=== PATIENT | male | born 1970 | race Caucasian/White ===

== ENCOUNTER 2022-03-11 07:17 | Inpatient (IN) | payer OTHER, SELFPAY ==
[2022-03-11] VITALS (16 sets, daily range): BP systolic 121–163; BP diastolic 51–84; PULSE 75–113; RESP 14–20; TEMP 36.2–37; O2SAT 92–100; BMI 36.1
--- NOTE | ~2022-03-11 | CT_ITS ---
EXAMINATION: CT ABDOMEN AND PELVIS WITHOUT CONTRAST CLINICAL INFORMATION: Renal failure COMPARISON: None TECHNIQUE: Multidetector volumetric imaging was performed from the superior aspect of the liver through the pubic symphysis. Sagittal and coronal reformatted images were obtained on the technologist's workstation. This CT examination was performed using dose optimization techniques as appropriate, variously including the following: *Automated exposure control *Adjustment of mA and/or kV according to patient size (this includes techniques or standardized protocols for targeted exams where dose is matched to indication/reason for exam; i.e. extremities or head) *Use of iterative reconstruction technique DLP: 976 mGy-cm FINDINGS: LUNG BASES: The lung bases are clear. The heart size is normal. LIVER, GALLBLADDER, AND BILIARY TREE: The liver is normal in size, shape, and attenuation. No focal hepatic lesion or biliary ductal dilatation is present. The gallbladder is contracted and not visualized. PANCREAS: Unremarkable. SPLEEN: Unremarkable. ADRENAL GLANDS: Unremarkable. KIDNEYS AND URETERS: The kidneys are normal in size, shape, and attenuation. No hydronephrosis, hydroureter, or calculi seen. No perinephric stranding. BLADDER: The bladder is significantly distended and extending to the level of umbilicus. No obstructive etiology seen. GASTROINTESTINAL TRACT: Scattered stool, gas and contrast seen in the colon without significant distention. The small bowel loops are normal caliber. The appendix is normal caliber. ABDOMINAL WALL: Subtle deformity seen along the left midabdomen from previous intervention. There is a small umbilical hernia containing fat. LYMPH NODES: There are numerous bilateral inguinal prominent lymph nodes with the largest right inguinal lymph node measuring 2.5 cm VASCULAR: Unremarkable. PELVIC VISCERA: There is mild fat stranding and thickening of the pelvic diaphragm. In addition, there is diffuse induration involving posterior rectal wall and right para midline perianal soft tissues. The prostate gland is normal size with scattered central gland calcifications. OSSEOUS STRUCTURES: No aggressive lytic or sclerotic process seen. CT/CT abdomen pelvis wo IV con IMPRESSION: 1. Distended urinary bladder of unknown etiology. Normal prostate gland with central gland calcification. 2. Perianal and perirectal soft tissue wall thickening extending in the para midline gluteal soft tissues. No gas, air fluid level or ulceration seen. Fleischner guidelines were followed.
[2022-03-11 08:10] LABS: Hematocrit 29.9 % (42.0-52.0); Hemoglobin 10.5 g/dl (14.0-18.0); Mean Corpuscular HGB Conc 35.1 g/dl (31.0-36.0); Mean Corpuscular Hemoglobin 30.5 pg (27.0-33.0); Mean Corpuscular Volume 86.9 fL (80.0-98.0); Mean Platelet Volume 11.5 fL (9.4-12.4); Platelet Count 241 X10*3/uL (160-400); Red Blood Count 3.44 X10*6/uL (4.60-5.80); Red Cell Distribution Width 11.5 % (11.0-16.0); White Blood Count 24.6 X10*3/uL (4.8-10.8)
--- NOTE | 2022-03-11 08:14 | ED.GENADULT ---
HPI - General Adult General Chief complaint: General Medical Stated complaint: Hemorrhoid Time Seen by Provider: 03/11/22 07:28 History of Present Illness HPI narrative: Patient is a 51-year-old male presented today with having swelling pain to the right gluteal area. Patient from home. No history of diabetes. No significant past medical history in the past. Related Data Home Medications Medication Instructions Recorded Confirmed multivitamin 1 tab PO DAILY 03/11/22 03/11/22 omega-3 fatty acids 1,000 mg PO TID 03/11/22 03/11/22 Allergies Allergy/AdvReac Type Severity Reaction Status Date / Time No Known Allergies Allergy Verified 03/11/22 07:48 Review of Systems Review of Systems: No fever no chills no chest pain or shortness breath no nausea no vomiting Yes all other systems are reviewed and are negative [facility] Past Medical History Attestation statement: The following information was validated with the patient. Social History Social History Alcohol intake: current Alcohol intake frequency: a few times a week Smoked in Last 30 Days: Yes Use of substances other than those prescribed or required for medical reasons: Yes Substance Use Type: Marijuana Advance Directives: No Advance Directives Information Provided: Yes Physical Exam ED Vital Signs: Vital Signs - 24 hr 03/11/22 07:28 03/11/22 07:32 03/11/22 07:46 Temperature 98.1 F 98.1 F 98.0 F Pulse Rate 113 H 113 H 98 Respiratory Rate 18 18 14 Blood Pressure 121/71 121/71 143/80 H Pulse Oximetry 100 100 99 Oxygen Delivery Method Room Air Room Air Room Air BMI result Body Mass Index 36.1 Appearance: Alert. Oriented X3. No acute distress. Eyes: Pupils equal, round and reactive to light. ENT: Pharynx normal. Neck: Normal inspection. Neck supple. No lymph nodes noted. No crepitus CVS: Normal heart rate and rhythm. Pulses normal. Normal S1 and S2 Respiratory: No respiratory distress. Breath sounds normal. No Wheezing. No rales Abdomen: Soft and nontender. No rigidity. No distention. good BS x4 Skin: Large area of swelling fluctuant mass noted over the right gluteal area. No anal involvement. Pus draining out from different areas. Overall size approximately 10 cm x 6 cm. With surrounding area of induration. Extremities: No lower extremity edema. Neurovascular intact to all extremities. No Lacerations. No Rash Neuro: Oriented X 3. No motor deficit. No sensory deficit. Moving all extermities. No slurred speech Medications Administered Discontinued Medications Generic Name Dose Route Start Last Admin Trade Name Freq PRN Reason Stop Dose Admin Piperacillin Sod/Tazobactam 100 mls @ 200 mls/hr 03/11/22 08:01 03/11/22 10:16 Sod 4.5 gm/ Sodium Chloride IV 03/11/22 08:30 Infused ONCE ONE Infusion Sodium Chloride 1,000 mls @ 999 mls/hr 03/11/22 08:30 03/11/22 10:17 Ns IV 03/11/22 09:30 Infused .Q1H1M NICHOLAS Infusion Insulin Human Regular 10 unit 03/11/22 09:18 03/11/22 09:45 Insulin Regular, Human 100 Unit/Ml 3 Ml Vial IVPUSH 03/11/22 09:19 10 unit ONCE ONE Administration Medical Decision Making MDM Narrative Medical decision making narrative: Patient's case discussed with surgery. Labs ordered. Dr. Valverde is down to see patient. Agree patient needs to go to OR for incision and drainage. Agree with getting CT scan of the pelvis. Currently in stable condition awaiting OR. Cultures were obtained. Will start patient on Zosyn. Patient taken to the OR for emergent surgery. Repeat electrolytes were drawn. In guarded condition. Surgeon aware patient's renal status aware patient is sugar is approximately 700 initially. Lab Data Result diagrams: 03/11/22 07:56 03/11/22 07:56 Labs: Lab Results 03/11/22 03/11/22 03/11/22 Range/Units 07:56 07:56 07:56 WBC 24.6 H (4.8-10.8) X10*3/uL RBC 3.44 L (4.60-5.80) X10*6/uL Hgb 10.5 L (14.0-18.0) g/dl Hct 29.9 L (42.0-52.0) % MCV 86.9 (80.0-98.0) fL MCH 30.5 (27.0-33.0) pg MCHC 35.1 (31.0-36.0) g/dl RDW 11.5 (11.0-16.0) % Plt Count 241 (160-400) X10*3/uL MPV 11.5 (9.4-12.4) fL Immature Gran % (Auto) Cancelled Neut % (Auto) Cancelled Lymph % (Auto) Cancelled [place] % (Auto) Cancelled Eos % (Auto) Cancelled Baso % (Auto) Cancelled Lymph # (Auto) Cancelled [place] # (Auto) Cancelled Eos # (Auto) Cancelled Baso # (Auto) Cancelled Abs Immat Gran (auto) Cancelled Absolute Neuts (auto) Cancelled Absolute Nucleated RBC 0.000 (0.0-0.012) X10*3/uL Nucleated RBC % (auto) 0.0 (0.0-0.2) /100WBC Neutrophils % (Manual) 86 H (45-73) % Band Neutrophils % 6 H (3-5) % Lymphocytes % (Manual) 3 L (20-40) % Monocytes % (Manual) 4 (2-11) % Metamyelocytes % 1 % Abs Neuts (Manual) 22.6 H (2.0-8.3) X10*3/uL Lymphocytes # (Manual) 0.7 L (1.2-4.9) X10*3/uL Monocytes # (Manual) 1.0 (0.1-1.2) X10*3/uL Metamyelocytes # 0.2 X10*3/uL Dohle Bodies PRESENT Platelet Estimate NORMAL (NORMAL) Plt Morphology Comment NORMAL RBC Morphology NOTED Polychromasia 1+ (0-2) /OIF [place] Cells 1+ (0-2) /OIF Sodium 124 L (135-145) mmol/L Potassium 4.6 (3.3-5.1) mmol/L Chloride 93 L (96-108) mmol/L Carbon Dioxide 17 L (22-29) mmol/L Anion Gap 19 (12-20) BUN 33 H (9-16) mg/dL Creatinine 1.98 H (0.5-1.4) mg/dL Estim Creat Clear Calc 53.7 Estimated GFR 36 Random Glucose 693 H* (60-115) mg/dL Estimat Average Glucose 280 mg/dL Hemoglobin A1c % 11.4 % Calcium 8.0 L (8.4-10.2) mg/dL COVID-19 (PERRY) (Negative) COVID-19 Clin Com 03/11/22 Range/Units 08:23 WBC (4.8-10.8) X10*3/uL RBC (4.60-5.80) X10*6/uL Hgb (14.0-18.0) g/dl Hct (42.0-52.0) % MCV (80.0-98.0) fL MCH (27.0-33.0) pg MCHC (31.0-36.0) g/dl RDW (11.0-16.0) % Plt Count (160-400) X10*3/uL MPV (9.4-12.4) fL Immature Gran % (Auto) Neut % (Auto) Lymph % (Auto) [place] % (Auto) Eos % (Auto) Baso % (Auto) Lymph # (Auto) [place] # (Auto) Eos # (Auto) Baso # (Auto) Abs Immat Gran (auto) Absolute Neuts (auto) Absolute Nucleated RBC (0.0-0.012) X10*3/uL Nucleated RBC % (auto) (0.0-0.2) /100WBC Neutrophils % (Manual) (45-73) % Band Neutrophils % (3-5) % Lymphocytes % (Manual) (20-40) % Monocytes % (Manual) (2-11) % Metamyelocytes % % Abs Neuts (Manual) (2.0-8.3) X10*3/uL Lymphocytes # (Manual) (1.2-4.9) X10*3/uL Monocytes # (Manual) (0.1-1.2) X10*3/uL Metamyelocytes # X10*3/uL Dohle Bodies Platelet Estimate (NORMAL) Plt Morphology Comment RBC Morphology Polychromasia /OIF [place] Cells /OIF Sodium (135-145) mmol/L Potassium (3.3-5.1) mmol/L Chloride (96-108) mmol/L Carbon Dioxide (22-29) mmol/L Anion Gap (12-20) BUN (9-16) mg/dL Creatinine (0.5-1.4) mg/dL Estim Creat Clear Calc Estimated GFR Random Glucose (60-115) mg/dL Estimat Average Glucose mg/dL Hemoglobin A1c % % Calcium (8.4-10.2) mg/dL COVID-19 (PERRY) Negative (Negative) COVID-19 Clin Com See Note Critical Care Time Critical Care Time Critical Care Time: Yes Total Critical Care Time: 40 Attestation: I have personally provided 40 minutes of critical care time exclusive of time spent on separately billable procedures. Time includes review of lab data, radiology results, discussion with consultants, and monitoring for potential decompensation. Interventions were performed as documented above Discharge Plan Discharge Clinical Impression: Abscess, Diabetes Patient Disposition: Admitted As Inpatient
[2022-03-11] MEDS: 0.9 % Sodium Chloride 1,000 ML 999 ML IV ×3 (08:29→10:46)
[2022-03-11 08:30] LABS: Band Neutrophils Percent 6 % (3-5); Lymphocytes Absolute Manual 0.7 X10*3/uL (1.2-4.9); Lymphocytes Percent Manual 3 % (20-40); Metamyelocytes Absolute 0.2 X10*3/uL; Metamyelocytes Percent 1 %; Monocytes Percent Manual 4 % (2-11); Neutrophils Absolute Manual 22.6 X10*3/uL (2.0-8.3); Neutrophils Percent Manual 86 % (45-73)
[2022-03-11 08:33] LABS: Burr Cells 1+ (0-2) /OIF; Dohle Bodies PRESENT; Platelet Estimate NORMAL (NORMAL); Platelet Morphology Comment NORMAL; Polychromasia 1+ (0-2) /OIF; RBC Morphology NOTED
--- NOTE | 2022-03-11 08:41 | P.HPGS_ITS ---
History of Present Illness History of Present Illness Date of Service: 03/11/22 <Winter Mondragon PA-C - Last Filed: 03/11/22 09:26> 03/11/22 <Yoni Valverde MD - Last Filed: 03/11/22 15:06> Chief complaint: abscess of gluteal cleft <Winter Mondragon PA-C - Last Filed: 03/11/22 09:26> Narrative: River Luque is a 51 year old healthy male who presented to the ED with complaints of buttocks pain. This started 4-5 days ago and he first noticed when it was painful to sit. He thought he had hemorrhoids and therefore had been putting desitin cream on the area. He noted a red, creamy discharge from the area. He had low grade fevers at home and had been taking ibuprofen. He came in due to the persistent pain and his work told him he needed to be evaluated. He denies previous similar episodes. He denies chills, nausea, vomiting, diarrhea or change in bowel habits. In the ED, he was found to be tachycardic with a leukocytosis of 24.6 and a large fluctuant area of the gluteal cleft. Surgery was consulted for I&D. He denies any known medical problems including diabetes. He last had adan sarah and water at 6am. Last solid intake was last night. <Winter Mondragon PA-C - Last Filed: 03/11/22 09:26> Review of Systems Constitutional: Constitutional: Denies chills, Reports fever(s) and Denies malaise <Winter Mondragon PA-C - Last Filed: 03/11/22 09:26> ENT: Denies dizziness <Winter Mondragon PA-C - Last Filed: 03/11/22 09:26> Cardiovascular: Cardiovascular: Denies chest pain, Denies palpitations and Denies dyspnea <JAVI Yo Last Filed: 03/11/22 09:26> Respiratory: Respiratory: Denies cough and Denies dyspnea <Winter Mondragon PA-C - Last Filed: 03/11/22 09:26> Gastrointestinal: Gastrointestinal: Denies change in bowel habits, Denies diarrhea, Denies nausea and Denies vomiting <Winter Mondragon PA-C Last Filed: 03/11/22 09:26> Genitourinary: Genitourinary: Denies hematuria and Denies dysuria <Winter Mondragon PA-C Last Filed: 03/11/22 09:26> Integumentary/Breasts: Skin/Breast: Denies rash <JAVI Yo Last Filed: 03/11/22 09:26> Neurologic: Denies dizziness <Winter Mondragon PA-C Last Filed: 03/11/22 09:26> Endocrine: Endocrine: Denies palpitations <Winter Mondragon PA-C Last Filed: 03/11/22 09:26> [facility] Surgical History Surgical History: Surgical History (Updated 03/11/22 @ 10:41 by Jeanie Campbell) [place] teeth removed <JAVI Yo Last Filed: 03/11/22 09:26> Social History Social History: Social History Alcohol intake: current Alcohol intake frequency: a few times a month Patient Tobacco Use Status: Former Tobacco user Quit Date: 2009 Tobacco use type: Cigarette Smoked in Last 30 Days: No Use of substances other than those prescribed or required for medical reasons: Yes Substance Use Type: Marijuana Substance Use Frequency: Weekly Are you DNR?: No Advance Directives: No Advance Directives Information Provided: Yes <JAVI Yo Last Filed: 03/11/22 09:26> Meds Allergies/Adverse reactions: Allergies Allergy/AdvReac Type Severity Reaction Status Date / Time No Known Allergies Allergy Verified 03/11/22 07:48 <JAVI Yo Last Filed: 03/11/22 09:26> Active Medications: Current Medications Sodium Chloride (Ns) 1,000 mls @ 999 mls/hr IV .Q1H1M NICHOLAS Stop: 03/11/22 09:30 Last Admin: 03/11/22 08:29 Dose: 999 mls/hr <JAVI Yo Last Filed: 03/11/22 09:26> Home medications: Home Medications Medication Instructions Recorded Confirmed Last Taken Type Tylenol 1 tab PO DAILY PRN Pain 03/11/22 03/11/22 03/11/22 06:00 History multivitamin 1 tab PO DAILY 03/11/22 03/11/22 Unknown History omega-3 fatty acids 1,000 mg PO TID 03/11/22 03/11/22 Unknown History <Winter Mondragon PA-C Last Filed: 03/11/22 09:26> Physical Exam Vital Signs: Vital Signs: Last Vital Signs Temp 98.0 F 03/11/22 07:46 Pulse 98 03/11/22 07:46 Resp 14 03/11/22 07:46 BP 143/80 H 03/11/22 07:46 Pulse Ox 99 03/11/22 07:46 O2 Del Method 03/11/22 07:46 BMI result Body Mass Index 36.1 <Winter Mondragon PA-C Last Filed: 03/11/22 09:26> Const: General: no acute distress, alert and other (appears in pain) <Winter Mondragon PA-C Last Filed: 03/11/22 09:26> Orientation/consciousness: patient oriented x3 <STUART Yo Last Filed: 03/11/22 09:26> HEENT: Head: Yes normocephalic and Yes atraumatic <STUART Yo Last Filed: 03/11/22 09:26> Eyes: Sclerae: sclerae normal <Winter Mondragon PA-C Last Filed: 03/11/22 09:26> Resp: Effort & Inspection: normal respiratory effort <Winter Mondragon PA-C Last Filed: 03/11/22 09:26> Cardio: Rate: tachycardic <Winter Mondragon PA-C Last Filed: 03/11/22 09:26> Rhythm: regular rhythm <Winter Mondragon PA-C Last Filed: 03/11/22 09:26> GI: Inspection: No distended <JAVI Yo Last Filed: 03/11/22 09:26> Palpation (GI): Soft to palpation and nontender <JAVI Yo Last Filed: 03/11/22 09:26> Back/Spine/Pelvis: Other: large fluctuance to the right mid gluteal cleft with overlying necrotic skin, surrounding induration and mild erythema, area significantly tender, purulent drainage noted from small opening at superior-medial aspect; no crepitus appreciated; does not appear to extend to rectum/perineum <JAVI Yo Last Filed: 03/11/22 09:26> Skin: Other: no rashes <JAVI Yo Last Filed: 03/11/22 09:26> Neuro: General: patient oriented x3 and moves all extremities <JAVI Yo Last Filed: 03/11/22 09:26> Extrem: General: Yes no clubbing, cyanosis or edema <JAVI Yo Last Filed: 03/11/22 09:26> Results Results Labs: Short CBC 03/11/22 Range/Units 07:56 WBC 24.6 H (4.8-10.8) X10*3/uL Hgb 10.5 L (14.0-18.0) g/dl Hct 29.9 L (42.0-52.0) % Plt Count 241 (160-400) X10*3/uL <JAVI Yo Last Filed: 03/11/22 09:26> Assessment and Plan (1) Abscess, gluteal cleft: Status: Acute <JAVI Yo Last Filed: 03/11/22 09:26> pt seen earlier this AM he describes left buttock swelling and pain for 5 days, progressively worse he denies being a diabetic does not see any PCP denies fever or chills exam shows large induration and tenderness right perirectal area and buttock with tenderness, c/w large abscess need to do emergent I and D in OR, possible debridement lactate normal but potentially septic Blood sugar 683, WBC 23 I reviewed with him the technique of EUA, I and D, possible debridement I explained risks including but not limited to bleeding, infections, large open wound, further surgeries, incontinence He has given consent <Yoni Valverde MD - Last Filed: 03/11/22 15:06> 51 year old male with no known PMH who presented with pain of buttocks found to have large fluctuant collection of gluteal cleft with purulent drainage consistent with abscess. He has a significant leukocytosis and was tachycardic upon arrival. Has received IVF bolus in ED with resolution of tachycardia. The patient was admitted to the surgical service and it was recommended to proceed with I&D of the abscess of the gluteal cleft in the operating room under anesthesia due to its size. Risks and benefits were discussed with the patient including bleeding, poor healing, inherent risks of anesthesia. He has been started on IVF, IV zosyn, analgesics PRN and kept NPO. CT scan of the pelvis has been ordered and will await results prior to the procedure. He has been added onto the OR schedule for today. He agrees to proceed with surgery and is comfortable with plan. Also discussed he will likely need 1-2 days of IV abx pending improvement of the area. <Winter Mondragon PA-C - Last Filed: 03/11/22 09:26> Quality Stroke Does the patient have a stroke diagnosis?: No <Winter Mondraogn PA-C - Last Filed: 03/11/22 09:26> VTE Prior VTE?: No <Winter Mondragon PA-C - Last Filed: 03/11/22 09:26> VTE Risk Level:: Surgical - low <Winter Mondragon PA-C - Last Filed: 03/11/22 09:26> VTE Device Contraindication: N/A - Device Ordered <Winter Mondragon PA-C - Last Filed: 03/11/22 09:26> VTE Drug Contraindication: Treatment Not Indicated <Winter Mondragon PA-C - Last Filed: 03/11/22 09:26> Procedures Date of Service Date of Service: 03/11/22 <Winter Mondragon PA-C - Last Filed: 03/11/22 09:26>
[2022-03-11 08:46] LABS: COVID-19 Test Negative (Negative); IDNOW Serial# 16C4AD1C
[2022-03-11 08:53] LABS: Anion Gap 19 (12-20); Blood Urea Nitrogen 33 mg/dL (9-16); Carbon Dioxide 17 mmol/L (22-29); Chloride 93 mmol/L (96-108); Creatinine Clr Calc Pharmacy 53.7; Estimated Glomerular Filt Rate 36; Glucose Random 693 mg/dL (60-115); Potassium 4.6 mmol/L (3.3-5.1); Sodium 124 mmol/L (135-145)
[2022-03-11 09:00] LABS: Lactic Acid 1.2 mmol/L (0.5-2.0)
[2022-03-11] MEDS: Piperacillin Sodium/Tazobactam 4.5 GM in 0.9 % Sodium Chloride 100 ML IV (09:14)
[2022-03-11] MEDS: Insulin Regular, Human 100 UNIT/ML 3 ML VIAL 10 UNIT IVPUSH (09:45)
[2022-03-11 10:15] LABS: Estimated Average Glucose 280 mg/dL; Hemoglobin A1c % 11.4 %
[2022-03-11 10:16] LABS: VBG Base Excess -5.1 mmol/L; VBG HCO3 19 mmol/L (22-26); VBG pCO2 31 mmHg; VBG pH 7.38 (7.32-7.43); VBG pO2 72 mmHg
[2022-03-11 10:16] LABS: Venous Blood Gas Refer to POC result
--- NOTE | 2022-03-11 10:32 | PHA.MEDREC ---
Pharmacy Consult ? Medication Reconciliation Pharmacy has completed the medication reconciliation.
[2022-03-11 10:37] LABS: Glucose, Whole Blood 389 mg/dL (60-115)
[2022-03-11 10:37] LABS: Acetone, serum QL Negative (Negative)
--- NOTE | 2022-03-11 10:50 | PM.EVENT ---
Event Note Date of Service: 03/11/22 Event Note: CT rreviewed with Dr. Bright - no obvious fluid collection, no necrotizing process but with severe induration on right perirectal area, with nonviable looking skin will need to proceed with exam under anesthesia, I and D and possible debridement pt with undiagnosed DM - will consult Hospitalist he will need IV abx lactate normal explained plan to pt
[2022-03-11 10:53] LABS: Anion Gap 15 (12-20); Blood Urea Nitrogen 32 mg/dL (9-16); Calcium 8.2 mg/dL (8.4-10.2); Carbon Dioxide 21 mmol/L (22-29); Chloride 95 mmol/L (96-108); Creatinine Clr Calc Pharmacy 61.8; Estimated Glomerular Filt Rate 42; Glucose Random 567 mg/dL (60-115); Sodium 127 mmol/L (135-145)
--- NOTE | 2022-03-11 10:53 | HO.ANESPROP2 ---
[facility] Active Problems Active Problems: All Active Problems (Updated 03/11/22 @ 10:34 by Em Hughes MD) Abscess (Acute) Abscess, gluteal cleft (Acute) Diabetes (Acute) Surgical History Surgical History (Updated 03/11/22 @ 10:41 by Jeanie Campbell) [place] teeth removed Social History Social History Alcohol intake: current Alcohol intake frequency: a few times a month Patient Tobacco Use Status: Former Tobacco user Quit Date: 2009 Tobacco use type: Cigarette Smoked in Last 30 Days: No Use of substances other than those prescribed or required for medical reasons: Yes Substance Use Type: Marijuana Substance Use Frequency: Weekly Are you DNR?: No Advance Directives: No Advance Directives Information Provided: Yes Meds Allergies Allergy/AdvReac Type Severity Reaction Status Date / Time No Known Allergies Allergy Verified 03/11/22 07:48 Active Medications: Current Medications Acetaminophen (Acetaminophen 325 Mg Tablet) 650 mg PO Q6H PRN PRN Reason: Pain, Mild (Pain Scale 1-3) Dextrose (Dextrose 50 % 25 Gm/50 Ml Syringe) 25 gm IVPUSH Q15M PRN; Protocol PRN Reason: per Hypoglycemia Standing Ord. Glucose (Glucose Gel 15 Gm Gel..Gram.) 15 gm PO Q15M PRN; Protocol PRN Reason: per Hypoglycemia Standing Ord. Hydromorphone HCl (Hydromorphone Hcl 1 Mg/Ml Syringe) 0.5 mg IVPUSH Q4H PRN; Protocol PRN Reason: Pain, Severe (Pain Scale 7-10) Piperacillin Sod/Tazobactam (Sod 3.375 gm/ Sodium Chloride) 50 mls @ 100 mls/hr IV Q6H [facility] Sodium Chloride (Ns) 1,000 mls @ 100 mls/hr IVCONT .Q10H [facility] Insulin Human Lispro (Insulin Lispro 100 Unit/Ml 3 Ml Vial) 0 unit SUBCUT QIDACHS [facility]; Protocol Ondansetron HCl (Ondansetron Hcl 4 Mg/2 Ml Vial) 4 mg IVPUSH Q6H PRN PRN Reason: Nausea Ondansetron HCl (Ondansetron Hcl 4 Mg/2 Ml Vial) 4 mg IVPUSH ONCE PRN PRN Reason: Nausea and Vomiting Oxycodone HCl (Oxycodone Hcl Immed Release 5 Mg Tablet) 5 mg PO Q4H PRN PRN Reason: Pain, Moderate (Pain Scale 4-6 Oxycodone HCl (Oxycodone Hcl Immed Release 5 Mg Tablet) 5 mg PO ONCE PRN PRN Reason: Pain, Severe (Pain Scale 7-10) Sodium Chloride (0.9 % Sodium Chloride Flush 3 Ml Syringe) 3 ml IVFLUSH QSHIFT [facility] Home Medications Medication Instructions Recorded Confirmed Last Taken Type multivitamin 1 tab PO DAILY 03/11/22 03/11/22 Unknown History omega-3 fatty acids 1,000 mg PO TID 03/11/22 03/11/22 Unknown History Exam Exam Date and Time: March 11, 2022 1053 Height,Weight and Vital Signs: Height 5 ft 8 in Weight 107.955 kg Last Vital Signs Temp 98.6 F 03/11/22 10:36 Pulse 95 03/11/22 10:36 Resp 16 03/11/22 10:36 BP 161/78 H 03/11/22 10:36 Pulse Ox 98 03/11/22 10:36 O2 Del Method 03/11/22 10:36 Pertinent Lab Results Pertinent Lab Results: Laboratory Tests 03/11/22 03/11/22 03/11/22 07:56 07:56 07:56 WBC 24.6 H RBC 3.44 L Hgb 10.5 L Hct 29.9 L MCV 86.9 MCH 30.5 MCHC 35.1 RDW 11.5 Plt Count 241 MPV 11.5 Immature Gran % (Auto) Cancelled Neut % (Auto) Cancelled Lymph % (Auto) Cancelled [place] % (Auto) Cancelled Eos % (Auto) Cancelled Baso % (Auto) Cancelled Lymph # (Auto) Cancelled [place] # (Auto) Cancelled Eos # (Auto) Cancelled Baso # (Auto) Cancelled Abs Immat Gran (auto) Cancelled Absolute Neuts (auto) Cancelled Absolute Nucleated RBC 0.000 Nucleated RBC % (auto) 0.0 Neutrophils % (Manual) 86 H Band Neutrophils % 6 H Lymphocytes % (Manual) 3 L Monocytes % (Manual) 4 Metamyelocytes % 1 Abs Neuts (Manual) 22.6 H Lymphocytes # (Manual) 0.7 L Monocytes # (Manual) 1.0 Metamyelocytes # 0.2 Dohle Bodies PRESENT Platelet Estimate NORMAL Plt Morphology Comment NORMAL RBC Morphology NOTED Polychromasia 1+ (0-2) [place] Cells 1+ (0-2) VBG pH VBG pCO2 VBG pO2 VBG HCO3 VBG O2 Saturation VBG Base Excess Sodium 124 L Potassium 4.6 Chloride 93 L Carbon Dioxide 17 L Anion Gap 19 BUN 33 H Creatinine 1.98 H Estim Creat Clear Calc 53.7 Estimated GFR 36 POC Glucose Random Glucose 693 H* Estimat Average Glucose 280 Hemoglobin A1c % 11.4 Lactic Acid Calcium 8.0 L Acetone, Qual COVID-19 (PERRY) COVID-19 Clin Com 03/11/22 03/11/22 03/11/22 08:23 08:42 10:03 WBC RBC Hgb Hct MCV MCH MCHC RDW Plt Count MPV Immature Gran % (Auto) Neut % (Auto) Lymph % (Auto) [place] % (Auto) Eos % (Auto) Baso % (Auto) Lymph # (Auto) [place] # (Auto) Eos # (Auto) Baso # (Auto) Abs Immat Gran (auto) Absolute Neuts (auto) Absolute Nucleated RBC Nucleated RBC % (auto) Neutrophils % (Manual) Band Neutrophils % Lymphocytes % (Manual) Monocytes % (Manual) Metamyelocytes % Abs Neuts (Manual) Lymphocytes # (Manual) Monocytes # (Manual) Metamyelocytes # Dohle Bodies Platelet Estimate Plt Morphology Comment RBC Morphology Polychromasia [place] Cells VBG pH VBG pCO2 VBG pO2 VBG HCO3 VBG O2 Saturation VBG Base Excess Sodium Potassium Chloride Carbon Dioxide Anion Gap BUN Creatinine Estim Creat Clear Calc Estimated GFR POC Glucose Random Glucose Estimat Average Glucose Cancelled Hemoglobin A1c % Cancelled Lactic Acid 1.2 Calcium Acetone, Qual COVID-19 (PERRY) Negative COVID-19 Clin Com See Note 03/11/22 03/11/22 03/11/22 10:03 10:12 10:34 WBC RBC Hgb Hct MCV MCH MCHC RDW Plt Count MPV Immature Gran % (Auto) Neut % (Auto) Lymph % (Auto) [place] % (Auto) Eos % (Auto) Baso % (Auto) Lymph # (Auto) [place] # (Auto) Eos # (Auto) Baso # (Auto) Abs Immat Gran (auto) Absolute Neuts (auto) Absolute Nucleated RBC Nucleated RBC % (auto) Neutrophils % (Manual) Band Neutrophils % Lymphocytes % (Manual) Monocytes % (Manual) Metamyelocytes % Abs Neuts (Manual) Lymphocytes # (Manual) Monocytes # (Manual) Metamyelocytes # Dohle Bodies Platelet Estimate Plt Morphology Comment RBC Morphology Polychromasia [place] Cells VBG pH 7.38 VBG pCO2 31 VBG pO2 72 VBG HCO3 19 L VBG O2 Saturation 91.0 VBG Base Excess -5.1 Sodium Potassium Chloride Carbon Dioxide Anion Gap BUN Creatinine Estim Creat Clear Calc Estimated GFR POC Glucose 389 H* Random Glucose Estimat Average Glucose Hemoglobin A1c % Lactic Acid Calcium Acetone, Qual Negative COVID-19 (PERRY) COVID-19 Clin Com
--- NOTE | 2022-03-11 10:54 | PC.NURSE ---
LAB CALLED, REPORTED GLUCOSE OF 567. OR CALLED AND MADE AWARE. SPOKE WITH ASHLEY AT THE MAIN SURGERY DESK NUMBER
--- NOTE | 2022-03-11 11:04 | PC.NURSE ---
Patient states he drank 8oz of adan sarah at 0600 this AM with his pills. Denies eating any food since midnight. Dr. Cannon made aware. Patients blood sugar taken at 1034 in preop, results 389. Dr. Cannon made aware. No new orders at this time.
--- NOTE | 2022-03-11 11:07 | P.CONAN_ITS ---
[facility] Active Problems Active Problems: All Active Problems (Updated 03/11/22 @ 10:34 by Em Hughes MD) Abscess (Acute) Abscess, gluteal cleft (Acute) Diabetes (Acute) Family History Family history of problems with anesthesia: No Surgical History Surgical History (Updated 03/11/22 @ 10:41 by Jeanie Campbell) [place] teeth removed History of Problems with Anesthesia: No Social History Social History Alcohol intake: current Alcohol intake frequency: a few times a month Patient Tobacco Use Status: Former Tobacco user Quit Date: 2009 Tobacco use type: Cigarette Smoked in Last 30 Days: No Use of substances other than those prescribed or required for medical reasons: Yes Substance Use Type: Marijuana Substance Use Frequency: Weekly Are you DNR?: No Advance Directives: No Advance Directives Information Provided: Yes Meds Allergies Allergy/AdvReac Type Severity Reaction Status Date / Time No Known Allergies Allergy Verified 03/11/22 07:48 Active Medications: Current Medications Acetaminophen (Acetaminophen 325 Mg Tablet) 650 mg PO Q6H PRN PRN Reason: Pain, Mild (Pain Scale 1-3) Dextrose (Dextrose 50 % 25 Gm/50 Ml Syringe) 25 gm IVPUSH Q15M PRN; Protocol PRN Reason: per Hypoglycemia Standing Ord. Glucose (Glucose Gel 15 Gm Gel..Gram.) 15 gm PO Q15M PRN; Protocol PRN Reason: per Hypoglycemia Standing Ord. Hydromorphone HCl (Hydromorphone Hcl 1 Mg/Ml Syringe) 0.5 mg IVPUSH Q4H PRN; Protocol PRN Reason: Pain, Severe (Pain Scale 7-10) Piperacillin Sod/Tazobactam (Sod 3.375 gm/ Sodium Chloride) 50 mls @ 100 mls/hr IV Q6H [facility] Sodium Chloride (Ns) 1,000 mls @ 100 mls/hr IVCONT .Q10H [facility] Insulin Human Lispro (Insulin Lispro 100 Unit/Ml 3 Ml Vial) 0 unit SUBCUT QIDACHS NICHOLAS; Protocol Ondansetron HCl (Ondansetron Hcl 4 Mg/2 Ml Vial) 4 mg IVPUSH Q6H PRN PRN Reason: Nausea Ondansetron HCl (Ondansetron Hcl 4 Mg/2 Ml Vial) 4 mg IVPUSH ONCE PRN PRN Reason: Nausea and Vomiting Oxycodone HCl (Oxycodone Hcl Immed Release 5 Mg Tablet) 5 mg PO Q4H PRN PRN Reason: Pain, Moderate (Pain Scale 4-6 Oxycodone HCl (Oxycodone Hcl Immed Release 5 Mg Tablet) 5 mg PO ONCE PRN PRN Reason: Pain, Severe (Pain Scale 7-10) Sodium Chloride (0.9 % Sodium Chloride Flush 3 Ml Syringe) [facility] Medication Instructions Recorded Confirmed Last Taken Type Tylenol 1 tab PO DAILY PRN Pain 03/11/22 03/11/22 03/11/22 06:00 History multivitamin 1 tab PO DAILY 03/11/22 03/11/22 Unknown History omega-3 fatty acids 1,000 mg PO TID 03/11/22 03/11/22 Unknown History Exam Exam Date and Time: March 11, 2022 1107 Height,Weight and Vital Signs: Height 5 ft 8 in Weight 107.955 kg Last Vital Signs Temp 98.6 F 03/11/22 10:36 Pulse 95 03/11/22 10:36 Resp 16 03/11/22 10:36 BP 161/78 H 03/11/22 10:36 Pulse Ox 98 03/11/22 10:36 O2 Del Method 03/11/22 10:36 Pertinent Lab Results Pertinent Lab Results: Laboratory Tests 03/11/22 03/11/22 03/11/22 07:56 07:56 07:56 WBC 24.6 H RBC 3.44 L Hgb 10.5 L Hct 29.9 L MCV 86.9 MCH 30.5 MCHC 35.1 RDW 11.5 Plt Count 241 MPV 11.5 Immature Gran % (Auto) Cancelled Neut % (Auto) Cancelled Lymph % (Auto) Cancelled [place] % (Auto) Cancelled Eos % (Auto) Cancelled Baso % (Auto) Cancelled Lymph # (Auto) Cancelled [place] # (Auto) Cancelled Eos # (Auto) Cancelled Baso # (Auto) Cancelled Abs Immat Gran (auto) Cancelled Absolute Neuts (auto) Cancelled Absolute Nucleated RBC 0.000 Nucleated RBC % (auto) 0.0 Neutrophils % (Manual) 86 H Band Neutrophils % 6 H Lymphocytes % (Manual) 3 L Monocytes % (Manual) 4 Metamyelocytes % 1 Abs Neuts (Manual) 22.6 H Lymphocytes # (Manual) 0.7 L Monocytes # (Manual) 1.0 Metamyelocytes # 0.2 Dohle Bodies PRESENT Platelet Estimate NORMAL Plt Morphology Comment NORMAL RBC Morphology NOTED Polychromasia 1+ (0-2) Bigler Cells 1+ (0-2) VBG pH VBG pCO2 VBG pO2 VBG HCO3 VBG O2 Saturation VBG Base Excess Sodium 124 L Potassium 4.6 Chloride 93 L Carbon Dioxide 17 L Anion Gap 19 BUN 33 H Creatinine 1.98 H Estim Creat Clear Calc 53.7 Estimated GFR 36 POC Glucose Random Glucose 693 H* Estimat Average Glucose 280 Hemoglobin A1c % 11.4 Lactic Acid Calcium 8.0 L Acetone, Qual COVID-19 (PERRY) COVID-19 [email or web address] 03/11/22 03/11/22 03/11/22 08:23 08:42 10:03 WBC RBC Hgb Hct MCV MCH MCHC RDW Plt Count MPV Immature Gran % (Auto) Neut % (Auto) Lymph % (Auto) [place] % (Auto) Eos % (Auto) Baso % (Auto) Lymph # (Auto) [place] # (Auto) Eos # (Auto) Baso # (Auto) Abs Immat Gran (auto) Absolute Neuts (auto) Absolute Nucleated RBC Nucleated RBC % (auto) Neutrophils % (Manual) Band Neutrophils % Lymphocytes % (Manual) Monocytes % (Manual) Metamyelocytes % Abs Neuts (Manual) Lymphocytes # (Manual) Monocytes # (Manual) Metamyelocytes # Dohle Bodies Platelet Estimate Plt Morphology Comment RBC Morphology Polychromasia Jones Cells VBG pH VBG pCO2 VBG pO2 VBG HCO3 VBG O2 Saturation VBG Base Excess Sodium Potassium Chloride Carbon Dioxide Anion Gap BUN Creatinine Estim Creat Clear Calc Estimated GFR POC Glucose Random Glucose Estimat Average Glucose Cancelled Hemoglobin A1c % Cancelled Lactic Acid 1.2 Calcium Acetone, Qual COVID-19 (PERRY) Negative COVID-19 [email or web address] See Note 03/11/22 03/11/22 03/11/22 10:03 10:12 10:34 WBC RBC Hgb Hct MCV MCH MCHC RDW Plt Count MPV Immature Gran % (Auto) Neut % (Auto) Lymph % (Auto) [place] % (Auto) Eos % (Auto) Baso % (Auto) Lymph # (Auto) [place] # (Auto) Eos # (Auto) Baso # (Auto) Abs Immat Gran (auto) Absolute Neuts (auto) Absolute Nucleated RBC Nucleated RBC % (auto) Neutrophils % (Manual) Band Neutrophils % Lymphocytes % (Manual) Monocytes % (Manual) Metamyelocytes % Abs Neuts (Manual) Lymphocytes # (Manual) Monocytes # (Manual) Metamyelocytes # Dohle Bodies Platelet Estimate Plt Morphology Comment RBC Morphology Polychromasia [place] Cells VBG pH 7.38 VBG pCO2 31 VBG pO2 72 VBG HCO3 19 L VBG O2 Saturation 91.0 VBG Base Excess -5.1 Sodium 127 L Potassium 4.0 Chloride 95 L Carbon Dioxide 21 L Anion Gap 15 BUN 32 H Creatinine 1.72 H Estim Creat Clear Calc 61.8 Estimated GFR 42 POC Glucose 389 H* Random Glucose 567 H* Estimat Average Glucose Hemoglobin A1c % Lactic Acid Calcium 8.2 L Acetone, Qual Negative COVID-19 (PERRY) COVID-19 Clin Com Airway Mallampati Class: III TM Dist: >3cm Neck ROM: Full Loose/Missing/Broken Teeth: No Heart: rrr Lungs: clear Assessment and Plan Final Anesthetic Review Family History of Problems with Anesthesia: No History of Problems with Anesthesia: No NPO: Yes ASA Class: III and Emergency Final Preanesthetic Review: No Changes in Pt Med Stat, Meds/Allgs Chart Reviewed, Consent Obtained/Reviewed and Anes Risks/Benef Reviewed Patient Risk: Intermediate Procedure Risk: Low Anesthetic Plan Anesthetic Plan: GA Disposition: Standard PACU
--- NOTE | 2022-03-11 12:12 | W.PM.OPN ---
Operative Note Operative Note Date of Service: 03/11/22 Narrative: Preop diagnosis: Perirectal abscess, right Postop diagnosis: Perirectal abscess, right side, with horseshoe extension to the left, with necrotizing infection of the fat Procedure: Exam under anesthesia, excisional debridement the right and perirectal areas, I and D of abscess Surgeon: Yoni Valverde MD printing bindery assistant: NAFISA Mondragon The patient is a 51-year-old male admitted for right perirectal pain, swelling drainage. Examination showed a large induration on the right the rectal area with skin that appeared to be necrotic. He had a white count of 24 and his blood sugar was 683. I explained to we needed to proceed with exam under anesthesia, I&D and likely debridement in the OR. He understood the technique of the procedure as well as the risks, benefits, and alternatives He was brought to the operating room placed in prone purnima-knife position under general anesthesia via endotracheal tube. The left buttock was retracted away from the midline with wide tape to achieve optimal exposure. There was note of a large induration on the right pericolic area buttock, with note of necrotic skin in 1 area. A surgical time-out had been done. This areas prepped and draped in the usual sterile fashion. The patient had received scheduled antibiotics you I proceeded to therefore use a blade 10 to excise this necrotic looking skin. This opened up into an abscess cavity. Large amounts of pus was drained. Nonviable tissue consistent with necrotizing process of the subcutaneous fat was immediately noticed as well. I proceeded to excise this nonviable skin and soft tissue to unroof this cavity. This included deep subcutaneous fat. This was done using Cueto scissors. The abscess cavity seemed to extend as a horseshoe posteriorly into the left sides. I therefore made a counter incision on the left dhruv anal area posteriorly to make sure that we had drained all collections. Cultures of the purulent fluid was taken. I inserted the Selena Eugene retractor to examine the anal canal. There was no obvious fistulous sinus within the anal canal. There is no inflammatory process nor induration. I then proceeded to continue to sharply excise nonviable tissue within the abscess cavity. This was done until viable and healthy looking tissue was seen. I then irrigated the entire cavity using the [employer] labor and employment paralegal. I examined the wound surface and this appeared to have good granulation tissue. The cavity measured about 8.5 cm long and 3.5 cm wide and involved the deep subcutaneous fat of the ischial fossa. We applied a Kerlix roll soaked in Betadine as a packing. Dressings were placed. I infiltrated the area surrounding this with Marcaine 0.5% for postop all TANNER. The procedure was completed . He tolerated procedure well. There were no immediate complications. Initial and final counts of sponges and instruments were correct. 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
--- NOTE | 2022-03-11 12:26 | P.BOP_ITS ---
Brief Operative Note Date of Service: 03/11/22 <Winter Mondragon PA-C - Last Filed: 03/11/22 12:28> Pre-op diagnosis: perirectal abscess <Winter Mondragon PA-C - Last Filed: 03/11/22 12:28> Post-op diagnosis: same (horseshoe, necrotizing soft tissue infection) <Winter Mondragon PA-C - Last Filed: 03/11/22 12:28> Procedure: EUA, incision and drainage of perirectal abscess, debridement of soft tissue <Winter Mondragon PA-C - Last Filed: 03/11/22 12:28> Surgeon: DASIA JAVIER MD <Winter Mondragon PA-C - Last Filed: 03/11/22 12:28> Anesthesia: GETA <Winter Mondragon PA-C - Last Filed: 03/11/22 12:28> Was an Internal Communications Manager used for this Procedure?: Yes <Winter Mondragon PA-C - Last Filed: 03/11/22 12:28> No <Dasia Javier MD - Last Filed: 03/11/22 12:45> Internal Communications Manager: Winter Mondragon <Winter Mondragon PA-C - Last Filed: 03/11/22 12:28> Estimated blood loss (mL): 10 <Winter Mondragon PA-C - Last Filed: 03/11/22 12:28> Pathology: other (abscess cultures; abscess soft tissue) <Winter Mondragon PA-C - Last Filed: 03/11/22 12:28> Condition: stable <Winter Mondragon PA-C - Last Filed: 03/11/22 12:28> Disposition: PACU <Winter Mondragon PA-C - Last Filed: 03/11/22 12:28>
[2022-03-11 12:30] LABS: Glucose, Whole Blood 357 mg/dL (60-115)
[2022-03-11 14:13] LABS: Glucose, Whole Blood 411 mg/dL (60-115)
--- NOTE | 2022-03-11 15:04 | PM.EVENT ---
Event Note Date of Service: 03/11/22 Event Note: underwent I and D and debridement earlier looks well has good pain cntrol not septic looking dressings dry IV abx wound care Hospitalist consult for DM, undiagnosed doing well postop
[2022-03-11] MEDS: Insulin Lispro 100 UNIT/ML 3 ML VIAL SUBCUT ×4 (15:17→20:52)
[2022-03-11] MEDS: Piperacillin Sodium/Tazobactam 3.375 GM in 0.9 % Sodium Chloride 50 ML IV ×2 (15:27→21:53)
[2022-03-11] MEDS: 0.9 % Sodium Chloride 1,000 ML 100 ML IVCONT (15:27)
[2022-03-11 16:10] LABS: Glucose, Whole Blood 416 mg/dL (60-115)
--- NOTE | 2022-03-11 16:14 | HO.PM.IMCN ---
History of Present Illness Data of Consult Service Date: 03/11/22 Requesting physician: Winter Mondragon Primary Care Provider: None Physician HPI Reason for consult: new onset diabetes Patient without any significant medical history admitted to surgery for gluteal abscess with consult placed for management of new onset type 2 diabetes. The patient does endorse polyuria and polydipsia that has been ongoing for some time as well as occasional blurred vision. Does have family history of type 2 diabetes. He also appears to have chronic kidney disease. A1c 11.2%. Glucose on admission 567. Current POC glucose 416. Review of Systems Review of Systems: General: No fevers, malaise, unintentional weight loss HEENT: + Blurred vision Cardiovascular: No chest pain, palpitations, or leg edema Respiratory: No shortness of breath, wheezing, cough GI: No abdominal pain, nausea, vomiting, diarrhea, constipation : No dysuria, hematuria Endo: + polyuria, + polydipsia Skin: +pitted nails PMFSH Medical History (Updated 03/11/22 @ 16:18 by NAFISA Woods) Hypertension Type 2 diabetes Family History (Updated 03/11/22 @ 16:18 by NAFISA Woods) Mother Diabetes Maternal Uncle Diabetes Surgical History Ruby teeth removed Social History Alcohol intake: current Alcohol intake frequency: a few times a month Patient Tobacco Use Status: Former Tobacco user Quit Date: 2009 Tobacco use type: Cigarette Smoked in Last 30 Days: No Use of substances other than those prescribed or required for medical reasons: Yes Substance Use Type: Marijuana Substance Use Frequency: Weekly Are you DNR?: No Advance Directives: No Advance Directives Information Provided: Yes Meds Allergies Allergy/AdvReac Type Severity Reaction Status Date / Time No Known Allergies Allergy Verified 03/11/22 07:48 Active Medications: Current Medications Acetaminophen (Acetaminophen 325 Mg Tablet) 650 mg PO Q6H PRN PRN Reason: Pain, Mild (Pain Scale 1-3) Dextrose (Dextrose 50 % 25 Gm/50 Ml Syringe) 25 gm IVPUSH Q15M PRN; Protocol PRN Reason: per Hypoglycemia Standing Ord. Glucose (Glucose Gel 15 Gm Gel..Gram.) 15 gm PO Q15M PRN; Protocol PRN Reason: per Hypoglycemia Standing Ord. Hydromorphone HCl (Hydromorphone Hcl 1 Mg/Ml Syringe) 0.5 mg IVPUSH Q4H PRN; Protocol PRN Reason: Pain, Severe (Pain Scale 7-10) Piperacillin Sod/Tazobactam (Sod 3.375 gm/ Sodium Chloride) 50 mls @ 100 mls/hr IV Q6H [facility] Last Admin: 03/11/22 15:27 Dose: 100 mls/hr Sodium Chloride (Ns) 1,000 mls @ 100 mls/hr IVCONT .Q10H [facility] Last Admin: 03/11/22 15:27 Dose: 100 mls/hr Insulin Human Lispro (Insulin Lispro 100 Unit/Ml 3 Ml Vial) 0 unit SUBCUT QIDACHS [facility]; Protocol Last Admin: 03/11/22 15:17 Dose: 10 unit Ondansetron HCl (Ondansetron Hcl 4 Mg/2 Ml Vial) 4 mg IVPUSH Q6H PRN PRN Reason: Nausea Oxycodone HCl (Oxycodone Hcl Immed Release 5 Mg Tablet) 5 mg PO Q4H PRN PRN Reason: Pain, Moderate (Pain Scale 4-6 Sodium Chloride (0.9 % Sodium Chloride Flush 3 Ml Syringe) 3 ml IVFLUSH QSHIFT [facility] Home Medications Medication Instructions Recorded Confirmed Last Taken Type Tylenol 1 tab PO DAILY PRN Pain 03/11/22 03/11/22 03/11/22 06:00 History multivitamin 1 tab PO DAILY 03/11/22 03/11/22 Unknown History omega-3 fatty acids 1,000 mg PO TID 03/11/22 03/11/22 Unknown History Physical Exam Vital Signs and Narrative: Vital Signs: Last Vital Signs Temp 97.2 F 03/11/22 15:21 Pulse 92 03/11/22 15:21 Resp 19 03/11/22 15:21 BP 163/76 H 03/11/22 15:21 Pulse Ox 92 03/11/22 15:21 O2 Del Method 03/11/22 15:21 O2 Flow Rate 2 03/11/22 13:25 BMI result Body Mass Index 36.1 Constitutional - Awake and Alert, No apparent distress Eyes - PERRLA, EOMI Cardiovascular - S1S2, RRR, No edema Respiratory - Normal lung expansion, Normal respiratory effort, No respiratory distress, CTA bilaterally Extremities - no calf tenderness bilaterally, no swelling Skin - Warm/Dry Neurological - Alert & oriented x3 Results Labs CBC and Chem 7: 03/11/22 07:56 03/11/22 10:03 Labs: Laboratory Results - last 24 hr 03/11/22 03/11/22 03/11/22 07:56 07:56 07:56 MCV 86.9 MCH 30.5 MCHC 35.1 RDW 11.5 Plt Count 241 MPV 11.5 Immature Gran % (Auto) Cancelled Neut % (Auto) Cancelled Lymph % (Auto) Cancelled [place] % (Auto) Cancelled Eos % (Auto) Cancelled Baso % (Auto) Cancelled Lymph # (Auto) Cancelled [place] # (Auto) Cancelled Eos # (Auto) Cancelled Baso # (Auto) Cancelled Abs Immat Gran (auto) Cancelled Absolute Neuts (auto) Cancelled Absolute Nucleated RBC 0.000 Nucleated RBC % (auto) 0.0 Neutrophils % (Manual) 86 H Band Neutrophils % 6 H Lymphocytes % (Manual) 3 L Monocytes % (Manual) 4 Metamyelocytes % 1 Abs Neuts (Manual) 22.6 H Lymphocytes # (Manual) 0.7 L Monocytes # (Manual) 1.0 Metamyelocytes # 0.2 Dohle Bodies PRESENT Platelet Estimate NORMAL Plt Morphology Comment NORMAL RBC Morphology NOTED Polychromasia 1+ (0-2) Jones Cells 1+ (0-2) VBG pH VBG pCO2 VBG pO2 VBG HCO3 VBG O2 Saturation VBG Base Excess Anion Gap 19 Estim Creat Clear Calc 53.7 Estimated GFR 36 POC Glucose Random Glucose 693 H* Estimat Average Glucose 280 Hemoglobin A1c % 11.4 Lactic Acid Calcium 8.0 L Acetone, Qual COVID-19 (PERRY) COVID-19 Clin Com 03/11/22 03/11/22 03/11/22 08:23 08:42 10:03 MCV MCH MCHC RDW Plt Count MPV Immature Gran % (Auto) Neut % (Auto) Lymph % (Auto) [place] % (Auto) Eos % (Auto) Baso % (Auto) Lymph # (Auto) [place] # (Auto) Eos # (Auto) Baso # (Auto) Abs Immat Gran (auto) Absolute Neuts (auto) Absolute Nucleated RBC Nucleated RBC % (auto) Neutrophils % (Manual) Band Neutrophils % Lymphocytes % (Manual) Monocytes % (Manual) Metamyelocytes % Abs Neuts (Manual) Lymphocytes # (Manual) Monocytes # (Manual) Metamyelocytes # Dohle Bodies Platelet Estimate Plt Morphology Comment RBC Morphology Polychromasia [place] Cells VBG pH VBG pCO2 VBG pO2 VBG HCO3 VBG O2 Saturation VBG Base Excess Anion Gap Estim Creat Clear Calc Estimated GFR POC Glucose Random Glucose Estimat Average Glucose Cancelled Hemoglobin A1c % Cancelled Lactic Acid 1.2 Calcium Acetone, Qual COVID-19 (PERRY) Negative COVID-19 [employer] See Note 03/11/22 03/11/22 03/11/22 10:03 10:12 10:34 MCV MCH MCHC RDW Plt Count MPV Immature Gran % (Auto) Neut % (Auto) Lymph % (Auto) [place] % (Auto) Eos % (Auto) Baso % (Auto) Lymph # (Auto) [place] # (Auto) Eos # (Auto) Baso # (Auto) Abs Immat Gran (auto) Absolute Neuts (auto) Absolute Nucleated RBC Nucleated RBC % (auto) Neutrophils % (Manual) Band Neutrophils % Lymphocytes % (Manual) Monocytes % (Manual) Metamyelocytes % Abs Neuts (Manual) Lymphocytes # (Manual) Monocytes # (Manual) Metamyelocytes # Dohle Bodies Platelet Estimate Plt Morphology Comment RBC Morphology Polychromasia Jones Cells VBG pH 7.38 VBG pCO2 31 VBG pO2 72 VBG HCO3 19 L VBG O2 Saturation 91.0 VBG Base Excess -5.1 Anion Gap 15 Estim Creat Clear Calc 61.8 Estimated GFR 42 POC Glucose 389 H* Random Glucose 567 H* Estimat Average Glucose Hemoglobin A1c % Lactic Acid Calcium 8.2 L Acetone, Qual Negative COVID-19 (PERRY) COVID-19 [employer] 03/11/22 03/11/22 03/11/22 12:27 14:10 16:04 MCV MCH MCHC RDW Plt Count MPV Immature Gran % (Auto) Neut % (Auto) Lymph % (Auto) [place] % (Auto) Eos % (Auto) Baso % (Auto) Lymph # (Auto) [place] # (Auto) Eos # (Auto) Baso # (Auto) Abs Immat Gran (auto) Absolute Neuts (auto) Absolute Nucleated RBC Nucleated RBC % (auto) Neutrophils % (Manual) Band Neutrophils % Lymphocytes % (Manual) Monocytes % (Manual) Metamyelocytes % Abs Neuts (Manual) Lymphocytes # (Manual) Monocytes # (Manual) Metamyelocytes # Dohle Bodies Platelet Estimate Plt Morphology Comment RBC Morphology Polychromasia Jones Cells VBG pH VBG pCO2 VBG pO2 VBG HCO3 VBG O2 Saturation VBG Base Excess Anion Gap Estim Creat Clear Calc Estimated GFR POC Glucose 357 H* 411 H* 416 H* Random Glucose Estimat Average Glucose Hemoglobin A1c % Lactic Acid Calcium Acetone, Qual COVID-19 (PERRY) COVID-19 Clin Com Imaging Radiologist's Impressions: Impressions Abdomen/Pelvis CT 03/11/22 09:46 IMPRESSION: 1. Distended urinary bladder of unknown etiology. Normal prostate gland with central gland calcification. 2. Perianal and perirectal soft tissue wall thickening extending in the para midline gluteal soft tissues. No gas, air fluid level or ulceration seen. Fleischner guidelines were followed. Assessment and Plan (1) Diabetes: Status: Acute Plan Patient without any significant medical history admitted to surgery for gluteal abscess with consult placed for management of new onset type 2 diabetes. # new onset type 2 diabetes-uncontrolled with hyperglycemia -hemoglobin A1c 11.2% -POC glucose 416 on exam -add Lantus 10 units nightly at bedtime -add Humalog 5 units scheduled q.i.d. continue sliding-scale Humalog with meals -patient educated on etiology, pathophysiology, hyperglycemia, hypoglycemia, blood glucose monitoring, diabetic diet as well as diabetes complications -would benefit from a nutrition consult for Diabetes Education which displaced -would benefit from community navigation for diabetes. Will place c case management consult as patient also needs PCP -continue POC glucose -diabetic diet # hypertension -BUN/creatinine elevated-unclear baseline. Follow BMP -if chronic, consider addition of Dayne/Arb given new onset type 2 diabetes for renal protection as well as blood pressure management. -Amlodpine 5mg now -MOnitor BP Thank you for the opportunity to participate in this consult. Will continue following. Please do not hesitate to contact me with questions
--- NOTE | 2022-03-11 16:19 | PC.NURSE ---
informed CALL CENTER RECEPTIONIST of pt's blood sugar and elevated BP
[2022-03-11] MEDS: amLODIPine Besylate 5 MG TABLET PO (16:28)
[2022-03-11 19:54] LABS: Glucose, Whole Blood 362 mg/dL (60-115)
[2022-03-11] MEDS: Insulin Glargine,Hum.rec.anlog 100 UNIT/ML 10 ML VIAL 10 UNIT SUBCUT (20:51)
[2022-03-12] MEDS: 0.9 % Sodium Chloride Flush 3 ML SYRINGE IVFLUSH ×2 (00:32→16:52)
[2022-03-12] MEDS: 0.9 % Sodium Chloride 1,000 ML 100 ML IVCONT ×2 (02:31→16:48)
[2022-03-12] MEDS: Piperacillin Sodium/Tazobactam 3.375 GM in 0.9 % Sodium Chloride 50 ML IV ×4 (03:20→21:22)
[2022-03-12 04:00] VITALS: BP 140/68; PULSE 93; RESP 18; TEMP 36.9; O2SAT 97
[2022-03-12 06:22] LABS: Basophils Absolute Auto 0.1 X10*3/uL (0.0-0.2); Basophils Percent Auto 0.4 % (0-2); Eosinophils Absolute Auto 0.1 X10*3/uL (0.0-0.4); Eosinophils Percent Auto 0.2 % (0-4); Hematocrit 26.5 % (42.0-52.0); Hemoglobin 8.9 g/dl (14.0-18.0); Imm Gran Abs Auto 1.11 X10*3/uL (0.00-0.03); Imm Gran Pct Auto 4.7 % (0.0-0.4); Lymphocytes Absolute Auto 2.2 X10*3/uL (1.2-4.9); Lymphocytes Percent Auto 9.2 % (20-40); MANUAL DIFF FLAG SCAN; Mean Corpuscular HGB Conc 33.6 g/dl (31.0-36.0); Mean Corpuscular Hemoglobin 29.7 pg (27.0-33.0); Mean Corpuscular Volume 88.3 fL (80.0-98.0); Mean Platelet Volume 11.4 fL (9.4-12.4); Monocytes Absolute Auto 1.8 X10*3/uL (0.1-1.2); Monocytes Percent Auto 7.6 % (2-11); Neutrophils Absolute Auto 18.3 x10*3/uL (2.0-8.3); Neutrophils Percent Auto 77.9 % (45-73); Platelet Count 220 X10*3/uL (160-400); Red Cell Distribution Width 11.8 % (11.0-16.0); SCAN SMEAR FLAG 1; White Blood Count 23.5 X10*3/uL (4.8-10.8)
--- NOTE | 2022-03-12 06:34 | PC.NURSE ---
around 2am, Patient's wound dressing noted to be soaked with serous drainage, after he called to report that he had an accident with bowel movement all over his dressing. Abdominal pads changed and dressing reinforced.
[2022-03-12 06:50] LABS: Anion Gap 14 (12-20); Blood Urea Nitrogen 26 mg/dL (9-16); Carbon Dioxide 20 mmol/L (22-29); Chloride 103 mmol/L (96-108); Creatinine Clr Calc Pharmacy 87.2; Estimated Glomerular Filt Rate > 60; Glucose Fasting 298 mg/dL (60-99); Potassium 4.6 mmol/L (3.3-5.1); Sodium 132 mmol/L (135-145)
[2022-03-12 07:15] VITALS: BP 146/73; PULSE 89; RESP 18; TEMP 36.7; O2SAT 92
[2022-03-12 07:24] LABS: Glucose, Whole Blood 272 mg/dL (60-115)
[2022-03-12 07:45] LABS: SLIDE REVIEW VERIFIED
--- NOTE | 2022-03-12 08:33 | MHC.CM.PN ---
CM Consult is ordered. CM met with Patient at bedside. Patient is a new DM and he has no PCP. CM has provided Patient with a pamphlet of PCPs in this area with contact information and stressed to Patient how important it is for him to call, inquire if any of the providers accept his insurance([employer])/are accepting new Patients and to schedule an initial visit, explaining that he is a new Diabetic. Patient appeared to listen intently, understand the importance/urgency and is agreeable to make the inquiries. Patient lives in a house with his Girlfriend and his adult Son and he is functionally independent and working. Home is the goal(without an established PCP,VNA is not an option and Patient will require Diabetic education here prior to dc) and CM has initiated and will follow for dc planning. Patient has received [employer] vax X3.
--- NOTE | 2022-03-12 08:55 | HO.PM.IMPN ---
Subjective Subjective Date of Service: 03/12/22 Interval History: Seen in follow-up for gluteal abscess with consult placed for new onset type 2 diabetes Interval history: Patient reports improvement of polyuria and polydipsia. Glucose levels have been improving they are still uncontrolled. There have been no hypoglycemic episodes. Review of Systems Review of Systems: Yes all other systems are reviewed and are negative Physical Exam Vital Signs: Vital Signs: Last Vital Signs Temp 98.1 F 03/12/22 07:15 Pulse 89 03/12/22 07:15 Resp 18 03/12/22 07:15 BP 146/73 H 03/12/22 07:15 Pulse Ox 92 03/12/22 07:15 O2 Del Method 03/12/22 07:15 O2 Flow Rate 2 03/11/22 13:25 BMI result Body Mass Index 36.1 Constitutional - Awake and Alert, No apparent distress Eyes - PERRLA, EOMI Cardiovascular - S1S2, RRR, No edema Respiratory - Normal lung expansion, Normal respiratory effort, No respiratory distress, CTA bilaterally Gastrointestinal - NT / ND; +BS; No rebound or guarding Extremities - no calf tenderness bilaterally, no swelling Skin - Warm/Dry Neurological - Alert & oriented x3 Psychological - Appropriate affect Objective Data Active Medications Acetaminophen (Acetaminophen 325 Mg Tablet) 650 mg PO Q6H PRN PRN Reason: Pain, Mild (Pain Scale 1-3) Amlodipine Besylate (Amlodipine Besylate 5 Mg Tablet) 5 mg PO DAILY [facility]; Protocol Last Admin: 03/11/22 16:28 Dose: 5 mg Documented By: LE Dextrose (Dextrose 50 % 25 Gm/50 Ml Syringe) 25 gm IVPUSH Q15M PRN; Protocol PRN Reason: per Hypoglycemia Standing Ord. Glucose (Glucose Gel 15 Gm Gel..Gram.) 15 gm PO Q15M PRN; Protocol PRN Reason: per Hypoglycemia Standing Ord. Hydromorphone HCl (Hydromorphone Hcl 1 Mg/Ml Syringe) 0.5 mg IVPUSH Q4H PRN; Protocol PRN Reason: Pain, Severe (Pain Scale 7-10) Piperacillin Sod/Tazobactam (Sod 3.375 gm/ Sodium Chloride) 50 mls @ 100 mls/hr IV Q6H [facility] Last Infusion: 03/12/22 04:05 Dose: 0 mls/hr Documented By: CHELSEA Sodium Chloride (Ns) 1,000 mls @ 100 mls/hr IVCONT .Q10H [facility] Last Admin: 03/12/22 07:30 Dose: Not Given Documented By: VIPUL Non-Admin Reason: See Note Insulin Glargine (Insulin Glargine,Hum.Rec.Anlog 100 Unit/Ml 10 Ml Vial) 10 unit SUBCUT BEDTIME [facility] Last Admin: 03/11/22 20:51 Dose: 10 unit Documented By: CHELSEA Insulin Human Lispro (Insulin Lispro 100 Unit/Ml 3 Ml Vial) 0 unit SUBCUT QIDACHS [facility]; Protocol Last Admin: 03/11/22 20:52 Dose: 10 unit Documented By: CHELSEA Insulin Human Lispro (Insulin Lispro 100 Unit/Ml 3 Ml Vial) 5 unit SUBCUT QIDACHS [facility] Last Admin: 03/12/22 08:46 Dose: Not Given Documented By: LE Non-Admin Reason: Duplicate Order Ondansetron HCl (Ondansetron Hcl 4 Mg/2 Ml Vial) 4 mg IVPUSH Q6H PRN PRN Reason: Nausea Oxycodone HCl (Oxycodone Hcl Immed Release 5 Mg Tablet) 5 mg PO Q4H PRN PRN Reason: Pain, Moderate (Pain Scale 4-6 Sodium Chloride (0.9 % Sodium Chloride Flush 3 Ml Syringe) 3 ml IVFLUSH QSHIFT [facility] Last Admin: 03/12/22 00:32 Dose: 3 ml Documented By: CHELSEA Labs CBC & Chem 7: 03/12/22 06:00 03/12/22 06:00 Labs: Laboratory Results - last 24 hr 03/11/22 03/11/22 03/11/22 07:56 08:42 10:03 MCV MCH MCHC RDW Plt Count MPV Immature Gran % (Auto) Neut % (Auto) Lymph % (Auto) [place] % (Auto) Eos % (Auto) Baso % (Auto) Lymph # (Auto) [place] # (Auto) Eos # (Auto) Baso # (Auto) Abs Immat Gran (auto) Absolute Neuts (auto) Absolute Nucleated RBC Nucleated RBC % (auto) Smear Tech's Comments VBG pH VBG pCO2 VBG pO2 VBG HCO3 VBG O2 Saturation VBG Base Excess Anion Gap Estim Creat Clear Calc Estimated GFR POC Glucose Random Glucose Fasting Glucose Estimat Average Glucose 280 Cancelled Hemoglobin A1c % 11.4 Cancelled Lactic Acid 1.2 Calcium Acetone, Qual 03/11/22 03/11/22 03/11/22 10:03 10:12 10:34 MCV MCH MCHC RDW Plt Count MPV Immature Gran % (Auto) Neut % (Auto) Lymph % (Auto) [place] % (Auto) Eos % (Auto) Baso % (Auto) Lymph # (Auto) [place] # (Auto) Eos # (Auto) Baso # (Auto) Abs Immat Gran (auto) Absolute Neuts (auto) Absolute Nucleated RBC Nucleated RBC % (auto) Smear Tech's Comments VBG pH 7.38 VBG pCO2 31 VBG pO2 72 VBG HCO3 19 L VBG O2 Saturation 91.0 VBG Base Excess -5.1 Anion Gap 15 Estim Creat Clear Calc 61.8 Estimated GFR 42 POC Glucose 389 H* Random Glucose 567 H* Fasting Glucose Estimat Average Glucose Hemoglobin A1c % Lactic Acid Calcium 8.2 L Acetone, Qual Negative 03/11/22 03/11/22 03/11/22 12:27 14:10 16:04 MCV MCH MCHC RDW Plt Count MPV Immature Gran % (Auto) Neut % (Auto) Lymph % (Auto) [place] % (Auto) Eos % (Auto) Baso % (Auto) Lymph # (Auto) [place] # (Auto) Eos # (Auto) Baso # (Auto) Abs Immat Gran (auto) Absolute Neuts (auto) Absolute Nucleated RBC Nucleated RBC % (auto) Smear Tech's Comments VBG pH VBG pCO2 VBG pO2 VBG HCO3 VBG O2 Saturation VBG Base Excess Anion Gap Estim Creat Clear Calc Estimated GFR POC Glucose 357 H* 411 H* 416 H* Random Glucose Fasting Glucose Estimat Average Glucose Hemoglobin A1c % Lactic Acid Calcium Acetone, Qual 03/11/22 03/12/22 03/12/22 19:50 06:00 06:00 MCV 88.3 MCH 29.7 MCHC 33.6 RDW 11.8 Plt Count 220 MPV 11.4 Immature Gran % (Auto) 4.7 H Neut % (Auto) 77.9 H Lymph % (Auto) 9.2 L [place] % (Auto) 7.6 Eos % (Auto) 0.2 Baso % (Auto) 0.4 Lymph # (Auto) 2.2 [place] # (Auto) 1.8 H Eos # (Auto) 0.1 Baso # (Auto) 0.1 Abs Immat Gran (auto) 1.11 H Absolute Neuts (auto) 18.3 H Absolute Nucleated RBC 0.000 Nucleated RBC % (auto) 0.0 Smear Tech's Comments VERIFIED VBG pH VBG pCO2 VBG pO2 VBG HCO3 VBG O2 Saturation VBG Base Excess Anion Gap 14 Estim Creat Clear Calc 87.2 Estimated GFR > 60 POC Glucose 362 H* Random Glucose Fasting Glucose 298 H Estimat Average Glucose Hemoglobin A1c % Lactic Acid Calcium 8.0 L Acetone, Qual 03/12/22 07:19 MCV MCH MCHC RDW Plt Count MPV Immature Gran % (Auto) Neut % (Auto) Lymph % (Auto) [place] % (Auto) Eos % (Auto) Baso % (Auto) Lymph # (Auto) [place] # (Auto) Eos # (Auto) Baso # (Auto) Abs Immat Gran (auto) Absolute Neuts (auto) Absolute Nucleated RBC Nucleated RBC % (auto) Smear Tech's Comments VBG pH VBG pCO2 VBG pO2 VBG HCO3 VBG O2 Saturation VBG Base Excess Anion Gap Estim Creat Clear Calc Estimated GFR POC Glucose 272 H Random Glucose Fasting Glucose Estimat Average Glucose Hemoglobin A1c % Lactic Acid Calcium Acetone, Qual Microbiology Microbiology Results: Microbiology 03/11/22 Unknown Gram Stain - Final Sary-rectal abscess Assessment and Plan (1) Diabetes: Status: Acute Plan Patient without any significant medical history admitted to surgery for gluteal abscess with consult placed for management of new onset type 2 diabetes. # new onset type 2 diabetes-uncontrolled with hyperglycemia -hemoglobin A1c 11.2% -Glucose levels steadily improving. Fasting glucose this am 298, POC glucose 272 -Continue Lantus 10 units nightly at bedtime -Continue Humalog 5 units scheduled q.i.d. continue sliding-scale Humalog with meals -patient educated on etiology, pathophysiology, hyperglycemia, hypoglycemia, blood glucose monitoring, diabetic diet as well as diabetes complications -would benefit from a nutrition consult for Diabetes Education which displaced -would benefit from community navigation for diabetes.? Case management consult placed, patient also needs PCP -continue POC glucose -diabetic diet # hypertension -BUN/creatinine elevated-unclear baseline.? Follow BMP -if chronic, consider addition of Adyne/Arb given new onset type 2 diabetes for renal protection as well as blood pressure management. -Amlodpine 5mg now -MOnitor BP Dispo: Per General surgery. Insulin, pen needles, and testing supplies have been ordered to be sent to patient pharmacy on discharge. Thank you for the opportunity to participate in this consult.? Will continue following.? Please do not hesitate to contact me with questions Quality Stroke Does the patient have a stroke diagnosis?: No VTE Prior VTE?: No VTE Risk Level:: Surgical - low VTE Device Contraindication: N/A - Device Ordered VTE Drug Contraindication: Treatment Not Indicated
[2022-03-12] MEDS: HYDROmorphone HCl 1 MG/ML SYRINGE 0.5 MG IVPUSH ×2 (09:05→22:27)
[2022-03-12] MEDS: amLODIPine Besylate 5 MG TABLET PO (09:10)
[2022-03-12] MEDS: Insulin Lispro 100 UNIT/ML 3 ML VIAL SUBCUT ×4 (09:10→21:21)
--- NOTE | 2022-03-12 09:30 | P.PNGS_ITS ---
Subjective Subjective Date of Service: 03/12/22 Interval history: The patient is feeling better and has been tolerating the packing well with minimal pain. He has been tolerating his diet well and has had a bowel movement. The patient did mention he feels like he has to strain harder to pass urine, but does feel he has emptied his bladder completely. He stated this is new. Physical Exam Vital Signs: Vital Signs: Last Vital Signs Temp 98.1 F 03/12/22 07:15 Pulse 89 03/12/22 07:15 Resp 18 03/12/22 07:15 BP 146/73 H 03/12/22 07:15 Pulse Ox 92 03/12/22 07:15 O2 Del Method 03/12/22 07:15 O2 Flow Rate 2 03/11/22 13:25 BMI result Body Mass Index 36.1 Skin: Other: The dressing was removed and exposed the open wound. Along the edge of the wound there was significant induration and erythema that extended to the sacrum. At the base of the wound there was some granulation tissue and exudate. No crepitus, necrosis, or purulent discharge was appreciated. The wound was packed with a wet to dry dressing, covered with fluffs and abdominal dressings. The dressing should be changed daily and as needed. Objective Data Active Medications Acetaminophen (Acetaminophen 325 Mg Tablet) 650 mg PO Q6H PRN PRN Reason: Pain, Mild (Pain Scale 1-3) Amlodipine Besylate (Amlodipine Besylate 5 Mg Tablet) 5 mg PO DAILY [facility]; Protocol Last Admin: 03/12/22 09:10 Dose: 5 mg Documented By: LE Dextrose (Dextrose 50 % 25 Gm/50 Ml Syringe) 25 gm IVPUSH Q15M PRN; Protocol PRN Reason: per Hypoglycemia Standing Ord. Glucose (Glucose Gel 15 Gm Gel..Gram.) 15 gm PO Q15M PRN; Protocol PRN Reason: per Hypoglycemia Standing Ord. Hydromorphone HCl (Hydromorphone Hcl 1 Mg/Ml Syringe) 0.5 mg IVPUSH Q4H PRN; Protocol PRN Reason: Pain, Severe (Pain Scale 7-10) Last Admin: 03/12/22 09:05 Dose: 0.5 mg Documented By: LE Piperacillin Sod/Tazobactam (Sod 3.375 gm/ Sodium Chloride) 50 mls @ 100 mls/hr IV Q6H [facility] Last Admin: 03/12/22 09:10 Dose: 100 mls/hr Documented By: LE Sodium Chloride (Ns) 1,000 mls @ 100 mls/hr IVCONT .Q10H [facility] Last Admin: 03/12/22 07:30 Dose: Not Given Documented By: VIPUL Non-Admin Reason: See Note Insulin Glargine (Insulin Glargine,Hum.Rec.Anlog 100 Unit/Ml 10 Ml Vial) 10 unit SUBCUT BEDTIME [facility] Last Admin: 03/11/22 20:51 Dose: 10 unit Documented By: CHELSEA Insulin Human Lispro (Insulin Lispro 100 Unit/Ml 3 Ml Vial) 0 unit SUBCUT QIDACHS [facility]; Protocol Last Admin: 03/12/22 09:10 Dose: 5 unit Documented By: LE Ondansetron HCl (Ondansetron Hcl 4 Mg/2 Ml Vial) 4 mg IVPUSH Q6H PRN PRN Reason: Nausea Oxycodone HCl (Oxycodone Hcl Immed Release 5 Mg Tablet) 5 mg PO Q4H PRN PRN Reason: Pain, Moderate (Pain Scale 4-6 Sodium Chloride (0.9 % Sodium Chloride Flush 3 Ml Syringe) 3 ml IVFLUSH QSHIFT [facility] Last Admin: 03/12/22 09:12 Dose: Not Given Documented By: LE Non-Admin Reason: IV Running Labs CBC & Chem 7: 03/12/22 06:00 03/12/22 06:00 Labs: Laboratory Results - last 24 hr 03/11/22 03/11/22 03/11/22 07:56 10:03 10:03 MCV MCH MCHC RDW Plt Count MPV Immature Gran % (Auto) Neut % (Auto) Lymph % (Auto) [place] % (Auto) Eos % (Auto) Baso % (Auto) Lymph # (Auto) [place] # (Auto) Eos # (Auto) Baso # (Auto) Abs Immat Gran (auto) Absolute Neuts (auto) Absolute Nucleated RBC Nucleated RBC % (auto) Smear Tech's Comments VBG pH VBG pCO2 VBG pO2 VBG HCO3 VBG O2 Saturation VBG Base Excess Anion Gap 15 Estim Creat Clear Calc 61.8 Estimated GFR 42 POC Glucose Random Glucose 567 H* Fasting Glucose Estimat Average Glucose 280 Cancelled Hemoglobin A1c % 11.4 Cancelled Calcium 8.2 L Acetone, Qual Negative 03/11/22 03/11/22 03/11/22 10:12 10:34 12:27 MCV MCH MCHC RDW Plt Count MPV Immature Gran % (Auto) Neut % (Auto) Lymph % (Auto) [place] % (Auto) Eos % (Auto) Baso % (Auto) Lymph # (Auto) [place] # (Auto) Eos # (Auto) Baso # (Auto) Abs Immat Gran (auto) Absolute Neuts (auto) Absolute Nucleated RBC Nucleated RBC % (auto) Smear Tech's Comments VBG pH 7.38 VBG pCO2 31 VBG pO2 72 VBG HCO3 19 L VBG O2 Saturation 91.0 VBG Base Excess -5.1 Anion Gap Estim Creat Clear Calc Estimated GFR POC Glucose 389 H* 357 H* Random Glucose Fasting Glucose Estimat Average Glucose Hemoglobin A1c % Calcium Acetone, Qual 03/11/22 03/11/22 03/11/22 14:10 16:04 19:50 MCV MCH MCHC RDW Plt Count MPV Immature Gran % (Auto) Neut % (Auto) Lymph % (Auto) [place] % (Auto) Eos % (Auto) Baso % (Auto) Lymph # (Auto) [place] # (Auto) Eos # (Auto) Baso # (Auto) Abs Immat Gran (auto) Absolute Neuts (auto) Absolute Nucleated RBC Nucleated RBC % (auto) Smear Tech's Comments VBG pH VBG pCO2 VBG pO2 VBG HCO3 VBG O2 Saturation VBG Base Excess Anion Gap Estim Creat Clear Calc Estimated GFR POC Glucose 411 H* 416 H* 362 H* Random Glucose Fasting Glucose Estimat Average Glucose Hemoglobin A1c % Calcium Acetone, Qual 03/12/22 03/12/22 03/12/22 06:00 06:00 07:19 MCV 88.3 MCH 29.7 MCHC 33.6 RDW 11.8 Plt Count 220 MPV 11.4 Immature Gran % (Auto) 4.7 H Neut % (Auto) 77.9 H Lymph % (Auto) 9.2 L [place] % (Auto) 7.6 Eos % (Auto) 0.2 Baso % (Auto) 0.4 Lymph # (Auto) 2.2 [place] # (Auto) 1.8 H Eos # (Auto) 0.1 Baso # (Auto) 0.1 Abs Immat Gran (auto) 1.11 H Absolute Neuts (auto) 18.3 H Absolute Nucleated RBC 0.000 Nucleated RBC % (auto) 0.0 Smear Tech's Comments VERIFIED VBG pH VBG pCO2 VBG pO2 VBG HCO3 VBG O2 Saturation VBG Base Excess Anion Gap 14 Estim Creat Clear Calc 87.2 Estimated GFR > 60 POC Glucose 272 H Random Glucose Fasting Glucose 298 H Estimat Average Glucose Hemoglobin A1c % Calcium 8.0 L Acetone, Qual Microbiology Microbiology Results: Microbiology 03/11/22 Unknown Gram Stain - Final Sary-rectal abscess Progress Note: A&P Time Spent With Patient Time: Total time spent is greater than 50% in coordination of care (as documented) at patient's floor/unit and/or counseling patient: Quality Stroke Does the patient have a stroke diagnosis?: No VTE Prior VTE?: No VTE Risk Level:: Surgical - low VTE Device Contraindication: N/A - Device Ordered VTE Drug Contraindication: Treatment Not Indicated
--- NOTE | 2022-03-12 09:51 | PM.PNGS ---
Subjective Subjective Date of Service: 03/12/22 <Winter Mondragon PA-C - Last Filed: 03/12/22 09:59> 03/12/22 <Yoni Valverde MD - Last Filed: 03/12/22 10:05> Interval history: The patient is feeling better and has no pain at rest. He has been tolerating his diet well and has had a bowel movement. The patient did mention he feels like he has to strain harder to pass urine, but does feel he has emptied his bladder completely. <Winter Mondragon PA-C - Last Filed: 03/12/22 09:59> Physical Exam Vital Signs: Vital Signs: Last Vital Signs Temp 98.1 F 03/12/22 07:15 Pulse 89 03/12/22 07:15 Resp 18 03/12/22 07:15 BP 146/73 H 03/12/22 07:15 Pulse Ox 92 03/12/22 07:15 O2 Del Method 03/12/22 07:15 O2 Flow Rate 2 03/11/22 13:25 BMI result Body Mass Index 36.1 <Winter Mondragon PA-C - Last Filed: 03/12/22 09:59> Const: General: comfortable, no acute distress and alert <JAVI Yo Last Filed: 03/12/22 09:59> Orientation/consciousness: patient oriented x3 <Winter Mondragon PA-C - Last Filed: 03/12/22 09:59> Resp: Effort & Inspection: normal respiratory effort <JAVI Yo Last Filed: 03/12/22 09:59> Back/Spine/Pelvis: Other: I&D site, gluteal cleft, right- packing removed, wound does have some fibrinous exudate with granulation tissue, no necrotic tissue noted, no crepitus, significant induration persists extending almost into perineum on the R, no purulent drainage noted <JAVI Yo Last Filed: 03/12/22 09:59> Skin: Other: no rash <JAVI Yo Last Filed: 03/12/22 09:59> Neuro: General: patient oriented x3 and moves all extremities <Winter Mondragon PA-C - Last Filed: 03/12/22 09:59> Objective Data Active Medications Acetaminophen (Acetaminophen 325 Mg Tablet) 650 mg PO Q6H PRN PRN Reason: Pain, Mild (Pain Scale 1-3) Amlodipine Besylate (Amlodipine Besylate 5 Mg Tablet) 5 mg PO DAILY [facility]; Protocol Last Admin: 03/12/22 09:10 Dose: 5 mg Documented By: LE Dextrose (Dextrose 50 % 25 Gm/50 Ml Syringe) 25 gm IVPUSH Q15M PRN; Protocol PRN Reason: per Hypoglycemia Standing Ord. Glucose (Glucose Gel 15 Gm Gel..Gram.) 15 gm PO Q15M PRN; Protocol PRN Reason: per Hypoglycemia Standing Ord. Hydromorphone HCl (Hydromorphone Hcl 1 Mg/Ml Syringe) 0.5 mg IVPUSH Q4H PRN; Protocol PRN Reason: Pain, Severe (Pain Scale 7-10) Last Admin: 03/12/22 09:05 Dose: 0.5 mg Documented By: LE Piperacillin Sod/Tazobactam (Sod 3.375 gm/ Sodium Chloride) 50 mls @ 100 mls/hr IV Q6H [facility] Last Admin: 03/12/22 09:10 Dose: 100 mls/hr Documented By: LE Sodium Chloride (Ns) 1,000 mls @ 100 mls/hr IVCONT .Q10H [facility] Last Admin: 03/12/22 07:30 Dose: Not Given Documented By: VIPUL Non-Admin Reason: See Note Insulin Glargine (Insulin Glargine,Hum.Rec.Anlog 100 Unit/Ml 10 Ml Vial) 10 unit SUBCUT BEDTIME [facility] Last Admin: 03/11/22 20:51 Dose: 10 unit Documented By: CHELSEA Insulin Human Lispro (Insulin Lispro 100 Unit/Ml 3 Ml Vial) 0 unit SUBCUT QIDACHS [facility]; Protocol Last Admin: 03/12/22 09:10 Dose: 5 unit Documented By: LE Ondansetron HCl (Ondansetron Hcl 4 Mg/2 Ml Vial) 4 mg IVPUSH Q6H PRN PRN Reason: Nausea Oxycodone HCl (Oxycodone Hcl Immed Release 5 Mg Tablet) 5 mg PO Q4H PRN PRN Reason: Pain, Moderate (Pain Scale 4-6 Sodium Chloride (0.9 % Sodium Chloride Flush 3 Ml Syringe) 3 ml IVFLUSH QSHIFT [facility] Last Admin: 03/12/22 09:12 Dose: Not Given Documented By: LE Non-Admin Reason: IV Running <Winter Mondragon PA-C - Last Filed: 03/12/22 09:59> Labs CBC & Chem 7: : 03/12/22 06:00 03/12/22 06:00 <Winter Mondragon PA-C - Last Filed: 03/12/22 09:59> Labs: Laboratory Results - last 24 hr 03/11/22 03/11/22 03/11/22 07:56 10:03 10:03 MCV MCH MCHC RDW Plt Count MPV Immature Gran % (Auto) Neut % (Auto) Lymph % (Auto) [place] % (Auto) Eos % (Auto) Baso % (Auto) Lymph # (Auto) [place] # (Auto) Eos # (Auto) Baso # (Auto) Abs Immat Gran (auto) Absolute Neuts (auto) Absolute Nucleated RBC Nucleated RBC % (auto) Smear Tech's Comments VBG pH VBG pCO2 VBG pO2 VBG HCO3 VBG O2 Saturation VBG Base Excess Anion Gap 15 Estim Creat Clear Calc 61.8 Estimated GFR 42 POC Glucose Random Glucose 567 H* Fasting Glucose Estimat Average Glucose 280 Cancelled Hemoglobin A1c % 11.4 Cancelled Calcium 8.2 L Acetone, Qual Negative 03/11/22 03/11/22 03/11/22 10:12 10:34 12:27 MCV MCH MCHC RDW Plt Count MPV Immature Gran % (Auto) Neut % (Auto) Lymph % (Auto) [place] % (Auto) Eos % (Auto) Baso % (Auto) Lymph # (Auto) [place] # (Auto) Eos # (Auto) Baso # (Auto) Abs Immat Gran (auto) Absolute Neuts (auto) Absolute Nucleated RBC Nucleated RBC % (auto) Smear Tech's Comments VBG pH 7.38 VBG pCO2 31 VBG pO2 72 VBG HCO3 19 L VBG O2 Saturation 91.0 VBG Base Excess -5.1 Anion Gap Estim Creat Clear Calc Estimated GFR POC Glucose 389 H* 357 H* Random Glucose Fasting Glucose Estimat Average Glucose Hemoglobin A1c % Calcium Acetone, Qual 03/11/22 03/11/22 03/11/22 14:10 16:04 19:50 MCV MCH MCHC RDW Plt Count MPV Immature Gran % (Auto) Neut % (Auto) Lymph % (Auto) [place] % (Auto) Eos % (Auto) Baso % (Auto) Lymph # (Auto) [place] # (Auto) Eos # (Auto) Baso # (Auto) Abs Immat Gran (auto) Absolute Neuts (auto) Absolute Nucleated RBC Nucleated RBC % (auto) Smear Tech's Comments VBG pH VBG pCO2 VBG pO2 VBG HCO3 VBG O2 Saturation VBG Base Excess Anion Gap Estim Creat Clear Calc Estimated GFR POC Glucose 411 H* 416 H* 362 H* Random Glucose Fasting Glucose Estimat Average Glucose Hemoglobin A1c % Calcium Acetone, Qual 03/12/22 03/12/22 03/12/22 06:00 06:00 07:19 MCV 88.3 MCH 29.7 MCHC 33.6 RDW 11.8 Plt Count 220 MPV 11.4 Immature Gran % (Auto) 4.7 H Neut % (Auto) 77.9 H Lymph % (Auto) 9.2 L [place] % (Auto) 7.6 Eos % (Auto) 0.2 Baso % (Auto) 0.4 Lymph # (Auto) 2.2 [place] # (Auto) 1.8 H Eos # (Auto) 0.1 Baso # (Auto) 0.1 Abs Immat Gran (auto) 1.11 H Absolute Neuts (auto) 18.3 H Absolute Nucleated RBC 0.000 Nucleated RBC % (auto) 0.0 Smear Tech's Comments VERIFIED VBG pH VBG pCO2 VBG pO2 VBG HCO3 VBG O2 Saturation VBG Base Excess Anion Gap 14 Estim Creat Clear Calc 87.2 Estimated GFR > 60 POC Glucose 272 H Random Glucose Fasting Glucose 298 H Estimat Average Glucose Hemoglobin A1c % Calcium 8.0 L Acetone, Qual <Winter Mondragon PA-C - Last Filed: 03/12/22 09:59> Microbiology Microbiology Results: Microbiology 03/11/22 Unknown Gram Stain - Final Sary-rectal abscess <Winter Mondragon PA-C - Last Filed: 03/12/22 09:59> Procedures Date of Service Date of Service: 03/12/22 <Winter Mondragon PA-C - Last Filed: 03/12/22 09:59> Progress Note: A&P Assessment and plan (1) Abscess, gluteal cleft: Status: Acute <Winter Mondragon PA-C - Last Filed: 03/12/22 09:59> (2) Diabetes: Status: Acute <Winter Mondragon PA-C - Last Filed: 03/12/22 09:59> (3) Necrotizing subcutaneous infection: Status: Acute <Winter Mondragon PA-C - Last Filed: 03/12/22 09:59> Assessment and Plan: Status post excisional debridement and I and D yesterday He feels much better White count has improved Blood sugars better Dressings changed Continue wound care Continue IV antibiotics for now Hospitalist following for new diagnosis of diabetes Seen and examined independently - agree with NAFISA Mondragon <Yoni Valverde MD - Last Filed: 03/12/22 10:05> Assessment and Plan: 51 year old male admitted with sepsis, perirectal abscess who is now POD #1 s/p I&D of perirectal abscess and debridement of necrotic tissue. He feels significantly improved this morning. The wound has some granulation tissue with some fibrinous exudate, no further surgical intervention currently needed. Significant induration persists and will need continued IV abx. WBC slightly improved. Wet to dry dressing applied- fluffs, abd dressing and tape. Continue local wound care daily and PRN. Discussed control of sugars to promote wound healing. Hospitalists following for medical management. Appreciate input. <Winter Mondragon PA-C - Last Filed: 03/12/22 09:59> Time Spent With Patient Time: Total time spent is greater than 50% in coordination of care (as documented) at patient's floor/unit and/or counseling patient: <Winter Mondragon PA-C - Last Filed: 03/12/22 09:59> Quality Stroke Does the patient have a stroke diagnosis?: No <Winter Mondragon PA-C - Last Filed: 03/12/22 09:59> VTE Prior VTE?: No <Winter Mondragon PA-C - Last Filed: 03/12/22 09:59> VTE Risk Level:: Surgical - low <Winter Mondragon PA-C - Last Filed: 03/12/22 09:59> VTE Device Contraindication: N/A - Device Ordered <Winter Mondragon PA-C - Last Filed: 03/12/22 09:59> VTE Drug Contraindication: Treatment Not Indicated <Winter Mondragon PA-C - Last Filed: 03/12/22 09:59>
[2022-03-12 11:29] VITALS: BP 140/69; PULSE 86; RESP 18; TEMP 36.7; O2SAT 92
[2022-03-12 11:34] LABS: Glucose, Whole Blood 329 mg/dL (60-115)
--- NOTE | 2022-03-12 11:55 | MHC.CLN ---
RE: CONSULT CONSULT COMPLETED REGARDING DM EDUCATION SEE TEACHING RECORD FOR DETAILS RECOMMEND REFERRAL FOR OUT PATIENT RD DM EDUCATION UPON DISCHARGE
[2022-03-12 15:44] VITALS: BP 155/80; PULSE 103; RESP 17; TEMP 37.7; O2SAT 97
--- NOTE | 2022-03-12 16:12 | HO.POSTANES ---
Post Anesthesia Evaluation Post Anesthesia Evaluation Vital Signs: Vital Signs Temp Pulse Resp BP Pulse Ox O2 Del Method 03/12/22 15:44 99.8 F 103 H 17 155/80 H 97 Room Air 03/12/22 11:29 98.1 F 86 18 140/69 H 92 Room Air 03/12/22 07:15 98.1 F 89 18 146/73 H 92 Room Air Anesthesia: General Mental Status: Awake Pain Control: Satisfactory Nausea/Vomiting: None Hydration: Adequate Anesthesia-Related Issues: No Anes. Related Issues
[2022-03-12 16:21] LABS: Glucose, Whole Blood 330 mg/dL (60-115)
[2022-03-12 20:00] VITALS: BP 182/84; PULSE 104; RESP 18; TEMP 36.8; O2SAT 92
[2022-03-12 20:08] LABS: Glucose, Whole Blood 318 mg/dL (60-115)
[2022-03-12] MEDS: Insulin Glargine,Hum.rec.anlog 100 UNIT/ML 10 ML VIAL 10 UNIT SUBCUT (21:22)
[2022-03-13] VITALS (7 sets, daily range): BP systolic 142–168; BP diastolic 70–85; PULSE 81–105; RESP 16–20; TEMP 36.5–37.6; O2SAT 90–98
[2022-03-13] MEDS: Piperacillin Sodium/Tazobactam 3.375 GM in 0.9 % Sodium Chloride 50 ML IV ×4 (03:27→20:34)
[2022-03-13] MEDS: 0.9 % Sodium Chloride 1,000 ML 100 ML IVCONT (03:27)
[2022-03-13] MEDS: HYDROmorphone HCl 1 MG/ML SYRINGE 0.5 MG IVPUSH (06:50)
[2022-03-13 07:54] LABS: Glucose, Whole Blood 206 mg/dL (60-115)
[2022-03-13] MEDS: Insulin Lispro 100 UNIT/ML 3 ML VIAL SUBCUT ×8 (08:05→20:27)
[2022-03-13] MEDS: amLODIPine Besylate 5 MG TABLET PO (08:06)
[2022-03-13] MEDS: 0.9 % Sodium Chloride Flush 3 ML SYRINGE IVFLUSH ×2 (08:06→13:26)
--- NOTE | 2022-03-13 09:03 | P.PNGS_ITS ---
Subjective Subjective Date of Service: 03/13/22 <Winter Mondragon PA-C - Last Filed: 03/13/22 09:09> 03/13/22 <Yoni Valverde MD - Last Filed: 03/13/22 09:24> Interval history: Had more pain yesterday, improved with analgesics. Tolerating solid diet. Saw stationary engineer yesterday. <Winter Mondragon PA-C - Last Filed: 03/13/22 09:09> Physical Exam Vital Signs: Vital Signs: Last Vital Signs Temp 98.2 F 03/13/22 07:36 Pulse 84 03/13/22 07:36 Resp 20 03/13/22 07:36 BP 155/75 H 03/13/22 07:36 Pulse Ox 92 03/13/22 07:36 O2 Del Method 03/13/22 07:36 O2 Flow Rate 2 03/11/22 13:25 BMI result Body Mass Index 36.1 <Winter Mondragon PA-C - Last Filed: 03/13/22 09:09> Const: General: comfortable, no acute distress and alert <Winter Mondragon PA-C - Last Filed: 03/13/22 09:09> Orientation/consciousness: patient oriented x3 <JAVI Yo Last Filed: 03/13/22 09:09> Resp: Effort & Inspection: normal respiratory effort <Winter Mondragon PA-C - Last Filed: 03/13/22 09:09> Back/Spine/Pelvis: Other: perirectal- I&D /debridement site continues with fibrinous exudate, some granulation, no necrosis or purulence noted, no palpable fluctuance however significant induration persists surrounding and extending to perineum <Winter Mondragon PA-C - Last Filed: 03/13/22 09:09> Skin: General skin exam: no rashes or lesions noted <JAVI Yo Last Filed: 03/13/22 09:09> Neuro: General: patient oriented x3 <JAVI Yo Last Filed: 03/13/22 09:09> Objective Data Active Medications Acetaminophen (Acetaminophen 325 Mg Tablet) 650 mg PO Q6H PRN PRN Reason: Pain, Mild (Pain Scale 1-3) Amlodipine Besylate (Amlodipine Besylate 5 Mg Tablet) 5 mg PO DAILY [facility]; Protocol Last Admin: 03/13/22 08:06 Dose: 5 mg Documented By: RADHA Dextrose (Dextrose 50 % 25 Gm/50 Ml Syringe) 25 gm IVPUSH Q15M PRN; Protocol PRN Reason: per Hypoglycemia Standing Ord. Glucose (Glucose Gel 15 Gm Gel..Gram.) 15 gm PO Q15M PRN; Protocol PRN Reason: per Hypoglycemia Standing Ord. Hydromorphone HCl (Hydromorphone Hcl 1 Mg/Ml Syringe) 0.5 mg IVPUSH Q4H PRN; Protocol PRN Reason: Pain, Severe (Pain Scale 7-10) Last Admin: 03/13/22 06:50 Dose: 0.5 mg Documented By: URBANO Piperacillin Sod/Tazobactam (Sod 3.375 gm/ Sodium Chloride) 50 mls @ 100 mls/hr IV Q6H [facility] Last Infusion: 03/13/22 08:55 Dose: 0 mls/hr Documented By: RADHA Sodium Chloride (Ns) 1,000 mls @ 100 mls/hr IVCONT .Q10H [facility] Last Admin: 03/13/22 03:27 Dose: 100 mls/hr Documented By: URBANO Insulin Glargine (Insulin Glargine,Hum.Rec.Anlog 100 Unit/Ml 10 Ml Vial) 10 unit SUBCUT BEDTIME [facility] Last Admin: 03/12/22 21:22 Dose: 10 unit Documented By: URBANO Insulin Human Lispro (Insulin Lispro 100 Unit/Ml 3 Ml Vial) 0 unit SUBCUT QIDACHS [facility]; Protocol Last Admin: 03/13/22 08:05 Dose: 4 unit Documented By: RADHA Insulin Human Lispro (Insulin Lispro 100 Unit/Ml 3 Ml Vial) 5 unit SUBCUT QIDACHS [facility] Last Admin: 03/13/22 08:05 Dose: 5 unit Documented By: RADHA Ondansetron HCl (Ondansetron Hcl 4 Mg/2 Ml Vial) 4 mg IVPUSH Q6H PRN PRN Reason: Nausea Oxycodone HCl (Oxycodone Hcl Immed Release 5 Mg Tablet) 5 mg PO Q4H PRN PRN Reason: Pain, Moderate (Pain Scale 4-6 Sodium Chloride (0.9 % Sodium Chloride Flush 3 Ml Syringe) 3 ml IVFLUSH [facility] Last Admin: 03/13/22 08:06 Dose: 3 ml Documented By: RADHA <Winter Mondragon PA-C - Last Filed: 03/13/22 09:09> Labs CBC & Chem 7: : 03/12/22 06:00 03/12/22 06:00 <Winter Mondragon PA-C - Last Filed: 03/13/22 09:09> Labs: Laboratory Results - last 24 hr 03/12/22 03/12/22 03/12/22 11:28 16:09 20:02 POC Glucose 329 H 330 H 318 H 03/13/22 07:37 POC Glucose 206 H <Winter Mondragon PA-C - Last Filed: 03/13/22 09:09> Microbiology Microbiology Results: Microbiology 03/11/22 Unknown Gram Stain - Final Sary-rectal abscess Routine Culture - Final Strep agalactiae (Grp B) 03/11/22 08:46 Blood Culture - Preliminary Blood - Venous No growth after 24 hours. 03/11/22 08:42 Blood Culture - Preliminary Blood - Venous No growth after 24 hours. <Winter Mondragon PA-C - Last Filed: 03/13/22 09:09> Procedures Date of Service Date of Service: 03/13/22 <Winter Mondragon PA-C - Last Filed: 03/13/22 09:09> Progress Note: A&P Assessment and plan (1) Necrotizing subcutaneous infection: Status: Acute <Winter Mondragon PA-C - Last Filed: 03/13/22 09:09> Assessment and Plan: Still with induration around this mass site Open wound otherwise clean with good granulation No fever Blood sugars better WBC better Warm compresses I explained to patient that we may need to repeat debridement tomorrow if feel that induration is persistent He understands plan Seen and examined independently <Yoni Valverde MD - Last Filed: 03/13/22 09:24> (2) Diabetes: Status: Acute <Winter Mondragon PA-C - Last Filed: 03/13/22 09:09> Assessment and Plan: 51 year old male admitted with sepsis, perirectal abscess who is now POD #2 s/p I&D of perirectal abscess and debridement of necrotizing soft tissue infection. He continues to improve slowly however there remains significant induration of the abscess site. Continue IV abx, daily wound care of wet to dry dressings. Initiate hot compress to area TID. Repeat CBC in am, NPO after midnight. If no improvement by tomorrow in the induration, may need to proceed with further debridement and exploration of the site. Hospitalists following for medical management, diabetes mellitus diagnosis. Appreciate input. <Winter Mondragon PA-C - Last Filed: 03/13/22 09:09> Time Spent With Patient Time: Total time spent is greater than 50% in coordination of care (as documented) at patient's floor/unit and/or counseling patient: <Winter Mondragon PA-C - Last Filed: 03/13/22 09:09> Quality Stroke Does the patient have a stroke diagnosis?: No <Winter Mondragon PA-C - Last Filed: 03/13/22 09:09> VTE Prior VTE?: No <Winter Mondragon PA-C - Last Filed: 03/13/22 09:09> VTE Risk Level:: Surgical - low <JAVI Yo Last Filed: 03/13/22 09:09> VTE Device Contraindication: N/A - Device Ordered <JAVI Yo Last Filed: 03/13/22 09:09> VTE Drug Contraindication: Treatment Not Indicated <Winter Mondargon PA-C - Last Filed: 03/13/22 09:09>
[2022-03-13 11:12] LABS: Glucose, Whole Blood 198 mg/dL (60-115)
--- NOTE | 2022-03-13 11:37 | HO.PM.IMPN ---
Subjective Subjective Date of Service: 03/13/22 Interval History: Seen in follow-up for new onset type 2 diabetes Interval history. Patient met with dietitian yesterday regarding diabetic diet. Glucose levels have improved. Denies any ongoing polyuria or polydipsia. Review of Systems Review of Systems: Yes all other systems are reviewed and are negative Physical Exam Vital Signs: Vital Signs: Last Vital Signs Temp 98.2 F 03/13/22 07:36 Pulse 84 03/13/22 07:36 Resp 20 03/13/22 07:36 BP 155/75 H 03/13/22 07:36 Pulse Ox 92 03/13/22 07:36 O2 Del Method 03/13/22 07:36 O2 Flow Rate 2 03/11/22 13:25 BMI result Body Mass Index 36.1 Constitutional - Awake and Alert, No apparent distress Eyes - PERRLA, EOMI Cardiovascular - S1S2, RRR, No edema Respiratory - Normal lung expansion, Normal respiratory effort, No respiratory distress, CTA bilaterally Extremities - no calf tenderness bilaterally, no swelling Skin - Warm/Dry Neurological - Alert & oriented x3 Psychological - Appropriate affect Objective Data Active Medications Acetaminophen (Acetaminophen 325 Mg Tablet) 650 mg PO Q6H PRN PRN Reason: Pain, Mild (Pain Scale 1-3) Amlodipine Besylate (Amlodipine Besylate 5 Mg Tablet) 5 mg PO DAILY [facility]; Protocol Last Admin: 03/13/22 08:06 Dose: 5 mg Documented By: RADHA Dextrose (Dextrose 50 % 25 Gm/50 Ml Syringe) 25 gm IVPUSH Q15M PRN; Protocol PRN Reason: per Hypoglycemia Standing Ord. Docusate Sodium (Docusate Sodium 100 Mg Capsule) 100 mg PO BID PRN PRN Reason: constipation Glucose (Glucose Gel 15 Gm Gel..Gram.) 15 gm PO Q15M PRN; Protocol PRN Reason: per Hypoglycemia Standing Ord. Hydromorphone HCl (Hydromorphone Hcl 1 Mg/Ml Syringe) 0.5 mg IVPUSH Q4H PRN; Protocol PRN Reason: Pain, Severe (Pain Scale 7-10) Last Admin: 03/13/22 06:50 Dose: 0.5 mg Documented By: URBANO Piperacillin Sod/Tazobactam (Sod 3.375 gm/ Sodium Chloride) 50 mls @ 100 mls/hr IV Q6H [facility] Last Infusion: 03/13/22 08:55 Dose: 0 mls/hr Documented By: RADHA Insulin Glargine (Insulin Glargine,Hum.Rec.Anlog 100 Unit/Ml 10 Ml Vial) 10 unit SUBCUT BEDTIME [facility] Last Admin: 03/12/22 21:22 Dose: 10 unit Documented By: URBANO Insulin Human Lispro (Insulin Lispro 100 Unit/Ml 3 Ml Vial) 0 unit SUBCUT QIDACHS [facility]; Protocol Last Admin: 03/13/22 08:05 Dose: 4 unit Documented By: RADHA Insulin Human Lispro (Insulin Lispro 100 Unit/Ml 3 Ml Vial) 5 unit SUBCUT QIDACHS [facility] Last Admin: 03/13/22 08:05 Dose: 5 unit Documented By: RADHA Ondansetron HCl (Ondansetron Hcl 4 Mg/2 Ml Vial) 4 mg IVPUSH Q6H PRN PRN Reason: Nausea Oxycodone HCl (Oxycodone Hcl Immed Release 5 Mg Tablet) 5 mg PO Q4H PRN PRN Reason: Pain, Moderate (Pain Scale 4-6 Sodium Chloride (0.9 % Sodium Chloride Flush 3 Ml Syringe) 3 ml IVFLUSH QSHIFT [facility] Last Admin: 03/13/22 08:06 Dose: 3 ml Documented By: RADHA Labs CBC & Chem 7: 03/12/22 06:00 03/12/22 06:00 Labs: Laboratory Results - last 24 hr 03/12/22 03/12/22 03/13/22 16:09 20:02 07:37 POC Glucose 330 H 318 H 206 H 03/13/22 11:09 POC Glucose 198 H Microbiology Microbiology Results: Microbiology 03/11/22 08:46 Blood Culture - Preliminary Blood - Venous No growth after 48 hours. 03/11/22 08:42 Blood Culture - Preliminary Blood - Venous No growth after 48 hours. 03/11/22 Unknown Gram Stain - Final Sary-rectal abscess Routine Culture - Final Strep agalactiae (Grp B) Assessment and Plan (1) Diabetes: Status: Acute Plan Patient without any significant medical history admitted to surgery for gluteal abscess with consult placed for management of new onset type 2 diabetes. # new onset type 2 diabetes-uncontrolled with hyperglycemia -hemoglobin A1c 11.2% -Glucose levels steadily improving -increase Lantus to 15 units nightly at bedtime -discontinue scheduled Humalog and continue with sliding scale with meals -patient had meeting with dietitian regarding diabetic diet and has been educated on insulin and glucometer use -would benefit from outpatient Diabetes Education when discharged -would benefit from community navigation for diabetes.? Case management consult placed, patient also needs PCP -continue POC glucose -diabetic diet # hypertension -BUN/creatinine elevated-unclear baseline.? Follow BMP -Continue amlodipine. Add lisinopril 10mg at bedtime for BP and renal protection given DM diagnosis -MOnitor BP Dispo: Per General surgery. Insulin, pen needles, and testing supplies have been ordered to be sent to patient pharmacy on discharge. Thank you for the opportunity to participate in this consult.? Will continue following.? Please do not hesitate to contact me with questions Quality Stroke Does the patient have a stroke diagnosis?: No VTE Prior VTE?: No VTE Risk Level:: Surgical - low VTE Device Contraindication: N/A - Device Ordered VTE Drug Contraindication: Treatment Not Indicated
[2022-03-13] MEDS: oxyCODONE HCl Immed Release 5 MG TABLET PO ×2 (15:52→20:25)
[2022-03-13 16:15] LABS: Glucose, Whole Blood 259 mg/dL (60-115)
--- NOTE | 2022-03-13 16:25 | PC.NURSE ---
PRN MEDICATION GIVEN WITH POSITIVE EFFECT PRIOR TO DRESSING CHANGE FOR 1630 INSULIN INJECTION PATIENT EDUCATED ON INJECTION TECHNIQUE AND ALLOWED TO SELF INJECT INSULIN, TOLERATED WELL.
[2022-03-13 19:51] LABS: Glucose, Whole Blood 263 mg/dL (60-115)
[2022-03-13] MEDS: lisinopriL 10 MG TABLET PO (20:26)
[2022-03-13] MEDS: Insulin Glargine,Hum.rec.anlog 100 UNIT/ML 10 ML VIAL 15 UNIT SUBCUT (20:27)
[2022-03-14] VITALS (7 sets, daily range): BP systolic 145–169; BP diastolic 76–86; PULSE 79–95; RESP 16–20; TEMP 36.6–37.2; O2SAT 90–97
[2022-03-14] MEDS: 0.9 % Sodium Chloride Flush 3 ML SYRINGE IVFLUSH ×3 (00:42→15:41)
[2022-03-14] MEDS: Acetaminophen 325 MG TABLET 650 MG PO ×2 (03:17→17:15)
[2022-03-14] MEDS: oxyCODONE HCl Immed Release 5 MG TABLET PO ×3 (03:18→16:18)
[2022-03-14] MEDS: Piperacillin Sodium/Tazobactam 3.375 GM in 0.9 % Sodium Chloride 50 ML IV ×4 (03:18→20:17)
--- NOTE | 2022-03-14 07:03 | PC.NURSE ---
While this RN was doing 0400 assessment, patient stated while ambulating to bathroom earlier in the morning (approx 0200) he had become dizzy, stumbled and fallen backwards onto buttocks. Patient states he did not tell staff because he had felt fine afterwards . Patient denies head strike or loss of consciousness. Neuro assessment and VS WNL. Dr. Mcbride notified with no new orders as well as nursing supervisor cutting department. Patient changed to high fall risk and appropriate interventions placed. Education provided regarding needing to call for assistance, bed alarm, etc. and patient verbalizes understanding. Oncoming RN aware.
[2022-03-14 07:21] LABS: Hematocrit 26.7 % (42.0-52.0); Hemoglobin 8.8 g/dl (14.0-18.0); Mean Corpuscular Hemoglobin 30.3 pg (27.0-33.0); Mean Corpuscular Volume 92.1 fL (80.0-98.0); Mean Platelet Volume 11.4 fL (9.4-12.4); Platelet Count 185 X10*3/uL (160-400); Red Cell Distribution Width 11.8 % (11.0-16.0); White Blood Count 17.7 X10*3/uL (4.8-10.8)
[2022-03-14 07:44] LABS: Glucose, Whole Blood 154 mg/dL (60-115)
[2022-03-14] MEDS: Insulin Lispro 100 UNIT/ML 3 ML VIAL SUBCUT ×4 (07:48→20:15)
[2022-03-14] MEDS: lisinopriL 10 MG TABLET PO (07:49)
[2022-03-14] MEDS: amLODIPine Besylate 5 MG TABLET PO (07:49)
[2022-03-14 07:57] LABS: Band Neutrophils Percent 3 % (3-5); Basophils Abs Manual 0.2 X10*3/uL (0.0-0.2); Basophils Percent Manual 1 % (0-2); Eosinophils Absolute Manual 0.2 X10*3/uL (0.0-0.4); Eosinophils Percent Manual 1 % (0-4); Lymphocytes Absolute Manual 3.4 X10*3/uL (1.2-4.9); Lymphocytes Percent Manual 19 % (20-40); Metamyelocytes Absolute 0.4 X10*3/uL; Metamyelocytes Percent 2 %; Monocytes Absolute Manual 0.7 X10*3/uL (0.1-1.2); Monocytes Percent Manual 4 % (2-11); Myelocytes Absolute 0.4 X10*/uL; Myelocytes Percent 2 %; Neutrophils Absolute Manual 12.6 X10*3/uL (2.0-8.3); Neutrophils Percent Manual 68 % (45-73)
[2022-03-14 07:58] LABS: Platelet Estimate NORMAL (NORMAL); Platelet Morphology Comment NORMAL; RBC Morphology NORMAL
--- NOTE | 2022-03-14 08:07 | PM.PNGS ---
Subjective Subjective Date of Service: 03/14/22 <Winter Mondragon PA-C - Last Filed: 03/14/22 08:13> 03/14/22 <Yoni Valverde MD - Last Filed: 03/14/22 09:46> Interval history: Feeling a little better this morning but tired. <Winter Mondragon PA-C - Last Filed: 03/14/22 08:13> Physical Exam Vital Signs: Vital Signs: Last Vital Signs Temp 97.9 F 03/14/22 07:16 Pulse 89 03/14/22 07:16 Resp 16 03/14/22 07:16 BP 145/86 H 03/14/22 07:16 Pulse Ox 95 03/14/22 07:16 O2 Del Method 03/14/22 07:16 O2 Flow Rate 2 03/11/22 13:25 BMI result Body Mass Index 36.1 <Winter Mondragon PA-C - Last Filed: 03/14/22 08:13> Const: General: comfortable, no acute distress and alert <Winter Mondragon PA-C - Last Filed: 03/14/22 08:13> Orientation/consciousness: patient oriented x3 <Winter Mondragon PA-C - Last Filed: 03/14/22 08:13> Resp: Effort & Inspection: normal respiratory effort <Winter Mondragon PA-C - Last Filed: 03/14/22 08:13> Skin: Other: perirectal abscess site- induration persists but improved, exudate of wound base, some granulation, no necrotic tissue or purulence noted <Winter Mondragon PA-C - Last Filed: 03/14/22 08:13> Neuro: General: patient oriented x3 and moves all extremities <JAVI Yo Last Filed: 03/14/22 08:13> Objective Data Active Medications Acetaminophen (Acetaminophen 325 Mg Tablet) 650 mg PO Q6H PRN PRN Reason: Pain, Mild (Pain Scale 1-3) Last Admin: 03/14/22 03:17 Dose: 650 mg Documented By: CLAIR Amlodipine Besylate (Amlodipine Besylate 5 Mg Tablet) 5 mg PO DAILY [facility]; Protocol Last Admin: 03/14/22 07:49 Dose: 5 mg Documented By: ISIDORO Dextrose (Dextrose 50 % 25 Gm/50 Ml Syringe) 25 gm IVPUSH Q15M PRN; Protocol PRN Reason: per Hypoglycemia Standing Ord. Docusate Sodium (Docusate Sodium 100 Mg Capsule) 100 mg PO BID PRN PRN Reason: constipation Glucose (Glucose Gel 15 Gm Gel..Gram.) 15 gm PO Q15M PRN; Protocol PRN Reason: per Hypoglycemia Standing Ord. Hydromorphone HCl (Hydromorphone Hcl 1 Mg/Ml Syringe) 0.5 mg IVPUSH Q4H PRN; Protocol PRN Reason: Pain, Severe (Pain Scale 7-10) Last Admin: 03/13/22 06:50 Dose: 0.5 mg Documented By: URBANO Piperacillin Sod/Tazobactam (Sod 3.375 gm/ Sodium Chloride) 50 mls @ 100 mls/hr IV Q6H [facility] Last Admin: 03/14/22 07:49 Dose: 100 mls/hr Documented By: ISIDORO Insulin Glargine (Insulin Glargine,Hum.Rec.Anlog 100 Unit/Ml 10 Ml Vial) 15 unit SUBCUT BEDTIME [facility] Last Admin: 03/13/22 20:27 Dose: 15 unit Documented By: CLAIR Insulin Human Lispro (Insulin Lispro 100 Unit/Ml 3 Ml Vial) 0 unit SUBCUT QIDACHS [facility]; Protocol Last Admin: 03/14/22 07:48 Dose: 4 unit Documented By: ISIDORO Lisinopril (Lisinopril 10 Mg Tablet) 10 mg PO DAILY [facility]; Protocol Last Admin: 03/14/22 07:49 Dose: 10 mg Documented By: ISIDORO Ondansetron HCl (Ondansetron Hcl 4 Mg/2 Ml Vial) 4 mg IVPUSH Q6H PRN PRN Reason: Nausea Oxycodone HCl (Oxycodone Hcl Immed Release 5 Mg Tablet) 5 mg PO Q4H PRN PRN Reason: Pain, Moderate (Pain Scale 4-6 Last Admin: 03/14/22 03:18 Dose: 5 mg Documented By: CLAIR Sodium Chloride (0.9 % Sodium Chloride Flush 3 Ml Syringe) 3 ml IVFLUSH QSHIFT [facility] Last Admin: 03/14/22 07:49 Dose: 3 ml Documented By: ISIDORO <Winter Mondragon PA-C - Last Filed: 03/14/22 08:13> Labs CBC & Chem 7: : 03/14/22 06:44 03/12/22 06:00 <Winter Mondragon PA-C - Last Filed: 03/14/22 08:13> Labs: Laboratory Results - last 24 hr 03/13/22 03/13/22 03/13/22 11:09 16:12 19:08 MCV MCH MCHC RDW Plt Count MPV Immature Gran % (Auto) Neut % (Auto) Lymph % (Auto) Kimball % (Auto) Eos % (Auto) Baso % (Auto) Lymph # (Auto) Kimball # (Auto) Eos # (Auto) Baso # (Auto) Abs Immat Gran (auto) Absolute Neuts (auto) Absolute Nucleated RBC Nucleated RBC % (auto) Neutrophils % (Manual) Band Neutrophils % Lymphocytes % (Manual) Monocytes % (Manual) Eosinophils % (Manual) Basophils % (Manual) Metamyelocytes % Myelocytes % Abs Neuts (Manual) Lymphocytes # (Manual) Monocytes # (Manual) Eosinophils # (Manual) Basophils # (Manual) Metamyelocytes # Myelocytes # Platelet Estimate Plt Morphology Comment RBC Morphology POC Glucose 198 H 259 H 263 H 03/14/22 03/14/22 06:44 07:18 MCV 92.1 MCH 30.3 MCHC 33.0 RDW 11.8 Plt Count 185 MPV 11.4 Immature Gran % (Auto) Cancelled Neut % (Auto) Cancelled Lymph % (Auto) Cancelled Kimball % (Auto) Cancelled Eos % (Auto) Cancelled Baso % (Auto) Cancelled Lymph # (Auto) Cancelled Kimball # (Auto) Cancelled Eos # (Auto) Cancelled Baso # (Auto) Cancelled Abs Immat Gran (auto) Cancelled Absolute Neuts (auto) Cancelled Absolute Nucleated RBC 0.000 Nucleated RBC % (auto) 0.0 Neutrophils % (Manual) 68 Band Neutrophils % 3 Lymphocytes % (Manual) 19 L Monocytes % (Manual) 4 Eosinophils % (Manual) 1 Basophils % (Manual) 1 Metamyelocytes % 2 Myelocytes % 2 Abs Neuts (Manual) 12.6 H Lymphocytes # (Manual) 3.4 Monocytes # (Manual) 0.7 Eosinophils # (Manual) 0.2 Basophils # (Manual) 0.2 Metamyelocytes # 0.4 Myelocytes # 0.4 Platelet Estimate NORMAL Plt Morphology Comment NORMAL RBC Morphology NORMAL POC Glucose 154 H <Winter Mondragon PA-C - Last Filed: 03/14/22 08:13> Microbiology Microbiology Results: Microbiology 03/11/22 08:46 Blood Culture - Preliminary Blood - Venous No growth after 48 hours. 03/11/22 08:42 Blood Culture - Preliminary Blood - Venous No growth after 48 hours. <Winter Mondragon PA-C - Last Filed: 03/14/22 08:13> Procedures Date of Service Date of Service: 03/14/22 <JAVI Yo Last Filed: 03/14/22 08:13> Progress Note: A&P Assessment and plan (1) Diabetes: Status: Acute <Winter Mondragon PA-C - Last Filed: 03/14/22 08:13> (2) Necrotizing subcutaneous infection: Status: Acute <JAVI Yo Last Filed: 03/14/22 08:13> Assessment and Plan: Dressings changed Good granulation Does not seem to require additional debridement Okay to restart diet Dressings changed to silver alginate Possible discharge home this weekend Seen and examined independently <Yoni Valverde MD - Last Filed: 03/14/22 09:46> Assessment and Plan: 51 year old male admitted with sepsis, perirectal abscess who is now POD #3 s/p I&D of perirectal abscess and debridement of necrotizing soft tissue infection. He continues to improve slowly and induration seems improved will therefore hold off on any further debridement. CBC downtrending. On IV zosyn, daily wound care- silver alginate dressings started today. Hot compresses to area TID to help with induration- explained to patient and RN. Will need a few more days of IV abx. Hospitalists following for medical management, diabetes mellitus new diagnosis. Appreciate input. POCs improving. <Winter Mondragon PA-C - Last Filed: 03/14/22 08:13> Time Spent With Patient Time: Total time spent is greater than 50% in coordination of care (as documented) at patient's floor/unit and/or counseling patient: <Winter Mondragon PA-C - Last Filed: 03/14/22 08:13> Quality Stroke Does the patient have a stroke diagnosis?: No <Winter Mondragon PA-C - Last Filed: 03/14/22 08:13> VTE Prior VTE?: No <Winter Mondragon PA-C - Last Filed: 03/14/22 08:13> VTE Risk Level:: Surgical - low <Winter Mondragon PA-C - Last Filed: 03/14/22 08:13> VTE Device Contraindication: N/A - Device Ordered <Winter Mondragon PA-C - Last Filed: 03/14/22 08:13> VTE Drug Contraindication: Treatment Not Indicated <Winter Mondragon PA-C - Last Filed: 03/14/22 08:13>
--- NOTE | 2022-03-14 09:13 | MHC.CDI.CONC ---
CDI Concurrent Query Documentation Clarification: PHYSICIAN'S DOCUMENTATION REQUEST Date of Query: 03/14/22912 Patient Name: River Luque Admit Date: 03/11/22 Dear Doctor, A review of the medical record indicates additional documentation may be needed. Please review below and update the documentation accordingly. Risk Factors/Clinical Indicators/Treatments BMI: 36.2 5' 8 in height 107.955kg If possible, please provide an associated diagnosis related to the abnormal BMI, such as: For a BMI >= 30: Overweight Obesity Other Unable to determine Use of terms such as suspected, likely, concern for, or probable (associated with a specific diagnosis that is being evaluated, monitored, or treated as if it exists) are acceptable and can be coded in the inpatient setting, when documented at the time of discharge. Thank you, Cheryl Jones [facility], CDIS Extension: [phone] Please use your independent medical judgment in providing your response. THIS QUERY IS PART OF THE PERMANENT MEDICAL RECORD
--- NOTE | 2022-03-14 11:29 | MHC.CM.PN ---
Per documentation from Medical, possible dc over the weekend. Patient has been educated on the need to establish himself with a new PCP asasp r/t new DM diagnosis; until this occurs, he will not qualify for VNA. CM will follow.
[2022-03-14 11:30] LABS: Glucose, Whole Blood 172 mg/dL (60-115)
--- NOTE | 2022-03-14 12:14 | P.PNIM_ITS ---
Subjective Subjective Date of Service: 03/14/22 Interval History: cc: gluteal swelling and pain interval history: tired Cardiovascular Cardiovascular: Reports no additional cardiovascular complaints Respiratory Respiratory: Reports no additional respiratory complaints Physical Exam Vital Signs: Vital Signs: Last Vital Signs Temp 98.2 F 03/14/22 11:04 Pulse 80 03/14/22 11:04 Resp 17 03/14/22 11:04 BP 148/77 H 03/14/22 11:04 Pulse Ox 97 03/14/22 11:04 O2 Del Method 03/14/22 11:04 O2 Flow Rate 2 03/11/22 13:25 BMI result Body Mass Index 36.1 Const: General: comfortable, no acute distress and alert Orientation/consciousness: patient oriented x3 Resp: Effort & Inspection: normal respiratory effort Skin: Other: perirectal abscess site- induration persists but improved, exudate of wound base, some granulation, no necrotic tissue or purulence noted Neuro: General: patient oriented x3 and moves all extremities Objective Data Active Medications Acetaminophen (Acetaminophen 325 Mg Tablet) 650 mg PO Q6H PRN PRN Reason: Pain, Mild (Pain Scale 1-3) Last Admin: 03/14/22 03:17 Dose: 650 mg Documented By: CLAIR Amlodipine Besylate (Amlodipine Besylate 5 Mg Tablet) 5 mg PO DAILY [facility]; [facility] Last Admin: 03/14/22 07:49 Dose: 5 mg Documented By: ISIDORO Dextrose (Dextrose 50 % 25 Gm/50 Ml Syringe) 25 gm IVPUSH Q15M PRN; Protocol PRN Reason: per Hypoglycemia Standing Ord. Docusate Sodium (Docusate Sodium 100 Mg Capsule) 100 mg PO BID PRN PRN Reason: constipation Glucose (Glucose Gel 15 Gm Gel..Gram.) 15 gm PO Q15M PRN; Protocol PRN Reason: per Hypoglycemia Standing Ord. Hydromorphone HCl (Hydromorphone Hcl 1 Mg/Ml Syringe) 0.5 mg IVPUSH Q4H PRN; Protocol PRN Reason: Pain, Severe (Pain Scale 7-10) Last Admin: 03/13/22 06:50 Dose: 0.5 mg Documented By: URBANO Piperacillin Sod/Tazobactam (Sod 3.375 gm/ Sodium Chloride) 50 mls @ 100 mls/hr IV Q6H [facility] Last Infusion: 03/14/22 08:59 Dose: 0 mls/hr Documented By: ISIDORO Insulin Glargine (Insulin Glargine,Hum.Rec.Anlog 100 Unit/Ml 10 Ml Vial) 20 unit SUBCUT BEDTIME [facility] Insulin Human Lispro (Insulin Lispro 100 Unit/Ml 3 Ml Vial) 0 unit SUBCUT QIDACHS [facility]; Protocol Last Admin: 03/14/22 11:34 Dose: 4 unit Documented By: ISIDORO Lisinopril (Lisinopril 10 Mg Tablet) 10 mg PO DAILY [facility]; Protocol Last Admin: 03/14/22 07:49 Dose: 10 mg Documented By: ISIDORO Metformin HCl (Metformin Hcl 500 Mg Tablet) 500 mg PO BIDWM [facility] Ondansetron HCl (Ondansetron Hcl 4 Mg/2 Ml Vial) 4 mg IVPUSH Q6H PRN PRN Reason: Nausea Oxycodone HCl (Oxycodone Hcl Immed Release 5 Mg Tablet) 5 mg PO Q4H PRN PRN Reason: Pain, Moderate (Pain Scale 4-6 Last Admin: 03/14/22 08:13 Dose: 5 mg Documented By: ISIDORO Sodium Chloride (0.9 % Sodium Chloride Flush 3 Ml Syringe) 3 ml IVFLUSH QSHIFT [facility] Last Admin: 03/14/22 07:49 Dose: 3 ml Documented By: ISIDORO Labs CBC & Chem 7: 03/14/22 06:44 03/12/22 06:00 Labs: Laboratory Results - last 24 hr 03/13/22 03/13/22 03/14/22 16:12 19:08 06:44 MCV 92.1 MCH 30.3 MCHC 33.0 RDW 11.8 Plt Count 185 MPV 11.4 Immature Gran % (Auto) Cancelled Neut % (Auto) Cancelled Lymph % (Auto) Cancelled [place] % (Auto) Cancelled Eos % (Auto) Cancelled Baso % (Auto) Cancelled Lymph # (Auto) Cancelled [place] # (Auto) Cancelled Eos # (Auto) Cancelled Baso # (Auto) Cancelled Abs Immat Gran (auto) Cancelled Absolute Neuts (auto) Cancelled Absolute Nucleated RBC 0.000 Nucleated RBC % (auto) 0.0 Neutrophils % (Manual) 68 Band Neutrophils % 3 Lymphocytes % (Manual) 19 L Monocytes % (Manual) 4 Eosinophils % (Manual) 1 Basophils % (Manual) 1 Metamyelocytes % 2 Myelocytes % 2 Abs Neuts (Manual) 12.6 H Lymphocytes # (Manual) 3.4 Monocytes # (Manual) 0.7 Eosinophils # (Manual) 0.2 Basophils # (Manual) 0.2 Metamyelocytes # 0.4 Myelocytes # 0.4 Platelet Estimate NORMAL Plt Morphology Comment NORMAL RBC Morphology NORMAL POC Glucose 259 H 263 H 03/14/22 03/14/22 07:18 11:06 MCV MCH MCHC RDW Plt Count MPV Immature Gran % (Auto) Neut % (Auto) Lymph % (Auto) [place] % (Auto) Eos % (Auto) Baso % (Auto) Lymph # (Auto) [place] # (Auto) Eos # (Auto) Baso # (Auto) Abs Immat Gran (auto) Absolute Neuts (auto) Absolute Nucleated RBC Nucleated RBC % (auto) Neutrophils % (Manual) Band Neutrophils % Lymphocytes % (Manual) Monocytes % (Manual) Eosinophils % (Manual) Basophils % (Manual) Metamyelocytes % Myelocytes % Abs Neuts (Manual) Lymphocytes # (Manual) Monocytes # (Manual) Eosinophils # (Manual) Basophils # (Manual) Metamyelocytes # Myelocytes # Platelet Estimate Plt Morphology Comment RBC Morphology POC Glucose 154 H 172 H Microbiology Microbiology Results: Microbiology 03/11/22 08:46 Blood Culture - Preliminary Blood - Venous No growth after 48 hours. 03/11/22 08:42 Blood Culture - Preliminary Blood - Venous No growth after 48 hours. Assessment and Plan (1) Diabetes: Status: Acute Plan Patient without any significant medical history admitted to surgery for gluteal abscess with consult placed for management of new onset type 2 diabetes. new onset type 2 diabetes-uncontrolled with hyperglycemia related to obesity hemoglobin A1c 11.2% continue basal bolus insulin starting metformin 500mg bid weight loss HTN amlodipine, lisinopril gluteal abscess group b strep conitnue zosyn Quality Stroke Does the patient have a stroke diagnosis?: No VTE Prior VTE?: No VTE Risk Level:: Surgical - low VTE Device Contraindication: N/A - Device Ordered VTE Drug Contraindication: Treatment Not Indicated
[2022-03-14 17:05] LABS: Glucose, Whole Blood 306 mg/dL (60-115)
[2022-03-14] MEDS: metFORMIN HCl 500 MG TABLET PO (17:15)
[2022-03-14 20:04] LABS: Glucose, Whole Blood 280 mg/dL (60-115)
[2022-03-14] MEDS: Insulin Glargine,Hum.rec.anlog 100 UNIT/ML 10 ML VIAL 15 UNIT SUBCUT (20:16)
[2022-03-15] MEDS: 0.9 % Sodium Chloride Flush 3 ML SYRINGE IVFLUSH ×4 (00:07→21:20)
[2022-03-15] MEDS: oxyCODONE HCl Immed Release 5 MG TABLET PO ×3 (00:10→21:21)
[2022-03-15] MEDS: Piperacillin Sodium/Tazobactam 3.375 GM in 0.9 % Sodium Chloride 50 ML IV ×4 (03:55→21:21)
[2022-03-15 04:00] VITALS: BP 160/80; PULSE 77; RESP 20; TEMP 36.8; O2SAT 94
[2022-03-15 07:24] LABS: Hematocrit 27.6 % (42.0-52.0); Hemoglobin 9.2 g/dl (14.0-18.0); Mean Corpuscular HGB Conc 33.3 g/dl (31.0-36.0); Mean Corpuscular Hemoglobin 30.5 pg (27.0-33.0); Mean Corpuscular Volume 91.4 fL (80.0-98.0); Mean Platelet Volume 11.3 fL (9.4-12.4); NRBC Pct Auto 0.1 /100WBC (0.0-0.2); Platelet Count 187 X10*3/uL (160-400); Red Blood Count 3.02 X10*6/uL (4.60-5.80); Red Cell Distribution Width 11.8 % (11.0-16.0); White Blood Count 17.5 X10*3/uL (4.8-10.8)
[2022-03-15 07:27] LABS: Glucose, Whole Blood 179 mg/dL (60-115)
[2022-03-15 07:48] LABS: Anion Gap 13 (12-20); Blood Urea Nitrogen 13 mg/dL (9-16); Calcium 8.2 mg/dL (8.4-10.2); Carbon Dioxide 23 mmol/L (22-29); Chloride 101 mmol/L (96-108); Estimated Glomerular Filt Rate > 60; Glucose Fasting 192 mg/dL (60-99); Potassium 4.7 mmol/L (3.3-5.1); Sodium 132 mmol/L (135-145)
[2022-03-15 08:00] VITALS: BP 178/82; PULSE 85; RESP 20; TEMP 36.8; O2SAT 93
[2022-03-15] MEDS: Insulin Lispro 100 UNIT/ML 3 ML VIAL SUBCUT ×4 (08:45→21:20)
[2022-03-15] MEDS: lisinopriL 10 MG TABLET PO (08:48)
[2022-03-15] MEDS: amLODIPine Besylate 5 MG TABLET PO (08:48)
[2022-03-15] MEDS: metFORMIN HCl 500 MG TABLET PO ×2 (08:48→16:18)
[2022-03-15] MEDS: Acetaminophen 325 MG TABLET 650 MG PO (08:59)
[2022-03-15] MEDS: Docusate Sodium 100 MG CAPSULE PO (09:25)
--- NOTE | 2022-03-15 09:28 | P.PNIM_ITS ---
Subjective Subjective Date of Service: 03/15/22 Interval History: cc: gluteal swelling and pain interval history: feels better Review of Systems no fever or chils Physical Exam Vital Signs: Vital Signs: Last Vital Signs Temp 98.3 F 03/15/22 08:00 Pulse 85 03/15/22 08:00 Resp 20 03/15/22 08:00 BP 178/82 H 03/15/22 08:00 Pulse Ox 93 03/15/22 08:00 O2 Del Method 03/15/22 08:00 O2 Flow Rate 2 03/11/22 13:25 BMI result Body Mass Index 36.1 Const: General: comfortable, no acute distress and alert Orientation/consciousness: patient oriented x3 Resp: Effort & Inspection: normal respiratory effort Skin: Other: perirectal abscess site- induration persists but improved, exudate of wound bas e, some granulation, no necrotic tissue or purulence noted Neuro: General: patient oriented x3 and moves all extremities Objective Data Active Medications Acetaminophen (Acetaminophen 325 Mg Tablet) 650 mg PO Q6H PRN PRN Reason: Pain, Mild (Pain Scale 1-3) Last Admin: 03/15/22 08:59 Dose: 650 mg Documented By: CHANDLER Amlodipine Besylate (Amlodipine Besylate 5 Mg Tablet) 5 mg PO DAILY [facility]; Protocol Last Admin: 03/15/22 08:48 Dose: 5 mg Documented By: CHANDLER Dextrose (Dextrose 50 % 25 Gm/50 Ml Syringe) 25 gm IVPUSH Q15M PRN; Protocol PRN Reason: per Hypoglycemia Standing Ord. Docusate Sodium (Docusate Sodium 100 Mg Capsule) 100 mg PO BID PRN PRN Reason: constipation Last Admin: 03/15/22 09:25 Dose: 100 mg Documented By: CHANDLER Glucose (Glucose Gel 15 Gm Gel..Gram.) 15 gm PO Q15M PRN; Protocol PRN Reason: per Hypoglycemia Standing Ord. Hydromorphone HCl (Hydromorphone Hcl 1 Mg/Ml Syringe) 0.5 mg IVPUSH Q4H PRN; Protocol PRN Reason: Pain, Severe (Pain Scale 7-10) Last Admin: 03/13/22 06:50 Dose: 0.5 mg Documented By: URBANO Piperacillin Sod/Tazobactam (Sod 3.375 gm/ Sodium Chloride) 50 mls @ 100 mls/hr IV Q6H [facility] Last Infusion: 03/15/22 09:26 Dose: 0 mls/hr Documented By: CHANDLER Insulin Glargine (Insulin Glargine,Hum.Rec.Anlog 100 Unit/Ml 10 Ml Vial) 15 unit SUBCUT BEDTIME [facility] Last Admin: 03/14/22 20:16 Dose: 15 unit Documented By: LILLIE Insulin Human Lispro (Insulin Lispro 100 Unit/Ml 3 Ml Vial) 0 unit SUBCUT QIDACHS [facility]; Protocol Last Admin: 03/15/22 08:45 Dose: 4 unit Documented By: CHANDLER Lisinopril (Lisinopril 10 Mg Tablet) 10 mg PO DAILY [facility]; Protocol Last Admin: 03/15/22 08:48 Dose: 10 mg Documented By: CHANDLER Metformin HCl (Metformin Hcl 500 Mg Tablet) 500 mg PO BIDWM [facility] Last Admin: 03/15/22 08:48 Dose: 500 mg Documented By: CHANDLER Ondansetron HCl (Ondansetron Hcl 4 Mg/2 Ml Vial) 4 mg IVPUSH Q6H PRN PRN Reason: Nausea Oxycodone HCl (Oxycodone Hcl Immed Release 5 Mg Tablet) 5 mg PO Q4H PRN PRN Reason: Pain, Moderate (Pain Scale 4-6 Last Admin: 03/15/22 00:10 Dose: 5 mg Documented By: OTF Sodium Chloride (0.9 % Sodium Chloride Flush 3 Ml Syringe) 3 ml IVFLUSH QSHIFT [facility] Last Admin: 03/15/22 08:48 Dose: 3 ml Documented By: CHANDLER Labs CBC & Chem 7: 03/15/22 07:05 03/15/22 07:05 Labs: Laboratory Results - last 24 hr 03/14/22 03/14/22 03/14/22 11:06 16:53 19:36 MCV MCH MCHC RDW Plt Count MPV Absolute Nucleated RBC Nucleated RBC % (auto) Anion Gap Estim Creat Clear Calc Estimated GFR POC Glucose 172 H 306 H 280 H Fasting Glucose Calcium 03/15/22 03/15/22 03/15/22 07:05 07:05 07:18 MCV 91.4 MCH 30.5 MCHC 33.3 RDW 11.8 Plt Count 187 MPV 11.3 Absolute Nucleated RBC 0.020 H Nucleated RBC % (auto) 0.1 Anion Gap 13 Estim Creat Clear Calc 133.0 Estimated GFR > 60 POC Glucose 179 H Fasting Glucose 192 H Calcium 8.2 L Assessment and Plan (1) Diabetes: Status: Acute Plan Patient without any significant medical history admitted to surgery for gluteal abscess with consult placed for management of new onset type 2 diabetes. new onset type 2 diabetes-uncontrolled with hyperglycemia related to obesity hemoglobin A1c 11.2% continue basal bolus insulin started on metformin 500mg bid, increase to 1000 bid weight loss HTN amlodipine, lisinopril gluteal abscess group b strep conitnue zosyn further mnagement per surgery Quality Stroke Does the patient have a stroke diagnosis?: No VTE Prior VTE?: No VTE Risk Level:: Surgical - low VTE Device Contraindication: N/A - Device Ordered VTE Drug Contraindication: Treatment Not Indicated
[2022-03-15 11:06] LABS: Glucose, Whole Blood 266 mg/dL (60-115)
--- NOTE | 2022-03-15 11:13 | P.PNGS_ITS ---
Subjective Subjective Date of Service: 03/15/22 Patient reports: no new complaints and feels better Interval history: The patient is seen in coverage for Dr. Valverde Chart in sign-out reviewed. Patient reports he is feeling better. In discussing wound care with the patient's nurse, they have just been applying ABDs on the outside of the ulcer. The nurse states that the dressing was just changed earlier. We reviewed the dressing instructions as ordered by Dr. Valverde with the nurse and she will apply silver alginate dressings later this morning. Patient otherwise denies interval change and has no chest pain, difficulty breathing or shortness of breath. Physical Exam Vital Signs: Vital Signs: Last Vital Signs Temp 98.3 F 03/15/22 08:00 Pulse 85 03/15/22 08:00 Resp 20 03/15/22 08:00 BP 178/82 H 03/15/22 08:00 Pulse Ox 93 03/15/22 08:00 O2 Del Method 03/15/22 08:00 O2 Flow Rate 2 03/11/22 13:25 BMI result Body Mass Index 36.1 As noted, dressing was just changed and is left intact Objective Data Active Medications Acetaminophen (Acetaminophen 325 Mg Tablet) 650 mg PO Q6H PRN PRN Reason: Pain, Mild (Pain Scale 1-3) Last Admin: 03/15/22 08:59 Dose: 650 mg Documented By: CHANDLER Amlodipine Besylate (Amlodipine Besylate 5 Mg Tablet) 5 mg PO DAILY [facility]; Protocol Last Admin: 03/15/22 08:48 Dose: 5 mg Documented By: CHANDLER Dextrose (Dextrose 50 % 25 Gm/50 Ml Syringe) 25 gm IVPUSH Q15M PRN; Protocol PRN Reason: per Hypoglycemia Standing Ord. Docusate Sodium (Docusate Sodium 100 Mg Capsule) 100 mg PO BID PRN PRN Reason: constipation Last Admin: 03/15/22 09:25 Dose: 100 mg Documented By: CHANDLER Glucose (Glucose Gel 15 Gm Gel..Gram.) 15 gm PO Q15M PRN; Protocol PRN Reason: per Hypoglycemia Standing Ord. Hydromorphone HCl (Hydromorphone Hcl 1 Mg/Ml Syringe) 0.5 mg IVPUSH Q4H PRN; Protocol PRN Reason: Pain, Severe (Pain Scale 7-10) Last Admin: 03/13/22 06:50 Dose: 0.5 mg Documented By: URBANO Piperacillin Sod/Tazobactam (Sod 3.375 gm/ Sodium Chloride) 50 mls @ 100 mls/hr IV Q6H [facility] Last Infusion: 03/15/22 09:26 Dose: 0 mls/hr Documented By: CHANDLER Insulin Glargine (Insulin Glargine,Hum.Rec.Anlog 100 Unit/Ml 10 Ml Vial) 15 unit SUBCUT BEDTIME [facility] Last Admin: 03/14/22 20:16 Dose: 15 unit Documented By: LILLIE Insulin Human Lispro (Insulin Lispro 100 Unit/Ml 3 Ml Vial) 0 unit SUBCUT QIDACHS [facility]; Protocol Last Admin: 03/15/22 08:45 Dose: 4 unit Documented By: CHANDLER Lisinopril (Lisinopril 10 Mg Tablet) 10 mg PO DAILY [facility]; Protocol Last Admin: 03/15/22 08:48 Dose: 10 mg Documented By: CHANDLER Metformin HCl (Metformin Hcl 500 Mg Tablet) 500 mg PO BIDWM [facility] Last Admin: 03/15/22 08:48 Dose: 500 mg Documented By: CHANDLER Ondansetron HCl (Ondansetron Hcl 4 Mg/2 Ml Vial) 4 mg IVPUSH Q6H PRN PRN Reason: Nausea Oxycodone HCl (Oxycodone Hcl Immed Release 5 Mg Tablet) 5 mg PO Q4H PRN PRN Reason: Pain, Moderate (Pain Scale 4-6 Last Admin: 03/15/22 00:10 Dose: 5 mg Documented By: OTF Sodium Chloride (0.9 % Sodium Chloride Flush 3 Ml Syringe) 3 ml IVFLUSH QSHIFT [facility] Last Admin: 03/15/22 08:48 Dose: 3 ml Documented By: CHANDLER Labs CBC & Chem 7: 03/15/22 07:05 03/15/22 07:05 Labs: Laboratory Results - last 24 hr 03/14/22 03/14/22 03/14/22 11:06 16:53 19:36 MCV MCH MCHC RDW Plt Count MPV Absolute Nucleated RBC Nucleated RBC % (auto) Anion Gap Estim Creat Clear Calc Estimated GFR POC Glucose 172 H 306 H 280 H Fasting Glucose Calcium 03/15/22 03/15/22 03/15/22 07:05 07:05 07:18 MCV 91.4 MCH 30.5 MCHC 33.3 RDW 11.8 Plt Count 187 MPV 11.3 Absolute Nucleated RBC 0.020 H Nucleated RBC % (auto) 0.1 Anion Gap 13 Estim Creat Clear Calc 133.0 Estimated GFR > 60 POC Glucose 179 H Fasting Glucose 192 H Calcium 8.2 L 03/15/22 10:52 MCV MCH MCHC RDW Plt Count MPV Absolute Nucleated RBC Nucleated RBC % (auto) Anion Gap Estim Creat Clear Calc Estimated GFR POC Glucose 266 H Fasting Glucose Calcium Procedures Date of Service Date of Service: 03/15/22 Progress Note: A&P Assessment and plan (1) Necrotizing subcutaneous infection: Status: Acute (2) Abscess: Status: Acute (3) Abscess, gluteal cleft: Status: Acute (4) Diabetes: Status: Acute (5) Poorly controlled type 2 diabetes mellitus: Status: Acute Plan Start silver alginate as ordered by Dr. Valverde Patient's poorly controlled type 2 diabetes is noted with hemoglobin A1c 11.4. This is likely contributing to infections and may be a factor in slow healing; follow-up for better diabetes management is in order. Time Spent With Patient Time: Total time spent is greater than 50% in coordination of care (as documented) at patient's floor/unit and/or counseling patient: Quality Stroke Does the patient have a stroke diagnosis?: No VTE Prior VTE?: No VTE Risk Level:: Surgical - low VTE Device Contraindication: N/A - Device Ordered VTE Drug Contraindication: Treatment Not Indicated
[2022-03-15 11:56] VITALS: BP 156/77; PULSE 84; RESP 20; TEMP 36.9; O2SAT 93
[2022-03-15 15:37] VITALS: BP 160/81; PULSE 90; RESP 18; TEMP 37; O2SAT 92
[2022-03-15 15:43] LABS: Glucose, Whole Blood 249 mg/dL (60-115)
[2022-03-15 20:00] VITALS: BP 158/80; PULSE 83; RESP 20; TEMP 36.6; O2SAT 97
[2022-03-15 20:57] LABS: Glucose, Whole Blood 247 mg/dL (60-115)
[2022-03-15] MEDS: Insulin Glargine,Hum.rec.anlog 100 UNIT/ML 10 ML VIAL 15 UNIT SUBCUT (21:19)
[2022-03-16] VITALS (7 sets, daily range): BP systolic 158–168; BP diastolic 78–89; PULSE 72–89; RESP 15–20; TEMP 36.3–37.1; O2SAT 92–98
[2022-03-16] MEDS: Piperacillin Sodium/Tazobactam 3.375 GM in 0.9 % Sodium Chloride 50 ML IV ×4 (02:32→20:33)
[2022-03-16] MEDS: lisinopriL 10 MG TABLET PO (07:45)
[2022-03-16] MEDS: metFORMIN HCl 500 MG TABLET PO ×2 (07:45→16:42)
[2022-03-16] MEDS: 0.9 % Sodium Chloride Flush 3 ML SYRINGE IVFLUSH ×3 (07:46→20:33)
[2022-03-16] MEDS: amLODIPine Besylate 5 MG TABLET PO (07:46)
[2022-03-16] MEDS: Insulin Lispro 100 UNIT/ML 3 ML VIAL SUBCUT ×4 (07:46→20:32)
[2022-03-16 08:40] LABS: Glucose, Whole Blood 178 mg/dL (60-115)
--- NOTE | 2022-03-16 09:18 | P.PNIM_ITS ---
Subjective Subjective Date of Service: 03/16/22 Interval History: cc: gluteal swelling and pain interval history: feels better, no new issues Review of Systems no fever or chils Physical Exam Vital Signs: Vital Signs: Last Vital Signs Temp 98.1 F 03/16/22 07:30 Pulse 80 03/16/22 07:30 Resp 20 03/16/22 07:30 BP 161/81 H 03/16/22 07:30 Pulse Ox 94 03/16/22 07:30 O2 Del Method 03/16/22 07:30 O2 Flow Rate 2 03/11/22 13:25 BMI result Body Mass Index 36.1 Const: General: comfortable, no acute distress and alert Orientatio n/consciousness: patient oriented x3 Resp: Effort & Inspection: normal respiratory effort Skin: Other: perirectal abscess site- induration persists but improved, exudate of wound base, some granulation, no necrotic tissue or purulence noted Neuro: General: patient oriented x3 and moves all extremities Objective Data Active Medications Acetaminophen (Acetaminophen 325 Mg Tablet) 650 mg PO Q6H PRN PRN Reason: Pain, Mild (Pain Scale 1-3) Last Admin: 03/15/22 08:59 Dose: 650 mg Documented By: CHANDLER Amlodipine Besylate (Amlodipine Besylate 5 Mg Tablet) 5 mg PO DAILY [facility]; Protocol Last Admin: 03/16/22 07:46 Dose: 5 mg Documented By: CHANDLER Dextrose (Dextrose 50 % 25 Gm/50 Ml Syringe) 25 gm IVPUSH Q15M PRN; Protocol PRN Reason: per Hypoglycemia Standing Ord. Docusate Sodium (Docusate Sodium 100 Mg Capsule) 100 mg PO BID PRN PRN Reason: constipation Last Admin: 03/15/22 09:25 Dose: 100 mg Documented By: CHANDLER Glucose (Glucose Gel 15 Gm Gel..Gram.) 15 gm PO Q15M PRN; Protocol PRN Reason: per Hypoglycemia Standing Ord. Piperacillin Sod/Tazobactam (Sod 3.375 gm/ Sodium Chloride) 50 mls @ 100 mls/hr IV Q6H [facility] Last Admin: 03/16/22 07:46 Dose: 100 mls/hr Documented By: CHANDLER Insulin Glargine (Insulin Glargine,Hum.Rec.Anlog 100 Unit/Ml 10 Ml Vial) 15 unit SUBCUT BEDTIME [facility] Last Admin: 03/15/22 21:19 Dose: 15 unit Documented By: CECILIA Insulin Human Lispro (Insulin Lispro 100 Unit/Ml 3 Ml Vial) 0 unit SUBCUT QIDACHS [facility]; Protocol Last Admin: 03/16/22 07:46 Dose: 4 unit Documented By: CHANDLER Lisinopril (Lisinopril 10 Mg Tablet) 10 mg PO DAILY [facility]; Protocol Last Admin: 03/16/22 07:45 Dose: 10 mg Documented By: CHANDLER Metformin HCl (Metformin Hcl 500 Mg Tablet) 500 mg PO BIDWM [facility] Last Admin: 03/16/22 07:45 Dose: 500 mg Documented By: CHANDLER Ondansetron HCl (Ondansetron Hcl 4 Mg/2 Ml Vial) 4 mg IVPUSH Q6H PRN PRN Reason: Nausea Sodium Chloride (0.9 % Sodium Chloride Flush 3 Ml Syringe) 3 ml IVFLUSH QSHIFT [facility] Last Admin: 03/16/22 07:46 Dose: 3 ml Documented By: CHANDLER Labs CBC & Chem 7: 03/15/22 07:05 03/15/22 07:05 Labs: Laboratory Results - last 24 hr 03/15/22 03/15/22 03/15/22 10:52 15:38 20:54 POC Glucose 266 H 249 H 247 H 03/16/22 07:32 POC Glucose 178 H Assessment and Plan (1) Diabetes: Status: Acute Plan Patient without any significant medical history admitted to surgery for gluteal abscess with consult placed for management of new onset type 2 diabetes. new onset type 2 diabetes-uncontrolled with hyperglycemia related to obesity hemoglobin A1c 11.2% continue basal bolus insulin started on metformin 500mg bid, increase to 1000 bid weight loss, excercisee insulin teaching HTN amlodipine, lisinopril gluteal abscess group b strep conitnue zosyn further mnagement per surgery Quality Stroke Does the patient have a stroke diagnosis?: No VTE Prior VTE?: No VTE Risk Level:: Surgical - low VTE Device Contraindication: N/A - Device Ordered VTE Drug Contraindication: Treatment Not Indicated
[2022-03-16] MEDS: Acetaminophen 325 MG TABLET 650 MG PO ×3 (09:40→22:24)
[2022-03-16 11:21] LABS: Glucose, Whole Blood 198 mg/dL (60-115)
--- NOTE | 2022-03-16 15:47 | PM.PNGS ---
Subjective Subjective Date of Service: 03/16/22 Patient reports: no new complaints and still having pain Interval history: The patient is seen in coverage in reports continued ongoing pain as well as the significant amount of drainage. Nursing staff notes they are performing silver alginate dressings daily as ordered. Patient otherwise denies new complaints such as chest pain, difficulty breathing or shortness of breath. Physical Exam Vital Signs: Vital Signs: Last Vital Signs Temp 98.7 F 03/16/22 11:54 Pulse 80 03/16/22 11:54 Resp 20 03/16/22 11:54 BP 158/82 H 03/16/22 11:54 Pulse Ox 92 03/16/22 11:54 O2 Del Method 03/16/22 11:54 O2 Flow Rate 2 03/11/22 13:25 BMI result Body Mass Index 36.1 Patient's dressing was just changed by nursing staff and was clean, dry and intact. Nursing staff still reports significant amounts of drainage Objective Data Active Medications Acetaminophen (Acetaminophen 325 Mg Tablet) 650 mg PO Q6H PRN PRN Reason: Pain, Mild (Pain Scale 1-3) Last Admin: 03/16/22 15:36 Dose: 650 mg Documented By: CHANDLER Amlodipine Besylate (Amlodipine Besylate 5 Mg Tablet) 5 mg PO DAILY [facility]; Protocol Last Admin: 03/16/22 07:46 Dose: 5 mg Documented By: CHANDLER Dextrose (Dextrose 50 % 25 Gm/50 Ml Syringe) 25 gm IVPUSH Q15M PRN; Protocol PRN Reason: per Hypoglycemia Standing Ord. Docusate Sodium (Docusate Sodium 100 Mg Capsule) 100 mg PO BID PRN PRN Reason: constipation Last Admin: 03/15/22 09:25 Dose: 100 mg Documented By: CHANDLER Glucose (Glucose Gel 15 Gm Gel..Gram.) 15 gm PO Q15M PRN; Protocol PRN Reason: per Hypoglycemia Standing Ord. Piperacillin Sod/Tazobactam (Sod 3.375 gm/ Sodium Chloride) 50 mls @ 100 mls/hr IV Q6H [facility] Last Infusion: 03/16/22 15:36 Dose: 0 mls/hr Documented By: CHANDLER Insulin Glargine (Insulin Glargine,Hum.Rec.Anlog 100 Unit/Ml 10 Ml Vial) 15 unit SUBCUT BEDTIME [facility] Last Admin: 03/15/22 21:19 Dose: 15 unit Documented By: JESSICATEKNicanor Insulin Human Lispro (Insulin Lispro 100 Unit/Ml 3 Ml Vial) 0 unit SUBCUT QIDACHS [facility]; Protocol Last Admin: 03/16/22 11:56 Dose: 4 unit Documented By: CHANDLER Lisinopril (Lisinopril 10 Mg Tablet) 10 mg PO DAILY [facility]; Protocol Last Admin: 03/16/22 07:45 Dose: 10 mg Documented By: CHANDLER Metformin HCl (Metformin Hcl 500 Mg Tablet) 500 mg PO BIDWM [facility] Last Admin: 03/16/22 07:45 Dose: 500 mg Documented By: CHANDLER Ondansetron HCl (Ondansetron Hcl 4 Mg/2 Ml Vial) 4 mg IVPUSH Q6H PRN PRN Reason: Nausea Sodium Chloride (0.9 % Sodium Chloride Flush 3 Ml Syringe) 3 ml IVFLUSH QSHIFT [facility] Last Admin: 03/16/22 07:46 Dose: 3 ml Documented By: CHANDLER Labs CBC & Chem 7: 03/15/22 07:05 03/15/22 07:05 Labs: Laboratory Results - last 24 hr 03/15/22 03/16/22 03/16/22 20:54 07:32 11:13 POC Glucose 247 H 178 H 198 H Microbiology Microbiology Results: Microbiology 03/11/22 08:46 Blood Culture - Final Blood - Venous No growth after 5 days. 03/11/22 08:42 Blood Culture - Final Blood - Venous No growth after 5 days. Procedures Date of Service Date of Service: 03/16/22 Progress Note: A&P Assessment and plan (1) Abscess, gluteal cleft: Status: Acute (2) Abscess: Status: Acute (3) Necrotizing subcutaneous infection: Status: Acute (4) Poorly controlled type 2 diabetes mellitus: Status: Acute Plan Continue present management. Repeat labs in a.m. Dr. Valverde to resume care tomorrow, 03/17/2022 Time Spent With Patient Time: Total time spent is greater than 50% in coordination of care (as documented) at patient's floor/unit and/or counseling patient: Quality Stroke Does the patient have a stroke diagnosis?: No VTE Prior VTE?: No VTE Risk Level:: Surgical - low VTE Device Contraindication: N/A - Device Ordered VTE Drug Contraindication: Treatment Not Indicated
[2022-03-16 16:04] LABS: Glucose, Whole Blood 235 mg/dL (60-115)
[2022-03-16 19:48] LABS: Glucose, Whole Blood 239 mg/dL (60-115)
[2022-03-16] MEDS: Insulin Glargine,Hum.rec.anlog 100 UNIT/ML 10 ML VIAL 15 UNIT SUBCUT (20:32)
[2022-03-17 03:12] VITALS: BP 156/80; PULSE 78; RESP 16; TEMP 36.2; O2SAT 97
[2022-03-17] MEDS: Piperacillin Sodium/Tazobactam 3.375 GM in 0.9 % Sodium Chloride 50 ML IV ×4 (03:12→20:34)
[2022-03-17 07:04] VITALS: BP 165/84; PULSE 80; RESP 17; TEMP 36.4; O2SAT 95
[2022-03-17 07:07] LABS: MANUAL DIFF FLAG NO
[2022-03-17 07:10] LABS: Basophils Absolute Auto 0.1 X10*3/uL (0.0-0.2); Basophils Percent Auto 0.8 % (0-2); Eosinophils Absolute Auto 0.3 X10*3/uL (0.0-0.4); Eosinophils Percent Auto 1.8 % (0-4); Hematocrit 31.2 % (42.0-52.0); Hemoglobin 10.4 g/dl (14.0-18.0); Imm Gran Abs Auto 0.73 X10*3/uL (0.00-0.03); Imm Gran Pct Auto 4.2 % (0.0-0.4); Lymphocytes Absolute Auto 2.9 X10*3/uL (1.2-4.9); Mean Corpuscular HGB Conc 33.3 g/dl (31.0-36.0); Mean Corpuscular Hemoglobin 30.3 pg (27.0-33.0); Mean Platelet Volume 11.2 fL (9.4-12.4); Monocytes Absolute Auto 0.9 X10*3/uL (0.1-1.2); Monocytes Percent Auto 5.2 % (2-11); Neutrophils Absolute Auto 12.2 x10*3/uL (2.0-8.3); Platelet Count 265 X10*3/uL (160-400); Red Blood Count 3.43 X10*6/uL (4.60-5.80); Red Cell Distribution Width 11.8 % (11.0-16.0); White Blood Count 17.2 X10*3/uL (4.8-10.8)
[2022-03-17 07:27] LABS: Glucose, Whole Blood 171 mg/dL (60-115)
[2022-03-17 07:34] LABS: Anion Gap 14 (12-20); Blood Urea Nitrogen 10 mg/dL (9-16); Calcium 8.8 mg/dL (8.4-10.2); Carbon Dioxide 27 mmol/L (22-29); Chloride 99 mmol/L (96-108); Creatinine Clr Calc Pharmacy 125.2; Estimated Glomerular Filt Rate > 60; Glucose Random 185 mg/dL (60-115); Potassium 4.9 mmol/L (3.3-5.1); Sodium 135 mmol/L (135-145)
[2022-03-17] MEDS: Acetaminophen 325 MG TABLET 650 MG PO ×3 (08:22→22:20)
[2022-03-17] MEDS: lisinopriL 10 MG TABLET PO (08:22)
[2022-03-17] MEDS: amLODIPine Besylate 5 MG TABLET PO (08:22)
[2022-03-17] MEDS: metFORMIN HCl 500 MG TABLET PO (08:22)
[2022-03-17] MEDS: 0.9 % Sodium Chloride Flush 3 ML SYRINGE IVFLUSH ×2 (08:23→16:09)
[2022-03-17] MEDS: Insulin Lispro 100 UNIT/ML 3 ML VIAL SUBCUT ×4 (08:23→20:33)
--- NOTE | 2022-03-17 08:54 | PM.PNGS ---
Subjective Subjective Date of Service: 03/17/22 <Winter Mondragon PA-C - Last Filed: 03/17/22 08:57> 03/17/22 <Yoni Valverde MD - Last Filed: 03/17/22 12:04> Interval history: Feels better and asking to go home. <Winter Mondragon PA-C - Last Filed: 03/17/22 08:57> Physical Exam Vital Signs: Vital Signs: Last Vital Signs Temp 97.5 F 03/17/22 07:04 Pulse 80 03/17/22 07:04 Resp 17 03/17/22 07:04 BP 165/84 H 03/17/22 07:04 Pulse Ox 95 03/17/22 07:04 O2 Del Method 03/17/22 07:04 O2 Flow Rate 2 03/11/22 13:25 BMI result Body Mass Index 36.1 <Winter Mondragon PA-C - Last Filed: 03/17/22 08:57> Const: General: comfortable, no acute distress and alert <Winter Monrdagon PA-C - Last Filed: 03/17/22 08:57> Orientation/consciousness: patient oriented x3 <Winter Mondragon PA-C - Last Filed: 03/17/22 08:57> Resp: Effort & Inspection: normal respiratory effort <Winter Mondragon PA-C - Last Filed: 03/17/22 08:57> Skin: Other: dressing changed this morning, intact, dry <Winter Mondragon PA-C - Last Filed: 03/17/22 08:57> Neuro: General: patient oriented x3 <Winter Mondragon PA-C - Last Filed: 03/17/22 08:57> Objective Data Active Medications Acetaminophen (Acetaminophen 325 Mg Tablet) 650 mg PO Q6H PRN PRN Reason: Pain, Mild (Pain Scale 1-3) Last Admin: 03/17/22 08:22 Dose: 650 mg Documented By: KEVON Amlodipine Besylate (Amlodipine Besylate 5 Mg Tablet) 5 mg PO DAILY [facility]; Protocol Last Admin: 03/17/22 08:22 Dose: 5 mg Documented By: KEVON Dextrose (Dextrose 50 % 25 Gm/50 Ml Syringe) 25 gm IVPUSH Q15M PRN; Protocol PRN Reason: per Hypoglycemia Standing Ord. Docusate Sodium (Docusate Sodium 100 Mg Capsule) 100 mg PO BID PRN PRN Reason: constipation Last Admin: 03/15/22 09:25 Dose: 100 mg Documented By: CHANDLER Glucose (Glucose Gel 15 Gm Gel..Gram.) 15 gm PO Q15M PRN; Protocol PRN Reason: per Hypoglycemia Standing Ord. Piperacillin Sod/Tazobactam (Sod 3.375 gm/ Sodium Chloride) 50 mls @ 100 mls/hr IV Q6H [facility] Last Admin: 03/17/22 08:22 Dose: 100 mls/hr Documented By: KEVON Insulin Glargine (Insulin Glargine,Hum.Rec.Anlog 100 Unit/Ml 10 Ml Vial) 15 unit SUBCUT BEDTIME [facility] Last Admin: 03/16/22 20:32 Dose: 15 unit Documented By: HUA Insulin Human Lispro (Insulin Lispro 100 Unit/Ml 3 Ml Vial) 0 unit SUBCUT QIDACHS [facility]; Protocol Last Admin: 03/17/22 08:23 Dose: 4 unit Documented By: KEVON Lisinopril (Lisinopril 10 Mg Tablet) 10 mg PO DAILY [facility]; Protocol Last Admin: 03/17/22 08:22 Dose: 10 mg Documented By: KEVON Metformin HCl (Metformin Hcl 500 Mg Tablet) 500 mg PO BIDWM [facility] Last Admin: 03/17/22 08:22 Dose: 500 mg Documented By: KEVON Ondansetron HCl (Ondansetron Hcl 4 Mg/2 Ml Vial) 4 mg IVPUSH Q6H PRN PRN Reason: Nausea Sodium Chloride (0.9 % Sodium Chloride Flush 3 Ml Syringe) 3 ml IVFLUSH QSHIFT [facility] Last Admin: 03/17/22 08:23 Dose: 3 ml Documented By: KEVON <Winter Mondragon PA-C - Last Filed: 03/17/22 08:57> Labs CBC & Chem 7: : 03/17/22 06:53 03/17/22 06:53 <Winter Mondragon PA-C - Last Filed: 03/17/22 08:57> Labs: Laboratory Results - last 24 hr 03/16/22 03/16/22 03/16/22 11:13 15:59 19:09 MCV MCH MCHC RDW Plt Count MPV Immature Gran % (Auto) Neut % (Auto) Lymph % (Auto) [place] % (Auto) Eos % (Auto) Baso % (Auto) Lymph # (Auto) [place] # (Auto) Eos # (Auto) Baso # (Auto) Abs Immat Gran (auto) Absolute Neuts (auto) Absolute Nucleated RBC Nucleated RBC % (auto) Anion Gap Estim Creat Clear Calc Estimated GFR POC Glucose 198 H 235 H 239 H Random Glucose Calcium 03/17/22 03/17/22 03/17/22 06:53 06:53 07:11 MCV 91.0 MCH 30.3 MCHC 33.3 RDW 11.8 Plt Count 265 D MPV 11.2 Immature Gran % (Auto) 4.2 H Neut % (Auto) 71.0 Lymph % (Auto) 17.0 L [place] % (Auto) 5.2 Eos % (Auto) 1.8 Baso % (Auto) 0.8 Lymph # (Auto) 2.9 [place] # (Auto) 0.9 Eos # (Auto) 0.3 Baso # (Auto) 0.1 Abs Immat Gran (auto) 0.73 H Absolute Neuts (auto) 12.2 H Absolute Nucleated RBC 0.000 Nucleated RBC % (auto) 0.0 Anion Gap 14 Estim Creat Clear Calc 125.2 Estimated GFR > 60 POC Glucose 171 H Random Glucose 185 H D Calcium 8.8 D <Winter Mondragon PA-C - Last Filed: 03/17/22 08:57> Microbiology Microbiology Results: Microbiology 03/11/22 08:46 Blood Culture - Final Blood - Venous No growth after 5 days. 03/11/22 08:42 Blood Culture - Final Blood - Venous No growth after 5 days. <Winter Mondragon PA-C - Last Filed: 03/17/22 08:57> Procedures Date of Service Date of Service: 03/17/22 <Winter Mondragon PA-C - Last Filed: 03/17/22 08:57> Progress Note: A&P Assessment and plan (1) Poorly controlled type 2 diabetes mellitus: Status: Acute <Winter Mondragon PA-C - Last Filed: 03/17/22 08:57> (2) Necrotizing subcutaneous infection: Status: Acute <Winter Mondragon PA-C - Last Filed: 03/17/22 08:57> Assessment and Plan: there is still some significant induration on the right buttock wound is otherwise clean with some fibrinous exudates drainage his pain is much better his white count is still at 17 I explained to him that I will re-evaluate him tomorrow and decide if we need to do further debridement he otherwise has been afebrile and looks more comfortable I have changed his dressings and reapplied silver alginate seen and examined independently <Yoni Valverde MD - Last Filed: 03/17/22 12:04> (3) Abscess, gluteal cleft: Status: Acute <Winter Mondragon PA-C - Last Filed: 03/17/22 08:57> Assessment and Plan: 51 year old male admitted with sepsis, perirectal abscess who is s/p I&D of perirectal abscess and debridement of necrotizing soft tissue infection. He reports overall improvement but wound continues with induration which is mildly improved and WBC count is hovering at 17. On IV zosyn, daily wound care with silver alginate. Dressing changed this morning by Dr. Valverde. Continue hot compresses to area TID to help with induration. Will make NPO tonight at midnight. If no further improvement in WBC count, induration, may require further debridement/I&D of wound for possible undrained collection. Hospitalists following for medical management, diabetes mellitus new diagnosis. Appreciate input. <Winter Mondragon PA-C - Last Filed: 03/17/22 08:57> Time Spent With Patient Time: Total time spent is greater than 50% in coordination of care (as documented) at patient's floor/unit and/or counseling patient: <Winter Mondragon PA-C - Last Filed: 03/17/22 08:57> Quality Stroke Does the patient have a stroke diagnosis?: No <Winter Mondragon PA-C - Last Filed: 03/17/22 08:57> VTE Prior VTE?: No <Winter Mondragon PA-C - Last Filed: 03/17/22 08:57> VTE Risk Level:: Surgical - low <Winter Mondragon PA-C - Last Filed: 03/17/22 08:57> VTE Device Contraindication: N/A - Device Ordered <Winter Mondragon PA-C - Last Filed: 03/17/22 08:57> VTE Drug Contraindication: Treatment Not Indicated <Winter Mondragon PA-C - Last Filed: 03/17/22 08:57>
[2022-03-17 11:13] LABS: Glucose, Whole Blood 236 mg/dL (60-115)
[2022-03-17 11:19] VITALS: BP 155/79; PULSE 87; RESP 17; TEMP 36.7; O2SAT 98
--- NOTE | 2022-03-17 13:01 | MHC.CM.PN ---
Per Surgeon, Patient may be ready for dc to home tomorrow; CM will follow.
[2022-03-17 16:00] VITALS: BP 172/80; PULSE 80; RESP 17; TEMP 36.9; O2SAT 96
[2022-03-17] MEDS: metFORMIN HCl 1,000 MG TABLET 1000 MG PO (16:08)
[2022-03-17 17:15] LABS: Glucose, Whole Blood 232 mg/dL (60-115)
[2022-03-17 19:15] VITALS: BP 170/80; PULSE 80; RESP 17; TEMP 36.6; O2SAT 96
[2022-03-17 20:07] LABS: Glucose, Whole Blood 203 mg/dL (60-115)
[2022-03-17] MEDS: Insulin Glargine,Hum.rec.anlog 100 UNIT/ML 10 ML VIAL 15 UNIT SUBCUT (20:34)
[2022-03-17 23:08] VITALS: BP 162/83; PULSE 76; RESP 18; TEMP 36.9; O2SAT 94
[2022-03-18] MEDS: 0.9 % Sodium Chloride Flush 3 ML SYRINGE IVFLUSH ×2 (00:37→08:29)
[2022-03-18 03:11] VITALS: BP 179/82; PULSE 88; RESP 20; TEMP 36.4; O2SAT 91
[2022-03-18] MEDS: Piperacillin Sodium/Tazobactam 3.375 GM in 0.9 % Sodium Chloride 50 ML IV ×2 (05:32→08:29)
[2022-03-18] MEDS: Acetaminophen 325 MG TABLET 650 MG PO (05:42)
[2022-03-18] MEDS: oxyCODONE HCl Immed Release 5 MG TABLET PO (06:22)
[2022-03-18 06:56] LABS: Hematocrit 28.5 % (42.0-52.0); Hemoglobin 9.6 g/dl (14.0-18.0); Mean Corpuscular HGB Conc 33.7 g/dl (31.0-36.0); Mean Corpuscular Hemoglobin 30.5 pg (27.0-33.0); Mean Corpuscular Volume 90.5 fL (80.0-98.0); Mean Platelet Volume 10.6 fL (9.4-12.4); Platelet Count 260 X10*3/uL (160-400); Red Blood Count 3.15 X10*6/uL (4.60-5.80); Red Cell Distribution Width 11.9 % (11.0-16.0); White Blood Count 14.6 X10*3/uL (4.8-10.8)
[2022-03-18 07:15] VITALS: BP 159/77; PULSE 72; RESP 18; TEMP 36.6; O2SAT 95
[2022-03-18 07:18] LABS: Anion Gap 12 (12-20); Blood Urea Nitrogen 11 mg/dL (9-16); Calcium 8.3 mg/dL (8.4-10.2); Carbon Dioxide 27 mmol/L (22-29); Chloride 99 mmol/L (96-108); Creatinine Clr Calc Pharmacy 131.4; Estimated Glomerular Filt Rate > 60; Glucose Random 218 mg/dL (60-115); Potassium 4.6 mmol/L (3.3-5.1); Sodium 133 mmol/L (135-145)
[2022-03-18 07:31] LABS: Glucose, Whole Blood 209 mg/dL (60-115)
--- NOTE | 2022-03-18 08:15 | P.PNGS_ITS ---
Subjective Subjective Date of Service: 03/18/22 <Winter Mondragon PA-C - Last Filed: 03/18/22 08:21> 03/18/22 <Yoni Valverde MD - Last Filed: 03/18/22 09:06> Interval history: Pain is much improved. Has minimal pain except for with dressing changes. Tolerating solid diet. No nausea/vomiting or diarrhea with metformin increase. <Winter Mondragon PA-C - Last Filed: 03/18/22 08:21> Physical Exam Vital Signs: Vital Signs: Last Vital Signs Temp 97.9 F 03/18/22 07:15 Pulse 72 03/18/22 07:15 Resp 18 03/18/22 07:15 BP 159/77 H 03/18/22 07:15 Pulse Ox 95 03/18/22 07:15 O2 Del Method 03/18/22 07:15 O2 Flow Rate 2 03/11/22 13:25 BMI result Body Mass Index 36.1 <Winter Mondragon PA-C - Last Filed: 03/18/22 08:21> Const: General: comfortable, no acute distress and alert <Winter Mondragon PA-C - Last Filed: 03/18/22 08:21> Orientation/consciousness: patient oriented x3 <Winter Mondragon PA-C - Last Filed: 03/18/22 08:21> Resp: Effort & Inspection: normal respiratory effort <Winter Mondragon PA-C - Last Filed: 03/18/22 08:21> Cardio: Rate: regular rate <Winter Mondragon PA-C - Last Filed: 03/18/22 08:21> GI: Inspection: No distended <Winter Mondragon PA-C - Last Filed: 03/18/22 08:21> Palpation (GI): Soft to palpation <Winter Mondragon PA-C - Last Filed: 03/18/22 08:21> Skin: Other: perirectal abscess site- dressing changed this morning- induration improved, no further necrosis or drainage noted <Winter Mondragon PA-C - Last Filed: 03/18/22 08:21> Neuro: General: patient oriented x3 <Winter Mondragon PA-C - Last Filed: 03/18/22 08:21> Extrem: General: Yes no clubbing, cyanosis or edema <Winter Mondragon PA-C - Last Filed: 03/18/22 08:21> Objective Data Active Medications Acetaminophen (Acetaminophen 325 Mg Tablet) 650 mg PO Q6H PRN PRN Reason: Pain, Mild (Pain Scale 1-3) Last Admin: 03/18/22 05:42 Dose: 650 mg Documented By: YANG Amlodipine Besylate (Amlodipine Besylate 5 Mg Tablet) 5 mg PO DAILY [facility]; Protocol Last Admin: 03/17/22 08:22 Dose: 5 mg Documented By: KEVON Dextrose (Dextrose 50 % 25 Gm/50 Ml Syringe) 25 gm IVPUSH Q15M PRN; Protocol PRN Reason: per Hypoglycemia Standing Ord. Docusate Sodium (Docusate Sodium 100 Mg Capsule) 100 mg PO BID PRN PRN Reason: constipation Last Admin: 03/15/22 09:25 Dose: 100 mg Documented By: CHANDLER Glucose (Glucose Gel 15 Gm Gel..Gram.) 15 gm PO Q15M PRN; Protocol PRN Reason: per Hypoglycemia Standing Ord. Piperacillin Sod/Tazobactam (Sod 3.375 gm/ Sodium Chloride) 50 mls @ 100 mls/hr IV Q6H [facility] Last Infusion: 03/18/22 06:37 Dose: 100 mls/hr Documented By: YANG Insulin Glargine (Insulin Glargine,Hum.Rec.Anlog 100 Unit/Ml 10 Ml Vial) 15 unit SUBCUT BEDTIME [facility] Last Admin: 03/17/22 20:34 Dose: 15 unit Documented By: LOGAN Insulin Human Lispro (Insulin Lispro 100 Unit/Ml 3 Ml Vial) 0 unit SUBCUT QIDACHS [facility]; Protocol Last Admin: 03/17/22 20:33 Dose: 6 unit Documented By: LOGAN Lisinopril (Lisinopril 10 Mg Tablet) 10 mg PO DAILY [facility]; Protocol Last Admin: 03/17/22 08:22 Dose: 10 mg Documented By: KEVON Metformin HCl (Metformin Hcl 1,000 Mg Tablet) 1,000 mg PO BIDWM [facility] Last Admin: 03/17/22 16:08 Dose: 1,000 mg Documented By: KEVON Ondansetron HCl (Ondansetron Hcl 4 Mg/2 Ml Vial) 4 mg IVPUSH Q6H PRN PRN Reason: Nausea Sodium Chloride (0.9 % Sodium Chloride Flush 3 Ml Syringe) [facility] Last Admin: 03/18/22 00:37 Dose: 3 ml Documented By: YANG <Winter Mondragon PA-C - Last Filed: 03/18/22 08:21> Labs CBC & Chem 7: : 03/18/22 06:40 03/18/22 06:40 <JAVI Yo Last Filed: 03/18/22 08:21> Labs: Laboratory Results - last 24 hr 03/17/22 03/17/22 03/17/22 10:43 17:07 20:03 MCV MCH MCHC RDW Plt Count MPV Absolute Nucleated RBC Nucleated RBC % (auto) Anion Gap Estim Creat Clear Calc Estimated GFR POC Glucose 236 H 232 H 203 H Random Glucose Calcium 03/18/22 03/18/22 03/18/22 06:40 06:40 07:18 MCV 90.5 MCH 30.5 MCHC 33.7 RDW 11.9 Plt Count 260 MPV 10.6 Absolute Nucleated RBC 0.000 Nucleated RBC % (auto) 0.0 Anion Gap 12 Estim Creat Clear Calc 131.4 Estimated GFR > 60 POC Glucose 209 H Random Glucose 218 H Calcium 8.3 L <Winter Mondragon PA-C - Last Filed: 03/18/22 08:21> Procedures Date of Service Date of Service: 03/18/22 <JAVI Yo Last Filed: 03/18/22 08:21> Progress Note: A&P Assessment and plan (1) Poorly controlled type 2 diabetes mellitus: Status: Acute <JAVI Yo Last Filed: 03/18/22 08:21> (2) Necrotizing subcutaneous infection: Status: Acute <JAVI Yo Last Filed: 03/18/22 08:21> Assessment and Plan: he feels better today much less pain has had no fever for several days wound examined - good granulation, pain, with induration inferiorly but this has improved, clean, no cellulitis no pus WBC down okay to DC home - silver alginate dressings daily, with good wound care patient unable to have a visiting nurse as per case planner needs good follow-up with primary care physician in view of diabetes as a new diagnosis seen and examined independently <Yoni Valverde MD - Last Filed: 03/18/22 09:06> Assessment and Plan: 51 year old male admitted with sepsis, perirectal abscess who is s/p I&D of perirectal abscess and debridement of necrotizing soft tissue infection. He reports overall improvement - wound induration is slowly improving. WBC now downtrending and 14 this am. Daily wound care with silver alginate and hot packs to area TID. He feels ready for discharge. Will d/c to home today. He is unable to have visiting nurses but feels comfortable with dressing change himself. Inst ructed to present to ED if worsening pain, increased drainage, fevers at home. He will follow up in the office in 1 week. He will be discharged on course of PO Augmentin. Hospitalists following for medical management, diabetes mellitus new diagnosis. Appreciate input. Will follow up for home meds. <Winter Mondragon PA-C - Last Filed: 03/18/22 08:21> Time Spent With Patient Time: Total time spent is greater than 50% in coordination of care (as documented) at patient's floor/unit and/or counseling patient: <Winter Mondragon PA-C - Last Filed: 03/18/22 08:21> Quality Stroke Does the patient have a stroke diagnosis?: No <Winter Mondragon PA-C - Last Filed: 03/18/22 08:21> VTE Prior VTE?: No <Winter Mondragon PA-C - Last Filed: 03/18/22 08:21> VTE Risk Level:: Surgical - low <Winter Mondragon PA-C - Last Filed: 03/18/22 08:21> VTE Device Contraindication: N/A - Device Ordered <Winter Mondragon PA-C - Last Filed: 03/18/22 08:21> VTE Drug Contraindication: Treatment Not Indicated <JAVI Yo Last Filed: 03/18/22 08:21>
--- NOTE | 2022-03-18 08:17 | P.PNIM_ITS ---
Subjective Subjective Date of Service: 03/18/22 Interval History: cc: gluteal swelling and pain interval history: feels better, no new issues Review of Systems no fever or chils Physical Exam Vital Signs: Vital Signs: Last Vital Signs Temp 97.9 F 03/18/22 07:15 Pulse 72 03/18/22 07:15 Resp 18 03/18/22 07:15 BP 159/77 H 03/18/22 07:15 Pulse Ox 95 03/18/22 07:15 O2 Del Method 03/18/22 07:15 O2 Flow Rate 2 03/11/22 13:25 BMI result Body Mass Index 36.1 Const: General: comfortable, no acute distress and alert Orientatio n/consciousness: patient oriented x3 Resp: Effort & Inspection: normal respiratory effort Skin: Other: perirectal abscess site- induration persists but improved, exudate of wound base, some granulation, no necrotic tissue or purulence noted Neuro: General: patient oriented x3 and moves all extremities Objective Data Active Medications Acetaminophen (Acetaminophen 325 Mg Tablet) 650 mg PO Q6H PRN PRN Reason: Pain, Mild (Pain Scale 1-3) Last Admin: 03/18/22 05:42 Dose: 650 mg Documented By: YANG Amlodipine Besylate (Amlodipine Besylate 5 Mg Tablet) 5 mg PO DAILY [facility]; Protocol Last Admin: 03/17/22 08:22 Dose: 5 mg Documented By: KEVON Dextrose (Dextrose 50 % 25 Gm/50 Ml Syringe) 25 gm IVPUSH Q15M PRN; Protocol PRN Reason: per Hypoglycemia Standing Ord. Docusate Sodium (Docusate Sodium 100 Mg Capsule) 100 mg PO BID PRN PRN Reason: constipation Last Admin: 03/15/22 09:25 Dose: 100 mg Documented By: CHANDLER Glucose (Glucose Gel 15 Gm Gel..Gram.) 15 gm PO Q15M PRN; Protocol PRN Reason: per Hypoglycemia Standing Ord. Piperacillin Sod/Tazobactam (Sod 3.375 gm/ Sodium Chloride) 50 mls @ 100 mls/hr IV Q6H [facility] Last Infusion: 03/18/22 06:37 Dose: 100 mls/hr Documented By: YANG Insulin Glargine (Insulin Glargine,Hum.Rec.Anlog 100 Unit/Ml 10 Ml Vial) 15 unit SUBCUT BEDTIME [facility] Last Admin: 03/17/22 20:34 Dose: 15 unit Documented By: LOGAN Insulin Human Lispro (Insulin Lispro 100 Unit/Ml 3 Ml Vial) 0 unit SUBCUT QIDACHS [facility]; Protocol Last Admin: 03/17/22 20:33 Dose: 6 unit Documented By: LOGAN Lisinopril (Lisinopril 10 Mg Tablet) 10 mg PO DAILY [facility]; Protocol Last Admin: 03/17/22 08:22 Dose: 10 mg Documented By: KEVON Metformin HCl (Metformin Hcl 1,000 Mg Tablet) 1,000 mg PO BIDWM [facility] Last Admin: 03/17/22 16:08 Dose: 1,000 mg Documented By: KEVON Ondansetron HCl (Ondansetron Hcl 4 Mg/2 Ml Vial) 4 mg IVPUSH Q6H PRN PRN Reason: Nausea Sodium Chloride (0.9 % Sodium Chloride Flush 3 Ml Syringe) 3 ml IVFLUSH QSHIFT [facility] Last Admin: 03/18/22 00:37 Dose: 3 ml Documented By: YANG Labs CBC & Chem 7: 03/18/22 06:40 03/18/22 06:40 Labs: Laboratory Results - last 24 hr 03/17/22 03/17/22 03/17/22 10:43 17:07 20:03 MCV MCH MCHC RDW Plt Count MPV Absolute Nucleated RBC Nucleated RBC % (auto) Anion Gap Estim Creat Clear Calc Estimated GFR POC Glucose 236 H 232 H 203 H Random Glucose Calcium 03/18/22 03/18/22 03/18/22 06:40 06:40 07:18 MCV 90.5 MCH 30.5 MCHC 33.7 RDW 11.9 Plt Count 260 MPV 10.6 Absolute Nucleated RBC 0.000 Nucleated RBC % (auto) 0.0 Anion Gap 12 Estim Creat Clear Calc 131.4 Estimated GFR > 60 POC Glucose 209 H Random Glucose 218 H Calcium 8.3 L Assessment and Plan (1) Diabetes: Status: Acute Plan Patient without any significant medical history admitted to surgery for gluteal abscess with consult placed for management of new onset type 2 diabetes. new onset type 2 diabetes-uncontrolled with hyperglycemia related to obesity hemoglobin A1c 11.2% at discharge continue Lantus 15, metformin 1000 bid and Sliding scale with humalog started on metformin 500mg bid, increase to 1000 bid weight loss, exercise and prudent diet encouraged insulin teaching HTN--discharge with Norvasc 5 mg daily, Lisinopril 10 daily has a PCP appointent coming 04/03 Gluteal abscess--management by surgery Quality Stroke Does the patient have a stroke diagnosis?: No VTE Prior VTE?: No VTE Risk Level:: Surgical - low VTE Device Contraindication: N/A - Device Ordered VTE Drug Contraindication: Treatment Not Indicated
[2022-03-18] MEDS: Insulin Lispro 100 UNIT/ML 3 ML VIAL SUBCUT (08:28)
[2022-03-18] MEDS: metFORMIN HCl 1,000 MG TABLET 1000 MG PO (08:29)
[2022-03-18] MEDS: amLODIPine Besylate 5 MG TABLET PO (08:29)
[2022-03-18] MEDS: lisinopriL 10 MG TABLET PO (08:29)
--- NOTE | 2022-03-18 10:03 | MHC.CM.PN ---
Patient has been medically cleared for dc to home today, self care.
--- NOTE | 2022-03-19 13:01 | P.DS_ITS ---
DS: Providers Provider Date of Service: 03/18/22 Date of admission: 03/11/22 08:32 Date of discharge: 03/18/22 Primary care physician: None Physician Attending physician on admission: Yoni Valverde Consults: 03/11/22 09:17 Consult to Hospitalist Routine Consulting Provider: Hospitalist Reason For Exam: glucose >700s, undiagnosed diabetic Attending physician on discharge: Yoni Valverde DS: Diagnosis Discharge Diagnosis (1) Poorly controlled type 2 diabetes mellitus: Status: Acute (2) Necrotizing subcutaneous infection: Status: Acute DS: Summary Hospital Course Hospital Course: BRIEF HPI: River Luque is a 51 year old healthy male who presented to the ED with complaints of buttocks pain. This started 4-5 days ago and he first noticed when it was painful to sit. He thought he had hemorrhoids and therefore had been putting desitin cream on the area. He noted a red, creamy discharge from the area. He had low grade fevers at home and had been taking ibuprofen. He came in due to the persistent pain and his work told him he needed to be evaluated. He denies previous similar episodes. He denies chills, nausea, vomiting, diarrhea or change in bowel habits. In the ED, he was found to be tachycardic with a leukocytosis of 24.6 and a large fluctuant area of the glu teal cleft. Surgery was consulted for I&D. He denies any known medical problems including diabetes but he has not seen a medical provider in years. HOSPITAL COURSE: He was admitted to the surgical service for further treatment of the perirectal abscess and sepsis. He received IVF boluses in the ED for fluid resuscitation. CT scan of the abd/pelvis showed perianal and perirectal soft tissue wall thickening extending in the para midline gluteal soft tissues without gas, air fluid level or ulceration seen. He had significant fluctuance and induration of the gluteal cleft on the right and it was recommended to proceed with I&D of the abscess in the operating room. He was been started on IV zosyn, analgesics PRN and kept NPO. He did have an glucose of 693 and was found to have an Hg A1c of 11.2. Hospitalist consult was obtained for management of his new diabetes mellitus. On 03/11/22, exam under anesthesia, excisional debridement the right and perirectal areas, I and D of abscess was performed by Dr. Valverde without complication. Intraoperative findings showed a perirectal abscess on the right with?horseshoe extension to the left, with necrotizing infection of the fat. He was started on wet to dry dressings. He had slow improvement of the surrounding induration however the area remained without further necrosis, purulence and no further debridement or drainage was needed. Warm compresses were introduced. His dressing was changed to silver alginate to the wound base followed by fluffs and abd dressing. His WBC count slowly improved. He remained inpatient for IV abx and wound care and completed a 7 day course of IV zosyn. He was discharged on 03/18/22 in stable condition. He was discharged to home on PO Augmentin. He will be doing the dressing changes daily at home. He is to follow up with Dr. Valverde in office in 1 week. He found a PCP during his stay and will follow up with them regarding his diabetes mellitus and hypertension upon discharge. DIABETES MELLITUS: He was started on Lantus 10 units nightly at bedtime and sliding-scale Humalog with meals. Diabetes mellitus education was performed by the hospitalist service and nutrition consult also placed. His Lantus was eventually increased to 15U at bedtime. Metformin was added and gradually increased to 1000mg BID which he was tolerating. He was discharged to home on Lantus 15U subq nightly, humalog subq sliding scale with meals, Metformin 1000mg PO BID. HYPERTENSION: He was found to be persistently hypertensive following fluid resuscitation. Norvasc 5mg PO daily was added. His BP remains uncontrolled and he was started on Zestril 10mg PO daily with better control. Status at Discharge Functional status at discharge: independent ambulation Overall status at discharge: patient is progressing back to baseline Time Spent with Patient Time attestation: Total time spent providing and/or coordinating discharge services: Discharge coordination time: Greater than 30 minutes Quality: Safe Use of Opioids Does Pt have an Active Cancer Diagnosis on the Problem List?: No Quality: Stroke Does the patient have a stroke diagnosis?: No Physical Exam Vital Signs: Vital Signs: Last Vital Signs Temp 97.9 F 03/18/22 07:15 Pulse 72 03/18/22 07:15 Resp 18 03/18/22 07:15 BP 159/77 H 03/18/22 07:15 Pulse Ox 95 03/18/22 07:15 O2 Del Method 03/18/22 07:15 O2 Flow Rate 2 03/11/22 13:25 BMI result Body Mass Index 36.1 Const: General: comfortable, no acute distress and alert Orientation/consciousness: patient oriented x3 Resp: Effort & Inspection: normal respiratory effort Cardio: Rate: regular rate Skin: Other: perirectal I&D site- some fibrinous exudate, some induration persists, no purulence or necrosis noted General skin exam: no rashes or lesions noted Neuro: General: patient oriented x3 and moves all extremities Extrem: General: Yes no clubbing, cyanosis or edema DS: Data Data Completed and Pending Completed studies during hospitalization [Text1]: 03/11/22 12:32 Surgical [PTH] Routine Soft tissue, perirectal , excision: Soft tissue gangrenous necrosis and abscess formation. Discharge Plan Discharge Anticipated Discharge Date/Time: 03/18/22 12:10 Patient Disposition: Home, Self-Care Discharge Diagnosis: abscess with necrotizing infections of the buttock, diabetes mellitus Referrals: Yoni Valverde MD [Physician] - 1 Week Physician,None [Primary Care Provider] - 1 Week Discharge Medications: New (DME) FreeStyle Lite Strips Strip Qty: 100 0RF Rx Instructions: Test four times a day or as directed. (DME) blood-glucose meter [FreeStyle Lite Meter] Kit Qty: 1 0RF Rx Instructions: As Directed alcohol swabs Pads, Medicated 1 pad TOPICAL QIDACHS Qty: 100 0RF Rx Instructions: Use four times a day or as directed. (DME) pen needle, diabetic 32 gauge x 1/4 needle Qty: 100 0RF Rx Instructions: Use four times a day or as directed. (DME) lancets [FreeStyle Lancets] 28 gauge misc Qty: 100 0RF Rx Instructions: Test four times a day or as directed. insulin glargine [Basaglar KwikPen U-100 Insulin] 100 unit/mL (3 mL) insulin pen 15 unit subcut QPM Qty: 15 0RF oxycodone-acetaminophen [Percocet] 5-325 mg tablet 1 tab PO Q4-6H PRN (Reason: pain) Qty: 25 0RF Rx Instructions: Partial Fill upon patient request. amlodipine [Norvasc] 5 mg tablet 5 mg PO DAILY Qty: 30 1RF lisinopril [Zestril] 10 mg tablet 10 mg PO DAILY Qty: 30 1RF amoxicillin-pot clavulanate 875-125 mg tablet 1 tab PO BID Qty: 10 0RF metformin 1,000 mg tablet 1,000 mg PO BID Qty: 60 1RF insulin lispro [Humalog KwikPen Insulin] 100 unit/mL insulin pen 1 sliding scale dose subcut QIDACHS Qty: 15 1RF Rx Instructions: Blood Sugar: <150 - 0 units 151-200 - 4 units 201-250 - 6 units 251-300 - 8 units 301-350 - 10 units >350 - 12 units Continued multivitamin Tablet 1 tab PO DAILY omega-3 fatty acids Capsule 1,000 mg PO TID Held Tylenol 325 mg 1 tab PO DAILY PRN (Reason: Pain) Hold Instructions: Resume on 04/30/22. hold while taking percocet Discharge Orders: Discharge Order (Routine); Ordered 03/18/22 Ordered By: Winter Mondragon Diet: Diabetic diet Activity on Discharge: As tolerated Stand Alone Forms: Patient Portal Discharge page Activity Restrictions/Additional Instructions: Change dressings daily Warm compresses or heating pads to the right buttock area 3 to 4 times a day Use silver alginate dressing on the open wound once a day Change dressings if contaminated with stool Keep area clean and dry - okay to get wet with clean water Call office for follow-up for wound check [phone] May need to go to the emergency room if with high fever, worsening pain and discharge from the debridement site Care Plan Goals: Control diabetes Wound care for debridement site Health Concerns: Blood sugar control Plan of Treatment: New onset type 2 diabetes: -A1c in hospital 11.2%- goal <7.0% -Work on improving diet to lower sugar/carbohydrate intake -Check your sugar fasting every morning (goal 90-130) and before meals -Use insulin as prescribed. 10 units lantus (longacting) nightly and Humalog (fast acting) only with meals -Monitor for low blood sugars <70. Drink small amount of juice or eat a small amount of something sweet to eelvate sugar -Follow up with PCP soon, get A1c checked every 3 months. Ask for referral to diabetes education. -Get eyes exam annually -Follow up with your PCP as scheduled on 04/03/22 Assessment: Doing well Discharge Date/Time: 03/18/22 12:08
== END 2022-03-18 12:08 | disposition home or self-care (01) | DRG 854 ==
LOC: HO.ED 09:00 → HO.EDOVER 09:51 → HO.IMC 13:19
PROVIDERS: Internal Medicine; Surgery; Admitting Provider Physician Assistant Surgical; Emergency Provider Emergency Medicine Emergency Medical Services; Visit Provider Physician Assistant Surgical
PROC: (CPT 46040; principal; 2022-03-11 11:30)
DX: A41.9 Sepsis, unspecified organism (principal); E11.52 Type 2 diabetes mellitus with diabetic peripheral angiopathy with gangrene; L02.31 Cutaneous abscess of buttock; E87.1 Hypo-osmolality and hyponatremia; E11.65 Type 2 diabetes mellitus with hyperglycemia; E66.9 Obesity, unspecified; Z68.36 Body mass index [BMI] 36.0-36.9, adult; B95.1 Streptococcus, group B, as the cause of diseases classified elsewhere; I10 Essential (primary) hypertension; Z20.822 Contact with and (suspected) exposure to COVID-19; Z79.4 Long term (current) use of insulin; Z79.84 Long term (current) use of oral hypoglycemic drugs; Z79.899 Other long term (current) drug therapy
CPT/HCPCS: 36415; 74176; 80048; 82009; 82803; 82947; 83036; 83605; 85007; 85025; 85027; 87040; 87070; 87147; 87205; 87635; 88304; 99284; J0690; J1100; J1170; J2250; J2370; J2405; J2543; J2795; J3010

== ENCOUNTER 2022-04-03 10:46 | Outpatient (REF) | payer OTHER, SELFPAY ==
[2022-04-03 14:38] LABS: Hematocrit 32.7 % (42.0-52.0); Mean Corpuscular HGB Conc 33.6 g/dl (31.0-36.0); Mean Corpuscular Volume 89.1 fL (80.0-98.0); Platelet Count 274 X10*3/uL (160-400); Red Blood Count 3.67 X10*6/uL (4.60-5.80); Red Cell Distribution Width 12.4 % (11.0-16.0)
[2022-04-03 14:43] LABS: Estimated Average Glucose 237 mg/dL; Hemoglobin A1C 242.1211 umol/L; Hemoglobin A1c % 9.9 %
[2022-04-03 15:21] LABS: Alanine Aminotransferase 11 U/L (0-40); Albumin Level 3.9 g/dL (3.5-5.0); Alkaline Phosphatase 114 U/L (39-117); Anion Gap 12 (12-20); Aspartate Amino Transferase 12 U/L (5-37); Bilirubin Total 0.8 mg/dL (0.0-1.0); Blood Urea Nitrogen 22 mg/dL (9-16); Calcium 9.5 mg/dL (8.4-10.2); Carbon Dioxide 24 mmol/L (22-29); Chloride 102 mmol/L (96-108); Cholesterol 219 mg/dL; Estimated Glomerular Filt Rate > 60; Glucose Fasting 192 mg/dL (60-99); HDL Cholesterol 37 mg/dL; LDL Cholesterol Calculated 123 mg/dl; Potassium 5.5 mmol/L (3.3-5.1); Sodium 132 mmol/L (135-145); Total Protein 7.7 g/dL (6.5-8.0); Triglycerides 298 mg/dL
[2022-04-03 17:31] LABS: TSH reflex Free T4 2.14 uIU/mL (0.32-4.0)
[2022-04-09 12:22] LABS: Vitamin D 25-OH, D2 <4 ng/mL; Vitamin D 25-OH, D3 25 ng/mL; Vitamin D 25-OH, Total 25 ng/mL (30-100)
== END 2022-04-03 10:47 | disposition home or self-care (01) ==
LOC: HO.WFDLDS 10:46
PROVIDERS: Visit Provider Hospitalist
DX: Z00.00 Encounter for general adult medical examination without abnormal findings (principal); E11.65 Type 2 diabetes mellitus with hyperglycemia; K61.1 Rectal abscess
CPT/HCPCS: 36415; 80053; 80061; 82306; 83036; 84443; 85027

== ENCOUNTER 2022-04-10 09:31 | Outpatient (REF) | payer OTHER, SELFPAY ==
[2022-04-10 11:24] LABS: Anion Gap 12 (12-20); Blood Urea Nitrogen 26 mg/dL (9-16); Calcium 9.5 mg/dL (8.4-10.2); Carbon Dioxide 22 mmol/L (22-29); Chloride 106 mmol/L (96-108); Estimated Glomerular Filt Rate > 60; Glucose Fasting 129 mg/dL (60-99); Potassium 5.5 mmol/L (3.3-5.1); Sodium 134 mmol/L (135-145)
== END 2022-04-10 09:32 | disposition home or self-care (01) ==
LOC: HO.10HDL 09:31
PROVIDERS: Visit Provider Hospitalist
DX: E87.5 Hyperkalemia (principal)
CPT/HCPCS: 36415; 80048

== ENCOUNTER 2022-04-22 14:10 | Outpatient (RCR) | payer OTHER, SELFPAY | END 2022-06-03 16:00 | disposition home or self-care (01) | LOC: HO.WCC 14:10 | PROVIDERS: PCP Hospitalist; Visit Provider Physician Assistant | DX: E11.622 Type 2 diabetes mellitus with other skin ulcer (principal); L98.412 Non-pressure chronic ulcer of buttock with fat layer exposed; E11.42 Type 2 diabetes mellitus with diabetic polyneuropathy; I10 Essential (primary) hypertension; F10.90 Alcohol use, unspecified, uncomplicated; F12.90 Cannabis use, unspecified, uncomplicated; Z79.84 Long term (current) use of oral hypoglycemic drugs; Z79.4 Long term (current) use of insulin; Z87.891 Personal history of nicotine dependence | CPT/HCPCS: 11042; 17250; 99212 ==

== ENCOUNTER → 2022-05-08 08:15 | Outpatient (BNVA) | payer OTHER, SELFPAY | PROVIDERS: PCP Hospitalist; Visit Provider Surgery | DX: Z13.89 Encounter for screening for other disorder (principal) ==

== ENCOUNTER → 2022-06-09 09:07 | Outpatient (BNVA) | payer OTHER, SELFPAY | PROVIDERS: PCP Hospitalist; Visit Provider Surgery | DX: Z13.89 Encounter for screening for other disorder (principal) ==

== ENCOUNTER 2022-07-01 08:17 | Outpatient (REF) | payer OTHER, SELFPAY ==
[2022-07-01 11:05] LABS: Estimated Average Glucose 160 mg/dL; Hemoglobin A1c % 7.2 %
[2022-07-01 11:13] LABS: Iron 49 mcg/dL (45-160); Percent Iron Saturation 18 % (15-50); Total Iron Binding Capacity 280 mcg/dL (228-428); Unsaturated Iron Binding 231 ug/dL
[2022-07-01 11:44] LABS: Folate 16.5 ng/mL (> or = 4.0); Vitamin B12 352 pg/mL (200-900)
== END 2022-07-01 08:18 | disposition home or self-care (01) ==
LOC: HO.10HDL 08:17
PROVIDERS: Visit Provider Nurse Practitioner Family
DX: D64.9 Anemia, unspecified (principal); E11.9 Type 2 diabetes mellitus without complications
CPT/HCPCS: 36415; 82607; 82746; 83036; 83540

== ENCOUNTER 2022-07-29 09:40 | Outpatient (REF) | payer OTHER, SELFPAY ==
[2022-07-29 12:00] LABS: Hematocrit 34.9 % (42.0-52.0); Hemoglobin 11.8 g/dl (14.0-18.0); Mean Corpuscular HGB Conc 33.8 g/dl (31.0-36.0); Mean Corpuscular Hemoglobin 29.9 pg (27.0-33.0); Mean Corpuscular Volume 88.6 fL (80.0-98.0); Mean Platelet Volume 11.8 fL (9.4-12.4); Platelet Count 214 X10*3/uL (160-400); Red Blood Count 3.94 X10*6/uL (4.60-5.80); Red Cell Distribution Width 12.5 % (11.0-16.0); White Blood Count 11.5 X10*3/uL (4.8-10.8)
[2022-07-29 12:07] LABS: Alanine Aminotransferase 14 U/L (0-40); Albumin Level 3.8 g/dL (3.5-5.0); Alkaline Phosphatase 106 U/L (39-117); Anion Gap 13 (12-20); Aspartate Amino Transferase 16 U/L (5-37); Bilirubin Total 0.5 mg/dL (0.0-1.0); Blood Urea Nitrogen 28 mg/dL (9-16); Calcium 9.1 mg/dL (8.4-10.2); Carbon Dioxide 25 mmol/L (22-29); Chloride 101 mmol/L (96-108); Estimated Glomerular Filt Rate > 60; Glucose Fasting 172 mg/dL (60-99); Potassium 5.4 mmol/L (3.3-5.1); Sodium 134 mmol/L (135-145); Total Protein 7.2 g/dL (6.5-8.0)
== END 2022-07-29 09:41 | disposition home or self-care (01) ==
LOC: HO.WFDLDS 09:40
PROVIDERS: Visit Provider Hospitalist
DX: D64.9 Anemia, unspecified (principal); K61.1 Rectal abscess; E87.5 Hyperkalemia; I10 Essential (primary) hypertension
CPT/HCPCS: 36415; 80053; 85027

== ENCOUNTER 2022-07-30 08:37 | Outpatient (REF) | payer OTHER, SELFPAY ==
[2022-07-30 11:28] LABS: Iron 54 mcg/dL (45-160); Percent Iron Saturation 20 % (15-50); Total Iron Binding Capacity 264 mcg/dL (228-428); Unsaturated Iron Binding 210 ug/dL
[2022-07-30 11:59] LABS: Folate 16.3 ng/mL (> or = 4.0); Vitamin B12 467 pg/mL (200-900)
== END 2022-07-30 08:38 | disposition home or self-care (01) ==
LOC: HO.10HDL 08:37
PROVIDERS: Visit Provider Hospitalist
DX: D64.9 Anemia, unspecified (principal)
CPT/HCPCS: 36415; 82607; 82746; 83540

== ENCOUNTER 2022-11-24 10:12 | Outpatient (AMB) | payer OTHER, SELFPAY ==
[2022-11-24 10:22] VITALS: BP 144/90; PULSE 88; RESP 12; TEMP 36.6; O2SAT 99; BMI 38.8
--- NOTE | 2022-11-24 10:22 | MHC.PC.OV ---
Vital Signs 11/24/22 10:22 Height 5 ft 8 in Weight 255 lb 4 oz BMI 38.8 BP 144/90 H Blood Pressure Location Rt brachial Position Sitting Respiration 12 Pulse 88 Pulse Source Pulse Oximeter Temp 97.8 F Temp Source Temporal Artery Scan Pulse Oximetry (%) 99 Oxygen Delivery Method Room Air Intake Visit Reasons: Follow up blood sugar,weight Intake Note: Patient states he stopped taking lisinopril due to it causing a dry cough. Patient states that his left ankle has been swelling for 2 weeks but has gone down. Patient states that there is bruising around ankles as well. Patient states thyat he has been CoQ10 in 50 MG over the counter due to him not receiving the 30 MG due to stock. Patient would like something to replace lisinopril. Manager Analysis Required: No Accompanied by: Self / Same As Patient Allergies No Known Allergies Allergy (Verified 11/24/22 10:44) Medication List - Last Reconciled 11/24/22 by Quique Tatum CNP alcohol swabs 1 pad topical QIDACHS amlodipine (Norvasc) 5 mg PO DAILY atorvastatin 20 mg PO BEDTIME blood sugar diagnostic (FreeStyle Lite Strips) Test four times a day or as directed. blood-glucose meter (FreeStyle Lite Meter kit) As Directed insulin glargine (Basaglar KwikPen U-100 Insulin) 15 units (0.15 mL) subcut QPM insulin lispro (Humalog KwikPen (U-100) Insulin) 1 sliding scale dose subcut QIDACHS lancets (FreeStyle Lancets) TEST FOUR TIMES A DAY OR DIRECTED. metformin 1,000 mg PO BID multivitamin 1 tab PO DAILY omega-3 fatty acids 1,000 mg PO TID pen needle, diabetic (BD Toshia 2nd Gen Pen Needle) USE FOUR TIMES A DAY OR DIRECTED. zinc acetate 50 mg (2 x 25 mg (zinc)) PO BID 3 months Tobacco use date assessed: 05/29/22 Dental Screening Dental Screen Date: 11/24/22 Did you have a dental visit in the last 12 months?: No Did you have a dental problem in the last 6 months where you did not have access to dental care?: No Was dental information given to patient?: Patient has dentist HPI HPI Comments History of Present Illness Details 52-year-old male presents for diabetes and obesity follow-up. He notes he stopped taking lisinopril over 2 weeks due to dry cough. His cough has resolved. He states he has been taking coenzyme yjli-vyl-gdadxnq Q10 50 mg daily because 30 mg was out of stock at the pharmacy. He reports significant left ankle swelling for 2 weeks, swelling has improved. Both ankles were swollen initially. He notes he walks wile working for exercise. He admits to eating a healthy diet including low sodium. His H&H were slightly low in July, potassium was slightly elevated, normal iron profile, vitamin B12, and folate levels. His PCP ordered CBC and CMP. [facility] Medical History (Updated 11/24/22 @ 11:33 by Quique Tatum CNP) Hypertension Necrotizing subcutaneous infection Postoperative visit Type 2 diabetes Surgical History Status post incision and drainage [place] teeth removed Family History Mother Diabetes Maternal Uncle Diabetes Social History Household Members: Significant Other and Children Housing: House Do you presently have visiting nurse or other home services: No Alcohol intake: current Alcohol intake frequency: a few times a month Patient Tobacco Use Status: Never used Tobacco e-Cigarette/Vaping Use: Never Used Substance Use Type: Marijuana service: No Current occupational status: employed Current occupation: [employer] Cognitive needs: No Hearing needs: No Vision needs: Yes Questionnaire Thrive Questionnaire Date Thrive assessed: 05/29/22 UTE-7 AMB Questionnaire UTE-7 Date UTE - 7 assessed: 07/03/22 Source: Developed by Drs. Higinio Rodriguez, Olivia Rayo, Edilberto Freeman and colleagues, with an educational smitha from [employer]. Review of Systems Const Details: Const Denies chills, Denies fatigue, Denies fever(s), Denies headache(s) and Denies weakness ENT Denies dizziness and Denies headache(s) Card Denies chest pain, Denies lightheadedness, Denies dyspnea and Denies other (Palpitations) Resp Denies cough, Denies dyspnea, Denies wheezing and Denies other ( shortness of breath) GI Denies abdominal pain, Denies melena, Denies hematochezia, Denies change in bowel habits, Denies dyspepsia and Denies nausea Denies hematuria and Denies dysuria Musc Reports left ankle swelling, Denies abnormal gait, Denies myalgias, Denies arthralgias, Denies numbness and Denies tingling Skin/Breast Denies rash, Denies unusual bruising and Denies wounds Neuro Denies abnormal gait, Denies dizziness, Denies headache(s), Denies memory loss, Denies numbness, Denies Sensory deficit (Neuro), Denies tingling and Denies weakness Psych Denies anxiety and Denies depression Endo Denies fatigue Aller/Immun Denies wheezing Physical exam (Primary Care) Vital Signs: Last Vital Signs Temp 97.8 F 11/24/22 10:22 Pulse 88 11/24/22 10:22 Resp 12 11/24/22 10:22 BP 144/90 H 11/24/22 10:22 Pulse Ox 99 11/24/22 10:22 Oxygen Delivery Method Room Air 11/24/22 10:22 BMI result Body Mass Index 38.8 Tobacco/Smoking Status: Tobacco use Status Tobacco use date assessed 05/29/22 11/24/22 10:36 Patient Tobacco Use Status Never used Tobacco 11/24/22 10:36 Tobacco use type 05/29/22 09:45 e-Cigarette/Vaping Use Never Used 11/24/22 10:36 Thrive Assessment: Date of Thrive Assessment Date Thrive assessed 05/29/22 11/24/22 10:36 Const Other: General: no acute distress and well developed Nutritional Appearance: well nourished Orientation/consciousness: patient oriented x3 HENMT Head: Yes normocephalic and Yes atraumatic Eyes General: appearance normal, both eyes and all related structures Pupils: Equal, round and reactive pupils present EOM: EOMs intact bilaterally Resp Effort & Inspection: normal respiratory effort Auscultation: clear to auscultation bilaterally Cardio Rate: regular rate Rhythm: regular rhythm Heart sounds: S1 normal heart sound present, S2 normal heart sound present, no gallops, no murmurs and no rubs GI Palpation (GI): No Abdominal aortic bruit present, Soft to palpation, nontender, No hepatosplenomegaly present and No Rebound tenderness present Auscultation: normal bowel sounds General: Yes no CVA tenderness Back/Spine/Pelvis Back: no CVA tenderness Cervical Spine: cervical ROM normal and No Cervical spine tenderness Thoracic/Lumbar Spine: thoraco-lumbar ROM normal, No pain with thoraco-lumbar ROM, No thoracic spinal tenderness and No lumbar spinal tenderness Extrem General: Yes normal to inspection, No calf tenderness Significant non pitting edema of bilateral ankle and feet, left greater than right, DP/PT pulses not palpable, no overt injury or trauma Skin General: warm and dry. Normal skin color. Normal skin turgor Lesions: no lesions Rashes: no rashes Trauma: no lacerations or abrasions Wounds: no wounds Nails: normal Neuro General: patient oriented x3, gait normal and no focal neuro deficit Cranial nerves: Yes Equal, round and reactive pupils present Cognition (Neuro): normal cognition Gait exam (Neuro): Normal gait present Sensory Exam: No Sensory deficit (Neuro) Psych Affect: normal affect Results AMB Hemoglobin A1c AMB Hemoglobin A1c 7.0 % Last Edit by Saranya Miller MA on 11/24/22 10:51 Assessment and Plan Assessment & Plan (1) Type 2 diabetes: Code(s): E11.9 - Type 2 diabetes mellitus without complications Plan: His A1c is 7.0% today, slightly above goal of less than 7.0%; previous A1c 7.2% Continue to take metformin as prescribed ADA diet and routine exercise encouraged Will check microalbumin/creatinine ratio Follow-up in 1 month for hypertension Return sooner with symptoms or concerns Verbalized understanding and agreed with treatment plan. (2) Hypertension: Code(s): I10 - Essential (primary) hypertension Plan: Blood pressure is 144/90, above goal of less than 130/80 Amlodipine discontinued due to adverse reaction of lower extremity edema Lisinopril discontinued due to history of dry cough Losartan ordered, take as prescribed Low-sodium diet encouraged Follow-up with the nurse for blood pressure check in 1 week Return in 1 month or sooner with symptoms or concerns Verbalized understanding and agreed with treatment plan. (3) Mild anemia: Code(s): D64.9 - Anemia, unspecified Plan: H&H were slightly low 3 months ago Iron profile, Vitamin B12, and folate were normal CBC ordered to monitor trend (4) High potassium: Code(s): E87.5 - Hyperkalemia Plan: His potassium was slightly elevated 3 months ago Will check current potassium level CMP ordered (5) BMI 38.0-38.9,adult: Code(s): Z68.38 - Body mass index [BMI] 38.0-38.9, adult Plan: He gained 4 lb since his last visit BMI today is 38.8 Healthy diet and routine exercise encouraged May continue to take anzy-ibc-yflkumc coenzyme Q10 50 mg daily Will referred to with management if requested Follow-up as needed Verbalized understanding and agreed with plan. (6) Elevated cholesterol with high triglycerides: Code(s): E78.2 - Mixed hyperlipidemia Plan: High triglycerides and cholesterol level He was recent started on atorvastatin. Take as prescribed Will check lipid level. LP ordered (7) Bilateral swelling of feet and ankles: Code(s): M25.471 - Effusion, right ankle; M25.472 - Effusion, left ankle; M25.474 - Effusion, right foot; M25.475 - Effusion, left foot Plan: Significant non pitting edema of bilateral ankle and feet, left greater than right, DP/PT pulses not palpable, no overt injury or trauma Likely due to adverse reaction of amlodipine Amlodipine discontinued Losartan ordered. Take as prescribed Elevate bilateral lower extremities to reduce edema Return with concerns or worsening swelling Verbalized understanding and agreed with treatment plan. Orders: Orders Comprehensive Met. Panel Today D64.9 - Anemia, unspecified, E11.9 - Type 2 diabetes mellitus without complications, I10 - Essential (primary) hypertension Lipid Panel Today D64.9 - Anemia, unspecified, E11.9 - Type 2 diabetes mellitus without complications, I10 - Essential (primary) hypertension Microalbumin, Random (w Creat) Today E11.9 - Type 2 diabetes mellitus without complications Complete Blood Count no Diff Today D64.9 - Anemia, unspecified, E11.9 - Type 2 diabetes mellitus without complications, I10 - Essential (primary) hypertension AMB Hemoglobin A1c Today Z13.9 - Encounter for screening, unspecified Medications: New losartan 50 mg PO DAILY 30 tabs 3RF 30 days Discontinued amlodipine (Norvasc) Discontinued Reason: Doctor's Order 5 mg PO DAILY 90 tabs 3RF Coding Level of Care Code Est Pt Level 4 (63224) Diagnoses Type 2 diabetes E11.9 Hypertension I10 Mild anemia D64.9 High potassium E87.5 BMI 38.0-38.9,adult Z68.38 Elevated cholesterol with high triglycerides E78.2 Bilateral swelling of feet and ankles M25.471; M25.472; M25.474; M25.475 Time Spent (min) 35
== END 2022-11-24 11:15 | disposition home or self-care (01) ==
PROVIDERS: PCP Hospitalist; Visit Provider Nurse Practitioner Family
DX: E11.69 Type 2 diabetes mellitus with other specified complication (principal); I10 Essential (primary) hypertension; Z68.38 Body mass index [BMI] 38.0-38.9, adult; D64.9 Anemia, unspecified; E87.5 Hyperkalemia; E78.2 Mixed hyperlipidemia; M25.471 Effusion, right ankle; M25.472 Effusion, left ankle; M25.474 Effusion, right foot; M25.475 Effusion, left foot
CPT/HCPCS: 99214

== ENCOUNTER 2022-11-24 11:14 | Outpatient (REF) | payer OTHER, SELFPAY ==
[2022-11-24 14:30] LABS: Hematocrit 35.2 % (42.0-52.0); Hemoglobin 11.8 g/dl (14.0-18.0); Mean Corpuscular HGB Conc 33.5 g/dl (31.0-36.0); Mean Corpuscular Volume 89.6 fL (80.0-98.0); Mean Platelet Volume 11.9 fL (9.4-12.4); Platelet Count 228 X10*3/uL (160-400); Red Blood Count 3.93 X10*6/uL (4.60-5.80); Red Cell Distribution Width 12.2 % (11.0-16.0); White Blood Count 10.9 X10*3/uL (4.8-10.8)
[2022-11-24 15:25] LABS: Alanine Aminotransferase 20 U/L (0-40); Albumin Level 3.7 g/dL (3.5-5.0); Alkaline Phosphatase 121 U/L (39-117); Anion Gap 16 (12-20); Aspartate Amino Transferase 15 U/L (5-37); Bilirubin Total 0.4 mg/dL (0.0-1.0); Blood Urea Nitrogen 22 mg/dL (9-16); Calcium 9.2 mg/dL (8.4-10.2); Carbon Dioxide 19 mmol/L (22-29); Chloride 108 mmol/L (96-108); Cholesterol 115 mg/dL; Estimated Glomerular Filt Rate > 60; Glucose Random 164 mg/dL (60-115); HDL Cholesterol 35 mg/dL; LDL Cholesterol Calculated 26 mg/dl; Potassium 4.6 mmol/L (3.3-5.1); Sodium 138 mmol/L (135-145); Total Protein 7.5 g/dL (6.5-8.0); Triglycerides 274 mg/dL
[2022-11-24 16:49] LABS: Creatinine Urine 125.91 mg/dL
[2022-11-24 17:00] LABS: Microalbum/Creatinine Ratio Ur 1588.4 ug/mg cr; Microalbumin Urine > 2000.0 mg/L
== END 2022-11-24 11:15 | disposition home or self-care (01) ==
LOC: HO.WFDLDS 11:14
PROVIDERS: Visit Provider Nurse Practitioner Family
DX: D64.9 Anemia, unspecified (principal); E11.9 Type 2 diabetes mellitus without complications; I10 Essential (primary) hypertension
CPT/HCPCS: 36415; 80053; 80061; 82043; 85027

== ENCOUNTER 2023-02-05 09:24 | Outpatient (AMB) | payer OTHER, SELFPAY ==
[2023-02-05 09:42] VITALS: BP 154/70; PULSE 87; RESP 13; TEMP 36.6; O2SAT 99; BMI 39.4
--- NOTE | 2023-02-05 09:42 | A.OFFPC_ITS ---
Vital Signs 02/05/23 09:42 02/05/23 11:07 Height 5 ft 8 in Weight 259 lb BMI 39.4 BP 154/70 H 140/80 H Blood Pressure Location Lt brachial Rt brachial Position Sitting Sitting Respiration 13 Pulse 87 Pulse Source Pulse Oximeter Temp 97.8 F Temp Source Temporal Artery Scan Pulse Oximetry (%) 99 Oxygen Delivery Method Room Air Intake Visit Reasons: f/u DM/HTN Taco Maker Required: No Accompanied by: Self / Same As Patient Allergies No Known Allergies Allergy (Verified 02/05/23 10:33) Medication List - Last Reconciled 02/05/23 by Quique Tatum CNP alcohol swabs 1 pad topical QIDACHS atorvastatin 20 mg PO BEDTIME blood sugar diagnostic (FreeStyle Lite Strips) Test four times a day or as directed. blood-glucose meter (FreeStyle Lite Meter kit) As Directed insulin glargine (Basaglar KwikPen U-100 Insulin) 15 units (0.15 mL) subcut QPM insulin lispro (Humalog KwikPen (U-100) Insulin) 1 sliding scale dose subcut QIDACHS lancets (FreeStyle Lancets) TEST FOUR TIMES A DAY OR DIRECTED. losartan 50 mg PO DAILY 30 days metformin 1,000 mg PO BID multivitamin 1 tab PO DAILY omega-3 fatty acids 1,000 mg PO TID pen needle, diabetic (BD Toshia 2nd Gen Pen Needle) USE FOUR TIMES A DAY OR DIRECTED. zinc acetate 50 mg (2 x 25 mg (zinc)) PO BID 3 months Tobacco use date assessed: 02/05/23 Dental Screening Dental Screen Date: 02/05/23 Did you have a dental visit in the last 12 months?: No Did you have a dental problem in the last 6 months where you did not have access to dental care?: No Was dental information given to patient?: Yes HPI HPI Comments History of Present Illness Details 52-year-old male presents for diabetes a nd hypertension follow-up. His last office visit was in October. His blood pressure was elevated, 144/90. Amlodipine and lisinopril were discontinued due to adverse reactions. He was started on losartan and advised to follow-up in a month. His A1c was 7.0% He admits to making healthy dietary choices and walking daily for exercise. He offers no complaints and denies acute symptoms. He states that his eye exam is up-to-date. He has a follow up appointment in March,. [facility] Medical History Postoperative visit Necrotizing subcutaneous infection Hypertension Type 2 diabetes Surgical History Status post incision and drainage [place] teeth removed Family History Mother Diabetes Maternal Uncle Diabetes Social History Household Members: Significant Other and Children Housing: House Do you presently have visiting nurse or other home services: No Alcohol intake: current Alcohol intake frequency: a few times a month Patient Tobacco Use Status: Former Tobacco user Quit Date: 2009 e-Cigarette/Vaping Use: Never Used Substance Use Type: Marijuana service: No Current occupational status: employed Current occupation: [employer] Cognitive needs: No Hearing needs: No Vision needs: No Questionnaire Thrive Questionnaire Date Thrive assessed: 05/29/22 UTE-7 AMB Questionnaire UTE-7 Date UTE - 7 assessed: 07/03/22 Source: Developed by Drs. Higinio Rodriguez, Olivia Rayo, Edilberto Freeman and colleagues, with an educational smitha from [employer]. Review of Systems Const Details: Const Denies chills, Denies fatigue, Denies fever(s), Denies headache(s) and Denies weakness ENT Denies dizziness and Denies headache(s) Card Denies chest pain, Denies lightheadedness, Denies dyspnea and Denies other (Palpitations) Resp Denies cough, Denies dyspnea, Denies wheezing and Denies other ( shortness of breath) GI Denies abdominal pain, Denies melena, Denies hematochezia, Denies change in bowel habits, Denies dyspepsia and Denies nausea Denies hematuria and Denies dysuria Musc Denies abnormal gait, Denies myalgias, Denies arthralgias, Denies numbness and Denies tingling Skin/Breast Denies rash, Denies unusual bruising and Denies wounds Neuro Denies abnormal gait, Denies dizziness, Denies headache(s), Denies memory loss, Denies numbness, Denies Sensory deficit (Neuro), Denies tingling and Denies weakness Psych Denies anxiety, Denies depression, Denies memory loss Endo Denies cold intolerance, Denies fatigue, Denies heat intolerance, Denies polydipsia and Denies polyuria Aller/Immun Denies wheezing Physical exam (Primary Care) Vital Signs: Last Vital Signs Temp 97.8 F 02/05/23 09:42 Pulse 87 02/05/23 09:42 Resp 13 02/05/23 09:42 BP 154/70 H 02/05/23 09:42 Pulse Ox 99 02/05/23 09:42 Oxygen Delivery Method Room Air 02/05/23 09:42 BMI result Body Mass Index 39.4 Tobacco/Smoking Status: Tobacco use Status Tobacco use date assessed 02/05/23 02/05/23 09:49 Patient Tobacco Use Status Former Tobacco user 02/05/23 09:49 Tobacco use type 05/29/22 09:45 e-Cigarette/Vaping Use Never Used 02/05/23 09:46 Thrive Assessment: Date of Thrive Assessment Date Thrive assessed 05/29/22 02/05/23 09:46 Const Other: General: no acute distress and well developed Nutritional Appearance: well nourished Orientation/consciousness: patient oriented x3 HENMT Head: Yes normocephalic and Yes atraumatic Eyes General: appearance normal, both eyes and all related structures Pupils: Equal, round and reactive pupils present EOM: EOMs intact bilaterally Resp Effort & Inspection: normal respiratory effort Auscultation: clear to auscultation bilaterally Cardio Rate: regular rate Rhythm: regular rhythm Heart sounds: S1 normal heart sound present, S2 normal heart sound present, no gallops, no murmurs and no rubs GI Palpation (GI): No Abdominal aortic bruit present, Soft to palpation, nontender, No hepatosplenomegaly present and No Rebound tenderness present Auscultation: normal bowel sounds General: Yes no CVA tenderness Back/Spine/Pelvis Back: no CVA tenderness Cervical Spine: cervical ROM normal and No Cervical spine tenderness Thoracic/Lumbar Spine: thoraco-lumbar ROM normal, No pain with thoraco-lumbar ROM, No thoracic spinal tenderness and No lumbar spinal tenderness Extrem General: Yes normal to inspection, No edema and No calf tenderness Skin General: warm and dry. Normal skin color. Normal skin turgor Lesions: no lesions Rashes: no rashes Trauma: no lacerations or abrasions Wounds: no wounds Nails: normal Neuro General: patient oriented x3, gait normal and no focal neuro deficit Cranial nerves: Yes Equal, round and reactive pupils present Cognition (Neuro): normal cognition Gait exam (Neuro): Normal gait present Sensory Exam: No Sensory deficit (Neuro) Psych Appearance: grossly normal Affect: normal affect Attitude: cooperative Thought process: Normal thought process present Results AMB Hemoglobin A1c AMB Hemoglobin A1c 6.4 % Last Edit by Saranya Miller MA on 02/05/23 10:05 Results Reviewed Results Reviewed: Laboratory Last Values Hgb A1c (Clinic) 6.4 % (4.0-6.0) H 02/05/23 10:04 Assessment and Plan Assessment & Plan (1) Type 2 diabetes: Code(s): E11.9 - Type 2 diabetes mellitus without complications Qualifiers: Diabetes mellitus technician terminal and repeater insulin use: with technician terminal and repeater use Diabetes mellitus complication status: without complication Qualified Code(s): E11.9 - Type 2 diabetes mellitus without complications; Z79.4 - long term care phlebotomist (current) use of insulin Plan: A1c is 6.4% today, below goal of less than 7.0% Continue with current treatment regimen ADA diet and routine exercise encouraged Will recheck A1c in 3 months Encouraged to follow-up for an eye exam as planned Follow-up with symptoms or concerns Verbalized understanding and agreed with treatment plan. (2) Hypertension: Code(s): I10 - Essential (primary) hypertension Qualifiers: Hypertension type: primary hypertension Qualified Code(s): I10 - Essential (primary) hypertension Plan: Resting blood pressure is 140/80, above goal of less than 130/80 Will increase losartan to 50 mg twice Daily. Take as prescribed Low-sodium diet encouraged Follow-up in 2 months. Return sooner with symptoms or concerns Verbalized understanding and agreed with treatment plan. (3) Elevated cholesterol with high triglycerides: Code(s): E78.2 - Mixed hyperlipidemia Plan: Recent LDL level was normal, 26, triglycerides level is elevated, 274, and HDL is low, 35 Fenofibrate ordered. Take as prescribed Advised to limit foods high in saturated fat and avoid foods high trans fat Routine exercise encouraged Will check lipid level. Advised to fast for 10-12 hours and get blood work done before his next visit Follow-up in 2 months for complete physical exam and hypertension follow-up Verbalized understanding and agreed with treatment plan. (4) Obesity (BMI 30-39.9): Code(s): E66.9 - Obesity, unspecified Plan: He continues to struggle to lose weight despite making healthy lifestyle choices and walking daily for exercise He declines referral to dietitian/dwarf tree grower or weight management Healthy diet and routine exercise encouraged He may contact his provider if he changes mind on referral to dietitian/dwarf tree grower or with management Verbalized understanding and agreed with treatment plan. Orders: Orders AMB Hemoglobin A1c Today Z13.9 - Encounter for screening, unspecified Lipid Panel 2 Months E78.2 - Mixed hyperlipidemia Medications: New fenofibrate 54 mg PO DAILY 30 days 30 tabs 3RF Changed From losartan 50 mg PO DAILY 30 days 30 tabs 3RF To losartan 50 mg PO BID 30 days 60 tabs 3RF Coding Level of Care Code Est Pt Level 4 (59411) Diagnoses Type 2 diabetes mellitus without complication, with long-term current use of insulin E11.9; Z79.4 Diabetes mellitus fci insulin use: with technician terminal and repeater use Diabetes mellitus complication status: without complication Primary hypertension I10 Hypertension type: primary hypertension Elevated cholesterol with high triglycerides E78.2 Obesity (BMI 30-39.9) E66.9
[2023-02-05 11:07] VITALS: BP 140/80
== END 2023-02-05 10:58 | disposition home or self-care (01) ==
PROVIDERS: PCP Hospitalist; Visit Provider Nurse Practitioner Family
DX: E11.9 Type 2 diabetes mellitus without complications (principal); Z79.4 Long term (current) use of insulin; I10 Essential (primary) hypertension; E78.2 Mixed hyperlipidemia; E66.9 Obesity, unspecified
CPT/HCPCS: 83036; 99214

== ENCOUNTER 2023-04-08 08:40 | Outpatient (REF) | payer OTHER, SELFPAY ==
[2023-04-08 10:39] LABS: Cholesterol 151 mg/dL (<200); HDL Cholesterol 40 mg/dL (>40); LDL Cholesterol Calculated 80 mg/dL (<100); Triglycerides 157 mg/dL (<150)
== END 2023-04-08 08:41 | disposition home or self-care (01) ==
LOC: HO.10HDL 08:40
PROVIDERS: Visit Provider Nurse Practitioner Family
DX: E78.2 Mixed hyperlipidemia (principal)
CPT/HCPCS: 36415; 80061

== ENCOUNTER 2023-04-09 08:31 | Outpatient (AMB) | payer OTHER, SELFPAY ==
[2023-04-09 08:47] VITALS: BP 160/80; PULSE 97; RESP 13; TEMP 36.6; O2SAT 99; BMI 40.1
--- NOTE | 2023-04-09 08:47 | A.OFFPC_ITS ---
Vital Signs 04/09/23 08:47 Height 5 ft 8 in Weight 264 lb BMI 40.1 BP 160/80 H Blood Pressure Location Rt brachial Position Sitting Respiration 13 Pulse 97 Pulse Source Pulse Oximeter Temp 97.8 F Temp Source Temporal Artery Scan Pulse Oximetry (%) 99 Oxygen Delivery Method Room Air Intake Visit Reasons: f/u HTN Intake Note: Patient states that hes been experiencing shortness of breath when trying to go to sleep as well as slight congestion. Patient states hes been also experiencing swelling in ankles and feet more so on left foot.. Medical And Scientific Illustrator Required: No Accompanied by: Self / Same As Patient Allergies No Known Allergies Allergy (Verified 04/09/23 09:14) Medication List - Last Reconciled 04/09/23 by Quique Tatum CNP alcohol swabs 1 pad topical QIDACHS atorvastatin 20 mg PO BEDTIME blood sugar diagnostic (FreeStyle Lite Strips) Test four times a day or as directed. blood-glucose meter (FreeStyle Lite Meter kit) As Directed fenofibrate 54 mg PO DAILY 30 days insulin glargine (Basaglar KwikPen U-100 Insulin) 15 units (0.15 mL) subcut QPM insulin lispro (Humalog KwikPen (U-100) Insulin) 1 sliding scale dose subcut QIDACHS lancets (FreeStyle Lancets) TEST FOUR TIMES A DAY OR DIRECTED. losartan 50 mg PO BID 30 days metformin 1,000 mg PO BID multivitamin 1 tab PO DAILY omega-3 fatty acids 1,000 mg PO TID pen needle, diabetic (BD Toshia 2nd Gen Pen Needle) USE FOUR TIMES A DAY OR DIRECTED. zinc acetate 50 mg (2 x 25 mg (zinc)) PO BID 3 months Tobacco use date assessed: 02/05/23 Dental Screening Dental Screen Date: 04/09/23 Did you have a dental visit in the last 12 months?: No Did you have a dental problem in the last 6 months where you did not have access to dental care?: No Was dental information given to patient?: Patient has dentist HPI HPI Comments History of Present Illness Details 52-year-old male presents for hypertensi on and hyperlipidemia follow-up He admits to taking his medications as prescribed without adverse reactions He reports shortness with moderate exertion and associated wheezing while asleep for the past 1 week. He reports associated productive cough with yellow to clear phlegm and nasal congestion. He also reports swelling to his ankles and feet, worse on right ankle and foot for the past 2-3 months. He admits that his states he snores when he sleeps. He denies headache, sore throat, fever, chills, body aches, fatigue, or weakness [facility] Medical History Postoperative visit Necrotizing subcutaneous infection Hypertension Type 2 diabetes Surgical History Status post incision and drainage [place] teeth removed Family History Mother Diabetes Maternal Uncle Diabetes Social History Household Members: Significant Other and Children Housing: House Do you presently have visiting nurse or other home services: No Alcohol intake: current Alcohol intake frequency: a few times a month Patient Tobacco Use Status: Former Tobacco user Quit Date: 2009 e-Cigarette/Vaping Use: Never Used Substance Use Type: Marijuana service: No Current occupational status: employed Current occupation: [employer] Cognitive needs: No Hearing needs: No Vision needs: No Questionnaire Thrive Questionnaire Date Thrive assessed: 05/29/22 UTE-7 AMB Questionnaire UTE-7 Date UTE - 7 assessed: 07/03/22 Source: Developed by Drs. Higinio Rodriguez, Olivia Rayo, Edilberto Freeman and colleagues, with an educational smitha from [employer]. Review of Systems Const Details: Const Denies chills, Denies fatigue, Denies fever(s), Denies headache(s) and Denies weakness ENT Denies dizziness and Denies headache(s) Card Denies chest pain, Denies lightheadedness, Denies dyspnea and Denies other (Palpitations) Resp Denies cough, Denies dyspnea, Denies wheezing and Reports shortness of breath GI Denies abdominal pain, Denies melena, Denies hematochezia, Denies change in bowel habits, Denies dyspepsia and Denies nausea Denies hematuria and Denies dysuria Musc Denies abnormal gait, Denies myalgias, Denies arthralgias, Denies numbness and Denies tingling Skin/Breast Denies rash, Denies unusual bruising and Denies wounds Neuro Denies abnormal gait, Denies dizziness, Denies headache(s), Denies memory loss, Denies numbness, Denies Sensory deficit (Neuro), Denies tingling and Denies weakness Psych Denies anxiety, Denies depression, Denies memory loss Endo Denies cold intolerance, Denies fatigue, Denies heat intolerance, Denies polydipsia and Denies polyuria Aller/Immun Denies wheezing Physical exam (Primary Care) Vital Signs: Last Vital Signs Temp 97.8 F 04/09/23 08:47 Pulse 97 04/09/23 08:47 Resp 13 04/09/23 08:47 BP 160/80 H 04/09/23 08:47 Pulse Ox 99 04/09/23 08:47 Oxygen Delivery Method Room Air 04/09/23 08:47 BMI result Body Mass Index 40.1 Tobacco/Smoking Status: Tobacco use Status Tobacco use date assessed 02/05/23 04/09/23 08:49 Patient Tobacco Use Status Former Tobacco user 04/09/23 08:49 Tobacco use type 05/29/22 09:45 e-Cigarette/Vaping Use Never Used 04/09/23 08:49 Thrive Assessment: Date of Thrive Assessment Date Thrive assessed 05/29/22 04/09/23 08:49 Const Other: General: no acute distress and well developed Nutritional Appearance: well nourished Orientation/consciousness: patient oriented x3 HENMT Head: Yes normocephalic and Yes atraumatic Eyes General: appearance normal, both eyes and all related structures Pupils: Equal, round and reactive pupils present EOM: EOMs intact bilaterally Resp Effort & Inspection: normal respiratory effort Auscultation: clear to auscultation bilaterally Cardio Rate: regular rate Rhythm: regular rhythm Heart sounds: S1 normal heart sound present, S2 normal heart sound present, no gallops, no murmurs and no rubs GI Palpation (GI): No Abdominal aortic bruit present, Soft to palpation, nontender, No hepatosplenomegaly present and No Rebound tenderness present Auscultation: normal bowel sounds General: Yes no CVA tenderness Back/Spine/Pelvis Back: no CVA tenderness Cervical Spine: cervical ROM normal and No Cervical spine tenderness Thoracic/Lumbar Spine: thoraco-lumbar ROM normal, No pain with thoraco-lumbar ROM, No thoracic spinal tenderness and No lumbar spinal tenderness Extrem General: Yes normal to inspection, No calf tenderness, Moderate nonpitting edema to left ankle and foot, mild nonpitting edema to right ankle and foot, positive pulses bilaterally Skin General: warm and dry. Normal skin color. Normal skin turgor Lesions: no lesions Rashes: no rashes Trauma: no lacerations or abrasions Wounds: no wounds Nails: normal Neuro General: patient oriented x3, gait normal and no focal neuro deficit Cranial nerves: Yes Equal, round and reactive pupils present Cognition (Neuro): normal cognition Gait exam (Neuro): Normal gait present Sensory Exam: No Sensory deficit (Neuro) Psych Appearance: grossly normal Affect: normal affect Attitude: cooperative Thought process: Normal thought process present Assessment and Plan Assessment & Plan (1) Hypertension: Code(s): I10 - Essential (primary) hypertension Qualifiers: Hypertension type: primary hypertension Qualified Code(s): I10 - Essential (primary) hypertension Plan: Resting blood pressure is 160/80, above goal of less than 140/80 Metoprolol ordered. Take as prescribed Continue to take losartan as prescribed He notes that he has not been adding extra salt to his diet. Low-sodium diet encouraged, no more than 1 g daily Follow-up in 4 days or return sooner with symptoms or concerns Verbalized understanding and agreed with treatment plan (2) Elevated cholesterol with high triglycerides: Code(s): E78.2 - Mixed hyperlipidemia Plan: He had lipid panel blood work done yesterday. Triglycerides and HDL levels are improving, 157 and 40 respectively. LDL is 80, above goal of less than 70. Total cholesterol level is normal Will increase atorvastatin to 40 mg daily. Take as prescribed Continue to take fenofibrate as prescribed Advised to limit foods high in saturated fat and avoid foods high trans fat Routine exercise encouraged Will recheck lipid panel levels in 6 weeks Verbalized understanding and agreed with treatment plan (3) SOB (shortness of breath): Code(s): R06.02 - Shortness of breath Plan: Reports 1 week of shortness of breath with moderate exertion and associated wheezing while asleep. He also reports associated productive cough with yellow to clear phlegm and nasal congestion. He notes swelling to his ankle and feet, worse on right ankle and foot for the past 2-3 months. His notes that he snores when he sleeps No JVD Moderate nonpitting edema to left ankle and foot, mild nonpitting edema to right ankle and foot, positive pulses bilaterally Likely CHF, sleep apnea, or allergies Furosemide and Flonase as prescribed CBC, CMP, and BNP ordered. Will review results and make changes as needed Low-sodium diet encouraged Referred to sleep medicine for sleep apnea evaluation Follow-up in 4 days. Return sooner or go to the ED with worsening or new symptoms Verbalized understanding and agreed with treatment plan (4) Edema of both feet: Code(s): R60.0 - Localized edema Plan: As above (5) Snoring: Code(s): R06.83 - Snoring Plan: As above Orders: Orders Complete Blood Count no Diff Today I10 - Essential (primary) hypertension, R06.02 - Shortness of breath, R60.0 - Localized edema B Type Natriuretic Peptide Today I10 - Essential (primary) hypertension, R06.02 - Shortness of breath, R60.0 - Localized edema Comprehensive [place]. Panel Fast Today I10 - Essential (primary) hypertension, R06.02 - Shortness of breath, R60.0 - Localized edema Referrals Sleep Medicine Referral R06.83 - Snoring Medications: New metoprolol tartrate 50 mg PO DAILY 30 days 30 tabs 3RF furosemide 20 mg PO DAILY 5 days 5 tabs 0RF atorvastatin 40 mg PO BEDTIME 30 days 30 tabs 3RF fluticasone propionate 50 mcg/actuation (Flonase Allergy Relief) administer into each nostril 1 spray intranasal Q12H 16 grams 0RF Discontinued atorvastatin Discontinued Reason: Doctor's Order 20 mg PO BEDTIME 90 tabs 3RF E78.2 - Mixed hyperlipidemia Coding Level of Care Code Est Pt Level 4 (74118) Diagnoses Primary hypertension I10 Hypertension type: primary hypertension Elevated cholesterol with high triglycerides E78.2 SOB (shortness of breath) R06.02 Edema of both feet R60.0 Snoring R06.83
== END 2023-04-09 09:45 | disposition home or self-care (01) ==
PROVIDERS: PCP Nurse Practitioner Family; Visit Provider Nurse Practitioner Family
DX: I10 Essential (primary) hypertension (principal); E78.2 Mixed hyperlipidemia; R06.02 Shortness of breath; R60.0 Localized edema; R06.83 Snoring
CPT/HCPCS: 99214

== ENCOUNTER 2023-04-10 07:49 | Outpatient (REF) | payer OTHER, SELFPAY ==
--- NOTE | ~2023-04-10 | XR_ITS ---
EXAMINATION: XR CHEST CLINICAL INFORMATION: Shortness of breath COMPARISON: None available. TECHNIQUE: 2 views of the chest were obtained. FINDINGS: The lungs are well-expanded. Ill-defined opacity seen in the lingular segment.. It is not well visualized on the lateral view Rest of lungs are clear. Heart size and pulmonary vascularity is normal. No gross bony abnormality seen. XR/XR chest 2V IMPRESSION: Ill-defined patchy opacity in the lingula, likely thick walled cavity. Question resolving infiltrate versus underlying lesion. Recommend CT chest without contrast.
[2023-04-10 08:32] LABS: B Type Natriuretic Peptide 266 pg/mL (<100)
[2023-04-10 08:51] LABS: Hematocrit 33.5 % (42.0-52.0); Hemoglobin 10.8 g/dl (14.0-18.0); Mean Corpuscular HGB Conc 32.2 g/dl (31.0-36.0); Mean Corpuscular Hemoglobin 29.7 pg (27.0-33.0); Mean Platelet Volume 11.9 fL (9.4-12.4); Platelet Count 235 X10*3/uL (160-400); Red Blood Count 3.64 X10*6/uL (4.60-5.80); Red Cell Distribution Width 12.6 % (11.0-16.0); White Blood Count 11.9 X10*3/uL (4.8-10.8)
[2023-04-10 08:59] LABS: Alanine Aminotransferase 20 U/L (0-40); Albumin Level 3.4 g/dL (3.5-5.0); Alkaline Phosphatase 128 U/L (39-117); Aspartate Amino Transferase 20 U/L (5-37); Bilirubin Total 0.5 mg/dL (0.0-1.0); Blood Urea Nitrogen 27 mg/dL (9-16); Calcium 9.5 mg/dL (8.4-10.2); Estimated Glomerular Filt Rate 54; Glucose Fasting 116 mg/dL (60-99); Total Protein 7.3 g/dL (6.5-8.0)
[2023-04-10 09:07] LABS: Anion Gap 13 (12-20)
[2023-04-10 09:22] LABS: Carbon Dioxide 21 mmol/L (22-29); Chloride 109 mmol/L (96-108); Potassium 6.1 mmol/L (3.3-5.1); Sodium 137 mmol/L (135-145)
[2023-04-10 16:17] LABS: Potassium 6.2 mmol/L (3.3-5.1)
== END 2023-04-10 07:50 | disposition home or self-care (01) ==
LOC: HO.10HDL 07:49
PROVIDERS: PCP Nurse Practitioner Family; Visit Provider Nurse Practitioner Family
DX: R60.0 Localized edema (principal); R06.02 Shortness of breath; E87.5 Hyperkalemia; I10 Essential (primary) hypertension
CPT/HCPCS: 36415; 71046; 80053; 83880; 84132; 85027

== ENCOUNTER 2023-04-13 08:11 | Outpatient (REF) | payer OTHER, SELFPAY ==
[2023-04-13 08:52] LABS: Potassium 6.1 mmol/L (3.3-5.1)
[2023-04-13 15:07] LABS: Iron 43 mcg/dL (45-160); Percent Iron Saturation 17 % (15-50); Potassium 5.3 mmol/L (3.3-5.1); Total Iron Binding Capacity 249 mcg/dL (228-428); Unsaturated Iron Binding 206 ug/dL
[2023-04-13 15:11] LABS: B Type Natriuretic Peptide 211 pg/mL (<100)
[2023-04-13 15:18] LABS: Ferritin 107 ng/mL (20-250)
[2023-04-13 15:32] LABS: Folate 11.9 ng/mL (> or = 4.0); Vitamin B12 578 pg/mL (200-900)
== END 2023-04-13 08:12 | disposition home or self-care (01) ==
LOC: HO.LAB 08:11
PROVIDERS: PCP Nurse Practitioner Family; Visit Provider Nurse Practitioner Family
DX: E87.5 Hyperkalemia (principal); I10 Essential (primary) hypertension; D64.9 Anemia, unspecified; M25.471 Effusion, right ankle; M25.472 Effusion, left ankle; M25.474 Effusion, right foot; M25.475 Effusion, left foot
CPT/HCPCS: 36415; 82607; 82728; 82746; 83540; 83880; 84132

== ENCOUNTER 2023-04-13 10:25 | Outpatient (AMB) | payer OTHER, SELFPAY ==
[2023-04-13 10:30] VITALS: BP 154/80; PULSE 74; RESP 14; TEMP 36.3; O2SAT 98; BMI 38.9
--- NOTE | 2023-04-13 10:30 | MHC.PC.OV ---
Vital Signs 04/13/23 10:30 04/13/23 10:55 Height 5 ft 8 in Weight 256 lb 2 oz BMI 38.9 BP 154/80 H 148/70 H Blood Pressure Location Rt brachial Lt brachial Position Sitting Sitting Respiration 14 Pulse 74 72 Pulse Source Pulse Oximeter Auscultation Temp 97.4 F Temp Source Temporal Artery Scan Pulse Oximetry (%) 98 Oxygen Delivery Method Room Air Intake Visit Reasons: HTN, SOB, swelling of both feet Blower Feeder Dyed Raw Stock Required: No Accompanied by: Self / Same As Patient Allergies No Known Allergies Allergy (Verified 04/13/23 10:51) Medication List - Last Reconciled 04/13/23 by Quique Tatum CNP alcohol swabs 1 pad topical QIDACHS atorvastatin 40 mg PO BEDTIME 30 days blood sugar diagnostic (FreeStyle Lite Strips) Test four times a day or as directed. blood-glucose meter (FreeStyle Lite Meter kit) As Directed fenofibrate 54 mg PO DAILY 30 days fluticasone propionate 50 mcg/actuation (Flonase Allergy Relief) 1 spray intranasal Q12H furosemide 20 mg PO DAILY 5 days insulin glargine (Basaglar KwikPen U-100 Insulin) 15 units (0.15 mL) subcut QPM insulin lispro (Humalog KwikPen (U-100) Insulin) 1 sliding scale dose subcut QIDACHS lancets (FreeStyle Lancets) TEST FOUR TIMES A DAY OR DIRECTED. losartan 50 mg PO BID 30 days metformin 1,000 mg PO BID metoprolol tartrate 50 mg PO DAILY 30 days multivitamin 1 tab PO DAILY omega-3 fatty acids 1,000 mg PO TID pen needle, diabetic (BD Toshia 2nd Gen Pen Needle) USE FOUR TIMES A DAY OR DIRECTED. zinc acetate 50 mg (2 x 25 mg (zinc)) PO BID 3 months Tobacco use date assessed: 02/05/23 Dental Screening Dental Screen Date: 04/13/23 Did you have a dental visit in the last 12 months?: No Did you have a dental problem in the last 6 months where you did not have access to dental care?: No Was dental information given to patient?: Patient has dentist HPI HPI Comments History of Present Illness Details 52-year-old male presents for hypertension, shortness of breath, swelling of both feet, and hyperkalemia follow-up Four days ago, presented with shortness of breath, productive cough, swelling of both feet, and hypertension Recent BMP is elevated, 266. Potassium has been elevated. Chest x-ray revealed Ill-defined patchy opacity in the lingula, likely thick walled cavity. Question resolving infiltrate versus underlying lesion. Recommend CT chest without contrast. He admitted to eating potassium rich foods. He was advised to avoid a limits intake of potassium rich foods Potassium level today is 6.1 He admits to taking his medications as prescribed without adverse reactions He also admits to avoiding potassium rich foods He denies heart palpitations, shortness of breath, chest pain, nausea, or vomiting He denies acute symptoms at this time He notes that the swelling to his ankles and feet is improving [facility] Medical History Postoperative visit Necrotizing subcutaneous infection Hypertension Type 2 diabetes Surgical History Status post incision and drainage [place] teeth removed Family History (Updated 04/13/23 @ 10:38 by Saranya Miller MA) Mother Diabetes Maternal Uncle Diabetes Sister Multiple sclerosis Social History Household Members: Significant Other and Children Housing: House Do you presently have visiting nurse or other home services: No Alcohol intake: current Alcohol intake frequency: a few times a month Patient Tobacco Use Status: Former Tobacco user Quit Date: 2009 e-Cigarette/Vaping Use: Never Used Substance Use Type: Marijuana service: No Current occupational status: employed Current occupation: [employer] Cognitive needs: No Hearing needs: No Vision needs: No Questionnaire Thrive Questionnaire Date Thrive assessed: 05/29/22 UTE-7 AMB Questionnaire UTE-7 Date UTE - 7 assessed: 07/03/22 Source: Developed by Drs. Higinio Rodriguez, Olivia Rayo, Edilberto Freeman and colleagues, with an educational smitha from [employer]. Review of Systems Const Details: Const Denies chills, Denies fatigue, Denies fever(s), Denies headache(s) and Denies weakness ENT Denies dizziness and Denies headache(s) Card Denies chest pain, Denies lightheadedness, Denies dyspnea and Denies other (Palpitations) Resp Denies cough, Denies dyspnea, Denies wheezing and Denies other ( shortness of breath) GI Denies abdominal pain, Denies melena, Denies hematochezia, Denies change in bowel habits, Denies dyspepsia and Denies nausea Denies hematuria and Denies dysuria Musc Reports as per HPI Skin/Breast Denies rash, Denies unusual bruising and Denies wounds Neuro Denies abnormal gait, Denies dizziness, Denies headache(s), Denies memory loss, Denies numbness, Denies Sensory deficit (Neuro), Denies tingling and Denies weakness Psych Denies anxiety, Denies depression, Denies memory loss Endo Denies cold intolerance, Denies fatigue, Denies heat intolerance, Denies polydipsia and Denies polyuria Aller/Immun Denies wheezing Physical exam (Primary Care) Vital Signs: Last Vital Signs Temp 97.4 F 04/13/23 10:30 Pulse 72 04/13/23 10:55 Resp 14 04/13/23 10:30 BP 148/70 H 04/13/23 10:55 Pulse Ox 98 04/13/23 10:30 Oxygen Delivery Method Room Air 04/13/23 10:30 BMI result Body Mass Index 38.9 Tobacco/Smoking Status: Tobacco use Status Tobacco use date assessed 02/05/23 04/13/23 10:36 Patient Tobacco Use Status Former Tobacco user 04/13/23 10:36 Tobacco use type 05/29/22 09:45 e-Cigarette/Vaping Use Never Used 04/13/23 10:36 Thrive Assessment: Date of Thrive Assessment Date Thrive assessed 05/29/22 04/13/23 10:36 Const Other: General: no acute distress and well developed Nutritional Appearance: well nourished Orientation/consciousness: patient oriented x3 HENMT Head: Yes normocephalic and Yes atraumatic Eyes General: appearance normal, both eyes and all related structures Pupils: Equal, round and reactive pupils present EOM: EOMs intact bilaterally Resp Effort & Inspection: normal respiratory effort Auscultation: clear to auscultation bilaterally Cardio Rate: regular rate Rhythm: regular rhythm Heart sounds: S1 normal heart sound present, S2 normal heart sound present, no gallops, no murmurs and no rubs GI Palpation (GI): No Abdominal aortic bruit present, Soft to palpation, nontender, No hepatosplenomegaly present and No Rebound tenderness present Auscultation: normal bowel sounds General: Yes no CVA tenderness Back/Spine/Pelvis Back: no CVA tenderness Cervical Spine: cervical ROM normal and No Cervical spine tenderness Thoracic/Lumbar Spine: thoraco-lumbar ROM normal, No pain with thoraco-lumbar ROM, No thoracic spinal tenderness and No lumbar spinal tenderness Extrem General: Yes normal to inspection, No calf tenderness 1+ pitting edema to both ankles and feet, left ankle/foot greater than right Skin General: warm and dry. Normal skin color. Normal skin turgor Neuro General: patient oriented x3, gait normal and no focal neuro deficit Cranial nerves: Yes Equal, round and reactive pupils present Cognition (Neuro): normal cognition Gait exam (Neuro): Normal gait present Sensory Exam: No Sensory deficit (Neuro) Psych Appearance: grossly normal Affect: normal affect Attitude: cooperative Thought process: Normal thought process present Office Procedures EKG Details: duplicate [id number], Complete EKG [id number], Complete Assessment and Plan Assessment & Plan (1) High potassium: Code(s): E87.5 - Hyperkalemia Plan: Potassium level today is elevated, 6.1 EKG revealed peaked T-waves on V1-V6, normal sinus rhythm, normal axis, normal interval, no hypertrophic Likely due to fluid retention. Poor renal clearance or Losartan may also be a contributing factor Will increase furosemide to 40 mg daily. Take as prescribed Adequate hydration encouraged Avoid potassium rich foods Follow-up in 2 days or return sooner or go to the ED with heart palpitations, shortness of breath, chest pain, nausea, or vomiting Verbalized understanding and agreed with treatment plan (2) Hypertension: Code(s): I10 - Essential (primary) hypertension Qualifiers: Hypertension type: primary hypertension Qualified Code(s): I10 - Essential (primary) hypertension Plan: Resting blood pressure is 148/70, above goal of less than 140/90 Likely due to fluid retention Will recheck BNP Losartan, metoprolol, and Lasix as prescribed Low-sodium diet encouraged Follow-up in 2 days Verbalized understanding and agreed with the treatment plan (3) Bilateral swelling of feet and ankles: Code(s): M25.471 - Effusion, right ankle; M25.472 - Effusion, left ankle; M25.474 - Effusion, right foot; M25.475 - Effusion, left foot Plan: 1+ pitting edema to both ankles and feet, left ankle/foot greater than right No shortness of breath Lasix as prescribed Advised to elevate his bilateral lower extremity to reduce swelling Repeat BNP ordered Follow-up in 2 days or return sooner with symptoms or concerns Verbalized understanding and agreed with treatment plan (4) Anemia: Code(s): D64.9 - Anemia, unspecified Plan: Recent RBC, and H&H levels are low, 3.4 and 10.8/33.5 respectively. MCV is normal Will check iron profile, ferritin level, and vitamin B12/folate Will make changes as needed (5) Abnormal chest x-ray: Code(s): R93.89 - Abnormal findings on diagnostic imaging of other specified body structures Plan: Recent chest x-ray revealed Ill-defined patchy opacity in the lingula, likely thick walled cavity. Question resolving infiltrate versus underlying lesion. Recommend CT chest without contrast. Shortness of breath has resolved Will repeat chest x-ray later this week Orders: Orders IRON PROFILE Today D64.9 - Anemia, unspecified Vitamin B12 and Folate Today D64.9 - Anemia, unspecified Potassium Today E87.5 - Hyperkalemia B Type Natriuretic Peptide Today I10 - Essential (primary) hypertension, M25.471 - Effusion, right ankle, M25.472 - Effusion, left ankle, M25.474 - Effusion, right foot, M25.475 - Effusion, left foot XR chest 2V Today R93.89 - Abnormal findings on diagnostic imaging of other specified body structures Ferritin Today D64.9 - Anemia, unspecified AMB EKG-In Office Today R00.2 - Palpitations Medications: New furosemide 40 mg PO DAILY 5 days 5 tabs 0RF Discontinued furosemide Discontinued Reason: Doctor's Order 20 mg PO DAILY 5 days 5 tabs 0RF Coding Level of Care Code Est Pt Level 3 (47040) Diagnoses High potassium E87.5 Primary hypertension I10 Hypertension type: primary hypertension Bilateral swelling of feet and ankles M25.471; M25.472; M25.474; M25.475 Anemia D64.9 Abnormal chest x-ray R93.89 CPT Codes EKG - CPT: 65204-[id number], Complete ([id number]) EKG - CPT: 37573-[id number], Complete ([id number])
[2023-04-13 10:55] VITALS: BP 148/70; PULSE 72
== END 2023-04-13 11:19 | disposition home or self-care (01) ==
PROVIDERS: PCP Nurse Practitioner Family; Visit Provider Nurse Practitioner Family
DX: E87.5 Hyperkalemia (principal); I10 Essential (primary) hypertension; M25.471 Effusion, right ankle; M25.472 Effusion, left ankle; M25.474 Effusion, right foot; M25.475 Effusion, left foot; D64.9 Anemia, unspecified; R93.89 Abnormal findings on diagnostic imaging of other specified body structures
CPT/HCPCS: 93000; 99213

== ENCOUNTER 2023-04-15 08:14 | Outpatient (REF) | payer OTHER, SELFPAY ==
[2023-04-15 09:40] LABS: Potassium 5.3 mmol/L (3.3-5.1)
== END 2023-04-15 08:15 | disposition home or self-care (01) ==
LOC: HO.LAB 08:14
PROVIDERS: PCP Nurse Practitioner Family; Visit Provider Nurse Practitioner Family
DX: E87.5 Hyperkalemia (principal)
CPT/HCPCS: 36415; 84132

== ENCOUNTER 2023-04-15 12:48 | Outpatient (AMB) | payer OTHER, SELFPAY ==
[2023-04-15 13:01] VITALS: BP 156/74; PULSE 81; RESP 13; TEMP 36.4; O2SAT 97; BMI 39.1
--- NOTE | 2023-04-15 13:01 | A.OFFVISP_ITS ---
Intake Pediatric Intake Visit Reasons: 2 day follow up hyperkalemia Allergies No Known Allergies Allergy (Verified 04/13/23 10:51) PFS Medical History Postoperative visit Necrotizing subcutaneous infection Hypertension Type 2 diabetes Surgical History Status post incision and drainage [place] teeth removed Family History (Updated 04/13/23 @ 10:38 by Saranya Miller MA) Mother Diabetes Maternal Uncle Diabetes Sister Multiple sclerosis Social History Household Members: Significant Other and Children Housing: House Do you presently have visiting nurse or other home services: No Alcohol intake: current Alcohol intake frequency: a few times a month Patient Tobacco Use Status: Former Tobacco user Quit Date: 2009 e-Cigarette/Vaping Use: Never Used Substance Use Type: Marijuana service: No Current occupational status: employed Current occupation: [employer] Cognitive needs: No Hearing needs: No Vision needs: No Coding
--- NOTE | 2023-04-15 13:01 | MHC.PC.OV ---
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 blood-glucose meter (FreeStyle Lite Meter kit) As Directed fenofibrate 54 mg PO DAILY 30 days ferrous sulfate 325 mg PO DAILY 30 days fluticasone propionate 50 mcg/actuation (Flonase Allergy Relief) 1 spray intranasal Q12H furosemide 40 mg PO DAILY 5 days insulin glargine (Basaglar KwikPen U-100 Insulin) 15 units (0.15 mL) subcut QPM insulin lispro (Humalog KwikPen (U-100) Insulin) 1 sliding scale dose subcut QIDACHS lancets (FreeStyle Lancets) TEST FOUR TIMES A DAY OR DIRECTED. losartan 50 mg PO BID 30 days metformin 1,000 mg PO BID metoprolol tartrate 50 mg PO DAILY 30 days multivitamin 1 tab PO DAILY omega-3 fatty acids 1,000 mg PO TID pen needle, diabetic (BD Toshia 2nd Gen Pen Needle) USE FOUR TIMES A DAY OR DIRECTED. zinc acetate 50 mg (2 x 25 mg (zinc)) PO BID 3 months Tobacco use date assessed: 02/05/23 Dental Screening Dental Screen Date: 04/15/23 Did you have a dental visit in the last 12 months?: No Did you have a dental problem in the last 6 months where you did not have access to dental care?: No Was dental information given to patient?: Patient has dentist HPI HPI Comments History of Present Illness Details 52-year-old male presents for hyperkalemia and bilateral ankle and feet swelling follow-up. He initially had shortness of breath which has completely resolved He has been taking furosemide as prescribed He notes he has been taking ferrous sulfate as prescribed for recently diagnosed iron deficiency anemia He notes that the swelling to his ankles and feet is improving. He notes that his work requires prolonged standing, at least 5 hours daily He denies shortness of breath or acute symptoms at this time [facility] Medical History Postoperative visit Necrotizing subcutaneous infection Hypertension Type 2 diabetes Surgical History Status post incision and drainage [place] teeth removed Family History Mother Diabetes Maternal Uncle Diabetes Sister Multiple sclerosis Social History Household Members: Significant Other and Children Housing: House Do you presently have visiting nurse or other home services: No Alcohol intake: current Alcohol intake frequency: a few times a month Patient Tobacco Use Status: Former Tobacco user Quit Date: 2009 e-Cigarette/Vaping Use: Never Used Substance Use Type: Marijuana service: No Current occupational status: employed Current occupation: [employer] Cognitive needs: No Hearing needs: No Vision needs: No Questionnaire Thrive Questionnaire Date Thrive assessed: 05/29/22 UTE-7 AMB Questionnaire UTE-7 Date UTE - 7 assessed: 07/03/22 Source: Developed by Drs. Higinio Rodriguez, Olivia Rayo, Edilberto Freeman and colleagues, with an educational smitha from [employer]. Review of Systems Const Details: Const Denies chills, Denies fatigue, Denies fever(s), Denies headache(s) and Denies weakness ENT Denies dizziness and Denies headache(s) Card Denies chest pain, Denies lightheadedness, Denies dyspnea and Denies other (Palpitations) Resp Denies cough, Denies dyspnea, Denies wheezing and Denies other ( shortness of breath) GI Denies abdominal pain, Denies melena, Denies hematochezia, Denies change in bowel habits, Denies dyspepsia and Denies nausea Denies hematuria and Denies dysuria Musc Reports as per HPI Skin/Breast Denies rash, Denies unusual bruising and Denies wounds Neuro Denies abnormal gait, Denies dizziness, Denies headache(s), Denies memory loss, Denies numbness, Denies Sensory deficit (Neuro), Denies tingling and Denies weakness Psych Denies anxiety, Denies depression, Denies memory loss Endo Denies cold intolerance, Denies fatigue, Denies heat intolerance, Denies polydipsia and Denies polyuria Aller/Immun Denies wheezing Physical exam (Primary Care) Vital Signs: Last Vital Signs Temp 97.6 F 04/15/23 13:01 Pulse 81 04/15/23 13:01 Resp 13 04/15/23 13:01 BP 156/74 H 04/15/23 13:01 Pulse Ox 97 04/15/23 13:01 Oxygen Delivery Method Room Air 04/15/23 13:01 BMI result Body Mass Index 39.1 Tobacco/Smoking Status: Tobacco use Status Tobacco use date assessed 02/05/23 04/15/23 13:08 Patient Tobacco Use Status Former Tobacco user 04/15/23 13:08 Tobacco use type 04/13/23 11:08 e-Cigarette/Vaping Use Never Used 04/15/23 13:08 Thrive Assessment: Date of Thrive Assessment Date Thrive assessed 05/29/22 04/15/23 13:08 Const Other: General: no acute distress and well developed Nutritional Appearance: well nourished Orientation/consciousness: patient oriented x3 HENMT Head: Yes normocephalic and Yes atraumatic Eyes General: appearance normal, both eyes and all related structures Pupils: Equal, round and reactive pupils present EOM: EOMs intact bilaterally Resp Effort & Inspection: normal respiratory effort Auscultation: clear to auscultation bilaterally Cardio Rate: regular rate Rhythm: regular rhythm Heart sounds: S1 normal heart sound present, S2 normal heart sound present, no gallops, no murmurs and no rubs GI Palpation (GI): No Abdominal aortic bruit present, Soft to palpation, nontender, No hepatosplenomegaly present and No Rebound tenderness present Auscultation: normal bowel sounds General: Yes no CVA tenderness Back/Spine/Pelvis Back: no CVA tenderness Cervical Spine: cervical ROM normal and No Cervical spine tenderness Thoracic/Lumbar Spine: thoraco-lumbar ROM normal, No pain with thoraco-lumbar ROM, No thoracic spinal tenderness and No lumbar spinal tenderness Extrem General: Yes normal to inspection, No calf tenderness 1+ pitting edema to both ankles and feet, left ankle/foot greater than right Skin General: warm and dry. Normal skin color. Normal skin turgor Neuro General: patient oriented x3, gait normal and no focal neuro deficit Cranial nerves: Yes Equal, round and reactive pupils present Cognition (Neuro): normal cognition Gait exam (Neuro): Normal gait present Sensory Exam: No Sensory deficit (Neuro) Psych Appearance: grossly normal Affect: normal affect Attitude: cooperative Thought process: Normal thought process present Assessment and Plan Assessment & Plan (1) High potassium: Code(s): E87.5 - Hyperkalemia Plan: Potassium level today is slightly elevated, 5.3 Advised to finish course of furosemide Continue to avoid potassium rich foods Will recheck potassium level in 1 week. Advised to get blood work done before his next visit Follow-up in 1 week Return sooner with symptoms or concerns Verbalized understanding and agreed with treatment plan. (2) Abnormal chest x-ray: Code(s): R93.89 - Abnormal findings on diagnostic imaging of other specified body structures Plan: Recent chest x-ray revealed Ill-defined patchy opacity in the lingula, likely thick walled cavity. Question resolving infiltrate versus underlying lesion Will recheck chest x-ray in a week. Advised to get x-ray done before his next visit Follow-up in 1 week Verbalized understanding and agreed with the plan (3) Bilateral swelling of feet and ankles: Code(s): M25.471 - Effusion, right ankle; M25.472 - Effusion, left ankle; M25.474 - Effusion, right foot; M25.475 - Effusion, left foot Plan: Notes that swelling to his ankles and feet is improving. He notes that his work requires prolonged standing, at least 5 hours daily 1+ pitting edema to both ankles and feet, left ankle/foot greater than right Advised to avoid prolonged standing, use compression stockings daily, elevate BLE to reduce edema Follow-up in 1 week Verbalized understanding and agreed with treatment plan (4) Hypertension: Code(s): I10 - Essential (primary) hypertension Qualifiers: Hypertension type: primary hypertension Qualified Code(s): I10 - Essential (primary) hypertension Plan: Resting blood pressure is 140/70, above goal of less than 140/90 Metoprolol increased to 75 mg twice daily. Take as prescribed Continue to take losartan as prescribed Low-sodium diet encouraged Follow-up in 1 week or return sooner with symptoms or concerns Verbalized understanding and agreed with treatment plan Orders: Orders Potassium 1 Week E87.5 - Hyperkalemia Medications: New comp.stocking,knee,long,medium As directed 12 ea 0RF metoprolol tartrate 75 mg PO BID 30 days 60 tabs 3RF Discontinued metoprolol tartrate Discontinued Reason: Doctor's Order 50 mg PO DAILY 30 days 30 tabs 3RF Coding Level of Care Code Est Pt Level 3 (30564) Diagnoses High potassium E87.5 Abnormal chest x-ray R93.89 Bilateral swelling of feet and ankles M25.471; M25.472; M25.474; M25.475 Primary hypertension I10 Hypertension type: primary hypertension
[2023-04-15 13:32] VITALS: BP 140/70
== END 2023-04-15 13:59 | disposition home or self-care (01) ==
PROVIDERS: PCP Nurse Practitioner Family; Visit Provider Nurse Practitioner Family
DX: E87.5 Hyperkalemia (principal); R93.89 Abnormal findings on diagnostic imaging of other specified body structures; M25.471 Effusion, right ankle; M25.472 Effusion, left ankle; M25.474 Effusion, right foot; M25.475 Effusion, left foot; I10 Essential (primary) hypertension
CPT/HCPCS: 99213

== ENCOUNTER 2023-04-29 08:16 | Outpatient (REF) | payer OTHER, SELFPAY ==
[2023-04-29 09:11] LABS: Hematocrit 27.3 % (42.0-52.0); Hemoglobin 8.8 g/dl (14.0-18.0); Mean Corpuscular HGB Conc 32.2 g/dl (31.0-36.0); Mean Corpuscular Hemoglobin 29.8 pg (27.0-33.0); Mean Corpuscular Volume 92.5 fL (80.0-98.0); Mean Platelet Volume 12.4 fL (9.4-12.4); Platelet Count 219 X10*3/uL (160-400); Red Blood Count 2.95 X10*6/uL (4.60-5.80); Red Cell Distribution Width 12.6 % (11.0-16.0); White Blood Count 11.8 X10*3/uL (4.8-10.8)
[2023-04-29 09:43] LABS: Iron 31 mcg/dL (45-160); Percent Iron Saturation 13 % (15-50); Potassium 5.3 mmol/L (3.3-5.1); Total Iron Binding Capacity 234 mcg/dL (228-428); Unsaturated Iron Binding 203 ug/dL
[2023-04-29 11:17] LABS: Immature Retic Fraction 26.1 % (2.3-13.4); Reticulocyte Percent 2.6 % (0.5-1.8); Reticulocytes Absolute 0.076 X10*6/uL (0.026-0.095)
== END 2023-04-29 08:17 | disposition home or self-care (01) ==
LOC: HO.XRAY 08:16
PROVIDERS: Visit Provider Nurse Practitioner Family
DX: E87.5 Hyperkalemia (principal); R93.89 Abnormal findings on diagnostic imaging of other specified body structures; D50.9 Iron deficiency anemia, unspecified
CPT/HCPCS: 36415; 71046; 83540; 84132; 85027; 85045

== ENCOUNTER 2023-04-30 09:27 | Outpatient (AMB) | payer OTHER, SELFPAY ==
--- NOTE | 2023-04-30 09:29 | MHC.PC.OV ---
Vital Signs 04/30/23 09:30 Height 5 ft 8 in Weight 268 lb 6 oz BMI 40.8 BP 136/74 Blood Pressure Location Rt brachial Position Sitting Respiration 13 Pulse 68 Pulse Source Pulse Oximeter Temp 97.4 F Temp Source Temporal Artery Scan Pulse Oximetry (%) 98 Oxygen Delivery Method Room Air Intake Visit Reasons: f/u hyperkalemia, HTN, swelling to ankles/feet Intake Note: Patient is requesting refill on zinc and would like generic sent in due to it being cheaper. Dress Shoe Inspector Required: No Accompanied by: Self / Same As Patient Allergies No Known Allergies Allergy (Verified 04/30/23 10:04) Medication List - Last Reconciled 04/30/23 by Quique Tatum CNP alcohol swabs 1 pad topical QIDACHS atorvastatin 40 mg PO BEDTIME 30 days blood sugar diagnostic (FreeStyle Lite Strips) Test four times a day or as directed. blood-glucose meter (FreeStyle Lite Meter kit) As Directed comp.stocking,knee,long,medium As directed fenofibrate 54 mg PO DAILY 30 days ferrous sulfate 325 mg PO TID 30 days fluticasone propionate 50 mcg/actuation (Flonase Allergy Relief) 1 spray intranasal Q12H furosemide 40 mg PO DAILY 5 days insulin glargine (Basaglar KwikPen U-100 Insulin) 15 units (0.15 mL) subcut QPM lancets (FreeStyle Lancets) TEST FOUR TIMES A DAY OR DIRECTED. losartan 50 mg PO BID 30 days metformin 1,000 mg PO BID metoprolol tartrate 75 mg PO BID 30 days multivitamin 1 tab PO DAILY omega-3 fatty acids 1,000 mg PO TID pen needle, diabetic (BD Toshia 2nd Gen Pen Needle) USE FOUR TIMES A DAY OR DIRECTED. zinc acetate 50 mg (2 x 25 mg (zinc)) PO BID 3 months Tobacco use date assessed: 02/05/23 Dental Screening Dental Screen Date: 04/30/23 Did you have a dental visit in the last 12 months?: No Did you have a dental problem in the last 6 months where you did not have access to dental care?: No Was dental information given to patient?: Patient has dentist HPI HPI Comments History of Present Illness Details 52-year-old male presents for hyperkalemia, hypertension, and swelling to ankles and feet He admits to taking his medications as prescribed without adverse reaction He reports fatigue for about a week, not worsening He also admits to healthy dietary changes including, avoiding potassium rich foods He reports continued swelling to both ankles and feet and states the swelling has been present for the past 9 months. He states that his advised him to mention the swelling to his PCP He states that he notes a blister to his left 4th toe 3 days ago. He notes that the wound resulted from wearing tight fitted shoes that were given to have as gift during the holidays COUNT INCLUDES THE [facility] Medical History Postoperative visit Necrotizing subcutaneous infection Hypertension Type 2 diabetes Surgical History Status post incision and drainage [place] teeth removed Family History Mother Diabetes Maternal Uncle Diabetes Sister Multiple sclerosis Social History Household Members: Significant Other and Children Housing: House Do you presently have visiting nurse or other home services: No Alcohol intake: current Alcohol intake frequency: a few times a month Patient Tobacco Use Status: Former Tobacco user Quit Date: 2009 e-Cigarette/Vaping Use: Never Used Substance Use Type: Marijuana service: No Current occupational status: employed Current occupation: [employer] Cognitive needs: No Hearing needs: No Vision needs: No Questionnaire Thrive Questionnaire Date Thrive assessed: 05/29/22 UTE-7 AMB Questionnaire UTE-7 Date UTE - 7 assessed: 07/03/22 Source: Developed by Drs. Higinio Rodriguez, Olivia Rayo, Edilberto Freeman and colleagues, with an educational smitha from [employer]. Review of Systems Const Details: Const Denies chills, Reports fatigue, Denies fever(s), Denies headache(s) and Denies weakness ENT Denies dizziness and Denies headache(s) Card Denies chest pain, Denies lightheadedness, Denies dyspnea and Denies other (Palpitations) Resp Denies cough, Denies dyspnea, Denies wheezing and Denies other ( shortness of breath) GI Denies abdominal pain, Denies melena, Denies hematochezia, Denies change in bowel habits, Denies dyspepsia and Denies nausea Denies hematuria and Denies dysuria Musc Denies abnormal gait, Denies myalgias, Denies arthralgias, Denies numbness and Denies tingling Skin/Breast Reports as per HPI Neuro Denies abnormal gait, Denies dizziness, Denies headache(s), Denies memory loss, Denies numbness, Denies Sensory deficit (Neuro), Denies tingling and Denies weakness Psych Denies anxiety, Denies depression, Denies memory loss Endo Denies cold intolerance, Reports fatigue, Denies heat intolerance, Denies polydipsia and Denies polyuria Aller/Immun Denies wheezing Physical exam (Primary Care) Vital Signs: Last Vital Signs Temp 97.4 F 04/30/23 09:30 Pulse 68 04/30/23 09:30 Resp 13 04/30/23 09:30 BP 136/74 04/30/23 09:30 Pulse Ox 98 04/30/23 09:30 Oxygen Delivery Method Room Air 04/30/23 09:30 BMI result Body Mass Index 40.8 Tobacco/Smoking Status: Tobacco use Status Tobacco use date assessed 02/05/23 04/30/23 09:37 Patient Tobacco Use Status Former Tobacco user 04/30/23 09:37 Tobacco use type 04/13/23 11:08 e-Cigarette/Vaping Use Never Used 04/30/23 09:37 Thrive Assessment: Date of Thrive Assessment Date Thrive assessed 05/29/22 04/30/23 09:37 Const Other: General: no acute distress and well developed Nutritional Appearance: well nourished Orientation/consciousness: patient oriented x3 HENMT Head: Yes normocephalic and Yes atraumatic Eyes General: appearance normal, both eyes and all related structures Pupils: Equal, round and reactive pupils present EOM: EOMs intact bilaterally Resp Effort & Inspection: normal respiratory effort Auscultation: clear to auscultation bilaterally Cardio Rate: regular rate Rhythm: regular rhythm Heart sounds: S1 normal heart sound present, S2 normal heart sound present, no gallops, no murmurs and no rubs GI Palpation (GI): No Abdominal aortic bruit present, Soft to palpation, nontender, No hepatosplenomegaly present and No Rebound tenderness present Auscultation: normal bowel sounds General: Yes no CVA tenderness Back/Spine/Pelvis Back: no CVA tenderness Cervical Spine: cervical ROM normal and No Cervical spine tenderness Thoracic/Lumbar Spine: thoraco-lumbar ROM normal, No pain with thoraco-lumbar ROM, No thoracic spinal tenderness and No lumbar spinal tenderness Extrem General: Yes normal to inspection, No calf tenderness 1+ pitting edema to both ankles and feet, left ankle/foot greater than right, DP/PT pulses nonpalpable Skin General: warm and dry. Normal skin color. Normal skin turgor Lesions: no lesions Rashes: no rashes Trauma: no lacerations or abrasions Wounds: Small, round, stage II wound with pink would bed noted to the left 4th digit. No overt signs of infection Nails: normal Neuro General: patient oriented x3, gait normal and no focal neuro deficit Cranial nerves: Yes Equal, round and reactive pupils present Cognition (Neuro): normal cognition Gait exam (Neuro): Normal gait present Sensory Exam: No Sensory deficit (Neuro) Psych Appearance: grossly normal Affect: normal affect Attitude: cooperative Thought process: Normal thought process present Assessment and Plan Assessment & Plan (1) Iron deficiency anemia: Code(s): D50.9 - Iron deficiency anemia, unspecified Plan: Reports fatigue x1 week Recent RBC and H&H is low, 2.95 and 8.8/27.3 respectively. Retic count is elevated. Iron level is low and trending down from previous, 31 Ferrous sulfate increased to 325 mg 3 times daily. Take as prescribed Adequate hydration encouraged Referred to Hematology Will repeat CBC in 1 week. Advised to get blood work done a few days before his next visit Follow-up in 1 week or return sooner with symptoms such as lightheadedness/dizziness, shortness of breath, chest pain, or increased fatigue Verbalized understanding and agreed with treatment plan (2) Bilateral swelling of feet and ankles: Code(s): M25.471 - Effusion, right ankle; M25.472 - Effusion, left ankle; M25.474 - Effusion, right foot; M25.475 - Effusion, left foot Plan: Reports continue swelling to both ankles and feet. The swelling has been present for the past 9 months 1+ pitting edema to both ankles and feet, left ankle/foot greater than right, DP/PT pulses nonpalpable Likely vascular issues Referred to vascular surgery Continue to elevate bilateral lower extremity Low-sodium diet encouraged Follow-up with worsening or new symptoms Verbalized understanding and agreed with treatment plan (3) High potassium: Code(s): E87.5 - Hyperkalemia Plan: Recent potassium level is slightly elevated, 5.3 Continue to avoid potassium rich foods Will repeat potassium level in 1 week. Advised to get blood work done a few days before his next visit Follow-up with symptoms or concerns Verbalized understanding and agreed with the treatment plan (4) Hypertension: Code(s): I10 - Essential (primary) hypertension Qualifiers: Hypertension type: primary hypertension Qualified Code(s): I10 - Essential (primary) hypertension Plan: Resting blood pressure is 136/74, slightly above goal of less than 130/70 Continue current treatment regimen Low-sodium diet encouraged Will continue to monitor He has a follow-up appointment next week Verbalized understanding and agreed with treatment plan (5) Wound, open, toe: Code(s): S91.109A - Unspecified open wound of unspecified toe(s) without damage to nail, initial encounter Plan: Reports blister to his left 4th digit Small, round, stage II wound with pink would bed noted to the left 4th digit. No overt signs of infection Advised to avoid tight fitted shoes Referred to [facility] wound clinic Follow-up with worsening signs and symptoms Verbalized understanding and agreed with treatment plan (6) Morbid obesity with BMI of 40.0-44.9, adult: Code(s): E66.01 - Morbid (severe) obesity due to excess calories; Z68.41 - Body mass index [BMI] 40.0-44.9, adult Plan: He gained 11 lb in the past 2 weeks. He notes that he ate too much pork during the holidays He notes he ate significant amount of pork during the holidays Healthy diet and routine exercise encouraged Referred to weight management Follow-up with symptoms or concerns Verbalized understanding and agreed with treatment plan Orders: Orders Basic Metabolic Panel 1 Week E87.5 - Hyperkalemia, M25.471 - Effusion, right ankle, M25.472 - Effusion, left ankle, M25.474 - Effusion, right foot, M25.475 - Effusion, left foot Referrals Wound Care Referral S91.109A - Unspecified open wound of unspecified toe(s) without damage to nail, initial encounter Medical Weight Management Referral E66.01 - Morbid (severe) obesity due to excess calories, Z68.41 - Body mass index [BMI] 40.0-44.9, adult Vascular Surgery Referral M25.471 - Effusion, right ankle, M25.472 - Effusion, left ankle, M25.474 - Effusion, right foot, M25.475 - Effusion, left foot Coding Level of Care Code Est Pt Level 4 (37407) Diagnoses Iron deficiency anemia D50.9 Bilateral swelling of feet and ankles M25.471; M25.472; M25.474; M25.475 High potassium E87.5 Primary hypertension I10 Hypertension type: primary hypertension Wound, open, toe S91.109A Morbid obesity with BMI of 40.0-44.9, adult E66.01; Z68.41
[2023-04-30 09:30] VITALS: BP 136/74; PULSE 68; RESP 13; TEMP 36.3; O2SAT 98; BMI 40.8
== END 2023-04-30 10:28 | disposition home or self-care (01) ==
PROVIDERS: PCP Nurse Practitioner Family; Visit Provider Nurse Practitioner Family
DX: M25.471 Effusion, right ankle (principal); M25.472 Effusion, left ankle; Z68.41 Body mass index [BMI] 40.0-44.9, adult; E66.01 Morbid (severe) obesity due to excess calories; D50.9 Iron deficiency anemia, unspecified; M25.474 Effusion, right foot; M25.475 Effusion, left foot; E87.5 Hyperkalemia; I10 Essential (primary) hypertension; S91.105 Unspecified open wound of left lesser toe(s) without damage to nail
CPT/HCPCS: 99214

== ENCOUNTER 2023-05-04 21:07 | Inpatient (IN) | payer OTHER, SELFPAY ==
--- NOTE | ~2023-05-04 | XR_ITS ---
EXAMINATION: XR CHEST CLINICAL INFORMATION: Shortness of breath chest radiograph from 04/29/2023 COMPARISON: None available. TECHNIQUE: Frontal view of the chest was obtained. FINDINGS: Continued increased of interstitial opacities. Slight elevation the right hemidiaphragm. Bibasilar atelectasis. Prominence of the pulmonary vasculature. No pneumothorax. Cardiomediastinal silhouette is not enlarged. No large pleural effusion. Osseous structures are intact. Soft tissues are unremarkable. XR/XR chest 1V IMPRESSION: 1. Continued increased of interstitial opacities. 2. Slight elevation the right hemidiaphragm. 3. Bibasilar atelectasis. 4. Prominence of the pulmonary vasculature.
[2023-05-04 21:35] VITALS: BP 194/96; PULSE 96; RESP 18; TEMP 36.4; O2SAT 94; BMI 40.5
--- NOTE | 2023-05-04 21:47 | ECG_ITS ---
Test Reason : SOB Blood Pressure : / mmHG Vent. Rate : 094 BPM Atrial Rate : 094 BPM P-R Int : 158 ms QRS Dur : 080 ms QT Int : 344 ms P-R-T Axes : 044 025 043 degrees QTc Int : 430 ms Normal sinus rhythm Normal ECG No previous ECGs available Referred By: Generic ED Physician Electronically Signed By:JAVID WEISS MD
--- NOTE | 2023-05-04 22:04 | MHC.EDTECH ---
Patient brought into triage area,EKG taken and signed by provider,Labs and Sars/Flu/Rsv obtained and sent to lab, patient brought to Xray
[2023-05-04 22:06] LABS: MANUAL DIFF FLAG NO
[2023-05-04 22:08] LABS: Basophils Absolute Auto 0.1 X10*3/uL (0.0-0.2); Basophils Percent Auto 0.6 % (0-2); Eosinophils Absolute Auto 0.4 X10*3/uL (0.0-0.4); Eosinophils Percent Auto 4.2 % (0-4); Hematocrit 28.1 % (42.0-52.0); Hemoglobin 9.1 g/dl (14.0-18.0); Imm Gran Abs Auto 0.05 X10*3/uL (0.00-0.03); Imm Gran Pct Auto 0.5 % (0.0-0.4); Lymphocytes Absolute Auto 1.9 X10*3/uL (1.2-4.9); Lymphocytes Percent Auto 19.5 % (20-40); Mean Corpuscular HGB Conc 32.4 g/dl (31.0-36.0); Mean Corpuscular Hemoglobin 29.6 pg (27.0-33.0); Mean Corpuscular Volume 91.5 fL (80.0-98.0); Mean Platelet Volume 11.8 fL (9.4-12.4); Monocytes Absolute Auto 0.7 X10*3/uL (0.1-1.2); Monocytes Percent Auto 7.1 % (2-11); Neutrophils Absolute Auto 6.6 x10*3/uL (2.0-8.3); Neutrophils Percent Auto 68.1 % (45-73); Platelet Count 230 X10*3/uL (160-400); Red Blood Count 3.07 X10*6/uL (4.60-5.80); Red Cell Distribution Width 12.8 % (11.0-16.0); White Blood Count 9.6 X10*3/uL (4.8-10.8)
[2023-05-04 22:25] LABS: Alanine Aminotransferase 24 U/L (0-40); Albumin Level 3.2 g/dL (3.5-5.0); Alkaline Phosphatase 117 U/L (39-117); Anion Gap 10 (12-20); Aspartate Amino Transferase 24 U/L (5-37); Bilirubin Total 0.3 mg/dL (0.0-1.0); Blood Urea Nitrogen 26 mg/dL (9-16); Carbon Dioxide 22 mmol/L (22-29); Chloride 108 mmol/L (96-108); Creatinine Clr Calc Pharmacy 82.7; Estimated Glomerular Filt Rate 56; Glucose Random 192 mg/dL (60-115); Potassium 4.8 mmol/L (3.3-5.1); Sodium 135 mmol/L (135-145); Total Protein 6.8 g/dL (6.5-8.0)
[2023-05-04 22:32] LABS: Troponin-I High Sensitivity 7.2 ng/L (<3.5-35.0)
[2023-05-04 22:43] LABS: Influenza A PCR NEGATIVE (Negative); Influenza B PCR NEGATIVE (Negative); Resp Syncy Virus RNA Qual PCR NEGATIVE (Negative); SARS COV2 PCR INHOUSE NEGATIVE (Negative)
[2023-05-05] VITALS (7 sets, daily range): BP systolic 161–188; BP diastolic 76–93; PULSE 70–83; RESP 16–20; TEMP 36.3–36.6; O2SAT 95–98; BMI 39.0
--- NOTE | 2023-05-05 04:17 | PC.NURSE ---
Patient is afebrile, patient reports dyspnea with exertion slightly improved. O2 Sat 94-06% RA, BP remains elevated 188/93. Patient denies dizziness/headache/chest pain. ED [id number] made aware of elevated BP.
--- NOTE | 2023-05-05 07:00 | CA_ITS ---
Transthoracic Echocardiogram Patient (Last, First, Middle): River Luque L Gender: Male Date of : 1970 Age: 52 Procedure Date: 05/05/2023 Procedure Type: Transthoracic Echocardiogram Location: ER Height: 172.72 cm Weight: 120.66 kg BSA: 2.31 m2 Heart Rate: 66 bpm BP: 163 / 83 mmHg Environmental Specialist: SHEILA Referring MD: Jose Elias Lane MD Social Service Coordinator: Jonnathan Pineda MD Symptoms: Heart failure Study Quality: Adequate w contrast ECG Rhythm: Sinus Conclusions: - 1. Low normal LV ejection fraction of 50-55% with restrictive filling pattern 2. Mildly dilated left atrium 3. Normal cardiac valvular Doppler 4. Mildly elevated right atrial pressures 5. No gross pericardial effusion Findings Procedure Information Contrast agent, definity, is being given per protocol without apparent complications. Left Ventricle Normal left ventricular cavity size. There is mildly increased left ventricular wall thickness. The left ventricular systolic function is normal. The visually estimated ejection fraction is between 50-55%. Spectral Doppler is indicative of a restrictive filling pattern. E/E prime ratio is between 8 and 15 consistent with indeterminate filling pressures. Right Ventricle Normal right ventricular cavity size and systolic function. Atria The left atrium is mildly dilated. Interatrial shunt cannot be excluded. The right atrium is normal in size. Aortic Valve Normal aortic valve structure and function. There is no aortic valve stenosis. There is no aortic valve regurgitation. Mitral Valve Normal mitral valve structure and function. There is trace mitral valve regurgitation. There is no mitral valve stenosis. Tricuspid Valve Likely normal tricuspid valve structure and function. Tricuspid regurgitation envelope is inadequate for calculation of right ventricular systolic pressure. Mildly elevated right atrial pressure. Great Vessels All visible segments of the aorta are normal in size. The pulmonary artery was not well visualized. Venous The inferior vena cava is normal in size and collapses greater than 50% with inspiration. Pericardium/Pleural There is no evidence of pericardial effusion. Prior Study Comparison No prior study available for comparison. Measurements 2D Linear Measurements IVSd: 1.18 0.6-0.9/0.6-1.0 cm LVIDd: 5.65 3.9-5.3/4.2-5.9 cm LVIDd Index: 2.45 2.4-3.2/2.2-3.1 cm/m2 LVIDs: 3.71 2.0-3.6 cm LVPWd: 1.25 0.7-1.1 cm LA Diam: 4.60 2.7-3.8/3.0-4.0 cm LAIDs Index: 1.99 1.5-2.3 cm/m2 LV Mass: 361.04 67-162/88-224 g LV Mass Index: 156.29 43-95/49-115 g/m2 LVOT Diam: 2.30 3.0+(-)1.3 cm 2D Systolic Function EF 4C: 47.90 >55% EF 2C: 59.40 >55% EF BiP: 53.10 >55% Mitral Valve MV Pk E: 1.05 MV PK A: 0.42 MV Decel Time: 122.00 E/A: 2.50 E'Lateral: 11.00 E'Medial: 5.98 E/E' Med: 17.60 E/E' Lat: 9.50 PHT: 36.00 MVA PHT: 6.11 Decel [place]: 8.55 Aortic Valve AoV Pk Harsh: 1.24 AoV Pk Grad: 6.00 AISHWARYA: 3.45 LVOT LVOT Pk Hasrh: 1.03 LVOT Mn Harsh: 0.70 LVOT VTI: 0.24 LVOT Pk Grad: 4.00 LVOT Mn Grad: 2.00 LVOT Diam: 2.30 LVOT Area: 4.15 Diastolic Function MV Pk E: 1.05 MV Pk A: 0.42 E/A: 2.50 E'Medial: 5.98 E/E' Med: 17.60 E' Laterial: 11.00 E/E' Lat: 9.50 Right Ventricle TAPSE (mm): 23.40 TVS' Harsh: 13.50 Tricuspid Valve RA Press: 8.00 Great Vessels Aorta Sinus of Valsalva: 3.00 2.0-3.5 cm Ao Asc: 3.30 2.1-3.4 cm Pulmonary Veins Pulm Vein S/D 0.60 Pulmonary Valve PV Pk Harsh: 0.80 Peak PV Grad: 3.00 Updated in Other Vendor System with Status of Final Jonnathan Pineda MD electronically signed on 05/05/2023 3:55:59 PM with status of Final
--- NOTE | 2023-05-05 07:41 | ED.SOB ---
HPI - SOB/Dyspnea General Chief Complaint: Dyspnea Stated Complaint: sob Time Seen by Provider: 05/05/23 07:40 Source: patient Limitations: no limitations History of Present Illness HPI Narrative: 52-year-old male with history diabetes mellitus, hypertension, hyperlipidemia, bilateral peripheral edema who presents emergency department for evaluation of dyspnea on exertion wheezing and shortness of breath x2 weeks. Patient states that he is had peripheral edema for approximately 6-9 months which is gotten progressively worse. Patient states that he was on a 5 day course of Lasix and this did not help. He has not been on any fluid restriction. Patient states that over the past 2 weeks he has had significant dyspnea on exertion and can only walk approximately 20 ft before he gets winded. Patient has had orthopnea and PND. He denied chest pain with exertion. The patient did see his PCP on 04/30/2023 and was diagnosed with iron deficient anemia and started on ferrous sulfate 325 mg 4 times a day. He was also referred to hematology. In reviewing the patient's laboratory evaluation from previously, he does have albuminuria 11/24/2022. Review of systems negative for fever and chills. Patient denied nausea vomiting. He states he occasionally gets diarrhea. He denied dark tarry stools or bloody stools. He denied cough. Related Data Home Medications Medication Instructions Recorded Confirmed multivitamin 1 tab PO DAILY 03/11/22 05/08/23 omega-3 fatty acids 1,000 mg PO TID 03/11/22 05/08/23 fluticasone propionate 50 1 spray intranasal BID PRN 05/05/23 05/08/23 mcg/actuation nasal Allergic Symptoms spray,suspension (Flonase Allergy Relief) insulin glargine 100 unit/mL (3 15 unit subcut BEDTIME 05/05/23 05/08/23 mL) subcutaneous pen (Basaglar KwikPen U-100 Insulin) Previous Rx's Medication Instructions Recorded blood-glucose meter (FreeStyle #1 ea 03/11/22 Lite Meter kit) metformin 1,000 mg tablet 1,000 mg PO BID #180 tabs 05/15/22 pen needle, diabetic 32 gauge x #120 ea 07/09/22 (BD Toshia 2nd Gen Pen Needle) blood sugar diagnostic (FreeStyle #100 ea 07/25/22 Lite Strips) lancets 28 gauge (FreeStyle #100 ea 02/11/23 Lancets) atorvastatin 40 mg tablet 40 mg PO BEDTIME 30 days #30 tabs 04/09/23 zinc acetate 25 mg (zinc) capsule 50 mg (2 x 25 mg (zinc)) PO BID 3 04/14/23 months #360 caps comp.stocking,knee,long,medium #12 ea 04/15/23 ferrous sulfate 325 mg (65 mg 325 mg PO TID 30 days #90 tabs 04/29/23 iron) tablet fenofibrate 54 mg tablet 54 mg PO DAILY 90 days #90 tabs 05/04/23 carvedilol 12.5 mg tablet 12.5 mg PO BID #60 tabs 05/06/23 empagliflozin 10 mg tablet 10 mg PO DAILY #30 tabs 05/06/23 furosemide 40 mg tablet 40 mg PO QAM #30 tabs 05/06/23 spironolactone 25 mg tablet 25 mg PO DAILY #30 tabs 05/06/23 valsartan 160 mg tablet 160 mg PO BID #60 tabs 05/06/23 Allergies Allergy/AdvReac Type Severity Reaction Status Date / Time No Known Allergies Allergy Verified 05/08/23 10:18 Review of Systems Review of Systems: Yes all other systems are reviewed and are negative [facility] Past Medical History [facility] Narrative: Past medical history: Diabetes mellitus, hypertension, hyperlipidemia, normocytic anemia. Social history: He denies tobacco use. He does smoke marijuana 1-2 joints per day. He states that he drinks on the weekends and drinks less than a 12 pack of beer when he drinks. Onset Date is defined in the Problem List Problems that require an onset date and time if occurred within 24 hrs of arrival to the ED Aortic Dissection and Rupture; Neurologic impairment; Cardiopulmonary Arrest; Endotracheal Intubation; Insertion or Replacement of Mechanical Circulatory Assist Device Medical History Postoperative visit Necrotizing subcutaneous infection Hypertension Type 2 diabetes Surgical History Status post incision and drainage [place] teeth removed Family History Family History Mother Diabetes Maternal Uncle Diabetes Sister Multiple sclerosis Social History Social History Household Members: Spouse Housing: House Do you presently have visiting nurse or other home services: No Alcohol intake: current Alcohol intake frequency: a few times a week Alcohol type: beer Patient Tobacco Use Status: Former Tobacco user Quit Date: 2009 e-Cigarette/Vaping Use: Never Used Substance Use Type: Marijuana service: No Current occupational status: employed Current occupation: [employer] Cognitive needs: No Hearing needs: No Vision needs: No Physical Exam Vital Signs: Vital Signs: Last Vital Signs Temp 98.1 F 05/06/23 08:00 Pulse 72 05/06/23 08:00 Resp 20 05/06/23 08:00 BP 156/78 H 05/06/23 08:00 Pulse Ox 96 05/06/23 08:00 O2 Del Method Room Air 05/06/23 08:00 BMI result Body Mass Index 40.5 Vital signs revealed an elevated blood pressure of 188/93. Exam General: Awake, alert in no distress Head: Normocephalic, atraumatic EENT: PERRL, Lids normal, sclera normal, conjunctiva normal, nose normal , ears normal, throat without erythema or exudates Neck: Supple, no adenopathy, no trachea midline or C-spine tenderness Lung: breath sounds symmetric, rales at the bases, wheezing at the end of expiration Chest: symmetric movement, nontender Heart: regular rate and rhythm, normal S1, S2 no murmurs or rubs Abdomen: soft, non-tender, nondistended, normal bowel sounds Rectal: Brown [id number] Back: no vertebral tenderness, no CVAT Extremities: no deformities, moves all extremities symmetrically, 1+ pitting edema bilaterally symmetric Skin: no rashes, no lesion, normal color and warmth Neuro: Awake, alert, oriented, normal speech, cranial nerves intact, moves all extremities symmetrically Psych: Pleasant, cooperative Medications Administered Discontinued Medications Generic Name Dose Route Start Last Admin Trade Name Freq PRN Reason Stop Dose Admin Atorvastatin Calcium 40 mg 05/05/23 21:00 05/05/23 20:31 Atorvastatin Calcium 40 Mg Tablet PO 40 mg BEDTIME NICHOLAS Administration Carvedilol 6.25 mg 05/05/23 21:00 05/06/23 09:37 Carvedilol 6.25 Mg Tablet PO 6.25 mg BID NICHOLAS Administration Protocol Fenofibrate 54 mg 05/05/23 10:00 05/06/23 09:37 Fenofibrate 54 Mg Tablet PO 54 mg DAILY NICHOLAS Administration Ferrous Sulfate 324 mg 05/05/23 10:15 05/06/23 09:37 Ferrous Sulfate 324 Mg Tablet.Dr PO 324 mg TID NICHOLAS Administration Furosemide 60 mg 05/05/23 08:27 05/05/23 08:55 Furosemide 100 Mg/10 Ml Vial IVPUSH 05/05/23 08:28 60 mg ONCE ONE Administration Protocol Furosemide 40 mg 05/05/23 18:00 05/06/23 09:38 Furosemide 40 Mg/4 Ml Vial IVPUSH 40 mg BID@0900,1800 [facility] Administration Protocol Hydralazine HCl 10 mg 05/05/23 17:36 05/05/23 17:44 Hydralazine Hcl 20 Mg/Ml Vial IVPUSH 05/05/23 17:37 10 mg ONCE ONE Administration Protocol Insulin Glargine 15 unit 05/05/23 21:00 05/05/23 20:31 Insulin Glargine,Hum.Rec.Anlog 100 Unit/Ml 10 Ml Vial SUBCUT 15 unit BEDTIME [facility] Administration Insulin Human Lispro 0 unit 05/05/23 11:30 05/06/23 09:36 Insulin Lispro 100 Unit/Ml 3 Ml Vial SUBCUT Not Given QIDACHS [facility] Protocol Losartan Potassium 50 mg 05/05/23 10:00 05/05/23 11:23 Losartan Potassium 50 Mg Tablet PO 50 mg BID [facility] Administration Protocol Metoprolol Tartrate 75 mg 05/05/23 10:00 05/05/23 11:23 Metoprolol Tartrate 25 Mg Tablet PO 75 mg BID [facility] Administration Protocol Multivitamins/Vitamin C 1 tab 05/05/23 10:00 05/06/23 09:37 Multivitamin Tablet PO 1 tab DAILY [facility] Administration Sacubitril/Valsartan 1 tab 05/05/23 13:20 05/06/23 09:37 Sacubitril/Valsartan 49/51 1 Tab Tablet PO 1 tab BID [facility] Administration Protocol Sodium Chloride 3 ml 05/05/23 16:00 05/06/23 09:38 0.9 % Sodium Chloride Flush 3 Ml Syringe IVFLUSH 3 ml QSHIFT [facility] Administration Zinc Sulfate 50 mg 05/05/23 10:15 05/05/23 13:04 Zinc Sulfate 220 Mg Capsule PO Not Given BID [facility] Zinc Sulfate 220 mg 05/05/23 12:15 05/06/23 09:37 Zinc Sulfate 220 Mg Capsule PO 220 mg BID NICHOLAS Administration Medical Decision Making Medical Decision Making [facility] Narrative: 52-year-old male with history diabetes mellitus, hypertension, hyperlipidemia, bilateral peripheral edema who presents emergency department for evaluation of dyspnea on exertion wheezing and shortness of breath x2 weeks. Patient states that he is had peripheral edema for approximately 6-9 months which is gotten progressively worse. He also has a previous study demonstrating albuminuria. He was recently diagnosed with iron deficient anemia on 04/30/2023 and started on ferrous sulfate 3 times a day. Patient presents with significant dyspnea on exertion at around 20 ft without chest pain, orthopnea, PND and significant peripheral edema. Patient does have rales and wheezing on his lung exam. Rectal exam revealed brown stool which is Hemoccult negative. Following evaluation was ordered: CBC, CMP, troponin x2, urinalysis, PTT, TSH with reflex T4, COVID-19, influenza, RSV, BNP, EKG, chest x-ray one view Patient was treated with furosemide 60 mg IV. 08:27 My interpretation patient's laboratory evaluation is as follows: Normocytic anemia with an H&H of 9.1 and 28 with an MCV of 91-this is chronic. BUN is elevated at 26 with a normal creatinine of 1.35. Glucose was elevated 192. Total protein was normal at 6.8, albumin was low at 3.2. LFTs were normal. Initial troponin was 7.2-repeat is pending. BNP is pending. Patient's 12 EKG was unremarkable. Chest x-ray is concerning for pulmonary edema Given the patient's progressive dyspnea on exertion, shortness of breath, orthopnea and PND, believe the patient will need to be admitted to be diuresed and to further workup. Differential Diagnosis Differential Diagnoses: The differential diagnosis associated with the presentation includes Differential diagnosis includes was not limited to myocardial infarction, myocardial ischemia, pneumonia, COVID-19, influenza, RSV, cardiomyopathy, nephropathy Admission/Observation Consideration of admission/observation: Escalation of care including admission/observation considered Consult Healthcare Provider Management of the patient was discussed with: Hospitalist Lab Data [facility] Lab Attestation statement: I reviewed the patient's lab results. 05/06/23 06:38 05/06/23 06:38 Labs: Lab Results 05/04/23 05/04/23 05/05/23 Range/Units 22:00 Unknown 08:21 WBC 9.6 (4.8-10.8) X10*3/uL RBC 3.07 L (4.60-5.80) X10*6/uL Hgb 9.1 L (14.0-18.0) g/dl Hct 28.1 L (42.0-52.0) % MCV 91.5 (80.0-98.0) fL MCH 29.6 (27.0-33.0) pg MCHC 32.4 (31.0-36.0) g/dl RDW 12.8 (11.0-16.0) % Plt Count 230 (160-400) X10*3/uL MPV 11.8 (9.4-12.4) fL Immature Gran % (Auto) 0.5 H (0.0-0.4) % Neut % (Auto) 68.1 (45-73) % Lymph % (Auto) 19.5 L (20-40) % [place] % (Auto) 7.1 (2-11) % Eos % (Auto) 4.2 H (0-4) % Baso % (Auto) 0.6 (0-2) % Lymph # (Auto) 1.9 (1.2-4.9) X10*3/uL [place] # (Auto) 0.7 (0.1-1.2) X10*3/uL Eos # (Auto) 0.4 (0.0-0.4) X10*3/uL Baso # (Auto) 0.1 (0.0-0.2) X10*3/uL Abs Immat Gran (auto) 0.05 H (0.00-0.03) X10*3/uL Absolute Neuts (auto) 6.6 (2.0-8.3) x10*3/uL Absolute Nucleated RBC 0.000 (0.0-0.012) X10*3/uL Nucleated RBC % (auto) 0.0 (0.0-0.2) /100WBC APTT 33.6 (26.0-36.4) SEC Sodium 135 (135-145) mmol/L Potassium 4.8 (3.3-5.1) mmol/L Chloride 108 (96-108) mmol/L Carbon Dioxide 22 (22-29) mmol/L Anion Gap 10 L (12-20) BUN 26 H (9-16) mg/dL Creatinine 1.35 (0.5-1.4) mg/dL Estim Creat Clear Calc 82.7 Estimated GFR 56 POC Glucose (60-115) mg/dL Random Glucose 192 H (60-115) mg/dL Estimat Average Glucose 128 mg/dL Hemoglobin A1c % 6.1 H (<6.0) % Calcium 9.0 (8.4-10.2) mg/dL Total Bilirubin 0.3 (0.0-1.0) mg/dL AST 24 (5-37) U/L ALT 24 (0-40) U/L Alkaline Phosphatase 117 (39-117) U/L Troponin I High Sens 7.2 12.4 D (<3.5-35.0) ng/L B-Natriuretic Peptide 491 H (<100) pg/mL Total Protein 6.8 (6.5-8.0) g/dL Albumin 3.2 L (3.5-5.0) g/dL TSH 2.93 (0.32-4.0) uIU/mL Urine Color Urine Appearance Urine pH (5.0-9.0) Ur Specific [place] (1.005-1.025) Urine Protein (Neg-Trace) mg/dL Urine Glucose (UA) (Negative) mg/dL Urine Ketones (Negative) mg/dL Urine Blood (Negative) Urine Nitrite (Negative) Ur Leukocyte Esterase (Negative) Urine RBC (0-2) /HPF Urine WBC (0-5) /HPF Ur Squamous Epith Cells (0-2) /HPF Urine Bacteria (None Seen) Hyaline Casts (0-2) /LPF Stool Occult Blood (NEGATIVE) Influenza Type A (PCR) NEGATIVE (Negative) Influenza Type B (PCR) NEGATIVE (Negative) RSV RNA Qual (PCR) NEGATIVE (Negative) SARS-CoV-2 RNA (RT-PCR) NEGATIVE (Negative) 05/05/23 05/05/23 05/05/23 Range/Units 08:33 08:42 12:01 WBC (4.8-10.8) X10*3/uL RBC (4.60-5.80) X10*6/uL Hgb (14.0-18.0) g/dl Hct (42.0-52.0) % MCV (80.0-98.0) fL MCH (27.0-33.0) pg MCHC (31.0-36.0) g/dl RDW (11.0-16.0) % Plt Count (160-400) X10*3/uL MPV (9.4-12.4) fL Immature Gran % (Auto) (0.0-0.4) % Neut % (Auto) (45-73) % Lymph % (Auto) (20-40) % [place] % (Auto) (2-11) % Eos % (Auto) (0-4) % Baso % (Auto) (0-2) % Lymph # (Auto) (1.2-4.9) X10*3/uL [place] # (Auto) (0.1-1.2) X10*3/uL Eos # (Auto) (0.0-0.4) X10*3/uL Baso # (Auto) (0.0-0.2) X10*3/uL Abs Immat Gran (auto) (0.00-0.03) X10*3/uL Absolute Neuts (auto) (2.0-8.3) x10*3/uL Absolute Nucleated RBC (0.0-0.012) X10*3/uL Nucleated RBC % (auto) (0.0-0.2) /100WBC APTT (26.0-36.4) SEC Sodium (135-145) mmol/L Potassium (3.3-5.1) mmol/L Chloride (96-108) mmol/L Carbon Dioxide (22-29) mmol/L Anion Gap (12-20) BUN (9-16) mg/dL Creatinine (0.5-1.4) mg/dL Estim Creat Clear Calc Estimated GFR POC Glucose 176 H (60-115) mg/dL Random Glucose (60-115) mg/dL Estimat Average Glucose mg/dL Hemoglobin A1c % (<6.0) % Calcium (8.4-10.2) mg/dL Total Bilirubin (0.0-1.0) mg/dL AST (5-37) U/L ALT (0-40) U/L Alkaline Phosphatase (39-117) U/L Troponin I High Sens (<3.5-35.0) ng/L B-Natriuretic Peptide (<100) pg/mL Total Protein (6.5-8.0) g/dL Albumin (3.5-5.0) g/dL TSH (0.32-4.0) uIU/mL Urine Color Yellow Urine Appearance Clear Urine pH 5.5 (5.0-9.0) Ur Specific [place] 1.020 (1.005-1.025) Urine Protein >=1000 (4+) H (Neg-Trace) mg/dL Urine Glucose (UA) Negative (Negative) mg/dL Urine Ketones Negative (Negative) mg/dL Urine Blood Small (1+) H (Negative) Urine Nitrite Negative (Negative) Ur Leukocyte Esterase Negative (Negative) Urine RBC 3-5 H (0-2) /HPF Urine WBC 0-5 (0-5) /HPF Ur Squamous Epith Cells 0-2 (0-2) /HPF Urine Bacteria None Seen (None Seen) Hyaline Casts 3-5 (0-2) /LPF Stool Occult Blood NEGATIVE (NEGATIVE) Influenza Type A (PCR) (Negative) Influenza Type B (PCR) (Negative) RSV RNA Qual (PCR) (Negative) SARS-CoV-2 RNA (RT-PCR) (Negative) Independent Interpretation I performed an independent interpretation of an: Plain X-Ray Interpretation: My interpretation patient's one-view chest x-ray: Increased interstitial markings bilaterally consistent with pulmonary edema My independent interpretation patient's 12 EKG done on 05/04/2023 at 21:53 hours is as follows: Normal sinus rhythm with a rate of 94, normal ID interval, QRS duration, QTC interval, no ST segment elevation, no ST segment depression, no significant T-wave abnormalities, no PACs, no PVCs-this is a normal EKG. Radiology Impression Discussion of test interpretation with radiology: I have reviewed the radiologist's reading. Radiologist Impression: XR chest 1V IMPRESSION: 1. Continued increased of interstitial opacities. 2. Slight elevation the right hemidiaphragm. 3. Bibasilar atelectasis. 4. Prominence of the pulmonary vasculature. Dictated By: Arnie Sanchez MD Chronic Conditions Patient?s care impacted by: Hypertension Critical Care Time Critical Care Time Critical Care Time: Yes Total Critical Care Time: 30 Attestation: Critical Care: The patient was critically ill with a high probability of imminent or life threatening deterioration. I spent greater than 30 minutes of discontinuous time evaluating the patient,delivering critical care at the bedside, discussing and evaluating pertinent data with consultants. Critical care time does not include time spent performing separately billable procedures or teaching. Total time spent performing critical care was 30 minutes. Discharge Plan Discharge Clinical Impression: Pulmonary edema, Edema, peripheral, Dyspnea on minimal exertion Patient Disposition: Admitted As Inpatient Interventions: Admission Worksheet (ED) Last Done: 05/05/23 16:38 Discharge Date/Time: 05/05/23 17:31
--- NOTE | 2023-05-05 08:25 | PC.NURSE ---
Pt is a&ox4 coming in for sob x2 weeks that has gotten worse yesterday. Reports sob with exertion and lying flat. pitting edema on bilateral lower extremities. Pt speaking in clear full sentences. Respirations even and unlabored.
[2023-05-05 08:34] LABS: Partial Thromboplastin Time 33.6 SEC (26.0-36.4)
[2023-05-05 08:39] LABS: Appearance Urine Clear; Color Urine Yellow; Glucose Urine UA Negative (Negative); Leukocyte Esterase Urine Negative (Negative); Nitrite Urine Negative (Negative); PH 5.5 (5.0-9.0); UMIC TRIGGER UACC YES; Urine Blood Small (1+) (Negative); Urine Ketones Negative (Negative); Urine Protein >=1000 (4+) mg/dL (Neg-Trace)
[2023-05-05 08:50] LABS: OBS Int Ctl Valid YES; OBS1 NEGATIVE (NEGATIVE)
[2023-05-05 08:52] LABS: B Type Natriuretic Peptide 491 pg/mL (<100)
[2023-05-05 08:53] LABS: Bacteria Urine None Seen (None Seen); Squamous Epithelial Cell Urine 0-2 /HPF (0-2); WBC Urine 0-5 /HPF (0-5)
[2023-05-05 08:54] LABS: Troponin-I High Sensitivity 12.4 ng/L (<3.5-35.0)
[2023-05-05] MEDS: Furosemide 100 MG/10 ML VIAL 60 MG IVPUSH (08:55)
[2023-05-05 09:09] LABS: TSH reflex Free T4 2.93 uIU/mL (0.32-4.0)
--- NOTE | 2023-05-05 09:16 | PHA.MEDREC ---
Pharmacy Consult ? Medication Reconciliation Pharmacy has completed the medication reconciliation. Patient confirmed all meds.
[2023-05-05 10:43] LABS: Estimated Average Glucose 128 mg/dL; Hemoglobin A1c % 6.1 % (<6.0)
--- NOTE | 2023-05-05 11:18 | P.HPHOSP_ITS ---
History of Present Illness Date of Service: 05/05/23 <Annette Napoles - Last Filed: 05/05/23 12:07> Chief Complaint: Shortness of breath x 2 weeks <Annette Napoles - Last Filed: 05/05/23 12:07> River is a 52 yo M with past medical history of anemia, diabetes mellitus, hypertension, hyperlipidemia who presents today complaining of worsening shortness of breath for 2 weeks. States has had some SOB for several months but has acutely worsened over past several weeks. Has fatigue and SOB with walking short distances. Describes it as unable to get enough air. Reports condition is constant; made worse by lying down. Wakes in the night gasping for air. No hx of tobacco use, though he does smoke marijuana. Reports he was seen by PCP on 04/09/23 for edema of lower extremities and SOB and was rx'd 5 day course of furosemide. States that SOB and edema did not improve but did not worsen while on this regimen. Follow up eval by PCP on 04/30/23 found normocytic anemia; referral to hematology. Never had colonoscopy; no family hx of colon cancer. PCP also noted on 04/30/23 visit that patient had gained 11 lbs from 04/09/23. ER Course: CBC shows normocytic anemia with H&H of 9.1 and 28. CMP with elevated BUN of 26, glucose 192, and low albumin of 3.2 BNP 491 elevated from 211 on 04/13/23 CXR concerning for pulmonary edema UA with 4+ protein and RBC+ Troponin 7.2 on 05/04/23 and 12.4 on 05/05/23; normal sinus rhythm on ECG Stool occult blood, PTT, TSH, Flu/COVID/RSV negative. Patient received furosemide 60mg IV push <Annette Napoles - Last Filed: 05/05/23 12:07> River is a 52 yo M with past medical history of anemia, diabetes mellitus, hypertension, hyperlipidemia who presents today complaining of worsening shortness of breath for 2 weeks. States has had some SOB for several months but has acutely worsened over past several weeks. Has fatigue and SOB with walking short distances. Describes it as unable to get enough air. Reports condition is constant; made worse by lying down. Wakes in the night gasping for air. No hx of tobacco use, though he does smoke marijuana. Reports he was seen by PCP on 04/09/23 for edema of lower extremities and SOB and was rx'd 5 day course of furosemide. States that SOB and edema did not improve but did not worsen while on this regimen. Follow up eval by PCP on 04/30/23 found normocytic anemia; referral to hematology. Never had colonoscopy; no family hx of colon cancer. PCP also noted on 04/30/23 visit that patient had gained 11 lbs from 04/09/23. ER Course: CBC shows normocytic anemia with H&H of 9.1 and 28. CMP with elevated BUN of 26, glucose 192, and low albumin of 3.2 BNP 491 elevated from 211 on 04/13/23 CXR concerning for pulmonary edema UA with 4+ protein and RBC+ Troponin 7.2 on 05/04/23 and 12.4 on 05/05/23; normal sinus rhythm on ECG Stool occult blood, PTT, TSH, Flu/COVID/RSV negative. Patient received furosemide 60mg IV push with good effect <Jose Elias Lane MD - Last Filed: 05/30/23 17:58> Review of Systems 2 Review of Systems: General: No fevers, malaise, unintentional weight loss Cardiovascular: No chest pain, palpitations, +leg edema Respiratory: +wheezing GI: No abdominal pain, nausea, vomiting, diarrhea, constipation : No dysuria <Annette Napoles - Last Filed: 05/05/23 12:07> [facility] Medical History: Medical History Postoperative visit Necrotizing subcutaneous infection Hypertension Type 2 diabetes <Annette Napoles - Last Filed: 05/05/23 12:07> Family History: Family History (Updated 05/25/23 @ 11:51 by Saranya Miller MA) Mother Diabetes Maternal Uncle Diabetes Sister Multiple sclerosis <Annette Napoles - Last Filed: 05/05/23 12:07> Surgical History: Surgical History Status post incision and drainage [place] teeth removed <Annette Napoles - Last Filed: 05/05/23 12:07> Social History: Social History Household Members: Spouse Housing: House Do you presently have visiting nurse or other home services: No Alcohol intake: current Alcohol intake frequency: a few times a week Alcohol type: beer Patient Tobacco Use Status: Former Tobacco user Quit Date: 2009 e-Cigarette/Vaping Use: Never Used Substance Use Type: Marijuana service: No Current occupational status: employed Current occupation: [employer] Cognitive needs: No Hearing needs: No Vision needs: No <Annette Napoles - Last Filed: 05/05/23 12:07> Meds Allergies/Adverse reactions: Allergies Allergy/AdvReac Type Severity Reaction Status Date / Time No Known Allergies Allergy Verified 05/25/23 12:10 <Annette Napoles - Last Filed: 05/05/23 12:07> Active Medications: Current Medications Atorvastatin Calcium (Atorvastatin Calcium 40 Mg Tablet) 40 mg PO BEDTIME NICHOLAS Dextrose (Dextrose 50 % 25 Gm/50 Ml Syringe) 25 gm IVPUSH Q15M PRN; Protocol PRN Reason: per Hypoglycemia Standing Ord. Fenofibrate (Fenofibrate 54 Mg Tablet) 54 mg PO DAILY NICHOLAS Ferrous Sulfate (Ferrous Sulfate 324 Mg Tablet.Dr) 324 mg PO TID NICHOLAS Fluticasone Propionate (Fluticasone Propionate Nasal 16 Gm [place]) 1 spray NOSTRIL-B BID PRN PRN Reason: Allergic Symptoms Glucose (Glucose Gel 15 Gm Gel..Gram.) 15 gm PO Q15M PRN; Protocol PRN Reason: per Hypoglycemia Standing Ord. Insulin Glargine (Insulin Glargine,Hum.Rec.Anlog 100 Unit/Ml 10 Ml Vial) 15 unit SUBCUT BEDTIME NICHOLAS Insulin Human Lispro (Insulin Lispro 100 Unit/Ml 3 Ml Vial) 0 unit SUBCUT QIDACHS NICHOLAS; Protocol Losartan Potassium (Losartan Potassium 50 Mg Tablet) 50 mg PO BID NICHOLAS; Protocol Metoprolol Tartrate (Metoprolol Tartrate 25 Mg Tablet) 75 mg PO BID NICHOLAS; Protocol Multivitamins/Vitamin C (Multivitamin Tablet) 1 tab PO DAILY NICHOLSA Zinc Sulfate (Zinc Sulfate 220 Mg Capsule) 50 mg PO BID NICHOLAS <Annette Napoles - Last Filed: 05/05/23 12:07> Home medications: Home Medications Medication Instructions Recorded Confirmed Last Taken Type multivitamin 1 tab PO DAILY 03/11/22 05/25/23 05/04/23 History omega-3 fatty acids 1,000 mg PO TID 03/11/22 05/25/23 05/04/23 History fluticasone propionate 50 1 spray intranasal BID PRN 05/05/23 05/25/23 05/04/23 History mcg/actuation nasal Allergic Symptoms spray,suspension (Flonase Allergy Relief) insulin glargine 100 unit/mL (3 15 unit subcut BEDTIME 05/05/23 05/25/23 05/04/23 History mL) subcutaneous pen (Basaglar KwikPen U-100 Insulin) spironolactone 25 mg tablet 12.5 mg PO DAILY 05/25/23 05/25/23 Unknown History valsartan 160 mg tablet 80 mg PO BID 05/25/23 05/25/23 Unknown History <Annette Napoles - Last Filed: 05/05/23 12:07> Physical Exam 2 Vital Signs and Narrative: Vital Signs: Last Vital Signs Temp 97.8 F 05/05/23 08:00 Pulse 83 05/05/23 08:00 Resp 18 05/05/23 08:00 BP 188/86 H 05/05/23 08:00 Pulse Ox 98 05/05/23 08:00 O2 Del Method Room Air 05/05/23 08:00 BMI result Body Mass Index 40.5 <Annette Napoles - Last Filed: 05/05/23 12:07> Constitutional - A&O x 3, No apparent distress Cardiovascular - S1S2, RRR, 2+ pitting edema LE bilaterally, pulses 2+, no JVD, no hepatojugular reflex Respiratory - Normal respiratory effort; Rales noted in lower lung schuler bilaterally; no rhonchi or wheezing. Abdomen - soft, non-tender, non-distended Skin - Warm/Dry <Annette Napoles - Last Filed: 05/05/23 12:07> Results Labs CBC and Chem 7: 05/06/23 06:38 05/06/23 06:38 <Annette Napoles - Last Filed: 05/05/23 12:07> Labs: Laboratory Results - last 24 hr 05/04/23 05/04/2324 22:00 Unknown 08:21 MCV 91.5 MCH 29.6 MCHC 32.4 RDW 12.8 Plt Count 230 MPV 11.8 Immature Gran % (Auto) 0.5 H Neut % (Auto) 68.1 Lymph % (Auto) 19.5 L [place] % (Auto) 7.1 Eos % (Auto) 4.2 H Baso % (Auto) 0.6 Lymph # (Auto) 1.9 [place] # (Auto) 0.7 Eos # (Auto) 0.4 Baso # (Auto) 0.1 Abs Immat Gran (auto) 0.05 H Absolute Neuts (auto) 6.6 Absolute Nucleated RBC 0.000 Nucleated RBC % (auto) 0.0 APTT 33.6 Anion Gap 10 L Estim Creat Clear Calc 82.7 Estimated GFR 56 Random Glucose 192 H Estimat Average Glucose 128 Hemoglobin A1c % 6.1 H Calcium 9.0 Total Bilirubin 0.3 AST 24 ALT 24 Alkaline Phosphatase 117 B-Natriuretic Peptide 491 H Total Protein 6.8 Albumin 3.2 L TSH 2.93 Urine Color Urine Appearance Urine pH Ur Specific [place] Urine Protein Urine Glucose (UA) Urine Ketones Urine Blood Urine Nitrite Ur Leukocyte Esterase Urine RBC Urine WBC Ur Squamous Epith Cells Urine Bacteria Hyaline Casts Stool Occult Blood Influenza Type A (PCR) NEGATIVE Influenza Type B (PCR) NEGATIVE RSV RNA Qual (PCR) NEGATIVE SARS-CoV-2 RNA (RT-PCR) NEGATIVE 05/05/23 05/05/23 08:33 08:42 MCV MCH MCHC RDW Plt Count MPV Immature Gran % (Auto) Neut % (Auto) Lymph % (Auto) [place] % (Auto) Eos % (Auto) Baso % (Auto) Lymph # (Auto) [place] # (Auto) Eos # (Auto) Baso # (Auto) Abs Immat Gran (auto) Absolute Neuts (auto) Absolute Nucleated RBC Nucleated RBC % (auto) APTT Anion Gap Estim Creat Clear Calc Estimated GFR Random Glucose Estimat Average Glucose Hemoglobin A1c % Calcium Total Bilirubin AST ALT Alkaline Phosphatase B-Natriuretic Peptide Total Protein Albumin TSH Urine Color Yellow Urine Appearance Clear Urine pH 5.5 Ur Specific [place] 1.020 Urine Protein >=1000 (4+) H Urine Glucose (UA) Negative Urine Ketones Negative Urine Blood Small (1+) H Urine Nitrite Negative Ur Leukocyte Esterase Negative Urine RBC 3-5 H Urine WBC 0-5 Ur Squamous Epith Cells 0-2 Urine Bacteria None Seen Hyaline Casts 3-5 Stool Occult Blood NEGATIVE Influenza Type A (PCR) Influenza Type B (PCR) RSV RNA Qual (PCR) SARS-CoV-2 RNA (RT-PCR) <Annette Napoles - Last Filed: 05/05/23 12:07> Imaging Radiologist's Impressions: Impressions Chest X-Ray 05/04/23 22:05 IMPRESSION: 1. Continued increased of interstitial opacities. 2. Slight elevation the right hemidiaphragm. 3. Bibasilar atelectasis. 4. Prominence of the pulmonary vasculature. <Annette Napoles - Last Filed: 05/05/23 12:07> Assessment and Plan (1) Dyspnea on minimal exertion: Status: Resolved <Annette Napoles - Last Filed: 05/05/23 12:07> (2) Edema, peripheral: Status: Resolved <Annette Napoles - Last Filed: 05/05/23 12:07> (3) CHF (congestive heart failure): Status: Acute <Annette Napoles - Last Filed: 05/05/23 12:07> 52 yo M with past medical history of normocytic anemia, diabetes mellitus, hypertension, hyperlipidemia presented to ED today for worsening SOB. CXR concerning for pulmonary edema, elevated BNP of 491, and normocytic anemia with H&H of 9.1 and 28. ECG and troponins reassuring for acute coronary pathology. Lower lung field rales and pitting edema noted on PE. Furosemide 60 IV push received in ED @ 0855. Dyspnea on minimal exertion -- Echo for new CHF. Continue furosemide 60mg IV xx. Nitroprusside or nitroglycerine?? I/Os. Consult cardiology for new CHF diagnosis? Edema -- Compression stockings, elevate LE and ambulate as tolerated. Normocytic anemia -- continue home ferrous sulfate. Recommend colonoscopy outpatient. Proteinuria? Diabetes mellitus -- continue home insulin glargine, metformin HTN -- continue home losartan and metoprolol? Hyperlipidemia -- continue home atorvastatin and fenofibrate DVT prophylaxis Lovenox <Annette Napoles - Last Filed: 05/05/23 12:07> 52 yo M with past medical history of normocytic anemia, diabetes mellitus, hypertension, hyperlipidemia presented to ED today for worsening SOB. CXR concerning for pulmonary edema, elevated BNP of 491, and normocytic anemia with H&H of 9.1 and 28. ECG and troponins reassuring for acute coronary pathology. Lower lung field rales and pitting edema noted on PE. Furosemide 60 IV push received in ED @ 0855. Acute unspecfied Heart failure, but HFrEF with Dyspnea on minimal exertion - Lasix 40 IV bid, monitor I/O, salt intake, weight, Monitor BMP Echo Cardiology eval Chronic Normocytic anemia with acute drop but negative FOBT, monitor, continue Iron sulfate. 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, continue Losartan, outpatient Nephro f/u HTN -- continue home losartan, Hyperlipidemia -- continue home atorvastatin and fenofibrate DVT prophylaxis Lovenox Admit for at least 2 midnight for treatment and work up of acute heart failure with IV diuretics and monitoring electrolytes and expert evaluation <Jose Elias Lane MD - Last Filed: 05/30/23 17:58> Quality Stroke Does the patient have a stroke diagnosis?: No <Jose Elias Lane MD - Last Filed: 05/30/23 17:58> VTE Prior VTE?: No <Jose Elias Lane MD - Last Filed: 05/30/23 17:58> VTE Risk Level:: Medical - moderate - high <Jose Elias Lane MD - Last Filed: 05/30/23 17:58> VTE Device Contraindication: Treatment Not Indicated <Jose Elias Lane MD - Last Filed: 05/30/23 17:58> VTE Drug Contraindication: N/A - Med Ordered <Jose Elias Lane MD - Last Filed: 05/30/23 17:58>
[2023-05-05] MEDS: Ferrous Sulfate 324 MG TABLET.DR PO ×3 (11:23→20:31)
[2023-05-05] MEDS: Metoprolol Tartrate 25 MG TABLET 75 MG PO (11:23)
[2023-05-05] MEDS: Multivitamin TABLET 1 TAB PO (11:23)
[2023-05-05] MEDS: Losartan Potassium 50 MG TABLET PO (11:23)
[2023-05-05 12:04] LABS: Glucose, Whole Blood 176 mg/dL (60-115)
[2023-05-05] MEDS: Zinc Sulfate 220 MG CAPSULE PO ×2 (12:09→20:31)
[2023-05-05] MEDS: Fenofibrate 54 MG TABLET PO (12:09)
[2023-05-05] MEDS: Insulin Lispro 100 UNIT/ML 3 ML VIAL SUBCUT ×3 (12:09→20:31)
--- NOTE | 2023-05-05 13:19 | P.CONCA_ITS ---
History of Present Illness History of Present Illness Date of Service: 05/05/23 Requesting physician: Jose [facility] Consult reason: congestive heart failure Chief complaint: Acute heart failure Narrative: I was consulted to see River in cardiology consultation today for progressive symptoms suggestive congestive heart failure. He is a pleasant 52-year-old male with diagnosed diabetes about 2 years ago when he presented with perineal abscess, also diagnosed with hypertension at that point in time and hyperlipidemia. Since then patient has been managed outside but says takes his medication goal blood pressure is not been adequately control in so has his diabetes been. No prior cardiac history. Denies any prior myocardial infarction or vascular events. Came to the hospital as over the last 2 months he has noticed his legs have been gradually getting swollen and then he has been noticing at his work that he has been getting generally more fatigued over the last 2 weeks he has been getting progressively more more short of breath with exertional wheezing. Last night he got severely short of breath including at rest and was not able to lay down or sit up and was very short of breath and wheezing and therefore decided to come to the emergency room. In the emergency room when he came in was noted to be in congestive heart failure with elevated BNP, fluid overload as well as chest x-ray findings. Patient was then given Lasix and since then has urinated a lot and in his breathing is improved and is not having any wheezing at rest. He denies any exertional chest discomfort. Denies any prolonged palpitation irregular heartbeat. Denies any recent viral syndrome. Denies any drug use [id number] medications. He denies any fever or chills. His says that he snores a lot although has no official diagnosis of obstructive sleep apnea Review of Systems 2 Constitutional: Constitutional: Reports lethargy, Reports snoring and Reports weakness Eyes: Eyes: Reports no additional eye complaints Cardiovascular: Cardiovascular: Denies chest pain, Denies rapid heart rate, Reports leg edema, Denies lightheadedness, Denies Loss of Consciousness, Reports dyspnea on exertion and Reports orthopnea Respiratory: Respiratory: Reports dyspnea on exertion, Reports snoring and Reports wheezing Gastrointestinal: Gastrointestinal: Reports no additional gastrointestinal complaints Genitourinary: Genitourinary: Reports no additional male genitourinary complaints Musculoskeletal: Musculoskeletal: Reports no additional musculoskeletal complaints Neurologic: Reports system reviewed and no additional complaints, except as documented and Reports weakness Psychiatric: Psychiatric: Reports no additional psychiatric complaints Endocrine: Endocrine: Reports no additional endocrine complaints Hematologic/Lymphatic: Hematologic/Lymphatic: Reports no additional hematologic/lymphatic complaints Allergic/Immunologic: Allergic/Immunologic: Reports no additional allergic/immunologic complaints and Reports wheezing PMFSH Past Medical History Medical History Postoperative visit Necrotizing subcutaneous infection Hypertension Type 2 diabetes Family History Family History Mother Diabetes Maternal Uncle Diabetes Sister Multiple sclerosis Surgical History Surgical History Status post incision and drainage [place] teeth removed Social History Social History Household Members: Significant Other and Children Housing: House Do you presently have visiting nurse or other home services: No Alcohol intake: current Alcohol intake frequency: a few times a week Alcohol type: beer Patient Tobacco Use Status: Former Tobacco user Quit Date: 2009 Smoked in Last 30 Days: Yes e-Cigarette/Vaping Use: Never Used Use of substances other than those prescribed or required for medical reasons: Yes Substance Use Type: Marijuana Advance Directives: No Advance Directives Information Provided: No service: No Current occupational status: employed Current occupation: [employer] Cognitive needs: No Hearing needs: No Vision needs: No Meds Allergies Allergy/AdvReac Type Severity Reaction Status Date / Time No Known Allergies Allergy Verified 05/04/23 21:35 Active Medications: Current Medications Acetaminophen (Acetaminophen 325 Mg Tablet) 650 mg PO Q6H PRN PRN Reason: Pain, Mild (Pain Scale 1-3) Atorvastatin Calcium (Atorvastatin Calcium 40 Mg Tablet) 40 mg PO BEDTIME [facility] Dextrose (Dextrose 50 % 25 Gm/50 Ml Syringe) 25 gm IVPUSH Q15M PRN; Protocol PRN Reason: per Hypoglycemia Standing Ord. Fenofibrate (Fenofibrate 54 Mg Tablet) 54 mg PO DAILY [facility] Last Admin: 05/05/23 12:09 Dose: 54 mg Ferrous Sulfate (Ferrous Sulfate 324 Mg Tablet.) 324 mg PO TID [facility] Last Admin: 05/05/23 11:23 Dose: 324 mg Fluticasone Propionate (Fluticasone Propionate Nasal 16 Gm [place]) 1 spray NOSTRIL-B BID PRN PRN Reason: Allergic Symptoms Glucose (Glucose Gel 15 Gm Gel..Gram.) 15 gm PO Q15M PRN; Protocol PRN Reason: per Hypoglycemia Standing Ord. Insulin Glargine (Insulin Glargine,Hum.Rec.Anlog 100 Unit/Ml 10 Ml Vial) 15 unit SUBCUT BEDTIME [facility] Insulin Human Lispro (Insulin Lispro 100 Unit/Ml 3 Ml Vial) 0 unit SUBCUT QIDACHS [facility]; Protocol Last Admin: 05/05/23 12:09 Dose: 2 unit Losartan Potassium (Losartan Potassium 50 Mg Tablet) 50 mg PO BID [facility]; Protocol Last Admin: 05/05/23 11:23 Dose: 50 mg Melatonin (Melatonin 3 Mg Tablet) 6 mg PO BEDTIME PRN PRN Reason: Insomnia Metoprolol Tartrate (Metoprolol Tartrate 25 Mg Tablet) 75 mg PO BID [facility]; Protocol Last Admin: 05/05/23 11:23 Dose: 75 mg Multivitamins/Vitamin C (Multivitamin Tablet) 1 tab PO DAILY [facility] Last Admin: 05/05/23 11:23 Dose: 1 tab Ondansetron HCl (Ondansetron Hcl 4 Mg/2 Ml Vial) 4 mg IVPUSH Q8H PRN PRN Reason: Nausea and Vomiting Sodium Chloride (0.9 % Sodium Chloride Flush 3 Ml Syringe) 3 ml IVFLUSH QSHIFT [facility] Zinc Sulfate (Zinc Sulfate 220 Mg Capsule) 220 mg PO BID [facility] Last Admin: 05/05/23 12:09 Dose: 220 mg Home Medications Medication Instructions Recorded Confirmed Last Taken Type multivitamin 1 tab PO DAILY 03/11/22 05/05/23 05/04/23 History omega-3 fatty acids 1,000 mg PO TID 03/11/22 05/05/23 05/04/23 History fluticasone propionate 50 1 spray intranasal BID PRN 05/05/23 05/05/23 05/04/23 History mcg/actuation nasal Allergic Symptoms spray,suspension (Flonase Allergy Relief) insulin glargine 100 unit/mL (3 15 unit subcut BEDTIME 05/05/23 05/05/23 05/04/23 History mL) subcutaneous pen (Basaglar KwikPen U-100 Insulin) Physical Exam 2 Vital Signs: Vital Signs: Last Vital Signs Temp 97.8 F 05/05/23 08:00 Pulse 79 05/05/23 11:25 Resp 18 05/05/23 11:25 BP 163/83 H 05/05/23 11:25 Pulse Ox 96 05/05/23 11:25 O2 Del Method Room Air 05/05/23 11:25 BMI result Body Mass Index 40.5 Const: General: cooperative, comfortable, alert, awake and anxious N utritional Appearance: obese Orientation/consciousness: patient oriented x3 Limitations: no limitations HEENT: Head: Yes normocephalic and Yes atraumatic Neck: Neck: Yes trachea midline, Yes supple and Yes JVD Resp: Effort & Inspection: normal respiratory effort Auscultation: rales bilateral at the base Cardio: Jugular venous distension: JVD Palpation: abnormal PMI displaced PMI Rate: regular rate Rhythm: regular rhythm Heart sounds: S1 normal heart sound present, S2 normal heart sound present, no click, Gallop heart sound present S3 gallop, no murmurs and no rubs GI: Inspection: Yes distended Auscultation: normal bowel sounds Skin: General skin exam: no rashes or lesions noted Neuro: General: patient oriented x3 and no focal motor deficits Extrem: General: No clubbing, No cyanosis and Yes edema Psych: Appearance: grossly normal Objective Labs and Meds 05/04/23 22:00 05/04/23 22:00 Lab results: Laboratory Results - last 24 hr 05/04/23 05/04/23 05/05/23 22:00 Unknown 08:21 WBC 9.6 RBC 3.07 L Hgb 9.1 L Hct 28.1 L MCV 91.5 MCH 29.6 MCHC 32.4 RDW 12.8 Plt Count 230 MPV 11.8 Immature Gran % (Auto) 0.5 H Neut % (Auto) 68.1 Lymph % (Auto) 19.5 L [place] % (Auto) 7.1 Eos % (Auto) 4.2 H Baso % (Auto) 0.6 Lymph # (Auto) 1.9 [place] # (Auto) 0.7 Eos # (Auto) 0.4 Baso # (Auto) 0.1 Abs Immat Gran (auto) 0.05 H Absolute Neuts (auto) 6.6 Absolute Nucleated RBC 0.000 Nucleated RBC % (auto) 0.0 APTT 33.6 Sodium 135 Potassium 4.8 Chloride 108 Carbon Dioxide 22 Anion Gap 10 L BUN 26 H Creatinine 1.35 Estim Creat Clear Calc 82.7 Estimated GFR 56 POC Glucose Random Glucose 192 H Estimat Average Glucose 128 Hemoglobin A1c % 6.1 H Calcium 9.0 Total Bilirubin 0.3 AST 24 ALT 24 Alkaline Phosphatase 117 Troponin I High Sens 7.2 12.4 D B-Natriuretic Peptide 491 H Total Protein 6.8 Albumin 3.2 L TSH 2.93 Urine Color Urine Appearance Urine pH Ur Specific [place] Urine Protein Urine Glucose (UA) Urine Ketones Urine Blood Urine Nitrite Ur Leukocyte Esterase Urine RBC Urine WBC Ur Squamous Epith Cells Urine Bacteria Hyaline Casts Stool Occult Blood Influenza Type A (PCR) NEGATIVE Influenza Type B (PCR) NEGATIVE RSV RNA Qual (PCR) NEGATIVE SARS-CoV-2 RNA (RT-PCR) NEGATIVE 05/05/23 05/05/23 05/05/23 08:33 08:42 12:01 WBC RBC Hgb Hct MCV MCH MCHC RDW Plt Count MPV Immature Gran % (Auto) Neut % (Auto) Lymph % (Auto) [place] % (Auto) Eos % (Auto) Baso % (Auto) Lymph # (Auto) [place] # (Auto) Eos # (Auto) Baso # (Auto) Abs Immat Gran (auto) Absolute Neuts (auto) Absolute Nucleated RBC Nucleated RBC % (auto) APTT Sodium Potassium Chloride Carbon Dioxide Anion Gap BUN Creatinine Estim Creat Clear Calc Estimated GFR POC Glucose 176 H Random Glucose Estimat Average Glucose Hemoglobin A1c % Calcium Total Bilirubin AST ALT Alkaline Phosphatase Troponin I High Sens B-Natriuretic Peptide Total Protein Albumin TSH Urine Color Yellow Urine Appearance Clear Urine pH 5.5 Ur Specific [place] 1.020 Urine Protein >=1000 (4+) H Urine Glucose (UA) Negative Urine Ketones Negative Urine Blood Small (1+) H Urine Nitrite Negative Ur Leukocyte Esterase Negative Urine RBC 3-5 H Urine WBC 0-5 Ur Squamous Epith Cells 0-2 Urine Bacteria None Seen Hyaline Casts 3-5 Stool Occult Blood NEGATIVE Influenza Type A (PCR) Influenza Type B (PCR) RSV RNA Qual (PCR) SARS-CoV-2 RNA (RT-PCR) EKG shows no acute abnormalities Imaging Radiologist's impression: Impressions Chest X-Ray 05/04/23 22:05 IMPRESSION: 1. Continued increased of interstitial opacities. 2. Slight elevation the right hemidiaphragm. 3. Bibasilar atelectasis. 4. Prominence of the pulmonary vasculature. Assessment and Plan (1) Decompensated heart failure: Status: Acute Decompensated congestive in this middle-aged man, new onset most likely systolic heart failure. Will need echocardiogram for further workup to assess for LV systolic and diastolic function to evaluate for valvular abnormality. Further treatment based on the findings. Meanwhile will switch is losartan to Entresto 49-51 mg b.i.d. for better blood pressure control and heart failure management. Also switch his metoprolol to carvedilol for better blood pressure control and heart failure prognosis. Continue IV diuresis with Lasix 40 mg b.i.d.. Strict intake and output chart needs to be pursued. Continue monitor renal function closely along with electrolytes and replace as needed. Follow-up BMP tomorrow. If he does have significant LV systolic dysfunction will require further ischemic workup given his multiple risk factors. Also highly likely that he has underlying obstructive sleep apnea will require sleep study on discharge. Could also be related hypertensive cardiomyopathy. Will continue to follow with you. Greater than 40 minutes was spent in explaining and managing his condition. Procedures Date of Service Date of Service: 05/05/23
--- NOTE | 2023-05-05 13:52 | PC.NURSE ---
called [id number] for inquary of tray for pt.
[2023-05-05] MEDS: Sacubitril/Valsartan 49/51 1 TAB TABLET PO ×2 (14:33→20:31)
[2023-05-05 15:27] LABS: Glucose, Whole Blood 165 mg/dL (60-115)
[2023-05-05] MEDS: 0.9 % Sodium Chloride Flush 3 ML SYRINGE IVFLUSH ×2 (15:34→20:32)
[2023-05-05 17:40] LABS: Glucose, Whole Blood 139 mg/dL (60-115)
[2023-05-05] MEDS: hydrALAZINE HCl 20 MG/ML VIAL 10 MG IVPUSH (17:44)
[2023-05-05] MEDS: Furosemide 40 MG/4 ML VIAL IVPUSH (17:50)
[2023-05-05 20:01] LABS: Glucose, Whole Blood 152 mg/dL (60-115)
[2023-05-05] MEDS: Insulin Glargine,Hum.rec.anlog 100 UNIT/ML 10 ML VIAL 15 UNIT SUBCUT (20:31)
[2023-05-05] MEDS: Atorvastatin Calcium 40 MG TABLET PO (20:31)
[2023-05-05] MEDS: carvediloL 6.25 MG TABLET PO (20:31)
--- NOTE | 2023-05-05 23:00 | HO.SKINPHOTO ---
Location: Left 4th Toe Category: Diabetic Ulcer Stage: Unstageable Length: Width: Depth: cm
[2023-05-06] VITALS: BP 153/72; PULSE 74; RESP 20; TEMP 36.8; O2SAT 92
[2023-05-06 03:28] VITALS: BP 160/75; PULSE 72; RESP 20; TEMP 37.2; O2SAT 96
[2023-05-06 06:51] LABS: MANUAL DIFF FLAG NO
[2023-05-06 06:52] LABS: Basophils Absolute Auto 0.1 X10*3/uL (0.0-0.2); Basophils Percent Auto 0.6 % (0-2); Eosinophils Absolute Auto 0.4 X10*3/uL (0.0-0.4); Eosinophils Percent Auto 3.8 % (0-4); Hematocrit 28.3 % (42.0-52.0); Hemoglobin 9.3 g/dl (14.0-18.0); Imm Gran Abs Auto 0.02 X10*3/uL (0.00-0.03); Imm Gran Pct Auto 0.2 % (0.0-0.4); Lymphocytes Absolute Auto 2.3 X10*3/uL (1.2-4.9); Lymphocytes Percent Auto 22.4 % (20-40); Mean Corpuscular HGB Conc 32.9 g/dl (31.0-36.0); Mean Corpuscular Hemoglobin 29.5 pg (27.0-33.0); Mean Corpuscular Volume 89.8 fL (80.0-98.0); Mean Platelet Volume 11.5 fL (9.4-12.4); Monocytes Absolute Auto 0.7 X10*3/uL (0.1-1.2); Neutrophils Absolute Auto 6.8 x10*3/uL (2.0-8.3); Platelet Count 251 X10*3/uL (160-400); Red Blood Count 3.15 X10*6/uL (4.60-5.80); White Blood Count 10.3 X10*3/uL (4.8-10.8)
[2023-05-06 07:10] LABS: Anion Gap 12 (12-20); Blood Urea Nitrogen 24 mg/dL (9-16); Calcium 8.9 mg/dL (8.4-10.2); Carbon Dioxide 21 mmol/L (22-29); Chloride 110 mmol/L (96-108); Creatinine Clr Calc Pharmacy 73.5; Estimated Glomerular Filt Rate 50; Glucose Random 112 mg/dL (60-115); Potassium 4.6 mmol/L (3.3-5.1); Sodium 138 mmol/L (135-145)
[2023-05-06 07:43] LABS: Glucose, Whole Blood 122 mg/dL (60-115)
[2023-05-06 08:00] VITALS: BP 156/78; PULSE 72; RESP 20; TEMP 36.7; O2SAT 96
--- NOTE | 2023-05-06 08:57 | MHC.CM.PN ---
Pt lives with his , he is independent, does not use home health services or med equipment. He has not used [facility] or been to [facility] in the past. His car is in the parking lot. HCP discussed, form given and will be added to chart. PCP is Dr. Quique Tatum in [place]. CM to follow and assist with DC planning.
--- NOTE | 2023-05-06 09:04 | PM.PNCARD ---
Subjective Subjective Date of Service: 05/06/23 Principal diagnosis: Decompensated congestive heart failure. Interval history: Patient feeling a lot better. Since yesterday has diuresed another 2.2 L. Feeling better. Blood pressure is better but not still controlled. Echocardiogram shows normal LV ejection fraction with diastolic dysfunction. Most likely hypertensive in nature. No arrhythmias overnight. Review of Systems Constitutional: Reports no additional constitutional complaints Eyes: Reports no additional eye complaints Cardiovascular: Reports no additional cardiovascular complaints Gastrointestinal: Reports no additional gastrointestinal complaints Reports system reviewed and no additional complaints, except as documented Endocrine: Reports no additional endocrine complaints Hematologic/Lymphatic: Reports no additional hematologic/lymphatic complaints Physical Exam Vital Signs: Last Vital Signs Temp 98.1 F 05/06/23 08:00 Pulse 72 05/06/23 08:00 Resp 20 05/06/23 08:00 BP 156/78 H 05/06/23 08:00 Pulse Ox 96 05/06/23 08:00 O2 Del Method Room Air 05/06/23 08:00 BMI result Body Mass Index 39.0 Const General: cooperative, comfortable, alert, awake and Physically active Nutritional Appearance: obese Orientation/consciousness: patient oriented x3 Neck Neck: Yes trachea midline, Yes supple and Yes no JVD Resp Effort & Inspection: normal respiratory effort Auscultation: clear to auscultation bilaterally Cardio Jugular venous distension: no JVD Rate: regular rate Rhythm: regular rhythm Heart sounds: S1 normal heart sound present, S2 normal heart sound present, no click, no gallops, no murmurs and no rubs GI Auscultation: normal bowel sounds Skin General skin exam: no rashes or lesions noted Neuro General: patient oriented x3 Extrem General: Yes no clubbing, cyanosis or edema, Yes clubbing and Yes pedal edema Objective Labs and Meds 05/06/23 06:38 05/06/23 06:38 Lab results: Laboratory Results - last 24 hr 05/04/23 05/05/23 05/05/23 Unknown 08:21 12:01 WBC RBC Hgb Hct MCV MCH MCHC RDW Plt Count MPV Immature Gran % (Auto) Neut % (Auto) Lymph % (Auto) [place] % (Auto) Eos % (Auto) Baso % (Auto) Lymph # (Auto) [place] # (Auto) Eos # (Auto) Baso # (Auto) Abs Immat Gran (auto) Absolute Neuts (auto) Absolute Nucleated RBC Nucleated RBC % (auto) Sodium Potassium Chloride Carbon Dioxide Anion Gap BUN Creatinine Estim Creat Clear Calc Estimated GFR POC Glucose 176 H Random Glucose Estimat Average Glucose 128 Hemoglobin A1c % 6.1 H Calcium TSH 2.93 05/05/23 05/05/23 05/05/23 15:24 17:15 19:53 WBC RBC Hgb Hct MCV MCH MCHC RDW Plt Count MPV Immature Gran % (Auto) Neut % (Auto) Lymph % (Auto) [place] % (Auto) Eos % (Auto) Baso % (Auto) Lymph # (Auto) [place] # (Auto) Eos # (Auto) Baso # (Auto) Abs Immat Gran (auto) Absolute Neuts (auto) Absolute Nucleated RBC Nucleated RBC % (auto) Sodium Potassium Chloride Carbon Dioxide Anion Gap BUN Creatinine Estim Creat Clear Calc Estimated GFR POC Glucose 165 H 139 H 152 H Random Glucose Estimat Average Glucose Hemoglobin A1c % Calcium TSH 05/06/23 05/06/23 06:38 07:39 WBC 10.3 RBC 3.15 L Hgb 9.3 L Hct 28.3 L MCV 89.8 MCH 29.5 MCHC 32.9 RDW 13.0 Plt Count 251 MPV 11.5 Immature Gran % (Auto) 0.2 Neut % (Auto) 66.0 Lymph % (Auto) 22.4 [place] % (Auto) 7.0 Eos % (Auto) 3.8 Baso % (Auto) 0.6 Lymph # (Auto) 2.3 [place] # (Auto) 0.7 Eos # (Auto) 0.4 Baso # (Auto) 0.1 Abs Immat Gran (auto) 0.02 Absolute Neuts (auto) 6.8 Absolute Nucleated RBC 0.000 Nucleated RBC % (auto) 0.0 Sodium 138 Potassium 4.6 Chloride 110 H Carbon Dioxide 21 L Anion Gap 12 BUN 24 H Creatinine 1.49 H Estim Creat Clear Calc 73.5 Estimated GFR 50 POC Glucose 122 H Random Glucose 112 Estimat Average Glucose Hemoglobin A1c % Calcium 8.9 TSH Progress Note: A&P Assessment and plan (1) Decompensated heart failure: Status: Acute Assessment and Plan: Decompensated congestive heart failure secondary to diastolic dysfunction, consistent with heart failure preserved ejection fraction. Advanced diastolic dysfunction most likely due to hypertensive heart disease. Better control blood pressure is necessary. High likelihood of underlying obstructive sleep apnea will need home sleep study. Will also need ischemic evaluation. All this can be done as outpatient. Will switch Entresto to Diovan 160 mg b.i.d. as it is not indicated, increase Coreg to 12.5 mg b.i.d., add Aldactone 25 mg daily and Jardiance 10 mg daily. Patient can be discharged home today. Start Lasix 40 mg daily. Had a detailed discussion with patient about diet modification with improvement in salt intake in the diet and monitoring his blood pressure at home. Daily weight monitoring avoidance of salt loading. Will follow up in the clinic in 10 days. Thank you for allowing me to partake in his care Time Spent With Patient Time: Total time managing care of this patient today ____ minutes. Procedures Date of Service Date of Service: 05/06/23
[2023-05-06] MEDS: Zinc Sulfate 220 MG CAPSULE PO (09:37)
[2023-05-06] MEDS: Fenofibrate 54 MG TABLET PO (09:37)
[2023-05-06] MEDS: Multivitamin TABLET 1 TAB PO (09:37)
[2023-05-06] MEDS: carvediloL 6.25 MG TABLET PO (09:37)
[2023-05-06] MEDS: Ferrous Sulfate 324 MG TABLET.DR PO (09:37)
[2023-05-06] MEDS: Sacubitril/Valsartan 49/51 1 TAB TABLET PO (09:37)
[2023-05-06] MEDS: Furosemide 40 MG/4 ML VIAL IVPUSH (09:38)
[2023-05-06] MEDS: 0.9 % Sodium Chloride Flush 3 ML SYRINGE IVFLUSH (09:38)
--- NOTE | 2023-05-06 10:47 | P.F2F_ITS ---
Service Date Service Date: 05/06/23 Encounter Date of encounter: 05/06/23 Reasons for Services Signs and symptoms assessed: CHF Reason for senior care: medication management, medication treatment and teach disease management MD Overseeing Care: Quique Tatum Homebound: Leaving the home is medically contraindicated at this time without the asist of a device and/or another person due th the listed conditions above and below. Reason homebound: weakness related to hospital stay Homebound supporting statement: admitted for CHF exac 05/05-05/06/23 Certification: Based on the above findings, I certify that this patient is confined to the home and needs intermittent senior care care, physical therapy and/or speech therapy, or continues to need occupational therapy. The patient is under my care, and I have initiated the establishment of the plan of care. The patient will be followed by a physician who will periodically review the plan of care. Time Spent With Patient Time: Total time managing care of this patient today ____ minutes.
--- NOTE | 2023-05-06 10:55 | P.DS_ITS ---
DS: Providers Provider Date of Service: 05/06/23 Date of admission: 05/05/23 12:59 Date of discharge: 05/06/23 Primary care physician: Unknown Physician Consults: 05/05/23 09:49 Consult to Cardiology Routine Consulting Provider: [facility] Reason for consultation: New heart failure Has provider been notified: Yes 05/05/23 20:42 Consult to Wound Care Routine Reason for consultation: unstableale ulcer to left 4th toe Has provider been notified: Yes DS: Diagnosis Discharge Diagnosis (1) Decompensated heart failure: Status: Acute (2) Uncontrolled hypertension: Status: Acute (3) Acute heart failure with preserved ejection fraction (HFpEF): Status: Acute DS: Summary Hospital Course Hospital Course: from H+P by hospitalist Esperanza Lane MD, 05/05/23: River is a 52 yo M with past medical history of anemia, diabetes mellitus, hypertension, hyperlipidemia who presents today complaining of worsening shortness of breath for 2 weeks. States has had some SOB for several months but has acutely worsened over past several weeks. Has fatigue and SOB with walking short distances. Describes it as unable to get enough air. Reports condition is constant; made worse by lying down. Wakes in the night gasping for air. No hx of tobacco use, though he does smoke marijuana. Reports he was seen by PCP on 04/09/23 for edema of lower extremities and SOB and was rx'd 5 day course of furosemide. States that SOB and edema did not improve but did not worsen while on this regimen. Follow up eval by PCP on 04/30/23 found normocytic anemia; referral to hematology. Never had colonoscopy; no family hx of colon cancer. PCP also noted on 04/30/23 visit that patient had gained 11 lbs from 04/09/23. He was admitted to the telemetry unit and diuresed with IV furosemide, negative approximately 2.2L net with improvement in symptoms. Echocardiogram showed normal LVEF with diastolic dysfunction, likely due to uncontrolled hypertension. Cardiology was consulted. He was discharged on valsartan, spironolactone, carvedilol, empagliflozin, and furosemide. He will need outpatient Cardiology follow-up for ischemic evaluation and sleep study. He was discharged with VNA services. n Time Attestation Total time managing care of this patient today: 35 mintues. Discharge coordination time: Greater than 30 minutes Quality: Safe Use of Opioids Does Pt have an Active Cancer Diagnosis on the Problem List?: No Quality: Stroke Does the patient have a stroke diagnosis?: No Physical Exam Vital Signs: Vital Signs: Last Vital Signs Temp 98.1 F 05/06/23 08:00 Pulse 72 05/06/23 08:00 Resp 20 05/06/23 08:00 BP 156/78 H 05/06/23 08:00 Pulse Ox 96 05/06/23 08:00 O2 Del Method Room Air 05/06/23 08:00 BMI result Body Mass Index 39.0 Gen: in no acute distress HEENT: sclera anicteric, moist mucus membranes Neck: supple Lungs: clear to auscultation bilaterally Heart: regular rate and rhythm, no murmurs Abd: soft, non-tender, non-distended, obese Ext: trace bilateral leg edema Skin: warm/well-perfused Neuro: alert and oriented x3, no focal findings Psych: appropriate affect DS: Data Data Completed and Pending Completed studies during hospitalization [Text1]: Laboratory Results WBC 10.3 X10*3/uL (4.8-10.8) 05/06/23 06:38 RBC 3.15 X10*6/uL (4.60-5.80) L 05/06/23 06:38 Hgb 9.3 g/dl (14.0-18.0) L 05/06/23 06:38 Hct 28.3 % (42.0-52.0) L 05/06/23 06:38 MCV 89.8 fL (80.0-98.0) 05/06/23 06:38 MCH 29.5 pg (27.0-33.0) 05/06/23 06:38 MCHC 32.9 g/dl (31.0-36.0) 05/06/23 06:38 RDW 13.0 % (11.0-16.0) 05/06/23 06:38 Plt Count 251 X10*3/uL (160-400) 05/06/23 06:38 MPV 11.5 fL (9.4-12.4) 05/06/23 06:38 Immature Gran % (Auto) 0.2 % (0.0-0.4) 05/06/23 06:38 Neut % (Auto) 66.0 % (45-73) 05/06/23 06:38 Lymph % (Auto) 22.4 % (20-40) 05/06/23 06:38 [place] % (Auto) 7.0 % (2-11) 05/06/23 06:38 Eos % (Auto) 3.8 % (0-4) 05/06/23 06:38 Baso % (Auto) 0.6 % (0-2) 05/06/23 06:38 Lymph # (Auto) 2.3 X10*3/uL (1.2-4.9) 05/06/23 06:38 [place] # (Auto) 0.7 X10*3/uL (0.1-1.2) 05/06/23 06:38 Eos # (Auto) 0.4 X10*3/uL (0.0-0.4) 05/06/23 06:38 Baso # (Auto) 0.1 X10*3/uL (0.0-0.2) 05/06/23 06:38 Abs Immat Gran (auto) 0.02 X10*3/uL (0.00-0.03) 05/06/23 06:38 Absolute Neuts (auto) 6.8 x10*3/uL (2.0-8.3) 05/06/23 06:38 Absolute Nucleated RBC 0.000 X10*3/uL (0.0-0.012) 05/06/23 06:38 Nucleated RBC % (auto) 0.0 /100WBC (0.0-0.2) 05/06/23 06:38 APTT 33.6 SEC (26.0-36.4) 05/05/23 08:21 Sodium 138 mmol/L (135-145) 05/06/23 06:38 Potassium 4.6 mmol/L (3.3-5.1) 05/06/23 06:38 Chloride 110 mmol/L (96-108) H 05/06/23 06:38 Carbon Dioxide 21 mmol/L (22-29) L 05/06/23 06:38 Anion Gap 12 (12-20) 05/06/23 06:38 BUN 24 mg/dL (9-16) H 05/06/23 06:38 Creatinine 1.49 mg/dL (0.5-1.4) H 05/06/23 06:38 Estim Creat Clear Calc 73.5 05/06/23 06:38 Estimated GFR 50 05/06/23 06:38 POC Glucose 122 mg/dL (60-115) H 05/06/23 07:39 Random Glucose 112 mg/dL (60-115) 05/06/23 06:38 Estimat Average Glucose 128 mg/dL 05/04/23 Unknown Hemoglobin A1c % 6.1 % (<6.0) H 05/04/23 Unknown Calcium 8.9 mg/dL (8.4-10.2) 05/06/23 06:38 Total Bilirubin 0.3 mg/dL (0.0-1.0) 05/04/23 22:00 AST 24 U/L (5-37) 05/04/23 22:00 ALT 24 U/L (0-40) 05/04/23 22:00 Alkaline Phosphatase 117 U/L (39-117) 05/04/23 22:00 Troponin I High Sens 12.4 ng/L (<3.5-35.0) D 05/05/23 08:21 B-Natriuretic Peptide 491 pg/mL (<100) H 05/05/23 08:21 Total Protein 6.8 g/dL (6.5-8.0) 05/04/23 22:00 Albumin 3.2 g/dL (3.5-5.0) L 05/04/23 22:00 TSH 2.93 uIU/mL (0.32-4.0) 05/05/23 08:21 Urine Color Yellow 05/05/23 08:33 Urine Appearance Clear 05/05/23 08:33 Urine pH 5.5 (5.0-9.0) 05/05/23 08:33 Ur Specific [place] 1.020 (1.005-1.025) 05/05/23 08:33 Urine Protein >=1000 (4+) mg/dL (Neg-Trace) H 05/05/23 08:33 Urine Glucose (UA) Negative mg/dL (Negative) 05/05/23 08:33 Urine Ketones Negative mg/dL (Negative) 05/05/23 08:33 Urine Blood Small (1+) (Negative) H 05/05/23 08:33 Urine Nitrite Negative (Negative) 05/05/23 08:33 Ur Leukocyte Esterase Negative (Negative) 05/05/23 08:33 Urine RBC 3-5 /HPF (0-2) H 05/05/23 08:33 Urine WBC 0-5 /HPF (0-5) 05/05/23 08:33 Ur Squamous Epith Cells 0-2 /HPF (0-2) 05/05/23 08:33 Urine Bacteria None Seen (None Seen) 05/05/23 08:33 Hyaline Casts 3-5 /LPF (0-2) 05/05/23 08:33 Stool Occult Blood NEGATIVE (NEGATIVE) 05/05/23 08:42 Influenza Type A (PCR) NEGATIVE (Negative) 05/04/23 22:00 Influenza Type B (PCR) NEGATIVE (Negative) 05/04/23 22:00 RSV RNA Qual (PCR) NEGATIVE (Negative) 05/04/23 22:00 SARS-CoV-2 RNA (RT-PCR) NEGATIVE (Negative) 05/04/23 22:00 Impressions Chest X-Ray 05/04/23 22:05 IMPRESSION: 1. Continued increased of interstitial opacities. 2. Slight elevation the right hemidiaphragm. 3. Bibasilar atelectasis. 4. Prominence of the pulmonary vasculature. TTE 05/05/23 1. Low normal LV ejection fraction of 50-55% with restrictive filling pattern 2. Mildly dilated left atrium 3. Normal cardiac valvular Doppler 4. Mildly elevated right atrial pressures 5. No gross pericardial effusion Discharge Plan Discharge Anticipated Discharge Date/Time: 05/06/23 10:48 Patient Disposition: Home Health Service Discharge Diagnosis: CHF exacerbation Referrals: Quique Tatum [Physician] - 1 Week Jonnathan Pineda MD [Physician] - 2 Weeks Physician,Alana J [Primary Care Provider] - 1 Week Discharge Medications: New carvedilol 12.5 mg tablet 12.5 mg PO BID Qty: 60 0RF Rx Instructions: must administer with a meal/food REPLACES METOPROLOL valsartan 160 mg tablet 160 mg PO BID Qty: 60 0RF Rx Instructions: REPLACES LOSARTAN spironolactone 25 mg tablet 25 mg PO DAILY Qty: 30 0RF furosemide 40 mg tablet 40 mg PO QAM Qty: 30 0RF empagliflozin 10 mg tablet 10 mg PO DAILY Qty: 30 0RF Continued (DME) pen needle, diabetic [BD Toshia 2nd Gen Pen Needle] 32 gauge x 5/32 needle See Rx Instructions .ROUTE .COMPLEX Qty: 120 8RF Dose Instruction: USE FOUR TIMES A DAY OR DIRECTED. Rx Instructions: USE FOUR TIMES A DAY OR DIRECTED. (DME) FreeStyle Lite Strips Strip Qty: 100 4RF Rx Instructions: Test four times a day or as directed. (DME) lancets [FreeStyle Lancets] 28 gauge misc See Rx Instructions .ROUTE .COMPLEX Qty: 100 2RF Dose Instruction: TEST FOUR TIMES A DAY OR DIRECTED. Rx Instructions: TEST FOUR TIMES A DAY OR DIRECTED. zinc acetate 25 mg (zinc) capsule 50 mg PO BID 90 Days Qty: 360 1RF Rx Instructions: substitute of 30 mg capsules ok ferrous sulfate 325 mg (65 mg iron) tablet 325 mg PO TID 30 Days Qty: 90 3RF fenofibrate 54 mg tablet 54 mg PO DAILY 90 Days Qty: 90 1RF multivitamin Tablet 1 tab PO DAILY omega-3 fatty acids Capsule 1,000 mg PO TID (DME) blood-glucose meter [FreeStyle Lite Meter] Kit Qty: 1 0RF Rx Instructions: As Directed insulin glargine [Basaglar KwikPen U-100 Insulin] 100 unit/mL (3 mL) insulin pen 15 unit subcut BEDTIME fluticasone propionate [Flonase Allergy Relief] 50 mcg/actuation spray,suspension 1 spray intranasal BID PRN (Reason: Allergic Symptoms) Rx Instructions: administer into each nostril metformin 1,000 mg tablet 1,000 mg PO BID Qty: 180 3RF atorvastatin 40 mg tablet 40 mg PO BEDTIME 30 Days Qty: 30 3RF (DME) comp.stocking,knee,long,medium Misc See Rx Instructions .Route Qty: 12 0RF Rx Instructions: As directed Discontinued metoprolol tartrate 75 mg tablet 75 mg PO BID 30 Days Qty: 60 3RF losartan 50 mg tablet 50 mg PO BID 30 Days Qty: 60 3RF Discharge Orders: Discharge Order (Routine); Ordered 05/06/23 Ordered By: Pavel Gordon Diet: low sodium Activity on Discharge: As tolerated Stand Alone Forms: Patient Portal Discharge page Other Ambulatory Orders: Basic Metabolic Panel (Routine) Timeframe: 1 Week Facility: [facility] - Location: Laboratory Ordered By: Pavel Gordon Care Plan Goals: blood pressure control Health Concerns: CHF exacerbation Plan of Treatment: stop metoprolol stop losartan take: carvedilol 12.5 mg twice daily valsartan 160 mg twice daily spironolactone 25 mg once daily furosemide 40 mg once daily empagliflozin 10 mg once daily Low-sodium diet: less than 2000 mg of sodium daily. Weigh yourself daily and call your doctor if your weight goes up by more than 3 lb/day or 5 lb/week. check BMP [non-fasting lab] in 1 week see [facility] in 2 weeks Please follow up with your primary care doctor within 1 week. Return to the hospital if you experience recurrent or worsening symptoms. home with A services Assessment: See Discharge Summary.
--- NOTE | 2023-05-06 11:07 | MHC.CM.PN ---
Pt has been medically cleared for DC. He will go home via private transport, no services required. HCP was completed and added to chart.
== END 2023-05-06 11:45 | disposition home health service (06) | DRG 291 ==
LOC: HO.ED 05-05 07:53 → HO.EDOVER 05-05 13:07 → HO.IMC 05-05 16:18
PROVIDERS: Admitting Provider Internal Medicine; Emergency Provider Emergency Medicine Emergency Medical Services; PCP Nurse Practitioner Family; Visit Provider Family Medicine
DX: I11.0 Hypertensive heart disease with heart failure (principal); I50.21 Acute systolic (congestive) heart failure; E78.5 Hyperlipidemia, unspecified; G47.33 Obstructive sleep apnea (adult) (pediatric); D64.9 Anemia, unspecified; Z20.822 Contact with and (suspected) exposure to COVID-19; Z87.891 Personal history of nicotine dependence; Z79.4 Long term (current) use of insulin; Z79.84 Long term (current) use of oral hypoglycemic drugs; Z79.899 Other long term (current) drug therapy
CPT/HCPCS: 0241U; 36415; 71045; 80048; 80053; 81001; 82272; 82947; 83036; 83880; 84443; 84484; 85025; 85730; 93005; 93306; 99221; 99285; J0360; J1940; Q9957

== ENCOUNTER → 2023-05-04 21:47 | Outpatient (BNV) | payer OTHER, SELFPAY | PROVIDERS: Admitting Provider Internal Medicine; Emergency Provider Emergency Medicine Emergency Medical Services; Visit Provider Internal Medicine Cardiovascular Disease | DX: I50.9 Heart failure, unspecified (principal) | CPT/HCPCS: 93010 ==

== ENCOUNTER → 2023-05-05 12:59 | Outpatient (BNV) | payer OTHER, SELFPAY | PROVIDERS: Admitting Provider Internal Medicine; Emergency Provider Emergency Medicine Emergency Medical Services; Visit Provider Family Medicine | DX: I50.9 Heart failure, unspecified (principal); R06.09 Other forms of dyspnea; R60.0 Localized edema | CPT/HCPCS: 99223; 99239; G0180 ==

== ENCOUNTER → 2023-05-05 12:59 | Outpatient (BNV) | payer OTHER, SELFPAY | PROVIDERS: Admitting Provider Internal Medicine; Emergency Provider Emergency Medicine Emergency Medical Services; Visit Provider Internal Medicine Cardiovascular Disease | DX: I50.9 Heart failure, unspecified (principal) | CPT/HCPCS: 93306; 99222; 99233 ==

== ENCOUNTER 2023-05-07 06:55 | Outpatient (REF) | payer OTHER, SELFPAY ==
[2023-05-07 07:35] LABS: Hematocrit 29.6 % (42.0-52.0); Hemoglobin 9.6 g/dl (14.0-18.0); Immature Retic Fraction 21.7 % (2.3-13.4); Mean Corpuscular HGB Conc 32.4 g/dl (31.0-36.0); Mean Corpuscular Hemoglobin 29.6 pg (27.0-33.0); Mean Corpuscular Volume 91.4 fL (80.0-98.0); Mean Platelet Volume 11.7 fL (9.4-12.4); Platelet Count 258 X10*3/uL (160-400); Red Blood Count 3.24 X10*6/uL (4.60-5.80); Retic HGB Equivalent 33.3 pg (30.0-35.0); Reticulocyte Percent 3.4 % (0.5-1.8); Reticulocytes Absolute 0.111 X10*6/uL (0.026-0.095)
[2023-05-07 07:58] LABS: Anion Gap 11 (12-20); Blood Urea Nitrogen 32 mg/dL (9-16); Calcium 8.8 mg/dL (8.4-10.2); Carbon Dioxide 25 mmol/L (22-29); Chloride 108 mmol/L (96-108); Estimated Glomerular Filt Rate 42; Glucose Random 160 mg/dL (60-115); Sodium 139 mmol/L (135-145)
== END 2023-05-07 06:56 | disposition home or self-care (01) ==
LOC: HO.LAB 06:55
PROVIDERS: Visit Provider Nurse Practitioner Family
DX: M25.471 Effusion, right ankle (principal); D50.9 Iron deficiency anemia, unspecified; M25.472 Effusion, left ankle; M25.474 Effusion, right foot; M25.475 Effusion, left foot; E87.5 Hyperkalemia; I50.9 Heart failure, unspecified; R06.09 Other forms of dyspnea
CPT/HCPCS: 36415; 80048; 85027; 85045

== ENCOUNTER 2023-05-08 09:29 | Outpatient (AMB) | payer OTHER, SELFPAY ==
[2023-05-08 09:34] VITALS: BP 148/78; PULSE 66; O2SAT 99; BMI 38.5
--- NOTE | 2023-05-08 09:34 | MHC.PC.OV ---
Vital Signs 05/08/23 09:34 05/08/23 10:34 Height 5 ft 8 in Weight 253 lb BMI 38.5 BP 148/78 H 126/70 Blood Pressure Location Lt brachial Rt brachial Position Sitting Sitting Pulse 66 Pulse Source Pulse Oximeter Temp Source Skin Pulse Oximetry (%) 99 Oxygen Delivery Method Room Air Intake Visit Reasons: 1 wk anemia, hyperkalemia [employer] Required: No Allergies No Known Allergies Allergy (Verified 05/08/23 10:18) Medication List - Last Reconciled 05/08/23 by Quique Tatum CNP atorvastatin 40 mg PO BEDTIME 30 days blood sugar diagnostic (FreeStyle Lite Strips) Test four times a day or as directed. blood-glucose meter (FreeStyle Lite Meter kit) As Directed carvedilol 12.5 mg PO BID comp.stocking,knee,long,medium As directed empagliflozin 10 mg PO DAILY fenofibrate 54 mg PO DAILY 90 days ferrous sulfate 325 mg PO TID 30 days fluticasone propionate 50 mcg/actuation (Flonase Allergy Relief) 1 spray intranasal BID PRN furosemide 40 mg PO QAM insulin glargine (Basaglar KwikPen U-100 Insulin) 15 units subcut BEDTIME lancets (FreeStyle Lancets) TEST FOUR TIMES A DAY OR DIRECTED. metformin 1,000 mg PO BID multivitamin 1 tab PO DAILY omega-3 fatty acids 1,000 mg PO TID pen needle, diabetic (BD Toshia 2nd Gen Pen Needle) USE FOUR TIMES A DAY OR DIRECTED. spironolactone 25 mg PO DAILY valsartan 160 mg PO BID zinc acetate 50 mg (2 x 25 mg (zinc)) PO BID 3 months Tobacco use date assessed: 05/08/23 Dental Screening Dental Screen Date: 05/08/23 Did you have a dental visit in the last 12 months?: No Did you have a dental problem in the last 6 months where you did not have access to dental care?: No Was dental information given to patient?: Patient has dentist HPI HPI Comments History of Present Illness Details 52-year-old male presents for anemia and hyperkalemia follow-up He notes that he recently went to [facility] ED on 05/06/2023, was admitted and discharged the following day. He was treated for dyspnea on exertion. Review ED/hospital notes revealed normal EKG, cxr concedrning for pulmonary edema. Losartan and Metoprolon were dc'd. He was prescribed Furosemide, Carvedilol, Valsartan, and Empagliflozin. He was discharged with instructions to f/u with hematology, cardiology, and PCP He denies any symptoms at this time His potassium was recently elevated RBC and H&H has been low. Ferrous sulfate was recently increased to 325 mg 3 times daily He admits to taking his medications as prescribed without adverse reactions He has an appointment with [facility] hematology on 05/19/2023 He notes that he was contacted by [facility] wound clinic but he has not made an appointment for wound care He notes that edema to his lower legs/ankles is gradually decreasing [facility] Medical History Postoperative visit Necrotizing subcutaneous infection Hypertension Type 2 diabetes Surgical History Status post incision and drainage [place] teeth removed Family History Mother Diabetes Maternal Uncle Diabetes Sister Multiple sclerosis Social History Household Members: Spouse Housing: House Do you presently have visiting nurse or other home services: No Alcohol intake: current Alcohol intake frequency: a few times a week Alcohol type: beer Patient Tobacco Use Status: Former Tobacco user Quit Date: 2009 e-Cigarette/Vaping Use: Never Used Substance Use Type: Marijuana service: No Current occupational status: employed Current occupation: [employer] Cognitive needs: No Hearing needs: No Vision needs: No Questionnaire PHQ-9 Over the last 2 weeks, how often have you been bothered by any of the following problems? 1. Little interest or pleasure in doing things: not at all 2. Feeling down, depressed, or hopeless: not at all 3. Trouble falling or staying asleep, or sleeping too much: not at all 4. Feeling tired or having little energy: not at all 5. Poor appetite or overeating: not at all 6. Feeling bad about yourself - or that you are a failure or have let yourself or your family down: not at all 7. Trouble concentrating on things, such as reading the newspaper or watching television: not at all 8. Moving or speaking so slowly that other people could have noticed. Or the opposite - being so fidgety or restless that you have been moving around a lot more than usual: not at all 9. Thoughts that you would be better off or of hurting yourself in some way: not at all Total score: 0 Depression Screening Interpretation: Negative Depression Screening Done: Yes 11268 - PHQ-9 Billing: Yes Source: Developed by Drs. Higinio Rodriguez, Olivia Rayo, Edilberto Freeman and colleagues, with an educational smitha from [employer]. Thrive Questionnaire Date Thrive assessed: 05/06/23 AUDIT C Alcohol Use Questionnaire (AUDIT-C) 1. How often do you have a drink containing alcohol?: Never 3. How often do you have six or more drinks on one occasion?: Never Total Score: 0 Score Reviewed/Action Taken: No UTE-7 AMB Questionnaire UTE-7 Date UTE - 7 assessed: 05/08/23 Feeling nervous, anxious, or on edge: 0 = Not at all Not being able to stop or control worryin = Not at all Worrying too much about different things: 0 = Not at all Trouble relaxin = Not at all Being so restless that it is hard to sit still: 0 = Not at all Becoming easily annoyed or irritable: 0 = Not at all Feeling afraid as if something awful might happen: 0 = Not at all Total UTE-7 score (0-4 normal; 5-9 mild; 10-14 moderate; 15-21 severe): 0 Source: Developed by Drs. Higinio Rodriguez, Olivia Rayo, Edilberto Freeman and colleagues, with an educational smitha from [employer]. Review of Systems Const Details: Const Denies chills, Denies fatigue, Denies fever(s), Denies headache(s) and Denies weakness ENT Denies dizziness and Denies headache(s) Card Denies chest pain, Denies lightheadedness, Denies dyspnea and Denies other (Palpitations) Resp Denies cough, Denies dyspnea, Denies wheezing and Denies other ( shortness of breath) GI Denies abdominal pain, Denies melena, Denies hematochezia, Denies change in bowel habits, Denies dyspepsia and Denies nausea Denies hematuria and Denies dysuria Musc Denies abnormal gait, Denies myalgias, Denies arthralgias, Denies numbness and Denies tingling Skin/Breast Denies rash, Denies unusual bruising and Denies wounds Neuro Denies abnormal gait, Denies dizziness, Denies headache(s), Denies memory loss, Denies numbness, Denies Sensory deficit (Neuro), Denies tingling and Denies weakness Psych Denies anxiety, Denies depression, Denies memory loss Endo Denies cold intolerance, Denies fatigue, Denies heat intolerance, Denies polydipsia and Denies polyuria Aller/Immun Denies wheezing Physical exam (Primary Care) Vital Signs: Last Vital Signs Pulse 66 05/08/23 09:34 BP 148/78 H 05/08/23 09:34 Pulse Ox 99 05/08/23 09:34 Oxygen Delivery Method Room Air 05/08/23 09:34 BMI result Body Mass Index 38.5 Tobacco/Smoking Status: Tobacco use Status Tobacco use date assessed 05/08/23 05/08/23 09:37 Patient Tobacco Use Status Former Tobacco user 05/08/23 09:37 Tobacco use type 04/13/23 11:08 e-Cigarette/Vaping Use Never Used 05/08/23 09:37 PHQ-9: PHQ-9 Score PHQ-9: Total score 0 05/08/23 09:50 Depression Screening Interpretation: Negative Thrive Assessment: Date of Thrive Assessment Date Thrive assessed 05/06/23 05/08/23 09:37 Const Other: General: no acute distress and well developed Nutritional Appearance: well nourished Orientation/consciousness: patient oriented x3 HENMT Head: Yes normocephalic and Yes atraumatic Eyes General: appearance normal, both eyes and all related structures Pupils: Equal, round and reactive pupils present EOM: EOMs intact bilaterally Resp Effort & Inspection: normal respiratory effort Auscultation: clear to auscultation bilaterally Cardio Rate: regular rate Rhythm: regular rhythm Heart sounds: S1 normal heart sound present, S2 normal heart sound present, no gallops, no murmurs and no rubs GI Palpation (GI): No Abdominal aortic bruit present, Soft to palpation, nontender, No hepatosplenomegaly present and No Rebound tenderness present Auscultation: normal bowel sounds General: Yes no CVA tenderness Back/Spine/Pelvis Back: no CVA tenderness Cervical Spine: cervical ROM normal and No Cervical spine tenderness Thoracic/Lumbar Spine: thoraco-lumbar ROM normal, No pain with thoraco-lumbar ROM, No thoracic spinal tenderness and No lumbar spinal tenderness Extrem General: Yes normal to inspection, No calf tenderness Moderate edema to bilateral lower leg and ankle Skin General: warm and dry. Normal skin color. Normal skin turgor Lesions: no lesions Rashes: no rashes Trauma: no lacerations or abrasions Wounds: Small, round, stage II wound with pink would bed noted to the left 4th digit. No overt signs of infection Nails: normal Neuro General: patient oriented x3, gait normal and no focal neuro deficit Cranial nerves: Yes Equal, round and reactive pupils present Cognition (Neuro): normal cognition Gait exam (Neuro): Normal gait present Sensory Exam: No Sensory deficit (Neuro) Psych Appearance: grossly normal Affect: normal affect Attitude: cooperative Thought process: Normal thought process present Assessment and Plan Assessment & Plan (1) Iron deficiency anemia: Code(s): D50.9 - Iron deficiency anemia, unspecified Plan: Recent RBC and H&H is low, 3.24c and 9.6/29.6 respectively; slightly improved than previous levels Continue to take ferrous sulfate as prescribed Repeat CBC a few days before his next appointment in 2 weeks Follow-up in 2 weeks or return sooner with symptoms or concerns Verbalized understanding and agreed with treatment plan (2) Hypertension: Code(s): I10 - Essential (primary) hypertension Qualifiers: Hypertension type: primary hypertension Qualified Code(s): I10 - Essential (primary) hypertension Plan: Resting blood pressure is 126/70, within goal of less than 130/80 Continue current treatment regimen Low-sodium diet encouraged Monitor weight daily, report weight gain of 3 lb in 1 day or 5 lb in 1 week Follow-up with cardiology as planned Return in 2 weeks Verbalized understanding and agreed with treatment plan (3) Kidney disease: Code(s): N28.9 - Disorder of kidney and ureter, unspecified Plan: BUN/creatinine levels were elevated, 32/1.73; previous BUN/creatinine levels were elevated but below current levels Recent microalbumin/creatinine ratio is 1588.4 Will referred to Nephrology for further workup Will recheck BNP levels in 2 weeks. Advised to get blood work done before his next appointment Follow-up in 2 weeks Verbalized understanding and agreed with treatment plan (4) Hyperalbuminemia: Code(s): E88.09 - Other disorders of plasma-protein metabolism, not elsewhere classified Plan: As above (5) Wound, open, toe: Code(s): S91.109A - Unspecified open wound of unspecified toe(s) without damage to nail, initial encounter Plan: He was contacted by [facility] wound clinic but has not made an appointment for wound care Small, round, stage II wound with pink would bed noted to the left 4th digit. No overt signs of infection Instructed on importance of wound care especially being a diabetic Advised to call the wound care clinic today and make an appointment Verbalized understanding and agreed with the plan (6) High potassium: Code(s): E87.5 - Hyperkalemia Plan: Recent potassium level is normal, 5 Advised to continue to avoid potassium rich foods Continue current treatment regimen Will continue to monitor Verbalized understanding and agreed with treatment plan Orders: Orders Complete Blood Count no Diff 2 Weeks D50.9 - Iron deficiency anemia, unspecified Basic Metabolic Panel 2 Weeks N28.9 - Disorder of kidney and ureter, unspecified Referrals Nephrology Referral E11.9 - Type 2 diabetes mellitus without complications, E88.09 - Other disorders of plasma-protein metabolism, not elsewhere classified, N28.9 - Disorder of kidney and ureter, unspecified Coding Level of Care Code Est Pt Level 4 (95674) Diagnoses Iron deficiency anemia D50.9 Primary hypertension I10 Hypertension type: primary hypertension Kidney disease N28.9 Hyperalbuminemia E88.09 Wound, open, toe S91.109A High potassium E87.5
[2023-05-08 10:34] VITALS: BP 126/70
== END 2023-05-08 10:37 | disposition home or self-care (01) ==
PROVIDERS: PCP Nurse Practitioner Family; Visit Provider Nurse Practitioner Family
DX: D50.9 Iron deficiency anemia, unspecified (principal); I10 Essential (primary) hypertension; N28.9 Disorder of kidney and ureter, unspecified; E88.09 Other disorders of plasma-protein metabolism, not elsewhere classified; S91.109A Unspecified open wound of unspecified toe(s) without damage to nail, initial encounter; E87.5 Hyperkalemia
CPT/HCPCS: 99214

== ENCOUNTER 2023-05-11 09:14 | Outpatient (RCR) | payer OTHER, SELFPAY ==
--- NOTE | ~2023-05-11 | XR_ITS ---
EXAMINATION: XR FOOT, LEFT CLINICAL INFORMATION: Nonhealing DFU, attention fourth toe COMPARISON: None available. TECHNIQUE: AP, lateral, and oblique views of the left foot. FINDINGS: Skin defect is seen in the region of the fourth toe. There is no evidence of bone destruction periosteal reaction. No fracture. Alignment is anatomic. There is mild narrowing of the first metatarsophalangeal joint. Plantar calcaneal spur is seen. Small Achilles enthesophyte. Arterial calcification is noted. A few small ossific or calcific densities are seen adjacent to the talus. XR/XR foot LT min 3V IMPRESSION: 1. No evidence of osteomyelitis. 2. Mild degenerative change of the first metatarsophalangeal joint. 3. Plantar calcaneal spur.
[2023-05-18 10:28] LABS: MANUAL DIFF FLAG NO
[2023-05-18 11:07] LABS: Basophils Absolute Auto 0.1 X10*3/uL (0.0-0.2); Basophils Percent Auto 0.8 % (0-2); Eosinophils Absolute Auto 0.5 X10*3/uL (0.0-0.4); Eosinophils Percent Auto 4.1 % (0-4); Hemoglobin 10.4 g/dl (14.0-18.0); Imm Gran Abs Auto 0.05 X10*3/uL (0.00-0.03); Imm Gran Pct Auto 0.4 % (0.0-0.4); Lymphocytes Absolute Auto 2.9 X10*3/uL (1.2-4.9); Lymphocytes Percent Auto 24.2 % (20-40); Mean Corpuscular HGB Conc 32.5 g/dl (31.0-36.0); Mean Corpuscular Hemoglobin 30.1 pg (27.0-33.0); Mean Corpuscular Volume 92.8 fL (80.0-98.0); Mean Platelet Volume 12.6 fL (9.4-12.4); Monocytes Absolute Auto 0.7 X10*3/uL (0.1-1.2); Monocytes Percent Auto 5.9 % (2-11); Neutrophils Absolute Auto 7.7 x10*3/uL (2.0-8.3); Neutrophils Percent Auto 64.6 % (45-73); Platelet Count 241 X10*3/uL (160-400); Red Blood Count 3.45 X10*6/uL (4.60-5.80); Red Cell Distribution Width 12.6 % (11.0-16.0); White Blood Count 11.8 X10*3/uL (4.8-10.8)
[2023-05-18 11:54] LABS: Anion Gap 14 (12-20); Blood Urea Nitrogen 45 mg/dL (9-16); C Reactive Protein < 0.10 mg/dL (< or = 0.50); Calcium 9.3 mg/dL (8.4-10.2); Carbon Dioxide 24 mmol/L (22-29); Chloride 108 mmol/L (96-108); Estimated Glomerular Filt Rate 34; Glucose Random 171 mg/dL (60-115); Potassium 5.5 mmol/L (3.3-5.1); Sodium 140 mmol/L (135-145)
[2023-05-18 12:20] LABS: Erythrocyte Sedimentation Rate 62 MM/HR (0-15)
== END 2023-09-24 12:15 | disposition home or self-care (01) ==
LOC: HO.WCC 09:14
PROVIDERS: PCP Nurse Practitioner Family; Visit Provider Physician Assistant
DX: E11.621 Type 2 diabetes mellitus with foot ulcer (principal); L97.521 Non-pressure chronic ulcer of other part of left foot limited to breakdown of skin; E11.69 Type 2 diabetes mellitus with other specified complication; M86.9 Osteomyelitis, unspecified; E11.40 Type 2 diabetes mellitus with diabetic neuropathy, unspecified; I11.0 Hypertensive heart disease with heart failure; I50.30 Unspecified diastolic (congestive) heart failure; Z87.891 Personal history of nicotine dependence
CPT/HCPCS: 11042; 11044; 36415; 73630; 80048; 84134; 85025; 85652; 86140; 87070; 87077; 87186; 87205; 88304; 88305; 88311; 97597; 99212

== ENCOUNTER → 2023-05-19 13:53 | Outpatient (BNV) | payer OTHER, SELFPAY | PROVIDERS: PCP Nurse Practitioner Family; Visit Provider Internal Medicine Medical Oncology | DX: D64.9 Anemia, unspecified (principal) | CPT/HCPCS: 99204; 99213 ==

== ENCOUNTER 2023-05-20 11:17 | Outpatient (AMB) | payer OTHER, SELFPAY ==
[2023-05-20 11:30] VITALS: BP 130/70; PULSE 54; O2SAT 98; BMI 37.9
--- NOTE | 2023-05-20 11:30 | HO.NEPHOV_ITS ---
HPI HPI Comments History of Present Illness Details I had the privilege of seeing River in consultation for EZRA on a backdrop of chronic kidney disease. He has a diabetic and hypertensive with proteinuria. He recently had diastolic heart failure. His serum potassium has been recently high normal. He had been on angiotensin receptor leslie. He had been feeling lightheadedness. His blood pressure has been quite labile. His BMI has been high. He has been having an open wound on the toe which has been healing. He had been referred to Hematology for anemia. He has dyslipidemia. He denies any active chest pain, shortness of breath, paroxysmal nocturnal dyspnea, orthopnea, joint swellings, epistaxis, sinusitis, skin rashes, history of renal artery stenosis, history of carotid stenosis, large, vomiting, diarrhea, hematuria. He has been taking Jardiance. He had been on Lipitor and fenofibrate. His recent serum creatinine has been 1.9. [facility], [facility] Medical History Postoperative visit Necrotizing subcutaneous infection Hypertension Type 2 diabetes Surgical History Status post incision and drainage [place] teeth removed Family History Mother Diabetes Maternal Uncle Diabetes Sister Multiple sclerosis Social History Household Members: Spouse Housing: House Do you presently have visiting nurse or other home services: No Alcohol intake: current Alcohol intake frequency: a few times a week Alcohol type: beer Patient Tobacco Use Status: Former Tobacco user Quit Date: 2009 e-Cigarette/Vaping Use: Never Used Substance Use Type: Marijuana service: No Current occupational status: employed Current occupation: [employer] Cognitive needs: No Hearing needs: No Vision needs: No Vital Signs 05/20/23 11:30 Height 5 ft 8 in Weight 249 lb 8 oz BMI 37.9 BP 130/70 Blood Pressure Location Rt brachial Position Sitting Pulse 54 Pulse Source Pulse Oximeter Pulse Oximetry (%) 98 Oxygen Delivery Method Room Air Physical Exam Vital Signs: Last Vital Signs Pulse 54 05/20/23 11:30 BP 130/70 05/20/23 11:30 Pulse Ox 98 05/20/23 11:30 Oxygen Delivery Method Room Air 01/24/24 11:30 BMI result Body Mass Index 37.9 Const General: comfortable and no acute distress Orientation/consciousness: patient oriented x3 HEENT Head: Yes normocephalic Mouth: Normal oral and palatal mucosa present Eyes EOM: EOMs intact bilaterally Neck Neck: Yes supple Resp Auscultation: clear to auscultation bilaterally Cardio Jugular venous distension: no JVD Rate: regular rate GI Palpation (GI): Soft to palpation Auscultation: normal bowel sounds General: Yes no CVA tenderness Back/Spine/Pelvis Back: no CVA tenderness Skin General skin exam: no rashes or lesions noted Neuro General: patient oriented x3 and moves all extremities Extrem General: Yes no pedal edema Assessment & Plan Assessment & Plan (1) EZRA (acute kidney injury): Code(s): N17.9 - Acute kidney failure, unspecified (2) Hypertension: Code(s): I10 - Essential (primary) hypertension Qualifiers: Hypertension type: primary hypertension Qualified Code(s): I10 - Essential (primary) hypertension (3) CKD stage 3 due to type 2 diabetes mellitus: Code(s): E11.22 - Type 2 diabetes mellitus with diabetic chronic kidney disease; N18.30 - Chronic kidney disease, stage 3 unspecified (4) Diabetic nephropathy: Code(s): E11.21 - Type 2 diabetes mellitus with diabetic nephropathy Qualifiers: Diabetes mellitus type: type 2 Qualified Code(s): E11.21 - Type 2 di abetes mellitus with diabetic nephropathy Plan River has 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 He has obesity. He has history of poorly controlled diabetes mellitus. He has proteinuria. He recently had hospitalization for decompensated diastolic heart failure. He might have had tubular injury the time. He has history of open wo und in the leg which has been healing. There are no clinical signs of any active infection to suggest any dhruv infectious glomerulonephritis. His urine output is good. There is no recent suspect any obstructive uropathy. He has been on spironolactone and valsartan. I reduced the dose of both by 50%. He is on fenofibrate which I asked him to hold for now. He should be getting blood work and imaging studies. He may need a renal biopsy. He was counseled to maintain good blood pressure and good blood sugar control. All these have been discussed in detail. Further management is pending evolving data. All questions answered. Follow-up appointment given. Orders: Orders Complement C4 05/20/23 N17.9 - Acute kidney failure, unspecified Hepatitis B Surface Antibody 05/20/23 N17.9 - Acute kidney failure, unspecified Calcium 05/20/23 N17.9 - Acute kidney failure, unspecified Parathyroid Hormone Intact 05/20/23 N17.9 - Acute kidney failure, unspecified Anti DNA DS Antibody 05/20/23 N17.9 - Acute kidney failure, unspecified PT, INR - Anti Coag 05/20/23 N17.9 - Acute kidney failure, unspecified US renal BI 05/20/23 N17.9 - Acute kidney failure, unspecified Immunofixation Pnl, Serum 05/20/23 N17.9 - Acute kidney failure, unspecified Complement C3 05/20/23 N17.9 - Acute kidney failure, unspecified Hepatitis B Core Antibody 05/20/23 N17.9 - Acute kidney failure, unspecified Hepatitis C Antibody Reflex 05/20/23 N17.9 - Acute kidney failure, unspecified Hepatitis B Surface Antigen 05/20/23 N17.9 - Acute kidney failure, unspecified HIV Ab/Ag 05/20/23 N17.9 - Acute kidney failure, unspecified Protein Creatinine Ratio, Ur 05/20/23 N17.9 - Acute kidney failure, unspecified Hemoglobin A1c 05/20/23 N17.9 - Acute kidney failure, unspecified Phosphorus 05/20/23 N17.9 - Acute kidney failure, unspecified Vitamin D 25-OH Total 05/20/23 N17.9 - Acute kidney failure, unspecified Anti Glomerular Basement Memb 05/20/23 N17.9 - Acute kidney failure, unspecified Proteinase 3 PR3 Antibodies 05/20/23 N17.9 - Acute kidney failure, unspecified Myeloperoxidase Antibody 05/20/23 N17.9 - Acute kidney failure, unspecified Streptolysin O Antibody 05/20/23 N17.9 - Acute kidney failure, unspecified Phospholipase A2 Receptor Pnl 05/20/23 N17.9 - Acute kidney failure, unspecified Complete Blood Count Auto Diff 05/20/23 N17.9 - Acute kidney failure, unspecified Coding Level of Care Code New Pt Level 4 (92969) Diagnoses EZRA (acute kidney injury) N17.9 Primary hypertension I10 Hypertension type: primary hypertension CKD stage 3 due to type 2 diabetes mellitus E11.22; N18.30 Diabetic nephropathy associated with type 2 diabetes mellitus E11.21 Diabetes mellitus type: type 2
== END 2023-05-20 12:14 | disposition home or self-care (01) ==
PROVIDERS: PCP Nurse Practitioner Family; Visit Provider Internal Medicine Nephrology
DX: N17.9 Acute kidney failure, unspecified (principal); I10 Essential (primary) hypertension; E11.22 Type 2 diabetes mellitus with diabetic chronic kidney disease; N18.30 Chronic kidney disease, stage 3 unspecified; E11.21 Type 2 diabetes mellitus with diabetic nephropathy
CPT/HCPCS: 99204

== ENCOUNTER → 2023-05-20 11:17 | Outpatient (BNVA) | payer OTHER, SELFPAY | PROVIDERS: PCP Nurse Practitioner Family; Visit Provider Internal Medicine Nephrology ==

== ENCOUNTER 2023-05-25 07:38 | Outpatient (REF) | payer OTHER, SELFPAY ==
[2023-05-25 08:17] LABS: Hemoglobin 9.4 g/dl (14.0-18.0); Mean Corpuscular HGB Conc 32.4 g/dl (31.0-36.0); Mean Corpuscular Hemoglobin 29.1 pg (27.0-33.0); Mean Corpuscular Volume 89.8 fL (80.0-98.0); Mean Platelet Volume 12.1 fL (9.4-12.4); Platelet Count 246 X10*3/uL (160-400); Red Blood Count 3.23 X10*6/uL (4.60-5.80); Red Cell Distribution Width 12.3 % (11.0-16.0); White Blood Count 10.7 X10*3/uL (4.8-10.8)
[2023-05-25 08:58] LABS: Anion Gap 12 (12-20); Blood Urea Nitrogen 46 mg/dL (9-16); Calcium 9.2 mg/dL (8.4-10.2); Carbon Dioxide 20 mmol/L (22-29); Chloride 110 mmol/L (96-108); Estimated Glomerular Filt Rate 36; Glucose Random 134 mg/dL (60-115); Potassium 5.2 mmol/L (3.3-5.1); Sodium 137 mmol/L (135-145)
== END 2023-05-25 07:39 | disposition home or self-care (01) ==
LOC: HO.LAB 07:38
PROVIDERS: PCP Nurse Practitioner Family; Visit Provider Nurse Practitioner Family
DX: D50.9 Iron deficiency anemia, unspecified (principal); N28.9 Disorder of kidney and ureter, unspecified
CPT/HCPCS: 36415; 80048; 85027

== ENCOUNTER 2023-05-25 11:29 | Outpatient (AMB) | payer OTHER, SELFPAY ==
[2023-05-25 11:43] VITALS: BP 144/68; PULSE 64; RESP 13; TEMP 36.3; O2SAT 99; BMI 37.1
--- NOTE | 2023-05-25 11:43 | A.OFFPC_ITS ---
Vital Signs 05/25/23 11:43 05/25/23 12:28 Height 5 ft 8 in Weight 244 lb 2 oz BMI 37.1 BP 144/68 H 114/60 Blood Pressure Location Rt brachial Lt brachial Position Sitting Sitting Respiration 13 Pulse 64 Pulse Source Pulse Oximeter Temp 97.4 F Temp Source Temporal Artery Scan Pulse Oximetry (%) 99 Oxygen Delivery Method Room Air Intake Visit Reasons: 2 wks anemia, kidney disease Chapter Relations Administrator Required: No Accompanied by: Self / Same As Patient Allergies No Known Allergies Allergy (Verified 05/25/23 12:10) Medication List - Last Reconciled 05/25/23 by Quique Tatum CNP atorvastatin 40 mg PO BEDTIME 30 days blood sugar diagnostic (FreeStyle Lite Strips) Test four times a day or as directed. blood-glucose meter (FreeStyle Lite Meter kit) As Directed carvedilol 12.5 mg PO BID comp.stocking,knee,long,medium As directed empagliflozin 10 mg PO DAILY fenofibrate 54 mg PO DAILY 90 days ferrous sulfate 325 mg PO TID 30 days fluticasone propionate 50 mcg/actuation (Flonase Allergy Relief) 1 spray intranasal BID PRN furosemide 40 mg PO QAM insulin glargine (Basaglar KwikPen U-100 Insulin) 15 units subcut BEDTIME lancets (FreeStyle Lancets) TEST FOUR TIMES A DAY OR DIRECTED. metformin 1,000 mg PO BID multivitamin 1 tab PO DAILY omega-3 fatty acids 1,000 mg PO TID pen needle, diabetic (BD Toshia 2nd Gen Pen Needle) USE FOUR TIMES A DAY OR DIRECTED. spironolactone 12.5 mg PO DAILY valsartan 80 mg PO BID zinc acetate 50 mg (2 x 25 mg (zinc)) PO BID 3 months Tobacco use date assessed: 05/08/23 Dental Screening Dental Screen Date: 05/25/23 Did you have a dental visit in the last 12 months?: No Did you have a dental problem in the last 6 months where you did not have access to dental care?: No Was dental information given to patient?: Patient has dentist HPI HPI Comments History of Present Illness Details 52-year-old male presents for anemia and kidney disease follow up He was seen by Nephrology on 05/20/2023 and Hematology on 05/20/2023 He notes that Neprology decreased spironolactone to 12.5mg daily and decreased valsartan to 80mg daily; he was advised to hold fenofibrate He has an appointment with GI on 10/01/2023. He was referred by Hematology He goes to the wound clinic weekly for wound to left 4th toe He offers no complaints and denies acute symptoms [facility] Medical History Postoperative visit Necrotizing subcutaneous infection Hypertension Type 2 diabetes Surgical History Status post incision and drainage [place] teeth removed Family History (Updated 05/25/23 @ 11:51 by Saranya Miller MA) Mother Diabetes Maternal Uncle Diabetes Sister Multiple sclerosis Social History Household Members: Spouse Housing: House Do you presently have visiting nurse or other home services: No Alcohol intake: current Alcohol intake frequency: a few times a week Alcohol type: beer Patient Tobacco Use Status: Former Tobacco user Quit Date: 2009 e-Cigarette/Vaping Use: Never Used Substance Use Type: Marijuana service: No Current occupational status: employed Current occupation: [employer] Cognitive needs: No Hearing needs: No Vision needs: No Questionnaire Thrive Questionnaire Date Thrive assessed: 05/06/23 UTE-7 AMB Questionnaire UTE-7 Date UTE - 7 assessed: 05/08/23 Source: Developed by Drs. Higinio Rdoriguez, Olivia Rayo, Edilberto Freeman and colleagues, with an educational smitha from [employer]. Review of Systems Const Details: Const Denies chills, Denies fatigue, Denies fever(s), Denies headache(s) and Denies weakness ENT Denies dizziness and Denies headache(s) Card Denies chest pain, Denies lightheadedness, Denies dyspnea and Denies other (Palpitations) Resp Denies cough, Denies dyspnea, Denies wheezing and Denies other ( shortness of breath) GI Denies abdominal pain, Denies melena, Denies hematochezia, Denies change in bowel habits, Denies dyspepsia and Denies nausea Denies hematuria and Denies dysuria Musc Denies abnormal gait, Denies myalgias, Denies arthralgias, Denies numbness and Denies tingling Skin/Breast Denies rash, Denies unusual bruising and Denies wounds Neuro Denies abnormal gait, Denies dizziness, Denies headache(s), Denies memory loss, Denies numbness, Denies Sensory deficit (Neuro), Denies tingling and Denies weakness Psych Denies anxiety, Denies depression, Denies memory loss Endo Denies cold intolerance, Denies fatigue, Denies heat intolerance, Denies polydipsia and Denies polyuria Aller/Immun Denies wheezing Physical exam (Primary Care) Vital Signs: Last Vital Signs Temp 97.4 F 05/25/23 11:43 Pulse 64 05/25/23 11:43 Resp 13 05/25/23 11:43 BP 144/68 H 05/25/23 11:43 Pulse Ox 99 05/25/23 11:43 Oxygen Delivery Method Room Air 05/25/23 11:43 BMI result Body Mass Index 37.1 Tobacco/Smoking Status: Tobacco use Status Tobacco use date assessed 05/08/23 05/25/23 11:51 Patient Tobacco Use Status Former Tobacco user 05/25/23 11:51 Tobacco use type 04/13/23 11:08 e-Cigarette/Vaping Use Never Used 05/25/23 11:51 Thrive Assessment: Date of Thrive Assessment Date Thrive assessed 05/06/23 05/25/23 11:51 Const Other: General: no acute distress and well developed Nutritional Appearance: well nourished Orientation/consciousness: patient oriented x3 HENMT Head: Yes normocephalic and Yes atraumatic Eyes General: appearance normal, both eyes and all related structures Pupils: Equal, round and reactive pupils present EOM: EOMs intact bilaterally Resp Effort & Inspection: normal respiratory effort Auscultation: clear to auscultation bilaterally Cardio Rate: regular rate Rhythm: regular rhythm Heart sounds: S1 normal heart sound present, S2 normal heart sound present, no gallops, no murmurs and no rubs GI Palpation (GI): No Abdominal aortic bruit present, Soft to palpation, nontender, No hepatosplenomegaly present and No Rebound tenderness present Auscultation: normal bowel sounds General: Yes no CVA tenderness Back/Spine/Pelvis Back: no CVA tenderness Cervical Spine: cervical ROM normal and No Cervical spine tenderness Thoracic/Lumbar Spine: thoraco-lumbar ROM normal, No pain with thoraco-lumbar ROM, No thoracic spinal tenderness and No lumbar spinal tenderness Extrem General: Yes normal to inspection, No edema and No calf tenderness Skin General: warm and dry. Normal skin color. Normal skin turgor Neuro General: patient oriented x3, gait normal and no focal neuro deficit Cranial nerves: Yes Equal, round and reactive pupils present Cognition (Neuro): normal cognition Gait exam (Neuro): Normal gait present Sensory Exam: No Sensory deficit (Neuro) Psych Appearance: grossly normal Affect: normal affect Attitude: cooperative Thought process: Normal thought process present Assessment and Plan Assessment & Plan (1) Iron deficiency anemia: Code(s): D50.9 - Iron deficiency anemia, unspecified Plan: Recent RBC and H&H are slightly lower than previous, 3.23 and 9.4/29.0 Continue current treatment regimen Continue follow-up with Hematology as planned Follow-up with symptoms or concerns Verbalized understanding and agreed with treatment plan (2) EZRA (acute kidney injury): Code(s): N17.9 - Acute kidney failure, unspecified Plan: Recent BUN and creatinine level are elevated, 46/1.9 respectively Continue current treatment regimen Continue follow-up with Nephrology as planned Return with symptoms or concerns Verbalized understanding and agreed with treatment plan (3) High potassium: Code(s): E87.5 - Hyperkalemia Plan: Recent potassium level was slightly elevated, 5.2, likely due to kidney injury Continue current treatment regimen Advised to continue to avoid foods reaching potassium Follow-up with Nephrology as planned Will recheck CBC. Advised to get blood work done before next visit Verbalized understanding and agreed with plan (4) Hypertension: Code(s): I10 - Essential (primary) hypertension Qualifiers: Hypertension type: primary hypertension Qualified Code(s): I10 - Essential (primary) hypertension Plan: Resting blood pressure is 114/60, within goal of less than 130/70 Continue current treatment regimen Low-sodium diet encouraged Follow-up in 1 month Verbalized understanding and agreed with treatment plan Orders: Orders Complete Blood Count Auto Diff 1 Month D50.9 - Iron deficiency anemia, unspecified, E87.5 - Hyperkalemia Medications: Changed From spironolactone 25 mg PO DAILY 30 tabs 0RF To spironolactone 12.5 mg PO DAILY From valsartan REPLACES LOSARTAN 160 mg PO BID 60 tabs 0RF To valsartan REPLACES LOSARTAN 80 mg PO BID Coding Level of Care Code Est Pt Level 4 (22446) Diagnoses Iron deficiency anemia D50.9 EZRA (acute kidney injury) N17.9 High potassium E87.5 Primary hypertension I10 Hypertension type: primary hypertension
[2023-05-25 12:28] VITALS: BP 114/60
== END 2023-05-25 12:37 | disposition home or self-care (01) ==
PROVIDERS: PCP Nurse Practitioner Family; Visit Provider Nurse Practitioner Family
DX: D50.9 Iron deficiency anemia, unspecified (principal); N17.9 Acute kidney failure, unspecified; E87.5 Hyperkalemia; I10 Essential (primary) hypertension
CPT/HCPCS: 99214

== ENCOUNTER 2023-06-03 08:03 | Outpatient (REF) | payer OTHER, SELFPAY ==
[2023-06-03 08:28] LABS: MANUAL DIFF FLAG NO
[2023-06-03 08:42] LABS: Basophils Absolute Auto 0.1 X10*3/uL (0.0-0.2); Basophils Percent Auto 0.6 % (0-2); Eosinophils Absolute Auto 0.4 X10*3/uL (0.0-0.4); Eosinophils Percent Auto 3.4 % (0-4); Hematocrit 30.7 % (42.0-52.0); Imm Gran Abs Auto 0.05 X10*3/uL (0.00-0.03); Imm Gran Pct Auto 0.4 % (0.0-0.4); Lymphocytes Absolute Auto 3.1 X10*3/uL (1.2-4.9); Lymphocytes Percent Auto 25.6 % (20-40); Mean Corpuscular HGB Conc 32.6 g/dl (31.0-36.0); Mean Corpuscular Hemoglobin 29.2 pg (27.0-33.0); Mean Corpuscular Volume 89.5 fL (80.0-98.0); Mean Platelet Volume 11.3 fL (9.4-12.4); Monocytes Absolute Auto 0.7 X10*3/uL (0.1-1.2); Monocytes Percent Auto 5.8 % (2-11); Neutrophils Absolute Auto 7.8 x10*3/uL (2.0-8.3); Neutrophils Percent Auto 64.2 % (45-73); Platelet Count 267 X10*3/uL (160-400); Red Blood Count 3.43 X10*6/uL (4.60-5.80); Red Cell Distribution Width 12.4 % (11.0-16.0); White Blood Count 12.1 X10*3/uL (4.8-10.8)
[2023-06-03 08:53] LABS: Estimated Average Glucose 126 mg/dL
[2023-06-03 09:10] LABS: Creatinine Urine 196.28 mg/dL; Protein/Creatinine Ratio, Ur 0.92 (<0.2); Total Protein Urine Random 181 mg/dL (<12)
[2023-06-03 09:13] LABS: Parathyroid Hormone Intact 111.1 pg/mL (8.7-77.1)
[2023-06-03 09:14] LABS: Calcium 9.7 mg/dL (8.4-10.2); Phosphorus 5.8 mg/dL (2.7-4.5)
[2023-06-03 09:31] LABS: Vitamin D 25-OH Total 21.9 ng/mL (>30)
[2023-06-03 09:39] LABS: HBc Num1 0.15 S/CO (0.00-0.79); Hepatitis B Core Antibody Nonreactive (Nonreactive)
[2023-06-03 10:11] LABS: HBS Num1 30.05 mIU/mL (0-7.99); Hepatitis B Surface Antigen Negative (Negative); ~HepC Num1 0.09 S/CO (0.00-0.79); ~Hepatitis B Surface Antibody REACTIVE (Nonreactive); ~Hepatitis C Antibody Nonreactive (Nonreactive)
[2023-06-04 08:02] LABS: HIV AB/AG Nonreactive (Nonreactive); HIV Num 1 0.06 S/CO (0.00-0.99)
[2023-06-04 11:47] LABS: Complement C3 192 mg/dL (82-185)
[2023-06-04 16:15] LABS: Streptolysin O Antibody 66 IU/mL (<200)
[2023-06-04 18:24] LABS: Anti DNA DS Antibody <1 IU/mL; Anti Glomerular Basement Memb <1.0 AI; Myeloperoxidase Antibody <1.0 AI; Proteinase 3 PR3 Antibodies <1.0 AI
[2023-06-05 15:08] LABS: IgA 267 mg/dL (47-310); IgG 2222 mg/dL (600-1640); IgM 116 mg/dL (50-300)
[2023-06-17 13:14] LABS: Phospholipase A2 IgG ELISA <4 RU/mL; Phospholipase A2 IgG IFA NEGATIVE (NEGATIVE)
== END 2023-06-03 08:04 | disposition home or self-care (01) ==
LOC: HO.LAB 08:03
PROVIDERS: PCP Nurse Practitioner Family; Visit Provider Internal Medicine Nephrology
DX: Z11.4 Encounter for screening for human immunodeficiency virus [HIV] (principal); N17.9 Acute kidney failure, unspecified
CPT/HCPCS: 36415; 82306; 82310; 82570; 82784; 83036; 83520; 83970; 84100; 84156; 85025; 86021; 86060; 86160; 86225; 86255; 86334; 86704; 86706; 86803; 87340; 87389

== ENCOUNTER 2023-06-04 13:47 | Outpatient (REF) | payer OTHER, SELFPAY ==
--- NOTE | ~2023-06-04 | US_ITS ---
EXAMINATION: US RETROPERITONEAL LIMITED (RENAL ONLY) CLINICAL INFORMATION: ARF. COMPARISON: None available. TECHNIQUE: Acute kidney failure. FINDINGS: RIGHT KIDNEY: 10.8 x 6.0 x 6.4 cm (SAG x AP x TRV). The kidney is normal in size, contour, and echogenicity. Renal cortical thickness is normal. No calculi or focal parenchymal lesions. No hydronephrosis. LEFT KIDNEY: 12.0 x 6.4 x 5.6 cm (SAG x AP x TRV). The kidney is normal in size, contour, and echogenicity. Renal cortical thickness is normal. No calculi or focal parenchymal lesions. No hydronephrosis. US/US renal BI IMPRESSION: Unremarkable renal ultrasound.
== END 2023-06-04 13:48 | disposition home or self-care (01) ==
LOC: HO.US 13:47
PROVIDERS: PCP Nurse Practitioner Family; Visit Provider Internal Medicine Nephrology
DX: N17.9 Acute kidney failure, unspecified (principal)
CPT/HCPCS: 76775

== ENCOUNTER → 2023-06-09 08:10 | Outpatient (REF) | payer OTHER, SELFPAY ==
--- NOTE | ~2023-06-09 | NM_ITS ---
Lexiscan Myocardial perfusion study Indication: Congestive heart failure, assess for ischemia Technique: The patient was brought in for a Lexiscan perfusion study on 06/09/2023 and was injected 0.4 mg of Lexiscan intravenously. Within a minute of this injection 40 mCi of sestamibi was given intravenously. Images were obtained using the SPECT gamma camera interlaced with the gating device. Images were obtained in supine position. Resting perfusion study was performed on 02/08/2024. Patient was administered 40 mCi of sestamibi intravenously at rest. Images were then obtained in supine position. Images were processed with the software and compared side to side in short axis, horizontal long axis and vertical long axis views. Total DLP 170mGy-cm. Findings: Raw acquisition reviewed. The stress perfusion study showed diminished tracer uptake in the basal part of inferior wall. There is improvement with CT attenuation correction suggestive of diaphragmatic attenuation artifact. The gated study shows mildly diminished LV systolic function with calculated LVEF of 49%. LV cavity is normal in size. The gated study shows basal inferior akinesis. Resting study shows diminished tracer uptake in the basal part of inferior wall. There is improvement with CT attenuation correction suggestive of diaphragmatic attenuation artifact. Gating at rest reveals basal inferior akinesis with ejection fraction at 54%. The findings are consistent with fixed basal inferior defect with improvement during CT attenuation correction. Possible diaphragmatic attenuation artifact. NM/NM cardiolite stress test Impression: 1. Myocardial perfusion imaging study shows fixed basal inferior defect with improvement during CT attenuation correction, but also showing regional akinesis on gating. Possibly diaphragmatic attenuation artifact but can't exclude old basal inferior infarct. 2. Gated LVEF is 49% during stress and 54% during rest. 3. Transient ischemic dilatation not present. EKG component of the test reported separately.
--- NOTE | 2023-06-09 08:13 | CA_ITS ---
Acquisition Time: 2023-06-09 08:23:31 Total Exercise Time: 00:02:29 Test Indications: HEART FAILURE Medications: SEE DISCHARGE SUMMARY Protocol: KRISTI Max HR: 100 BPM 58% of Pred: 170 BPM Max BP: 158/062 mmHG Max Work Load: 4.6 METS Exercise stress test exercise 2 min 29 sec of Kristi protocol 58% MPHR, with request to stop due to fatigue, shortness of breath, and foot wound pain with mild to moderate SOB, no chest discomfort, with isolated PVC, with normotensive response to exercise, with nondiagnoisitic EKGs. Patient assisted to chair Once breathing returned to normal test changed ot Lexiscan. Pharmacological stress test with Lexiscan injection while sitting and kicking his legs, without anginal symptoms, without arhythmias, with normotensive resposne to injection, with nondiagnostic EKGs. Nuclear images pending. Test reviewed with Dr. Dixon. Referred By: Jonnathan Pineda Overread By: Daxa Olivas
== END ==
LOC: HO.CARD 08:10
PROVIDERS: PCP Nurse Practitioner Family; Visit Provider Internal Medicine Cardiovascular Disease
DX: I50.9 Heart failure, unspecified (principal); R06.09 Other forms of dyspnea
CPT/HCPCS: 78452; 93017; A9500; J0280; J2785

== ENCOUNTER → 2023-06-09 08:13 | Outpatient (BNV) | payer OTHER, SELFPAY | PROVIDERS: PCP Nurse Practitioner Family; Visit Provider Nurse Practitioner | DX: I50.9 Heart failure, unspecified (principal); R06.02 Shortness of breath | CPT/HCPCS: 78452; 93016; 93018 ==

== ENCOUNTER 2023-06-12 14:09 | Outpatient (AMB) | payer OTHER, SELFPAY ==
--- NOTE | 2023-06-12 14:11 | MHC.OFFVIS ---
Intake Vital Signs 06/12/23 14:12 Height 5 ft 8 in Weight 242 lb 15.19 oz BMI 36.9 BP 142/62 H Blood Pressure Location Lt brachial Position Sitting Pulse 54 Pulse Source Pulse Oximeter Intake Visit Reasons: fu Intake Note: pt its here for a f/up pt states that he its doing fine. Accompanied by: Self / Same As Patient Allergies No Known Allergies Allergy (Verified 05/25/23 12:10) Medication List - Last Reconciled 06/12/23 by HOANG Loaiza atorvastatin 40 mg PO BEDTIME 30 days blood sugar diagnostic (FreeStyle Lite Strips) Test four times a day or as directed. blood-glucose meter (FreeStyle Lite Meter kit) As Directed carvedilol 12.5 mg PO BID comp.stocking,knee,long,medium As directed empagliflozin 10 mg PO DAILY fenofibrate 54 mg PO DAILY 90 days ferrous sulfate 325 mg PO TID 30 days fluticasone propionate 50 mcg/actuation (Flonase Allergy Relief) 1 spray intranasal BID PRN furosemide 40 mg PO QAM insulin glargine (Basaglar KwikPen U-100 Insulin) 15 units subcut BEDTIME lancets (FreeStyle Lancets) TEST FOUR TIMES A DAY OR DIRECTED. metformin 1,000 mg PO BID multivitamin 1 tab PO DAILY omega-3 fatty acids 1,000 mg PO TID pen needle, diabetic (BD Toshia 2nd Gen Pen Needle) USE FOUR TIMES A DAY OR DIRECTED. spironolactone 12.5 mg (1/2 x 25 mg) PO DAILY 30 days valsartan 80 mg PO BID zinc acetate 50 mg (2 x 25 mg (zinc)) PO BID 3 months HPI fu HPI Details River is a 52-year-old male with past medical history of hypertension, hyperlipidemia, diabetes, obesity, chronic kidney disease who was recently admitted to [facility] with increasing shortness of breath, fatigue and leg swelling. Was treated for acute diastolic heart failure. He was diuresed and sent home with Lasix 40 mg daily as well as meds for neurohormonal modulation. An outpatient nuclear stress test was done and he now presents for follow-up. Today he reports has been doing generally well since his hospital discharge. He says his breathing is back to normal. He denies cough, PND, orthopnea or edema. No chest discomfort at rest or with activity. No heart palpitations, presyncope, syncope, falls. He had been experiencing lightheadedness and his flatbed company driver cut back his Aldactone and valsartan doses by half. This improved his symptom of lightheadedness. He works nights at the [employer] and has broken sleep during the day. Does not have known sleep apnea. He has been compliant with all his medications. [facility] Medical History Postoperative visit Necrotizing subcutaneous infection Hypertension Type 2 diabetes Surgical History Status post incision and drainage [place] teeth removed Family History Mother Diabetes Maternal Uncle Diabetes Sister Multiple sclerosis Social History Household Members: Spouse Housing: House Do you presently have visiting nurse or other home services: No Alcohol intake: current Alcohol intake frequency: a few times a week Alcohol type: beer Patient Tobacco Use Status: Former Tobacco user Quit Date: 2009 e-Cigarette/Vaping Use: Never Used Substance Use Type: Marijuana service: No Current occupational status: employed Current occupation: [employer] Cognitive needs: No Hearing needs: No Vision needs: No Review of Systems Const All systems reviewed & are unremarkable except as noted in HPI and below Denies chills, Denies fatigue, Denies fever(s), Denies frequent falls, Denies weakness, Denies weight gain and Denies weight loss ENT Reports dizziness Card Denies chest pain, Denies leg edema, Denies lightheadedness, Denies palpitations, Denies dyspnea and Denies dyspnea on exertion Resp Denies cough, Denies dyspnea and Denies dyspnea on exertion GI Denies hematochezia Musc Denies abnormal gait, Denies muscle weakness, Denies numbness, Denies radiating pain into limb and Denies tingling Neuro Denies abnormal gait, Reports dizziness, Denies frequent falls, Denies numbness, Denies tingling and Denies weakness Endo Denies fatigue and Denies palpitations Physical Exam Vital Signs: Last Vital Signs Pulse 54 06/12/23 14:12 BP 142/62 H 06/12/23 14:12 BMI result Body Mass Index 36.9 Const General: cooperative, healthy appearing, comfortable and no acute distress Orientation/consciousness: patient oriented x3 Neck Neck: Yes normal visual inspection Resp Effort & Inspection: normal respiratory effort Auscultation: clear to auscultation bilaterally, no crackles, no rales, no rhonchi and no wheezes Cardio Jugular venous distension: no JVD Rate: regular rate Rhythm: regular rhythm Heart sounds: S1 normal heart sound present, S2 normal heart sound present, no murmurs and no rubs Neuro General: patient oriented x3 Extrem General: Yes normal to inspection and No no pedal edema Psych Appearance: grossly normal Mental Status: mental status grossly normal Speech and movement: Normal speech and movement present Assessment & Plan Assessment & Plan (1) Acute heart failure with preserved ejection fraction (HFpEF): Code(s): I50.31 - Acute diastolic (congestive) heart failure Plan: Recent [facility] [place] for acute diastolic heart failure. BNP was elevated at 491. Chest x-ray showed evidence of fluid overload. Echocardiogram showed EF 50-55% with restrictive filling pattern, mildly dilated left atrium, normal valves, mildly elevated right atrial pressures, mild increase in the LV wall thickness. Echo changes likely related to uncontrolled hypertension. He was diuresed with IV Lasix and sent home with Lasix 40 mg daily, Aldactone, carvedilol, valsartan and Jardiance. He says he had been experiencing some lightheadedness and his flatbed company driver reduce the doses of Aldactone and valsartan by half. His lightheadedness symptom has improved. An outpatient nuclear stress test was done on 06/10/2023 showing a fixed basilar inferior defect which could be diaphragm attenuation however old basal infarct can not be excluded, no ischemia. Today he states he is feeling good and breathing is back to normal. Blood pressure today initially 142/62, recheck done by me 136/62. Last labs in our system 05/25/2023 shows potassium 5.2, creatinine 1.98. Will continue on valsartan at present. Will not change to Entresto yet. Instructed to obtain lab work including CMP, BNP and lipids. Continue on carvedilol, Jardiance, Aldactone as well as the valsartan. Signs and symptoms of heart failure reviewed with him. Instructed to call if he has any signs of fluid overload and emergency care if needed. Spent time going over his diagnosis in detail. Cardiology follow-up in 3 months, sooner if needed. (2) Uncontrolled hypertension: Code(s): I10 - Essential (primary) hypertension Plan: Blood pressure better controlled at present. Recheck done by me this visit is 136/62. He is on good medication management. Will need to check kidney function and electrolyte before making any further adjustments (3) EZRA (acute kidney injury): Code(s): N17.9 - Acute kidney failure, unspecified Plan: Following with Nephrology (4) Hypersomnia: Code(s): G47.10 - Hypersomnia, unspecified Plan: Patient admits to not sleeping well in the daytime. He works nights full-time. With his uncontrolled hypertension will evaluate for obstructive sleep apnea with home sleep study. Does have an appointment already set up with the sleep specialist in June. (5) Hospital discharge follow-up: Code(s): Z09 - Encounter for follow-up examination after completed treatment for conditions other than malignant neoplasm Plan: Time spent on chart review, documentation, interview and assessment Orders: Orders RT home sleep study Today G47.10 - Hypersomnia, unspecified B Type Natriuretic Peptide Today I50.9 - Heart failure, unspecified Lipid Panel Today E11.9 - Type 2 diabetes mellitus without complications, E78.2 - Mixed hyperlipidemia Comprehensive Met. Panel Today I50.31 - Acute diastolic (congestive) heart failure Medications: New valsartan take 1 tablet twice daily 80 mg PO BID 60 tabs 4RF Changed From spironolactone 12.5 mg PO DAILY To spironolactone 12.5 mg (1/2 x 25 mg) PO DAILY 30 days 15 tabs 5RF Coding Level of Care Code Est Pt Level 4 (80087) Diagnoses Acute heart failure with preserved ejection fraction (HFpEF) I50.31 Uncontrolled hypertension I10 EZRA (acute kidney injury) N17.9 Hypersomnia G47.10 Hospital discharge follow-up Z09 Time Spent (min) 30
[2023-06-12 14:12] VITALS: BP 142/62; PULSE 54; BMI 36.9
== END 2023-06-12 14:51 | disposition home or self-care (01) ==
PROVIDERS: PCP Nurse Practitioner Family; Visit Provider Nurse Practitioner Family
DX: I50.31 Acute diastolic (congestive) heart failure (principal); I10 Essential (primary) hypertension; N17.9 Acute kidney failure, unspecified; G47.10 Hypersomnia, unspecified; Z09 Encounter for follow-up examination after completed treatment for conditions other than malignant neoplasm
CPT/HCPCS: 99214

== ENCOUNTER → 2023-06-12 14:09 | Outpatient (BNVA) | payer OTHER, SELFPAY | PROVIDERS: PCP Nurse Practitioner Family; Visit Provider Nurse Practitioner Family ==

== ENCOUNTER 2023-06-17 10:02 | Outpatient (AMB) | payer OTHER, SELFPAY ==
--- NOTE | 2023-06-17 10:15 | HO.NEPHOV_ITS ---
HPI HPI Comments History of Present Illness Details I had the privilege of seeing River in follow up for EZRA on a backdrop of chronic kidney disease. He has a diabetic and hypertensive with proteinuria. He recently had diastolic heart failure. His serum potassium has been recently high normal. He had been on angiotensin receptor leslie. He had been feeling lightheadedness and his spironolactone and ARB had been reduced by 50 % with improvement in symptoms. His BMI has been high. He has been having an open wound on the toe which has been healing. He thinks he may have osteomyelitis and is going to see wound care. He denies any active chest pain, shortness of breath, paroxysmal nocturnal dyspnea, orthopnea, joint swellings, epistaxis, sinusitis, skin rashes, history of renal artery stenosis, history of carotid stenosis, large, vomiting, diarrhea, hematuria. He has been taking Jardiance. He had been on Lipitor and his fenofibrate has been put on hold since last visit. His recent serum creatinine has been 1.9 PFSH Medical History Postoperative visit Necrotizing subcutaneous infection Hypertension Type 2 diabetes Surgical History Status post incision and drainage [place] teeth removed Family History Mother Diabetes Maternal Uncle Diabetes Sister Multiple sclerosis Social History Household Members: Spouse Housing: House Do you presently have visiting nurse or other home services: No Alcohol intake: current Alcohol intake frequency: a few times a week Alcohol type: beer Patient Tobacco Use Status: Former Tobacco user Quit Date: 2009 e-Cigarette/Vaping Use: Never Used Substance Use Type: Marijuana service: No Current occupational status: employed Current occupation: [employer] Cognitive needs: No Hearing needs: No Vision needs: No Vital Signs 06/17/23 10:17 Height 5 ft 8 in Weight 245 lb 6 oz BMI 37.3 BP 96/40 L Blood Pressure Location Rt brachial Position Sitting Pulse 55 Pulse Source Pulse Oximeter Pulse Oximetry (%) 98 Oxygen Delivery Method Room Air Physical Exam Vital Signs: Last Vital Signs Pulse 55 06/17/23 10:17 BP 96/40 L 06/17/23 10:17 Pulse Ox 98 06/17/23 10:17 Oxygen Delivery Method Room Air 06/17/23 10:17 BMI result Body Mass Index 37.3 Const General: comfortable and no acute distress Orientation/consciousness: patient oriented x3 HEENT Head: Yes normocephalic Mouth: Normal oral and palatal mucosa present Eyes EOM: EOMs intact bilaterally Neck Neck: Yes supple Resp Auscultation: clear to auscultation bilaterally Cardio Jugular venous distension: no JVD Rate: regular rate GI Palpation (GI): Soft to palpation Auscultation: normal bowel sounds General: Yes no CVA tenderness Back/Spine/Pelvis Back: no CVA tenderness Skin General skin exam: no rashes or lesions noted Neuro General: patient oriented x3 and moves all extremities Extrem General: Yes no pedal edema Assessment & Plan Assessment & Plan (1) CKD stage 3 due to type 2 diabetes mellitus: Code(s): E11.22 - Type 2 diabetes mellitus with diabetic chronic kidney disease; N18.30 - Chronic kidney disease, stage 3 unspecified (2) Diabetic nephropathy: Code(s): E11.21 - Type 2 diabetes mellitus with diabetic nephropathy Qualifiers: Diabetes mellitus type: type 2 Qualified Code(s): E11.21 - Type 2 diabetes mellitus with diabetic nephropathy (3) EZRA (acute kidney injury): Code(s): N17.9 - Acute kidney failure, unspecified (4) Hypertension: Code(s): I10 - Essential (primary) hypertension Qualifiers: Hypertension type: primary hypertension Qualified Code(s): I10 - Essential (primary) hypertension Plan River has 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 He has obesity. He has history of poorly controlled diabetes mellitus. He has proteinuria. He likely has underlying diabetic nephropathy. He recently had hospitalization for decompensated diastolic heart failure. He might have had tubular injury the time. He has history of open wound in the leg which has been healing. His urine output is good. There is no recent suspect any obstructive uropathy. He has been on spironolactone and valsartan. I reduced the dose of both by 50% at the last visit. He is on fenofibrate which I asked him to hold for now. He should be getting blood work . His renal USS was unremarkable. He may need a renal biopsy. He was counseled to maintain good blood pressure and good blood sugar control. All these have been discussed in detail. Further management is pending evolving data. All questions answered. Follow-up appointment given Orders: Orders Immunofixation Pnl, Serum Today E11.21 - Type 2 diabetes mellitus with diabetic nephropathy, E11.22 - Type 2 diabetes mellitus with diabetic chronic kidney disease, N17.9 - Acute kidney failure, unspecified, N18.30 - Chronic kidney disease, stage 3 unspecified Immunofixation, Random Urine Today E11.21 - Type 2 diabetes mellitus with di abetic nephropathy, E11.22 - Type 2 diabetes mellitus with diabetic chronic kidney disease, N17.9 - Acute kidney failure, unspecified, N18.30 - Chronic kidney disease, stage 3 unspecified Creatinine Today E11.21 - Type 2 diabetes mellitus with diabetic nephropathy, E11.22 - Type 2 diabetes mellitus with diabetic chronic kidney disease, N17.9 - Acute kidney failure, unspecified, N18.30 - Chronic kidney disease, stage 3 unspecified Electrolytes Today E11.21 - Type 2 diabetes mellitus with diabetic nephropathy, E11.22 - Type 2 diabetes mellitus with diabetic chronic kidney disease, N17.9 - Acute kidney failure, unspecified, N18.30 - Chronic kidney disease, stage 3 unspecified Creatinine 3 Months E11.21 - Type 2 diabetes mellitus with diabetic nephropathy, E11.22 - Type 2 diabetes mellitus with diabetic chronic kidney disease, N17.9 - Acute kidney failure, unspecified, N18.30 - Chronic kidney disease, stage 3 unspecified Blood Urea Nitrogen Today E11.21 - Type 2 diabetes mellitus with diabetic nephropathy, E11.22 - Type 2 diabetes mellitus with diabetic chronic kidney disease, N17.9 - Acute kidney failure, unspecified, N18.30 - Chronic kidney disease, stage 3 unspecified Blood Urea Nitrogen 3 Months E11.21 - Type 2 diabetes mellitus with diabetic ne phropathy, E11.22 - Type 2 diabetes mellitus with diabetic chronic kidney disease, N17.9 - Acute kidney failure, unspecified, N18.30 - Chronic kidney disease, stage 3 unspecified Electrolytes 3 Months E11.21 - Type 2 diabetes mellitus with diabetic nephropathy, E11.22 - Type 2 diabetes mellitus with diabetic chronic kidney disease, N17.9 - Acute kidney failure, unspecified, N18.30 - Chronic kidney disease, stage 3 unspecified Coding Level of Care Code Est Pt Level 4 (31062) Diagnoses CKD stage 3 due to type 2 diabetes mellitus E11.22; N18.30 Diabetic nephropathy associated with type 2 diabetes mellitus E11.21 Diabetes mellitus type: type 2 EZRA (acute kidney injury) N17.9 Primary hypertension I10 Hypertension type: primary hypertension Results Reviewed Nephrology Results: Hgb 10.0 g/dl (14.0-18.0) L 06/03/23 WBC 12.1 X10*3/uL (4.8-10.8) H 06/03/23 Plt Count 267 X10*3/uL (160-400) 06/03/23 Sodium 137 mmol/L (135-145) 05/25/23 Potassium 5.2 mmol/L (3.3-5.1) H 05/25/23 Chloride 110 mmol/L (96-108) H 05/25/23 Carbon Dioxide 20 mmol/L (22-29) L 05/25/23 BUN 46 mg/dL (9-16) H 05/25/23 Creatinine 1.98 mg/dL (0.5-1.4) H 05/25/23 Calcium 9.7 mg/dL (8.4-10.2) 06/03/23 Phosphorus 5.8 mg/dL (2.7-4.5) H 06/03/23 PTH Intact 111.1 pg/mL (8.7-77.1) H 06/03/23 Urine Creatinine 196.28 mg/dL 06/03/23 Protein/Creatinin Ratio 0.92 (<0.2) H 06/03/23 Renal US 06/04/23
[2023-06-17 10:17] VITALS: BP 96/40; PULSE 55; O2SAT 98; BMI 37.3
== END 2023-06-17 10:38 | disposition home or self-care (01) ==
PROVIDERS: PCP Nurse Practitioner Family; Visit Provider Internal Medicine Nephrology
DX: E11.22 Type 2 diabetes mellitus with diabetic chronic kidney disease (principal); N18.30 Chronic kidney disease, stage 3 unspecified; E11.21 Type 2 diabetes mellitus with diabetic nephropathy; N17.9 Acute kidney failure, unspecified; I10 Essential (primary) hypertension
CPT/HCPCS: 99214

== ENCOUNTER → 2023-06-17 10:02 | Outpatient (BNVA) | payer OTHER, SELFPAY | PROVIDERS: PCP Nurse Practitioner Family; Visit Provider Internal Medicine Nephrology ==

== ENCOUNTER 2023-06-17 10:43 | Outpatient (REF) | payer OTHER, SELFPAY ==
[2023-06-17 13:34] LABS: Anion Gap 14 (12-20); Blood Urea Nitrogen 58 mg/dL (9-16); Carbon Dioxide 18 mmol/L (22-29); Chloride 111 mmol/L (96-108); Estimated Glomerular Filt Rate 38; Potassium 6.1 mmol/L (3.3-5.1); Sodium 137 mmol/L (135-145)
[2023-06-19 12:52] LABS: IgA 213 mg/dL (47-310); IgG 1943 mg/dL (600-1640); IgM 98 mg/dL (50-300)
== END 2023-06-17 10:44 | disposition home or self-care (01) ==
LOC: HO.10HDL 10:43
PROVIDERS: Visit Provider Internal Medicine Nephrology
DX: E11.21 Type 2 diabetes mellitus with diabetic nephropathy (principal); E11.22 Type 2 diabetes mellitus with diabetic chronic kidney disease; N18.30 Chronic kidney disease, stage 3 unspecified; N17.9 Acute kidney failure, unspecified
CPT/HCPCS: 80051; 82565; 82784; 84520; 86334; 86335

== ENCOUNTER 2023-06-19 08:14 | Outpatient (REF) | payer OTHER, SELFPAY ==
[2023-06-19 09:16] LABS: B Type Natriuretic Peptide 97 pg/mL (<100)
[2023-06-19 09:28] LABS: Alanine Aminotransferase 31 U/L (0-40); Albumin Level 3.7 g/dL (3.5-5.0); Alkaline Phosphatase 134 U/L (39-117); Anion Gap 16 (12-20); Aspartate Amino Transferase 25 U/L (5-37); Bilirubin Total 0.4 mg/dL (0.0-1.0); Blood Urea Nitrogen 53 mg/dL (9-16); Calcium 9.3 mg/dL (8.4-10.2); Carbon Dioxide 18 mmol/L (22-29); Chloride 109 mmol/L (96-108); Cholesterol 113 mg/dL (<200); Estimated Glomerular Filt Rate 46; Glucose Random 127 mg/dL (60-115); HDL Cholesterol 34 mg/dL (>40); LDL Cholesterol Calculated 44 mg/dL (<100); Potassium 5.2 mmol/L (3.3-5.1); Sodium 138 mmol/L (135-145); Total Protein 7.8 g/dL (6.5-8.0); Triglycerides 175 mg/dL (<150)
== END 2023-06-19 08:15 | disposition home or self-care (01) ==
LOC: HO.LAB 08:14
PROVIDERS: PCP Nurse Practitioner Family; Visit Provider Nurse Practitioner Family
DX: E11.9 Type 2 diabetes mellitus without complications (principal); E78.2 Mixed hyperlipidemia; I50.31 Acute diastolic (congestive) heart failure
CPT/HCPCS: 36415; 80053; 80061; 83880

== ENCOUNTER 2023-06-22 07:43 | Outpatient (REF) | payer OTHER, SELFPAY ==
[2023-06-22 07:58] LABS: MANUAL DIFF FLAG NO
[2023-06-22 08:00] LABS: Basophils Absolute Auto 0.1 X10*3/uL (0.0-0.2); Basophils Percent Auto 0.6 % (0-2); Eosinophils Absolute Auto 0.5 X10*3/uL (0.0-0.4); Eosinophils Percent Auto 4.8 % (0-4); Hematocrit 30.1 % (42.0-52.0); Imm Gran Abs Auto 0.03 X10*3/uL (0.00-0.03); Imm Gran Pct Auto 0.3 % (0.0-0.4); Lymphocytes Absolute Auto 2.8 X10*3/uL (1.2-4.9); Mean Corpuscular HGB Conc 33.2 g/dl (31.0-36.0); Mean Corpuscular Hemoglobin 29.5 pg (27.0-33.0); Mean Corpuscular Volume 88.8 fL (80.0-98.0); Mean Platelet Volume 11.4 fL (9.4-12.4); Monocytes Absolute Auto 0.6 X10*3/uL (0.1-1.2); Monocytes Percent Auto 6.3 % (2-11); Neutrophils Absolute Auto 5.7 x10*3/uL (2.0-8.3); Platelet Count 196 X10*3/uL (160-400); Red Blood Count 3.39 X10*6/uL (4.60-5.80); Red Cell Distribution Width 13.1 % (11.0-16.0); White Blood Count 9.7 X10*3/uL (4.8-10.8)
[2023-06-22 08:19] LABS: Anion Gap 12 (12-20); Blood Urea Nitrogen 39 mg/dL (9-16); Carbon Dioxide 22 mmol/L (22-29); Chloride 110 mmol/L (96-108); Estimated Glomerular Filt Rate 53; Potassium 4.4 mmol/L (3.3-5.1); Sodium 140 mmol/L (135-145)
== END 2023-06-22 07:44 | disposition home or self-care (01) ==
LOC: HO.LAB 07:43
PROVIDERS: Internal Medicine Nephrology; PCP Nurse Practitioner Family; Visit Provider Nurse Practitioner Family
DX: S91.105A Unspecified open wound of left lesser toe(s) without damage to nail, initial encounter (principal); D50.9 Iron deficiency anemia, unspecified; E87.5 Hyperkalemia; E11.21 Type 2 diabetes mellitus with diabetic nephropathy; E11.22 Type 2 diabetes mellitus with diabetic chronic kidney disease; N18.30 Chronic kidney disease, stage 3 unspecified; N17.9 Acute kidney failure, unspecified; E87.20 Acidosis, unspecified
CPT/HCPCS: 36415; 80051; 82565; 84520; 85025

== ENCOUNTER 2023-06-22 14:46 | Outpatient (AMB) | payer OTHER, SELFPAY ==
--- NOTE | 2023-06-22 14:52 | A.OFFVIS_ITS ---
Intake Vital Signs 3 06/22/23 15:04 Height 5 ft 8 in Weight 245 lb BMI 37.2 Pulse 70 Pulse Source Pulse Oximeter Temp 98.7 F Temp Source Oral Pulse Oximetry (%) 99 Intake Visit Reasons: reff wound care osteomylitis toe Allergies No Known Allergies Allergy (Verified 06/23/23 11:43) HPI reff wound care osteomylitis toe 2 HPI0 Details He is here sent by [facility]. He has nonhealing ulcer left fourth toe. He has no cellulitis or ulcers elsewhere. [facility] Medical History Postoperative visit Necrotizing subcutaneous infection Hypertension Type 2 diabetes Surgical History Status post incision and drainage [place] teeth removed Family History Mother Diabetes Maternal Uncle Diabetes Sister Multiple sclerosis Social History Household Members: Spouse Housing: House Do you presently have visiting nurse or other home services: No Alcohol intake: current Alcohol intake frequency: a few times a week Alcohol type: beer Patient Tobacco Use Status: Former Tobacco user Quit Date: 2009 e-Cigarette/Vaping Use: Never Used Substance Use Type: Marijuana service: No Current occupational status: employed Current occupation: [employer] Cognitive needs: No Hearing needs: No Vision needs: No Review of Systems Const All systems reviewed & are unremarkable except as noted in HPI and below Physical Exam Vital Signs: Last Vital Signs Temp 98.7 F 06/22/23 15:04 Pulse 70 06/22/23 15:04 Pulse Ox 99 06/22/23 15:04 BMI result Body Mass Index 37.2 Const Other: General: cooperative HEENT Head: Yes normal to inspection Face and sinus: Yes normal facial exam Mouth: Normal oral and palatal mucosa present Teeth and gingiva: dentition normal Eyes General: appearance normal, both eyes and all related structures Pupils: Equal, round and reactive pupils present Resp Effort & Inspection: normal respiratory effort Cardio Rate: regular rate Rhythm: regular rhythm GI Palpation (GI): Soft to palpation and nontender General: Yes no CVA tenderness Back/Spine/Pelvis Back: no CVA tenderness Skin General skin exam: no rashes or lesions noted Neuro General: moves all extremities Cranial nerves: Yes Equal, round and reactive pupils present Extrem Other: left fourth toe wound Psych Appearance: grossly normal Assessment & Plan Assessment & Plan (1) Wound, open, toe: Comment: He has left fourth toe OM with MSSA and enterococcus faecalis Code(s): S91.109A - Unspecified open wound of unspecified toe(s) without damage to nail, initial encounter Plan: Options include termite control representative IV suppressive antibiotics for six weeks to attempt healing although not curative Also option removal toe curative. Patient calls back and is going to see Dr Ivory for curative amputation left fourth toe. See again prn need. Coding Level of Care Code New Pt Level 3 (75341) Diagnoses Wound, open, toe S91.109A
[2023-06-22 15:04] VITALS: PULSE 70; TEMP 37.1; O2SAT 99; BMI 37.2
== END 2023-06-22 15:51 | disposition home or self-care (01) ==
PROVIDERS: PCP Nurse Practitioner Family; Visit Provider Internal Medicine
DX: S91.109A Unspecified open wound of unspecified toe(s) without damage to nail, initial encounter (principal)
CPT/HCPCS: 99203

== ENCOUNTER 2023-06-23 11:05 | Outpatient (AMB) | payer OTHER, SELFPAY ==
[2023-06-23 11:07] VITALS: BP 156/74; PULSE 71; RESP 13; TEMP 36.3; O2SAT 98; BMI 37.0
--- NOTE | 2023-06-23 11:07 | A.OFFPC_ITS ---
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 blood-glucose meter (FreeStyle Lite Meter kit) As Directed carvedilol 12.5 mg PO BID cholecalciferol (vitamin D3) 50 mcg PO DAILY comp.stocking,knee,long,medium As directed empagliflozin 10 mg PO DAILY fenofibrate 54 mg PO DAILY 90 days ferrous sulfate 325 mg PO TID 30 days fluticasone propionate 50 mcg/actuation (Flonase Allergy Relief) 1 spray intranasal BID PRN furosemide 40 mg PO QAM insulin glargine (Basaglar KwikPen U-100 Insulin) 15 units subcut BEDTIME lancets (FreeStyle Lancets) TEST FOUR TIMES A DAY OR DIRECTED. metformin 1,000 mg PO BID multivitamin 1 tab PO DAILY omega-3 fatty acids 1,000 mg PO TID pen needle, diabetic (BD Toshia 2nd Gen Pen Needle) USE FOUR TIMES A DAY OR DIRECTED. sodium bicarbonate 650 mg PO DAILY PRN sodium bicarbonate 650 mg PO DAILY 14 days sodium polystyrene sulfonate 30 grams CO Q6H valsartan 80 mg PO DAILY zinc acetate 50 mg (2 x 25 mg (zinc)) PO BID 3 months Tobacco use date assessed: 05/08/23 Dental Screening Dental Screen Date: 06/23/23 Did you have a dental visit in the last 12 months?: No Did you have a dental problem in the last 6 months where you did not have access to dental care?: No Was dental information given to patient?: Patient has dentist HPI HPI Comments History of Present Illness Details 53-year-old male presents for hypertensi on follow-up He admits to taking his medications as prescribed without adverse reactions He offers no complaints and denies acute symptoms at this time He is followed by [facility] wound clinic for wound care and treatment of wound the dorsal fourth toe of the left foot. He currently has osteomylitis of toe. He receives weekly wound care treatment from the wound clinic. His performs daily dressing changes. He states that the wound clinic recommended to have the toe amputated or he can take antibiotics treatment; however, it is not certain antibiotics treatment will be effective. He notes that he has not decide on treatment modality; however, he may elect antibiotic treatment. He saw [facility] infectious disease yesterday for consultation of the toe. He is also followed by [facility] [place] Cardiology, Nephrology, and Hematology [facility] Medical History Postoperative visit Necrotizing subcutaneous infection Hypertension Type 2 diabetes Surgical History Status post incision and drainage [place] teeth removed Family History Mother Diabetes Maternal Uncle Diabetes Sister Multiple sclerosis Social History Household Members: Spouse Housing: House Do you presently have visiting nurse or other home services: No Alcohol intake: current Alcohol intake frequency: a few times a week Alcohol type: beer Patient Tobacco Use Status: Former Tobacco user Quit Date: 2009 e-Cigarette/Vaping Use: Never Used Substance Use Type: Marijuana service: No Current occupational status: employed Current occupation: [employer] Cognitive needs: No Hearing needs: No Vision needs: No Questionnaire Thrive Questionnaire Date Thrive assessed: 05/06/23 UTE-7 AMB Questionnaire UTE-7 Date UTE - 7 assessed: 05/08/23 Source: Developed by Drs. Higinio Rodriguez, Olivia Rayo, Edilberto Freeman and colleagues, with an educational smitha from [employer]. Review of Systems Const Details: Const Denies chills, Denies fatigue, Denies fever(s), Denies headache(s) and Denies weakness ENT Denies dizziness and Denies headache(s) Card Denies chest pain, Denies lightheadedness, Denies dyspnea and Denies other (Palpitations) Resp Denies cough, Denies dyspnea, Denies wheezing and Denies other ( shortness of breath) GI Denies abdominal pain, Denies melena, Denies hematochezia, Denies change in bowel habits, Denies dyspepsia and Denies nausea Denies hematuria and Denies dysuria Musc Denies abnormal gait, Denies myalgias, Denies arthralgias, Denies numbness and Denies tingling Skin/Breast Denies rash, Denies unusual bruising and Reports left fouth toe wound Neuro Denies abnormal gait, Denies dizziness, Denies headache(s), Denies memory loss, Denies numbness, Denies Sensory deficit (Neuro), Denies tingling and Denies weakness Psych Denies anxiety, Denies depression, Denies memory loss Endo Denies cold intolerance, Denies fatigue, Denies heat intolerance, Denies polydipsia and Denies polyuria Aller/Immun Denies wheezing Physical exam (Primary Care) Vital Signs: Last Vital Signs Temp 97.3 F 06/23/23 11:07 Pulse 71 06/23/23 11:07 Resp 13 06/23/23 11:07 BP 156/74 H 06/23/23 11:07 Pulse Ox 98 06/23/23 11:07 Oxygen Delivery Method Room Air 06/23/23 11:07 BMI result Body Mass Index 37.0 Tobacco/Smoking Status: Tobacco use Status Tobacco use date assessed 05/08/23 06/23/23 11:18 Patient Tobacco Use Status Former Tobacco user 06/23/23 11:18 Tobacco use type 05/25/23 12:33 e-Cigarette/Vaping Use Never Used 06/23/23 11:18 Thrive Assessment: Date of Thrive Assessment Date Thrive assessed 05/06/23 06/23/23 11:18 Const Other: General: no acute distress and well developed Nutritional Appearance: well nourished Orientation/consciousness: patient oriented x3 HENMT Head: Yes normocephalic and Yes atraumatic Eyes General: appearance normal, both eyes and all related structures Pupils: Equal, round and reactive pupils present EOM: EOMs intact bilaterally Resp Effort & Inspection: normal respiratory effort Auscultation: clear to auscultation bilaterally Cardio Rate: regular rate Rhythm: regular rhythm Heart sounds: S1 normal heart sound present, S2 normal heart sound present, no gallops, no murmurs and no rubs GI Palpation (GI): No Abdominal aortic bruit present, Soft to palpation, nontender, No hepatosplenomegaly present and No Rebound tenderness present Auscultation: normal bowel sounds General: Yes no CVA tenderness Back/Spine/Pelvis Back: no CVA tenderness Cervical Spine: cervical ROM normal and No Cervical spine tenderness Thoracic/Lumbar Spine: thoraco-lumbar ROM normal, No pain with thoraco-lumbar ROM, No thoracic spinal tenderness and No lumbar spinal tenderness Extrem General: Yes normal to inspection, No edema and No calf tenderness Skin General: warm and dry. Normal skin color. Normal skin turgor Lesions: no lesions Rashes: no rashes Trauma: no lacerations or abrasions Wounds: wound with clean, dry and intact dsg to left fourth toe Nails: normal Neuro General: patient oriented x3, gait normal and no focal neuro deficit Cranial nerves: Yes Equal, round and reactive pupils present Cognition (Neuro): normal cognition Gait exam (Neuro): Normal gait present Sensory Exam: No Sensory deficit (Neuro) Psych Appearance: grossly normal Affect: normal affect Attitude: cooperative Thought process: Normal thought process present Assessment and Plan Assessment & Plan (1) Hypertension: Code(s): I10 - Essential (primary) hypertension Qualifiers: Hypertension type: primary hypertension Qualified Code(s): I10 - Essential (primary) hypertension Plan: Resting blood pressure is 120/70, within goal of less than 130/80 Continue current treatment regimen Low sodium diet encouraged Will continue to monitor Follow up in 1 month for an extended physical exam Return sooner with symptoms or concerns Verbalized understanding and agreed with the plan (2) Wound, open, toe: Code(s): S91.109A - Unspecified open wound of unspecified toe(s) without damage to nail, initial encounter Plan: Dorsal left fourth toe Dsg, clean, dry, and intact Continue current tx Follow up with the wound clinic as planned Verbalized understanding and agreed with the treatment plan Coding Level of Care Code Est Pt Level 3 (60458) Diagnoses Primary hypertension I10 Hypertension type: primary hypertension Wound, open, toe S91.109A
[2023-06-23 11:49] VITALS: BP 120/70
== END 2023-06-23 12:01 | disposition home or self-care (01) ==
PROVIDERS: PCP Nurse Practitioner Family; Visit Provider Nurse Practitioner Family
DX: I10 Essential (primary) hypertension (principal); S91.109A Unspecified open wound of unspecified toe(s) without damage to nail, initial encounter
CPT/HCPCS: 99213

== ENCOUNTER 2023-07-09 09:15 | Outpatient (AMB) | payer OTHER, SELFPAY ==
--- NOTE | 2023-07-09 09:21 | A.OFFVIS_ITS ---
Intake Vital Signs 07/09/23 09:27 Height 5 ft 8 in Weight 243 lb BMI 36.9 BP 125/62 Blood Pressure Location Rt brachial Position Sitting Pulse 58 Intake Visit Reasons: ? amputation of 4th [id number] Intake Note: This referred by [facility]ound [facility]/ Leonarda Johnson PA-C. Patient presents for assessment of 4th Lt dorsal toe possible amputation. Patient c/o; non healing ulcer. Reports ulcer present for a couple of months. 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 blood-glucose meter (FreeStyle Lite Meter kit) As Directed carvedilol 12.5 mg PO BID cholecalciferol (vitamin D3) 50 mcg PO DAILY comp.stocking,knee,long,medium As directed empagliflozin 10 mg PO DAILY fenofibrate 54 mg PO DAILY 90 days ferrous sulfate 325 mg PO TID 30 days fluticasone propionate 50 mcg/actuation (Flonase Allergy Relief) 1 spray intranasal BID PRN furosemide 40 mg PO QAM insulin glargine (Basaglar KwikPen U-100 Insulin) 15 units subcut BEDTIME lancets (FreeStyle Lancets) TEST FOUR TIMES A DAY OR DIRECTED. metformin 1,000 mg PO BID multivitamin 1 tab PO DAILY omega-3 fatty acids 1,000 mg PO TID pen needle, diabetic (BD Toshia 2nd Gen Pen Needle) USE FOUR TIMES A DAY OR DIRECTED. sodium bicarbonate 650 mg PO DAILY PRN sodium bicarbonate 650 mg PO DAILY 14 days sodium polystyrene sulfonate 30 grams LA Q6H valsartan 80 mg PO DAILY zinc acetate 50 mg (2 x 25 mg (zinc)) PO BID 3 months HPI ? amputation of 4th [id number] HPI Details 53-year-old male referred for amputation of the left 4th toe because of a nonhealing wound. He has had this nonhealing wound for about 3 months now. He says that this continues to have drainage and has remained open. He has been seen by the Wound Clinic as well as by Dr. Gerber of Infectious diseases. The option of going for long-term IV antibiotics versus amputation was explained to him because of this non healing wound with clinical suspicion for osteomyelitis He says that he wants to proceed with toe amputation. He does not want to be on IV antibiotics for the retirement. He continues to have significant drainage from the wound. He denies previous trauma to the area. He says he is blood sugars are fairly well controlled. [facility] Medical History Postoperative visit Necrotizing subcutaneous infection Hypertension Type 2 diabetes Surgical History Status post incision and drainage [place] teeth removed Family History Mother Diabetes Maternal Uncle Diabetes Sister Multiple sclerosis Social History Household Members: Spouse Housing: House Do you presently have visiting nurse or other home services: No Alcohol intake: current Alcohol intake frequency: a few times a week Alcohol type: beer Patient Tobacco Use Status: Former Tobacco user Quit Date: 2009 e-Cigarette/Vaping Use: Never Used Substance Use Type: Marijuana service: No Current occupational status: employed Current occupation: [employer] Cognitive needs: No Hearing needs: No Vision needs: No Review of Systems Const Denies chills and Denies fever(s) Card Denies chest pain, Denies dyspnea and Denies dyspnea on exertion Resp Denies cough, Denies dyspnea and Denies dyspnea on exertion GI Denies hematochezia and Denies change in bowel habits Denies hematuria and Denies difficulty urinating Musc Denies back pain and Denies limited range of motion Neuro Denies focal weakness and Denies convulsions Psych Denies depression and Denies mood swings Physical Exam Vital Signs: Last Vital Signs Pulse 58 07/09/23 09:27 BP 125/62 07/09/23 09:27 BMI result Body Mass Index 36.9 Const General: comfortable and no acute distress Orientation/consciousness: patient oriented x3 Neck Neck: Yes no lymphadenopathy Resp Auscultation: clear to auscultation bilaterally Cardio Rhythm: regular rhythm GI Palpation (GI): Soft to palpation, nontender and no guarding Neuro General: patient oriented x3 Extrem Other: Left 4th toe - large open wound dorsum of the left 4th toe, about 1.5 cm, draining, with significant edema and swelling of the 4th toe Assessment & Plan Assessment & Plan (1) Wound, open, toe: Comment: He has left fourth toe OM with MSSA and enterococcus faecalis Code(s): S91.109A - Unspecified open wound of unspecified toe(s) without damage to nail, initial encounter Plan: He has an open wound on the 4th toe which has not been healing for the past 3 months. He had been following the Wound Clinic as well as Dr. Gerber. Clinically, it appears that he has osteomyelitis. He says that he was given the option of long-term IV antibiotics versus amputation. He says that in view of the persistence of the open wound, he wants to proceed with toe amputation. I explained to him the technique of this planned procedure. I reviewed the risks including but not limited to bleeding, infections, poor wound healing, as well as the benefits and alternatives. He understands and has given consent. He understands what to expect postoperatively as well. Coding Level of Care Code Est Pt Level 3 (32459) Diagnoses Wound, open, toe S91.109A
[2023-07-09 09:27] VITALS: BP 125/62; PULSE 58; BMI 36.9
== END 2023-07-09 09:49 | disposition home or self-care (01) ==
PROVIDERS: PCP Nurse Practitioner Family; Referring Provider Physician Assistant; Visit Provider Surgery
DX: S91.109A Unspecified open wound of unspecified toe(s) without damage to nail, initial encounter (principal)
CPT/HCPCS: 99213

== ENCOUNTER → 2023-07-09 09:15 | Outpatient (BNVA) | payer OTHER, SELFPAY | PROVIDERS: PCP Nurse Practitioner Family; Referring Provider Physician Assistant; Visit Provider Surgery ==

== ENCOUNTER 2023-07-17 09:47 | Outpatient (AMB) | payer OTHER, SELFPAY ==
--- NOTE | 2023-07-17 09:57 | MHC.OFFVIS ---
Intake Vital Signs 07/17/23 09:59 Height 5 ft 8 in Weight 245 lb BMI 37.2 BP 126/76 Blood Pressure Location Rt brachial Position Left Lateral Respiration 16 Pulse 61 Pulse Source Pulse Oximeter Pulse Oximetry (%) 99 Oxygen Delivery Method Room Air Intake Visit Reasons: INP-Snoring - LVM w/address Intake Note: Pt presents for new pt evaluation for snoring. Wrapper Sheeter Required: No Allergies No Known Allergies Allergy (Verified 07/14/23 09:51) HPI HPI Comments History of Present Illness Details 53 y/o male patient with HTN, T2 DM presents for new in-person visit for sleep consultation. Pt reports snoring, having difficulty sleeping. 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 He tried Tylenol PM, it made him drowsy when he works. Home sleep study scheduled on 07/22. Sleep questionnaire: Have you ever been diagnosed with a sleep disorder? No. Have you ever had a sleep study in the past? No. Have you ever been treated for a sleep disorder? No. Do you take medications for a sleep disorder? Tylenol PM weekends. Do you snore? Yes. Do you wake up gasping at night? Yes. Do you have episodes of apneas? Yes. If yes, are they witnessed? Yes. Do you have episodes of nocturnal chest pain or dyspnea? No. Do you have difficulty initiating sleep? Yes. Do you have difficulty maintaining sleep? Yes. Do you wake up tired? Yes. Do you have headaches upon awakening? No. Do you wake up with dry mouth or throat? Yes. Do you have GERD? No. Do you have nocturia? Not much. Do you have nocturnal leg cramps? No. Do you have symptoms of restless legs? Yes, sometimes. Do you act out your dreams? No. Sleep hygiene questionnaire: What is your usual sleep routine? Usual bedtime is at 10 am; Usual wake up time is at 2-3 pm. Do you take naps? Yes. Is your sleep environment cool, dark, and quiet? Yes. Do you exercise? No. Do you take caffeine or other stimulants? Yes. A cup of coffee. Do you use electronics in bed? Yes, watch TV. What is your work schedule? 12 am to 8 am. Hypersomnolence questionnaire: Do you have daytime tiredness or fatigue? Yes. Do you easily fall asleep when inactive? No. Have you ever had episodes of sudden weakness? No. Have you ever had episodes of sudden weakness associated with strong emotions? No. [facility] Medical History Postoperative visit Necrotizing subcutaneous infection Hypertension Type 2 diabetes Surgical History Status post incision and drainage [place] teeth removed Family History Mother Diabetes Maternal Uncle Diabetes Sister Multiple sclerosis Social History Household Members: Spouse Housing: House Do you presently have visiting nurse or other home services: No Alcohol intake: current Alcohol intake frequency: a few times a week Alcohol type: beer Patient Tobacco Use Status: Former Tobacco user Quit Date: 2009 e-Cigarette/Vaping Use: Never Used Substance Use Type: Marijuana service: No Current occupational status: employed Current occupation: [employer] Cognitive needs: No Hearing needs: No Vision needs: No Review of Systems Const All systems reviewed & are unremarkable except as noted in HPI and below Physical Exam Vital Signs: Last Vital Signs Pulse 61 07/17/23 09:59 Resp 16 07/17/23 09:59 BP 126/76 07/17/23 09:59 Pulse Ox 99 07/17/23 09:59 Oxygen Delivery Method Room Air 07/17/23 09:59 BMI result Body Mass Index 37.2 Const General: cooperative Nutritional Appearance: obese Orientation/consciousness: patient oriented x3 Neck Neck: Yes full ROM and Yes supple Resp Effort & Inspection: normal respiratory effort and able to speak in complete sentences Neuro General: patient oriented x3 and gait normal Cranial nerves: Yes CN's II-XII intact bilaterally Cognition (Neuro): normal cognition Gait exam (Neuro): Normal gait present Motor exam (neuro): 5/5 motor strength present throughout Psych Appearance: grossly normal Mental Status: mental status grossly normal Speech and movement: Normal speech and movement present Affect: normal affect Attitude: cooperative Assessment & Plan Assessment & Plan (1) Hypersomnia: Code(s): G47.10 - Hypersomnia, unspecified (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 Home sleep study scheduled on June,. Will f/u with pt after study to discuss results and appropriate treatment options. May try melatonin for sleep during weekend. Pt to call with any worsening concerns or questions. Coding Level of Care Code New Pt Level 3 (95028) Diagnoses Hypersomnia G47.10 Shift work sleep disorder G47.26
[2023-07-17 09:59] VITALS: BP 126/76; PULSE 61; RESP 16; O2SAT 99; BMI 37.2
== END 2023-07-17 10:15 | disposition home or self-care (01) ==
PROVIDERS: PCP Nurse Practitioner Family; Visit Provider Nurse Practitioner Family
DX: G47.10 Hypersomnia, unspecified (principal); G47.26 Circadian rhythm sleep disorder, shift work type
CPT/HCPCS: 99203

== ENCOUNTER → 2023-07-17 09:47 | Outpatient (BNVA) | payer OTHER, SELFPAY | PROVIDERS: PCP Nurse Practitioner Family; Visit Provider Nurse Practitioner Family ==

== ENCOUNTER → 2023-07-23 08:02 | Outpatient (REF) | payer OTHER, SELFPAY | LOC: HO.SL 08:02 | PROVIDERS: PCP Nurse Practitioner Family; Visit Provider Nurse Practitioner Family | DX: G47.33 Obstructive sleep apnea (adult) (pediatric) (principal); G47.10 Hypersomnia, unspecified | CPT/HCPCS: 95806 ==

== ENCOUNTER → 2023-07-23 08:12 | Outpatient (BNV) | payer OTHER, SELFPAY | PROVIDERS: PCP Nurse Practitioner Family; Visit Provider Internal Medicine | DX: G47.33 Obstructive sleep apnea (adult) (pediatric) (principal) | CPT/HCPCS: 95806 ==

== ENCOUNTER 2023-08-03 11:11 | Outpatient (AMB) | payer OTHER, SELFPAY ==
--- NOTE | 2023-08-03 11:16 | MHC.PC.OV ---
Vital Signs 08/03/23 11:17 Height 5 ft 8 in Weight 240 lb 8 oz BMI 36.6 BP 112/70 Blood Pressure Location Rt brachial Position Sitting Pulse 51 Pulse Source Pulse Oximeter Pulse Oximetry (%) 100 Oxygen Delivery Method Room Air Intake Visit Reasons: Pre op [facility] [place] Intake Note: Patient is here for a Pre-op for Left foot 4th toe amputation scheduled with Dr Kurt Valverde ([facility] [place]) on 08/14/23. Supervisor Central Supply Required: No Gate Shear Operator: Not Required per policy Accompanied by: Self / Same As Patient Allergies No Known Allergies Allergy (Verified 08/03/23 11:42) Medication List - Last Reconciled 08/03/23 by Quique Tatum CNP atorvastatin 40 mg PO BEDTIME 30 days blood sugar diagnostic (FreeStyle Lite Strips) Test four times a day or as directed. blood-glucose meter (FreeStyle Lite Meter kit) As Directed carvedilol 12.5 mg PO BID cholecalciferol (vitamin D3) 50 mcg PO DAILY comp.stocking,knee,long,medium As directed empagliflozin 10 mg PO DAILY ferrous sulfate 325 mg PO TID 30 days fluticasone propionate 50 mcg/actuation (Flonase Allergy Relief) 1 spray intranasal BID PRN furosemide 40 mg PO QAM insulin glargine (Basaglar KwikPen U-100 Insulin) 15 units subcut BEDTIME lancets (FreeStyle Lancets) TEST FOUR TIMES A DAY OR DIRECTED. metformin 1,000 mg PO BID multivitamin 1 tab PO DAILY omega-3 fatty acids 1,000 mg PO TID pen needle, diabetic (BD Toshia 2nd Gen Pen Needle) USE FOUR TIMES A DAY OR DIRECTED. valsartan 80 mg PO DAILY zinc acetate 50 mg (2 x 25 mg (zinc)) PO BID 3 months Tobacco use date assessed: 08/03/23 Dental Screening Dental Screen Date: 06/23/23 HPI HPI Comments History of Present Illness Details 53-year-old male presents for a preop exam for Left foot 4th toe amputation scheduled with Dr Kurt Valverde ([facility] [place]) on 08/14/23 He notes that the wound has gotten smaller with no pain. He has been performing daily wound care/dressing change and had dressing change this morning He admits to taking his medications as prescribed. He notes that he was informed to stop taking Jardiance 4 days before the procedure He offers no complaints and denies acute symptoms at this time Recent lab results at baseline [facility] Medical History Postoperative visit Necrotizing subcutaneous infection Hypertension Type 2 diabetes Surgical History Status post incision and drainage [place] teeth removed Family History Mother Diabetes Maternal Uncle Diabetes Sister Multiple sclerosis Social History Household Members: Spouse Housing: House Do you presently have visiting nurse or other home services: No Alcohol intake: current Alcohol intake frequency: a few times a week Alcohol type: beer Patient Tobacco Use Status: Former Tobacco user Quit Date: 2009 e-Cigarette/Vaping Use: Never Used Second Hand Smoke Exposure: Yes Substance Use Type: Marijuana service: No Current occupational status: employed Current occupation: [employer] Cognitive needs: No Hearing needs: No Vision needs: No Questionnaire Thrive Questionnaire Date Thrive assessed: 05/06/23 UTE-7 AMB Questionnaire UTE-7 Date UTE - 7 assessed: 05/08/23 Source: Developed by Drs. Higinio Rodriguez, Olivia Rayo, Edilberto Freeman and colleagues, with an educational smitha from [employer]. Review of Systems Const Details: Const Denies chills, Denies fatigue, Denies fever(s), Denies headache(s) and Denies weakness ENT Denies dizziness and Denies headache(s) Card Denies chest pain, Denies lightheadedness, Denies dyspnea and Denies other (Palpitations) Resp Denies cough, Denies dyspnea, Denies wheezing and Denies other ( shortness of breath) GI Denies abdominal pain, Denies melena, Denies hematochezia, Denies change in bowel habits, Denies dyspepsia and Denies nausea Denies hematuria and Denies dysuria Musc Denies abnormal gait, Denies myalgias, Denies arthralgias, Denies numbness and Denies tingling Skin/Breast Denies rash, Denies unusual bruising and Denies wounds Neuro Denies abnormal gait, Denies dizziness, Denies headache(s), Denies memory loss, Denies numbness, Denies Sensory deficit (Neuro), Denies tingling and Denies weakness Psych Denies anxiety, Denies depression, Denies memory loss Endo Denies cold intolerance, Denies fatigue, Denies heat intolerance, Denies polydipsia and Denies polyuria Aller/Immun Denies wheezing Physical exam (Primary Care) Vital Signs: Last Vital Signs Pulse 51 08/03/23 11:17 BP 112/70 08/03/23 11:17 Pulse Ox 100 08/03/23 11:17 Oxygen Delivery Method Room Air 08/03/23 11:17 BMI result Body Mass Index 36.6 Tobacco/Smoking Status: Tobacco use Status Tobacco use date assessed 08/03/23 08/03/23 11:20 Patient Tobacco Use Status Former Tobacco user 08/03/23 11:20 Tobacco use type 05/25/23 12:33 e-Cigarette/Vaping Use Never Used 08/03/23 11:20 Thrive Assessment: Date of Thrive Assessment Date Thrive assessed 05/06/23 08/03/23 11:20 Const Other: General: no acute distress and well developed Nutritional Appearance: well nourished Orientation/consciousness: patient oriented x3 HENMT Head: Yes normocephalic and Yes atraumatic Eyes General: appearance normal, both eyes and all related structures Pupils: Equal, round and reactive pupils present EOM: EOMs intact bilaterally Resp Effort & Inspection: normal respiratory effort Auscultation: clear to auscultation bilaterally Cardio Rate: regular rate Rhythm: regular rhythm Heart sounds: S1 normal heart sound present, S2 normal heart sound present, no gallops, no murmurs and no rubs GI Palpation (GI): No Abdominal aortic bruit present, Soft to palpation, nontender, No hepatosplenomegaly present and No Rebound tenderness present Auscultation: normal bowel sounds General: Yes no CVA tenderness Back/Spine/Pelvis Back: no CVA tenderness Cervical Spine: cervical ROM normal and No Cervical spine tenderness Thoracic/Lumbar Spine: thoraco-lumbar ROM normal, No pain with thoraco-lumbar ROM, No thoracic spinal tenderness and No lumbar spinal tenderness Extrem General: Yes normal to inspection, No edema and No calf tenderness. Wound to left great toe with dressing Skin General: warm and dry. Normal skin color. Normal skin turgor Neuro General: patient oriented x3, gait normal and no focal neuro deficit Cranial nerves: Yes Equal, round and reactive pupils present Cognition (Neuro): normal cognition Gait exam (Neuro): Normal gait present Sensory Exam: No Sensory deficit (Neuro) Psych Appearance: grossly normal Affect: normal affect Attitude: cooperative Thought process: Normal thought process present Assessment and Plan Assessment & Plan (1) Preop examination: Code(s): Z01.818 - Encounter for other preprocedural examination Plan: Patient presents for preop exam for Left foot 4th toe amputation scheduled on 08/14/2023 No acute symptoms Vital signs stable. Lung sounds clear bilaterally. Heart regular rate and rhythm. Normal neuro exam Recent lab results at baseline No current medical contraindications for left 4th toe surgery Advised to hold Jardiance as instructed prior to surgery Follow-up with PCP as scheduled next month for an extended physical exam or return sooner with symptoms or concerns Verbalized understanding and agreed with treatment plan Coding Level of Care Code Est Pt Level 3 (19798) Diagnoses Preop examination Z01.818
[2023-08-03 11:17] VITALS: BP 112/70; PULSE 51; O2SAT 100; BMI 36.6
== END 2023-08-03 11:57 | disposition home or self-care (01) ==
PROVIDERS: PCP Nurse Practitioner Family; Visit Provider Nurse Practitioner Family
DX: Z01.818 Encounter for other preprocedural examination (principal)
CPT/HCPCS: 99213

== ENCOUNTER 2023-08-12 11:17 | Outpatient (AMB) | payer OTHER, SELFPAY ==
--- NOTE | 2023-08-12 11:36 | MHC.OFFVIS ---
Intake Vital Signs 08/12/23 11:40 Height 5 ft 8 in Weight 240 lb 8.001 oz BMI 36.6 Intake Visit Reasons: Wound care f/u surgery Intake Note: This patient was referred by Wound care center for a follow-up prior to surgery. Pt c/o; reports wound closed. Heeler Required: No Accompanied by: Self / Same As Patient Allergies No Known Allergies Allergy (Verified 08/12/23 11:48) Medication List - Last Reconciled 08/12/23 by Yoni Valverde MD atorvastatin 40 mg PO BEDTIME 30 days blood sugar diagnostic (FreeStyle Lite Strips) Test four times a day or as directed. blood-glucose meter (FreeStyle Lite Meter kit) As Directed carvedilol 12.5 mg PO BID cholecalciferol (vitamin D3) 50 mcg PO DAILY comp.stocking,knee,long,medium As directed empagliflozin 10 mg PO DAILY ferrous sulfate 325 mg PO TID 30 days fluticasone propionate 50 mcg/actuation (Flonase Allergy Relief) 1 spray intranasal BID PRN furosemide 40 mg PO QAM insulin glargine (Basaglar KwikPen U-100 Insulin) 15 units subcut QPM lancets (FreeStyle Lancets) TEST FOUR TIMES A DAY OR DIRECTED. metformin 1,000 mg PO BID multivitamin 1 tab PO DAILY omega-3 fatty acids 1,000 mg PO TID pen needle, diabetic (BD Toshia 2nd Gen Pen Needle) USE FOUR TIMES A DAY OR DIRECTED. valsartan 80 mg PO DAILY zinc acetate 50 mg (2 x 25 mg (zinc)) PO BID 3 months HPI Wound care f/u surgery HPI Details He is scheduled to undergo amputation of the 4th toe on 08/14/2023. He has had this chronic swelling of the 4th toe along with an ulcer/sinus on the dorsal aspect. He says that the sinus seemed to be dry so he wanted to be re-evaluated preop to the surgery. He continues to have chronic swelling of the toe however. He says he does have discomfort on this area. He says that his blood sugars are well controlled. [facility] Medical History Elevated cholesterol Iron deficiency anemia CHF (congestive heart failure) Chronic renal insufficiency Diabetic nephropathy Necrotizing subcutaneous infection Hypertension Type 2 diabetes Surgical History History of pyloromyotomy Status post incision and drainage [place] teeth removed Family History Mother Diabetes Maternal Uncle Diabetes Sister Multiple sclerosis Social History Household Members: Spouse Housing: House Are you a primary career portals teacher to a significant other at home: No Do you presently have visiting nurse or other home services: No Alcohol intake: current Alcohol intake frequency: a few times a week Alcohol type: beer Patient Tobacco Use Status: Former Tobacco user Quit Date: ~age 22 Tobacco use type: Cigarette Years Smoked: 4 e-Cigarette/Vaping Use: Never Used Second Hand Smoke Exposure: Yes Substance Use Type: Marijuana Advance Directives Date on File: 05/07/23 service: No Current occupational status: employed Current occupation: [employer] Cognitive needs: No Hearing needs: No Vision needs: No Review of Systems Const Denies chills and Denies fever(s) Card Denies chest pain, Denies dyspnea and Denies dyspnea on exertion Resp Denies cough, Denies dyspnea and Denies dyspnea on exertion GI Denies hematochezia and Denies change in bowel habits Denies hematuria and Denies difficulty urinating Musc Denies back pain and Denies limited range of motion Neuro Denies focal weakness and Denies convulsions Psych Denies depression and Denies mood swings Physical Exam Vital Signs: BMI result Body Mass Index 36.6 Const General: comfortable and no acute distress Orientation/consciousness: patient oriented x3 Neck Neck: Yes no lymphadenopathy Resp Auscultation: clear to auscultation bilaterally Cardio Rhythm: regular rhythm GI Palpation (GI): Soft to palpation, nontender and no guarding Neuro General: patient oriented x3 Extrem Other: Fourth toe on the left with significant edema, redness, with a sinus has ulcer on dorsal aspect which appears to be dry Assessment & Plan Assessment & Plan (1) Wound, open, toe: Comment: He has left fourth toe OM with MSSA and enterococcus faecalis Code(s): S91.109A - Unspecified open wound of unspecified toe(s) without damage to nail, initial encounter Plan: He has a chronic wound on the 4th toe on the left. This seems to be dry at this time. However he continues to have significant swelling and redness. I did tell him that clinically he does have a deeper infection of the toe and had been recommended to undergo amputation by his ID physician. He says he will go ahead with this amputation this Thursday. He says he understands the technique of the procedure as well as the risks, benefits, and alternatives. Coding Level of Care Code Est Pt Level 2 (93672) Diagnoses Wound, open, toe S91.109A
[2023-08-12 11:40] VITALS: BMI 36.6
== END 2023-08-12 12:18 | disposition home or self-care (01) ==
PROVIDERS: PCP Nurse Practitioner Family; Visit Provider Surgery
DX: S91.109A Unspecified open wound of unspecified toe(s) without damage to nail, initial encounter (principal)
CPT/HCPCS: 99212

== ENCOUNTER → 2023-08-12 11:17 | Outpatient (BNVA) | payer OTHER, SELFPAY | PROVIDERS: PCP Nurse Practitioner Family; Visit Provider Surgery ==

== ENCOUNTER → 2023-08-14 09:08 | Day surgery (SDC) | payer OTHER, SELFPAY ==
[2023-08-05 15:17] VITALS: BMI 36.6
[2023-08-14 09:55] VITALS: BP 142/59; PULSE 49; RESP 16; TEMP 36.5; O2SAT 97
[2023-08-14 10:45] LABS: Anion Gap 11 (12-20); Blood Urea Nitrogen 43 mg/dL (9-16); Carbon Dioxide 21 mmol/L (22-29); Chloride 113 mmol/L (96-108); Creatinine Clr Calc Pharmacy 70.7; Estimated Glomerular Filt Rate 50; Glucose Random 140 mg/dL (60-115); Potassium 5.9 mmol/L (3.3-5.1); Sodium 139 mmol/L (135-145)
--- NOTE | 2023-08-14 10:53 | P.CONAN_ITS ---
HPI - Anesthesia Eval Consult details Narrative: 53 yo male patient for Left 4th toe amputation. Patient has a h/o acute on chronic renal failure with K+ of 6.1 on 06/17/23. Patient was seen by his clerk of scales and therapy instituted. K+ came down to normal but started to increase again. K+ this morning 5.9. Patient is being sent to ER for evaluation and treatment. Dr Valverde and patient's clerk of scales were informed PMFSH Active Problems Active Problems: All Active Problems (Updated 08/05/23 @ 15:17 by Catalina Singh RN) Preop examination (Acute) Shift work sleep disorder (Acute) Metabolic acidosis (Acute) Diabetic nephropathy (Acute) CKD stage 3 due to type 2 diabetes mellitus (Acute) Hospital discharge follow-up (Acute) Hypersomnia (Acute) EZRA (acute kidney injury) (Acute) Hyperalbuminemia (Acute) Kidney disease (Acute) Acute heart failure with preserved ejection fraction (HFpEF) (Acute) Uncontrolled hypertension (Acute) Decompensated heart failure (Acute) CHF (congestive heart failure) (Acute) Morbid obesity with BMI of 40.0-44.9, adult (Acute) Wound, open, toe (Acute) Iron deficiency anemia (Acute) Abnormal chest x-ray (Acute) Snoring (Acute) Edema of both feet (Acute) SOB (shortness of breath) (Acute) Obesity (BMI 30-39.9) (Acute) Bilateral swelling of feet and ankles (Acute) Anemia (Acute) Elevated cholesterol with high triglycerides (Acute) Colon cancer screening (Acute) BMI 38.0-38.9,adult (Acute) Strain of right hip and thigh (Acute) Mild anemia (Acute) Postoperative visit (Acute) High potassium (Acute) Normal physical exam (Acute) Sary-rectal abscess (Acute) Poorly controlled type 2 diabetes mellitus (Acute) Diabetes (Acute) Type 2 diabetes (Acute) Hypertension (Acute) Past Medical History Medical History Elevated cholesterol Iron deficiency anemia CHF (congestive heart failure) Chronic renal insufficiency Diabetic nephropathy Necrotizing subcutaneous infection Hypertension Type 2 diabetes Family History Family History Mother Diabetes Maternal Uncle Diabetes Sister Multiple sclerosis Family history of problems with anesthesia: No Surgical History Surgical History History of pyloromyotomy Status post incision and drainage [place] teeth removed History of Problems with Anesthesia: No Social History Social History Household Members: Spouse Housing: House Are you a primary home health care social worker to a significant other at home: No Do you presently have visiting nurse or other home services: No Alcohol intake: current Alcohol intake frequency: a few times a week Alcohol type: beer Patient Tobacco Use Status: Former Tobacco user Quit Date: ~age 22 Tobacco use type: Cigarette Years Smoked: 4 e-Cigarette/Vaping Use: Never Used Second Hand Smoke Exposure: Yes Substance Use Type: Marijuana Advance Directives Date on File: 05/07/23 service: No Current occupational status: employed Current occupation: [employer] Cognitive needs: No Hearing needs: No Vision needs: No Meds Allergies Allergy/AdvReac Type Severity Reaction Status Date / Time No Known Allergies Allergy Verified 08/14/23 09:46 Home Medications ?Medication ?Instructions ?Recorded ?Confirmed ?Last Taken ?Type multivitamin 1 tab PO DAILY 03/11/22 08/14/23 05/04/23 History omega-3 fatty acids 1,000 mg PO TID 03/11/22 08/14/23 05/04/23 History fluticasone propionate 50 1 spray intranasal BID PRN 05/05/23 08/14/23 05/04/23 History mcg/actuation nasal Allergic Symptoms spray,suspension (Flonase Allergy Relief) insulin glargine 100 unit/mL (3 15 unit subcut QPM 05/05/23 08/14/23 08/13/23 17:00 History mL) subcutaneous pen (Basaglar KwikPen U-100 Insulin) Exam Height,Weight and Vital Signs: Height 5 ft 8 in Weight 109.089 kg Last Vital Signs Temp 97.7 F 08/14/23 09:55 Pulse 49 L 08/14/23 09:55 Resp 16 08/14/23 09:55 BP 142/59 H 08/14/23 09:55 Pulse Ox 97 08/14/23 09:55 O2 Del Method Room Air 08/14/23 09:55 Pertinent Lab Results Pertinent Lab Results: Laboratory Tests 08/14/23 10:18 Sodium 139 Potassium 5.9 H Chloride 113 H Carbon Dioxide 21 L Anion Gap 11 L BUN 43 H Creatinine 1.48 H Estim Creat Clear Calc 70.7 Estimated GFR 50 Random Glucose 140 H Calcium 9.0 Assessment and Plan Final Anesthetic Review Family History of Problems with Anesthesia: No History of Problems with Anesthesia: No
--- NOTE | 2023-08-14 11:14 | PC.NURSE ---
Dr. Tang at bedside, pt K+ 5.9, unable to do surgery. Pt will be sent to ER for management.
== END ==
PROVIDERS: Anesthesiology; PCP Nurse Practitioner Family; Visit Provider Surgery
DX: S91.105A Unspecified open wound of left lesser toe(s) without damage to nail, initial encounter (principal); Z53.09 Procedure and treatment not carried out because of other contraindication; E87.5 Hyperkalemia; X58.XXXA Exposure to other specified factors, initial encounter; Y99.9 Unspecified external cause status; Y93.9 Activity, unspecified; Y92.9 Unspecified place or not applicable
CPT/HCPCS: 36415; 80048

== ENCOUNTER 2023-08-14 11:31 | Emergency (ER) | payer OTHER, SELFPAY ==
--- NOTE | 2023-08-14 11:34 | ECG_ITS ---
Test Reason : hyperkalemia Blood Pressure : / mmHG Vent. Rate : 049 BPM Atrial Rate : 049 BPM P-R Int : 162 ms QRS Dur : 076 ms QT Int : 416 ms P-R-T Axes : 008 007 034 degrees QTc Int : 375 ms Sinus bradycardia with sinus arrhythmia Otherwise normal ECG When compared with ECG of 04-MAY-2023 21:53, Vent. rate has decreased BY 45 BPM Referred By: Viola Boyd Electronically Signed By:REGINO LOPEZ
[2023-08-14 11:41] VITALS: BP 185/77; PULSE 49; RESP 12; TEMP 36.9; O2SAT 99; BMI 36.4
--- NOTE | 2023-08-14 11:50 | ED.RECABL ---
HPI - Recheck/Abnormal Lab/Rx General Chief Complaint: Recheck/Abnormal Lab/Rx Stated Complaint: abnormal labs Time Seen by Provider: 08/14/23 11:34 Source: patient, old records reviewed and other (anesthesia provider) Limitations: no limitations History of Present Illness HPI narrative: 53 yo male with PMH of DM, NANCY, CKD, HTN, CHF, obesity, prior elevated K here with c/o being in preop and he was supposed to get toe amputated that checked his K and it was 5.9. He denies any complaints sent to ED for treatment. patient is no longer on spironolactone for the past few months MD complaint: abnormal lab Initial visit (ago): hour(s) (just today) Initial visit for: other (was supposed to have toe amputation with Dr. Valverde) Returns today for: called because of abnormal lab/test Description of abnormal result: K 5.9 Symptoms since prior visit: no new symptoms Context: called for abnormal lab result Associated symptoms: none Related Data Home Medications ?Medication ?Instructions ?Recorded ?Confirmed multivitamin 1 tab PO DAILY 03/11/22 08/14/23 omega-3 fatty acids 1,000 mg PO TID 03/11/22 08/14/23 fluticasone propionate 50 1 spray intranasal BID PRN 05/05/23 08/14/23 mcg/actuation nasal Allergic Symptoms spray,suspension (Flonase Allergy Relief) insulin glargine 100 unit/mL (3 15 unit subcut QPM 05/05/23 08/14/23 mL) subcutaneous pen (Basaglar KwikPen U-100 Insulin) Previous Rx's ?Medication ?Instructions ?Recorded blood-glucose meter (FreeStyle #1 ea 03/11/22 Lite Meter kit) pen needle, diabetic 32 gauge x #120 ea 07/09/22 (BD Toshia 2nd Gen Pen Needle) blood sugar diagnostic (FreeStyle #100 ea 07/25/22 Lite Strips) lancets 28 gauge (FreeStyle #100 ea 02/11/23 Lancets) zinc acetate 25 mg (zinc) capsule 50 mg (2 x 25 mg (zinc)) PO BID 3 04/14/23 months #360 caps comp.stocking,knee,long,medium #12 ea 04/15/23 carvedilol 12.5 mg tablet 12.5 mg PO BID #60 tabs 06/08/23 empagliflozin 10 mg tablet 10 mg PO DAILY #30 tabs 06/08/23 furosemide 40 mg tablet 40 mg PO QAM #30 tabs 06/08/23 cholecalciferol (vitamin D3) 50 50 mcg PO DAILY #30 caps 06/17/23 mcg (2,000 unit) capsule valsartan 80 mg tablet 80 mg PO DAILY #60 tabs 06/17/23 metformin 1,000 mg tablet 1,000 mg PO BID #180 tabs 07/08/23 atorvastatin 40 mg tablet 40 mg PO BEDTIME 30 days #30 tabs 07/09/23 ferrous sulfate 325 mg (65 mg 325 mg PO TID 30 days #90 tabs 07/15/23 iron) tablet sodium zirconium cyclosilicate 5 5 g PO DAILY 3 days #11 ea 08/14/23 gram oral powder packet (Lokelms) Allergies Allergy/AdvReac Type Severity Reaction Status Date / Time No Known Allergies Allergy Verified 08/14/23 11:42 Review of Systems Review of Systems: Constitutional : No Fever, No Chills, No Fatigue ENT/Mouth : No sore throat, No Rhinorrhea Eyes: No Eye Pain, No Swelling, No Redness Cardiovascular : No Chest Pain, No SOB, No Dyspnea on Exertion Respiratory : No Cough, No Sputum Gastrointestinal : No Nausea, No Vomiting, No Diarrhea, No abdominal Pain Genitourinary : No Dysuria, No Urinary Frequency, No Hematuria, Musculoskeletal : No joint pain, No Myalgias, No Joint Swelling Skin : No Skin Lesions, No rash Neuro : No Weakness, No Numbness, No Dizziness, no Headache Psych : No Anxiety/Panic, No Depression All other systems reviewed and are negative [facility] Past Medical History Attestation statement: The following information was validated with the patient. Source: old records reviewed Medical History Elevated cholesterol Iron deficiency anemia CHF (congestive heart failure) Chronic renal insufficiency Diabetic nephropathy Necrotizing subcutaneous infection Hypertension Type 2 diabetes Surgical History History of pyloromyotomy Status post incision and drainage [place] teeth removed Family History Family History Mother Diabetes Maternal Uncle Diabetes Sister Multiple sclerosis Social History Social History Household Members: Spouse Housing: House Are you a primary residential care officer to a significant other at home: No Do you presently have visiting nurse or other home services: No Alcohol intake: current Alcohol intake frequency: a few times a week Alcohol type: beer Patient Tobacco Use Status: Former Tobacco user Quit Date: ~age 22 Tobacco use type: Cigarette Years Smoked: 4 e-Cigarette/Vaping Use: Never Used Second Hand Smoke Exposure: Yes Substance Use Type: Marijuana Advance Directives: No Advance Directives Information Provided: Yes Advance Directives Date on File: 05/07/23 service: No Current occupational status: employed Current occupation: [employer] Cognitive needs: No Hearing needs: No Vision needs: No Physical Exam Vital Signs: Vital Signs: Last Vital Signs Temp 98.4 F 08/14/23 13:02 Pulse 63 08/14/23 13:02 Resp 12 08/14/23 13:02 BP 156/66 H 08/14/23 13:02 Pulse Ox 98 08/14/23 13:02 O2 Del Method Room Air 08/14/23 13:02 BMI result Body Mass Index 36.4 Appearance: Alert. Oriented X3. No acute distress. Eyes: Pupils equal, round and reactive to light. ENT: Pharynx normal. Neck: Normal inspection. Neck supple. CVS: Normal heart rate and rhythm. Pulses normal. Respiratory: No respiratory distress. Breath sounds normal. Abdomen: Soft and nontender. Skin: Skin warm and dry. Normal skin color. Normal skin turgor. Extremities: No lower extremity edema. No calf ttp Neuro: Oriented X 3. No motor deficit. No sensory deficit. Medications Administered Generic Name Dose Route Start Last Admin Trade Name Freq PRN Reason Stop Dose Admin Dextrose 250 mls @ 750 mls/hr 08/14/23 12:13 08/14/23 12:59 D10 IV 750 mls/hr Q15M PRN Administration per Hypoglycemia Standing Ord. Discontinued Medications Generic Name Dose Route Start Last Admin Trade Name Freq PRN Reason Stop Dose Admin Albuterol Sulfate 5 mg 08/14/23 11:52 08/14/23 12:06 Albuterol Sulfate (0.083%) 2.5 Mg/3 Ml Vial.Neb INHALE 08/14/23 11:53 5 mg ONCE ONE Administration Calcium Gluconate 2 gm in 100 mls @ 50 mls/hr 08/14/23 11:34 08/14/23 11:52 Calcium Gluconate IV 08/14/23 13:33 50 mls/hr ONCE ONE Administration Insulin Human Regular 5 unit 08/14/23 12:13 08/14/23 13:23 Insulin Regular, Human 100 Unit/Ml 3 Ml Vial IVPUSH 08/14/23 12:14 5 unit ONCE ONE Administration Sodium Bicarbonate 50 meq 08/14/23 11:52 08/14/23 12:54 Sodium Bicarbonate 8.4% 50 Meq/50 Ml Syringe IVPUSH 08/14/23 11:53 50 meq ONCE ONE Administration Sodium Zirconium Cyclosilicate 5 gm 08/14/23 11:34 08/14/23 11:52 Sodium Zirconium Cyclosilicate 5 Gm Powd.Pack PO 08/14/23 11:35 5 gm ONCE ONE Administration Medical Decision Making Medical Decision Making MDM Narrative: 53 yo male with PMH of DM, NANCY, CKD, HTN, CHF, obesity, prior elevated K.. Patient has no complaints at this time will repeat labs, start on HCO3 insulin / dextrose and calcium dose x 1 IV and albuterol given peaked t waves and oral lokelma - Cr is at his baseline. Will repeat and if normal will DC home vs back to surgery Differential Diagnosis Differential Diagnoses: The differential diagnosis associated with the presentation includes known elevated K Admission/Observation Consideration of admission/observation: Escalation of care including admission/observation considered K 5.2 on recheck stable for DC Lab Data [facility] Lab Attestation statement: I reviewed the patient's lab results. 08/14/23 14:32 Labs: Lab Results 08/14/23 08/14/23 08/14/23 Range/Units 11:46 14:32 14:35 Sodium 138 (135-145) mmol/L Potassium 6.4 H* 5.2 H (3.3-5.1) mmol/L Chloride 113 H (96-108) mmol/L Carbon Dioxide 21 L (22-29) mmol/L Anion Gap 10 L (12-20) BUN 45 H (9-16) mg/dL Creatinine 1.45 H (0.5-1.4) mg/dL Estim Creat Clear Calc 71.9 Estimated GFR 51 POC Glucose 120 H (60-115) mg/dL Random Glucose 130 H (60-115) mg/dL Calcium 9.0 (8.4-10.2) mg/dL Independent Interpretation I performed an independent interpretation of an: EKG Interpretation: Rate: 49 Rhythm: sinus bradycardia [place]: normal Normal P waves. Normal LUCAS. Normal QRS complex. ST T wave : no MARGARITO but peaked t waves in V3, V4, V5 qTC: 375 prior studies: hx of peaked t waves in past The study has been interpreted contemporaneously by me. . Radiology Impression Discussion of test interpretation with radiology: I have reviewed the radiologist's reading. Independent Historian Clinical information obtained from an independent historian. History obtained from or confirmed by: Other External Record Review External record reviewed: Inpatient record Prescription Management I considered prescription management with: Other (lokelma) Discharge Plan Discharge Clinical Impression: Acute hyperkalemia Patient Disposition: Home, Self-Care Instructions: Hyperkalemia (ED) Additional Instructions: repeat potassium level with your doctor on Thursday - please call to get lab appointment. return for weakness, numbness, worsening symptoms. start lokelma tomorrow take it for 3 days. you need to follow up as well with kidney doctor. Prescriptions: New Lokelma 5 gram powder in packet 5 g PO DAILY 3 Days Qty: 11 0RF No Action (DME) pen needle, diabetic [BD Toshai 2nd Gen Pen Needle] 32 gauge x 5/32 needle See Rx Instructions .ROUTE .COMPLEX Qty: 120 8RF Dose Instruction: USE FOUR TIMES A DAY OR DIRECTED. Rx Instructions: USE FOUR TIMES A DAY OR DIRECTED. (DME) FreeStyle Lite Strips Strip Qty: 100 4RF Rx Instructions: Test four times a day or as directed. (DME) lancets [FreeStyle Lancets] 28 gauge misc See Rx Instructions .ROUTE .COMPLEX Qty: 100 2RF Dose Instruction: TEST FOUR TIMES A DAY OR DIRECTED. Rx Instructions: TEST FOUR TIMES A DAY OR DIRECTED. zinc acetate 25 mg (zinc) capsule 50 mg PO BID 90 Days Qty: 360 1RF Rx Instructions: substitute of 30 mg capsules ok carvedilol 12.5 mg tablet 12.5 mg PO BID Qty: 60 3RF Rx Instructions: must administer with a meal/food REPLACES METOPROLOL empagliflozin 10 mg tablet 10 mg PO DAILY Qty: 30 3RF furosemide 40 mg tablet 40 mg PO QAM Qty: 30 3RF valsartan 80 mg tablet 80 mg PO DAILY Qty: 60 4RF metformin 1,000 mg tablet 1,000 mg PO BID Qty: 180 1RF atorvastatin 40 mg tablet 40 mg PO BEDTIME 30 Days Qty: 30 3RF ferrous sulfate 325 mg (65 mg iron) tablet 325 mg PO TID 30 Days Qty: 90 3RF multivitamin Tablet 1 tab PO DAILY omega-3 fatty acids Capsule 1,000 mg PO TID (DME) blood-glucose meter [FreeStyle Lite Meter] Kit Qty: 1 0RF Rx Instructions: As Directed insulin glargine [Basaglar KwikPen U-100 Insulin] 100 unit/mL (3 mL) insulin pen 15 unit subcut QPM Rx Instructions: takes at 1430 daily fluticasone propionate [Flonase Allergy Relief] 50 mcg/actuation spray,suspension 1 spray intranasal BID PRN (Reason: Allergic Symptoms) Rx Instructions: administer into each nostril (DME) comp.stocking,knee,long,medium Misc See Rx Instructions .Route Qty: 12 0RF Rx Instructions: As directed cholecalciferol (vitamin D3) 50 mcg (2,000 unit) capsule 50 mcg PO DAILY Qty: 30 11RF Print Language: Tuval[place]
[2023-08-14] MEDS: Sodium Zirconium Cyclosilicate 5 GM POWD.PACK PO (11:52)
[2023-08-14] MEDS: Calcium Gluconate/NaCl,Iso-Osm 2 GM/100 ML PLAST..BAG IV (11:52)
[2023-08-14] MEDS: Albuterol Sulfate (0.083%) 2.5 MG/3 ML VIAL.NEB 5 MG INHALE (12:06)
[2023-08-14 12:07] VITALS: PULSE 61; RESP 16; O2SAT 99
[2023-08-14 12:14] LABS: Anion Gap 10 (12-20); Blood Urea Nitrogen 45 mg/dL (9-16); Carbon Dioxide 21 mmol/L (22-29); Chloride 113 mmol/L (96-108); Creatinine Clr Calc Pharmacy 71.9; Estimated Glomerular Filt Rate 51; Glucose Random 130 mg/dL (60-115); Potassium 6.4 mmol/L (3.3-5.1); Sodium 138 mmol/L (135-145)
[2023-08-14] MEDS: Sodium Bicarbonate 8.4% 50 MEQ/50 ML SYRINGE IVPUSH (12:54)
[2023-08-14] MEDS: Dextrose 10 % 250 ML 750 ML IV (12:59)
[2023-08-14 13:02] VITALS: BP 156/66; PULSE 63; RESP 12; TEMP 36.9; O2SAT 98
[2023-08-14] MEDS: Insulin Regular, Human 100 UNIT/ML 3 ML VIAL IVPUSH (13:23)
[2023-08-14 14:39] LABS: Glucose, Whole Blood 120 mg/dL (60-115)
[2023-08-14 14:55] LABS: Potassium 5.2 mmol/L (3.3-5.1)
[2023-08-14 16:14] VITALS: BP 167/72; PULSE 66; RESP 16; TEMP 36.6; O2SAT 97
== END 2023-08-14 16:15 | disposition home or self-care (01) ==
PROVIDERS: Emergency Provider Emergency Medicine
DX: E87.5 Hyperkalemia (principal); E11.22 Type 2 diabetes mellitus with diabetic chronic kidney disease; I13.0 Hypertensive heart and chronic kidney disease with heart failure and stage 1 through stage 4 chronic kidney disease, or unspecified chronic kidney disease; N18.9 Chronic kidney disease, unspecified; I50.9 Heart failure, unspecified
CPT/HCPCS: 36415; 80048; 82947; 84132; 93005; 94640; 96365; 96375; 99284; J0613

== ENCOUNTER → 2023-08-14 11:34 | Outpatient (BNV) | payer OTHER, SELFPAY | PROVIDERS: Emergency Provider Emergency Medicine; Visit Provider Internal Medicine | DX: R00.1 Bradycardia, unspecified (principal) | CPT/HCPCS: 93010 ==

== ENCOUNTER 2023-08-17 08:15 | Outpatient (REF) | payer OTHER, SELFPAY ==
[2023-08-17 09:46] LABS: B Type Natriuretic Peptide 160 pg/mL (<100)
[2023-08-17 09:50] LABS: Anion Gap 10 (12-20); Blood Urea Nitrogen 48 mg/dL (9-16); Calcium 9.2 mg/dL (8.4-10.2); Carbon Dioxide 22 mmol/L (22-29); Chloride 111 mmol/L (96-108); Estimated Glomerular Filt Rate 53; Glucose Random 147 mg/dL (60-115); Potassium 5.8 mmol/L (3.3-5.1); Sodium 137 mmol/L (135-145)
== END 2023-08-17 08:16 | disposition home or self-care (01) ==
LOC: HO.LAB 08:15
PROVIDERS: Internal Medicine Cardiovascular Disease; PCP Nurse Practitioner Family; Referring Provider Nurse Practitioner Family; Visit Provider Family Medicine
DX: R06.09 Other forms of dyspnea (principal); I50.9 Heart failure, unspecified
CPT/HCPCS: 36415; 80048; 83880

== ENCOUNTER 2023-09-01 10:41 | Outpatient (AMB) | payer OTHER, SELFPAY ==
--- NOTE | 2023-09-01 10:43 | A.OFFPC_ITS ---
Vital Signs 09/01/23 10:44 Height 5 ft 8 in Weight 242 lb 2 oz BMI 36.8 BP 136/74 Blood Pressure Location Rt brachial Position Sitting Respiration 14 Pulse 65 Pulse Source Pulse Oximeter Temp 97.7 F Temp Source Temporal Artery Scan Pulse Oximetry (%) 99 Oxygen Delivery Method Room Air Intake Visit Reasons: CPE Addiction Specialist Required: No Accompanied by: Self / Same As Patient Allergies No Known Allergies Allergy (Verified 09/01/23 10:58) Medication List - Last Reconciled 09/01/23 by Quique Tatum CNP atorvastatin 40 mg PO BEDTIME 30 days blood sugar diagnostic (FreeStyle Lite Strips) Test four times a day or as directed. blood-glucose meter (FreeStyle Lite Meter kit) As Directed carvedilol 12.5 mg PO BID cholecalciferol (vitamin D3) 50 mcg PO DAILY comp.stocking,knee,long,medium As directed empagliflozin 10 mg PO DAILY ferrous sulfate 325 mg PO TID 30 days fluticasone propionate 50 mcg/actuation (Flonase Allergy Relief) 1 spray intranasal BID PRN furosemide 40 mg PO QAM insulin glargine (Basaglar KwikPen U-100 Insulin) 15 units subcut QPM lancets (FreeStyle Lancets) TEST FOUR TIMES A DAY OR DIRECTED. metformin 1,000 mg PO BID multivitamin 1 tab PO DAILY omega-3 fatty acids 1,000 mg PO TID pen needle, diabetic (BD Toshia 2nd Gen Pen Needle) USE FOUR TIMES A DAY OR DIRECTED. sodium zirconium cyclosilicate (Lokelma) 5 grams PO DAILY 3 days valsartan 80 mg PO DAILY zinc acetate 50 mg (2 x 25 mg (zinc)) PO BID 3 months Tobacco use date assessed: 08/03/23 Dental Screening Dental Screen Date: 09/01/23 Did you have a dental visit in the last 12 months?: No Did you have a dental problem in the last 6 months where you did not have access to dental care?: No Was dental information given to patient?: Patient has dentist HPI HPI Comments History of Present Illness Details 53-year-old male presents for an extende d physical exam He has past medical history significant for HTN, DM, CKD, CHF, and NANCY He admits to taking his medications as prescribed without adverse reactions He offers no complaints and denies acute symptoms at this time He notes that he has been making healthy dietary choices and walking everyday He had surgery schedule for left 4th toe amputation on 08/14/2023. However, his potassium was elevated, 5.9, at preop. He was sent to the ED for evaluation and treatment. He was treated and discharged home on lokelma 5 g daily for 3 days. He was advised to repeat potassium level with his PCP and follow-up with Nephrology. His recent potassium level on 08/17/2023 is 5.8. He has a follow-up appointment with Nephrology on 09/16/2023 He has never had a colonoscopy done He has not been vaccinated for shingles He is up-to-date on the flu vaccine He notes that he has not seen his dentist in over a year Non cigarette smoker, drinks 6 pack beer on Saturdays, smokes marijuana 1-2 joints on weekends He notes that his last eye exam was over a year ago in [place]. His last eye appointment was cancelled He has not been evaluated by a cutter plastics rolls He is followed by [facility] Cardiology, Nephrology, Neurology, Hematology, and vascular surgery FORMERLY [facility], [facility] Medical History Elevated cholesterol Iron deficiency anemia CHF (congestive heart failure) Chronic renal insufficiency Diabetic nephropathy Necrotizing subcutaneous infection Hypertension Type 2 diabetes Surgical History History of pyloromyotomy Status post incision and drainage [place] teeth removed Family History Mother Diabetes Maternal Uncle Diabetes Sister Multiple sclerosis Social History Household Members: Spouse Both parents involved: No Caregiver staying overnight: No Housing: House Are you a primary healthcare social worker to a significant other at home: No Do you presently have visiting nurse or other home services: No 75 years or older and lives alone: No Alcohol intake: current Alcohol intake frequency: a few times a week Alcohol type: beer Patient Tobacco Use Status: Former Tobacco user Quit Date: ~age 22 Tobacco use type: Cigarette Years Smoked: 4 e-Cigarette/Vaping Use: Never Used Second Hand Smoke Exposure: Yes Substance Use Type: Marijuana Advance Directives Date on File: 05/07/23 service: No Current occupational status: employed Current occupation: [employer] Cognitive needs: No Hearing needs: No Vision needs: No Questionnaire PHQ-9 Over the last 2 weeks, how often have you been bothered by any of the following problems? 1. Little interest or pleasure in doing things: not at all 2. Feeling down, depressed, or hopeless: not at all 3. Trouble falling or staying asleep, or sleeping too much: not at all 4. Feeling tired or having little energy: not at all 5. Poor appetite or overeating: not at all 6. Feeling bad about yourself - or that you are a failure or have let yourself or your family down: not at all 7. Trouble concentrating on things, such as reading the newspaper or watching television: not at all 8. Moving or speaking so slowly that other people could have noticed. Or the opposite - being so fidgety or restless that you have been moving around a lot more than usual: not at all 9. Thoughts that you would be better off or of hurting yourself in some way: not at all Total score: 0 Depression Screening Interpretation: Negative Depression Screening Done: Yes [id number] - PHQ-9 Billing: Yes Source: Developed by Drs. Higinio Rodriguez, Olivia Rayo, Edilberto Freeman and colleagues, with an educational smitha from [employer]. Thrive Questionnaire Date Thrive assessed: 09/01/23 I am a: Patient What is your living situation today?: I have a steady place to live Within the past 12 months, did the food you bought not last and you didn't have the money to get more?: Never true Within the past 12 months, did you worry whether your food would run out before you got money to buy more?: Never true Do you have trouble paying for medicines?: Yes Do you have trouble getting transportation to medical appointments?: No Do you have trouble paying your heating and electricity bill?: No Do you have trouble taking care of your child, family member or friend?: No Do you have trouble with day-to-day activities such as bathing, preparing meals, shopping, managing finances, etc.?: No Are you currently unemployed and looking for a job?: No Are you interested in more education?: No Please select the resources that you would like help with: None Currently or been in a relationship where the following occur: no concerns reported THRIVE Score: 0 AUDIT C Alcohol Use Questionnaire (AUDIT-C) 1. How often do you have a drink containing alcohol?: 2-4 times a month 2. How many drinks containing alcohol do you have on a typical day when you are drinking?: 1 or 2 3. How often do you have six or more drinks on one occasion?: Never Total Score: 2 UTE-7 AMB Questionnaire UTE-7 Date UTE - 7 assessed: 09/01/23 Feeling nervous, anxious, or on edge: 1 = Several days Not being able to stop or control worryin = Several days Worrying too much about different things: 1 = Several days Trouble relaxin = Several days Being so restless that it is hard to sit still: 0 = Not at all Becoming easily annoyed or irritable: 0 = Not at all Feeling afraid as if something awful might happen: 1 = Several days Total UTE-7 score (0-4 normal; 5-9 mild; 10-14 moderate; 15-21 severe): 5 Source: Developed by Drs. Higinio Rodriguez, Olivia Rayo, Edilberto Freeman and colleagues, with an educational smitha from [employer]. UTE-7 Assessment Billing UTE-7 Assessment Tool: UTE-7 Assessment 38435 Review of Systems Const Details: Denies chills, Denies fatigue, Denies fever(s), Denies headache(s) and Denies weakness HEENT Denies change in vision, Denies dizziness, Denies headache(s), Denies hearing loss, Denies nasal congestion, Denies sinus pain, Denies sinus pressure and Denies sore throat Card Denies chest pain, Denies lightheadedness, Denies dyspnea and Denies other (palpitations) Resp Denies cough, Denies dyspnea and Denies wheezing GI Denies abdominal pain, Denies melena, Denies hematochezia, Denies change in bowel habits, Denies dyspepsia and Denies nausea Denies hematuria and Denies dysuria Musc Denies abnormal gait, Denies myalgias, Denies arthralgias, Denies numbness and Denies tingling Skin/Breast Denies rash, Denies unusual bruising and Denies wounds Neuro Denies abnormal gait, Denies dizziness, Denies headache(s), Denies memory loss, Denies numbness, Denies Sensory deficit (Neuro), Denies tingling and Denies weakness Psych Denies anxiety, Denies depression and Denies memory loss Endo Denies cold intolerance, Denies fatigue, Denies heat intolerance, Denies polydipsia and Denies polyuria [place]/Lymph Denies easy bleeding and Denies easy bruising Aller/Immun Denies wheezing Physical exam (Primary Care) Vital Signs: Last Vital Signs Temp 97.7 F 09/01/23 10:44 Pulse 65 09/01/23 10:44 Resp 14 09/01/23 10:44 BP 136/74 09/01/23 10:44 Pulse Ox 99 09/01/23 10:44 Oxygen Delivery Method Room Air 09/01/23 10:44 BMI result Body Mass Index 36.8 Tobacco/Smoking Status: Tobacco use Status Tobacco use date assessed 08/03/23 09/01/23 10:48 Patient Tobacco Use Status Former Tobacco user 09/01/23 10:52 Tobacco use type Cigarette 09/01/23 10:52 e-Cigarette/Vaping Use Never Used 09/01/23 10:52 PHQ-9: PHQ-9 Score PHQ-9: Total score 0 09/01/23 10:59 Depression Screening Interpretation: Negative Thrive Assessment: Date of Thrive Assessment Date Thrive assessed 09/01/23 09/01/23 10:54 Currently or been in a relationship where the following occur: no concerns reported Const Other: General: no acute distress, well developed, alert and awake Nutritional Appearance: well nourished Orientation/consciousness: patient oriented x3 HENMT Head: Yes normocephalic and Yes atraumatic Ears: hearing grossly normal bilaterally and TM's normal bilaterally General nose exam: Normal external nose present and Normal nares present Mouth: Normal oral and palatal mucosa present and moist mucous membranes Teeth and gingiva: dentition normal Throat: Yes oropharynx normal Eyes Pupils: Equal, round and reactive pupils present and Pupil accommodation reflex normal EOM: EOMs intact bilaterally Neck Neck: Yes normal visual inspection, Yes no lymphadenopathy and Yes trachea midline Thyroid: Thyroid normal Carotids: no bruits Lymphatic: no lymphadenopathy noted Chest Chest palpation & inspection: normal inspection of the chest Resp Effort & Inspection: normal respiratory effort Auscultation: clear to auscultation bilaterally Cardio Rate: regular rate Rhythm: regular rhythm Heart sounds: S1 normal heart sound present, S2 normal heart sound present, no gallops, no murmurs and no rubs Bruits: no abdominal aortic bruits and no carotid bruits GI Palpation (GI): No Abdominal aortic bruit present, Soft to palpation, nontender, No hepatosplenomegaly present and No Rebound tenderness present Auscultation: normal bowel sounds General: Yes no CVA tenderness Back/Spine/Pelvis Back: no CVA tenderness Cervical Spine: cervical ROM normal and No Cervical spine tenderness Thoracic/Lumbar Spine: thoraco-lumbar ROM normal, No pain with thoraco-lumbar ROM, No thoracic spinal tenderness and No lumbar spinal tenderness Skin General: warm and dry. Normal skin color. Normal skin turgor Lesions: no lesions Rashes: no rashes Trauma: no lacerations or abrasions Wounds: no wounds. Wound to left 4th toe completely healed w/o scab Nails: normal Neuro General: patient oriented x3, gait normal and CN's II-XI intact bilaterally Cranial nerves: Yes Equal, round and reactive pupils present Cognition (Neuro): normal cognition Gait exam (Neuro): Normal gait present Motor exam (neuro): 5/5 motor strength present throughout Sensory Exam: No Sensory deficit (Neuro) Deep tendon reflexes (DTR's): Right patellar reflex intensity grade: 2+ and Left patellar reflex intensity grade: 2+ Extrem General: Yes normal to inspection, No edema and No calf tenderness Psych Appearance: grossly normal Affect: normal affect Attitude: cooperative Thought process: Normal thought process present Results AMB Hemoglobin A1c AMB Hemoglobin A1c 6.2 % Last Edit by SAI Mcdowell on 09/01/23 11:0 7 Results Reviewed Results Reviewed: Laboratory Last Values Hgb A1c (Clinic) 6.2 % (4.0-6.0) H 09/01/23 10:55 Assessment and Plan Assessment & Plan (1) Normal physical examination, routine: Code(s): Z00.00 - Encounter for general adult medical examination without abnormal findings Plan: No significant physical restrictions or limitations noted Continue current treatment regimen Healthy diet and routine exercise encouraged Encouraged to avoid alcohol consumption or consuming more than 2 drinks in 1 sitting Continue to follow-up with specialists as planned Encouraged to call and make an appointment with his dentist for routine dental care and monogram operator for annual eye exam Encouraged to get fasting labs done before his next visit Follow-up in 3 months for hypertension and diabetes or return sooner with symptoms or concerns Verbalized understanding and agreed with treatment plan (2) Type 2 diabetes: Code(s): E11.9 - Type 2 diabetes mellitus without complications Qualifiers: Diabetes mellitus complication status: without complication Diabetes mellitus salvage determiner insulin use: with salvage determiner use Qualified Code(s): E11.9 - Type 2 diabetes mellitus without complications; Z79.4 - buttermaker (current) use of insulin Plan: A1c today is 6.2%, within goal of less than 7.0% Recent LDL is 44, goal is less than 100 Continue current treatment regimen ADA diet and routine exercise encouraged Referred to Podiatry Encouraged to call and make an appointment with Ophthalmology for an eye exam Follow-up in 3 months or return sooner with symptoms or concerns Verbalized understanding and agreed with treatment plan (3) Hypertension: Code(s): I10 - Essential (primary) hypertension Qualifiers: Hypertension type: primary hypertension Qualified Code(s): I10 - Essential (primary) hypertension Plan: Blood pressure is 136/74, slightly above goal of less than 130/80 Continue current treatment regimen Low-sodium diet encouraged Follow-up in 3 months Verbalized understanding and agreed with treatment plan (4) Vaccine counseling: Code(s): Z71.85 - Encounter for immunization safety counseling Plan: He has not been vaccinated for shingles Instructed on importance of vaccinations and encouraged to get vaccinated for shingles. He may request the vaccines from the local pharmacy Verbalized understanding and agreed with treatment plan (5) Colon cancer screening: Code(s): Z12.11 - Encounter for screening for malignant neoplasm of colon Plan: He has never had a colonoscopy Referred to [facility] gastroenterology for colonoscopy Orders: Orders AMB Hemoglobin A1c Today E11.65 - Type 2 diabetes mellitus with hyperglycemia, E11.9 - Type 2 diabetes mellitus without complications, Z79.4 - buttermaker ( current) use of insulin PSA, Ultra Sensitive Today Z00.00 - Encounter for general adult medical examination without abnormal findings Lipid Panel Today E11.9 - Type 2 diabetes mellitus without complications, Z79.4 - buttermaker (current) use of insulin Potassium Today E87.5 - Hyperkalemia Microalbumin, Random (w Creat) Today E11.9 - Type 2 diabetes mellitus without complications, Z79.4 - buttermaker (current) use of insulin Referrals Gastroenterology Referral Z12.11 - Encounter for screening for malignant neoplasm of colon Coding Level of Care Code Est Pt Level 4 (87813) Est Pt Prev Care 40-64y(36406) Diagnoses Normal physical examination, routine Z00.00 Type 2 diabetes mellitus without complication, with long-term current use of insulin E11.9; Z79.4 Diabetes mellitus complication status: without complication Diabetes mellitus assisted insulin use: with salvage determiner use Primary hypertension I10 Hypertension type: primary hypertension Vaccine counseling Z71.85 Colon cancer screening Z12.11 Additional Codes UTE-7 Assessment Billing - UTE-7 Assessment Tool: UTE-7 Assessment 17243 ([id number])
[2023-09-01 10:44] VITALS: BP 136/74; PULSE 65; RESP 14; TEMP 36.5; O2SAT 99; BMI 36.8
== END 2023-09-01 11:33 | disposition home or self-care (01) ==
PROVIDERS: PCP Nurse Practitioner Family; Visit Provider Nurse Practitioner Family
DX: Z00.00 Encounter for general adult medical examination without abnormal findings (principal); E11.9 Type 2 diabetes mellitus without complications; Z79.4 Long term (current) use of insulin; I10 Essential (primary) hypertension; Z71.85 Encounter for immunization safety counseling; Z12.11 Encounter for screening for malignant neoplasm of colon; E11.65 Type 2 diabetes mellitus with hyperglycemia
CPT/HCPCS: 83036; 99214; 99396

== ENCOUNTER 2023-09-02 08:25 | Outpatient (REF) | payer OTHER, SELFPAY ==
[2023-09-02 11:49] LABS: Anion Gap 14 (12-20); Blood Urea Nitrogen 41 mg/dL (9-16); Calcium 9.5 mg/dL (8.4-10.2); Carbon Dioxide 21 mmol/L (22-29); Chloride 106 mmol/L (96-108); Cholesterol 103 mg/dL (<200); Estimated Glomerular Filt Rate 51; Glucose Random 115 mg/dL (60-115); HDL Cholesterol 34 mg/dL (>40); LDL Cholesterol Calculated 39 mg/dL (<100); Potassium 4.9 mmol/L (3.3-5.1); Sodium 136 mmol/L (135-145); Triglycerides 154 mg/dL (<150)
[2023-09-02 12:01] LABS: Creatinine Urine 100.49 mg/dL; Microalbum/Creatinine Ratio Ur 1329.4 ug/mg cr (<30)
[2023-09-07 11:28] LABS: PSA, Ultra Sensitive 0.38 ng/mL
== END 2023-09-02 08:26 | disposition home or self-care (01) ==
LOC: HO.10HDL 08:25
PROVIDERS: Visit Provider Nurse Practitioner Family
DX: Z00.00 Encounter for general adult medical examination without abnormal findings (principal); Z12.5 Encounter for screening for malignant neoplasm of prostate; E11.9 Type 2 diabetes mellitus without complications; I50.9 Heart failure, unspecified; R06.09 Other forms of dyspnea; E87.5 Hyperkalemia; Z79.4 Long term (current) use of insulin
CPT/HCPCS: 36415; 80048; 80061; 82043; 82570; 84153

== ENCOUNTER 2023-09-15 08:08 | Outpatient (REF) | payer OTHER, SELFPAY ==
[2023-09-15 09:41] LABS: Anion Gap 13 (12-20); Blood Urea Nitrogen 39 mg/dL (9-16); Carbon Dioxide 20 mmol/L (22-29); Chloride 108 mmol/L (96-108); Estimated Glomerular Filt Rate 50; Sodium 136 mmol/L (135-145)
== END 2023-09-15 08:09 | disposition home or self-care (01) ==
LOC: HO.LAB 08:08
PROVIDERS: PCP Nurse Practitioner Family; Visit Provider Internal Medicine Nephrology
DX: E11.21 Type 2 diabetes mellitus with diabetic nephropathy (principal); E11.22 Type 2 diabetes mellitus with diabetic chronic kidney disease; N18.30 Chronic kidney disease, stage 3 unspecified; N17.9 Acute kidney failure, unspecified
CPT/HCPCS: 36415; 80051; 82565; 84520

== ENCOUNTER 2023-09-16 10:05 | Outpatient (AMB) | payer OTHER, SELFPAY ==
--- NOTE | 2023-09-16 10:13 | HO.NEPHOV ---
Vital Signs 09/16/23 10:22 Height 5 ft 8 in Weight 241 lb 8 oz BMI 36.7 BP 118/70 Blood Pressure Location Rt brachial Position Sitting Pulse 58 Pulse Source Pulse Oximeter Pulse Oximetry (%) 97 Oxygen Delivery Method Room Air Intake Visit Reasons: EZRA/ 3 MO FU/ LVM Manager Convention Required: No Accompanied by: Self / Same As Patient Allergies No Known Allergies Allergy (Verified 09/16/23 10:24) HPI Comments Details: I had the privilege of seeing River in follow up of his chronic kidney disease. He is diabetic and hypertensive with proteinuria. He recently had diastolic heart failure. His serum potassium has been recently high normal. He had been on angiotensin receptor leslie. He had been feeling lightheadedness with hyperkalemia and metabolic acidosis. His spironolactone was discontinued and his valsartan was reduced to once a day. He was also started on sodium bicarbonate 650 mg daily for 2 weeks along with Kionex 30 g daily for 3 days at that time. His BMI has been high. He has been having an open wound on the toe which had been healing. He thinks he may have osteomyelitis and is going to see wound care. He denies any active chest pain, shortness of breath, paroxysmal nocturnal dyspnea, orthopnea, joint swellings, epistaxis, sinusitis, skin rashes, history of renal artery stenosis, history of carotid stenosis, large, vomiting, diarrhea, hematuria. He has been taking Jardiance. He had been on Lipitor and his fenofibrate has been put on hold . His recent serum creatinine has been 1.49 [facility] Medical History Elevated cholesterol Iron deficiency anemia CHF (congestive heart failure) Chronic renal insufficiency Diabetic nephropathy Necrotizing subcutaneous infection Hypertension Type 2 diabetes Surgical History History of pyloromyotomy Status post incision and drainage [place] teeth removed Family History Mother Diabetes Maternal Uncle Diabetes Sister Multiple sclerosis Social History Household Members: Spouse Both parents involved: No Caregiver staying overnight: No Housing: House Are you a primary rn patient care to a significant other at home: No Do you presently have visiting nurse or other home services: No 75 years or older and lives alone: No Alcohol intake: current Alcohol intake frequency: a few times a week Alcohol type: beer Patient Tobacco Use Status: Former Tobacco user Quit Date: ~age 22 Tobacco use type: Cigarette Years Smoked: 4 e-Cigarette/Vaping Use: Never Used Second Hand Smoke Exposure: Yes Substance Use Type: Marijuana Advance Directives Date on File: 05/07/23 service: No Current occupational status: employed Current occupation: [employer] Cognitive needs: No Hearing needs: No Vision needs: No Physical Exam Const General: comfortable and no acute distress Orientation/consciousness: patient oriented x3 HEENT Head: Yes normocephalic Mouth: Normal oral and palatal mucosa present Eyes EOM: EOMs intact bilaterally Neck Neck: Yes supple Resp Auscultation: clear to auscultation bilaterally Cardio Jugular venous distension: no JVD Rate: regular rate GI Palpation (GI): Soft to palpation Auscultation: normal bowel sounds General: Yes no CVA tenderness Back/Spine/Pelvis Back: no CVA tenderness Skin General skin exam: no rashes or lesions noted Neuro General: patient oriented x3 and moves all extremities Extrem General: Yes no pedal edema Results Reviewed Nephrology Results: Sodium 136 mmol/L (135-145) 09/15/23 Potassium 5.0 mmol/L (3.3-5.1) 09/15/23 Chloride 108 mmol/L (96-108) 09/15/23 Carbon Dioxide 20 mmol/L (22-29) L 09/15/23 BUN 39 mg/dL (9-16) H 09/15/23 Creatinine 1.49 mg/dL (0.5-1.4) H 09/15/23 Calcium 9.5 mg/dL (8.4-10.2) 09/02/23 Urine Creatinine 100.49 mg/dL 09/02/23 Assessment & Plan Assessment & Plan (1) Diabetic nephropathy: Code(s): E11.21 - Type 2 diabetes mellitus with diabetic nephropathy Category: Medical Qualifiers: Diabetes mellitus type: type 2 Qualified Code(s): E11.21 - Type 2 diabetes mellitus with diabetic nephropathy (2) CKD stage 3 due to type 2 diabetes mellitus: Code(s): E11.22 - Type 2 diabetes mellitus with diabetic chronic kidney disease; N18.30 - Chronic kidney disease, stage 3 unspecified Category: Medical (3) Hypertension: Code(s): I10 - Essential (primary) hypertension Category: Medical Qualifiers: Hypertension type: primary hypertension Qualified Code(s): I10 - Essential (primary) hypertension Ina Holman has 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 He has obesity. He has history of poorly controlled diabetes mellitus. He has proteinuria. He has underlying diabetic nephropathy. He has H/O decompensated diastolic heart failure. He might have had tubular injury the time. He has history of open wound in the leg which has been healing. His urine output is good. There is no recent suspect any obstructive uropathy. He had been on spironolactone which has been discontinued and valsartan, dose of which has been adjusted. He is on fenofibrate which he can restart now. His renal USS was unremarkable. He does not need a renal biopsy now. He was counseled to maintain good blood pressure and good blood sugar control. All these have been discussed in detail. Further management is pending evolving data. All questions answered. Follow-up appointment given Orders: Orders Blood Urea Nitrogen Today E11.21 - Type 2 diabetes mellitus with diabetic nephropathy, E11.22 - Type 2 diabetes mellitus with diabetic chronic kidney disease, I10 - Essential (primary) hypertension, N18.30 - Chronic kidney disease, stage 3 unspecified Electrolytes Today E11.21 - Type 2 diabetes mellitus with diabetic nephropathy, E11.22 - Type 2 diabetes mellitus with diabetic chronic kidney disease, I10 - Essential (primary) hypertension, N18.30 - Chronic kidney disease, stage 3 unspecified Creatinine Today E11.21 - Type 2 diabetes mellitus with diabetic nephropathy, E11.22 - Type 2 diabetes mellitus with diabetic chronic kidney disease, I10 - Essential (primary) hypertension, N18.30 - Chronic kidney disease, stage 3 unspecified Coding Level of Care Code Est Pt Level 4 (02720) Diagnoses Diabetic nephropathy associated with type 2 diabetes mellitus E11.21 Diabetes mellitus type: type 2 CKD stage 3 due to type 2 diabetes mellitus E11.22; N18.30 Primary hypertension I10 Hypertension type: primary hypertension
[2023-09-16 10:22] VITALS: BP 118/70; PULSE 58; O2SAT 97; BMI 36.7
== END 2023-09-16 10:31 | disposition home or self-care (01) ==
PROVIDERS: PCP Nurse Practitioner Family; Visit Provider Internal Medicine Nephrology
DX: E11.21 Type 2 diabetes mellitus with diabetic nephropathy (principal); E11.22 Type 2 diabetes mellitus with diabetic chronic kidney disease; N18.30 Chronic kidney disease, stage 3 unspecified; I10 Essential (primary) hypertension
CPT/HCPCS: 99214

== ENCOUNTER → 2023-09-16 10:05 | Outpatient (BNVA) | payer OTHER, SELFPAY | PROVIDERS: PCP Nurse Practitioner Family; Visit Provider Internal Medicine Nephrology ==

== ENCOUNTER 2023-09-17 10:15 | Outpatient (AMB) | payer OTHER, SELFPAY ==
--- NOTE | 2023-09-17 10:24 | A.OFFVIS_ITS ---
Intake Visit Reasons: LE swelling Intake Note: New patient presents for bilateral leg swelling . Patient states he was supposed to have a toe amputation with wound care but that he had a bone infection and high potassium so he could not have the surgery. The wound he had on his toe is healed so he is unsure if he needs the amputation or not. His left leg is slightly swollen but that it went down the last week or so. Patient is type 2 diabetic but is a non smoker. Allergies No Known Allergies Allergy (Verified 09/17/23 10:27) HPI HPI LE swelling: Details: Complex 53-year-old gentleman presents for evaluation regarding left lower extremity. He had a nonhealing ulcer on the left 4th toe. Was actually seen in the hospital and subsequently [facility]. The wound actually went on to heal. He has persistent swelling of that left lower extremity. He now presents to us for vascular evaluation. Of note he has a nonsmoker but he is a diabetic. He is being maintained on a statin. [facility] Medical History Elevated cholesterol Iron deficiency anemia CHF (congestive heart failure) Chronic renal insufficiency Diabetic nephropathy Necrotizing subcutaneous infection Hypertension Type 2 diabetes Surgical History History of pyloromyotomy Status post incision and drainage [place] teeth removed Family History Mother Diabetes Maternal Uncle Diabetes Sister Multiple sclerosis Social History Household Members: Spouse Both parents involved: No Caregiver staying overnight: No Housing: House Are you a primary youth care professional to a significant other at home: No Do you presently have visiting nurse or other home services: No 75 years or older and lives alone: No Alcohol intake: current Alcohol intake frequency: a few times a week Alcohol type: beer Patient Tobacco Use Status: Former Tobacco user Quit Date: ~age 22 Tobacco use type: Cigarette Years Smoked: 4 e-Cigarette/Vaping Use: Never Used Second Hand Smoke Exposure: Yes Substance Use Type: Marijuana Advance Directives Date on File: 05/07/23 service: No Current occupational status: employed Current occupation: [employer] Cognitive needs: No Hearing needs: No Vision needs: No Review of Systems Const All systems reviewed & are unremarkable except as noted in HPI and below Reports no additional complaints ENT Reports Normal hearing present Card Denies chest pain, Denies chest pain at rest, Denies chest pain with activity and Denies pedal edema Resp Denies cough GI Denies abdominal pain Musc Denies abnormal gait, Denies muscle cramps and Denies radiating pain into limb Skin/Breast Denies skin ulcer and Denies wounds Neuro Reports Normal hearing present and Denies abnormal gait Psych Reports no additional complaints Physical Exam Const General: cooperative, healthy appearing and comfortable Orientation/consciousness: oriented to person, oriented to place and oriented to time HEENT Head: Yes normal to inspection Neck Neck: Yes normal visual inspection Carotids: no bruits Chest Chest palpation & inspection: normal inspection of the chest Resp Effort & Inspection: normal respiratory effort and able to speak in complete sentences Auscultation: clear to auscultation bilaterally, no crackles, no rales, no rhonchi and no wheezes Cardio Other: Palpable DP pulses bilateral Rate: regular rate Rhythm: regular rhythm Heart sounds: S1 normal heart sound present and S2 normal heart sound present Bruits: no carotid bruits Peripheral pulses: Peripheral pulses 2+ throughout GI Inspection: Yes normal to inspection Skin Wounds: no wounds Hair: normal Neuro General: oriented to person, oriented to place and oriented to time Cranial nerves: Yes CN's II-XII intact bilaterally and Yes Normal hearing present Cognition (Neuro): normal cognition Motor exam (neuro): 5/5 motor strength present throughout Extrem Other: venous exam: +1 edema Left foot demonstrates Charcot deformity with toe ulcer healed General: No clubbing, No cyanosis and Yes edema Psych Appearance: grossly normal Mental Status: mental status grossly normal Speech and movement: Normal speech and movement present Assessment & Plan Assessment & Plan (1) Varicose veins of left lower extremity with inflammation: Code(s): I83.12 - Varicose veins of left lower extremity with inflammation Category: Medical Plan: In short patient has swelling of bilateral lower extremities. It appears to be left more so than right. I have taken the liberty of ordering venous insufficiency testing to rule that out. He will follow up with us after testing. We did discuss conservative measures including compression, elevation, and exercise. (2) Charcot foot due to diabetes mellitus: Code(s): E11.610 - Type 2 diabetes mellitus with diabetic neuropathic arthropathy Category: Medical Plan: Patient did have a nonhealing left 4th toe ulcer. It has gone on to heal. Does have the stigmata of a left Charcot foot. We did discuss appropriate foot protection. We will work him up for venous disease. Orders: Orders US venous duplex LE BI 1 Week I83.12 - Varicose veins of left lower extremity with inflammation Coding Level of Care Code New Pt Level 4 (74606) Diagnoses Varicose veins of left lower extremity with inflammation I83.12 Charcot foot due to diabetes mellitus E11.610
== END 2023-09-17 10:49 | disposition home or self-care (01) ==
PROVIDERS: PCP Nurse Practitioner Family; Visit Provider Surgery Vascular Surgery
DX: I83.12 Varicose veins of left lower extremity with inflammation (principal); E11.610 Type 2 diabetes mellitus with diabetic neuropathic arthropathy
CPT/HCPCS: 99203

== ENCOUNTER → 2023-09-17 10:15 | Outpatient (BNVA) | payer OTHER, SELFPAY | PROVIDERS: PCP Nurse Practitioner Family; Visit Provider Surgery Vascular Surgery ==

== ENCOUNTER 2023-09-30 08:21 | Outpatient (REF) | payer OTHER, SELFPAY ==
--- NOTE | ~2023-09-30 | US_ITS ---
EXAMINATION: US LOWER EXTREMITY VENOUS (REFLUX EXAM), BILATERAL CLINICAL INDICATION: Varicose veins of left lower extremity COMPARISON: None. TECHNIQUE: Color flow triplex imaging and compression Doppler was performed to evaluate both the deep and the superficial systems bilaterally. To evaluate the superficial system, the examination was performed in the upright position. Color-flow Doppler ultrasound and compression ultrasound were utilized. In addition, maneuvers were utilized to demonstrate reflux. FINDINGS: 1. DEEP VENOUS ULTRASOUND OF THE RIGHT LOWER EXTREMITY: Common Femoral Vein: Compressible, normal respiratory variation and augmented flow. Femoral Vein: Compressible, normal color flow and augmentation. Popliteal Vein: Compressible, normal augmentation. Deep Reflux: There is no evidence of reflux in the deep system in either the common femoral vein or the popliteal vein. There is no evidence of a Tse's cyst. 2. SUPERFICIAL ULTRASOUND WITH DOPPLER OF RIGHT LOWER EXTREMITY: GREAT SAPHENOUS VEIN: Saphenofemoral Junction: 0.4 cm; Reflux: 472 ms Proximal Thigh: 0.2 cm; Reflux: 0 ms Mid Thigh: 0.2 cm; Reflux: 0 ms Above Knee: 0.4 cm; Reflux: 0 ms At Knee: 0.4 cm; Reflux: 0 ms Below Knee: 0.3 cm; Reflux: 0 ms Mid Calf: 0.2 cm; Reflux: 716 ms Ankle: 0.2 cm; Reflux: 572 ms DUPLICATED MEDIAL GREAT SAPHENOUS VEIN: Diameter: None Imaged Reflux: NA DUPLICATED LATERAL GREAT SAPHENOUS VEIN: Diameter: 0.3 cm Reflux: >2804 ms SMALL SAPHENOUS VEIN: Proximal: 0.4 cm; Reflux: 0 ms Distal: 0.3 cm; Reflux: 0 ms VEIN OF GIACOMINI: None Imaged. PERFORATORS: Location: Right small saphenous vein proximally Size: 0.2 cm Reflux: 0 ms Location: Right great saphenous vein, mid thigh Size: 0.1 cm Reflux: 0 ms Location: Left great saphenous vein, distal calf Size: 0.2 cm Reflux: 0 ms VARICOSITIES: Location: None Imaged Size: NA Reflux: NA 3. DEEP VENOUS ULTRASOUND OF THE LEFT LOWER EXTREMITY: Common Femoral Vein: Compressible, normal respiratory variation and augmented flow. Femoral Vein: Compressible, normal color flow and augmentation. Popliteal Vein: Compressible, normal augmentation. Deep Reflux: There is no evidence of reflux in the deep system in either the common femoral vein or the popliteal vein. There is no evidence of a Tse's cyst. 4. SUPERFICIAL ULTRASOUND WITH DOPPLER OF LEFT LOWER EXTREMITY: GREAT SAPHENOUS VEIN: Saphenofemoral Junction: 0.8 cm; Reflux: 0 ms Proximal Thigh: 0.2 cm; Reflux: 0 ms Mid Thigh: 0.3 cm; Reflux: 0 ms Above Knee: 0.3 cm; Reflux: 0 ms At Knee: 0.3 cm; Reflux: 0 ms Below Knee: 0.4 cm; Reflux: 0 ms Mid Calf: 0.3 cm; Reflux: 0 ms Ankle: 0.3 cm; Reflux: 0 ms DUPLICATED MEDIAL GREAT SAPHENOUS VEIN: Diameter: 0.3 cm Reflux: 0 ms DUPLICATED LATERAL GREAT SAPHENOUS VEIN: Diameter: None Imaged Reflux: NA SMALL SAPHENOUS VEIN: Proximal: 0.3 cm; Reflux: 0 ms Distal: 0.3 cm; Reflux: 0 ms VEIN OF GIACOMINI: None Imaged. PERFORATORS: Location: None Imaged Size: NA Reflux: NA VARICOSITIES: Location: None Imaged Size: NA Reflux: NA US/US venous duplex LE BI IMPRESSION: Right: 1. Reflux in the right great saphenous vein of up to 716 ms in the mid calf. 2. Accessory lateral right great saphenous vein measuring 0.3 cm with reflux greater than 2804 ms. 3. Nonrefluxing, small right-sided perforators are noted. Left: The left great saphenous vein measures up to 0.8 cm at the saphenofemoral junction. No reflux. The deep venous system is patent bilaterally with no evidence of deep system reflux.
== END 2023-09-30 08:22 | disposition home or self-care (01) ==
LOC: HO.US 08:21
PROVIDERS: PCP Nurse Practitioner Family; Visit Provider Surgery Vascular Surgery
DX: I83.12 Varicose veins of left lower extremity with inflammation (principal)
CPT/HCPCS: 93970

== ENCOUNTER 2023-10-05 09:04 | Outpatient (AMB) | payer OTHER, SELFPAY ==
[2023-10-05 09:25] VITALS: BP 126/78; PULSE 56; BMI 37.9
--- NOTE | 2023-10-05 09:25 | MHC.OFFVIS ---
Vital Signs 10/05/23 09:25 Height 5 ft 8 in Weight 249 lb 1.957 oz BMI 37.9 BP 126/78 Blood Pressure Location Lt brachial Position Sitting Pulse 56 Intake Visit Reasons: 3 mth fu Intake Note: 3 month follow-up feeling good [employer] Consultant Required: No Allergies No Known Allergies Allergy (Verified 09/17/23 10:27) Medication List - Last Reconciled 10/05/23 by Jonnathan Pineda MD atorvastatin 40 mg PO BEDTIME 30 days blood sugar diagnostic (FreeStyle Lite Strips) Test four times a day or as directed. blood-glucose meter (FreeStyle Lite Meter kit) As Directed carvedilol 12.5 mg PO BID cholecalciferol (vitamin D3) 50 mcg PO DAILY comp.stocking,knee,long,medium As directed empagliflozin 10 mg PO DAILY fenofibrate 54 mg PO DAILY ferrous sulfate 325 mg PO TID 30 days fluticasone propionate 50 mcg/actuation (Flonase Allergy Relief) 1 spray intranasal BID PRN furosemide 40 mg PO QAM insulin glargine (Basaglar KwikPen U-100 Insulin) 15 units subcut QPM lancets (FreeStyle Lancets) TEST FOUR TIMES A DAY OR DIRECTED. metformin 1,000 mg PO BID multivitamin 1 tab PO DAILY omega-3 fatty acids 1,000 mg PO TID pen needle, diabetic (BD Toshia 2nd Gen Pen Needle) USE FOUR TIMES A DAY OR DIRECTED. valsartan 80 mg PO DAILY zinc acetate 50 mg (2 x 25 mg (zinc)) PO BID 3 months HPI Comments Details: River comes for follow-up. He has been doing well from cardiac perspective. His Aldactone was stopped due to hyperkalemia. He is currently on furosemide as well as Jardiance. From cardiac perspective he has been doing well. No symptoms of orthopnea, PND, leg edema. Weight has remained stable. He was started on CPAP therapy recently for obstructive sleep apnea. Renal functions are stable. He denies any exertional chest pain. He also did not have to undergo amputation of his toes. Denies any prolonged palpitations irregular heartbeat [facility] Medical History (Updated 10/05/23 @ 09:48 by Jonnathan Pineda MD) Chronic heart failure with preserved ejection fraction (HFpEF) Acute heart failure with preserved ejection fraction (HFpEF) Elevated cholesterol Iron deficiency anemia Chronic renal insufficiency Diabetic nephropathy Necrotizing subcutaneous infection Hypertension Type 2 diabetes Surgical History History of pyloromyotomy Status post incision and drainage [place] teeth removed Family History Mother Diabetes Maternal Uncle Diabetes Sister Multiple sclerosis Social History Household Members: Spouse Both parents involved: No Caregiver staying overnight: No Housing: House Are you a primary women's health care nurse practitioner to a significant other at home: No Do you presently have visiting nurse or other home services: No 75 years or older and lives alone: No Alcohol intake: current Alcohol intake frequency: a few times a week Alcohol type: beer Patient Tobacco Use Status: Former Tobacco user Tobacco use type: Cigarette Years Smoked: 4 e-Cigarette/Vaping Use: Never Used Second Hand Smoke Exposure: Yes Substance Use Type: Marijuana Advance Directives Date on File: 05/07/23 service: No Current occupational status: employed Current occupation: [employer] Cognitive needs: No Hearing needs: No Vision needs: No Review of Systems Const Denies chills, Denies fatigue, Denies fever(s), Denies frequent falls, Denies weakness, Denies weight gain and Denies weight loss ENT Denies dizziness Card Denies chest pain, Denies leg edema, Denies lightheadedness, Denies palpitations, Denies dyspnea, Denies dyspnea on exertion, Denies orthopnea and Denies other (loss of consciousness) Resp Denies cough, Denies dyspnea and Denies dyspnea on exertion GI Denies hematochezia and Denies change in stool character Musc Denies abnormal gait, Denies muscle weakness, Denies numbness, Denies radiating pain into limb and Denies tingling Neuro Denies abnormal gait, Denies dizziness, Denies frequent falls, Denies numbness, Denies tingling and Denies weakness Endo Denies fatigue and Denies palpitations Physical Exam Vital Signs: Last Vital Signs Pulse 56 10/05/23 09:25 BP 126/78 10/05/23 09:25 BMI result Body Mass Index 37.9 Const General: cooperative, healthy appearing, comfortable and no acute distress Orientation/consciousness: patient oriented x3 Neck Neck: Yes normal visual inspection Resp Effort & Inspection: normal respiratory effort Auscultation: clear to auscultation bilaterally, no crackles, no rales, no rhonchi and no wheezes Cardio Jugular venous distension: no JVD Rate: regular rate Rhythm: regular rhythm Heart sounds: S1 normal heart sound present, S2 normal heart sound present, no murmurs and no rubs Neuro General: patient oriented x3 Extrem General: Yes normal to inspection and No no pedal edema Psych Appearance: grossly normal Mental Status: mental status grossly normal Speech and movement: Normal speech and movement present Assessment & Plan Assessment & Plan (1) Chronic heart failure with preserved ejection fraction (HFpEF): Code(s): I50.32 - Chronic diastolic (congestive) heart failure Category: Medical Plan: Patient doing well from heart failure perspective. Currently appears to be clinically euvolemic and well compensated current diuretic dose. Heart failure management discussed again with him. Daily weight monitoring avoidance of salt loading was discussed. Additional diuretics as need be. Continue CPAP therapy I think this should help him significantly with heart failure syndrome. Continue aggressive control blood pressure which is currently well optimized. He is multiple comorbidities including poorly controlled diabetes as well as chronic kidney disease. Continue aggressive management of those as well. Due to hyperkalemia currently not on Aldactone therapy. Encouraged to continue to participate in regular physical activity and weight loss program. Will follow up in the clinic in 6 months time after an echocardiogram. Thank you for allowing me to partake in his care Coding Level of Care Code Est Pt Level 4 (13757) Diagnoses Chronic heart failure with preserved ejection fraction (HFpEF) I50.32
== END 2023-10-05 09:46 | disposition home or self-care (01) ==
PROVIDERS: PCP Nurse Practitioner Family; Visit Provider Internal Medicine Cardiovascular Disease
DX: I50.32 Chronic diastolic (congestive) heart failure (principal)
CPT/HCPCS: 99214

== ENCOUNTER → 2023-10-05 09:04 | Outpatient (BNVA) | payer OTHER, SELFPAY | PROVIDERS: PCP Nurse Practitioner Family; Visit Provider Internal Medicine Cardiovascular Disease ==

== ENCOUNTER 2023-11-12 09:00 | Outpatient (AMB) | payer OTHER, SELFPAY ==
--- NOTE | 2023-11-12 09:10 | MHC.OFFVIS ---
Intake Visit Reasons: f/u s/p 09/30/23 Intake Note: Patient presents for follow up [facility]. Patient has no complaints. Allergies No Known Allergies Allergy (Verified 11/12/23 09:12) HPI HPI f/u s/p 09/30/23: Details: Very pleasant 53-year-old gentleman presents for follow-up regarding venous insufficiency testing. Of note since his last visit his swelling has appeared to decrease. He is doing relatively well with compression stockings. He does have a history of diabetes and a diabetic foot ulcer. The ulcer has gone on to heal. He now presents for routine follow-up. [facility] Medical History Chronic heart failure with preserved ejection fraction (HFpEF) Acute heart failure with preserved ejection fraction (HFpEF) Elevated cholesterol Iron deficiency anemia Chronic renal insufficiency Diabetic nephropathy Necrotizing subcutaneous infection Hypertension Type 2 diabetes Surgical History History of pyloromyotomy Status post incision and drainage [place] teeth removed Family History Mother Diabetes Maternal Uncle Diabetes Sister Multiple sclerosis Social History Household Members: Spouse Both parents involved: No Caregiver staying overnight: No Housing: House Are you a primary wound care technician to a significant other at home: No Do you presently have visiting nurse or other home services: No 75 years or older and lives alone: No Alcohol intake: current Alcohol intake frequency: a few times a week Alcohol type: beer Patient Tobacco Use Status: Former Tobacco user Tobacco use type: Cigarette Years Smoked: 4 e-Cigarette/Vaping Use: Never Used Second Hand Smoke Exposure: Yes Substance Use Type: Marijuana Advance Directives Date on File: 05/07/23 service: No Current occupational status: employed Current occupation: [employer] Cognitive needs: No Hearing needs: No Vision needs: No Review of Systems Const All systems reviewed & are unremarkable except as noted in HPI and below Reports no additional complaints ENT Reports Normal hearing present Card Denies chest pain, Denies chest pain at rest, Denies chest pain with activity and Denies pedal edema Resp Denies cough GI Denies abdominal pain Musc Denies abnormal gait, Denies muscle cramps and Denies radiating pain into limb Skin/Breast Denies skin ulcer and Denies wounds Neuro Reports Normal hearing present and Denies abnormal gait Psych Reports no additional complaints Physical Exam Const General: cooperative, healthy appearing and comfortable Orientation/consciousness: oriented to person, oriented to place and oriented to time HEENT Head: Yes normal to inspection Neck Neck: Yes normal visual inspection Carotids: no bruits Chest Chest palpation & inspection: normal inspection of the chest Resp Effort & Inspection: normal respiratory effort and able to speak in complete sentences Auscultation: clear to auscultation bilaterally, no crackles, no rales, no rhonchi and no wheezes Cardio Rate: regular rate Rhythm: regular rhythm Heart sounds: S1 normal heart sound present and S2 normal heart sound present Bruits: no carotid bruits Peripheral pulses: Peripheral pulses 2+ throughout GI Inspection: Yes normal to inspection Skin Wounds: no wounds Hair: normal Neuro General: oriented to person, oriented to place and oriented to time Cranial nerves: Yes CN's II-XII intact bilaterally and Yes Normal hearing present Cognition (Neuro): normal cognition Motor exam (neuro): 5/5 motor strength present throughout Extrem Other: venous exam: +1 edema General: No clubbing, No cyanosis and Yes edema Psych Appearance: grossly normal Mental Status: mental status grossly normal Speech and movement: Normal speech and movement present Results Reviewed Results Reviewed: Brief summary of venous insufficiency testing is as follows: right great saphenous vein: Focally positive a right calf but vein is small in caliber right small saphenous vein: negative right accessory vein: none present left great saphenous vein: negative left small saphenous vein: negative left accessory vein: none present Please note there is no evidence of any venous aneurysms or significant tortuosity Assessment & Plan Assessment & Plan (1) Varicose veins of left lower extremity with inflammation: Code(s): I83.12 - Varicose veins of left lower extremity with inflammation Category: Medical Plan: In short patient is essentially negative for any significant venous insufficiency. At the current time we did discuss routine conservative measures including compression elevation and exercise. Will follow up with us on an as-needed basis. (2) Charcot foot due to diabetes mellitus: Code(s): E11.610 - Type 2 diabetes mellitus with diabetic neuropathic arthropathy Category: Medical Plan: He does have Charcot foot and a ulcer that has gone on to heal. We did have an extensive discussion about risk factor modification in particular diabetes control. In addition we did talk about weekly surveillance checks of his lower extremities. He will follow up with us on an as-needed basis. Thank you for allowing us to assist in his care Coding Level of Care Code Est Pt Level 4 (22682) Diagnoses Varicose veins of left lower extremity with inflammation I83.12 Charcot foot due to diabetes mellitus E11.610
== END 2023-11-12 09:23 | disposition home or self-care (01) ==
PROVIDERS: PCP Nurse Practitioner Family; Visit Provider Surgery Vascular Surgery
DX: I83.12 Varicose veins of left lower extremity with inflammation (principal); E11.610 Type 2 diabetes mellitus with diabetic neuropathic arthropathy
CPT/HCPCS: 99214

== ENCOUNTER → 2023-11-12 09:00 | Outpatient (BNVA) | payer OTHER, SELFPAY | PROVIDERS: PCP Nurse Practitioner Family; Visit Provider Surgery Vascular Surgery ==

== ENCOUNTER 2023-12-03 08:11 | Outpatient (REF) | payer OTHER, SELFPAY ==
[2023-12-03 09:32] LABS: Anion Gap 13 (12-20); Blood Urea Nitrogen 43 mg/dL (9-16); Carbon Dioxide 22 mmol/L (22-29); Chloride 108 mmol/L (96-108); Estimated Glomerular Filt Rate 34; Potassium 5.9 mmol/L (3.3-5.1); Sodium 137 mmol/L (135-145)
== END 2023-12-03 08:12 | disposition home or self-care (01) ==
LOC: HO.LAB 08:11
PROVIDERS: PCP Nurse Practitioner Family; Visit Provider Nurse Practitioner Family
DX: E87.5 Hyperkalemia (principal); E11.22 Type 2 diabetes mellitus with diabetic chronic kidney disease; E11.21 Type 2 diabetes mellitus with diabetic nephropathy; N18.30 Chronic kidney disease, stage 3 unspecified; I12.9 Hypertensive chronic kidney disease with stage 1 through stage 4 chronic kidney disease, or unspecified chronic kidney disease
CPT/HCPCS: 36415; 80051; 82565; 84520

== ENCOUNTER 2023-12-03 08:42 | Outpatient (AMB) | payer OTHER, SELFPAY ==
[2023-12-03 09:13] VITALS: BP 148/78; PULSE 58; O2SAT 99; BMI 37.1
--- NOTE | 2023-12-03 09:13 | MHC.OFFVIS ---
Vital Signs 12/03/23 09:13 Height 5 ft 8 in Weight 244 lb BMI 37.1 BP 148/78 H Blood Pressure Location Rt brachial Position Sitting Pulse 58 Pulse Source Pulse Oximeter Pulse Oximetry (%) 99 Oxygen Delivery Method Room Air Intake Visit Reasons: Follow up Snoring Intake Note: Patient presents for follow up snoring. patient has no concerns today Allergies No Known Allergies Allergy (Verified 12/03/23 09:15) HPI Comments Details: 53-yr-old male presents for follow-up visit of sleep apnea. Pt denies any significant interval medical history changes. Pt's HST showed severe sleep apnea w/ AHI 43.5/hr and O2 humberto 57%. Pt has since started APAP. State she feels better with use but feels that his full face mask might not be big enough as the mask is prone to leaking while he is sleeping. He does work nights, so his sleep and APAP use is a bit fragmented. Compliance Report Usage 11/03/2023 - 12/02/2023 Usage days 27/30 days (90%) Usage days >= 4 hours 17 days (57%) Usage days < 4 hours 10 days (33%) Average usage (days used) 5 hours 5 minutes AirSense 10 AutoSet Serial number [id number] Mode AutoSet Min Pressure 6 cmH2O Max Pressure 20 cmH2O EPR Fulltime EPR level 2 Response Standard Therapy Pressure Leaks - L/min Median: 4.6 APAP presusre maximum: 18.7 Residual events per hour: AHI: 1.2/hr [facility] Medical History Chronic heart failure with preserved ejection fraction (HFpEF) Acute heart failure with preserved ejection fraction (HFpEF) Elevated cholesterol Iron deficiency anemia Chronic renal insufficiency Diabetic nephropathy Necrotizing subcutaneous infection Hypertension Type 2 diabetes Surgical History History of pyloromyotomy Status post incision and drainage [place] teeth removed Family History Mother Diabetes Maternal Uncle Diabetes Sister Multiple sclerosis Social History Household Members: Spouse Both parents involved: No Caregiver staying overnight: No Housing: House Are you a primary careers counsellor to a significant other at home: No Do you presently have visiting nurse or other home services: No 75 years or older and lives alone: No Alcohol intake: current Alcohol intake frequency: a few times a week Alcohol type: beer Patient Tobacco Use Status: Former Tobacco user Tobacco use type: Cigarette Years Smoked: 4 e-Cigarette/Vaping Use: Never Used Second Hand Smoke Exposure: Yes Substance Use Type: Marijuana Advance Directives Date on File: 05/07/23 service: No Current occupational status: employed Current occupation: [employer] Cognitive needs: No Hearing needs: No Vision needs: No Review of Systems Const All systems reviewed & are unremarkable except as noted in HPI and below Physical Exam Vital Signs: Last Vital Signs Pulse 58 12/03/23 09:13 BP 148/78 H 12/03/23 09:13 Pulse Ox 99 12/03/23 09:13 Oxygen Delivery Method Room Air 12/03/23 09:13 BMI result Body Mass Index 37.1 Const General: no acute distress Orientation/consciousness: patient oriented x3 HEENT Other: Mallampati stage Resp Effort & Inspection: normal respiratory effort and able to speak in complete sentences Auscultation: clear to auscultation bilaterally Cardio Rate: regular rate Rhythm: regular rhythm Neuro General: patient oriented x3 Psych Mental Status: mental status grossly normal Speech and movement: Clear speech present Attitude: cooperative Results Reviewed Results Reviewed: PAP compliance report- see HPI Assessment & Plan Assessment & Plan (1) Severe obstructive sleep apnea: Code(s): G47.33 - Obstructive sleep apnea (adult) (pediatric) Category: Medical (2) Nocturnal hypoxemia: Code(s): G47.34 - Idiopathic sleep related nonobstructive alveolar hypoventilation Category: Medical Plan Continue APAP w/ goal of using nightly > 4 hrs, as pt is already experiencing good clinical benefit from use. However, will make minor adjustments to optimize tx tolerance. Continue APAP 6-20 cmH2O and change EPR from 2 to 3 (changed today via [employer]). Request mask fitting and supplies- order written. Nocturnal pulse oximetry reading x's 1 night on room air while on APAP [id number] to ensure that APAP tx is effectively optimizing nocturnal oxygen levels. Clean CPAP machine and supplies routinely. Change CPAP supplies routinely. Pt to contact us or respiratory company with any questions or concerns. Orders: Orders Overnight Pulse Oximetry Today G47.33 - Obstructive sleep apnea (adult) (pediatric), G47.34 - Idiopathic sleep related nonobstructive alveolar hypoventilation Coding Level of Care Code Est Pt Level 4 (54462) Diagnoses Severe obstructive sleep apnea G47.33 Nocturnal hypoxemia G47.34
== END 2023-12-03 10:18 | disposition home or self-care (01) ==
PROVIDERS: PCP Nurse Practitioner Family; Visit Provider Nurse Practitioner Family
DX: G47.33 Obstructive sleep apnea (adult) (pediatric) (principal); G47.34 Idiopathic sleep related nonobstructive alveolar hypoventilation
CPT/HCPCS: 99214

== ENCOUNTER 2023-12-07 07:44 | Outpatient (REF) | payer OTHER, SELFPAY ==
[2023-12-07 09:02] LABS: Potassium 4.8 mmol/L (3.3-5.1)
== END 2023-12-07 07:45 | disposition home or self-care (01) ==
LOC: HO.LAB 07:44
PROVIDERS: PCP Nurse Practitioner Family; Visit Provider Nurse Practitioner Family
DX: E87.5 Hyperkalemia (principal)
CPT/HCPCS: 36415; 84132

== ENCOUNTER 2023-12-07 08:42 | Outpatient (AMB) | payer OTHER, SELFPAY ==
--- NOTE | 2023-12-07 08:30 | MHC.PC.OV ---
Vital Signs 12/07/23 09:01 12/07/23 09:05 Height 5 ft 8 in Weight 241 lb 2 oz BMI 36.7 BP 148/68 H 150/72 H Blood Pressure Location Lt brachial Rt brachial Position Sitting Sitting Respiration 16 Pulse 64 Pulse Source Pulse Oximeter Temp 97.7 F Temp Source Oral Pulse Oximetry (%) 99 Oxygen Delivery Method Room Air Intake Visit Reasons: 3 mos HTN, DM Intake Note: patient here to follow up on HTN, DM. Stock Hanger Required: No Allergies No Known Allergies Allergy (Verified 12/07/23 08:56) Tobacco use date assessed: 12/07/23 Dental Screening Dental Screen Date: 12/07/23 Did you have a dental visit in the last 12 months?: No Did you have a dental problem in the last 6 months where you did not have access to dental care?: No Was dental information given to patient?: Patient has dentist HPI HPI Comments History of Present Illness Details 53-year-old male presents for hypertension and diabetes follow-up He admits to taking his medications as prescribed without adverse reactions. He notes that his took his medications before coming to this appointment He offers no complaints and denies acute symptoms at this time He is followed by [facility] [place] Cardiology, Nephrology, Neurology, Hematology, and vascular surgery [facility] Medical History Chronic heart failure with preserved ejection fraction (HFpEF) Acute heart failure with preserved ejection fraction (HFpEF) Elevated cholesterol Iron deficiency anemia Chronic renal insufficiency Diabetic nephropathy Necrotizing subcutaneous infection Hypertension Type 2 diabetes Surgical History History of pyloromyotomy Status post incision and drainage [place] teeth removed Family History Mother Diabetes Maternal Uncle Diabetes Sister Multiple sclerosis Social History Household Members: Spouse Housing: House Are you a primary hospice care sales consultant to a significant other at home: No Do you presently have visiting nurse or other home services: No Alcohol intake: current Alcohol intake frequency: a few times a week Alcohol type: beer Patient Tobacco Use Status: Former Tobacco user Tobacco use type: Cigarette Years Smoked: 4 e-Cigarette/Vaping Use: Never Used Second Hand Smoke Exposure: Yes Substance Use Type: Marijuana Advance Directives Date on File: 05/07/23 service: No Current occupational status: employed Current occupation: [employer] Cognitive needs: No Hearing needs: No Vision needs: No Questionnaire PHQ-9 Over the last 2 weeks, how often have you been bothered by any of the following problems? 1. Little interest or pleasure in doing things: not at all 2. Feeling down, depressed, or hopeless: not at all 3. Trouble falling or staying asleep, or sleeping too much: not at all 4. Feeling tired or having little energy: several days 5. Poor appetite or overeating: not at all 6. Feeling bad about yourself - or that you are a failure or have let yourself or your family down: not at all 7. Trouble concentrating on things, such as reading the newspaper or watching television: not at all 8. Moving or speaking so slowly that other people could have noticed. Or the opposite - being so fidgety or restless that you have been moving around a lot more than usual: not at all 9. Thoughts that you would be better off or of hurting yourself in some way: not at all Total score: 1 Depression Screening Done: Yes 51893 - PHQ-9 Billing: Yes Source: Developed by Drs. Higinio Rodriguez, Olivia Rayo, Edilberto Freeman and colleagues, with an educational smitha from [employer]. Thrive Questionnaire Date Thrive assessed: 09/01/23 AUDIT C Alcohol Use Questionnaire (AUDIT-C) 1. How often do you have a drink containing alcohol?: 2-4 times a month 2. How many drinks containing alcohol do you have on a typical day when you are drinking?: 5 or 6 3. How often do you have six or more drinks on one occasion?: Monthly (on weekends) Total Score: 6 Score Reviewed/Action Taken: Yes UTE-7 AMB Questionnaire UTE-7 Date UTE - 7 assessed: 09/01/23 Source: Developed by Drs. Higinio Rodriguez, Edilberto Ivey and colleagues, with an educational smitha from [employer]. Review of Systems Const Details: Const Denies chills, Denies fatigue, Denies fever(s), Denies headache(s) and Denies weakness ENT Denies dizziness and Denies headache(s) Card Denies chest pain, Denies lightheadedness, Denies dyspnea and Denies other (Palpitations) Resp Denies cough, Denies dyspnea, Denies wheezing and Denies other ( shortness of breath) GI Denies abdominal pain, Denies melena, Denies hematochezia, Denies change in bowel habits, Denies dyspepsia and Denies nausea Denies hematuria and Denies dysuria Musc Denies abnormal gait, Denies myalgias, Denies arthralgias, Denies numbness and Denies tingling Skin/Breast Denies rash, Denies unusual bruising and Denies wounds Neuro Denies abnormal gait, Denies dizziness, Denies headache(s), Denies memory loss, Denies numbness, Denies Sensory deficit (Neuro), Denies tingling and Denies weakness Psych Denies anxiety, Denies depression, Denies memory loss Endo Denies cold intolerance, Denies fatigue, Denies heat intolerance, Denies polydipsia and Denies polyuria Aller/Immun Denies wheezing Physical exam (Primary Care) Tobacco/Smoking Status: Tobacco use Status Tobacco use date assessed 08/03/23 12/07/23 08:34 Patient Tobacco Use Status Former Tobacco user 12/07/23 08:34 Tobacco use type Cigarette 12/07/23 08:34 e-Cigarette/Vaping Use Never Used 12/07/23 08:34 Thrive Assessment: Date of Thrive Assessment Date Thrive assessed 09/01/23 12/07/23 08:34 Const Other: General: no acute distress and well developed Nutritional Appearance: well nourished Orientation/consciousness: patient oriented x3 HENMT Head: Yes normocephalic and Yes atraumatic Eyes General: appearance normal, both eyes and all related structures Pupils: Equal, round and reactive pupils present EOM: EOMs intact bilaterally Resp Effort & Inspection: normal respiratory effort Auscultation: clear to auscultation bilaterally Cardio Rate: regular rate Rhythm: regular rhythm Heart sounds: S1 normal heart sound present, S2 normal heart sound present, no gallops, no murmurs and no rubs GI Palpation (GI): No Abdominal aortic bruit present, Soft to palpation, nontender, No hepatosplenomegaly present and No Rebound tenderness present Auscultation: normal bowel sounds General: Yes no CVA tenderness Back/Spine/Pelvis Back: no CVA tenderness Cervical Spine: cervical ROM normal and No Cervical spine tenderness Thoracic/Lumbar Spine: thoraco-lumbar ROM normal, No pain with thoraco-lumbar ROM, No thoracic spinal tenderness and No lumbar spinal tenderness Extrem General: Yes normal to inspection, No edema and No calf tenderness Skin General: warm and dry. Normal skin color. Normal skin turgor Neuro General: patient oriented x3, gait normal and no focal neuro deficit Cranial nerves: Yes Equal, round and reactive pupils present Cognition (Neuro): normal cognition Gait exam (Neuro): Normal gait present Sensory Exam: No Sensory deficit (Neuro) Psych Appearance: grossly normal Affect: normal affect Attitude: cooperative Thought process: Normal thought process present Results AMB Hemoglobin A1c AMB Hemoglobin A1c 6.1 % Last Edit by Latasha Blanco on 12/07/23 09:23 Assessment and Plan Assessment & Plan (1) Hypertension: Code(s): I10 - Essential (primary) hypertension Qualifiers: Hypertension type: primary hypertension Qualified Code(s): I10 - Essential (primary) hypertension Plan: Resting blood pressure is 150/72, above goal of less than 140/90; heart rate is 64 Will start clonidine 0.1 mg twice daily. Advised to take as prescribed. Instructed on the risks, benefits, and potential adverse reactions of the medication Continue to take carvedilol, furosemide, and valsartan as prescribed Low-sodium diet encouraged Advised to check his blood pressure daily in the morning and evening, record readings, and bring to his next appointment Immediately report adverse reactions such as dizziness or lightheadedness Follow-up for nurse visit in 1 week for blood pressure check and in 2 weeks with his PCP Return sooner with symptoms or concerns Verbalized understanding and agreed with the treatment plan (2) Type 2 diabetes: Code(s): E11.9 - Type 2 diabetes mellitus without complications Qualifiers: Diabetes mellitus care home insulin use: with terminal supervisor use Diabetes mellitus complication status: without complication Qualified Code(s): E11.9 - Type 2 diabetes mellitus without complications; Z79.4 - parts counterman (current) use of insulin Plan: A1c today is 6.1%, within goal of less than 7.0%. Previous A1c was 6.2% Continue current treatment regimen ADA diet and routine exercise encouraged Will recheck A1c in 3 months Verbalized understanding and agreed with the treatment plan (3) CKD stage 3 due to type 2 diabetes mellitus: Code(s): E11.22 - Type 2 diabetes mellitus with diabetic chronic kidney disease; N18.30 - Chronic kidney disease, stage 3 unspecified Plan: Followed by [facility] [place] Recent BUN/creatinine levels are elevated, 43 and 2.09 respectively; potassium is normal, 4.8 Continue current treatment regimen Follow-up with Nephrology as planned Return with symptoms or concerns Verbalized understanding and agreed with the treatment plan Orders: Orders AMB Hemoglobin A1c Today Z13.9 - Encounter for screening, unspecified Medications: New clonidine HCl 0.1 mg PO BID 30 days 60 tabs 0RF Coding Level of Care Code Est Pt Level 4 (69579) Complex EM visit Add On G2211 Diagnoses Primary hypertension I10 Hypertension type: primary hypertension Type 2 diabetes mellitus without complication, with long-term current use of insulin E11.9; Z79.4 Diabetes mellitus terminal supervisor insulin use: with terminal supervisor use Diabetes mellitus complication status: without complication CKD stage 3 due to type 2 diabetes mellitus E11.22; N18.30
[2023-12-07 09:01] VITALS: BP 148/68; PULSE 64; RESP 16; TEMP 36.5; O2SAT 99; BMI 36.7
[2023-12-07 09:05] VITALS: BP 150/72
== END 2023-12-07 09:36 | disposition home or self-care (01) ==
PROVIDERS: PCP Nurse Practitioner Family; Visit Provider Nurse Practitioner Family
DX: I12.9 Hypertensive chronic kidney disease with stage 1 through stage 4 chronic kidney disease, or unspecified chronic kidney disease (principal); Z79.4 Long term (current) use of insulin; E11.22 Type 2 diabetes mellitus with diabetic chronic kidney disease; N18.30 Chronic kidney disease, stage 3 unspecified
CPT/HCPCS: 83036; 99214

== ENCOUNTER 2023-12-11 11:57 | Outpatient (AMB) | payer OTHER, SELFPAY ==
[2023-12-11 12:37] VITALS: BP 140/70; PULSE 50; O2SAT 97; BMI 36.4
--- NOTE | 2023-12-11 12:37 | HO.NEPHOV_ITS ---
Vital Signs 12/11/23 12:37 Height 5 ft 8 in Weight 239 lb 4 oz BMI 36.4 BP 140/70 H Blood Pressure Location Lt brachial Position Sitting Pulse 50 Pulse Source Pulse Oximeter Pulse Oximetry (%) 97 Oxygen Delivery Method Room Air Intake Visit Reasons: EZRA / Conf Migratory Farm Hand Required: No Accompanied by: Self / Same As Patient Allergies No Known Allergies Allergy (Verified 12/11/23 12:39) HPI Comments Details: I had the privilege of seeing River in follow up of his chronic kidney disease. He is diabetic and hypertensive with proteinuria. He recently had diastolic heart failure. His serum potassium has been recently high normal. He had been on angiotensin receptor leslie. He had been feeling lightheadedness with hyperkalemia and metabolic acidosis. His spironolactone was discontinued and his valsartan was reduced to once a day. He was also started on sodium bicarbonate 650 mg daily for 2 weeks along with Kionex 30 g daily for 3 days at that time. His BMI has been high. He has been having an open wound on the toe which had been healing. He thinks he may have osteomyelitis and is going to see wound care. He denies any active chest pain, shortness of breath, paroxysmal nocturnal dyspnea, orthopnea, joint swellings, epistaxis, sinusitis, skin rashes , history of renal artery stenosis, history of carotid stenosis, large, vomiting, diarrhea, hematuria. He has been taking Jardiance. [facility] Medical History Chronic heart failure with preserved ejection fraction (HFpEF) Acute heart failure with preserved ejection fraction (HFpEF) Elevated cholesterol Iron deficiency anemia Chronic renal insufficiency Diabetic nephropathy Necrotizing subcutaneous infection Hypertension Type 2 diabetes Surgical History History of pyloromyotomy Status post incision and drainage [place] teeth removed Family History Mother Diabetes Maternal Uncle Diabetes Sister Multiple sclerosis Social History Household Members: Spouse Both parents involved: No Caregiver staying overnight: No Housing: House Are you a primary youth care professional to a significant other at home: No Do you presently have visiting nurse or other home services: No 75 years or older and lives alone: No Alcohol intake: current Alcohol intake frequency: a few times a week Alcohol type: beer Patient Tobacco Use Status: Former Tobacco user Tobacco use type: Cigarette Years Smoked: 4 e-Cigarette/Vaping Use: Never Used Second Hand Smoke Exposure: Yes Substance Use Type: Marijuana Advance Directives Date on File: 05/07/23 service: No Current occupational status: employed Current occupation: [employer] Cognitive needs: No Hearing needs: No Vision needs: No Review of Systems Const All systems reviewed & are unremarkable except as noted in HPI and below Physical Exam Vital Signs: Last Vital Signs Pulse 50 12/11/23 12:37 BP 140/70 H 12/11/23 12:37 Pulse Ox 97 12/11/23 12:37 Oxygen Delivery Method Room Air 12/11/23 12:37 BMI result Body Mass Index 36.4 Const General: comfortable and no acute distress Orientation/consciousness: patient oriented x3 HEENT Head: Yes normocephalic Mouth: Normal oral and palatal mucosa present Eyes EOM: EOMs intact bilaterally Neck Neck: Yes supple Resp Auscultation: clear to auscultation bilaterally Cardio Jugular venous distension: no JVD Rate: regular rate GI Palpation (GI): Soft to palpation Auscultation: normal bowel sounds General: Yes no CVA tenderness Back/Spine/Pelvis Back: no CVA tenderness Skin General skin exam: no rashes or lesions noted Neuro General: patient oriented x3 and moves all extremities Extrem General: Yes no pedal edema Results Reviewed Nephrology Results: Hgb 10.8 g/dl (14.0-18.0) L 10/22/23 WBC 9.7 X10*3/uL (4.8-10.8) 10/22/23 Plt Count 184 X10*3/uL (160-400) 10/22/23 Sodium 137 mmol/L (135-145) 12/03/23 Potassium 4.8 mmol/L (3.3-5.1) 12/07/23 Chloride 108 mmol/L (96-108) 12/03/23 Carbon Dioxide 22 mmol/L (22-29) 12/03/23 BUN 43 mg/dL (9-16) H 12/03/23 Creatinine 2.09 mg/dL (0.5-1.4) H 12/03/23 Calcium 9.3 mg/dL (8.4-10.2) 10/22/23 Assessment & Plan Assessment & Plan (1) Diabetic nephropathy: Code(s): E11.21 - Type 2 diabetes mellitus with diabetic nephropathy Category: Medical Qualifiers: Diabetes mellitus type: type 2 Qualified Code(s): E11.21 - Type 2 diabetes mellitus with diabetic nephropathy (2) CKD stage 3 due to type 2 diabetes mellitus: Code(s): E11.22 - Type 2 diabetes mellitus with diabetic chronic kidney disease; N18.30 - Chronic kidney disease, stage 3 unspecified Category: Medical (3) Hypertension: Code(s): I10 - Essential (primary) hypertension Category: Medical Qualifiers: Hypertension type: primary hypertension Qualified Code(s): I10 - Essential (primary) hypertension Plan River has 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 He has obesity. He has history of poorly controlled diabetes mellitus. He has proteinuria. He has underlying diabetic nephropathy. He has H/O decompensated diastolic heart failure. His urine output is good. I increased valsartan to 80 mg bid. I increased K lowering medication to twice a week. We may have to back off on ARB if his serum creatinine rises. He is on fenofibrate. His renal USS was unremarkable. He does not need a renal biopsy now. He was counseled to maintain good blood pressure and good blood sugar control. All these have been discussed in detail. Further management is pending evolving data. All questions answered. Follow-up appointment given Orders: Orders Creatinine Today E11.21 - Type 2 diabetes mellitus with diabetic nephropathy, E11.22 - Type 2 diabetes mellitus with diabetic chronic kidney disease, I10 - Essential (primary) hypertension, N18.30 - Chronic kidney disease, stage 3 unspecified Blood Urea Nitrogen Today E11.21 - Type 2 diabetes mellitus with diabetic nephropathy, E11.22 - Type 2 diabetes mellitus with diabetic chronic kidney disease, I10 - Essential (primary) hypertension, N18.30 - Chronic kidney disease, stage 3 unspecified Electrolytes Today E11.21 - Type 2 diabetes mellitus with diabetic nephropathy, E11.22 - Type 2 diabetes mellitus with diabetic chronic kidney disease, I10 - Essential (primary) hypertension, N18.30 - Chronic kidney disease, stage 3 unsp ecified Coding Level of Care Code Est Pt Level 4 (75828) Diagnoses Diabetic nephropathy associated with type 2 diabetes mellitus E11.21 Diabetes mellitus type: type 2 CKD stage 3 due to type 2 diabetes mellitus E11.22; N18.30 Primary hypertension I10 Hypertension type: primary hypertension
== END 2023-12-11 12:53 | disposition home or self-care (01) ==
PROVIDERS: PCP Nurse Practitioner Family; Visit Provider Internal Medicine Nephrology
DX: E11.21 Type 2 diabetes mellitus with diabetic nephropathy (principal); E11.22 Type 2 diabetes mellitus with diabetic chronic kidney disease; N18.30 Chronic kidney disease, stage 3 unspecified; I10 Essential (primary) hypertension
CPT/HCPCS: 99214

== ENCOUNTER → 2023-12-11 11:57 | Outpatient (BNVA) | payer OTHER, SELFPAY | PROVIDERS: PCP Nurse Practitioner Family; Visit Provider Internal Medicine Nephrology ==

== ENCOUNTER 2023-12-30 10:41 | Outpatient (AMB) | payer OTHER, SELFPAY ==
--- NOTE | 2023-12-30 10:54 | A.OFFPC_ITS ---
Vital Signs 12/30/23 11:00 12/30/23 11:19 Height 5 ft 8 in Weight 242 lb BMI 36.8 BP 146/60 H 128/60 Blood Pressure Location Lt brachial Rt brachial Position Sitting Sitting Respiration 16 Pulse 63 Pulse Source Pulse Oximeter Temp 97.5 F Temp Source Oral Pulse Oximetry (%) 99 Oxygen Delivery Method Room Air Intake Visit Reasons: 2 wk htn Intake Note: patient here to follow up on HTN. Junior Estimator Required: No Allergies No Known Allergies Allergy (Verified 12/30/23 11:15) Medication List - Last Reconciled 12/30/23 by Quique Tatum CNP atorvastatin 40 mg PO BEDTIME 30 days blood sugar diagnostic (FreeStyle Lite Strips) Test four times a day or as directed. blood-glucose meter (FreeStyle Lite Meter kit) As Directed carvedilol 12.5 mg PO BID cholecalciferol (vitamin D3) 50 mcg PO DAILY clonidine HCl 0.1 mg PO BID 30 days comp.stocking,knee,long,medium As directed empagliflozin 10 mg PO DAILY fenofibrate 54 mg PO DAILY ferrous sulfate 325 mg PO TID 30 days fluticasone propionate 50 mcg/actuation (Flonase Allergy Relief) 1 spray intranasal BID PRN furosemide 40 mg PO QAM insulin glargine (Basaglar KwikPen U-100 Insulin) 15 units (0.15 mL) subcut QPM lancets (FreeStyle Lancets) TEST FOUR TIMES A DAY OR DIRECTED. metformin 1,000 mg PO BID miscellaneous medical supply 1 large blood pressure cuff multivitamin 1 tab PO DAILY omega-3 fatty acids 1,000 mg PO TID pen needle, diabetic (BD Toshia 2nd Gen Pen Needle) USE FOUR TIMES A DAY OR DIRECTED. sodium polystyrene sulfonate 30 grams orally once a week; valsartan 80 mg PO DAILY zinc acetate 50 mg (2 x 25 mg (zinc)) PO BID 3 months Tobacco use date assessed: 12/30/23 Dental Screening Dental Screen Date: 12/07/23 HPI HPI Comments History of Present Illness Details 53-year-old male presents for hypertensi on follow-up He admits to taking his medications as prescribed without adverse reactions He notes that he has been maintaining a healthy diet, including limiting salt He offers no complaints and denies acute symptoms at this time [facility] Medical History Chronic heart failure with preserved ejection fraction (HFpEF) Acute heart failure with preserved ejection fraction (HFpEF) Elevated cholesterol Iron deficiency anemia Chronic renal insufficiency Diabetic nephropathy Necrotizing subcutaneous infection Hypertension Type 2 diabetes Surgical History History of pyloromyotomy Status post incision and drainage [place] teeth removed Family History Mother Diabetes Maternal Uncle Diabetes Sister Multiple sclerosis Social History Household Members: Spouse Housing: House Are you a primary pharmacy customer care specialist to a significant other at home: No Do you presently have visiting nurse or other home services: No Alcohol intake: current Alcohol intake frequency: a few times a week Alcohol type: beer Patient Tobacco Use Status: Former Tobacco user Tobacco use type: Cigarette Years Smoked: 4 e-Cigarette/Vaping Use: Never Used Second Hand Smoke Exposure: Yes Substance Use Type: Marijuana Advance Directives Date on File: 05/07/23 service: No Current occupational status: employed Current occupation: [employer] Cognitive needs: No Hearing needs: No Vision needs: No Questionnaire Thrive Questionnaire Date Thrive assessed: 09/01/23 UTE-7 AMB Questionnaire UTE-7 Date UTE - 7 assessed: 09/01/23 Source: Developed by Drs. Higinio Rodriguez, Olivia Rayo, Edilberto Freeman and colleagues, with an educational smitha from [employer]. Review of Systems Const Details: Const Denies chills, Denies fatigue, Denies fever(s), Denies headache(s) and Denies weakness ENT Denies dizziness and Denies headache(s) Card Denies chest pain, Denies lightheadedness, Denies dyspnea and Denies other (Palpitations) Resp Denies cough, Denies dyspnea, Denies wheezing and Denies other ( shortness of breath) GI Denies abdominal pain, Denies melena, Denies hematochezia, Denies change in bowel habits, Denies dyspepsia and Denies nausea Denies hematuria and Denies dysuria Musc Denies abnormal gait, Denies myalgias, Denies arthralgias, Denies numbness and Denies tingling Skin/Breast Denies rash, Denies unusual bruising and Denies wounds Neuro Denies abnormal gait, Denies dizziness, Denies headache(s), Denies memory loss, Denies numbness, Denies Sensory deficit (Neuro), Denies tingling and Denies weakness Psych Denies anxiety, Denies depression, Denies memory loss Endo Denies cold intolerance, Denies fatigue, Denies heat intolerance, Denies polydipsia and Denies polyuria Aller/Immun Denies wheezing Physical exam (Primary Care) Vital Signs: Last Vital Signs Temp 97.5 F 12/30/23 11:00 Pulse 63 12/30/23 11:00 Resp 16 12/30/23 11:00 BP 146/60 H 12/30/23 11:00 Pulse Ox 99 12/30/23 11:00 Oxygen Delivery Method Room Air 12/30/23 11:00 BMI result Body Mass Index 36.8 Tobacco/Smoking Status: Tobacco use Status Tobacco use date assessed 12/30/23 12/30/23 11:06 Patient Tobacco Use Status Former Tobacco user 12/30/23 10:56 Tobacco use type Cigarette 12/30/23 10:56 e-Cigarette/Vaping Use Never Used 12/30/23 10:56 Thrive Assessment: Date of Thrive Assessment Date Thrive assessed 09/01/23 12/30/23 10:56 Const Other: General: no acute distress and well developed Nutritional Appearance: well nourished Orientation/consciousness: patient oriented x3 HENMT Head: Yes normocephalic and Yes atraumatic Eyes General: appearance normal, both eyes and all related structures Pupils: Equal, round and reactive pupils present EOM: EOMs intact bilaterally Resp Effort & Inspection: normal respiratory effort Auscultation: clear to auscultation bilaterally Cardio Rate: regular rate Rhythm: regular rhythm Heart sounds: S1 normal heart sound present, S2 normal heart sound present, no gallops, no murmurs and no rubs GI Palpation (GI): No Abdominal aortic bruit present, Soft to palpation, nontender, No hepatosplenomegaly present and No Rebound tenderness present Auscultation: normal bowel sounds General: Yes no CVA tenderness Back/Spine/Pelvis Back: no CVA tenderness Cervical Spine: cervical ROM normal and No Cervical spine tenderness Thoracic/Lumbar Spine: thoraco-lumbar ROM normal, No pain with thoraco-lumbar ROM, No thoracic spinal tenderness and No lumbar spinal tenderness Extrem General: Yes normal to inspection, No edema and No calf tenderness Skin General: warm and dry. Normal skin color. Normal skin turgor Neuro General: patient oriented x3, gait normal and no focal neuro deficit Cranial nerves: Yes Equal, round and reactive pupils present Cognition (Neuro): normal cognition Gait exam (Neuro): Normal gait present Sensory Exam: No Sensory deficit (Neuro) Psych Appearance: grossly normal Affect: normal affect Attitude: cooperative Thought process: Normal thought process present Assessment and Plan Assessment & Plan (1) Hypertension: Code(s): I10 - Essential (primary) hypertension Qualifiers: Hypertension type: primary hypertension Qualified Code(s): I10 - Essential (primary) hypertension Plan: Resting blood pressure is 128/60, within goal of less than 130/80 Continue current treatment regimen Low-sodium diet encouraged Follow-up in 10 weeks for hypertension and diabetes or sooner with symptoms or concerns Verbalized understanding and agreed with the treatment plan Coding Level of Care Code Est Pt Level 3 (55590) Diagnoses Primary hypertension I10 Hypertension type: primary hypertension
[2023-12-30 11:00] VITALS: BP 146/60; PULSE 63; RESP 16; TEMP 36.4; O2SAT 99; BMI 36.8
[2023-12-30 11:19] VITALS: BP 128/60
== END 2023-12-30 11:24 | disposition home or self-care (01) ==
PROVIDERS: PCP Nurse Practitioner Family; Visit Provider Nurse Practitioner Family
DX: I10 Essential (primary) hypertension (principal)
CPT/HCPCS: 99213

== ENCOUNTER 2024-01-25 06:47 | Day surgery (SDC) | payer OTHER, SELFPAY ==
[2024-01-21 16:37] VITALS: BMI 36.5
--- NOTE | 2024-01-22 09:35 | HO.ANESPROP2 ---
Documented by User: Leah Lopez NP 01/22/24 09:42 HPI - Anesthesia Eval Consult details Narrative: 53yo M for Colonoscopy Follows [facility] Cardiology. Stable at 09/2023 cardiac office visit [facility] Active Problems Active Problems: All Active Problems Nocturnal hypoxemia (Acute) Severe obstructive sleep apnea (Acute) Charcot foot due to diabetes mellitus (Acute) Varicose veins of left lower extremity with inflammation (Acute) Vaccine counseling (Acute) Normal physical examination, routine (Acute) Preop examination (Acute) Shift work sleep disorder (Acute) Metabolic acidosis (Acute) Diabetic nephropathy (Acute) CKD stage 3 due to type 2 diabetes mellitus (Acute) Hospital discharge follow-up (Acute) Hypersomnia (Acute) EZRA (acute kidney injury) (Acute) Hyperalbuminemia (Acute) Kidney disease (Acute) Uncontrolled hypertension (Acute) CHF (congestive heart failure) (Acute) Morbid obesity with BMI of 40.0-44.9, adult (Acute) Wound, open, toe (Acute) Iron deficiency anemia (Acute) Abnormal chest x-ray (Acute) Snoring (Acute) Edema of both feet (Acute) SOB (shortness of breath) (Acute) Obesity (BMI 30-39.9) (Acute) Bilateral swelling of feet and ankles (Acute) Anemia (Acute) Elevated cholesterol with high triglycerides (Acute) Colon cancer screening (Acute) BMI 38.0-38.9,adult (Acute) Strain of right hip and thigh (Acute) Mild anemia (Acute) Postoperative visit (Acute) High potassium (Acute) Normal physical exam (Acute) Sary-rectal abscess (Acute) Poorly controlled type 2 diabetes mellitus (Acute) Diabetes (Acute) Chronic heart failure with preserved ejection fraction (HFpEF) (Acute) Type 2 diabetes (Acute) Hypertension (Acute) Past Medical History Medical History CKD (chronic kidney disease) stage 3, GFR 30-59 ml/min Sleep apnea Chronic heart failure with preserved ejection fraction (HFpEF) Elevated cholesterol Iron deficiency anemia Chronic renal insufficiency Diabetic nephropathy Acute heart failure with preserved ejection fraction (HFpEF) Necrotizing subcutaneous infection Hypertension Type 2 diabetes Family History Family History Mother Diabetes Maternal Uncle Diabetes Sister Multiple sclerosis Family history of problems with anesthesia: No Surgical History Surgical History History of pyloromyotomy Status post incision and drainage [place] teeth removed History of Problems with Anesthesia: No Social History Social History Household Members: Spouse Housing: House Are you a primary infant caregiver to a significant other at home: No Do you presently have visiting nurse or other home services: No Alcohol intake: current Alcohol intake frequency: a few times a week Alcohol type: beer Patient Tobacco Use Status: Former Tobacco user Tobacco use type: Cigarette Years Smoked: 4 e-Cigarette/Vaping Use: Never Used Second Hand Smoke Exposure: Yes Use of substances other than those prescribed or required for medical reasons: Yes Substance Use Type: Marijuana Have you been hit, kicked, punched, or otherwise hurt by someone within the past year? If so, by whom?: No Are you DNR?: No Advance Directives: No Advance Directives Information Provided: Yes Advance Directives Date on File: 05/07/23 Recently lost weight without trying: No Nutrition Risks: No Nutritional Risk service: No Current occupational status: employed Current occupation: [employer] Cognitive needs: No Hearing needs: No Vision needs: No Meds Allergies Allergy/AdvReac Type Severity Reaction Status Date / Time No Known Allergies Allergy Verified 12/30/23 11:15 Home Medications ?Medication ?Instructions ?Recorded ?Confirmed ?Last Taken ?Type multivitamin 1 tab PO DAILY 03/11/22 01/21/24 05/04/23 History omega-3 fatty acids 1,000 mg PO TID 03/11/22 12/30/23 05/04/23 History fluticasone propionate 50 2 spray intranasal BID PRN 05/05/23 01/21/24 05/04/23 History mcg/actuation nasal Allergic Symptoms spray,suspension (Flonase Allergy Relief) fenofibrate 54 mg tablet 54 mg PO DAILY 10/05/23 12/30/23 Unknown History omega-3 fatty acids-fish oil 684 1 cap PO DAILY 01/21/24 01/21/24 Unknown History mg-1,200 mg capsule,delayed release Exam Height,Weight and Vital Signs: Height 5 ft 8 in Weight 108.862 kg Pertinent Lab Results Pertinent Lab Results: Laboratory Tests 10/22/23 12/03/23 12/07/23 08:16 08:17 07:51 WBC 9.7 Hgb 10.8 L Hct 32.2 L Plt Count 184 Sodium 137 Potassium 4.8 Chloride 108 Carbon Dioxide 22 BUN 43 H Creatinine 2.09 H Narrative Narrative: EKG 07/2023 Vent. Rate : 049 BPM Atrial Rate : 049 BPM P-R Int : 162 ms QRS Dur : 076 ms QT Int : 416 ms P-R-T Axes : 008 007 034 degrees QTc Int : 375 ms Sinus bradycardia with sinus arrhythmia Otherwise normal ECG When compared with ECG of 04-MAY-2023 21:53, Vent. rate has decreased BY 45 BPM NM cardiolite stress test 05/2023 Impression: 1. Myocardial perfusion imaging study shows fixed basal inferior defect with improvement during CT attenuation correction, but also showing regional akinesis on gating. Possibly diaphragmatic attenuation artifact but can't exclude old basal inferior infarct. 2. Gated LVEF is 49% during stress and 54% during rest. 3. Transient ischemic dilatation not present. EKG component of the test reported separately. ECHO 04/2023 Conclusions: - 1. Low normal LV ejection fraction of 50-55% with restrictive filling pattern 2. Mildly dilated left atrium 3. Normal cardiac valvular Doppler 4. Mildly elevated right atrial pressures 5. No gross pericardial effusion Assessment and Plan Assessment Anesthesia Assessment: Chart Reviewed Final Anesthetic Review Family History of Problems with Anesthesia: No History of Problems with Anesthesia: No Documented by User: Kelly Lozano MD 01/25/24 09:29 [facility] Past Medical History Medical History CKD (chronic kidney disease) stage 3, GFR 30-59 ml/min Sleep apnea Chronic heart failure with preserved ejection fraction (HFpEF) Elevated cholesterol Iron deficiency anemia Chronic renal insufficiency Diabetic nephropathy Acute heart failure with preserved ejection fraction (HFpEF) Necrotizing subcutaneous infection Hypertension Type 2 diabetes Family History Family History Mother Diabetes Maternal Uncle Diabetes Sister Multiple sclerosis Surgical History Surgical History History of pyloromyotomy Status post incision and drainage [place] teeth removed Social History Social History Household Members: Spouse Housing: House Are you a primary infant caregiver to a significant other at home: No Do you presently have visiting nurse or other home services: No Alcohol intake: current Alcohol intake frequency: a few times a week Alcohol type: beer Patient Tobacco Use Status: Former Tobacco user Tobacco use type: Cigarette Years Smoked: 4 e-Cigarette/Vaping Use: Never Used Second Hand Smoke Exposure: Yes Use of substances other than those prescribed or required for medical reasons: Yes Substance Use Type: Marijuana Have you been hit, kicked, punched, or otherwise hurt by someone within the past year? If so, by whom?: No Are you DNR?: No Advance Directives: No Advance Directives Information Provided: Yes Advance Directives Date on File: 05/07/23 Recently lost weight without trying: No Nutrition Risks: No Nutritional Risk service: No Current occupational status: employed Current occupation: [employer] Cognitive needs: No Hearing needs: No Vision needs: No Meds Allergies Allergy/AdvReac Type Severity Reaction Status Date / Time No Known Allergies Allergy Verified 12/30/23 11:15 Home Medications ?Medication ?Instructions ?Recorded ?Confirmed ?Last Taken ?Type multivitamin 1 tab PO DAILY 03/11/22 01/21/24 05/04/23 History omega-3 fatty acids 1,000 mg PO TID 03/11/22 12/30/23 05/04/23 History fluticasone propionate 50 2 spray intranasal BID PRN 05/05/23 01/21/24 05/04/23 History mcg/actuation nasal Allergic Symptoms spray,suspension (Flonase Allergy Relief) fenofibrate 54 mg tablet 54 mg PO DAILY 10/05/23 12/30/23 Unknown History omega-3 fatty acids-fish oil 684 1 cap PO DAILY 01/21/24 01/21/24 Unknown History mg-1,200 mg capsule,delayed release Exam Airway Mallampati Class: II TM Dist: <=3cm Neck ROM: Limited Heart: rrr Lungs: cta Assessment and Plan Assessment Anesthesia Assessment: Anesthesia Plan Discussed Final Anesthetic Review NPO: Yes ASA Class: III Final Preanesthetic Review: No Changes in Pt Med Stat, Meds/Allgs Chart Reviewed, Consent Obtained/Reviewed and Anes Risks/Benef Reviewed Patient Risk: Intermediate Procedure Risk: Low Anesthetic Plan Anesthetic Plan: MAC: Disposition: Standard PACU
[2024-01-25 08:45] VITALS: BP 185/87; PULSE 63; RESP 16; TEMP 36.3; O2SAT 99; BMI 37.9
[2024-01-25 09:01] LABS: Glucose, Whole Blood 162 mg/dL (60-115)
[2024-01-25] MEDS: Lactated Ringers 1,000 ML 100 ML IVCONT (09:02)
[2024-01-25 10:30] VITALS: BP 105/55; PULSE 67; RESP 18; TEMP 36.2; O2SAT 100
--- NOTE | 2024-01-25 10:36 | P.BOP_ITS ---
Brief Operative Note Date of Service: 01/25/24 Pre-op diagnosis: Screening Post-op diagnosis: other (Polyps) Procedure: Colonoscopy to the cecum with hot snare polypectomy x 2 Surgeon: Higinio Zhang MD Anesthesia: MAC Was an Electrical Instrumentation Technician used for this Procedure?: No Estimated blood loss (mL): 0 Pathology: other (A. Polyp at 60cm B. Polyp at 40cm) Condition: stable Disposition: PACU
[2024-01-25 10:45] VITALS: BP 136/72; PULSE 57; RESP 16; O2SAT 98
--- NOTE | 2024-01-25 10:52 | OP_ITS ---
DATE OF SERVICE: 01/25/2024 SURGEON: Higinio Zhang MD INDICATIONS: The patient presents for evaluation of colorectal cancer screening. Full consent has been obtained from him for this, including risks of bleeding and perforation. PREOPERATIVE DIAGNOSIS: Colorectal cancer screening. POSTOPERATIVE DIAGNOSIS: PROCEDURE PERFORMED: Colonoscopy to the cecum with hot snare polypectomy x2. ESTIMATED BLOOD LOSS: COMPLICATIONS: ANESTHESIA: Monitored anesthesia care. ASSISTANTS: SPECIMENS: POSTOPERATIVE DIAGNOSES: Colorectal cancer screening, colon polyps, mild diverticulosis, and small internal hemorrhoids. DESCRIPTION OF PROCEDURE: The patient was placed in the left lateral decubitus position. The digital rectal exam revealed no abnormalities. The Olympus video pediatric colonoscope was entered into the rectum and advanced easily to the cecum. Once in the cecum, I did identify normal-appearing cecal pouch with appendiceal orifice and a normal-appearing ileocecal valve. The entire cecum and ileocecal valve appeared normal. The scope was slowly withdrawn assessing all mucosal surfaces carefully. For the most part, preparation was excellent, although there were some small areas of liquid stool, which had to be irrigated and suctioned away. In the area of 60 cm was an approximately 12 mm polyp that was relatively flat. This was removed in piecemeal fashion by hot snare polypectomy with at least 1 piece recovered by suction. The polypectomy site appeared clean, without any sign of residual polyp nor bleeding. At 40 cm, was an approximately 8-10 mm polyp, which was removed by hot snare polypectomy and recovered by suction. The polypectomy site appeared clean, without any sign of residual polyp nor bleeding. I did not visualize any other polyps, colitis, nor angiodysplasia. There was a mild amount of sigmoid diverticulosis. In the rectum, scope was retroflexed visualizing internal hemorrhoids, but no other pathology. The rectal mucosa appeared normal. The scope was straightened and withdrawn from the patient. He tolerated the procedure well and was returned to the recovery area in stable condition. IMPRESSION: 1. Colon polyps. 2. Diverticulosis. 3. Internal hemorrhoids. PLAN: The results of the pathology will be checked. I would recommend a repeat colonoscopy in 3 years for further screening given today's findings with the flat polyp. He was advised not to use any aspirin, NSAIDs, nor fish oil for 1 week. MD TK Chi/DEQUAN / [id number]
== END 2024-01-25 11:21 | disposition home or self-care (01) ==
PROVIDERS: PCP Nurse Practitioner Family; Visit Provider Internal Medicine
PROC: 0DJD8ZZ Inspection of Lower Intestinal Tract, Via Natural or Artificial Opening Endoscopic (ICD-10-PCS; CPT 45378; principal; 2024-01-25 09:10)
DX: Z12.11 Encounter for screening for malignant neoplasm of colon (principal); D12.4 Benign neoplasm of descending colon; K57.30 Diverticulosis of large intestine without perforation or abscess without bleeding; K64.8 Other hemorrhoids; E11.22 Type 2 diabetes mellitus with diabetic chronic kidney disease; I13.0 Hypertensive heart and chronic kidney disease with heart failure and stage 1 through stage 4 chronic kidney disease, or unspecified chronic kidney disease; N18.30 Chronic kidney disease, stage 3 unspecified; I50.9 Heart failure, unspecified; E78.5 Hyperlipidemia, unspecified; D50.9 Iron deficiency anemia, unspecified; G47.33 Obstructive sleep apnea (adult) (pediatric); R06.02 Shortness of breath; F12.90 Cannabis use, unspecified, uncomplicated; Z79.899 Other long term (current) drug therapy; Z79.4 Long term (current) use of insulin; Z79.84 Long term (current) use of oral hypoglycemic drugs; Z79.02 Long term (current) use of antithrombotics/antiplatelets; Z87.891 Personal history of nicotine dependence
CPT/HCPCS: 45385; 82947; 88305; J2704

== ENCOUNTER 2024-02-11 08:17 | Outpatient (REF) | payer OTHER, SELFPAY ==
[2024-02-11 09:40] LABS: Sodium 137 mmol/L (135-145)
[2024-02-11 09:41] LABS: Anion Gap 10 (12-20); Blood Urea Nitrogen 41 mg/dL (9-16); Carbon Dioxide 25 mmol/L (22-29); Chloride 107 mmol/L (96-108); Estimated Glomerular Filt Rate 33
== END 2024-02-11 08:18 | disposition home or self-care (01) ==
LOC: HO.LAB 08:17
PROVIDERS: PCP Nurse Practitioner Family; Visit Provider Internal Medicine Nephrology
DX: E11.21 Type 2 diabetes mellitus with diabetic nephropathy (principal); E11.22 Type 2 diabetes mellitus with diabetic chronic kidney disease; N18.30 Chronic kidney disease, stage 3 unspecified; I10 Essential (primary) hypertension
CPT/HCPCS: 36415; 80051; 82565; 84520

== ENCOUNTER 2024-02-12 11:23 | Outpatient (AMB) | payer OTHER, SELFPAY ==
--- NOTE | 2024-02-12 11:27 | HO.NEPHOV ---
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 blood-glucose meter (FreeStyle Lite Meter kit) As Directed carvedilol 12.5 mg PO BID cholecalciferol (vitamin D3) 50 mcg PO DAILY clonidine HCl 0.1 mg PO BID 30 days comp.stocking,knee,long,medium As directed empagliflozin 10 mg PO DAILY fenofibrate 54 mg PO DAILY ferrous sulfate 325 mg PO TID 30 days fluticasone propionate 50 mcg/actuation (Flonase Allergy Relief) 2 sprays intranasal BID PRN furosemide 40 mg PO QAM insulin glargine (Basaglar KwikPen U-100 Insulin) 15 units (0.15 mL) subcut QPM lancets (FreeStyle Lancets) TEST FOUR TIMES A DAY OR DIRECTED. metformin 1,000 mg PO BID miscellaneous medical supply 1 large blood pressure cuff multivitamin 1 tab PO DAILY omega-3 fatty acids 1,000 mg PO TID omega-3 fatty acids-fish oil 684-1,200 mg 1 cap PO DAILY pen needle, diabetic (BD Toshia 2nd Gen Pen Needle) USE FOUR TIMES A DAY OR DIRECTED. sodium polystyrene sulfonate 30 grams orally once a week; valsartan 80 mg PO BID zinc acetate 50 mg (2 x 25 mg (zinc)) PO BID 3 months HPI Comments Details: I had the privilege of seeing River in follow up of his chronic kidney disease. He is diabetic and hypertensive with proteinuria. He recently had diastolic heart failure. His serum potassium has been recently high normal. He had been on angiotensin receptor leslie. He had been feeling lightheadedness with hyperkalemia and metabolic acidosis. His spironolactone was discontinued and his valsartan was reduced to once a day. He was also started on sodium bicarbonate 650 mg daily for 2 weeks along with Kionex 30 g daily for 3 days at that time. His BMI has been high. He has been having an open wound on the toe which had been healing. He thinks he may have osteomyelitis and is going to see wound care. He denies any active chest pain, shortness of breath, paroxysmal nocturnal dyspnea, orthopnea, joint swellings, epistaxis, sinusitis, skin rashes, history of renal artery stenosis, history of carotid stenosis, large, vomiting, diarrhea, hematuria. He has been taking Jardiance [facility] Medical History CKD (chronic kidney disease) stage 3, GFR 30-59 ml/min Sleep apnea Chronic heart failure with preserved ejection fraction (HFpEF) Elevated cholesterol Iron deficiency anemia Chronic renal insufficiency Diabetic nephropathy Acute heart failure with preserved ejection fraction (HFpEF) Necrotizing subcutaneous infection Hypertension Type 2 diabetes Surgical History History of pyloromyotomy Status post incision and drainage [place] teeth removed Family History Mother Diabetes Maternal Uncle Diabetes Sister Multiple sclerosis Social History Household Members: Spouse Both parents involved: No Caregiver staying overnight: No Housing: House Are you a primary chiropractic care to a significant other at home: No Do you presently have visiting nurse or other home services: No 75 years or older and lives alone: No Alcohol intake: current Alcohol intake frequency: a few times a week Alcohol type: beer Patient Tobacco Use Status: Former Tobacco user Tobacco use type: Cigarette Years Smoked: 4 e-Cigarette/Vaping Use: Never Used Second Hand Smoke Exposure: Yes Substance Use Type: Marijuana Advance Directives Date on File: 05/07/23 service: No Current occupational status: employed Current occupation: [employer] Cognitive needs: No Hearing needs: No Vision needs: No Review of Systems Const All systems reviewed & are unremarkable except as noted in HPI and below Physical Exam Vital Signs: Last Vital Signs Pulse 59 02/12/24 11:28 BP 140/90 H 02/12/24 11:28 Pulse Ox 97 02/12/24 11:28 Oxygen Delivery Method Room Air 02/12/24 11:28 BMI result Body Mass Index 36.3 Const General: comfortable and no acute distress Orientation/consciousness: patient oriented x3 HEENT Head: Yes normocephalic Mouth: Normal oral and palatal mucosa present Eyes EOM: EOMs intact bilaterally Neck Neck: Yes supple Resp Auscultation: clear to auscultation bilaterally Cardio Jugular venous distension: no JVD Rate: regular rate GI Palpation (GI): Soft to palpation Auscultation: normal bowel sounds General: Yes no CVA tenderness Back/Spine/Pelvis Back: no CVA tenderness Skin General skin exam: no rashes or lesions noted Neuro General: patient oriented x3 and moves all extremities Results Reviewed Nephrology Results: Hgb 10.8 g/dl (14.0-18.0) L 10/22/23 WBC 9.7 X10*3/uL (4.8-10.8) 10/22/23 Plt Count 184 X10*3/uL (160-400) 10/22/23 Sodium 137 mmol/L (135-145) 02/11/24 Potassium 5.0 mmol/L (3.3-5.1) 02/11/24 Chloride 107 mmol/L (96-108) 02/11/24 Carbon Dioxide 25 mmol/L (22-29) 02/11/24 BUN 41 mg/dL (9-16) H 02/11/24 Creatinine 2.15 mg/dL (0.5-1.4) H 02/11/24 Calcium 9.3 mg/dL (8.4-10.2) 10/22/23 Assessment & Plan Assessment & Plan (1) Diabetic nephropathy: Code(s): E11.21 - Type 2 diabetes mellitus with diabetic nephropathy Category: Medical Qualifiers: Diabetes mellitus type: type 2 Qualified Code(s): E11.21 - Type 2 diabetes mellitus with diabetic nephropathy (2) CKD stage 3 due to type 2 diabetes mellitus: Code(s): E11.22 - Type 2 diabetes mellitus with diabetic chronic kidney disease; N18.30 - Chronic kidney disease, stage 3 unspecified Category: Medical (3) Hypertension: Code(s): I10 - Essential (primary) hypertension Category: Medical Qualifiers: Hypertension type: primary hypertension Qualified Code(s): I10 - Essential (primary) hypertension Plan River has 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 He has obesity. He has history of poorly controlled diabetes mellitus. He has proteinuria. He has underlying diabetic nephropathy. He has H/O decompensated diastolic heart failure. His urine output is good. C/W valsartan 80 mg bid. I increased K lowering medication to twice a week. I increased his Jardiance to 25 mg daily. He is on fenofibrate. His renal USS was unremarkable. He does not need a renal biopsy now. He was counseled to maintain good blood pressure and good blood sugar control. All these have been discussed in detail. Further management is pending evolving data. All questions answered. Follow-up appointment given Orders: Orders Creatinine 3 Months E11.21 - Type 2 diabetes mellitus with diabetic nephropathy, E11.22 - Type 2 diabetes mellitus with diabetic chronic kidney disease, N18.30 - Chronic kidney disease, stage 3 unspecified Electrolytes 3 Months E11.21 - Type 2 diabetes mellitus with diabetic nephropathy, E11.22 - Type 2 diabetes mellitus with diabetic chronic kidney disease, N18.30 - Chronic kidney disease, stage 3 unspecified Blood Urea Nitrogen 3 Months E11.21 - Type 2 diabetes mellitus with diabetic nephropathy, E11.22 - Type 2 diabetes mellitus with diabetic chronic kidney disease, N18.30 - Chronic kidney disease, stage 3 unspecified Medications: Changed From empagliflozin 10 mg PO DAILY 30 tabs 3RF To empagliflozin 25 mg PO DAILY 3 months 90 tabs 3RF From valsartan 80 mg PO BID To valsartan 80 mg PO BID 90 days 180 tabs 2RF Coding Level of Care Code Est Pt Level 4 (31642) Diagnoses Diabetic nephropathy associated with type 2 diabetes mellitus E11.21 Diabetes mellitus type: type 2 CKD stage 3 due to type 2 diabetes mellitus E11.22; N18.30 Primary hypertension I10 Hypertension type: primary hypertension
[2024-02-12 11:28] VITALS: BP 140/90; PULSE 59; O2SAT 97; BMI 36.3
== END 2024-02-12 11:47 | disposition home or self-care (01) ==
PROVIDERS: PCP Nurse Practitioner Family; Visit Provider Internal Medicine Nephrology
DX: I12.9 Hypertensive chronic kidney disease with stage 1 through stage 4 chronic kidney disease, or unspecified chronic kidney disease (principal); E11.22 Type 2 diabetes mellitus with diabetic chronic kidney disease; N18.30 Chronic kidney disease, stage 3 unspecified; E11.21 Type 2 diabetes mellitus with diabetic nephropathy
CPT/HCPCS: 99214

== ENCOUNTER → 2024-02-12 11:23 | Outpatient (BNVA) | payer OTHER, SELFPAY | PROVIDERS: PCP Nurse Practitioner Family; Visit Provider Internal Medicine Nephrology ==

== ENCOUNTER 2024-03-07 10:36 | Outpatient (AMB) | payer OTHER, SELFPAY ==
--- NOTE | 2024-03-07 10:40 | MHC.PC.OV ---
Vital Signs 03/07/24 10:46 Height 5 ft 8 in Weight 243 lb 4 oz BMI 37.0 BP 150/80 H Blood Pressure Location Rt brachial Position Sitting Respiration 16 Pulse 64 Pulse Source Pulse Oximeter Temp 98.0 F Temp Source Oral Pulse Oximetry (%) 99 Oxygen Delivery Method Room Air Intake Visit Reasons: 10 wks HTN, DM Intake Note: patient here to follow up on HTN and DM Php Website Developer Required: No Allergies No Known Allergies Allergy (Verified 03/07/24 10:42) Tobacco use date assessed: 03/07/24 Dental Screening Dental Screen Date: 03/07/24 Did you have a dental visit in the last 12 months?: No Did you have a dental problem in the last 6 months where you did not have access to dental care?: No Was dental information given to patient?: Patient has dentist HPI HPI Comments History of Present Illness Details 53-year-old male presents for hypertension and diabetes follow-up He admits to taking his medications as prescribed without adverse reactions He notes that he has been maintaining a low-sodium diet He offers no complaints and denies acute symptoms at this time He notes that he drinks 6 pack beers beers on Saturdays. Two weeks ago, he cut down from drinking 12 packs on Saturdays [facility] Medical History CKD (chronic kidney disease) stage 3, GFR 30-59 ml/min Sleep apnea Chronic heart failure with preserved ejection fraction (HFpEF) Elevated cholesterol Iron deficiency anemia Chronic renal insufficiency Diabetic nephropathy Acute heart failure with preserved ejection fraction (HFpEF) Necrotizing subcutaneous infection Hypertension Type 2 diabetes Surgical History History of pyloromyotomy Status post incision and drainage [place] teeth removed Family History Mother Diabetes Maternal Uncle Diabetes Sister Multiple sclerosis Social History Household Members: Spouse Both parents involved: No Caregiver staying overnight: No Housing: House Are you a primary rental boats caretaker to a significant other at home: No Do you presently have visiting nurse or other home services: No 75 years or older and lives alone: No Alcohol intake: current Alcohol intake frequency: a few times a week Alcohol type: beer Patient Tobacco Use Status: Former Tobacco user Tobacco use type: Cigarette Years Smoked: 4 e-Cigarette/Vaping Use: Never Used Second Hand Smoke Exposure: Yes Substance Use Type: Marijuana Advance Directives Date on File: 05/07/23 service: No Current occupational status: employed Current occupation: [employer] Cognitive needs: No Hearing needs: No Vision needs: No Questionnaire PHQ-9 Over the last 2 weeks, how often have you been bothered by any of the following problems? 1. Little interest or pleasure in doing things: not at all 2. Feeling down, depressed, or hopeless: not at all 3. Trouble falling or staying asleep, or sleeping too much: not at all 4. Feeling tired or having little energy: several days 5. Poor appetite or overeating: not at all 6. Feeling bad about yourself - or that you are a failure or have let yourself or your family down: not at all 7. Trouble concentrating on things, such as reading the newspaper or watching television: not at all 8. Moving or speaking so slowly that other people could have noticed. Or the opposite - being so fidgety or restless that you have been moving around a lot more than usual: not at all 9. Thoughts that you would be better off or of hurting yourself in some way: not at all Total score: 1 Depression Screening Interpretation: Negative Depression Screening Done: Yes Source: Developed by Drs. Higinio Rodriguez, Olivia Rayo, Edilberto Freeman and colleagues, with an educational smitha from [employer]. Thrive Questionnaire Date Thrive assessed: 02/29/24 I am a: Patient What is your living situation today?: I have a steady place to live Within the past 12 months, did the food you bought not last and you didn't have the money to get more?: Often true Within the past 12 months, did you worry whether your food would run out before you got money to buy more?: Often true Do you have trouble paying for medicines?: Yes Do you have trouble getting transportation to medical appointments?: No Do you have trouble paying your heating and electricity bill?: Yes Do you have trouble taking care of your child, family member or friend?: No Do you have trouble with day-to-day activities such as bathing, preparing meals, shopping, managing finances, etc.?: No Are you currently unemployed and looking for a job?: No Are you interested in more education?: No Please select the resources that you would like help with: Food, Paying for medicine and Utilities Currently or been in a relationship where the following occur: No concerns reported THRIVE Score: 3 AUDIT C Alcohol Use Questionnaire (AUDIT-C) 1. How often do you have a drink containing alcohol?: 2-3 times a week 2. How many drinks containing alcohol do you have on a typical day when you are drinking?: 3 or 4 3. How often do you have six or more drinks on one occasion?: Weekly Total Score: 7 Score Reviewed/Action Taken: Yes UTE-7 AMB Questionnaire UTE-7 Date UTE - 7 assessed: 09/01/23 Feeling nervous, anxious, or on edge: 1 = Several days Not being able to stop or control worryin = Several days Worrying too much about different things: 1 = Several days Trouble relaxin = Several days Being so restless that it is hard to sit still: 1 = Several days Becoming easily annoyed or irritable: 0 = Not at all Feeling afraid as if something awful might happen: 1 = Several days Total UTE-7 score (0-4 normal; 5-9 mild; 10-14 moderate; 15-21 severe): 6 Source: Developed by Drs. Higinio Rodriguez, Olivia Rayo, Edilberto Freeman and colleagues, with an educational smitha from [employer]. Review of Systems Const Details: Const Denies chills, Denies fatigue, Denies fever(s), Denies headache(s) and Denies weakness ENT Denies dizziness and Denies headache(s) Card Denies chest pain, Denies lightheadedness, Denies dyspnea and Denies other (Palpitations) Resp Denies cough, Denies dyspnea, Denies wheezing and Denies other ( shortness of breath) GI Denies abdominal pain, Denies melena, Denies hematochezia, Denies change in bowel habits, Denies dyspepsia and Denies nausea Denies hematuria and Denies dysuria Musc Denies abnormal gait, Denies myalgias, Denies arthralgias, Denies numbness and Denies tingling Skin/Breast Denies rash, Denies unusual bruising and Denies wounds Neuro Denies abnormal gait, Denies dizziness, Denies headache(s), Denies memory loss, Denies numbness, Denies Sensory deficit (Neuro), Denies tingling and Denies weakness Psych Denies anxiety, Denies depression, Denies memory loss Endo Denies cold intolerance, Denies fatigue, Denies heat intolerance, Denies polydipsia and Denies polyuria Aller/Immun Denies wheezing Physical exam (Primary Care) Vital Signs: Last Vital Signs Temp 98.0 F 03/07/24 10:46 Pulse 64 03/07/24 10:46 Resp 16 03/07/24 10:46 BP 150/80 H 03/07/24 10:46 Pulse Ox 99 03/07/24 10:46 Oxygen Delivery Method Room Air 03/07/24 10:46 BMI result Body Mass Index 37.0 Tobacco/Smoking Status: Tobacco use Status Tobacco use date assessed 03/07/24 03/07/24 10:48 Patient Tobacco Use Status Former Tobacco user 03/07/24 10:42 Tobacco use type Cigarette 03/07/24 10:42 e-Cigarette/Vaping Use Never Used 03/07/24 10:42 PHQ-9: PHQ-9 Score PHQ-9: Total score 1 03/07/24 10:57 Depression Screening Interpretation: Negative Thrive Assessment: Date of Thrive Assessment Date Thrive assessed 02/29/24 03/07/24 10:42 Currently or been in a relationship where the following occur: No concerns reported Const Other: General: no acute distress and well developed Nutritional Appearance: well nourished Orientation/consciousness: patient oriented x3 HENMT Head: Yes normocephalic and Yes atraumatic Eyes General: appearance normal, both eyes and all related structures Pupils: Equal, round and reactive pupils present EOM: EOMs intact bilaterally Resp Effort & Inspection: normal respiratory effort Auscultation: clear to auscultation bilaterally Cardio Rate: regular rate Rhythm: regular rhythm Heart sounds: S1 normal heart sound present, S2 normal heart sound present, no gallops, no murmurs and no rubs GI Palpation (GI): No Abdominal aortic bruit present, Soft to palpation, nontender, No hepatosplenomegaly present and No Rebound tenderness present Auscultation: normal bowel sounds General: Yes no CVA tenderness Back/Spine/Pelvis Back: no CVA tenderness Extrem General: Yes normal to inspection, No edema and No calf tenderness Skin General: warm and dry. Normal skin color. Normal skin turgor Neuro General: patient oriented x3, gait normal and no focal neuro deficit Cranial nerves: Yes Equal, round and reactive pupils present Cognition (Neuro): normal cognition Gait exam (Neuro): Normal gait present Sensory Exam: No Sensory deficit (Neuro) Psych Appearance: grossly normal Affect: normal affect Attitude: cooperative Thought process: Normal thought process present Results AMB Hemoglobin A1c AMB Hemoglobin A1c 6.4 % Last Edit by Latasha Blanco MA on 03/07/24 11:24 Results Reviewed Results Reviewed: Laboratory Last Values Hgb A1c (Clinic) 6.4 % (4.0-6.0) H 03/07/24 10:58 Coding Level of Care Code Est Pt Level 4 (83844) Diagnoses Primary hypertension I10 Hypertension type: primary hypertension Diabetes E11.9 Assessment & Plan Assessment & Plan (1) Hypertension: Code(s): I10 - Essential (primary) hypertension Category: Medical Qualifiers: Hypertension type: primary hypertension Qualified Code(s): I10 - Essential (primary) hypertension Plan: Resting blood pressure was 150/80, above goal of less than 130/80 Will increase valsartan to 160 mg in the morning and 80 mg at night; advised to take as prescribed Continue to take carvedilol, clonidine, and furosemide as prescribed Low-sodium diet encouraged Encouraged to limit or avoid alcohol intake Follow-up in 1 week or sooner with symptoms such as dizziness/lightheadedness Verbalized understanding and agreed with the treatment plan (2) Diabetes: Code(s): E11.9 - Type 2 diabetes mellitus without complications Category: Medical Plan: A1c today is 6.4%, within goal of less than 7.0%. Previous A1c was 6.1% Continue current treatment regimen ADA diet and routine exercise encouraged Will recheck A1c in 3 months Verbalized understanding and agreed with the treatment plan Orders: Orders AMB Hemoglobin A1c Today Z13.9 - Encounter for screening, unspecified Medications: New valsartan 160 mg PO QAM 90 tabs 1RF 90 days Changed From valsartan 80 mg PO BID 90 days 180 tabs 2RF To valsartan 80 mg PO QPM 90 tabs 1RF 90 days
[2024-03-07 10:46] VITALS: BP 150/80; PULSE 64; RESP 16; TEMP 36.7; O2SAT 99; BMI 37.0
== END 2024-03-07 11:19 | disposition home or self-care (01) ==
PROVIDERS: PCP Nurse Practitioner Family; Visit Provider Nurse Practitioner Family
DX: I10 Essential (primary) hypertension (principal); E11.9 Type 2 diabetes mellitus without complications; Z13.9 Encounter for screening, unspecified

== ENCOUNTER → 2024-03-07 10:36 | Outpatient (BNVA) | payer OTHER, SELFPAY | PROVIDERS: PCP Nurse Practitioner Family; Visit Provider Nurse Practitioner Family | DX: I10 Essential (primary) hypertension (principal); E11.9 Type 2 diabetes mellitus without complications; Z79.899 Other long term (current) drug therapy | CPT/HCPCS: 83036; 96127 ==

== ENCOUNTER 2024-03-15 09:34 | Outpatient (AMB) | payer OTHER, SELFPAY ==
--- NOTE | 2024-03-15 09:40 | A.OFFPC_ITS ---
Vital Signs 03/15/24 09:46 Height 5 ft 8 in Weight 242 lb 4 oz BMI 36.8 BP 150/70 H Blood Pressure Location Rt brachial Position Sitting Respiration 16 Pulse 62 Pulse Source Pulse Oximeter Temp 97.5 F Temp Source Oral Pulse Oximetry (%) 99 Oxygen Delivery Method Room Air Intake Visit Reasons: 1 wk HTN Intake Note: patient here for 1 week follow up for HTN Monologist Required: No Allergies No Known Allergies Allergy (Verified 03/15/24 09:56) Medication List - Last Reconciled 03/15/24 by Quique Tatum CNP atorvastatin 40 mg PO BEDTIME 30 days blood sugar diagnostic (FreeStyle Lite Strips) Test four times a day or as directed. blood-glucose meter (FreeStyle Lite Meter kit) As Directed carvedilol 12.5 mg PO BID cholecalciferol (vitamin D3) 50 mcg PO DAILY clonidine HCl 0.1 mg PO BID 30 days comp.stocking,knee,long,medium As directed empagliflozin 25 mg PO DAILY 3 months fenofibrate 54 mg PO DAILY ferrous sulfate 325 mg PO TID 30 days fluticasone propionate 50 mcg/actuation (Flonase Allergy Relief) 2 sprays intranasal BID PRN furosemide 40 mg PO QAM insulin glargine (Basaglar KwikPen U-100 Insulin) 15 units (0.15 mL) subcut QPM lancets (FreeStyle Lancets) TEST FOUR TIMES A DAY OR DIRECTED. metformin 1,000 mg PO BID miscellaneous medical supply 1 large blood pressure cuff multivitamin 1 tab PO DAILY omega-3 fatty acids-fish oil 684-1,200 mg 1 cap PO DAILY pen needle, diabetic (BD Toshia 2nd Gen Pen Needle) USE FOUR TIMES A DAY OR DIRECTED. sodium polystyrene sulfonate 30 grams orally once a week; valsartan 160 mg PO QAM 90 days valsartan 80 mg PO QPM 90 days zinc acetate 50 mg (2 x 25 mg (zinc)) PO BID 3 months Tobacco use date assessed: 03/15/24 Dental Screening Dental Screen Date: 03/15/24 Did you have a dental visit in the last 12 months?: No Did you have a dental problem in the last 6 months where you did not have access to dental care?: No Was dental information given to patient?: Patient has dentist HPI HPI Comments History of Present Illness Details The patient presents for a follow-up to manage elevated blood pressure. The patient is a 53-year-old male presenting with poorly controlled essential hypertension. His blood pressure was elevated to 150/80 mmHg at the last visit. Consequently, the dosage of Valsartan was increased to 160 mg in the morning and 80 mg at night. The patient reports adherence to the prescribed dosage regimen. His blood pressure remains elevated at 150/70 mmHg during this visit. Current medications for hypertension include Valsartan, Clonidine, Carvedilol, and Furosemide. Dietary modifications such as salt restriction were also implemented. The patient denies any symptoms such as headaches, blurry vision, dizziness, or leg swelling. [facility] Medical History CKD (chronic kidney disease) stage 3, GFR 30-59 ml/min Sleep apnea Chronic heart failure with preserved ejection fraction (HFpEF) Elevated cholesterol Iron deficiency anemia Chronic renal insufficiency Diabetic nephropathy Acute heart failure with preserved ejection fraction (HFpEF) Necrotizing subcutaneous infection Hypertension Type 2 diabetes Surgical History History of pyloromyotomy Status post incision and drainage [place] teeth removed Family History Mother Diabetes Maternal Uncle Diabetes Sister Multiple sclerosis Social History Household Members: Spouse Both parents involved: No Caregiver staying overnight: No Housing: House Are you a primary acute care certified nursing assistant to a significant other at home: No Do you presently have visiting nurse or other home services: No 75 years or older and lives alone: No Alcohol intake: current Alcohol intake frequency: a few times a week Alcohol type: beer Patient Tobacco Use Status: Former Tobacco user Tobacco use type: Cigarette Years Smoked: 4 e-Cigarette/Vaping Use: Never Used Second Hand Smoke Exposure: Yes Substance Use Type: Marijuana Advance Directives Date on File: 05/07/23 service: No Current occupational status: employed Current occupation: [employer] Cognitive needs: No Hearing needs: No Vision needs: No Questionnaire Thrive Questionnaire Date Thrive assessed: 02/29/24 I am a: Patient What is your living situation today?: I have a steady place to live Within the past 12 months, did the food you bought not last and you didn't have the money to get more?: Often true Within the past 12 months, did you worry whether your food would run out before you got money to buy more?: Often true Do you have trouble paying for medicines?: Yes Do you have trouble getting transportation to medical appointments?: No Do you have trouble paying your heating and electricity bill?: Yes Do you have trouble taking care of your child, family member or friend?: No Do you have trouble with day-to-day activities such as bathing, preparing meals, shopping, managing finances, etc.?: No Are you currently unemployed and looking for a job?: No Are you interested in more education?: No Currently or been in a relationship where the following occur: No concerns reported THRIVE Score: 3 UTE-7 AMB Questionnaire UTE-7 Date UTE - 7 assessed: 09/01/23 Source: Developed by Drs. Higinio Rodriguez, Olivia Rayo, Edilberto Freeman and colleagues, with an educational smitha from [employer]. Review of Systems Const Details: Const Denies chills, Denies fatigue, Denies fever(s), Denies headache(s) and Denies weakness ENT Denies dizziness and Denies headache(s) Card Denies chest pain, Denies lightheadedness, Denies dyspnea and Denies other (Palpitations) Resp Denies cough, Denies dyspnea, Denies wheezing and Denies other ( shortness of breath) GI Denies abdominal pain, Denies melena, Denies hematochezia, Denies change in bowel habits, Denies dyspepsia and Denies nausea Denies hematuria and Denies dysuria Musc Denies abnormal gait, Denies myalgias, Denies arthralgias, Denies numbness and Denies tingling Skin/Breast Denies rash, Denies unusual bruising and Denies wounds Neuro Denies abnormal gait, Denies dizziness, Denies headache(s), Denies memory loss, Denies numbness, Denies Sensory deficit (Neuro), Denies tingling and Denies weakness Psych Denies anxiety, Denies depression, Denies memory loss Endo Denies cold intolerance, Denies fatigue, Denies heat intolerance, Denies polydipsia and Denies polyuria Aller/Immun Denies wheezing Physical exam (Primary Care) Vital Signs: Last Vital Signs Temp 97.5 F 03/15/24 09:46 Pulse 62 03/15/24 09:46 Resp 16 03/15/24 09:46 BP 138/64 03/15/24 09:46 Pulse Ox 99 03/15/24 09:46 Oxygen Delivery Method Room Air 03/15/24 09:46 BMI result Body Mass Index 36.8 Tobacco/Smoking Status: Tobacco use Status Tobacco use date assessed 03/15/24 03/15/24 09:50 Patient Tobacco Use Status Former Tobacco user 03/15/24 09:41 Tobacco use type Cigarette 03/15/24 09:41 e-Cigarette/Vaping Use Never Used 03/15/24 09:41 Thrive Assessment: Date of Thrive Assessment Date Thrive assessed 02/29/24 03/15/24 09:41 Currently or been in a relationship where the following occur: No concerns reported Const Other: General: no acute distress and well developed Nutritional Appearance: well nourished Orientation/consciousness: patient oriented x3 HENMT Head: Yes normocephalic and Yes atraumatic Eyes General: appearance normal, both eyes and all related structures Pupils: Equal, round and reactive pupils present EOM: EOMs intact bilaterally Resp Effort & Inspection: normal respiratory effort Auscultation: clear to auscultation bilaterally Cardio Rate: regular rate Rhythm: regular rhythm Heart sounds: S1 normal heart sound present, S2 normal heart sound present, no gallops, no murmurs and no rubs GI Palpation (GI): No Abdominal aortic bruit present, Soft to palpation, nontender, No hepatosplenomegaly present and No Rebound tenderness present Auscultation: normal bowel sounds General: Yes no CVA tenderness Back/Spine/Pelvis Back: no CVA tenderness Extrem General: Yes normal to inspection, No edema and No calf tenderness Skin General: warm and dry. Normal skin color. Normal skin turgor Neuro General: patient oriented x3, gait normal and no focal neuro deficit Cranial nerves: Yes Equal, round and reactive pupils present Cognition (Neuro): normal cognition Gait exam (Neuro): Normal gait present Sensory Exam: No Sensory deficit (Neuro) Psych Appearance: grossly normal Affect: normal affect Attitude: cooperative Thought process: Normal thought process present Coding Level of Care Code Est Pt Level 3 (06312) Diagnoses Primary hypertension I10 Hypertension type: primary hypertension Assessment & Plan Assessment & Plan (1) Hypertension: Code(s): I10 - Essential (primary) hypertension Category: Medical Qualifiers: Hypertension type: primary hypertension Qualified Code(s): I10 - Essential (primary) hypertension Plan: - Essential Hypertension: Increase Valsartan to 160 mg taken twice daily. Continue current regimen of Clonidine, Carvedilol, and Furosemide. Reinforce lifestyle modifications including a low-sodium diet and regular exercise. Schedule a follow-up visit in one month to reassess blood pressure control. Perform a fasting lipid panel and cholesterol screening prior to the next appointment to monitor cardiovascular risk factors. During the visit, I discussed the current management of the patient's hypertension, emphasizing the importance of strict adherence to the medication regimen and lifestyle changes such as a low-sodium diet and regular exercise. I increased the Valsartan dosage to 160 mg twice daily and explained this is the maximum dosage. I underscored the importance of routine follow-ups and the need to monitor blood pressure control closely. I encouraged the patient to report any symptoms such as headaches, blurry vision, dizziness, or chest pain. Ad ditionally, I advised the patient to undergo fasting blood tests, including a lipid panel, prior to his next visit. - Increase Valsartan to 160 mg twice daily - Continue current medications including Clonidine, Carvedilol, Furosemide, and Amlodipine as prescribed - Maintain a low-sodium diet and regular exercise regimen - Schedule and attend a follow-up visit in one month - Report any symptoms such as headaches, blurry vision, dizziness, or chest pain immediately - Complete fasting lipid panel and cholesterol screening 10-12 hours before the next visit Patient was informed and verbally consented to the use of an ambient scribe for clinic note documentation during this visit. Orders: Orders Lipid Panel Today E11.9 - Type 2 diabetes mellitus without complications, Z79.4 - long term care pharmacist (current) use of insulin Medications: Changed From valsartan 160 mg PO QAM 90 days 90 tabs 1RF To valsartan 160 mg PO BID 90 days 180 tabs 1RF Discontinued valsartan Discontinued Reason: Doctor's Order 80 mg PO QPM 90 days 90 tabs 1RF
[2024-03-15 09:46] VITALS: BP 150/70; PULSE 62; RESP 16; TEMP 36.4; O2SAT 99; BMI 36.8
== END 2024-03-15 10:11 | disposition home or self-care (01) ==
PROVIDERS: PCP Nurse Practitioner Family; Visit Provider Nurse Practitioner Family
DX: I10 Essential (primary) hypertension (principal)

== ENCOUNTER → 2024-03-15 09:34 | Outpatient (BNVA) | payer OTHER, SELFPAY | PROVIDERS: PCP Nurse Practitioner Family; Visit Provider Nurse Practitioner Family ==

== ENCOUNTER 2024-03-22 08:09 | Outpatient (REF) | payer OTHER, SELFPAY ==
[2024-03-22 09:42] LABS: Anion Gap 10 (12-20); Blood Urea Nitrogen 52 mg/dL (9-16); Calcium 8.6 mg/dL (8.4-10.2); Carbon Dioxide 21 mmol/L (22-29); Chloride 107 mmol/L (96-108); Cholesterol 114 mg/dL (<200); Estimated Glomerular Filt Rate 28; Glucose Random 144 mg/dL (60-115); HDL Cholesterol 35 mg/dL (>40); LDL Cholesterol Calculated 56 mg/dL (<100); Potassium 5.3 mmol/L (3.3-5.1); Sodium 133 mmol/L (135-145); Triglycerides 118 mg/dL (<150)
== END 2024-03-22 08:10 | disposition home or self-care (01) ==
LOC: HO.LAB 08:09
PROVIDERS: PCP Nurse Practitioner Family; Visit Provider Internal Medicine Cardiovascular Disease
DX: I50.32 Chronic diastolic (congestive) heart failure (principal); E11.9 Type 2 diabetes mellitus without complications; Z79.4 Long term (current) use of insulin
CPT/HCPCS: 36415; 80048; 80061

== ENCOUNTER → 2024-03-23 08:32 | Outpatient (REF) | payer OTHER, SELFPAY ==
--- NOTE | 2024-03-23 08:34 | CA_ITS ---
Transthoracic Echocardiogram Patient (Last, First, Middle): River Luque L Gender: Male Date of : 1970 Age: 53 Procedure Date: 03/23/2024 Procedure Type: Transthoracic Echocardiogram Location: OP Height: 172.72 cm Weight: 109.77 kg BSA: 2.22 m2 Heart Rate: bpm BP: 150 / 70 mmHg Anode Builder: PAOLO Referring MD: Jonnathan Pineda MD Symptoms: I50.32 - Chronic diastolic (congestive) heart failure Study Quality: Fair/Contrast ECG Rhythm: Sinus Conclusions: - The left ventricular systolic function is normal. The calculated ejection fraction is 60% by biplane method. - No obvious valvular pathology seen on this study. Findings Procedure Information Contrast agent, definity, is being given per protocol without apparent complications. Left Ventricle Normal left ventricular cavity size. There is normal left ventricular wall thickness. The left ventricular systolic function is normal. The calculated ejection fraction is 60% by biplane method. There is no evidence of regional wall motion abnormalities. Diastolic function is normal for age. Right Ventricle Normal right ventricular cavity size and systolic function. Atria Both atria are normal in size. Aortic Valve There is a normal trileaflet aortic valve. There is no aortic valve stenosis. There is no aortic valve regurgitation. Mitral Valve The mitral valve appears normal. There is no mitral valve regurgitation. There is no mitral valve stenosis. Pulmonic Valve The pulmonic valve is likely normal. Tricuspid Valve There is trace tricuspid valve regurgitation. There is no evidence of pulmonary hypertension. Great Vessels The asc aorta is normal in size. Venous The inferior vena cava is normal in size and collapses greater than 50% with inspiration. Pericardium/Pleural There is no evidence of pericardial effusion. Prior Study Comparison Changes noted compared to prior study dated: 05/05/2023. Diastolic function improved. Recommendations, Care & Conclusions No obvious valvular pathology seen on this study. Measurements 2D Linear Measurements IVSd: 1.00 0.6-0.9/0.6-1.0 cm LVIDd: 5.10 3.9-5.3/4.2-5.9 cm LVIDd Index: 2.30 2.4-3.2/2.2-3.1 cm/m2 LVIDs: 3.38 2.0-3.6 cm LVPWd: 0.88 0.7-1.1 cm Ao Root: 3.20 2.1-3.5 cm LA Diam: 4.70 2.7-3.8/3.0-4.0 cm LAIDs Index: 2.12 1.5-2.3 cm/m2 LV Mass: 215.26 67-162/88-224 g LV Mass Index: 96.96 43-95/49-115 g/m2 LVOT Diam: 2.20 3.0+(-)1.3 cm 2D Systolic Function EF 4C: 58.80 >55% EF 2C: 60.00 >55% EF BiP: 59.50 >55% Mitral Valve MV Pk E: 0.82 MV PK A: 0.57 MV Decel Time: 246.00 E/A: 1.50 E'Lateral: 12.50 E'Medial: 6.74 E/E' Med: 12.20 E/E' Lat: 6.60 PHT: 72.00 MVA PHT: 3.06 Decel [place]: 3.34 Aortic Valve AoV Pk Harsh: 1.49 AoV Mn Harsh: 0.97 AoV VTI: 0.36 AoV Pk Grad: 9.00 Aov Mn Grad: 4.00 AISHWARYA Cont.VTI: 2.60 LVOT LVOT Pk Harsh: 1.02 LVOT Mn Harsh: 0.63 LVOT VTI: 0.25 LVOT Pk Grad: 4.00 LVOT Mn Grad: 2.00 LVOT Diam: 2.20 LVOT Area: 3.80 Diastolic Function MV Pk E: 0.82 MV Pk A: 0.57 E/A: 1.50 E'Medial: 6.74 E/E' Med: 12.20 E' Laterial: 12.50 E/E' Lat: 6.60 Tricuspid Valve TR Pk Harsh: 2.14 TR Pk Grad: 18.00 RA Press: 3.00 RVSP: 21.00 Great Vessels Aorta Ao Root-2D: 3.20 2.0-3.7 cm Ao Asc: 3.40 2.1-3.4 cm Updated in Other Vendor System with Status of Final Moises Patton MD electronically signed on 03/25/2024 1:11:06 PM with status of Final
== END ==
LOC: HO.CARD 08:32
PROVIDERS: PCP Nurse Practitioner Family; Visit Provider Internal Medicine Cardiovascular Disease
DX: I50.32 Chronic diastolic (congestive) heart failure (principal)
CPT/HCPCS: 93306; Q9957

== ENCOUNTER → 2024-03-23 08:34 | Outpatient (BNV) | payer OTHER, SELFPAY | PROVIDERS: PCP Nurse Practitioner Family; Visit Provider Internal Medicine | DX: I50.32 Chronic diastolic (congestive) heart failure (principal) | CPT/HCPCS: 93306 ==

== ENCOUNTER 2024-03-28 08:20 | Outpatient (AMB) | payer OTHER, SELFPAY ==
[2024-03-28 08:31] VITALS: BP 124/76; PULSE 63; BMI 37.2
--- NOTE | 2024-03-28 08:31 | A.OFFVIS_ITS ---
Vital Signs 03/28/24 08:31 Height 5 ft 8 in Weight 244 lb 11.41 oz BMI 37.2 BP 124/76 Blood Pressure Location Lt brachial Position Sitting Pulse 63 Intake Visit Reasons: 6m follow up/echo/labs Intake Note: 6 month follow-up after echo feeling good Building Construction Engineer Required: No Allergies No Known Allergies Allergy (Verified 03/15/24 09:56) Medication List - Last Reconciled 03/28/24 by Jonnathan Pineda MD atorvastatin 40 mg PO BEDTIME 30 days blood sugar diagnostic (FreeStyle Lite Strips) Test four times a day or as directed. blood-glucose meter (FreeStyle Lite Meter kit) As Directed carvedilol 12.5 mg PO BID cholecalciferol (vitamin D3) 50 mcg PO DAILY clonidine HCl 0.1 mg PO BID 30 days comp.stocking,knee,long,medium As directed empagliflozin 25 mg PO DAILY 3 months fenofibrate 54 mg PO DAILY ferrous sulfate 325 mg PO TID 30 days fluticasone propionate 50 mcg/actuation (Flonase Allergy Relief) 2 sprays intranasal BID PRN furosemide 40 mg PO QAM insulin glargine (Basaglar KwikPen U-100 Insulin) 15 units (0.15 mL) subcut QPM lancets (FreeStyle Lancets) TEST FOUR TIMES A DAY OR DIRECTED. metformin 1,000 mg PO BID miscellaneous medical supply 1 large blood pressure cuff multivitamin 1 tab PO DAILY omega-3 fatty acids-fish oil 684-1,200 mg 1 cap PO DAILY pen needle, diabetic (BD Toshia 2nd Gen Pen Needle) USE FOUR TIMES A DAY OR DIRECTED. sodium polystyrene sulfonate 30 grams orally once a week; valsartan 160 mg PO BID 90 days zinc acetate 50 mg (2 x 25 mg (zinc)) PO BID 3 months HPI Comments Details: River comes for follow-up. He has been doing well from cardiac perspective. He said he has been breathing well. No orthopnea, PND, leg edema. No abdominal distension. Denies any exertional chest pain or shortness of breath. Creatinine slightly worsened at 2.4. Watches salt in his diet. Uses CPAP regularly. Takes all his medications regularly. Denies prolonged palpitation irregular heartbeat. Recent echocardiogram shows normal LV ejection fraction of 60%. There was no major valvular abnormalities. [facility] Medical History (Updated 03/28/24 @ 08:53 by Jonnathan Pineda MD) CKD (chronic kidney disease) stage 3, GFR 30-59 ml/min Sleep apnea Chronic heart failure with preserved ejection fraction (HFpEF) Elevated cholesterol Iron deficiency anemia Chronic renal insufficiency Diabetic nephropathy Acute heart failure with preserved ejection fraction (HFpEF) Necrotizing subcutaneous infection Hypertension Type 2 diabetes Surgical History History of pyloromyotomy Status post incision and drainage [place] teeth removed Family History Mother Diabetes Maternal Uncle Diabetes Sister Multiple sclerosis Social History Household Members: Spouse Both parents involved: No Caregiver staying overnight: No Housing: House Are you a primary healthcare administration internship to a significant other at home: No Do you presently have visiting nurse or other home services: No 75 years or older and lives alone: No Alcohol intake: current Alcohol intake frequency: a few times a week Alcohol type: beer Patient Tobacco Use Status: Former Tobacco user Tobacco use type: Cigarette Years Smoked: 4 e-Cigarette/Vaping Use: Never Used Second Hand Smoke Exposure: Yes Substance Use Type: Marijuana Advance Directives Date on File: 05/07/23 service: No Current occupational status: employed Current occupation: [employer] Cognitive needs: No Hearing needs: No Vision needs: No Review of Systems Const Denies chills, Denies fatigue, Denies fever(s), Denies frequent falls, Denies weakness, Denies weight gain and Denies weight loss ENT Denies dizziness Card Denies chest pain, Denies leg edema, Denies lightheadedness, Denies palpitations, Denies dyspnea, Denies dyspnea on exertion, Denies orthopnea and Denies other (loss of consciousness) Resp Denies cough, Denies dyspnea and Denies dyspnea on exertion GI Denies hematochezia and Denies change in stool character Musc Denies abnormal gait, Denies muscle weakness, Denies numbness, Denies radiating pain into limb and Denies tingling Neuro Denies abnormal gait, Denies dizziness, Denies frequent falls, Denies numbness, Denies tingling and Denies weakness Endo Denies fatigue and Denies palpitations Physical Exam Vital Signs: Last Vital Signs Pulse 63 03/28/24 08:31 BP 124/76 03/28/24 08:31 BMI result Body Mass Index 37.2 Const General: cooperative, healthy appearing, comfortable and no acute distress Orientation/consciousness: patient oriented x3 Neck Neck: Yes normal visual inspection Resp Effort & Inspection: normal respiratory effort Auscultation: clear to auscultation bilaterally, no crackles, no rales, no rhonchi and no wheezes Cardio Jugular venous distension: no JVD Rate: regular rate Rhythm: regular rhythm Heart sounds: S1 normal heart sound present, S2 normal heart sound present, no murmurs and no rubs Neuro General: patient oriented x3 Extrem General: Yes normal to inspection and No no pedal edema Psych Appearance: grossly normal Mental Status: mental status grossly normal Speech and movement: Normal speech and movement present Assessment & Plan Assessment & Plan (1) Chronic heart failure with preserved ejection fraction (HFpEF): Code(s): I50.32 - Chronic diastolic (congestive) heart failure Category: Medical Plan: Chronic heart failure with preserved ejection fraction, clinically euvolemic and well compensated. He has multiple comorbidities including anemia, chronic kidney disease as well as diabetes and obesity. Importance of controlling his risk factors were discussed. Continue aggressive diuretic therapy, currently on Lasix. Heart failure management was discussed in details. Daily weight monitoring avoidance salt loading was discussed. Additional diuretics as need be. Continue Jardiance therapy. Continue follow-up with renal team closely. Continue aggressive blood pressure control. Encouraged to measure blood pressure intermittently at home and target goal blood pressure less than 130/84. Continue CPAP treatment. Encouraged to continue to participate in physical activity as tolerated and participate in weight loss program. Understands agrees. Continue aggressive diabetes management as well. Advised to call me with any new symptoms. Will follow up in the clinic in 1 year's time, sooner p.r.n.. Thank you for allowing me to partake in his care Coding Level of Care Code Est Pt Level 4 (57692) Complex EM visit Add On G2211 Diagnoses Chronic heart failure with preserved ejection fraction (HFpEF) I50.32
== END 2024-03-28 08:54 | disposition home or self-care (01) ==
PROVIDERS: PCP Nurse Practitioner Family; Visit Provider Internal Medicine Cardiovascular Disease
DX: I50.32 Chronic diastolic (congestive) heart failure (principal)
CPT/HCPCS: 99214

== ENCOUNTER 2024-04-18 09:52 | Outpatient (AMB) | payer OTHER, SELFPAY ==
--- NOTE | 2024-04-18 09:54 | A.OFFPC_ITS ---
Vital Signs 04/18/24 09:58 04/18/24 10:15 Height 5 ft 8 in Weight 248 lb BMI 37.7 BP 158/68 H 150/70 H Blood Pressure Location Rt brachial Lt brachial Position Sitting Sitting Respiration 16 Pulse 68 60 Pulse Source Pulse Oximeter Auscultation Temp 97.8 F Temp Source Oral Pulse Oximetry (%) 98 Oxygen Delivery Method Room Air Intake Visit Reasons: HTN check Intake Note: patient here for HTN follow up. Clipper Automatic Required: No Allergies No Known Allergies Allergy (Verified 04/18/24 10:05) Medication List - Last Reconciled 04/18/24 by Quique Tatum CNP atorvastatin 40 mg PO BEDTIME 30 days blood sugar diagnostic (FreeStyle Lite Strips) Test four times a day or as directed. blood-glucose meter (FreeStyle Lite Meter kit) As Directed carvedilol 12.5 mg PO BID cholecalciferol (vitamin D3) 50 mcg PO DAILY clonidine HCl 0.1 mg PO BID 90 days comp.stocking,knee,long,medium As directed empagliflozin 25 mg PO DAILY 3 months fenofibrate 54 mg PO DAILY ferrous sulfate 325 mg PO TID 30 days fluticasone propionate 50 mcg/actuation (Flonase Allergy Relief) 2 sprays intranasal BID PRN furosemide 40 mg PO QAM insulin glargine (Basaglar KwikPen U-100 Insulin) 15 units (0.15 mL) subcut QPM lancets (FreeStyle Lancets) TEST FOUR TIMES A DAY OR DIRECTED. metformin 1,000 mg PO BID miscellaneous medical supply 1 large blood pressure cuff multivitamin 1 tab PO DAILY omega-3 fatty acids-fish oil 684-1,200 mg 1 cap PO DAILY pen needle, diabetic (BD Toshia 2nd Gen Pen Needle) USE FOUR TIMES A DAY OR DIRECTED. sodium polystyrene sulfonate 30 grams orally once a week; valsartan 160 mg PO BID 90 days zinc acetate 50 mg (2 x 25 mg (zinc)) PO BID 3 months Tobacco use date assessed: 04/18/24 Dental Screening Dental Screen Date: 04/18/24 Did you have a dental visit in the last 12 months?: No Did you have a dental problem in the last 6 months where you did not have access to dental care?: No Was dental information given to patient?: Patient has dentist HPI HPI Comments History of Present Illness Details 53-year-old male presents for hypertensi on follow-up. He admits to taking his medications as prescribed without adverse reactions. He has been making healthy lifestyle changes, including low-sodium diet. He has been avoiding potassium rich foods, including bananas, oranges, avocados, and potatoes. However, he eat spinach, broccoli, mushrooms, pistachio, salmon, tuna because he did not know their rich in potassium. He offers no complaints and denies acute symptoms at this time. He notes that he has a f/u appointment with [facility] hemat[facility] on 04/28/2023 and nephrology on 05/02/2023. [facility] Medical History (Updated 04/18/24 @ 10:36 by Quique Tatum CNP) CKD (chronic kidney disease) stage 3, GFR 30-59 ml/min Sleep apnea Chronic heart failure with preserved ejection fraction (HFpEF) Elevated cholesterol Iron deficiency anemia Chronic renal insufficiency Diabetic nephropathy Acute heart failure with preserved ejection fraction (HFpEF) Necrotizing subcutaneous infection Hypertension Type 2 diabetes Surgical History History of pyloromyotomy Status post incision and drainage [place] teeth removed Family History Mother Diabetes Maternal Uncle Diabetes Sister Multiple sclerosis Social History Household Members: Spouse Housing: House Are you a primary home child care provider to a significant other at home: No Do you presently have visiting nurse or other home services: No Alcohol intake: current Alcohol intake frequency: a few times a week Alcohol type: beer Patient Tobacco Use Status: Former Tobacco user Tobacco use type: Cigarette Years Smoked: 4 e-Cigarette/Vaping Use: Never Used Second Hand Smoke Exposure: Yes Substance Use Type: Marijuana Advance Directives Date on File: 05/07/23 service: No Current occupational status: employed Current occupation: [employer] Cognitive needs: No Hearing needs: No Vision needs: No Questionnaire Thrive Questionnaire Date Thrive assessed: 02/29/24 I am a: Patient What is your living situation today?: I have a steady place to live Within the past 12 months, did the food you bought not last and you didn't have the money to get more?: Often true Within the past 12 months, did you worry whether your food would run out before you got money to buy more?: Often true Do you have trouble paying for medicines?: Yes Do you have trouble getting transportation to medical appointments?: No Do you have trouble paying your heating and electricity bill?: Yes Do you have trouble taking care of your child, family member or friend?: No Do you have trouble with day-to-day activities such as bathing, preparing meals, shopping, managing finances, etc.?: No Are you currently unemployed and looking for a job?: No Are you interested in more education?: No Currently or been in a relationship where the following occur: No concerns reported THRIVE Score: 3 UTE-7 AMB Questionnaire UTE-7 Date UTE - 7 assessed: 09/01/23 Source: Developed by Drs. Higinio Rodriguez, Olivia Rayo, Edilberto Freeman and colleagues, with an educational smitha from [employer]. Review of Systems Const Details: Const Denies chills, Denies fatigue, Denies fever(s), Denies headache(s) and Denies weakness ENT Denies dizziness and Denies headache(s) Card Denies chest pain, Denies lightheadedness, Denies dyspnea and Denies other (Palpitations) Resp Denies cough, Denies dyspnea, Denies wheezing and Denies other ( shortness of breath) GI Denies abdominal pain, Denies melena, Denies hematochezia, Denies change in bowel habits, Denies dyspepsia and Denies nausea Denies hematuria and Denies dysuria Musc Denies abnormal gait, Denies myalgias, Denies arthralgias, Denies numbness and Denies tingling Skin/Breast Denies rash, Denies unusual bruising and Denies wounds Neuro Denies abnormal gait, Denies dizziness, Denies headache(s), Denies memory loss, Denies numbness, Denies Sensory deficit (Neuro), Denies tingling and Denies weakness Psych Denies anxiety, Denies depression, Denies memory loss Endo Denies cold intolerance, Denies fatigue, Denies heat intolerance, Denies polydipsia and Denies polyuria Aller/Immun Denies wheezing Physical exam (Primary Care) Tobacco/Smoking Status: Tobacco use Status Tobacco use date assessed 03/15/24 03/15/24 09:50 Patient Tobacco Use Status Former Tobacco user 03/15/24 09:41 Tobacco use type Cigarette 03/15/24 09:41 e-Cigarette/Vaping Use Never Used 03/15/24 09:41 Thrive Assessment: Date of Thrive Assessment Date Thrive assessed 02/29/24 03/28/24 08:20 Currently or been in a relationship where the following occur: No concerns reported Const Other: General: no acute distress and well developed Nutritional Appearance: well nourished Orientation/consciousness: patient oriented x3 HENMT Head: Yes normocephalic and Yes atraumatic Eyes General: appearance normal, both eyes and all related structures Pupils: Equal, round and reactive pupils present EOM: EOMs intact bilaterally Resp Effort & Inspection: normal respiratory effort Auscultation: clear to auscultation bilaterally Cardio Rate: regular rate Rhythm: regular rhythm Heart sounds: S1 normal heart sound present, S2 normal heart sound present, no gallops, no murmurs and no rubs GI Palpation (GI): No Abdominal aortic bruit present, Soft to palpation, nontender, No hepatosplenomegaly present and No Rebound tenderness present Auscultation: normal bowel sounds General: Yes no CVA tenderness Back/Spine/Pelvis Back: no CVA tenderness Cervical Spine: cervical ROM normal and No Cervical spine tenderness Thoracic/Lumbar Spine: thoraco-lumbar ROM normal, No pain with thoraco-lumbar ROM, No thoracic spinal tenderness and No lumbar spinal tenderness Extrem General: Yes normal to inspection, No edema and No calf tenderness Skin General: warm and dry. Normal skin color. Normal skin turgor Neuro General: patient oriented x3, gait normal and no focal neuro deficit Cranial nerves: Yes Equal, round and reactive pupils present Cognition (Neuro): normal cognition Gait exam (Neuro): Normal gait present Sensory Exam: No Sensory deficit (Neuro) Psych Appearance: grossly normal Affect: normal affect Attitude: cooperative Thought process: Normal thought process present Coding Level of Care Code Est Pt Level 4 (88382) Diagnoses Primary hypertension I10 Hypertension type: primary hypertension High potassium E87.5 Hyponatremia E87.1 CKD stage 3 due to type 2 diabetes mellitus E11.22; N18.30 Iron deficiency anemia D50.9 Assessment & Plan Assessment & Plan (1) Hypertension: Code(s): I10 - Essential (primary) hypertension Category: Medical Qualifiers: Hypertension type: primary hypertension Qualified Code(s): I10 - Essential (primary) hypertension Plan: Resting blood pressure is 150/70, above goal of less than 130/80. Will increase furosemide to 40 mg twice daily. Continue to take valsartan, carvedilol, and clonidine as prescribed. Low-sodium diet encouraged. Follow-up with Nephrology as planned. Return in 2 months for hypertension and diabetes or sooner with symptoms or concerns. Verbalized understanding and agreed with treatment plan. (2) High potassium: Code(s): E87.5 - Hyperkalemia Category: Medical Plan: Potassium level about a month ago was slightly elevated, 5.3. Likely due to CKD. Potassium rich foods reviewed and advised to limit consumption. Will check potassium level and make changes as needed. Verbalized understanding and agreed with the plan. (3) Hyponatremia: Code(s): E87.1 - Hypo-osmolality and hyponatremia Category: Medical Plan: Recent sodium level about a month ago was slightly low, 133. Furosemide may be a contributing factor. Will recheck sodium levels and make changes as needed. (4) CKD stage 3 due to type 2 diabetes mellitus: Code(s): E11.22 - Type 2 diabetes mellitus with diabetic chronic kidney disease; N18.30 - Chronic kidney disease, stage 3 unspecified Category: Medical Plan: Recent BUN and creatinine levels are elevated, 52 and 2.42; GFR is low, 28. Continue current treatment regimen. Follow-up with Nephrology as planned early next month. Verbalized understanding and agreed with treatment plan. (5) Iron deficiency anemia: Code(s): D50.9 - Iron deficiency anemia, unspecified Category: Medical Plan: Recent RBC, and H&H level about a month ago were low, 3.46, and 10.8/32.2. No acute symptoms. He is followed by [facility] hematology/oncology. Return with symptoms or concerns. Verbalized understanding and agreed with the plan. Orders: Orders Basic Metabolic Panel Today E11.22 - Type 2 diabetes mellitus with diabetic chronic kidney disease, E87.1 - Hypo-osmolality and hyponatremia, E87.5 - Hyperkalemia, N18.30 - Chronic kidney disease, stage 3 unspecified Medications: Changed From furosemide 40 mg PO QAM 30 tabs 1RF To furosemide 40 mg PO BID 30 tabs 1RF Patient Instructions: Recent lipid panel level is unremarkable except for low HDL, 35. Continue current treatment regimen. Advised to limit foods high in saturated fat and avoid foods high in trans fat. Routine exercise encouraged. Verbalized understanding and agreed with the plan.
--- OUTSIDE RECORDS SUMMARY | 2024-04-18 09:54 | XMS_ITS ---
Author Organization [facility] Address [address] [place] [id number] Care Team Providers Care Extractions Technologist Name Role Phone Rc Sy.Quique Bhatt Primary Care Provider Higinio Mcmahon Unavailable [phone] Velia Siddiqui Unavailable Unavailable REASON FOR VISIT screening PROBLEMS Problem Type ICD Code Onset Dates Problem Status W/U Status Risk SNOMED Code Notes Problem Diverticulosis of large intestine without perforation or abscess without bleeding (K57.30) Active confirmed Diverticul ar disease of colon ([id number]) Encounters Encounter Location Date Provider Diagnosis [facility] Outpatient [address] [place] [id number] 01/25/2024 Higinio Zhang Colon cancer scree shanthi Z12.11 ; Colon polyp K63.5 ; Diverticulosis of large intestine without perforation or abscess without bleeding K57.30 and Other hemorrhoids K64.8 ASSESSMENTS Encounter Date Diagnosis Assessment Notes Treatment Notes Treatment Clinical Notes 01/25/2024 Colon cancer screening (ICD-10 - Z12.11) 01/25/2024 Colon polyp (ICD-10 - K63.5) 01/25/2024 Diverticulosis of large intestine without perforation or abscess without bleeding (ICD-10 - K57.30) 01/25/2024 Other hemorrhoids (ICD-10 - K64.8) PLAN OF TREATMENT No Information
--- OUTSIDE RECORDS SUMMARY | 2024-04-18 09:54 | XMS_ITS ---
Author Organization [facility] Address [address] [place] [address] Care Team Providers Care Accreditation Manager Name Role Phone Quique Tatum N.P. Primary Care Provider Higinio Mcmahon Unavailable [phone] Velia Siddiqui Unavailable Unavailable ALLERGIES No Known Allergies REASON FOR VISIT Patient presents today for a discuss colonoscopy MEDICATIONS Medication SIG (Take, Route, Frequency, Duration) Notes Start Date End Date Status metFORMIN HCl 1000 MG Oral for 90 Active Atorvastatin Calcium 40 MG Oral for 90 Active Basaglar KwikPen 100 UNIT/ML Subcutaneous for 90 Active Jardiance 10 MG Oral for 90 Ac tive Ferrous Sulfate 325 (65 Fe) MG TAKE 1 TABLET BY MOUTH 3 TIMES A DAY FOR 30 DAYS Oral for 90 Active Carvedilol 12.5 MG Oral for 90 Active Furosemide 40 MG TAKE 1 TABLET BY MESERET TH EVERY MORNING Oral for 90 Active Valsartan 80 MG Oral for 90 Ac tive Fluticasone Propionate 93 MCG/ACT 2 sprays (1 spray in each nostril) Nasally Twice a day for 30 day(s) Active Vitamin D3 50 MCG (2000 UT) Oral for 90 Active [place] 3 Active Zinc Active Multivitamin Active SOCIAL HISTORY Tobacco Use: Social History Observation Description Date Details (start date - stop date) Never Smoker NA - NA Sex Assigned At : Social History Observation Description Sex Assigned At Unknown Tobacco Use/Smoking Question Answer Notes Patient is a nonsmoker Alcohol Screen Question Answer Notes Did you have a drink contain ing alcohol in the past year? Yes How often did you have a dri nk containing alcohol in the past year? 2 to 4 times a month (2 points) How many drinks did you have on a typical day when you were drinking in the past year? 5 or 6 drinks (2 points) Points 4 Interpretation Positive PROBLEMS Problem Type ICD Code Onset Dates Problem Status W/U Status Risk SNOMED Code Notes Problem Colon cancer screening (Z12.11) Active confirmed Colon cancer screening (243362972) Problem Encounter for other preprocedural examination (Z01.818) Active confirmed Pre-procedure evaluation check (113051287) VITAL SIGNS BMI 36.49 kg/m2 10/01/2023 Blood pressure systolic 00 mm Hg 10/01/19 24 Blood pressure diastolic 00 mm Hg 024 Height 5 ft 8 in in 10/01/2023 Weight 240 lbs 10/01/2023 Encounters Encounter Location Date Provider Diagnosis [facility] [address] [place] [address] 10/01/2023 Higinio Zhang Colon cancer screeni ng Z12.11 and Encounter for other preprocedural examination Z01.818 ASSESSMENTS Encounter Date Diagnosis Assessment Notes Treatment Notes Treatment Clinical Notes 10/01/2023 Colon cancer screening (ICD-10 - Z12.11) DO NOT TAKE THE EMPAGLIFLOZIN(JARD IANCE) FOR THREE DAYS BEFORE THE COLONOSCOPY DO NOT TAKE THE METFORMIN THE NIGHT BEFORE NOR ON THE DAY OF THE COLONOSCOPY TAKE ONLY 1/2 YOUR INSULIN THE AFTERNOON BEFORE THE COLONOSCOPY DO NOT TAKE THE FUROSEMIDE ON THE DAY OF THE COLONOSCOPY STOP FERROUS SULFATE AND FISH OIL FOR 1 WEEK BEFORE THE COLONOSCOPY 10/01/2023 Encounter for other preprocedural examination (ICD-10 - Z01.818) PLAN OF TREATMENT Treatment Notes Assessment Notes Colon cancer screening DO NOT TAKE THE EMPAGLIFLOZIN(JARDIANCE) FOR THREE DAYS BEFORE THE COLONOSCOPY DO NOT TAKE THE METFORMIN THE NIGHT BEFORE NOR ON THE DAY OF THE COLONOSCOPY TAKE ONLY 1/2 YOUR INSULIN THE AFTERNOON BEFORE THE COLONOSCOPY DO NOT TAKE THE FUROSEMIDE ON THE DAY OF THE COLONOSCOPY STOP FERROUS SULFATE AND FISH OIL FOR 1 WEEK BEFORE THE COLONOSCOPY Future Test Test Name Order Date COLONOSCOPY 10/01/2023 Next Appt Details Follow Up: prn, Reason: Progress Notes * Examination Category Sub-Category Detail Notes General Examination GENERAL APPEARANCE: pleasant , well nourished, well developed, in no acute distress HEAD: EYES: sclera non-icteric EARS: NOSE: THROAT: NECK/THYROID: no cervical lymphade nopathy, neck supple HEART: S1, S2 normal CHEST: LUNGS: clear to auscultatio n bilaterally ABDOMEN: normal bowel sounds, no guarding or rigidity, no guarding or rigidity, no masses palpable, soft, nontender, nondistended NEUROLOGIC: alert and oriented SKIN: nonjaundiced, no spi claire angiomata EXTREMITIES: no edema PERIPHERAL PULSES: BACK: BREASTS: MUSCULOSKELETAL: MALE GENITOURINARY: LYMPH NODES: RECTAL EXAM: FEMALE GENITOURINARY: ORAL CAVITY: mucosa moist
--- OUTSIDE RECORDS SUMMARY | 2024-04-18 09:55 | XMS_ITS | Patient Health Record ---
Author Organization [facility] Address [address] [place] [address] Care Team Providers Care Barber Shop Operator Name Role Phone Quique Tatum N.P. Primary Care Provider Higinio Mcmahon Unavailable [phone] Velia Siddiqui Unavailable Unavailable ALLERGIES No Known Allergies RESULTS Component Value Reference Range Notes Pathology (Not yet reviewed by provider) Interpretation: Performing Lab:[facility], [address] [place] [phone] Notes/Report: Glucose, Whole Blood Reviewed date:01/25/2024 06:13:15 PM Interpretation: Performing Lab:[facility], [address] [place] [phone] Notes/Report: Glucose, Whole Blood 162 60-115 mg/dL METER # : [id number] REASON FOR REFERRAL No Information MEDICATIONS Medication SIG (Take, Route, Frequency, Duration) Notes Start Date End Date Status Fluticasone Propionate 93 MCG/ACT 2 sprays (1 spray in each nostril) Nasally Twice a day for 30 day(s) Active Multivitamin Active Vitamin D3 50 MCG (2000 UT) Oral for 90 Active metFORMIN HCl 1000 MG Oral for 90 Active Atorvastatin Calcium 40 MG Oral for 90 Active [place] 3 Active Basaglar KwikPen 100 UNIT/ML Subcutaneous for 90 Active Zinc Active Jardiance 10 MG Oral for 90 Ac tive Carvedilol 12.5 MG Oral for 90 Active Furosemide 40 MG TAKE 1 TABLET BY MESERET TH EVERY MORNING Oral for 90 Active Ferrous Sulfate 325 (65 Fe) MG TAKE 1 TABLET BY MOUTH 3 TIMES A DAY FOR 30 DAYS Oral for 90 Active Valsartan 80 MG Oral for 90 Ac tive SOCIAL HISTORY Tobacco Use: Social History Observation [...] Colon cancer screening (Z12.11) Active confirmed Colon can cer screening (791895625) Problem Encounter for other preprocedural examination (Z01.818) Active confirmed Pre-procedure evaluation check (514269737) Problem Diverticulosis of large intestine without perforation or abscess without bleeding (K57.30) Active confirmed Diverticul ar disease of colon (697673206) VITAL SIGNS Blood pressure diastolic 00 mm Hg 10/01/2023 Height 5 ft 8 in in 10/01/2023 Blood pressure systolic 00 mm Hg 10/01/2023 Weight 240 lbs 10/01/2023 BMI 36.49 kg/m2 10/01/2023 Encounters Encounter Location Date Provider Diagnosis [facility] Outpatient [address] [place], [place] [id number] 01/25/2024 Higinio Zhang Colon cancer screeni ng Z12.11 ; Colon polyp K63.5 ; Diverticulosis of large intestine without perforation or abscess without bleeding K57.30 and Other hemorrhoids K64.8 [facility] [address] [place] [address] 10/01/2023 Higinio Zhang Colon cancer screeni ng Z12.11 and Encounter for other preprocedural examination Z01.818 ASSESSMENTS Encounter Date Diagnosis Assessment Notes Treatment Notes Treatment Clinical Notes 01/25/2024 Colon cancer screening (ICD-10 - Z12.11) 01/25/2024 Colon polyp (ICD-10 - K63.5) 10/01/2023 Colon cancer screening (ICD-10 - Z12.11) DO NOT TAKE THE EMPAGLIFLOZIN(JAR DIANCE) FOR THREE DAYS BEFORE THE COLONOSCOPY DO NOT TAKE THE METFORMIN THE NIGHT BEFORE NOR ON THE DAY OF THE COLONOSCOPY TAKE ONLY 1/2 YOUR INSULIN THE AFTERNOON BEFORE THE COLONOSCOPY DO NOT TAKE THE FUROSEMIDE ON THE DAY OF THE COLONOSCOPY STOP FERROUS SULFATE AND FISH OIL FOR 1 WEEK BEFORE THE COLONOSCOPY 10/01/2023 Encounter for other preprocedural examination (ICD-10 - Z01.818) 01/25/2024 Diverticulosis of large intestine without perforation or abscess without bleeding (ICD-10 - K57.30) 01/25/2024 Other hemorrhoids (ICD-10 - K64.8) PLAN OF TREATMENT Pending Test Test Name Order Date Pathology 01/25/2024 Future Test Test Name Order Date COLONOSCOPY 10/01/2023 Insurance Providers Payer Name Payer Address Payer Phone Subscriber Number Group Number Insured Name Patient Relationship to Insured Coverage Start Date Coverage End Date [address] [place] [address] [id number] JORGE FONSECA Self - patient is the insured MEDICAL (GENERAL) HISTORY Medical History History ICD Code Sleep apnea - CPAP machine 09/2023 DM Hypertension CKD stage 3 Anemia Hypercholesterolemia Denies [place],CVA,Lung disease Surgical History Surgery Date(Month/Year) [place] teeth Perirectal abscess -Dr. Valverde--in [facility] for about a week 02/2022
[2024-04-18 09:58] VITALS: BP 158/68; PULSE 68; RESP 16; TEMP 36.6; O2SAT 98; BMI 37.7
[2024-04-18 10:15] VITALS: BP 150/70; PULSE 60
== END 2024-04-18 10:33 | disposition home or self-care (01) ==
PROVIDERS: PCP Nurse Practitioner Family; Visit Provider Nurse Practitioner Family
DX: I12.9 Hypertensive chronic kidney disease with stage 1 through stage 4 chronic kidney disease, or unspecified chronic kidney disease (principal); E11.22 Type 2 diabetes mellitus with diabetic chronic kidney disease; N18.30 Chronic kidney disease, stage 3 unspecified; E87.5 Hyperkalemia; E87.1 Hypo-osmolality and hyponatremia; D50.9 Iron deficiency anemia, unspecified

== ENCOUNTER 2024-04-18 10:38 | Outpatient (REF) | payer OTHER, SELFPAY ==
[2024-04-18 15:25] LABS: Anion Gap 12 (12-20); Blood Urea Nitrogen 47 mg/dL (9-16); Carbon Dioxide 23 mmol/L (22-29); Chloride 110 mmol/L (96-108); Estimated Glomerular Filt Rate 29; Glucose Random 172 mg/dL (60-115); Potassium 5.5 mmol/L (3.3-5.1); Sodium 139 mmol/L (135-145)
== END 2024-04-18 10:39 | disposition home or self-care (01) ==
LOC: HO.WFDLDS 10:38
PROVIDERS: Visit Provider Nurse Practitioner Family
DX: E87.1 Hypo-osmolality and hyponatremia (principal); E87.5 Hyperkalemia; E11.22 Type 2 diabetes mellitus with diabetic chronic kidney disease; N18.30 Chronic kidney disease, stage 3 unspecified
CPT/HCPCS: 36415; 80048

== ENCOUNTER 2024-04-23 08:53 | Outpatient (REF) | payer OTHER, SELFPAY ==
[2024-04-23 09:11] LABS: MANUAL DIFF FLAG NO
[2024-04-23 10:04] LABS: Basophils Absolute Auto 0.1 X10*3/uL (0.0-0.2); Basophils Percent Auto 0.6 % (0-2); Eosinophils Absolute Auto 0.4 X10*3/uL (0.0-0.4); Eosinophils Percent Auto 3.3 % (0-4); Hematocrit 33.8 % (42.0-52.0); Hemoglobin 11.5 g/dl (14.0-18.0); Imm Gran Abs Auto 0.04 X10*3/uL (0.00-0.03); Imm Gran Pct Auto 0.4 % (0.0-0.4); Lymphocytes Absolute Auto 2.5 X10*3/uL (1.2-4.9); Lymphocytes Percent Auto 22.2 % (20-40); Mean Corpuscular Hemoglobin 30.6 pg (27.0-33.0); Mean Corpuscular Volume 89.9 fL (80.0-98.0); Mean Platelet Volume 12.3 fL (9.4-12.4); Monocytes Absolute Auto 0.8 X10*3/uL (0.1-1.2); Monocytes Percent Auto 6.6 % (2-11); Neutrophils Absolute Auto 7.6 x10*3/uL (2.0-8.3); Neutrophils Percent Auto 66.9 % (45-73); Platelet Count 224 X10*3/uL (160-400); Red Blood Count 3.76 X10*6/uL (4.60-5.80); Red Cell Distribution Width 12.3 % (11.0-16.0); White Blood Count 11.3 X10*3/uL (4.8-10.8)
[2024-04-23 11:14] LABS: Potassium 4.4 mmol/L (3.3-5.1)
[2024-04-23 11:37] LABS: Alanine Aminotransferase 18 U/L (0-40); Alkaline Phosphatase 107 U/L (39-117); Anion Gap 15 (12-20); Aspartate Amino Transferase 22 U/L (5-37); Bilirubin Total 0.5 mg/dL (0.0-1.0); Blood Urea Nitrogen 54 mg/dL (9-16); Calcium 9.1 mg/dL (8.4-10.2); Carbon Dioxide 23 mmol/L (22-29); Chloride 104 mmol/L (96-108); Estimated Glomerular Filt Rate 27; Glucose Random 148 mg/dL (60-115); Potassium 4.4 mmol/L (3.3-5.1); Sodium 138 mmol/L (135-145); Total Protein 7.9 g/dL (6.5-8.0)
[2024-04-23 11:42] LABS: Ferritin 131 ng/mL (20-250)
== END 2024-04-23 08:54 | disposition home or self-care (01) ==
LOC: HO.LAB 08:53
PROVIDERS: Internal Medicine Medical Oncology; PCP Nurse Practitioner Family; Visit Provider Nurse Practitioner Family
DX: D64.9 Anemia, unspecified (principal); E87.5 Hyperkalemia
CPT/HCPCS: 36415; 80053; 82728; 84132; 85025

== ENCOUNTER 2024-04-30 08:31 | Outpatient (REF) | payer OTHER, SELFPAY ==
[2024-04-30 09:42] LABS: Anion Gap 12 (12-20); Blood Urea Nitrogen 48 mg/dL (9-16); Carbon Dioxide 25 mmol/L (22-29); Chloride 108 mmol/L (96-108); Estimated Glomerular Filt Rate 29; Potassium 4.6 mmol/L (3.3-5.1); Sodium 140 mmol/L (135-145)
== END 2024-04-30 08:32 | disposition home or self-care (01) ==
LOC: HO.LAB 08:31
PROVIDERS: PCP Nurse Practitioner Family; Visit Provider Internal Medicine Nephrology
DX: E11.22 Type 2 diabetes mellitus with diabetic chronic kidney disease (principal); E11.21 Type 2 diabetes mellitus with diabetic nephropathy; N18.30 Chronic kidney disease, stage 3 unspecified
CPT/HCPCS: 36415; 80051; 82565; 84520

== ENCOUNTER 2024-05-02 10:57 | Outpatient (AMB) | payer OTHER, SELFPAY ==
--- NOTE | 2024-05-02 11:03 | HO.NEPHOV ---
Vital Signs 05/02/24 11:05 Height 5 ft 8 in Weight 242 lb 2 oz BMI 36.8 BP 120/70 Blood Pressure Location Rt brachial Position Sitting Pulse 61 Pulse Source Pulse Oximeter Pulse Oximetry (%) 100 Oxygen Delivery Method Room Air Intake Visit Reasons: 3mon follow up/ Conf Public Speaking Teacher Required: No Accompanied by: Self / Same As Patient Allergies No Known Allergies Allergy (Verified 05/02/24 11:05) HPI Comments Details: River was seen in follow up of his chronic kidney disease. He is diabetic and hypertensive with proteinuria. He recently had diastolic heart failure. His serum potassium has been recently high normal. He had been on angiotensin receptor leslie. His BMI has been high. He has been having an open wound on the toe which had been healing. He thinks he may have osteomyelitis and is going to see wound care. He denies any active chest pain, shortness of breath, paroxysmal nocturnal dyspnea, orthopnea, joint swellings, epistaxis, sinusitis, skin rashes, history of renal artery stenosis, history of carotid stenosis, large, vomiting, diarrhea, hematuria. He has been taking Jardiance [facility] Medical History (Updated 05/02/24 @ 11:39 by Jovani Hernandez MD) CKD (chronic kidney disease) stage 3, GFR 30-59 ml/min Sleep apnea Chronic heart failure with preserved ejection fraction (HFpEF) Elevated cholesterol Iron deficiency anemia Chronic renal insufficiency Diabetic nephropathy Acute heart failure with preserved ejection fraction (HFpEF) Necrotizing subcutaneous infection Hypertension Type 2 diabetes Surgical History History of pyloromyotomy Status post incision and drainage [place] teeth removed Family History Mother Diabetes Maternal Uncle Diabetes Sister Multiple sclerosis Social History Household Members: Spouse Both parents involved: No Caregiver staying overnight: No Housing: House Are you a primary career services manager to a significant other at home: No Do you presently have visiting nurse or other home services: No 75 years or older and lives alone: No Alcohol intake: current Alcohol intake frequency: a few times a week Alcohol type: beer Patient Tobacco Use Status: Former Tobacco user Tobacco use type: Cigarette Years Smoked: 4 e-Cigarette/Vaping Use: Never Used Second Hand Smoke Exposure: Yes Substance Use Type: Marijuana Advance Directives Date on File: 05/07/23 service: No Current occupational status: employed Current occupation: [employer] Cognitive needs: No Hearing needs: No Vision needs: No Review of Systems Const All systems reviewed & are unremarkable except as noted in HPI and below Physical Exam Vital Signs: Last Vital Signs Pulse 61 05/02/24 11:05 BP 150/70 H 05/02/24 11:05 Pulse Ox 100 05/02/24 11:05 Oxygen Delivery Method Room Air 05/02/24 11:05 BMI result Body Mass Index 36.8 Const General: comfortable and no acute distress Orientation/consciousness: patient oriented x3 HEENT Head: Yes normocephalic Mouth: Normal oral and palatal mucosa present Eyes EOM: EOMs intact bilaterally Neck Neck: Yes supple Resp Auscultation: clear to auscultation bilaterally Cardio Jugular venous distension: no JVD Rate: regular rate GI Palpation (GI): Soft to palpation Auscultation: normal bowel sounds General: Yes no CVA tenderness Back/Spine/Pelvis Back: no CVA tenderness Skin General skin exam: no rashes or lesions noted Neuro General: patient oriented x3 and moves all extremities Extrem General: Yes no pedal edema Results Reviewed Nephrology Results: Hgb 11.0 g/dl (14.0-18.0) L 04/28/24 WBC 12.1 X10*3/uL (4.8-10.8) H 04/28/24 Plt Count 188 X10*3/uL (160-400) 04/28/24 Sodium 140 mmol/L (135-145) 04/30/24 Potassium 4.6 mmol/L (3.3-5.1) 04/30/24 Chloride 108 mmol/L (96-108) 04/30/24 Carbon Dioxide 25 mmol/L (22-29) 04/30/24 BUN 48 mg/dL (9-16) H 04/30/24 Creatinine 2.41 mg/dL (0.5-1.4) H 04/30/24 Calcium 9.2 mg/dL (8.4-10.2) 04/28/24 Assessment & Plan Assessment & Plan (1) CKD stage 3 due to type 2 diabetes mellitus: Code(s): E11.22 - Type 2 diabetes mellitus with diabetic chronic kidney disease; N18.30 - Chronic kidney disease, stage 3 unspecified Category: Medical (2) Diabetic nephropathy: Code(s): E11.21 - Type 2 diabetes mellitus with diabetic nephropathy Category: Medical Qualifiers: Diabetes mellitus type: type 2 Qualified Code(s): E11.21 - Type 2 diabetes mellitus with diabetic nephropathy (3) Hypertension: Code(s): I10 - Essential (primary) hypertension Category: Medical Qualifiers: Hypertension type: primary hypertension Qualified Code(s): I10 - Essential (primary) hypertension (4) Anemia in chronic kidney disease (CKD): Code(s): N18.9 - Chronic kidney disease, unspecified; D63.1 - Anemia in chronic kidney disease Category: Medical Qualifiers: Chronic kidney disease stage: stage 3 (moderate) Chronic kidney disease stage 3 subtype: stage 3a (GFR 45-59) Qualified Code(s): N18.31 - Chronic kidney disease, stage 3a; D63.1 - Anemia in chronic kidney disease Ina Holman has 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 He has obesity. His diabetes mellitus is better. He has proteinuria. He has underlying diabetic nephropathy. He has H/O decompensated diastolic heart failure. His urine output is good. C/W valsartan 160 mg bid. He should continue K lowering medication twice a week. He should continue Jardiance 25 mg daily. He is on fenofibrate. His renal USS was unremarkable. He did not have a renal biopsy yet. He was counseled to maintain good blood pressure and good blood sugar control. All these have been discussed in detail. Further management is pending evolving data. All questions answered. Follow-up appointment given Coding Level of Care Code Est Pt Level 4 (96761) Diagnoses CKD stage 3 due to type 2 diabetes mellitus E11.22; N18.30 Diabetic nephropathy associated with type 2 diabetes mellitus E11.21 Diabetes mellitus type: type 2 Primary hypertension I10 Hypertension type: primary hypertension Anemia in stage 3a chronic kidney disease N18.31; D63.1 Chronic kidney disease stage: stage 3 (moderate) Chronic kidney disease stage 3 subtype: stage 3a (GFR 45-59)
[2024-05-02 11:05] VITALS: BP 120/70; PULSE 61; O2SAT 100; BMI 36.8
--- OUTSIDE RECORDS SUMMARY | 2024-05-02 12:30 | XMS_ITS ---
Author Organization [facility] Address [address] [place] [address] Care Team Providers Care Chicken Sexer Name Role Phone Rc Sy.Quique Bhatt Primary Care Provider Higinio Mcmahon Unavailable [phone] Velia Siddiqui Unavailable Unavailable REASON FOR VISIT screening PROBLEMS Problem Type ICD Code Onset Dates Problem Status W/U Status Risk SNOMED Code Notes Problem Diverticulosis of large intestine without perforation or abscess without bleeding (K57.30) Active confirmed Diverticul ar disease of colon (010966574) Encounters Encounter Location Date Provider Diagnosis [facility] [place] [address] [place] [id number] 01/25/2024 Higinio Zhang Colon cancer scree shanthi [...]
--- OUTSIDE RECORDS SUMMARY | 2024-05-02 12:30 | XMS_ITS ---
Author Organization [facility] Address [address] [place] [address] Care Team Providers Care Broadcast Transmitter Operator Name Role Phone Quique Tatum N.P. Primary Care Provider Higinio Mcmahon Unavailable [phone] Velia Siddiqui Unavailable Unavailable ALLERGIES No Known [...] 30 day(s) Active Vitamin D3 50 MCG (1999 UT) Oral for 90 Active [place] 3 Active Zinc Active Multivitamin Active SOCIAL [...] screening (Z12.11) Active confirmed Colon cancer screening (654260231) Problem Encounter for other preprocedural examination (Z01.818) Active confirmed Pre-procedure evaluation check (840372907) VITAL SIGNS BMI 36.49 kg/m2 10/01/2023 Blood pressure systolic 00 mm Hg 10/01/19 24 Blood pressure diastolic 00 mm Hg 024 Height 5 ft 8 in in 10/01/2023 Weight 240 lbs 10/01/2023 Encounters Encounter Location Date Provider Diagnosis [facility] [address] [place] [address] 10/01/2023 Higinio Zhang Colon cancer screeni ng [...]
--- OUTSIDE RECORDS SUMMARY | 2024-05-02 12:30 | XMS_ITS | Patient Health Record ---
Author Organization [facility] Address [address] [place] [address] Care Team Providers Care Accountant Manager Name Role Phone Quique Tatum N.P. Primary Care Provider Higinio Mcmahon Unavailable [phone] Velia Siddiqui Unavailable Unavailable ALLERGIES No Known Allergies RESULTS Component Value Reference Range Notes Pathology (Not yet reviewed by provider) Interpretation: Performing Lab:[facility], [address] [place] [phone] Notes/Report: Glucose, Whole Blood Reviewed date:01/25/2024 06:13:15 PM Interpretation: Performing Lab:[facility], [address] [place] [phone] Notes/Report: Glucose, Whole Blood 162 60-115 mg/dL METER # : [id number] REASON FOR REFERRAL No Information MEDICATIONS Medication [...] Calcium 40 MG Oral for 90 Active [place] 3 Active Basaglar KwikPen 100 UNIT/ML Subcutaneous [...] (Z12.11) Active confirmed Colon can cer screening (365577564) Problem Encounter for other preprocedural examination (Z01.818) Active confirmed Pre-procedure evaluation check (633238273) Problem Diverticulosis of large intestine without perforation or abscess without bleeding (K57.30) Active confirmed Diverticul ar disease of colon (854765676) VITAL SIGNS Blood pressure diastolic 00 mm Hg 10/01/2023 Height 5 ft 8 in in 10/01/2023 Blood pressure systolic 00 mm Hg 10/01/2023 Weight 240 lbs 10/01/2023 BMI 36.49 kg/m2 10/01/2023 Encounters Encounter Location Date Provider Diagnosis [facility] Outpatient [address] [place], [place] [id number] 01/25/2024 Higinio Zhang Colon cancer screeni ng Z12.11 ; Colon polyp K63.5 ; Diverticulosis of large intestine without perforation or abscess without bleeding K57.30 and Other hemorrhoids K64.8 [facility] [address] [place] [address] 10/01/2023 Higinio Zhang Colon cancer screeni ng [...] Start Date Coverage End Date [address] [place] [address] [phone] [id number] JORGE FONSECA Self - patient is the insured MEDICAL (GENERAL) HISTORY Medical History History ICD Code Sleep apnea - CPAP machine 09/2023 DM Hypertension CKD stage 3 Anemia Hypercholesterolemia Denies MD,CVA,Lung disease Surgical History Surgery Date(Month/Year) [place] teeth Perirectal abscess -Dr. Valverde--in [facility] for about a week 02/2022
== END 2024-05-02 11:42 | disposition home or self-care (01) ==
PROVIDERS: PCP Nurse Practitioner Family; Visit Provider Internal Medicine Nephrology
DX: I12.9 Hypertensive chronic kidney disease with stage 1 through stage 4 chronic kidney disease, or unspecified chronic kidney disease (principal); E11.22 Type 2 diabetes mellitus with diabetic chronic kidney disease; N18.31 Chronic kidney disease, stage 3a; D63.1 Anemia in chronic kidney disease
CPT/HCPCS: 99214

== ENCOUNTER 2024-06-20 09:52 | Outpatient (AMB) | payer OTHER, SELFPAY ==
--- NOTE | 2024-06-20 09:59 | A.OFFPC_ITS ---
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 blood-glucose meter (FreeStyle Lite Meter kit) As Directed carvedilol 12.5 mg PO BID 90 days cholecalciferol (vitamin D3) 50 mcg PO DAILY clonidine HCl 0.1 mg PO BID 90 days comp.stocking,knee,long,medium As directed empagliflozin 25 mg PO DAILY 3 months fenofibrate 54 mg PO DAILY ferrous sulfate 325 mg PO TID fluticasone propionate 50 mcg/actuation (Flonase Allergy Relief) 2 sprays intranasal BID PRN furosemide 40 mg PO BID 90 days insulin glargine (Basaglar KwikPen U-100 Insulin) 15 units (0.15 mL) subcut QPM lancets (FreeStyle Lancets) TEST FOUR TIMES A DAY OR DIRECTED. metformin 1,000 mg PO BID miscellaneous medical supply 1 large blood pressure cuff multivitamin 1 tab PO DAILY omega-3 fatty acids-fish oil 684-1,200 mg 1 cap PO DAILY pen needle, diabetic (BD Toshia 2nd Gen Pen Needle) USE FOUR TIMES A DAY OR DIRECTED. sodium polystyrene sulfonate 30 grams orally once a week; valsartan 160 mg PO BID 90 days zinc acetate 50 mg (2 x 25 mg (zinc)) PO BID 3 months Tobacco use date assessed: 06/20/24 Dental Screening Dental Screen Date: 06/20/24 Did you have a dental visit in the last 12 months?: No Did you have a dental problem in the last 6 months where you did not have access to dental care?: No Was dental information given to patient?: Patient has dentist HPI HPI Comments History of Present Illness Details 54-year-old male presents for diabetes a nd hypertension follow-up. He admits to taking his medications as prescribed without adverse reactions. He took his a.m. medications about 2 hours ago. He has been making healthy dietary choices, including low-sodium and low carbs. He walks routinely. He offers no complaints and denies acute symptoms at this time. [facility] Medical History (Updated 05/02/24 @ 11:39 by Jovani Hernandez MD) CKD (chronic kidney disease) stage 3, GFR 30-59 ml/min Sleep apnea Chronic heart failure with preserved ejection fraction (HFpEF) Elevated cholesterol Iron deficiency anemia Chronic renal insufficiency Diabetic nephropathy Acute heart failure with preserved ejection fraction (HFpEF) Necrotizing subcutaneous infection Hypertension Type 2 diabetes Surgical History History of pyloromyotomy Status post incision and drainage [place] teeth removed Family History Mother Diabetes Maternal Uncle Diabetes Sister Multiple sclerosis Social History Household Members: Spouse Both parents involved: No Caregiver staying overnight: No Housing: House Are you a primary adult care provider to a significant other at home: No Do you presently have visiting nurse or other home services: No 75 years or older and lives alone: No Alcohol intake: current Alcohol intake frequency: a few times a week Alcohol type: beer Patient Tobacco Use Status: Former Tobacco user Tobacco use type: Cigarette Years Smoked: 4 e-Cigarette/Vaping Use: Never Used Second Hand Smoke Exposure: Yes Substance Use Type: Marijuana Advance Directives Date on File: 05/07/23 service: No Current occupational status: employed Current occupation: [employer] Cognitive needs: No Hearing needs: No Vision needs: No Questionnaire PHQ-9 Over the last 2 weeks, how often have you been bothered by any of the following problems? 1. Little interest or pleasure in doing things: more than half the days 3. Trouble falling or staying asleep, or sleeping too much: more than half the days 4. Feeling tired or having little energy: more than half the days 5. Poor appetite or overeating: not at all 6. Feeling bad about yourself - or that you are a failure or have let yourself or your family down: more than half the days 7. Trouble concentrating on things, such as reading the newspaper or watching television: more than half the days 8. Moving or speaking so slowly that other people could have noticed. Or the opposite - being so fidgety or restless that you have been moving around a lot more than usual: more than half the days Source: Developed by Drs. Higinio Rodriguez, Olivia Rayo, Edilberto Freeman and colleagues, with an educational smitha from [employer]. Thrive Questionnaire Date Thrive assessed: 02/29/24 I am a: Patient What is your living situation today?: I have a steady place to live Within the past 12 months, did the food you bought not last and you didn't have the money to get more?: Sometimes True Within the past 12 months, did you worry whether your food would run out before you got money to buy more?: Sometimes True Do you have trouble paying for medicines?: Yes Do you have trouble getting transportation to medical appointments?: No Do you have trouble paying your heating and electricity bill?: Yes Do you have trouble taking care of your child, family member or friend?: No Do you have trouble with day-to-day activities such as bathing, preparing meals, shopping, managing finances, etc.?: No Are you currently unemployed and looking for a job?: No Are you interested in more education?: I choose not to answer this question Please select the resources that you would like help with: Housing/Senior Care, Food, Paying for medicine and Utilities Currently or been in a relationship where the following occur: No concerns reported THRIVE Score: 3 AUDIT C Alcohol Use Questionnaire (AUDIT-C) 1. How often do you have a drink containing alcohol?: Monthly or less 2. How many drinks containing alcohol do you have on a typical day when you are drinking?: 3 or 4 3. How often do you have six or more drinks on one occasion?: Less than monthly Total Score: 3 UTE-7 AMB Questionnaire UTE-7 Date UTE - 7 assessed: 09/01/23 Feeling nervous, anxious, or on edge: 1 = Several days Not being able to stop or control worryin = Several days Worrying too much about different things: 1 = Several days Trouble relaxin = Several days Being so restless that it is hard to sit still: 1 = Several days Becoming easily annoyed or irritable: 1 = Several days Feeling afraid as if something awful might happen: 1 = Several days Total UTE-7 score (0-4 normal; 5-9 mild; 10-14 moderate; 15-21 severe): 7 Source: Developed by Drs. Higinio Rodriguez, Olivia Rayo, Edilberto Freeman and colleagues, with an educational smitha from [employer]. Review of Systems Const Details: Const Denies chills, Denies fatigue, Denies fever(s), Denies headache(s) and Denies weakness ENT Denies dizziness and Denies headache(s) Card Denies chest pain, Denies lightheadedness, Denies dyspnea and Denies other (Palpitations) Resp Denies cough, Denies dyspnea, Denies wheezing and Denies other ( shortness of breath) GI Denies abdominal pain, Denies melena, Denies hematochezia, Denies change in bowel habits, Denies dyspepsia and Denies nausea Denies hematuria and Denies dysuria Musc Denies abnormal gait, Denies myalgias, Denies arthralgias, Denies numbness and Denies tingling Skin/Breast Denies rash, Denies unusual bruising and Denies wounds Neuro Denies abnormal gait, Denies dizziness, Denies headache(s), Denies memory loss, Denies numbness, Denies Sensory deficit (Neuro), Denies tingling and Denies weakness Psych Denies anxiety, Denies depression, Denies memory loss Endo Denies cold intolerance, Denies fatigue, Denies heat intolerance, Denies polydipsia and Denies polyuria Aller/Immun Denies wheezing Physical exam (Primary Care) Vital Signs: Last Vital Signs Temp 97.9 F 06/20/24 10:01 Pulse 70 06/20/24 10:01 Resp 16 06/20/24 10:01 Pulse Ox 97 06/20/24 10:01 Oxygen Delivery Method Room Air 06/20/24 10:01 BMI result Body Mass Index 37.2 Tobacco/Smoking Status: Tobacco use Status Tobacco use date assessed 04/18/24 04/18/24 10:00 Patient Tobacco Use Status Former Tobacco user 04/18/24 09:56 Tobacco use type Cigarette 04/18/24 09:56 e-Cigarette/Vaping Use Never Used 04/18/24 09:56 Thrive Assessment: Date of Thrive Assessment Date Thrive assessed 06/13/24 06/13/24 11:44 Currently or been in a relationship where the following occur: No concerns reported Const Other: General: no acute distress and well developed Nutritional Appearance: well nourished Orientation/consciousness: patient oriented x3 HENMT Head: Yes normocephalic and Yes atraumatic Eyes General: appearance normal, both eyes and all related structures Pupils: Equal, round and reactive pupils present EOM: EOMs intact bilaterally Resp Effort & Inspection: normal respiratory effort Auscultation: clear to auscultation bilaterally Cardio Rate: regular rate Rhythm: regular rhythm Heart sounds: S1 normal heart sound present, S2 normal heart sound present, no gallops, no murmurs and no rubs GI Palpation (GI): No Abdominal aortic bruit present, Soft to palpation, nontender, No hepatosplenomegaly present and No Rebound tenderness present Auscultation: normal bowel sounds General: Yes no CVA tenderness Back/Spine/Pelvis Back: no CVA tenderness Cervical Spine: cervical ROM normal and No Cervical spine tenderness Thoracic/Lumbar Spine: thoraco-lumbar ROM normal, No pain with thoraco-lumbar ROM, No thoracic spinal tenderness and No lumbar spinal tenderness Extrem General: Yes normal to inspection, No edema and No calf tenderness Skin General: warm and dry. Normal skin color. Normal skin turgor Neuro General: patient oriented x3, gait normal and no focal neuro deficit Cranial nerves: Yes Equal, round and reactive pupils present Cognition (Neuro): normal cognition Gait exam (Neuro): Normal gait present Sensory Exam: No Sensory deficit (Neuro) Psych Appearance: grossly normal Affect: normal affect Attitude: cooperative Thought process: Normal thought process present Results AMB Hemoglobin A1c AMB Hemoglobin A1c 6.5 % Last Edit by Latasha Blanco on 06/20/24 10:17 Coding Level of Care Code Est Pt Level 4 (74590) Diagnoses Primary hypertension I10 Hypertension type: primary hypertension Type 2 diabetes mellitus without complication, with long-term current use of insulin E11.9; Z79.4 Diabetes mellitus terminal superintendent insulin use: with terminal superintendent use Diabetes mellitus complication status: without complication Hyponatremia E87.1 High potassium E87.5 Assessment & Plan Assessment & Plan (1) Hypertension: Code(s): I10 - Essential (primary) hypertension Category: Medical Qualifiers: Hypertension type: primary hypertension Qualified Code(s): I10 - Essential (primary) hypertension Plan: Resting blood pressure is 156/70, above goal of less than 130/80. Continue current treatment regimen. Will increase clonidine to 0.2 mg twice daily; advised to take as prescribed. Continue to take losartan, furosemide, and carvedilol as prescribed. Follow-up in 1 month. Return sooner or go to the ED with hypertensive symptoms such as severe headaches or visual disturbances, or symptoms of hypotension such as dizziness/lightheadedness. Verbalized understanding and agreed with the plan. (2) Type 2 diabetes: Code(s): E11.9 - Type 2 diabetes mellitus without complications Category: Medical Qualifiers: Diabetes mellitus terminal superintendent insulin use: with terminal superintendent use Diabetes mellitus complication status: without complication Qualified Code(s): E11.9 - Type 2 diabetes mellitus without complications; Z79.4 - MCFP (current) use of insulin Plan: A1c today is 6.5%, within goal of less than 7.0%. Previous A1c was 6.4%. Continue current treatment regimen. Will recheck A1c in 3 months. Verbalized understanding and agreed with the plan. (3) Hyponatremia: Code(s): E87.1 - Hypo-osmolality and hyponatremia Category: Medical Plan: Recent sodium levels have been normal. (4) High potassium: Code(s): E87.5 - Hyperkalemia Category: Medical Plan: Recent potassium levels have been normal. Orders: Orders AMB Hemoglobin A1c Today Z13.9 - Encounter for screening, unspecified Medications: New clonidine HCl 0.2 mg PO BID 90 days 180 tabs 1RF Discontinued clonidine HCl Discontinued Reason: Doctor's Order 0.1 mg PO BID 90 days 180 tabs 0RF
[2024-06-20 10:01] VITALS: BP 176/81; PULSE 70; RESP 16; TEMP 36.6; O2SAT 97; BMI 37.2
[2024-06-20 10:16] VITALS: BP 156/70; PULSE 64
--- OUTSIDE RECORDS SUMMARY | 2024-06-20 10:53 | XMS_ITS ---
Author Organization [facility] Address [address] [place] [id number] Care Team Providers Care Reprographics Associate Name Role Phone Quique Tatum N.P. Primary Care Provider Higinio Mcmahon Unavailable [phone] Velia Siddiqui Unavailable Unavailable ALLERGIES No Known [...] MCG (1999 UT) Oral for 90 Active Welcome 3 Active Zinc Active Multivitamin Active SOCIAL [...] screening (Z12.11) Active confirmed Colon cancer screening (445383650) Problem Encounter for other preprocedural examination (Z01.818) Active confirmed Pre-procedure evaluation check (568201326) VITAL SIGNS Blood pressure systolic 00 mm Hg 10/01/19 24 Blood pressure diastolic 00 mm Hg 024 Height 5 ft 8 in in 10/01/2023 Weight 240 lbs 10/01/2023 BMI 36.49 kg/m2 10/01/2023 Encounters Encounter Location Date Provider Diagnosis [facility] [address] [place] [address] 10/01/2023 Higinio Zhang Colon cancer screeni ng [...]
== END 2024-06-20 10:30 | disposition home or self-care (01) ==
PROVIDERS: PCP Nurse Practitioner Family; Visit Provider Nurse Practitioner Family
DX: I10 Essential (primary) hypertension (principal); E11.9 Type 2 diabetes mellitus without complications; Z79.4 Long term (current) use of insulin; E87.1 Hypo-osmolality and hyponatremia; E87.5 Hyperkalemia; Z13.9 Encounter for screening, unspecified

== ENCOUNTER → 2024-06-20 09:52 | Outpatient (BNVA) | payer OTHER, SELFPAY | PROVIDERS: PCP Nurse Practitioner Family; Visit Provider Nurse Practitioner Family | DX: I10 Essential (primary) hypertension (principal); E11.9 Type 2 diabetes mellitus without complications; E87.1 Hypo-osmolality and hyponatremia; E87.5 Hyperkalemia; Z79.4 Long term (current) use of insulin; Z79.899 Other long term (current) drug therapy | CPT/HCPCS: 83036 ==

== ENCOUNTER 2024-06-25 09:53 | Outpatient (REF) | payer OTHER, SELFPAY ==
--- OUTSIDE RECORDS SUMMARY | 2024-06-25 09:56 | XMS_ITS ---
Author Organization [facility] Address [address] [place] [id number] Care Team Providers Care Cylindrical Mixer Name Role Phone Rc Sy.Quique Bhatt Primary Care Provider Higinio Mcmahon Unavailable [phone] Velia Siddiqui Unavailable Unavailable REASON FOR VISIT screening PROBLEMS Problem Type ICD Code Onset Dates Problem Status W/U Status Risk SNOMED Code Notes Problem Diverticulosis of large intestine without perforation or abscess without bleeding (K57.30) Active confirmed Diverticul ar disease of colon (647823043) Encounters Encounter Location Date Provider Diagnosis [facility] Out[facility] [address] [place] [id number] 01/25/2024 Higinio Zhang Colon cancer scree shanthi [...]
--- OUTSIDE RECORDS SUMMARY | 2024-06-25 09:56 | XMS_ITS | Patient Health Record ---
Author Organization [facility] Address [address] [place] [address] Care Team Providers Care Hop Trainer Name Role Phone Quique Tatum N.P. Primary Care Provider Higinio Mcmahon Unavailable [phone] Velia Siddiqui Unavailable Unavailable ALLERGIES No Known Allergies RESULTS Component Value Reference Range Notes Pathology (Not yet reviewed by provider) Interpretation: Performing Lab:[facility], [address] [place] [phone] Notes/Report: Glucose, Whole Blood Reviewed date:01/25/2024 06:13:15 PM Interpretation: Performing Lab:[facility], [address] [place] [id number] Notes/Report: Glucose, Whole Blood 162 60-115 mg/dL METER # : [id number] REASON FOR REFERRAL No Information MEDICATIONS Medication [...] Calcium 40 MG Oral for 90 Active Gardner 3 Active Basaglar KwikPen 100 UNIT/ML Subcutaneous [...] (Z12.11) Active confirmed Colon can cer screening (170332448) Problem Encounter for other preprocedural examination (Z01.818) Active confirmed Pre-procedure evaluation check (752789735) Problem Diverticulosis of large intestine without perforation or abscess without bleeding (K57.30) Active confirmed Diverticul ar disease of colon (004773096) VITAL SIGNS Blood pressure diastolic 00 mm Hg 10/01/2023 Height 5 ft 8 in in 10/01/2023 Blood pressure systolic 00 mm Hg 10/01/2023 Weight 240 lbs 10/01/2023 BMI 36.49 kg/m2 10/01/2023 Encounters Encounter Location Date Provider Diagnosis [facility] [address], [place] [phone] 01/25/2024 Higinio Zhang Colon cancer screeni ng Z12.11 ; Colon polyp K63.5 ; Diverticulosis of large intestine without perforation or abscess without bleeding K57.30 and Other hemorrhoids K64.8 [facility] [address] [place] [address] 10/01/2023 Higinio Zhang Colon cancer screeni ng [...] Start Date Coverage End Date [address] [place] [address] [phone] [id number] JORGE FONSECA Self - patient is the insured MEDICAL (GENERAL) HISTORY Medical History History ICD Code Sleep apnea - CPAP machine 09/2023 DM Hypertension CKD stage 3 Anemia Hypercholesterolemia Denies NC,CVA,Lung disease Surgical History Surgery Date(Month/Year) [place] teeth Perirectal abscess -Dr. Valverde--in [facility] for about a week 02/2022
[2024-06-25 12:03] LABS: Anion Gap 13 (12-20); Blood Urea Nitrogen 49 mg/dL (9-16); Carbon Dioxide 24 mmol/L (22-29); Chloride 103 mmol/L (96-108); Estimated Glomerular Filt Rate 28; Potassium 5.1 mmol/L (3.3-5.1); Sodium 135 mmol/L (135-145)
== END 2024-06-25 09:54 | disposition home or self-care (01) ==
LOC: HO.LAB 09:53
PROVIDERS: PCP Nurse Practitioner Family; Visit Provider Internal Medicine Nephrology
DX: E11.22 Type 2 diabetes mellitus with diabetic chronic kidney disease (principal); N18.30 Chronic kidney disease, stage 3 unspecified
CPT/HCPCS: 36415; 80051; 82565; 84520

== ENCOUNTER 2024-06-29 14:40 | Outpatient (AMB) | payer OTHER, SELFPAY ==
--- NOTE | 2024-06-29 14:52 | HO.NEPHOV ---
Vital Signs 06/29/24 14:54 Height 5 ft 8 in Weight 239 lb 4 oz BMI 36.4 BP 110/60 Blood Pressure Location Rt brachial Position Sitting Pulse 54 Pulse Source Pulse Oximeter Pulse Oximetry (%) 99 Oxygen Delivery Method Room Air Intake Visit Reasons: 2mon follow up w/labs-LVM Cleaning Staff Supervisor Required: No Accompanied by: Self / Same As Patient Allergies No Known Allergies Allergy (Verified 06/29/24 14:54) HPI Comments Details: River was seen in follow up of his chronic kidney disease. He is diabetic and hypertensive with proteinuria. He recently had diastolic heart failure. His serum potassium has been recently high normal. He had been on angiotensin receptor leslie. His BMI has been high. He has been having an open wound on the toe which had been healing. He thinks he may have osteomyelitis and is going to see wound care. He denies any active chest pain, shortness of breath, paroxysmal nocturnal dyspnea, orthopnea, joint swellings, epistaxis, sinusitis, skin rashes, history of renal artery stenosis, history of carotid stenosis, large, vomiting, diarrhea, hematuria. He has been taking Jardiance ON LICENSE OF [facility] Medical History (Updated 05/02/24 @ 11:39 by Jovani Hernandez MD) CKD (chronic kidney disease) stage 3, GFR 30-59 ml/min Sleep apnea Chronic heart failure with preserved ejection fraction (HFpEF) Elevated cholesterol Iron deficiency anemia Chronic renal insufficiency Diabetic nephropathy Acute heart failure with preserved ejection fraction (HFpEF) Necrotizing subcutaneous infection Hypertension Type 2 diabetes Surgical History History of pyloromyotomy Status post incision and drainage [place] teeth removed Family History Mother Diabetes Maternal Uncle Diabetes Sister Multiple sclerosis Social History Household Members: Spouse Both parents involved: No Caregiver staying overnight: No Housing: House Are you a primary animal caregiver to a significant other at home: No Do you presently have visiting nurse or other home services: No 75 years or older and lives alone: No Alcohol intake: current Alcohol intake frequency: a few times a week Alcohol type: beer Patient Tobacco Use Status: Former Tobacco user Tobacco use type: Cigarette Years Smoked: 4 e-Cigarette/Vaping Use: Never Used Second Hand Smoke Exposure: Yes Substance Use Type: Marijuana Advance Directives Date on File: 05/07/23 service: No Current occupational status: employed Current occupation: [employer] Cognitive needs: No Hearing needs: No Vision needs: No Review of Systems Const All systems reviewed & are unremarkable except as noted in HPI and below Physical Exam Vital Signs: Last Vital Signs Pulse 54 06/29/24 14:54 BP 154/60 H 06/29/24 14:54 Pulse Ox 99 06/29/24 14:54 Oxygen Delivery Method Room Air 06/29/24 14:54 BMI result Body Mass Index 36.4 Const General: comfortable and no acute distress Orientation/consciousness: patient oriented x3 HEENT Head: Yes normocephalic Mouth: Normal oral and palatal mucosa present Eyes EOM: EOMs intact bilaterally Neck Neck: Yes supple Resp Auscultation: clear to auscultation bilaterally Cardio Jugular venous distension: no JVD Rate: regular rate GI Palpation (GI): Soft to palpation Auscultation: normal bowel sounds General: Yes no CVA tenderness Back/Spine/Pelvis Back: no CVA tenderness Skin General skin exam: no rashes or lesions noted Neuro General: patient oriented x3 and moves all extremities Extrem General: Yes no pedal edema Results Reviewed Nephrology Results: Hgb 11.0 g/dl (14.0-18.0) L 04/28/24 WBC 12.1 X10*3/uL (4.8-10.8) H 04/28/24 Plt Count 188 X10*3/uL (160-400) 04/28/24 Sodium 135 mmol/L (135-145) 06/25/24 Potassium 5.1 mmol/L (3.3-5.1) 06/25/24 Chloride 103 mmol/L (96-108) 06/25/24 Carbon Dioxide 24 mmol/L (22-29) 06/25/24 BUN 49 mg/dL (9-16) H 06/25/24 Creatinine 2.48 mg/dL (0.5-1.4) H 06/25/24 Calcium 9.2 mg/dL (8.4-10.2) 04/28/24 Assessment & Plan Assessment & Plan (1) Anemia in chronic kidney disease (CKD): Code(s): N18.9 - Chronic kidney disease, unspecified; D63.1 - Anemia in chronic kidney disease Category: Medical Qualifiers: Chronic kidney disease stage: stage 3 (moderate) Chronic kidney disease stage 3 subtype: stage 3a (GFR 45-59) Qualified Code(s): N18.31 - Chronic kidney disease, stage 3a; D63.1 - Anemia in chronic kidney disease (2) Diabetic nephropathy: Code(s): E11.21 - Type 2 diabetes mellitus with diabetic nephropathy Category: Medical Qualifiers: Diabetes mellitus type: type 2 Qualified Code(s): E11.21 - Type 2 diabetes mellitus with diabetic nephropathy (3) CKD stage 3 due to type 2 diabetes mellitus: Code(s): E11.22 - Type 2 diabetes mellitus with diabetic chronic kidney disease; N18.30 - Chronic kidney disease, stage 3 unspecified Category: Medical (4) Hypertension: Code(s): I10 - Essential (primary) hypertension Category: Medical Qualifiers: Hypertension type: primary hypertension Qualified Code(s): I10 - Essential (primary) hypertension Plan River has 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 He has obesity. His diabetes mellitus is better. He has proteinuria. He has underlying diabetic nephropathy. He has H/O decompensated diastolic heart failure. His urine output is good. C/W valsartan 160 mg bid. He should continue K lowering medication twice a week. He should continue Jardiance 25 mg daily. He is on fenofibrate. His renal USS was unremarkable. He did not have a renal biopsy yet. He was counseled to maintain good blood pressure and good blood sugar control. All these have been discussed in detail. Further management is pending evolving data. All questions answered. Follow-up appointment given Orders: Orders Creatinine 3 Months E11.21 - Type 2 diabetes mellitus with diabetic nephropathy, E11.22 - Type 2 diabetes mellitus with diabetic chronic kidney disease, N18.30 - Chronic kidney disease, stage 3 unspecified Blood Urea Nitrogen 3 Months E11.21 - Type 2 diabetes mellitus with diabetic nephropathy, E11.22 - Type 2 diabetes mellitus with diabetic chronic kidney disease, N18.30 - Chronic kidney disease, stage 3 unspecified Electrolytes 3 Months E11.21 - Type 2 diabetes mellitus with diabetic nephropathy, E11.22 - Type 2 diabetes mellitus with diabetic chronic kidney disease, N18.30 - Chronic kidney disease, stage 3 unspecified Protein Creatinine Ratio, Ur 3 Months E11.21 - Type 2 diabetes mellitus with diabetic nephropathy, E11.22 - Type 2 diabetes mellitus with diabetic chronic kidney disease, N18.30 - Chronic kidney disease, stage 3 unspecified Coding Level of Care Code Est Pt Level 4 (66746) Diagnoses Anemia in stage 3a chronic kidney disease N18.31; D63.1 Chronic kidney disease stage: stage 3 (moderate) Chronic kidney disease stage 3 subtype: stage 3a (GFR 45-59) Diabetic nephropathy associated with type 2 diabetes mellitus E11.21 Diabetes mellitus type: type 2 CKD stage 3 due to type 2 diabetes mellitus E11.22; N18.30 Primary hypertension I10 Hypertension type: primary hypertension
[2024-06-29 14:54] VITALS: BP 110/60; PULSE 54; O2SAT 99; BMI 36.4
--- OUTSIDE RECORDS SUMMARY | 2024-06-29 17:42 | XMS_ITS ---
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 Primary Care Provider Higinio Mcmahon Unavailable [phone] Velia Siddiqui Unavailable Unavailable Allergies No Known Allergies REASON FOR VISIT Patient presents today for a discuss colonoscopy Medications Medication SIG (Take, Route, Frequency, Duration) Notes [...] MCG (1999 UT) Oral for 90 Active [place] 3 Active Zinc Active Multivitamin Active Social History Tobacco Use: Social History Observation Description Date Details (start date - stop date) Never Smoker NA - NA Tobacco Use/Smoking Question Answer Notes Patient is [...] drinks (2 points) Points 4 Interpretation Positive Section Notes: Smokes marijuana; occ alcoho l on the weekends Problems Problem Type SNOMED Code ICD Code Onset Dates Problem Status W/U Status Risk Notes Problem Colon cancer screening (124370491) Colon cancer screening (Z12.11) Active confirmed Problem Pre-procedure evaluation check (072083124) Encounter for other preprocedural examination (Z01.818) Active confirmed Vital Signs Blood pressure systolic 00 mm Hg 10/01/19 24 Blood pressure diastolic 00 mm Hg 024 Height 5 ft 8 in in 10/01/2023 Weight 240 lbs 10/01/2023 BMI 36.49 kg/m2 10/01/2023 Encounters Encounter Location Date Provider Diagnosis [facility] [address] [place] [address] 10/01/2023 Higinio Zhang Colon cancer screeni ng Z12.11 and Encounter for other preprocedural examination Z01.818 Assessments Encounter Date Diagnosis (ICD Code) Assessment Notes Treatment Notes Treatment Clinical Notes Section Notes 10/01/2023 Colon cancer screening (ICD-10 - Z12.11) DO NOT TAKE THE EMPAGLIFLOZIN( JARDIANCE) FOR THREE DAYS BEFORE THE COLONOSCOPY DO NOT TAKE THE METFORMIN THE NIGHT BEFORE NOR ON THE DAY OF THE COLONOSCOPY TAKE ONLY 1/2 YOUR INSULIN THE AFTERNOON BEFORE THE COLONOSCOPY DO NOT TAKE THE FUROSEMIDE ON THE DAY OF THE COLONOSCOPY STOP FERROUS SULFATE AND FISH OIL FOR 1 WEEK BEFORE THE COLONOSCOPY Overall, River appears well. Given his age and good clinical appearance, I did recommend a colonoscopy for screening purposes. We did review the rationale for that in regard to colon cancer prevention. Full consent is obtained for this, including risks of bleeding and perforation. The procedure will be done with monitored anesthesia care. He was given the below instructions regarding adjustment of some of his medications prior to the procedure. River was comfortable with this plan. Thank you again for allowing me to participate in River's care. I shall continue to keep you advised of his progress. 10/01/2023 Encounter for other preprocedural examination (ICD-10 - Z01.818) Overall, River appears well. Given his age and good clinical appearance, I did recommend a colonoscopy for screening purposes. We did review the rationale for that in regard to colon cancer prevention. Full consent is obtained for this, including risks of bleeding and perforation. The procedure will be done with monitored anesthesia care. He was given the below instructions regarding adjustment of some of his medications prior to the procedure. River was comfortable with this plan. Thank you again for allowing me to participate in River's care. I shall continue to keep you advised of his progress. Plan Of Treatment Treatment Notes Assessment Notes Colon cancer screening [...] Follow Up: prn, Reason: Progress Notes * RIVER FONSECADOB:[birth year] (53 yo M)Acc No.[id number]:10/01/2023 Progress Notes Patient:?RIVER FONSECA Provider:?Higinio Zhang MD :1970???Age:53 Y???Sex:Male Selvin e:10/01/2023 Address:[address] [place], [place] [id number] Pcp:Quique Tatum N.P. Subjective: * Chief Complaints: * ???Patient presents today fo r a discuss colonoscopy * HPI: ???incontinence:? I saw River in the office today for evaluation of colorectal cancer screening. ?As you know, River is a 53-year-old male who presently feels well. He enjoys a good appetite, without any significant heartburn or dysphagia. His bowel movements have been regular and without any signs of bleeding. He denies abdominal pain, jaundice, nor any unintentional weight loss. He denies any known family history of colon cancer. He has never had a colonoscopy. * ROS:?General/Constitutional:?Change in appetite?denies.?Chills?denies.?Fatigue?denies.?Ophthalmologic:?Comments?all negative.?ENT:?Comments?all negative.?Respiratory:?hemoptysis?denies.?Cough?denies.?Cardiovascular:?Chest pain?denies.?Orthopnea?denies.?Gastrointestinal:?Comments?See HPI for details.?Genitourinary:?Hematuria?denies.?Dysuria?denies.?Musculoskeletal:?Painful joints?denies.?Weakness?denies.?Skin:?Itching?denies.?Rash?denies.?Neurologic:?Headache?denies.?Seizures?denies.?Psychiatric:?Comments?all negative.? * Medical History:? * Surgical History:?Augusto susan th Perirectal abscess -Dr. Valverde--in hospital for about a week 02/2022 * Hospitalization/Major Diagno stic Procedure:?No Hospitalization History. * Family History:?Father: unkn own.?Mother: alive, diagnosed with Diabetes.? No known hx of colon cancer. * Social History:?Tobacco Use:?Tobacco Use/Smoking?Patient is a?nonsmoker.?Drugs/Alcohol:?Alcohol Screen?Did you have a drink containing alcohol in the past year??Yes,?How often did you have a drink containing alcohol in the past year??2 to 4 times a month (2 points),?How many drinks did you have on a typical day when you were drinking in the past year??5 or 6 drinks (2 points),?Points?4,?Interpretation?Positive.?Miscellaneous:?Marital status: Single/ long time girlfriend. 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 ???Smokes marijuana; occ alcohol on the weekends. * Medications:?TakingZinc Omeg a 3 Multivitamin Fluticasone Propionate 93 MCG/ACT Exhaler Suspension 2 sprays (1 spray in each nostril) Nasally Twice a dayVitamin D3 50 MCG (1999 UT) Capsule Oral Furosemide 40 MG Tablet TAKE 1 TABLET BY MOUTH EVERY MORNING Oral Carvedilol 12.5 MG Tablet Oral Valsartan 80 MG Tablet Oral Ferrous Sulfate 325 (65 Fe) MG Tablet TAKE 1 TABLET BY MOUTH 3 TIMES A DAY FOR 30 DAYS Oral Atorvastatin Calcium 40 MG Tablet Oral metFORMIN HCl 1000 MG Tablet Oral Jardiance 10 MG Tablet Oral Basaglar KwikPen 100 UNIT/ML Solution Pen-injector Subcutaneous Medication List reviewed and reconciled with the patientTaking Zinc Taking [place] 3 Taking Multivitamin Taking Fluticasone Propionate 93 MCG/ACT Exhaler Suspension 2 sprays (1 spray in each nostril) Nasally Twice a dayTaking Vitamin D3 50 MCG (1999 UT) Capsule Oral Taking Furosemide 40 MG Tablet TAKE 1 TABLET BY MOUTH EVERY MORNING Oral Taking Carvedilol 12.5 MG Tablet Oral Taking Valsartan 80 MG Tablet Oral Taking Ferrous Sulfate 325 (65 Fe) MG Tablet TAKE 1 TABLET BY MOUTH 3 TIMES A DAY FOR 30 DAYS Oral Taking Atorvastatin Calcium 40 MG Tablet Oral Taking metFORMIN HCl 1000 MG Tablet Oral Taking Jardiance 10 MG Tablet Oral Taking Basaglar KwikPen 100 UNIT/ML Solution Pen-injector Subcutaneous Medication List reviewed and reconciled with the patient * Allergies:?N.K.D.A.yes[Aller gies Verified] Objective: * Vitals:?Wt: 240 lbs, Ht: 5 f t 8 in, BMI:36.49 Index, BP: 00/00 mm Hg. * Examination: ???General Examination: ?GENERAL APPEARANCE:?pleasant, well nourished, well developed, in no acute distress.?EYES:?sclera non-icteric.?ORAL CAVITY:?mucosa moist.?NECK/THYROID:?no cervical lymphadenopathy, neck supple.?SKIN:?nonjaundiced, no spider angiomata.?HEART:?S1, S2 normal.?LUNGS:?clear to auscultation bilaterally.?ABDOMEN:?normal bowel sounds, no guarding or rigidity, no guarding or rigidity, no masses palpable, soft, nontender, nondistended.?EXTREMITIES:?no edema.?NEUROLOGIC:?alert and oriented.? Assessment: * Assessment: 1.?Encounter for other prepr ocedural examination - Z01.818 (Primary)?2.?Colon cancer screening - Z12.11? Overall, River appears well. Given his age and good clinical appearance, I did recommend a colonoscopy for screening purposes. We did review the rationale for that in regard to colon cancer prevention. Full consent is obtained for this, including risks of bleeding and perforation. The procedure will be done with monitored anesthesia care. He was given the below instructions regarding adjustment of some of his medications prior to the procedure. River was comfortable with this plan. Thank you again for allowing me to participate in River's care. I shall continue to keep you advised of his progress. Plan: * Treatment: Notes: DO NOT TAKE THE EMPAGLIFLOZIN(JARDIANCE) FOR THREE DAYS BEFORE THE COLONOSCOPY DO NOT TAKE THE METFORMIN THE NIGHT BEFORE NOR ON THE DAY OF THE COLONOSCOPY TAKE ONLY 1/2 YOUR INSULIN THE AFTERNOON BEFORE THE COLONOSCOPY DO NOT TAKE THE FUROSEMIDE ON THE DAY OF THE COLONOSCOPY STOP FERROUS SULFATE AND FISH OIL FOR 1 WEEK BEFORE THE COLONOSCOPY?? * Procedure Codes:?3017F COLOR ECTAL CA SCREEN DOC [id number] TOBACCO [id number] BP SCR NOT PRFRM REC REASON NOS * Preventive Medicine:? ??Counseling:?Care goal follow-up plan:?Above Normal BMI Follow-up?Giving encouragement to exercise,?BMI management provided?Yes.? * Follow Up:?prn * * Sign off status: Completed true * Provider:?Higinio Zhang MD Date:? 024 Generated for Nikkie kelley/Steven/Felixitting on:?06/29/2024 05:41 PM EST History and Physical Notes * HPI (History of Present Illness) Category Sub-Category Detail Notes Category Not es incontinence I saw River in the office today for evaluation of colorectal cancer screening. As you know, River is a 53-year-old male who presently feels well. He enjoys a good appetite, without any significant heartburn or dysphagia. His bowel movements have been regular and without any signs of bleeding. He denies abdominal pain, jaundice, nor any unintentional weight loss. He denies any known family history of colon cancer. He has never had a colonoscopy. Examination Category Sub-Category Detail Notes Category Not es General Examination GENERAL APPEARANCE: pleasant , well [...]
--- OUTSIDE RECORDS SUMMARY | 2024-06-29 17:42 | XMS_ITS ---
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 Primary Care Provider Higinio Mcmahon Unavailable [phone] Velia Siddiqui Unavailable Unavailable REASON FOR VISIT screening Problems Problem Type SNOMED Code ICD Code Onset Dates Problem Status W/U Status Risk Notes Problem Diverticular disease of colon (909883001) Diverticulosis of large intestine without perforation or abscess without bleeding (K57.30) Active confirmed Encounters Encounter Location Date Provider Diagnosis [facility] [address] [place] [phone] 01/25/2024 Higinio Zhang Colon cancer scree shanthi [...] * SOO FONSECA:[birth year] (54 yo M)Acc No.[id number]:01/25/2024 COLON WITH MAC Patient:?JORGE FONSECA Provider:?Higinio Zhang MD :1970???Age:53 Y???Sex:Male Selvin e:01/25/2024 Address:[address] [place] [address] , [facility] Pcp:Quique Tatum NRod Subjective: * Chief Complaints: * ???1. Screening. * Medical History:? Objective: * Vitals:? Assessment: * Assessment: 1.?Colon cancer screening - Z12.11 (Primary)???2.?Colon polyp - K63.5???3.?Diverticulosis of large intestine without perforation or abscess without bleeding - K57.30???4.?Other hemorrhoids - K64.8??? Plan: * Treatment: * Procedure Codes:?14915 LESIO N REMOVAL COLONOSCOPY, Modifiers: 33 * * The named appointment provid er may or may not be the originator of this progress note, and it is not deemed complete until electronically signed by the appointment provider. Sign off status: Pending * Provider:?Higinio Zhang MD Date:? 024 Generated for Nikkie kelley/Steven/Franciscosmitting on:?06/29/2024 05:41 PM EST
--- OUTSIDE RECORDS SUMMARY | 2024-06-29 17:42 | XMS_ITS | Patient Health Record ---
Author Organization [facility] Address [address] [place] [address] Care Team Providers Care Marketing Administrator Name Role Phone Quique Tatum N.P. Primary Care Provider Higinio Mcmahon Unavailable [phone] Velia Siddiqui Unavailable Unavailable Allergies No Known Allergies Results Component Value Reference Range Notes Pathology (Not yet reviewed by provider) Interpretation: Performing Lab:[facility], [address] [place] [address] Notes/Report: ----- Name: Filomena Fonseca Age/Sex: 53/M : 1970 Unit#: [id number] Attend Dr: Higinio Zhang MD Re01/25/24 Status : [facility] Location: [facility] Disch: ----- SPEC : [id number] RECD : 01/25/24 STATUS: CASSANDRA RODRIGUEZ NUM: [id number] VALENTE: 01/25/24-[address] [facility] DR: Higinio Zhang MD ENTERED: 01/25/24 13 SP TYPE: Surgical OTHR DR: Quique Tatum CNP ORDERED: HE Stain/6, Gross Micro L4/2 Diagnosis A. Colon, 60 cm, polypectomy: Tubular adenoma; negative for high-grade dysplasia or carcinoma. B. Colon, 40 cm, polypectomy: Hyperplastic mucosal polyp. Clinical History Pre-Op Dx: Screening Post-Op Dx: Colon po lyps, diverticulosis, hemorrhoids Microscopic Description A, B. Microscopic sections reviewed. Material Received A. Polyp at 60 cm B. Polyp at 40 cm Gross Description Received in 2 parts. A. Received in forma isma labeled ?polyp at 60 cm? consists of a polypoid portion of pink-theodore soft tissue measurin g 1.0 x 0.5 x 0.4 cm in greatest dimension which is bisected and submitted for micros copic examination, 2 pieces in cassette A. B. Received in forma isma labeled ?polyp at 40 cm? is a fragment of pink-theodore soft tissue measuring 0.5 cm in greatest dimension which is entirely submitted for microscopic examination, 1 piece in cassette B. [facility] Copies To: [place] [address] [email or web address] CONTINUED ON NEXT PAGE ----- Name: Filomena Fonseca guero Sadler Age/Sex: 53/M : 1970 Unit#: [id number] Attend Dr: Higinio Zhang MD Re01/25/24 Status : [facility] Location: [facility] Disch: ----- SPEC : [id number] RECD : 01/25/24-110 STATUS: CASSANDRA RODRIGUEZ NUM: [id number] AVLENTE: 01/25/24-[address] [facility] DR: Higinio Zahng MD ENTERED: 01/25/24- 13 SP TYPE: Surgical OTHR DR: Quique Tatum [facility] ORDERED: MIGUEL A Stain/6, Gross Micro L4/2 Copies To: (Continued) Higinio Zhang MD [address] [place] [address] ----- Signed (signature on file) Celestine Hunter MD 01/26/24 1230 ----- END OF REPORT Glucose, Whole Blood Reviewed date:01/25/2024 06:13:15 PM Interpretation: Performing Lab:[facility], [address] [place] [address] Notes/Report: Glucose, Whole Blood 162 60-115 mg/dL METER # : [id number] Reason For Referral No Information Medications Medication SIG (Take, Route, Frequency, Duration) Notes Start Date End Date Status Fluticasone Propionate 93 MCG/ACT 2 sprays (1 spray in each nostril) Nasally Twice a day for 30 day(s) Active Multivitamin Active Vitamin D3 50 MCG (2000 UT) Oral for 90 Active metFORMIN HCl 1000 MG Oral for 90 Active Atorvastatin Calcium 40 MG Oral for 90 Active [place] 3 Active Basaglar KwikPen 100 UNIT/ML Subcutaneous [...] 80 MG Oral for 90 Ac tive Social History Tobacco Use: Social History Observation [...] Status Risk Notes Problem Colon cancer screening (376614811) Colon cancer screening (Z12.11) Active confirmed Problem Pre-procedure evaluation check (371348816) Encounter for other preprocedural examination (Z01.818) Active confirmed Problem Diverticular disease of colon (977920108) Diverticulosis of large intestine without perforation or abscess without bleeding (K57.30) Active confirmed Vital Signs Blood pressure diastolic 00 mm Hg 10/01/2023 Height 5 ft 8 in in 10/01/2023 Blood pressure systolic 00 mm Hg 10/01/2023 Weight 240 lbs 10/01/2023 BMI 36.49 kg/m2 10/01/2023 Encounters Encounter Location Date Provider Diagnosis [facility] [place] [address] [place], [place] [phone] 01/25/2024 Higinio Zhang Colon cancer screeni ng Z12.11 ; Colon polyp K63.5 ; Diverticulosis of large intestine without perforation or abscess without bleeding K57.30 and Other hemorrhoids K64.8 [facility] [address] [place] [address] 10/01/2023 Higinio Zhang Colon cancer screeni ng [...] to keep you advised of his progress. 01/25/2024 Diverticulosis of large intestine without perforation or abscess without bleeding (ICD-10 - K57.30) 01/25/2024 Other hemorrhoids (ICD-10 - K64.8) Plan Of Treatment Pending Test Test Name Order Date Pathology 01/25/2024 Future Test Test Name Order Date COLONOSCOPY 10/01/2023 Insurance Providers Payer Name Payer Address Payer Phone Subscriber Number Group Number Insured Name Patient Relationship to Insured Coverage Start Date Coverage End Date [employer] [address] [place] [address] [id number] RIVER FONSECA Self - patient is the insured Medical (General) History Medical History History ICD Code Sleep apnea - CPAP machine 09/2023 DM Hypertension CKD stage 3 Anemia Hypercholesterolemia Denies AL,CVA,Lung disease Surgical History Surgery Date(Month/Year) [place] teeth Perirectal abscess -Dr. Valverde--in hos pital for about a week 02/2022
== END 2024-06-29 15:07 | disposition home or self-care (01) ==
PROVIDERS: PCP Nurse Practitioner Family; Visit Provider Internal Medicine Nephrology
DX: E11.21 Type 2 diabetes mellitus with diabetic nephropathy (principal); E11.22 Type 2 diabetes mellitus with diabetic chronic kidney disease; N18.31 Chronic kidney disease, stage 3a; D63.1 Anemia in chronic kidney disease; N18.30 Chronic kidney disease, stage 3 unspecified; I10 Essential (primary) hypertension
CPT/HCPCS: 99214

== ENCOUNTER → 2024-06-29 14:40 | Outpatient (BNVA) | payer OTHER, SELFPAY | PROVIDERS: PCP Nurse Practitioner Family; Visit Provider Internal Medicine Nephrology ==

== ENCOUNTER 2024-07-18 09:48 | Outpatient (AMB) | payer OTHER, SELFPAY ==
--- NOTE | 2024-07-18 09:52 | A.OFFPC_ITS ---
Vital Signs 07/18/24 10:03 07/18/24 10:20 Height 5 ft 8 in Weight 243 lb BMI 36.9 BP 162/73 H 136/70 Blood Pressure Location Rt brachial Rt brachial Position Sitting Sitting Respiration 16 Pulse 56 Pulse Source Pulse Oximeter Temp 97.8 F Temp Source Oral Pulse Oximetry (%) 100 Oxygen Delivery Method Room Air Intake Visit Reasons: 1 mos HTN Intake Note: patient here for follow up on HTN Multimedia Services Coordinator Required: No Allergies No Known Allergies Allergy (Verified 07/18/24 10:12) Medication List - Last Reconciled 07/18/24 by Quique Tatum CNP atorvastatin 40 mg PO BEDTIME 30 days blood sugar diagnostic (FreeStyle Lite Strips) Test four times a day or as directed. blood-glucose meter (FreeStyle Lite Meter kit) As Directed carvedilol 12.5 mg PO BID 90 days cholecalciferol (vitamin D3) 50 mcg PO DAILY clonidine HCl 0.2 mg PO BID 90 days comp.stocking,knee,long,medium As directed empagliflozin 25 mg PO DAILY 3 months fenofibrate 54 mg PO DAILY ferrous sulfate 325 mg PO TID fluticasone propionate 50 mcg/actuation (Flonase Allergy Relief) 2 sprays intranasal BID PRN furosemide 40 mg PO BID 90 days insulin glargine (Basaglar KwikPen U-100 Insulin) 15 units (0.15 mL) subcut QPM lancets (FreeStyle Lancets) TEST FOUR TIMES A DAY OR DIRECTED. metformin 1,000 mg PO BID miscellaneous medical supply 1 large blood pressure cuff multivitamin 1 tab PO DAILY omega-3 fatty acids-fish oil 684-1,200 mg 1 cap PO DAILY pen needle, diabetic (BD Toshia 2nd Gen Pen Needle) USE FOUR TIMES A DAY OR DIRECTED. sodium polystyrene sulfonate 30 grams orally once a week; valsartan 160 mg PO BID 90 days zinc acetate 50 mg (2 x 25 mg (zinc)) PO BID 3 months Tobacco use date assessed: 07/18/24 Dental Screening Dental Screen Date: 07/18/24 Did you have a dental visit in the last 12 months?: No Did you have a dental problem in the last 6 months where you did not have access to dental care?: No Was dental information given to patient?: Patient has dentist HPI HPI Comments History of Present Illness Details 54-year-old male presents for hypertensi on follow-up. He admits to taking his medications as prescribed without adverse reactions. Will making healthy dietary choices, including low-sodium. He reports episodes of dizziness about 4-5 times daily, lasting 2-3 minutes. His symptoms have been ongoing for the past 2 weeks. His symptoms are not dependent on position changes. He notes dizziness with sitting down or walking. [facility] Medical History (Updated 07/18/24 @ 10:27 by Quique Tatum CNP) CKD (chronic kidney disease) stage 3, GFR 30-59 ml/min Sleep apnea Chronic heart failure with preserved ejection fraction (HFpEF) Elevated cholesterol Iron deficiency anemia Chronic renal insufficiency Diabetic nephropathy Acute heart failure with preserved ejection fraction (HFpEF) Necrotizing subcutaneous infection Hypertension Type 2 diabetes Surgical History History of pyloromyotomy Status post incision and drainage [place] teeth removed Family History Mother Diabetes Maternal Uncle Diabetes Sister Multiple sclerosis Social History Household Members: Spouse Both parents involved: No Caregiver staying overnight: No Housing: House Are you a primary care asst to a significant other at home: No Do you presently have visiting nurse or other home services: No 75 years or older and lives alone: No Alcohol intake: current Alcohol intake frequency: a few times a week Alcohol type: beer Patient Tobacco Use Status: Former Tobacco user Tobacco use type: Cigarette Years Smoked: 4 e-Cigarette/Vaping Use: Never Used Second Hand Smoke Exposure: Yes Substance Use Type: Marijuana Advance Directives Date on File: 05/07/23 service: No Current occupational status: employed Current occupation: [employer] Cognitive needs: No Hearing needs: No Vision needs: No Questionnaire PHQ-9 Over the last 2 weeks, how often have you been bothered by any of the following problems? 2. Feeling down, depressed, or hopeless: several days 9. Thoughts that you would be better off or of hurting yourself in some way: not at all Source: Developed by Drs. Higinio Rodriguez, Olivia Rayo, Edilberto Freeman and colleagues, with an educational smitha from [employer]. Thrive Questionnaire Date Thrive assessed: 06/13/24 I am a: Patient What is your living situation today?: I have a steady place to live Within the past 12 months, did the food you bought not last and you didn't have the money to get more?: Sometimes True Within the past 12 months, did you worry whether your food would run out before you got money to buy more?: Sometimes True Do you have trouble paying for medicines?: Yes Do you have trouble getting transportation to medical appointments?: No Do you have trouble paying your heating and electricity bill?: Yes Do you have trouble taking care of your child, family member or friend?: No Do you have trouble with day-to-day activities such as bathing, preparing meals, shopping, managing finances, etc.?: No Are you currently unemployed and looking for a job?: No Are you interested in more education?: I choose not to answer this question Currently or been in a relationship where the following occur: No concerns reported THRIVE Score: 3 UTE-7 AMB Questionnaire UTE-7 Date UTE - 7 assessed: 09/01/23 Source: Developed by Drs. Higinio Rodriguez, Olivia Rayo, Edilberto Freeman and colleagues, with an educational smtiha from [employer]. Review of Systems Const Details: Const Denies chills, Denies fatigue, Denies fever(s), Denies headache(s) and Denies weakness ENT Denies dizziness and Denies headache(s) Card Denies chest pain, Denies lightheadedness, Denies dyspnea and Denies other (Palpitations) Resp Denies cough, Denies dyspnea, Denies wheezing and Denies other ( shortness of breath) GI Denies abdominal pain, Denies melena, Denies hematochezia, Denies change in bowel habits, Denies dyspepsia and Denies nausea Denies hematuria and Denies dysuria Musc Denies abnormal gait, Denies myalgias, Denies arthralgias, Denies numbness and Denies tingling Skin/Breast Denies rash, Denies unusual bruising and Denies wounds Neuro Denies abnormal gait, Denies dizziness, Denies headache(s), Denies memory loss, Denies numbness, Denies Sensory deficit (Neuro), Denies tingling and Denies weakness Psych Denies anxiety, Denies depression, Denies memory loss Endo Denies cold intolerance, Denies fatigue, Denies heat intolerance, Denies polydipsia and Denies polyuria Aller/Immun Denies wheezing Physical exam (Primary Care) Vital Signs: Last Vital Signs Temp 97.8 F 07/18/24 10:03 Pulse 56 07/18/24 10:03 Resp 16 07/18/24 10:03 BP 162/73 H 07/18/24 10:03 Pulse Ox 100 07/18/24 10:03 Oxygen Delivery Method Room Air 07/18/24 10:03 BMI result Body Mass Index 36.9 Tobacco/Smoking Status: Tobacco use Status Tobacco use date assessed 07/18/24 07/18/24 10:06 Patient Tobacco Use Status Former Tobacco user 07/18/24 09:54 Tobacco use type Cigarette 07/18/24 09:54 e-Cigarette/Vaping Use Never Used 07/18/24 09:54 Thrive Assessment: Date of Thrive Assessment Date Thrive assessed 06/13/24 07/18/24 09:54 Currently or been in a relationship where the following occur: No concerns reported Const Other: General: no acute distress and well developed Nutritional Appearance: well nourished Orientation/consciousness: patient oriented x3 HENMT Head: Yes normocephalic and Yes atraumatic Eyes General: appearance normal, both eyes and all related structures Pupils: Equal, round and reactive pupils present EOM: EOMs intact bilaterally Resp Effort & Inspection: normal respiratory effort Auscultation: clear to auscultation bilaterally Cardio Rate: regular rate Rhythm: regular rhythm Heart sounds: S1 normal heart sound present, S2 normal heart sound present, no gallops, no murmurs and no rubs GI Palpation (GI): No Abdominal aortic bruit present, Soft to palpation, nontender, No hepatosplenomegaly present and No Rebound tenderness present Auscultation: normal bowel sounds General: Yes no CVA tenderness Back/Spine/Pelvis Back: no CVA tenderness Cervical Spine: cervical ROM normal and No Cervical spine tenderness Thoracic/Lumbar Spine: thoraco-lumbar ROM normal, No pain with thoraco-lumbar ROM, No thoracic spinal tenderness and No lumbar spinal tenderness Extrem General: Yes normal to inspection, No edema and No calf tenderness Skin General: warm and dry. Normal skin color. Normal skin turgor Neuro General: patient oriented x3, gait normal and no focal neuro deficit Cranial nerves: Yes Equal, round and reactive pupils present Cognition (Neuro): normal cognition Gait exam (Neuro): Normal gait present Sensory Exam: No Sensory deficit (Neuro) Psych Appearance: grossly normal Affect: normal affect Attitude: cooperative Thought process: Normal thought process present Coding Level of Care Code Est Pt Level 3 (92463) Diagnoses Primary hypertension I10 Hypertension type: primary hypertension Dizziness R42 Assessment & Plan Assessment & Plan (1) Hypertension: Code(s): I10 - Essential (primary) hypertension Category: Medical Qualifiers: Hypertension type: primary hypertension Qualified Code(s): I10 - Essential (primary) hypertension Plan: Resting blood pressure is 136/70, slightly above goal of less than 130/80. He has been experiencing episodes of dizziness, not related to position changes, about 3-4 times daily in the past 2 weeks. Continue current treatment regimen. Advised to monitor his blood pressure twice daily, record readings, and bring to next appointment. Also monitor blood pressure when experiencing dizziness and document reading. Follow-up in 1 month or sooner with worsening or new symptoms. Verbalized understanding and agreed with treatment plan. (2) Dizziness: Code(s): R42 - Dizziness and giddiness Category: Medical Plan: Plan as above.
[2024-07-18 10:03] VITALS: BP 162/73; PULSE 56; RESP 16; TEMP 36.6; O2SAT 100; BMI 36.9
[2024-07-18 10:20] VITALS: BP 136/70
== END 2024-07-18 10:27 | disposition home or self-care (01) ==
LOC: HO.HMCFM 09:49
PROVIDERS: PCP Nurse Practitioner Family; Visit Provider Nurse Practitioner Family
DX: I10 Essential (primary) hypertension (principal); R42 Dizziness and giddiness

== ENCOUNTER → 2024-07-18 09:48 | Outpatient (BNVA) | payer OTHER, SELFPAY | PROVIDERS: PCP Nurse Practitioner Family; Visit Provider Nurse Practitioner Family ==

== ENCOUNTER 2024-08-12 10:22 | Outpatient (AMB) | payer OTHER, SELFPAY ==
--- NOTE | 2024-08-12 10:34 | MHC.OFFVIS ---
Vital Signs 08/12/24 10:37 Height 5 ft 8 in Weight 244 lb BMI 37.1 BP 122/62 Blood Pressure Location Rt brachial Position Sitting Pulse 65 Pulse Source Pulse Oximeter Pulse Oximetry (%) 98 Oxygen Delivery Method Room Air Intake Visit Reasons: Follow up Intake Note: Patient presents follow up NANCY. Compliance in chart. Map Mounter Required: No Accompanied by: Self / Same As Patient Allergies No Known Allergies Allergy (Verified 08/12/24 10:40) HPI Comments Details: 54-yr-old male presents for follow-up visit of sleep apnea. Pt denies any significant interval medical history changes. He had been having some episodes of dizziness, which he states has been improving. BP today is normotensive. 07/25/2023: HST showed severe sleep apnea w/ AHI 43.5/hr and O2 humberto 57%. Interval 01/22/2024, overnight pulse oximetry study while on APAP 6-20 cm H2O with EPR 3 and room air, revealed mean SpO2 96%, highest SpO2 98%, lowest SpO2 89%, SpO2 was under 90% for 12 seconds of study time, and SpO2 did not fall under 88% at all. Patient reports he is compliant with his CPAP machine. States he sleeps well with the use, and has good energy while awake. 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 And has no difficulty sleeping during the day. He states he has enough CPAP supplies. He uses distilled water regularly in his CPAP water reservoir. Cleans his CPAP supplies routinely Compliance Report Usage 07/13/2024 through 08/11/2024 Usage days 100% Usage days >= 4 hours 87% Average usage (days used) almost 6 hours AirSense 10 AutoSet Serial number [id number] Mode AutoSet Min Pressure 6 cmH2O Max Pressure 20 cmH2O EPR multimedia designer EPR level 3. Maximum pressure 19.6 cm H2O Leaks - L/min Median: 0.8 Residual events per hour: AHI: 1.1/hr [facility] Medical History (Updated 07/18/24 @ 10:27 by Quique Tatum CNP) CKD (chronic kidney disease) stage 3, GFR 30-59 ml/min Sleep apnea Chronic heart failure with preserved ejection fraction (HFpEF) Elevated cholesterol Iron deficiency anemia Chronic renal insufficiency Diabetic nephropathy Acute heart failure with preserved ejection fraction (HFpEF) Necrotizing subcutaneous infection Hypertension Type 2 diabetes Surgical History History of pyloromyotomy Status post incision and drainage [place] teeth removed Family History Mother Diabetes Maternal Uncle Diabetes Sister Multiple sclerosis Social History Household Members: Spouse Both parents involved: No Caregiver staying overnight: No Housing: House Are you a primary gericare aide to a significant other at home: No Do you presently have visiting nurse or other home services: No 75 years or older and lives alone: No Alcohol intake: current Alcohol intake frequency: a few times a week Alcohol type: beer Patient Tobacco Use Status: Former Tobacco user Tobacco use type: Cigarette Years Smoked: 4 e-Cigarette/Vaping Use: Never Used Second Hand Smoke Exposure: Yes Substance Use Type: Marijuana Advance Directives Date on File: 05/07/23 service: No Current occupational status: employed Current occupation: [employer] Cognitive needs: No Hearing needs: No Vision needs: No Physical Exam Vital Signs: Last Vital Signs Pulse 65 08/12/24 10:37 BP 122/62 08/12/24 10:37 Pulse Ox 98 08/12/24 10:37 Oxygen Delivery Method Room Air 08/12/24 10:37 BMI result Body Mass Index 37.1 Const General: no acute distress Orientation/consciousness: patient oriented x3 Resp Effort & Inspection: normal respiratory effort and able to speak in complete sentences Auscultation: clear to auscultation bilaterally Neuro General: patient oriented x3 Psych Mental Status: mental status grossly normal Speech and movement: Clear speech present Attitude: cooperative Results Reviewed Results Reviewed: Assessment & Plan Assessment & Plan (1) Severe obstructive sleep apnea: Code(s): G47.33 - Obstructive sleep apnea (adult) (pediatric) Category: Medical (2) Nocturnal hypoxemia: Code(s): G47.34 - Idiopathic sleep related nonobstructive alveolar hypoventilation Category: Medical Plan Continue APAP 6-20 cm H2O with EPR set to 3 w/ goal of using nightly > 4 hrs, as pt is experiencing good clinical benefit from use and overnight pulse oximetry study while on these settings, showed resolution of nocturnal hypoxemia with average SpO2 at 96%. Clean CPAP machine and supplies routinely. Continue to use distilled water in CPAP water tank reservoir. Change CPAP supplies routinely. Pt to contact us or respiratory company with any questions or concerns. Patient advised if dizziness worsens her reoccurs, he can feel free to reach out to us. Pt to follow-up in 12 months or sooner prn. Coding Level of Care Code Est Pt Level 3 (04793) Diagnoses Severe obstructive sleep apnea G47.33 Nocturnal hypoxemia G47.34
[2024-08-12 10:37] VITALS: BP 122/62; PULSE 65; O2SAT 98; BMI 37.1
--- OUTSIDE RECORDS SUMMARY | 2024-08-12 11:15 | XMS_ITS ---
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 Primary Care Provider Higinio Mcmahon Unavailable [phone] Velia Siddiqui Unavailable Unavailable Allergies No Known [...] MCG (2000 UT) Oral for 90 Active Brunson 3 Active Zinc Active Multivitamin Active Social [...] Status Risk Notes Problem Colon cancer screening (248367359) Colon cancer screening (Z12.11) Active confirmed Problem Pre-procedure evaluation check (924194194) Encounter for other preprocedural examination (Z01.818) Active confirmed Vital Signs Blood pressure systolic 00 mm Hg 10/01/19 24 Blood pressure diastolic 00 mm Hg 024 Height 5 ft 8 in in 10/01/2023 Weight 240 lbs 10/01/2023 BMI 36.49 kg/m2 10/01/2023 Encounters Encounter Location Date Provider Diagnosis [facility] [address] [place] [address] 10/01/2023 Higinio Zhang Colon cancer screeni ng [...] again for allowing me to participate in iRver's care. I shall continue to keep you [...] * RIVER FONSECADOB:[birth year] (53 yo M)Acc No.[id number]:10/01/2023 Progress Notes Patient:?RIVER FONSECA Provider:?Higinio Zhang MD :1970???Age:53 Y???Sex:Male Selvin e:10/01/2023 Address:[address] [place], [place] [id number] Pcp:Quique Tatum N.P. Subjective: * Chief Complaints: [...] Single/ long time girlfriend. 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 ???Smokes marijuana; occ alcohol on the weekends. [...] and reconciled with the patientTaking Zinc Taking Brunson 3 Taking Multivitamin Taking Fluticasone Propionate 93 [...] Procedure Codes:?3017F COLOR ECTAL CA SCREEN DOC [id number] TOBACCO NON-HOVEX7709 BP SCR NOT PRFRM REC REASON NOS * Preventive Medicine:? ??Counseling:?Care goal follow-up plan:?Above Normal BMI Follow-up?Giving encouragement to exercise,?BMI management provided?Yes.? * Follow Up:?prn * * Sign off status: Completed true * Provider:?Higinio Zhang MD Date:? 024 Generated for Nikkie kelley/Steven/Omkar on:?08/12/2024 11:15 AM EDT History and Physical Notes * HPI (History [...]
--- OUTSIDE RECORDS SUMMARY | 2024-08-12 11:16 | XMS_ITS | Patient Health Record ---
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 Primary Care Provider Higinio Mcmahon Unavailable [phone] Velia Siddiqui Unavailable Unavailable Allergies No Known Allergies Results Component Value Reference Range Notes Glucose, Whole Blood Reviewed date:01/25/2024 06:13:15 PM Interpretation: Performing Lab:[facility], [address] [place] [phone] Notes/Report: Glucose, Whole Blood 162 60-115 mg/dL METER # : [id number] Pathology (Not yet reviewed by provider) Interpretation: Performing Lab:[facility], [address] [place] [phone] Notes/Report: ----- Name: FonsecaFilomena Age/Sex: 53/M : 1970 Unit#: [id number] Attend Dr: Higinio Zhang MD Re01/25/24 Status : [facility]P [facility] Location: HO.SSS Disch: ----- SPEC : [id number] RECD : 01/25/24-110 STATUS: CASSANDRA RODRIGUEZ NUM: [id number] VALENTE: 01/25/24-[address] [facility] [address]: Higinio Zhang MD ENTERED: 01/25/24- 13 SP TYPE: Surgical [...] microscopic examination, 1 piece in cassette [facility] Copies To: Quique Tatum CNP [facility] Family Medicine [address] [place] [id number] [email or web address] CONTINUED ON NEXT PAGE ----- Name: Filomena Fonseca Age/Sex: 53/M : 1970 Unit#: [id number] Attend Dr: Higinio Zhang MD Re01/25/24 Status : [facility] Location: [facility] Disch: ----- SPEC : [id number] REC -1100 STATUS: CASSANDRA RE NUM: [id number] VALENTE: 01/25/24-[address] [facility] [address]: Higinio Zhang MD ENTERED: 01/25/24-11 13 SP TYPE: Surgical OTHR DR: Quique Tatum GLOVE PAIRER ORDERED: MIGUEL A Stain/6, Lola Franks L4/2 Copies To: (Continued) Higinio Zhang MD [facility] [address] [place] [address] ----- Signed (signature on file) Celestine Hunter MD 01/26/24 1230 ----- END OF REPORT Reason For Referral No Information Medications Medication [...] Calcium 40 MG Oral for 90 Active Twilight 3 Active Basaglar KwikPen 100 UNIT/ML Subcutaneous [...] Status Risk Notes Problem Colon cancer screening (410240520) Colon cancer screening (Z12.11) Active confirmed Problem Pre-procedure evaluation check (539784409) Encounter for other preprocedural examination (Z01.818) Active confirmed Problem Diverticular disease of colon (927302194) Diverticulosis of large intestine without perforation or abscess without bleeding (K57.30) Active confirmed Vital Signs Blood pressure diastolic 00 mm Hg 10/01/2023 Height 5 ft 8 in in 10/01/2023 Blood pressure systolic 00 mm Hg 10/01/2023 Weight 240 lbs 10/01/2023 BMI 36.49 kg/m2 10/01/2023 Encounters Encounter Location Date Provider Diagnosis [facility] Out[facility] [address] [place], [place] [phone] 01/25/2024 Higinio Zhang Colon cancer screeni ng Z12.11 ; Colon polyp K63.5 ; Diverticulosis of large intestine without perforation or abscess without bleeding K57.30 and Other hemorrhoids K64.8 [facility] [address] [place] [address] 10/01/2023 Higinio Zhang Colon cancer screeni ng [...] Date Coverage End Date [employer] [address] [place] [address] [id number] RIVER FONSECA Self - patient is the insured Medical (General) History Medical History History ICD Code Sleep apnea - CPAP machine 09/2023 DM Hypertension CKD stage 3 Anemia Hypercholesterolemia Denies OR,CVA,Lung disease Surgical History Surgery Date(Month/Year) [place] teeth Perirectal abscess -Dr. Valverde--[facility]os [facility] about a [facility] 02/2022
--- OUTSIDE RECORDS SUMMARY | 2024-08-12 11:16 | XMS_ITS ---
Author Organization [facility] Address [address] [place] [address] Care Team Providers Care Paunch Trimmer Name Role Phone Quique Tatum N.P. Primary Care Provider Higinio Mcmahon Unavailable [phone] Velia Siddiqui Unavailable Unavailable REASON FOR VISIT screening Problems Problem Type SNOMED Code ICD Code Onset Dates Problem Status W/U Status Risk Notes Problem Diverticular disease of colon (797695448) Diverticulosis of large intestine without perforation or abscess without bleeding (K57.30) Active confirmed Encounters Encounter Location Date Provider Diagnosis [facility] Outpatient [address] [place], [place] [phone] 01/25/2024 Higinio Zhang Colon cancer scree shanthi [...] * SOO FONSECA:[birth year] (54 yo M)Acc No.[id number]:01/25/2024 COLON WITH MAC Patient:JORGE RAMIRES Provider:?Higinio Zhang MD :1970???Age:53 Y???Sex:Male Selvin e:01/25/2024 Address:[address] [place] [address] , [facility] Pcp:Quique Tatum NRod Subjective: * Chief Complaints: * ???1. Screening. * Medical History:? Objective: * Vitals:? Assessment: * Assessment: 1.?Colon cancer screening - Z12.11 (Primary)???2.?Colon polyp - K63.5???3.?Diverticulosis of large intestine without perforation or abscess without bleeding - K57.30???4.?Other hemorrhoids - K64.8??? Plan: * Treatment: * Procedure Codes:?73603 LESIO N REMOVAL COLONOSCOPY, Modifiers: 33 * * The named appointment provid er may or may not be the originator of this progress note, and it is not deemed complete until electronically signed by the appointment provider. Sign off status: Pending * Provider:?Higinio Zhang MD Date:? 024 Generated for Nikkie kelley/Steven/Franciscosmitting on:?08/12/2024 11:15 AM EDT
== END 2024-08-12 11:01 | disposition home or self-care (01) ==
LOC: HO.HSMS 10:23
PROVIDERS: PCP Nurse Practitioner Family; Visit Provider Nurse Practitioner Family
DX: G47.33 Obstructive sleep apnea (adult) (pediatric) (principal); G47.34 Idiopathic sleep related nonobstructive alveolar hypoventilation
CPT/HCPCS: 99213

== ENCOUNTER → 2024-08-12 10:22 | Outpatient (BNVA) | payer OTHER, SELFPAY | PROVIDERS: PCP Nurse Practitioner Family; Visit Provider Nurse Practitioner Family ==

== ENCOUNTER 2024-08-23 09:44 | Outpatient (AMB) | payer OTHER, SELFPAY ==
--- NOTE | 2024-08-23 09:47 | MHC.PC.OV ---
Vital Signs 08/23/24 09:52 08/23/24 10:29 Height 5 ft 8 in Weight 247 lb 6 oz BMI 37.6 BP 164/71 H 124/70 Blood Pressure Location Lt brachial Rt brachial Position Sitting Sitting Respiration 16 Pulse 57 Pulse Source Pulse Oximeter Temp 97.5 F Temp Source Oral Pulse Oximetry (%) 100 Oxygen Delivery Method Room Air Intake Visit Reasons: 1 mos HTN Intake Note: patient here for 1 month follow up on HTN Entertainment Lawyer Required: No Allergies No Known Allergies Allergy (Verified 08/23/24 10:22) Medication List - Last Reconciled 08/23/24 by Quique Tatum CNP atorvastatin 40 mg PO BEDTIME 30 days blood sugar diagnostic (FreeStyle Lite Strips) Test four times a day or as directed. blood-glucose meter (FreeStyle Lite Meter kit) As Directed carvedilol 12.5 mg PO BID 90 days cholecalciferol (vitamin D3) 50 mcg PO DAILY clonidine HCl 0.2 mg PO BID 90 days comp.stocking,knee,long,medium As directed empagliflozin 25 mg PO DAILY 3 months fenofibrate 54 mg PO DAILY ferrous sulfate 325 mg PO TID fluticasone propionate 50 mcg/actuation (Flonase Allergy Relief) 2 sprays intranasal BID PRN furosemide 40 mg PO BID 90 days insulin glargine (Basaglar KwikPen U-100 Insulin) 15 units (0.15 mL) subcut QPM lancets (FreeStyle Lancets) TEST FOUR TIMES A DAY OR DIRECTED. metformin 1,000 mg PO BID miscellaneous medical supply 1 large blood pressure cuff multivitamin 1 tab PO DAILY omega-3 fatty acids-fish oil 684-1,200 mg 1 cap PO DAILY pen needle, diabetic (BD Toshia 2nd Gen Pen Needle) USE FOUR TIMES A DAY OR DIRECTED. sodium polystyrene sulfonate 30 grams orally once a week; valsartan 160 mg PO BID 90 days zinc acetate 50 mg (2 x 25 mg (zinc)) PO BID 3 months Tobacco use date assessed: 08/23/24 Dental Screening Dental Screen Date: 07/18/24 Did you have a dental visit in the last 12 months?: No Did you have a dental problem in the last 6 months where you did not have access to dental care?: No Was dental information given to patient?: Patient has dentist HPI HPI Comments History of Present Illness Details 54-year-old male presents for hypertension follow-up. He admits to taking his medications as prescribed without adverse reactions. He notes that he has been making healthy dietary choices. He is active but does not exercise. He offers no complaints and denies acute symptoms at this time. [facility] Medical History (Updated 07/18/24 @ 10:27 by Quique Tatum CNP) CKD (chronic kidney disease) stage 3, GFR 30-59 ml/min Sleep apnea Chronic heart failure with preserved ejection fraction (HFpEF) Elevated cholesterol Iron deficiency anemia Chronic renal insufficiency Diabetic nephropathy Acute heart failure with preserved ejection fraction (HFpEF) Necrotizing subcutaneous infection Hypertension Type 2 diabetes Surgical History History of pyloromyotomy Status post incision and drainage [place] teeth removed Family History Mother Diabetes Maternal Uncle Diabetes Sister Multiple sclerosis Social History Household Members: Spouse Both parents involved: No Caregiver staying overnight: No Housing: House Are you a primary long term care pharmacist to a significant other at home: No Do you presently have visiting nurse or other home services: No 75 years or older and lives alone: No Alcohol intake: current Alcohol intake frequency: a few times a week Alcohol type: beer Patient Tobacco Use Status: Former Tobacco user Tobacco use type: Cigarette Years Smoked: 4 e-Cigarette/Vaping Use: Never Used Second Hand Smoke Exposure: Yes Substance Use Type: Marijuana Advance Directives Date on File: 05/07/23 service: No Current occupational status: employed Current occupation: [employer] Cognitive needs: No Hearing needs: No Vision needs: No Questionnaire Thrive Questionnaire Date Thrive assessed: 06/13/24 I am a: Patient What is your living situation today?: I have a steady place to live Within the past 12 months, did the food you bought not last and you didn't have the money to get more?: Sometimes True Within the past 12 months, did you worry whether your food would run out before you got money to buy more?: Sometimes True Do you have trouble paying for medicines?: Yes Do you have trouble getting transportation to medical appointments?: No Do you have trouble paying your heating and electricity bill?: Yes Do you have trouble taking care of your child, family member or friend?: No Do you have trouble with day-to-day activities such as bathing, preparing meals, shopping, managing finances, etc.?: No Are you currently unemployed and looking for a job?: No Are you interested in more education?: I choose not to answer this question Currently or been in a relationship where the following occur: No concerns reported THRIVE Score: 3 UTE-7 AMB Questionnaire UTE-7 Date UTE - 7 assessed: 09/01/23 Source: Developed by Drs. Higinio Rodriguez, Olivia Rayo, Edilberto Freeman and colleagues, with an educational smitha from [employer]. Review of Systems Const Details: Const Denies chills, Denies fatigue, Denies fever(s), Denies headache(s) and Denies weakness ENT Denies dizziness and Denies headache(s) Card Denies chest pain, Denies lightheadedness, Denies dyspnea and Denies other (Palpitations) Resp Denies cough, Denies dyspnea, Denies wheezing and Denies other ( shortness of breath) GI Denies abdominal pain, Denies melena, Denies hematochezia, Denies change in bowel habits, Denies dyspepsia and Denies nausea Denies hematuria and Denies dysuria Musc Denies abnormal gait, Denies myalgias, Denies arthralgias, Denies numbness and Denies tingling Skin/Breast Denies rash, Denies unusual bruising and Denies wounds Neuro Denies abnormal gait, Denies dizziness, Denies headache(s), Denies memory loss, Denies numbness, Denies Sensory deficit (Neuro), Denies tingling and Denies weakness Psych Denies anxiety, Denies depression, Denies memory loss Endo Denies cold intolerance, Denies fatigue, Denies heat intolerance, Denies polydipsia and Denies polyuria Aller/Immun Denies wheezing Physical exam (Primary Care) Vital Signs: Last Vital Signs Temp 97.5 F 08/23/24 09:52 Pulse 57 08/23/24 09:52 Resp 16 08/23/24 09:52 BP 164/71 H 08/23/24 09:52 Pulse Ox 100 08/23/24 09:52 Oxygen Delivery Method Room Air 08/23/24 09:52 BMI result Body Mass Index 37.6 Tobacco/Smoking Status: Tobacco use Status Tobacco use date assessed 08/23/24 08/23/24 09:56 Patient Tobacco Use Status Former Tobacco user 08/23/24 09:50 Tobacco use type Cigarette 08/23/24 09:50 e-Cigarette/Vaping Use Never Used 08/23/24 09:50 Thrive Assessment: Date of Thrive Assessment Date Thrive assessed 06/13/24 08/23/24 09:50 Currently or been in a relationship where the following occur: No concerns reported Const Other: General: no acute distress and well developed Nutritional Appearance: well nourished Orientation/consciousness: patient oriented x3 HENMT Head: Yes normocephalic and Yes atraumatic Eyes General: appearance normal, both eyes and all related structures Pupils: Equal, round and reactive pupils present EOM: EOMs intact bilaterally Resp Effort & Inspection: normal respiratory effort Auscultation: clear to auscultation bilaterally Cardio Rate: regular rate Rhythm: regular rhythm Heart sounds: S1 normal heart sound present, S2 normal heart sound present, no gallops, no murmurs and no rubs GI Palpation (GI): No Abdominal aortic bruit present, Soft to palpation, nontender, No hepatosplenomegaly present and No Rebound tenderness present Auscultation: normal bowel sounds General: Yes no CVA tenderness Back/Spine/Pelvis Back: no CVA tenderness Cervical Spine: cervical ROM normal and No Cervical spine tenderness Thoracic/Lumbar Spine: thoraco-lumbar ROM normal, No pain with thoraco-lumbar ROM, No thoracic spinal tenderness and No lumbar spinal tenderness Extrem General: Yes normal to inspection, No edema and No calf tenderness Skin General: warm and dry. Normal skin color. Normal skin turgor Neuro General: patient oriented x3, gait normal and no focal neuro deficit Cranial nerves: Yes Equal, round and reactive pupils present Cognition (Neuro): normal cognition Gait exam (Neuro): Normal gait present Sensory Exam: No Sensory deficit (Neuro) Psych Appearance: grossly normal Affect: normal affect Attitude: cooperative Thought process: Normal thought process present Coding Level of Care Code Est Pt Level 3 (71450) Diagnoses Primary hypertension I10 Hypertension type: primary hypertension Assessment & Plan Assessment & Plan (1) Hypertension: Code(s): I10 - Essential (primary) hypertension Category: Medical Qualifiers: Hypertension type: primary hypertension Qualified Code(s): I10 - Essential (primary) hypertension Plan: Resting blood pressure is 124/70, within goal of less than 130/80. Continue current treatment regimen. Routine exercise and low-sodium diet encouraged. Follow-up in 1 month for an extended physical exam and diabetes. Return sooner with symptoms or concerns. Verbalized understanding and agreed with the plan. Orders: Orders Microalbumin, Random (w Creat) Today E11.9 - Type 2 diabetes mellitus without complications, Z79.4 - residential (current) use of insulin
[2024-08-23 09:52] VITALS: BP 164/71; PULSE 57; RESP 16; TEMP 36.4; O2SAT 100; BMI 37.6
[2024-08-23 10:29] VITALS: BP 124/70
== END 2024-08-23 10:30 | disposition home or self-care (01) ==
LOC: HO.HMCFM 09:45
PROVIDERS: PCP Nurse Practitioner Family; Visit Provider Nurse Practitioner Family
DX: I10 Essential (primary) hypertension (principal)

== ENCOUNTER → 2024-08-23 09:44 | Outpatient (BNVA) | payer OTHER, SELFPAY | PROVIDERS: PCP Nurse Practitioner Family; Visit Provider Nurse Practitioner Family | DX: Z13.89 Encounter for screening for other disorder (principal) ==

== ENCOUNTER 2024-08-23 11:42 | Outpatient (REF) | payer OTHER, SELFPAY ==
[2024-08-23 15:02] LABS: Creatinine Urine 44.18 mg/dL
[2024-08-23 15:14] LABS: Microalbum/Creatinine Ratio Ur 1321.8 ug/mg cr (<30)
== END 2024-08-23 11:43 | disposition home or self-care (01) ==
LOC: HO.WFDLDS 11:42
PROVIDERS: Visit Provider Nurse Practitioner Family
DX: E11.9 Type 2 diabetes mellitus without complications (principal); Z79.4 Long term (current) use of insulin
CPT/HCPCS: 82043; 82570

== ENCOUNTER 2024-09-13 09:16 | Outpatient (AMB) | payer OTHER, SELFPAY ==
--- NOTE | 2024-09-13 09:30 | A.OFFPC_ITS ---
Vital Signs 09/13/24 09:36 09/13/24 10:18 Height 5 ft 8 in Weight 247 lb 8 oz BMI 37.6 BP 141/63 H 126/64 Blood Pressure Location Rt brachial Rt brachial Position Sitting Sitting Respiration 16 Pulse 68 Pulse Source Pulse Oximeter Temp 97.9 F Temp Source Oral Pulse Oximetry (%) 98 Oxygen Delivery Method Room Air Intake Visit Reasons: 1 mos CPE, DM Intake Note: patient here for CPE Front End Driver Required: No Allergies No Known Allergies Allergy (Verified 09/13/24 10:03) Medication List - Last Reconciled 09/13/24 by Quique Tatum CNP atorvastatin 40 mg PO BEDTIME 30 days blood sugar diagnostic (FreeStyle Lite Strips) Test four times a day or as directed. blood-glucose meter (FreeStyle Lite Meter kit) As Directed carvedilol 12.5 mg PO BID 90 days cholecalciferol (vitamin D3) 50 mcg PO DAILY clonidine HCl 0.2 mg PO BID 90 days comp.stocking,knee,long,medium As directed empagliflozin 25 mg PO DAILY 3 months fenofibrate 54 mg PO DAILY ferrous sulfate 325 mg PO TID fluticasone propionate 50 mcg/actuation (Flonase Allergy Relief) 2 sprays intranasal BID PRN furosemide 40 mg PO BID 90 days insulin glargine (Basaglar KwikPen U-100 Insulin) 15 units (0.15 mL) subcut QPM lancets (FreeStyle Lancets) TEST FOUR TIMES A DAY OR DIRECTED. metformin 1,000 mg PO BID miscellaneous medical supply 1 large blood pressure cuff multivitamin 1 tab PO DAILY omega-3 fatty acids-fish oil 684-1,200 mg 1 cap PO DAILY pen needle, diabetic (BD Toshia 2nd Gen Pen Needle) USE FOUR TIMES A DAY OR DIRECTED. sodium polystyrene sulfonate 30 grams PO QWEEK valsartan 160 mg PO BID 90 days zinc acetate 50 mg (2 x 25 mg (zinc)) PO BID 3 months Tobacco use date assessed: 08/23/24 Dental Screening Dental Screen Date: 07/18/24 Did you have a dental visit in the last 12 months?: No Did you have a dental problem in the last 6 months where you did not have access to dental care?: No Was dental information given to patient?: Patient has dentist HPI HPI Comments History of Present Illness Details 54-year-old male presents for an extende d physical exam. He admits to taking his medications as prescribed without adverse reactions. Acute issue(s) - None Past Medical History - HTN, DM, CKD, CHF, obesity, and NANCY o n CPAP Social History - Former smoker. Does not vape. Drinks 4 -6 packs of beers every Thursday. Smokes a jont of cannabis on Saturdays - Has been making healthy dietary choice s. Walk regularly. Generally sleep well Health maintenance - Last eye exam was the end of 2023, unk nown provider/practice. He will sign a consent for his PCP to obtain his ophthalmology record - Last dental visit was 4-5 years ago; encouraged to schedule an appointment with his dentist for routine dental care - He does not think he has had a tetanus vaccine; received Tdap vaccine today - He notes that he was vaccinated for sh ingles and pneumonia - He states that he was vaccinated for t he flu last season - Last colonoscopy was in 01/25/2024: [facility] [place] Cardiology, Nephrology, sleep medicine, and Hematology [facility] Medical History CKD (chronic kidney disease) stage 3, GFR 30-59 ml/min Sleep apnea Chronic heart failure with preserved ejection fraction (HFpEF) Elevated cholesterol Iron deficiency anemia Chronic renal insufficiency Diabetic nephropathy Acute heart failure with preserved ejection fraction (HFpEF) Necrotizing subcutaneous infection Hypertension Type 2 diabetes Surgical History History of pyloromyotomy Status post incision and drainage [place] teeth removed Family History (Updated 09/13/24 @ 09:36 by Latasha Blanco MA) Mother Diabetes Maternal Uncle Diabetes Sister Multiple sclerosis Father Liver failure Kidney failure Social History Household Members: Spouse Both parents involved: No Caregiver staying overnight: No Housing: House Are you a primary healthcare interpreter to a significant other at home: No Do you presently have visiting nurse or other home services: No 75 years or older and lives alone: No Alcohol intake: current Alcohol intake frequency: a few times a week Alcohol type: beer Patient Tobacco Use Status: Former Tobacco user Tobacco use type: Cigarette Years Smoked: 4 e-Cigarette/Vaping Use: Never Used Second Hand Smoke Exposure: Yes Substance Use Type: Marijuana Advance Directives Date on File: 05/07/23 service: No Current occupational status: employed Current occupation: [employer] Cognitive needs: No Hearing needs: No Vision needs: No Questionnaire PHQ-9 Over the last 2 weeks, how often have you been bothered by any of the following problems? 1. Little interest or pleasure in doing things: several days 2. Feeling down, depressed, or hopeless: several days 3. Trouble falling or staying asleep, or sleeping too much: not at all 4. Feeling tired or having little energy: several days 5. Poor appetite or overeating: not at all 6. Feeling bad about yourself - or that you are a failure or have let yourself or your family down: several days 7. Trouble concentrating on things, such as reading the newspaper or watching television: not at all 8. Moving or speaking so slowly that other people could have noticed. Or the opposite - being so fidgety or restless that you have been moving around a lot more than usual: not at all 9. Thoughts that you would be better off or of hurting yourself in some way: not at all Total score: 4 Depression Screening Interpretation: Negative Depression Screening Done: Yes 17972 - PHQ-9 Billing: Yes Source: Developed by Drs. Higinio Rodriguez, Olivia Rayo, Edilberto Freeman and colleagues, with an educational smitha from [employer] Thrive Questionnaire Date Thrive assessed: 09/13/24 I am a: Patient What is your living situation today?: I have a steady place to live Within the past 12 months, did the food you bought not last and you didn't have the money to get more?: Sometimes True Within the past 12 months, did you worry whether your food would run out before you got money to buy more?: Sometimes True Do you have trouble paying for medicines?: Yes Do you have trouble getting transportation to medical appointments?: No Do you have trouble paying your heating and electricity bill?: Yes Do you have trouble taking care of your child, family member or friend?: No Do you have trouble with day-to-day activities such as bathing, preparing meals, shopping, managing finances, etc.?: No Are you currently unemployed and looking for a job?: No Are you interested in more education?: I choose not to answer this question Currently or been in a relationship where the following occur: No concerns reported THRIVE Score: 3 AUDIT C Alcohol Use Questionnaire (AUDIT-C) 1. How often do you have a drink containing alcohol?: 2-4 times a month 2. How many drinks containing alcohol do you have on a typical day when you are drinking?: 5 or 6 3. How often do you have six or more drinks on one occasion?: Weekly Total Score: 7 Score Reviewed/Action Taken: Yes UTE-7 AMB Questionnaire UTE-7 Date UTE - 7 assessed: 09/13/24 Feeling nervous, anxious, or on edge: 2 = More than half the days Not being able to stop or control worryin = More than half the days Worrying too much about different things: 1 = Several days Trouble relaxin = Several days Being so restless that it is hard to sit still: 1 = Several days Becoming easily annoyed or irritable: 1 = Several days Feeling afraid as if something awful might happen: 1 = Several days Total UTE-7 score (0-4 normal; 5-9 mild; 10-14 moderate; 15-21 severe): 9 Source: Developed by Drs. Higinio Rodriguez, Olivia Rayo, Edilberto Freeman and colleagues, with an educational smitha from [employer] UTE-7 Assessment Billing UTE-7 Assessment Tool: UTE-7 Assessment 76129 Review of Systems Const Details: Denies chills, Denies fatigue, Denies fever(s), Denies headache(s) and Denies weakness HEENT Denies change in vision, Denies dizziness, Denies headache(s), Denies hearing loss, Denies nasal congestion, Denies sinus pain, Denies sinus pressure and Denies sore throat Card Denies chest pain, Denies lightheadedness, Denies dyspnea and Denies other (palpitations) Resp Denies cough, Denies dyspnea and Denies wheezing GI Denies abdominal pain, Denies melena, Denies hematochezia, Denies change in bowel habits, Denies dyspepsia and Denies nausea Denies hematuria and Denies dysuria Musc Denies abnormal gait, Denies myalgias, Denies arthralgias, Denies numbness and Denies tingling Skin/Breast Denies rash, Denies unusual bruising and Denies wounds Neuro Denies abnormal gait, Denies dizziness, Denies headache(s), Denies memory loss, Denies numbness, Denies Sensory deficit (Neuro), Denies tingling and Denies weakness Psych Denies anxiety, Denies depression and Denies memory loss Endo Denies cold intolerance, Denies fatigue, Denies heat intolerance, Denies polydipsia and Denies polyuria [place]/Lymph Denies easy bleeding and Denies easy bruising Aller/Immun Denies wheezing Physical exam (Primary Care) Vital Signs: Last Vital Signs Temp 97.9 F 09/13/24 09:36 Pulse 68 09/13/24 09:36 Resp 16 09/13/24 09:36 BP 126/64 09/13/24 10:18 Pulse Ox 98 09/13/24 09:36 Oxygen Delivery Method Room Air 09/13/24 09:36 BMI result Body Mass Index 37.6 Tobacco/Smoking Status: Tobacco use Status Tobacco use date assessed 08/23/24 09/13/24 09:32 Patient Tobacco Use Status Former Tobacco user 09/13/24 09:32 Tobacco use type Cigarette 09/13/24 09:32 e-Cigarette/Vaping Use Never Used 09/13/24 09:32 PHQ-9: PHQ-9 Score PHQ-9: Total score 4 09/13/24 10:32 Depression Screening Interpretation: Negative Thrive Assessment: Date of Thrive Assessment Date Thrive assessed 09/13/24 09/13/24 09:34 Currently or been in a relationship where the following occur: No concerns reported Const Other: General: no acute distress, well developed, alert and awake Nutritional Appearance: well nourished Orientation/consciousness: patient oriented x3 HENMT Head: Yes normocephalic and Yes atraumatic Ears: hearing grossly normal bilaterally and TM's normal bilaterally General nose exam: Normal external nose present and Normal nares present Mouth: Normal oral and palatal mucosa present and moist mucous membranes Teeth and gingiva: dentition normal Throat: Yes oropharynx normal Eyes Pupils: Equal, round and reactive pupils present and Pupil accommodation reflex normal EOM: EOMs intact bilaterally Neck Neck: Yes normal visual inspection, Yes no lymphadenopathy and Yes trachea midline Thyroid: Thyroid normal Carotids: no bruits Lymphatic: no lymphadenopathy noted Chest Chest palpation & inspection: normal inspection of the chest Resp Effort & Inspection: normal respiratory effort Auscultation: clear to auscultation bilaterally Cardio Rate: regular rate Rhythm: regular rhythm Heart sounds: S1 normal heart sound present, S2 normal heart sound present, no gallops, no murmurs and no rubs Bruits: no abdominal aortic bruits and no carotid bruits GI Palpation (GI): No Abdominal aortic bruit present, Soft to palpation, nontender, No hepatosplenomegaly present and No Rebound tenderness present Auscultation: normal bowel sounds General: Yes no CVA tenderness Back/Spine/Pelvis Back: no CVA tenderness Cervical Spine: cervical ROM normal and No Cervical spine tenderness Thoracic/Lumbar Spine: thoraco-lumbar ROM normal, No pain with thoraco-lumbar ROM, No thoracic spinal tenderness and No lumbar spinal tenderness Skin General: warm and dry. Normal skin color. Normal skin turgor Lesions: no lesions Rashes: no rashes Trauma: no lacerations or abrasions Wounds: no wounds Nails: normal Neuro General: patient oriented x3, gait normal and CN's II-XI intact bilaterally Cranial nerves: Yes Equal, round and reactive pupils present Cognition (Neuro): normal cognition Gait exam (Neuro): Normal gait present Motor exam (neuro): 5/5 motor strength present throughout Sensory Exam: No Sensory deficit (Neuro) Deep tendon reflexes (DTR's): Right patellar reflex intensity grade: 2+ and Left patellar reflex intensity grade: 2+ Extrem General: Yes normal to inspection, No edema and No calf tenderness Psych Appearance: grossly normal Affect: normal affect Attitude: cooperative Thought process: Normal thought process present Immunizations Boostrix Tdap 2.5 Lf unit-8 mcg-5 Lf/0.5 mL intramuscular syringe Performing Provider: Quique Tatum CNP Performing Location: [facility] [place] Family Medicine Administered by: Licha Otero RN on 09/13/24 10:32 Dose Route Admin Location Dispensed Lot Number Expiration Date [facility] Still Operator Helper 0.5 mL IM Right Deltoid 0.5 mL [id number] 12/20/26 [id number] [email or web address] VIS Given Date VIS Provided VIS Publication Date 09/13/24 Single Vaccine 20 Eligibility Eligibility Date Funding Source Not [facility] Eligible 09/13/24 Private Coding Level of Care Code Est Pt Prev Care 40-64y(77636) Diagnoses Normal physical examination, routine Z00.00 Primary hypertension I10 Hypertension type: primary hypertension Obesity (BMI 30-39.9) E66.9 Additional Codes UTE-7 Assessment Billing - UTE-7 Assessment Tool: UTE-7 Assessment 64995 ([id number]) PHQ-9 - 28043 - PHQ-9 Billing: Yes ([id number]) Assessment & Plan Assessment & Plan (1) Normal physical examination, routine: Code(s): Z00.00 - Encounter for general adult medical examination without abnormal findings Category: Medical Plan: No significant functional limitation noted. Continue current treatment regimen. Encouraged to cut down on his alcohol intake. No more than two drinks daily or 5 drinks weekly. Follow-up in 2-3 weeks for diabetes. Return sooner with symptoms or concerns. Verbalized understanding and agreed with the plan. (2) Hypertension: Code(s): I10 - Essential (primary) hypertension Category: Medical Qualifiers: Hypertension type: primary hypertension Qualified Code(s): I10 - Essential (primary) hypertension Plan: Resting blood pressure is 126/64, within goal of less than 130/80. Continue current treatment regimen. Will continue to monitor. Verbalized understanding and agreed with the plan. (3) Obesity (BMI 30-39.9): Code(s): E66.9 - Obesity, unspecified Category: Medical Plan: He currently weighs 247 lb, BMI is 37.6. Declines referral to waiter/waitress tavern/dietitian or weight management clinic at this time and notes that he will continue to make lifestyle changes. Healthy diet and routine exercise encouraged. Follow-up as needed. Verbalized understanding and agreed with the plan. Orders: Orders TDaP Immunization Today Z23 - Encounter for immunization
[2024-09-13 09:36] VITALS: BP 141/63; PULSE 68; RESP 16; TEMP 36.6; O2SAT 98; BMI 37.6
--- OUTSIDE RECORDS SUMMARY | 2024-09-13 10:00 | XMS_ITS ---
Author Organization [facility] Address [address] [place] [address] Care Team Providers Care Gas Fitter Helper Name Role Phone Rc Sy.Quique Bhatt Primary Care Provider Higinio Mcmahon Unavailable [phone] Velia Siddiqui Unavailable Unavailable REASON FOR VISIT screening Problems Problem Type SNOMED Code ICD Code Onset Dates Problem Status W/U Status Risk Notes Problem Diverticulosis o f large intestine without perforation or abscess without bleeding (K57.30) Active confirmed Encounters Encounter Location Date Provider Diagnosis [facility] [place] [address] [phone] 01/25/2024 Higinio Zhang Colon cancer scree shanthi [...] * SOO FONSECA:[birth year] (54 yo M)Acc No.[id number]:01/25/2024 COLON WITH MAC Patient:?JORGE FONSECA Provider:?Higinio Zhang MD :1970???Age:53 Y???Sex:Male Selvin e:01/25/2024 Address:[address] [place], [place] [id number] Pcp:Quique Tatum N.P. Subjective: * Chief Complaints: * ???1. Screening. * Medical History:? Objective: * Vitals:? Assessment: * Assessment: 1.?Colon cancer screening - Z12.11 (Primary)???2.?Colon polyp - K63.5???3.?Diverticulosis of large intestine without perforation or abscess without bleeding - K57.30???4.?Other hemorrhoids - K64.8??? Plan: * Treatment: * Procedure Codes:?28225 LESIO N REMOVAL COLONOSCOPY, Modifiers: 33 * * The named appointment provid er may or may not be the originator of this progress note, and it is not deemed complete until electronically signed by the appointment provider. Sign off status: Pending * Provider:?Higinio Zhang MD Date:? 024 Generated for Nikkie kelley/Steven/eTransmitting on:?09/13/2024 10:00 AM EDT
--- OUTSIDE RECORDS SUMMARY | 2024-09-13 10:00 | XMS_ITS ---
Author Organization [facility] Address [address] [place] [address] Care Team Providers Care Public Administration Teacher Name Role Phone Quique Tatum N.P. Primary Care Provider Higinio Mcmahon Unavailable [phone] Velia Siddiqui Unavailable Unavailable Allergies No Known [...] MCG (1999 UT) Oral for 90 Active [place] 3 Active Zinc Active Multivitamin Active Social [...] Status Risk Notes Problem Colon cancer screening (Z12.11) Active confirmed Problem Pre-procedure evaluation check (105578594) Encounter for other preprocedural examination (Z01.818) Active confirmed Vital Signs Blood pressure systolic 00 mm Hg 10/01/19 24 Blood pressure diastolic 00 mm Hg 024 Height 5 ft 8 in in 10/01/2023 Weight 240 lbs 10/01/2023 BMI 36.49 kg/m2 10/01/2023 Encounters Encounter Location Date Provider Diagnosis [facility] [address] [place] [address] 10/01/2023 Higinio Zhang Colon cancer screeni ng [...] * RIVER FONSECADOB:[birth year] (53 yo M)Acc No.[id number]:10/01/2023 Progress Notes Patient:?RIVER FONSECA Provider:?Higinio Zhang MD :1970???Age:53 Y???Sex:Male Selvin e:10/01/2023 Address:[address] [place], [place] [id number] Pcp:Quique Tatum N.P. Subjective: * Chief Complaints: [...] joints?denies.?Weakness?denies.?Skin:?Itching?denies.?Rash?denies.?Neurologic:?Headache?denies.?Seizures?denies.?Psychiatric:?Comments?all negative.? * Medical History:? * Surgical History:?[place] th Perirectal abscess -Dr. Valverde--in hospital [...] Single/ long time girlfriend. 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 ???Smokes marijuana; occ alcohol on the weekends. [...] and reconciled with the patientTaking Zinc Taking [place] 3 Taking Multivitamin Taking Fluticasone Propionate 93 MCG/ACT Exhaler Suspension 2 sprays (1 spray in each nostril) Nasally Twice a dayTaking Vitamin D3 50 MCG (2000 UT) Capsule Oral Taking Furosemide 40 MG [...] Procedure Codes:?3017F COLOR ECTAL CA SCREEN DOC [id number] TOBACCO NON-LWVYD0871 BP SCR NOT PRFRM REC REASON NOS * Preventive Medicine:? ??Counseling:?Care goal follow-up plan:?Above Normal BMI Follow-up?Giving encouragement to exercise,?BMI management provided?Yes.? * Follow Up:?prn * * Sign off status: Completed true * Provider:?Higinio Zhang MD Date:? 024 Generated for Nikkie kelley/Steven/Felixitting on:?09/13/2024 10:00 AM EDT History and Physical Notes * [...]
--- OUTSIDE RECORDS SUMMARY | 2024-09-13 10:01 | XMS_ITS | Patient Health Record ---
Author Organization [facility] Address [address] [place] [address] Care Team Providers Care Electric Shovel Operator Name Role Phone Quique Tatum N.P. Primary Care Provider Higinio Mcmahon Unavailable [phone] Velia Siddiqui Unavailable Unavailable Allergies No Known Allergies Results Component Value Reference Range Notes Glucose, Whole Blood Reviewed date:01/25/2024 06:13:15 PM Interpretation: Performing Lab:[facility], [address] [place] [phone] Notes/Report: Glucose, Whole Blood 162 60-115 mg/dL METER # : [id number] Pathology (Not yet reviewed by provider) Interpretation: Performing Lab:[facility], [address] [place] [phone] Notes/Report: ----- Name: FonsecaFilomena Age/Sex: 53/M : 1970 Unit#: [id number] Attend Dr: Higinio Zhang MD Re01/25/24 [place] : [facility] [place] [facility] Disch: ----- SPEC : [id number] RECD : 01/25/24-110 STATUS: CASSANDRA RODRIGUEZ NUM: [id number] VALENTE: 01/25/24-[address] [facility] [address]: Higinio Zhang MD ENTERED: 01/25/24- 13 [...] microscopic examination, 1 piece in cassette [facility] Copies To: Quique Tatum CNP [facility] [address] [place] [address] [email or web address] CONTINUED ON NEXT PAGE ----- Name: Filomena Fonseca Age/Sex: 53/M : 1970 Unit#: [id number] Attend Dr: Higinio Zhang MD Re01/25/24 Status : [facility] Location: [facility] Disch: ----- SPEC : [id number] REC -1100 STATUS: CASSANDRA RE NUM: [id number] VALENTE: 01/25/24-[address] [facility] [address]: Higinio Zhang MD ENTERED: 01/25/24-11 13 SP TYPE: Surgical OTHR DR: Quique Tatum AIRLINE SECURITY REPRESENTATIVE ORDERED: MIGUEL A Stain/6, Lola Franks L4/2 Copies To: (Continued) Higinio Zhang MD [facility] [address] [place] [address] ----- Signed (signature on file) [...] Calcium 40 MG Oral for 90 Active [place] 3 Active Basaglar KwikPen 100 UNIT/ML Subcutaneous [...] Status Risk Notes Problem Colon cancer screening (081721634) Colon cancer screening (Z12.11) Active confirmed Problem Pre-procedure evaluation check (382020286) Encounter for other preprocedural examination (Z01.818) Active confirmed Problem Diverticular disease of colon (359071339) Diverticulosis of large intestine without perforation or abscess without bleeding (K57.30) Active confirmed Vital Signs Blood pressure diastolic 00 mm Hg 10/01/2023 Height 5 ft 8 in in 10/01/2023 Blood pressure systolic 00 mm Hg 10/01/2023 Weight 240 lbs 10/01/2023 BMI 36.49 kg/m2 10/01/2023 Encounters Encounter Location Date Provider Diagnosis [facility] [place] [address] [place], [place] [phone] 01/25/2024 Higinio Zhang Colon cancer screeni ng Z12.11 ; Colon polyp K63.5 ; Diverticulosis of large intestine without perforation or abscess without bleeding K57.30 and Other hemorrhoids K64.8 [facility] [address] [place] [address] 10/01/2023 Higinio Zhang Colon cancer screeni ng [...] Date Coverage End Date [employer] [id number] [place] [address] [id number] RIVER FONSECA Self - patient is the insured Medical (General) History Medical History History ICD Code Sleep apnea - CPAP machine 09/2023 DM Hypertension CKD stage 3 Anemia Hypercholesterolemia Denies IN,CVA,Lung disease Surgical History Surgery Date(Month/Year) [place] teeth Perirectal abscess -Dr. Valverde--in hos pital for about a week 02/2022
[2024-09-13 10:18] VITALS: BP 126/64
== END 2024-09-13 10:32 | disposition home or self-care (01) ==
PROVIDERS: PCP Nurse Practitioner Family; Visit Provider Nurse Practitioner Family
DX: Z00.00 Encounter for general adult medical examination without abnormal findings (principal); I10 Essential (primary) hypertension; E66.9 Obesity, unspecified; Z68.37 Body mass index [BMI] 37.0-37.9, adult; Z23 Encounter for immunization

== ENCOUNTER → 2024-09-13 09:16 | Outpatient (BNVA) | payer OTHER, SELFPAY | PROVIDERS: PCP Nurse Practitioner Family; Visit Provider Nurse Practitioner Family | DX: Z00.00 Encounter for general adult medical examination without abnormal findings (principal); E11.9 Type 2 diabetes mellitus without complications; I10 Essential (primary) hypertension; E66.9 Obesity, unspecified; Z23 Encounter for immunization; Z68.37 Body mass index [BMI] 37.0-37.9, adult; Z87.891 Personal history of nicotine dependence; Z79.899 Other long term (current) drug therapy | CPT/HCPCS: 90471; 90715; 96127 ==

== ENCOUNTER 2024-10-04 08:57 | Outpatient (AMB) | payer OTHER, SELFPAY ==
--- NOTE | 2024-10-04 09:00 | A.OFFPC_ITS ---
Vital Signs 10/04/24 09:04 Height 5 ft 8 in Weight 246 lb 6 oz BMI 37.5 BP 108/58 L Blood Pressure Location Rt brachial Position Sitting Respiration 16 Pulse 54 Pulse Source Pulse Oximeter Temp 97.7 F Temp Source Oral Pulse Oximetry (%) 100 Oxygen Delivery Method Room Air Intake Visit Reasons: 2-3 wks DM Intake Note: patient here for 2-3 wks follow up on DM Policy Writer Required: No Allergies No Known Allergies Allergy (Verified 10/04/24 09:27) Medication List - Last Reconciled 10/04/24 by Quique Tatum CNP atorvastatin 40 mg PO BEDTIME 30 days blood sugar diagnostic (FreeStyle Lite Strips) Test four times a day or as directed. blood-glucose meter (FreeStyle Lite Meter kit) As Directed carvedilol 12.5 mg PO BID 90 days cholecalciferol (vitamin D3) 50 mcg PO DAILY clonidine HCl 0.2 mg PO BID 90 days comp.stocking,knee,long,medium As directed empagliflozin 25 mg PO DAILY 3 months fenofibrate 54 mg PO DAILY ferrous sulfate 325 mg PO TID fluticasone propionate 50 mcg/actuation (Flonase Allergy Relief) 2 sprays intranasal BID PRN furosemide 40 mg PO BID 90 days insulin glargine (Basaglar KwikPen U-100 Insulin) 15 units (0.15 mL) subcut QPM lancets (FreeStyle Lancets) TEST FOUR TIMES A DAY OR DIRECTED. metformin 1,000 mg PO BID miscellaneous medical supply 1 large blood pressure cuff multivitamin 1 tab PO DAILY omega-3 fatty acids-fish oil 684-1,200 mg 1 cap PO DAILY pen needle, diabetic USE FOUR TIMES A DAY OR DIRECTED. sodium polystyrene sulfonate 30 grams PO QWEEK valsartan 160 mg PO BID 90 days zinc acetate 50 mg (2 x 25 mg (zinc)) PO BID 3 months Tobacco use date assessed: 10/04/24 Dental Screening Dental Screen Date: 10/04/24 Did you have a dental visit in the last 12 months?: No Did you have a dental problem in the last 6 months where you did not have access to dental care?: No Was dental information given to patient?: Patient has dentist HPI HPI Comments History of Present Illness Details 54-year-old male presents for diabetes f ollow-up. He admits to taking his medications as prescribed without adverse reactions. He notes that he has been making healthy lifestyle changes. He offers no complaints and denies acute symptoms at this time. His last eye appointment was with [facility] in 04/06/2024. Record not currently available. [facility] Medical History CKD (chronic kidney disease) stage 3, GFR 30-59 ml/min Sleep apnea Chronic heart failure with preserved ejection fraction (HFpEF) Elevated cholesterol Iron deficiency anemia Chronic renal insufficiency Diabetic nephropathy Acute heart failure with preserved ejection fraction (HFpEF) Necrotizing subcutaneous infection Hypertension Type 2 diabetes Surgical History History of pyloromyotomy Status post incision and drainage [place] teeth removed Family History (Updated 09/13/24 @ 09:36 by Latasha Blanco MA) Mother Diabetes Maternal Uncle Diabetes Sister Multiple sclerosis Father Liver failure Kidney failure Social History Household Members: Spouse Both parents involved: No Caregiver staying overnight: No Housing: House Are you a primary senior care manager to a significant other at home: No Do you presently have visiting nurse or other home services: No 75 years or older and lives alone: No Alcohol intake: current Alcohol intake frequency: a few times a week Alcohol type: beer Patient Tobacco Use Status: Former Tobacco user Tobacco use type: Cigarette Years Smoked: 4 e-Cigarette/Vaping Use: Never Used Second Hand Smoke Exposure: Yes Substance Use Type: Marijuana Advance Directives Date on File: 05/07/23 service: No Current occupational status: employed Current occupation: [employer] Cognitive needs: No Hearing needs: No Vision needs: No Questionnaire Thrive Questionnaire Date Thrive assessed: 06/13/24 I am a: Patient What is your living situation today?: I have a steady place to live Within the past 12 months, did the food you bought not last and you didn't have the money to get more?: Sometimes True Within the past 12 months, did you worry whether your food would run out before you got money to buy more?: Sometimes True Do you have trouble paying for medicines?: Yes Do you have trouble getting transportation to medical appointments?: No Do you have trouble paying your heating and electricity bill?: Yes Do you have trouble taking care of your child, family member or friend?: No Do you have trouble with day-to-day activities such as bathing, preparing meals, shopping, managing finances, etc.?: No Are you currently unemployed and looking for a job?: No Are you interested in more education?: I choose not to answer this question Currently or been in a relationship where the following occur: No concerns reported THRIVE Score: 3 UTE-7 AMB Questionnaire UTE-7 Date UTE - 7 assessed: 09/13/24 Source: Developed by Drs. Higinio Rodriguez, Olivia Rayo, Edilberto Freeman and colleagues, with an educational smitha from [employer]. Review of Systems Const Details: Const Denies chills, Denies fatigue, Denies fever(s), Denies headache(s) and Denies weakness ENT Denies dizziness and Denies headache(s) Card Denies chest pain, Denies lightheadedness, Denies dyspnea and Denies other (Palpitations) Resp Denies cough, Denies dyspnea, Denies wheezing and Denies other ( shortness of breath) GI Denies abdominal pain, Denies melena, Denies hematochezia, Denies change in bowel habits, Denies dyspepsia and Denies nausea Denies hematuria and Denies dysuria Musc Denies abnormal gait, Denies myalgias, Denies arthralgias, Denies numbness and Denies tingling Skin/Breast Denies rash, Denies unusual bruising and Denies wounds Neuro Denies abnormal gait, Denies dizziness, Denies headache(s), Denies memory loss, Denies numbness, Denies Sensory deficit (Neuro), Denies tingling and Denies weakness Psych Denies anxiety, Denies depression, Denies memory loss Endo Denies cold intolerance, Denies fatigue, Denies heat intolerance, Denies polydipsia and Denies polyuria Aller/Immun Denies wheezing Physical exam (Primary Care) Vital Signs: Last Vital Signs Temp 97.7 F 10/04/24 09:04 Pulse 54 10/04/24 09:04 Resp 16 10/04/24 09:04 BP 151/70 H 10/04/24 09:04 Pulse Ox 100 10/04/24 09:04 Oxygen Delivery Method Room Air 10/04/24 09:04 BMI result Body Mass Index 37.5 Tobacco/Smoking Status: Tobacco use Status Tobacco use date assessed 10/04/24 10/04/24 09:07 Patient Tobacco Use Status Former Tobacco user 10/04/24 09:07 Tobacco use type Cigarette 10/04/24 09:07 e-Cigarette/Vaping Use Never Used 10/04/24 09:07 Thrive Assessment: Date of Thrive Assessment Date Thrive assessed 06/13/24 10/04/24 09:07 Currently or been in a relationship where the following occur: No concerns reported Const Other: General: no acute distress and well developed Nutritional Appearance: well nourished Orientation/consciousness: patient oriented x3 HENMT Head: Yes normocephalic and Yes atraumatic Eyes General: appearance normal, both eyes and all related structures Pupils: Equal, round and reactive pupils present EOM: EOMs intact bilaterally Resp Effort & Inspection: normal respiratory effort Auscultation: clear to auscultation bilaterally Cardio Rate: regular rate Rhythm: regular rhythm Heart sounds: S1 normal heart sound present, S2 normal heart sound present, no gallops, no murmurs and no rubs GI Palpation (GI): No Abdominal aortic bruit present, Soft to palpation, nontender, No hepatosplenomegaly present and No Rebound tenderness present Auscultation: normal bowel sounds General: Yes no CVA tenderness Back/Spine/Pelvis Back: no CVA tenderness Cervical Spine: cervical ROM normal and No Cervical spine tenderness Thoracic/Lumbar Spine: thoraco-lumbar ROM normal, No pain with thoraco-lumbar ROM, No thoracic spinal tenderness and No lumbar spinal tenderness Extrem General: Yes normal to inspection, No edema and No calf tenderness Skin General: warm and dry. Normal skin color. Normal skin turgor Neuro General: patient oriented x3, gait normal and no focal neuro deficit Cranial nerves: Yes Equal, round and reactive pupils present Cognition (Neuro): normal cognition Gait exam (Neuro): Normal gait present Sensory Exam: No Sensory deficit (Neuro) Psych Appearance: grossly normal Affect: normal affect Attitude: cooperative Thought process: Normal thought process present Results AMB Hemoglobin A1c AMB Hemoglobin A1c 6.5 % Last Edit by Latasha Blanco MA on 10/04/24 09:32 Coding Level of Care Code Est Pt Level 3 (29616) Diagnoses Type 2 diabetes mellitus without complication, with long-term current use of insulin E11.9; Z79.4 Diabetes mellitus longterm insulin use: with athletic equipment manager use Diabetes mellitus complication status: without complication Primary hypertension I10 Hypertension type: primary hypertension Assessment & Plan Assessment & Plan (1) Type 2 diabetes: Code(s): E11.9 - Type 2 diabetes mellitus without complications Category: Medical Qualifiers: Diabetes mellitus longterm insulin use: with athletic equipment manager use Diabetes mellitus complication status: without complication Qualified Code(s): E11.9 - Type 2 diabetes mellitus without complications; Z79.4 - senior care manager (current) use of insulin Plan: A1c today is 6.5%, within goal of less than 7.0%. Previous A1c was 6.5%. Continue current treatment regimen. ADA diet and routine exercise encouraged. His last eye exam was in March 2024; record not currently available. He will sign a release for his PCP to obtain is ophthalmology record. Advised to call and schedule his next eye exam. Will recheck A1c in 3 months. Verbalized understanding and agreed with the plan. (2) Hypertension: Code(s): I10 - Essential (primary) hypertension Category: Medical Qualifiers: Hypertension type: primary hypertension Qualified Code(s): I10 - Essential (primary) hypertension Plan: Resting blood pressure is 108/58, within goal of less than 130/80. Will decrease furosemide to 40 mg daily; advised to take as prescribed. Continue to take losartan, carvedilol, and clonidine as prescribed. Reports symptoms of lightheadedness/dizziness, headache, or visual disturbances. Follow-up in 1 month or sooner with worsening or sooner with symptoms or concerns. Verbalized understanding and agreed with the plan. Orders: Orders AMB Hemoglobin A1c Today Z13.9 - Encounter for screening, unspecified Medications: Changed From furosemide 40 mg PO BID 90 days 180 tabs 1RF To furosemide 40 mg PO DAILY 90 days 90 tabs 1RF
[2024-10-04 09:04] VITALS: BP 108/58; PULSE 54; RESP 16; TEMP 36.5; O2SAT 100; BMI 37.5
--- OUTSIDE RECORDS SUMMARY | 2024-10-04 09:33 | XMS_ITS ---
Author Organization [facility] Address [address] [place] [address] Care Team Providers Care Sodium Methylate Operator Name Role Phone Quique Tatum N.P. Primary Care Provider Higinio Mcmahon Unavailable [phone] Velia Siddiqui Unavailable Unavailable Allergies No Known [...] MCG (2000 UT) Oral for 90 Active [place] 3 Active Zinc Active Multivitamin Active Social [...] Status Risk Notes Problem Colon cancer screening (722232426) Colon cancer screening (Z12.11) Active confirmed Problem Pre-procedure evaluation check (292012591) Encounter for other preprocedural examination (Z01.818) Active confirmed Vital Signs Blood pressure systolic 00 mm Hg 10/01/19 24 Blood pressure diastolic 00 mm Hg 024 Height 5 ft 8 in in 10/01/2023 Weight 240 lbs 10/01/2023 BMI 36.49 kg/m2 10/01/2023 Encounters Encounter Location Date Provider Diagnosis [facility] [address] [place] [address] 10/01/2023 Higinio Zhang Colon cancer screeni ng [...] * RIVER FONSECADOB:[birth year] (53 yo M)Acc No.[id number]:10/01/2023 Progress Notes Patient:?RIVER FONSECA Provider:?Higinio Zhang MD :1970???Age:53 Y???Sex:Male Selvin e:10/01/2023 Address:[address] [place], [place] [phone] Pcp:Quique Tatum N.P. Subjective: * Chief Complaints: [...] Single/ long time girlfriend. 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 ???Smokes marijuana; occ alcohol on the weekends. [...] and reconciled with the patientTaking Zinc Taking [place] 3 Taking Multivitamin Taking Fluticasone Propionate 93 [...] Procedure Codes:?3017F COLOR ECTAL CA SCREEN DOC [id number] TOBACCO NON-PMFMN1705 BP SCR NOT PRFRM REC REASON NOS * Preventive Medicine:? ??Counseling:?Care goal follow-up plan:?Above Normal BMI Follow-up?Giving encouragement to exercise,?BMI management provided?Yes.? * Follow Up:?prn * * Sign off status: Completed true * Provider:?Higinio Zhang MD Date:? 024 Generated for Nikkie kelley/Steven/Omkar on:?10/04/2024 09:32 AM EDT History and Physical Notes * [...]
== END 2024-10-04 09:39 | disposition home or self-care (01) ==
LOC: HO.HMCFM 08:58
PROVIDERS: PCP Nurse Practitioner Family; Visit Provider Nurse Practitioner Family
DX: E11.9 Type 2 diabetes mellitus without complications (principal); Z79.4 Long term (current) use of insulin; I10 Essential (primary) hypertension; Z13.9 Encounter for screening, unspecified

== ENCOUNTER → 2024-10-04 08:57 | Outpatient (BNVA) | payer OTHER, SELFPAY | PROVIDERS: PCP Nurse Practitioner Family; Visit Provider Nurse Practitioner Family | DX: E11.9 Type 2 diabetes mellitus without complications (principal); I10 Essential (primary) hypertension; Z79.4 Long term (current) use of insulin; Z79.899 Other long term (current) drug therapy | CPT/HCPCS: 83036 ==

== ENCOUNTER 2024-10-18 08:12 | Outpatient (REF) | payer OTHER, SELFPAY ==
--- OUTSIDE RECORDS SUMMARY | 2024-01-25 05:30 | XMS_ITS ---
Author Organization [facility] Address [address] [place] [address] Care Team Providers Care Ordnance Engineer Name Role Phone Quique Tatum N.P. Primary Care Provider Higinio Mcmahon Unavailable [phone] Velia Siddiqui Unavailable Unavailable REASON FOR VISIT screening Problems Problem Type SNOMED Code ICD Code Onset Dates Problem Status W/U Status Risk Notes Problem Diverticular disease of colon (588230880) Diverticulosis of large intestine without perforation or abscess without bleeding (K57.30) Active confirmed Encounters Encounter Location Date Provider Diagnosis [facility] [place] [address] [place] [phone] 01/25/2024 Higinio Zhang Colon cancer scree shanthi [...] * SOO FONSECA:[birth year] (54 yo M)Acc No.[id number]:01/25/2024 COLON WITH MAC Patient: JORGE DURANT Provider: Nicanor Zhang MD :1970 A ge:53 Y S ex:Male Date:01/25/2024 Address:[address] [place] [address] , [facility] Pcp:Quique Tatum N.P. Subjective: * Chief Complaints: [...] 0 01/25/2024 Generated for Nikkie kelley/Steven/Franciscosmitting on: 0 10/18/2024 08:18 AM EDT
[2024-10-18 09:07] LABS: Anion Gap 13 (12-20); Blood Urea Nitrogen 38 mg/dL (9-16); Carbon Dioxide 21 mmol/L (22-29); Chloride 108 mmol/L (96-108); Estimated Glomerular Filt Rate 32; Potassium 5.4 mmol/L (3.3-5.1); Sodium 137 mmol/L (135-145)
[2024-10-18 09:41] LABS: Creatinine Urine 76.82 mg/dL
[2024-10-18 09:51] LABS: Protein/Creatinine Ratio, Ur 7.32 (<0.2); Total Protein Urine Random 562 mg/dL (<12)
== END 2024-10-18 08:13 | disposition home or self-care (01) ==
LOC: HO.LAB 08:12
PROVIDERS: PCP Nurse Practitioner Family; Visit Provider Internal Medicine Nephrology
DX: E11.22 Type 2 diabetes mellitus with diabetic chronic kidney disease (principal); N18.30 Chronic kidney disease, stage 3 unspecified; E11.21 Type 2 diabetes mellitus with diabetic nephropathy
CPT/HCPCS: 36415; 80051; 82565; 82570; 84156; 84520

== ENCOUNTER 2024-10-21 14:43 | Outpatient (AMB) | payer OTHER, SELFPAY ==
--- OUTSIDE RECORDS SUMMARY | 2024-01-25 05:30 | XMS_ITS ---
Author Organization [facility] Address [address] [place] [address] Care Team Providers Care District Agent Name Role Phone Quique Tatum N.P. Primary Care Provider Higinio Mcmahon Unavailable [phone] Velia Siddiqui Unavailable Unavailable REASON FOR VISIT screening Problems Problem Type SNOMED Code ICD Code Onset Dates Problem Status W/U Status Risk Notes Problem Diverticular disease of colon (635964372) Diverticulosis of large intestine without perforation or abscess without bleeding (K57.30) Active confirmed Encounters Encounter Location Date Provider Diagnosis [facility] [place] Outpatient [address] [place] [phone] 01/25/2024 Higinio Zhang Colon cancer scree shanthi [...] * SOO FONSECA:[birth year] (54 yo M)Acc No.[id number]:01/25/2024 COLON WITH MAC Patient: OJRGE DURANT Provider: Nicanor Zhang MD :1970 A ge:53 Y S ex:Male Date:01/25/2024 Address:[address] [place] [address] , [facility] Pcp:Quique Tatum N.P. Subjective: * Chief Complaints: [...] 0 01/25/2024 Generated for Nikkie kelley/Steven/Nickransmitting on: 10/21/2024 03:00 PM EDT
[2024-10-21 15:12] VITALS: BP 172/70; PULSE 64; O2SAT 97; BMI 37.7
--- NOTE | 2024-10-21 15:12 | HO.NEPHOV ---
Vital Signs 10/21/24 15:12 Height 5 ft 8 in Weight 248 lb BMI 37.7 BP 172/70 H Blood Pressure Location Rt brachial Position Sitting Pulse 64 Pulse Source Pulse Oximeter Pulse Oximetry (%) 97 Oxygen Delivery Method Room Air Intake Visit Reasons: 3 MO FU-LVM Intake Note: Patient here for a follow-up. 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 He is diabetic and hypertensive with proteinuria. He recently had diastolic heart failure. His serum potassium has been recently high normal. He had been on angiotensin receptor leslie. His BMI has been high. He has been having an open wound on the toe which had been healing. He thinks he may have osteomyelitis and is going to see wound care. He denies any active chest pain, shortness of breath, paroxysmal nocturnal dyspnea, orthopnea, joint swellings, epistaxis, sinusitis, skin rashes, history of renal artery stenosis, history of carotid stenosis, large, vomiting, diarrhea, hematuria. He has been taking Jardiance [facility] Medical History CKD (chronic kidney disease) stage 3, GFR 30-59 ml/min Sleep apnea Chronic heart failure with preserved ejection fraction (HFpEF) Elevated cholesterol Iron deficiency anemia Chronic renal insufficiency Diabetic nephropathy Acute heart failure with preserved ejection fraction (HFpEF) Necrotizing subcutaneous infection Hypertension Type 2 diabetes Surgical History History of pyloromyotomy Status post incision and drainage [place] teeth removed Family History Mother Diabetes Maternal Uncle Diabetes Sister Multiple sclerosis Father Liver failure Kidney failure Social History Household Members: Spouse Both parents involved: No Caregiver staying overnight: No Housing: House Are you a primary wound care coordinator to a significant other at home: No Do you presently have visiting nurse or other home services: No 75 years or older and lives alone: No Alcohol intake: current Alcohol intake frequency: a few times a week Alcohol type: beer Patient Tobacco Use Status: Former Tobacco user Tobacco use type: Cigarette Years Smoked: 4 e-Cigarette/Vaping Use: Never Used Second Hand Smoke Exposure: Yes Substance Use Type: Marijuana Advance Directives Date on File: 05/07/23 service: No Current occupational status: employed Current occupation: [employer] Cognitive needs: No Hearing needs: No Vision needs: No Review of Systems Const All systems reviewed & are unremarkable except as noted in HPI and below Physical Exam Vital Signs: Last Vital Signs Pulse 64 10/21/24 15:12 BP 172/70 H 10/21/24 15:12 Pulse Ox 97 10/21/24 15:12 Oxygen Delivery Method Room Air 10/21/24 15:12 BMI result Body Mass Index 37.7 Const General: comfortable and no acute distress Orientation/consciousness: patient oriented x3 HEENT Head: Yes normocephalic Mouth: Normal oral and palatal mucosa present Eyes EOM: EOMs intact bilaterally Neck Neck: Yes supple Resp Auscultation: clear to auscultation bilaterally Cardio Jugular venous distension: no JVD Rate: regular rate GI Palpation (GI): Soft to palpation Auscultation: normal bowel sounds General: Yes no CVA tenderness Back/Spine/Pelvis Back: no CVA tenderness Skin General skin exam: no rashes or lesions noted Neuro General: patient oriented x3 and moves all extremities Extrem General: Yes no pedal edema Results Reviewed Nephrology Results: Sodium, (135-145) 137 mmol/L 10/18/24 Potassium, (3.3-5.1) 5.4 mmol/L H 10/18/24 Chloride, (96-108) 108 mmol/L 10/18/24 Carbon Dioxide, (22-29) 21 mmol/L L 10/18/24 BUN, (9-16) 38 mg/dL H 10/18/24 Creatinine, (0.5-1.4) 2.19 mg/dL H 10/18/24 Urine Creatinine 76.82 mg/dL 10/18/24 Protein/Creatinin Ratio, (<0.2) 7.32 H 10/18/24 Renal US 06/04/23 Assessment & Plan Assessment & Plan (1) Hypertension: Code(s): I10 - Essential (primary) hypertension Category: Medical Qualifiers: Hypertension type: primary hypertension Qualified Code(s): I10 - Essential (primary) hypertension (2) CKD stage 3 due to type 2 diabetes mellitus: Code(s): E11.22 - Type 2 diabetes mellitus with diabetic chronic kidney disease; N18.30 - Chronic kidney disease, stage 3 unspecified Category: Medical (3) Diabetic nephropathy: Code(s): E11.21 - Type 2 diabetes mellitus with diabetic nephropathy Category: Medical Qualifiers: Diabetes mellitus type: type 2 Qualified Code(s): E11.21 - Type 2 diabetes mellitus with diabetic nephropathy (4) High potassium: Code(s): E87.5 - Hyperkalemia Category: Medical Plan River has 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 He has obesity. He has underlying diabetic nephropathy. He has H/O decompensated diastolic heart failure. His urine output is good. C/W valsartan 160 mg bid. He should continue K lowering medication thrice a week. He should continue Jardiance 25 mg daily. He is on fenofibrate. His renal USS was unremarkable. He did not have a renal biopsy yet. He was counseled to maintain good blood pressure and good blood sugar control. He may need more BP medications to keep it at goal. All these have been discussed in detail. Further management is pending evolving data. All questions answered. Follow-up appointment given Orders: Orders Creatinine Today E11.21 - Type 2 diabetes mellitus with diabetic nephropathy, E11.22 - Type 2 diabetes mellitus with diabetic chronic kidney disease, E87.5 - Hyperkalemia, I10 - Essential (primary) hypertension, N18.30 - Chronic kidney disease, stage 3 unspecified Electrolytes Today E11.21 - Type 2 diabetes mellitus with diabetic nephropathy, E11.22 - Type 2 diabetes mellitus with diabetic chronic kidney disease, E87.5 - Hyperkalemia, I10 - Essential (primary) hypertension, N18.30 - Chronic kidney disease, stage 3 unspecified Protein, 24 Hr Urine Group Today E11.21 - Type 2 diabetes mellitus with diabetic nephropathy, E11.22 - Type 2 diabetes mellitus with diabetic chronic kidney disease, E87.5 - Hyperkalemia, I10 - Essential (primary) hypertension, N18.30 - Chronic kidney disease, stage 3 unspecified Blood Urea Nitrogen Today E11.21 - Type 2 diabetes mellitus with diabetic nephropathy, E11.22 - Type 2 diabetes mellitus with diabetic chronic kidney disease, E87.5 - Hyperkalemia, I10 - Essential (primary) hypertension, N18.30 - Chronic kidney disease, stage 3 unspecified Coding Level of Care Code Est Pt Level 4 (26330) Diagnoses Primary hypertension I10 Hypertension type: primary hypertension CKD stage 3 due to type 2 diabetes mellitus E11.22; N18.30 Diabetic nephropathy associated with type 2 diabetes mellitus E11.21 Diabetes mellitus type: type 2 High potassium E87.5
== END 2024-10-21 15:40 | disposition home or self-care (01) ==
LOC: HO.HKA 14:44
PROVIDERS: PCP Nurse Practitioner Family; Visit Provider Internal Medicine Nephrology
DX: I10 Essential (primary) hypertension (principal); E11.22 Type 2 diabetes mellitus with diabetic chronic kidney disease; N18.30 Chronic kidney disease, stage 3 unspecified; E11.21 Type 2 diabetes mellitus with diabetic nephropathy; E87.5 Hyperkalemia
CPT/HCPCS: 99214

== ENCOUNTER 2024-10-24 10:18 | Outpatient (REF) | payer OTHER, SELFPAY ==
--- OUTSIDE RECORDS SUMMARY | 2024-01-25 05:30 | XMS_ITS ---
Author Organization [facility] Address [address] [place] [address] Care Team Providers Care Fuel Cell Assembler Name Role Phone Quique Tatum N.P. Primary Care Provider Higinio Mcmahon Unavailable [phone] Velia Siddiqui Unavailable Unavailable REASON FOR VISIT screening Problems Problem Type SNOMED Code ICD Code Onset Dates Problem Status W/U Status Risk Notes Problem Diverticular disease of colon (447857437) Diverticulosis of large intestine without perforation or abscess without bleeding (K57.30) Active confirmed Encounters Encounter Location Date Provider Diagnosis [facility] [address] [place] [phone] 01/25/2024 Higinio Zhang Colon cancer scree shanthi [...] * SOO FONSECA:[birth year] (54 yo M)Acc No.[id number]:01/25/2024 COLON WITH MAC Patient: JORGE DURANT Provider: Nicanor Zhang MD :1970 A ge:53 Y S ex:Male Date:01/25/2024 Address:[address] [place] [address] , [facility] Pcp:Quique Tatum N.P. Subjective: * Chief Complaints: [...] 0 01/25/2024 Generated for Nikkie kelley/Steven/Nickransmitting on: 0 10/24/2024 10:57 AM EDT
[2024-10-24 11:04] LABS: Creatinine, mg/dL 64.53
[2024-10-24 11:14] LABS: Creatinine, 24Hr Urine 1.8 G/Day (1.0-2.0); Total Volume 24 Hour Urine 2850 mL
[2024-10-24 11:28] LABS: Protein 24 Hr Urine 6926 mg/Day (<150); Protein mg/dL 243 mg/dL
== END 2024-10-24 10:19 | disposition home or self-care (01) ==
LOC: HO.LNP 10:18
PROVIDERS: Visit Provider Internal Medicine Nephrology
DX: E87.5 Hyperkalemia (principal); E11.21 Type 2 diabetes mellitus with diabetic nephropathy; N18.30 Chronic kidney disease, stage 3 unspecified; E11.22 Type 2 diabetes mellitus with diabetic chronic kidney disease; I10 Essential (primary) hypertension
CPT/HCPCS: 84156

== ENCOUNTER 2024-11-03 08:18 | Emergency (ER) | payer OTHER, SELFPAY ==
--- OUTSIDE RECORDS SUMMARY | 2024-01-25 05:30 | XMS_ITS ---
Author Organization [facility] Address [address] [place] [address] Care Team Providers Care Professor Of Medicine Name Role Phone Rc Sy.Quique Bhatt Primary Care Provider Higinio Mcmahon Unavailable [phone] Velia Siddiqui Unavailable Unavailable REASON FOR VISIT screening Problems Problem Type SNOMED Code ICD Code Onset Dates Problem Status W/U Status Risk Notes Problem Diverticulosis o f large intestine without perforation or abscess without bleeding (K57.30) Active confirmed Encounters Encounter Location Date Provider Diagnosis [facility] [place] Out[place] [address] [place], [place] [phone] 01/25/2024 Higinio Zhang Colon cancer scree shanthi [...] * SOO FONSECA:[birth year] (54 yo M)Acc No.[id number]:01/25/2024 COLON WITH MAC Patient: JORGE DURANT Provider: Nicanor Zhang MD :1970 A ge:53 Y S ex:Male Date:01/25/2024 Address:[address] [place] [address] , [facility] Pcp:Quique Tatum N.P. Subjective: * Chief Complaints: [...] 01/25/2024 Generated for Nikkie kelley/Steven/Felixitting on: 0 11/03/2024 09:15 AM EDT
--- NOTE | ~2024-11-03 | CT_ITS ---
EXAMINATION: CT ABDOMEN AND PELVIS WITHOUT CONTRAST CLINICAL INFORMATION: [Flank pain. COMPARISON: 03/11/2022 CT abdomen pelvis. TECHNIQUE: Multidetector volumetric imaging was performed from the superior aspect of the liver through the pubic symphysis. Sagittal and coronal reformatted images were obtained on the technologist's workstation. This CT examination was performed using dose optimization techniques as appropriate, variously including the following: *Automated exposure control *Adjustment of mA and/or kV according to patient size (this includes techniques or standardized protocols for targeted exams where dose is matched to indication/reason for exam; i.e. extremities or head) *Use of iterative reconstruction technique FINDINGS: LUNG BASES: The visualized lung bases are unremarkable. LIVER, GALLBLADDER, AND BILIARY TREE: The liver is normal in size, shape, and attenuation. No focal hepatic lesion or biliary ductal dilatation is present. The gallbladder is unremarkable with no evidence of radiopaque gallstones, gallbladder wall thickening, or obvious pericholecystic inflammatory changes. PANCREAS: Unremarkable. SPLEEN: Unremarkable. ADRENAL GLANDS: Unremarkable. KIDNEYS AND URETERS: The kidneys are normal in size, shape, and attenuation. No hydronephrosis, hydroureter, or calculi seen. No perinephric stranding. BLADDER: Decompressed, but grossly normal. GASTROINTESTINAL TRACT: The small and large bowel are unremarkable. The appendix is unremarkable. ABDOMINAL WALL: There are old postop changes. There is no significant hernia. LYMPH NODES: Mildly prominent left inguinal lymph nodes are present, of uncertain etiology but presumably reactive. These measure up to 1.4 cm short axis. VASCULAR: Unremarkable. PELVIC VISCERA: Unremarkable. OSSEOUS STRUCTURES: No suspicious lytic or blastic bone lesions. Mild degenerative changes throughout the spine and hip joints.. CT/CT abdomen pelvis wo IV con IMPRESSION: 1. No acute findings in the abdomen or pelvis. Urological calculus or obstruction. 2. Mildly prominent left inguinal lymph nodes present, presumably reactive but of uncertain etiology. These were present in 2021 and appear similar. Electronically signed by: Brad Olivas MD 11/03/2024 12:03 PM EDT
[2024-11-03 08:23] VITALS: BP 161/67; PULSE 65; RESP 16; TEMP 36.4; O2SAT 100; BMI 37.6
[2024-11-03 09:27] LABS: MANUAL DIFF FLAG NO
[2024-11-03 09:32] LABS: Hematocrit 27.7 % (42.0-52.0); Hemoglobin 9.6 g/dl (14.0-18.0); Imm Gran Abs Auto 0.07 X10*3/uL (0.00-0.03); Imm Gran Pct Auto 0.5 % (0.0-0.4); Lymphocytes Absolute Auto 1.4 X10*3/uL (1.2-4.9); Mean Corpuscular HGB Conc 34.7 g/dl (31.0-36.0); Mean Corpuscular Hemoglobin 30.9 pg (27.0-33.0); Mean Corpuscular Volume 89.1 fL (80.0-98.0); NRBC Abs Auto 0.000 X10*3/uL (0.0-0.012); NRBC Pct Auto 0.0 /100WBC (0.0-0.2); Platelet Count 214 X10*3/uL (160-400); Red Blood Count 3.11 X10*6/uL (4.60-5.80); White Blood Count 13.3 X10*3/uL (4.8-10.8)
[2024-11-03 09:45] LABS: Alanine Aminotransferase 14 U/L (0-40); Albumin Level 3.7 g/dL (3.5-5.0); Alkaline Phosphatase 119 U/L (39-117); Anion Gap 10 (12-20); Aspartate Amino Transferase 26 U/L (5-37); Blood Urea Nitrogen 37 mg/dL (9-16); Calcium 8.9 mg/dL (8.4-10.2); Carbon Dioxide 23 mmol/L (22-29); Chloride 105 mmol/L (96-108); Creatinine Clr Calc Pharmacy 37.2; Estimated Glomerular Filt Rate 24; Magnesium 2.3 mg/dL (1.6-2.6); Potassium 5.2 mmol/L (3.3-5.1); Sodium 133 mmol/L (135-145); Total Protein 7.8 g/dL (6.5-8.0)
--- NOTE | 2024-11-03 11:10 | PC.NURSE ---
Pt A&O X4 VSS states flank pain since Thursday with intermittent diarrhea. No N/V. Also reports intermittent fever. NAD No other complaints.
[2024-11-03 11:11] VITALS: BP 184/81; PULSE 66; RESP 18; TEMP 36.4; O2SAT 98
[2024-11-03 11:32] LABS: Appearance Urine Clear; Glucose Urine UA >=1000 mg/dL (Negative); PH 6.0 (5.0-9.0); Specific Gravity - Urine 1.015 (1.005-1.025); UMIC TRIGGER UACC YES
--- NOTE | 2024-11-03 11:35 | ED.GENADULT ---
HPI - General Adult General Chief complaint: Back Pain/Injury Stated complaint: chronic kidney pain Time Seen by Provider: 11/03/24 11:02 Source: patient, RN notes reviewed and old records reviewed Mode of arrival: ambulatory Limitations: no limitations History of Present Illness ED Provider: James HPI narrative: 54-year-old male past medical history significant for diabetes, hypertension, chronic kidney disease, obesity, obstructive sleep apnea, congestive heart failure presents for evaluation of left flank pain. Patient reports increasing left flank pain for the last few days. His pain is worse with the movement. He has had associated subjective fevers as well as diarrhea. The fevers also started a few days ago with the diarrhea was yesterday only. Denies any abdominal pain, nausea or vomiting. Denies any black or bloody stool. Denies any burning with urination or blood in the urine Denies any injury to the back No other complaints or concerns at this time Related Data Home Medications ?Medication ?Instructions ?Recorded ?Confirmed multivitamin 1 tab PO DAILY 03/11/22 10/25/24 omega-3 fatty acids-fish oil 684 1 cap PO DAILY 01/21/24 10/25/24 mg-1,200 mg capsule,delayed release Previous Rx's ?Medication ?Instructions ?Recorded blood-glucose meter (FreeStyle #1 ea 03/11/22 Lite Meter kit) blood sugar diagnostic (FreeStyle #100 ea 07/25/22 Lite Strips) zinc acetate 25 mg (zinc) capsule 50 mg (2 x 25 mg (zinc)) PO BID 3 04/14/23 months #360 caps comp.stocking,knee,long,medium #12 ea 04/15/23 lancets 28 gauge (FreeStyle #100 ea 08/27/23 Lancets) miscellaneous medical supply See Rx Instructions miscellaneous 12/22/23 .COMPLEX #1 ea empagliflozin 25 mg tablet 25 mg PO DAILY 3 months #90 tabs 02/12/24 ferrous sulfate 325 mg (65 mg 325 mg PO TID #270 tabs 05/16/24 iron) tablet clonidine HCl 0.2 mg tablet 0.2 mg PO BID 90 days #180 tabs 06/20/24 sodium polystyrene sulfonate 30 g PO QWEEK #454 grams 08/31/24 atorvastatin 40 mg tablet 40 mg PO BEDTIME 30 days #30 tabs 09/05/24 cholecalciferol (vitamin D3) 50 50 mcg PO DAILY #90 caps 09/05/24 mcg (2,000 unit) capsule fenofibrate 54 mg tablet 54 mg PO DAILY #90 tabs 09/20/24 pen needle, diabetic 32 gauge x #120 ea 09/26/24 valsartan 160 mg tablet 160 mg PO BID 90 days #180 tabs 09/29/24 insulin glargine 100 unit/mL (3 15 unit (0.15 mL) subcut QPM #15 mL 10/03/24 mL) subcutaneous pen (Basaglar KwikPen U-100 Insulin) furosemide 40 mg tablet 40 mg PO DAILY 90 days #90 tabs 10/04/24 metformin 1,000 mg tablet 1,000 mg PO BID #180 tabs 10/10/24 carvedilol 12.5 mg tablet 12.5 mg PO BID 90 days #180 tabs 10/19/24 fluticasone propionate 50 2 spray intranasal BID for 10/19/24 mcg/actuation nasal allergies 90 days #48 mL spray,suspension cyclobenzaprine 10 mg tablet 10 mg PO TID PRN muscle spasm #15 11/03/24 tabs Allergies Allergy/AdvReac Type Severity Reaction Status Date / Time No Known Allergies Allergy Verified 11/03/24 08:27 Review of Systems Constitutional: Constitutional: Denies body ache(s), Reports chills, Reports fever(s) and Reports malaise ENT: Denies dizziness Cardiovascular: Cardiovascular: Denies chest pain and Denies dyspnea on exertion Respiratory: Respiratory: Denies cough and Denies dyspnea on exertion Gastrointestinal: Gastrointestinal: Denies abdominal pain and Reports diarrhea Genitourinary: Genitourinary: Denies dysuria and Reports flank pain Musculoskeletal: Musculoskeletal: Reports back pain Integumentary/Breasts: Skin/Breast: Denies rash Neurologic: Denies dizziness Psychiatric: Psychiatric: Denies anxiety PMFSH Past Medical History Medical History CKD (chronic kidney disease) stage 3, GFR 30-59 ml/min Sleep apnea Chronic heart failure with preserved ejection fraction (HFpEF) Elevated cholesterol Iron deficiency anemia Chronic renal insufficiency Diabetic nephropathy Acute heart failure with preserved ejection fraction (HFpEF) Necrotizing subcutaneous infection Hypertension Type 2 diabetes Surgical History History of pyloromyotomy Status post incision and drainage [place] teeth removed Family History Family History Mother Diabetes Maternal Uncle Diabetes Sister Multiple sclerosis Father Liver failure Kidney failure Social History Social History Household Members: Spouse Housing: House Are you a primary customer care professional to a significant other at home: No Do you presently have visiting nurse or other home services: No Alcohol intake: current Alcohol intake frequency: a few times a week Alcohol type: beer Patient Tobacco Use Status: Former Tobacco user Tobacco use type: Cigarette Years Smoked: 4 e-Cigarette/Vaping Use: Never Used Second Hand Smoke Exposure: Yes Use of substances other than those prescribed or required for medical reasons: Yes Substance Use Type: Marijuana Substance Use Type Other:: daily Substance Use Frequency: Daily Advance Directives: Yes Advance Directives on File: Yes Advance Directives Date on File: 05/07/23 service: No Current occupational status: employed Current occupation: [employer] Cognitive needs: No Hearing needs: No Vision needs: No Physical Exam ED Vital Signs: Vital Signs - 24 hr 11/03/24 08:23 11/03/24 11:11 Temperature 97.5 F 97.5 F Pulse Rate 65 66 Respiratory Rate 16 18 Blood Pressure 161/67 H 184/81 H Pulse Oximetry 100 98 Oxygen Delivery Method Room Air Room Air BMI result Body Mass Index 37.6 Const General: healthy appearing, comfortable, no acute distress, alert and awake Nutritional Appearance: well nourished Orientation/consciousness: patient oriented x3 HENMT Head: Yes normocephalic and Yes atraumatic Eyes Eyelids: Yes eyelids normal Conjunctivae: conjunctivae normal Sclerae: sclerae normal Corneas: corneas normal Pupils: Equal, round and reactive pupils present EOM: EOMs intact bilaterally Neck Neck: Yes full ROM Resp Effort & Inspection: normal respiratory effort, able to speak in complete sentences and not labored Cardio Rate: regular rate Rhythm: regular rhythm GI Inspection: No distended Palpation (GI): Soft to palpation, not firm, nontender, no guarding and not rigid Back/Spine/Pelvis Other: There is tenderness to the left thoracic paraspinous region. No vertebral tenderness. No step-offs or deformities. Straight leg raise negative Skin General skin exam: no rashes or lesions noted and elasticity normal Neuro General: patient oriented x3 Cranial nerves: Yes Equal, round and reactive pupils present and Yes Bilaterally intact EOM present Cognition (Neuro): normal cognition Extrem Other: Moving all extremities well without any obvious deformities Course Reevaluation(s) Reevaluation #1: Patient's workup discussed with him, he has no infectious finding, no evidence of kidney stone. His pain is most likely musculoskeletal in origin, we will treat with Tylenol, lidocaine patches and muscle relaxers for bedtime. Time: 13:42 Medications Administered Discontinued Medications Generic Name Dose Route Start Last Admin Trade Name Freq PRN Reason Stop Dose Admin Sodium Chloride 500 mls @ 999 mls/hr 11/03/24 11:17 11/03/24 12:40 Ns IV 11/03/24 11:47 Infused .Q31M STA Infusion Acetaminophen 1,000 mg in 100 mls @ 400 mls/hr 11/03/24 11:17 11/03/24 13:17 Ofirmev IV 11/03/24 11:31 Infused ONCE ONE Infusion Medical Decision Making Medical Decision Making [facility] Narrative: 54-year-old male presents for evaluation of increasing left flank pain. This is reproducible on exam but he has no straight leg raise. No vertebral pain or tenderness. This is less likely cauda equina more likely musculoskeletal origin of the left flank versus renal disease with obstructive uropathy versus pyelonephritis. He does reports subjective fevers. He appears well in his afebrile. Plan for urinalysis, CT scan of the abdomen pelvis to evaluate for obstruction. The patient has a mild leukocytosis with a left shift, in his sodium is low at 133 with a potassium on the upper limits of normal at 5.2. His renal function is slightly elevated with a BUN baseline of 37 but an elevated creatinine of 2.82 with a baseline of around 2.2. He does have a history of congestive heart failure, we will administer a 500 cc bolus of IV fluids which should treat his mild hyponatremia, mild hyperkalemia and elevated creatinine. Differential Diagnosis Differential Diagnoses: The differential diagnosis associated with the presentation includes Muscle strain Chronic back pain Obstructive uropathy Pyelonephritis Constipation Admission/Observation Consideration of admission/observation: Escalation of care including admission/observation considered Lab Data [facility] Lab Attestation statement: I reviewed the patient's lab results. As above 11/03/24 09:16 11/03/24 09:16 Labs: Lab Results 11/03/24 11/03/24 Range/Units 09:16 11:19 WBC 13.3 H (4.8-10.8) X10*3/uL RBC 3.11 L (4.60-5.80) X10*6/uL Hgb 9.6 L (14.0-18.0) g/dl Hct 27.7 L (42.0-52.0) % MCV 89.1 (80.0-98.0) fL MCH 30.9 (27.0-33.0) pg MCHC 34.7 (31.0-36.0) g/dl RDW 12.0 (11.0-16.0) % Plt Count 214 (160-400) X10*3/uL MPV 11.2 (9.4-12.4) fL Immature Gran % (Auto) 0.5 H (0.0-0.4) % Neut % (Auto) 79.3 H (45-73) % Lymph % (Auto) 10.6 L (20-40) % [place] % (Auto) 7.3 (2-11) % Eos % (Auto) 1.8 (0-4) % Baso % (Auto) 0.5 (0-2) % Lymph # (Auto) 1.4 (1.2-4.9) X10*3/uL [place] # (Auto) 1.0 (0.1-1.2) X10*3/uL Eos # (Auto) 0.2 (0.0-0.4) X10*3/uL Baso # (Auto) 0.1 (0.0-0.2) X10*3/uL Abs Immat Gran (auto) 0.07 H (0.00-0.03) X10*3/uL Absolute Neuts (auto) 10.6 H (2.0-8.3) x10*3/uL Absolute Nucleated RBC 0.000 (0.0-0.012) X10*3/uL Nucleated RBC % (auto) 0.0 (0.0-0.2) /100WBC Sodium 133 L (135-145) mmol/L Potassium 5.2 H (3.3-5.1) mmol/L Chloride 105 (96-108) mmol/L Carbon Dioxide 23 (22-29) mmol/L Anion Gap 10 L (12-20) BUN 37 H (9-16) mg/dL Creatinine 2.82 H (0.5-1.4) mg/dL Estim Creat Clear Calc 37.2 Estimated GFR 24 Random Glucose 142 H (60-115) mg/dL Calcium 8.9 (8.4-10.2) mg/dL Magnesium 2.3 (1.6-2.6) mg/dL Total Bilirubin 0.5 (0.0-1.0) mg/dL AST 26 (5-37) U/L ALT 14 (0-40) U/L Alkaline Phosphatase 119 H (39-117) U/L Total Protein 7.8 (6.5-8.0) g/dL Albumin 3.7 (3.5-5.0) g/dL Urine Color Yellow Urine Appearance Clear Urine pH 6.0 (5.0-9.0) Ur Specific [place] 1.015 (1.005-1.025) Urine Protein 300 (3+) H (Neg-Trace) mg/dL Urine Glucose (UA) >=1000 H (Negative) mg/dL Urine Ketones Negative (Negative) mg/dL Urine Blood Negative (Negative) Urine Nitrite Negative (Negative) Ur Leukocyte Esterase Negative (Negative) Urine RBC 0-2 (0-2) /HPF Urine WBC 0-5 (0-5) /HPF Ur Squamous Epith Cells 0-2 (0-2) /HPF Urine Bacteria None Seen (None Seen) Hyaline Casts 0-2 (0-2) /LPF Radiology Impression Discussion of test interpretation with radiology: I have reviewed the radiologist's reading. Radiologist Impression: FINDINGS: LUNG BASES: The visualized lung bases are unremarkable. LIVER, GALLBLADDER, AND BILIARY TREE: The liver is normal in size, shape, and attenuation. No focal hepatic lesion or biliary ductal dilatation is present. The gallbladder is unremarkable with no evidence of radiopaque gallstones, gallbladder wall thickening, or obvious pericholecystic inflammatory changes. PANCREAS: Unremarkable. SPLEEN: Unremarkable. ADRENAL GLANDS: Unremarkable. KIDNEYS AND URETERS: The kidneys are normal in size, shape, and attenuation. No hydronephrosis, hydroureter, or calculi seen. No perinephric stranding. BLADDER: Decompressed, but grossly normal. GASTROINTESTINAL TRACT: The small and large bowel are unremarkable. The appendix is unremarkable. ABDOMINAL WALL: There are old postop changes. There is no significant hernia. LYMPH NODES: Mildly prominent left inguinal lymph nodes are present, of uncertain etiology but presumably reactive. These measure up to 1.4 cm short axis. VASCULAR: Unremarkable. PELVIC VISCERA: Unremarkable. OSSEOUS STRUCTURES: No suspicious lytic or blastic bone lesions. Mild degenerative changes throughout the spine and hip joints.. CT/CT abdomen pelvis wo IV con IMPRESSION: 1. No acute findings in the abdomen or pelvis. Urological calculus or obstruction. 2. Mildly prominent left inguinal lymph nodes present, presumably reactive but of uncertain etiology. These were present in 2021 and appear similar. Electronically signed by: Brad Olivas MD 11/03/2024 12:03 PM EDT RP Discharge Plan Discharge Clinical Impression: Acute left flank pain Patient Disposition: Home, Self-Care Instructions: Muscle Strain (ED) Additional Instructions: Your workup in the ER today was reassuring. This includes your labs, urinalysis and CT scan. Your renal function was slightly above your baseline with a creatinine of 2.82. This was treated with IV fluids. Follow up with your primary doctor, return for new or worsening symptoms. Your urine sample did not show any signs of infection. Your CT scan did not show any kidney stones or other findings to explain your pain. Your pain is most likely muscular in origin. Continue to use Tylenol as needed for pain. You may also use lidocaine patches. You may use cyclobenzaprine as needed for muscle spasms. This may make you drowsy, do not drink alcohol or drive after taking it Prescriptions: New cyclobenzaprine 10 mg tablet 10 mg PO TID PRN (Reason: muscle spasm) Qty: 15 0RF No Action (DME) FreeStyle Lite Strips Strip Qty: 100 4RF Rx Instructions: Test four times a day or as directed. zinc acetate 25 mg (zinc) capsule 50 mg PO BID 90 Days Qty: 360 1RF Rx Instructions: substitute of 30 mg capsules ok (DME) lancets [FreeStyle Lancets] 28 gauge misc See Rx Instructions .ROUTE .COMPLEX Qty: 100 2RF Dose Instruction: TEST FOUR TIMES A DAY OR DIRECTED. Rx Instructions: TEST FOUR TIMES A DAY OR DIRECTED. miscellaneous medical supply Misc See Rx Instructions miscellaneous .COMPLEX Qty: 1 0RF Rx Instructions: 1 large blood pressure cuff ferrous sulfate 325 mg (65 mg iron) tablet 325 mg PO TID Qty: 270 1RF sodium polystyrene sulfonate Powder 30 g PO QWEEK Qty: 454 3RF cholecalciferol (vitamin D3) 50 mcg (2,000 unit) capsule 50 mcg PO DAILY Qty: 90 3RF atorvastatin 40 mg tablet 40 mg PO BEDTIME 30 Days Qty: 30 3RF fenofibrate 54 mg tablet 54 mg PO DAILY Qty: 90 1RF (DME) pen needle, diabetic 32 gauge x 5/32 needle See Rx Instructions .ROUTE .COMPLEX Qty: 120 8RF Dose Instruction: USE FOUR TIMES A DAY OR DIRECTED. Rx Instructions: USE FOUR TIMES A DAY OR DIRECTED. valsartan 160 mg tablet 160 mg PO BID 90 Days Qty: 180 1RF insulin glargine [Basaglar KwikPen U-100 Insulin] 100 unit/mL (3 mL) insulin pen 15 unit subcut QPM Qty: 15 4RF Rx Instructions: takes at 1430 daily metformin 1,000 mg tablet 1,000 mg PO BID Qty: 180 1RF carvedilol 12.5 mg tablet 12.5 mg PO BID 90 Days Qty: 180 1RF Rx Instructions: must administer with a meal/food REPLACES METOPROLOL fluticasone propionate 50 mcg/actuation spray,suspension 2 spray intranasal BID 90 Days Qty: 48 1RF multivitamin Tablet 1 tab PO DAILY (DME) blood-glucose meter [FreeStyle Lite Meter] Kit Qty: 1 0RF Rx Instructions: As Directed [place] 3 Fish Oil 684-1,200 mg Capsule,Delayed Release(Dr/Ec) 1 cap PO DAILY (DME) comp.stocking,knee,long,medium Misc See Rx Instructions .Route Qty: 12 0RF Rx Instructions: As directed furosemide 40 mg tablet 40 mg PO DAILY 90 Days Qty: 90 1RF empagliflozin 25 mg tablet 25 mg PO DAILY 90 Days Qty: 90 3RF clonidine HCl 0.2 mg tablet 0.2 mg PO BID 90 Days Qty: 180 1RF Stand Alone Forms: Work/School Release Print Language: Sammarinese
[2024-11-03 13:59] VITALS: BP 177/67; PULSE 67; RESP 18; TEMP 36.2; O2SAT 97
== END 2024-11-03 14:01 | disposition home or self-care (01) ==
PROVIDERS: Emergency Provider Emergency Medicine; PCP Nurse Practitioner Family
DX: R10.9 Unspecified abdominal pain (principal); I12.9 Hypertensive chronic kidney disease with stage 1 through stage 4 chronic kidney disease, or unspecified chronic kidney disease; E11.22 Type 2 diabetes mellitus with diabetic chronic kidney disease; N18.30 Chronic kidney disease, stage 3 unspecified; G47.33 Obstructive sleep apnea (adult) (pediatric); I50.9 Heart failure, unspecified
CPT/HCPCS: 36415; 74176; 80053; 81001; 83735; 85025; 96361; 96365; 99284; J0131

== ENCOUNTER → 2024-11-03 11:17 | Outpatient (BNV) | payer OTHER, SELFPAY | PROVIDERS: Emergency Provider Emergency Medicine; PCP Nurse Practitioner Family; Visit Provider Radiology Diagnostic Radiology | DX: R10.9 Unspecified abdominal pain (principal) | CPT/HCPCS: 74176 ==

== ENCOUNTER 2024-11-07 08:12 | Outpatient (AMB) | payer OTHER, SELFPAY ==
--- OUTSIDE RECORDS SUMMARY | 2024-01-25 05:30 | XMS_ITS ---
Author Organization [facility] Address [address] [place] [address] Care Team Providers Care Direct Support Worker Name Role Phone Quique Tatum N.P. Primary Care Provider Higinio Mcmahon Unavailable [phone] Velia Siddiqui Unavailable Unavailable REASON FOR VISIT screening Problems Problem Type SNOMED Code ICD Code Onset Dates Problem Status W/U Status Risk Notes Problem Diverticular disease of colon (250515030) Diverticulosis of large intestine without perforation or abscess without bleeding (K57.30) Active confirmed Encounters Encounter Location Date Provider Diagnosis [facility] [place] Outpatient [address] [place] [phone] 01/25/2024 Higinio Zhang Colon cancer scree shanthi [...] * SOO FONSECA:[birth year] (54 yo M)Acc No.[id number]:01/25/2024 COLON WITH MAC Patient: JORGE DURANT Provider: Nicanor Zhang MD :1970 A ge:53 Y S ex:Male Date:01/25/2024 Address:[address] [place] [address] , [facility] Pcp:Quique Tatum N.P. Subjective: * Chief Complaints: [...] 0 01/25/2024 Generated for Nikkie kelley/Steven/Franciscosmitting on: 11/07/2024 08:14 AM EDT
--- NOTE | 2024-11-07 08:19 | A.OFFPC_ITS ---
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 blood-glucose meter (FreeStyle Lite Meter kit) As Directed carvedilol 12.5 mg PO BID 90 days cholecalciferol (vitamin D3) 50 mcg PO DAILY clonidine HCl 0.2 mg PO BID 90 days comp.stocking,knee,long,medium As directed cyclobenzaprine 10 mg PO TID PRN empagliflozin 25 mg PO DAILY 3 months fenofibrate 54 mg PO DAILY ferrous sulfate 325 mg PO TID fluticasone propionate 50 mcg/actuation 2 sprays intranasal BID 90 days furosemide 40 mg PO DAILY 90 days insulin glargine (Basaglar KwikPen U-100 Insulin) 15 units (0.15 mL) subcut QPM lancets (FreeStyle Lancets) TEST FOUR TIMES A DAY OR DIRECTED. metformin 1,000 mg PO BID miscellaneous medical supply 1 large blood pressure cuff multivitamin 1 tab PO DAILY omega-3 fatty acids-fish oil 684-1,200 mg 1 cap PO DAILY pen needle, diabetic USE FOUR TIMES A DAY OR DIRECTED. sodium polystyrene sulfonate 30 grams PO 3XW valsartan 160 mg PO BID 90 days zinc acetate 50 mg (2 x 25 mg (zinc)) PO BID 3 months Tobacco use date assessed: 11/07/24 Dental Screening Dental Screen Date: 11/07/24 Did you have a dental visit in the last 12 months?: No Did you have a dental problem in the last 6 months where you did not have access to dental care?: No Was dental information given to patient?: Patient has dentist HPI HPI Comments History of Present Illness Details 54-year-old male presents for hypertensi on follow-up. admits to taking his medications as prescribed without adverse reactions. He notes that he has been making healthy lifestyle changes. He notes that he pulled a muscle to his left lower back over a week ago. He was [place] [facility] and was prescribed cyclobenzaprine as needed. He also takes Tylenol and uses an icy hot patch. Reports moderate, achy pain to his left lower back. [facility] Medical History CKD (chronic kidney disease) stage 3, GFR 30-59 ml/min Sleep apnea Chronic heart failure with preserved ejection fraction (HFpEF) Elevated cholesterol Iron deficiency anemia Chronic renal insufficiency Diabetic nephropathy Acute heart failure with preserved ejection fraction (HFpEF) Necrotizing subcutaneous infection Hypertension Type 2 diabetes Surgical History History of pyloromyotomy Status post incision and drainage [place] teeth removed Family History Mother Diabetes Maternal Uncle Diabetes Sister Multiple sclerosis Father Liver failure Kidney failure Social History Household Members: Spouse Both parents involved: No Caregiver staying overnight: No Housing: House Are you a primary lawn care technician to a significant other at home: No Do you presently have visiting nurse or other home services: No 75 years or older and lives alone: No Alcohol intake: current Alcohol intake frequency: a few times a week Alcohol type: beer Patient Tobacco Use Status: Former Tobacco user Tobacco use type: Cigarette Years Smoked: 4 e-Cigarette/Vaping Use: Never Used Second Hand Smoke Exposure: Yes Substance Use Type: Marijuana Advance Directives Date on File: 05/07/23 service: No Current occupational status: employed Current occupation: [employer] Current occupational exposures/hazards: No Cognitive needs: No Hearing needs: No Vision needs: No Questionnaire Thrive Questionnaire Date Thrive assessed: 06/13/24 I am a: Patient What is your living situation today?: I have a steady place to live Within the past 12 months, did the food you bought not last and you didn't have the money to get more?: Sometimes True Within the past 12 months, did you worry whether your food would run out before you got money to buy more?: Sometimes True Do you have trouble paying for medicines?: Yes Do you have trouble getting transportation to medical appointments?: No Do you have trouble paying your heating and electricity bill?: Yes Do you have trouble taking care of your child, family member or friend?: No Do you have trouble with day-to-day activities such as bathing, preparing meals, shopping, managing finances, etc.?: No Are you currently unemployed and looking for a job?: No Are you interested in more education?: I choose not to answer this question Currently or been in a relationship where the following occur: No concerns reported THRIVE Score: 3 UTE-7 AMB Questionnaire UTE-7 Date UTE - 7 assessed: 09/13/24 Source: Developed by Drs. Higinio Rodriguez, Olivia Rayo, Edilberto Freeman and colleagues, with an educational smitha from [employer]. Review of Systems Const Details: Const Denies chills, Denies fatigue, Denies fever(s), Denies headache(s) and Denies weakness ENT Denies dizziness and Denies headache(s) Card Denies chest pain, Denies lightheadedness, Denies dyspnea and Denies other (Palpitations) Resp Denies cough, Denies dyspnea, Denies wheezing and Denies other ( shortness of breath) GI Denies abdominal pain, Denies melena, Denies hematochezia, Denies change in bowel habits, Denies dyspepsia and Denies nausea Denies hematuria and Denies dysuria Musc Reports as per HPI Skin/Breast Denies rash, Denies unusual bruising and Denies wounds Neuro Denies abnormal gait, Denies dizziness, Denies headache(s), Denies memory loss, Denies numbness, Denies Sensory deficit (Neuro), Denies tingling and Denies weakness Psych Denies anxiety, Denies depression, Denies memory loss Endo Denies cold intolerance, Denies fatigue, Denies heat intolerance, Denies polydipsia and Denies polyuria Aller/Immun Denies wheezing Physical exam (Primary Care) Vital Signs: Last Vital Signs Temp 97.9 F 11/07/24 08:25 Pulse 59 11/07/24 08:25 Resp 16 11/07/24 08:25 BP 176/82 H 11/07/24 08:25 Pulse Ox 100 07/14/25 08:25 Oxygen Delivery Method Room Air 11/07/24 08:25 BMI result Body Mass Index 37.3 Tobacco/Smoking Status: Tobacco use Status Tobacco use date assessed 11/07/24 11/07/24 08:30 Patient Tobacco Use Status Former Tobacco user 11/07/24 08:21 Tobacco use type Cigarette 11/07/24 08:21 e-Cigarette/Vaping Use Never Used 11/07/24 08:21 Thrive Assessment: Date of Thrive Assessment Date Thrive assessed 06/13/24 11/07/24 08:21 Currently or been in a relationship where the following occur: No concerns reported Const Other: General: no acute distress and well developed Nutritional Appearance: well nourished Orientation/consciousness: patient oriented x3 HENMT Head: Yes normocephalic and Yes atraumatic Eyes General: appearance normal, both eyes and all related structures Pupils: Equal, round and reactive pupils present EOM: EOMs intact bilaterally Resp Effort & Inspection: normal respiratory effort Auscultation: clear to auscultation bilaterally Cardio Rate: regular rate Rhythm: regular rhythm Heart sounds: S1 normal heart sound present, S2 normal heart sound present, no gallops, no murmurs and no rubs GI Palpation (GI): No Abdominal aortic bruit present, Soft to palpation, nontender, No hepatosplenomegaly present and No Rebound tenderness present Auscultation: normal bowel sounds General: Yes no CVA tenderness Back/Spine/Pelvis Back: no CVA tenderness Cervical Spine: cervical ROM normal and No Cervical spine tenderness Thoracic/Lumbar Spine: thoraco-lumbar ROM normal, No pain with thoraco-lumbar ROM, No thoracic spinal tenderness and No lumbar spinal tenderness Back: Left lower back tenderness to palpation Extrem General: Yes normal to inspection, No edema and No calf tenderness Skin General: warm and dry. Normal skin color. Normal skin turgor Neuro General: patient oriented x3, gait normal and no focal neuro deficit Cranial nerves: Yes Equal, round and reactive pupils present Cognition (Neuro): normal cognition Gait exam (Neuro): Normal gait present Sensory Exam: No Sensory deficit (Neuro) Psych Appearance: grossly normal Affect: normal affect Attitude: cooperative Thought process: Normal thought process present Coding Level of Care Code Est Pt Level 4 (86955) Complex EM visit Add On G2211 Diagnoses Primary hypertension I10 Hypertension type: primary hypertension Acute left-sided low back pain M54.50 Assessment & Plan Assessment & Plan (1) Hypertension: Code(s): I10 - Essential (primary) hypertension Category: Medical Qualifiers: Hypertension type: primary hypertension Qualified Code(s): I10 - Essential (primary) hypertension Plan: Resting blood pressure is 144/80, above goal of less than 130/80. His blood pressure has been elevated since his furosemide was decreased to 40 mg daily from 40 mg twice daily. Will increase furosemide to 40 mg twice daily; advised to take as prescribed. Continue to take carvedilol valsartan, and clonidine as prescribed. Low-sodium diet encouraged. Follow-up in 1 month or sooner with symptoms or concerns. Verbalized understanding and agreed with the plan. (2) Acute left-sided low back pain: Code(s): M54.50 - Low back pain, unspecified Category: Medical Plan: He notes that he pulled a muscle to his left lower back over a week ago. He was [place] [facility] [place] [facility] and was prescribed cyclobenzaprine as needed. He also takes Tylenol and uses an icy hot patch. Reports moderate, achy pain to his left lower back. Left lower back tenderness to palpation. Likely muscle strain. Continue current treatment regimen. Warm/cool compresses encouraged. Follow-up with worsening or new symptoms. Verbalized understanding and agreed with the plan. Medications: Changed From sodium polystyrene sulfonate 30 grams PO QWEEK 454 grams 3RF To sodium polystyrene sulfonate 30 grams PO 3XW Jovani Hernandez MD From furosemide 40 mg PO DAILY 90 days 90 tabs 1RF To furosemide 40 mg PO BID 180 tabs 1RF 90 days Quique Tatum, SUPERINTENDENT METERS
[2024-11-07 08:25] VITALS: BP 176/82; PULSE 59; RESP 16; TEMP 36.6; O2SAT 100; BMI 37.3
[2024-11-07 08:40] VITALS: BP 144/80
== END 2024-11-07 08:47 | disposition home or self-care (01) ==
LOC: HO.HMCFM 08:12
PROVIDERS: PCP Nurse Practitioner Family; Visit Provider Nurse Practitioner Family
DX: I10 Essential (primary) hypertension (principal); M54.50 Low back pain, unspecified

== ENCOUNTER 2024-11-11 14:33 | Inpatient (IN) | payer OTHER, SELFPAY ==
--- OUTSIDE RECORDS SUMMARY | 2024-01-25 05:30 | XMS_ITS ---
Author Organization [facility] Address [address] [place] [address] Care Team Providers Care Teachers' Aide Name Role Phone Rc Sy.Quique Bhatt Primary Care Provider Higinio Mcmahon Unavailable [phone] Velia Siddiqui Unavailable Unavailable REASON FOR VISIT screening Problems Problem Type SNOMED Code ICD Code Onset Dates Problem Status W/U Status Risk Notes Problem Diverticulosis o f large intestine without perforation or abscess without bleeding (K57.30) Active confirmed Encounters Encounter Location Date Provider Diagnosis [facility] [place] [address] [place], [place] [phone] 01/25/2024 Higinio Zhang Colon cancer scree shanthi [...] * SOO FONSECA:[birth year] (54 yo M)Acc No.[id number]:01/25/2024 COLON WITH MAC Patient: JORGE DURANT Provider: Nicanor Zhang MD :1970 A ge:53 Y S ex:Male Date:01/25/2024 Address:[address] [place] [address] , [facility] Pcp:Quique Tatum N.P. Subjective: * Chief Complaints: [...] 01/25/2024 Generated for Nikkie kelley/Steven/Felixitting on: 0 11/11/2024 03:06 PM EDT
--- NOTE | ~2024-11-11 | IR_ITS ---
CLINICAL HISTORY: IV antibiotics. PROCEDURES: 1. Real-time ultrasound guided access into the right internal jugular vein after documentation of selective vessel patency, and permanent imaging storing in the patient records. 2. Placement of a 6 Fr, 25.5 cm tunneled, dual-lumen power injectable [place] CLINICIAN: Justin Stallworth NP MEDICATIONS: -Lidocaine 1% 10 ml, SQ. -Additional details, please see nursing flowsheet. Complications: None. Estimated blood loss: <5 ml Specimens: None. Contrast: None. Fluoroscopy time: 0.4 min PROCEDURE NOTE: The procedure, risks, benefits, and alternatives were carefully explained to the patient and written informed consent was obtained. The patient was placed supine on the fluoroscopy table. A timeout was performed. The right neck and chest was prepped and draped in usual sterile fashion. Local anesthesia was administered to the right neck access site with lidocaine. Under ultrasound guidance, the right internal jugular vein was accessed with a 5 fr micropuncture set. A permanent ultrasound picture was saved. A peel-away sheath was advanced over the wire. The catheter was measured and cut to length. Next, subcutaneous lidocaine was administered to the chest. Using blunt dissection, a subcutaneous tunnel was created that connects from the upper chest to the venotomy site. The catheter was pulled through the tunnel. The catheter was advanced through the sheath, which was subsequent peeled away. The catheter was tested, flushed, and sutured to the skin with its tip in the cavoatrial junction. The venotomy site was closed with surgical glue. A dry sterile dressing was applied to the chest and the venotomy site. A permanent chest fluoroscopic image was saved demonstrating the catheter tip in the cavoatrial junction. The patient was stable after the procedure was transferred back to the floor. IR/IR cvc insert central tunnel IMPRESSION: Placement of a tunneled dual-lumen [place] catheter PLAN: -The catheter may be used immediately. This procedure was performed by Justin Stallworth NP, and supervised by Neeraj Peralta M.D. Electronically signed by: Neeraj Peralta MD 11/21/2024 09:09 AM EDT Workstation: [id number]
--- NOTE | ~2024-11-11 | XR_ITS ---
EXAMINATION: XR LUMBOSACRAL SPINE CLINICAL INFORMATION: Back Pain COMPARISON: CT abdomen and pelvis November 03, 2024 TECHNIQUE: Three views of the lumbosacral spine. FINDINGS: There are 5 nonrib-bearing lumbar segments with sacralization of the L5 right transverse process that may pseudoarticulating with the upper sacrum. There are vestigial ribs at T12. 2 circular high hypodensities are visualized left of the L1 vertebral body that were not seen on the recent CT scan and may represent swallowed tablets or pills. No similar density was present on the recent CT. There is mild narrowing of the T12-L1 disc space, endplate sclerosis, and partial ossification of the anterior disc annulus. XR/XR lumbar spine 2-3V IMPRESSION: No acute abnormality. Moderate degenerative disc disease at T12-L1. Sacralized right L5 transverse process and possible pseudoarticulation with upper S1. Electronically signed by: Zac Freeman MD 11/14/2024 11:59 AM EDT
--- NOTE | ~2024-11-11 | XR_ITS ---
EXAMINATION: XR FOOT, LEFT CLINICAL INFORMATION: swelling. 4th toe redness. Evaluate for osteomyelitis COMPARISON: May 18, 2023 TECHNIQUE: AP, lateral, and oblique views of the left foot. FINDINGS: There is also bone through the head of the fourth proximal phalanx since the prior examination. However, the bone appears corticated. There is also deformity of the third proximal phalanx head and neck and lucency in the middle phalanx involving the proximal medial bone and possible bony fragment lateral to the head. There is pes planus. There is an ossified fragment anterior to the talar head has enlarged since the prior examination. Osteophytes and degenerative cystic changes are present at the junction of the midfoot and hindfoot. XR/XR foot LT min 3V IMPRESSION: Lucency involving the middle phalanx and lucency and irregularity of the proximal phalanx head of the third digit is concerning for osteomyelitis and possible fracture of the head of the proximal phalanx and DIP joint septic arthritis. Suspected interval amputation of the fourth proximal phalanx head. Electronically signed by: Zac Freeman MD 11/11/2024 04:06 PM EDT
--- NOTE | ~2024-11-11 | US_ITS ---
EXAMINATION: US LOWER EXTREMITY VEINS LIMITED FOLLOW UP LEFT HISTORY: left leg/foot swelling COMPARISON: Comparison is made with the prior examination dated 09/30/2023. TECHNIQUE: Duplex and color Doppler sonographic examination of the deep venous system of the left lower extremity was performed. FINDINGS: The common femoral, superficial femoral, and popliteal veins are patent demonstrating normal compressibility, spontaneous flow, and augmentation. There is a normal color and spectral Doppler waveform appearance of the visualized deep venous system above the knee. The posterior tibial and peroneal veins are patent. US/US venous duplex LE LT IMPRESSION: No evidence of acute DVT in the left lower extremity. Electronically signed by: Higinio Cortes MD 11/11/2024 03:21 PM EDT
--- NOTE | ~2024-11-11 | US_ITS ---
EXAMINATION: Noninvasive assessment of the bilateral lower extremities with ARTERIAL DUPLEX, ANKLE BRACHIAL INDICES (ABIs), and PULSE VOLUME RECORDINGS (PVRs). CLINICAL INFORMATION: Nonhealing ulcer TECHNIQUE: Duplex Doppler techniques with waveform analysis and measurement of velocities in the bilateral common femoral, profunda femoris, superficial femoral, popliteal and tibial arteries were performed. Additionally, ankle pulse volume recordings, ankle pressure measurements and ankle brachial indices were obtained of the lower extremity arterial system bilaterally. The study was performed only at rest. COMPARISON: None FINDINGS: DIRECT DUPLEX DOPPLER FINDINGS: RIGHT LEG: Common femoral artery: 183 cm/s, phasicity: Triphasic. Profunda femoris artery: 109 cm/s, phasicity: Triphasic. Superficial femoral artery (proximal): 150 cm/s, phasicity: Triphasic. Superficial femoral artery (mid): 151 cm/s, phasicity: Monophasic. Superficial femoral artery (distal): 111 cm/s, phasicity: Triphasic. Popliteal artery: 176 cm/s, phasicity: Triphasic. Posterior tibial artery: 278 cm/s, phasicity: Monophasic. Peroneal artery: 64 cm/s, phasicity: Monophasic. Anterior tibial artery: 36 cm/s, phasicity: Biphasic. Dorsalis pedis artery: 35 cm/s, phasicity:Biphasic. LEFT LEG: Common femoral artery: 191 cm/s, phasicity: Triphasic. Profunda femoris artery: 88 cm/s, phasicity: Triphasic. Superficial femoral artery (proximal): 145 cm/s, phasicity: Triphasic. Superficial femoral artery (mid): 116 cm/s, phasicity: Triphasic. Superficial femoral artery (distal): 90 cm/s, phasicity: Triphasic. Popliteal artery: 127 cm/s, phasicity: Triphasic. Posterior tibial artery: 137 cm/s, phasicity: Triphasic. Peroneal artery: No color Doppler flow. Anterior tibial artery: 103 cm/s, phasicity: Biphasic. Dorsalis pedis artery: 143 cm/s, phasicity: Monophasic. BRACHIAL PRESSURES: Right: 186 Left: 182 ANKLE PRESSURES: Right: PT 202, DP 202 Left: PT 204, DP 203 ANKLE-BRACHIAL INDEX: Right: 1.09 Left: 1.1 ANKLE PVR WAVEFORMS: Right: Abnormal Left: Abnormal US/US arterial duplex BI w/ PANCHO IMPRESSION: Right leg: Moderate to severe inflow disease posterior tibialis to dorsalis pedis arteries. Left leg: Moderate to severe inflow disease dorsalis base artery. Minimal flow versus occluded peroneal artery. PANCHO Reference: - >1.4 = calcified vessels - 0.9 - 1.4 = normal - no significant arterial disease - 0.7 - 0.89 = mild peripheral arterial disease - 0.51 - 0.69 = moderate peripheral arterial disease - 0.50 = severe peripheral arterial disease - < .30 = critical arterial disease Electronically signed by: Markie Bar MD 11/18/2024 07:18 AM EDT
[2024-11-11 14:45] VITALS: BP 172/76; PULSE 68; RESP 16; TEMP 36.7; O2SAT 98; BMI 36.7
--- NOTE | 2024-11-11 14:50 | ED.GENADULT ---
HPI - General Adult General Chief complaint: General Medical Stated complaint: swollen L foot, pain on left ribs Time Seen by Provider: 11/11/24 15:20 Source: patient Mode of arrival: ambulatory Limitations: no limitations History of Present Illness ED Provider: ramesh marlow np HPI narrative: Patient is a 54-year-old male who presents emergency department for evaluation. He reports that he was seen here 1 week ago for low back pain, you had a CT scan which was negative. He states that since that visit he has realized that the pain worse but lying, he does have some improvement with the muscle relaxant when he is able to take it during the day, can not take overnight as he works overnight. He additionally states that since his last evaluation he is experienced swelling to the left lower extremity, denies any calf to the pain. He has redness and an ulceration to the left 3rd and 4th toe. He states about 1 year ago he was due to have the 4th digit amputated due to a diabetic ulcer, but had hyperkalemia on the day surgery was scheduled an ultimately the ulcer healed on his own so it was never amputated. He denies having any fevers or chills, no history of VTE/malignancy, no calf pain or tenderness, no precipitating injury to the back. Denies burning with micturition, urinary frequency/urgency/hesitancy, bladder or bowel dysfunction, numbness or tingling of the perineum or bilateral legs. Denies any recent surgical procedures, any known immune compromising conditions, personal history of cancer, or IV drug usage. Related Data Home Medications ?Medication ?Instructions ?Recorded ?Confirmed multivitamin 1 tab PO DAILY 03/11/22 11/11/24 omega-3 fatty acids-fish oil 684 1 cap PO DAILY 01/21/24 11/11/24 mg-1,200 mg capsule,delayed release acetaminophen 500 mg tablet 1,000 mg PO BID PRN Pain 11/11/24 11/11/24 cholecalciferol (vitamin D3) 50 50 mcg PO BEDTIME 11/11/24 11/11/24 mcg (2,000 unit) capsule fluticasone propionate 50 2 spray intranasal BID PRN for 11/11/24 11/11/24 mcg/actuation nasal allergies spray,suspension insulin glargine 100 unit/mL (3 15 unit subcut DAILY@1700 11/11/24 11/11/24 mL) subcutaneous pen (Basaglar KwikPen U-100 Insulin) sodium polystyrene sulfonate 30 g PO MOWEFR 11/11/24 11/11/24 zinc acetate 25 mg (zinc) capsule 25 mg PO DAILY 11/11/24 11/11/24 Previous Rx's ?Medication ?Instructions ?Recorded blood-glucose meter (FreeStyle #1 ea 03/11/22 Lite Meter kit) blood sugar diagnostic (FreeStyle #100 ea 07/25/22 Lite Strips) comp.stocking,knee,long,medium #12 ea 04/15/23 lancets 28 gauge (FreeStyle #100 ea 08/27/23 Lancets) empagliflozin 25 mg tablet 25 mg PO DAILY 3 months #90 tabs 02/12/24 ferrous sulfate 325 mg (65 mg 325 mg PO TID #270 tabs 05/16/24 iron) tablet clonidine HCl 0.2 mg tablet 0.2 mg PO BID 90 days #180 tabs 06/20/24 atorvastatin 40 mg tablet 40 mg PO BEDTIME 30 days #30 tabs 09/05/24 fenofibrate 54 mg tablet 54 mg PO DAILY #90 tabs 09/20/24 pen needle, diabetic 32 gauge x #120 ea 09/26/24 valsartan 160 mg tablet 160 mg PO BID 90 days #180 tabs 09/29/24 metformin 1,000 mg tablet 1,000 mg PO BID #180 tabs 10/10/24 carvedilol 12.5 mg tablet 12.5 mg PO BID 90 days #180 tabs 10/19/24 cyclobenzaprine 10 mg tablet 10 mg PO TID PRN muscle spasm #15 11/03/24 tabs furosemide 40 mg tablet 40 mg PO BID 90 days #180 tabs 11/07/24 Allergies Allergy/AdvReac Type Severity Reaction Status Date / Time No Known Allergies Allergy Verified 11/11/24 14:45 Review of Systems Review of Systems: Yes all other systems are reviewed and are negative PMFSH Past Medical History Attestation statement: The following information was validated with the patient. Source: old records reviewed Medical History CKD (chronic kidney disease) stage 3, GFR 30-59 ml/min Sleep apnea Chronic heart failure with preserved ejection fraction (HFpEF) Elevated cholesterol Iron deficiency anemia Chronic renal insufficiency Diabetic nephropathy Acute heart failure with preserved ejection fraction (HFpEF) Necrotizing subcutaneous infection Hypertension Type 2 diabetes Surgical History History of pyloromyotomy Status post incision and drainage [place] teeth removed Family History Family History Mother Diabetes Maternal Uncle Diabetes Sister Multiple sclerosis Father Liver failure Kidney failure Social History Social History Household Members: Significant Other and Children Both parents involved: No Caregiver staying overnight: No Housing: House Are you a primary career center advisor to a significant other at home: No Do you presently have visiting nurse or other home services: No 75 years or older and lives alone: No Alcohol intake: current Alcohol intake frequency: holidays/special occasions only Alcohol type: beer Patient Tobacco Use Status: Former Tobacco user Tobacco use type: Cigarette Years Smoked: 4 e-Cigarette/Vaping Use: Never Used Second Hand Smoke Exposure: Yes Substance Use Type: Marijuana Advance Directives Date on File: 05/07/23 service: No Current occupational status: employed Current occupation: [employer] Current occupational exposures/hazards: No Cognitive needs: No Hearing needs: No Vision needs: No Physical Exam ED Exam Exam: Appearance: Alert.?Oriented to person, place and time. No acute distress.?Normal affect. Eyes: Pupils equal, round and reactive to light.? ENT: Pharynx normal.?? Neck: Normal inspection.? Neck supple.?? CVS: Heart sounds normal. Normal heart rate and rhythm.? Pulses normal; bilateral radial pulses 2+, bilateral posterior tibial/dorsalis pedis pulses 2+.? Respiratory: No respiratory distress.? Lung sounds clear to auscultation bilaterally?? Abdomen: Soft and non-tender. Normoactive bowel sounds. No CVAT? Skin: Skin warm and dry.? Normal skin color.? ? Extremities: Nonpitting edema to the left foot, erythematous left 4th toe, localized swelling and ulceration over the left 3rd toe. No calf ttp? Back: No paraspinal muscular tenderness from lumbar region to coccyx. Pain localized to the lateral aspect of the left torso diffuse tenderness upon palpation. No CVA tenderness. No midline spinal tenderness, step-off's, or deformity. Full ROM intact in bilateral lower extremities. Straight leg test negative on right; Straight leg negative on left. No rashes, lesions, areas of induration or fluctuance, or signs of infection noted., Neuro: Moves all extremities spontaneously. 5/5 strength in hip extension/flexion, abduction, adduction. Sensation to light touch intact bilaterally. Patellar and Achilles reflex 2+ bilaterally. No ataxia, gait normal and steady.. No focal neuro deficits. Vital Signs: Vital Signs - 24 hr 11/11/24 14:45 Temperature 98.0 F Pulse Rate 68 Respiratory Rate 16 Blood Pressure 172/76 H Pulse Oximetry 98 Oxygen Delivery Method Room Air BMI result Body Mass Index 36.7 Course Course Course Narrative: RME: 54-year-old male presents to ED for left lower back pain radiating down left leg and also left leg swelling for the past week with 3+ edema. Patient denies urinary/bowel incontinence. Patient had normal CT scan of the back last week. Patient has redness swelling of 2nd toe. On exam positive for left lower extremity swelling with redness of 2nd toe with pitting edema. Labs x-ray ordered ultrasound Medications Administered Generic Name Dose Route Start Last Admin Trade Name Freq PRN Reason Stop Dose Admin Acetaminophen 650 mg 11/11/24 17:10 11/14/24 08:30 Acetaminophen 325 Mg Tablet PO 650 mg Q6H PRN Administration Pain, Mild 1-3,fever,headache Atorvastatin Calcium 40 mg 11/11/24 21:00 11/13/24 21:26 Atorvastatin Calcium 40 Mg Tablet PO 40 mg BEDTIME NICHOLAS Administration Carvedilol 12.5 mg 11/11/24 21:00 11/14/24 08:32 Carvedilol 12.5 Mg Tablet PO 12.5 mg BID NICHOLAS Administration Protocol Clonidine HCl 0.2 mg 11/11/24 21:00 11/14/24 08:32 Clonidine Hcl 0.2 Mg Tablet PO 0.2 mg BID NICHOLAS Administration Protocol Cyclobenzaprine HCl 10 mg 11/11/24 19:16 11/13/24 05:41 Cyclobenzaprine Hcl 10 Mg Tablet PO 10 mg TID PRN Administration Muscle Spasm Enoxaparin Sodium 40 mg 11/11/24 17:15 11/13/24 17:53 Enoxaparin Sodium 40 Mg/0.4 Ml Syringe SUBCUT 40 mg Q24H NICHOLAS Administration Fenofibrate 54 mg 11/12/24 09:00 11/14/24 08:31 Fenofibrate 54 Mg Tablet PO 54 mg DAILY NICHOLAS Administration Ferrous Sulfate 324 mg 11/11/24 21:00 11/14/24 08:33 Ferrous Sulfate 324 Mg Tablet.Dr PO 324 mg TID NICHOLAS Administration Furosemide 40 mg 11/11/24 21:00 11/14/24 08:31 Furosemide 40 Mg Tablet PO 40 mg BID NICHOLAS Administration Protocol Piperacillin Sod/Tazobactam 100 mls @ 200 mls/hr 11/12/24 03:00 11/14/24 09:41 Sod 4.5 gm/ Sodium Chloride IV 200 mls/hr Q6H NICHOLAS Infusion Vancomycin HCl 1,000 mg/ 270 mls @ 270 mls/hr 11/13/24 18:00 11/13/24 19:05 Sodium Chloride IV Infused Q24H NICHOLAS Infusion Insulin Glargine 12 unit 11/11/24 19:20 11/13/24 16:44 Insulin Glargine,Hum.Rec.Anlog 100 Unit/Ml 10 Ml Vial SUBCUT 12 unit DAILY@1700 [facility] Administration Insulin Human Lispro 0 unit 11/11/24 21:00 11/14/24 08:26 Insulin Lispro 100 Unit/Ml 3 Ml Vial SUBCUT Not Given QIDACHS [facility] Protocol Multivitamins/Vitamin C 1 tab 11/12/24 09:00 11/14/24 08:32 Multivitamin Tablet PO 1 tab DAILY NICHOLAS Administration Sodium Chloride 3 ml 11/12/24 00:00 11/14/24 08:34 0.9 % Sodium Chloride Flush 3 Ml Syringe IVFLUSH 3 ml QSHIFT [facility] Administration Sodium Polystyrene Sulfonate 30 gm 11/11/24 21:00 11/11/24 22:11 Sodium Polystyrene Sulfon/Sorb 15 Gm/60 Ml Oral.Susp PO 30 gm MOWEFR [facility] Administration Valsartan 160 mg 11/11/24 21:00 11/14/24 08:31 Valsartan 160 Mg Tablet PO 160 mg BID [facility] Administration Protocol Vitamin D 50 mcg 11/11/24 21:00 11/13/24 21:25 Cholecalciferol (Vitamin D3) 25 Mcg Tablet PO 50 mcg BEDTIME NICHOLAS Administration Discontinued Medications Generic Name Dose Route Start Last Admin Trade Name Ayesha PRN Reason Stop Dose Admin Hydralazine HCl 10 mg 11/12/24 10:49 11/12/24 12:03 Hydralazine Hcl 20 Mg/Ml Vial IVPUSH 11/12/24 10:50 10 mg ONCE ONE Administration Protocol Cefepime HCl 2 gm in 50 mls @ 100 mls/hr 11/11/24 16:13 11/11/24 17:48 Maxipime IV 11/11/24 16:42 Infused ONCE ONE Infusion Vancomycin HCl 2,000 mg in 500 mls @ 250 mls/hr 11/11/24 16:13 11/11/24 20:01 Vancomycin/Ns IV 11/11/24 18:12 Infused ONCE ONE Infusion Piperacillin Sod/Tazobactam 100 mls @ 200 mls/hr 11/11/24 17:00 11/11/24 23:49 Sod 4.5 gm/ Sodium Chloride IV Infused Q6H NICHOLAS Infusion Vancomycin HCl 1,250 mg/ 250 mls @ 166.667 mls/hr 11/12/24 18:00 11/12/24 19:57 Sodium Chloride IV Infused Q24H NICHOLAS Infusion Medical Decision Making Medical Decision Making [facility] Narrative: Patient is a 54-year-old male with past medical history of diabetes, hypertension, CKD, obesity, NACNY who preserved EF, hypercholesterolemia, RUDOLPH, diabetic neuropathy, history of necrotizing subcutaneous infection who presents for evaluation of persistent pain to the left lateral torso/flank which he states exacerbates with the eating. He has a benign abdominal examination. No CVAT. Denying associated diarrhea or constipation, no genitourinary symptoms there was seen in the emergency department 11/03/2024 at that time pain was exacerbated with movement, thought to be musculoskeletal in nature related to his back, he does admit that he does experience some improvement when he takes a cyclobenzaprine. On review CT scan reveals unremarkable large and small bowel, no nephrolithiasis or ureteral calculi, no hydronephrosis. Venous duplex ultrasound of the left lower extremity was obtained prior to my assumption of care and is without evidence of DVT. Serum labs obtained revealing elevated ESR of 108, CRP 0.8, no leukocytosis. XR of the left foot concerning for osteomyelitis of the 3rd digit. Planning for admission to medicine service for osteomyelitis spoke with hospitalist Dr. Mcbride, blood cultures will be obtained and will receive cefepime and vancomycin Differential Diagnosis Differential Diagnoses: The differential diagnosis associated with the presentation includes ( see narrative above) Admission/Observation Consideration of admission/observation: Escalation of care including admission/observation considered ( see narrative above) Lab Data MDM Lab Attestation statement: I reviewed the patient's lab results. CBC reveals a chronic stable normocytic anemia with H and H9.9 and 28.1 no significant change from 11/03/2024. CBC without leukocytosis or thrombocytopenia. No electrolyte derangement. Renal function consistent with CKD, not consistent with EZRA, LFTs unremarkable. CRP minimally elevated 0.8, ESR 108. 11/12/24 06:00 11/14/24 05:32 Labs: Lab Results 11/11/24 Range/Units 14:57 WBC 10.1 (4.8-10.8) X10*3/uL RBC 3.16 L (4.60-5.80) X10*6/uL Hgb 9.9 L (14.0-18.0) g/dl Hct 28.1 L (42.0-52.0) % MCV 88.9 (80.0-98.0) fL MCH 31.3 (27.0-33.0) pg MCHC 35.2 (31.0-36.0) g/dl RDW 12.0 (11.0-16.0) % Plt Count 255 (160-400) X10*3/uL MPV 10.8 (9.4-12.4) fL Immature Gran % (Auto) 0.4 (0.0-0.4) % Neut % (Auto) 65.7 (45-73) % Lymph % (Auto) 23.6 (20-40) % [place] % (Auto) 6.6 (2-11) % Eos % (Auto) 3.1 (0-4) % Baso % (Auto) 0.6 (0-2) % Lymph # (Auto) 2.4 (1.2-4.9) X10*3/uL [place] # (Auto) 0.7 (0.1-1.2) X10*3/uL Eos # (Auto) 0.3 (0.0-0.4) X10*3/uL Baso # (Auto) 0.1 (0.0-0.2) X10*3/uL Abs Immat Gran (auto) 0.04 H (0.00-0.03) X10*3/uL Absolute Neuts (auto) 6.6 (2.0-8.3) x10*3/uL Absolute Nucleated RBC 0.000 (0.0-0.012) X10*3/uL Nucleated RBC % (auto) 0.0 (0.0-0.2) /100WBC ESR 108 H (0-15) MM/HR PT 11.6 (10.9-12.4) SEC INR 1.0 (0.9-1.1) APTT 33.6 (26.0-36.8) SEC Sodium 137 (135-145) mmol/L Potassium 4.7 (3.3-5.1) mmol/L Chloride 107 (96-108) mmol/L Carbon Dioxide 24 (22-29) mmol/L Anion Gap 11 L (12-20) BUN 38 H (9-16) mg/dL Creatinine 2.42 H (0.5-1.4) mg/dL Estim Creat Clear Calc 42.8 Estimated GFR 28 Random Glucose 120 H (60-115) mg/dL Calcium 8.7 (8.4-10.2) mg/dL Total Bilirubin 0.3 (0.0-1.0) mg/dL AST 20 (5-37) U/L ALT 14 (0-40) U/L Alkaline Phosphatase 108 (39-117) U/L C-Reactive Protein 0.81 H (< or = 0.50) mg/dL Total Protein 7.7 (6.5-8.0) g/dL Albumin 3.7 (3.5-5.0) g/dL Independent Interpretation I performed an independent interpretation of an: Plain X-Ray (See narrative above) Radiology Impression Discussion of test interpretation with radiology: I have reviewed the radiologist's reading. Radiologist Impression: US/US venous duplex LE LT IMPRESSION: No evidence of acute DVT in the left lower extremity. XR/XR foot LT min 3V IMPRESSION: Lucency involving the middle phalanx and lucency and irregularity of the proximal phalanx head of the third digit is concerning for osteomyelitis and possible fracture of the head of the proximal phalanx and DIP joint septic arthritis. Suspected interval amputation of the fourth proximal phalanx head. Prescription Management I considered prescription management with: Pain Medication Critical Care Time Critical Care Time Critical Care Time: Yes Total Critical Care Time: 35 Attestation: Time is exclusive of separately billable procedures. Time includes: direct patient care, patient reassessment, coordination of patient care, interpretation of data (laboratory data, pulse oximetry), osteomyelitis and IV antibiotics, review of patient's medical records, medical consultation and documentation of patient care. Procedures excluded from critical care time: central intravenous line placement and electrocardiography. Discharge Plan Discharge Clinical Impression: Osteomyelitis of third toe of left foot Patient Disposition: Admitted As Inpatient Interventions: Admission Worksheet (ED) Last Done: 11/11/24 18:00 Discharge Date/Time: 11/11/24 20:35
[2024-11-11 15:09] LABS: MANUAL DIFF FLAG NO
[2024-11-11 15:11] LABS: Hematocrit 28.1 % (42.0-52.0); Hemoglobin 9.9 g/dl (14.0-18.0); Imm Gran Abs Auto 0.04 X10*3/uL (0.00-0.03); Imm Gran Pct Auto 0.4 % (0.0-0.4); Lymphocytes Absolute Auto 2.4 X10*3/uL (1.2-4.9); Mean Corpuscular HGB Conc 35.2 g/dl (31.0-36.0); Mean Corpuscular Hemoglobin 31.3 pg (27.0-33.0); Mean Corpuscular Volume 88.9 fL (80.0-98.0); NRBC Abs Auto 0.000 X10*3/uL (0.0-0.012); NRBC Pct Auto 0.0 /100WBC (0.0-0.2); Platelet Count 255 X10*3/uL (160-400); Red Blood Count 3.16 X10*6/uL (4.60-5.80); White Blood Count 10.1 X10*3/uL (4.8-10.8)
[2024-11-11 15:16] LABS: INTERNATIONAL NORM RATIO 1.0 (0.9-1.1); Prothrombin Time 11.6 SEC (10.9-12.4)
[2024-11-11 15:18] LABS: Partial Thromboplastin Time 33.6 SEC (26.0-36.8)
[2024-11-11 15:26] LABS: Alanine Aminotransferase 14 U/L (0-40); Albumin Level 3.7 g/dL (3.5-5.0); Alkaline Phosphatase 108 U/L (39-117); Anion Gap 11 (12-20); Aspartate Amino Transferase 20 U/L (5-37); Blood Urea Nitrogen 38 mg/dL (9-16); Calcium 8.7 mg/dL (8.4-10.2); Carbon Dioxide 24 mmol/L (22-29); Chloride 107 mmol/L (96-108); Creatinine Clr Calc Pharmacy 42.8; Estimated Glomerular Filt Rate 28; Potassium 4.7 mmol/L (3.3-5.1); Sodium 137 mmol/L (135-145); Total Protein 7.7 g/dL (6.5-8.0)
[2024-11-11] MEDS: cefEPime HCl/D5W 2 GM/50 ML PIGGYBACK IV (16:55)
--- NOTE | 2024-11-11 17:12 | P.HPHOSP_ITS ---
History of Present Illness Date of Service: 11/11/24 Chief Complaint: Toe infection This is a 54-year-old male with pertinent history of insulin-dependent diabetes mellitus, mixed hyperlipidemia, hypertension, diastolic congestive heart failure, CKD stage 3, obstructive sleep apnea who presents to the emergency department for left lower extremity swelling and discoloration of left toe. Patient was seen recently in the ER for back pain and discharged with muscle relaxants. Patient states his back pain is worse with movement and relieved with muscle relaxants. The muscle relaxants make him drowsy and he is unable to take it during work hours. Since he was last seen in the ER, he noticed left foot swelling mainly left 3rd toe with redness. No associated fever or chills. He denies chest pain, palpitations, shortness breath, abdominal pain, changes in urinary or bowel habits. In the emergency department, imaging with proximal head of 3rd digit concerning for osteomyelitis and DIP joint septic arthritis. Review of Systems 2 Constitutional: Constitutional: Reports no additional constitutional complaints Cardiovascular: Cardiovascular: Reports no additional cardiovascular complaints Respiratory: Respiratory: Reports no additional respiratory complaints Gastrointestinal: Gastrointestinal: Reports no additional gastrointestinal complaints Genitourinary: Genitourinary: Reports no additional male genitourinary complaints [facility] Medical History CKD (chronic kidney disease) stage 3, GFR 30-59 ml/min Sleep apnea Chronic heart failure with preserved ejection fraction (HFpEF) Elevated cholesterol Iron deficiency anemia Chronic renal insufficiency Diabetic nephropathy Acute heart failure with preserved ejection fraction (HFpEF) Necrotizing subcutaneous infection Hypertension Type 2 diabetes Family History Mother Diabetes Maternal Uncle Diabetes Sister Multiple sclerosis Father Liver failure Kidney failure Surgical History History of pyloromyotomy Status post incision and drainage [place] teeth removed Social History Household Members: Spouse Housing: House Are you a primary patient care manager to a significant other at home: No Do you presently have visiting nurse or other home services: No Alcohol intake: current Alcohol intake frequency: a few times a week Alcohol type: beer Patient Tobacco Use Status: Former Tobacco user Tobacco use type: Cigarette Years Smoked: 4 e-Cigarette/Vaping Use: Never Used Second Hand Smoke Exposure: Yes Substance Use Type: Marijuana Advance Directives: Yes Advance Directives Information Provided: Yes Advance Directives on File: No Advance Directives Date on File: 05/07/23 Do you have a plan to hurt others: No Plan service: No Current occupational status: employed Current occupation: [employer] Current occupational exposures/hazards: No Cognitive needs: No Hearing needs: No Vision needs: No Meds Allergies Allergy/AdvReac Type Severity Reaction Status Date / Time No Known Allergies Allergy Verified 11/11/24 14:45 Active Medications: Current Medications Vancomycin HCl (Vancomycin/Ns) 2,000 mg in 500 mls @ 250 mls/hr IV ONCE ONE Stop: 11/11/24 18:12 Home Medications ?Medication ?Instructions ?Recorded ?Confirmed ?Last Taken ?Type multivitamin 1 tab PO DAILY 03/11/2210/2505/04/23 History omega-3 fatty acids-fish oil 684 1 cap PO DAILY 11/07/24 Unknown History mg-1,200 mg capsule,delayed release sodium polystyrene sulfonate 30 g PO 3XW 11/07/2410/25 Unknown History Physical Exam 2 Vital Signs and Narrative: Vital Signs: Last Vital Signs Temp 98.0 F 11/11/24 14:45 Pulse 68 11/11/24 14:45 Resp 16 11/11/24 14:45 BP 172/76 H 11/11/24 14:45 Pulse Ox 98 11/11/24 14:45 O2 Del Method Room Air 11/11/24 14:45 BMI result Body Mass Index 36.7 Middle-aged male lying in bed in no distress Neck supple, no JVD Regular rate and rhythm, S1-S2 heard Regular breath sounds bilaterally, no wheezing or crackles appreciated Abdomen soft nontender, no guarding, no rigidity Patient is awake, alert and oriented to self, place, time and person ; no focal motor deficit Psych: Normal mood Left 3rd toe with erythema, , discoloration, swelling and warmth with ulceration as pictured below Results Labs 11/11/24 14:57 11/11/24 14:57 Labs: Laboratory Results - last 24 hr 11/11/24 14:57 MCV 88.9 MCH 31.3 MCHC 35.2 RDW 12.0 Plt Count 255 MPV 10.8 Immature Gran % (Auto) 0.4 Neut % (Auto) 65.7 Lymph % (Auto) 23.6 [place] % (Auto) 6.6 Eos % (Auto) 3.1 Baso % (Auto) 0.6 Lymph # (Auto) 2.4 [place] # (Auto) 0.7 Eos # (Auto) 0.3 Baso # (Auto) 0.1 Abs Immat Gran (auto) 0.04 H Absolute Neuts (auto) 6.6 Absolute Nucleated RBC 0.000 Nucleated RBC % (auto) 0.0 ESR 108 H PT 11.6 INR 1.0 APTT 33.6 Anion Gap 11 L Estim Creat Clear Calc 42.8 Estimated GFR 28 Random Glucose 120 H Calcium 8.7 Total Bilirubin 0.3 AST 20 ALT 14 Alkaline Phosphatase 108 C-Reactive Protein 0.81 H Total Protein 7.7 Albumin 3.7 Imaging Radiologist's Impressions: Impressions Venous Duplex 11/11/24 15:00 IMPRESSION: No evidence of acute DVT in the left lower extremity. Electronically signed by: Higinio Cortes MD 11/11/2024 03:21 PM EDT RP Foot X-Ray 11/11/24 15:45 IMPRESSION: Lucency involving the middle phalanx and lucency and irregularity of the proximal phalanx head of the third digit is concerning for osteomyelitis and possible fracture of the head of the proximal phalanx and DIP joint septic arthritis. Suspected interval amputation of the fourth proximal phalanx head. Electronically signed by: Zac Freeman MD 11/11/2024 04:06 PM EDT RP Assessment and Plan (1) Toe osteomyelitis, left: Status: Acute (2) Diabetic infection of left foot: Status: Acute (3) Septic arthritis: Status: Acute Plan This is a 54-year-old male with pertinent history of insulin-dependent diabetes mellitus, mixed hyperlipidemia, hypertension, diastolic congestive heart failure, CKD stage 3, obstructive sleep apnea who presents to the emergency department for left lower extremity swelling and discoloration of left toe. #. Left 3rd toe osteomyelitis with diabetic foot infection and septic arthritis: Will admit patient with IV vancomycin and Zosyn. Consulted Infectious Disease and vascular surgery, appreciate assistance. No sepsis #. Back pain, musculoskeletal: Cyclobenzaprine p.r.n. CT abdomen/pelvis on 11/03 without any acute abnormalities #. CKD stage 3: Creatinine at baseline #. NANCY: CPAP at bedtime #. Diastolic congestive heart failure/hypertension: Continue valsartan spironolactone, carvedilol, empagliflozin and furosemide #. Mixed hyperlipidemia: On statin #. Insulin-dependent diabetes initiating Accu-Cheks with sliding scale insulin. Reduce home basal insulin once med rec is complete Med rec pending DVT prophylaxis: Lovenox Full Code Admit as inpatient and will require two night minimum hospital stay for IV antibiotics (as above), which is not possible in a lesser acute setting. Specialist consult pending Quality Stroke Does the patient have a stroke diagnosis?: No VTE Prior VTE?: No VTE Risk Level:: Medical - moderate - high VTE Device Contraindication: Treatment Not Indicated VTE Drug Contraindication: N/A - Med Ordered
[2024-11-11] MEDS: vancomycin/NS 2,000 MG/500 ML PLAST..BAG 250 MG IV (17:48)
[2024-11-11 18:10] VITALS: BP 175/68; PULSE 70; RESP 20; TEMP 36.6; O2SAT 97
[2024-11-11 18:12] LABS: Glucose, Whole Blood 108 mg/dL (60-115)
--- NOTE | 2024-11-11 18:40 | PHA.MEDREC ---
Addendum entered by Desiree Castro [facility] 11/11/24 19:10: Reviewed by [facility] Original Note: Pharmacy Consult ? Medication Reconciliation Pharmacy has completed the medication reconciliation. Spoke to patient to confirm med list. Patient was able to name all his medications. Patient confirmed Basaglar KwikPen 15 units daily at 5:00pm, Sodium Polystyrene sulf 30 Gm Thursday, Thursday and Thursday, last dose was 11/09/24. Patient had all his morning medications today.
[2024-11-11 19:23] VITALS: BP 183/71; PULSE 73; RESP 14; TEMP 36.6; O2SAT 98
[2024-11-11 20:14] LABS: Appearance Urine Clear; Glucose Urine UA >=1000 mg/dL (Negative); PH 7.0 (5.0-9.0); Specific Gravity - Urine 1.015 (1.005-1.025); UMIC TRIGGER UACC YES
[2024-11-11 20:48] VITALS: BMI 36.7
[2024-11-11 21:01] VITALS: BP 195/71; PULSE 73; RESP 18; TEMP 36.7; O2SAT 98
[2024-11-11 21:07] LABS: Glucose, Whole Blood 152 mg/dL (60-115)
[2024-11-11] MEDS: Ferrous Sulfate 324 MG TABLET.DR PO (21:12)
[2024-11-11] MEDS: Insulin Glargine,Hum.rec.anlog 100 UNIT/ML 10 ML VIAL 12 UNIT SUBCUT (21:25)
[2024-11-11] MEDS: 0.9 % Sodium Chloride Flush 3 ML SYRINGE IVFLUSH (22:05)
[2024-11-11 23:59] VITALS: BP 175/83; PULSE 70; RESP 18; TEMP 36.7; O2SAT 98
[2024-11-12 03:46] VITALS: BP 163/72; PULSE 63; RESP 17; TEMP 36.8; O2SAT 99
[2024-11-12 06:12] LABS: MANUAL DIFF FLAG NO
[2024-11-12 06:26] LABS: Hematocrit 26.8 % (42.0-52.0); Hemoglobin 9.2 g/dl (14.0-18.0); Imm Gran Abs Auto 0.03 X10*3/uL (0.00-0.03); Imm Gran Pct Auto 0.3 % (0.0-0.4); Lymphocytes Absolute Auto 2.2 X10*3/uL (1.2-4.9); Mean Corpuscular HGB Conc 34.3 g/dl (31.0-36.0); Mean Corpuscular Hemoglobin 31.1 pg (27.0-33.0); Mean Corpuscular Volume 90.5 fL (80.0-98.0); NRBC Abs Auto 0.000 X10*3/uL (0.0-0.012); NRBC Pct Auto 0.0 /100WBC (0.0-0.2); Platelet Count 234 X10*3/uL (160-400); Red Blood Count 2.96 X10*6/uL (4.60-5.80); White Blood Count 9.3 X10*3/uL (4.8-10.8)
[2024-11-12 06:30] LABS: Anion Gap 11 (12-20); Blood Urea Nitrogen 35 mg/dL (9-16); Calcium 8.2 mg/dL (8.4-10.2); Carbon Dioxide 21 mmol/L (22-29); Chloride 112 mmol/L (96-108); Creatinine Clr Calc Pharmacy 43.9; Estimated Glomerular Filt Rate 29; Potassium 4.6 mmol/L (3.3-5.1); Sodium 139 mmol/L (135-145)
[2024-11-12 07:46] LABS: Glucose, Whole Blood 126 mg/dL (60-115)
[2024-11-12 07:58] VITALS: BP 180/81; PULSE 58; RESP 12; TEMP 36.8; O2SAT 98
[2024-11-12] MEDS: Ferrous Sulfate 324 MG TABLET.DR PO ×3 (09:03→20:28)
[2024-11-12] MEDS: 0.9 % Sodium Chloride Flush 3 ML SYRINGE IVFLUSH ×3 (09:09→20:28)
--- NOTE | 2024-11-12 10:21 | P.PNIM_ITS ---
Subjective Subjective Date of Service: 11/12/24 Interval History: Follow up for toe osteomyelitis. Denies any new complaints. No significant nursing events overnight. Back pain improved Constitutional Constitutional: Reports no additional constitutional complaints Cardiovascular Cardiovascular: Reports no additional cardiovascular complaints Respiratory Respiratory: Reports no additional respiratory complaints Gastrointestinal Gastrointestinal: Reports no additional gastrointestinal complaints Genitourinary Genitourinary: Reports no additional male genitourinary complaints Physical Exam 2 Exam: Exam: Middle-aged male lying in bed in no distress Neck supple, no JVD Regular rate and rhythm, S1-S2 heard Regular breath sounds bilaterally, no wheezing or crackles appreciated Abdomen soft nontender, no guarding, no rigidity Patient is awake, alert and oriented to self, place, time and person ; no focal motor deficit Psych: Normal mood Left 3rd toe with erythema, , discoloration, swelling and warmth with ulceration (picture in HPI) Vital Signs: Vital Signs: Last Vital Signs Temp 98.3 F 11/12/24 07:58 Pulse 58 11/12/24 07:58 Resp 12 11/12/24 07:58 BP 180/81 H 11/12/24 07:58 Pulse Ox 98 11/12/24 07:58 O2 Del Method Room Air 11/12/24 07:58 BMI result Body Mass Index 36.7 Objective Data Active Medications Acetaminophen (Acetaminophen 325 Mg Tablet) 650 mg PO Q6H PRN PRN Reason: Pain, Mild 1-3,fever,headache Atorvastatin Calcium (Atorvastatin Calcium 40 Mg Tablet) 40 mg PO BEDTIME [facility] Last Admin: 11/11/24 21:12 Dose: 40 mg Documented By: СВЕТЛАНА Calcium Carbonate (Calcium Carbonate 750 Mg Tab.Chew) 750 mg PO Q4H PRN PRN Reason: Heartburn Carvedilol (Carvedilol 12.5 Mg Tablet) 12.5 mg PO BID [facility]; Protocol Last Admin: 11/12/24 09:04 Dose: 12.5 mg Documented By: ANAM Clonidine HCl (Clonidine Hcl 0.2 Mg Tablet) 0.2 mg PO BID [facility]; Protocol Last Admin: 11/12/24 09:03 Dose: 0.2 mg Documented By: ANAM Cyclobenzaprine HCl (Cyclobenzaprine Hcl 5 Mg Tablet) 5 mg PO TID PRN PRN Reason: Muscle Spasm Cyclobenzaprine HCl (Cyclobenzaprine Hcl 10 Mg Tablet) 10 mg PO TID PRN PRN Reason: Muscle Spasm Dextrose (Dextrose 50 % 25 Gm/50 Ml Syringe) 25 gm IVPUSH Q15M PRN; Protocol PRN Reason: per Hypoglycemia Standing Ord. Dextrose (Dextrose 50 % 25 Gm/50 Ml Syringe) 25 gm IVPUSH Q15M PRN; Protocol PRN Reason: per Hypoglycemia Standing Ord. Enoxaparin Sodium (Enoxaparin Sodium 40 Mg/0.4 Ml Syringe) 40 mg SUBCUT Q24H [facility] Last Admin: 11/11/24 21:11 Dose: 40 mg Documented By: СВЕТЛАНА Comments: pt is a new admit just got to the floor Fenofibrate (Fenofibrate 54 Mg Tablet) 54 mg PO DAILY [facility] Last Admin: 11/12/24 09:04 Dose: 54 mg Documented By: ANAM Ferrous Sulfate (Ferrous Sulfate 324 Mg Tablet.Dr) 324 mg PO TID [facility] Last Admin: 11/12/24 09:03 Dose: 324 mg Documented By: ANAM Fluticasone Propionate (Fluticasone Propionate Nasal 16 Gm [place]) 2 spray NOSTRIL-B BID PRN PRN Reason: for allergies Furosemide (Furosemide 40 Mg Tablet) 40 mg PO BID [facility]; Protocol Last Admin: 11/12/24 09:03 Dose: 40 mg Documented By: ANAM Glucose (Glucose Gel 15 Gm Gel..Gram.) 15 gm PO Q15M PRN; Protocol PRN Reason: per Hypoglycemia Standing Ord. Glucose (Glucose Gel 15 Gm Gel..Gram.) 15 gm PO Q15M PRN; Protocol PRN Reason: per Hypoglycemia Standing Ord. Vancomycin HCl 1,250 mg/ (Sodium Chloride) 250 mls @ 166.667 mls/hr IV Q24H [facility] Piperacillin Sod/Tazobactam (Sod 4.5 gm/ Sodium Chloride) 100 mls @ 200 mls/hr IV Q6H [facility] Last Infusion: 11/12/24 10:08 Dose: Infused Documented By: ANAM Insulin Glargine (Insulin Glargine,Hum.Rec.Anlog 100 Unit/Ml 10 Ml Vial) 12 unit SUBCUT DAILY@1700 [facility] Last Admin: 11/11/24 21:25 Dose: 12 unit Documented By: СВЕТЛАНА Insulin Human Lispro (Insulin Lispro 100 Unit/Ml 3 Ml Vial) 0 unit SUBCUT QIDACHS [facility]; Protocol Last Admin: 11/12/24 07:49 Dose: Not Given Documented By: ANAM Non-Admin Reason: No Insulin Coverage Magnesium Hydroxide (Milk Of Magnesia 30 Ml Oral.Susp) 30 ml PO DAILY PRN PRN Reason: Constipation Melatonin (Melatonin 3 Mg Tablet) 6 mg PO BEDTIME PRN PRN Reason: Insomnia Multivitamins/Vitamin C (Multivitamin Tablet) 1 tab PO DAILY [facility] Last Admin: 11/12/24 09:04 Dose: 1 tab Documented By: ANAM Ondansetron HCl (Ondansetron Hcl 4 Mg/2 Ml Vial) 4 mg IVPUSH Q8H PRN PRN Reason: Nausea and Vomiting Pharmacy Consult (Consult Rx Vancomycin Dosing) 1 each MISCELLANE DAILY PRN PRN Reason: Consult order Sodium Chloride (0.9 % Sodium Chloride Flush 3 Ml Syringe) 3 ml IVFLUSH QSHIFT [facility] Last Admin: 11/12/24 09:09 Dose: 3 ml Documented By: ANAM Sodium Polystyrene Sulfonate (Sodium Polystyrene Sulfon/Sorb 15 Gm/60 Ml Oral.Susp) 30 gm PO MOWEFR [facility] Last Admin: 11/11/24 22:11 Dose: 30 gm Documented By: СВЕТЛАНА Comments: pt is a new admit just admitted to the unit Valsartan (Valsartan 160 Mg Tablet) 160 mg PO BID [facility]; Protocol Last Admin: 11/12/24 09:04 Dose: 160 mg Documented By: ANAM Vitamin D (Cholecalciferol (Vitamin D3) 25 Mcg Tablet) 50 mcg PO BEDTIME [facility] Last Admin: 11/11/24 21:13 Dose: 50 mcg Documented By: СВЕТЛАНА Labs 11/12/24 06:00 11/12/24 06:00 Labs: Laboratory Results - last 24 hr 11/11/24 11/11/24 11/11/24 14:57 18:09 20:00 MCV 88.9 MCH 31.3 MCHC 35.2 RDW 12.0 Plt Count 255 MPV 10.8 Immature Gran % (Auto) 0.4 Neut % (Auto) 65.7 Lymph % (Auto) 23.6 Brooks % (Auto) 6.6 Eos % (Auto) 3.1 Baso % (Auto) 0.6 Lymph # (Auto) 2.4 Brooks # (Auto) 0.7 Eos # (Auto) 0.3 Baso # (Auto) 0.1 Abs Immat Gran (auto) 0.04 H Absolute Neuts (auto) 6.6 Absolute Nucleated RBC 0.000 Nucleated RBC % (auto) 0.0 ESR 108 H PT 11.6 INR 1.0 APTT 33.6 Anion Gap 11 L Estim Creat Clear Calc 42.8 Estimated GFR 28 POC Glucose 108 Random Glucose 120 H Calcium 8.7 Total Bilirubin 0.3 AST 20 ALT 14 Alkaline Phosphatase 108 C-Reactive Protein 0.81 H Total Protein 7.7 Albumin 3.7 Urine Color Yellow Urine Appearance Clear Urine pH 7.0 Ur Specific [place] 1.015 Urine Protein 300 (3+) H Urine Glucose (UA) >=1000 H Urine Ketones Negative Urine Blood Trace H Urine Nitrite Negative Ur Leukocyte Esterase Negative Urine RBC 3-5 H Urine WBC 0-5 Ur Squamous Epith Cells 0-2 Urine Bacteria None Seen Hyaline Casts 0-2 11/11/24 11/12/24 11/12/24 20:59 06:00 07:25 MCV 90.5 MCH 31.1 MCHC 34.3 RDW 11.9 Plt Count 234 MPV 11.1 Immature Gran % (Auto) 0.3 Neut % (Auto) 66.3 Lymph % (Auto) 23.0 Brooks % (Auto) 6.9 Eos % (Auto) 2.8 Baso % (Auto) 0.7 Lymph # (Auto) 2.2 Brooks # (Auto) 0.6 Eos # (Auto) 0.3 Baso # (Auto) 0.1 Abs Immat Gran (auto) 0.03 Absolute Neuts (auto) 6.2 Absolute Nucleated RBC 0.000 Nucleated RBC % (auto) 0.0 ESR PT INR APTT Anion Gap 11 L Estim Creat Clear Calc 43.9 Estimated GFR 29 POC Glucose 152 H 126 H Random Glucose 167 H Calcium 8.2 L Total Bilirubin AST ALT Alkaline Phosphatase C-Reactive Protein Total Protein Albumin Urine Color Urine Appearance Urine pH Ur Specific [place] Urine Protein Urine Glucose (UA) Urine Ketones Urine Blood Urine Nitrite Ur Leukocyte Esterase Urine RBC Urine WBC Ur Squamous Epith Cells Urine Bacteria Hyaline Casts Assessment and Plan (1) Toe osteomyelitis, left: Status: Acute (2) Septic arthritis: Status: Acute Plan This is a 54-year-old male with pertinent history of insulin-dependent diabetes mellitus, mixed hyperlipidemia, hypertension, diastolic congestive heart failure, CKD stage 3, obstructive sleep apnea who presents to the emergency department for left lower extremity swelling and discoloration of left toe. #. Left 3rd toe osteomyelitis with diabetic foot infection and septic arthritis: Continue IV vancomycin and Zosyn. Awaiting ID and vascular surgery eval. No sepsis. Blood cultures negative to date #. Back pain, musculoskeletal: Cyclobenzaprine p.r.n. CT abdomen/pelvis on 11/03 without any acute abnormalities #. CKD stage 3: Creatinine at baseline #. NANCY: CPAP at bedtime #. Diastolic congestive heart failure/hypertension: Continue valsartan spironolactone, carvedilol, empagliflozin and furosemide #. Mixed hyperlipidemia: On statin #. Insulin-dependent diabetes initiating Accu-Cheks with sliding scale insulin. Reduced home basal insulin DVT prophylaxis: Lovenox Full Code Reason for continued hospitalization: IV antibiotics. Awaiting cultures and specialist eval Quality Stroke Does the patient have a stroke diagnosis?: No VTE Prior VTE?: No VTE Risk Level:: Medical - moderate - high VTE Device Contraindication: Treatment Not Indicated VTE Drug Contraindication: N/A - Med Ordered
[2024-11-12 11:44] LABS: Glucose, Whole Blood 180 mg/dL (60-115)
[2024-11-12 15:30] VITALS: BP 157/75; PULSE 60; RESP 14; TEMP 36.6; O2SAT 99
[2024-11-12 15:58] LABS: Glucose, Whole Blood 123 mg/dL (60-115)
[2024-11-12] MEDS: Insulin Glargine,Hum.rec.anlog 100 UNIT/ML 10 ML VIAL 12 UNIT SUBCUT (16:01)
--- NOTE | 2024-11-12 16:09 | MHC.CM.PN ---
PT REPORTS HE LIVES WITH HIS S/O AND IS INDEPENDENT WITH CARE HE USES A CPAP FOR DME AND HAS NO SERVICES HE DECLINES A HCP PCP: ZAKIYA LEWIS DCP: HOME VIA SELF TRANSPORT
[2024-11-12 20:08] LABS: Glucose, Whole Blood 138 mg/dL (60-115)
[2024-11-12 21:43] VITALS: BP 188/75; PULSE 63; RESP 17; TEMP 36.8; O2SAT 98
[2024-11-12 23:54] VITALS: BP 168/72; PULSE 61; RESP 18; TEMP 36.4; O2SAT 98
--- NOTE | 2024-11-13 00:02 | PC.NURSE ---
Patient has had elevated BP readings since admission on 11/11/24. Most recent BP was 168/72 at 00:17am. Patient remains asymptomatic. Medications administered as ordered. MD notified of elevated readings and patient status. No no orders at this time. Patient resting comfortably in bed, vitals otherwise stable. Will continue to monitor.
[2024-11-13 06:32] LABS: Creatinine Clr Calc Pharmacy 40.1; Estimated Glomerular Filt Rate 26
[2024-11-13 07:34] LABS: Glucose, Whole Blood 110 mg/dL (60-115)
[2024-11-13 07:57] VITALS: BP 189/86; PULSE 59; RESP 16; TEMP 36.4; O2SAT 98
--- NOTE | 2024-11-13 08:23 | P.PNIM_ITS ---
Subjective Subjective Date of Service: 11/13/24 Interval History: Follow up for toe osteomyelitis. Denies any new complaints. No significant nursing events overnight. Back pain improved Physical Exam 2 Exam: Exam: Middle-aged male lying in bed in no distress Neck supple, no JVD Regular rate and rhythm, S1-S2 heard Regular breath sounds bilaterally, no wheezing or crackles appreciated Abdomen soft nontender, no guarding, no rigidity Patient is awake, alert and oriented to self, place, time and person ; no focal motor deficit Psych: Normal mood Left 3rd toe with erythema, , discoloration, swelling and warmth with ulceration (picture in HPI) Vital Signs: Vital Signs: Last Vital Signs Temp 97.5 F 11/13/24 07:57 Pulse 59 11/13/24 07:57 Resp 16 11/13/24 07:57 BP 189/86 H 11/13/24 07:57 Pulse Ox 98 11/13/24 07:57 O2 Del Method Room Air 11/13/24 07:57 BMI result Body Mass Index 36.7 Objective Data Active Medications Acetaminophen (Acetaminophen 325 Mg Tablet) 650 mg PO Q6H PRN PRN Reason: Pain, Mild 1-3,fever,headache Last Admin: 11/12/24 14:13 Dose: 650 mg Documented By: DREW Atorvastatin Calcium (Atorvastatin Calcium 40 Mg Tablet) 40 mg PO BEDTIME NICHOLAS Last Admin: 11/12/24 20:27 Dose: 40 mg Documented By: СВЕТЛАНА Calcium Carbonate (Calcium Carbonate 750 Mg Tab.Chew) 750 mg PO Q4H PRN PRN Reason: Heartburn Carvedilol (Carvedilol 12.5 Mg Tablet) 12.5 mg PO BID [facility]; Protocol Last Admin: 11/12/24 20:27 Dose: 12.5 mg Documented By: СВЕТЛАНА Clonidine HCl (Clonidine Hcl 0.2 Mg Tablet) 0.2 mg PO BID [facility]; Protocol Last Admin: 11/12/24 20:27 Dose: 0.2 mg Documented By: СВЕТЛАНА Cyclobenzaprine HCl (Cyclobenzaprine Hcl 5 Mg Tablet) 5 mg PO TID PRN PRN Reason: Muscle Spasm Cyclobenzaprine HCl (Cyclobenzaprine Hcl 10 Mg Tablet) 10 mg PO TID PRN PRN Reason: Muscle Spasm Last Admin: 11/13/24 05:41 Dose: 10 mg Documented By: СВЕТЛАНА Dextrose (Dextrose 50 % 25 Gm/50 Ml Syringe) 25 gm IVPUSH Q15M PRN; Protocol PRN Reason: per Hypoglycemia Standing Ord. Dextrose (Dextrose 50 % 25 Gm/50 Ml Syringe) 25 gm IVPUSH Q15M PRN; Protocol PRN Reason: per Hypoglycemia Standing Ord. Enoxaparin Sodium (Enoxaparin Sodium 40 Mg/0.4 Ml Syringe) 40 mg SUBCUT Q24H [facility] Last Admin: 11/12/24 16:50 Dose: 40 mg Documented By: DREW Fenofibrate (Fenofibrate 54 Mg Tablet) 54 mg PO DAILY [facility] Last Admin: 11/12/24 09:04 Dose: 54 mg Documented By: ANAM Ferrous Sulfate (Ferrous Sulfate 324 Mg Tablet.Dr) 324 mg PO TID [facility] Last Admin: 11/12/24 20:28 Dose: 324 mg Documented By: СВЕТЛАНА Fluticasone Propionate (Fluticasone Propionate Nasal 16 Gm [place]) 2 spray NOSTRIL-B BID PRN PRN Reason: for allergies Furosemide (Furosemide 40 Mg Tablet) 40 mg PO BID [facility]; Protocol Last Admin: 11/12/24 20:27 Dose: 40 mg Documented By: СВЕТЛАНА Glucose (Glucose Gel 15 Gm Gel..Gram.) 15 gm PO Q15M PRN; Protocol PRN Reason: per Hypoglycemia Standing Ord. Glucose (Glucose Gel 15 Gm Gel..Gram.) 15 gm PO Q15M PRN; Protocol PRN Reason: per Hypoglycemia Standing Ord. Vancomycin HCl 1,250 mg/ (Sodium Chloride) 250 mls @ 166.667 mls/hr IV Q24H [facility] Last Infusion: 11/12/24 19:57 Dose: Infused Documented By: СВЕТЛАНА Piperacillin Sod/Tazobactam (Sod 4.5 gm/ Sodium Chloride) 100 mls @ 200 mls/hr IV Q6H [facility] Last Infusion: 11/13/24 03:40 Dose: Infused Documented By: СВЕТЛАНА Insulin Glargine (Insulin Glargine,Hum.Rec.Anlog 100 Unit/Ml 10 Ml Vial) 12 unit SUBCUT DAILY@1700 [facility] Last Admin: 11/12/24 16:01 Dose: 12 unit Documented By: DREW Insulin Human Lispro (Insulin Lispro 100 Unit/Ml 3 Ml Vial) 0 unit SUBCUT QIDACHS [facility]; Protocol Last Admin: 11/13/24 07:40 Dose: Not Given Documented By: ANA LILIA Non-Admin Reason: No Insulin Coverage Magnesium Hydroxide (Milk Of Magnesia 30 Ml Oral.Susp) 30 ml PO DAILY PRN PRN Reason: Constipation Melatonin (Melatonin 3 Mg Tablet) 6 mg PO BEDTIME PRN PRN Reason: Insomnia Multivitamins/Vitamin C (Multivitamin Tablet) 1 tab PO DAILY [facility] Last Admin: 11/12/24 09:04 Dose: 1 tab Documented By: ANAM Ondansetron HCl (Ondansetron Hcl 4 Mg/2 Ml Vial) 4 mg IVPUSH Q8H PRN PRN Reason: Nausea and Vomiting Pharmacy Consult (Consult Rx Vancomycin Dosing) 1 each MISCELLANE DAILY PRN PRN Reason: Consult order Sodium Chloride (0.9 % Sodium Chloride Flush 3 Ml Syringe) 3 ml IVFLUSH QSHIFT [facility] Last Admin: 11/12/24 20:28 Dose: 3 ml Documented By: СВЕТЛАНА Sodium Polystyrene Sulfonate (Sodium Polystyrene Sulfon/Sorb 15 Gm/60 Ml Oral.Susp) 30 gm PO MOWEFR [facility] Last Admin: 11/11/24 22:11 Dose: 30 gm Documented By: СВЕТЛАНА Comments: pt is a new admit just admitted to the unit Valsartan (Valsartan 160 Mg Tablet) 160 mg PO BID [facility]; Protocol Last Admin: 11/12/24 20:27 Dose: 160 mg Documented By: СВЕТЛАНА Vitamin D (Cholecalciferol (Vitamin D3) 25 Mcg Tablet) 50 mcg PO BEDTIME [facility] Last Admin: 11/12/24 20:27 Dose: 50 mcg Documented By: СВЕТЛАНА Labs 11/12/24 06:00 11/14/24 05:32 Labs: Laboratory Results - last 24 hr 11/12/24 11/12/24 11/12/24 11:25 15:54 20:01 Hold Purple Top Estim Creat Clear Calc Estimated GFR POC Glucose 180 H 123 H 138 H 11/13/24 11/13/24 05:52 07:24 Hold Purple Top SEE NOTE Estim Creat Clear Calc 40.1 Estimated GFR 26 POC Glucose 110 Microbiology Microbiology Results: Microbiology 11/11/24 16:31 Blood Culture - Preliminary Blood - Venous No growth after 24 hours. 11/11/24 16:31 Blood Culture - Preliminary Blood - Venous No growth after 24 hours. Assessment and Plan (1) Toe osteomyelitis, left: Status: Acute (2) Septic arthritis: Status: Acute Plan This is a 54-year-old male with pertinent history of insulin-dependent diabetes mellitus, mixed hyperlipidemia, hypertension, diastolic congestive heart failure, CKD stage 3, obstructive sleep apnea who presents to the emergency department for left lower extremity swelling and discoloration of left toe. Left 3rd toe osteomyelitis with diabetic foot infection and septic arthritis Continue IV vancomycin and Zosyn. Awaiting ID and vascular surgery eval. follow cultures will likely need custodial Abx and PICC line Back pain, musculoskeletal: Cyclobenzaprine p.r.n. CT abdomen/pelvis on 11/03 without any acute abnormalities CKD stage 3: Creatinine at baseline HTN, BP elevated this morning continue Valsartan, Coreg and if needed add Norvasc NANCY: CPAP at bedtime Diastolic congestive heart failure/hypertension: Continue valsartan spironolactone, carvedilol, empagliflozin and furosemide Mixed hyperlipidemia: On statin Insulin-dependent diabetes initiating Accu-Cheks with sliding scale insulin. Reduced home basal insulin DVT prophylaxis: Lovenox Full Code Reason for continued hospitalization: IV antibiotics. Awaiting cultures and specialist eval Quality Stroke Does the patient have a stroke diagnosis?: No VTE Prior VTE?: No VTE Risk Level:: Medical - moderate - high VTE Device Contraindication: Treatment Not Indicated VTE Drug Contraindication: N/A - Med Ordered
[2024-11-13] MEDS: Ferrous Sulfate 324 MG TABLET.DR PO ×3 (08:26→21:25)
[2024-11-13 09:25] VITALS: BP 160/64
[2024-11-13 11:17] LABS: Glucose, Whole Blood 170 mg/dL (60-115)
[2024-11-13 15:32] VITALS: BP 156/76; PULSE 50; RESP 15; TEMP 36.5; O2SAT 98
[2024-11-13 16:09] LABS: Glucose, Whole Blood 148 mg/dL (60-115)
[2024-11-13] MEDS: Insulin Glargine,Hum.rec.anlog 100 UNIT/ML 10 ML VIAL 12 UNIT SUBCUT (16:44)
--- NOTE | 2024-11-13 17:21 | HE.PHANOTE ---
VANCOMYCIN ADDENDUM: LEVEL CAME BACK AT 15.5 AFTER 2 DOSES, PREDICTED AUC OVER 600, REDUCED DOSE TO 1 GRAM AND WILL TAKE ANOTHER LEVEL LIZETH
[2024-11-13 20:43] LABS: Glucose, Whole Blood 150 mg/dL (60-115)
[2024-11-13 20:58] VITALS: BP 192/78; PULSE 62; RESP 18; TEMP 37.3; O2SAT 97
[2024-11-13] MEDS: 0.9 % Sodium Chloride Flush 3 ML SYRINGE IVFLUSH (21:29)
[2024-11-13 23:37] VITALS: BP 172/80; PULSE 61; RESP 18; TEMP 36.7; O2SAT 97
[2024-11-14] VITALS (9 sets, daily range): BP systolic 166–204; BP diastolic 70–90; PULSE 54–64; RESP 12–18; TEMP 36.2–36.8; O2SAT 96–98
[2024-11-14 06:22] LABS: Creatinine Clr Calc Pharmacy 34.5; Estimated Glomerular Filt Rate 22
[2024-11-14 07:34] LABS: Glucose, Whole Blood 108 mg/dL (60-115)
[2024-11-14] MEDS: Ferrous Sulfate 324 MG TABLET.DR PO ×3 (08:33→20:51)
[2024-11-14] MEDS: 0.9 % Sodium Chloride Flush 3 ML SYRINGE IVFLUSH ×3 (08:34→21:00)
--- NOTE | 2024-11-14 10:47 | P.PNIM_ITS ---
Subjective Subjective Date of Service: 11/14/24 Interval History: Follow up for toe osteomyelitis. Denies any new complaints. No significant nursing events overnight. Back pain improved Physical Exam 2 Exam: Exam: Middle-aged male lying in bed in no distress Neck supple, no JVD Regular rate and rhythm, S1-S2 heard Regular breath sounds bilaterally, no wheezing or crackles appreciated Abdomen soft nontender, no guarding, no rigidity Patient is awake, alert and oriented to self, place, time and person ; no focal motor deficit Psych: Normal mood Left 3rd toe with erythema, , discoloration, swelling and warmth with ulceration (picture in HPI) Vital Signs: Vital Signs: Last Vital Signs Temp 97.1 F 11/14/24 07:44 Pulse 54 11/14/24 10:18 Resp 12 11/14/24 10:18 BP 166/70 H 11/14/24 10:20 Pulse Ox 96 11/14/24 10:18 O2 Del Method Room Air 11/14/24 10:18 BMI result Body Mass Index 36.7 Objective Data Active Medications Acetaminophen (Acetaminophen 325 Mg Tablet) 650 mg PO Q6H PRN PRN Reason: Pain, Mild 1-3,fever,headache Last Admin: 11/14/24 08:30 Dose: 650 mg Documented By: SHOBHA Atorvastatin Calcium (Atorvastatin Calcium 40 Mg Tablet) 40 mg PO BEDTIME NICHOLAS Last Admin: 11/13/24 21:26 Dose: 40 mg Documented By: MINAL Calcium Carbonate (Calcium Carbonate 750 Mg Tab.Chew) 750 mg PO Q4H PRN PRN Reason: Heartburn Carvedilol (Carvedilol 12.5 Mg Tablet) 12.5 mg PO BID [facility]; Protocol Last Admin: 11/14/24 08:32 Dose: 12.5 mg Documented By: SHOBHA Clonidine HCl (Clonidine Hcl 0.2 Mg Tablet) 0.2 mg PO BID [facility]; Protocol Last Admin: 11/14/24 08:32 Dose: 0.2 mg Documented By: SHOBHA Cyclobenzaprine HCl (Cyclobenzaprine Hcl 5 Mg Tablet) 5 mg PO TID PRN PRN Reason: Muscle Spasm Cyclobenzaprine HCl (Cyclobenzaprine Hcl 10 Mg Tablet) 10 mg PO TID PRN PRN Reason: Muscle Spasm Last Admin: 11/13/24 05:41 Dose: 10 mg Documented By: СВЕТЛАНА Dextrose (Dextrose 50 % 25 Gm/50 Ml Syringe) 25 gm IVPUSH Q15M PRN; Protocol PRN Reason: per Hypoglycemia Standing Ord. Dextrose (Dextrose 50 % 25 Gm/50 Ml Syringe) 25 gm IVPUSH Q15M PRN; Protocol PRN Reason: per Hypoglycemia Standing Ord. Enoxaparin Sodium (Enoxaparin Sodium 40 Mg/0.4 Ml Syringe) 40 mg SUBCUT Q24H [facility] Last Admin: 11/13/24 17:53 Dose: 40 mg Documented By: VANDANA Fenofibrate (Fenofibrate 54 Mg Tablet) 54 mg PO DAILY [facility] Last Admin: 11/14/24 08:31 Dose: 54 mg Documented By: SHOBHA Ferrous Sulfate (Ferrous Sulfate 324 Mg Tablet.Dr) 324 mg PO TID [facility] Last Admin: 11/14/24 08:33 Dose: 324 mg Documented By: SHOBHA Fluticasone Propionate (Fluticasone Propionate Nasal 16 Gm [place]) 2 spray NOSTRIL-B BID PRN PRN Reason: for allergies Furosemide (Furosemide 40 Mg Tablet) 40 mg PO BID [facility]; Protocol Last Admin: 11/14/24 08:31 Dose: 40 mg Documented By: SHOBHA Glucose (Glucose Gel 15 Gm Gel..Gram.) 15 gm PO Q15M PRN; Protocol PRN Reason: per Hypoglycemia Standing Ord. Glucose (Glucose Gel 15 Gm Gel..Gram.) 15 gm PO Q15M PRN; Protocol PRN Reason: per Hypoglycemia Standing Ord. Piperacillin Sod/Tazobactam (Sod 4.5 gm/ Sodium Chloride) 100 mls @ 200 mls/hr IV Q6H [facility] Last Infusion: 11/14/24 10:03 Dose: Infused Documented By: SHOBHA Vancomycin HCl 1,000 mg/ (Sodium Chloride) 270 mls @ 270 mls/hr IV Q24H [facility] Last Infusion: 11/13/24 19:05 Dose: Infused Documented By: MINAL Insulin Glargine (Insulin Glargine,Hum.Rec.Anlog 100 Unit/Ml 10 Ml Vial) 12 unit SUBCUT DAILY@1700 [facility] Last Admin: 11/13/24 16:44 Dose: 12 unit Documented By: ANA LILIA Insulin Human Lispro (Insulin Lispro 100 Unit/Ml 3 Ml Vial) 0 unit SUBCUT QIDACHS [facility]; Protocol Last Admin: 11/14/24 08:26 Dose: Not Given Documented By: SHOBHA Non-Admin Reason: No Insulin Coverage Magnesium Hydroxide (Milk Of Magnesia 30 Ml Oral.Susp) 30 ml PO DAILY PRN PRN Reason: Constipation Melatonin (Melatonin 3 Mg Tablet) 6 mg PO BEDTIME PRN PRN Reason: Insomnia Multivitamins/Vitamin C (Multivitamin Tablet) 1 tab PO DAILY [facility] Last Admin: 11/14/24 08:32 Dose: 1 tab Documented By: SHOBHA Ondansetron HCl (Ondansetron Hcl 4 Mg/2 Ml Vial) 4 mg IVPUSH Q8H PRN PRN Reason: Nausea and Vomiting Pharmacy Consult (Consult Rx Vancomycin Dosing) 1 each MISCELLANE DAILY PRN PRN Reason: Consult order Sodium Chloride (0.9 % Sodium Chloride Flush 3 Ml Syringe) 3 ml IVFLUSH QSHIFT [facility] Last Admin: 11/14/24 08:34 Dose: 3 ml Documented By: SHOBHA Sodium Polystyrene Sulfonate (Sodium Polystyrene Sulfon/Sorb 15 Gm/60 Ml Oral.Susp) 30 gm PO MOWEFR [facility] Last Admin: 11/11/24 22:11 Dose: 30 gm Documented By: СВЕТЛАНА Comments: pt is a new admit just admitted to the unit Valsartan (Valsartan 160 Mg Tablet) 160 mg PO BID [facility]; Protocol Last Admin: 11/14/24 08:31 Dose: 160 mg Documented By: SHOBHA Vitamin D (Cholecalciferol (Vitamin D3) 25 Mcg Tablet) 50 mcg PO BEDTIME [facility] Last Admin: 11/13/24 21:25 Dose: 50 mcg Documented By: MINAL Labs 11/12/24 06:00 11/14/24 05:32 Labs: Laboratory Results - last 24 hr 11/13/24 11/13/24 11/13/24 11:13 16:03 16:34 Estim Creat Clear Calc Estimated GFR POC Glucose 170 H 148 H Random Vancomycin 15.5 11/13/24 11/14/24 11/14/24 20:39 05:32 07:19 Estim Creat Clear Calc 34.5 Estimated GFR 22 POC Glucose 150 H 108 Random Vancomycin Microbiology Microbiology Results: Microbiology 11/11/24 16:31 Blood Culture - Preliminary Blood - Venous No growth after 48 hours. 11/11/24 16:31 Blood Culture - Preliminary Blood - Venous No growth after 48 hours. Assessment and Plan (1) Toe osteomyelitis, left: Status: Acute (2) Septic arthritis: Status: Acute Plan This is a 54-year-old male with pertinent history of insulin-dependent diabetes mellitus, mixed hyperlipidemia, hypertension, diastolic congestive heart failure, CKD stage 3, obstructive sleep apnea who presents to the emergency department for left lower extremity swelling and discoloration of left toe. Left 3rd toe osteomyelitis with diabetic foot infection and septic arthritis Continue IV vancomycin and Zosyn. Awaiting ID and vascular surgery eval. follow cultures will likely need extermination supervisor Abx and PICC line Back pain, musculoskeletal: Cyclobenzaprine p.r.n. CT abdomen/pelvis on 11/03 without any acute abnormalities get thoracic xray today CKD stage 3: Creatinine at baseline HTN, BP elevated this morning continue Valsartan, Coreg and if needed add Norvasc NANCY: CPAP at bedtime Diastolic congestive heart failure/hypertension: Continue valsartan spironolactone, carvedilol, empagliflozin and furosemide Mixed hyperlipidemia: On statin Insulin-dependent diabetes initiating Accu-Cheks with sliding scale insulin. Reduced home basal insulin DVT prophylaxis: Lovenox Full Code Reason for continued hospitalization: IV antibiotics. Awaiting cultures and specialist eval Quality Stroke Does the patient have a stroke diagnosis?: No VTE Prior VTE?: No VTE Risk Level:: Medical - moderate - high VTE Device Contraindication: Treatment Not Indicated VTE Drug Contraindication: N/A - Med Ordered
--- NOTE | 2024-11-14 11:12 | MHC.CM.PN ---
Addendum entered by Maria Esther Stroud 11/14/24 14:40: [facility] IS NOT CONTRACTED WITH PTS INSURANCE MESSAGE SENT TO [facility] TO DETERMINE IF THEY CAN PROVIDE NURSING CM ALSO STILL WAITING FOR [facility] TO RUN PTS BENEFITS Original Note: PT AWARE HE WILL LIKELY NEED IV ABX AT DC HE REPORTS HE WOULD LIKE TO DO THIS AT HOME, LONG THE COST IS REASONABLE HE UNDERSTANDS THE [employer] WILL RUN HIS COVERAGE AND THAT HE IS AWAITING ID INPUT REFERRALS MADE TO [facility] AND [facility]
[2024-11-14 11:49] LABS: Glucose, Whole Blood 146 mg/dL (60-115)
[2024-11-14 16:13] LABS: Glucose, Whole Blood 136 mg/dL (60-115)
--- NOTE | 2024-11-14 16:57 | HE.PHANOTE ---
RE: VANCO DOSING Trough came back as 15.9 mg/L, renal function is worsening. Continue with dose of 1000 mg q24h on the precautious side, next troug is scheduled for 11/15/24 @1600.
[2024-11-14] MEDS: Insulin Glargine,Hum.rec.anlog 100 UNIT/ML 10 ML VIAL 12 UNIT SUBCUT (17:27)
--- NOTE | 2024-11-14 18:42 | HO.SKINPHOTO ---
Location:Left 3rd toe Open to air, wound nurse consult placed. No redness or drainage noted. Positive pedal pulse.
[2024-11-14 20:21] LABS: Glucose, Whole Blood 133 mg/dL (60-115)
--- NOTE | 2024-11-14 21:21 | PC.NURSE ---
Pt has Kayepricilla scheduled M/W/F at 21:00. Last potassium was checked on 11/12 at 4.6. MD Mcbride notified at 21:04, per MD Reed olivarez to give med.
--- NOTE | 2024-11-14 23:41 | PC.NURSE ---
23:23 Pt had a manual BP of 204/86 after night time BP meds. MD Mcbride notified via [place] Text at 23:28. Per Reed, admin hydralazine once.
[2024-11-15 00:17] VITALS: BP 134/60; PULSE 76
[2024-11-15 06:38] LABS: Creatinine Clr Calc Pharmacy 28.8; Estimated Glomerular Filt Rate 18
[2024-11-15 07:44] LABS: Glucose, Whole Blood 107 mg/dL (60-115)
[2024-11-15 08:00] VITALS: BP 162/70; PULSE 79; RESP 18; TEMP 37.4; O2SAT 96
[2024-11-15] MEDS: Ferrous Sulfate 324 MG TABLET.DR PO ×3 (08:27→18:51)
[2024-11-15] MEDS: 0.9 % Sodium Chloride Flush 3 ML SYRINGE IVFLUSH ×3 (08:28→21:04)
[2024-11-15 08:48] LABS: Anion Gap 14 (12-20); Blood Urea Nitrogen 36 mg/dL (9-16); Calcium 8.5 mg/dL (8.4-10.2); Carbon Dioxide 20 mmol/L (22-29); Chloride 110 mmol/L (96-108); Potassium 4.7 mmol/L (3.3-5.1); Sodium 139 mmol/L (135-145)
--- NOTE | 2024-11-15 09:26 | P.CONNP_ITS ---
History of Present Illness Reason for Consult Consult date: 11/15/24 Chief Complaint Chief complaint: toe infection History of Present Illness Narrative: 54 y/o male with CKD3- diabetic and hypretensive kidney disease with proteinuria, DMII, HTN, HLD, CHF, NANCY, obesity. Presented 11/11 with LLE swelling, left toe discoloration. Being treated for third digit of left lower extremity osteomyelitis and DIP septic arthritis. Nephrology consulted for EZRA. creatinine baseline mid 2's. Trend: 11/11 2.36 11/12 2.58 11/14 3.00 7. 3.60 patient had over 7 grams of protein in his urine last month. He reports he continues to have back pain for which he originally went to the ED for earlier this month- CT abd/pelvis did not show any stones, pyelonephritis, hydro/obstruction or other renal source for pain. He denies chest pain, shortness of breath, dizziness, abdominal pain, +left back/flank pain (CT ruled out stones/infection/obstruction), urinary symptoms. Reports he is voiding urine regularly/normally. Reports some lower extremity swelling since toe infections have started. Review of Systems Review of Systems See HPI. Yes all other systems are reviewed and are negative PMFSH Past Medical History Medical History CKD (chronic kidney disease) stage 3, GFR 30-59 ml/min Sleep apnea Chronic heart failure with preserved ejection fraction (HFpEF) Elevated cholesterol Iron deficiency anemia Chronic renal insufficiency Diabetic nephropathy Acute heart failure with preserved ejection fraction (HFpEF) Necrotizing subcutaneous infection Hypertension Type 2 diabetes Family History Family History Mother Diabetes Maternal Uncle Diabetes Sister Multiple sclerosis Father Liver failure Kidney failure Surgical History Surgical History History of pyloromyotomy Status post incision and drainage Burgin teeth removed Social History Social History Household Members: Significant Other and Children Both parents involved: No Caregiver staying overnight: No Housing: House Are you a primary housekeeper child care to a significant other at home: No Do you presently have visiting nurse or other home services: No 75 years or older and lives alone: No Alcohol intake: current Alcohol intake frequency: holidays/special occasions only Alcohol type: beer Patient Tobacco Use Status: Former Tobacco user Tobacco use type: Cigarette Years Smoked: 4 e-Cigarette/Vaping Use: Never Used Second Hand Smoke Exposure: Yes Substance Use Type: Marijuana Advance Directives Date on File: 05/07/23 service: No Current occupational status: employed Current occupation: [employer] Current occupational exposures/hazards: No Cognitive needs: No Hearing needs: No Vision needs: No Meds Allergies Allergy/AdvReac Type Severity Reaction Status Date / Time No Known Allergies Allergy Verified 11/11/24 14:45 Active Medications: Current Medications Acetaminophen (Acetaminophen 325 Mg Tablet) 650 mg PO Q6H PRN PRN Reason: Pain, Mild 1-3,fever,headache Last Admin: 11/15/24 08:27 Dose: 650 mg Atorvastatin Calcium (Atorvastatin Calcium 40 Mg Tablet) 40 mg PO BEDTIME NICHOLAS Last Admin: 11/14/24 20:50 Dose: 40 mg Calcium Carbonate (Calcium Carbonate 750 Mg Tab.Chew) 750 mg PO Q4H PRN PRN Reason: Heartburn Carvedilol (Carvedilol 12.5 Mg Tablet) 12.5 mg PO BID [facility]; Protocol Last Admin: 11/15/24 08:26 Dose: 12.5 mg Clonidine HCl (Clonidine Hcl 0.2 Mg Tablet) 0.2 mg PO BID NICHOLAS; Protocol Last Admin: 11/15/24 08:26 Dose: 0.2 mg Cyclobenzaprine HCl (Cyclobenzaprine Hcl 5 Mg Tablet) 5 mg PO TID PRN PRN Reason: Muscle Spasm Cyclobenzaprine HCl (Cyclobenzaprine Hcl 10 Mg Tablet) 10 mg PO TID PRN PRN Reason: Muscle Spasm Last Admin: 11/13/24 05:41 Dose: 10 mg Dextrose (Dextrose 50 % 25 Gm/50 Ml Syringe) 25 gm IVPUSH Q15M PRN; Protocol PRN Reason: per Hypoglycemia Standing Ord. Dextrose (Dextrose 50 % 25 Gm/50 Ml Syringe) 25 gm IVPUSH Q15M PRN; Protocol PRN Reason: per Hypoglycemia Standing Ord. Enoxaparin Sodium (Enoxaparin Sodium 40 Mg/0.4 Ml Syringe) 40 mg SUBCUT Q24H NICHOLAS Last Admin: 11/14/24 17:27 Dose: 40 mg Fenofibrate (Fenofibrate 54 Mg Tablet) 54 mg PO DAILY [facility] Last Admin: 11/15/24 08:26 Dose: 54 mg Ferrous Sulfate (Ferrous Sulfate 324 Mg Tablet.Dr) 324 mg PO TID [facility] Last Admin: 11/15/24 08:27 Dose: 324 mg Fluticasone Propionate (Fluticasone Propionate Nasal 16 Gm Antlers) 2 spray NOSTRIL-B BID PRN PRN Reason: for allergies Furosemide (Furosemide 40 Mg Tablet) 40 mg PO BID [facility]; Protocol On Hold: 11/15/24 08:10 Last Admin: 11/14/24 20:50 Dose: 40 mg Glucose (Glucose Gel 15 Gm Gel..Gram.) 15 gm PO Q15M PRN; Protocol PRN Reason: per Hypoglycemia Standing Ord. Glucose (Glucose Gel 15 Gm Gel..Gram.) 15 gm PO Q15M PRN; Protocol PRN Reason: per Hypoglycemia Standing Ord. Hydralazine HCl (Hydralazine Hcl 25 Mg Tablet) 25 mg PO TID [facility]; Protocol Piperacillin Sod/Tazobactam (Sod 4.5 gm/ Sodium Chloride) 100 mls @ 200 mls/hr IV Q6H [facility] Last Admin: 11/15/24 08:27 Dose: 200 mls/hr Vancomycin HCl 1,000 mg/ (Sodium Chloride) 270 mls @ 270 mls/hr IV Q24H [facility] Last Infusion: 11/14/24 19:12 Dose: Infused Insulin Glargine (Insulin Glargine,Hum.Rec.Anlog 100 Unit/Ml 10 Ml Vial) 12 unit SUBCUT DAILY@1700 [facility] Last Admin: 11/14/24 17:27 Dose: 12 unit Insulin Human Lispro (Insulin Lispro 100 Unit/Ml 3 Ml Vial) 0 unit SUBCUT QIDACHS [facility]; Protocol Last Admin: 11/15/24 07:47 Dose: Not Given Isosorbide Mononitrate (Isosorbide Mononitrate 30 Mg Tab.Er.24h) 30 mg PO DAILY [facility]; Protocol Magnesium Hydroxide (Milk Of Magnesia 30 Ml Oral.Susp) 30 ml PO DAILY PRN PRN Reason: Constipation Melatonin (Melatonin 3 Mg Tablet) 6 mg PO BEDTIME PRN PRN Reason: Insomnia Multivitamins/Vitamin C (Multivitamin Tablet) 1 tab PO DAILY [facility] Last Admin: 11/15/24 08:26 Dose: 1 tab Ondansetron HCl (Ondansetron Hcl 4 Mg/2 Ml Vial) 4 mg IVPUSH Q8H PRN PRN Reason: Nausea and Vomiting Pharmacy Consult (Consult Rx Vancomycin Dosing) 1 each MISCELLANE DAILY PRN PRN Reason: Consult order Sodium Chloride (0.9 % Sodium Chloride Flush 3 Ml Syringe) 3 ml IVFLUSH QSHIFT [facility] Last Admin: 11/15/24 08:28 Dose: 3 ml Sodium Polystyrene Sulfonate (Sodium Polystyrene Sulfon/Sorb 15 Gm/60 Ml Oral.Susp) 30 gm PO MOWEFR [facility] Last Admin: 11/14/24 21:13 Dose: 30 gm Valsartan (Valsartan 160 Mg Tablet) 160 mg PO BID [facility]; Protocol On Hold: 11/15/24 08:10 Last Admin: 11/14/24 20:50 Dose: 160 mg Vitamin D (Cholecalciferol (Vitamin D3) 25 Mcg Tablet) 50 mcg PO BEDTIME [facility] Last Admin: 11/14/24 20:51 Dose: 50 mcg Home Medications ?Medication ?Instructions ?Recorded ?Confirmed ?Last Taken ?Type multivitamin 1 tab PO DAILY 03/11/2210/2511/11/24 History omega-3 fatty acids-fish oil 684 1 cap PO DAILY 11/11/24 11/11/24 History mg-1,200 mg capsule,delayed release acetaminophen 500 mg tablet 1,000 mg PO BID PRN Pain 0 11/11/24 11/11/24 Unknown History cholecalciferol (vitamin D3) 50 50 mcg PO BEDTIME 10/2511/11/24 11/10/24 History mcg (2,000 unit) capsule fluticasone propionate 50 2 spray intranasal BID PRN f or 11/11/24 11/11/24 Unknown History mcg/actuation nasal allergies spray,suspension insulin glargine 100 unit/mL (3 15 unit subcut DAILY@1 700 11/11/24 11/11/24 11/10/24 History mL) subcutaneous pen (Basaglar KwikPen U-100 Insulin) sodium polystyrene sulfonate 30 g PO MOWEFR 11/11/24 0 11/11/24 11/09/24 History zinc acetate 25 mg (zinc) capsule 25 mg PO DAILY 11/1111/11/24 11/11/24 History Physical Exam Vital Signs: Last Vital Signs Temp 99.4 F 11/15/24 08:00 Pulse 79 11/15/24 08:00 Resp 18 11/15/24 08:00 BP 162/70 H 11/15/24 08:00 Pulse Ox 96 11/15/24 08:00 O2 Del Method Room Air 11/15/24 08:00 BMI result Body Mass Index 36.7 Const General: no acute distress, alert and awake Resp Effort & Inspection: normal respiratory effort and able to speak in complete sentences Auscultation: clear to auscultation bilaterally Cardio Rate: regular rate Rhythm: regular rhythm Heart sounds: S1 normal heart sound present and S2 normal heart sound present GI Palpation (GI): Soft to palpation and nontender General: Yes no CVA tenderness Back/Spine/Pelvis Back: no CVA tenderness Skin Rashes: no rashes Wounds: wounds noted (bilateral toe infections) Extrem General: Yes edema (trace lower extremity edema, left>right. ) Results Lab Results 11/12/24 06:00 11/15/24 05:33 Lab results: Chemistry 11/13/24 11/14/24 11/15/24 05:52 05:32 05:33 Sodium 139 Potassium 4.7 Carbon Dioxide 20 L BUN 36 H Creatinine 2.58 H 3.00 H 3.60 H Calcium 8.5 Assessment and Plan (1) Diabetes: Qualifiers: Chronic kidney disease stage: stage 3 (moderate) Chronic kidney disease stage 3 subtype: unspecified whether 3a or 3b Diabetes mellitus complication detail: with chronic kidney disease Diabetes mellitus complication status: with kidney complications Diabetes mellitus fci insulin use: unspecified fci insulin use status Diabetes mellitus type: type 2 Qualified Code(s): E 11.22 - Type 2 diabetes mellitus with diabetic chronic kidney disease; N18.30 - Chronic kidney disease, stage 3 unspecified Status: Acute (2) Acute kidney injury superimposed on CKD: Status: Acute (3) Toe osteomyelitis, left: Status: Acute Plan Patient with hypertensive and diabetic chronic kidney disease stage 3 with EZRA initial EZRA from 11/13-11/14 likely secondary to cytokine release from infection and altered regulation in the kidney due to diuretics and ARB use while hypoalbuminemic caused tubular which caused tubular injury. Had second EZRA 11/14-11/15, likely hemodynamic EZRA from precipitous drop in bleed pressure last evening after IV hydralazine use for elevated BP. Recommend continuing to hold diuretic, ARB Recommend avoiding significant drops in blood pressure, should avoid IV hydralazine when possible Will check complement levels to rule out dhruv-infectious GN (unlikely but should be ruled out). Will start hydralazine PO 25mg TID and imdur 30mg PO daily for blood pressure control Recommend daily electrolyte and renal function studies Recommend regular blood pressure checks, close I&O monitoring Recommend avoiding nephrotoxins Continue supportive care Discussed with Dr Hernandez Procedures Date of Service Date of Service: 11/15/24
[2024-11-15 11:40] LABS: Glucose, Whole Blood 157 mg/dL (60-115)
[2024-11-15 15:33] VITALS: BP 170/72; PULSE 63; RESP 18; TEMP 36.3; O2SAT 97
--- NOTE | 2024-11-15 15:35 | HO.WOUND ---
Wound Consult: Initial 54yr old?male admitted to [facility] on 11/11/24 - See progress notes and H&P for detailed history.? Wound consult placed for Left 3rd toe wound.? Patient agreeable to assessment and photo documentation.? Patient reports his history to the previous 4th toe wound and subsequent healing. He reports he did follow without wound clinic and healed the wound. He reports he is agreeable to returning to outpt wound clinic for continued wound care. Of note the Left foot is suspected of Charcot foot changes - recommend outpt follow up. Patient reports he wears steel toe shoes for daily work and is approximately 8hr a day on his feet. He reports he bought wide shoes and 1/2 size larger than normal in an effort to heal his wounds. We discussed moist loose shoes causing increased wounds in some cases. We discussed outpt follow up for orthopedic shoes or inserts. Recommend limit walking and standing directly on foot when able, removed shoes when home and allow to cool as the steel toe boots trap moisture and heat effecting wound healing. Left 3rd Toe Etiology: ??Diabetic Wound Wound Bed: red clean wound bed probes to bone Drainage / Odor: mild malodor noted Edges: ? unattached Sary wound: ? intact - thickened dry callused tissue - No Induration, Fluctuance or Warmth noted Pain: denies reports neuropathy Goals of Treatment: ?Durafiber packing and ID and Vascular consults pending Right 4th toe with dry stable callus no open wound noted. Recommend limiting friction to site. Painted with betadine. Left Foot ankle and mid foot deformity. Recommend orthopedic follow up for charcot foot evaluation and treatments. Recommendations: 1. Provide adequate and supplemental nutrition.? 2. When applicable maintain blood glucose levels per Providers order. Left 3rd Toe - Limit standing and walking directly on foot. Cleanse and irrigate with NS, Pat dry.? Apply skin prep to periwound, lightly pack with Durafiber AG, be sure to leave a wick to easy removal.? Cover with dry gauze dressing.? Change every other day. Right 4th Toe - Pain with Betadine may leave ERROL. Discussed benefits of Cream swith Urea such as Eucerin to heels and callused areas of feet. Advised to dry feet well inspect feet and between toes for wounds. Do not apply cream between toes. Recommend follow up out patient Wound Clinic at [address] [place] [id number] and to call for an appointment at time of discharge. [phone].? Benefits of going to Outpt wound clinic would be referral to Podiatry, referral for specialized orthopedic shoes / insert. Patient does appear to have suspected Charcot foot changes - may benefit from Orthopedic consultation outpatient. Re-consult wound care Nurse for wound deterioration or wound changes.
[2024-11-15 16:29] LABS: Glucose, Whole Blood 114 mg/dL (60-115)
--- NOTE | 2024-11-15 16:56 | P.PNIM_ITS ---
Subjective Subjective Date of Service: 11/15/24 Interval History: toe osteomyelitis,kehinde on ckd Review of Systems as above. Review of Systems: Yes all other systems are reviewed and are negative Physical Exam 2 Exam: Exam: Appearance: Alert.? Oriented X3. cvs: rrr, [id number] . res: air entry fair , no rales or wheezing abd: no rebound or guarding ,nt, bs present. ext Left 3rd toe with erythema, , discoloration, swelling and warmth with ulceration (please see ed physician note for pic) neuro: axo3 , nonfocal. Vital Signs: Vital Signs: Last Vital Signs Temp 97.3 F 11/15/24 15:33 Pulse 63 11/15/24 15:33 Resp 18 11/15/24 15:33 BP 170/72 H 11/15/24 15:33 Pulse Ox 97 11/15/24 15:33 O2 Del Method Room Air 11/15/24 15:33 BMI result Body Mass Index 36.7 Objective Data Active Medications Acetaminophen (Acetaminophen 325 Mg Tablet) 650 mg PO Q6H PRN PRN Reason: Pain, Mild 1-3,fever,headache Last Admin: 11/15/24 08:27 Dose: 650 mg Documented By: ALEXANDRE Atorvastatin Calcium (Atorvastatin Calcium 40 Mg Tablet) 40 mg PO BEDTIME NICHOLAS Last Admin: 11/14/24 20:50 Dose: 40 mg Documented By: MINAL Calcium Carbonate (Calcium Carbonate 750 Mg Tab.Chew) 750 mg PO Q4H PRN PRN Reason: Heartburn Carvedilol (Carvedilol 12.5 Mg Tablet) 12.5 mg PO BID [facility]; Protocol Last Admin: 11/15/24 08:26 Dose: 12.5 mg Documented By: ALEXANDRE Clonidine HCl (Clonidine Hcl 0.2 Mg Tablet) 0.2 mg PO BID [facility]; Protocol Last Admin: 11/15/24 08:26 Dose: 0.2 mg Documented By: ALEXANDRE Cyclobenzaprine HCl (Cyclobenzaprine Hcl 5 Mg Tablet) 5 mg PO TID PRN PRN Reason: Muscle Spasm Cyclobenzaprine HCl (Cyclobenzaprine Hcl 10 Mg Tablet) 10 mg PO TID PRN PRN Reason: Muscle Spasm Last Admin: 11/13/24 05:41 Dose: 10 mg Documented By: СВЕТЛАНА Dextrose (Dextrose 50 % 25 Gm/50 Ml Syringe) 25 gm IVPUSH Q15M PRN; Protocol PRN Reason: per Hypoglycemia Standing Ord. Dextrose (Dextrose 50 % 25 Gm/50 Ml Syringe) 25 gm IVPUSH Q15M PRN; Protocol PRN Reason: per Hypoglycemia Standing Ord. Enoxaparin Sodium (Enoxaparin Sodium 30 Mg/0.3 Ml Syringe) 30 mg SUBCUT Q24H [facility] Last Admin: 11/15/24 12:49 Dose: 30 mg Documented By: ALEXANDRE Fenofibrate (Fenofibrate 54 Mg Tablet) 54 mg PO DAILY [facility] Last Admin: 11/15/24 08:26 Dose: 54 mg Documented By: ALEXANDRE Ferrous Sulfate (Ferrous Sulfate 324 Mg Tablet.Dr) 324 mg PO TID [facility] Last Admin: 11/15/24 15:38 Dose: 324 mg Documented By: ALEXANDRE Fluticasone Propionate (Fluticasone Propionate Nasal 16 Gm [place]) 2 spray NOSTRIL-B BID PRN PRN Reason: for allergies Furosemide (Furosemide 40 Mg Tablet) 40 mg PO BID [facility]; Protocol On Hold: 11/15/24 08:10 Last Admin: 11/14/24 20:50 Dose: 40 mg Documented By: MINAL Glucose (Glucose Gel 15 Gm Gel..Gram.) 15 gm PO Q15M PRN; Protocol PRN Reason: per Hypoglycemia Standing Ord. Glucose (Glucose Gel 15 Gm Gel..Gram.) 15 gm PO Q15M PRN; Protocol PRN Reason: per Hypoglycemia Standing Ord. Hydralazine HCl (Hydralazine Hcl 25 Mg Tablet) 25 mg PO TID [facility]; Protocol Last Admin: 11/15/24 15:38 Dose: 25 mg Documented By: ALEXANDRE Vancomycin HCl 1,000 mg/ (Sodium Chloride) 270 mls @ 270 mls/hr IV Q24H [facility] Last Infusion: 11/14/24 19:12 Dose: Infused Documented By: MINAL Piperacillin Sod/Tazobactam (Sod 2.25 gm/ Sodium Chloride) 50 mls @ 100 mls/hr IV Q6H [facility] Last Infusion: 11/15/24 16:07 Dose: Infused Documented By: ALEXANDRE Insulin Glargine (Insulin Glargine,Hum.Rec.Anlog 100 Unit/Ml 10 Ml Vial) 12 unit SUBCUT DAILY@1700 [facility] Last Admin: 11/14/24 17:27 Dose: 12 unit Documented By: SHOBHA Insulin Human Lispro (Insulin Lispro 100 Unit/Ml 3 Ml Vial) 0 unit SUBCUT QIDACHS [facility]; Protocol Last Admin: 11/15/24 16:44 Dose: Not Given Documented By: ALEXANDRE Non-Admin Reason: No Insulin Coverage Isosorbide Mononitrate (Isosorbide Mononitrate 30 Mg Tab.Er.24h) 30 mg PO DAILY [facility]; Protocol Last Admin: 11/15/24 10:46 Dose: 30 mg Documented By: ALEXANDRE Magnesium Hydroxide (Milk Of Magnesia 30 Ml Oral.Susp) 30 ml PO DAILY PRN PRN Reason: Constipation Melatonin (Melatonin 3 Mg Tablet) 6 mg PO BEDTIME PRN PRN Reason: Insomnia Multivitamins/Vitamin C (Multivitamin Tablet) 1 tab PO DAILY [facility] Last Admin: 11/15/24 08:26 Dose: 1 tab Documented By: ALEXANDRE Ondansetron HCl (Ondansetron Hcl 4 Mg/2 Ml Vial) 4 mg IVPUSH Q8H PRN PRN Reason: Nausea and Vomiting Pharmacy Consult (Consult Rx Vancomycin Dosing) 1 each MISCELLANE DAILY PRN PRN Reason: Consult order Sodium Chloride (0.9 % Sodium Chloride Flush 3 Ml Syringe) 3 ml IVFLUSH QSHIFT [facility] Last Admin: 11/15/24 15:38 Dose: 3 ml Documented By: ALEXANDRE Sodium Polystyrene Sulfonate (Sodium Polystyrene Sulfon/Sorb 15 Gm/60 Ml Oral.Susp) 30 gm PO MOWEFR [facility] Last Admin: 11/14/24 21:13 Dose: 30 gm Documented By: MINAL Valsartan (Valsartan 160 Mg Tablet) 160 mg PO BID [facility]; Protocol On Hold: 11/15/24 08:10 Last Admin: 11/14/24 20:50 Dose: 160 mg Documented By: MINAL Vitamin D (Cholecalciferol (Vitamin D3) 25 Mcg Tablet) 50 mcg PO BEDTIME [facility] Last Admin: 11/14/24 20:51 Dose: 50 mcg Documented By: MINAL Labs 11/12/24 06:00 11/15/24 05:33 Labs: Laboratory Results - last 24 hr 11/14/24 11/15/24 11/15/24 20:16 05:33 07:19 Anion Gap 14 Estim Creat Clear Calc 28.8 Estimated GFR 18 POC Glucose 133 H 107 Random Glucose 106 Calcium 8.5 11/15/24 11/15/24 11:35 16:25 Anion Gap Estim Creat Clear Calc Estimated GFR POC Glucose 157 H 114 Random Glucose Calcium Assessment and Plan (1) Toe osteomyelitis, left: Status: Acute (2) Septic arthritis: Status: Acute Plan This is a 54-year-old male with pertinent history of insulin-dependent diabetes mellitus, mixed hyperlipidemia, hypertension, diastolic congestive heart failure, CKD stage 3, obstructive sleep apnea who presents to the emergency department for left lower extremity swelling and discoloration of left toe. Left 3rd toe osteomyelitis with diabetic foot infection and septic arthritis Continue IV vancomycin and Zosyn. Awaiting ID and vascular surgery eval. follow cultures will likely need intermediate accountant Abx and PICC line Back pain, musculoskeletal: Cyclobenzaprine p.r.n. CT abdomen/pelvis on 11/03 without any acute abnormalities get thoracic xray today kehinde on CKD stage 3: moniter bmp closely Hold valsartan and Lasix. HTN, BP flactuating continue Coreg ,imdur ,clonidine, hydralzine adjusted . hold lasix and valsartan due tto kehinde on ckd. NANCY: CPAP at bedtime Diastolic congestive heart failure/hypertension: Continue valsartan spironolactone, carvedilol, empagliflozin and furosemide Mixed hyperlipidemia: On statin Insulin-dependent diabetes initiating Accu-Cheks with sliding scale insulin. Reduced home basal insulin DVT prophylaxis: Lovenox Full Code Reason for continued hospitalization: IV antibiotics. Awaiting cultures and specialist eval Quality Stroke Does the patient have a stroke diagnosis?: No VTE Prior VTE?: No VTE Risk Level:: Medical - moderate - high VTE Device Contraindication: Treatment Not Indicated VTE Drug Contraindication: N/A - Med Ordered
--- NOTE | 2024-11-15 17:19 | HE.PHANOTE ---
RE: VANCO DOSING Trouhg came back as 18.7 mg/L. Renal function has worsen (sCr=3 yesterday and 3.6 today). Hold dose for 11/15/24, next trough is scheduled for 11/16/24 @0600. Dose of 500 mg q24h @0800 11/16/24 is pended post trough level.
[2024-11-15] MEDS: Insulin Glargine,Hum.rec.anlog 100 UNIT/ML 10 ML VIAL 12 UNIT SUBCUT (17:46)
[2024-11-15 18:10] VITALS: BP 172/75
[2024-11-15 18:49] VITALS: BP 184/58; PULSE 73; RESP 18; TEMP 36.1; O2SAT 98
[2024-11-15 20:58] LABS: Glucose, Whole Blood 134 mg/dL (60-115)
[2024-11-15 23:05] VITALS: BP 146/62
[2024-11-16 03:27] VITALS: BP 141/63; PULSE 62; RESP 16; TEMP 36.2; O2SAT 97
[2024-11-16 07:00] LABS: Creatinine Clr Calc Pharmacy 25.9; Estimated Glomerular Filt Rate 16
[2024-11-16 07:43] LABS: Glucose, Whole Blood 89 mg/dL (60-115)
[2024-11-16 07:43] LABS: Hematocrit 25.5 % (42.0-52.0); Hemoglobin 8.7 g/dl (14.0-18.0); Mean Corpuscular HGB Conc 34.1 g/dl (31.0-36.0); Mean Corpuscular Hemoglobin 30.6 pg (27.0-33.0); Mean Corpuscular Volume 89.8 fL (80.0-98.0); NRBC Abs Auto 0.000 X10*3/uL (0.0-0.012); NRBC Pct Auto 0.0 /100WBC (0.0-0.2); Platelet Count 196 X10*3/uL (160-400); Red Blood Count 2.84 X10*6/uL (4.60-5.80); White Blood Count 9.9 X10*3/uL (4.8-10.8)
[2024-11-16 07:50] LABS: Anion Gap 13 (12-20); Blood Urea Nitrogen 42 mg/dL (9-16); Calcium 8.4 mg/dL (8.4-10.2); Carbon Dioxide 21 mmol/L (22-29); Chloride 108 mmol/L (96-108); Potassium 4.6 mmol/L (3.3-5.1); Sodium 137 mmol/L (135-145)
[2024-11-16] MEDS: Ferrous Sulfate 324 MG TABLET.DR PO ×3 (07:50→21:01)
[2024-11-16] MEDS: 0.9 % Sodium Chloride Flush 3 ML SYRINGE IVFLUSH ×2 (07:52→15:46)
[2024-11-16 07:58] VITALS: BP 150/70; PULSE 74; RESP 16; TEMP 37.1; O2SAT 95
--- NOTE | 2024-11-16 09:00 | P.PNNP_ITS ---
Subjective Subjective Date of Service: 11/16/24 Interval history: Here for osteomyelitis of toe. Following for EZRA on CKD. Patient states he is feeling well. States he is voiding regularly just not being measured- he will start measuring for RN to record. Physical Exam 2 Vital Signs: Vital Signs: Last Vital Signs Temp 98.7 F 11/16/24 07:58 Pulse 74 11/16/24 07:58 Resp 16 11/16/24 07:58 BP 150/70 H 11/16/24 07:58 Pulse Ox 95 11/16/24 07:58 O2 Del Method Room Air 11/16/24 07:58 BMI result Body Mass Index 36.7 Const: General: no acute distress, alert and awake Resp: Effort & Inspection: normal respiratory effort and able to speak in complete sentences Auscultation: clear to auscultation bilaterally Cardio: Rate: regular rate Rhythm: regular rhythm Heart sounds: S1 normal heart sound present and S2 normal heart sound present GI: Palpation (GI): Soft to palpation and nontender : General: Yes no CVA tenderness Back/Spine/Pelvis: Back: no CVA tenderness Skin: Rashes: no rashes Wounds: wounds noted (bilateral toe infections) Extrem: General: Yes edema (trace left lower extremity edema. ) Objective Data Labs 11/16/24 06:05 11/16/24 06:05 Labs: Laboratory Results - last 24 hr 11/15/24 11/15/24 11/15/24 16:22 16:25 20:47 WBC RBC Hgb Hct MCV MCH MCHC RDW Plt Count MPV Absolute Nucleated RBC Nucleated RBC % (auto) Hold Purple Top Sodium Potassium Chloride Carbon Dioxide Anion Gap BUN Creatinine Estim Creat Clear Calc Estimated GFR POC Glucose 114 134 H Random Glucose Calcium Total Creatine Kinase Random Vancomycin 18.7 11/16/24 11/16/24 11/16/24 06:05 07:39 11:01 WBC 9.9 RBC 2.84 L Hgb 8.7 L Hct 25.5 L MCV 89.8 MCH 30.6 MCHC 34.1 RDW 12.1 Plt Count 196 MPV 11.7 Absolute Nucleated RBC 0.000 Nucleated RBC % (auto) 0.0 Hold Purple Top SEE NOTE Sodium 137 Potassium 4.6 Chloride 108 Carbon Dioxide 21 L Anion Gap 13 BUN 42 H Creatinine 4.00 H* Estim Creat Clear Calc 25.9 Estimated GFR 16 POC Glucose 89 150 H Random Glucose 94 Calcium 8.4 Total Creatine Kinase 70 Random Vancomycin 15.9 Microbiology Microbiology Results: Microbiology 11/11/24 16:31 Blood - Venous Blood Culture - Preliminary No growth after 48 hours. 11/11/24 16:31 Blood - Venous Blood Culture - Preliminary No growth after 48 hours. Procedures Date of Service Date of Service: 11/16/24 Assessment & Plan Assessment and plan (1) Acute kidney injury superimposed on CKD: Status: Acute Plan Patient with hypertensive and diabetic chronic kidney disease stage 3 with EZRA initial EZRA from 11/13-11/14 likely secondary to cytokine release from infection and altered regulation in the kidney due to diuretics and ARB use while hypoalbuminemic caused tubular which caused tubular injury. Had second EZRA 11/14-11/15, likely hemodynamic EZRA from precipitous drop in bleed pressure last evening after IV hydralazine use for elevated BP. Renal function is starting to plateau- anticipate further slowing of creatinine rise recommend continuing to hold valsartan and lasix. recommend 500cc bolus of fluid today as patient may be slightly dry Recommend continuing to hold diuretic, ARB Recommend avoiding significant drops in blood pressure, should avoid IV hydralazine when possible complement levels pending to rule out dhruv-infectious GN (unlikely but should be ruled out). continue hydralazine PO 25mg TID, carvedilol 12.5mg BID, clonidine 0.2mg BID, and imdur 30mg PO daily for blood pressure control. Recommend daily electrolyte and renal function studies Recommend regular blood pressure checks, close I&O monitoring Recommend avoiding nephrotoxins Continue supportive care Discussed with Dr Hernandez Time Spent With Patient Time: Total time managing care of this patient today ____ minutes. Progress Note: Quality Stroke Does the patient have a stroke diagnosis?: No
--- NOTE | 2024-11-16 09:51 | MHC.CM.PN ---
No discharge today. Patients Creatinine continues to increase. DP Home with IV ABX. Patient will self transport home. A clinical update has been sent to [facility].
[2024-11-16 11:13] LABS: Glucose, Whole Blood 150 mg/dL (60-115)
--- NOTE | 2024-11-16 11:24 | PM.CNGS ---
History of Present Illness Consult details Consult date: 11/16/24 Narrative: 54-year-old gentleman well known to me who had previously been worked up for lower extremity swelling back August of 2023 presents to the hospital with nonhealing toe ulcer. He had noticed this left lower extremity toe ulcer that had been present for several days. More so the left 3rd toe with some redness. Upon workup there was concern for underlying osteomyelitis. He has been admitted and subsequently treated with IV antibiotics. He is now for vascular evaluation. Review of Systems Review of Systems: Yes all other systems are reviewed and are negative Constitutional: Constitutional: Reports no additional constitutional complaints ENT: Reports Normal hearing present Cardiovascular: Cardiovascular: Denies chest pain, Denies chest pain at rest, Denies chest pain with activity and Denies pedal edema Respiratory: Respiratory: Denies cough Gastrointestinal: Gastrointestinal: Denies abdominal pain Musculoskeletal: Musculoskeletal: Denies abnormal gait, Denies muscle cramps and Denies radiating pain into limb Integumentary/Breasts: Skin/Breast: Denies skin ulcer and Denies wounds Neurologic: Reports Normal hearing present and Denies abnormal gait Psychiatric: Psychiatric: Reports no additional psychiatric complaints PMFSH Past Medical History Medical History CKD (chronic kidney disease) stage 3, GFR 30-59 ml/min Sleep apnea Chronic heart failure with preserved ejection fraction (HFpEF) Elevated cholesterol Iron deficiency anemia Chronic renal insufficiency Diabetic nephropathy Acute heart failure with preserved ejection fraction (HFpEF) Necrotizing subcutaneous infection Hypertension Type 2 diabetes Family History Family History Mother Diabetes Maternal Uncle Diabetes Sister Multiple sclerosis Father Liver failure Kidney failure Surgical History Surgical History History of pyloromyotomy Status post incision and drainage [place] teeth removed Social History Social History Household Members: Significant Other and Children Both parents involved: No Caregiver staying overnight: No Housing: House Are you a primary career development consultant to a significant other at home: No Do you presently have visiting nurse or other home services: No 75 years or older and lives alone: No Alcohol intake: current Alcohol intake frequency: holidays/special occasions only Alcohol type: beer Patient Tobacco Use Status: Former Tobacco user Tobacco use type: Cigarette Years Smoked: 4 e-Cigarette/Vaping Use: Never Used Second Hand Smoke Exposure: Yes Substance Use Type: Marijuana Advance Directives Date on File: 05/07/23 service: No Current occupational status: employed Current occupation: [employer] Current occupational exposures/hazards: No Cognitive needs: No Hearing needs: No Vision needs: No Meds Allergies Allergy/AdvReac Type Severity Reaction Status Date / Time No Known Allergies Allergy Verified 11/11/24 14:45 Active Medications: Current Medications Acetaminophen (Acetaminophen 325 Mg Tablet) 650 mg PO Q6H PRN PRN Reason: Pain, Mild 1-3,fever,headache Last Admin: 11/15/24 18:52 Dose: 650 mg Atorvastatin Calcium (Atorvastatin Calcium 40 Mg Tablet) 40 mg PO BEDTIME NICHOLAS Last Admin: 11/15/24 18:52 Dose: 40 mg Calcium Carbonate (Calcium Carbonate 750 Mg Tab.Chew) 750 mg PO Q4H PRN PRN Reason: Heartburn Carvedilol (Carvedilol 12.5 Mg Tablet) 12.5 mg PO BID [facility]; Protocol Last Admin: 11/16/24 07:50 Dose: 12.5 mg Clonidine HCl (Clonidine Hcl 0.2 Mg Tablet) 0.2 mg PO BID NICHOLAS; Protocol Last Admin: 11/16/24 07:50 Dose: 0.2 mg Cyclobenzaprine HCl (Cyclobenzaprine Hcl 5 Mg Tablet) 5 mg PO TID PRN PRN Reason: Muscle Spasm Cyclobenzaprine HCl (Cyclobenzaprine Hcl 10 Mg Tablet) 10 mg PO TID PRN PRN Reason: Muscle Spasm Last Admin: 11/13/24 05:41 Dose: 10 mg Dextrose (Dextrose 50 % 25 Gm/50 Ml Syringe) 25 gm IVPUSH Q15M PRN; Protocol PRN Reason: per Hypoglycemia Standing Ord. Dextrose (Dextrose 50 % 25 Gm/50 Ml Syringe) 25 gm IVPUSH Q15M PRN; Protocol PRN Reason: per Hypoglycemia Standing Ord. Enoxaparin Sodium (Enoxaparin Sodium 30 Mg/0.3 Ml Syringe) 30 mg SUBCUT Q24H NICHOLAS Last Admin: 11/15/24 12:49 Dose: 30 mg Fenofibrate (Fenofibrate 54 Mg Tablet) 54 mg PO DAILY [facility] Last Admin: 11/16/24 07:51 Dose: 54 mg Ferrous Sulfate (Ferrous Sulfate 324 Mg Tablet.Dr) 324 mg PO TID [facility] Last Admin: 11/16/24 07:50 Dose: 324 mg Fluticasone Propionate (Fluticasone Propionate Nasal 16 Gm [place]) 2 spray NOSTRIL-B BID PRN PRN Reason: for allergies Furosemide (Furosemide 40 Mg Tablet) 40 mg PO BID [facility]; Protocol On Hold: 11/15/24 08:10 Last Admin: 11/14/24 20:50 Dose: 40 mg Glucose (Glucose Gel 15 Gm Gel..Gram.) 15 gm PO Q15M PRN; Protocol PRN Reason: per Hypoglycemia Standing Ord. Glucose (Glucose Gel 15 Gm Gel..Gram.) 15 gm PO Q15M PRN; Protocol PRN Reason: per Hypoglycemia Standing Ord. Hydralazine HCl (Hydralazine Hcl 25 Mg Tablet) 25 mg PO TID [facility]; Protocol Last Admin: 11/16/24 07:50 Dose: 25 mg Piperacillin Sod/Tazobactam (Sod 2.25 gm/ Sodium Chloride) 50 mls @ 100 mls/hr IV Q6H [facility] Last Infusion: 11/16/24 10:05 Dose: Infused Vancomycin HCl 500 mg/ Sodium (Chloride) 110 mls @ 110 mls/hr IV Q24H [facility] Insulin Glargine (Insulin Glargine,Hum.Rec.Anlog 100 Unit/Ml 10 Ml Vial) 12 unit SUBCUT DAILY@1700 [facility] Last Admin: 11/15/24 17:46 Dose: 12 unit Insulin Human Lispro (Insulin Lispro 100 Unit/Ml 3 Ml Vial) 0 unit SUBCUT QIDACHS [facility]; Protocol Last Admin: 11/16/24 07:52 Dose: Not Given Isosorbide Mononitrate (Isosorbide Mononitrate 30 Mg Tab.Er.24h) 30 mg PO DAILY [facility]; Protocol Last Admin: 11/16/24 07:50 Dose: 30 mg Magnesium Hydroxide (Milk Of Magnesia 30 Ml Oral.Susp) 30 ml PO DAILY PRN PRN Reason: Constipation Melatonin (Melatonin 3 Mg Tablet) 6 mg PO BEDTIME PRN PRN Reason: Insomnia Multivitamins/Vitamin C (Multivitamin Tablet) 1 tab PO DAILY [facility] Last Admin: 11/16/24 07:50 Dose: 1 tab Ondansetron HCl (Ondansetron Hcl 4 Mg/2 Ml Vial) 4 mg IVPUSH Q8H PRN PRN Reason: Nausea and Vomiting Pharmacy Consult (Consult Rx Vancomycin Dosing) 1 each MISCELLANE DAILY PRN PRN Reason: Consult order Sodium Chloride (0.9 % Sodium Chloride Flush 3 Ml Syringe) 3 ml IVFLUSH QSHIFT [facility] Last Admin: 11/16/24 07:52 Dose: 3 ml Sodium Polystyrene Sulfonate (Sodium Polystyrene Sulfon/Sorb 15 Gm/60 Ml Oral.Susp) 30 gm PO MOWEFR [facility] Last Admin: 11/14/24 21:13 Dose: 30 gm Valsartan (Valsartan 160 Mg Tablet) 160 mg PO BID [facility]; Protocol On Hold: 11/15/24 08:10 Last Admin: 11/14/24 20:50 Dose: 160 mg Vitamin D (Cholecalciferol (Vitamin D3) 25 Mcg Tablet) 50 mcg PO BEDTIME [facility] Last Admin: 11/15/24 18:51 Dose: 50 mcg Home Medications ?Medication ?Instructions ?Recorded ?Confirmed ?Last Taken ?Type multivitamin 1 tab PO DAILY 03/11/22 11/11/24 11/11/24 History omega-3 fatty acids-fish oil 684 1 cap PO DAILY 01/21/24 11/11/24 11/11/24 History mg-1,200 mg capsule,delayed release acetaminophen 500 mg tablet 1,000 mg PO BID PRN Pain 11/11/24 11/11/24 Unknown History cholecalciferol (vitamin D3) 50 50 mcg PO BEDTIME 11/11/24 11/11/24 11/10/24 History mcg (2,000 unit) capsule fluticasone propionate 50 2 spray intranasal BID PRN for 11/11/24 11/11/24 Unknown History mcg/actuation nasal allergies spray,suspension insulin glargine 100 unit/mL (3 15 unit subcut DAILY@1700 11/11/24 11/11/24 11/10/24 History mL) subcutaneous pen (Basaglar KwikPen U-100 Insulin) sodium polystyrene sulfonate 30 g PO MOWEFR 11/11/24 11/11/24 11/09/24 History zinc acetate 25 mg (zinc) capsule 25 mg PO DAILY 11/11/24 11/11/24 11/11/24 History Physical Exam Vital Signs: Vital Signs: Last Vital Signs Temp 98.7 F 11/16/24 07:58 Pulse 74 11/16/24 07:58 Resp 16 11/16/24 07:58 BP 150/70 H 11/16/24 07:58 Pulse Ox 95 11/16/24 07:58 O2 Del Method Room Air 11/16/24 07:58 BMI result Body Mass Index 36.7 Const: General: cooperative, healthy appearing and comfortable Orientation/consciousness: oriented to person, oriented to place and oriented to time HEENT: Head: Yes normal to inspection Neck: Neck: Yes normal visual inspection Carotids: no bruits Chest: Chest palpation & inspection: normal inspection of the chest Resp: Effort & Inspection: normal respiratory effort and able to speak in complete sentences Auscultation: clear to auscultation bilaterally, no crackles, no rales, no rhonchi and no wheezes Cardio: Rate: regular rate Rhythm: regular rhythm Heart sounds: S1 normal heart sound present and S2 normal heart sound present Bruits: no carotid bruits Peripheral pulses: Peripheral pulses 2+ throughout GI: Inspection: Yes normal to inspection Skin: Wounds: no wounds Hair: normal Neuro: General: oriented to person, oriented to place and oriented to time Cranial nerves: Yes CN's II-XII intact bilaterally and Yes Normal hearing present Cognition (Neuro): normal cognition Motor exam (neuro): 5/5 motor strength present throughout Extrem: Other: Left lower extremity +2 edema. Third toe with ulcer General: No clubbing, No cyanosis and No edema Psych: Appearance: grossly normal Mental Status: mental status grossly normal Speech and movement: Normal speech and movement present Results Labs 11/16/24 06:05 11/16/24 06:05 Labs: Abnormal lab results 11/15/24 11/15/24 11/16/24 Range/Units 11:35 20:47 06:05 RBC 2.84 L (4.60-5.80) X10*6/uL Hgb 8.7 L (14.0-18.0) g/dl Hct 25.5 L (42.0-52.0) % Carbon Dioxide 21 L (22-29) mmol/L BUN 42 H (9-16) mg/dL Creatinine 4.00 H* (0.5-1.4) mg/dL POC Glucose 157 H 134 H (60-115) mg/dL 11/16/24 Range/Units 11:01 RBC (4.60-5.80) X10*6/uL Hgb (14.0-18.0) g/dl Hct (42.0-52.0) % Carbon Dioxide (22-29) mmol/L BUN (9-16) mg/dL Creatinine (0.5-1.4) mg/dL POC Glucose 150 H (60-115) mg/dL Short CBC 11/16/24 Range/Units 06:05 WBC 9.9 (4.8-10.8) X10*3/uL Hgb 8.7 L (14.0-18.0) g/dl Hct 25.5 L (42.0-52.0) % Plt Count 196 (160-400) X10*3/uL BMP 11/16/24 06:05 Sodium 137 Potassium 4.6 Chloride 108 Carbon Dioxide 21 L BUN 42 H Creatinine 4.00 H* Calcium 8.4 Urine 11/11/24 Range/Units 20:00 Urine Color Yellow Urine Appearance Clear Urine pH 7.0 (5.0-9.0) Ur Specific [place] 1.015 (1.005-1.025) Urine Protein 300 (3+) H (Neg-Trace) mg/dL Urine Glucose (UA) >=1000 H (Negative) mg/dL All other labs normal. Assessment and Plan (1) Toe osteomyelitis, left: Status: Acute Plan In short patient has underlying osteomyelitis. I do think this may be a good salvage type situation. May require long-term IV antibiotics. I do think we need to re-evaluate his lower extremity swelling as an outpatient. Although in the past his venous insufficiency testing was negative this is nearly a year ago. May require Luis E workup. We will continue to follow this very pleasant patient with you as an inpatient. Thank you for allowing us to assist in his care. If there are any questions or concerns please do not hesitate to contact us. Procedures Date of Service Date of Service: 11/16/24
[2024-11-16 16:00] VITALS: BP 155/72; PULSE 71; RESP 16; TEMP 36.8; O2SAT 98
[2024-11-16 16:35] LABS: Glucose, Whole Blood 126 mg/dL (60-115)
[2024-11-16] MEDS: Insulin Glargine,Hum.rec.anlog 100 UNIT/ML 10 ML VIAL 12 UNIT SUBCUT (16:59)
--- NOTE | 2024-11-16 17:06 | HO.PM.IMPN ---
Subjective Subjective Date of Service: 11/16/24 Interval History: kehinde on ckd, osteo Review of Systems No new complaints Review of Systems: Yes all other systems are reviewed and are negative Physical Exam Exam: Exam: Appearance: Alert.? Oriented X3. cvs: rrr, [id number] . res: air entry fair , no rales or wheezing abd: no rebound or guarding ,nt, bs present. ext Left 3rd toe with erythema, , discoloration, swelling and warmth with ulceration (please see ed physician note for pic) neuro: axo3 , nonfocal. Vital Signs: Vital Signs: Last Vital Signs Temp 98.2 F 11/16/24 16:00 Pulse 71 11/16/24 16:00 Resp 16 11/16/24 16:00 BP 155/72 H 11/16/24 16:00 Pulse Ox 98 11/16/24 16:00 O2 Del Method Room Air 11/16/24 16:00 BMI result Body Mass Index 36.7 Objective Data Active Medications Acetaminophen (Acetaminophen 325 Mg Tablet) 650 mg PO Q6H PRN PRN Reason: Pain, Mild 1-3,fever,headache Last Admin: 11/15/24 18:52 Dose: 650 mg Documented By: JORDON Atorvastatin Calcium (Atorvastatin Calcium 40 Mg Tablet) 40 mg PO BEDTIME NICHOLAS On Hold: 11/16/24 11:58 Last Admin: 11/15/24 18:52 Dose: 40 mg Documented By: JORDON Calcium Carbonate (Calcium Carbonate 750 Mg Tab.Chew) 750 mg PO Q4H PRN PRN Reason: Heartburn Carvedilol (Carvedilol 12.5 Mg Tablet) 12.5 mg PO BID NICHOLAS; Protocol Last Admin: 11/16/24 07:50 Dose: 12.5 mg Documented By: ALEXANDRE Clonidine HCl (Clonidine Hcl 0.2 Mg Tablet) 0.2 mg PO BID NICHOLAS; Protocol Last Admin: 11/16/24 07:50 Dose: 0.2 mg Documented By: ALEXANDRE Cyclobenzaprine HCl (Cyclobenzaprine Hcl 5 Mg Tablet) 5 mg PO TID PRN PRN Reason: Muscle Spasm Cyclobenzaprine HCl (Cyclobenzaprine Hcl 10 Mg Tablet) 10 mg PO TID PRN PRN Reason: Muscle Spasm Last Admin: 11/13/24 05:41 Dose: 10 mg Documented By: СВЕТЛАНА Dextrose (Dextrose 50 % 25 Gm/50 Ml Syringe) 25 gm IVPUSH Q15M PRN; Protocol PRN Reason: per Hypoglycemia Standing Ord. Dextrose (Dextrose 50 % 25 Gm/50 Ml Syringe) 25 gm IVPUSH Q15M PRN; Protocol PRN Reason: per Hypoglycemia Standing Ord. Enoxaparin Sodium (Enoxaparin Sodium 30 Mg/0.3 Ml Syringe) 30 mg SUBCUT Q24H [facility] Last Admin: 11/16/24 12:43 Dose: 30 mg Documented By: ALEXANDRE Fenofibrate (Fenofibrate 54 Mg Tablet) 54 mg PO DAILY [facility] Last Admin: 11/16/24 07:51 Dose: 54 mg Documented By: ALEXANDRE Ferrous Sulfate (Ferrous Sulfate 324 Mg Tablet.Dr) 324 mg PO TID [facility] Last Admin: 11/16/24 15:46 Dose: 324 mg Documented By: ALEXANDRE Fluticasone Propionate (Fluticasone Propionate Nasal 16 Gm [place]) 2 spray NOSTRIL-B BID PRN PRN Reason: for allergies Furosemide (Furosemide 40 Mg Tablet) 40 mg PO BID NICHOLAS; Protocol On Hold: 11/15/24 08:10 Last Admin: 11/14/24 20:50 Dose: 40 mg Documented By: MINAL Glucose (Glucose Gel 15 Gm Gel..Gram.) 15 gm PO Q15M PRN; Protocol PRN Reason: per Hypoglycemia Standing Ord. Glucose (Glucose Gel 15 Gm Gel..Gram.) 15 gm PO Q15M PRN; Protocol PRN Reason: per Hypoglycemia Standing Ord. Hydralazine HCl (Hydralazine Hcl 25 Mg Tablet) 25 mg PO TID [facility]; Protocol Last Admin: 11/16/24 15:46 Dose: 25 mg Documented By: ALEXANDRE Piperacillin Sod/Tazobactam (Sod 2.25 gm/ Sodium Chloride) 50 mls @ 100 mls/hr IV Q6H [facility] Last Infusion: 11/16/24 16:16 Dose: Infused Documented By: ALEXANDRE Daptomycin 650 mg/ Sodium (Chloride) 63 mls @ 99.78 mls/hr IV Q48H [facility] Last Infusion: 11/16/24 14:09 Dose: Infused Documented By: ALEXANDRE Insulin Glargine (Insulin Glargine,Hum.Rec.Anlog 100 Unit/Ml 10 Ml Vial) 12 unit SUBCUT DAILY@1700 [facility] Last Admin: 11/16/24 16:59 Dose: 12 unit Documented By: ALEXANDRE Insulin Human Lispro (Insulin Lispro 100 Unit/Ml 3 Ml Vial) 0 unit SUBCUT QIDACHS [facility]; Protocol Last Admin: 11/16/24 16:39 Dose: Not Given Documented By: ALEXANDRE Non-Admin Reason: No Insulin Coverage Isosorbide Mononitrate (Isosorbide Mononitrate 30 Mg Tab.Er.24h) 30 mg PO DAILY [facility]; Protocol Last Admin: 11/16/24 07:50 Dose: 30 mg Documented By: ALEXANDRE Magnesium Hydroxide (Milk Of Magnesia 30 Ml Oral.Susp) 30 ml PO DAILY PRN PRN Reason: Constipation Melatonin (Melatonin 3 Mg Tablet) 6 mg PO BEDTIME PRN PRN Reason: Insomnia Multivitamins/Vitamin C (Multivitamin Tablet) 1 tab PO DAILY [facility] Last Admin: 11/16/24 07:50 Dose: 1 tab Documented By: ALEXANDRE Ondansetron HCl (Ondansetron Hcl 4 Mg/2 Ml Vial) 4 mg IVPUSH Q8H PRN PRN Reason: Nausea and Vomiting Sodium Chloride (0.9 % Sodium Chloride Flush 3 Ml Syringe) 3 ml IVFLUSH QSHIFT [facility] Last Admin: 11/16/24 15:46 Dose: 3 ml Documented By: ALEXANDRE Sodium Polystyrene Sulfonate (Sodium Polystyrene Sulfon/Sorb 15 Gm/60 Ml Oral.Susp) 30 gm PO MOWEFR [facility] Last Admin: 11/14/24 21:13 Dose: 30 gm Documented By: MINAL Valsartan (Valsartan 160 Mg Tablet) 160 mg PO BID [facility]; Protocol On Hold: 11/15/24 08:10 Last Admin: 11/14/24 20:50 Dose: 160 mg Documented By: MINAL Vitamin D (Cholecalciferol (Vitamin D3) 25 Mcg Tablet) 50 mcg PO BEDTIME [facility] Last Admin: 11/15/24 18:51 Dose: 50 mcg Documented By: JORDON Labs 11/16/24 06:05 11/16/24 06:05 Labs: Laboratory Results - last 24 hr 11/15/24 11/16/24 11/16/24 20:47 06:05 07:39 MCV 89.8 MCH 30.6 MCHC 34.1 RDW 12.1 Plt Count 196 MPV 11.7 Absolute Nucleated RBC 0.000 Nucleated RBC % (auto) 0.0 Hold Purple Top SEE NOTE Anion Gap 13 Estim Creat Clear Calc 25.9 Estimated GFR 16 POC Glucose 134 H 89 Random Glucose 94 Calcium 8.4 Total Creatine Kinase 70 Random Vancomycin 15.9 11/16/24 11/16/24 11:01 16:22 MCV MCH MCHC RDW Plt Count MPV Absolute Nucleated RBC Nucleated RBC % (auto) Hold Purple Top Anion Gap Estim Creat Clear Calc Estimated GFR POC Glucose 150 H 126 H Random Glucose Calcium Total Creatine Kinase Random Vancomycin Assessment and Plan (1) Toe osteomyelitis, left: Status: Acute Assessment and Plan: 54-year-old male with pertinent history of insulin-dependent diabetes mellitus, mixed hyperlipidemia, hypertension, diastolic congestive heart failure, CKD stage 3, obstructive sleep apnea who presents to the emergency department for left lower extremity swelling and discoloration of left toe. Left 3rd toe osteomyelitis with diabetic foot infection and septic arthritis Continue IV vancomycin and Zosyn. Awaiting ID and vascular surgery eval. follow cultures will likely need terminal gauger Abx and PICC line Back pain, musculoskeletal: get thoracic xray :No acute abnormality.Moderate degenerative disc disease at T12-L1. Sacralized right L5 transverse process and possible pseudoarticulation with upper S1. kehinde on CKD stage 3: added ns 500 mlx1 moniter bmp closely Hold valsartan and Lasix. nephro input appreciated: recommend 500cc bolus of fluid today as patient may be slightly dry Recommend continuing to hold diuretic, ARB Recommend avoiding significant drops in blood pressure, should avoid IV hydralazine when possible complement levels pending to rule out dhruv-infectious GN (unlikely but should be ruled out). continue hydralazine PO 25mg TID, carvedilol 12.5mg BID, clonidine 0.2mg BID, and imdur 30mg PO daily for blood pressure control. Recommend daily electrolyte and renal function studies Recommend regular blood pressure checks, close I&O monitoring Recommend avoiding nephrotoxins Continue supportive care . HTN: please see above continue Coreg ,imdur ,clonidine, hydralzine adjusted . hold lasix and valsartan due tto kehinde on ckd. NANCY: CPAP at bedtime Diastolic congestive heart failure/hypertension: Continue valsartan spironolactone, carvedilol, empagliflozin and furosemide Mixed hyperlipidemia: On statin Insulin-dependent diabetes initiating Accu-Cheks with sliding scale insulin. Reduced home basal insulin DVT prophylaxis: Lovenox Full Code Reason for continued hospitalization: IV antibiotics. Awaiting cultures and specialist eval Quality Stroke Does the patient have a stroke diagnosis?: No VTE Prior VTE?: No VTE Risk Level:: Medical - moderate - high VTE Device Contraindication: Treatment Not Indicated VTE Drug Contraindication: N/A - Med Ordered
[2024-11-16 19:22] VITALS: BP 162/84; PULSE 69; RESP 16; TEMP 36.4; O2SAT 97
[2024-11-16 20:09] LABS: Glucose, Whole Blood 161 mg/dL (60-115)
[2024-11-16 21:00] VITALS: BP 162/84; PULSE 69
[2024-11-16 21:01] VITALS: BP 162/84
[2024-11-17] MEDS: 0.9 % Sodium Chloride Flush 3 ML SYRINGE IVFLUSH ×4 (02:43→21:06)
[2024-11-17 03:33] VITALS: BP 144/82; PULSE 64; RESP 17; TEMP 36.4; O2SAT 98
[2024-11-17 06:59] LABS: Creatinine Clr Calc Pharmacy 24.8; Estimated Glomerular Filt Rate 15
[2024-11-17 07:35] LABS: Glucose, Whole Blood 88 mg/dL (60-115)
[2024-11-17] MEDS: Ferrous Sulfate 324 MG TABLET.DR PO ×3 (07:46→21:05)
[2024-11-17 07:51] LABS: Anion Gap 13 (12-20); Blood Urea Nitrogen 42 mg/dL (9-16); Calcium 8.3 mg/dL (8.4-10.2); Carbon Dioxide 19 mmol/L (22-29); Chloride 106 mmol/L (96-108); Potassium 4.5 mmol/L (3.3-5.1); Sodium 133 mmol/L (135-145)
[2024-11-17 08:00] VITALS: BP 158/60; PULSE 80; RESP 18; TEMP 36.4
--- NOTE | 2024-11-17 09:30 | P.PNNP_ITS ---
Subjective Subjective Date of Service: 11/17/24 Interval history: Here for osteomyelitis of toe. Following for EZRA on CKD. Patient states he is feeling well. States he is voiding regularly just not being measured- he did not measure as discussed yesterday so no UOP recorded. Physical Exam 2 Vital Signs: Vital Signs: Last Vital Signs Temp 97.6 F 11/17/24 08:00 Pulse 80 11/17/24 08:00 Resp 18 11/17/24 08:00 BP 158/60 H 11/17/24 08:00 Pulse Ox 98 11/17/24 03:33 O2 Del Method Room Air 11/17/24 08:00 BMI result Body Mass Index 36.7 Const: General: no acute distress, alert and awake Resp: Effort & Inspection: normal respiratory effort and able to speak in complete sentences Auscultation: clear to auscultation bilaterally Cardio: Rate: regular rate Rhythm: regular rhythm Heart sounds: S1 normal heart sound present and S2 normal heart sound present GI: Palpation (GI): Soft to palpation and nontender : General: Yes no CVA tenderness Back/Spine/Pelvis: Back: no CVA tenderness Skin: Rashes: no rashes Wounds: wounds noted (bilateral toe infections) Extrem: General: Yes edema (trace left lower extremity edema. ) Objective Data Labs 11/16/24 06:05 11/17/24 05:46 Labs: Laboratory Results - last 24 hr 11/16/24 11/16/24 11/16/24 06:05 16:22 19:59 Hold Purple Top Sodium Potassium Chloride Carbon Dioxide Anion Gap BUN Creatinine Estim Creat Clear Calc Estimated GFR POC Glucose 126 H 161 H Random Glucose Calcium Total Creatine Kinase 70 11/17/24 11/17/24 11/17/24 05:46 07:20 11:09 Hold Purple Top SEE NOTE Sodium 133 L Potassium 4.5 Chloride 106 Carbon Dioxide 19 L Anion Gap 13 BUN 42 H Creatinine 4.17 H* Estim Creat Clear Calc 24.8 Estimated GFR 15 POC Glucose 88 157 H Random Glucose 96 Calcium 8.3 L Total Creatine Kinase Microbiology Microbiology Results: Microbiology 11/11/24 16:31 Blood - Venous Blood Culture - Final No growth after 5 days. 11/11/24 16:31 Blood - Venous Blood Culture - Final No growth after 5 days. Procedures Date of Service Date of Service: 07/24/25 Assessment & Plan Assessment and plan (1) Acute kidney injury superimposed on CKD: Status: Acute Plan Patient with hypertensive and diabetic chronic kidney disease stage 3 with EZRA initial EZRA likely secondary to cytokine release from infection and altered regulation in the kidney due to diuretics and ARB use while hypoalbuminemic caused tubular which caused tubular injury. Had second EZRA likely hemodynamic EZRA from precipitous drop in bleed pressure last evening after IV hydralazine use for elevated BP. Renal function is starting to plateau- anticipate further slowing of creatinine rise. If stable tomorrow may consider discharge with close follow up with Dr Hernandez as outpatient. recommend continuing to hold valsartan and lasix. Recommend continuing to hold diuretic, ARB Recommend avoiding significant drops in blood pressure, should avoid IV hydralazine when possible complement levels pending to rule out dhruv-infectious GN (unlikely but should be ruled out). continue hydralazine PO 50mg TID, carvedilol 12.5mg BID, clonidine 0.2mg BID, and imdur 30mg PO daily for blood pressure control. Recommend daily electrolyte and renal function studies Recommend regular blood pressure checks, close I&O monitoring Recommend avoiding nephrotoxins Continue supportive care Discussed with Dr Hernandez Time Spent With Patient Time: Total time managing care of this patient today ____ minutes. Progress Note: Quality Stroke Does the patient have a stroke diagnosis?: No
[2024-11-17 11:14] LABS: Glucose, Whole Blood 157 mg/dL (60-115)
--- NOTE | 2024-11-17 13:08 | HO.VASCPN ---
Subjective Subjective Date of Service: 11/17/24 Patient reports: no new complaints and feels better Interval history: Very pleasant 54-year-old gentleman for vascular follow-up. Has nonhealing ulcer of the left 3rd toe. It is quite painful for him. He reports it has been there for several days and there is now concern of underlying osteomyelitis. He has significant swelling of bilateral lower extremities. Physical Exam Vital Signs: Vital Signs: Last Vital Signs Temp 97.6 F 11/17/24 08:00 Pulse 80 11/17/24 08:00 Resp 18 11/17/24 08:00 BP 158/60 H 11/17/24 08:00 Pulse Ox 98 11/17/24 03:33 O2 Del Method Room Air 11/17/24 08:00 BMI result Body Mass Index 36.7 Const: General: cooperative, healthy appearing and comfortable Orientation/consciousness: oriented to person, oriented to place and oriented to time HEENT: Head: Yes normal to inspection Neck: Neck: Yes normal visual inspection Carotids: no bruits Chest: Chest palpation & inspection: normal inspection of the chest Resp: Effort & Inspection: normal respiratory effort and able to speak in complete sentences Auscultation: clear to auscultation bilaterally, no crackles, no rales, no rhonchi and no wheezes Cardio: Other: Bilateral DP signals only Rate: regular rate Rhythm: regular rhythm Heart sounds: S1 normal heart sound present and S2 normal heart sound present Bruits: no carotid bruits Peripheral pulses: Peripheral pulses 2+ throughout GI: Inspection: Yes normal to inspection Skin: Wounds: no wounds Hair: normal Neuro: General: oriented to person, oriented to place and oriented to time Cranial nerves: Yes CN's II-XII intact bilaterally and Yes Normal hearing present Cognition (Neuro): normal cognition Motor exam (neuro): 5/5 motor strength present throughout Extrem: Other: venous exam: No significant superficial varicosities or spider telangiectasias, minimal edema General: No clubbing, No cyanosis and No edema Psych: Appearance: grossly normal Mental Status: mental status grossly normal Speech and movement: Normal speech and movement present Progress Note: A&P Assessment and plan (1) PAD (peripheral artery disease): Status: Acute Assessment and Plan: In short patient has nonhealing left 3rd toe ulcer. There is underlying osteomyelitis. He will require long-term IV antibiotics. In addition clinically he has evidence of a Charcot foot. This [facility] be [facility] for [facility] in the [facility]. Will need possible referral as an outpatient to podiatry for appropriately fitting shoes. In addition I have taken the liberty of ordering noninvasive arterial testing to better elucidate the blood flow. I was unable to palpate pulses and some of this may be secondary to the edema. We will get noninvasive arterial testing and follow-up with him. Thank you for allowing us to assist in his care. If there are any questions or concerns please do not hesitate to contact us. Time Spent With Patient Time: Total time managing care of this patient today ____ minutes. Procedures Date of Service Date of Service: 11/17/24 Quality Stroke Does the patient have a stroke diagnosis?: No VTE Prior VTE?: No VTE Risk Level:: Medical - moderate - high VTE Device Contraindication: Treatment Not Indicated VTE Drug Contraindication: N/A - Med Ordered
--- NOTE | 2024-11-17 13:56 | P.CDIM_ITS ---
PROVIDER RESPONSE TEXT: To clarify, the appropriate diagnosis supported by the clinical indicators: Acute QUERY TEXT: PHYSICIAN'S DOCUMENTATION REQUEST Date of Query: 11/14/2024 11:37 AM EDT Patient Name: River Luque Admit Date: 11/11/[address] MD, A review of the medical record indicates additional documentation may be needed. Please review below and update the documentation accordingly. Clinical Indicators: Left third toe osteomyelitis, diabetic foot infection erythema, , discoloration, swelling and warmth with ulceration IV vancomycin and IV Zosyn Clarify which of the following accurately represents the acuity of the Osteomyelitis. Possible options might include: Acute Acute on chronic Compensated Chronic stable condition Remission Other (explain) Clinically unable to determine (explain) Thank you, Viki Schmidt RN Use of terms such as suspected, likely, concern for, or probable (associated with a specific diagnosis that is being evaluated, monitored, or treated as if it exists) are acceptable and can be coded in the inpatient setting, when documented at the time of discharge. Please use your independent medical judgment in providing your response. THIS QUERY IS PART OF THE PERMANENT MEDICAL RECORD
--- NOTE | 2024-11-17 14:39 | P.PNIM_ITS ---
Subjective Subjective Date of Service: 11/17/24 Interval History: kehinde on ckd, osteo Review of Systems no new c/o, cr similar Review of Systems: Yes all other systems are reviewed and are negative Physical Exam 2 Exam: Exam: Appearance: Alert.? Oriented X3. cvs: rrr, [id number] . res: air entry fair , no rales or wheezing abd: no rebound or guarding ,nt, bs present. ext Left 3rd toe with erythema, , discoloration, swelling and warmth with ulceration (please see ed physician note for pic) neuro: axo3 , nonfocal. Vital Signs: Vital Signs: Last Vital Signs Temp 97.6 F 11/17/24 08:00 Pulse 80 11/17/24 08:00 Resp 18 11/17/24 08:00 BP 158/60 H 11/17/24 08:00 Pulse Ox 98 11/17/24 03:33 O2 Del Method Room Air 11/17/24 08:00 BMI result Body Mass Index 36.7 Objective Data Active Medications Acetaminophen (Acetaminophen 325 Mg Tablet) 650 mg PO Q6H PRN PRN Reason: Pain, Mild 1-3,fever,headache Last Admin: 11/15/24 18:52 Dose: 650 mg Documented By: JORDON Atorvastatin Calcium (Atorvastatin Calcium 40 Mg Tablet) 40 mg PO BEDTIME NICHOLAS On Hold: 11/16/24 11:58 Last Admin: 11/15/24 18:52 Dose: 40 mg Documented By: JORDON Calcium Carbonate (Calcium Carbonate 750 Mg Tab.Chew) 750 mg PO Q4H PRN PRN Reason: Heartburn Carvedilol (Carvedilol 12.5 Mg Tablet) 12.5 mg PO BID NICHOLAS; Protocol Last Admin: 11/17/24 07:47 Dose: 12.5 mg Documented By: ALEXANDRE Clonidine HCl (Clonidine Hcl 0.2 Mg Tablet) 0.2 mg PO BID NICHOLAS; Protocol Last Admin: 11/17/24 07:46 Dose: 0.2 mg Documented By: ALEXANDRE Cyclobenzaprine HCl (Cyclobenzaprine Hcl 5 Mg Tablet) 5 mg PO TID PRN PRN Reason: Muscle Spasm Cyclobenzaprine HCl (Cyclobenzaprine Hcl 10 Mg Tablet) 10 mg PO TID PRN PRN Reason: Muscle Spasm Last Admin: 11/17/24 03:53 Dose: 10 mg Documented By: MEDINA Dextrose (Dextrose 50 % 25 Gm/50 Ml Syringe) 25 gm IVPUSH Q15M PRN; Protocol PRN Reason: per Hypoglycemia Standing Ord. Dextrose (Dextrose 50 % 25 Gm/50 Ml Syringe) 25 gm IVPUSH Q15M PRN; Protocol PRN Reason: per Hypoglycemia Standing Ord. Enoxaparin Sodium (Enoxaparin Sodium 30 Mg/0.3 Ml Syringe) 30 mg SUBCUT Q24H [facility] Last Admin: 11/17/24 11:59 Dose: 30 mg Documented By: ALEXANDRE Fenofibrate (Fenofibrate 54 Mg Tablet) 54 mg PO DAILY [facility] Last Admin: 11/17/24 07:46 Dose: 54 mg Documented By: ALEXANDRE Ferrous Sulfate (Ferrous Sulfate 324 Mg Tablet.Dr) 324 mg PO TID [facility] Last Admin: 11/17/24 07:46 Dose: 324 mg Documented By: ALEXANDRE Fluticasone Propionate (Fluticasone Propionate Nasal 16 Gm [place]) 2 spray NOSTRIL-B BID PRN PRN Reason: for allergies Furosemide (Furosemide 40 Mg Tablet) 40 mg PO BID [facility]; Protocol On Hold: 11/15/24 08:10 Last Admin: 11/14/24 20:50 Dose: 40 mg Documented By: MINAL Glucose (Glucose Gel 15 Gm Gel..Gram.) 15 gm PO Q15M PRN; Protocol PRN Reason: per Hypoglycemia Standing Ord. Glucose (Glucose Gel 15 Gm Gel..Gram.) 15 gm PO Q15M PRN; Protocol PRN Reason: per Hypoglycemia Standing Ord. Hydralazine HCl (Hydralazine Hcl 50 Mg Tablet) 50 mg PO TID [facility]; Protocol Last Admin: 11/17/24 07:46 Dose: 50 mg Documented By: ALEXANDRE Piperacillin Sod/Tazobactam (Sod 2.25 gm/ Sodium Chloride) 50 mls @ 100 mls/hr IV Q6H [facility] Last Infusion: 11/17/24 08:26 Dose: Infused Documented By: ALEXANDRE Daptomycin 650 mg/ Sodium (Chloride) 63 mls @ 99.78 mls/hr IV Q48H [facility] Last Infusion: 11/16/24 14:09 Dose: Infused Documented By: ALEXANDRE Insulin Glargine (Insulin Glargine,Hum.Rec.Anlog 100 Unit/Ml 10 Ml Vial) 12 unit SUBCUT DAILY@1700 [facility] Last Admin: 11/16/24 16:59 Dose: 12 unit Documented By: ALEXANDRE Insulin Human Lispro (Insulin Lispro 100 Unit/Ml 3 Ml Vial) 0 unit SUBCUT QIDACHS [facility]; Protocol Last Admin: 11/17/24 11:58 Dose: 2 unit Documented By: ALEXANDRE Isosorbide Mononitrate (Isosorbide Mononitrate 30 Mg Tab.Er.24h) 30 mg PO DAILY [facility]; Protocol Last Admin: 11/17/24 07:47 Dose: 30 mg Documented By: ALEXANDRE Magnesium Hydroxide (Milk Of Magnesia 30 Ml Oral.Susp) 30 ml PO DAILY PRN PRN Reason: Constipation Melatonin (Melatonin 3 Mg Tablet) 6 mg PO BEDTIME PRN PRN Reason: Insomnia Multivitamins/Vitamin C (Multivitamin Tablet) 1 tab PO DAILY [facility] Last Admin: 11/17/24 07:46 Dose: 1 tab Documented By: ALEXANDRE Ondansetron HCl (Ondansetron Hcl 4 Mg/2 Ml Vial) 4 mg IVPUSH Q8H PRN PRN Reason: Nausea and Vomiting Sodium Chloride (0.9 % Sodium Chloride Flush 3 Ml Syringe) 3 ml IVFLUSH QSHIFT [facility] Last Admin: 11/17/24 07:47 Dose: 3 ml Documented By: ALEXANDRE Sodium Polystyrene Sulfonate (Sodium Polystyrene Sulfon/Sorb 15 Gm/60 Ml Oral.Susp) 30 gm PO MOWEFR [facility] Last Admin: 11/16/24 21:35 Dose: 30 gm Documented By: MEIDNA Valsartan (Valsartan 160 Mg Tablet) 160 mg PO BID [facility]; Protocol On Hold: 11/15/24 08:10 Last Admin: 11/14/24 20:50 Dose: 160 mg Documented By: MINAL Vitamin D (Cholecalciferol (Vitamin D3) 25 Mcg Tablet) 50 mcg PO BEDTIME [facility] Last Admin: 11/16/24 21:01 Dose: 50 mcg Documented By: MEDINA Labs 11/16/24 06:05 11/17/24 05:46 Labs: Laboratory Results - last 24 hr 07/23/25 07/23/25 07/24/25 16:22 19:59 05:46 Hold Purple Top SEE NOTE Anion Gap 13 Estim Creat Clear Calc 24.8 Estimated GFR 15 POC Glucose 126 H 161 H Random Glucose 96 Calcium 8.3 L 11/17/24 11/17/24 07:20 11:09 Hold Purple Top Anion Gap Estim Creat Clear Calc Estimated GFR POC Glucose 88 157 H Random Glucose Calcium Microbiology Microbiology Results: Microbiology 11/11/24 16:31 Blood Culture - Final Blood - Venous No growth after 5 days. 11/11/24 16:31 Blood Culture - Final Blood - Venous No growth after 5 days. Assessment and Plan (1) Toe osteomyelitis, left: Status: Acute Assessment and Plan: 54-year-old male with pertinent history of insulin-dependent diabetes mellitus, mixed hyperlipidemia, hypertension, diastolic congestive heart failure, CKD stage 3, obstructive sleep apnea who presents to the emergency department for left lower extremity swelling and discoloration of left toe. Left 3rd toe osteomyelitis with diabetic foot infection and septic arthritis Continue IV vancomycin and Zosyn. follow cultures will likely need prison Abx and PICC line vascular surgery :nonhealing left 3rd toe ulcer. There is underlying osteomyelitis. He will require long-term IV antibiotics. In addition clinically he has evidence of a Charcot foot. This will be difficult for him in the prison. Will need possible referral as an outpatient to podiatry for appropriately fitting shoes. In addition I have taken the liberty of ordering noninvasive arterial testing to better elucidate the blood flow. added arterial dupplex. Back pain, musculoskeletal: get thoracic xray :No acute abnormality.Moderate degenerative disc disease at T12-L1. Sacralized right L5 transverse process and possible pseudoarticulation with upper S1. kehinde on CKD stage 3: s/p ivf cr similar moniter bmp closely Hold valsartan and Lasix. nephro input appreciated: recommend 500cc bolus of fluid today as patient may be slightly dry Recommend continuing to hold diuretic, ARB Recommend avoiding significant drops in blood pressure, should avoid IV hydralazine when possible complement levels pending to rule out dhruv-infectious GN (unlikely but should be ruled out). continue hydralazine PO 25mg TID, carvedilol 12.5mg BID, clonidine 0.2mg BID, and imdur 30mg PO daily for blood pressure control. Recommend daily electrolyte and renal function studies Recommend regular blood pressure checks, close I&O monitoring Recommend avoiding nephrotoxins Continue supportive care . HTN: please see above continue Coreg ,imdur ,clonidine, hydralzine adjusted . hold lasix and valsartan due tto kehinde on ckd. NANCY: CPAP at bedtime Diastolic congestive heart failure/hypertension: Continue valsartan spironolactone, carvedilol, empagliflozin and furosemide Mixed hyperlipidemia: On statin Insulin-dependent diabetes initiating Accu-Cheks with sliding scale insulin. Reduced home basal insulin DVT prophylaxis: Lovenox Full Code Reason for continued hospitalization: IV antibiotics. Awaiting cultures and specialist eval Quality Stroke Does the patient have a stroke diagnosis?: No VTE Prior VTE?: No VTE Risk Level:: Medical - moderate - high VTE Device Contraindication: Treatment Not Indicated VTE Drug Contraindication: N/A - Med Ordered
[2024-11-17 15:13] VITALS: BP 158/62; PULSE 74; RESP 18; TEMP 36.6; O2SAT 96
[2024-11-17 16:13] LABS: Glucose, Whole Blood 115 mg/dL (60-115)
[2024-11-17] MEDS: Insulin Glargine,Hum.rec.anlog 100 UNIT/ML 10 ML VIAL 12 UNIT SUBCUT (17:39)
[2024-11-17 19:43] VITALS: BP 160/62; PULSE 89; RESP 16; TEMP 36.6; O2SAT 97
[2024-11-17 20:54] LABS: Glucose, Whole Blood 154 mg/dL (60-115)
[2024-11-17 21:04] VITALS: BP 160/70
[2024-11-17 21:05] VITALS: BP 160/70; PULSE 86
[2024-11-18] VITALS (15 sets, daily range): BP systolic 134–205; BP diastolic 63–91; PULSE 65–87; RESP 12–20; TEMP 36.5–36.8; O2SAT 92–99
[2024-11-18 06:55] LABS: Anion Gap 11 (12-20); Blood Urea Nitrogen 47 mg/dL (9-16); Calcium 8.1 mg/dL (8.4-10.2); Carbon Dioxide 19 mmol/L (22-29); Chloride 105 mmol/L (96-108); Creatinine Clr Calc Pharmacy 22.3; Estimated Glomerular Filt Rate 13; Potassium 4.9 mmol/L (3.3-5.1); Sodium 130 mmol/L (135-145)
[2024-11-18 07:50] LABS: Glucose, Whole Blood 89 mg/dL (60-115)
[2024-11-18] MEDS: Ferrous Sulfate 324 MG TABLET.DR PO ×3 (08:24→21:07)
--- NOTE | 2024-11-18 08:55 | P.PNNP_ITS ---
Subjective Subjective Date of Service: 11/18/24 Interval history: Here for osteomyelitis of toe. Following for EZRA on CKD. Patient states he is feeling well. States he is voiding regularly just not being measured, just voided in toilet- he again did not measure as discussed, no UOP recorded. creatinine 4.64 today up from 4.17 yesterday. Physical Exam 2 Vital Signs: Vital Signs: Last Vital Signs Temp 98.1 F 11/18/24 08:00 Pulse 80 11/18/24 08:00 Resp 18 11/18/24 08:00 BP 140/70 H 11/18/24 08:00 Pulse Ox 97 11/18/24 08:00 O2 Del Method Room Air 11/18/24 08:00 BMI result Body Mass Index 36.7 Const: General: no acute distress, alert and awake Resp: Effort & Inspection: normal respiratory effort and able to speak in complete sentences Auscultation: clear to auscultation bilaterally Cardio: Rate: regular rate Rhythm: regular rhythm Heart sounds: S1 normal heart sound present and S2 normal heart sound present GI: Palpation (GI): Soft to palpation and nontender : General: Yes no CVA tenderness Back/Spine/Pelvis: Back: no CVA tenderness Skin: Rashes: no rashes Wounds: wounds noted (bilateral toe infections) Extrem: General: Yes edema (trace left lower extremity edema. ) Objective Data Labs 11/16/24 06:05 11/18/24 06:13 Labs: Laboratory Results - last 24 hr 11/16/24 11/17/24 11/17/24 06:04 11:09 16:08 Sodium Potassium Chloride Carbon Dioxide Anion Gap BUN Creatinine Estim Creat Clear Calc Estimated GFR POC Glucose 157 H 115 Random Glucose Calcium Complement C3 153 Complement C4 32 11/17/24 11/18/24 11/18/24 20:32 06:13 07:37 Sodium 130 L Potassium 4.9 Chloride 105 Carbon Dioxide 19 L Anion Gap 11 L BUN 47 H Creatinine 4.64 H* Estim Creat Clear Calc 22.3 Estimated GFR 13 POC Glucose 154 H 89 Random Glucose 95 Calcium 8.1 L Complement C3 Complement C4 Microbiology Microbiology Results: Microbiology 11/11/24 16:31 Blood - Venous Blood Culture - Final No growth after 5 days. 11/11/24 16:31 Blood - Venous Blood Culture - Final No growth after 5 days. Procedures Date of Service Date of Service: 11/18/24 Assessment & Plan Assessment and plan (1) Acute kidney injury superimposed on CKD: Status: Acute Plan Patient with hypertensive and diabetic chronic kidney disease stage 3 with worsening EZRA from osteomyelitis. initial EZRA likely secondary to cytokine release from infection and altered regulation in the kidney due to diuretics and ARB use while hypoalbuminemic caused tubular which caused tubular injury. Had second EZRA likely hemodynamic EZRA from precipitous drop in bleed pressure last evening after IV hydralazine use for elevated BP. recommend continuing to hold valsartan- restart lasix, patient appears hypervolemic today. Patient should NOT have PICC line placed. Will need alternative access and avoid central line placement in upper extremities as patient will likely need dialysis in a few years. Trista is ok from a renal standpoint if patient needs central IV access for IV antibiotics as outpatient. Recommend continuing to hold ARB Recommend avoiding significant drops in blood pressure, should avoid IV hydralazine when possible complement levels pending to rule out dhruv-infectious GN (unlikely but should be ruled out). continue hydralazine PO 50mg TID, carvedilol 12.5mg BID, clonidine 0.2mg BID, and imdur 30mg PO daily for blood pressure control. Recommend daily electrolyte and renal function studies Recommend regular blood pressure checks, close I&O monitoring Recommend avoiding nephrotoxins Continue supportive care Discussed with Dr Hernandez Time Spent With Patient Time: Total time managing care of this patient today ____ minutes. Progress Note: Quality Stroke Does the patient have a stroke diagnosis?: No
[2024-11-18 11:39] LABS: Glucose, Whole Blood 164 mg/dL (60-115)
--- NOTE | 2024-11-18 12:30 | MHC.CM.PN ---
Per MD rounds, patient not medically cleared for dc, worsening kidney function. Plan remains home w/ IV abx - [facility] to supply abx and [facility] to provide VNA. Updates sent. [facility] will provide teach on Thursday. Discussed w/ patient, who feels confident he can manage abx independently at home. Patient w/ questions about short term disability. He will reach out to his employer and follow up with this CM if needed. CM will continue to follow.
--- NOTE | 2024-11-18 15:36 | P.PNIM_ITS ---
Subjective Subjective Date of Service: 11/18/24 Interval History: kehinde,htn Review of Systems no new c/o,cr similar Physical Exam 2 Exam: Exam: Appearance: Alert.? Oriented X3. cvs: rrr, [id number] . res: air entry fair , no rales or wheezing abd: no rebound or guarding ,nt, bs present. ext Left 3rd toe with erythema, , discoloration, swelling and warmth with ulceration (please see ed physician note for pic) neuro: axo3 , nonfocal. Vital Signs: Vital Signs: Last Vital Signs Temp 98.1 F 11/18/24 08:00 Pulse 72 11/18/24 15:35 Resp 14 11/18/24 15:35 BP 200/86 H 11/18/24 15:35 Pulse Ox 93 11/18/24 15:35 O2 Del Method Room Air 11/18/24 15:35 BMI result Body Mass Index 36.7 Objective Data Active Medications Acetaminophen (Acetaminophen 325 Mg Tablet) 650 mg PO Q6H PRN PRN Reason: Pain, Mild 1-3,fever,headache Last Admin: 11/17/24 21:04 Dose: 650 mg Documented By: CONOR Atorvastatin Calcium (Atorvastatin Calcium 40 Mg Tablet) 40 mg PO BEDTIME [facility]ICH[facility] On Hold: 11/16/24 11:58 Last Admin: 11/15/24 18:52 Dose: 40 mg Documented By: JORDON Calcium Carbonate (Calcium Carbonate 750 Mg Tab.Chew) 750 mg PO Q4H PRN PRN Reason: Heartburn Carvedilol (Carvedilol 12.5 Mg Tablet) 12.5 mg PO BID [facility]; Protocol Last Admin: 11/18/24 08:23 Dose: 12.5 mg Documented By: PEDRO Clonidine HCl (Clonidine Hcl 0.2 Mg Tablet) 0.2 mg PO BID [facility]; Protocol Last Admin: 11/18/24 08:23 Dose: 0.2 mg Documented By: PEDRO Cyclobenzaprine HCl (Cyclobenzaprine Hcl 5 Mg Tablet) 5 mg PO TID PRN PRN Reason: Muscle Spasm Cyclobenzaprine HCl (Cyclobenzaprine Hcl 10 Mg Tablet) 10 mg PO TID PRN PRN Reason: Muscle Spasm Last Admin: 11/17/24 03:53 Dose: 10 mg Documented By: HO.PETERR Dextrose (Dextrose 50 % 25 Gm/50 Ml Syringe) 25 gm IVPUSH Q15M PRN; Protocol PRN Reason: per Hypoglycemia Standing Ord. Dextrose (Dextrose 50 % 25 Gm/50 Ml Syringe) 25 gm IVPUSH Q15M PRN; Protocol PRN Reason: per Hypoglycemia Standing Ord. Enoxaparin Sodium (Enoxaparin Sodium 30 Mg/0.3 Ml Syringe) 30 mg SUBCUT Q24H [facility] Last Admin: 11/18/24 11:53 Dose: 30 mg Documented By: PEDRO Fenofibrate (Fenofibrate 54 Mg Tablet) 54 mg PO DAILY [facility] Last Admin: 11/18/24 08:24 Dose: 54 mg Documented By: PEDRO Ferrous Sulfate (Ferrous Sulfate 324 Mg Tablet.Dr) 324 mg PO TID [facility] Last Admin: 11/18/24 08:24 Dose: 324 mg Documented By: PEDRO Fluticasone Propionate (Fluticasone Propionate Nasal 16 Gm [place]) 2 spray NOSTRIL-B BID PRN PRN Reason: for allergies Furosemide (Furosemide 40 Mg Tablet) 40 mg PO BID [facility]; Protocol Last Admin: 11/14/24 20:50 Dose: 40 mg Documented By: MINAL Glucose (Glucose Gel 15 Gm Gel..Gram.) 15 gm PO Q15M PRN; Protocol PRN Reason: per Hypoglycemia Standing Ord. Glucose (Glucose Gel 15 Gm Gel..Gram.) 15 gm PO Q15M PRN; Protocol PRN Reason: per Hypoglycemia Standing Ord. Hydralazine HCl (Hydralazine Hcl 50 Mg Tablet) 50 mg PO TID [facility]; Protocol Last Admin: 11/18/24 08:24 Dose: 50 mg Documented By: PEDRO Piperacillin Sod/Tazobactam (Sod 2.25 gm/ Sodium Chloride) 50 mls @ 100 mls/hr IV Q6H [facility] Last Infusion: 11/18/24 08:57 Dose: Infused Documented By: PEDRO Daptomycin 650 mg/ Sodium (Chloride) 63 mls @ 99.78 mls/hr IV Q48H [facility] Last Infusion: 11/18/24 12:43 Dose: Infused Documented By: PEDRO Insulin Glargine (Insulin Glargine,Hum.Rec.Anlog 100 Unit/Ml 10 Ml Vial) 12 unit SUBCUT DAILY@1700 [facility] Last Admin: 11/17/24 17:39 Dose: 12 unit Documented By: ALEXANDRE Insulin Human Lispro (Insulin Lispro 100 Unit/Ml 3 Ml Vial) 0 unit SUBCUT QIDACHS [facility]; Protocol Last Admin: 11/18/24 11:53 Dose: 2 unit Documented By: PEDOR Isosorbide Mononitrate (Isosorbide Mononitrate 30 Mg Tab.Er.24h) 30 mg PO DAILY [facility]; Protocol Last Admin: 11/18/24 08:23 Dose: 30 mg Documented By: PEDRO Magnesium Hydroxide (Milk Of Magnesia 30 Ml Oral.Susp) 30 ml PO DAILY PRN PRN Reason: Constipation Melatonin (Melatonin 3 Mg Tablet) 6 mg PO BEDTIME PRN PRN Reason: Insomnia Multivitamins/Vitamin C (Multivitamin Tablet) 1 tab PO DAILY [facility] Last Admin: 11/18/24 08:24 Dose: 1 tab Documented By: PEDRO Ondansetron HCl (Ondansetron Hcl 4 Mg/2 Ml Vial) 4 mg IVPUSH Q8H PRN PRN Reason: Nausea and Vomiting Sodium Chloride (0.9 % Sodium Chloride Flush 3 Ml Syringe) 3 ml IVFLUSH QSHIFT [facility] Last Admin: 11/18/24 08:27 Dose: Not Given Documented By: PEDRO Non-Admin Reason: IV Running Sodium Polystyrene Sulfonate (Sodium Polystyrene Sulfon/Sorb 15 Gm/60 Ml Oral.Susp) 30 gm PO MOWEFR [facility] Last Admin: 11/16/24 21:35 Dose: 30 gm Documented By: MEDINA Valsartan (Valsartan 160 Mg Tablet) 160 mg PO BID [facility]; Protocol On Hold: 11/15/24 08:10 Last Admin: 11/14/24 20:50 Dose: 160 mg Documented By: MINAL Vitamin D (Cholecalciferol (Vitamin D3) 25 Mcg Tablet) 50 mcg PO BEDTIME [facility] Last Admin: 11/17/24 21:05 Dose: 50 mcg Documented By: CONOR Labs 11/16/24 06:05 11/18/24 06:13 Labs: Laboratory Results - last 24 hr 11/16/24 11/17/24 11/17/24 06:04 16:08 20:32 Anion Gap Estim Creat Clear Calc Estimated GFR POC Glucose 115 154 H Random Glucose Calcium Complement C3 153 Complement C4 32 11/18/24 11/18/24 11/18/24 06:13 07:37 11:19 Anion Gap 11 L Estim Creat Clear Calc 22.3 Estimated GFR 13 POC Glucose 89 164 H Random Glucose 95 Calcium 8.1 L Complement C3 Complement C4 Assessment and Plan (1) Toe osteomyelitis, left: Status: Acute Assessment and Plan: 54-year-old male with pertinent history of insulin-dependent diabetes mellitus, mixed hyperlipidemia, hypertension, diastolic congestive heart failure, CKD stage 3, obstructive sleep apnea who presents to the emergency department for left lower extremity swelling and discoloration of left toe. Left 3rd toe osteomyelitis with diabetic foot infection and septic arthritis Continue IV daptomycin and Zosyn,follow cultures will likely need exterminator termite Abx and PICC line vascular surgery :nonhealing left 3rd toe ulcer. There is underlying osteomyelitis. He will require long-term IV antibiotics. In addition clinically he has evidence of a Charcot foot. This will be difficult for him in the halfway. Will need possible referral as an outpatient to podiatry for appropriately fitting shoes. In addition I have taken the liberty of ordering noninvasive arterial testing to better elucidate the blood flow. arterial dupplex:Right leg/left : Moderate to severe inflow disease posterior tibialis to dorsalis pedis arteries(d/w vascular -outpatient management Once kehinde improves) hiccman catheter -right Ij placed (as per IR -ready to use). Back pain, musculoskeletal: get thoracic xray :No acute abnormality.Moderate degenerative disc disease at T12-L1. Sacralized right L5 transverse process and possible pseudoarticulation with upper S1. denies any back pain kehinde on CKD stage 3: s/p ivf cr similar moniter bmp closely Hold valsartan , Lasix added bed due to hypovolemia., Recommend continuing to hold diuretic, ARB Recommend avoiding significant drops in blood pressure, should avoid IV hydralazine when possible complement levels pending to rule out dhruv-infectious GN (unlikely but should be ruled out). continue hydralazine PO 25mg TID, carvedilol 12.5mg BID, clonidine 0.2mg BID, and imdur 30mg PO daily for blood pressure control. Recommend daily electrolyte and renal function studies Recommend regular blood pressure checks, close I&O monitoring Recommend avoiding nephrotoxins Continue supportive care . HTN: please see above continue Coreg ,imdur ,clonidine, hydralzine adjusted . hold lasix and valsartan due tto kehinde on ckd. NANCY: CPAP at bedtime Diastolic congestive heart failure/hypertension: Continue valsartan spironolactone, carvedilol, empagliflozin and furosemide Mixed hyperlipidemia: hold statin Insulin-dependent diabetes initiating Accu-Cheks with sliding scale insulin. Reduced home basal insulin DVT prophylaxis: Lovenox Full Code Reason for continued hospitalization: IV antibiotics. Awaiting cultures and specialist eval Quality Stroke Does the patient have a stroke diagnosis?: No VTE Prior VTE?: No VTE Risk Level:: Medical - moderate - high VTE Device Contraindication: Treatment Not Indicated VTE Drug Contraindication: N/A - Med Ordered
[2024-11-18 16:26] LABS: Glucose, Whole Blood 114 mg/dL (60-115)
[2024-11-18] MEDS: 0.9 % Sodium Chloride Flush 3 ML SYRINGE IVFLUSH ×2 (16:27→21:14)
[2024-11-18] MEDS: Insulin Glargine,Hum.rec.anlog 100 UNIT/ML 10 ML VIAL 12 UNIT SUBCUT (17:41)
[2024-11-18 21:00] LABS: Glucose, Whole Blood 163 mg/dL (60-115)
[2024-11-19] VITALS (7 sets, daily range): BP systolic 133–195; BP diastolic 62–87; PULSE 65–95; RESP 16–20; TEMP 36.7–37.3; O2SAT 95–98
[2024-11-19 06:47] LABS: Creatinine Clr Calc Pharmacy 20.6; Estimated Glomerular Filt Rate 12
[2024-11-19 07:49] LABS: Glucose, Whole Blood 111 mg/dL (60-115)
[2024-11-19 07:57] LABS: Anion Gap 13 (12-20); Blood Urea Nitrogen 48 mg/dL (9-16); Calcium 8.0 mg/dL (8.4-10.2); Carbon Dioxide 18 mmol/L (22-29); Chloride 101 mmol/L (96-108); Creatinine Clr Calc Pharmacy 20.7; Estimated Glomerular Filt Rate 12; Potassium 4.5 mmol/L (3.3-5.1); Sodium 127 mmol/L (135-145)
[2024-11-19] MEDS: Ferrous Sulfate 324 MG TABLET.DR PO ×3 (08:12→20:03)
[2024-11-19] MEDS: 0.9 % Sodium Chloride Flush 3 ML SYRINGE IVFLUSH ×3 (08:16→20:05)
[2024-11-19 11:11] LABS: Glucose, Whole Blood 141 mg/dL (60-115)
--- NOTE | 2024-11-19 13:59 | P.PNIM_ITS ---
Subjective Subjective Date of Service: 11/19/24 Interval History: kehinde,htn Review of Systems cr slowly trending up still producing urine no fevers or new c/o Review of Systems: Yes all other systems are reviewed and are negative Physical Exam 2 Exam: Exam: Appearance: Alert.? Oriented X3. cvs: rrr, [id number] . res: air entry fair , no rales or wheezing abd: no rebound or guarding ,nt, bs present. ext Left 3rd toe with erythema seems mproving,has lower ext swelling b/l. neuro: axo3 , nonfocal. Vital Signs: Vital Signs: Last Vital Signs Temp 99.1 F 11/19/24 07:58 Pulse 65 11/19/24 10:51 Resp 16 11/19/24 07:58 BP 133/62 11/19/24 10:51 Pulse Ox 95 11/19/24 07:58 O2 Del Method Room Air 11/19/24 07:58 BMI result Body Mass Index 36.7 Objective Data Active Medications Acetaminophen (Acetaminophen 325 Mg Tablet) 650 mg PO Q6H PRN PRN Reason: Pain, Mild 1-3,fever,headache Last Admin: 11/17/24 21:04 Dose: 650 mg Documented By: CONOR Atorvastatin Calcium (Atorvastatin Calcium 40 Mg Tablet) 40 mg PO BEDTIME [facility]OL[facility] On Hold: 11/16/24 11:58 Last Admin: 11/15/24 18:52 Dose: 40 mg Documented By: JORDON Calcium Carbonate (Calcium Carbonate 750 Mg Tab.Chew) 750 mg PO Q4H PRN PRN Reason: Heartburn Carvedilol (Carvedilol 25 Mg Tablet) 25 mg PO BID [facility]; Protocol Last Admin: 11/19/24 08:12 Dose: 25 mg Documented By: ELIZABETH Clonidine HCl (Clonidine Hcl 0.2 Mg Tablet) 0.2 mg PO BID [facility]; Protocol Last Admin: 11/19/24 08:12 Dose: 0.2 mg Documented By: ELIZABETH Cyclobenzaprine HCl (Cyclobenzaprine Hcl 10 Mg Tablet) 10 mg PO TID PRN PRN Reason: Muscle Spasm Last Admin: 11/17/24 03:53 Dose: 10 mg Documented By: MEDINA Dextrose (Dextrose 50 % 25 Gm/50 Ml Syringe) 25 gm IVPUSH Q15M PRN; Protocol PRN Reason: per Hypoglycemia Standing Ord. Enoxaparin Sodium (Enoxaparin Sodium 30 Mg/0.3 Ml Syringe) 30 mg SUBCUT Q24H [facility] Last Admin: 11/19/24 12:20 Dose: 30 mg Documented By: ELIZABETH Fenofibrate (Fenofibrate 54 Mg Tablet) 54 mg PO DAILY [facility] Last Admin: 11/19/24 08:12 Dose: 54 mg Documented By: ELIZABETH Ferrous Sulfate (Ferrous Sulfate 324 Mg Tablet.Dr) 324 mg PO TID [facility] Last Admin: 11/19/24 08:12 Dose: 324 mg Documented By: ELIZABETH Fluticasone Propionate (Fluticasone Propionate Nasal 16 Gm [place]) 2 spray NOSTRIL-B BID PRN PRN Reason: for allergies Furosemide (Furosemide 40 Mg Tablet) 40 mg PO BID [facility]; Protocol Last Admin: 11/19/24 08:13 Dose: 40 mg Documented By: ELIZABETH Glucose (Glucose Gel 15 Gm Gel..Gram.) 15 gm PO Q15M PRN; Protocol PRN Reason: per Hypoglycemia Standing Ord. Hydralazine HCl (Hydralazine Hcl 50 Mg Tablet) 50 mg PO TID [facility]; Protocol Last Admin: 11/19/24 08:12 Dose: 50 mg Documented By: ELIZABETH Daptomycin 650 mg/ Sodium (Chloride) 63 mls @ 99.78 mls/hr IV Q48H [facility] Last Infusion: 11/18/24 12:43 Dose: Infused Documented By: PEDRO Insulin Glargine (Insulin Glargine,Hum.Rec.Anlog 100 Unit/Ml 10 Ml Vial) 12 unit SUBCUT DAILY@1700 [facility] Last Admin: 11/18/24 17:41 Dose: 12 unit Documented By: ROSALIND Insulin Human Lispro (Insulin Lispro 100 Unit/Ml 3 Ml Vial) 0 unit SUBCUT QIDACHS [facility]; Protocol Last Admin: 11/19/24 11:13 Dose: Not Given Documented By: ELIZABETH Non-Admin Reason: No Insulin Coverage Isosorbide Mononitrate (Isosorbide Mononitrate 30 Mg Tab.Er.24h) 30 mg PO DAILY [facility]; Protocol Last Admin: 11/19/24 08:12 Dose: 30 mg Documented By: ELIZABETH Magnesium Hydroxide (Milk Of Magnesia 30 Ml Oral.Susp) 30 ml PO DAILY PRN PRN Reason: Constipation Melatonin (Melatonin 3 Mg Tablet) 6 mg PO BEDTIME PRN PRN Reason: Insomnia Multivitamins/Vitamin C (Multivitamin Tablet) 1 tab PO DAILY [facility] Last Admin: 11/19/24 08:13 Dose: 1 tab Documented By: ELIZABETH Ondansetron HCl (Ondansetron Hcl 4 Mg/2 Ml Vial) 4 mg IVPUSH Q8H PRN PRN Reason: Nausea and Vomiting Sodium Chloride (0.9 % Sodium Chloride Flush 3 Ml Syringe) 3 ml IVFLUSH QSHIFT [facility] Last Admin: 11/19/24 08:16 Dose: 3 ml Documented By: ELIZABETH Sodium Polystyrene Sulfonate (Sodium Polystyrene Sulfon/Sorb 15 Gm/60 Ml Oral.Susp) 30 gm PO MOWEFR [facility] Last Admin: 11/18/24 21:12 Dose: 30 gm Documented By: JOY Valsartan (Valsartan 160 Mg Tablet) 160 mg PO BID [facility]; Protocol On Hold: 11/15/24 08:10 Last Admin: 11/14/24 20:50 Dose: 160 mg Documented By: MINAL Vitamin D (Cholecalciferol (Vitamin D3) 25 Mcg Tablet) 50 mcg PO BEDTIME [facility] Last Admin: 11/18/24 21:07 Dose: 50 mcg Documented By: JOY Labs 11/16/24 06:05 11/19/24 06:12 Labs: Laboratory Results - last 24 hr 11/18/24 11/18/24 11/19/24 16:23 20:46 06:12 Hold Purple Top SEE NOTE Anion Gap 13 Estim Creat Clear Calc 20.6 Estimated GFR POC Glucose 114 163 H Random Glucose Calcium 11/19/24 11/19/24 11/19/24 06:12 06:12 07:34 Hold Purple Top Anion Gap Estim Creat Clear Calc 20.7 Estimated GFR 12 12 POC Glucose 111 Random Glucose 110 Calcium 8.0 L 11/19/24 11:02 Hold Purple Top Anion Gap Estim Creat Clear Calc Estimated GFR POC Glucose 141 H Random Glucose Calcium Assessment and Plan (1) Toe osteomyelitis, left: Status: Acute Assessment and Plan: 54-year-old male with pertinent history of insulin-dependent diabetes mellitus, mixed hyperlipidemia, hypertension, diastolic congestive heart failure, CKD stage 3, obstructive sleep apnea who presents to the emergency department for left lower extremity swelling and discoloration of left toe. 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 There is underlying osteomyelitis. He will require long-term IV antibiotics. In addition clinically he has evidence of a Charcot foot. 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 Will need possible referral as an outpatient to podiatry for appropriately fitting shoes. In addition I have taken the liberty of ordering noninvasive arterial testing to better elucidate the blood flow. arterial dupplex:Right leg/left : Moderate to severe inflow disease posterior tibialis to dorsalis pedis arteries(d/w vascular -outpatient management Once kehinde improves) hiccman catheter -right Ij placed (as per IR -ready to use). Back pain, musculoskeletal: get thoracic xray :No acute abnormality.Moderate degenerative disc disease at T12-L1. Sacralized right L5 transverse process and possible pseudoarticulation with upper S1. denies any back pain kehinde on CKD stage 3: s/p ivf has significant proteinuria low sodium/leg edema -due to hypervolemia cr similar moniter bmp closely Hold valsartan , Lasix continue due to hypovolemia. Recommend continuing to hold diuretic, ARB Recommend avoiding significant drops in blood pressure, should avoid IV hydralazine when possible complement levels pending to rule out dhruv-infectious GN (unlikely but should be ruled out). continue hydralazine PO 50 mg TID, adjusted carvedilol 25mg BID, clonidine 0.2mg BID, and imdur 30mg PO daily for blood pressure control. Recommend daily electrolyte and renal function studies Recommend regular blood pressure checks, close I&O monitoring Recommend avoiding nephrotoxins Continue supportive care . HTN: please see above continue Coreg ,imdur ,clonidine, hydralzine adjusted . hold lasix and valsartan due tto kehinde on ckd. NANCY: CPAP at bedtime Diastolic congestive heart failure/hypertension: Continue valsartan spironolactone, carvedilol, empagliflozin and furosemide Mixed hyperlipidemia: hold statin Insulin-dependent diabetes initiating Accu-Cheks with sliding scale insulin. Reduced home basal insulin DVT prophylaxis: Lovenox Full Code Reason for continued hospitalization: IV antibiotics. Awaiting cultures and specialist eval Quality Stroke Does the patient have a stroke diagnosis?: No VTE Prior VTE?: No VTE Risk Level:: Medical - moderate - high VTE Device Contraindication: Treatment Not Indicated VTE Drug Contraindication: N/A - Med Ordered
[2024-11-19 16:12] LABS: Glucose, Whole Blood 134 mg/dL (60-115)
[2024-11-19] MEDS: Insulin Glargine,Hum.rec.anlog 100 UNIT/ML 10 ML VIAL 12 UNIT SUBCUT (16:56)
[2024-11-19 20:45] LABS: Glucose, Whole Blood 149 mg/dL (60-115)
[2024-11-20 03:40] VITALS: BP 120/58; PULSE 69; RESP 18; TEMP 36.8; O2SAT 98
[2024-11-20 06:32] LABS: Anion Gap 13 (12-20); Blood Urea Nitrogen 53 mg/dL (9-16); Calcium 8.1 mg/dL (8.4-10.2); Carbon Dioxide 18 mmol/L (22-29); Chloride 101 mmol/L (96-108); Creatinine Clr Calc Pharmacy 19.7; Estimated Glomerular Filt Rate 12; Potassium 4.7 mmol/L (3.3-5.1); Sodium 127 mmol/L (135-145)
[2024-11-20 07:53] LABS: Glucose, Whole Blood 96 mg/dL (60-115)
[2024-11-20 08:00] VITALS: BP 164/75; PULSE 83; RESP 16; TEMP 37.4; O2SAT 94
[2024-11-20] MEDS: Ferrous Sulfate 324 MG TABLET.DR PO ×3 (08:48→21:15)
[2024-11-20] MEDS: 0.9 % Sodium Chloride Flush 3 ML SYRINGE IVFLUSH ×3 (08:49→21:24)
[2024-11-20 11:25] LABS: Glucose, Whole Blood 165 mg/dL (60-115)
[2024-11-20 15:30] VITALS: BP 148/67; PULSE 78; RESP 16; TEMP 36.7; O2SAT 94
[2024-11-20 16:12] LABS: Glucose, Whole Blood 140 mg/dL (60-115)
[2024-11-20] MEDS: Insulin Glargine,Hum.rec.anlog 100 UNIT/ML 10 ML VIAL 12 UNIT SUBCUT (16:20)
--- NOTE | 2024-11-20 18:08 | P.PNIM_ITS ---
Subjective Subjective Date of Service: 11/20/24 Interval History: kehinde,htn Review of Systems cr slowly trending up still producing urine no fevers or new c/o Physical Exam 2 Exam: Exam: Appearance: Alert.? Oriented X3. cvs: rrr, [id number] . res: air entry fair , no rales or wheezing abd: no rebound or guarding ,nt, bs present. ext Left 3rd toe with erythema seems mproving,has lower ext swelling b/l. neuro: axo3 , nonfocal. Vital Signs: Vital Signs: Last Vital Signs Temp 98.0 F 11/20/24 15:30 Pulse 78 11/20/24 15:30 Resp 16 11/20/24 15:30 BP 148/67 H 11/20/24 15:30 Pulse Ox 94 11/20/24 15:30 O2 Del Method Room Air 11/20/24 15:30 BMI result Body Mass Index 36.7 Objective Data Active Medications Acetaminophen (Acetaminophen 325 Mg Tablet) 650 mg PO Q6H PRN PRN Reason: Pain, Mild 1-3,fever,headache Last Admin: 11/19/24 20:04 Dose: 650 mg Documented By: JOY Atorvastatin Calcium (Atorvastatin Calcium 40 Mg Tablet) 40 mg PO BEDTIME NICHOLAS On Hold: 11/16/24 11:58 Last Admin: 11/15/24 18:52 Dose: 40 mg Documented By: JORDON Calcium Carbonate (Calcium Carbonate 750 Mg Tab.Chew) 750 mg PO Q4H PRN PRN Reason: Heartburn Carvedilol (Carvedilol 25 Mg Tablet) 25 mg PO BID NICHOLAS; Protocol Last Admin: 11/20/24 08:49 Dose: 25 mg Documented By: ELIZABETH Clonidine HCl (Clonidine Hcl 0.2 Mg Tablet) 0.2 mg PO BID NICHOLAS; Protocol Last Admin: 11/20/24 08:49 Dose: 0.2 mg Documented By: ELIZABETH Cyclobenzaprine HCl (Cyclobenzaprine Hcl 10 Mg Tablet) 10 mg PO TID PRN PRN Reason: Muscle Spasm Last Admin: 11/17/24 03:53 Dose: 10 mg Documented By: MEDINA Dextrose (Dextrose 50 % 25 Gm/50 Ml Syringe) 25 gm IVPUSH Q15M PRN; Protocol PRN Reason: per Hypoglycemia Standing Ord. Enoxaparin Sodium (Enoxaparin Sodium 30 Mg/0.3 Ml Syringe) 30 mg SUBCUT Q24H [facility] Last Admin: 11/20/24 11:47 Dose: 30 mg Documented By: ELIZABETH Fenofibrate (Fenofibrate 54 Mg Tablet) 54 mg PO DAILY [facility] Last Admin: 11/20/24 08:48 Dose: 54 mg Documented By: ELIZABETH Ferrous Sulfate (Ferrous Sulfate 324 Mg Tablet.Dr) 324 mg PO TID [facility] Last Admin: 11/20/24 15:41 Dose: 324 mg Documented By: ELIZABETH Fluticasone Propionate (Fluticasone Propionate Nasal 16 Gm [place]) 2 spray NOSTRIL-B BID PRN PRN Reason: for allergies Furosemide (Furosemide 40 Mg Tablet) 40 mg PO BID [facility]; Protocol Last Admin: 11/20/24 08:48 Dose: 40 mg Documented By: ELIZABETH Glucose (Glucose Gel 15 Gm Gel..Gram.) 15 gm PO Q15M PRN; Protocol PRN Reason: per Hypoglycemia Standing Ord. Hydralazine HCl (Hydralazine Hcl 50 Mg Tablet) 50 mg PO TID [facility]; Protocol Last Admin: 11/20/24 15:41 Dose: 50 mg Documented By: ELIZABETH Daptomycin 650 mg/ Sodium (Chloride) 63 mls @ 99.78 mls/hr IV Q48H [facility] Last Infusion: 11/20/24 14:37 Dose: Infused Documented By: ELIZABETH Insulin Glargine (Insulin Glargine,Hum.Rec.Anlog 100 Unit/Ml 10 Ml Vial) 12 unit SUBCUT DAILY@1700 [facility] Last Admin: 11/20/24 16:20 Dose: 12 unit Documented By: ELIZABETH Insulin Human Lispro (Insulin Lispro 100 Unit/Ml 3 Ml Vial) 0 unit SUBCUT QIDACHS [facility]; Protocol Last Admin: 11/20/24 16:14 Dose: Not Given Documented By: ELIZABETH Non-Admin Reason: No Insulin Coverage Isosorbide Mononitrate (Isosorbide Mononitrate 30 Mg Tab.Er.24h) 30 mg PO DAILY [facility]; Protocol Last Admin: 11/20/24 08:49 Dose: 30 mg Documented By: ELIZABETH Magnesium Hydroxide (Milk Of Magnesia 30 Ml Oral.Susp) 30 ml PO DAILY PRN PRN Reason: Constipation Melatonin (Melatonin 3 Mg Tablet) 6 mg PO BEDTIME PRN PRN Reason: Insomnia Multivitamins/Vitamin C (Multivitamin Tablet) 1 tab PO DAILY [facility] Last Admin: 11/20/24 08:48 Dose: 1 tab Documented By: ELIZABETH Ondansetron HCl (Ondansetron Hcl 4 Mg/2 Ml Vial) 4 mg IVPUSH Q8H PRN PRN Reason: Nausea and Vomiting Sodium Chloride (0.9 % Sodium Chloride Flush 3 Ml Syringe) 3 ml IVFLUSH QSHIFT [facility] Last Admin: 11/20/24 15:42 Dose: 3 ml Documented By: ELIZABETH Sodium Polystyrene Sulfonate (Sodium Polystyrene Sulfon/Sorb 15 Gm/60 Ml Oral.Susp) 30 gm PO MOWEFR [facility] Last Admin: 11/18/24 21:12 Dose: 30 gm Documented By: JOY Valsartan (Valsartan 160 Mg Tablet) 160 mg PO BID [facility]; Protocol On Hold: 11/15/24 08:10 Last Admin: 11/14/24 20:50 Dose: 160 mg Documented By: MINAL Vitamin D (Cholecalciferol (Vitamin D3) 25 Mcg Tablet) 50 mcg PO BEDTIME [facility] Last Admin: 11/19/24 20:04 Dose: 50 mcg Documented By: JOY Labs 11/16/24 06:05 11/20/24 05:22 Labs: Laboratory Results - last 24 hr 11/19/24 11/20/24 11/20/24 20:25 05:22 05:22 Anion Gap 13 Estim Creat Clear Calc Cancelled 19.7 Estimated GFR Cancelled POC Glucose 149 H Random Glucose Calcium 11/20/24 11/20/24 11/20/24 05:22 07:33 11:20 Anion Gap Estim Creat Clear Calc Estimated GFR 12 POC Glucose 96 165 H Random Glucose 105 Calcium 8.1 L 11/20/24 16:04 Anion Gap Estim Creat Clear Calc Estimated GFR POC Glucose 140 H Random Glucose Calcium Assessment and Plan (1) Toe osteomyelitis, left: Status: Acute Assessment and Plan: 54-year-old male with pertinent history of insulin-dependent diabetes mellitus, mixed hyperlipidemia, hypertension, diastolic congestive heart failure, CKD stage 3, obstructive sleep apnea who presents to the emergency department for left lower extremity swelling and discoloration of left toe. Left 3rd toe osteomyelitis with diabetic foot infection and septic arthritis Continue IV daptomycin and Zosyn,follow cultures will likely need alf Abx and PICC line vascular surgery :nonhealing left 3rd toe ulcer. There is underlying osteomyelitis. He will require long-term IV antibiotics. In addition clinically he has evidence of a Charcot foot. This will be difficult for him in the [employer]. Will need possible referral as an outpatient to podiatry for appropriately fitting shoes. In addition I have taken the liberty of ordering noninvasive arterial testing to better elucidate the blood flow. arterial dupplex:Right leg/left : Moderate to severe inflow disease posterior tibialis to dorsalis pedis arteries(d/w vascular -outpatient management Once kehinde improves) hiccman catheter -right Ij placed (as per IR -ready to use). Back pain, musculoskeletal: get thoracic xray :No acute abnormality.Moderate degenerative disc disease at T12-L1. Sacralized right L5 transverse process and possible pseudoarticulation with upper S1. denies any back pain kehinde on CKD stage 3: s/p ivf has significant proteinuria low sodium/leg edema -due to hypervolemia cr similar moniter bmp closely Hold valsartan , Lasix continue due to hypovolemia. Recommend continuing to hold diuretic, ARB Recommend avoiding significant drops in blood pressure, should avoid IV hydralazine when possible complement levels pending to rule out dhruv-infectious GN (unlikely but should be ruled out). continue hydralazine PO 50 mg TID, adjusted carvedilol 25mg BID, clonidine 0.2mg BID, and imdur 30mg PO daily for blood pressure control. Recommend daily electrolyte and renal function studies Recommend regular blood pressure checks, close I&O monitoring Recommend avoiding nephrotoxins Continue supportive care . HTN: please see above continue Coreg ,imdur ,clonidine, hydralzine adjusted . hold lasix and valsartan due tto kehinde on ckd. NANCY: CPAP at bedtime Diastolic congestive heart failure/hypertension: Continue valsartan spironolactone, carvedilol, empagliflozin and furosemide Mixed hyperlipidemia: hold statin Insulin-dependent diabetes initiating Accu-Cheks with sliding scale insulin. Reduced home basal insulin DVT prophylaxis: Lovenox Full Code Reason for continued hospitalization: IV antibiotics. Awaiting cultures and specialist eval Quality Stroke Does the patient have a stroke diagnosis?: No VTE Prior VTE?: No VTE Risk Level:: Medical - moderate - high VTE Device Contraindication: Treatment Not Indicated VTE Drug Contraindication: N/A - Med Ordered
[2024-11-20 19:34] VITALS: BP 154/68; PULSE 93; RESP 18; TEMP 37.6; O2SAT 95
[2024-11-20 20:19] LABS: Glucose, Whole Blood 168 mg/dL (60-115)
[2024-11-20 21:17] VITALS: BP 186/80
[2024-11-21 04:00] VITALS: BP 167/83; PULSE 85; RESP 17; TEMP 36.7; O2SAT 95
[2024-11-21 07:18] LABS: Anion Gap 15 (12-20); Blood Urea Nitrogen 58 mg/dL (9-16); Calcium 8.3 mg/dL (8.4-10.2); Carbon Dioxide 18 mmol/L (22-29); Chloride 100 mmol/L (96-108); Creatinine Clr Calc Pharmacy 20.3; Estimated Glomerular Filt Rate 12; Potassium 4.9 mmol/L (3.3-5.1); Sodium 128 mmol/L (135-145)
[2024-11-21 07:43] LABS: Glucose, Whole Blood 112 mg/dL (60-115)
[2024-11-21 07:49] VITALS: BP 154/68; PULSE 86; RESP 18; TEMP 37.6; O2SAT 96
[2024-11-21] MEDS: Ferrous Sulfate 324 MG TABLET.DR PO ×3 (09:33→22:24)
[2024-11-21] MEDS: 0.9 % Sodium Chloride Flush 3 ML SYRINGE IVFLUSH ×3 (09:35→22:35)
[2024-11-21 10:30] VITALS: BP 138/65
--- NOTE | 2024-11-21 11:07 | MHC.CM.PN ---
Per MD rounds patient not medically cleared for dc. Trista in place. Awaiting ID eval & nephro clearance. CM will continue to follow.
[2024-11-21 11:48] LABS: Glucose, Whole Blood 171 mg/dL (60-115)
--- NOTE | 2024-11-21 11:57 | PM.PNNEP ---
Subjective Subjective Date of Service: 11/21/24 Interval history: Here for osteomyelitis of toe. Following for EZRA on CKD. Patient states he is feeling well. States he is voiding regularly- almost 1L in last 24 hours. creatinine is stabilizing- 4.99 on 11/19, 5.25 on 11/20, and 5.10 on 11/21 Physical Exam Vital Signs: Vital Signs: Last Vital Signs Temp 99.6 F 11/21/24 07:49 Pulse 86 11/21/24 07:49 Resp 18 11/21/24 07:49 BP 138/65 11/21/24 10:30 Pulse Ox 96 11/21/24 07:49 O2 Del Method Room Air 11/21/24 07:49 BMI result Body Mass Index 36.7 Const: General: no acute distress, alert and awake Resp: Effort & Inspection: normal respiratory effort and able to speak in complete sentences Auscultation: clear to auscultation bilaterally Cardio: Rate: regular rate Rhythm: regular rhythm Heart sounds: S1 normal heart sound present and S2 normal heart sound present GI: Palpation (GI): Soft to palpation and nontender : General: Yes no CVA tenderness Back/Spine/Pelvis: Back: no CVA tenderness Skin: Rashes: no rashes Wounds: wounds noted (bilateral toe infections) Extrem: General: Yes edema (+1 bilateral LE edema) Objective Data Labs 11/16/24 06:05 11/21/24 05:47 Labs: Laboratory Results - last 24 hr 11/20/24 11/20/24 11/21/24 16:04 20:12 05:47 Hold Purple Top SEE NOTE Sodium 128 L Potassium 4.9 Chloride 100 Carbon Dioxide 18 L Anion Gap 15 BUN 58 H Creatinine 5.10 H* Estim Creat Clear Calc 20.3 Estimated GFR 12 POC Glucose 140 H 168 H Random Glucose 112 Calcium 8.3 L 11/21/24 11/21/24 07:39 11:37 Hold Purple Top Sodium Potassium Chloride Carbon Dioxide Anion Gap BUN Creatinine Estim Creat Clear Calc Estimated GFR POC Glucose 112 171 H Random Glucose Calcium Microbiology Microbiology Results: Microbiology 11/11/24 16:31 Blood - Venous Blood Culture - Final No growth after 5 days. 11/11/24 16:31 Blood - Venous Blood Culture - Final No growth after 5 days. Procedures Date of Service Date of Service: 11/21/24 Assessment & Plan Assessment and plan (1) Acute kidney injury superimposed on CKD: Status: Acute Plan Patient with hypertensive and diabetic chronic kidney disease stage 3 with worsening EZRA from osteomyelitis. initial EZRA likely secondary to cytokine release from infection and altered regulation in the kidney due to diuretics and ARB use while hypoalbuminemic caused tubular which caused tubular injury. Had second EZRA likely hemodynamic EZRA from precipitous drop in bleed pressure last evening after IV hydralazine use for elevated BP. creatinine is now stabilizing- will watch for another day, if creatinine remains stable can consider discharge home with close follow up as outpatient. recommend continuing to hold valsartan. continue lasix 40mg PO BID, should give additional lasix 40mg IVP x2 today as patient appears hypervolemia- bedside echo per Dr Goins shows IVC 2.1cm and RV looks slightly enlarged Patient should NOT have PICC line placed. Will need alternative access and avoid central line placement in upper extremities as patient will likely need dialysis in a few years. 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 Recommend continuing to hold ARB Recommend avoiding significant drops in blood pressure, should avoid IV hydralazine when possible Recommend daily electrolyte and renal function studies Recommend regular blood pressure checks, close I&O monitoring Recommend avoiding nephrotoxins Continue supportive care Discussed with Dr Goins. Time Spent With Patient Time: Total time managing care of this patient today ____ minutes. Progress Note: Quality Stroke Does the patient have a stroke diagnosis?: No
[2024-11-21] MEDS: Furosemide 40 MG/4 ML VIAL IVPUSH (12:03)
--- NOTE | 2024-11-21 15:30 | P.PNIM_ITS ---
Subjective Subjective Date of Service: 11/21/24 Interval History: kehinde on ckd osteo Review of Systems cr slowly trending up still producing urine no fevers or new c/o Review of Systems: Yes all other systems are reviewed and are negative Physical Exam 2 Exam: Exam: Appearance: Alert.? Oriented X3. cvs: rrr, [id number] . res: air entry fair , no rales or wheezing abd: no rebound or guarding ,nt, bs present. ext Left 3rd toe with erythema seems mproving,has lower ext swelling b/l. neuro: axo3 , nonfocal. Vital Signs: Vital Signs: Last Vital Signs Temp 99.6 F 11/21/24 07:49 Pulse 86 11/21/24 07:49 Resp 18 11/21/24 07:49 BP 138/65 11/21/24 10:30 Pulse Ox 96 11/21/24 07:49 O2 Del Method Room Air 11/21/24 07:49 BMI result Body Mass Index 36.7 Objective Data Active Medications Acetaminophen (Acetaminophen 325 Mg Tablet) 650 mg PO Q6H PRN PRN Reason: Pain, Mild 1-3,fever,headache Last Admin: 11/19/24 20:04 Dose: 650 mg Documented By: JOY Atorvastatin Calcium (Atorvastatin Calcium 40 Mg Tablet) 40 mg PO BEDTIME NICHOLAS On Hold: 11/16/24 11:58 Last Admin: 11/15/24 18:52 Dose: 40 mg Documented By: JORDON Calcium Carbonate (Calcium Carbonate 750 Mg Tab.Chew) 750 mg PO Q4H PRN PRN Reason: Heartburn Carvedilol (Carvedilol 25 Mg Tablet) 25 mg PO BID NICHOLAS; Protocol Last Admin: 11/21/24 09:34 Dose: 25 mg Documented By: CHARITO Clonidine HCl (Clonidine Hcl 0.2 Mg Tablet) 0.2 mg PO BID NICHOLAS; Protocol Last Admin: 11/21/24 09:33 Dose: 0.2 mg Documented By: CHARITO Cyclobenzaprine HCl (Cyclobenzaprine Hcl 10 Mg Tablet) 10 mg PO TID PRN PRN Reason: Muscle Spasm Last Admin: 11/17/24 03:53 Dose: 10 mg Documented By: MEDINA Dextrose (Dextrose 50 % 25 Gm/50 Ml Syringe) 25 gm IVPUSH Q15M PRN; Protocol PRN Reason: per Hypoglycemia Standing Ord. Enoxaparin Sodium (Enoxaparin Sodium 30 Mg/0.3 Ml Syringe) 30 mg SUBCUT Q24H [facility] Last Admin: 11/21/24 12:03 Dose: 30 mg Documented By: CHARITO Fenofibrate (Fenofibrate 54 Mg Tablet) 54 mg PO DAILY [facility] Last Admin: 11/21/24 09:34 Dose: 54 mg Documented By: CHARITO Ferrous Sulfate (Ferrous Sulfate 324 Mg Tablet.Dr) 324 mg PO TID [facility] Last Admin: 11/21/24 09:33 Dose: 324 mg Documented By: CHARITO Fluticasone Propionate (Fluticasone Propionate Nasal 16 Gm [place]) 2 spray NOSTRIL-B BID PRN PRN Reason: for allergies Furosemide (Furosemide 40 Mg Tablet) 40 mg PO BID [facility]; Protocol Last Admin: 11/21/24 09:33 Dose: 40 mg Documented By: CHARITO Glucose (Glucose Gel 15 Gm Gel..Gram.) 15 gm PO Q15M PRN; Protocol PRN Reason: per Hypoglycemia Standing Ord. Hydralazine HCl (Hydralazine Hcl 50 Mg Tablet) 50 mg PO TID [facility]; Protocol Last Admin: 11/21/24 09:34 Dose: 50 mg Documented By: CHARITO Daptomycin 650 mg/ Sodium (Chloride) 63 mls @ 99.78 mls/hr IV Q48H [facility] Last Infusion: 11/20/24 14:37 Dose: Infused Documented By: ELIZABETH Insulin Glargine (Insulin Glargine,Hum.Rec.Anlog 100 Unit/Ml 10 Ml Vial) 12 unit SUBCUT DAILY@1700 [facility] Last Admin: 11/20/24 16:20 Dose: 12 unit Documented By: ELIZABETH Insulin Human Lispro (Insulin Lispro 100 Unit/Ml 3 Ml Vial) 0 unit SUBCUT QIDACHS [facility]; Protocol Last Admin: 11/21/24 12:04 Dose: 2 unit Documented By: CHARITO Isosorbide Mononitrate (Isosorbide Mononitrate 30 Mg Tab.Er.24h) 30 mg PO DAILY [facility]; Protocol Last Admin: 11/21/24 09:34 Dose: 30 mg Documented By: CHARITO Magnesium Hydroxide (Milk Of Magnesia 30 Ml Oral.Susp) 30 ml PO DAILY PRN PRN Reason: Constipation Melatonin (Melatonin 3 Mg Tablet) 6 mg PO BEDTIME PRN PRN Reason: Insomnia Multivitamins/Vitamin C (Multivitamin Tablet) 1 tab PO DAILY [facility] Last Admin: 11/21/24 09:33 Dose: 1 tab Documented By: CHARITO Ondansetron HCl (Ondansetron Hcl 4 Mg/2 Ml Vial) 4 mg IVPUSH Q8H PRN PRN Reason: Nausea and Vomiting Sodium Chloride (0.9 % Sodium Chloride Flush 3 Ml Syringe) 3 ml IVFLUSH QSHIFT [facility] Last Admin: 11/21/24 09:35 Dose: 3 ml Documented By: CHARITO Sodium Polystyrene Sulfonate (Sodium Polystyrene Sulfon/Sorb 15 Gm/60 Ml Oral.Susp) 30 gm PO MOWEFR [facility] Last Admin: 11/18/24 21:12 Dose: 30 gm Documented By: JOY Valsartan (Valsartan 160 Mg Tablet) 160 mg PO BID [facility]; Protocol On Hold: 11/15/24 08:10 Last Admin: 11/14/24 20:50 Dose: 160 mg Documented By: MINAL Vitamin D (Cholecalciferol (Vitamin D3) 25 Mcg Tablet) 50 mcg PO BEDTIME [facility] Last Admin: 11/20/24 21:15 Dose: 50 mcg Documented By: СВЕТЛАНА Labs 11/16/24 06:05 11/21/24 05:47 Labs: Laboratory Results - last 24 hr 11/20/24 11/20/24 11/21/24 16:04 20:12 05:47 Hold Purple Top SEE NOTE Anion Gap 15 Estim Creat Clear Calc 20.3 Estimated GFR 12 POC Glucose 140 H 168 H Random Glucose 112 Calcium 8.3 L Urine Osmolality Ur Random Sodium 11/21/24 11/21/24 11/21/24 07:39 11:37 11:48 Hold Purple Top Anion Gap Estim Creat Clear Calc Estimated GFR POC Glucose 112 171 H Random Glucose Calcium Urine Osmolality 260 L Ur Random Sodium < 20.0 Assessment and Plan (1) Toe osteomyelitis, left: Status: Acute Assessment and Plan: 54-year-old male with pertinent history of insulin-dependent diabetes mellitus, mixed hyperlipidemia, hypertension, diastolic congestive heart failure, CKD stage 3, obstructive sleep apnea who presents to the emergency department for left lower extremity swelling and discoloration of left toe. Left 3rd toe osteomyelitis with diabetic foot infection and septic arthritis Continue IV daptomycin and Zosyn,follow cultures will likely need termination clerk Abx and PICC line vascular surgery :nonhealing left 3rd toe ulcer. There is underlying osteomyelitis. He will require long-term IV antibiotics. In addition clinically he has evidence of a Charcot foot. This will be difficult for him in the assisted. Will need possible referral as an outpatient to podiatry for appropriately fitting shoes. In addition I have taken the liberty of ordering noninvasive arterial testing to better elucidate the blood flow. arterial dupplex:Right leg/left : Moderate to severe inflow disease posterior tibialis to dorsalis pedis arteries(d/w vascular -outpatient management Once kehinde improves) hiccman catheter -right Ij placed (as per IR -ready to use). Back pain, musculoskeletal: get thoracic xray :No acute abnormality.Moderate degenerative disc disease at T12-L1. Sacralized right L5 transverse process and possible pseudoarticulation with upper S1. denies any back pain kehinde on CKD stage 3: s/p ivf has significant proteinuria low sodium/leg edema -due to hypervolemia cr similar moniter bmp closely Hold valsartan , Lasix continue due to hypovolemia. Recommend continuing to hold diuretic, ARB Recommend avoiding significant drops in blood pressure, should avoid IV hydralazine when possible complement levels pending to rule out dhruv-infectious GN (unlikely but should be ruled out). continue hydralazine PO 50 mg TID, adjusted carvedilol 25mg BID, clonidine 0.2mg BID, and imdur 30mg PO daily for blood pressure control. Recommend daily electrolyte and renal function studies Recommend regular blood pressure checks, close I&O monitoring Recommend avoiding nephrotoxins Continue supportive care . HTN: please see above continue Coreg ,imdur ,clonidine, hydralzine adjusted . hold lasix and valsartan due tto kehinde on ckd. NANCY: CPAP at bedtime Diastolic congestive heart failure/hypertension: Continue valsartan spironolactone, carvedilol, empagliflozin and furosemide Mixed hyperlipidemia: hold statin Insulin-dependent diabetes initiating Accu-Cheks with sliding scale insulin. Reduced home basal insulin DVT prophylaxis: Lovenox Full Code Reason for continued hospitalization: IV antibiotics. Awaiting cultures and specialist eval Quality Stroke Does the patient have a stroke diagnosis?: No VTE Prior VTE?: No VTE Risk Level:: Medical - moderate - high VTE Device Contraindication: Treatment Not Indicated VTE Drug Contraindication: N/A - Med Ordered
[2024-11-21 15:38] VITALS: BP 155/71; PULSE 82; RESP 16; TEMP 37; O2SAT 95
[2024-11-21 16:23] LABS: Glucose, Whole Blood 139 mg/dL (60-115)
[2024-11-21] MEDS: Insulin Glargine,Hum.rec.anlog 100 UNIT/ML 10 ML VIAL 12 UNIT SUBCUT (16:29)
--- NOTE | 2024-11-21 16:39 | P.CNID_ITS ---
History of Present Illness Data of Consult Service Date: 11/21/24 Requesting physician: Skye Ring Primary Care Provider: Quique Tatum CNP HPI Reason for consult: left foot infection,OM He presents with left foot dscomfort ulcer left and fourth toe for weeks. He has no fever or chills. He has OM left 3/4 phalanx. [facility] Past Medical History Medical History CKD (chronic kidney disease) stage 3, GFR 30-59 ml/min Sleep apnea Chronic heart failure with preserved ejection fraction (HFpEF) Elevated cholesterol Iron deficiency anemia Chronic renal insufficiency Diabetic nephropathy Acute heart failure with preserved ejection fraction (HFpEF) Necrotizing subcutaneous infection Hypertension Type 2 diabetes Family History Family History Mother Diabetes Maternal Uncle Diabetes Sister Multiple sclerosis Father Liver failure Kidney failure Surgical History Surgical History History of pyloromyotomy Status post incision and drainage [place] teeth removed Social History Social History Household Members: Significant Other and Children Both parents involved: No Caregiver staying overnight: No Housing: House Are you a primary residential child care counselor to a significant other at home: No Do you presently have visiting nurse or other home services: No 75 years or older and lives alone: No Alcohol intake: current Alcohol intake frequency: holidays/special occasions only Alcohol type: beer Patient Tobacco Use Status: Former Tobacco user Tobacco use type: Cigarette Years Smoked: 4 e-Cigarette/Vaping Use: Never Used Second Hand Smoke Exposure: Yes Substance Use Type: Marijuana Advance Directives Date on File: 05/07/23 service: No Current occupational status: employed Current occupation: [employer] Current occupational exposures/hazards: No Cognitive needs: No Hearing needs: No Vision needs: No Meds Allergies Allergy/AdvReac Type Severity Reaction Status Date / Time No Known Allergies Allergy Verified 11/11/24 14:45 Active Medications: Current Medications Acetaminophen (Acetaminophen 325 Mg Tablet) 650 mg PO Q6H PRN PRN Reason: Pain, Mild 1-3,fever,headache Last Admin: 11/21/24 16:30 Dose: 650 mg Atorvastatin Calcium (Atorvastatin Calcium 40 Mg Tablet) 40 mg PO BEDTIME NICHOLAS On Hold: 11/16/24 11:58 Last Admin: 11/15/24 18:52 Dose: 40 mg Calcium Carbonate (Calcium Carbonate 750 Mg Tab.Chew) 750 mg PO Q4H PRN PRN Reason: Heartburn Carvedilol (Carvedilol 25 Mg Tablet) 25 mg PO BID NICHOLAS; Protocol Last Admin: 11/21/24 09:34 Dose: 25 mg Clonidine HCl (Clonidine Hcl 0.2 Mg Tablet) 0.2 mg PO BID NICHOLAS; Protocol Last Admin: 11/21/24 09:33 Dose: 0.2 mg Cyclobenzaprine HCl (Cyclobenzaprine Hcl 10 Mg Tablet) 10 mg PO TID PRN PRN Reason: Muscle Spasm Last Admin: 11/17/24 03:53 Dose: 10 mg Dextrose (Dextrose 50 % 25 Gm/50 Ml Syringe) 25 gm IVPUSH Q15M PRN; Protocol PRN Reason: per Hypoglycemia Standing Ord. Enoxaparin Sodium (Enoxaparin Sodium 30 Mg/0.3 Ml Syringe) 30 mg SUBCUT Q24H [facility] Last Admin: 11/21/24 12:03 Dose: 30 mg Fenofibrate (Fenofibrate 54 Mg Tablet) 54 mg PO DAILY NICHOLAS Last Admin: 11/21/24 09:34 Dose: 54 mg Ferrous Sulfate (Ferrous Sulfate 324 Mg Tablet.Dr) 324 mg PO TID NICHOLAS Last Admin: 11/21/24 15:43 Dose: 324 mg Fluticasone Propionate (Fluticasone Propionate Nasal 16 Gm [place]) 2 spray NOSTRIL-B BID PRN PRN Reason: for allergies Furosemide (Furosemide 40 Mg Tablet) 40 mg PO BID NICHOLAS; Protocol Last Admin: 11/21/24 09:33 Dose: 40 mg Glucose (Glucose Gel 15 Gm Gel..Gram.) 15 gm PO Q15M PRN; Protocol PRN Reason: per Hypoglycemia Standing Ord. Hydralazine HCl (Hydralazine Hcl 50 Mg Tablet) 50 mg PO TID NICHOLAS; Protocol Last Admin: 11/21/24 15:43 Dose: 50 mg Daptomycin 650 mg/ Sodium (Chloride) 63 mls @ 99.78 mls/hr IV Q48H NICHOLAS Last Infusion: 11/20/24 14:37 Dose: Infused Insulin Glargine (Insulin Glargine,Hum.Rec.Anlog 100 Unit/Ml 10 Ml Vial) 12 unit SUBCUT DAILY@1700 [facility] Last Admin: 11/21/24 16:29 Dose: 12 unit Insulin Human Lispro (Insulin Lispro 100 Unit/Ml 3 Ml Vial) 0 unit SUBCUT QIDACHS [facility] [place]; Protocol Last Admin: 11/21/24 16:21 Dose: Not Given Isosorbide Mononitrate (Isosorbide Mononitrate 30 Mg Tab.Er.24h) 30 mg PO DAILY [facility]; Protocol Last Admin: 11/21/24 09:34 Dose: 30 mg Magnesium Hydroxide (Milk Of Magnesia 30 Ml Oral.Susp) 30 ml PO DAILY PRN PRN Reason: Constipation Melatonin (Melatonin 3 Mg Tablet) 6 mg PO BEDTIME PRN PRN Reason: Insomnia Multivitamins/Vitamin C (Multivitamin Tablet) 1 tab PO DAILY [facility] [place] Last Admin: 11/21/24 09:33 Dose: 1 tab Ondansetron HCl (Ondansetron Hcl 4 Mg/2 Ml Vial) 4 mg IVPUSH Q8H PRN PRN Reason: Nausea and Vomiting Sodium Chloride (0.9 % Sodium Chloride Flush 3 Ml Syringe) 3 ml IVFLUSH QSHIFT [facility] [place] Last Admin: 11/21/24 15:43 Dose: 3 ml Sodium Polystyrene Sulfonate (Sodium Polystyrene Sulfon/Sorb 15 Gm/60 Ml Oral.Susp) 30 gm PO MOWEFR [facility] [place] Last Admin: 11/18/24 21:12 Dose: 30 gm Valsartan (Valsartan 160 Mg Tablet) 160 mg PO BID [facility]; Protocol On Hold: 11/15/24 08:10 Last Admin: 11/14/24 20:50 Dose: 160 mg Vitamin D (Cholecalciferol (Vitamin D3) 25 Mcg Tablet) 50 mcg PO BEDTIME [facility] [place] Last Admin: 11/20/24 21:15 Dose: 50 mcg Home Medications ?Medication ?Instructions ?Recorded ?Confirmed ?Last Taken ?Type multivitamin 1 tab PO DAILY 03/11/2210/2511/11/24 History omega-3 fatty acids-fish oil 684 1 cap PO DAILY 11/11/24 11/11/24 History mg-1,200 mg capsule,delayed release acetaminophen 500 mg tablet 1,000 mg PO BID PRN Pain 0 11/11/24 11/11/24 Unknown History cholecalciferol (vitamin D3) 50 50 mcg PO BEDTIME 10/2511/11/24 11/10/24 History mcg (2,000 unit) capsule fluticasone propionate 50 2 spray intranasal BID PRN f or 11/11/24 11/11/24 Unknown History mcg/actuation nasal allergies spray,suspension insulin glargine 100 unit/mL (3 15 unit subcut DAILY@1 700 11/11/24 11/11/24 11/10/24 History mL) subcutaneous pen (Basaglar KwikPen U-100 Insulin) sodium polystyrene sulfonate 30 g PO MOWEFR 11/11/24 0 11/11/24 11/09/24 History zinc acetate 25 mg (zinc) capsule 25 mg PO DAILY 11/1111/11/24 11/11/24 History Physical Exam 2 Vital Signs: Vital Signs: Last Vital Signs Temp 98.6 F 11/21/24 15:38 Pulse 82 11/21/24 15:38 Resp 16 11/21/24 15:38 BP 155/71 H 11/21/24 15:38 Pulse Ox 95 11/21/24 15:38 O2 Del Method Room Air 11/21/24 15:38 BMI result Body Mass Index 36.7 Const: General: cooperative HEENT: Head: Yes normal to inspection Face and sinus: Yes normal facial exam Mouth: Normal oral and palatal mucosa present Teeth and gingiva: d entition normal Eyes: General: appearance normal, both eyes and all related structures P upils: Equal, round and reactive pupils present Resp: Effort & Inspection: normal respiratory effort Cardio: Rate: regular rate Rhythm: regular rhythm GI: Palpation (GI): Soft to palpation and nontender : General: Yes no CVA tenderness Back/Spine/Pelvis: Back: no CVA tenderness Skin: General skin exam: no rashes or lesions noted Neuro: General: moves all extremities Cranial nerves: Yes Equal, round and reactive pupils present Extrem: Other: swelling left 3/4 toe,eschar under third toe,neuropathy,plus plus 2 Psych: Appearance: grossly normal Results Labs 11/16/24 06:05 11/21/24 05:47 Labs: BMP 11/21/24 05:47 Sodium 128 L Potassium 4.9 Chloride 100 Carbon Dioxide 18 L BUN 58 H Creatinine 5.10 H* Calcium 8.3 L Microbiology Microbiology Results: Microbiology 11/11/24 16:31 Blood - Venous Blood Culture - Final No growth after 5 days. 11/11/24 16:31 Blood - Venous Blood Culture - Final No growth after 5 days. Assessment and Plan (1) Toe osteomyelitis, left: Status: Acute Plan Daptomycin six weeks,hold statin Stop Zosyn Weekly CBC,creatinine and CK.
[2024-11-21 19:36] VITALS: BP 153/68; PULSE 81; RESP 16; TEMP 37.5; O2SAT 92
[2024-11-21 21:08] LABS: Glucose, Whole Blood 150 mg/dL (60-115)
[2024-11-21 22:11] VITALS: BP 168/78; PULSE 92; RESP 18; TEMP 37.3; O2SAT 92
[2024-11-22 04:00] VITALS: BP 146/68; PULSE 70; RESP 18; TEMP 36.7; O2SAT 97
[2024-11-22 06:33] LABS: Creatinine Clr Calc Pharmacy 20.5; Estimated Glomerular Filt Rate 12
[2024-11-22 07:49] LABS: Anion Gap 13 (12-20); Blood Urea Nitrogen 63 mg/dL (9-16); Calcium 8.3 mg/dL (8.4-10.2); Carbon Dioxide 17 mmol/L (22-29); Chloride 101 mmol/L (96-108); Potassium 4.9 mmol/L (3.3-5.1); Sodium 126 mmol/L (135-145)
[2024-11-22 08:00] VITALS: BP 164/72; PULSE 81; RESP 18; TEMP 37.7; O2SAT 92
[2024-11-22 08:01] LABS: Glucose, Whole Blood 91 mg/dL (60-115)
[2024-11-22] MEDS: 0.9 % Sodium Chloride Flush 3 ML SYRINGE IVFLUSH (08:04)
[2024-11-22] MEDS: Ferrous Sulfate 324 MG TABLET.DR PO (08:04)
[2024-11-22] MEDS: Furosemide 40 MG/4 ML VIAL IVPUSH (09:52)
--- NOTE | 2024-11-22 11:01 | P.PNIM_ITS ---
Subjective Subjective Date of Service: 11/22/24 Interval History: hyponatremia / kehinde Review of Systems seems similar Review of Systems: Yes all other systems are reviewed and are negative Physical Exam 2 Exam: Exam: Appearance: Alert.? Oriented X3. cvs: rrr, [id number] . res: air entry fair , no rales or wheezing abd: no rebound or guarding ,nt, bs present. ext Left 3rd toe with erythema seems mproving,has lower ext swelling b/l some neuro: axo3 , nonfocal. Vital Signs: Vital Signs: Last Vital Signs Temp 99.8 F 11/22/24 08:00 Pulse 81 11/22/24 08:00 Resp 18 11/22/24 08:00 BP 164/72 H 11/22/24 08:00 Pulse Ox 92 11/22/24 08:00 O2 Del Method Room Air 11/22/24 04:00 BMI result Body Mass Index 36.7 Objective Data Active Medications Acetaminophen (Acetaminophen 325 Mg Tablet) 650 mg PO Q6H PRN PRN Reason: Pain, Mild 1-3,fever,headache Last Admin: 11/21/24 22:26 Dose: 650 mg Documented By: VISHAL Comments: per pt request Atorvastatin Calcium (Atorvastatin Calcium 40 Mg Tablet) 40 mg PO BEDTIME NICHOLAS On Hold: 11/16/24 11:58 Last Admin: 11/15/24 18:52 Dose: 40 mg Documented By: JORDON Calcium Carbonate (Calcium Carbonate 750 Mg Tab.Chew) 750 mg PO Q4H PRN PRN Reason: Heartburn Carvedilol (Carvedilol 25 Mg Tablet) 25 mg PO BID NICHOLAS; Protocol Last Admin: 11/22/24 08:03 Dose: 25 mg Documented By: MOHIT Clonidine HCl (Clonidine Hcl 0.2 Mg Tablet) 0.2 mg PO BID NICHOLAS; Protocol Last Admin: 11/22/24 08:03 Dose: 0.2 mg Documented By: MOHIT Cyclobenzaprine HCl (Cyclobenzaprine Hcl 10 Mg Tablet) 10 mg PO TID PRN PRN Reason: Muscle Spasm Last Admin: 11/17/24 03:53 Dose: 10 mg Documented By: MEDINA Dextrose (Dextrose 50 % 25 Gm/50 Ml Syringe) 25 gm IVPUSH Q15M PRN; Protocol PRN Reason: per Hypoglycemia Standing Ord. Enoxaparin Sodium (Enoxaparin Sodium 30 Mg/0.3 Ml Syringe) 30 mg SUBCUT Q24H [facility] Last Admin: 11/21/24 12:03 Dose: 30 mg Documented By: CHARITO Fenofibrate (Fenofibrate 54 Mg Tablet) 54 mg PO DAILY [facility] Last Admin: 11/22/24 08:04 Dose: 54 mg Documented By: MOHIT Ferrous Sulfate (Ferrous Sulfate 324 Mg Tablet.Dr) 324 mg PO TID [facility] Last Admin: 11/22/24 08:04 Dose: 324 mg Documented By: MOHIT Fluticasone Propionate (Fluticasone Propionate Nasal 16 Gm [place]) 2 spray NOSTRIL-B BID PRN PRN Reason: for allergies Furosemide (Furosemide 40 Mg Tablet) 40 mg PO BID [facility]; Protocol Last Admin: 11/22/24 08:04 Dose: 40 mg Documented By: MOIHT Furosemide (Furosemide 40 Mg/4 Ml Vial) 40 mg IVPUSH ONCE ONE; Protocol Stop: 11/22/24 18:01 Glucose (Glucose Gel 15 Gm Gel..Gram.) 15 gm PO Q15M PRN; Protocol PRN Reason: per Hypoglycemia Standing Ord. Hydralazine HCl (Hydralazine Hcl 50 Mg Tablet) 50 mg PO TID [facility]; Protocol Last Admin: 11/22/24 08:04 Dose: 50 mg Documented By: MOHIT Daptomycin 650 mg/ Sodium (Chloride) 63 mls @ 99.78 mls/hr IV Q48H [facility] Last Infusion: 11/20/24 14:37 Dose: Infused Documented By: ELIZABETH Insulin Glargine (Insulin Glargine,Hum.Rec.Anlog 100 Unit/Ml 10 Ml Vial) 12 unit SUBCUT DAILY@1700 [facility] Last Admin: 11/21/24 16:29 Dose: 12 unit Documented By: CHARITO Insulin Human Lispro (Insulin Lispro 100 Unit/Ml 3 Ml Vial) 0 unit SUBCUT QIDACHS [facility]; Protocol Last Admin: 11/22/24 07:59 Dose: Not Given Documented By: MOHIT Non-Admin Reason: No Insulin Coverage Isosorbide Mononitrate (Isosorbide Mononitrate 30 Mg Tab.Er.24h) 30 mg PO DAILY [facility]; Protocol Last Admin: 11/22/24 08:03 Dose: 30 mg Documented By: MOHIT Magnesium Hydroxide (Milk Of Magnesia 30 Ml Oral.Susp) 30 ml PO DAILY PRN PRN Reason: Constipation Melatonin (Melatonin 3 Mg Tablet) 6 mg PO BEDTIME PRN PRN Reason: Insomnia Multivitamins/Vitamin C (Multivitamin Tablet) 1 tab PO DAILY [facility] Last Admin: 11/22/24 08:04 Dose: 1 tab Documented By: MOHIT Ondansetron HCl (Ondansetron Hcl 4 Mg/2 Ml Vial) 4 mg IVPUSH Q8H PRN PRN Reason: Nausea and Vomiting Sodium Chloride (0.9 % Sodium Chloride Flush 3 Ml Syringe) 3 ml IVFLUSH QSHIFT [facility] Last Admin: 11/22/24 08:04 Dose: 3 ml Documented By: MOHIT Sodium Polystyrene Sulfonate (Sodium Polystyrene Sulfon/Sorb 15 Gm/60 Ml Oral.Susp) 30 gm PO MOWEFR [facility] Last Admin: 11/21/24 22:32 Dose: 30 gm Documented By: VISHAL Valsartan (Valsartan 160 Mg Tablet) 160 mg PO BID [facility]; Protocol On Hold: 11/15/24 08:10 Last Admin: 11/14/24 20:50 Dose: 160 mg Documented By: MINAL Vitamin D (Cholecalciferol (Vitamin D3) 25 Mcg Tablet) 50 mcg PO BEDTIME [facility] Last Admin: 11/21/24 22:25 Dose: 50 mcg Documented By: VISHAL Labs 11/16/24 06:05 11/22/24 05:31 Labs: Laboratory Results - last 24 hr 11/21/24 11/21/24 11/21/24 11:37 11:48 16:18 Anion Gap Estim Creat Clear Calc Estimated GFR POC Glucose 171 H 139 H Random Glucose Calcium Urine Osmolality 260 L Ur Random Sodium < 20.0 11/21/24 11/22/24 11/22/24 21:04 05:31 07:55 Anion Gap 13 Estim Creat Clear Calc 20.5 Estimated GFR 12 POC Glucose 150 H 91 Random Glucose 103 Calcium 8.3 L Urine Osmolality Ur Random Sodium Assessment and Plan (1) Toe osteomyelitis, left: Status: Acute Assessment and Plan: 54-year-old male with pertinent history of insulin-dependent diabetes mellitus, mixed hyperlipidemia, hypertension, diastolic congestive heart failure, CKD stage 3, obstructive sleep apnea who presents to the emergency department for left lower extremity swelling and discoloration of left toe. Left 3rd toe osteomyelitis with diabetic foot infection and septic arthritis Continue IV daptomycin and Zosyn,follow cultures will likely need terminal block assembler Abx and PICC line vascular surgery :nonhealing left 3rd toe ulcer. There is underlying osteomyelitis. He will require long-term IV antibiotics. In addition clinically he has evidence of a Charcot foot. This will be difficult for him in the group home. Will need possible referral as an outpatient to podiatry for appropriately fitting shoes. In addition I have taken the liberty of ordering noninvasive arterial testing to better elucidate the blood flow. arterial dupplex:Right leg/left : Moderate to severe inflow disease posterior tibialis to dorsalis pedis arteries(d/w vascular -outpatient management Once kehinde improves) hiccman catheter -right Ij placed (as per IR -ready to use). Back pain, musculoskeletal: get thoracic xray :No acute abnormality.Moderate degenerative disc disease at T12-L1. Sacralized right L5 transverse process and possible pseudoarticulation with upper S1. denies any back pain kehinde on CKD stage 3: s/p ivf has significant proteinuria low sodium/leg edema -due to hypervolemia cr similar moniter bmp closely Hold valsartan , Lasix continue due to hypovolemia. Recommend continuing to hold diuretic, ARB Recommend avoiding significant drops in blood pressure, should avoid IV hydralazine when possible complement levels pending to rule out dhruv-infectious GN (unlikely but should be ruled out). continue hydralazine PO 50 mg TID, adjusted carvedilol 25mg BID, clonidine 0.2mg BID, and imdur 30mg PO daily for blood pressure control. Recommend daily electrolyte and renal function studies Recommend regular blood pressure checks, close I&O monitoring Recommend avoiding nephrotoxins Continue supportive care . HTN: please see above continue Coreg ,imdur ,clonidine, hydralzine adjusted . hold lasix and valsartan due tto kehinde on ckd. NANCY: CPAP at bedtime Diastolic congestive heart failure/hypertension: Continue valsartan spironolactone, carvedilol, empagliflozin and furosemide Mixed hyperlipidemia: hold statin Insulin-dependent diabetes initiating Accu-Cheks with sliding scale insulin. Reduced home basal insulin DVT prophylaxis: Lovenox Full Code Reason for continued hospitalization: IV antibiotics. Awaiting cultures and specialist eval Quality Stroke Does the patient have a stroke diagnosis?: No VTE Prior VTE?: No VTE Risk Level:: Medical - moderate - high VTE Device Contraindication: Treatment Not Indicated VTE Drug Contraindication: N/A - Med Ordered
[2024-11-22 11:37] LABS: Glucose, Whole Blood 161 mg/dL (60-115)
--- NOTE | 2024-11-22 11:56 | P.PNNP_ITS ---
Subjective Subjective Date of Service: 11/22/24 Interval history: Here for osteomyelitis of toe. Following for EZRA on CKD. Patient states he is feeling well. States he is voiding regularly- almost 1L in last 24 hours. creatinine is stabilizing- 4.99 on 11/19, 5.25 on 11/20, and 5.10 on 11/21, 5.05 7. Physical Exam 2 Vital Signs: Vital Signs: Last Vital Signs Temp 99.8 F 11/22/24 08:00 Pulse 81 11/22/24 08:00 Resp 18 11/22/24 08:00 BP 164/72 H 11/22/24 08:00 Pulse Ox 92 11/22/24 08:00 O2 Del Method Room Air 11/22/24 04:00 BMI result Body Mass Index 36.7 Const: General: no acute distress, alert and awake Resp: Effort & Inspection: normal respiratory effort and able to speak in complete sentences Auscultation: clear to auscultation bilaterally Cardio: Rate: regular rate Rhythm: regular rhythm Heart sounds: S1 normal heart sound present and S2 normal heart sound present GI: Palpation (GI): Soft to palpation and nontender : General: Yes no CVA tenderness Back/Spine/Pelvis: Back: no CVA tenderness Skin: Rashes: no rashes Wounds: wounds noted (bilateral toe infections) Extrem: General: Yes edema (+1 bilateral LE edema) Objective Data Labs 11/16/24 06:05 11/22/24 05:31 Labs: Laboratory Results - last 24 hr 11/21/24 11/21/24 11/21/24 11:48 16:18 21:04 Sodium Potassium Chloride Carbon Dioxide Anion Gap BUN Creatinine Estim Creat Clear Calc Estimated GFR POC Glucose 139 H 150 H Random Glucose Calcium Urine Osmolality 260 L Ur Random Sodium < 20.0 11/22/24 11/22/24 11/22/24 05:31 07:55 11:33 Sodium 126 L Potassium 4.9 Chloride 101 Carbon Dioxide 17 L Anion Gap 13 BUN 63 H Creatinine 5.05 H* Estim Creat Clear Calc 20.5 Estimated GFR 12 POC Glucose 91 161 H Random Glucose 103 Calcium 8.3 L Urine Osmolality Ur Random Sodium Microbiology Microbiology Results: Microbiology 11/11/24 16:31 Blood - Venous Blood Culture - Final No growth after 5 days. 11/11/24 16:31 Blood - Venous Blood Culture - Final No growth after 5 days. Procedures Date of Service Date of Service: 11/22/24 Assessment & Plan Assessment and plan (1) Acute kidney injury superimposed on CKD: Status: Acute Plan Patient with hypertensive and diabetic chronic kidney disease stage 3 with EZRA from osteomyelitis. initial EZRA likely secondary to cytokine release from infection and altered regulation in the kidney due to diuretics and ARB use while hypoalbuminemic caused tubular which caused tubular injury. Had second EZRA likely hemodynamic EZRA from precipitous drop in bleed pressure last evening after IV hydralazine use for elevated BP. creatinine is now stable, ok for discharge from renal standpoint. He has an outpatient appointment with his technical operations vice president on Thursday. recommend continuing to hold valsartan until he follows up with his technical operations vice president as outpatient. continue lasix 40mg PO BID, should give additional lasix 40mg IVP x2 today as patient appears hypervolemic- bedside echo per Dr Goins yesterday showed IVC 2.1cm and RV looks slightly enlarged, today patient continues to have lower extremity edema and sodium is 126, urine sodium <20. Patient should NOT have PICC line placed. Will need alternative access and avoid central line placement in upper extremities as patient will likely need dialysis in a few years. [place] is ok from a renal standpoint if patient needs central IV access for IV antibiotics as outpatient- per pt's technical operations vice president Dr Hernandez. Recommend avoiding significant drops in blood pressure, should avoid IV hydralazine when possible Recommend daily electrolyte and renal function studies Recommend regular blood pressure checks, close I&O monitoring Recommend avoiding nephrotoxins Continue supportive care Discussed with Dr Goins. Time Spent With Patient Time: Total time managing care of this patient today ____ minutes. Progress Note: Quality Stroke Does the patient have a stroke diagnosis?: No
--- NOTE | 2024-11-22 12:46 | PM.DS ---
DS: Providers Provider Date of Service: 11/22/24 Date of admission: 11/11/24 17:27 Date of discharge: 11/22/24 Primary care physician: Quique Tatum CNP Consults: 11/11/24 17:10 Consult to Infectious Diseases Routine Consulting Provider: [facility] [place] [facility] Reason for consultation: osteomyelitis Consult to Vascular Surgery Routine Consulting Provider: [facility] [place] [facility] Reason for consultation: toe osteomyelitis 11/14/24 10:19 Consult to Wound Care Routine Reason for consultation: diabetic ulcer left 3rd toe 11/15/24 08:09 Consult to Nephrology Routine Consulting Provider: [facility] [place] [facility] Reason for consultation: ezra on ckd Has provider been notified: No Attending physician on discharge: Skye Ring Discharging clinician: Skye Ring DS: Diagnosis Discharge Diagnosis (1) Acute kidney injury superimposed on CKD: Status: Acute DS: Summary Hospital Course Hospital Course: HPI:54-year-old male with pertinent history of insulin-dependent diabetes mellitus, mixed hyperlipidemia, hypertension, diastolic congestive heart failure, CKD stage 3, obstructive sleep apnea who presents to the emergency department for left lower extremity swelling and discoloration of left toe. Patient was seen recently in the ER for back pain and discharged with muscle relaxants. Patient states his back pain is worse with movement and relieved with muscle relaxants. The muscle relaxants make him drowsy and he is unable to take it during work hours. Since he was last seen in the ER, he noticed left foot swelling mainly left 3rd toe with redness. No associated fever or chills. He denies chest pain, palpitations, shortness breath, abdominal pain, changes in urinary or bowel habits. In the emergency department, imaging with proximal head of 3rd digit concerning for osteomyelitis and DIP joint septic arthriti Hospital course: 54-year-old male with pertinent history of insulin-dependent diabetes mellitus, mixed hyperlipidemia, hypertension, diastolic congestive heart failure, CKD stage 3, obstructive sleep apnea who presents to the emergency department for left lower extremity swelling and discoloration of left toe. Left 3rd toe osteomyelitis with diabetic foot infection and septic arthritis: xray foot:Lucency involving the middle phalanx and lucency and irregularity of the proximal phalanx head of the third digit is concerning for osteomyelitis and possible fracture of the head of the proximal phalanx and DIP joint septic arthritis. Initially patient is started on IV antibiotics, cultures sent. Arterial duplex was done (please see detailed imaging in the imaging report section)-:Right leg/left : Moderate to severe inflow disease posterior tibialis to dorsalis pedis arteries. vascular surgery :nonhealing left 3rd toe ulcer. There is underlying osteomyelitis. He will require long-term IV antibiotics. In addition clinically he has evidence of a Charcot foot. 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 Vascular reviewed arterial duplex recommended outpatient follow-up for further management. Consider possible referral as an outpatient to podiatry for appropriately fitting shoes. Back pain, musculoskeletal: get thoracic xray :No acute abnormality.Moderate degenerative disc disease at T12-L1.Sacralized right L5 transverse process and possible pseudoarticulation with upper S1. Currently denies any back pain. Follow up outpatient ezra on CKD stage 3: s/p ivf seen and followed by nephrology:has significant proteinuria,low sodium/leg edema -due to hypervolemia Patient with hypertensive and diabetic chronic kidney disease stage 3 with EZRA from osteomyelitis. initial EZRA likely secondary to cytokine release from infection and altered regulation in the kidney due to diuretics and ARB use while hypoalbuminemic caused tubular which caused tubular injury. Had second EZRA likely hemodynamic EZRA from precipitous drop in bleed pressure last evening after IV hydralazine use for elevated BP. complement levels pending to rule out dhruv-infectious GN (unlikely but should be ruled out). nephrology recomended Weston -which was placed by IR for alf antibiotics. Recommend continuing to ARB .lasix started back due to hypovolemia. continue hydralazine PO 50 mg TID,carvedilol 25mg BID, clonidine 0.2mg BID, and imdur 30mg PO daily for blood pressure control. Recommend electrolyte and renal function studies Recommend regular blood pressure checks. Recommend avoiding nephrotoxins Continue supportive care . NANCY: CPAP at bedtime Diastolic congestive heart failure/hypertension: hold valsartan and empagliflozin due to severe ezra. Continue Coreg, Lasix as above. plan: Please complete daptomycin as prescribed for osteomyelitis-end date is 12/28/2024. Hold atorvastatin until on daptomycin. Wound care instructions see in the discharge instructions section. Please consider outpatient CBC, CMP, CPK Q weekly while on antibiotics. EZRA/hyponatremia in the setting of mild hypovolemia: Continue Lasix, monitor BMP as above, Nephro Nephro will arrange their own appointment. Losartan, Jardiance , metformin stopped due to severe EZRA. Avoid nephrotoxic medications and substances. Added sliding scale coverage in addition to Lantus for diabetes control. Diabetic education given. Hypotension: Coreg adjusted to 25 b.i.d., Imdur added, also hydralazine added as above. Patient needs to follow-up with Dr. Ivory's office because of PVD outpatient. If any new symptoms shortness of breath nausea vomiting or any worsening foot infection or any new complaints go to the nearest emergency room for further evaluation. Assessment and plan coordination time spent 50 minute. Patient understand and in agreement with the above plan, all questions answered. Staff was present during conversation. Time Attestation Total time managing care of this patient today: 50 mintues. Discharge Coordination Time (in mins): 50 min Quality: Safe Use of Opioids Does Pt have an Active Cancer Diagnosis on the Problem List?: No Quality: Stroke Does the patient have a stroke diagnosis?: No Physical Exam Exam: Exam: Appearance: Alert.? Oriented X3. cvs: rrr, [id number] . res: air entry fair , no rales or wheezing abd: no rebound or guarding ,nt, bs present. ext Left 3rd toe with erythema seems improved /no drainage,mild lower ext swelling b/l. neuro: axo3 , nonfocal. Vital Signs: Vital Signs: Last Vital Signs Temp 99.8 F 11/22/24 08:00 Pulse 81 11/22/24 08:00 Resp 18 11/22/24 08:00 BP 164/72 H 11/22/24 08:00 Pulse Ox 92 11/22/24 08:00 O2 Del Method Room Air 11/22/24 04:00 BMI result Body Mass Index 36.7 DS: Data Data Completed and Pending Completed studies during hospitalization [Text1]: Procedures Excision of Buttock Subcutaneous Tissue and Fascia, Open Approach (03/11/22) Labs on day of discharge: Laboratory Results - last 24 hr 11/21/24 11/21/24 11/22/24 16:18 21:04 05:31 Sodium 126 L Potassium 4.9 Chloride 101 Carbon Dioxide 17 L Anion Gap 13 BUN 63 H Creatinine 5.05 H* Estim Creat Clear Calc 20.5 Estimated GFR 12 POC Glucose 139 H 150 H Random Glucose 103 Calcium 8.3 L 11/22/24 11/22/24 07:55 11:33 Sodium Potassium Chloride Carbon Dioxide Anion Gap BUN Creatinine Estim Creat Clear Calc Estimated GFR POC Glucose 91 161 H Random Glucose Calcium Imaging Chest x-ray: Radiologist's impression: ITS Impressions Venous Duplex 11/11/24 15:00 IMPRESSION: No evidence of acute DVT in the left lower extremity. Foot X-Ray 11/11/24 15:45 IMPRESSION: Lucency involving the middle phalanx and lucency and irregularity of the proximal phalanx head of the third digit is concerning for osteomyelitis and possible fracture of the head of the proximal phalanx and DIP joint septic arthritis. Suspected interval amputation of the fourth proximal phalanx head. Lumbar Spine X-Ray 11/14/24 10:31 IMPRESSION: No acute abnormality. Moderate degenerative disc disease at T12-L1. Sacralized right L5 transverse process and possible pseudoarticulation with upper S1. Arterial/Peripheral Duplex 11/17/24 16:58 IMPRESSION: Right leg: Moderate to severe inflow disease posterior tibialis to dorsalis pedis arteries. Left leg: Moderate to severe inflow disease dorsalis base artery. Minimal flow versus occluded peroneal artery. PANCHO Reference: - >1.4 = calcified vessels - 0.9 - 1.4 = normal - no significant arterial disease - 0.7 - 0.89 = mild peripheral arterial disease - 0.51 - 0.69 = moderate peripheral arterial disease - 0.50 = severe peripheral arterial disease - < .30 = critical arterial disease Electronically signed by: Markie Bar MD 11/18/2024 07:18 AM EDT Insertion Tunneled Catheter 11/18/24 13:44 IMPRESSION: Placement of a tunneled dual-lumen Weston catheter PLAN: -The catheter may be used immediately. This procedure was performed by Justin Stallworth NP, and supervised by Neeraj Peralta M.D. Electronically signed by: Neeraj Peralta MD 11/21/2024 09:09 AM EDT Workstation: [id number] Discharge Plan Discharge Anticipated Discharge Date/Time: 11/22/24 12:19 Patient Disposition: Home Health Service Discharge Diagnosis: Left 3rd toe osteomyelitis, uncontrolled hypotension, hyponatremia, peripheral vascular disease Referrals: [facility] [Other] - 1 Day Referral Note: [facility] will deliver your IV antibiotics [facility] [Outside] - 3-5 Days Referral Note: Ronald will call you to schedule home nursing appointments Jovani Hernandez MD [Physician, Nephrology] - 1 Week Maik Ivory MD [Physician, Vascular Surgery] - 1 Week Quique Tatum CNP [Primary Care Provider, Internal Medicine] - 1 Week Discharge Medications: New daptomycin 350 mg Recon Soln 650 mg IV Q48H Qty: 35 0RF Rx Instructions: end date is 12/28/24 carvedilol 25 mg Tablet 25 mg PO BID Qty: 180 0RF Protocol: Hold for SBP/HR < HOLD for SBP < : 90 HOLD for HR < : 60 isosorbide mononitrate 30 mg Tablet Extended Release 24 Hr 30 mg PO DAILY Qty: 90 0RF Protocol: Hold for SBP< HOLD for SBP < : 90 hydralazine 50 mg Tablet 50 mg PO TID Qty: 360 0RF Protocol: Hold for SBP< HOLD for SBP < : 90 insulin lispro [Humalog KwikPen Insulin] 100 unit/mL insulin pen 0 sliding scale dose SUBCUT QIDACHS Qty: 15 0RF Rx Instructions: Blood Sugar: <150 - 0 units 151-200 - 2 units 201-250 - 4 units 251-300 - 6 units 301-350 - 8 units >350 - 10 units Continued (DME) FreeStyle Lite Strips Strip Qty: 100 4RF Rx Instructions: Test four times a day or as directed. (DME) lancets [FreeStyle Lancets] 28 gauge misc See Rx Instructions .ROUTE .COMPLEX Qty: 100 2RF Dose Instruction: TEST FOUR TIMES A DAY OR DIRECTED. Rx Instructions: TEST FOUR TIMES A DAY OR DIRECTED. ferrous sulfate 325 mg (65 mg iron) tablet 325 mg PO TID Qty: 270 1RF fenofibrate 54 mg tablet 54 mg PO DAILY Qty: 90 1RF (DME) pen needle, diabetic 32 gauge x 5/32 needle See Rx Instructions .ROUTE .COMPLEX Qty: 120 8RF Dose Instruction: USE FOUR TIMES A DAY OR DIRECTED. Rx Instructions: USE FOUR TIMES A DAY OR DIRECTED. multivitamin Tablet 1 tab PO DAILY (DME) blood-glucose meter [FreeStyle Lite Meter] Kit Qty: 1 0RF Rx Instructions: As Directed omega-3 fatty acids-fish oil 684-1,200 mg Capsule,Delayed Release(Dr/Ec) 1 cap PO DAILY cyclobenzaprine 10 mg tablet 10 mg PO TID PRN (Reason: muscle spasm) Qty: 15 0RF sodium polystyrene sulfonate Powder 30 g PO MOWEFR zinc acetate 25 mg (zinc) capsule 25 mg PO DAILY Rx Instructions: substitute of 30 mg capsules ok fluticasone propionate 50 mcg/actuation spray,suspension 2 spray intranasal BID PRN (Reason: for allergies) cholecalciferol (vitamin D3) 50 mcg (2,000 unit) capsule 50 mcg PO BEDTIME acetaminophen 500 mg Tablet 1,000 mg PO BID PRN (Reason: Pain) (DME) comp.stocking,knee,long,medium Misc See Rx Instructions .Route Qty: 12 0RF Rx Instructions: As directed furosemide 40 mg tablet 40 mg PO BID 90 Days Qty: 180 1RF clonidine HCl 0.2 mg tablet 0.2 mg PO BID 90 Days Qty: 180 1RF Changed insulin glargine [Basaglar KwikPen U-100 Insulin] 100 unit/mL (3 mL) insulin pen 12 unit subcut DAILY@1700 Qty: 15 0RF Held atorvastatin 40 mg tablet 40 mg PO BEDTIME 30 Days Qty: 30 3RF Hold Instructions: Resume on 12/29/24. Discontinued valsartan 160 mg tablet 160 mg PO BID 90 Days Qty: 180 1RF metformin 1,000 mg tablet 1,000 mg PO BID Qty: 180 1RF carvedilol 12.5 mg tablet 12.5 mg PO BID 90 Days Qty: 180 1RF Rx Instructions: must administer with a meal/food REPLACES METOPROLOL empagliflozin 25 mg tablet 25 mg PO DAILY 90 Days Qty: 90 3RF Discharge Orders: Discharge Order (Routine); Ordered 11/22/24 Ordered By: Skye Ring Diet: Advance to usual diet Activity on Discharge: As tolerated Stand Alone Forms: Patient Portal Discharge page, Work/School Release Print Language: Tunisian Activity Restrictions/Additional Instructions: Topical Wound Care Recommendations: 1. Provide adequate and supplemental nutrition.? 2. When applicable maintain blood glucose levels per Providers order. Left 3rd Toe - Limit standing and walking directly on foot. Cleanse and irrigate with NS, Pat dry.? Apply skin prep to periwound, lightly pack with Durafiber AG, be sure to leave a wick to easy removal.? Cover with dry gauze dressing.? Change every other day. Right 4th Toe - Pain with Betadine may leave ERROL. Discussed benefits of Cream swith Urea such as Eucerin to heels and callused areas of feet. Advised to dry feet well inspect feet and between toes for wounds. Do not apply cream between toes. Recommend follow up out patient Wound Clinic at [address] [place] [address] and to call for an appointment at time of discharge. [phone].? Benefits of going to Outpt wound clinic would be referral to Podiatry, referral for specialized orthopedic shoes / insert. Patient does appear to have suspected Charcot foot changes - may benefit from Orthopedic consultation outpatient. Care Plan Goals: Please complete daptomycin as prescribed for osteomyelitis-end date is 12/28/2024. Hold atorvastatin until on daptomycin. Please consider outpatient CBC, CMP, CPK Q weekly while on antibiotics. EZRA/hyponatremia in the setting of mild hypovolemia: Continue Lasix, monitor BMP as above, Nephro Nephro will arrange their own appointment. Losartan, Jardiance , metformin stopped due to severe EZRA. Avoid nephrotoxic medications and substances. Added sliding scale coverage in addition to Lantus for diabetes control. Diabetic education given. Hypotension: Coreg adjusted to 25 b.i.d., Imdur added, also hydralazine added as above. Patient needs to follow-up with Dr. Ivory's office because of PVD outpatient. If any new symptoms shortness of breath nausea vomiting or any worsening foot infection or any new complaints go to the nearest emergency room for further evaluation. Health Concerns: As above. Plan of Treatment: As above. Assessment: As above. Patient Instructions: Osteomyelitis (DC), Hyponatremia (DC), Peripheral Vascular Disease (DC), Chronic Hypertension (DC), Diabetes and Exercise (DC)
--- NOTE | 2024-11-22 13:03 | MHC.CM.PN ---
Per MD, patient medically cleared for dc home to complete IV abx. [facility] will supply abx, [facility] will provide senior living. Patient had teach w/ [facility] yesterday and feels confident he can manage independently. Car is in [facility] [place] for self transport, RN aware.
--- NOTE | 2024-11-22 14:42 | P.F2F_ITS ---
Service Date Service Date: 11/22/24 Encounter Date of encounter: 11/22/24 Encounter: kehinde, pad, osteo toe Reasons for Services Signs and symptoms assessed: Any new changes in the toe infection, fever, shortness of breath nausea vomiting or any new symptoms. Reason for senior living: CV/CP assess and/or care, wound care, diabetic teaching, monitoring of unstable blood sugar, medication management, medication treatment and teach disease management MD Overseeing Care: Qiuque Tatum Homebound: Leaving the home is medically contraindicated at this time without the asist of a device and/or another person due th the listed conditions above and below. Reason homebound: weakness related to hospital stay Homebound supporting statement: Patient is generalised weak post hospitlisation and need help with going to appointments and labs draws as well as PT. Certification: Based on the above findings, I certify that this patient is confined to the home and needs intermittent senior living care, physical therapy and/or speech therapy, or continues to need occupational therapy. The patient is under my care, and I have initiated the establishment of the plan of care. The patient will be followed by a physician who will periodically review the plan of care. Time Spent With Patient Time: Total time managing care of this patient today ____ minutes.
== END 2024-11-22 14:57 | disposition home health service (06) | DRG 638 ==
LOC: HO.ED 16:22 → HO.EDOVER 17:28 → HO.S3 19:14
PROVIDERS: Internal Medicine; Nurse Practitioner Family; Physician Assistant; Admitting Provider Student in an Organized Health Care Education/Training Program; Emergency Provider Emergency Medicine; PCP Nurse Practitioner Family; Visit Provider Internal Medicine
DX: E11.69 Type 2 diabetes mellitus with other specified complication (principal); I13.0 Hypertensive heart and chronic kidney disease with heart failure and stage 1 through stage 4 chronic kidney disease, or unspecified chronic kidney disease; I50.32 Chronic diastolic (congestive) heart failure; M86.172 Other acute osteomyelitis, left ankle and foot; M00.9 Pyogenic arthritis, unspecified; N17.9 Acute kidney failure, unspecified; G47.33 Obstructive sleep apnea (adult) (pediatric); E11.621 Type 2 diabetes mellitus with foot ulcer; L97.529 Non-pressure chronic ulcer of other part of left foot with unspecified severity; E78.2 Mixed hyperlipidemia; E11.610 Type 2 diabetes mellitus with diabetic neuropathic arthropathy; N18.30 Chronic kidney disease, stage 3 unspecified; E11.22 Type 2 diabetes mellitus with diabetic chronic kidney disease; Z87.891 Personal history of nicotine dependence; Z79.4 Long term (current) use of insulin; Z79.899 Other long term (current) drug therapy
CPT/HCPCS: 36415; 36558; 72100; 73630; 80048; 80053; 80202; 81001; 82550; 82565; 82947; 83935; 84300; 85025; 85027; 85610; 85652; 85730; 86140; 86160; 87040; 93922; 93925; 93971; 99285; J0360; J0690; J0692; J0878; J1642; J1650; J1938; J2003; J2543; J3010; J3373; J3374

== ENCOUNTER → 2024-11-11 14:49 | Outpatient (BNV) | payer OTHER, SELFPAY | PROVIDERS: PCP Nurse Practitioner Family; Visit Provider Radiology Diagnostic Radiology | DX: R22.42 Localized swelling, mass and lump, left lower limb (principal) | CPT/HCPCS: 73630; 93971 ==

== ENCOUNTER 2024-11-11 17:27 | Outpatient (BNV) | payer OTHER, SELFPAY | END 2024-11-17 13:07 | PROVIDERS: Admitting Provider Student in an Organized Health Care Education/Training Program; Emergency Provider Emergency Medicine; PCP Nurse Practitioner Family; Visit Provider Radiology Diagnostic Radiology | DX: I73.9 Peripheral vascular disease, unspecified (principal) | CPT/HCPCS: 93922; 93925 ==

== ENCOUNTER 2024-11-11 17:27 | Outpatient (BNV) | payer OTHER, SELFPAY | END 2024-11-14 10:31 | PROVIDERS: Admitting Provider Student in an Organized Health Care Education/Training Program; Emergency Provider Emergency Medicine; PCP Nurse Practitioner Family; Visit Provider Radiology Diagnostic Radiology | DX: M51.35 Other intervertebral disc degeneration, thoracolumbar region (principal) | CPT/HCPCS: 72100 ==

== ENCOUNTER 2024-11-11 17:27 | Outpatient (BNV) | payer OTHER, SELFPAY | END 2024-11-18 13:44 | PROVIDERS: Admitting Provider Student in an Organized Health Care Education/Training Program; Emergency Provider Emergency Medicine; PCP Nurse Practitioner Family | DX: Z45.2 Encounter for adjustment and management of vascular access device (principal) | CPT/HCPCS: 76937; 77001 ==

== ENCOUNTER → 2024-11-11 17:27 | Outpatient (BNV) | payer OTHER, SELFPAY | PROVIDERS: Admitting Provider Student in an Organized Health Care Education/Training Program; Emergency Provider Emergency Medicine; PCP Nurse Practitioner Family; Visit Provider Student in an Organized Health Care Education/Training Program | DX: N17.9 Acute kidney failure, unspecified (principal); N18.9 Chronic kidney disease, unspecified | CPT/HCPCS: 99223; 99232; 99239; G0180 ==

== ENCOUNTER → 2024-11-11 17:27 | Outpatient (BNV) | payer OTHER, SELFPAY | PROVIDERS: Admitting Provider Student in an Organized Health Care Education/Training Program; Emergency Provider Emergency Medicine; PCP Nurse Practitioner Family; Visit Provider Nurse Practitioner Family | DX: N17.9 Acute kidney failure, unspecified (principal); N18.9 Chronic kidney disease, unspecified | CPT/HCPCS: 99222; 99232 ==

== ENCOUNTER → 2024-11-11 17:27 | Outpatient (BNV) | payer OTHER, SELFPAY | PROVIDERS: Admitting Provider Student in an Organized Health Care Education/Training Program; Emergency Provider Emergency Medicine; PCP Nurse Practitioner Family; Visit Provider Surgery Vascular Surgery | DX: I73.9 Peripheral vascular disease, unspecified (principal) | CPT/HCPCS: 99222; 99232 ==

== ENCOUNTER → 2024-11-11 17:27 | Outpatient (BNV) | payer OTHER, SELFPAY | PROVIDERS: Admitting Provider Student in an Organized Health Care Education/Training Program; Emergency Provider Emergency Medicine; PCP Nurse Practitioner Family; Visit Provider Internal Medicine | DX: M86.172 Other acute osteomyelitis, left ankle and foot (principal) | CPT/HCPCS: 99232 ==

== ENCOUNTER 2024-11-24 12:58 | Outpatient (REF) | payer OTHER, SELFPAY ==
--- OUTSIDE RECORDS SUMMARY | 2024-01-25 05:30 | XMS_ITS ---
Author Organization [facility] Address [address] [place] [address] Care Team Providers Care Ware Finisher Name Role Phone Quique Tatum N.P. Primary Care Provider Higinio Mcmahon Unavailable [phone] Velia Siddiqui Unavailable Unavailable REASON FOR VISIT screening Problems Problem Type SNOMED Code ICD Code Onset Dates Problem Status W/U Status Risk Notes Problem Diverticular disease of colon (736359414) Diverticulosis of large intestine without perforation or abscess without bleeding (K57.30) Active confirmed Encounters Encounter Location Date Provider Diagnosis [facility] [place] Outpatient [address] [place] [phone] 01/25/2024 Higinio Zhang Colon cancer scree shanthi [...] * SOO FONSECA:[birth year] (54 yo M)Acc No.[id number]:01/25/2024 COLON WITH MAC Patient: JORGE DURANT Provider: Nicanor Zhang MD :1970 A ge:53 Y S ex:Male Date:01/25/2024 Address:[address] [place] [address] , [facility] Pcp:Quiqeu Tatum N.P. Subjective: * Chief Complaints: * [...] 0 01/25/2024 Generated for Nikkie kelley/Steven/Nickransmitting on: 11/24/2024 01:07 PM EDT
[2024-11-24 14:54] LABS: Anion Gap 18 (12-20); Blood Urea Nitrogen 79 mg/dL (9-16); Carbon Dioxide 20 mmol/L (22-29); Chloride 101 mmol/L (96-108); Estimated Glomerular Filt Rate 13; Potassium 4.9 mmol/L (3.3-5.1); Sodium 134 mmol/L (135-145)
== END 2024-11-24 12:59 | disposition home or self-care (01) ==
LOC: HO.LAB 12:58
PROVIDERS: PCP Nurse Practitioner Family; Visit Provider Internal Medicine Nephrology
DX: E11.22 Type 2 diabetes mellitus with diabetic chronic kidney disease (principal); I12.9 Hypertensive chronic kidney disease with stage 1 through stage 4 chronic kidney disease, or unspecified chronic kidney disease; N18.30 Chronic kidney disease, stage 3 unspecified; D63.1 Anemia in chronic kidney disease; E11.21 Type 2 diabetes mellitus with diabetic nephropathy; E87.5 Hyperkalemia
CPT/HCPCS: 36415; 80051; 82565; 84520

== ENCOUNTER 2024-11-25 14:35 | Outpatient (AMB) | payer OTHER, SELFPAY ==
--- OUTSIDE RECORDS SUMMARY | 2024-01-25 05:30 | XMS_ITS ---
Author Organization [facility] Address [address] [place] [address] Care Team Providers Care Medical Lab Director Name Role Phone Rc Sy.Quique Bhatt Primary Care Provider Higinio Mcmahon Unavailable [phone] Velia Siddiqui Unavailable Unavailable REASON FOR VISIT screening Problems Problem Type SNOMED Code ICD Code Onset Dates Problem Status W/U Status Risk Notes Problem Diverticulosis o f large intestine without perforation or abscess without bleeding (K57.30) Active confirmed Encounters Encounter Location Date Provider Diagnosis [facility] [place] [address] [place], [place] [phone] 01/25/2024 Higinio Zhang Colon cancer scree shanthi [...] * SOO FONSECA:[birth year] (54 yo M)Acc No.[id number]:01/25/2024 COLON WITH MAC Patient: JORGE DURANT Provider: Nicanor Zhang MD :1970 A ge:53 Y S ex:Male Date:01/25/2024 Address:[address] [place] [address] , [facility] Pcp:Quique Tatum N.P. Subjective: * Chief Complaints: [...] 01/25/2024 Generated for Nikkie kelley/Steven/Felixitting on: 0 11/25/2024 02:37 PM EDT
--- NOTE | 2024-11-25 14:45 | HO.NEPHOV_ITS ---
Vital Signs 11/25/24 14:50 Height 5 ft 8 in Weight 258 lb 2 oz BMI 39.2 BP 140/60 H Blood Pressure Location Rt brachial Position Sitting Pulse 81 Pulse Source Pulse Oximeter Pulse Oximetry (%) 95 Oxygen Delivery Method Room Air Intake Visit Reasons: FU/ Conf Theatrical Scenic Designer Required: No Accompanied by: Other Relationship Allergies No Known Allergies Allergy (Verified 11/25/24 14:50) HPI Comments Details: River was seen in follow up of his EZRA on CKD . He is diabetic and hypertensive with proteinuria. He recently presented to the emergency department for left lower extremity swelling and discoloration of left toe. He noticed left foot swelling mainly left 3rd toe with redness with no associated fever or chills. He did not have any chest pain, palpitations, shortness breath, abdominal pain, changes in urinary or bowel habits at that time. In the emergency department, imaging with proximal head of 3rd digit concerning for osteomyelitis and DIP joint septic arthritis. He developed EZRA likely secondary to cytokine release from infection and altered regulation in the kidney due to diuretics and ARB use while hypoalbuminemic which caused tubular injury. He also had hemodynamic EZRA from precipitous drop in bleed pressure after IV hydralazine use for elevated BP. His ARB and Jardiance has been put on hold. He denies any active chest pain, shortness of breath, paroxysmal nocturnal dyspnea, orthopnea, joint swellings, epistaxis, sinusitis, skin rashes, history of renal artery stenosis, history of carotid stenosis, large, vomiting, diarrhea, hematuria. His serum creatinine has plateaued . He has been having edema and constipation with abdominal discomfort. [facility] Medical History CKD (chronic kidney disease) stage 3, GFR 30-59 ml/min Sleep apnea Chronic heart failure with preserved ejection fraction (HFpEF) Elevated cholesterol Iron deficiency anemia Chronic renal insufficiency Diabetic nephropathy Acute heart failure with preserved ejection fraction (HFpEF) Necrotizing subcutaneous infection Hypertension Type 2 diabetes Surgical History History of pyloromyotomy Status post incision and drainage [place] teeth removed Family History Mother Diabetes Maternal Uncle Diabetes Sister Multiple sclerosis Father Liver failure Kidney failure Social History Household Members: Significant Other and Children Both parents involved: No Caregiver staying overnight: No Housing: House Are you a primary home health care respiratory therapist to a significant other at home: No Do you presently have visiting nurse or other home services: No 75 years or older and lives alone: No Alcohol intake: current Alcohol intake frequency: holidays/special occasions only Alcohol type: beer Patient Tobacco Use Status: Former Tobacco user Tobacco use type: Cigarette Years Smoked: 4 e-Cigarette/Vaping Use: Never Used Second Hand Smoke Exposure: Yes Substance Use Type: Marijuana Advance Directives Date on File: 05/07/23 service: No Current occupational status: employed Current occupation: [employer] Current occupational exposures/hazards: No Cognitive needs: No Hearing needs: No Vision needs: No Review of Systems Const All systems reviewed & are unremarkable except as noted in HPI and below Physical Exam Vital Signs: Last Vital Signs Pulse 81 11/25/24 14:50 BP 140/60 H 11/25/24 14:50 Pulse Ox 95 11/25/24 14:50 Oxygen Delivery Method Room Air 11/25/24 14:50 BMI result Body Mass Index 39.2 Const General: comfortable and no acute distress Orientation/consciousness: patient oriented x3 HEENT Head: Yes normocephalic Mouth: Normal oral and palatal mucosa present Eyes EOM: EOMs intact bilaterally Neck Neck: Yes supple Resp Auscultation: clear to auscultation bilaterally Cardio Jugular venous distension: no JVD Rate: regular rate GI Palpation (GI): Soft to palpation Auscultation: normal bowel sounds General: Yes no CVA tenderness Back/Spine/Pelvis Back: no CVA tenderness Skin General skin exam: no rashes or lesions noted Neuro General: patient oriented x3 and moves all extremities Extrem General: Yes no pedal edema Results Reviewed Nephrology Results: Hgb, (14.0-18.0) 8.7 g/dl L 11/16/24 WBC, (4.8-10.8) 9.9 X10*3/uL 11/16/24 Plt Count, (160-400) 196 X10*3/uL 11/16/24 Sodium, (135-145) 134 mmol/L L 11/24/24 Potassium, (3.3-5.1) 4.9 mmol/L 11/24/24 Chloride, (96-108) 101 mmol/L 11/24/24 Carbon Dioxide, (22-29) 20 mmol/L L 11/24/24 BUN, (9-16) 79 mg/dL H 11/24/24 Creatinine, (0.5-1.4) 4.86 mg/dL H* 11/24/24 Calcium, (8.4-10.2) 8.3 mg/dL L 11/22/24 Urine Protein, (Neg-Trace) 300 (3+) mg/dL H 11/11/24 Renal US 06/04/23 Assessment & Plan Assessment & Plan (1) Hypertension: Code(s): I10 - Essential (primary) hypertension Category: Medical Qualifiers: Hypertension type: primary hypertension Qualified Code(s): I10 - Essential (primary) hypertension (2) CKD stage 3 due to type 2 diabetes mellitus: Code(s): E11.22 - Type 2 diabetes mellitus with diabetic chronic kidney disease; N18.30 - Chronic kidney disease, stage 3 unspecified Category: Medical (3) Diabetic nephropathy: Code(s): E11.21 - Type 2 diabetes mellitus with diabetic nephropathy Category: Medical Qualifiers: Diabetes mellitus type: type 2 Qualified Code(s): E11.21 - Type 2 diabetes mellitus with diabetic nephropathy (4) Acute kidney injury superimposed on CKD: Code(s): N17.9 - Acute kidney failure, unspecified; N18.9 - Chronic kidney disease, unspecified Category: Medical (5) Anemia in chronic kidney disease (CKD): Code(s): N18.9 - Chronic kidney disease, unspecified; D63.1 - Anemia in chronic kidney disease Category: Medical Qualifiers: Chronic kidney disease stage: stage 3 (moderate) Chronic kidney disease stage 3 subtype: stage 3a (GFR 45-59) Qualified Code(s): N18.31 - Chronic kidney disease, stage 3a; D63.1 - Anemia in chronic kidney disease Plan River has 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 He has obesity. He has underlying diabetic nephropathy. He has H/O decompensated diastolic heart failure. He developed EZRA likely secondary to cytokine release from infection and altered regulation in the kidney due to diuretics and ARB use while hypoalbuminemic which caused tubular injury. He also had hemodynamic EZRA from precipitous drop in bleed pressure after IV hydralazine use for elevated BP. His ARB and Jardiance has been put on hold. His urine output is good. He is hypervolemic. I doubled the dose of his diuretics for 5 days after which he can come down to his current regular dose. He did not have a renal biopsy yet. He does not need renal replacement now. He was counseled to maintain good blood pressure and good blood sugar control. All these have been discussed in detail. Further management is pending evolving data. All questions answered. Follow-up appointment given Orders: Orders Electrolytes 2 Weeks I10 - Essential (primary) hypertension, N17.9 - Acute kidney failure, unspecified Blood Urea Nitrogen 2 Weeks I10 - Essential (primary) hypertension, N17.9 - Acute kidney failure, unspecified Creatinine 2 Weeks I10 - Essential (primary) hypertension, N17.9 - Acute kidney failure, unspecified Coding Level of Care Code Est Pt Level 4 (58146) Diagnoses Primary hypertension I10 Hypertension type: primary hypertension CKD stage 3 due to type 2 diabetes mellitus E11.22; N18.30 Diabetic nephropathy associated with type 2 diabetes mellitus E11.21 Diabetes mellitus type: type 2 Acute kidney injury superimposed on CKD N17.9; N18.9 Anemia in stage 3a chronic kidney disease N18.31; D63.1 Chronic kidney disease stage: stage 3 (moderate) Chronic kidney disease stage 3 subtype: stage 3a (GFR 45-59)
[2024-11-25 14:50] VITALS: BP 140/60; PULSE 81; O2SAT 95; BMI 39.2
== END 2024-11-25 15:20 | disposition home or self-care (01) ==
LOC: HO.HKA 14:36
PROVIDERS: PCP Nurse Practitioner Family; Visit Provider Internal Medicine Nephrology
DX: I12.9 Hypertensive chronic kidney disease with stage 1 through stage 4 chronic kidney disease, or unspecified chronic kidney disease (principal); E11.22 Type 2 diabetes mellitus with diabetic chronic kidney disease; N18.30 Chronic kidney disease, stage 3 unspecified; E11.21 Type 2 diabetes mellitus with diabetic nephropathy; N17.9 Acute kidney failure, unspecified; N18.9 Chronic kidney disease, unspecified; N18.31 Chronic kidney disease, stage 3a; D63.1 Anemia in chronic kidney disease
CPT/HCPCS: 99214

== ENCOUNTER 2024-12-05 09:25 | Outpatient (AMB) | payer OTHER, SELFPAY ==
--- OUTSIDE RECORDS SUMMARY | 2024-01-25 05:30 | XMS_ITS ---
Author Organization [facility] Address [address] [place] [address] Care Team Providers Care Jump Roll Operator Name Role Phone Rc Sy.Quique Bhatt Primary Care Provider Higinio Mcmahon Unavailable [phone] Velia Siddiqui Unavailable Unavailable REASON FOR VISIT screening Problems Problem Type SNOMED Code ICD Code Onset Dates Problem Status W/U Status Risk Notes Problem Diverticulosis o f large intestine without perforation or abscess without bleeding (K57.30) Active confirmed Encounters Encounter Location Date Provider Diagnosis [facility] [place] [address] [place], [place] [phone] 01/25/2024 Higinio Zhang Colon cancer scree shanthi [...] * SOO FONSECA:[birth year] (54 yo M)Acc No.[id number]:01/25/2024 COLON WITH MAC Patient: JORGE DURANT Provider: Nicanor Zhang MD :1970 A ge:53 Y S ex:Male Date:01/25/2024 Address:[address] [place] [address] , [facility] Pcp:Quique Tatum N.P. Subjective: * Chief Complaints: [...] 01/25/2024 Generated for Nikkie kelley/Steven/Felixitting on: 0 12/05/2024 09:53 AM EDT
--- NOTE | 2024-12-05 09:27 | MHC.PC.OV ---
Vital Signs 12/05/24 10:11 BP 124/60 Blood Pressure Location Lt brachial Position Sitting Respiration 16 Pulse 72 Pulse Source Auscultation Temp 99.3 F Temp Source Skin Pulse Oximetry (%) 89 L Oxygen Delivery Method Room Air Intake Visit Reasons: toe infection follow up Intake Note: River presents in the office today for a follow up to a toe infection. Allergies No Known Allergies Allergy (Verified 12/05/24 10:35) Medication List - Last Reconciled 12/05/24 by Quique Tatum CNP acetaminophen 1,000 mg PO BID PRN atorvastatin 40 mg PO BEDTIME 30 days Held on 11/22/24. Instructions: Resume on 12/29/24. blood sugar diagnostic (FreeStyle Lite Strips) Test four times a day or as directed. blood-glucose meter (FreeStyle Lite Meter kit) As Directed carvedilol 25 mg See Protocol PO BID cholecalciferol (vitamin D3) 50 mcg PO BEDTIME clonidine HCl 0.2 mg PO BID 90 days comp.stocking,knee,long,medium As directed cyclobenzaprine 10 mg PO TID PRN daptomycin 650 mg IV Q48H fenofibrate 54 mg PO DAILY ferrous sulfate 325 mg PO TID fluticasone propionate 50 mcg/actuation 2 sprays intranasal BID PRN furosemide 40 mg PO BID 90 days hydralazine 50 mg See Protocol PO TID insulin glargine (Basaglar KwikPen U-100 Insulin) 12 units (0.12 mL) subcut DAILY@1700 insulin lispro (Humalog KwikPen (U-100) Insulin) Blood Sugar: <150 - 0 units 151-200 - 2 units 201-250 - 4 units 251-300 - 6 units 301-350 - 8 units >350 - 10 units isosorbide mononitrate ER 30 mg See Protocol PO DAILY lancets (FreeStyle Lancets) TEST FOUR TIMES A DAY OR DIRECTED. multivitamin 1 tab PO DAILY omega-3 fatty acids-fish oil 684-1,200 mg 1 cap PO DAILY pen needle, diabetic USE FOUR TIMES A DAY OR DIRECTED. sodium polystyrene sulfonate 30 grams PO MOWEFR zinc acetate 25 mg PO DAILY Tobacco use date assessed: 11/07/24 Dental Screening Dental Screen Date: 11/07/24 HPI HPI Comments History of Present Illness Details 54-year-old male, accompanied by his fiancee, presents for a follow-up visit for infection to left 3rd toe. He was admitted at [facility] between 11/11/2024 and 11/22/2024 for Left 3rd toe osteomyelitis with diabetic foot infection and septic arthritis. He was discharged home on daptomycin 650 mg IV every 48 hours until 01/07/2025. He has a visiting nurse who provides wound care to the 2 and administer his IV daptomycin. He notes that the last 2 days, he has been experiencing severe fatigue and weakness. He also notes associated stomach cramps and diarrhea immediately after eating. He has been feeling very sleepy in the past 2 days. His stool has been dark in color and therefore did not take ferrous sulfate since yesterday. His gait is slightly unsteady and, therefore, assessed in the room next to the front end driver instead of walking all the way to the back of assigned rooms. Recent RBC and H&H while hospitalized on 11/16/2024 were significantly low, 2.84 and 8.7/25.5 respectively. [facility] Medical History CKD (chronic kidney disease) stage 3, GFR 30-59 ml/min Sleep apnea Chronic heart failure with preserved ejection fraction (HFpEF) Elevated cholesterol Iron deficiency anemia Chronic renal insufficiency Diabetic nephropathy Acute heart failure with preserved ejection fraction (HFpEF) Necrotizing subcutaneous infection Hypertension Type 2 diabetes Surgical History History of pyloromyotomy Status post incision and drainage [place] teeth removed Family History Mother Diabetes Maternal Uncle Diabetes Sister Multiple sclerosis Father Liver failure Kidney failure Social History Household Members: Significant Other and Children Housing: House Are you a primary hiv/aids care nurse to a significant other at home: No Do you presently have visiting nurse or other home services: No Alcohol intake: current Alcohol intake frequency: holidays/special occasions only Alcohol type: beer Patient Tobacco Use Status: Former Tobacco user Tobacco use type: Cigarette Years Smoked: 4 e-Cigarette/Vaping Use: Never Used Second Hand Smoke Exposure: Yes Substance Use Type: Marijuana Advance Directives: Yes Advance Directives on File: Yes Advance Directives Date on File: 05/07/23 service: No Current occupational status: employed Current occupation: [employer] Current occupational exposures/hazards: No Cognitive needs: No Hearing needs: No Vision needs: No Questionnaire Thrive Questionnaire Date Thrive assessed: 06/13/24 I am a: Patient What is your living situation today?: I have a steady place to live Within the past 12 months, did the food you bought not last and you didn't have the money to get more?: Sometimes True Within the past 12 months, did you worry whether your food would run out before you got money to buy more?: Sometimes True Do you have trouble paying for medicines?: Yes Do you have trouble getting transportation to medical appointments?: No Do you have trouble paying your heating and electricity bill?: Yes Do you have trouble taking care of your child, family member or friend?: No Do you have trouble with day-to-day activities such as bathing, preparing meals, shopping, managing finances, etc.?: No Are you currently unemployed and looking for a job?: No Are you interested in more education?: I choose not to answer this question Currently or been in a relationship where the following occur: No concerns reported THRIVE Score: 3 UTE-7 AMB Questionnaire UTE-7 Date UTE - 7 assessed: 09/13/24 Source: Developed by Drs. Higinio Rodriguez, Olivia Rayo, Edilberto Freeman and colleagues, with an educational smitha from [employer]. Review of Systems Const Details: Const Denies chills, Reports fatigue, Denies fever(s), Denies headache(s) and Reports weakness ENT Denies dizziness and Denies headache(s) Card Denies chest pain, Denies lightheadedness, Denies dyspnea and Denies other (Palpitations) Resp Denies cough, Denies dyspnea, Denies wheezing and Denies other ( shortness of breath) GI Denies abdominal pain, Denies melena, Denies hematochezia, Reports diarrhea and dark stools, Denies dyspepsia and Denies nausea Denies hematuria and Denies dysuria Musc Denies abnormal gait, Denies myalgias, Denies arthralgias, Denies numbness and Denies tingling Skin/Breast Denies rash, Denies unusual bruising and Denies wounds Neuro Denies abnormal gait, Denies dizziness, Denies headache(s), Denies memory loss, Denies numbness, Denies Sensory deficit (Neuro), Denies tingling and Denies weakness Psych Denies anxiety, Denies depression, Denies memory loss Endo Denies cold intolerance, Reports fatigue, Denies heat intolerance, Denies polydipsia and Denies polyuria Aller/Immun Denies wheezing Physical exam (Primary Care) Vital Signs: Last Vital Signs Temp 99.3 F 12/05/24 10:11 Pulse 72 12/05/24 10:11 Resp 16 12/05/24 10:11 BP 124/60 12/05/24 10:11 Pulse Ox 89 L 12/05/24 10:11 Oxygen Delivery Method Room Air 12/05/24 10:11 Tobacco/Smoking Status: Tobacco use Status Tobacco use date assessed 11/07/24 12/05/24 09:29 Patient Tobacco Use Status Former Tobacco user 12/05/24 09:29 Tobacco use type Cigarette 12/05/24 09:29 e-Cigarette/Vaping Use Never Used 12/05/24 09:29 Thrive Assessment: Date of Thrive Assessment Date Thrive assessed 06/13/24 12/05/24 09:29 Currently or been in a relationship where the following occur: No concerns reported Const Other: General: no acute distress and well developed Nutritional Appearance: well nourished Orientation/consciousness: patient oriented x3 HENMT Head: Yes normocephalic and Yes atraumatic Eyes General: appearance normal, both eyes and all related structures Pupils: Equal, round and reactive pupils present EOM: EOMs intact bilaterally Resp Effort & Inspection: normal respiratory effort Auscultation: clear to auscultation bilaterally Cardio Rate: regular rate Rhythm: regular rhythm Heart sounds: S1 normal heart sound present, S2 normal heart sound present, no gallops, no murmurs and no rubs GI Palpation (GI): No Abdominal aortic bruit present, Soft to palpation, nontender, No hepatosplenomegaly present and No Rebound tenderness present Auscultation: normal bowel sounds General: Yes no CVA tenderness Back/Spine/Pelvis Back: no CVA tenderness Cervical Spine: cervical ROM normal and No Cervical spine tenderness Thoracic/Lumbar Spine: thoraco-lumbar ROM normal, No pain with thoraco-lumbar ROM, No thoracic spinal tenderness and No lumbar spinal tenderness Extrem General: Yes normal to inspection, No edema and No calf tenderness Skin General: warm and dry. Skin is very pale. Normal skin turgor Lesions: no lesions Rashes: no rashes Trauma: no lacerations or abrasions Wounds: left 3rd toe (not assessed) Nails: normal Neuro General: patient oriented x3, gait slightly unsteady and no focal neuro deficit Cranial nerves: Yes Equal, round and reactive pupils present Cognition (Neuro): normal cognition Gait exam (Neuro): Gait slightly unsteady Sensory Exam: No Sensory deficit (Neuro) Psych Appearance: grossly normal Affect: normal affect Attitude: cooperative Thought process: Normal thought process present Coding Level of Care Code Est Pt Level 4 (15174) Diagnoses Weakness R53.1 Fatigue R53.83 Diarrhea R19.7 Assessment & Plan Assessment & Plan (1) Weakness: Code(s): R53.1 - Weakness Category: Medical Plan: He notes that the last 2 days, he has been experiencing severe fatigue and weakness. He also notes associated stomach cramps and diarrhea immediately after eating. He has been feeling very sleepy in the past 2 days. His stool has been dark in color and therefore did not take ferrous sulfate since yesterday. His gait is slightly unsteady and, therefore, assessed in the room next to the front end driver instead of walking all the way to the back of assigned rooms. Recent RBC and H&H while hospitalized on 11/16/2024 were significantly low, 2.84 and 8.7/25.5 respectively. Patient appears pale and clammy. Lung sounds clear bilaterally. Heart regular rate and rhythm. Blood pressure normal. O2 sat 89% Low-grade fever of 99.3. BS is 280. Sent to [facility] ED via ambulance for further workup/possible sepsis. (2) Fatigue: Code(s): R53.83 - Other fatigue Category: Medical Plan: Plan as above. (3) Diarrhea: Code(s): R19.7 - Diarrhea, unspecified Category: Medical Plan: Plan as above.
[2024-12-05 10:11] VITALS: BP 124/60; PULSE 72; RESP 16; TEMP 37.4; O2SAT 89
== END 2024-12-05 10:30 | disposition left against medical advice (07) ==
LOC: HO.HMCFM 09:26
PROVIDERS: PCP Nurse Practitioner Family; Visit Provider Nurse Practitioner Family
DX: R53.1 Weakness (principal); R53.83 Other fatigue; R19.7 Diarrhea, unspecified

== ENCOUNTER 2024-12-05 10:18 | Inpatient (IN) | payer OTHER, SELFPAY ==
[2024-12-05] VITALS (22 sets, daily range): BP systolic 108–167; BP diastolic 41–86; PULSE 62–75; RESP 11–22; TEMP 36.4–37.6; O2SAT 92–99; BMI 38.3; BMI 38.5
--- NOTE | 2024-12-05 | ECG_ITS ---
Test Reason : SOB Blood Pressure : */* mmHG Vent. Rate : 72 BPM Atrial Rate : 72 BPM P-R Int : 156 ms QRS Dur : 86 ms QT Int : 412 ms P-R-T Axes : 44 23 29 degrees QTcB Int : 451 ms Normal sinus rhythm Normal ECG When compared with ECG of 14-Aug-2023 11:47, QT has lengthened Referred By: Generic ED Physician Electronically Signed By: Maxime Dixon
--- NOTE | ~2024-12-05 | CT_ITS ---
EXAMINATION: CT CHEST WITHOUT IV CONTRAST INDICATION: Pulm edema vs pneumonia COMPARISON: Correlation is made with AP portable view of the chest dated 1125. TECHNIQUE: Helical CT scan of the chest was performed without intravenous contrast. Coronal and sagittal reformatted images were generated and reviewed. This CT exam was performed with one or more of the following dose reduction techniques: automated exposure control, adjustment of the mA and/or kV according to patient size, use of iterative reconstruction technique. DLP: 520 mGy-cm CHEST: THYROID: The thyroid is unremarkable. LUNGS: There are multifocal irregular airspace opacities in all lobes of both lungs. There is an upper lung zone predominance. There are no definite thickened interlobular septae. MEDIASTINUM: There are enlarged superior mediastinal lymph nodes measuring up to 1.9 cm. Right paratracheal nodes measuring up to 2.0 cm. AP window nodes measure up to 2.9 cm. There is a 1.9 cm subcarinal lymph node. KATHRYN: Evaluation of the hilar regions is limited by lack of intravenous contrast material. CARDIOVASCULATURE: The heart is normal in size. There is no pericardial effusion. The thoracic aorta is normal in caliber. Right-sided port is seen in place. DEGREE OF CORONARY CALCIFICATION: moderate PLEURA: There are small bilateral pleural effusions, right greater than left. No pneumothorax. MAIN AIRWAYS: The mainstem bronchi and proximal branches are patent. AXILLA: There is no axillary lymphadenopathy. BONES AND SOFT TISSUES: Unremarkable UPPER ABDOMEN: The visualized portions of the liver and spleen appear enlarged. The adrenal glands have an unremarkable unenhanced appearance. CT/CT chest wo IV con IMPRESSION: 1. Multifocal irregular airspace opacities in all lobes of both lungs. The presence of mediastinal lymphadenopathy, and the lack of thickened interlobular septae or cardiomegaly would favor an infectious or inflammatory process rather than pulmonary edema. 2. Small bilateral pleural effusions, right greater than left. 3. Hepatosplenomegaly. Electronically signed by: Higinio Cortes MD 12/06/2024 07:40 AM EDT
--- NOTE | ~2024-12-05 | XR_ITS ---
EXAMINATION: XR CHEST 1 VIEW HISTORY: sob, hypoxic COMPARISON: Comparison is made with the prior examination dated 05/04/2023. FINDINGS: Two AP portable views of the chest performed at 11:43 AM are submitted. A right-sided central venous catheter is noted with its tip in the superior vena cava. There are diffuse patchy airspace opacities throughout both lungs which may represent pulmonary edema or diffuse pneumonia. There is no pneumothorax or pleural effusion. The heart is normal in size. The bones are intact. XR/XR chest 1V IMPRESSION: Diffuse patchy airspace opacities throughout both lungs, compatible with pulmonary edema or diffuse pneumonia. Electronically signed by: Higinio Cortes MD 12/05/2024 11:58 AM EDT
--- NOTE | 2024-12-05 10:39 | ED_ITS ---
HPI - SOB/Dyspnea General Chief Complaint: Dyspnea Stated Complaint: SOB,HOT TO TOUCH,SEEN RECENTLY PER EMS Time Seen by Provider: 12/05/24 10:39 Source: patient, EMS, RN notes reviewed and old records reviewed Mode of arrival: EMS Limitations: no limitations History of Present Illness ED Provider: Jerrod Oreilly PA-C HPI Narrative: 54 yo male with history of HFpEF, DM, HTN, HLD, CKD III, NANCY on CPAP with recent admission to [facility] 11/11-11/22 for left 3rd toe osteomyelitis and septic artritis, EZRA on CKD, discharged on IV daptomycin (to be completed 12/28) who presents to the ER via EMS from his PCP office for evaluation of SOB, hypoxia, generalized weakness and fatigue that have been going on for the last few days. Patient states he was seen by his cylinder machine operator on November 25. He was told to increase his Lasix 40 b.i.d. to 80 mg b.i.d. for 5 days which he completed. He states he has been losing weight at home but becoming more swollen. He has had a poor appetite and nausea. He states he has been very fatigued and weak, falling asleep on the toilet. He reports the last couple of days he has had dark bowel movements. He has been constipated. He has not on anticoagulation. He denies history of GI bleed in the past. Patient was found to be 86% on room air. He was placed on 6 L nasal cannula by EMS. Blood glucose was 383 with EMS. MD elicited complaint: shortness of breath Pertinent past history: congestive heart failure Onset (ago): day(s) Context: recent illness Timing: progressively worsening Severity: severe Exacerbating factors: exertion Relieving factors: rest Known history of: congestive heart failure and diabetes Associated symptoms: lower extremity pain, nausea/vomiting and lightheadedness Treatment prior to arrival: oxygen Related Data Home Medications ?Medication ?Instructions ?Recorded ?Confirmed multivitamin 1 tab PO DAILY 03/11/2211/25 omega-3 fatty acids-fish oil 684 1 cap PO DAILY 12/05/24 mg-1,200 mg capsule,delayed release acetaminophen 500 mg tablet 1,000 mg PO BID PRN Pain 0 11/11/24 12/05/24 cholecalciferol (vitamin D3) 50 50 mcg PO BEDTIME 10/2512/05/24 mcg (2,000 unit) capsule fluticasone propionate 50 2 spray intranasal BID PRN f or 11/11/24 12/05/24 mcg/actuation nasal allergies spray,suspension sodium polystyrene sulfonate 30 g PO MOWEFR 11/11/24 0 12/05/24 zinc acetate 25 mg (zinc) capsule 25 mg PO DAILY 11/1112/05/24 Previous Rx's ?Medication ?Instructions ?Recorded blood-glucose meter (FreeStyle #1 ea 03/11/22 Lite Meter kit) blood sugar diagnostic (FreeStyle #100 ea 07/25/22 Lite Strips) comp.stocking,knee,long,medium #12 ea 04/15/23 lancets 28 gauge (FreeStyle #100 ea 08/27/23 Lancets) ferrous sulfate 325 mg (65 mg 325 mg PO TID #270 tabs 05/16/24 iron) tablet atorvastatin 40 mg tablet 40 mg PO BEDTIME 30 days #30 tabs 09/05/24 Held on 11/22/24. Instructions: Resume on 12/29/24. fenofibrate 54 mg tablet 54 mg PO DAILY #90 tabs 08/26 11/18 pen needle, diabetic 32 gauge x #120 ea 09/26/24 cyclobenzaprine 10 mg tablet 10 mg PO TID PRN muscle s pasm #15 11/03/24 tabs furosemide 40 mg tablet 40 mg PO BID 90 days #180 ta bs 11/07/24 carvedilol 25 mg tablet 25 mg PO BID #180 tabs 11/22 daptomycin 350 mg intravenous 650 mg IV Q48H #35 ea solution hydralazine 50 mg tablet 50 mg PO TID #360 tabs 11/22 insulin glargine 100 unit/mL (3 12 unit (0.12 mL) subc ut 11/22/24 mL) subcutaneous pen (Basaglar DAILY@1700 #15 mL KwikPen U-100 Insulin) insulin lispro 100 unit/mL 0 sliding scale dose subcut 11/22/24 subcutaneous pen (Humalog KwikPen QIDACHS #15 mL (U-100) Insulin) isosorbide mononitrate 30 mg 30 mg PO DAILY #90 tabs 0 11/22/24 tablet,extended release 24 hr clonidine HCl 0.2 mg tablet 0.2 mg PO BID 90 days #180 tabs 12/05/24 Allergies Allergy/AdvReac Type Severity Reaction Status Date / Time No Known Allergies Allergy Verified 12/05/24 10:35 Review of Systems 2 Review of Systems: Yes all other systems are reviewed and are negative [facility] Past Medical History Medical History CKD (chronic kidney disease) stage 3, GFR 30-59 ml/min Sleep apnea Chronic heart failure with preserved ejection fraction (HFpEF) Elevated cholesterol Iron deficiency anemia Chronic renal insufficiency Diabetic nephropathy Acute heart failure with preserved ejection fraction (HFpEF) Necrotizing subcutaneous infection Hypertension Type 2 diabetes Surgical History History of pyloromyotomy Status post incision and drainage [place] teeth removed Family History Family History Mother Diabetes Maternal Uncle Diabetes Sister Multiple sclerosis Father Liver failure Kidney failure Social History Social History Household Members: Significant Other and Children Housing: House Are you a primary career placement services counselor to a significant other at home: No Do you presently have visiting nurse or other home services: No Alcohol intake: current Alcohol intake frequency: holidays/special occasions only Alcohol type: beer Patient Tobacco Use Status: Former Tobacco user Tobacco use type: Cigarette Years Smoked: 4 e-Cigarette/Vaping Use: Never Used Second Hand Smoke Exposure: Yes Substance Use Type: Marijuana Advance Directives: Yes Advance Directives on File: Yes Advance Directives Date on File: 05/07/23 service: No Current occupational status: employed Current occupation: [employer] Current occupational exposures/hazards: No Cognitive needs: No Hearing needs: No Vision needs: No Physical Exam 2 Exam: Exam: Appearance: Alert. Oriented X3. Appears older than stated age, pale, tachypneic with mild respiratory distress, chronically ill-appearing Head: normocephalic, atraumatic. Eyes: Pupils equal, round and reactive to light. ENT: Pharynx normal. No tonsillar swelling or exudate. Neck: Normal inspection. Neck supple. CVS: Normal heart rate and rhythm. Pulses normal. Respiratory: Mild respiratory distress with increased RR. Breath sounds crackles at the left base Abdomen: Obese, Soft and nontender. +BS x4 Skin: Skin warm and dry. Normal skin color. Normal skin turgor. No rashes. Extremities: 3+ lower extremity edema bilaterally of the lower legs. No joint swelling. Neuro/psych: Oriented X 3. No motor deficit. No sensory deficit. generalized weakness noted. CN II-XII intact. Normal speech and cognition. Vital Signs: Vital Signs: Last Vital Signs Temp 99 F 12/05/24 12:44 Pulse 69 12/05/24 12:44 Resp 20 12/05/24 12:44 BP 140/65 H 12/05/24 12:44 Pulse Ox 99 12/05/24 12:00 O2 Del Method Nasal Cannula 12/05/24 12:00 O2 Flow Rate 4 12/05/24 12:00 Oxygen Flow Rate 6 12/05/24 10:24 BMI result Body Mass Index 38.3 Medications Administered Discontinued Medications Generic Name Dose Route Start Last Admin Trade Name Freq PRN Reason Stop Dose Admin Furosemide 80 mg 12/05/24 11:49 12/05/24 12:02 Furosemide 100 Mg/10 Ml Vial IVPUSH 12/05/24 11:50 80 mg ONCE ONE Administration Protocol Cefepime HCl 1 gm/ Sodium 50 mls @ 100 mls/hr 12/05/24 12:01 12/05/24 12:40 Chloride IV 12/05/24 12:30 100 mls/hr ONCE ONE Administration Insulin Human Lispro 10 unit 12/05/24 11:54 12/05/24 12:01 Insulin Lispro 100 Unit/Ml 3 Ml Vial SUBCUT 12/05/24 11:55 10 unit ONCE ONE Administration Medical Decision Making Medical Decision Making MDM Narrative: 54 yo male with history of HFpEF, DM, HTN, HLD, CKD III, NANCY on CPAP with recent admission to [facility] [place]-11/22 for left 3rd toe osteomyelitis and septic artritis, EZRA on CKD, discharged on IV daptomycin (to be completed 12/28) who presents to the ER via EMS from his PCP office for evaluation of SOB, hypoxia, generalized weakness and fatigue that have been going on for the last few days. Patient has a new oxygen requirement, is very short of breath, pale and fatigued. Concern for acute blood loss. H and H is showing acute on chronic normocytic anemia with hemoglobin of 5.3, hematocrit of 16.1. On November 16 his H&H was 8.7/25.5. Has been reporting very dark bowel movements for the last couple of days after taking MiraLax. He is not on anticoagulation. His BUN is elevated to 104 which may be related to worsening CKD verses upper GI bleed. Baseline BUN is 50-70s. guiac negative brown stool on exam. His anemia may also be related to anemia of chronic disease given his severe CKD. SCr is stable. He was consented for blood in 2 units of PRBCs were ordered. Will give IV Lasix between units of blood given his heart failure history and shortness of breath. His BNP is significantly elevated compared to his prior at 2300. Chest x-ray with diffuse fluffy infiltrates consistent with pulmonary edema versus ARDS verses multifocal pneumonia. He is already on IV daptomycin for his osteomyelitis. Will cover for possible Hcap with a dose of cefepime. Case d/w Dr. Pike with concern he may require NIV for worsening resp status once transfused. he recommended slow transfusion and dieresis, does not require ICU level of care at this time. Will plan for admission for acute anemia requiring transfusion and acute congestive heart failure exacerbation. Hospitalist accepts Differential Diagnosis Differential Diagnoses: The differential diagnosis associated with the presentation includes Acute CHF exacerbation, pleural effusions, volume overload, anemia of chronic disease, acute blood loss anemia, GI bleed Admission/Observation Consideration of admission/observation: Escalation of care including admission/observation considered Consult Healthcare Provider Management of the patient was discussed with: Hospitalist and Crime Prevention Worker Dr. Pike ICU evaluated - no ICU Lab Data MDM Lab Attestation statement: I reviewed the patient's lab results. Acute on chronic normocytic anemia, leukocytosis Creatinine at his baseline, BUN elevated higher than baseline, concern for GI bleed, hyponatremia likely due to volume overload and heart failure. Hyperglycemia without anion gap Lactic acid is normal. Mild elevation of AST and alk-phos which may be due to daptomycin. CK is normal 12/05/24 11:00 12/05/24 11:00 Labs: Lab Results 12/05/24 12/05/24 12/05/24 Range/Units 11:00 11:08 11:31 WBC 16.2 H (4.8-10.8) X10*3/uL RBC 1.80 L D (4.60-5.80) X10*6/uL Hgb 5.3 L* D (14.0-18.0) g/dl Hct 16.1 L* D (42.0-52.0) % MCV 89.4 (80.0-98.0) fL MCH 29.4 (27.0-33.0) pg MCHC 32.9 (31.0-36.0) g/dl RDW 13.2 (11.0-16.0) % Plt Count 243 (160-400) X10*3/uL MPV 11.6 (9.4-12.4) fL Immature Gran % (Auto) 1.5 H (0.0-0.4) % Neut % (Auto) 88.9 H (45-73) % Lymph % (Auto) 3.5 L (20-40) % Mcdonough % (Auto) 3.9 (2-11) % Eos % (Auto) 2.0 (0-4) % Baso % (Auto) 0.2 (0-2) % Lymph # (Auto) 0.6 L (1.2-4.9) X10*3/uL Mcdonough # (Auto) 0.6 (0.1-1.2) X10*3/uL Eos # (Auto) 0.3 (0.0-0.4) X10*3/uL Baso # (Auto) 0.0 (0.0-0.2) X10*3/uL Abs Immat Gran (auto) 0.25 H (0.00-0.03) X10*3/uL Absolute Neuts (auto) 14.4 H (2.0-8.3) x10*3/uL Absolute Nucleated RBC 0.000 (0.0-0.012) X10*3/uL Nucleated RBC % (auto) 0.0 (0.0-0.2) /100WBC ESR > 140 H (0-15) MM/HR VBG pH 7.50 H (7.32-7.43) VBG pCO2 30 mmHg VBG pO2 101 mmHg VBG HCO3 23 (22-26) mmol/L VBG O2 Saturation TNP VBG Base Excess 0.9 mmol/L Sodium 131 L (135-145) mmol/L Potassium 4.0 (3.3-5.1) mmol/L Chloride 97 (96-108) mmol/L Carbon Dioxide 24 (22-29) mmol/L Anion Gap 14 (12-20) BUN 104 H (9-16) mg/dL Creatinine 4.18 H* (0.5-1.4) mg/dL Estim Creat Clear Calc 26.1 Estimated GFR 15 POC Glucose (60-115) mg/dL Random Glucose 313 H (60-115) mg/dL Lactic Acid 0.9 (0.5-2.0) mmol/L Calcium 8.3 L (8.4-10.2) mg/dL Magnesium 2.5 (1.6-2.6) mg/dL Total Bilirubin 0.6 (0.0-1.0) mg/dL AST 40 H (5-37) U/L ALT 27 (0-40) U/L Alkaline Phosphatase 236 H (39-117) U/L Total Creatine Kinase 171 (38-174) U/L Troponin I High Sens 30.8 D (<3.5-35.0) ng/L C-Reactive Protein 21.97 H (< or = 0.50) mg/dL B-Natriuretic Peptide 2318 H (<100) pg/mL Total Protein 7.0 (6.5-8.0) g/dL Albumin 3.0 L (3.5-5.0) g/dL Urine Color Urine Appearance Urine pH (5.0-9.0) Ur Specific Dennis (1.005-1.025) Urine Protein (Neg-Trace) mg/dL Urine Glucose (UA) (Negative) mg/dL Urine Ketones (Negative) mg/dL Urine Blood (Negative) Urine Nitrite (Negative) Ur Leukocyte Esterase (Negative) Urine RBC (0-2) /HPF Urine WBC (0-5) /HPF Ur Squamous Epith Cells (0-2) /HPF Urine Bacteria (None Seen) Hyaline Casts (0-2) /LPF Stool Occult Blood (NEGATIVE) Influenza Type A (PCR) NEGATIVE (Negative) Influenza Type B (PCR) NEGATIVE (Negative) RSV RNA Qual (PCR) NEGATIVE (Negative) SARS-CoV-2 RNA (RT-PCR) NEGATIVE (Negative) Blood Type A Positive Antibody Screen NEGATIVE Crossmatch See Detail 12/05/24 12/05/24 12/05/24 Range/Units 11:45 12:00 12:25 WBC (4.8-10.8) X10*3/uL RBC (4.60-5.80) X10*6/uL Hgb (14.0-18.0) g/dl Hct (42.0-52.0) % MCV (80.0-98.0) fL MCH (27.0-33.0) pg MCHC (31.0-36.0) g/dl RDW (11.0-16.0) % Plt Count (160-400) X10*3/uL MPV (9.4-12.4) fL Immature Gran % (Auto) (0.0-0.4) % Neut % (Auto) (45-73) % Lymph % (Auto) (20-40) % Mcdonough % (Auto) (2-11) % Eos % (Auto) (0-4) % Baso % (Auto) (0-2) % Lymph # (Auto) (1.2-4.9) X10*3/uL Mcdonough # (Auto) (0.1-1.2) X10*3/uL Eos # (Auto) (0.0-0.4) X10*3/uL Baso # (Auto) (0.0-0.2) X10*3/uL Abs Immat Gran (auto) (0.00-0.03) X10*3/uL Absolute Neuts (auto) (2.0-8.3) x10*3/uL Absolute Nucleated RBC (0.0-0.012) X10*3/uL Nucleated RBC % (auto) (0.0-0.2) /100WBC ESR (0-15) MM/HR VBG pH (7.32-7.43) VBG pCO2 mmHg VBG pO2 mmHg VBG HCO3 (22-26) mmol/L VBG O2 Saturation VBG Base Excess mmol/L Sodium (135-145) mmol/L Potassium (3.3-5.1) mmol/L Chloride (96-108) mmol/L Carbon Dioxide (22-29) mmol/L Anion Gap (12-20) BUN (9-16) mg/dL Creatinine (0.5-1.4) mg/dL Estim Creat Clear Calc Estimated GFR POC Glucose 285 H (60-115) mg/dL Random Glucose (60-115) mg/dL Lactic Acid (0.5-2.0) mmol/L Calcium (8.4-10.2) mg/dL Magnesium (1.6-2.6) mg/dL Total Bilirubin (0.0-1.0) mg/dL AST (5-37) U/L ALT (0-40) U/L Alkaline Phosphatase (39-117) U/L Total Creatine Kinase (38-174) U/L Troponin I High Sens (<3.5-35.0) ng/L C-Reactive Protein (< or = 0.50) mg/dL B-Natriuretic Peptide (<100) pg/mL Total Protein (6.5-8.0) g/dL Albumin (3.5-5.0) g/dL Urine Color Yellow Urine Appearance Clear Urine pH 5.0 (5.0-9.0) Ur Specific Dennis 1.015 (1.005-1.025) Urine Protein 100 (2+) H (Neg-Trace) mg/dL Urine Glucose (UA) Negative (Negative) mg/dL Urine Ketones Negative (Negative) mg/dL Urine Blood Negative (Negative) Urine Nitrite Negative (Negative) Ur Leukocyte Esterase Negative (Negative) Urine RBC 0-2 (0-2) /HPF Urine WBC 0-5 (0-5) /HPF Ur Squamous Epith Cells 0-2 (0-2) /HPF Urine Bacteria None Seen (None Seen) Hyaline Casts 3-5 (0-2) /LPF Stool Occult Blood NEGATIVE (NEGATIVE) Influenza Type A (PCR) (Negative) Influenza Type B (PCR) (Negative) RSV RNA Qual (PCR) (Negative) SARS-CoV-2 RNA (RT-PCR) (Negative) Blood Type Antibody Screen Crossmatch ABG Data ABG Results: Attestation ABG: I personally reviewed and interpreted this ABG as follows: Interpretation: respiratory alkalosis Independent Interpretation I performed an independent interpretation of an: EKG and Plain X-Ray Interpretation: EKG with normal sinus rhythm, ventricular rate 72 beats per minute, no ST segment elevations or depressions CXR with diffuse patchy bilateral infiltrates c/w diffuse pulmonary edema versus multifocal pneumonia versus ARDS Radiology Impression Discussion of test interpretation with radiology: I have reviewed the radiologist's reading. Independent Historian Clinical information obtained from an independent historian. History obtained from or confirmed by: EMS External Record Review External record reviewed: Inpatient record, Prior outpatient labs and Prior outpatient radiology Tests considered The following testing was considered but not selected: LE dopplers considered, can be done inpatient if warranted, LE edema more likely due to CHF/volume overload Prescription Management I considered prescription management with: Antibiotic and Other (diuretic ) Chronic Conditions Patient?s care impacted by: Diabetes, Hypertension and Other (CKF, CHF) Critical Care Time Critical Care Time Critical Care Time: Yes Total Critical Care Time: 55 Attestation: I have personally provided critical care time exclusive of time spent on separately billable procedures. Time includes review of lab data, radiology results, discussion with consultants, and monitoring for potential decompensation. Intervention performed as documented. Discharge Plan Discharge Clinical Impression: Acute on chronic anemia, Acute respiratory failure with hypoxia Acute exacerbation of congestive heart failure Qualifiers: Heart failure type: unspecified Qualified Code(s): I50.9 - Heart failure, unspecified Patient Disposition: Admitted As Inpatient
[2024-12-05 11:10] LABS: MANUAL DIFF FLAG NO
[2024-12-05 11:13] LABS: Imm Gran Abs Auto 0.25 X10*3/uL (0.00-0.03); Imm Gran Pct Auto 1.5 % (0.0-0.4); Lymphocytes Absolute Auto 0.6 X10*3/uL (1.2-4.9); Mean Corpuscular HGB Conc 32.9 g/dl (31.0-36.0); Mean Corpuscular Hemoglobin 29.4 pg (27.0-33.0); Mean Corpuscular Volume 89.4 fL (80.0-98.0); NRBC Abs Auto 0.000 X10*3/uL (0.0-0.012); NRBC Pct Auto 0.0 /100WBC (0.0-0.2); Platelet Count 243 X10*3/uL (160-400); Red Blood Count 1.80 X10*6/uL (4.60-5.80); White Blood Count 16.2 X10*3/uL (4.8-10.8)
[2024-12-05 11:15] LABS: VBG HCO3 23 mmol/L (22-26)
[2024-12-05 11:15] LABS: Venous Blood Gas Refer to POC result
[2024-12-05 11:22] LABS: Hematocrit 16.1 % (42.0-52.0); Hemoglobin 5.3 g/dl (14.0-18.0)
[2024-12-05 11:38] LABS: B Type Natriuretic Peptide 2318 pg/mL (<100)
[2024-12-05 11:39] LABS: Troponin-I High Sensitivity 30.8 ng/L (<3.5-35.0)
[2024-12-05 11:47] LABS: Alanine Aminotransferase 27 U/L (0-40); Albumin Level 3.0 g/dL (3.5-5.0); Alkaline Phosphatase 236 U/L (39-117); Anion Gap 14 (12-20); Aspartate Amino Transferase 40 U/L (5-37); Blood Urea Nitrogen 104 mg/dL (9-16); Calcium 8.3 mg/dL (8.4-10.2); Carbon Dioxide 24 mmol/L (22-29); Chloride 97 mmol/L (96-108); Magnesium 2.5 mg/dL (1.6-2.6); Potassium 4.0 mmol/L (3.3-5.1); Sodium 131 mmol/L (135-145); Total Protein 7.0 g/dL (6.5-8.0)
[2024-12-05 11:50] LABS: Creatinine Clr Calc Pharmacy 26.1; Estimated Glomerular Filt Rate 15
[2024-12-05 11:53] LABS: Resp Syncy Virus RNA Qual PCR NEGATIVE (Negative); SARS COV2 PCR INHOUSE NEGATIVE (Negative)
[2024-12-05 11:57] LABS: OBS Int Ctl Valid YES; OBS1 NEGATIVE (NEGATIVE)
[2024-12-05] MEDS: Furosemide 100 MG/10 ML VIAL 80 MG IVPUSH (12:02)
[2024-12-05 12:04] LABS: Glucose, Whole Blood 285 mg/dL (60-115)
[2024-12-05 12:32] LABS: Appearance Urine Clear; Glucose Urine UA Negative (Negative); PH 5.0 (5.0-9.0); Specific Gravity - Urine 1.015 (1.005-1.025); UMIC TRIGGER UACC YES
--- NOTE | 2024-12-05 12:51 | PM.IMHP ---
History of Present Illness Date of Service: 12/05/24 Attending physician on admission: Bennie Roach Chief Complaint: SOB Pt is a 54-year-old male with a PMH significant for?HFpEF, insulin-dependent type 2 diabetes, HLD, HTN, CKD 3, NANCY, and hx of osteo on daptomycin who presents to the ED from PCP clinic with severe SOB and difficulty breathing x2 days. Pt was recently discharged from the hospital on 11/22 after being admitted for osteomyelitis of left 3rd toe, currently on daptomycin IV every other day with end day of 12/28/2024. Pt reports he has had significant SOB, difficulty breathing, and lower leg swelling for the past few days. Pt has difficulty walking even short distances or completing daily tasks. Pt feels lightheaded and dizzy, tired, weak, and drowsy; reports falling asleep even when using the bathroom. No reported fever, but constantly has felt cold. Earlier in the week doubled his Lasix per his PCP's recommendation, though symptoms persisted. Initially what disease PCP earlier today who then sent him to the ED for further evaluation. Pt also states he has had abdominal pain for the past several days, though currently resolved. Has had dark black stool the past week or so; stopped taking iron supplementation a few days ago and reports abd felt better since then. Denies cough. In the ED pt was tachypneic to 22 and hypoxic as low as 86% on RA. Labs were significant for leukocytosis 16.2, H&H 5.3/16.1, ESR >140, sodium 131 creatinine 4.18, AST 40, alk-phos 236, CRP 21.97, BNP 2318. Stool negative for occult blood. UA negative. Tested negative for flu, RSV, and COVID. CXR showed diffuse patchy airspace opacities throughout both lungs, compatible with pulmonary edema or diffuse pneumonia. EKG demonstrated normal sinus rhythm without evidence of significant ST elevations or depressions. Pt was treated in the ED with insulin lispro 10 units, cefepime, furosemide 80 mg IV, and transfused 2 units PRBCs. Pt is admitted to the hospital for treatment and further evaluation of acute hypoxic respiratory failure in the setting of CHF exacerbation and acute on chronic anemia requiring transfusion. Review of Systems Review of Systems: Negative except for that which is stated in the HPI. [facility] Medical History CKD (chronic kidney disease) stage 3, GFR 30-59 ml/min Sleep apnea Chronic heart failure with preserved ejection fraction (HFpEF) Elevated cholesterol Iron deficiency anemia Chronic renal insufficiency Diabetic nephropathy Acute heart failure with preserved ejection fraction (HFpEF) Necrotizing subcutaneous infection Hypertension Type 2 diabetes Family History Mother Diabetes Maternal Uncle Diabetes Sister Multiple sclerosis Father Liver failure Kidney failure Surgical History History of pyloromyotomy Status post incision and drainage [place] teeth removed Social History Household Members: Significant Other and Children Housing: House Are you a primary care coordinator to a significant other at home: No Do you presently have visiting nurse or other home services: No Alcohol intake: current Alcohol intake frequency: holidays/special occasions only Alcohol type: beer Patient Tobacco Use Status: Former Tobacco user Tobacco use type: Cigarette Years Smoked: 4 e-Cigarette/Vaping Use: Never Used Second Hand Smoke Exposure: Yes Substance Use Type: Marijuana Advance Directives: Yes Advance Directives on File: Yes Advance Directives Date on File: 05/07/23 service: No Current occupational status: employed Current occupation: [employer] Current occupational exposures/hazards: No Cognitive needs: No Hearing needs: No Vision needs: No Meds Allergies Allergy/AdvReac Type Severity Reaction Status Date / Time No Known Allergies Allergy Verified 12/05/24 10:35 Home Medications ?Medication ?Instructions ?Recorded ?Confirmed ?Last Taken ?Type multivitamin 1 tab PO DAILY 03/11/22 12/05/24 11/11/24 History omega-3 fatty acids-fish oil 684 1 cap PO DAILY 01/21/24 12/05/24 11/11/24 History mg-1,200 mg capsule,delayed release acetaminophen 500 mg tablet 1,000 mg PO BID PRN Pain 11/11/24 12/05/24 Unknown History cholecalciferol (vitamin D3) 50 50 mcg PO BEDTIME 11/11/24 12/05/24 11/10/24 History mcg (2,000 unit) capsule fluticasone propionate 50 2 spray intranasal BID PRN for 11/11/24 12/05/24 Unknown History mcg/actuation nasal allergies spray,suspension sodium polystyrene sulfonate 30 g PO QWEEK 11/11/24 12/05/24 11/09/24 History zinc acetate 25 mg (zinc) capsule 25 mg PO DAILY 11/11/24 12/05/24 11/11/24 History insulin lispro 100 unit/mL See Protocol subcut QIDACHS 12/05/24 Unknown History subcutaneous pen (Humalog KwikPen (U-100) Insulin) Physical Exam Vital Signs and Narrative: Vital Signs: Last Vital Signs Temp 99 F 12/05/24 12:44 Pulse 69 12/05/24 12:44 Resp 20 12/05/24 12:44 BP 140/65 H 12/05/24 12:44 Pulse Ox 99 12/05/24 12:00 O2 Del Method Nasal Cannula 12/05/24 12:00 O2 Flow Rate 4 12/05/24 12:00 Oxygen Flow Rate 6 12/05/24 10:24 BMI result Body Mass Index 38.3 General: AOx3, looks uncomfortable, diaphoretic Resp: Bilateral crackles. Some increased work of breathing though speaking in complete sentences. CVS: S1, S2, RRR GI: +BS, NT, no distention, soft Skin: Warm, dry Neuro: Cranial nerves II-XII grossly intact bilaterally. Motor grossly intact bilaterally Extremities: 3+ bilateral pitting edema in lower extremities and ankle. Left foot wrapped in clean bandages. Psych: Appropriate affect Results Labs 12/05/24 11:00 12/05/24 11:00 Labs: Laboratory Results - last 24 hr 12/05/24 12/05/24 12/05/24 11:00 11:08 11:31 MCV 89.4 MCH 29.4 MCHC 32.9 RDW 13.2 Plt Count 243 MPV 11.6 Immature Gran % (Auto) 1.5 H Neut % (Auto) 88.9 H Lymph % (Auto) 3.5 L [place] % (Auto) 3.9 Eos % (Auto) 2.0 Baso % (Auto) 0.2 Lymph # (Auto) 0.6 L [place] # (Auto) 0.6 Eos # (Auto) 0.3 Baso # (Auto) 0.0 Abs Immat Gran (auto) 0.25 H Absolute Neuts (auto) 14.4 H Absolute Nucleated RBC 0.000 Nucleated RBC % (auto) 0.0 ESR > 140 H VBG pH 7.50 H VBG pCO2 30 VBG pO2 101 VBG HCO3 23 VBG O2 Saturation TNP VBG Base Excess 0.9 Anion Gap 14 Estim Creat Clear Calc 26.1 Estimated GFR 15 POC Glucose Random Glucose 313 H Lactic Acid 0.9 Calcium 8.3 L Magnesium 2.5 Total Bilirubin 0.6 AST 40 H ALT 27 Alkaline Phosphatase 236 H Total Creatine Kinase 171 C-Reactive Protein 21.97 H B-Natriuretic Peptide 2318 H Total Protein 7.0 Albumin 3.0 L Urine Color Urine Appearance Urine pH Ur Specific [place] Urine Protein Urine Glucose (UA) Urine Ketones Urine Blood Urine Nitrite Ur Leukocyte Esterase Urine RBC Urine WBC Ur Squamous Epith Cells Urine Bacteria Hyaline Casts Stool Occult Blood Influenza Type A (PCR) NEGATIVE Influenza Type B (PCR) NEGATIVE RSV RNA Qual (PCR) NEGATIVE SARS-CoV-2 RNA (RT-PCR) NEGATIVE Blood Type A Positive Antibody Screen NEGATIVE Crossmatch See Detail 12/05/24 12/05/24 12/05/24 11:45 12:00 12:25 MCV MCH MCHC RDW Plt Count MPV Immature Gran % (Auto) Neut % (Auto) Lymph % (Auto) [place] % (Auto) Eos % (Auto) Baso % (Auto) Lymph # (Auto) [place] # (Auto) Eos # (Auto) Baso # (Auto) Abs Immat Gran (auto) Absolute Neuts (auto) Absolute Nucleated RBC Nucleated RBC % (auto) ESR VBG pH VBG pCO2 VBG pO2 VBG HCO3 VBG O2 Saturation VBG Base Excess Anion Gap Estim Creat Clear Calc Estimated GFR POC Glucose 285 H Random Glucose Lactic Acid Calcium Magnesium Total Bilirubin AST ALT Alkaline Phosphatase Total Creatine Kinase C-Reactive Protein B-Natriuretic Peptide Total Protein Albumin Urine Color Yellow Urine Appearance Clear Urine pH 5.0 Ur Specific [place] 1.015 Urine Protein 100 (2+) H Urine Glucose (UA) Negative Urine Ketones Negative Urine Blood Negative Urine Nitrite Negative Ur Leukocyte Esterase Negative Urine RBC 0-2 Urine WBC 0-5 Ur Squamous Epith Cells 0-2 Urine Bacteria None Seen Hyaline Casts 3-5 Stool Occult Blood NEGATIVE Influenza Type A (PCR) Influenza Type B (PCR) RSV RNA Qual (PCR) SARS-CoV-2 RNA (RT-PCR) Blood Type Antibody Screen Crossmatch Imaging Radiologist's Impressions: Impressions Chest X-Ray 12/05/24 10:42 IMPRESSION: Diffuse patchy airspace opacities throughout both lungs, compatible with pulmonary edema or diffuse pneumonia. Electronically signed by: Higinio Cortes MD 12/05/2024 11:58 AM EDT RP Assessment and Plan (1) Acute exacerbation of congestive heart failure: Qualifiers: Heart failure type: unspecified Qualified Code(s): I50.9 - Heart failure, unspecified Status: Acute (2) Acute on chronic anemia: Status: Acute Plan Pt is a 54-year-old male with a PMH significant for?HFpEF, insulin-dependent type 2 diabetes, HLD, HTN, CKD 3, NANCY, and hx of osteo on daptomycin who presents to the ED from PCP clinic with severe SOB and difficulty breathing x2 days. Pt is admitted to the hospital for treatment and further evaluation of acute hypoxic respiratory failure in the setting of CHF exacerbation and acute on chronic anemia requiring transfusion. Acute on chronic anemia of chronic disease H&H 5.3/16.1; previous 8.7/25.5 Pt reports dark black stools, but on iron supplementation; stool negative for occult blood Possibly secondary to worsening CKD3/anemia of chronic disease over the past month Pt transfused 2 units PRBCs in the ED; Lasix 40mg in between Nephrology consult Monitor H&H Acute hypoxic respiratory failure in the setting of HFpEF exacerbation Pt with severe SOB, SORTO, edema, hypoxia of 86% on RA, CXR with pulmonary edema, BNP elevated Will treat with Lasix 80 mg b.i.d. Monitor BMP, BNP, I/O Repeat echocardiogram Low-salt diet Monitor on telemetry Titrate supplemental O2 >92, wean as tolerated Question of pneumonia CXR showing pulmonary edema vs diffuse pneumonia Denies cough, no fever Meets SIRS with tachypnea and leukocytosis; lactic acid WNL Continue empiric cefepime for now, day [address] of chest to evaluate for pneumonia, MRSA nasal swab, procalcitonin Hx of osteomyelitis left foot 5th digit Currently be treated with daptomycin every other day, end date 12/28/2024 Continue dapto HLD Hold statin while on dapto HTN Continue home antihypertensives as BP allows Insulin-dependent type 2 diabetes Sliding-scale insulin, Lantus, diabetic diet NANCY CPAP at night Full Code Attending:?Dr. Roach DVT Prophylaxis: Pneumatic compression due to acute anemia Pt will require a hospitalization of at least two nights for treatment of?acute hypoxic respiratory failure in the setting of CHF exacerbation and acute on chronic anemia requiring transfusion. Pt will require hospital level care for administration of supplemental oxygen, IV diuretics, IV antibiotics, and close monitoring of labs and cardiac and status.. Quality Stroke Does the patient have a stroke diagnosis?: No VTE Prior VTE?: No VTE Risk Level:: Medical - moderate - high VTE Device Contraindication: N/A - Device Ordered VTE Drug Contraindication: Treatment Not Indicated
--- NOTE | 2024-12-05 12:54 | PC.NURSE ---
Pt arrives via EMS for SOB and BLE pitting edema. Recent hospitalization for CHF exacerbation. Obvious SOB with increased work of breathing. EMS reports %86spO2 on RA. 4LNC. Diminished breath sounds throughout with keya lower lobe crackles. NSR on the monitor. Denies CP. Denies abdominal pain/n/v. Denies urinary s/sx. Pt is pale/diaphoretic. CBG 383 per EMS. Rt july IJ single lumen catheter was placed a week ago for LTA for osteo of left foot. Receiving dapto OPAT. Pt placed on monitor. Plan of care ongoing.
--- NOTE | 2024-12-05 14:16 | PC.NURSE ---
Uriel Larkin (Sister) [phone] & Licha Levine (Mother) [phone]. Requesting any update's on patient per patient approval.
--- NOTE | 2024-12-05 14:58 | PHA.MEDREC ---
Pharmacy Consult ? Medication Reconciliation Pharmacy has completed the medication reconciliation. Spoke with pt and he confirmed he was just here 11/11-11/22 and stated his Carvediolol was increased from 12.5mg to 25mg, he started a Daptomycin IV Q48H; pt LT 12/04 and is suppose to stop ~12/27-12/28, he started taking Hydralazing, Humalog Kwikpen and Isosorbide, his Jardiance, Metformin and Valsartan were stopped and his Atorvastatin was put on hold until ~12/29 (until he finishes the Daptomycin IV).
--- NOTE | 2024-12-05 15:00 | CA_ITS ---
Transthoracic Echocardiogram Patient (Last, First, Middle): River Luque L Gender: Male Date of : 1970 Age: 54 Procedure Date: 12/05/2024 Procedure Type: Transthoracic Echocardiogram Location: ER Height: 175.26 cm Weight: 117.48 kg BSA: 2.31 m2 Heart Rate: bpm BP: 108 / 41 mmHg Package Dye Stand Loader: Referring MD: Suresh SKELTON Symptoms: CHF exacerbation Study Quality: Adequate ECG Rhythm: Sinus Conclusions: - Normal left ventricular size and systolic function. There is mildly increased left ventricular wall thickness. The visually estimated ejection fraction is between 55-60%. - E/E prime ratio is between 8 and 15 consistent with indeterminate filling pressures. - Mildly increased right ventricular cavity size. There is normal right ventricular systolic function. - The left atrium is moderately dilated. The right atrium is moderately dilated. - Significantly elevated right atrial pressure. There is no evidence of pulmonary hypertension. Findings Left Ventricle Normal left ventricular size and systolic function. There is mildly increased left ventricular wall thickness. The visually estimated ejection fraction is between 55-60%. There is no evidence of regional wall motion abnormalities. Abnormal diastolic function is noted. Spectral Doppler is indicative of a pseudonormal filling pattern. E/E prime ratio is between 8 and 15 consistent with indeterminate filling pressures. Right Ventricle Mildly increased right ventricular cavity size. There is normal right ventricular systolic function. Atria The left atrium is moderately dilated. The right atrium is moderately dilated. Aortic Valve Normal aortic valve structure and function. There is no aortic valve stenosis. There is no aortic valve regurgitation. Mitral Valve The mitral valve appears normal. There is no mitral valve regurgitation. There is no mitral valve stenosis. Pulmonic Valve The pulmonic valve is normal. There is no pulmonic valve regurgitation. Tricuspid Valve Normal tricuspid valve structure. There is trace tricuspid valve regurgitation. The right ventricular systolic pressure is 22 mmHg. Significantly elevated right atrial pressure. There is no evidence of pulmonary hypertension. Great Vessels All visible segments of the aorta are normal in size. The visualized portions of the pulmonary artery and branches are normal. Venous The inferior vena cava is dilated and collapses less than 50% with inspiration. Pericardium/Pleural There is no evidence of pericardial effusion. Prior Study Comparison Changes noted compared to prior study dated: 03/23/2024. Mildly increased RV size, significant elevation of RA pressure. Measurements 2D Linear Measurements IVSd: 1.20 0.6-0.9/0.6-1.0 cm LVIDd: 5.13 3.9-5.3/4.2-5.9 cm LVIDd Index: 2.22 2.4-3.2/2.2-3.1 cm/m2 LVIDs: 3.64 2.0-3.6 cm LVPWd: 1.28 0.7-1.1 cm Ao Root: 2.80 2.1-3.5 cm LA Diam: 4.70 2.7-3.8/3.0-4.0 cm LAIDs Index: 2.03 1.5-2.3 cm/m2 LV Mass: 317.93 67-162/88-224 g LV Mass Index: 137.63 43-95/49-115 g/m2 LVOT Diam: 2.30 3.0+(-)1.3 cm 2D Systolic Function EF 4C: 69.10 >55% EF 2C: 66.90 >55% EF BiP: 65.30 >55% Mitral Valve MV Pk E: 0.98 MV PK A: 0.56 MV Decel Time: 142.00 E/A: 1.70 E'Lateral: 11.70 E'Medial: 6.64 E/E' Med: 14.70 E/E' Lat: 8.40 PHT: 42.00 MVA PHT: 5.24 Decel [place]: 6.88 Aortic Valve AoV Pk Harsh: 1.74 AoV Mn Harsh: 1.11 AoV VTI: 0.37 AoV Pk Grad: 12.00 Aov Mn Grad: 6.00 AISHWARYA Cont.VTI: 2.72 LVOT LVOT Pk Harsh: 1.08 LVOT Mn Harsh: 0.68 LVOT VTI: 0.24 LVOT Pk Grad: 5.00 LVOT Mn Grad: 2.00 LVOT Diam: 2.30 LVOT Area: 4.15 Diastolic Function MV Pk E: 0.98 MV Pk A: 0.56 E/A: 1.70 E'Medial: 6.64 E/E' Med: 14.70 E' Laterial: 11.70 E/E' Lat: 8.40 Right Ventricle TAPSE (mm): 25.00 TVS' Harsh: 14.00 Tricuspid Valve TR Pk Harsh: 2.17 TR Pk Grad: 19.00 RA Press: 3.00 RVSP: 22.00 Great Vessels Aorta Ao Root-2D: 2.80 2.0-3.7 cm Ao Asc: 3.30 2.1-3.4 cm Pulmonary Valve PV Pk Harsh: 0.75 Peak PV Grad: 2.00 Updated in Other Vendor System with Status of Final Maxime Dixon MD electronically signed on 12/06/2024 2:17:48 PM with status of Final
--- NOTE | 2024-12-05 15:07 | PHA.MEDREC ---
Addendum entered by Leeroy Youssef RPh 12/05/24 15:17: MED REC REVIEWED BY [facility]. Suresh Dawson was notified that per patient, his atorvastatin is on hold until he finishes the daptomycin course. Original Note: Pharmacy Consult ? Medication Reconciliation Pharmacy has completed the medication reconciliation. Spoke with pt and he confirmed he was just here 11/11-11/22 and stated his Carvediolol was increased from 12.5mg to 25mg, he started a Daptomycin IV Q48H; pt LT 12/04 and is suppose to stop ~12/27-12/28, he started taking Hydralazing, Humalog Kwikpen and Isosorbide, his Jardiance, Metformin and Valsartan were stopped and his Atorvastatin was put on hold until ~12/29 (until he finishes the Daptomycin IV). Pt confirmed the Sodium Polystyrene is taken 30g MOWEFR instead of once weekly as written in claims.
[2024-12-05 15:11] LABS: Procalcitonin 0.88 ng/mL
--- NOTE | 2024-12-05 15:30 | PM.CNNEP ---
History of Present Illness Reason for Consult Consult date: 12/05/24 Chief Complaint Chief complaint: CHF History of Present Illness Narrative: 54 y/o male with CKD3- diabetic and hypertensive kidney disease with proteinuria, DMII, HTN, HLD, HFpEF, NANCY, obesity. Hx osteomyelitis, on daptomycin through 12/28/24. Presented 12/05 with severe shortness of breath x2 days. Nephrology consulted for CKD, here with anemia and CHD. Pt is followed by Dr Hernandez as outpatient. patient reports a few days of dyspnea, worsening, PCP sent him to ED. He had been taking his regular medications. H&H is 5.3 & 16.1, down from 8.7 & 25.5 on 11/16/24. Platelets are normal. Stool occult blood negative. UA +protein, no blood or other cells. patient has significant BLE swelling and is diaphoretic. vitals are stable. he is receiving 2 units of pRBCs, 80mg IVP lasix prior, 40mg IVP lasix in between each unit of blood. creatinine is fairly stable, 4.18 (was 4.86 on 11/24). he is making urine - 200mL just recently voided. He denies chest pain, abdominal pain. Reports some back pain from stretcher he is in. Denies other concerns/symptoms. States continued shortness of breath, fatigue. Review of Systems Constitutional: Reports fatigue, Reports malaise and Reports weakness Cardiovascular: Denies chest pain, Reports leg edema, Denies lightheadedness, Reports dyspnea and Reports orthopnea Respiratory: Denies cough and Reports dyspnea Gastrointestinal: Denies abdominal pain, Denies diarrhea, Denies nausea and Denies vomiting Genitourinary: Reports no additional male genitourinary complaints Musculoskeletal: Reports back pain Skin/Breast: Denies rash Reports weakness Endocrine: Reports fatigue PMF Past Medical History Medical History CKD (chronic kidney disease) stage 3, GFR 30-59 ml/min Sleep apnea Chronic heart failure with preserved ejection fraction (HFpEF) Elevated cholesterol Iron deficiency anemia Chronic renal insufficiency Diabetic nephropathy Acute heart failure with preserved ejection fraction (HFpEF) Necrotizing subcutaneous infection Hypertension Type 2 diabetes Family History Family History Mother Diabetes Maternal Uncle Diabetes Sister Multiple sclerosis Father Liver failure Kidney failure Surgical History Surgical History History of pyloromyotomy Status post incision and drainage [place] teeth removed Social History Social History Household Members: Significant Other and Children Housing: House Are you a primary patient care technician instructor to a significant other at home: No Do you presently have visiting nurse or other home services: No Alcohol intake: current Alcohol intake frequency: holidays/special occasions only Alcohol type: beer Patient Tobacco Use Status: Former Tobacco user Tobacco use type: Cigarette Years Smoked: 4 e-Cigarette/Vaping Use: Never Used Second Hand Smoke Exposure: Yes Substance Use Type: Marijuana Advance Directives: Yes Advance Directives on File: Yes Advance Directives Date on File: 05/07/23 service: No Current occupational status: employed Current occupation: [employer] Current occupational exposures/hazards: No Cognitive needs: No Hearing needs: No Vision needs: No Meds Allergies Allergy/AdvReac Type Severity Reaction Status Date / Time No Known Allergies Allergy Verified 12/05/24 10:35 Active Medications: Current Medications Acetaminophen (Acetaminophen 325 Mg Tablet) 650 mg PO Q6H PRN PRN Reason: Pain, Mild 1-3,fever,headache Calcium Carbonate (Calcium Carbonate 750 Mg Tab.Chew) 750 mg PO Q4H PRN PRN Reason: Heartburn Cyclobenzaprine HCl (Cyclobenzaprine Hcl 10 Mg Tablet) 10 mg PO TID PRN PRN Reason: Muscle Spasm Daptomycin (Daptomycin 350 Mg/7 Ml Vial) 650 mg IV Q48H [facility]ICHOLAS Dextrose (Dextrose 50 % 25 Gm/50 Ml Syringe) 25 gm IVPUSH Q15M PRN; Protocol PRN Reason: per Hypoglycemia Standing Ord. Fenofibrate (Fenofibrate 54 Mg Tablet) 54 mg PO DAILY [facility]OL[facility] Fluticasone Propionate (Fluticasone Propionate Nasal 16 Gm [place]) 2 spray NOSTRIL-B BID PRN PRN Reason: for allergies Furosemide (Furosemide 40 Mg/4 Ml Vial) 80 mg IVPUSH BID@0900,1800 NICHOLAS; Protocol Glucose (Glucose Gel 15 Gm Gel..Gram.) 15 gm PO Q15M PRN; Protocol PRN Reason: per Hypoglycemia Standing Ord. Cefepime HCl 1 gm/ Sodium (Chloride) 50 mls @ 100 mls/hr IV Q12H [facility] Insulin Glargine (Insulin Glargine,Hum.Rec.Anlog 100 Unit/Ml 10 Ml Vial) 12 unit SUBCUT DAILY@1700 [facility] Insulin Human Lispro (Insulin Lispro 100 Unit/Ml 3 Ml Vial) 0 unit SUBCUT QIDACHS [facility]; Protocol Isosorbide Mononitrate (Isosorbide Mononitrate 30 Mg Tab.Er.24h) 30 mg PO DAILY [facility]; Protocol Magnesium Hydroxide (Milk Of Magnesia 30 Ml Oral.Susp) 30 ml PO DAILY PRN PRN Reason: Constipation Melatonin (Melatonin 3 Mg Tablet) 6 mg PO BEDTIME PRN PRN Reason: Insomnia Multivitamins/Vitamin C (Multivitamin Tablet) 1 tab PO DAILY [facility] Ondansetron HCl (Ondansetron Hcl 4 Mg/2 Ml Vial) 4 mg IVPUSH Q8H PRN PRN Reason: Nausea and Vomiting Sodium Chloride (0.9 % Sodium Chloride Flush 3 Ml Syringe) 3 ml IVFLUSH QSHIFT [facility] Vitamin D (Cholecalciferol (Vitamin D3) 25 Mcg Tablet) 50 mcg PO BEDTIME [facility] Home Medications ?Medication ?Instructions ?Recorded ?Confirmed ?Last Taken ?Type multivitamin 1 tab PO DAILY 03/11/22 12/05/24 12/05/24 History omega-3 fatty acids-fish oil 684 1 cap PO DAILY 01/21/24 12/05/24 12/05/24 History mg-1,200 mg capsule,delayed release acetaminophen 500 mg tablet 1,000 mg PO BID PRN Pain 11/11/24 12/05/24 Unknown History cholecalciferol (vitamin D3) 50 50 mcg PO BEDTIME 11/11/24 12/05/24 12/04/24 History mcg (2,000 unit) capsule fluticasone propionate 50 2 spray intranasal BID PRN for 11/11/24 12/05/24 Unknown History mcg/actuation nasal allergies spray,suspension sodium polystyrene sulfonate 30 g PO MOWEFR 11/11/24 12/05/24 12/03/24 History zinc acetate 25 mg (zinc) capsule 25 mg PO DAILY 11/11/24 12/05/24 12/05/24 History insulin lispro 100 unit/mL See Protocol subcut QIDACHS 12/05/24 12/05/24 12/04/24 History subcutaneous pen (Humalog KwikPen (U-100) Insulin) Physical Exam Vital Signs: Last Vital Signs Temp 99.0 F 12/05/24 14:03 Pulse 69 12/05/24 14:03 Resp 15 12/05/24 14:03 BP 127/55 L 12/05/24 14:03 Pulse Ox 99 12/05/24 14:03 O2 Del Method Nasal Cannula 12/05/24 14:03 O2 Flow Rate 4 12/05/24 14:03 Oxygen Flow Rate 6 12/05/24 10:24 BMI result Body Mass Index 38.3 Const General: awake and in distress (labored breathing) mild; No alert Resp Effort & Inspection: labored Auscultation: crackles Cardio Rate: regular rate Rhythm: regular rhythm Heart sounds: S1 normal heart sound present and S2 normal heart sound present GI Palpation (GI): Soft to palpation and nontender General: Yes no CVA tenderness Back/Spine/Pelvis Back: no CVA tenderness Skin Rashes: no rashes Extrem General: Yes edema (+3 BLE edema, pitting.) and Yes pedal edema Results Lab Results 12/05/24 11:00 12/05/24 11:00 Lab results: Chemistry 12/05/24 11:00 Sodium 131 L Potassium 4.0 Carbon Dioxide 24 BUN 104 H Creatinine 4.18 H* Calcium 8.3 L Hematology 12/05/24 11:00 WBC 16.2 H Hgb 5.3 L* D Plt Count 243 Urinalysis 12/05/24 12:25 Urine Color Yellow Urine Appearance Clear Urine pH 5.0 Ur Specific [place] 1.015 Urine Protein 100 (2+) H Urine Glucose (UA) Negative Urine Ketones Negative Urine Blood Negative Urine Nitrite Negative Ur Leukocyte Esterase Negative Urine RBC 0-2 Urine WBC 0-5 Ur Squamous Epith Cells 0-2 Hyaline Casts 3-5 Assessment and Plan (1) CKD stage 3 due to type 2 diabetes mellitus: Status: Acute (2) Acute anemia: Status: Acute (3) Acute exacerbation of congestive heart failure: Qualifiers: Heart failure type: unspecified Qualified Code(s): I50.9 - Heart failure, unspecified Status: Acute Plan CHF exacerbation and acute anemia in setting of advanced CKD. renal function is stable. recommend 80mg IVP lasix BID for management of fluid overload as needs higher dose of diuretics to allow for response given renal impairment recommend blood transfusions as ordered recommend workup for acute bleed, CKD is unlikely to explain drop in H&H given hemoglobin dropped by more than three points in less than three weeks hyponatremia- likely hypervolemic related to reduced circulating volume in CHF exacerbation- diuresis as above avoid nephrotoxins daily electrolyte and renal function studies regular blood pressure checks, close I&O monitoring continue supportive care Discussed with Dr Read Procedures Date of Service Date of Service: 12/05/24
[2024-12-05] MEDS: Furosemide 40 MG/4 ML VIAL IVPUSH (16:04)
[2024-12-05 16:33] LABS: Glucose, Whole Blood 145 mg/dL (60-115)
[2024-12-05 18:25] LABS: Glucose, Whole Blood 155 mg/dL (60-115)
[2024-12-05] MEDS: Insulin Glargine,Hum.rec.anlog 100 UNIT/ML 10 ML VIAL 12 UNIT SUBCUT (18:30)
[2024-12-05 21:23] LABS: Glucose, Whole Blood 177 mg/dL (60-115)
[2024-12-06 03:25] VITALS: BP 143/72; PULSE 65; RESP 18; TEMP 36.1; O2SAT 97
[2024-12-06 06:50] LABS: Hematocrit 21.6 % (42.0-52.0); Hemoglobin 7.3 g/dl (14.0-18.0); Mean Corpuscular HGB Conc 33.8 g/dl (31.0-36.0); Mean Corpuscular Hemoglobin 29.7 pg (27.0-33.0); Mean Corpuscular Volume 87.8 fL (80.0-98.0); NRBC Abs Auto 0.000 X10*3/uL (0.0-0.012); NRBC Pct Auto 0.0 /100WBC (0.0-0.2); Platelet Count 287 X10*3/uL (160-400); Red Blood Count 2.46 X10*6/uL (4.60-5.80); White Blood Count 16.1 X10*3/uL (4.8-10.8)
[2024-12-06 07:17] LABS: Glucose, Whole Blood 159 mg/dL (60-115)
[2024-12-06 07:18] LABS: Anion Gap 17 (12-20); Blood Urea Nitrogen 103 mg/dL (9-16); Calcium 8.6 mg/dL (8.4-10.2); Carbon Dioxide 21 mmol/L (22-29); Chloride 99 mmol/L (96-108); Creatinine Clr Calc Pharmacy 26.7; Estimated Glomerular Filt Rate 15; Potassium 4.3 mmol/L (3.3-5.1); Sodium 133 mmol/L (135-145)
[2024-12-06 07:20] LABS: B Type Natriuretic Peptide 2523 pg/mL (<100)
[2024-12-06 07:26] VITALS: BP 164/72; PULSE 76; RESP 20; TEMP 36.3; O2SAT 96
[2024-12-06] MEDS: Furosemide 40 MG/4 ML VIAL 80 MG IVPUSH ×2 (08:17→17:45)
[2024-12-06] MEDS: 0.9 % Sodium Chloride Flush 3 ML SYRINGE IVFLUSH ×2 (08:18→16:30)
--- NOTE | 2024-12-06 09:17 | P.PNNP_ITS ---
Subjective Subjective Date of Service: 12/06/24 Interval history: Here for fluid overload/CHF exacerbation, acute anemia requiring blood transfusion. renal function remains fairly stable within baseline. patient remains short of breath with significant LE swelling. hemoglobin improved 2 points with transfusions. patient states he is ok. He is short of breath, and has some back pain. Otherwise no complaints. Denies pain. Denies urinary symptoms- made over 2L of uirne yesterday. Physical Exam 2 Vital Signs: Vital Signs: Last Vital Signs Temp 97.4 F 12/06/24 07:26 Pulse 76 12/06/24 07:26 Resp 20 12/06/24 07:26 BP 164/72 H 12/06/24 07:26 Pulse Ox 96 12/06/24 07:26 O2 Del Method Nasal Cannula 12/06/24 07:26 O2 Flow Rate 2.5 12/06/24 07:26 Oxygen Flow Rate 6 12/05/24 10:24 BMI result Body Mass Index 38.5 Const: General: no acute distress and awake; No alert Resp: Effort & Inspection: labored Auscultation: crackles Cardio: Rate: regular rate Rhythm: regular rhythm Heart sounds: S1 normal heart sound present and S2 normal heart sound present GI: Palpation (GI): Soft to palpation and nontender : General: Yes no CVA tenderness Back/Spine/Pelvis: Back: no CVA tenderness Skin: Rashes: no rashes Extrem: General: Yes edema (+3 BLE edema, pitting.) and Yes pedal edema Objective Data Labs 12/06/24 06:37 12/06/24 06:37 Labs: Laboratory Results - last 24 hr 12/05/24 12/05/24 12/05/24 11:00 11:08 11:31 WBC 16.2 H RBC 1.80 L D Hgb 5.3 L* D Hct 16.1 L* D MCV 89.4 MCH 29.4 MCHC 32.9 RDW 13.2 Plt Count 243 MPV 11.6 Immature Gran % (Auto) 1.5 H Neut % (Auto) 88.9 H Lymph % (Auto) 3.5 L [place] % (Auto) 3.9 Eos % (Auto) 2.0 Baso % (Auto) 0.2 Lymph # (Auto) 0.6 L [place] # (Auto) 0.6 Eos # (Auto) 0.3 Baso # (Auto) 0.0 Abs Immat Gran (auto) 0.25 H Absolute Neuts (auto) 14.4 H Absolute Nucleated RBC 0.000 Nucleated RBC % (auto) 0.0 ESR > 140 H VBG pH 7.50 H VBG pCO2 30 VBG pO2 101 VBG HCO3 23 VBG O2 Saturation TNP VBG Base Excess 0.9 Sodium 131 L Potassium 4.0 Chloride 97 Carbon Dioxide 24 Anion Gap 14 BUN 104 H Creatinine 4.18 H* Estim Creat Clear Calc 26.1 Estimated GFR 15 POC Glucose Random Glucose 313 H Lactic Acid 0.9 Calcium 8.3 L Magnesium 2.5 Total Bilirubin 0.6 AST 40 H ALT 27 Alkaline Phosphatase 236 H Total Creatine Kinase 171 Troponin I High Sens 30.8 D C-Reactive Protein 21.97 H B-Natriuretic Peptide 2318 H Total Protein 7.0 Albumin 3.0 L Procalcitonin 0.88 Urine Color Urine Appearance Urine pH Ur Specific [place] Urine Protein Urine Glucose (UA) Urine Ketones Urine Blood Urine Nitrite Ur Leukocyte Esterase Urine RBC Urine WBC Ur Squamous Epith Cells Urine Bacteria Hyaline Casts Stool Occult Blood Influenza Type A (PCR) NEGATIVE Influenza Type B (PCR) NEGATIVE RSV RNA Qual (PCR) NEGATIVE SARS-CoV-2 RNA (RT-PCR) NEGATIVE Blood Type A Positive Antibody Screen NEGATIVE Crossmatch See Detail 12/05/24 12/05/24 12/05/24 11:45 12:00 12:25 WBC RBC Hgb Hct MCV MCH MCHC RDW Plt Count MPV Immature Gran % (Auto) Neut % (Auto) Lymph % (Auto) [place] % (Auto) Eos % (Auto) Baso % (Auto) Lymph # (Auto) [place] # (Auto) Eos # (Auto) Baso # (Auto) Abs Immat Gran (auto) Absolute Neuts (auto) Absolute Nucleated RBC Nucleated RBC % (auto) ESR VBG pH VBG pCO2 VBG pO2 VBG HCO3 VBG O2 Saturation VBG Base Excess Sodium Potassium Chloride Carbon Dioxide Anion Gap BUN Creatinine Estim Creat Clear Calc Estimated GFR POC Glucose 285 H Random Glucose Lactic Acid Calcium Magnesium Total Bilirubin AST ALT Alkaline Phosphatase Total Creatine Kinase Troponin I High Sens C-Reactive Protein B-Natriuretic Peptide Total Protein Albumin Procalcitonin Urine Color Yellow Urine Appearance Clear Urine pH 5.0 Ur Specific [place] 1.015 Urine Protein 100 (2+) H Urine Glucose (UA) Negative Urine Ketones Negative Urine Blood Negative Urine Nitrite Negative Ur Leukocyte Esterase Negative Urine RBC 0-2 Urine WBC 0-5 Ur Squamous Epith Cells 0-2 Urine Bacteria None Seen Hyaline Casts 3-5 Stool Occult Blood NEGATIVE Influenza Type A (PCR) Influenza Type B (PCR) RSV RNA Qual (PCR) SARS-CoV-2 RNA (RT-PCR) Blood Type Antibody Screen Crossmatch 12/05/24 12/05/24 12/05/24 16:25 18:21 21:05 WBC RBC Hgb Hct MCV MCH MCHC RDW Plt Count MPV Immature Gran % (Auto) Neut % (Auto) Lymph % (Auto) [place] % (Auto) Eos % (Auto) Baso % (Auto) Lymph # (Auto) [place] # (Auto) Eos # (Auto) Baso # (Auto) Abs Immat Gran (auto) Absolute Neuts (auto) Absolute Nucleated RBC Nucleated RBC % (auto) ESR VBG pH VBG pCO2 VBG pO2 VBG HCO3 VBG O2 Saturation VBG Base Excess Sodium Potassium Chloride Carbon Dioxide Anion Gap BUN Creatinine Estim Creat Clear Calc Estimated GFR POC Glucose 145 H 155 H 177 H Random Glucose Lactic Acid Calcium Magnesium Total Bilirubin AST ALT Alkaline Phosphatase Total Creatine Kinase Troponin I High Sens C-Reactive Protein B-Natriuretic Peptide Total Protein Albumin Procalcitonin Urine Color Urine Appearance Urine pH Ur Specific [place] Urine Protein Urine Glucose (UA) Urine Ketones Urine Blood Urine Nitrite Ur Leukocyte Esterase Urine RBC Urine WBC Ur Squamous Epith Cells Urine Bacteria Hyaline Casts Stool Occult Blood Influenza Type A (PCR) Influenza Type B (PCR) RSV RNA Qual (PCR) SARS-CoV-2 RNA (RT-PCR) Blood Type Antibody Screen Crossmatch 12/06/24 12/06/24 06:37 07:07 WBC 16.1 H RBC 2.46 L D Hgb 7.3 L D Hct 21.6 L D MCV 87.8 MCH 29.7 MCHC 33.8 RDW 13.9 Plt Count 287 MPV 11.8 Immature Gran % (Auto) Neut % (Auto) Lymph % (Auto) [place] % (Auto) Eos % (Auto) Baso % (Auto) Lymph # (Auto) [place] # (Auto) Eos # (Auto) Baso # (Auto) Abs Immat Gran (auto) Absolute Neuts (auto) Absolute Nucleated RBC 0.000 Nucleated RBC % (auto) 0.0 ESR VBG pH VBG pCO2 VBG pO2 VBG HCO3 VBG O2 Saturation VBG Base Excess Sodium 133 L Potassium 4.3 Chloride 99 Carbon Dioxide 21 L Anion Gap 17 BUN 103 H Creatinine 4.10 H* Estim Creat Clear Calc 26.7 Estimated GFR 15 POC Glucose 159 H Random Glucose 166 H Lactic Acid Calcium 8.6 Magnesium Total Bilirubin AST ALT Alkaline Phosphatase Total Creatine Kinase Troponin I High Sens C-Reactive Protein B-Natriuretic Peptide 2523 H Total Protein Albumin Procalcitonin Urine Color Urine Appearance Urine pH Ur Specific [place] Urine Protein Urine Glucose (UA) Urine Ketones Urine Blood Urine Nitrite Ur Leukocyte Esterase Urine RBC Urine WBC Ur Squamous Epith Cells Urine Bacteria Hyaline Casts Stool Occult Blood Influenza Type A (PCR) Influenza Type B (PCR) RSV RNA Qual (PCR) SARS-CoV-2 RNA (RT-PCR) Blood Type Antibody Screen Crossmatch Procedures Date of Service Date of Service: 12/06/24 Assessment & Plan Assessment and plan (1) Acute kidney injury superimposed on CKD: Status: Acute Plan CHF exacerbation and acute anemia in setting of advanced CKD. renal function is stable. recommend continuing 80mg IVP lasix BID for management of fluid overload as needs higher dose of diuretics to allow for response given renal impairment. Goal to maintain negative fluid balance. recommend blood transfusions as ordered recommend workup for acute bleed, CKD is unlikely to explain drop in H&H given hemoglobin dropped by more than three points in less than three weeks hyponatremia- likely hypervolemic related to reduced circulating volume in CHF exacerbation- diuresis as above avoid nephrotoxins daily electrolyte and renal function studies regular blood pressure checks, close I&O monitoring continue supportive care Discussed with Dr Read Time Spent With Patient Time: Total time managing care of this patient today ____ minutes. Progress Note: Quality Stroke Does the patient have a stroke diagnosis?: No
[2024-12-06 09:56] LABS: MRSA Nasal PCR NEGATIVE (Negative); SA Nasal PCR NEGATIVE (Negative)
[2024-12-06 11:23] LABS: Glucose, Whole Blood 274 mg/dL (60-115)
[2024-12-06 11:24] VITALS: BP 144/72; PULSE 73; RESP 20; TEMP 36.3; O2SAT 96
--- NOTE | 2024-12-06 12:05 | P.PNIM_ITS ---
Subjective Subjective Date of Service: 12/06/24 Interval History: Feeling better though continued SOB No significant pain No acute events overnight Review of Systems Review of Systems: Yes all other systems are reviewed and are negative Physical Exam 2 Exam: Exam: General: AOx3, looks uncomfortable Resp: CTA bilaterally. increased work of brathing, speaking in 2-3 word sentences CVS: S1, S2, RRR GI: +BS, NT, no distention Skin: Warm, dry Neuro: Cranial nerves II-XII grossly intact bilaterally. Motor grossly intact bilaterally Extremities: 2+ bilateral pitting edema Psych: Appropriate affect Vital Signs: Vital Signs: Last Vital Signs Temp 97.3 F 12/06/24 11:24 Pulse 73 12/06/24 11:24 Resp 20 12/06/24 11:24 BP 144/72 H 12/06/24 11:24 Pulse Ox 96 12/06/24 11:24 O2 Del Method Nasal Cannula 12/06/24 11:24 O2 Flow Rate 3 12/06/24 11:24 Oxygen Flow Rate 6 12/05/24 10:24 BMI result Body Mass Index 38.5 Objective Data Active Medications Acetaminophen (Acetaminophen 325 Mg Tablet) 650 mg PO Q6H PRN PRN Reason: Pain, Mild 1-3,fever,headache Last Admin: 12/06/24 06:33 Dose: 650 mg Documented By: ABNER Calcium Carbonate (Calcium Carbonate 750 Mg Tab.Chew) 750 mg PO Q4H PRN PRN Reason: Heartburn Cyclobenzaprine HCl (Cyclobenzaprine Hcl 10 Mg Tablet) 10 mg PO TID PRN PRN Reason: Muscle Spasm Dextrose (Dextrose 50 % 25 Gm/50 Ml Syringe) 25 gm IVPUSH Q15M PRN; Protocol PRN Reason: per Hypoglycemia Standing Ord. Fenofibrate (Fenofibrate 54 Mg Tablet) 54 mg PO DAILY [facility] Last Admin: 12/06/24 08:17 Dose: 54 mg Documented By: DEANDRA Fluticasone Propionate (Fluticasone Propionate Nasal 16 Gm [place]) 2 spray NOSTRIL-B BID PRN PRN Reason: for allergies Furosemide (Furosemide 40 Mg/4 Ml Vial) 80 mg IVPUSH BID@0900,1800 [facility]; Protocol Last Admin: 12/06/24 08:17 Dose: 80 mg Documented By: DEANDRA Glucose (Glucose Gel 15 Gm Gel..Gram.) 15 gm PO Q15M PRN; Protocol PRN Reason: per Hypoglycemia Standing Ord. Cefepime HCl 1 gm/ Sodium (Chloride) 50 mls @ 100 mls/hr IV Q12H [facility] Last Infusion: 12/06/24 02:00 Dose: Infused Documented By: ABNER Daptomycin 650 mg/ Sodium (Chloride) 63 mls @ 126 mls/hr IV Q48H [facility] Last Infusion: 12/06/24 10:29 Dose: Infused Documented By: DEANDRA Insulin Glargine (Insulin Glargine,Hum.Rec.Anlog 100 Unit/Ml 10 Ml Vial) 12 unit SUBCUT DAILY@1700 [facility] Last Admin: 12/05/24 18:30 Dose: 12 unit Documented By: DARIELA Insulin Human Lispro (Insulin Lispro 100 Unit/Ml 3 Ml Vial) 0 unit SUBCUT QIDACHS [facility]; Protocol Last Admin: 12/06/24 11:36 Dose: 6 unit Documented By: DEANDRA Isosorbide Mononitrate (Isosorbide Mononitrate 30 Mg Tab.Er.24h) 30 mg PO DAILY [facility]; Protocol Last Admin: 12/06/24 08:18 Dose: 30 mg Documented By: DEANDRA Magnesium Hydroxide (Milk Of Magnesia 30 Ml Oral.Susp) 30 ml PO DAILY PRN PRN Reason: Constipation Melatonin (Melatonin 3 Mg Tablet) 6 mg PO BEDTIME PRN PRN Reason: Insomnia Multivitamins/Vitamin C (Multivitamin Tablet) 1 tab PO DAILY [facility] Last Admin: 12/06/24 08:18 Dose: 1 tab Documented By: DEANDRA Ondansetron HCl (Ondansetron Hcl 4 Mg/2 Ml Vial) 4 mg IVPUSH Q8H PRN PRN Reason: Nausea and Vomiting Sodium Chloride (0.9 % Sodium Chloride Flush 3 Ml Syringe) 3 ml IVFLUSH QSHIFT [facility] Last Admin: 12/06/24 08:18 Dose: 3 ml Documented By: DEANDRA Vitamin D (Cholecalciferol (Vitamin D3) 25 Mcg Tablet) 50 mcg PO BEDTIME [facility] Last Admin: 12/05/24 22:10 Dose: 50 mcg Documented By: KEVON Labs 12/06/24 06:37 12/06/24 06:37 Labs: Laboratory Results - last 24 hr 12/05/24 12/05/24 12/05/24 11:00 11:31 12:25 MCV MCH MCHC RDW Plt Count MPV Absolute Nucleated RBC Nucleated RBC % (auto) Smear Path Review SEE NOTE Anion Gap Estim Creat Clear Calc Estimated GFR POC Glucose Random Glucose Calcium B-Natriuretic Peptide Procalcitonin 0.88 Urine Color Yellow Urine Appearance Clear Urine pH 5.0 Ur Specific [place] 1.015 Urine Protein 100 (2+) H Urine Glucose (UA) Negative Urine Ketones Negative Urine Blood Negative Urine Nitrite Negative Ur Leukocyte Esterase Negative Urine RBC 0-2 Urine WBC 0-5 Ur Squamous Epith Cells 0-2 Urine Bacteria None Seen Hyaline Casts 3-5 Nasal Screen MRSA (PCR) Nasal S. aureus Screen Nasal MRSA/S.aureus Interp Blood Type A Positive Antibody Screen NEGATIVE Crossmatch See Detail 12/05/24 12/05/24 12/05/24 15:28 16:25 18:21 MCV MCH MCHC RDW Plt Count MPV Absolute Nucleated RBC Nucleated RBC % (auto) Smear Path Review Anion Gap Estim Creat Clear Calc Estimated GFR POC Glucose 145 H 155 H Random Glucose Calcium B-Natriuretic Peptide Procalcitonin Urine Color Urine Appearance Urine pH Ur Specific [place] Urine Protein Urine Glucose (UA) Urine Ketones Urine Blood Urine Nitrite Ur Leukocyte Esterase Urine RBC Urine WBC Ur Squamous Epith Cells Urine Bacteria Hyaline Casts Nasal Screen MRSA (PCR) NEGATIVE Nasal S. aureus Screen NEGATIVE Nasal MRSA/S.aureus Interp SEE NOTE Blood Type Antibody Screen Crossmatch 12/05/24 12/06/24 12/06/24 21:05 06:37 07:07 MCV 87.8 MCH 29.7 MCHC 33.8 RDW 13.9 Plt Count 287 MPV 11.8 Absolute Nucleated RBC 0.000 Nucleated RBC % (auto) 0.0 Smear Path Review Anion Gap 17 Estim Creat Clear Calc 26.7 Estimated GFR 15 POC Glucose 177 H 159 H Random Glucose 166 H Calcium 8.6 B-Natriuretic Peptide 2523 H Procalcitonin Urine Color Urine Appearance Urine pH Ur Specific [place] Urine Protein Urine Glucose (UA) Urine Ketones Urine Blood Urine Nitrite Ur Leukocyte Esterase Urine RBC Urine WBC Ur Squamous Epith Cells Urine Bacteria Hyaline Casts Nasal Screen MRSA (PCR) Nasal S. aureus Screen Nasal MRSA/S.aureus Interp Blood Type Antibody Screen Crossmatch 12/06/24 11:19 MCV MCH MCHC RDW Plt Count MPV Absolute Nucleated RBC Nucleated RBC % (auto) Smear Path Review Anion Gap Estim Creat Clear Calc Estimated GFR POC Glucose 274 H Random Glucose Calcium B-Natriuretic Peptide Procalcitonin Urine Color Urine Appearance Urine pH Ur Specific [place] Urine Protein Urine Glucose (UA) Urine Ketones Urine Blood Urine Nitrite Ur Leukocyte Esterase Urine RBC Urine WBC Ur Squamous Epith Cells Urine Bacteria Hyaline Casts Nasal Screen MRSA (PCR) Nasal S. aureus Screen Nasal MRSA/S.aureus Interp Blood Type Antibody Screen Crossmatch Assessment and Plan (1) Acute exacerbation of congestive heart failure: Status: Acute Plan Pt is a 54-year-old male with a PMH significant for?HFpEF, insulin-dependent type 2 diabetes, HLD, HTN, CKD 3, NANCY, and hx of osteo on daptomycin who presents to the ED from PCP clinic with severe SOB and difficulty breathing x2 days. Pt is admitted to the hospital for treatment and further evaluation of acute hypoxic respiratory failure in the setting of CHF exacerbation and acute on chronic anemia requiring transfusion. Acute on chronic anemia of chronic disease H&H 5.3/16.1; previous 8.7/25.5 Pt reports dark black stools, but on iron supplementation; stool negative for occult blood x2 Possibly secondary to worsening CKD3/anemia of chronic disease over the past month Pt transfused 2 units PRBCs in the ED with good response Monitor H&H Acute hypoxic respiratory failure in the setting of HFpEF exacerbation Pt with severe SOB, SORTO, edema, hypoxia of 86% on RA, CXR with pulmonary edema, BNP elevated Continue Lasix 80 mg b.i.d. per nephrology Monitor BMP, BNP, I/O Low-salt diet Monitor on telemetry Titrate supplemental O2 >92, wean as tolerated Repeat echo showed: Conclusions: - Normal left ventricular size and systolic function. There is mildly increased left ventricular wall thickness. The visually estimated ejection fraction is between 55-60%. - E/E prime ratio is between 8 and 15 consistent with indeterminate filling pressures. - Mildly increased right ventricular cavity size. There is normal right ventricular systolic function. - The left atrium is moderately dilated. The right atrium is moderately dilated. - Significantly elevated right atrial pressure. There is no evidence of pulmonary hypertension. Question of pneumonia CXR showing pulmonary edema vs diffuse pneumonia Denies cough, no fever Meets SIRS with tachypnea and leukocytosis; lactic acid WNL Continue empiric cefepime for now, day 2 CT of chest showed multifocal irregular airspace opacities in all lobes of both lungs Pulmonary consult recommends continued diuresing as pattern appears more edema than infectious MRSA nasal swab negative, procalcitonin 0.88 Hx of osteomyelitis left foot 5th digit Currently be treated with daptomycin every other day, end date 12/28/2024 Continue dapto HLD Hold statin while on dapto HTN Continue home antihypertensives as BP allows Insulin-dependent type 2 diabetes Sliding-scale insulin, Lantus, diabetic diet NANCY CPAP at night Full Code DVT Prophylaxis: Pneumatic compression due to acute anemia Pt will requires continued hospitalization for IV diuresing for hypoxia in the setting of CHF exacerbation. Quality Stroke Does the patient have a stroke diagnosis?: No VTE Prior VTE?: No VTE Risk Level:: Medical - moderate - high VTE Device Contraindication: N/A - Device Ordered VTE Drug Contraindication: Treatment Not Indicated
--- NOTE | 2024-12-06 12:37 | P.CONPL_ITS ---
History of Present Illness History of Present Illness Consult date: 12/06/24 Chief complaint: Hypoxia, abnormal CT chest Narrative: 54-year-old gentleman with underlying diastolic dysfunction, obesity, NANCY on CPAP, diabetes mellitus, CKD, hypertension, and osteomyelitis admitted on 12/05/2024 with slowly worsening dyspnea over several days and started on empiric diuresis with some improvement. His CT chest demonstrated multifocal infiltrates with peribronchovascular predominance and pulmonary evaluation was requested. Patient denies productive cough or fevers, but does complain of orthopnea and lower extremity edema. Review of Systems 2 Constitutional: Constitutional: Denies daytime sleepiness, Denies excessive sweating, Denies fatigue, Denies fever(s), Denies lethargy, Denies malaise, Denies night sweats, Denies snoring and Denies weight loss Eyes: Eyes: Denies blurry vision and Denies itchy eyes ENT: Denies nasal congestion, Denies post nasal drip, Denies sinus pain, Denies sinus pressure and Denies other ( Thrush) Cardiovascular: Cardiovascular: Denies chest pain, Reports pedal edema, Reports dyspnea, Reports dyspnea on exertion, Reports orthopnea and Denies paroxysmal nocturnal dyspnea Respiratory: Respiratory: Denies cough, Denies hemoptysis, Denies excessive phlegm production, Reports dyspnea, Reports dyspnea on exertion, Denies snoring and Denies wheezing Gastrointestinal: Gastrointestinal: Denies abdominal pain and Denies heartburn Musculoskeletal: Musculoskeletal: Denies myalgias, Denies arthralgias and Denies joint swelling Integumentary/Breasts: Skin/Breast: Denies rash Neurologic: Denies memory loss and Denies seizure-like activity Psychiatric: Psychiatric: Denies abnormal sleep pattern, Denies anxiety and Denies memory loss Endocrine: Endocrine: Denies excessive sweating, Denies fatigue and Denies heat intolerance Hematologic/Lymphatic: Hematologic/Lymphatic: Denies easy bruising Allergic/Immunologic: Allergic/Immunologic: Denies itchy eyes, Denies seasonal rhinorrhea and Denies wheezing PMFSH Past Medical History Medical History CKD (chronic kidney disease) stage 3, GFR 30-59 ml/min Sleep apnea Chronic heart failure with preserved ejection fraction (HFpEF) Elevated cholesterol Iron deficiency anemia Chronic renal insufficiency Diabetic nephropathy Acute heart failure with preserved ejection fraction (HFpEF) Necrotizing subcutaneous infection Hypertension Type 2 diabetes Family History Family History Mother Diabetes Maternal Uncle Diabetes Sister Multiple sclerosis Father Liver failure Kidney failure Surgical History Surgical History History of pyloromyotomy Status post incision and drainage [place] teeth removed Social History Social History Household Members: Significant Other and Children Both parents involved: No Caregiver staying overnight: No Housing: House Are you a primary careers adviser to a significant other at home: No Do you presently have visiting nurse or other home services: Yes 75 years or older and lives alone: No Alcohol intake: current Alcohol intake frequency: holidays/special occasions only Alcohol type: beer Patient Tobacco Use Status: Former Tobacco user Tobacco use type: Cigarette Years Smoked: 4 e-Cigarette/Vaping Use: Never Used Second Hand Smoke Exposure: No Substance Use Type: Marijuana Advance Directives Date on File: 05/07/23 service: No Current occupational status: employed Current occupation: [employer] Current occupational exposures/hazards: No Cognitive needs: No Hearing needs: No Vision needs: No Meds Allergies Allergy/AdvReac Type Severity Reaction Status Date / Time No Known Allergies Allergy Verified 12/05/24 10:35 Active Medications: Current Medications Acetaminophen (Acetaminophen 325 Mg Tablet) 650 mg PO Q6H PRN PRN Reason: Pain, Mild 1-3,fever,headache Last Admin: 12/06/24 06:33 Dose: 650 mg Calcium Carbonate (Calcium Carbonate 750 Mg Tab.Chew) 750 mg PO Q4H PRN PRN Reason: Heartburn Cyclobenzaprine HCl (Cyclobenzaprine Hcl 10 Mg Tablet) 10 mg PO TID PRN PRN Reason: Muscle Spasm Dextrose (Dextrose 50 % 25 Gm/50 Ml Syringe) 25 gm IVPUSH Q15M PRN; Protocol PRN Reason: per Hypoglycemia Standing Ord. Fenofibrate (Fenofibrate 54 Mg Tablet) 54 mg PO DAILY [facility] Last Admin: 12/06/24 08:17 Dose: 54 mg Fluticasone Propionate (Fluticasone Propionate Nasal 16 Gm [place]) 2 spray NOSTRIL-B BID PRN PRN Reason: for allergies Furosemide (Furosemide 40 Mg/4 Ml Vial) 80 mg IVPUSH BID@0900,1800 [facility]; Protocol Last Admin: 12/06/24 08:17 Dose: 80 mg Glucose (Glucose Gel 15 Gm Gel..Gram.) 15 gm PO Q15M PRN; Protocol PRN Reason: per Hypoglycemia Standing Ord. Cefepime HCl 1 gm/ Sodium (Chloride) 50 mls @ 100 mls/hr IV Q12H [facility] Last Admin: 12/06/24 12:13 Dose: 100 mls/hr Daptomycin 650 mg/ Sodium (Chloride) 63 mls @ 126 mls/hr IV Q48H [facility] Last Infusion: 12/06/24 10:29 Dose: Infused Insulin Glargine (Insulin Glargine,Hum.Rec.Anlog 100 Unit/Ml 10 Ml Vial) 12 unit SUBCUT DAILY@1700 [facility] Last Admin: 12/05/24 18:30 Dose: 12 unit Insulin Human Lispro (Insulin Lispro 100 Unit/Ml 3 Ml Vial) 0 unit SUBCUT QIDACHS [facility]; Protocol Last Admin: 12/06/24 11:36 Dose: 6 unit Isosorbide Mononitrate (Isosorbide Mononitrate 30 Mg Tab.Er.24h) 30 mg PO DAILY [facility]; Protocol Last Admin: 12/06/24 08:18 Dose: 30 mg Magnesium Hydroxide (Milk Of Magnesia 30 Ml Oral.Susp) 30 ml PO DAILY PRN PRN Reason: Constipation Melatonin (Melatonin 3 Mg Tablet) 6 mg PO BEDTIME PRN PRN Reason: Insomnia Multivitamins/Vitamin C (Multivitamin Tablet) 1 tab PO DAILY [facility] Last Admin: 12/06/24 08:18 Dose: 1 tab Ondansetron HCl (Ondansetron Hcl 4 Mg/2 Ml Vial) 4 mg IVPUSH Q8H PRN PRN Reason: Nausea and Vomiting Sodium Chloride (0.9 % Sodium Chloride Flush 3 Ml Syringe) 3 ml IVFLUSH QSHIFT [facility] Last Admin: 12/06/24 08:18 Dose: 3 ml Vitamin D (Cholecalciferol (Vitamin D3) 25 Mcg Tablet) 50 mcg PO BEDTIME [facility] Last Admin: 12/05/24 22:10 Dose: 50 mcg Home Medications ?Medication ?Instructions ?Recorded ?Confirmed ?Last Taken ?Type multivitamin 1 tab PO DAILY 03/11/2211/2512/05/24 History omega-3 fatty acids-fish oil 684 1 cap PO DAILY 12/05/24 12/05/24 History mg-1,200 mg capsule,delayed release acetaminophen 500 mg tablet 1,000 mg PO BID PRN Pain 0 11/11/24 12/05/24 Unknown History cholecalciferol (vitamin D3) 50 50 mcg PO BEDTIME 10/2512/05/24 12/04/24 History mcg (2,000 unit) capsule fluticasone propionate 50 2 spray intranasal BID PRN f or 11/11/24 12/05/24 Unknown History mcg/actuation nasal allergies spray,suspension sodium polystyrene sulfonate 30 g PO MOWEFR 11/11/24 0 12/05/24 12/03/24 History zinc acetate 25 mg (zinc) capsule 25 mg PO DAILY 11/1112/05/24 12/05/24 History insulin lispro 100 unit/mL See Protocol subcut QIDACHS 12/05/24 12/05/24 12/04/24 History subcutaneous pen (Humalog KwikPen (U-100) Insulin) Physical Exam 2 Vital Signs: Vital Signs: Last Vital Signs Temp 97.3 F 12/06/24 11:24 Pulse 73 12/06/24 11:24 Resp 20 12/06/24 11:24 BP 144/72 H 12/06/24 11:24 Pulse Ox 96 12/06/24 11:24 O2 Del Method Nasal Cannula 12/06/24 11:24 O2 Flow Rate 3 12/06/24 11:24 Oxygen Flow Rate 6 12/05/24 10:24 BMI result Body Mass Index 38.5 Const: General: no acute distress and alert Nutritional Appearance: obese Orientation/consciousness: Other orientation findings ( oriented) HEENT: Head: Yes atraumatic Eyes: General: appearance normal, both eyes and all related structures S clerae: sclerae normal EOM: EOMs intact bilaterally Neck: Neck: Yes supple Lymphatic: no lymphadenopathy noted Resp: Effort & Inspection: normal respiratory effort and no use of accessory muscles Auscultation: crackles (Mild bilateral) Cardio: Rate: regular rate Rhythm: regular rhythm Heart sounds: no gallops, no murmurs and no rubs Skin: General skin exam: other ( warm) Extrem: General: No clubbing, No cyanosis and Yes edema (2+ bilateral) Results Laboratory Findings 12/06/24 06:37 12/06/24 06:37 Abnormal lab findings: Abnormal Labs 12/05/24 12/05/24 12/05/24 11:00 11:08 11:31 WBC 16.2 H RBC 1.80 L D Hgb 5.3 L* D Hct 16.1 L* D Immature Gran % (Auto) 1.5 H Neut % (Auto) 88.9 H Lymph % (Auto) 3.5 L Lymph # (Auto) 0.6 L Abs Immat Gran (auto) 0.25 H Absolute Neuts (auto) 14.4 H ESR > 140 H VBG pH 7.50 H Sodium 131 L Carbon Dioxide BUN 104 H Creatinine 4.18 H* POC Glucose Random Glucose 313 H Calcium 8.3 L AST 40 H Alkaline Phosphatase 236 H C-Reactive Protein 21.97 H B-Natriuretic Peptide 2318 H Albumin 3.0 L Urine Protein Crossmatch See Detail 12/05/24 12/05/24 12/05/24 12:00 12:25 16:25 WBC RBC Hgb Hct Immature Gran % (Auto) Neut % (Auto) Lymph % (Auto) Lymph # (Auto) Abs Immat Gran (auto) Absolute Neuts (auto) ESR VBG pH Sodium Carbon Dioxide BUN Creatinine POC Glucose 285 H 145 H Random Glucose Calcium AST Alkaline Phosphatase C-Reactive Protein B-Natriuretic Peptide Albumin Urine Protein 100 (2+) H Crossmatch 12/05/24 12/05/24 12/06/24 18:21 21:05 06:37 WBC 16.1 H RBC 2.46 L D Hgb 7.3 L D Hct 21.6 L D Immature Gran % (Auto) Neut % (Auto) Lymph % (Auto) Lymph # (Auto) Abs Immat Gran (auto) Absolute Neuts (auto) ESR VBG pH Sodium 133 L Carbon Dioxide 21 L BUN 103 H Creatinine 4.10 H* POC Glucose 155 H 177 H Random Glucose 166 H Calcium AST Alkaline Phosphatase C-Reactive Protein B-Natriuretic Peptide 2523 H Albumin Urine Protein Crossmatch 12/06/24 12/06/24 07:07 11:19 WBC RBC Hgb Hct Immature Gran % (Auto) Neut % (Auto) Lymph % (Auto) Lymph # (Auto) Abs Immat Gran (auto) Absolute Neuts (auto) ESR VBG pH Sodium Carbon Dioxide BUN Creatinine POC Glucose 159 H 274 H Random Glucose Calcium AST Alkaline Phosphatase C-Reactive Protein B-Natriuretic Peptide Albumin Urine Protein Crossmatch Assessment and Plan (1) Acute respiratory failure with hypoxia: Status: Acute (2) Abnormal CT scan, chest: Status: Acute (3) Severe obstructive sleep apnea: Status: Acute (4) Pulmonary edema: Status: Resolved Plan Impression: 54-year-old gentleman admitted with acute hypoxic respiratory failure on a background of CHF exacerbation with CT chest showing multifocal patchy infiltrate with peribronchovascular predominant that this clinical picture would be most consistent with pulmonary edema. Recommendation: Agree with additional diuresis. Consider repeating CT chest in 4-6 weeks. Procedures Date of Service Date of Service: 12/06/24
[2024-12-06 14:06] LABS: OBS Int Ctl Valid YES; OBS1 NEGATIVE (NEGATIVE)
[2024-12-06 15:28] VITALS: BP 158/77; PULSE 79; RESP 18; TEMP 36.8; O2SAT 97
[2024-12-06 16:11] LABS: Glucose, Whole Blood 285 mg/dL (60-115)
[2024-12-06] MEDS: Insulin Glargine,Hum.rec.anlog 100 UNIT/ML 10 ML VIAL 12 UNIT SUBCUT (16:27)
[2024-12-06 17:45] VITALS: BP 153/76
[2024-12-06 20:00] VITALS: BP 168/82; PULSE 78; RESP 17; TEMP 37.2; O2SAT 93
[2024-12-06 21:08] LABS: Glucose, Whole Blood 233 mg/dL (60-115)
[2024-12-07] VITALS (11 sets, daily range): BP systolic 151–165; BP diastolic 68–96; PULSE 68–92; RESP 16–26; TEMP 36.6–37.4; O2SAT 92–98
--- NOTE | 2024-12-07 | ECG_ITS ---
Test Reason : chest pain Blood Pressure : */* mmHG Vent. Rate : 85 BPM Atrial Rate : 85 BPM P-R Int : 154 ms QRS Dur : 80 ms QT Int : 368 ms P-R-T Axes : 34 14 21 degrees QTcB Int : 437 ms Normal sinus rhythm Normal ECG When compared to the previous EKG of No significant changes seen Referred By: Suresh Dawson Electronically Signed By: Maxime Dixon
[2024-12-07] MEDS: 0.9 % Sodium Chloride Flush 3 ML SYRINGE IVFLUSH ×4 (02:00→20:17)
[2024-12-07 07:11] LABS: Mean Corpuscular HGB Conc 33.7 g/dl (31.0-36.0); Mean Corpuscular Hemoglobin 29.7 pg (27.0-33.0); Mean Corpuscular Volume 88.3 fL (80.0-98.0); NRBC Abs Auto 0.000 X10*3/uL (0.0-0.012); NRBC Pct Auto 0.0 /100WBC (0.0-0.2); Platelet Count 289 X10*3/uL (160-400); Red Blood Count 2.22 X10*6/uL (4.60-5.80); White Blood Count 15.6 X10*3/uL (4.8-10.8)
[2024-12-07 07:17] LABS: Glucose, Whole Blood 162 mg/dL (60-115)
[2024-12-07 07:23] LABS: Anion Gap 16 (12-20); Blood Urea Nitrogen 100 mg/dL (9-16); Calcium 8.1 mg/dL (8.4-10.2); Carbon Dioxide 23 mmol/L (22-29); Chloride 99 mmol/L (96-108); Creatinine Clr Calc Pharmacy 30.1; Estimated Glomerular Filt Rate 18; Potassium 4.1 mmol/L (3.3-5.1); Sodium 134 mmol/L (135-145)
[2024-12-07 07:29] LABS: B Type Natriuretic Peptide 2893 pg/mL (<100)
[2024-12-07 07:30] LABS: Hemoglobin 6.6 g/dl (14.0-18.0)
[2024-12-07 07:31] LABS: Hematocrit 19.6 % (42.0-52.0)
[2024-12-07] MEDS: Furosemide 40 MG/4 ML VIAL 80 MG IVPUSH ×2 (08:05→16:22)
--- NOTE | 2024-12-07 08:15 | HO.PM.IMPN ---
Subjective Subjective Date of Service: 12/07/24 Interval History: H&H again dropped: hgb now 6.6 Still feels weak and SOB Has not been out of bed yet Not been able to eat or drink much Diuresing well: -1.8L past 24 hours Review of Systems Review of Systems: Yes all other systems are reviewed and are negative Physical Exam Exam: Exam: General: AOx3, looks uncomfortable, weak Resp: CTA bilaterally. Increased work of breathing, speaking in 2-3 word sentences CVS: S1, S2, RRR GI: +BS, NT, no distention Skin: Warm, dry Neuro: Cranial nerves II-XII grossly intact bilaterally. Motor grossly intact bilaterally Extremities: 2+ bilateral pitting edema, mildly improved from yesterday Psych: Appropriate affect Vital Signs: Vital Signs: Last Vital Signs Temp 99.4 F 12/07/24 08:00 Pulse 70 12/07/24 08:00 Resp 18 12/07/24 08:00 BP 156/74 H 12/07/24 08:00 Pulse Ox 94 12/07/24 07:09 O2 Del Method CPAP 12/07/24 07:09 O2 Flow Rate 2 12/07/24 03:46 Oxygen Flow Rate 6 12/05/24 10:24 BMI result Body Mass Index 38.5 Objective Data Active Medications Acetaminophen (Acetaminophen 325 Mg Tablet) 650 mg PO Q6H PRN PRN Reason: Pain, Mild 1-3,fever,headache Last Admin: 12/06/24 17:50 Dose: 650 mg Documented By: DEANDRA Calcium Carbonate (Calcium Carbonate 750 Mg Tab.Chew) 750 mg PO Q4H PRN PRN Reason: Heartburn Cyclobenzaprine HCl (Cyclobenzaprine Hcl 10 Mg Tablet) 10 mg PO TID PRN PRN Reason: Muscle Spasm Last Admin: 12/06/24 23:40 Dose: 10 mg Documented By: ALY Dextrose (Dextrose 50 % 25 Gm/50 Ml Syringe) 25 gm IVPUSH Q15M PRN; Protocol PRN Reason: per Hypoglycemia Standing Ord. Fenofibrate (Fenofibrate 54 Mg Tablet) 54 mg PO DAILY NICHOLAS Last Admin: 12/07/24 08:05 Dose: 54 mg Documented By: DEANDRA Fluticasone Propionate (Fluticasone Propionate Nasal 16 Gm [place]) 2 spray NOSTRIL-B BID PRN PRN Reason: for allergies Last Admin: 12/06/24 21:01 Dose: 2 spray Documented By: ALY Furosemide (Furosemide 40 Mg/4 Ml Vial) 80 mg IVPUSH BID@0900,1800 [facility]; Protocol Last Admin: 12/07/24 08:05 Dose: 80 mg Documented By: DEANDRA Glucose (Glucose Gel 15 Gm Gel..Gram.) 15 gm PO Q15M PRN; Protocol PRN Reason: per Hypoglycemia Standing Ord. Cefepime HCl 1 gm/ Sodium (Chloride) 50 mls @ 100 mls/hr IV Q12H [facility] Last Infusion: 12/07/24 02:30 Dose: Infused Documented By: ALY Daptomycin 650 mg/ Sodium (Chloride) 63 mls @ 126 mls/hr IV Q48H [facility] Last Infusion: 12/06/24 10:29 Dose: Infused Documented By: DEANDRA Insulin Glargine (Insulin Glargine,Hum.Rec.Anlog 100 Unit/Ml 10 Ml Vial) 12 unit SUBCUT DAILY@1700 [facility] Last Admin: 12/06/24 16:27 Dose: 12 unit Documented By: DEANDRA Insulin Human Lispro (Insulin Lispro 100 Unit/Ml 3 Ml Vial) 0 unit SUBCUT QIDACHS [facility]; Protocol Last Admin: 12/07/24 08:05 Dose: 2 unit Documented By: DEANDRA Isosorbide Mononitrate (Isosorbide Mononitrate 30 Mg Tab.Er.24h) 30 mg PO DAILY [facility]; Protocol Last Admin: 12/07/24 08:05 Dose: 30 mg Documented By: DEANDRA Magnesium Hydroxide (Milk Of Magnesia 30 Ml Oral.Susp) 30 ml PO DAILY PRN PRN Reason: Constipation Melatonin (Melatonin 3 Mg Tablet) 6 mg PO BEDTIME PRN PRN Reason: Insomnia Multivitamins/Vitamin C (Multivitamin Tablet) 1 tab PO DAILY [facility] Last Admin: 12/07/24 08:05 Dose: 1 tab Documented By: DEANDRA Ondansetron HCl (Ondansetron Hcl 4 Mg/2 Ml Vial) 4 mg IVPUSH Q8H PRN PRN Reason: Nausea and Vomiting Sodium Chloride (0.9 % Sodium Chloride Flush 3 Ml Syringe) 3 ml IVFLUSH QSHIFT [facility] Last Admin: 12/07/24 08:06 Dose: 3 ml Documented By: DEANDRA Vitamin D (Cholecalciferol (Vitamin D3) 25 Mcg Tablet) 50 mcg PO BEDTIME [facility] Last Admin: 12/06/24 21:01 Dose: 50 mcg Documented By: ALY Labs 12/07/24 06:42 12/07/24 06:42 Labs: Laboratory Results - last 24 hr 12/05/24 12/05/24 12/05/24 11:00 11:31 15:28 MCV MCH MCHC RDW Plt Count MPV Absolute Nucleated RBC Nucleated RBC % (auto) Smear Path Review SEE NOTE Anion Gap Estim Creat Clear Calc Estimated GFR POC Glucose Random Glucose Calcium B-Natriuretic Peptide Nasal Screen MRSA (PCR) NEGATIVE Nasal S. aureus Screen NEGATIVE Nasal MRSA/S.aureus Interp SEE NOTE Stool Occult Blood Blood Type A Positive Antibody Screen NEGATIVE Crossmatch See Detail 12/06/24 12/06/24 12/06/24 11:19 13:51 16:08 MCV MCH MCHC RDW Plt Count MPV Absolute Nucleated RBC Nucleated RBC % (auto) Smear Path Review Anion Gap Estim Creat Clear Calc Estimated GFR POC Glucose 274 H 285 H Random Glucose Calcium B-Natriuretic Peptide Nasal Screen MRSA (PCR) Nasal S. aureus Screen Nasal MRSA/S.aureus Interp Stool Occult Blood NEGATIVE Blood Type Antibody Screen Crossmatch 12/06/24 12/07/24 12/07/24 21:04 06:42 07:12 MCV 88.3 MCH 29.7 MCHC 33.7 RDW 14.2 Plt Count 289 MPV 11.9 Absolute Nucleated RBC 0.000 Nucleated RBC % (auto) 0.0 Smear Path Review Anion Gap 16 Estim Creat Clear Calc 30.1 Estimated GFR 18 POC Glucose 233 H 162 H Random Glucose 188 H Calcium 8.1 L B-Natriuretic Peptide 2893 H Nasal Screen MRSA (PCR) Nasal S. aureus Screen Nasal MRSA/S.aureus Interp Stool Occult Blood Blood Type Antibody Screen Crossmatch Microbiology Microbiology Results: Microbiology 12/05/24 11:31 Blood Culture - Preliminary Blood - Venous No growth after 24 hours. 12/05/24 11:00 Blood Culture - Preliminary Blood - Venous No growth after 24 hours. Assessment and Plan (1) Acute exacerbation of congestive heart failure: Status: Acute (2) Acute on chronic anemia: Status: Acute Plan Pt is a 54-year-old male with a PMH significant for?HFpEF, insulin-dependent type 2 diabetes, HLD, HTN, CKD 3, NANCY, and hx of osteo on daptomycin who presents to the ED from PCP clinic with severe SOB and difficulty breathing x2 days. Pt is admitted to the hospital for treatment and further evaluation of acute hypoxic respiratory failure in the setting of CHF exacerbation and acute on chronic anemia requiring transfusion. Acute on chronic anemia of chronic disease Initial H&H 5.3/16.1; previous 8.7/25.5 Pt reports dark black stools, but on iron supplementation; stool negative for occult blood x2 Pt transfused 2 units PRBCs in the ED with good response, though hbg again dropped to 6.6 today; will transfuse another unit of PRBCs Unclear etiology Will start hemolysis workup: Direct [place], LFTs including direct bilirubin, LDH, and retic count Hematology consult Monitor H&H, transfuse as necessary Acute hypoxic respiratory failure in the setting of HFpEF exacerbation Pt with severe SOB, SORTO, edema, hypoxia of 86% on RA, CXR with pulmonary edema, BNP elevated Continue Lasix 80 mg b.i.d. per nephrology; has diuresed 1.8L in past 24h Monitor BMP, BNP, I/O Low-salt diet Monitor on telemetry Titrate supplemental O2 >92, wean as tolerated Repeat echo showed: Conclusions: - Normal left ventricular size and systolic function. There is mildly increased left ventricular wall thickness. The visually estimated ejection fraction is between 55-60%. - E/E prime ratio is between 8 and 15 consistent with indeterminate filling pressures. - Mildly increased right ventricular cavity size. There is normal right ventricular systolic function. - The left atrium is moderately dilated. The right atrium is moderately dilated. - Significantly elevated right atrial pressure. There is no evidence of pulmonary hypertension. Question of pneumonia CXR showing pulmonary edema vs diffuse pneumonia Denies cough, no fever Meets SIRS with tachypnea and leukocytosis; lactic acid WNL Continue empiric cefepime for now, day 2 CT of chest showed multifocal irregular airspace opacities in all lobes of both lungs Pulmonary consult recommends continued diuresing as pattern appears more edema than infectious MRSA nasal swab negative, procalcitonin 0.88 Hx of osteomyelitis left foot 5th digit Currently be treated with daptomycin every other day, end date 12/28/2024 Continue dapto HLD Hold statin while on dapto HTN Continue home antihypertensives as BP allows Insulin-dependent type 2 diabetes Sliding-scale insulin, Lantus, diabetic diet NANCY CPAP at night Full Code DVT Prophylaxis: Pneumatic compression due to acute anemia Pt will requires continued hospitalization for IV diuresing for hypoxia in the setting of CHF exacerbation and acute on chronic anemia of unclear etiology. Quality Stroke Does the patient have a stroke diagnosis?: No VTE Prior VTE?: No VTE Risk Level:: Medical - moderate - high VTE Device Contraindication: N/A - Device Ordered VTE Drug Contraindication: Treatment Not Indicated
--- NOTE | 2024-12-07 09:05 | MHC.CM.PN ---
DX PNA Wound infection HF BIBA from PCP appointment Recent DC [place] [facility] [place] Home infusion [facility]. Lives with S.O. Patient is independent at baseline. He states that he is not able to walk now. A PT eval needed. Patient open to STR if he qualifies. DP Home resumption of IV home infusion, private transport vs STR Via [facility] transport.
--- NOTE | 2024-12-07 10:13 | P.PNNP_ITS ---
Subjective Subjective Date of Service: 12/07/24 Interval history: Here for fluid overload/CHF exacerbation, acute anemia requiring blood transfusion. renal function remains fairly stable within baseline, has had some slight improvement. patient remains short of breath with significant LE swelling. Hemoglobin dropped again this a.m. again below 7.0. patient states he is ok. He is short of breath, and has some back pain. Otherwise no complaints. Denies pain. Denies urinary symptoms- about 5L total over last two days, 3L last 24 hours. Physical Exam 2 Vital Signs: Vital Signs: Last Vital Signs Temp 97.8 F 12/07/24 08:18 Pulse 80 12/07/24 08:18 Resp 20 12/07/24 08:18 BP 161/75 H 12/07/24 08:18 Pulse Ox 94 12/07/24 07:09 O2 Del Method CPAP 12/07/24 07:09 O2 Flow Rate 2 12/07/24 03:46 Oxygen Flow Rate 6 12/05/24 10:24 BMI result Body Mass Index 38.5 Const: General: no acute distress and awake; No alert Resp: Effort & Inspection: labored Auscultation: crackles Cardio: Rate: regular rate Rhythm: regular rhythm Heart sounds: S1 normal heart sound present and S2 normal heart sound present GI: Palpation (GI): Soft to palpation and nontender : General: Yes no CVA tenderness Back/Spine/Pelvis: Back: no CVA tenderness Skin: Rashes: no rashes Extrem: General: Yes edema (+3 BLE edema, pitting.) and Yes pedal edema Objective Data Labs 12/07/24 06:42 12/07/24 06:42 Labs: Laboratory Results - last 24 hr 12/05/24 12/05/24 12/06/24 11:00 11:31 11:19 WBC RBC Hgb Hct MCV MCH MCHC RDW Plt Count MPV Absolute Nucleated RBC Nucleated RBC % (auto) Smear Path Review SEE NOTE Sodium Potassium Chloride Carbon Dioxide Anion Gap BUN Creatinine Estim Creat Clear Calc Estimated GFR POC Glucose 274 H Random Glucose Calcium B-Natriuretic Peptide Stool Occult Blood Blood Type A Positive Antibody Screen NEGATIVE Crossmatch See Detail 12/06/24 12/06/24 12/06/24 13:51 16:08 21:04 WBC RBC Hgb Hct MCV MCH MCHC RDW Plt Count MPV Absolute Nucleated RBC Nucleated RBC % (auto) Smear Path Review Sodium Potassium Chloride Carbon Dioxide Anion Gap BUN Creatinine Estim Creat Clear Calc Estimated GFR POC Glucose 285 H 233 H Random Glucose Calcium B-Natriuretic Peptide Stool Occult Blood NEGATIVE Blood Type Antibody Screen Crossmatch 12/07/24 12/07/24 06:42 07:12 WBC 15.6 H RBC 2.22 L Hgb 6.6 L* Hct 19.6 L* MCV 88.3 MCH 29.7 MCHC 33.7 RDW 14.2 Plt Count 289 MPV 11.9 Absolute Nucleated RBC 0.000 Nucleated RBC % (auto) 0.0 Smear Path Review Sodium 134 L Potassium 4.1 Chloride 99 Carbon Dioxide 23 Anion Gap 16 BUN 100 H Creatinine 3.64 H Estim Creat Clear Calc 30.1 Estimated GFR 18 POC Glucose 162 H Random Glucose 188 H Calcium 8.1 L B-Natriuretic Peptide 2893 H Stool Occult Blood Blood Type Antibody Screen Crossmatch Microbiology Microbiology Results: Microbiology 12/05/24 11:31 Blood - Venous Blood Culture - Preliminary No growth after 24 hours. 12/05/24 11:00 Blood - Venous Blood Culture - Preliminary No growth after 24 hours. Procedures Date of Service Date of Service: 12/07/24 Assessment & Plan Assessment and plan (1) Acute kidney injury superimposed on CKD: Status: Acute Plan CHF exacerbation and acute anemia in setting of advanced CKD. renal function is stable. recommend continuing 80mg IVP lasix BID for management of fluid overload as needs high dose of diuretics to allow for response given renal impairment. Currently has adequate response with ~3L urine output over previous 24 hours. Goal to maintain negative fluid balance. recommend workup for source of bleeding, CKD is unlikely to explain precipitous drops in H&H. hyponatremia- likely hypervolemic related to reduced circulating volume in CHF exacerbation- diuresis as above avoid nephrotoxins daily electrolyte and renal function studies regular blood pressure checks, close I&O monitoring continue supportive care Discussed with Dr Read Time Spent With Patient Time: Total time managing care of this patient today ____ minutes. Progress Note: Quality Stroke Does the patient have a stroke diagnosis?: No
[2024-12-07 10:59] LABS: Glucose, Whole Blood 234 mg/dL (60-115)
--- NOTE | 2024-12-07 12:26 | HO.WOUND ---
Wound Consult: Initial 54yr old?Male admitted to [facility] [place] on 12/05/24 - See progress notes and H&P for detailed history.? Wound consult placed for Left 3rd Toe.? Patient agreeable to assessment and photo documentation.? Patient has history of left 3rd toe [place] on ABX still - providers aware. Left 3rd toe Etiology: ??Diabetic Wound + Osteo per chart review Present on Admission Measurements: 0.5cm x 0.5cm x 0.2cm Wound Bed: red moist tissue with bone fragment noted Drainage / Odor: scant seorsang Edges: ? unattached Sary wound: Dry callused tissue -? No Induration, Fluctuance or Warmth noted Pain: denies reports neuropathy Goals of Treatment: ? Durafiber for moisture management Right 4th toes dry stable callus - no open wound no drainage no topical treatment needed at this time. Recommendations: 1. Turn and Reposition every 2 hours and as needed for patient comfort.? Use pillows or wedges to support off loading positions. 2. Off Load all bony prominences with use of pillows and heel boots if needed.? Apply Preventative foams where needed. ? 3. Monitor for incontinence and moisture control, use barrier creams when needed for prevention and treatment. 4. Provide adequate and supplemental nutrition.? 5. When applicable maintain blood glucose levels per Providers order. Left Third Toe - Cleanse with NS moist gauze, Pat dry.? Apply barrier to periwound, apply Durafiber AG to wound bed, cover with dry gauze, ABd pad and wrap.? Change every other day. Re-consult wound care Nurse for wound deterioration or wound changes.
[2024-12-07 12:27] LABS: Glucose, Whole Blood 240 mg/dL (60-115)
[2024-12-07 13:57] LABS: Reticulocytes Absolute 0.077 X10*6/uL (0.026-0.095)
[2024-12-07 14:21] LABS: Alanine Aminotransferase 30 U/L (0-40); Albumin Level 2.9 g/dL (3.5-5.0); Alkaline Phosphatase 277 U/L (39-117); Aspartate Amino Transferase 38 U/L (5-37); Total Protein 7.0 g/dL (6.5-8.0)
[2024-12-07 14:30] LABS: Ferritin 534 ng/mL (20-250)
[2024-12-07 14:45] LABS: Folate 10.8 ng/mL (> or = 4.0); Vitamin B12 909 pg/mL (200-900)
[2024-12-07 16:10] LABS: Glucose, Whole Blood 253 mg/dL (60-115)
[2024-12-07] MEDS: Insulin Glargine,Hum.rec.anlog 100 UNIT/ML 10 ML VIAL 12 UNIT SUBCUT (16:26)
[2024-12-07] MEDS: Heparin Sodium,Porcine Flush 50 UNITS, 0.9 % Sodium Chloride Flush 5 ML IVFLUSH (16:27)
--- NOTE | 2024-12-07 16:38 | PM.HEMONCCN ---
Subjective - Subjective Chief complaint: Shortness of breath/weakness Patient: known to practice within the last 3 years Consult date: 12/07/24 Primary Care Provider: Quique Tatum CNP Waste Reduction Coordinator Utilized?: No - Cymraes Speaking HPI - Consult Narrative Reason for consult: Worsening anemia Narrative: River Luque is a 54 year old male with multiple medical problems including insulin-dependent diabetes mellitus, mixed hyperlipidemia, hypertension, diastolic congestive heart failure, CKD stage 3, obstructive sleep apnea, recent left foot osteomyelitis treated in October 2024 who is presenting [place] [facility] breath and weakness. During his admission in October his kidney functions worsened further. He was treated with IV antibiotics for osteomyelitis, daptomycin 650 mg IV every 48 hours which he is supposed to continue until 12/28/2024. Patient presented with significant shortness of breath and lower leg swelling. He has been feeling lightheaded, dizzy, weak and drowsy. He went to see his PCP in follow-up on Thursday who called the ambulance and sent him to the ED. In the ED pt was tachypneic to 22 and hypoxic as low as 86% on RA. Labs were significant for leukocytosis 16.2, H&H 5.3/16.1, ESR >140. Echocardiogram revealed ejection fraction of 55-60%. Patient has been taking iron and reports chronic dark-colored stools. He he was followed by Dr. Siddiqui for chronic anemia and was last seen on 10/25/2024. Review of Systems - Constitutional Reports as per HPI - Neurologic Denies memory loss, Denies seizure-like activity, Reports weakness PMFSH Medical History: Medical History (Last Reviewed 11/21/24 @ 16:40 by Ewa Gerber MD) Acute heart failure with preserved ejection fraction (HFpEF) Chronic heart failure with preserved ejection fraction (HFpEF) Chronic renal insufficiency CKD (chronic kidney disease) stage 3, GFR 30-59 ml/min Diabetic nephropathy Elevated cholesterol Hypertension Iron deficiency anemia Necrotizing subcutaneous infection Osteomyelitis of third toe of left foot Sleep apnea Type 2 diabetes Family History: Family History (Last Reviewed 11/25/24 @ 14:46 by Kimberly Blanco MA) Mother Diabetes Maternal Uncle Diabetes Sister Multiple sclerosis Father Liver failure Kidney failure Surgical History: Surgical History (Last Reviewed 11/25/24 @ 14:46 by Kimberly Blanco MA) History of pyloromyotomy Status post incision and drainage Carpio teeth removed Social History: Social History (Last Reviewed 11/25/24 @ 14:46 by Kimberly Blanco MA) Living Situation History: Household Members: Significant Other Household Members: Children Caregiver staying overnight: No Housing: House Are you a primary pediatric acute care unit nurse to a significant other at home: No Do you presently have visiting nurse or other home services: Yes 75 years or older and lives alone: No Tobacco History: Patient Tobacco Use Status: Former Tobacco user Tobacco use type: Cigarette Years Smoked: 4 e-Cigarette/Vaping Use: Never Used Second Hand Smoke Exposure: No Substance Use History: Substance Use Type: Marijuana Advance Directives: Advance Directives Date on File: 05/07/23 Occupation Assessmet: service: No Current occupational status: employed Current occupation: [employer] Current occupational exposures/hazards: No Home Medications and Allergies Current Medications: Current Medications Acetaminophen (Acetaminophen 325 Mg Tablet) 650 mg PO Q6H PRN PRN Reason: Pain, Mild 1-3,fever,headache Last Admin: 12/07/24 16:28 Dose: 650 mg Calcium Carbonate (Calcium Carbonate 750 Mg Tab.Chew) 750 mg PO Q4H PRN PRN Reason: Heartburn Heparin Sodium (Porcine) 50 (units/ Sodium Chloride 5 ml) 0 units IVFLUSH DAILY [facility] Last Admin: 12/07/24 16:27 Dose: 50 unit Cyclobenzaprine HCl (Cyclobenzaprine Hcl 10 Mg Tablet) 10 mg PO TID PRN PRN Reason: Muscle Spasm Last Admin: 12/06/24 23:40 Dose: 10 mg Dextrose (Dextrose 50 % 25 Gm/50 Ml Syringe) 25 gm IVPUSH Q15M PRN; Protocol PRN Reason: per Hypoglycemia Standing Ord. Fenofibrate (Fenofibrate 54 Mg Tablet) 54 mg PO DAILY [facility] Last Admin: 12/07/24 08:05 Dose: 54 mg Fluticasone Propionate (Fluticasone Propionate Nasal 16 Gm [place]) 2 spray NOSTRIL-B BID PRN PRN Reason: for allergies Last Admin: 12/06/24 21:01 Dose: 2 spray Furosemide (Furosemide 40 Mg/4 Ml Vial) 80 mg IVPUSH BID@0900,1800 [facility]; Protocol Last Admin: 12/07/24 16:22 Dose: 80 mg Glucose (Glucose Gel 15 Gm Gel..Gram.) 15 gm PO Q15M PRN; Protocol PRN Reason: per Hypoglycemia Standing Ord. Cefepime HCl 1 gm/ Sodium (Chloride) 50 mls @ 100 mls/hr IV Q12H [facility] Last Infusion: 12/07/24 13:29 Dose: Infused Daptomycin 650 mg/ Sodium (Chloride) 63 mls @ 126 mls/hr IV Q48H [facility] Last Infusion: 12/06/24 10:29 Dose: Infused Insulin Glargine (Insulin Glargine,Hum.Rec.Anlog 100 Unit/Ml 10 Ml Vial) 12 unit SUBCUT DAILY@1700 [facility] Last Admin: 12/07/24 16:26 Dose: 12 unit Insulin Human Lispro (Insulin Lispro 100 Unit/Ml 3 Ml Vial) 0 unit SUBCUT QIDACHS [facility]; Protocol Last Admin: 12/07/24 16:26 Dose: 6 unit Isosorbide Mononitrate (Isosorbide Mononitrate 30 Mg Tab.Er.24h) 30 mg PO DAILY [facility]; Protocol Last Admin: 12/07/24 08:05 Dose: 30 mg Magnesium Hydroxide (Milk Of Magnesia 30 Ml Oral.Susp) 30 ml PO DAILY PRN PRN Reason: Constipation Melatonin (Melatonin 3 Mg Tablet) 6 mg PO BEDTIME PRN PRN Reason: Insomnia Multivitamins/Vitamin C (Multivitamin Tablet) 1 tab PO DAILY [facility] Last Admin: 12/07/24 08:05 Dose: 1 tab Ondansetron HCl (Ondansetron Hcl 4 Mg/2 Ml Vial) 4 mg IVPUSH Q8H PRN PRN Reason: Nausea and Vomiting Sodium Chloride (0.9 % Sodium Chloride Flush 3 Ml Syringe) 3 ml IVFLUSH QSHIFT [facility] Last Admin: 12/07/24 16:27 Dose: 3 ml Vitamin D (Cholecalciferol (Vitamin D3) 25 Mcg Tablet) 50 mcg PO BEDTIME [facility] Last Admin: 12/06/24 21:01 Dose: 50 mcg Home Medications ?Medication ?Instructions ?Recorded ?Confirmed ?Type multivitamin 1 tab PO DAILY 03/11/22 12/05/24 History omega-3 fatty acids-fish oil 684 1 cap PO DAILY 01/21/24 12/05/24 History mg-1,200 mg capsule,delayed release acetaminophen 500 mg tablet 1,000 mg PO BID PRN Pain 11/11/24 12/05/24 History cholecalciferol (vitamin D3) 50 50 mcg PO BEDTIME 11/11/24 12/05/24 History mcg (2,000 unit) capsule fluticasone propionate 50 2 spray intranasal BID PRN for 11/11/24 12/05/24 History mcg/actuation nasal allergies spray,suspension sodium polystyrene sulfonate 15 30 g PO MOWEFR 11/11/24 12/05/24 History gram oral powder zinc acetate 25 mg (zinc) capsule 25 mg PO DAILY 11/11/24 12/05/24 History insulin lispro 100 unit/mL See Protocol subcut QIDACHS 12/05/24 12/05/24 History subcutaneous pen (Humalog KwikPen (U-100) Insulin) Allergies Allergy/AdvReac Type Severity Reaction Status Date / Time No Known Allergies Allergy Verified 12/05/24 10:35 Physical Exam Vital signs: Vital Signs Temp 98.2 F 12/07/24 15:02 Pulse 85 12/07/24 15:02 Resp 18 12/07/24 15:02 BP 158/68 H 12/07/24 16:22 Pulse Ox 96 12/07/24 15:02 O2 Del Method Nasal Cannula 12/07/24 15:02 O2 Flow Rate 2 12/07/24 15:02 Intake & Output 12/06/24 12/07/24 12/07/24 18:59 06:59 18:59 Intake Total 788 / 838 50 / 838 650 / 650 Output Total 1651 / 2951 1300 / 2951 500 / 500 Balance -863 / -2113 -1250 / -2113 150 / 150 Urine Output (Average ml/kg/hr) 1.16 0.91 0.35 Intake: Intake, Oral Amount 675 / 675 250 / 250 Intake (Blood Product) Amount 350 / 350 Red Blood Cells (E0336) Unit 350 / 350 [id number] Intake, IV Amount 113 / 163 50 / 163 50 / 50 DAPTOmycin 650 mg In 0.9 % 63 / 63 Sodium Chloride 50 ml @ 126 mls /hr IV Q48H [facility] Rx#:[id number] cefEPime HCl 1 gm In 0.9 % 50 / 100 50 / 100 50 / 50 Sodium Chloride 50 ml @ 100 mls /hr IV Q12H [facility] Rx#:[id number] Output: Output, Urine Amount 900 / 2200 1300 / 2200 500 / 500 Output, Stool Amount 1 / 1 Output, Urine Amount (Catheter) 750 / 750 Urethral 750 / 750 Other: Breakfast % Eaten 75% Urine m purewick purewick m purewick Urine Color Yellow Yellow Last Bowel Movement 12/06/24 12/06/24 Stool Bedpan Stool Amount Moderate Stool Color Dark Brown Stool Consistency Liquid Weight 118.4 kg - Constitutional Present: mild distress, obese - Routine HEENT Exam Head: Present: normal inspection Eye: Present: conjunctivae pale - Routine Neck Exam Present: trachea midline - Routine Respiratory Exam Absent: stridor, wheezes - Routine Cardiovascular Exam Cardiovascular: Present: S1, S2, tachycardia - Routine Extremities Exam Present: pedal edema Hem/Onc Consult Result - Labs CBC & Chem 7: 12/07/24 06:42 12/07/24 06:42 Labs: Short CBC 12/07/24 Range/Units 06:42 WBC 15.6 H (4.8-10.8) X10*3/uL Hgb 6.6 L* (14.0-18.0) g/dl Hct 19.6 L* (42.0-52.0) % Plt Count 289 (160-400) X10*3/uL BMP 12/07/24 06:42 Sodium 134 L Potassium 4.1 Chloride 99 Carbon Dioxide 23 BUN 100 H Creatinine 3.64 H Calcium 8.1 L Liver Function 12/07/24 Range/Units 13:39 Total Bilirubin 1.0 (0.0-1.0) mg/dL Direct Bilirubin 0.6 H (0.0-0.5) mg/dL AST 38 H (5-37) U/L ALT 30 (0-40) U/L Alkaline Phosphatase 277 H (39-117) U/L Albumin 2.9 L (3.5-5.0) g/dL Assessment and Plan Patient Active problem list reviewed?: Yes (1) Anemia Status: Acute Assessment and plan: This is a 54-year-old male with multiple medical problems including diabetes mellitus, chronic kidney disease, anemia, obstructive sleep apnea and heart failure who is presenting with acute on chronic anemia. He was recently treated for osteomyelitis of his left foot with daptomycin which he has been currently receiving. On 11/16/2024, his hemoglobin was 8.7 gram/dL. He presented to ED on 12/05/2024 with hemoglobin of 5.3 gram/dL. Patient was discharged from the hospital on 11/22/2024. There was no blood work from 11/16 to 11/22/2024. He was being treated for osteomyelitis with daptomycin. His serum creatinine on 11/16/2024 was 4 mg/dL, it peaked to 5.25 on 11/20/2024. On current admission on 12/05/2024 his serum creatinine was 4.18 mg/dL. His anemia is multifactorial. Most likely contributing factors are recent infection/osteomyelitis, dilutional from heart failure and acute kidney injury from prior admission. His CBC was not checked after 11/16/2024, he could have deteriorated in terms of anemia in the last admission itself. Hematological workup shows elevated ferritin, normal LDH, elevated vitamin B12, normal folate levels. Previously his serum immunofixation was normal. At this time there are no hematinic deficiencies, no evidence of hemolysis. Daptomycin rarely causes hemolytic anemia, at this time there is no evidence of hemolysis. Desmond test is negative. No evidence of gastrointestinal blood losses. Since he is in heart failure, I would not recommend further blood transfusions. Recommend aggressive diuresis and Procrit/MUSA therapy for his anemia. Thank you for the consultation. - Time Spent With Patient Time Spent with Patient (in minutes): 25 Additional Coding: - Additional E/M codes Complex E/M visit Add On: CPT G2211
[2024-12-07 20:45] LABS: Glucose, Whole Blood 238 mg/dL (60-115)
[2024-12-08] VITALS (7 sets, daily range): BP systolic 159–177; BP diastolic 68–83; PULSE 76–95; RESP 18–24; TEMP 36.4–37.2; O2SAT 90–99
[2024-12-08 07:21] LABS: Glucose, Whole Blood 151 mg/dL (60-115)
[2024-12-08 07:24] LABS: Hematocrit 23.0 % (42.0-52.0); Hemoglobin 7.5 g/dl (14.0-18.0); Mean Corpuscular HGB Conc 32.6 g/dl (31.0-36.0); Mean Corpuscular Hemoglobin 29.2 pg (27.0-33.0); Mean Corpuscular Volume 89.5 fL (80.0-98.0); NRBC Abs Auto 0.000 X10*3/uL (0.0-0.012); NRBC Pct Auto 0.0 /100WBC (0.0-0.2); Platelet Count 294 X10*3/uL (160-400); Red Blood Count 2.57 X10*6/uL (4.60-5.80); White Blood Count 14.5 X10*3/uL (4.8-10.8)
[2024-12-08 07:52] LABS: Anion Gap 13 (12-20); Blood Urea Nitrogen 96 mg/dL (9-16); Calcium 8.2 mg/dL (8.4-10.2); Carbon Dioxide 23 mmol/L (22-29); Chloride 102 mmol/L (96-108); Creatinine Clr Calc Pharmacy 31.4; Estimated Glomerular Filt Rate 19; Potassium 3.9 mmol/L (3.3-5.1); Sodium 134 mmol/L (135-145)
[2024-12-08] MEDS: Heparin Sodium,Porcine Flush 50 UNITS, 0.9 % Sodium Chloride Flush 5 ML IVFLUSH (09:23)
[2024-12-08] MEDS: 0.9 % Sodium Chloride Flush 3 ML SYRINGE IVFLUSH ×3 (09:25→21:47)
[2024-12-08] MEDS: Furosemide 40 MG/4 ML VIAL 80 MG IVPUSH ×2 (09:25→16:56)
--- NOTE | 2024-12-08 10:21 | P.PNNP_ITS ---
Subjective Subjective Date of Service: 12/08/24 Interval history: Here for fluid overload/CHF exacerbation, acute anemia requiring blood transfusion. renal function remains fairly stable within baseline, has had some slight improvement. patient remains short of breath with significant LE swelling. Hemoglobin dropped again this a.m. again below 7.0. patient states he is ok. He is short of breath, and has some back pain. Otherwise no complaints. Denies pain. Denies urinary symptoms- about 5L total over last two days, 3L last 24 hours. Physical Exam 2 Vital Signs: Vital Signs: Last Vital Signs Temp 98.9 F 12/08/24 07:12 Pulse 82 12/08/24 07:12 Resp 20 12/08/24 07:12 BP 161/77 H 12/08/24 07:12 Pulse Ox 99 12/08/24 07:12 O2 Del Method Nasal Cannula 12/08/24 07:12 O2 Flow Rate 2 12/08/24 07:12 Oxygen Flow Rate 6 12/05/24 10:24 BMI result Body Mass Index 38.5 Const: General: no acute distress and awake; No alert Resp: Effort & Inspection: labored Auscultation: crackles Cardio: Rate: regular rate Rhythm: regular rhythm Heart sounds: S1 normal heart sound present and S2 normal heart sound present GI: Palpation (GI): Soft to palpation and nontender : General: Yes no CVA tenderness Back/Spine/Pelvis: Back: no CVA tenderness Skin: Rashes: no rashes Extrem: General: Yes edema (continues with significant BLE pitting edema, though improving) Objective Data Labs 12/08/24 06:39 12/08/24 06:39 Labs: Laboratory Results - last 24 hr 12/05/24 12/07/24 12/07/24 11:31 10:51 12:23 WBC RBC Hgb Hct MCV MCH MCHC RDW Plt Count MPV Absolute Nucleated RBC Nucleated RBC % (auto) Absolute Retic Percent Retic Immature Retic Fraction Retic Hgb Equivalent Sodium Potassium Chloride Carbon Dioxide Anion Gap BUN Creatinine Estim Creat Clear Calc Estimated GFR POC Glucose 234 H 240 H Random Glucose Haptoglobin Calcium Ferritin Total Bilirubin Direct Bilirubin AST ALT Alkaline Phosphatase Lactate Dehydrogenase Total Protein Albumin Vitamin B12 Folate CECY, Polyspecific Positive CECY Work-up Crossmatch See Detail 12/07/24 12/07/24 12/07/24 13:30 13:39 16:02 WBC RBC Hgb Hct MCV MCH MCHC RDW Plt Count MPV Absolute Nucleated RBC Nucleated RBC % (auto) Absolute Retic 0.077 Percent Retic 2.8 H Immature Retic Fraction 26.3 H Retic Hgb Equivalent 26.7 L Sodium Potassium Chloride Carbon Dioxide Anion Gap BUN Creatinine Estim Creat Clear Calc Estimated GFR POC Glucose 253 H Random Glucose Haptoglobin 381 H Cancelled Calcium Ferritin 534 H Total Bilirubin 1.0 Direct Bilirubin 0.6 H AST 38 H ALT 30 Alkaline Phosphatase 277 H Lactate Dehydrogenase 237 233 Total Protein 7.0 Albumin 2.9 L Vitamin B12 909 H Folate 10.8 CECY, Polyspecific NEGATIVE Positive CECY Work-up TNP Crossmatch 12/07/24 12/08/24 12/08/24 20:37 06:39 07:15 WBC 14.5 H RBC 2.57 L Hgb 7.5 L Hct 23.0 L MCV 89.5 MCH 29.2 MCHC 32.6 RDW 14.5 Plt Count 294 MPV 11.8 Absolute Nucleated RBC 0.000 Nucleated RBC % (auto) 0.0 Absolute Retic Percent Retic Immature Retic Fraction Retic Hgb Equivalent Sodium 134 L Potassium 3.9 Chloride 102 Carbon Dioxide 23 Anion Gap 13 BUN 96 H Creatinine 3.49 H Estim Creat Clear Calc 31.4 Estimated GFR 19 POC Glucose 238 H 151 H Random Glucose 150 H Haptoglobin Calcium 8.2 L Ferritin Total Bilirubin Direct Bilirubin AST ALT Alkaline Phosphatase Lactate Dehydrogenase Total Protein Albumin Vitamin B12 Folate CECY, Polyspecific Positive CECY Work-up Crossmatch Microbiology Microbiology Results: Microbiology 12/05/24 11:31 Blood - Venous Blood Culture - Preliminary No growth after 48 hours. 12/05/24 11:00 Blood - Venous Blood Culture - Preliminary No growth after 48 hours. Procedures Date of Service Date of Service: 12/08/24 Assessment & Plan Assessment and plan (1) Acute kidney injury superimposed on CKD: Status: Acute Plan CHF exacerbation and acute anemia in setting of advanced CKD. renal function is fairly stable, some improvement. recommend continuing 80mg IVP lasix BID for management of fluid overload as needs high dose of diuretics to allow for response given renal impairment. Continues to have adequate diuretic response to current dose of lasix. Goal to maintain negative fluid balance. recommend workup for source of bleeding, CKD is unlikely to explain precipitous drops in H&H. hyponatremia- likely hypervolemic related to reduced circulating volume in CHF exacerbation- diuresis as above avoid nephrotoxins daily electrolyte and renal function studies regular blood pressure checks, close I&O monitoring continue supportive care Discussed with Dr Read Time Spent With Patient Time: Total time managing care of this patient today ____ minutes. Progress Note: Quality Stroke Does the patient have a stroke diagnosis?: No
[2024-12-08 11:05] LABS: Glucose, Whole Blood 267 mg/dL (60-115)
[2024-12-08 15:14] LABS: Glucose, Whole Blood 213 mg/dL (60-115)
[2024-12-08] MEDS: Insulin Glargine,Hum.rec.anlog 100 UNIT/ML 10 ML VIAL 12 UNIT SUBCUT (16:56)
--- NOTE | 2024-12-08 17:30 | HO.PM.IMPN ---
Subjective Subjective Date of Service: 12/08/24 Interval History: Feeling much better, breathing improved Continues to diurese well:-2L past 24 hours Seen by Hematology yesterday; given Procrit Review of Systems Review of Systems: Yes all other systems are reviewed and are negative Physical Exam Exam: Exam: General: AOx3, looks better, more energetic Resp: CTA bilaterally. Speaking in full sentences CVS: S1, S2, RRR GI: +BS, NT, no distention Skin: Warm, dry Neuro: Cranial nerves II-XII grossly intact bilaterally. Motor grossly intact bilaterally Extremities: 2+ bilateral pitting edema, improved from yesterday Psych: Appropriate affect Vital Signs: Vital Signs: Last Vital Signs Temp 97.9 F 12/08/24 15:07 Pulse 80 12/08/24 15:07 Resp 18 12/08/24 15:07 BP 177/83 H 12/08/24 15:07 Pulse Ox 93 12/08/24 15:07 O2 Del Method Room Air 12/08/24 15:07 O2 Flow Rate 2 12/08/24 07:12 Oxygen Flow Rate 6 12/05/24 10:24 BMI result Body Mass Index 38.5 Objective Data Active Medications Acetaminophen (Acetaminophen 325 Mg Tablet) 650 mg PO Q6H PRN PRN Reason: Pain, Mild 1-3,fever,headache Last Admin: 12/07/24 16:28 Dose: 650 mg Documented By: DEANDRA Calcium Carbonate (Calcium Carbonate 750 Mg Tab.Chew) 750 mg PO Q4H PRN PRN Reason: Heartburn Heparin Sodium (Porcine) 50 (units/ Sodium Chloride 5 ml) 0 units IVFLUSH DAILY [facility] Last Admin: 12/08/24 09:23 Dose: 50 unit Documented By: RALF Cyclobenzaprine HCl (Cyclobenzaprine Hcl 10 Mg Tablet) 10 mg PO TID PRN PRN Reason: Muscle Spasm Last Admin: 12/07/24 23:32 Dose: 10 mg Documented By: ALY Dextrose (Dextrose 50 % 25 Gm/50 Ml Syringe) 25 gm IVPUSH Q15M PRN; Protocol PRN Reason: per Hypoglycemia Standing Ord. Fenofibrate (Fenofibrate 54 Mg Tablet) 54 mg PO DAILY [facility] Last Admin: 12/08/24 09:23 Dose: 54 mg Documented By: RALF Fluticasone Propionate (Fluticasone Propionate Nasal 16 Gm [place]) 2 spray NOSTRIL-B BID PRN PRN Reason: for allergies Last Admin: 12/07/24 23:32 Dose: 2 spray Documented By: ALY Furosemide (Furosemide 40 Mg/4 Ml Vial) 80 mg IVPUSH BID@0900,1800 [facility]; Protocol Last Admin: 12/08/24 16:56 Dose: 80 mg Documented By: RALF Glucose (Glucose Gel 15 Gm Gel..Gram.) 15 gm PO Q15M PRN; Protocol PRN Reason: per Hypoglycemia Standing Ord. Cefepime HCl 1 gm/ Sodium (Chloride) 50 mls @ 100 mls/hr IV Q12H [facility] Last Infusion: 12/08/24 14:20 Dose: Infused Documented By: RALF Daptomycin 650 mg/ Sodium (Chloride) 63 mls @ 126 mls/hr IV Q48H [facility] Last Infusion: 12/08/24 10:05 Dose: Infused Documented By: RALF Insulin Glargine (Insulin Glargine,Hum.Rec.Anlog 100 Unit/Ml 10 Ml Vial) 12 unit SUBCUT DAILY@1700 [facility] Last Admin: 12/08/24 16:56 Dose: 12 unit Documented By: RALF Insulin Human Lispro (Insulin Lispro 100 Unit/Ml 3 Ml Vial) 0 unit SUBCUT QIDACHS [facility]; Protocol Last Admin: 12/08/24 16:56 Dose: 4 unit Documented By: RALF Isosorbide Mononitrate (Isosorbide Mononitrate 30 Mg Tab.Er.24h) 30 mg PO DAILY [facility]; Protocol Last Admin: 12/08/24 09:22 Dose: 30 mg Documented By: RALF Magnesium Hydroxide (Milk Of Magnesia 30 Ml Oral.Susp) 30 ml PO DAILY PRN PRN Reason: Constipation Melatonin (Melatonin 3 Mg Tablet) 6 mg PO BEDTIME PRN PRN Reason: Insomnia Multivitamins/Vitamin C (Multivitamin Tablet) 1 tab PO DAILY [facility] Last Admin: 12/08/24 09:22 Dose: 1 tab Documented By: RALF Ondansetron HCl (Ondansetron Hcl 4 Mg/2 Ml Vial) 4 mg IVPUSH Q8H PRN PRN Reason: Nausea and Vomiting Sodium Chloride (0.9 % Sodium Chloride Flush 3 Ml Syringe) 3 ml IVFLUSH QSHIFT [facility] Last Admin: 12/08/24 16:57 Dose: 3 ml Documented By: RALF Vitamin D (Cholecalciferol (Vitamin D3) 25 Mcg Tablet) 50 mcg PO BEDTIME [facility] Last Admin: 12/07/24 20:16 Dose: 50 mcg Documented By: ALY Labs 12/08/24 06:39 12/08/24 06:39 Labs: Laboratory Results - last 24 hr 12/07/24 12/08/24 12/08/24 20:37 06:39 07:15 MCV 89.5 MCH 29.2 MCHC 32.6 RDW 14.5 Plt Count 294 MPV 11.8 Absolute Nucleated RBC 0.000 Nucleated RBC % (auto) 0.0 Anion Gap 13 Estim Creat Clear Calc 31.4 Estimated GFR 19 POC Glucose 238 H 151 H Random Glucose 150 H Calcium 8.2 L 12/08/24 12/08/24 11:00 15:11 MCV MCH MCHC RDW Plt Count MPV Absolute Nucleated RBC Nucleated RBC % (auto) Anion Gap Estim Creat Clear Calc Estimated GFR POC Glucose 267 H 213 H Random Glucose Calcium Microbiology Microbiology Results: Microbiology 12/05/24 11:31 Blood Culture - Preliminary Blood - Venous No growth after 48 hours. Assessment and Plan (1) Acute exacerbation of congestive heart failure: Status: Acute Plan Pt is a 54-year-old male with a PMH significant for?HFpEF, insulin-dependent type 2 diabetes, HLD, HTN, CKD 3, NANCY, and hx of osteo on daptomycin who presents to the ED from PCP clinic with severe SOB and difficulty breathing x2 days. Pt is admitted to the hospital for treatment and further evaluation of acute hypoxic respiratory failure in the setting of CHF exacerbation and acute on chronic anemia requiring transfusion. Acute on chronic anemia of chronic disease Initial H&H 5.3/16.1; previous 8.7/25.5 Pt does not appear to be actively bleeding or have hemolysis: Pt reports dark black stools, but on iron supplementation; stool negative for occult blood x2 Pt transfused 2 units PRBCs in the ED on 12/05 and another on 12/07 Hematology consulted, feel Likely multifactorial: Contributing factors are recent infection/osteomyelitis, delusional from heart failure, and EZRA from prior admission Pt received Procrit 20,000 units on 12/07 Monitor H&H Acute hypoxic respiratory failure in the setting of HFpEF exacerbation Pt with severe SOB, SORTO, edema, hypoxia of 86% on RA, CXR with pulmonary edema, BNP elevated Improving Continue Lasix 80 mg b.i.d. per nephrology; has diuresed 1.8L in past 24h Monitor BMP, BNP, I/O Low-salt diet Monitor on telemetry Titrate supplemental O2 >92, wean as tolerated Repeat echo showed: Conclusions: - Normal left ventricular size and systolic function. There is mildly increased left ventricular wall thickness. The visually estimated ejection fraction is between 55-60%. - E/E prime ratio is between 8 and 15 consistent with indeterminate filling pressures. - Mildly increased right ventricular cavity size. There is normal right ventricular systolic function. - The left atrium is moderately dilated. The right atrium is moderately dilated. - Significantly elevated right atrial pressure. There is no evidence of pulmonary hypertension. Question of pneumonia CXR showing pulmonary edema vs diffuse pneumonia Denies cough, no fever Meets SIRS with tachypnea and leukocytosis; lactic acid WNL Continue empiric cefepime for now, day 2 CT of chest showed multifocal irregular airspace opacities in all lobes of both lungs Pulmonary consult recommends continued diuresing as pattern appears more edema than infectious MRSA nasal swab negative, procalcitonin 0.88 Hx of osteomyelitis left foot 5th digit Currently be treated with daptomycin every other day, end date 12/28/2024 Continue dapto HLD Hold statin while on dapto HTN Continue home antihypertensives as BP allows Insulin-dependent type 2 diabetes Sliding-scale insulin, Lantus, diabetic diet NANCY CPAP at night Full Code DVT Prophylaxis: Pneumatic compression due to acute anemia Pt will requires continued hospitalization for IV diuresing for hypoxia in the setting of CHF exacerbation and acute on chronic anemia of unclear etiology. Quality Stroke Does the patient have a stroke diagnosis?: No VTE Prior VTE?: No VTE Risk Level:: Medical - moderate - high VTE Device Contraindication: N/A - Device Ordered VTE Drug Contraindication: Treatment Not Indicated
[2024-12-08 21:02] LABS: Glucose, Whole Blood 225 mg/dL (60-115)
[2024-12-09] VITALS (9 sets, daily range): BP systolic 142–191; BP diastolic 66–86; PULSE 76–85; RESP 16–20; TEMP 36.1–37.2; O2SAT 91–95
[2024-12-09 07:14] LABS: Hematocrit 23.9 % (42.0-52.0); Hemoglobin 8.0 g/dl (14.0-18.0); Mean Corpuscular HGB Conc 33.5 g/dl (31.0-36.0); Mean Corpuscular Hemoglobin 29.4 pg (27.0-33.0); Mean Corpuscular Volume 87.9 fL (80.0-98.0); NRBC Abs Auto 0.000 X10*3/uL (0.0-0.012); NRBC Pct Auto 0.0 /100WBC (0.0-0.2); Platelet Count 326 X10*3/uL (160-400); Red Blood Count 2.72 X10*6/uL (4.60-5.80); White Blood Count 17.2 X10*3/uL (4.8-10.8)
[2024-12-09 07:24] LABS: Glucose, Whole Blood 164 mg/dL (60-115)
[2024-12-09 07:27] LABS: Anion Gap 13 (12-20); Blood Urea Nitrogen 90 mg/dL (9-16); Calcium 8.5 mg/dL (8.4-10.2); Carbon Dioxide 23 mmol/L (22-29); Chloride 103 mmol/L (96-108); Creatinine Clr Calc Pharmacy 35.2; Estimated Glomerular Filt Rate 21; Potassium 3.9 mmol/L (3.3-5.1); Sodium 135 mmol/L (135-145)
[2024-12-09 07:34] LABS: B Type Natriuretic Peptide 2471 pg/mL (<100)
[2024-12-09] MEDS: Furosemide 40 MG/4 ML VIAL 80 MG IVPUSH ×2 (08:03→17:56)
[2024-12-09] MEDS: 0.9 % Sodium Chloride Flush 3 ML SYRINGE IVFLUSH ×3 (08:04→20:58)
[2024-12-09] MEDS: Heparin Sodium,Porcine Flush 50 UNITS, 0.9 % Sodium Chloride Flush 5 ML IVFLUSH (08:04)
[2024-12-09 11:34] LABS: Glucose, Whole Blood 226 mg/dL (60-115)
--- NOTE | 2024-12-09 12:51 | P.PNNP_ITS ---
Subjective Subjective Date of Service: 12/09/24 Interval history: Here for fluid overload/CHF exacerbation, acute anemia requiring blood transfusion. creatinine trending down. patient reports breathing remains uncomfortable but much better than when he came in. Swelling still significant but improving. continues to diurese well, ~3L/24 hours. Hemoglobin 8.0/23.9, received procrit per hematology. Physical Exam 2 Vital Signs: Vital Signs: Last Vital Signs Temp 97.7 F 12/09/24 11:23 Pulse 80 12/09/24 11:23 Resp 20 12/09/24 11:23 BP 170/81 H 12/09/24 11:23 Pulse Ox 91 L 12/09/24 11:23 O2 Del Method Room Air 12/09/24 11:23 O2 Flow Rate 2 12/09/24 03:33 Oxygen Flow Rate 6 12/05/24 10:24 BMI result Body Mass Index 38.5 Const: General: no acute distress and awake; No alert Resp: Effort & Inspection: labored Auscultation: crackles Cardio: Rate: regular rate Rhythm: regular rhythm Heart sounds: S1 normal heart sound present and S2 normal heart sound present GI: Palpation (GI): Soft to palpation and nontender : General: Yes no CVA tenderness Back/Spine/Pelvis: Back: no CVA tenderness Skin: Rashes: no rashes Extrem: General: Yes edema (+2 BLE edema, pitting.) and Yes pedal edema Objective Data Labs 12/09/24 06:45 12/09/24 06:45 Labs: Laboratory Results - last 24 hr 12/08/24 12/08/24 12/09/24 15:11 20:58 06:45 WBC 17.2 H RBC 2.72 L Hgb 8.0 L Hct 23.9 L MCV 87.9 MCH 29.4 MCHC 33.5 RDW 14.4 Plt Count 326 MPV 11.4 Absolute Nucleated RBC 0.000 Nucleated RBC % (auto) 0.0 Sodium 135 Potassium 3.9 Chloride 103 Carbon Dioxide 23 Anion Gap 13 BUN 90 H Creatinine 3.11 H Estim Creat Clear Calc 35.2 Estimated GFR 21 POC Glucose 213 H 225 H Random Glucose 163 H Calcium 8.5 B-Natriuretic Peptide 2471 H 12/09/24 12/09/24 07:20 11:26 WBC RBC Hgb Hct MCV MCH MCHC RDW Plt Count MPV Absolute Nucleated RBC Nucleated RBC % (auto) Sodium Potassium Chloride Carbon Dioxide Anion Gap BUN Creatinine Estim Creat Clear Calc Estimated GFR POC Glucose 164 H 226 H Random Glucose Calcium B-Natriuretic Peptide Microbiology Microbiology Results: Microbiology 12/05/24 11:31 Blood - Venous Blood Culture - Preliminary No growth after 48 hours. 12/05/24 11:00 Blood - Venous Blood Culture - Preliminary No growth after 48 hours. Procedures Date of Service Date of Service: 12/09/24 Assessment & Plan Assessment and plan (1) Acute kidney injury superimposed on CKD: Status: Acute Plan CHF exacerbation and acute anemia in setting of advanced CKD. renal function has had some improvement. recommend continuing 80mg IVP lasix BID for management of fluid overload as needs high dose of diuretics to allow for response given renal impairment. Continues to have adequate diuretic response to current dose of lasix. Goal to maintain negative fluid balance. With continued improvement patient may transition to oral diuretics, but likely needs another day or two of IV diuresis. hyponatremia- likely hypervolemic related to reduced circulating volume in CHF exacerbation- resolving with diuresis. avoid nephrotoxins daily electrolyte and renal function studies regular blood pressure checks, close I&O monitoring continue supportive care Discussed with Dr Read Time Spent With Patient Time: Total time managing care of this patient today ____ minutes. Progress Note: Quality Stroke Does the patient have a stroke diagnosis?: No
[2024-12-09 15:41] LABS: Glucose, Whole Blood 232 mg/dL (60-115)
[2024-12-09] MEDS: Insulin Glargine,Hum.rec.anlog 100 UNIT/ML 10 ML VIAL 12 UNIT SUBCUT (16:01)
--- NOTE | 2024-12-09 20:50 | HO.PM.IMPN ---
Subjective Subjective Date of Service: 12/09/24 Interval History: Much improved since yesterday Breathing much better, no longer on supplemental O2 Has been up and out of bed, ambulating on own More energy, eating well LLE improved Review of Systems Review of Systems: Yes all other systems are reviewed and are negative Physical Exam Exam: Exam: General: AOx3, no acute distress Resp: CTA bilaterally. Speaking in full sentences on RA CVS: S1, S2, RRR GI: +BS, NT, no distention Skin: Warm, dry Neuro: Cranial nerves II-XII grossly intact bilaterally. Motor grossly intact bilaterally Extremities: 1+ bilateral pitting edema Psych: Appropriate affect Vital Signs: Vital Signs: Last Vital Signs Temp 97.4 F 12/09/24 20:00 Pulse 84 12/09/24 20:00 Resp 16 12/09/24 20:00 BP 178/86 H 12/09/24 20:49 Pulse Ox 94 12/09/24 20:00 O2 Del Method Room Air 12/09/24 20:00 O2 Flow Rate 2 12/09/24 03:33 Oxygen Flow Rate 6 12/05/24 10:24 BMI result Body Mass Index 38.5 Objective Data Active Medications Acetaminophen (Acetaminophen 325 Mg Tablet) 650 mg PO Q6H PRN PRN Reason: Pain, Mild 1-3,fever,headache Last Admin: 12/07/24 16:28 Dose: 650 mg Documented By: DEANDRA Calcium Carbonate (Calcium Carbonate 750 Mg Tab.Chew) 750 mg PO Q4H PRN PRN Reason: Heartburn Heparin Sodium (Porcine) 50 (units/ Sodium Chloride 5 ml) 0 units IVFLUSH DAILY [facility] Last Admin: 12/09/24 08:04 Dose: 50 unit Documented By: CHE Cyclobenzaprine HCl (Cyclobenzaprine Hcl 10 Mg Tablet) 10 mg PO TID PRN PRN Reason: Muscle Spasm Last Admin: 12/08/24 21:50 Dose: 10 mg Documented By: ALY Dextrose (Dextrose 50 % 25 Gm/50 Ml Syringe) 25 gm IVPUSH Q15M PRN; Protocol PRN Reason: per Hypoglycemia Standing Ord. Fenofibrate (Fenofibrate 54 Mg Tablet) 54 mg PO DAILY [facility] Last Admin: 12/09/24 08:02 Dose: 54 mg Documented By: CHE Fluticasone Propionate (Fluticasone Propionate Nasal 16 Gm [place]) 2 spray NOSTRIL-B BID PRN PRN Reason: for allergies Last Admin: 12/08/24 21:50 Dose: 2 spray Documented By: ALY Furosemide (Furosemide 40 Mg/4 Ml Vial) 80 mg IVPUSH BID@0900,1800 [facility]; Protocol Last Admin: 12/09/24 17:56 Dose: 80 mg Documented By: CHE Glucose (Glucose Gel 15 Gm Gel..Gram.) 15 gm PO Q15M PRN; Protocol PRN Reason: per Hypoglycemia Standing Ord. Hydralazine HCl (Hydralazine Hcl 25 Mg Tablet) 25 mg PO TID [facility]; Protocol Last Admin: 12/09/24 20:49 Dose: 25 mg Documented By: MEDINA Cefepime HCl 1 gm/ Sodium (Chloride) 50 mls @ 100 mls/hr IV Q12H [facility] Last Infusion: 12/09/24 12:23 Dose: Infused Documented By: CHE Daptomycin 650 mg/ Sodium (Chloride) 63 mls @ 126 mls/hr IV Q48H [facility] Last Infusion: 12/08/24 10:05 Dose: Infused Documented By: RALF Insulin Glargine (Insulin Glargine,Hum.Rec.Anlog 100 Unit/Ml 10 Ml Vial) 12 unit SUBCUT DAILY@1700 [facility] Last Admin: 12/09/24 16:01 Dose: 12 unit Documented By: CHE Insulin Human Lispro (Insulin Lispro 100 Unit/Ml 3 Ml Vial) 0 unit SUBCUT QIDACHS [facility]; Protocol Last Admin: 12/09/24 16:00 Dose: 4 unit Documented By: CHE Isosorbide Mononitrate (Isosorbide Mononitrate 30 Mg Tab.Er.24h) 30 mg PO DAILY [facility]; Protocol Last Admin: 12/09/24 08:02 Dose: 30 mg Documented By: CHE Magnesium Hydroxide (Milk Of Magnesia 30 Ml Oral.Susp) 30 ml PO DAILY PRN PRN Reason: Constipation Melatonin (Melatonin 3 Mg Tablet) 6 mg PO BEDTIME PRN PRN Reason: Insomnia Multivitamins/Vitamin C (Multivitamin Tablet) 1 tab PO DAILY [facility] Last Admin: 12/09/24 08:03 Dose: 1 tab Documented By: CHE Ondansetron HCl (Ondansetron Hcl 4 Mg/2 Ml Vial) 4 mg IVPUSH Q8H PRN PRN Reason: Nausea and Vomiting Sodium Chloride (0.9 % Sodium Chloride Flush 3 Ml Syringe) 3 ml IVFLUSH QSHIFT [facility] Last Admin: 12/09/24 16:02 Dose: 3 ml Documented By: CHE Vitamin D (Cholecalciferol (Vitamin D3) 25 Mcg Tablet) 50 mcg PO BEDTIME [facility] Last Admin: 12/09/24 20:49 Dose: 50 mcg Documented By: MEDINA Labs 12/09/24 06:45 12/09/24 06:45 Labs: Laboratory Results - last 24 hr 12/08/24 12/09/24 12/09/24 20:58 06:45 07:20 MCV 87.9 MCH 29.4 MCHC 33.5 RDW 14.4 Plt Count 326 MPV 11.4 Absolute Nucleated RBC 0.000 Nucleated RBC % (auto) 0.0 Anion Gap 13 Estim Creat Clear Calc 35.2 Estimated GFR 21 POC Glucose 225 H 164 H Random Glucose 163 H Calcium 8.5 B-Natriuretic Peptide 2471 H 12/09/24 12/09/24 11:26 15:25 MCV MCH MCHC RDW Plt Count MPV Absolute Nucleated RBC Nucleated RBC % (auto) Anion Gap Estim Creat Clear Calc Estimated GFR POC Glucose 226 H 232 H Random Glucose Calcium B-Natriuretic Peptide Assessment and Plan (1) Acute exacerbation of congestive heart failure: Status: Acute (2) EZRA (acute kidney injury): Status: Acute (3) Acute respiratory failure with hypoxia: Status: Acute Plan Pt is a 54-year-old male with a PMH significant for?HFpEF, insulin-dependent type 2 diabetes, HLD, HTN, CKD 3, NANCY, and hx of osteo on daptomycin who presents to the ED from PCP clinic with severe SOB and difficulty breathing x2 days. Pt is admitted to the hospital for treatment and further evaluation of acute hypoxic respiratory failure in the setting of CHF exacerbation and acute on chronic anemia requiring transfusion. Acute hypoxic respiratory failure in the setting of HFpEF exacerbation Pt with severe SOB, SORTO, edema, hypoxia of 86% on RA, CXR with pulmonary edema, BNP elevated; significant increased work of breathing Improving with aggressive diuresing Continue Lasix 80 mg b.i.d. per nephrology; has diuresed over 7L during stay Monitor BMP, BNP, I/O Low-salt diet Monitor on telemetry Titrate supplemental O2 >92, wean as tolerated Repeat echo showed LVEF 55-60%, moderately dilated left and right atrium Acute on chronic anemia of chronic disease Initial H&H 5.3/16.1 at time of presentation Pt does not appear to be actively bleeding or have hemolysis: stool negative for occult blood x2 Pt transfused 2 units PRBCs in the ED on 12/05 and another unit on 12/07 Hematology consulted, feel Likely multifactorial: contributing factors are recent infection/osteomyelitis, delusional from heart failure, and EZRA from prior admission Pt received Procrit 20,000 units on 12/07; hgb improved to 8.0 Monitor H&H Question of pneumonia CXR showing pulmonary edema vs diffuse pneumonia Denies cough, no fever Meets SIRS with tachypnea and leukocytosis; lactic acid WNL Received empiric cefepime x5 days, will change to ceftriaxone x2 days CT of chest showed multifocal irregular airspace opacities in all lobes of both lungs Pulmonary consult recommends continued diuresing as pattern appears more edema than infectious MRSA nasal swab negative, procalcitonin 0.88 Hx of osteomyelitis left foot 5th digit Currently being treated with daptomycin every other day, end date 12/28/2024 Continue dapto HLD Hold statin while on dapto HTN Continue hydralazine, carvedilol, and clonidine Insulin-dependent type 2 diabetes Sliding-scale insulin, Lantus, diabetic diet NANCY CPAP at night Full Code DVT Prophylaxis: Pneumatic compression due to acute anemia Pt will requires continued hospitalization for IV diuresing for hypoxia in the setting of CHF exacerbation and acute on chronic anemia.. Quality Stroke Does the patient have a stroke diagnosis?: No VTE Prior VTE?: No VTE Risk Level:: Medical - moderate - high VTE Device Contraindication: N/A - Device Ordered VTE Drug Contraindication: Treatment Not Indicated
[2024-12-09 21:08] LABS: Glucose, Whole Blood 206 mg/dL (60-115)
[2024-12-10] VITALS (8 sets, daily range): BP systolic 136–156; BP diastolic 65–78; PULSE 66–80; RESP 14–16; TEMP 36.4–37.1; O2SAT 92–98
[2024-12-10 07:27] LABS: Glucose, Whole Blood 157 mg/dL (60-115)
[2024-12-10 08:13] LABS: Hematocrit 22.1 % (42.0-52.0); Hemoglobin 7.1 g/dl (14.0-18.0); Mean Corpuscular HGB Conc 32.1 g/dl (31.0-36.0); Mean Corpuscular Hemoglobin 28.9 pg (27.0-33.0); Mean Corpuscular Volume 89.8 fL (80.0-98.0); NRBC Abs Auto 0.000 X10*3/uL (0.0-0.012); NRBC Pct Auto 0.0 /100WBC (0.0-0.2); Platelet Count 273 X10*3/uL (160-400); Red Blood Count 2.46 X10*6/uL (4.60-5.80); White Blood Count 15.7 X10*3/uL (4.8-10.8)
[2024-12-10 08:28] LABS: Anion Gap 17 (12-20); Blood Urea Nitrogen 88 mg/dL (9-16); Calcium 8.4 mg/dL (8.4-10.2); Carbon Dioxide 23 mmol/L (22-29); Chloride 100 mmol/L (96-108); Creatinine Clr Calc Pharmacy 30.5; Estimated Glomerular Filt Rate 18; Potassium 4.3 mmol/L (3.3-5.1); Sodium 136 mmol/L (135-145)
[2024-12-10] MEDS: Furosemide 40 MG/4 ML VIAL 80 MG IVPUSH (08:38)
[2024-12-10] MEDS: 0.9 % Sodium Chloride Flush 3 ML SYRINGE IVFLUSH ×2 (08:39→16:08)
[2024-12-10] MEDS: Heparin Sodium,Porcine Flush 50 UNITS, 0.9 % Sodium Chloride Flush 5 ML IVFLUSH (08:40)
[2024-12-10 11:51] LABS: Glucose, Whole Blood 241 mg/dL (60-115)
--- NOTE | 2024-12-10 13:50 | P.CDIM_ITS ---
PROVIDER RESPONSE TEXT: To clarify, the appropriate diagnosis supported by the clinical indicators: Clinically unable to determine (explain): Pt's anemia still being worked up. Does not appear to be from active bleeding or hemolysis. QUERY TEXT: PHYSICIAN'S DOCUMENTATION REQUEST Date of Query: 12/07/2024 08:28 AM EDT Patient Name: River Luque Admit Date: 12/05/2024 Dear Suresh SKELTON, A review of the medical record indicates additional documentation may be needed. Please review below and update the documentation accordingly. Clinical Indicators: ED: Black stools, acute on chronic anemia, shortness of breath, malaise and weakness. H/H 5.3/16.1 Transfused 2 units PRBC BP 125/58 L Patient stopped taking his Iron and now feels better. GI consult 12/06/24 - Recommend blood transfusions as ordered. Dyspnea for a few days, worsening. Recommend workup for acute bleed. Based on the above, could you clarify which of the following is the most likely type of anemia you are evaluating, treating, and/or monitoring? Acute blood loss anemia Acute blood loss anemia with baseline chronic anemia (specify type) Iron deficiency anemia due to chronic blood loss possible, suspected, cannot rule out etc. Iron deficiency anemia due to acute on chronic blood loss probable, suspected, possible, etc. Other (explain) Clinically unable to determine (explain) Thank you, Cheryl Jones, CCS, CDIS Use of terms such as suspected, likely, concern for, or probable (associated with a specific diagnosis that is being evaluated, monitored, or treated as if it exists) are acceptable and can be coded in the inpatient setting, when documented at the time of discharge. Please use your independent medical judgment in providing your response. THIS QUERY IS PART OF THE PERMANENT MEDICAL RECORD
--- NOTE | 2024-12-10 14:54 | P.PNIM_ITS ---
Subjective Subjective Date of Service: 12/10/24 Interval History: Feels much better Breathing improved Continues to be on RA Ambulating around room with minimal difficulty H&H dropped again: 8.0-->7.1 Creatinine bumped up: 3.11-->3.59 Review of Systems Review of Systems: Yes all other systems are reviewed and are negative Physical Exam 2 Exam: Exam: General: AOx3, no acute distress. Seen out of bed in recliner Resp: CTA bilaterally. Speaking in full sentences on RA CVS: S1, S2, RRR GI: +BS, NT, no distention Skin: Warm, dry Neuro: Cranial nerves II-XII grossly intact bilaterally. Motor grossly intact bilaterally Extremities: 1+ bilateral pitting edema Psych: Appropriate affect Vital Signs: Vital Signs: Last Vital Signs Temp 97.5 F 12/10/24 11:49 Pulse 66 12/10/24 11:49 Resp 16 12/10/24 11:49 BP 136/67 12/10/24 11:49 Pulse Ox 94 12/10/24 11:49 O2 Del Method Room Air 12/10/24 11:49 O2 Flow Rate 2 12/09/24 03:33 Oxygen Flow Rate 6 12/05/24 10:24 BMI result Body Mass Index 38.5 Objective Data Active Medications Acetaminophen (Acetaminophen 325 Mg Tablet) 650 mg PO Q6H PRN PRN Reason: Pain, Mild 1-3,fever,headache Last Admin: 12/07/24 16:28 Dose: 650 mg Documented By: DEANDRA Calcium Carbonate (Calcium Carbonate 750 Mg Tab.Chew) 750 mg PO Q4H PRN PRN Reason: Heartburn Carvedilol (Carvedilol 25 Mg Tablet) 25 mg PO BID [facility]; Protocol Last Admin: 12/10/24 08:38 Dose: 25 mg Documented By: CHE Ceftriaxone Sodium (Ceftriaxone Sodium 1 Gm Vial) 1 gm IVPUSH Q24H [facility] Stop: 12/11/24 09:01 Last Admin: 12/10/24 08:39 Dose: 1 gm Documented By: CHE Clonidine HCl (Clonidine Hcl 0.2 Mg Tablet) 0.2 mg PO BID [facility]; Protocol Last Admin: 12/10/24 08:38 Dose: 0.2 mg Documented By: CHE Heparin Sodium (Porcine) 50 (units/ Sodium Chloride 5 ml) 0 units IVFLUSH DAILY [facility] Last Admin: 12/10/24 08:40 Dose: 50 unit Documented By: CHE Cyclobenzaprine HCl (Cyclobenzaprine Hcl 10 Mg Tablet) 10 mg PO TID PRN PRN Reason: Muscle Spasm Last Admin: 12/08/24 21:50 Dose: 10 mg Documented By: ALY Dextrose (Dextrose 50 % 25 Gm/50 Ml Syringe) 25 gm IVPUSH Q15M PRN; Protocol PRN Reason: per Hypoglycemia Standing Ord. Epoetin Freddie-epbx (Epoetin Freddie-Epbx 10,000 Unit/Ml Vial) 10,000 unit IVPUSH ONCE ONE Stop: 12/10/24 14:35 Fenofibrate (Fenofibrate 54 Mg Tablet) 54 mg PO DAILY [facility] Last Admin: 12/10/24 08:38 Dose: 54 mg Documented By: CHE Fluticasone Propionate (Fluticasone Propionate Nasal 16 Gm [place]) 2 spray NOSTRIL-B BID PRN PRN Reason: for allergies Last Admin: 12/08/24 21:50 Dose: 2 spray Documented By: ALY Glucose (Glucose Gel 15 Gm Gel..Gram.) 15 gm PO Q15M PRN; Protocol PRN Reason: per Hypoglycemia Standing Ord. Hydralazine HCl (Hydralazine Hcl 50 Mg Tablet) 50 mg PO TID [facility]; Protocol Last Admin: 12/10/24 08:38 Dose: 50 mg Documented By: CHE Cefepime HCl 1 gm/ Sodium (Chloride) 50 mls @ 100 mls/hr IV Q12H [facility] On Hold: 12/10/24 08:00 Last Infusion: 12/10/24 01:48 Dose: Infused Documented By: MEDINA Daptomycin 650 mg/ Sodium (Chloride) 63 mls @ 126 mls/hr IV Q48H [facility] Last Infusion: 12/10/24 09:14 Dose: Infused Documented By: CHE Insulin Glargine (Insulin Glargine,Hum.Rec.Anlog 100 Unit/Ml 10 Ml Vial) 12 unit SUBCUT DAILY@1700 [facility] Last Admin: 12/09/24 16:01 Dose: 12 unit Documented By: CHE Insulin Human Lispro (Insulin Lispro 100 Unit/Ml 3 Ml Vial) 0 unit SUBCUT QIDACHS [facility]; Protocol Last Admin: 12/10/24 12:07 Dose: 4 unit Documented By: CHE Isosorbide Mononitrate (Isosorbide Mononitrate 30 Mg Tab.Er.24h) 30 mg PO DAILY [facility]; Protocol Last Admin: 12/10/24 08:38 Dose: 30 mg Documented By: CHE Magnesium Hydroxide (Milk Of Magnesia 30 Ml Oral.Susp) 30 ml PO DAILY PRN PRN Reason: Constipation Melatonin (Melatonin 3 Mg Tablet) 6 mg PO BEDTIME PRN PRN Reason: Insomnia Last Admin: 12/09/24 21:48 Dose: 6 mg Documented By: MEDINA Multivitamins/Vitamin C (Multivitamin Tablet) 1 tab PO DAILY [facility] Last Admin: 12/10/24 08:38 Dose: 1 tab Documented By: CHE Ondansetron HCl (Ondansetron Hcl 4 Mg/2 Ml Vial) 4 mg IVPUSH Q8H PRN PRN Reason: Nausea and Vomiting Polyethylene Glycol (Polyethylene Glycol 3350 17 Gm Powd.Pack) 17 gm PO DAILY PRN PRN Reason: Constipation Sodium Chloride (0.9 % Sodium Chloride Flush 3 Ml Syringe) 3 ml IVFLUSH QSHIFT [facility] Last Admin: 12/10/24 08:39 Dose: 3 ml Documented By: CHE Vitamin D (Cholecalciferol (Vitamin D3) 25 Mcg Tablet) 50 mcg PO BEDTIME [facility] Last Admin: 12/09/24 20:49 Dose: 50 mcg Documented By: MEDINA Labs 12/10/24 07:27 12/10/24 07:27 Labs: Laboratory Results - last 24 hr 12/09/24 12/09/24 12/10/24 15:25 21:00 07:21 MCV MCH MCHC RDW Plt Count MPV Absolute Nucleated RBC Nucleated RBC % (auto) Anion Gap Estim Creat Clear Calc Estimated GFR POC Glucose 232 H 206 H 157 H Random Glucose Calcium 12/10/24 12/10/24 07:27 11:46 MCV 89.8 MCH 28.9 MCHC 32.1 RDW 14.4 Plt Count 273 MPV 11.4 Absolute Nucleated RBC 0.000 Nucleated RBC % (auto) 0.0 Anion Gap 17 Estim Creat Clear Calc 30.5 Estimated GFR 18 POC Glucose 241 H Random Glucose 163 H Calcium 8.4 Microbiology Microbiology Results: Microbiology 12/05/24 11:31 Blood Culture - Final Blood - Venous No growth after 5 days. 12/05/24 11:00 Blood Culture - Final Blood - Venous No growth after 5 days. Assessment and Plan (1) Acute respiratory failure with hypoxia: Status: Acute (2) Acute exacerbation of congestive heart failure: Status: Acute Plan Pt is a 54-year-old male with a PMH significant for?HFpEF, insulin-dependent type 2 diabetes, HLD, HTN, CKD 3, NANCY, and hx of osteo on daptomycin who presents to the ED from PCP clinic with severe SOB and difficulty breathing x2 days. Pt is admitted to the hospital for treatment and further evaluation of acute hypoxic respiratory failure in the setting of CHF exacerbation and acute on chronic anemia requiring transfusion. Acute hypoxic respiratory failure in the setting of HFpEF exacerbation Pt with severe SOB, SORTO, edema, hypoxia of 86% on RA, CXR with pulmonary edema, BNP elevated; significant increased work of breathing Improving greatly with aggressive diuresing of Lasix 80 mg IV bid; no longer on O2 Has diuresed over 8L during stay Will switch to Lasix 40 mg p.o. bid Monitor BMP, BNP, I/O Low-salt diet Monitor on telemetry Repeat echo showed LVEF 55-60%, moderately dilated left and right atrium Acute on chronic anemia of chronic disease Initial H&H 5.3/16.1 at time of presentation Pt does not appear to be actively bleeding: stool negative for occult blood x2; hemolysis workup negative Pt transfused 2 units PRBCs in the ED on 12/05 and another unit on 12/07 Hematology consulted, feel likely multifactorial: contributing factors are recent infection/osteomyelitis, delutional from heart failure, and EZRA from prior admission Received Procrit 20,000 units subcut on 12/07; hgb improved to 8.0 H&H today dropped to 7.1 Will give additional 10,000 units IV per hematology recommendations Monitor H&H closely Question of pneumonia CXR showing pulmonary edema vs diffuse pneumonia Denies cough, no fever Meets SIRS with tachypnea and leukocytosis; lactic acid WNL Received empiric cefepime x5 days, will change to ceftriaxone x2 days CT of chest showed multifocal irregular airspace opacities in all lobes of both lungs Pulmonary consult recommends continued diuresing as pattern appears more edema than infectious MRSA nasal swab negative, procalcitonin 0.88 EZRA on CKD 3 Initial creatinine 4.18, improved to 3.11 with aggressive diuresing Creatinine worsened today to 3.59 Will switch to p.o. Lasix Nephrology following Follow creatinine Hx of osteomyelitis left foot 5th digit Currently being treated with daptomycin every other day, end date 12/28/2024 Continue dapto HLD Hold statin while on dapto HTN Continue hydralazine, carvedilol, and clonidine Insulin-dependent type 2 diabetes Sliding-scale insulin, Lantus, diabetic diet NANCY CPAP at night Full Code DVT Prophylaxis: Pneumatic compression due to acute anemia Pt will requires continued hospitalization for IV diuresing for hypoxia in the setting of CHF exacerbation and acute on chronic anemia. Quality Stroke Does the patient have a stroke diagnosis?: No VTE Prior VTE?: No VTE Risk Level:: Medical - moderate - high VTE Device Contraindication: N/A - Device Ordered VTE Drug Contraindication: Treatment Not Indicated
[2024-12-10 16:02] LABS: Glucose, Whole Blood 215 mg/dL (60-115)
[2024-12-10] MEDS: Insulin Glargine,Hum.rec.anlog 100 UNIT/ML 10 ML VIAL 12 UNIT SUBCUT (16:07)
[2024-12-10 20:47] LABS: Glucose, Whole Blood 195 mg/dL (60-115)
[2024-12-11] VITALS (10 sets, daily range): BP systolic 133–145; BP diastolic 60–73; PULSE 66–79; RESP 17–19; TEMP 36.4–37.7; O2SAT 92–98
[2024-12-11 07:19] LABS: Glucose, Whole Blood 132 mg/dL (60-115)
[2024-12-11 07:56] LABS: MANUAL DIFF FLAG NO
[2024-12-11 08:01] LABS: Imm Gran Abs Auto 0.37 X10*3/uL (0.00-0.03); Imm Gran Pct Auto 2.3 % (0.0-0.4); Lymphocytes Absolute Auto 1.1 X10*3/uL (1.2-4.9); Mean Corpuscular HGB Conc 33.8 g/dl (31.0-36.0); Mean Corpuscular Hemoglobin 29.8 pg (27.0-33.0); Mean Corpuscular Volume 88.2 fL (80.0-98.0); NRBC Abs Auto 0.020 X10*3/uL (0.0-0.012); NRBC Pct Auto 0.1 /100WBC (0.0-0.2); Platelet Count 262 X10*3/uL (160-400); Red Blood Count 2.28 X10*6/uL (4.60-5.80); White Blood Count 15.8 X10*3/uL (4.8-10.8)
[2024-12-11 08:08] LABS: Anion Gap 14 (12-20); Blood Urea Nitrogen 96 mg/dL (9-16); Calcium 8.3 mg/dL (8.4-10.2); Carbon Dioxide 22 mmol/L (22-29); Chloride 101 mmol/L (96-108); Creatinine Clr Calc Pharmacy 30.4; Estimated Glomerular Filt Rate 18; Potassium 4.8 mmol/L (3.3-5.1); Sodium 132 mmol/L (135-145)
[2024-12-11 08:20] LABS: Hemoglobin 6.8 g/dl (14.0-18.0)
[2024-12-11 08:21] LABS: Hematocrit 20.1 % (42.0-52.0)
[2024-12-11] MEDS: Heparin Sodium,Porcine Flush 50 UNITS, 0.9 % Sodium Chloride Flush 5 ML IVFLUSH (10:15)
[2024-12-11] MEDS: 0.9 % Sodium Chloride Flush 3 ML SYRINGE IVFLUSH ×3 (10:16→21:00)
[2024-12-11 11:27] LABS: Glucose, Whole Blood 230 mg/dL (60-115)
[2024-12-11 16:14] LABS: Glucose, Whole Blood 176 mg/dL (60-115)
[2024-12-11] MEDS: Insulin Glargine,Hum.rec.anlog 100 UNIT/ML 10 ML VIAL 12 UNIT SUBCUT (16:55)
--- NOTE | 2024-12-11 18:46 | P.PNIM_ITS ---
Subjective Subjective Date of Service: 12/11/24 Interval History: H&H again drop to 6.8/20.1; Will transfuse 1 unit PRBCs Pt reports feels better with increased energy and less SOB Continues to ambulate on his own, and no longer oxygen dependent Some lightheadedness with standing No cough Denies nausea, vomiting, abdominal pain Review of Systems Review of Systems: Yes all other systems are reviewed and are negative Physical Exam 2 Exam: Exam: General: AOx3, no acute distress Resp: CTA bilaterally CVS: S1, S2, RRR GI: +BS, NT, no distention Skin: Warm, dry Neuro: Cranial nerves II-XII grossly intact bilaterally. Motor grossly intact bilaterally Extremities: 2+ bilateral pitting edema Psych: Appropriate affect Vital Signs: Vital Signs: Last Vital Signs Temp 97.9 F 12/11/24 15:17 Pulse 66 12/11/24 15:17 Resp 18 12/11/24 15:17 BP 136/63 12/11/24 15:17 Pulse Ox 93 12/11/24 15:17 O2 Del Method Room Air 12/11/24 15:17 O2 Flow Rate 2 12/09/24 03:33 Oxygen Flow Rate 6 12/05/24 10:24 BMI result Body Mass Index 38.5 Objective Data Active Medications Acetaminophen (Acetaminophen 325 Mg Tablet) 650 mg PO Q6H PRN PRN Reason: Pain, Mild 1-3,fever,headache Last Admin: 12/11/24 04:12 Dose: 650 mg Documented By: MEDINA Calcium Carbonate (Calcium Carbonate 750 Mg Tab.Chew) 750 mg PO Q4H PRN PRN Reason: Heartburn Carvedilol (Carvedilol 25 Mg Tablet) 25 mg PO BID [facility]; Protocol Last Admin: 12/11/24 10:16 Dose: 25 mg Documented By: CHE Clonidine HCl (Clonidine Hcl 0.2 Mg Tablet) 0.2 mg PO BID [facility]; Protocol Last Admin: 12/11/24 10:16 Dose: 0.2 mg Documented By: CHE Heparin Sodium (Porcine) 50 (units/ Sodium Chloride 5 ml) 0 units IVFLUSH DAILY [facility] Last Admin: 12/11/24 10:15 Dose: 50 unit Documented By: CHE Cyclobenzaprine HCl (Cyclobenzaprine Hcl 10 Mg Tablet) 10 mg PO TID PRN PRN Reason: Muscle Spasm Last Admin: 12/08/24 21:50 Dose: 10 mg Documented By: ALY Dextrose (Dextrose 50 % 25 Gm/50 Ml Syringe) 25 gm IVPUSH Q15M PRN; Protocol PRN Reason: per Hypoglycemia Standing Ord. Fenofibrate (Fenofibrate 54 Mg Tablet) 54 mg PO DAILY [facility] Last Admin: 12/11/24 10:16 Dose: 54 mg Documented By: CHE Fluticasone Propionate (Fluticasone Propionate Nasal 16 Gm [place]) 2 spray NOSTRIL-B BID PRN PRN Reason: for allergies Last Admin: 12/08/24 21:50 Dose: 2 spray Documented By: ALY Glucose (Glucose Gel 15 Gm Gel..Gram.) 15 gm PO Q15M PRN; Protocol PRN Reason: per Hypoglycemia Standing Ord. Hydralazine HCl (Hydralazine Hcl 50 Mg Tablet) 50 mg PO TID [facility]; Protocol Last Admin: 12/11/24 15:13 Dose: 50 mg Documented By: CHE Cefepime HCl 1 gm/ Sodium (Chloride) 50 mls @ 100 mls/hr IV Q12H [facility] On Hold: 12/10/24 08:00 Last Infusion: 12/10/24 01:48 Dose: Infused Documented By: MEDINA Daptomycin 650 mg/ Sodium (Chloride) 63 mls @ 126 mls/hr IV Q48H [facility] Last Infusion: 12/10/24 09:14 Dose: Infused Documented By: CHE Insulin Glargine (Insulin Glargine,Hum.Rec.Anlog 100 Unit/Ml 10 Ml Vial) 12 unit SUBCUT DAILY@1700 [facility] Last Admin: 12/11/24 16:55 Dose: 12 unit Documented By: CHE Insulin Human Lispro (Insulin Lispro 100 Unit/Ml 3 Ml Vial) 0 unit SUBCUT QIDACHS [facility]; Protocol Last Admin: 12/11/24 16:56 Dose: 2 unit Documented By: CHE Isosorbide Mononitrate (Isosorbide Mononitrate 30 Mg Tab.Er.24h) 30 mg PO DAILY [facility]; Protocol Last Admin: 12/11/24 10:15 Dose: 30 mg Documented By: CHE Magnesium Hydroxide (Milk Of Magnesia 30 Ml Oral.Susp) 30 ml PO DAILY PRN PRN Reason: Constipation Melatonin (Melatonin 3 Mg Tablet) 6 mg PO BEDTIME PRN PRN Reason: Insomnia Last Admin: 12/09/24 21:48 Dose: 6 mg Documented By: MEDINA Multivitamins/Vitamin C (Multivitamin Tablet) 1 tab PO DAILY [facility] Last Admin: 12/11/24 10:15 Dose: 1 tab Documented By: CHE Ondansetron HCl (Ondansetron Hcl 4 Mg/2 Ml Vial) 4 mg IVPUSH Q8H PRN PRN Reason: Nausea and Vomiting Polyethylene Glycol (Polyethylene Glycol 3350 17 Gm Powd.Pack) 17 gm PO DAILY PRN PRN Reason: Constipation Sodium Chloride (0.9 % Sodium Chloride Flush 3 Ml Syringe) 3 ml IVFLUSH QSHIFT [facility] Last Admin: 12/11/24 15:13 Dose: 3 ml Documented By: CHE Vitamin D (Cholecalciferol (Vitamin D3) 25 Mcg Tablet) 50 mcg PO BEDTIME [facility] Last Admin: 12/10/24 20:57 Dose: 50 mcg Documented By: MEDINA Labs 12/11/24 07:22 12/11/24 07:06 Labs: Laboratory Results - last 24 hr 12/10/24 12/11/24 12/11/24 20:40 07:06 07:16 MCV MCH MCHC RDW Plt Count MPV Immature Gran % (Auto) Neut % (Auto) Lymph % (Auto) [place] % (Auto) Eos % (Auto) Baso % (Auto) Lymph # (Auto) [place] # (Auto) Eos # (Auto) Baso # (Auto) Abs Immat Gran (auto) Absolute Neuts (auto) Absolute Nucleated RBC Nucleated RBC % (auto) Hold Purple Top Anion Gap 14 Estim Creat Clear Calc 30.4 Estimated GFR 18 POC Glucose 195 H 132 H Random Glucose 137 H Calcium 8.3 L Blood Type Antibody Screen Crossmatch 12/11/24 12/11/24 12/11/24 07:22 11:24 11:57 MCV 88.2 MCH 29.8 MCHC 33.8 RDW 14.4 Plt Count 262 MPV 11.4 Immature Gran % (Auto) 2.3 H Neut % (Auto) 79.5 H Lymph % (Auto) 6.7 L [place] % (Auto) 5.8 Eos % (Auto) 5.4 H Baso % (Auto) 0.3 Lymph # (Auto) 1.1 L [place] # (Auto) 0.9 Eos # (Auto) 0.9 H Baso # (Auto) 0.1 Abs Immat Gran (auto) 0.37 H Absolute Neuts (auto) 12.5 H Absolute Nucleated RBC 0.020 H Nucleated RBC % (auto) 0.1 Hold Purple Top SEE NOTE Anion Gap Estim Creat Clear Calc Estimated GFR POC Glucose 230 H Random Glucose Calcium Blood Type A Positive Antibody Screen NEGATIVE Crossmatch See Detail 12/11/24 16:11 MCV MCH MCHC RDW Plt Count MPV Immature Gran % (Auto) Neut % (Auto) Lymph % (Auto) [place] % (Auto) Eos % (Auto) Baso % (Auto) Lymph # (Auto) [place] # (Auto) Eos # (Auto) Baso # (Auto) Abs Immat Gran (auto) Absolute Neuts (auto) Absolute Nucleated RBC Nucleated RBC % (auto) Hold Purple Top Anion Gap Estim Creat Clear Calc Estimated GFR POC Glucose 176 H Random Glucose Calcium Blood Type Antibody Screen Crossmatch Assessment and Plan (1) Acute exacerbation of congestive heart failure: Status: Acute Plan Pt is a 54-year-old male with a PMH significant for?HFpEF, insulin-dependent type 2 diabetes, HLD, HTN, CKD 3, NANCY, and hx of osteo on daptomycin who presents to the ED from PCP clinic with severe SOB and difficulty breathing x2 days. Pt is admitted to the hospital for treatment and further evaluation of acute hypoxic respiratory failure in the setting of CHF exacerbation and acute on chronic anemia requiring transfusion. Acute hypoxic respiratory failure in the setting of HFpEF exacerbation Pt with severe SOB, SORTO, edema, hypoxia of 86% on RA, CXR with pulmonary edema, BNP elevated; significant increased work of breathing Improving greatly with aggressive diuresing of Lasix 80 mg IV bid; no longer on O2 Has diuresed over 8L during stay Will switch to Lasix 40 mg p.o. bid Monitor BMP, BNP, I/O Low-salt diet Monitor on telemetry Repeat echo showed LVEF 55-60%, moderately dilated left and right atrium Acute on chronic anemia of chronic disease Initial H&H 5.3/16.1 at time of presentation Pt does not appear to be actively bleeding: stool negative for occult blood x2; hemolysis workup negative Pt transfused 2 units PRBCs in the ED on 12/05, another unit on 12/07, and another on 12/11 Hematology consulted, feel likely multifactorial: contributing factors are recent infection/osteomyelitis, delutional from heart failure, and EZRA from prior admission Received Procrit 20,000 units subcut on 12/07; hgb improved to 8.0; hbg dropped to 7.1 on 12/10; additional 10,000 units IV Procrit given per hematology recommendations Will need bone marrow biopsy outpatient Goal is to have H&H above 8.0 Monitor H&H closely Question of pneumonia CXR showing pulmonary edema vs diffuse pneumonia Denies cough, no fever Meets SIRS with tachypnea and leukocytosis; lactic acid WNL Completed course of IV abx in the ED CT of chest showed multifocal irregular airspace opacities in all lobes of both lungs Pulmonary consult recommends continued diuresing as pattern appears more edema than infectious MRSA nasal swab negative, procalcitonin 0.88 EZRA on CKD 3 Initial creatinine 4.18, improved to 3.11 with aggressive diuresing Creatinine worsened today to 3.59 Will switch to p.o. Lasix Nephrology following Follow creatinine Hx of osteomyelitis left foot 5th digit Currently being treated with daptomycin every other day, end date 12/28/2024 Continue dapto HLD Hold statin while on dapto HTN Continue hydralazine, carvedilol, and clonidine Insulin-dependent type 2 diabetes Sliding-scale insulin, Lantus, diabetic diet NANCY CPAP at night Full Code DVT Prophylaxis: Pneumatic compression due to acute anemia Pt will requires continued hospitalization for IV diuresing for hypoxia in the setting of CHF exacerbation and acute on chronic anemia. If pt's hbg stays above 8.0, pt can likely be discharged to [facility] tomorrow. Quality Stroke Does the patient have a stroke diagnosis?: No VTE Prior VTE?: No VTE Risk Level:: Medical - moderate - high VTE Device Contraindication: N/A - Device Ordered VTE Drug Contraindication: Treatment Not Indicated
[2024-12-11 20:47] LABS: Glucose, Whole Blood 184 mg/dL (60-115)
[2024-12-12] VITALS (7 sets, daily range): BP systolic 133–164; BP diastolic 56–71; PULSE 67–85; RESP 16–20; TEMP 36.4–37.1; O2SAT 90–97
[2024-12-12 06:59] LABS: Glucose, Whole Blood 94 mg/dL (60-115)
[2024-12-12 08:12] LABS: Hematocrit 24.1 % (42.0-52.0); Hemoglobin 7.9 g/dl (14.0-18.0); Mean Corpuscular HGB Conc 32.8 g/dl (31.0-36.0); Mean Corpuscular Hemoglobin 28.8 pg (27.0-33.0); Mean Corpuscular Volume 88.0 fL (80.0-98.0); NRBC Abs Auto 0.020 X10*3/uL (0.0-0.012); NRBC Pct Auto 0.1 /100WBC (0.0-0.2); Platelet Count 284 X10*3/uL (160-400); Red Blood Count 2.74 X10*6/uL (4.60-5.80); White Blood Count 15.2 X10*3/uL (4.8-10.8)
[2024-12-12 08:39] LABS: Anion Gap 15 (12-20); Blood Urea Nitrogen 92 mg/dL (9-16); Calcium 8.7 mg/dL (8.4-10.2); Carbon Dioxide 22 mmol/L (22-29); Chloride 101 mmol/L (96-108); Creatinine Clr Calc Pharmacy 29.9; Estimated Glomerular Filt Rate 18; Potassium 4.9 mmol/L (3.3-5.1); Sodium 133 mmol/L (135-145)
[2024-12-12] MEDS: Heparin Sodium,Porcine Flush 50 UNITS, 0.9 % Sodium Chloride Flush 5 ML IVFLUSH (08:51)
[2024-12-12] MEDS: 0.9 % Sodium Chloride Flush 3 ML SYRINGE IVFLUSH ×3 (09:21→20:12)
[2024-12-12 11:03] LABS: Glucose, Whole Blood 203 mg/dL (60-115)
--- NOTE | 2024-12-12 11:09 | MHC.CM.PN ---
Patient has not yet been medically cleared for dc (2 IV ABT); PT is recommending STR and CM will continue to follow.
[2024-12-12] MEDS: Furosemide 40 MG/4 ML VIAL IVPUSH (12:00)
--- NOTE | 2024-12-12 12:31 | P.PNNP_ITS ---
Subjective Subjective Date of Service: 12/12/24 Interval history: Here for fluid overload/CHF exacerbation, acute anemia requiring multiple blood transfusions. creatinine stable. patient reports breathing remains uncomfortable but much better than when he came in. Swelling still there but improving. continues to diurese well, ~2.5L/24 hours- last dose of IV lasix on 12/10, transitioned to PO lasix 40mg PO BID (home dose). Hemoglobin 7.9 & 24.1, received procrit x2 last week per hematology. Physical Exam 2 Vital Signs: Vital Signs: Last Vital Signs Temp 97.6 F 12/12/24 11:23 Pulse 70 12/12/24 11:23 Resp 20 12/12/24 11:23 BP 146/65 H 12/12/24 11:23 Pulse Ox 92 12/12/24 11:23 O2 Del Method Room Air 12/12/24 11:23 O2 Flow Rate 2 12/09/24 03:33 Oxygen Flow Rate 6 12/05/24 10:24 BMI result Body Mass Index 38.5 Const: General: no acute distress and awake; No alert Resp: Effort & Inspection: labored Auscultation: crackles Cardio: Rate: regular rate Rhythm: regular rhythm Heart sounds: S1 normal heart sound present and S2 normal heart sound present GI: Palpation (GI): Soft to palpation and nontender : General: Yes no CVA tenderness Back/Spine/Pelvis: Back: no CVA tenderness Skin: Rashes: no rashes Extrem: General: Yes edema (+1 BLE edema, pitting.) and Yes pedal edema Objective Data Labs 12/12/24 07:40 12/12/24 07:40 Labs: Laboratory Results - last 24 hr 12/11/24 12/11/24 12/11/24 11:57 16:11 20:41 WBC RBC Hgb Hct MCV MCH MCHC RDW Plt Count MPV Absolute Nucleated RBC Nucleated RBC % (auto) Sodium Potassium Chloride Carbon Dioxide Anion Gap BUN Creatinine Estim Creat Clear Calc Estimated GFR POC Glucose 176 H 184 H Random Glucose Calcium Blood Type A Positive Antibody Screen NEGATIVE Crossmatch See Detail 12/12/24 12/12/24 12/12/24 06:56 07:40 10:59 WBC 15.2 H RBC 2.74 L D Hgb 7.9 L Hct 24.1 L MCV 88.0 MCH 28.8 MCHC 32.8 RDW 14.8 Plt Count 284 MPV 11.0 Absolute Nucleated RBC 0.020 H Nucleated RBC % (auto) 0.1 Sodium 133 L Potassium 4.9 Chloride 101 Carbon Dioxide 22 Anion Gap 15 BUN 92 H Creatinine 3.66 H Estim Creat Clear Calc 29.9 Estimated GFR 18 POC Glucose 94 203 H Random Glucose 90 Calcium 8.7 Blood Type Antibody Screen Crossmatch Microbiology Microbiology Results: Microbiology 12/05/24 11:31 Blood - Venous Blood Culture - Final No growth after 5 days. 12/05/24 11:00 Blood - Venous Blood Culture - Final No growth after 5 days. Procedures Date of Service Date of Service: 12/12/24 Assessment & Plan Assessment and plan (1) Acute kidney injury superimposed on CKD: Status: Acute Plan CHF exacerbation and acute anemia in setting of advanced CKD. renal function has had some improvement. recommend continuing lasix 40mg PO BID and 1x dose of 40mg IVP lasix today- patient's sodium is slightly low again after normalizing and remains edematous with crackles. hyponatremia- likely hypervolemic related to reduced circulating volume in CHF exacerbation- continue diuretic plan as above. avoid nephrotoxins daily electrolyte and renal function studies regular blood pressure checks, close I&O monitoring continue supportive care Discussed with Dr Goins. Time Spent With Patient Time: Total time managing care of this patient today ____ minutes. Progress Note: Quality Stroke Does the patient have a stroke diagnosis?: No
[2024-12-12 15:41] LABS: Glucose, Whole Blood 227 mg/dL (60-115)
[2024-12-12] MEDS: Insulin Glargine,Hum.rec.anlog 100 UNIT/ML 10 ML VIAL 12 UNIT SUBCUT (16:14)
--- NOTE | 2024-12-12 17:10 | HO.PM.IMPN ---
Subjective Subjective Date of Service: 12/12/24 Interval History: Pt seen this am, denies any sx, Hb >7, family at bedside updated, if Hb remains stable,may be able to go home tomorrow, pt denies all sx Review of Systems -ve for all sx Physical Exam Vital Signs: Vital Signs: Last Vital Signs Temp 98.3 F 12/12/24 16:00 Pulse 75 12/12/24 16:00 Resp 18 12/12/24 16:00 BP 150/71 H 12/12/24 16:00 Pulse Ox 92 12/12/24 16:00 O2 Del Method Room Air 12/12/24 16:00 O2 Flow Rate 2 12/09/24 03:33 Oxygen Flow Rate 6 12/05/24 10:24 BMI result Body Mass Index 38.5 onst: General: no acute distress and awake ; No alert Resp: Effort & Inspectio n: labored Auscul tation: crackles Cardio: Rate: regular rate Rhythm: regular rhythm Heart soun ds: S1 normal hear t sound present an d S2 normal heart sound present GI: Palpation (GI): So ft to palpation an d nontender : General: Yes no CV A tenderness Back/Spine/Pelvis: Back: no CVA tende rness Skin: Rashes: no rashes Extrem: General: Yes edema (+1 BLE edema, pi tting.) and Yes pe tee edema Objective Data Active Medications Acetaminophen (Acetaminophen 325 Mg Tablet) 650 mg PO Q6H PRN PRN Reason: Pain, Mild 1-3,fever,headache Last Admin: 12/11/24 04:12 Dose: 650 mg Documented By: MEDINA Calcium Carbonate (Calcium Carbonate 750 Mg Tab.Chew) 750 mg PO Q4H PRN PRN Reason: Heartburn Carvedilol (Carvedilol 25 Mg Tablet) 25 mg PO BID [facility]; Protocol Last Admin: 12/12/24 08:51 Dose: 25 mg Documented By: FEI Clonidine HCl (Clonidine Hcl 0.2 Mg Tablet) 0.2 mg PO BID [facility]; Protocol Last Admin: 12/12/24 08:56 Dose: 0.2 mg Documented By: FEI Heparin Sodium (Porcine) 50 (units/ Sodium Chloride 5 ml) 0 units IVFLUSH DAILY [facility] Last Admin: 12/12/24 08:51 Dose: 5 unit Documented By: FEI Cyclobenzaprine HCl (Cyclobenzaprine Hcl 10 Mg Tablet) 10 mg PO TID PRN PRN Reason: Muscle Spasm Last Admin: 12/08/24 21:50 Dose: 10 mg Documented By: ALY Dextrose (Dextrose 50 % 25 Gm/50 Ml Syringe) 25 gm IVPUSH Q15M PRN; Protocol PRN Reason: per Hypoglycemia Standing Ord. Fenofibrate (Fenofibrate 54 Mg Tablet) 54 mg PO DAILY [facility] Last Admin: 12/12/24 08:56 Dose: 54 mg Documented By: FEI Fluticasone Propionate (Fluticasone Propionate Nasal 16 Gm [place]) 2 spray NOSTRIL-B BID PRN PRN Reason: for allergies Last Admin: 12/11/24 21:00 Dose: 2 spray Documented By: ALY Furosemide (Furosemide 40 Mg Tablet) 40 mg PO BID [facility]; Protocol Last Admin: 12/12/24 08:57 Dose: 40 mg Documented By: FEI Glucose (Glucose Gel 15 Gm Gel..Gram.) 15 gm PO Q15M PRN; Protocol PRN Reason: per Hypoglycemia Standing Ord. Hydralazine HCl (Hydralazine Hcl 50 Mg Tablet) 50 mg PO TID [facility]; Protocol Last Admin: 12/12/24 16:09 Dose: 50 mg Documented By: FEI Cefepime HCl 1 gm/ Sodium (Chloride) 50 mls @ 100 mls/hr IV Q12H [facility] On Hold: 12/10/24 08:00 Last Infusion: 12/10/24 01:48 Dose: Infused Documented By: MEDINA Daptomycin 650 mg/ Sodium (Chloride) 63 mls @ 126 mls/hr IV Q48H [facility] Last Infusion: 12/12/24 09:27 Dose: Infused Documented By: FEI Insulin Glargine (Insulin Glargine,Hum.Rec.Anlog 100 Unit/Ml 10 Ml Vial) 12 unit SUBCUT DAILY@1700 [facility] Last Admin: 12/12/24 16:14 Dose: 12 unit Documented By: FEI Insulin Human Lispro (Insulin Lispro 100 Unit/Ml 3 Ml Vial) 0 unit SUBCUT QIDACHS [facility]; Protocol Last Admin: 12/12/24 16:15 Dose: 4 unit Documented By: FEI Isosorbide Mononitrate (Isosorbide Mononitrate 30 Mg Tab.Er.24h) 30 mg PO DAILY [facility]; Protocol Last Admin: 12/12/24 09:21 Dose: 30 mg Documented By: FEI Magnesium Hydroxide (Milk Of Magnesia 30 Ml Oral.Susp) 30 ml PO DAILY PRN PRN Reason: Constipation Melatonin (Melatonin 3 Mg Tablet) 6 mg PO BEDTIME PRN PRN Reason: Insomnia Last Admin: 12/09/24 21:48 Dose: 6 mg Documented By: MEDINA Multivitamins/Vitamin C (Multivitamin Tablet) 1 tab PO DAILY [facility] Last Admin: 12/12/24 08:56 Dose: 1 tab Documented By: FEI Ondansetron HCl (Ondansetron Hcl 4 Mg/2 Ml Vial) 4 mg IVPUSH Q8H PRN PRN Reason: Nausea and Vomiting Polyethylene Glycol (Polyethylene Glycol 3350 17 Gm Powd.Pack) 17 gm PO DAILY PRN PRN Reason: Constipation Sodium Chloride (0.9 % Sodium Chloride Flush 3 Ml Syringe) 3 ml IVFLUSH QSHIFT [facility] Last Admin: 12/12/24 16:11 Dose: 3 ml Documented By: FEI Vitamin D (Cholecalciferol (Vitamin D3) 25 Mcg Tablet) 50 mcg PO BEDTIME [facility] Last Admin: 12/11/24 20:55 Dose: 50 mcg Documented By: REKHASU Labs 12/12/24 07:40 12/12/24 07:40 Labs: Laboratory Results - last 24 hr 12/11/24 12/11/24 12/12/24 11:57 20:41 06:56 MCV MCH MCHC RDW Plt Count MPV Absolute Nucleated RBC Nucleated RBC % (auto) Anion Gap Estim Creat Clear Calc Estimated GFR POC Glucose 184 H 94 Random Glucose Calcium Crossmatch See Detail 12/12/24 12/12/24 12/12/24 07:40 10:59 15:36 MCV 88.0 MCH 28.8 MCHC 32.8 RDW 14.8 Plt Count 284 MPV 11.0 Absolute Nucleated RBC 0.020 H Nucleated RBC % (auto) 0.1 Anion Gap 15 Estim Creat Clear Calc 29.9 Estimated GFR 18 POC Glucose 203 H 227 H Random Glucose 90 Calcium 8.7 Crossmatch Assessment and Plan (1) Hypertension: Status: Acute (2) Diabetes: Status: Acute (3) Anemia: Status: Acute Plan Pt is a 54-year-old male with a PMH significant for?HFpEF, insulin-dependent type 2 diabetes, HLD, HTN, CKD 3, NANCY, and hx of osteo on daptomycin who presents to the ED from PCP clinic with severe SOB and difficulty breathing x2 days. Pt is admitted to the hospital for treatment and further evaluation of acute hypoxic respiratory failure in the setting of CHF exacerbation and acute on chronic anemia requiring transfusion. Acute hypoxic respiratory failure in the setting of HFpEF exacerbation Pt with severe SOB, SORTO, edema, hypoxia of 86% on RA, CXR with pulmonary edema, BNP elevated; significant increased work of breathing Improving greatly with aggressive diuresing of Lasix 80 mg IV bid; no longer on O2 Has diuresed over 8L during stay Will switch to Lasix 40 mg p.o. bid, received x1 40 mg iv per renal Monitor BMP, BNP, I/O Low-salt diet Monitor on telemetry Repeat echo showed LVEF 55-60%, moderately dilated left and right atrium Acute on chronic anemia of chronic disease Initial H&H 5.3/16.1 at time of presentation Pt does not appear to be actively bleeding: stool negative for occult blood x2; hemolysis workup negative Pt transfused 2 units PRBCs in the ED on 12/05, another unit on 12/07, and another on 12/11 Hematology consulted, feel likely multifactorial: contributing factors are recent infection/osteomyelitis, delutional from heart failure, and EZRA from prior admission Received Procrit 20,000 units subcut on 12/07; hgb improved to 8.0; hbg dropped to 7.1 on 12/10; additional 10,000 units IV Procrit given per hematology recommendations Will need bone marrow biopsy outpatient Goal is to have H&H above 8.0 Monitor H&H closely stable today Question of pneumonia CXR showing pulmonary edema vs diffuse pneumonia Denies cough, no fever Met SIRS with tachypnea and leukocytosis; lactic acid WNL Completed course of IV abx in the ED CT of chest showed multifocal irregular airspace opacities in all lobes of both lungs Pulmonary consult recommends continued diuresing as pattern appears more edema than infectious MRSA nasal swab negative, procalcitonin 0.88 dc cefepime EZRA on CKD 3 Initial creatinine 4.18, improved to 3.11 with aggressive diuresing Creatinine worsened again Nephrology following Follow creatinine Hx of osteomyelitis left foot 5th digit Currently being treated with daptomycin every other day, end date 12/28/2024 Continue dapto HLD Hold statin while on dapto HTN Continue hydralazine, carvedilol, and clonidine Insulin-dependent type 2 diabetes Sliding-scale insulin, Lantus, diabetic diet NANCY CPAP at night Full Code DVT Prophylaxis: Pneumatic compression due to acute anemia Pt will requires continued hospitalization for diuresing for hypoxia in the setting of CHF exacerbation and acute on chronic anemia. If pt's hbg stays above 8.0, pt can likely be discharged to [facility] tomorrow. Quality Stroke Does the patient have a stroke diagnosis?: No VTE Prior VTE?: No VTE Risk Level:: Medical - moderate - high VTE Device Contraindication: N/A - Device Ordered VTE Drug Contraindication: Treatment Not Indicated
[2024-12-12 21:40] LABS: Glucose, Whole Blood 197 mg/dL (60-115)
[2024-12-13] VITALS (12 sets, daily range): BP systolic 140–172; BP diastolic 63–84; PULSE 58–88; RESP 18–20; TEMP 36.3–37.4; O2SAT 90–97
[2024-12-13 07:08] LABS: Hematocrit 21.8 % (42.0-52.0); Hemoglobin 7.1 g/dl (14.0-18.0); Mean Corpuscular HGB Conc 32.6 g/dl (31.0-36.0); Mean Corpuscular Hemoglobin 28.9 pg (27.0-33.0); Mean Corpuscular Volume 88.6 fL (80.0-98.0); NRBC Abs Auto 0.000 X10*3/uL (0.0-0.012); NRBC Pct Auto 0.0 /100WBC (0.0-0.2); Platelet Count 271 X10*3/uL (160-400); Red Blood Count 2.46 X10*6/uL (4.60-5.80); White Blood Count 14.0 X10*3/uL (4.8-10.8)
[2024-12-13 07:10] LABS: Glucose, Whole Blood 107 mg/dL (60-115)
[2024-12-13 07:31] LABS: Alanine Aminotransferase 17 U/L (0-40); Albumin Level 2.8 g/dL (3.5-5.0); Alkaline Phosphatase 257 U/L (39-117); Anion Gap 14 (12-20); Aspartate Amino Transferase 28 U/L (5-37); Blood Urea Nitrogen 90 mg/dL (9-16); Calcium 8.4 mg/dL (8.4-10.2); Carbon Dioxide 23 mmol/L (22-29); Chloride 102 mmol/L (96-108); Creatinine Clr Calc Pharmacy 32.4; Estimated Glomerular Filt Rate 19; Potassium 5.2 mmol/L (3.3-5.1); Sodium 134 mmol/L (135-145); Total Protein 7.1 g/dL (6.5-8.0)
[2024-12-13] MEDS: Heparin Sodium,Porcine Flush 50 UNITS, 0.9 % Sodium Chloride Flush 5 ML IVFLUSH (08:24)
--- NOTE | 2024-12-13 10:47 | MHC.CM.PN ---
Addendum entered by Adilene Moreau RN 12/13/24 15:32: CM MET W/PT PER REQUEST AND REPORTS HE WILL BE MORE ACTIVE AND DO BETTER AT HOME, PT WILL NOW RETURN HOME W/OPTION CARE TO FINISH IV ABX AND OVERLOOK VNA FOR IV ABX/WOUND CARE. Original Note: EMR REVIEWED, CM MET W/PT TO DISCUSS DISPO P.T. IS RECOMMENDING STR, PT PREFERS [facility] HOWEVER THERE WAS ALSO AN ACUTE REHAB REFERRAL IN AND SOME INTEREST, CM TO REVISIT W/PT. PT W/DROP IN H&H, NOT READY FOR DC, ANTIC IF LABS COME UP PT WILL BE ABLE TO DC TO [facility]/AR TOMORROW 12/14. CM WILL CONT TO FOLLOW.
[2024-12-13 11:15] LABS: Glucose, Whole Blood 196 mg/dL (60-115)
[2024-12-13] MEDS: Furosemide 40 MG/4 ML VIAL IVPUSH ×2 (11:53→21:34)
--- NOTE | 2024-12-13 12:37 | P.PNNP_ITS ---
Subjective Subjective Date of Service: 12/13/24 Interval history: Here for fluid overload/CHF exacerbation, acute anemia requiring multiple blood transfusions. creatinine stable. patient reports breathing has improved though not at baseline. Swelling still there but improving. continues to diurese well, ~2.8L/24 hours. Had 1x lasix 40mg IVP dose yesterday in addition to oral diuretics. Hemoglobin 7.9 & 24.1, received procrit x2 last week per hematology. Physical Exam 2 Vital Signs: Vital Signs: Last Vital Signs Temp 97.7 F 12/13/24 11:15 Pulse 65 12/13/24 11:15 Resp 20 12/13/24 11:15 BP 140/63 H 12/13/24 11:15 Pulse Ox 92 12/13/24 11:15 O2 Del Method Room Air 12/13/24 11:15 O2 Flow Rate 2 12/09/24 03:33 Oxygen Flow Rate 6 12/05/24 10:24 BMI result Body Mass Index 38.5 Const: General: no acute distress and awake; No alert Resp: Effort & Inspection: labored Auscultation: crackles Cardio: Rate: regular rate Rhythm: regular rhythm Heart sounds: S1 normal heart sound present and S2 normal heart sound present GI: Palpation (GI): Soft to palpation and nontender : General: Yes no CVA tenderness Back/Spine/Pelvis: Back: no CVA tenderness Skin: Rashes: no rashes Extrem: General: Yes edema (+1 BLE edema, pitting.) and Yes pedal edema Objective Data Labs 12/13/24 06:34 12/13/24 06:34 Labs: Laboratory Results - last 24 hr 12/11/24 12/12/24 12/12/24 11:57 15:36 21:35 WBC RBC Hgb Hct MCV MCH MCHC RDW Plt Count MPV Absolute Nucleated RBC Nucleated RBC % (auto) Hold Purple Top Sodium Potassium Chloride Carbon Dioxide Anion Gap BUN Creatinine Estim Creat Clear Calc Estimated GFR POC Glucose 227 H 197 H Random Glucose Calcium Total Bilirubin AST ALT Alkaline Phosphatase Total Protein Albumin Blood Type A Positive Antibody Screen NEGATIVE Crossmatch See Detail 12/13/24 12/13/24 12/13/24 06:34 06:34 06:34 WBC Cancelled 14.0 H RBC Cancelled 2.46 L Hgb Cancelled Hct MCV MCH MCHC RDW Plt Count MPV Absolute Nucleated RBC Nucleated RBC % (auto) Hold Purple Top Sodium Potassium Chloride Carbon Dioxide Anion Gap BUN Creatinine Estim Creat Clear Calc Estimated GFR POC Glucose Random Glucose Calcium Total Bilirubin AST ALT Alkaline Phosphatase Total Protein Albumin Blood Type Antibody Screen Crossmatch 12/13/24 12/13/24 12/13/24 06:34 06:34 06:34 WBC RBC Hgb 7.1 L Hct Cancelled 21.8 L MCV Cancelled 88.6 MCH Cancelled MCHC RDW Plt Count MPV Absolute Nucleated RBC Nucleated RBC % (auto) Hold Purple Top Sodium Potassium Chloride Carbon Dioxide Anion Gap BUN Creatinine Estim Creat Clear Calc Estimated GFR POC Glucose Random Glucose Calcium Total Bilirubin AST ALT Alkaline Phosphatase Total Protein Albumin Blood Type Antibody Screen Crossmatch 12/13/24 12/13/24 12/13/24 06:34 06:34 06:34 WBC RBC Hgb Hct MCV MCH 28.9 MCHC Cancelled 32.6 RDW Cancelled 14.6 Plt Count Cancelled MPV Absolute Nucleated RBC Nucleated RBC % (auto) Hold Purple Top Sodium Potassium Chloride Carbon Dioxide Anion Gap BUN Creatinine Estim Creat Clear Calc Estimated GFR POC Glucose Random Glucose Calcium Total Bilirubin AST ALT Alkaline Phosphatase Total Protein Albumin Blood Type Antibody Screen Crossmatch 12/13/24 12/13/24 12/13/24 06:34 06:34 06:34 WBC RBC Hgb Hct MCV MCH MCHC RDW Plt Count 271 MPV Cancelled 11.3 Absolute Nucleated RBC Cancelled 0.000 Nucleated RBC % (auto) Cancelled Hold Purple Top Sodium Potassium Chloride Carbon Dioxide Anion Gap BUN Creatinine Estim Creat Clear Calc Estimated GFR POC Glucose Random Glucose Calcium Total Bilirubin AST ALT Alkaline Phosphatase Total Protein Albumin Blood Type Antibody Screen Crossmatch 12/13/24 12/13/24 12/13/24 06:34 07:00 11:01 WBC RBC Hgb Hct MCV MCH MCHC RDW Plt Count MPV Absolute Nucleated RBC Nucleated RBC % (auto) 0.0 Hold Purple Top SEE NOTE Sodium 134 L Potassium 5.2 H Chloride 102 Carbon Dioxide 23 Anion Gap 14 BUN 90 H Creatinine 3.38 H Estim Creat Clear Calc 32.4 Estimated GFR 19 POC Glucose 107 196 H Random Glucose 106 Calcium 8.4 Total Bilirubin 0.6 AST 28 ALT 17 Alkaline Phosphatase 257 H Total Protein 7.1 Albumin 2.8 L Blood Type Antibody Screen Crossmatch Microbiology Microbiology Results: Microbiology 12/05/24 11:31 Blood - Venous Blood Culture - Final No growth after 5 days. 12/05/24 11:00 Blood - Venous Blood Culture - Final No growth after 5 days. Procedures Date of Service Date of Service: 12/13/24 Assessment & Plan Assessment and plan (1) Acute kidney injury superimposed on CKD: Status: Acute Plan CHF exacerbation and acute anemia in setting of advanced CKD. renal function has had some improvement. recommend continuing lasix 40mg PO BID, added metolazone 5mg PO daily and 2x doses of 40mg IVP lasix today as he remains edematous with crackles in his lungs and breathing remains worse than baseline. hyponatremia- likely hypervolemic related to reduced circulating volume in CHF exacerbation- continue diuretic plan as above. avoid nephrotoxins daily electrolyte and renal function studies regular blood pressure checks, close I&O monitoring continue supportive care Discussed with Dr Goins. Time Spent With Patient Time: Total time managing care of this patient today ____ minutes. Progress Note: Quality Stroke Does the patient have a stroke diagnosis?: No
--- NOTE | 2024-12-13 13:11 | P.PNHO-ONC_ITS ---
Medical Summary - Medical Summary Date of Service: 12/13/24 Chief complaint: Follow-up for: Significant anemia. Primary Care Provider: Quique Tatum CNP Medical Summary: DIAGNOSIS: ANEMIA. Director Of Planning Utilized?: No - Urdu Speaking Interval History Interval history: River Luque is a 54 year old gentleman, overall he is doing better. He has diuresed well, CHF has improved. His kidney function has improved. Still with significant anemia. HPI: Multiple medical problems including insulin-dependent diabetes mellitus, mixed hyperlipidemia, hypertension, diastolic congestive heart failure, CKD stage 3, obstructive sleep apnea, recent left foot osteomyelitis treated in October 2024, [place] [facility] [place] and weakness. During his admission in October his kidney functions worsened further. He was treated with IV antibiotics for osteomyelitis, daptomycin 650 mg IV every 48 hours which he is supposed to continue until 12/28/2024. Patient presented with significant shortness of breath and lower leg swelling. He has been feeling lightheaded, dizzy, weak and drowsy. He went to see his PCP in follow-up on Thursday who called the ambulance and sent him to the ED. In the ED pt was tachypneic to 22 and hypoxic as low as 86% on RA. Labs were significant for leukocytosis 16.2, H&H 5.3/16.1, ESR >140. Echocardiogram revealed ejection fraction of 55-60%. Patient has been taking iron and reports chronic dark-colored stools. He was followed by me for chronic anemia and was last seen on 10/25/2024. Review of Systems - Constitutional Reports system reviewed and no additional complaints, except as documented, Reports lack of energy, Reports malaise, Reports weight loss - Eyes Reports system reviewed and no additional complaints, except as documented - ENT Reports system reviewed and no additional complaints, except as documented - Cardiovascular Reports system reviewed and no additional complaints, except as documented - Respiratory Reports no additional respiratory complaints - Gastrointestinal Reports system reviewed and no additional complaints, except as documented - Genitourinary Genitourinary: Reports no additional male genitourinary complaints - Musculoskeletal Reports system reviewed and no additional complaints, except as documented - Integumentary/Breasts Skin/Breast: Reports no additional skin complaints - Neurologic Reports weakness, Denies memory loss, Denies seizure-like activity - Psychiatric Reports system reviewed and no additional complaints, except as documented - Endocrine Reports no additional endocrine complaints - Hematologic/Lymphatic Reports system reviewed and no additional complaints, except as documented - Allergic/Immunologic Reports system reviewed and no additional complaints, except as documented [facility] Medical History: Medical History (Last Reviewed 12/08/24 @ 10:00 by Kimberly Gallardo PT) Acute heart failure with preserved ejection fraction (HFpEF) Chronic heart failure with preserved ejection fraction (HFpEF) Chronic renal insufficiency CKD (chronic kidney disease) stage 3, GFR 30-59 ml/min Diabetic nephropathy Elevated cholesterol Hypertension Iron deficiency anemia Necrotizing subcutaneous infection Osteomyelitis of third toe of left foot Sleep apnea Type 2 diabetes Functional capacity: wheelchair bound Patient : No Family History: Family History (Last Reviewed 11/25/24 @ 14:46 by Kimberly Blanco MA) Mother Diabetes Maternal Uncle Diabetes Sister Multiple sclerosis Father Liver failure Kidney failure Surgical History: Surgical History (Last Reviewed 12/08/24 @ 10:00 by Kimberly Gallardo PT) History of pyloromyotomy Status post incision and drainage [place] teeth removed Social History: Social History (Last Reviewed 11/25/24 @ 14:46 by Kimberly Blanco MA) Living Situation History: Household Members: Significant Other Household Members: Children Caregiver staying overnight: No Housing: House Are you a primary personal care service provider to a significant other at home: No Do you presently have visiting nurse or other home services: Yes 75 years or older and lives alone: No Tobacco History: Patient Tobacco Use Status: Former Tobacco user Tobacco use type: Cigarette Years Smoked: 4 e-Cigarette/Vaping Use: Never Used Second Hand Smoke Exposure: No Substance Use History: Substance Use Type: Marijuana Advance Directives: Advance Directives Date on File: 05/07/23 Occupation Assessmet: service: No Current occupational status: employed Current occupation: [employer] Current occupational exposures/hazards: No Oncology Screenings - ECOG Performance Status ECOG Performance Status: 2 Home Medications and Allergies Current Medications: Current Medications Acetaminophen (Acetaminophen 325 Mg Tablet) 650 mg PO Q6H PRN PRN Reason: Pain, Mild 1-3,fever,headache Last Admin: 12/11/24 04:12 Dose: 650 mg Calcium Carbonate (Calcium Carbonate 750 Mg Tab.Chew) 750 mg PO Q4H PRN PRN Reason: Heartburn Carvedilol (Carvedilol 25 Mg Tablet) 25 mg PO BID [facility]; Protocol Last Admin: 12/13/24 08:23 Dose: 25 mg Clonidine HCl (Clonidine Hcl 0.2 Mg Tablet) 0.2 mg PO BID [facility]; Protocol Last Admin: 12/13/24 08:22 Dose: 0.2 mg Heparin Sodium (Porcine) 50 (units/ Sodium Chloride 5 ml) 0 units IVFLUSH DAILY [facility] Last Admin: 12/13/24 08:24 Dose: 50 unit Cyclobenzaprine HCl (Cyclobenzaprine Hcl 10 Mg Tablet) 10 mg PO TID PRN PRN Reason: Muscle Spasm Last Admin: 12/08/24 21:50 Dose: 10 mg Dextrose (Dextrose 50 % 25 Gm/50 Ml Syringe) 25 gm IVPUSH Q15M PRN; Protocol PRN Reason: per Hypoglycemia Standing Ord. Fenofibrate (Fenofibrate 54 Mg Tablet) 54 mg PO DAILY [facility] Last Admin: 12/13/24 08:22 Dose: 54 mg Fluticasone Propionate (Fluticasone Propionate Nasal 16 Gm [place]) 2 spray NOSTRIL-B BID PRN PRN Reason: for allergies Last Admin: 12/12/24 22:10 Dose: 2 spray Furosemide (Furosemide 40 Mg Tablet) 40 mg PO BID [facility]; Protocol Last Admin: 12/13/24 08:22 Dose: 40 mg Furosemide (Furosemide 40 Mg/4 Ml Vial) 40 mg IVPUSH ONCE ONE; Protocol Stop: 12/13/24 20:01 Glucose (Glucose Gel 15 Gm Gel..Gram.) 15 gm PO Q15M PRN; Protocol PRN Reason: per Hypoglycemia Standing Ord. Hydralazine HCl (Hydralazine Hcl 50 Mg Tablet) 50 mg PO TID [facility]; Protocol Last Admin: 12/13/24 08:23 Dose: 50 mg Daptomycin 650 mg/ Sodium (Chloride) 63 mls @ 126 mls/hr IV Q48H [facility] Last Infusion: 12/12/24 09:27 Dose: Infused Insulin Glargine (Insulin Glargine,Hum.Rec.Anlog 100 Unit/Ml 10 Ml Vial) 12 unit SUBCUT DAILY@1700 [facility] Last Admin: 12/12/24 16:14 Dose: 12 unit Insulin Human Lispro (Insulin Lispro 100 Unit/Ml 3 Ml Vial) 0 unit SUBCUT QIDACHS [facility]; Protocol Last Admin: 12/13/24 11:53 Dose: 2 unit Isosorbide Mononitrate (Isosorbide Mononitrate 30 Mg Tab.Er.24h) 30 mg PO DAILY [facility]; Protocol Last Admin: 12/13/24 08:22 Dose: 30 mg Magnesium Hydroxide (Milk Of Magnesia 30 Ml Oral.Susp) 30 ml PO DAILY PRN PRN Reason: Constipation Melatonin (Melatonin 3 Mg Tablet) 6 mg PO BEDTIME PRN PRN Reason: Insomnia Last Admin: 12/09/24 21:48 Dose: 6 mg Metolazone (Metolazone 5 Mg Tablet) 5 mg PO DAILY [facility] Last Admin: 12/13/24 11:53 Dose: 5 mg Multivitamins/Vitamin C (Multivitamin Tablet) 1 tab PO DAILY [facility] Last Admin: 12/13/24 08:22 Dose: 1 tab Ondansetron HCl (Ondansetron Hcl 4 Mg/2 Ml Vial) 4 mg IVPUSH Q8H PRN PRN Reason: Nausea and Vomiting Polyethylene Glycol (Polyethylene Glycol 3350 17 Gm Powd.Pack) 17 gm PO DAILY PRN PRN Reason: Constipation Sodium Chloride (0.9 % Sodium Chloride Flush 3 Ml Syringe) 3 ml IVFLUSH QSHIFT [facility] Last Admin: 12/13/24 08:25 Dose: Not Given Vitamin D (Cholecalciferol (Vitamin D3) 25 Mcg Tablet) 50 mcg PO BEDTIME [facility] Last Admin: 12/12/24 20:11 Dose: 50 mcg Home Medications ?Medication ?Instructions ?Recorded ?Confirmed ?Type multivitamin 1 tab PO DAILY 03/11/22 12/05/24 History omega-3 fatty acids-fish oil 684 1 cap PO DAILY 01/21/24 12/05/24 History mg-1,200 mg capsule,delayed release acetaminophen 500 mg tablet 1,000 mg PO BID PRN Pain 11/11/24 History cholecalciferol (vitamin D3) 50 50 mcg PO BEDTIME 11/11/24 12/05/24 Hist ory mcg (2,000 unit) capsule fluticasone propionate 50 2 spray intranasal BID PRN for 11/11/24 12/05/24 History mcg/actuation nasal allergies spray,suspension sodium polystyrene sulfonate 15 30 g PO MOWEFR 11/11/24 12/05/24 History gram oral powder zinc acetate 25 mg (zinc) capsule 25 mg PO DAILY 11/11/24 12/05/24 History insulin lispro 100 unit/mL See Protocol subcut QIDACHS 12/05/24 12/05/24 History subcutaneous pen (Humalog KwikPen (U-100) Insulin) Allergies Allergy/AdvReac Type Severity Reaction Status Date / Time No Known Allergies Allergy Verified 12/05/24 10:35 Exam Vital signs: Vital Signs Temp 97.7 F 12/13/24 11:15 Pulse 65 12/13/24 11:15 Resp 20 12/13/24 11:15 BP 140/63 H 12/13/24 11:15 Pulse Ox 92 12/13/24 11:15 O2 Del Method Room Air 12/13/24 11:15 O2 Flow Rate 2 12/09/24 03:33 Intake & Output 12/12/24 12/13/24 12/13/24 18:59 06:59 18:59 Intake Total 633 / 633 Output Total 1300 / 2100 800 / 2100 1300 / 1300 Balance -667 / -1467 -800 / -1467 -1300 / -1300 Urine Output (Average ml/kg/hr) 0.91 0.56 0.91 Intake: Intake, Oral Amount 570 / 570 Intake, IV Amount 63 / 63 DAPTOmycin 650 mg In 0.9 % 63 / 63 Sodium Chloride 50 ml @ 126 mls /hr IV Q48H [facility] Rx#:[id number] Output: Output, Urine Amount 1300 / 2100 800 / 2100 1300 / 1300 Other: Breakfast % Eaten 100% Lunch % Eaten 100% Dinner % Eaten 100% Number of Bowel Movements 1 Urine Urinal Urinal Urine Color Yellow Yellow Last Bowel Movement 12/12/24 12/12/24 12/12/24 Stool Bathroom Stool Amount Large Stool Color Brown Stool Consistency Formed Weight 118.4 kg BMI result Body Mass Index 38.5 - Constitutional Present: mild distress, obese - Routine HEENT Exam Head: Present: normal inspection Eye: Present: normal appearance ENT: Present: mucous membranes moist - Routine Neck Exam Present: full ROM - Routine Respiratory Exam Absent: stridor, wheezes - Routine Cardiovascular Exam Cardiovascular: Present: S1, S2, tachycardia - Routine Abdominal Exam Present: soft, nontender - Routine Extremities Exam Present: pedal edema - Routine Back/Spine/Pelvis Exam Back/Spine: Present: full ROM - Routine Skin Exam Present: intact - Routine Neurological Exam Present: alert, oriented X3 - Routine Psychiatric Exam Present: normal affect Data - Labs CBC & Chem 7: 12/13/24 06:34 12/13/24 06:34 Labs: Laboratory Last Values WBC 14.0 X10*3/uL (4.8-10.8) H 12/13/24 06:34 WBC Cancelled 12/13/24 06:34 RBC 2.46 X10*6/uL (4.60-5.80) L 12/13/24 06:34 RBC Cancelled 12/13/24 06:34 Hgb 7.1 g/dl (14.0-18.0) L 12/13/24 06:34 Hgb Cancelled 12/13/24 06:34 Hct 21.8 % (42.0-52.0) L 12/13/24 06:34 Hct Cancelled 12/13/24 06:34 MCV 88.6 fL (80.0-98.0) 12/13/24 06:34 MCV Cancelled 12/13/24 06:34 MCH 28.9 pg (27.0-33.0) 12/13/24 06:34 MCH Cancelled 12/13/24 06:34 MCHC 32.6 g/dl (31.0-36.0) 12/13/24 06:34 MCHC Cancelled 12/13/24 06:34 RDW 14.6 % (11.0-16.0) 12/13/24 06:34 RDW Cancelled 12/13/24 06:34 Plt Count 271 X10*3/uL (160-400) 12/13/24 06:34 Plt Count Cancelled 12/13/24 06:34 MPV 11.3 fL (9.4-12.4) 12/13/24 06:34 MPV Cancelled 12/13/24 06:34 Immature Gran % (Auto) 2.3 % (0.0-0.4) H 12/11/24 07:22 Neut % (Auto) 79.5 % (45-73) H 12/11/24 07:22 Lymph % (Auto) 6.7 % (20-40) L 12/11/24 07:22 [place] % (Auto) 5.8 % (2-11) 12/11/24 07:22 Eos % (Auto) 5.4 % (0-4) H 12/11/24 07:22 Baso % (Auto) 0.3 % (0-2) 12/11/24 07:22 Lymph # (Auto) 1.1 X10*3/uL (1.2-4.9) L 12/11/24 07:22 [place] # (Auto) 0.9 X10*3/uL (0.1-1.2) 12/11/24 07:22 Eos # (Auto) 0.9 X10*3/uL (0.0-0.4) H 12/11/24 07:22 Baso # (Auto) 0.1 X10*3/uL (0.0-0.2) 12/11/24 07:22 Abs Immat Gran (auto) 0.37 X10*3/uL (0.00-0.03) H 12/11/24 07:22 Absolute Neuts (auto) 12.5 x10*3/uL (2.0-8.3) H 12/11/24 07:22 Absolute Nucleated RBC 0.000 X10*3/uL (0.0-0.012) 12/13/24 06:34 Absolute Nucleated RBC Cancelled 12/13/24 06:34 Nucleated RBC % (auto) 0.0 /100WBC (0.0-0.2) 12/13/24 06:34 Nucleated RBC % (auto) Cancelled 12/13/24 06:34 Smear Path Review SEE NOTE 12/05/24 11:00 ESR > 140 MM/HR (0-15) H 12/05/24 11:00 Absolute Retic 0.077 X10*6/uL (0.026-0.095) 12/07/24 13:30 Percent Retic 2.8 % (0.5-1.8) H 12/07/24 13:30 Immature Retic Fraction 26.3 % (2.3-13.4) H 12/07/24 13:30 Retic Hgb Equivalent 26.7 pg (30.0-35.0) L 12/07/24 13:30 Hold Purple Top SEE NOTE 12/13/24 06:34 VBG pH 7.50 (7.32-7.43) H 12/05/24 11:08 VBG pCO2 30 mmHg 12/05/24 11:08 VBG pO2 101 mmHg 12/05/24 11:08 VBG HCO3 23 mmol/L (22-26) 12/05/24 11:08 VBG O2 Saturation TNP 12/05/24 11:08 VBG Base Excess 0.9 mmol/L 12/05/24 11:08 Sodium 134 mmol/L (135-145) L 12/13/24 06:34 Potassium 5.2 mmol/L (3.3-5.1) H 12/13/24 06:34 Chloride 102 mmol/L (96-108) 12/13/24 06:34 Carbon Dioxide 23 mmol/L (22-29) 12/13/24 06:34 Anion Gap 14 (12-20) 12/13/24 06:34 BUN 90 mg/dL (9-16) H 12/13/24 06:34 Creatinine 3.38 mg/dL (0.5-1.4) H 12/13/24 06:34 Estim Creat Clear Calc 32.4 12/13/24 06:34 Estimated GFR 19 12/13/24 06:34 POC Glucose 196 mg/dL (60-115) H 12/13/24 11:01 Random Glucose 106 mg/dL (60-115) 12/13/24 06:34 Haptoglobin Cancelled 12/07/24 13:39 Lactic Acid 0.9 mmol/L (0.5-2.0) 12/05/24 11:00 Calcium 8.4 mg/dL (8.4-10.2) 12/13/24 06:34 Magnesium 2.5 mg/dL (1.6-2.6) 12/05/24 11:00 Ferritin 534 ng/mL (20-250) H 12/07/24 13:30 Total Bilirubin 0.6 mg/dL (0.0-1.0) 12/13/24 06:34 Direct Bilirubin 0.6 mg/dL (0.0-0.5) H 12/07/24 13:39 AST 28 U/L (5-37) 12/13/24 06:34 ALT 17 U/L (0-40) 12/13/24 06:34 Alkaline Phosphatase 257 U/L (39-117) H 12/13/24 06:34 Lactate Dehydrogenase 233 U/L (118-273) 12/07/24 13:39 Total Creatine Kinase 171 U/L (38-174) 12/05/24 11:00 Troponin I High Sens 30.8 ng/L (<3.5-35.0) D 12/05/24 11:00 C-Reactive Protein 21.97 mg/dL (< or = 0.50) H 12/05/24 11:00 B-Natriuretic Peptide 2471 pg/mL (<100) H 12/09/24 06:45 Total Protein 7.1 g/dL (6.5-8.0) 12/13/24 06:34 Albumin 2.8 g/dL (3.5-5.0) L 12/13/24 06:34 Vitamin B12 909 pg/mL (200-900) H 12/07/24 13:30 Folate 10.8 ng/mL (> or = 4.0) 12/07/24 13:30 Procalcitonin 0.88 ng/mL 12/05/24 11:00 Urine Color Yellow 12/05/24 12:25 Urine Appearance Clear 12/05/24 12:25 Urine pH 5.0 (5.0-9.0) 12/05/24 12:25 Ur Specific [place] 1.015 (1.005-1.025) 12/05/24 12:25 Urine Protein 100 (2+) mg/dL (Neg-Trace) H 12/05/24 12:25 Urine Glucose (UA) Negative mg/dL (Negative) 12/05/24 12:25 Urine Ketones Negative mg/dL (Negative) 12/05/24 12:25 Urine Blood Negative (Negative) 12/05/24 12:25 Urine Nitrite Negative (Negative) 12/05/24 12:25 Ur Leukocyte Esterase Negative (Negative) 12/05/24 12:25 Urine RBC 0-2 /HPF (0-2) 12/05/24 12:25 Urine WBC 0-5 /HPF (0-5) 12/05/24 12:25 Ur Squamous Epith Cells 0-2 /HPF (0-2) 12/05/24 12:25 Urine Bacteria None Seen (None Seen) 12/05/24 12:25 Hyaline Casts 3-5 /LPF (0-2) 12/05/24 12:25 Nasal Screen MRSA (PCR) NEGATIVE (Negative) 12/05/24 15:28 Nasal S. aureus Screen NEGATIVE (Negative) 12/05/24 15:28 Nasal MRSA/S.aureus Interp SEE NOTE 12/05/24 15:28 Stool Occult Blood NEGATIVE (NEGATIVE) 12/06/24 13:51 Influenza Type A (PCR) NEGATIVE (Negative) 12/05/24 11:00 Influenza Type B (PCR) NEGATIVE (Negative) 12/05/24 11:00 RSV RNA Qual (PCR) NEGATIVE (Negative) 12/05/24 11:00 SARS-CoV-2 RNA (RT-PCR) NEGATIVE (Negative) 12/05/24 11:00 Blood Type A Positive 12/11/24 11:57 Antibody Screen NEGATIVE 12/11/24 11:57 CECY, Polyspecific NEGATIVE 12/07/24 13:30 Positive CECY Work-up TNP 12/07/24 13:30 Crossmatch See Detail 12/11/24 11:57 - Imaging Radiologist's impression: ITS Impressions Chest X-Ray 12/05/24 10:42 IMPRESSION: Diffuse patchy airspace opacities throughout both lungs, compatible with pulmonary edema or diffuse pneumonia. Electronically signed by: Higinio Cortes MD 12/05/2024 11:58 AM EDT RP Chest CT 12/05/24 15:31 IMPRESSION: 1. Multifocal irregular airspace opacities in all lobes of both lungs. The presence of mediastinal lymphadenopathy, and the lack of thickened interlobular septae or cardiomegaly would favor an infectious or inflammatory process rather than pulmonary edema. 2. Small bilateral pleural effusions, right greater than left. 3. Hepatosplenomegaly. Electronically signed by: Higinio Cortes MD 12/06/2024 07:40 AM EDT RP Assessment and Plan Patient Active problem list reviewed?: Yes (1) Anemia Status: Acute Assessment and plan: This is a 54-year-old gentleman with multiple medical problems including diabetes mellitus, chronic kidney disease, anemia, obstructive sleep apnea and heart failure who is presenting with acute on chronic anemia. He was recently treated for osteomyelitis of his left foot with daptomycin which he has been currently receiving. On 11/16/2024, his hemoglobin was 8.7 gram/dL. He presented to ED on 12/05/2024 with hemoglobin of 5.3 gram/dL. Patient was discharged from the hospital on 11/22/2024. There was no blood work from 11/16 to 11/22/2024. He was being treated for osteomyelitis with daptomycin. His serum creatinine on 11/16/2024 was 4 mg/dL, it peaked to 5.25 on 11/20/2024. On current admission on 12/05/2024 his serum creatinine was 4.18 mg/dL. His anemia is multifactorial: 1. ACD: Most likely contributing factors are recent infection/osteomyelitis, dilutional from heart failure and acute kidney injury from prior admission. His CBC was not checked after 11/16/2024, he could have deteriorated in terms of anemia in the last admission itself. 2. IRON DEFICIENCY: There is No evidence of gastrointestinal blood losses. Hematological workup shows elevated ferritin, normal LDH, elevated vitamin B12, normal folate levels. No hematinic deficiencies. Previously his serum immunofixation was normal. 3. HEMOLYTIC ANEMIA: Daptomycin rarely causes hemolytic anemia, at this time there is no evidence of hemolysis. [place] test is negative. CBC from today: WBC 14, HGB 7.1, HCT 22, PLT 271. PLAN: Since his heart failure has cleared up now, he can have a blood transfusion, to help with his energy level and oxygen carrying capacity. Would also recommend Procrit/MUSA therapy for his anemia. If he feels up to going home today he can leave after receiving the blood transfusion. Thank you for the consultation, I will follow along with you, CC: Quique Tatum CNP - Time Spent With Patient Time Spent with Patient (in minutes): 25
--- NOTE | 2024-12-13 15:48 | HO.PM.IMPN ---
Subjective Subjective Date of Service: 12/13/24 Interval History: Pt states feeling slightly better in terms of his breathing, states he still becomes sob with ambulation but def better than before, renal following, needed another prbc today Review of Systems -ve exept as stated above Physical Exam Vital Signs: Vital Signs: Last Vital Signs Temp 97.7 F 12/13/24 15:14 Pulse 67 12/13/24 15:14 Resp 18 12/13/24 15:14 BP 158/77 H 12/13/24 15:14 Pulse Ox 94 12/13/24 15:14 O2 Del Method Room Air 12/13/24 15:14 O2 Flow Rate 2 12/09/24 03:33 Oxygen Flow Rate 6 12/05/24 10:24 BMI result Body Mass Index 38.5 General: no acute distress and awake ; No alert Resp: Effort & Inspectio n: labored Auscul tation: crackles, RA Cardio: Rate: regular rate Rhythm: regular rhythm Heart soun ds: S1 normal hear t sound present an d S2 normal heart sound present GI: Palpation (GI): So ft to palpation an d nontender Back/Spine/Pelvis: Back: no CVA tende rness Skin: Rashes: no rashes Extrem: General: Yes edema (+1 BLE edema, pi tting.) and Yes pe tee edema Objective Data Active Medications Acetaminophen (Acetaminophen 325 Mg Tablet) 650 mg PO Q6H PRN PRN Reason: Pain, Mild 1-3,fever,headache Last Admin: 12/11/24 04:12 Dose: 650 mg Documented By: MEDINA Calcium Carbonate (Calcium Carbonate 750 Mg Tab.Chew) 750 mg PO Q4H PRN PRN Reason: Heartburn Carvedilol (Carvedilol 25 Mg Tablet) 25 mg PO BID [facility]; Protocol Last Admin: 12/13/24 08:23 Dose: 25 mg Documented By: RICHARD Clonidine HCl (Clonidine Hcl 0.2 Mg Tablet) 0.2 mg PO BID [facility]; Protocol Last Admin: 12/13/24 08:22 Dose: 0.2 mg Documented By: RICHARD Heparin Sodium (Porcine) 50 (units/ Sodium Chloride 5 ml) 0 units IVFLUSH DAILY [facility] Last Admin: 12/13/24 08:24 Dose: 50 unit Documented By: RICHARD Cyclobenzaprine HCl (Cyclobenzaprine Hcl 10 Mg Tablet) 10 mg PO TID PRN PRN Reason: Muscle Spasm Last Admin: 12/08/24 21:50 Dose: 10 mg Documented By: ALY Dextrose (Dextrose 50 % 25 Gm/50 Ml Syringe) 25 gm IVPUSH Q15M PRN; Protocol PRN Reason: per Hypoglycemia Standing Ord. Fenofibrate (Fenofibrate 54 Mg Tablet) 54 mg PO DAILY [facility] Last Admin: 12/13/24 08:22 Dose: 54 mg Documented By: RICHARD Fluticasone Propionate (Fluticasone Propionate Nasal 16 Gm [place]) 2 spray NOSTRIL-B BID PRN PRN Reason: for allergies Last Admin: 12/12/24 22:10 Dose: 2 spray Documented By: ALY Furosemide (Furosemide 40 Mg Tablet) 40 mg PO BID [facility]; Protocol Last Admin: 12/13/24 08:22 Dose: 40 mg Documented By: RICHARD Furosemide (Furosemide 40 Mg/4 Ml Vial) 40 mg IVPUSH ONCE ONE; Protocol Stop: 12/13/24 20:01 Glucose (Glucose Gel 15 Gm Gel..Gram.) 15 gm PO Q15M PRN; Protocol PRN Reason: per Hypoglycemia Standing Ord. Hydralazine HCl (Hydralazine Hcl 50 Mg Tablet) 50 mg PO TID [facility]; Protocol Last Admin: 12/13/24 14:04 Dose: 50 mg Documented By: RICHARD Daptomycin 650 mg/ Sodium (Chloride) 63 mls @ 126 mls/hr IV Q48H [facility] Last Infusion: 12/12/24 09:27 Dose: Infused Documented By: FEI Insulin Glargine (Insulin Glargine,Hum.Rec.Anlog 100 Unit/Ml 10 Ml Vial) 12 unit SUBCUT DAILY@1700 [facility] Last Admin: 12/12/24 16:14 Dose: 12 unit Documented By: FEI Insulin Human Lispro (Insulin Lispro 100 Unit/Ml 3 Ml Vial) 0 unit SUBCUT QIDACHS [facility]; Protocol Last Admin: 12/13/24 11:53 Dose: 2 unit Documented By: RICHARD Isosorbide Mononitrate (Isosorbide Mononitrate 30 Mg Tab.Er.24h) 30 mg PO DAILY [facility]; Protocol Last Admin: 12/13/24 08:22 Dose: 30 mg Documented By: RICHARD Magnesium Hydroxide (Milk Of Magnesia 30 Ml Oral.Susp) 30 ml PO DAILY PRN PRN Reason: Constipation Melatonin (Melatonin 3 Mg Tablet) 6 mg PO BEDTIME PRN PRN Reason: Insomnia Last Admin: 12/09/24 21:48 Dose: 6 mg Documented By: MEDINA Metolazone (Metolazone 5 Mg Tablet) 5 mg PO DAILY [facility] Last Admin: 12/13/24 11:53 Dose: 5 mg Documented By: RICHARD Multivitamins/Vitamin C (Multivitamin Tablet) 1 tab PO DAILY [facility] Last Admin: 12/13/24 08:22 Dose: 1 tab Documented By: RICHARD Ondansetron HCl (Ondansetron Hcl 4 Mg/2 Ml Vial) 4 mg IVPUSH Q8H PRN PRN Reason: Nausea and Vomiting Polyethylene Glycol (Polyethylene Glycol 3350 17 Gm Powd.Pack) 17 gm PO DAILY PRN PRN Reason: Constipation Sodium Chloride (0.9 % Sodium Chloride Flush 3 Ml Syringe) 3 ml IVFLUSH QSHIFT [facility] Last Admin: 12/13/24 15:28 Dose: Not Given Documented By: RICHARD Non-Admin Reason: Previously Administered Vitamin D (Cholecalciferol (Vitamin D3) 25 Mcg Tablet) 50 mcg PO BEDTIME [facility] Last Admin: 12/12/24 20:11 Dose: 50 mcg Documented By: ALY Labs 12/13/24 06:34 12/13/24 06:34 Labs: Laboratory Results - last 24 hr 12/11/24 12/12/24 12/13/24 11:57 21:35 06:34 MCV Cancelled MCH MCHC RDW Plt Count MPV Absolute Nucleated RBC Nucleated RBC % (auto) Hold Purple Top Anion Gap Estim Creat Clear Calc Estimated GFR POC Glucose 197 H Random Glucose Calcium Total Bilirubin AST ALT Alkaline Phosphatase Total Protein Albumin Blood Type A Positive Antibody Screen NEGATIVE Crossmatch See Detail 12/13/24 12/13/24 12/13/24 06:34 06:34 06:34 MCV 88.6 MCH Cancelled 28.9 MCHC Cancelled 32.6 RDW Cancelled Plt Count MPV Absolute Nucleated RBC Nucleated RBC % (auto) Hold Purple Top Anion Gap Estim Creat Clear Calc Estimated GFR POC Glucose Random Glucose Calcium Total Bilirubin AST ALT Alkaline Phosphatase Total Protein Albumin Blood Type Antibody Screen Crossmatch 12/13/24 12/13/24 12/13/24 06:34 06:34 06:34 MCV MCH MCHC RDW 14.6 Plt Count Cancelled 271 MPV Cancelled 11.3 Absolute Nucleated RBC Cancelled Nucleated RBC % (auto) Hold Purple Top Anion Gap Estim Creat Clear Calc Estimated GFR POC Glucose Random Glucose Calcium Total Bilirubin AST ALT Alkaline Phosphatase Total Protein Albumin Blood Type Antibody Screen Crossmatch 12/13/24 12/13/24 12/13/24 06:34 06:34 07:00 MCV MCH MCHC RDW Plt Count MPV Absolute Nucleated RBC 0.000 Nucleated RBC % (auto) Cancelled 0.0 Hold Purple Top SEE NOTE Anion Gap 14 Estim Creat Clear Calc 32.4 Estimated GFR 19 POC Glucose 107 Random Glucose 106 Calcium 8.4 Total Bilirubin 0.6 AST 28 ALT 17 Alkaline Phosphatase 257 H Total Protein 7.1 Albumin 2.8 L Blood Type Antibody Screen Crossmatch 12/13/24 11:01 MCV MCH MCHC RDW Plt Count MPV Absolute Nucleated RBC Nucleated RBC % (auto) Hold Purple Top Anion Gap Estim Creat Clear Calc Estimated GFR POC Glucose 196 H Random Glucose Calcium Total Bilirubin AST ALT Alkaline Phosphatase Total Protein Albumin Blood Type Antibody Screen Crossmatch Assessment and Plan (1) Hyponatremia: Status: Acute (2) Type 2 diabetes: Status: Acute Plan Pt is a 54-year-old male with a PMH significant for?HFpEF, insulin-dependent type 2 diabetes, HLD, HTN, CKD 3, NANCY, and hx of osteo on daptomycin who presents to the ED from PCP clinic with severe SOB and difficulty breathing x2 days. Pt is admitted to the hospital for treatment and further evaluation of acute hypoxic respiratory failure in the setting of CHF exacerbation and acute on chronic anemia requiring transfusion. Acute hypoxic respiratory failure in the setting of HFpEF exacerbation resolved Pt with severe SOB, SORTO, edema, hypoxia of 86% on RA, CXR with pulmonary edema, BNP elevated; significant increased work of breathing Improving greatly with aggressive diuresing of Lasix 80 mg IV bid; no longer on O2 cont Lasix 40 mg p.o. bid, renal started metolazone today along with 2 extra doses of iv lasix Monitor BMP, BNP, I/O Low-salt diet Repeat echo showed LVEF 55-60%, moderately dilated left and right atrium Acute on chronic anemia of chronic disease Initial H&H 5.3/16.1 at time of presentation Pt does not appear to be actively bleeding: stool negative for occult blood x2; hemolysis workup negative Pt transfused 2 units PRBCs in the ED on 12/05, another unit on 12/07, and another on 12/11 Hematology consulted, feel likely multifactorial: contributing factors are recent infection/osteomyelitis, delutional from heart failure, and EZRA from prior admission Received Procrit 20,000 units subcut on 12/07; hgb improved to 8.0; hbg dropped to 7.1 on 12/10; additional 10,000 units IV Procrit given per hematology recommendations Will need bone marrow biopsy outpatient Goal is to have H&H above 8.0 Monitor H&H closely needed another prbc tx today per heme recc Question of pneumonia CXR ~ pulmonary edema vs diffuse pneumonia Denies cough, no fever Met SIRS with tachypnea and leukocytosis; lactic acid WNL Completed course of IV abx in the ED CT of chest showed multifocal irregular airspace opacities in all lobes of both lungs Pulmonary consult recommends continued diuresing as pattern appears more edema than infectious MRSA nasal swab negative, procalcitonin 0.88 dc cefepime EZRA on CKD 3 Initial creatinine 4.18, improved to 3.11 with aggressive diuresing Creatinine worsened again Nephrology following Follow creatinine Hx of osteomyelitis left foot 5th digit Currently being treated with daptomycin every other day, end date 12/28/2024 Continue dapto HLD Hold statin while on dapto HTN Continue hydralazine, carvedilol, and clonidine Insulin-dependent type 2 diabetes Sliding-scale insulin, Lantus, diabetic diet NANCY CPAP at night Full Code DVT Prophylaxis: Pneumatic compression due to acute anemia Pt will requires continued hospitalization for diuresing for hypoxia in the setting of CHF exacerbation and acute on chronic anemia. If pt's hbg stays above 8.0, pt can likely be discharged to [facility] tomorrow. Quality Stroke Does the patient have a stroke diagnosis?: No VTE Prior VTE?: No VTE Risk Level:: Medical - moderate - high VTE Device Contraindication: N/A - Device Ordered VTE Drug Contraindication: Treatment Not Indicated
[2024-12-13 16:06] LABS: Glucose, Whole Blood 183 mg/dL (60-115)
[2024-12-13] MEDS: Insulin Glargine,Hum.rec.anlog 100 UNIT/ML 10 ML VIAL 12 UNIT SUBCUT (16:48)
[2024-12-13] MEDS: 0.9 % Sodium Chloride Flush 3 ML SYRINGE IVFLUSH (21:34)
[2024-12-14 04:00] VITALS: BP 141/65; PULSE 56; RESP 18; TEMP 36.9; O2SAT 98
[2024-12-14 04:12] LABS: Glucose, Whole Blood 159 mg/dL (60-115)
[2024-12-14 07:08] LABS: Glucose, Whole Blood 86 mg/dL (60-115)
[2024-12-14 07:26] VITALS: BP 160/60; PULSE 76; RESP 20; TEMP 37.1; O2SAT 95
[2024-12-14] MEDS: Heparin Sodium,Porcine Flush 50 UNITS, 0.9 % Sodium Chloride Flush 5 ML IVFLUSH (07:41)
[2024-12-14 07:47] LABS: Hematocrit 25.2 % (42.0-52.0); Hemoglobin 8.3 g/dl (14.0-18.0); Mean Corpuscular HGB Conc 32.9 g/dl (31.0-36.0); Mean Corpuscular Hemoglobin 29.2 pg (27.0-33.0); Mean Corpuscular Volume 88.7 fL (80.0-98.0); NRBC Abs Auto 0.000 X10*3/uL (0.0-0.012); NRBC Pct Auto 0.0 /100WBC (0.0-0.2); Platelet Count 297 X10*3/uL (160-400); Red Blood Count 2.84 X10*6/uL (4.60-5.80); White Blood Count 13.1 X10*3/uL (4.8-10.8)
[2024-12-14 08:11] LABS: Alanine Aminotransferase 18 U/L (0-40); Albumin Level 3.0 g/dL (3.5-5.0); Alkaline Phosphatase 245 U/L (39-117); Anion Gap 15 (12-20); Aspartate Amino Transferase 27 U/L (5-37); Blood Urea Nitrogen 89 mg/dL (9-16); Calcium 9.0 mg/dL (8.4-10.2); Carbon Dioxide 24 mmol/L (22-29); Chloride 101 mmol/L (96-108); Creatinine Clr Calc Pharmacy 32.5; Estimated Glomerular Filt Rate 19; Potassium 4.9 mmol/L (3.3-5.1); Sodium 135 mmol/L (135-145); Total Protein 7.7 g/dL (6.5-8.0)
--- NOTE | 2024-12-14 10:15 | P.PNNP_ITS ---
Subjective Subjective Date of Service: 12/14/24 Interval history: Here for fluid overload/CHF exacerbation, acute anemia requiring multiple blood transfusions. creatinine stable. patient reports breathing has improved, though still some mild dyspnea with exertion. Swelling still there but improving. continues to diurese well. Had 40mg IVP lasix x2 yesterday in addition to PO diuretics. He did also receive a unit of blood. patient states he is very anxious to go home and is feeling depressed that he is still in the hospital. States he is abiding by fluid restriction. Physical Exam 2 Vital Signs: Vital Signs: Last Vital Signs Temp 97.5 F 12/14/24 11:07 Pulse 70 12/14/24 11:07 Resp 18 12/14/24 11:07 BP 158/77 H 12/14/24 11:07 Pulse Ox 92 12/14/24 11:07 O2 Del Method Room Air 12/14/24 11:07 O2 Flow Rate 2 12/09/24 03:33 Oxygen Flow Rate 6 12/05/24 10:24 BMI result Body Mass Index 38.5 Const: General: no acute distress and awake; No alert Resp: Effort & Inspection: labored Auscultation: crackles Cardio: Rate: regular rate Rhythm: regular rhythm Heart sounds: S1 normal heart sound present and S2 normal heart sound present GI: Palpation (GI): Soft to palpation and nontender : General: Yes no CVA tenderness Back/Spine/Pelvis: Back: no CVA tenderness Skin: Rashes: no rashes Extrem: General: Yes edema (+2 BLE edema, pitting.) and Yes pedal edema Objective Data Labs 12/14/24 06:56 12/14/24 06:56 Labs: Laboratory Results - last 24 hr 12/11/24 12/13/24 12/13/24 11:57 16:00 19:54 WBC RBC Hgb Hct MCV MCH MCHC RDW Plt Count MPV Absolute Nucleated RBC Nucleated RBC % (auto) Sodium Potassium Chloride Carbon Dioxide Anion Gap BUN Creatinine Estim Creat Clear Calc Estimated GFR POC Glucose 183 H 159 H Random Glucose Calcium Total Bilirubin AST ALT Alkaline Phosphatase Total Protein Albumin Blood Type A Positive Antibody Screen NEGATIVE Crossmatch See Detail 12/14/24 12/14/24 12/14/24 06:56 07:03 10:51 WBC 13.1 H RBC 2.84 L Hgb 8.3 L Hct 25.2 L MCV 88.7 MCH 29.2 MCHC 32.9 RDW 14.6 Plt Count 297 MPV 11.1 Absolute Nucleated RBC 0.000 Nucleated RBC % (auto) 0.0 Sodium 135 Potassium 4.9 Chloride 101 Carbon Dioxide 24 Anion Gap 15 BUN 89 H Creatinine 3.37 H Estim Creat Clear Calc 32.5 Estimated GFR 19 POC Glucose 86 212 H Random Glucose 80 Calcium 9.0 D Total Bilirubin 0.7 AST 27 ALT 18 Alkaline Phosphatase 245 H Total Protein 7.7 Albumin 3.0 L Blood Type Antibody Screen Crossmatch Microbiology Microbiology Results: Microbiology 12/05/24 11:31 Blood - Venous Blood Culture - Final No growth after 5 days. 12/05/24 11:00 Blood - Venous Blood Culture - Final No growth after 5 days. Procedures Date of Service Date of Service: 12/14/24 Assessment & Plan Assessment and plan (1) Acute kidney injury superimposed on CKD: Status: Acute Plan CHF exacerbation and acute anemia in setting of advanced CKD. renal function has had some improvement, remains stable. recommend continuing lasix 40mg PO BID, added metolazone 5mg PO BID and x1 dose of 40mg IVP lasix today- given he has an outpatient nephrology appointment tomorrow so will have close follow up he may go home today from a renal standpoint. hyponatremia- likely hypervolemic related to reduced circulating volume in CHF exacerbation- continue diuretic plan as above. avoid nephrotoxins daily electrolyte and renal function studies regular blood pressure checks, close I&O monitoring continue supportive care Discussed with Dr Goins. Time Spent With Patient Time: Total time managing care of this patient today ____ minutes. Progress Note: Quality Stroke Does the patient have a stroke diagnosis?: No
--- NOTE | 2024-12-14 10:49 | MHC.CM.PN ---
Per ROUNDS discussion, Patient is not yet medically cleared for dc (ongoing need for transfusions); PT is recommending inpatient pulmonary rehab and CM will continue to follow.
[2024-12-14 10:58] LABS: Glucose, Whole Blood 212 mg/dL (60-115)
[2024-12-14 11:07] VITALS: BP 158/77; PULSE 70; RESP 18; TEMP 36.4; O2SAT 92
[2024-12-14] MEDS: Furosemide 40 MG/4 ML VIAL IVPUSH (12:26)
--- NOTE | 2024-12-14 13:19 | P.DS_ITS ---
DS: Providers Provider Date of Service: 12/14/24 Date of admission: 12/05/24 12:34 Date of discharge: 12/14/24 Primary care physician: Quique Tatum CNP Consults: 12/05/24 13:42 Consult to Nephrology Routine Consulting Provider: [facility] Reason for consultation: CKD3; here for anemia and CHF 12/06/24 10:32 Consult to Pulmonology Routine Consulting Provider: [facility] Reason for consultation: Multifocal irregular opacities in all lobes bilaterally 12/06/24 19:27 Consult to Wound Care Routine Reason for consultation: left foot 3rd digit small opening 12/07/24 11:57 Consult to Hematology / Oncology Routine Consulting Provider: [facility] Reason for consultation: Recurrent need for transfusion, ?hemolysis 12/13/24 08:20 Consult to Hematology / Oncology Routine Consulting Provider: [facility] Reason for consultation: persistent DS: Diagnosis Discharge Diagnosis (1) Anemia: Status: Acute DS: Summary Hospital Course Hospital Course: From admission HPI: Date of Service: 12/05/24 Attending physician on admission: Bennie Roach Chief Complaint: SOB Pt is a 54-year-old male with a PMH significant for?HFpEF, insulin-dependent type 2 diabetes, HLD, HTN, CKD 3, NANCY, and hx of osteo on daptomycin who presents to the ED from PCP clinic with severe SOB and difficulty breathing x2 days. Pt was recently discharged from the hospital on 11/22 after being admitted for osteomyelitis of left 3rd toe, currently on daptomycin IV every other day with end day of 12/28/2024. Pt reports he has had significant SOB, difficulty breathing, and lower leg swelling for the past few days. Pt has difficulty walking even short distances or completing daily tasks. Pt feels lightheaded and dizzy, tired, weak, and drowsy; reports falling asleep even when using the bathroom. No reported fever, but constantly has felt cold. Earlier in the week doubled his Lasix per his PCP's recommendation, though symptoms persisted. Initially what disease PCP earlier today who then sent him to the ED for further evaluation. Pt also states he has had abdominal pain for the past several days, though currently resolved. Has had dark black stool the past week or so; stopped taking iron supplementation a few days ago and reports abd felt better since then. Denies cough. In the ED pt was tachypneic to 22 and hypoxic as low as 86% on RA. Labs were significant for leukocytosis 16.2, H&H 5.3/16.1, ESR >140, sodium 131 creatinine 4.18, AST 40, alk-phos 236, CRP 21.97, BNP 2318. Stool negative for occult blood. UA negative. Tested negative for flu, RSV, and COVID. CXR showed diffuse patchy airspace opacities throughout both lungs, compatible with pulmonary edema or diffuse pneumonia. EKG demonstrated normal sinus rhythm without evidence of significant ST elevations or depressions. Pt was treated in the ED with insulin lispro 10 units, cefepime, furosemide 80 mg IV, and transfused 2 units PRBCs. Pt is admitted to the hospital for treatment and further evaluation of acute hypoxic respiratory failure in the setting of CHF exacerbation and acute on chronic anemia requiring transfusion. Hospital course: Pt was admitted to the hospital for acute hypoxic respiratory failure and EZRA on CKD in the setting of CHF exacerbation. Pt was aggressively diuresed with Lasix 80 mg IV b.i.d. slow resolution of hypoxia and EZRA. Hospital course was complicated by acute on chronic anemia requiring multiple transfusions. PT was seen and evealuated by PT who recommended STR but pt declined and instead is going home with services. Hospital course by problem as listed below: Acute hypoxic respiratory failure in the setting of HFpEF exacerbation resolved Pt with severe SOB, SORTO, edema, hypoxia of 86% on RA, CXR with pulmonary edema, BNP elevated; significant increased work of breathing at time of presentation Improving greatly with aggressive diuresing of Lasix 80 mg IV bid; no longer on O2; has diuresed a total around 14.5L Continue Lasix 40 mg p.o. bid at home, renal started metolazone today along with 2 extra doses of iv lasix Continue metolazone 5mg bid at home; Dr. Hernandez will decide whether to continue at tomorrow's appointment Low-salt diet at home, compression stockings, elevate feet while at rest Repeat echo showed LVEF 55-60%, moderately dilated left and right atrium Acute on chronic anemia of chronic disease Initial H&H 5.3/16.1 at time of presentation; 8.3/25.2 today at discharge Pt does not appear to be actively bleeding: stool negative for occult blood x2; hemolysis workup negative; no iron deficiency Pt transfused 2 units PRBCs in the ED on 12/05, and additional units on 12/07, 12/11, and 12/13 Hematology consulted, feel likely multifactorial: contributing factors are recent infection/osteomyelitis, delutional from heart failure, and EZAR from prior admission Received Procrit 20,000 units subcut on 12/07; hgb improved to 8.0; hbg dropped to 7.1 on 12/10; additional 10,000 units IV Procrit given per hematology recommendations Will need bone marrow biopsy outpatient Goal is to have H&H above 8.[address] Thornton in hematology outpatient next week EZRA on CKD 3 Initial creatinine 4.18, improved to 3.37 with aggressive diuresing Continue home Lasix, metolazone Follow up with Dr. Hernandez and Nephrology tomorrow with outpatient appointment at 10:30 Question of pneumonia CXR ~ pulmonary edema vs diffuse pneumonia Denies cough, no fever Met SIRS with tachypnea and leukocytosis; lactic acid WNL Completed course of IV abx in the ED CT of chest showed multifocal irregular airspace opacities in all lobes of both lungs Pulmonary consult recommends continued diuresing as pattern appears more edema than infectious MRSA nasal swab negative, procalcitonin 0.88 Hx of osteomyelitis left foot 5th digit Currently being treated with daptomycin every other day, end date 12/28/2024 Continue dapto HLD Hold statin while on dapto HTN Continue hydralazine, carvedilol, and clonidine Insulin-dependent type 2 diabetes Sliding-scale insulin, Lantus, diabetic diet NANCY CPAP at night Full Code DVT Prophylaxis: Pneumatic compression due to acute anemia Pt will requires continued hospitalization for diuresing for hypoxia in the setting of CHF exacerbation and acute on chronic anemia. If pt's hbg stays above 8.0, pt can likely be discharged to [facility] tomorrow. Time Attestation Discharge Coordination Time (in mins): 35 Quality: Safe Use of Opioids Does Pt have an Active Cancer Diagnosis on the Problem List?: No Quality: Stroke Does the patient have a stroke diagnosis?: No Physical Exam Exam: Exam: General: AOx3, no acute distress Resp: CTA bilaterally CVS: S1, S2, RRR GI: +BS, NT, no distention Skin: Warm, dry Neuro: Cranial nerves II-XII grossly intact bilaterally. Motor grossly intact bilaterally Extremities: 2+ bilateral pitting edema Psych: Appropriate affect Vital Signs: Vital Signs: Last Vital Signs Temp 97.5 F 12/14/24 11:07 Pulse 70 12/14/24 11:07 Resp 18 12/14/24 11:07 BP 158/77 H 12/14/24 11:07 Pulse Ox 92 12/14/24 11:07 O2 Del Method Room Air 12/14/24 11:07 O2 Flow Rate 2 12/09/24 03:33 Oxygen Flow Rate 6 12/05/24 10:24 BMI result Body Mass Index 38.5 DS: Data Data Completed and Pending Completed studies during hospitalization [Text1]: Procedures Excision of Buttock Subcutaneous Tissue and Fascia, Open Approach (03/11/22) Fluoroscopy of Superior Vena Cava, Guidance (11/11/24) Insertion of Infusion Device into Superior Vena Cava, Percutaneous Approach (11/11/24) Insertion of Tunneled Vascular Access Device into Chest Subcutaneous Tissue and Fascia, Percutaneous Approach (11/11/24) Labs on day of discharge: Laboratory Results - last 24 hr 12/11/24 12/13/24 12/13/24 11:57 16:00 19:54 WBC RBC Hgb Hct MCV MCH MCHC RDW Plt Count MPV Absolute Nucleated RBC Nucleated RBC % (auto) Sodium Potassium Chloride Carbon Dioxide Anion Gap BUN Creatinine Estim Creat Clear Calc Estimated GFR POC Glucose 183 H 159 H Random Glucose Calcium Total Bilirubin AST ALT Alkaline Phosphatase Total Protein Albumin Blood Type A Positive Antibody Screen NEGATIVE Crossmatch See Detail 12/14/24 12/14/24 12/14/24 06:56 07:03 10:51 WBC 13.1 H RBC 2.84 L Hgb 8.3 L Hct 25.2 L MCV 88.7 MCH 29.2 MCHC 32.9 RDW 14.6 Plt Count 297 MPV 11.1 Absolute Nucleated RBC 0.000 Nucleated RBC % (auto) 0.0 Sodium 135 Potassium 4.9 Chloride 101 Carbon Dioxide 24 Anion Gap 15 BUN 89 H Creatinine 3.37 H Estim Creat Clear Calc 32.5 Estimated GFR 19 POC Glucose 86 212 H Random Glucose 80 Calcium 9.0 D Total Bilirubin 0.7 AST 27 ALT 18 Alkaline Phosphatase 245 H Total Protein 7.7 Albumin 3.0 L Blood Type Antibody Screen Crossmatch Discharge Plan Discharge Anticipated Discharge Date/Time: 12/14/24 12:56 Patient Disposition: Home Health Service Discharge Diagnosis: Acute hypoxic respiratory failure in the setting of CHF exacerbation Referrals: Quique Tatum, TRUDY [Primary Care Provider, Internal Medicine] - 1 Week Discharge Medications: Continued (DME) FreeStyle Lite Strips Strip Qty: 100 4RF Rx Instructions: Test four times a day or as directed. (DME) lancets [FreeStyle Lancets] 28 gauge misc See Rx Instructions .ROUTE .COMPLEX Qty: 100 2RF Dose Instruction: TEST FOUR TIMES A DAY OR DIRECTED. Rx Instructions: TEST FOUR TIMES A DAY OR DIRECTED. atorvastatin 40 mg tablet 40 mg PO BEDTIME 30 Days Qty: 30 3RF fenofibrate 54 mg tablet 54 mg PO DAILY Qty: 90 1RF (DME) pen needle, diabetic 32 gauge x 5/32 needle See Rx Instructions .ROUTE .COMPLEX Qty: 120 8RF Dose Instruction: USE FOUR TIMES A DAY OR DIRECTED. Rx Instructions: USE FOUR TIMES A DAY OR DIRECTED. clonidine HCl 0.2 mg tablet 0.2 mg PO BID 90 Days Qty: 180 1RF multivitamin Tablet 1 tab PO DAILY (DME) blood-glucose meter [FreeStyle Lite Meter] Kit Qty: 1 0RF Rx Instructions: As Directed omega-3 fatty acids-fish oil 684-1,200 mg Capsule,Delayed Release(Dr/Ec) 1 cap PO DAILY cyclobenzaprine 10 mg tablet 10 mg PO TID PRN (Reason: muscle spasm) Qty: 15 0RF sodium polystyrene sulfonate 15 gram Powder 30 g PO MOWEFR zinc acetate 25 mg (zinc) capsule 25 mg PO DAILY Rx Instructions: substitute of 30 mg capsules ok fluticasone propionate 50 mcg/actuation spray,suspension 2 spray intranasal BID PRN (Reason: for allergies) cholecalciferol (vitamin D3) 50 mcg (2,000 unit) capsule 50 mcg PO BEDTIME acetaminophen 500 mg Tablet 1,000 mg PO BID PRN (Reason: Pain) daptomycin 350 mg Recon Soln 650 mg IV Q48H Qty: 35 0RF Rx Instructions: end date is 12/28/24 carvedilol 25 mg Tablet 25 mg PO BID Qty: 180 0RF Protocol: Hold for SBP/HR < HOLD for SBP < : 90 HOLD for HR < : 60 isosorbide mononitrate 30 mg Tablet Extended Release 24 Hr 30 mg PO DAILY Qty: 90 0RF Protocol: Hold for SBP< HOLD for SBP < : 90 hydralazine 50 mg Tablet 50 mg PO TID Qty: 360 0RF Protocol: Hold for SBP< HOLD for SBP < : 90 insulin glargine [Basaglar KwikPen U-100 Insulin] 100 unit/mL (3 mL) insulin pen 12 unit subcut DAILY@1700 Qty: 15 0RF insulin lispro [Humalog KwikPen Insulin] 100 unit/mL insulin pen See Protocol SUBCUT QIDACHS Protocol: Insulin Correction Scale Less than or equal to 110 ---- Give (units): 0 111 to 150 Give (units): 0 151 to 200 Give (units): 2 201 to 250 Give (units): 4 251 to 300 Give (units): 6 301 to 350 Give (units): 8 Greater than 350 Give (units): 10 Call MD if Blood Glucose > : 350 (DME) comp.stocking,knee,long,medium Misc See Rx Instructions .Route Qty: 12 0RF Rx Instructions: As directed furosemide 40 mg tablet 40 mg PO BID 90 Days Qty: 180 1RF Discharge Orders: Discharge Order (Routine); Ordered 12/14/24 Ordered By: Suresh Dawson Activity on Discharge: Use cane or walker Stand Alone Forms: Patient Portal Discharge page Print Language: [place] Citizen Care Plan Goals: See below Health Concerns: Acute hypoxic respiratory failure CHF exacerbation EZRA on CKD Acute on chronic anemia Fatigue, SOB Need for transfusion Plan of Treatment: You were admitted to the hospital for acute hypoxic respiratory failure and EZRA on CKD in the setting of CHF exacerbation. You were aggressively diuresed with improvement in lower leg edema, SOB, and kidney function. You also completed a course of antibiotics for possible pneumonia. You are eventually weaned off of supplemental oxygen and able to ambulate with a walker in your room and on the floor. Kidney function returned back to baseline. Hospital course was complicated by acute anemia requiring multiple transfusions. You were seen and evaluated by Hematology and should follow up with them outpatient. -- for CHF, continue home diuretics. -- for lower leg edema, continue home furosemide, ambulate as tolerated, elevate legs while at rest, and wear compression stockings 12 hours on, 12 hours off -- for CKD, follow up with Nephrology. You have an appointment with Dr. Hernandez tomorrow(12/15) at 10:30 at the [facility]. -- for acute on chronic anemia, you received Procrit x2 and transfused a total of 5 units of blood while in the hospital. You were seen and evaluated by Hematology and should follow up with Dr. Thornton in Hematology early next week for monitoring and additional workup, including likely outpatient bone biopsy. -- for osteomyelitis of left foot 5th digit, continued daptomycin every other day as previously scheduled with end date of 12/28/2024 -- you should continue all of your other home medications. Assessment: See discharge summary
--- NOTE | 2024-12-14 13:40 | W.MHC.F2F ---
Service Date Service Date: 12/14/24 Encounter Date of encounter: 12/14/24 Reasons for Services Signs and symptoms assessed: Generalized weakness, prolonged hospital stay Reason for shelter: administration of IV, SQ, or IM injection Reason for physical therapy: home safety and mobility Reason for occupational therapy: home safety and mobility Homebound: Leaving the home is medically contraindicated at this time without the asist of a device and/or another person due th the listed conditions above and below. Reason homebound: unsteady gait / fall risk Certification: Based on the above findings, I certify that this patient is confined to the home and needs intermittent shelter care, physical therapy and/or speech therapy, or continues to need occupational therapy. The patient is under my care, and I have initiated the establishment of the plan of care. The patient will be followed by a physician who will periodically review the plan of care. Time Spent With Patient Time: Total time managing care of this patient today ____ minutes.
--- NOTE | 2024-12-14 13:49 | MHC.CM.PN ---
Patient has been medically cleared for dc to home today, with resumption of services; [facility] have been made aware of today's dc and Patient has transportation to home.
== END 2024-12-14 14:20 | disposition home health service (06) | DRG 291 ==
LOC: HO.ED 11:52 → HO.EDOVER 12:43 → HO.IMC 18:56 → HO.EDOVER 18:57 → HO.IMC 19:50
PROVIDERS: Hospitalist; Internal Medicine; Physician Assistant; Physician Assistant Medical; Admitting Provider Student in an Organized Health Care Education/Training Program; Emergency Provider Emergency Medicine; PCP Nurse Practitioner Family; Visit Provider Student in an Organized Health Care Education/Training Program
DX: I13.0 Hypertensive heart and chronic kidney disease with heart failure and stage 1 through stage 4 chronic kidney disease, or unspecified chronic kidney disease (principal); I50.33 Acute on chronic diastolic (congestive) heart failure; J96.01 Acute respiratory failure with hypoxia; M86.9 Osteomyelitis, unspecified; E87.1 Hypo-osmolality and hyponatremia; N17.9 Acute kidney failure, unspecified; R65.10 Systemic inflammatory response syndrome (SIRS) of non-infectious origin without acute organ dysfunction; E11.69 Type 2 diabetes mellitus with other specified complication; E11.22 Type 2 diabetes mellitus with diabetic chronic kidney disease; N18.30 Chronic kidney disease, stage 3 unspecified; D63.1 Anemia in chronic kidney disease; E78.5 Hyperlipidemia, unspecified; G47.33 Obstructive sleep apnea (adult) (pediatric); Z20.822 Contact with and (suspected) exposure to COVID-19; Z87.891 Personal history of nicotine dependence; Z79.4 Long term (current) use of insulin; Z79.51 Long term (current) use of inhaled steroids; Z79.899 Other long term (current) drug therapy
CPT/HCPCS: 36415; 71045; 71250; 80048; 80053; 80076; 81001; 82272; 82550; 82607; 82728; 82746; 82803; 82947; 83010; 83605; 83615; 83735; 83880; 84145; 84484; 85025; 85027; 85045; 85652; 86140; 86850; 86880; 86900; 86901; 86923; 87040; 87637; 87640; 87641; 93005; 93306; 97110; 97116; 97162; 97530; 99213; 99285; J0131; J0692; J0696; J0878; J1642; J1938; P9016; Q5106; Q9957

== ENCOUNTER → 2024-12-05 10:51 | Outpatient (BNV) | payer OTHER, SELFPAY | PROVIDERS: Admitting Provider Student in an Organized Health Care Education/Training Program; Emergency Provider Emergency Medicine; PCP Nurse Practitioner Family; Visit Provider Internal Medicine Cardiovascular Disease | DX: R06.02 Shortness of breath (principal) | CPT/HCPCS: 93010 ==

== ENCOUNTER → 2024-12-05 11:45 | Outpatient (BNV) | payer OTHER, SELFPAY | PROVIDERS: Admitting Provider Student in an Organized Health Care Education/Training Program; Emergency Provider Emergency Medicine; PCP Nurse Practitioner Family; Visit Provider Radiology Diagnostic Radiology | DX: R16.2 Hepatomegaly with splenomegaly, not elsewhere classified (principal) | CPT/HCPCS: 71250 ==

== ENCOUNTER 2024-12-05 12:34 | Outpatient (BNV) | payer OTHER, SELFPAY | END 2024-12-07 17:07 | PROVIDERS: Admitting Provider Student in an Organized Health Care Education/Training Program; Emergency Provider Emergency Medicine; PCP Nurse Practitioner Family; Visit Provider Internal Medicine Cardiovascular Disease | DX: R07.9 Chest pain, unspecified (principal) | CPT/HCPCS: 93010 ==

== ENCOUNTER → 2024-12-05 12:34 | Outpatient (BNV) | payer OTHER, SELFPAY | PROVIDERS: Admitting Provider Student in an Organized Health Care Education/Training Program; Emergency Provider Emergency Medicine; PCP Nurse Practitioner Family; Visit Provider Nurse Practitioner Family | DX: N17.9 Acute kidney failure, unspecified (principal); N18.9 Chronic kidney disease, unspecified | CPT/HCPCS: 99222; 99232 ==

== ENCOUNTER → 2024-12-05 12:34 | Outpatient (BNV) | payer OTHER, SELFPAY | PROVIDERS: Admitting Provider Student in an Organized Health Care Education/Training Program; Emergency Provider Emergency Medicine; PCP Nurse Practitioner Family; Visit Provider Student in an Organized Health Care Education/Training Program | DX: I50.9 Heart failure, unspecified (principal); D64.9 Anemia, unspecified | CPT/HCPCS: 99223; 99233 ==

== ENCOUNTER → 2024-12-05 12:34 | Outpatient (BNV) | payer OTHER, SELFPAY | PROVIDERS: Admitting Provider Student in an Organized Health Care Education/Training Program; Emergency Provider Emergency Medicine; PCP Nurse Practitioner Family; Visit Provider Internal Medicine Pulmonary Disease | DX: J96.01 Acute respiratory failure with hypoxia (principal); R93.89 Abnormal findings on diagnostic imaging of other specified body structures; G47.33 Obstructive sleep apnea (adult) (pediatric); J81.1 Chronic pulmonary edema | CPT/HCPCS: 99222 ==

== ENCOUNTER → 2024-12-05 12:34 | Outpatient (BNV) | payer OTHER, SELFPAY | PROVIDERS: Admitting Provider Student in an Organized Health Care Education/Training Program; Emergency Provider Emergency Medicine; PCP Nurse Practitioner Family; Visit Provider Internal Medicine | DX: N18.30 Chronic kidney disease, stage 3 unspecified (principal); D63.1 Anemia in chronic kidney disease; G47.33 Obstructive sleep apnea (adult) (pediatric); I50.32 Chronic diastolic (congestive) heart failure | CPT/HCPCS: 99222 ==

== ENCOUNTER 2024-12-15 08:08 | Outpatient (REF) | payer OTHER, SELFPAY ==
[2024-12-15 09:14] LABS: Anion Gap 14 (12-20); Blood Urea Nitrogen 86 mg/dL (9-16); Carbon Dioxide 26 mmol/L (22-29); Chloride 102 mmol/L (96-108); Estimated Glomerular Filt Rate 20; Potassium 4.7 mmol/L (3.3-5.1); Sodium 137 mmol/L (135-145)
== END 2024-12-15 08:09 | disposition home or self-care (01) ==
LOC: HO.LAB 08:08
PROVIDERS: PCP Nurse Practitioner Family; Visit Provider Internal Medicine Nephrology
DX: I13.0 Hypertensive heart and chronic kidney disease with heart failure and stage 1 through stage 4 chronic kidney disease, or unspecified chronic kidney disease (principal); E11.22 Type 2 diabetes mellitus with diabetic chronic kidney disease; N18.30 Chronic kidney disease, stage 3 unspecified; I50.33 Acute on chronic diastolic (congestive) heart failure; N17.9 Acute kidney failure, unspecified
CPT/HCPCS: 36415; 80051; 82565; 84520

== ENCOUNTER 2024-12-15 10:21 | Outpatient (AMB) | payer OTHER, SELFPAY ==
--- OUTSIDE RECORDS SUMMARY | 2024-01-25 05:30 | XMS_ITS ---
Author Organization [facility] Address [address] [place] [address] Care Team Providers Care Vat Cleaner Name Role Phone Rc Sy.Quique Bhatt Primary Care Provider Higinio Mcmahon Unavailable [phone] Velia Siddiqui Unavailable Unavailable REASON FOR VISIT screening Problems Problem Type SNOMED Code ICD Code Onset Dates Problem Status W/U Status Risk Notes Problem Diverticulosis o f large intestine without perforation or abscess without bleeding (K57.30) Active confirmed Encounters Encounter Location Date Provider [place] [facility] [place] [address], [place] [phone] 01/25/2024 Higinio Zhang Colon cancer scree shanthi [...] * SOO FONSECA:[birth year] (54 yo M)Acc No.[id number]:01/25/2024 COLON WITH MAC Patient: JORGE DURANT Provider: Nicanor Zhang MD :1970 A ge:53 Y S ex:Male Date:01/25/2024 Address:[address] [place] [address] , [facility] Pcp:Quique Tatum N.P. Subjective: * Chief Complaints: [...] 01/25/2024 Generated for Nikkie kelley/Steven/Felixitting on: 0 12/15/2024 11:51 AM EDT
--- NOTE | 2024-12-15 10:27 | HO.NEPHOV_ITS ---
Vital Signs 12/15/24 10:32 Height 5 ft 9 in Weight 247 lb BMI 36.5 BP 122/50 L Blood Pressure Location Lt brachial Position Sitting Intake Visit Reasons: 2wk f/u w/labs-LVM Manager Neonatal Required: No Accompanied by: Significant Other Allergies No Known Allergies Allergy (Verified 12/15/24 10:31) HPI Comments Details: River was seen in follow up of his EZRA on CKD . He is diabetic and hypertensive with proteinuria. He recently had EZRA likely secondary to cytokine release from infection and altered regulation in the kidney . His ARB and Jardiance has been put on hold. He denies any active chest pain, shortness of breath, paroxysmal nocturnal dyspnea, orthopnea, joint swellings, epistaxis, sinusitis, skin rashes, history of renal artery stenosis, history of carotid stenosis, large, vomiting, diarrhea, hematuria. His serum creatinine has plateaued . His edema is better with improvement in renal function [facility] Medical History CKD (chronic kidney disease) stage 3, GFR 30-59 ml/min Sleep apnea Chronic heart failure with preserved ejection fraction (HFpEF) Elevated cholesterol Iron deficiency anemia Chronic renal insufficiency Diabetic nephropathy Acute heart failure with preserved ejection fraction (HFpEF) Necrotizing subcutaneous infection Hypertension Type 2 diabetes Surgical History History of pyloromyotomy Status post incision and drainage [place] teeth removed Family History Mother Diabetes Maternal Uncle Diabetes Sister Multiple sclerosis Father Liver failure Kidney failure Social History Household Members: Significant Other and Children Both parents involved: No Caregiver staying overnight: No Housing: House Are you a primary primary care md to a significant other at home: No Do you presently have visiting nurse or other home services: Yes 75 years or older and lives alone: No Alcohol intake: current Alcohol intake frequency: holidays/special occasions only Alcohol type: beer Patient Tobacco Use Status: Former Tobacco user Tobacco use type: Cigarette Years Smoked: 4 e-Cigarette/Vaping Use: Never Used Second Hand Smoke Exposure: No Substance Use Type: Marijuana Advance Directives Date on File: 05/07/23 service: No Current occupational status: employed Current occupation: [employer] Current occupational exposures/hazards: No Cognitive needs: No Hearing needs: No Vision needs: No Review of Systems Const All systems reviewed & are unremarkable except as noted in HPI and below Physical Exam Vital Signs: Last Vital Signs BP 122/50 L 12/15/24 10:32 BMI result Body Mass Index 36.5 Const General: comfortable and no acute distress Orientation/consciousness: patient oriented x3 HEENT Head: Yes normocephalic Mouth: Normal oral and palatal mucosa present Eyes EOM: EOMs intact bilaterally Neck Neck: Yes supple Resp Auscultation: clear to auscultation bilaterally Cardio Jugular venous distension: no JVD Rate: regular rate GI Palpation (GI): Soft to palpation Auscultation: normal bowel sounds General: Yes no CVA tenderness Back/Spine/Pelvis Back: no CVA tenderness Skin General skin exam: no rashes or lesions noted Neuro General: patient oriented x3 and moves all extremities Results Reviewed Nephrology Results: Hgb, (14.0-18.0) 8.3 g/dl L 12/14/24 WBC, (4.8-10.8) 13.1 X10*3/uL H 12/14/24 Plt Count, (160-400) 297 X10*3/uL 12/14/24 Sodium, (135-145) 137 mmol/L Today Potassium, (3.3-5.1) 4.7 mmol/L Today Chloride, (96-108) 102 mmol/L Today Carbon Dioxide, (22-29) 26 mmol/L Today BUN, (9-16) 86 mg/dL H Today Creatinine, (0.5-1.4) 3.27 mg/dL H Today Calcium, (8.4-10.2) 9.0 mg/dL Δ 12/14/24 Urine Protein, (Neg-Trace) 100 (2+) mg/dL H 12/05/24 Renal US 06/04/23 Assessment & Plan Assessment & Plan (1) Hypertension: Code(s): I10 - Essential (primary) hypertension Category: Medical Qualifiers: Hypertension type: primary hypertension Qualified Code(s): I10 - Essential (primary) hypertension (2) Acute kidney injury superimposed on CKD: Code(s): N17.9 - Acute kidney failure, unspecified; N18.9 - Chronic kidney disease, unspecified Category: Medical (3) Diabetic nephropathy: Code(s): E11.21 - Type 2 diabetes mellitus with diabetic nephropathy Category: Medical Qualifiers: Diabetes mellitus type: type 2 Qualified Code(s): E11.21 - Type 2 diabetes mellitus with diabetic nephropathy (4) CKD stage 3 due to type 2 diabetes mellitus: Code(s): E11.22 - Type 2 diabetes mellitus with diabetic chronic kidney disease; N18.30 - Chronic kidney disease, stage 3 unspecified Category: Medical Plan River has 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 He has obesity. He has underlying diabetic nephropathy. He has H/O decompensated diastolic heart failure. He developed EZRA which is improving. His ARB and Jardiance has been put on hold. His urine output is good. He can cut back his metalozone to once a day for next 10 days. He did not have a renal biopsy yet. He does not need renal replacement now. He was counseled to maintain good blood pressure and good blood sugar control. All these have been discussed in detail. Further management is pending evolving data. All questions answered. Follow-up appointment given Orders: Orders Creatinine 2 Weeks I10 - Essential (primary) hypertension, N17.9 - Acute kidney failure, unspecified, N18.9 - Chronic kidney disease, unspecified Electrolytes 2 Weeks I10 - Essential (primary) hypertension, N17.9 - Acute kidney failure, unspecified, N18.9 - Chronic kidney disease, unspecified Blood Urea Nitrogen 2 Weeks I10 - Essential (primary) hypertension, N17.9 - Acute kidney failure, unspecified, N18.9 - Chronic kidney disease, unspecified Coding Level of Care Code Est Pt Level 4 (49126) Diagnoses Primary hypertension I10 Hypertension type: primary hypertension Acute kidney injury superimposed on CKD N17.9; N18.9 Diabetic nephropathy associated with type 2 diabetes mellitus E11.21 Diabetes mellitus type: type 2 CKD stage 3 due to type 2 diabetes mellitus E11.22; N18.30
[2024-12-15 10:32] VITALS: BP 122/50; BMI 36.5
== END 2024-12-15 10:50 | disposition home or self-care (01) ==
LOC: HO.HKAS 10:22
PROVIDERS: PCP Nurse Practitioner Family; Visit Provider Internal Medicine Nephrology
DX: I12.9 Hypertensive chronic kidney disease with stage 1 through stage 4 chronic kidney disease, or unspecified chronic kidney disease (principal); N17.9 Acute kidney failure, unspecified; N18.9 Chronic kidney disease, unspecified; E11.21 Type 2 diabetes mellitus with diabetic nephropathy; E11.22 Type 2 diabetes mellitus with diabetic chronic kidney disease; N18.30 Chronic kidney disease, stage 3 unspecified
CPT/HCPCS: 99214

== ENCOUNTER 2024-12-19 10:42 | Outpatient (AMB) | payer OTHER, SELFPAY ==
--- OUTSIDE RECORDS SUMMARY | 2024-01-25 05:30 | XMS_ITS ---
Author Organization [facility] Address [address] [place] [address] Care Team Providers Care Pulp Roller Name Role Phone Rc Sy.Quique Bhatt Primary Care Provider Higinio Mcmahon Unavailable [phone] Velia Siddiqui Unavailable Unavailable REASON FOR VISIT screening Problems Problem Type SNOMED Code ICD Code Onset Dates Problem Status W/U Status Risk Notes Problem Diverticulosis o f large intestine without perforation or abscess without bleeding (K57.30) Active confirmed Encounters Encounter Location Date Provider Diagnosis [facility] [place] [address] [place], [place] [phone] 01/25/2024 Higinio Zhang Colon cancer scree shanthi [...] * SOO FONSECA:[birth year] (54 yo M)Acc No.[id number]:01/25/2024 COLON WITH MAC Patient: JORGE DURANT Provider: Nicanor Zhang MD :1970 A ge:53 Y S ex:Male Date:01/25/2024 Address:[address] [place] [address] , [facility] Pcp:Quique Tatum N.P. Subjective: * Chief Complaints: [...] MD Date: 0 01/25/2024 Generated for Nikkie kelley/Steven/Felixitting on: 0 12/19/2024 11:56 AM EDT
--- NOTE | 2024-12-19 10:52 | MHC.PC.OV ---
Vital Signs 12/19/24 10:58 12/19/24 11:32 Height 5 ft 8 in Weight 244 lb 2 oz BMI 37.1 BP 188/81 H 168/80 H Blood Pressure Location Rt brachial Rt brachial Position Sitting Sitting Respiration 16 Pulse 73 Pulse Source Pulse Oximeter Temp 98.0 F Temp Source Oral Pulse Oximetry (%) 96 Oxygen Delivery Method Room Air Intake Visit Reasons: 1 mos HTN RE Intake Note: patient here for 1 month follow up on HTN Fire Chief'S Aide Required: No Allergies No Known Allergies Allergy (Verified 12/19/24 11:20) Medication List - Last Reviewed 12/19/24 by Latasha Blanco MA acetaminophen 1,000 mg PO BID PRN atorvastatin (Lipitor) 40 mg PO BEDTIME blood sugar diagnostic (FreeStyle Lite Strips) Test four times a day or as directed. blood-glucose meter (FreeStyle Lite Meter kit) As Directed carvedilol 25 mg See Protocol PO BID cholecalciferol (vitamin D3) 50 mcg PO BEDTIME clonidine HCl 0.2 mg PO BID 90 days comp.stocking,knee,long,medium As directed cyclobenzaprine 10 mg PO TID PRN daptomycin 650 mg IV Q48H fenofibrate 54 mg PO DAILY fluticasone propionate 50 mcg/actuation 2 sprays intranasal BID PRN furosemide 40 mg PO BID 90 days hydralazine 50 mg See Protocol PO TID insulin glargine (Basaglar KwikPen U-100 Insulin) 12 units (0.12 mL) subcut DAILY@1700 insulin lispro (Humalog KwikPen (U-100) Insulin) See Protocol sliding scale doses subcut QIDACHS isosorbide mononitrate ER 30 mg See Protocol PO DAILY lancets (FreeStyle Lancets) TEST FOUR TIMES A DAY OR DIRECTED. metolazone 5 mg PO DAILY multivitamin 1 tab PO DAILY omega-3 fatty acids-fish oil 684-1,200 mg 1 cap PO DAILY pen needle, diabetic USE FOUR TIMES A DAY OR DIRECTED. sodium polystyrene sulfonate 30 grams PO MOWEFR zinc acetate 25 mg PO DAILY Tobacco use date assessed: 12/19/24 Dental Screening Dental Screen Date: 12/19/24 Did you have a dental visit in the last 12 months?: No Did you have a dental problem in the last 6 months where you did not have access to dental care?: No Was dental information given to patient?: Patient has dentist HPI HPI Comments History of Present Illness Details 54-year-old male presents for hypertension and recent hospital discharge follow-up. He admits to taking his medications as prescribed without adverse reactions. He notes that he has been making healthy lifestyle choices, including low-sodium. He offers no complaints and denies acute symptoms at this time. [place] [facility] [place] and 12/14/2024 for acute hypoxic respiratory failure, EZRA on CKD in the setting of CHF exacerbation, and osteomyelitis of left 3th toe. He was discharged on daptomycin 650 mg IV q.48h (currently admin. by [facility]) and metolazone 5mg BID, changed to 5mg daily x 10 at his recent nephrology's visit. Atorvastatin is on hold until completion of daptomycin on 12/28/2024. He is [place] [facility] [place]. He notes that he is feeling a lot better. He has not complaints today. No acute distress at this time. [facility] Medical History CKD (chronic kidney disease) stage 3, GFR 30-59 ml/min Sleep apnea Chronic heart failure with preserved ejection fraction (HFpEF) Elevated cholesterol Iron deficiency anemia Chronic renal insufficiency Diabetic nephropathy Acute heart failure with preserved ejection fraction (HFpEF) Necrotizing subcutaneous infection Hypertension Type 2 diabetes Surgical History History of pyloromyotomy Status post incision and drainage [place] teeth removed Family History Mother Diabetes Maternal Uncle Diabetes Sister Multiple sclerosis Father Liver failure Kidney failure Social History Household Members: Significant Other and Children Both parents involved: No Caregiver staying overnight: No Housing: House Are you a primary home care physical therapist to a significant other at home: No Do you presently have visiting nurse or other home services: Yes 75 years or older and lives alone: No Alcohol intake: current Alcohol intake frequency: holidays/special occasions only Alcohol type: beer Patient Tobacco Use Status: Former Tobacco user Tobacco use type: Cigarette Years Smoked: 4 e-Cigarette/Vaping Use: Never Used Second Hand Smoke Exposure: No Substance Use Type: Marijuana Advance Directives Date on File: 05/07/23 service: No Current occupational status: employed Current occupation: [employer] Current occupational exposures/hazards: No Cognitive needs: No Hearing needs: No Vision needs: No Questionnaire Thrive Questionnaire Date Thrive assessed: 12/07/24 I am a: Patient What is your living situation today?: I have a steady place to live Within the past 12 months, did the food you bought not last and you didn't have the money to get more?: Sometimes True Within the past 12 months, did you worry whether your food would run out before you got money to buy more?: Sometimes True Do you have trouble paying for medicines?: Yes Do you have trouble getting transportation to medical appointments?: No Do you have trouble paying your heating and electricity bill?: Yes Do you have trouble taking care of your child, family member or friend?: No Do you have trouble with day-to-day activities such as bathing, preparing meals, shopping, managing finances, etc.?: No Are you currently unemployed and looking for a job?: No Are you interested in more education?: I choose not to answer this question Currently or been in a relationship where the following occur: No concerns reported THRIVE Score: 3 UTE-7 AMB Questionnaire UTE-7 Date UTE - 7 assessed: 09/13/24 Source: Developed by Drs. Higinio Rodriguez, Olivia Rayo, Edilberto Freeman and colleagues, with an educational smitha from [employer]. Review of Systems Const Details: Const Denies chills, Denies fatigue, Denies fever(s), Denies headache(s) and Denies weakness ENT Denies dizziness and Denies headache(s) Card Denies chest pain, Denies lightheadedness, Denies dyspnea and Denies other (Palpitations) Resp Denies cough, Denies dyspnea, Denies wheezing and Denies other ( shortness of breath) GI Denies abdominal pain, Denies melena, Denies hematochezia, Denies change in bowel habits, Denies dyspepsia and Denies nausea Denies hematuria and Denies dysuria Musc Denies abnormal gait, Denies myalgias, Denies arthralgias, Denies numbness and Denies tingling Skin/Breast Report wound, Denies rash, Denies unusual bruising Neuro Denies abnormal gait, Denies dizziness, Denies headache(s), Denies memory loss, Denies numbness, Denies Sensory deficit (Neuro), Denies tingling and Denies weakness Psych Denies anxiety, Denies depression, Denies memory loss Endo Denies cold intolerance, Denies fatigue, Denies heat intolerance, Denies polydipsia and Denies polyuria Aller/Immun Denies wheezing Physical exam (Primary Care) Vital Signs: Last Vital Signs Temp 98.0 F 12/19/24 10:58 Pulse 73 12/19/24 10:58 Resp 16 12/19/24 10:58 BP 168/80 H 12/19/24 11:32 Pulse Ox 96 12/19/24 10:58 Oxygen Delivery Method Room Air 12/19/24 10:58 BMI result Body Mass Index 37.1 Tobacco/Smoking Status: Tobacco use Status Tobacco use date assessed 12/19/24 12/19/24 11:01 Patient Tobacco Use Status Former Tobacco user 12/19/24 10:54 Tobacco use type Cigarette 12/19/24 10:54 e-Cigarette/Vaping Use Never Used 12/19/24 10:54 Thrive Assessment: Date of Thrive Assessment Date Thrive assessed 12/07/24 12/19/24 10:54 Currently or been in a relationship where the following occur: No concerns reported Const Other: General: no acute distress and well developed Nutritional Appearance: well nourished Orientation/consciousness: patient oriented x3 HENMT Head: Yes normocephalic and Yes atraumatic Eyes General: appearance normal, both eyes and all related structures Pupils: Equal, round and reactive pupils present EOM: EOMs intact bilaterally Resp Effort & Inspection: normal respiratory effort Auscultation: clear to auscultation bilaterally Cardio Rate: regular rate Rhythm: regular rhythm Heart sounds: S1 normal heart sound present, S2 normal heart sound present, no gallops, no murmurs and no rubs GI Palpation (GI): No Abdominal aortic bruit present, Soft to palpation, nontender, No hepatosplenomegaly present and No Rebound tenderness present Auscultation: normal bowel sounds General: Yes no CVA tenderness Back/Spine/Pelvis Back: no CVA tenderness Cervical Spine: cervical ROM normal and No Cervical spine tenderness Thoracic/Lumbar Spine: thoraco-lumbar ROM normal, No pain with thoraco-lumbar ROM, No thoracic spinal tenderness and No lumbar spinal tenderness Extrem General: Yes normal to inspection, and No calf tenderness. 2+ edema to bilateral ankle and feet Skin General: warm and dry. Normal skin color. Normal skin turgor Neuro General: patient oriented x3, gait normal and no focal neuro deficit Cranial nerves: Yes Equal, round and reactive pupils present Cognition (Neuro): normal cognition Gait exam (Neuro): Normal gait present Sensory Exam: No Sensory deficit (Neuro) Psych Appearance: grossly normal Affect: normal affect Attitude: cooperative Thought process: Normal thought process present Coding Level of Care Code Est Pt Level 4 (79424) Diagnoses Primary hypertension I10 Hypertension type: primary hypertension Edema of both feet R60.0 Toe osteomyelitis, left M86.9 Iron deficiency anemia D50.9 Anemia in stage 3a chronic kidney disease N18.31; D63.1 Chronic kidney disease stage: stage 3 (moderate) Chronic kidney disease stage 3 subtype: stage 3a (GFR 45-59) Hospital discharge follow-up Z09 Assessment & Plan Assessment & Plan (1) Hypertension: Code(s): I10 - Essential (primary) hypertension Category: Medical Qualifiers: Hypertension type: primary hypertension Qualified Code(s): I10 - Essential (primary) hypertension Plan: Resting blood pressure is 168/80, above goal of less than 130/80. Will increase clonidine to 0.2 mg 3 times daily; advised to take as prescribed. Instructed on the risks, benefits, and potential adverse reactions of the medication. Continue current treatment regimen. Follow-up in 1 week or sooner with symptoms or concerns. Verbalized understanding and agreed with the plan. (2) Edema of both feet: Code(s): R60.0 - Localized edema Category: Medical Plan: 2+ edema to bilateral ankle and feet. Continue current treatment regimen. Elevate bilateral lower extremity to for promote blood return. Follow-up with worsening or new symptoms. Verbalized understanding and agreed with the plan. (3) Toe osteomyelitis, left: Code(s): M86.9 - Osteomyelitis, unspecified Category: Medical Plan: Daily wound care perform by [facility]. Clean, dry, and intact dressing to left 3rd toe. Continue current treatment regimen. Follow-up with worsening or new symptoms. Verbalized understanding and agreed with the plan. (4) Iron deficiency anemia: Code(s): D50.9 - Iron deficiency anemia, unspecified Category: Medical Plan: Recent RBC and H&H are slightly low, 3.15 and 9/28.8 respectively. Recent BUN and creatinine are elevated, 67/2.85 respectively. Continue current treatment regimen. [place] [facility] [place] and [place]. Verbalized understanding and agreed with the plan. (5) Anemia in chronic kidney disease (CKD): Code(s): N18.9 - Chronic kidney disease, unspecified; D63.1 - Anemia in chronic kidney disease Category: Medical Qualifiers: Chronic kidney disease stage: stage 3 (moderate) Chronic kidney disease stage 3 subtype: stage 3a (GFR 45-59) Qualified Code(s): N18.31 - Chronic kidney disease, stage 3a; D63.1 - Anemia in chronic kidney disease Plan: Plan as above. (6) Hospital discharge follow-up: Code(s): Z09 - Encounter for follow-up examination after completed treatment for conditions other than malignant neoplasm Category: Medical Plan: Plan as above. Medications: Changed From clonidine HCl 0.2 mg PO BID 90 days 180 tabs 1RF To clonidine HCl 0.2 mg PO TID 270 tabs 1RF 90 days
[2024-12-19 10:58] VITALS: BP 188/81; PULSE 73; RESP 16; TEMP 36.7; O2SAT 96; BMI 37.1
[2024-12-19 11:32] VITALS: BP 168/80
== END 2024-12-19 11:39 | disposition home or self-care (01) ==
LOC: HO.HMCFM 10:44
PROVIDERS: PCP Nurse Practitioner Family; Visit Provider Nurse Practitioner Family
DX: I12.9 Hypertensive chronic kidney disease with stage 1 through stage 4 chronic kidney disease, or unspecified chronic kidney disease (principal); M86.9 Osteomyelitis, unspecified; N18.31 Chronic kidney disease, stage 3a; R60.0 Localized edema; D50.9 Iron deficiency anemia, unspecified; D63.1 Anemia in chronic kidney disease; Z09 Encounter for follow-up examination after completed treatment for conditions other than malignant neoplasm

== ENCOUNTER 2024-12-28 14:48 | Outpatient (AMB) | payer OTHER, SELFPAY ==
--- OUTSIDE RECORDS SUMMARY | 2024-01-25 05:30 | XMS_ITS ---
Author Organization [facility] Address [address] [place] [address] Care Team Providers Care Wrapper Dipper Name Role Phone Quique Tatum N.P. Primary Care Provider Higinio Mcmahon Unavailable [phone] Velia Siddiqui Unavailable Unavailable REASON FOR VISIT screening Problems Problem Type SNOMED Code ICD Code Onset Dates Problem Status W/U Status Risk Notes Problem Diverticular disease of colon (694103645) Diverticulosis of large intestine without perforation or abscess without bleeding (K57.30) Active confirmed Encounters Encounter Location Date Provider Diagnosis [facility] [place] Out[place] [address] [place] [id number] 01/25/2024 Higinio Zhang Colon cancer scree shanthi [...] * SOO FONSECA:[birth year] (54 yo M)Acc No.[id number]:01/25/2024 COLON WITH MAC Patient: JORGE DURANT Provider: Nicanor Zhang MD :1970 A ge:53 Y S ex:Male Date:01/25/2024 Address:[address] [place] [address] , [facility] Pcp:Quique Tatum N.P. Subjective: * Chief Complaints: [...] Pending * Provider: Nicanor Zhang MD Date: 01/25/2024 Generated for Nikkie kelley/Steven/Franciscosmitting on: 12/28/2024 05:05 PM EDT
[2024-12-28 15:27] VITALS: BP 156/84; PULSE 70; O2SAT 96
--- NOTE | 2024-12-28 15:27 | A.OFFVIS_ITS ---
Vital Signs 3 12/28/24 15:27 Height 5 ft 8 in BP 156/84 H Pulse 70 Pulse Oximetry (%) 96 Intake Visit Reasons: [facility] Reff/ Infection Allergies No Known Allergies Allergy (Verified 12/28/24 15:28) HPI HPI [facility] Reff/ Infection: Details: He is feeling well and says foot feels well. He is finished antibiotics. [facility] Medical History Abnormal CT scan, chest Acute on chronic anemia Hyponatremia Severe obstructive sleep apnea CKD stage 3 due to type 2 diabetes mellitus Anemia Diabetes Osteomyelitis of third toe of left foot CKD (chronic kidney disease) stage 3, GFR 30-59 ml/min Sleep apnea Chronic heart failure with preserved ejection fraction (HFpEF) Elevated cholesterol Iron deficiency anemia Chronic renal insufficiency Diabetic nephropathy Acute heart failure with preserved ejection fraction (HFpEF) Necrotizing subcutaneous infection Hypertension Type 2 diabetes Surgical History History of pyloromyotomy Status post incision and drainage [place] teeth removed Family History Mother Diabetes Maternal Uncle Diabetes Sister Multiple sclerosis Father Liver failure Kidney failure Social History Household Members: Significant Other and Children Both parents involved: No Caregiver staying overnight: No Housing: House Are you a primary healthcare economics manager to a significant other at home: No Do you presently have visiting nurse or other home services: Yes 75 years or older and lives alone: No Alcohol intake: current Alcohol intake frequency: holidays/special occasions only Alcohol type: beer Patient Tobacco Use Status: Former Tobacco user Tobacco use type: Cigarette Years Smoked: 4 e-Cigarette/Vaping Use: Never Used Second Hand Smoke Exposure: No Substance Use Type: Marijuana Advance Directives Date on File: 05/07/23 service: No Current occupational status: employed Current occupation: [employer] Current occupational exposures/hazards: No Cognitive needs: No Hearing needs: No Vision needs: No Review of Systems Const All systems reviewed & are unremarkable except as noted in HPI and below Physical Exam Vital Signs: Last Vital Signs Pulse 70 12/28/24 15:27 BP 156/84 H 12/28/24 15:27 Pulse Ox 96 12/28/24 15:27 Const Other: General: cooperative Assessment & Plan Assessment & Plan (1) Toe osteomyelitis, left: Comment: He is finishing six weeks Daptomycin Code(s): M86.9 - Osteomyelitis, unspecified Category: Medical Plan: No further antibiotics. Orders: Orders 2 IR cvc remove any age Today M86.9 - Osteomyelitis, unspecified Coding Level of Care Code Est Pt Level 3 (62735) Diagnoses Toe osteomyelitis, left M86.9
--- OUTSIDE RECORDS SUMMARY | 2024-12-28 17:05 | XMS_ITS | Patient Health Record ---
Author Organization [facility] Address [address] [place] [address] Care Team Providers Care Senior Rd Engineer Name Role Phone Quique Tatum N.P. Primary Care Provider Higinio Mcmahon Unavailable [phone] Velia Siddiqui Unavailable Unavailable Allergies No Known Allergies Results Component Value Reference Range Notes Glucose, Whole Blood Reviewed date:01/25/2024 06:13:15 PM Interpretation: Performing Lab:[facility], [address] [place] [phone] Notes/Report: Glucose, Whole Blood 162 60-115 mg/dL METER # : [id number] Pathology (Not yet reviewed by provider) Interpretation: Performing Lab:[facility], [address] [place] [phone] Notes/Report: Reason For Referral No Information Medications Medication [...] Calcium 40 MG Oral for 90 Active [place] 3 Active Basaglar KwikPen 100 UNIT/ML Subcutaneous [...] Status Risk Notes Problem Colon cancer screening (902069512) Colon cancer screening (Z12.11) Active confirmed Problem Pre-procedure evaluation check (086151820) Encounter for other preprocedural examination (Z01.818) Active confirmed Problem Diverticular disease of colon (227506907) Diverticulosis of large intestine without perforation or abscess without bleeding (K57.30) Active confirmed Encounters Encounter Location Date Provider Diagnosis [facility] [place] Out[place] [address] [place] [id number] 01/25/2024 Higinio Zhang Colon cancer scree shanthi [...] Coverage Start Date Coverage End Date ALEX WAITE [id number] LOLA BONNER [id number] [phone] [id number] JORGE FONSECA Self - patient is the insured Medical (General) History Medical History History ICD Code Sleep apnea - CPAP machine 09/2023 DM Hypertension CKD stage 3 Anemia Hypercholesterolemia Denies [place],CVA,Lung disease Surgical History Surgery Date(Month/Year) [place] teeth Perirectal abscess -Dr. Valverde--in [facility] for about a week 02/2022
== END 2024-12-28 16:00 | disposition home or self-care (01) ==
LOC: HO.HID 14:48
PROVIDERS: PCP Nurse Practitioner Family; Visit Provider Internal Medicine
DX: M86.9 Osteomyelitis, unspecified (principal)
CPT/HCPCS: 99213

== ENCOUNTER 2024-12-29 08:11 | Outpatient (REF) | payer OTHER, SELFPAY ==
--- OUTSIDE RECORDS SUMMARY | 2024-01-25 05:30 | XMS_ITS ---
Author Organization [facility] Address [address] [place] [address] Care Team Providers Care Forming And Assembling Supervisor Name Role Phone Quique Tatum N.P. Primary Care Provider Higinio Mcmahon Unavailable [phone] Velia Siddiqui Unavailable Unavailable REASON FOR VISIT screening Problems Problem Type SNOMED Code ICD Code Onset Dates Problem Status W/U Status Risk Notes Problem Diverticular disease of colon (228592957) Diverticulosis of large intestine without perforation or abscess without bleeding (K57.30) Active confirmed Encounters Encounter Location Date Provider Diagnosis [facility] [address] [place] [phone] 01/25/2024 Higinio Zhang Colon cancer scree shanthi [...] * SOO FONSECA:[birth year] (54 yo M)Acc No.[id number]:01/25/2024 COLON WITH MAC Patient: JORGE DURANT Provider: Nicanor Zahng MD :1970 A ge:53 Y S ex:Male Date:01/25/2024 Address:[address] [place] [address] , [facility] Pcp:Quique Tatum N.P. Subjective: * Chief Complaints: [...] 0 01/25/2024 Generated for Nikkie kelley/Steven/Nickransmitting on: 12/29/2024 08:27 AM EDT
--- OUTSIDE RECORDS SUMMARY | 2024-12-29 08:28 | XMS_ITS | Patient Health Record ---
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 Primary Care Provider Higinio Mcmahon Unavailable [phone] Velia Siddiqui Unavailable Unavailable Allergies No Known Allergies Results Component Value Reference Range Notes Glucose, Whole Blood Reviewed date:01/25/2024 06:13:15 PM Interpretation: Performing Lab:[facility], [address] [place] [phone] Notes/Report: Glucose, Whole Blood 162 60-115 mg/dL METER # : [id number] Pathology (Not yet reviewed by provider) Interpretation: Performing Lab:[facility], [address] [place] [phone] Notes/Report: Reason For Referral No Information Medications [...] Calcium 40 MG Oral for 90 Active [place] 3 Active Basaglar KwikPen 100 UNIT/ML Subcutaneous [...] Status Risk Notes Problem Colon cancer screening (658441903) Colon cancer screening (Z12.11) Active confirmed Problem Pre-procedure evaluation check (713852317) Encounter for other preprocedural examination (Z01.818) Active confirmed Problem Diverticular disease of colon (678100644) Diverticulosis of large intestine without perforation or abscess without bleeding (K57.30) Active confirmed Encounters Encounter Location Date Provider Diagnosis [facility] [place] [address] [place] [id number] 01/25/2024 Higinio Zhang Colon cancer scree sh[place]hi [...] Start Date Coverage End Date ALEX WAITE [id number] LOLA BONNER [id number] JORGE FONSECA Self - patient is the insured Medical (General) History Medical History History ICD Code Sleep apnea - CPAP machine 09/2023 DM Hypertension CKD stage 3 Anemia Hypercholesterolemia Denies [place],CVA,Lung disease Surgical History Surgery Date(Month/Year) [place] teeth Perirectal abscess -Dr. Valverde--in [facility] for about a week 02/2022
[2024-12-29 10:27] LABS: Anion Gap 13 (12-20); Blood Urea Nitrogen 65 mg/dL (9-16); Carbon Dioxide 22 mmol/L (22-29); Chloride 105 mmol/L (96-108); Estimated Glomerular Filt Rate 23; Potassium 4.6 mmol/L (3.3-5.1); Sodium 135 mmol/L (135-145)
== END 2024-12-29 08:12 | disposition home or self-care (01) ==
LOC: HO.LAB 08:11
PROVIDERS: PCP Nurse Practitioner Family; Visit Provider Internal Medicine Nephrology
DX: I12.9 Hypertensive chronic kidney disease with stage 1 through stage 4 chronic kidney disease, or unspecified chronic kidney disease (principal); N18.9 Chronic kidney disease, unspecified; N17.9 Acute kidney failure, unspecified
CPT/HCPCS: 36415; 80051; 82565; 84520

== ENCOUNTER 2024-12-30 09:49 | Outpatient (AMB) | payer OTHER, SELFPAY ==
--- OUTSIDE RECORDS SUMMARY | 2024-01-25 05:30 | XMS_ITS ---
Author Organization [facility] Address [address] [place] [address] Care Team Providers Care Special Events Coordinator Name Role Phone Quique Tatum N.P. Primary Care Provider Higinio Mcmahon Unavailable [phone] Velia Siddiqui Unavailable Unavailable REASON FOR VISIT screening Problems Problem Type SNOMED Code ICD Code Onset Dates Problem Status W/U Status Risk Notes Problem Diverticular disease of colon (248396855) Diverticulosis of large intestine without perforation or abscess without bleeding (K57.30) Active confirmed Encounters Encounter Location Date Provider Diagnosis [facility] [place] Out[place] [address] [place] [phone] 01/25/2024 Higinio Zhang Colon cancer scree shanthi [...] * SOO FONSECA:[birth year] (54 yo M)Acc No.[id number]:01/25/2024 COLON WITH MAC Patient: JORGE DURANT Provider: Nicanor Zhang MD :1970 A ge:53 Y S ex:Male Date:01/25/2024 Address:[address] [place] [address] , [facility] Pcp:Quique Tatum N.P. Subjective: * Chief Complaints: [...] 0 01/25/2024 Generated for Nikkie kelley/Steven/eTransmitting on: 0 12/30/2024 10:36 AM EDT
--- NOTE | 2024-12-30 10:05 | HO.NEPHOV ---
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 He is diabetic and hypertensive with proteinuria. He recently had EZRA likely secondary to cytokine release from infection and altered regulation in the kidney . His ARB and Jardiance has been put on hold. He denies any active chest pain, shortness of breath, paroxysmal nocturnal dyspnea, orthopnea, joint swellings, epistaxis, sinusitis, skin rashes, history of renal artery stenosis, history of carotid stenosis, large, vomiting, diarrhea, hematuria. His serum creatinine has plateaued . His edema is better with stable renal function [facility] Medical History (Updated 12/30/24 @ 10:19 by Jovani Hernandez MD) CKD stage 3 due to type [address] scan, chest Acute on chronic anemia Hyponatremia Severe obstructive sleep apnea Anemia Diabetes Osteomyelitis of third toe of left foot CKD (chronic kidney disease) stage 3, GFR 30-59 ml/min Sleep apnea Chronic heart failure with preserved ejection fraction (HFpEF) Elevated cholesterol Iron deficiency anemia Chronic renal insufficiency Diabetic nephropathy Acute heart failure with preserved ejection fraction (HFpEF) Necrotizing subcutaneous infection Hypertension Type 2 diabetes Surgical History History of pyloromyotomy Status post incision and drainage [place] teeth removed Family History Mother Diabetes Maternal Uncle Diabetes Sister Multiple sclerosis Father Liver failure Kidney failure Social History Household Members: Significant Other and Children Both parents involved: No Caregiver staying overnight: No Housing: House Are you a primary care transition coordinator to a significant other at home: No Do you presently have visiting nurse or other home services: Yes 75 years or older and lives alone: No Alcohol intake: current Alcohol intake frequency: holidays/special occasions only Alcohol type: beer Patient Tobacco Use Status: Former Tobacco user Tobacco use type: Cigarette Years Smoked: 4 e-Cigarette/Vaping Use: Never Used Second Hand Smoke Exposure: No Substance Use Type: Marijuana Advance Directives Date on File: 05/07/23 service: No Current occupational status: employed Current occupation: [employer] Current occupational exposures/hazards: No Cognitive needs: No Hearing needs: No Vision needs: No Review of Systems Const All systems reviewed & are unremarkable except as noted in HPI and below Physical Exam Vital Signs: Last Vital Signs Pulse 62 12/30/24 10:07 BP 126/50 L 12/30/24 10:07 Pulse Ox 97 12/30/24 10:07 Oxygen Delivery Method Room Air 12/30/24 10:07 BMI result Body Mass Index 36.3 Const General: comfortable and no acute distress Orientation/consciousness: patient oriented x3 HEENT Head: Yes normocephalic Mouth: Normal oral and palatal mucosa present Eyes EOM: EOMs intact bilaterally Neck Neck: Yes supple Resp Auscultation: clear to auscultation bilaterally Cardio Jugular venous distension: no JVD Rate: regular rate GI Palpation (GI): Soft to palpation Auscultation: normal bowel sounds General: Yes no CVA tenderness Back/Spine/Pelvis Back: no CVA tenderness Skin General skin exam: no rashes or lesions noted Neuro General: patient oriented x3 and moves all extremities Extrem General: Yes no pedal edema Results Reviewed Nephrology Results: Hgb, (14.0-18.0) 9.0 g/dl L 12/19/24 WBC, (4.8-10.8) 9.7 X10*3/uL 12/19/24 Plt Count, (160-400) 279 X10*3/uL 12/19/24 Sodium, (135-145) 135 mmol/L 12/29/24 Potassium, (3.3-5.1) 4.6 mmol/L 12/29/24 Chloride, (96-108) 105 mmol/L 12/29/24 Carbon Dioxide, (22-29) 22 mmol/L 12/29/24 BUN, (9-16) 65 mg/dL H 12/29/24 Creatinine, (0.5-1.4) 2.91 mg/dL H 12/29/24 Calcium, (8.4-10.2) 8.8 mg/dL 12/19/24 Renal US 06/04/23 Assessment & Plan Assessment & Plan (1) Diabetic nephropathy: Code(s): E11.21 - Type 2 diabetes mellitus with diabetic nephropathy Category: Medical Qualifiers: Diabetes mellitus type: type 2 Qualified Code(s): E11.21 - Type 2 diabetes mellitus with diabetic nephropathy (2) Anemia in chronic kidney disease (CKD): Code(s): N18.9 - Chronic kidney disease, unspecified; D63.1 - Anemia in chronic kidney disease Category: Medical Qualifiers: Chronic kidney disease stage: stage 3 (moderate) Chronic kidney disease stage 3 subtype: stage 3a (GFR 45-59) Qualified Code(s): N18.31 - Chronic kidney disease, stage 3a; D63.1 - Anemia in chronic kidney disease (3) Uncontrolled hypertension: Code(s): I10 - Essential (primary) hypertension Category: Medical (4) CKD stage 3 due to type 2 diabetes mellitus: Code(s): E11.22 - Type 2 diabetes mellitus with diabetic chronic kidney disease; N18.30 - Chronic kidney disease, stage 3 unspecified Category: Medical Plan River has 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 He has obesity. He has underlying diabetic nephropathy. He has H/O decompensated diastolic heart failure. He developed EZRA which is better. His ARB and Jardiance has been put on hold. His urine output is good. He did not have a renal biopsy yet. He does not need renal replacement now. He was counseled to maintain good blood pressure and good blood sugar control. All these have been discussed in detail. Further management is pending evolving data. All questions answered. Follow-up appointment given Orders: Orders Creatinine 4 Weeks D63.1 - Anemia in chronic kidney disease, E11.21 - Type 2 diabetes mellitus with diabetic nephropathy, E11.22 - Type 2 diabetes mellitus with diabetic chronic kidney disease, I10 - Essential (primary) hypertension, N18.30 - Chronic kidney disease, stage 3 unspecified, N18.31 - Chronic kidney disease, stage 3a Blood Urea Nitrogen 4 Weeks D63.1 - Anemia in chronic kidney disease, E11.21 - Type 2 diabetes mellitus with diabetic nephropathy, E11.22 - Type 2 diabetes mellitus with diabetic chronic kidney disease, I10 - Essential (primary) hypertension, N18.30 - Chronic kidney disease, stage 3 unspecified, N18.31 - Chronic kidney disease, stage 3a Complete Blood Count Auto Diff 4 Weeks D63.1 - Anemia in chronic kidney disease, E11.21 - Type 2 diabetes mellitus with diabetic nephropathy, E11.22 - Type 2 diabetes mellitus with diabetic chronic kidney disease, I10 - Essential (primary) hypertension, N18.30 - Chronic kidney disease, stage 3 unspecified, N18.31 - Chronic kidney disease, stage 3a Ferritin 4 Weeks D63.1 - Anemia in chronic kidney disease, E11.21 - Type 2 diabetes mellitus with diabetic nephropathy, E11.22 - Type 2 diabetes mellitus with diabetic chronic kidney disease, I10 - Essential (primary) hypertension, N18.30 - Chronic kidney disease, stage 3 unspecified, N18.31 - Chronic kidney disease, stage 3a Electrolytes 4 Weeks D63.1 - Anemia in chronic kidney disease, E11.21 - Type 2 diabetes mellitus with diabetic nephropathy, E11.22 - Type 2 diabetes mellitus with diabetic chronic kidney disease, I10 - Essential (primary) hypertension, N18.30 - Chronic kidney disease, stage 3 unspecified, N18.31 - Chronic kidney disease, stage 3a Calcium 4 Weeks D63.1 - Anemia in chronic kidney disease, E11.21 - Type 2 diabetes mellitus with diabetic nephropathy, E11.22 - Type 2 diabetes mellitus with diabetic chronic kidney disease, I10 - Essential (primary) hypertension, N18.30 - Chronic kidney disease, stage 3 unspecified, N18.31 - Chronic kidney disease, stage 3a IRON PROFILE 4 Weeks D63.1 - Anemia in chronic kidney disease, E11.21 - Type 2 diabetes mellitus with diabetic nephropathy, E11.22 - Type 2 diabetes mellitus with diabetic chronic kidney disease, I10 - Essential (primary) hypertension, N18.30 - Chronic kidney disease, stage 3 unspecified, N18.31 - Chronic kidney disease, stage 3a Coding Level of Care Code Est Pt Level 4 (42179) Diagnoses Diabetic nephropathy associated with type 2 diabetes mellitus E11.21 Diabetes mellitus type: type 2 Anemia in stage 3a chronic kidney disease N18.31; D63.1 Chronic kidney disease stage: stage 3 (moderate) Chronic kidney disease stage 3 subtype: stage 3a (GFR 45-59) Uncontrolled hypertension I10 CKD stage 3 due to type 2 diabetes mellitus E11.22; N18.30
[2024-12-30 10:07] VITALS: BP 126/50; PULSE 62; O2SAT 97; BMI 36.3
--- OUTSIDE RECORDS SUMMARY | 2024-12-30 10:37 | XMS_ITS | Patient Health Record ---
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 Primary Care Provider Higinio Mcmahon Unavailable [phone] Velia Siddiqui Unavailable Unavailable Allergies No Known Allergies Results Component Value Reference Range Notes Glucose, Whole Blood Reviewed date:01/25/2024 06:13:15 PM Interpretation: Performing Lab:[facility], [address] [place] [id number] Notes/Report: Glucose, Whole Blood 162 60-115 mg/dL METER # : [id number] Pathology (Not yet reviewed by provider) Interpretation: Performing Lab:[facility], [address] [place] [phone] Notes/Report: Reason For Referral No Information Medications [...] Calcium 40 MG Oral for 90 Active [place] 3 Active Basaglar KwikPen 100 UNIT/ML Subcutaneous [...] Status Risk Notes Problem Colon cancer screening (590762574) Colon cancer screening (Z12.11) Active confirmed Problem Pre-procedure evaluation check (467331172) Encounter for other preprocedural examination (Z01.818) Active confirmed Problem Diverticular disease of colon (781411589) Diverticulosis of large intestine without perforation or abscess without bleeding (K57.30) Active confirmed Encounters Encounter Location Date Provider Diagnosis [facility] [place] [facility] [address] [place] [phone] 01/25/2024 Higinio Zhang Colon cancer scree shanthi [...] Start Date Coverage End Date ALEX WAITE [id number] LOLA BONNER [id number] [phone] [id number] JORGE FONSECA Self - patient is the insured Medical (General) History Medical History History ICD Code Sleep apnea - CPAP machine 09/2023 DM Hypertension CKD stage 3 Anemia Hypercholesterolemia Denies [place],CVA,Lung disease Surgical History Surgery Date(Month/Year) [place] teeth Perirectal abscess -Dr. Valverde--in [facility] for about a week 02/2022
== END 2024-12-30 10:26 | disposition home or self-care (01) ==
LOC: HO.HKA 09:50
PROVIDERS: PCP Nurse Practitioner Family; Visit Provider Internal Medicine Nephrology
DX: E11.21 Type 2 diabetes mellitus with diabetic nephropathy (principal); N18.31 Chronic kidney disease, stage 3a; D63.1 Anemia in chronic kidney disease; I10 Essential (primary) hypertension; E11.22 Type 2 diabetes mellitus with diabetic chronic kidney disease; N18.30 Chronic kidney disease, stage 3 unspecified
CPT/HCPCS: 99214

== ENCOUNTER → 2024-12-30 09:49 | Outpatient (BNVA) | payer OTHER, SELFPAY | PROVIDERS: PCP Nurse Practitioner Family; Visit Provider Internal Medicine Nephrology | DX: I12.9 Hypertensive chronic kidney disease with stage 1 through stage 4 chronic kidney disease, or unspecified chronic kidney disease (principal); E11.22 Type 2 diabetes mellitus with diabetic chronic kidney disease; N18.31 Chronic kidney disease, stage 3a; Z87.891 Personal history of nicotine dependence; Z79.4 Long term (current) use of insulin; E11.21 Type 2 diabetes mellitus with diabetic nephropathy; D63.1 Anemia in chronic kidney disease; Z13.89 Encounter for screening for other disorder ==

== ENCOUNTER 2025-01-02 09:00 | Outpatient (AMB) | payer OTHER, SELFPAY ==
--- OUTSIDE RECORDS SUMMARY | 2024-01-25 05:30 | XMS_ITS ---
Author Organization [facility] Address [address] [place] [address] Care Team Providers Care Marketing Services Coordinator Name Role Phone Quique Tatum N.P. Primary Care Provider Higinio Mcmahon Unavailable [phone] Velia Siddiqui Unavailable Unavailable REASON FOR VISIT screening Problems Problem Type SNOMED Code ICD Code Onset Dates Problem Status W/U Status Risk Notes Problem Diverticular disease of colon (223536857) Diverticulosis of large intestine without perforation or abscess without bleeding (K57.30) Active confirmed Encounters Encounter Location Date Provider Diagnosis [facility] [place] Out[place] [address] [place] [phone] 01/25/2024 Higinio Zhang Colon cancer scree shanthi [...] * SOO FONSECA:[birth year] (54 yo M)Acc No.[id number]:01/25/2024 COLON WITH MAC Patient: JORGE DURANT Provider: Nicanor Zhang MD :1970 A ge:53 Y S ex:Male Date:01/25/2024 Address:[address] [place] [address] , [facility] Pcp:Quique Tatum N.P. Subjective: * Chief Complaints: [...] 01/25/2024 Generated for Nikkie kelley/Steven/Nickransmitting on: 0 01/02/2025 10:12 AM EDT
--- NOTE | 2025-01-02 09:04 | A.OFFPC_ITS ---
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 blood-glucose meter (FreeStyle Lite Meter kit) As Directed carvedilol 25 mg See Protocol PO BID cholecalciferol (vitamin D3) 50 mcg PO BEDTIME clonidine HCl 0.2 mg PO TID 90 days comp.stocking,knee,long,medium As directed cyclobenzaprine 10 mg PO TID PRN fenofibrate 54 mg PO DAILY fluticasone propionate 50 mcg/actuation 2 sprays intranasal BID PRN furosemide 40 mg PO BID 90 days hydralazine 50 mg See Protocol PO TID insulin glargine (Basaglar KwikPen U-100 Insulin) 12 units (0.12 mL) subcut DAILY@1700 insulin lispro (Humalog KwikPen (U-100) Insulin) See Protocol sliding scale doses subcut QIDACHS isosorbide mononitrate ER 30 mg See Protocol PO DAILY lancets (FreeStyle Lancets) TEST FOUR TIMES A DAY OR DIRECTED. multivitamin 1 tab PO DAILY omega-3 fatty acids-fish oil 684-1,200 mg 1 cap PO DAILY pen needle, diabetic USE FOUR TIMES A DAY OR DIRECTED. sodium polystyrene sulfonate 30 grams PO MOWEFR zinc acetate 25 mg PO DAILY Tobacco use date assessed: 01/02/25 Dental Screening Dental Screen Date: 01/02/25 Did you have a dental visit in the last 12 months?: No Did you have a dental problem in the last 6 months where you did not have access to dental care?: No Was dental information given to patient?: Patient has dentist HPI HPI Comments History of Present Illness Details 54-year-old male presents for hypertensi on follow-up. He admits to taking his medications as prescribed without adverse reactions. He notes that he completed course of daptomycin last week and will have Port-A-Cath removed today. He notes he has been making healthy lifestyle changes. He offers no complaints and denies acute symptoms at this time. [facility] Medical History (Updated 12/30/24 @ 10:19 by Jovani Hernandez MD) CKD stage 3 due to type [address] scan, chest Acute on chronic anemia Hyponatremia Severe obstructive sleep apnea Anemia Diabetes Osteomyelitis of third toe of left foot CKD (chronic kidney disease) stage 3, GFR 30-59 ml/min Sleep apnea Chronic heart failure with preserved ejection fraction (HFpEF) Elevated cholesterol Iron deficiency anemia Chronic renal insufficiency Diabetic nephropathy Acute heart failure with preserved ejection fraction (HFpEF) Necrotizing subcutaneous infection Hypertension Type 2 diabetes Surgical History History of pyloromyotomy Status post incision and drainage [place] teeth removed Family History Mother Diabetes Maternal Uncle Diabetes Sister Multiple sclerosis Father Liver failure Kidney failure Social History Household Members: Significant Other and Children Both parents involved: No Caregiver staying overnight: No Housing: House Are you a primary acute care certified nursing assistant to a significant other at home: No Do you presently have visiting nurse or other home services: Yes 75 years or older and lives alone: No Alcohol intake: current Alcohol intake frequency: holidays/special occasions only Alcohol type: beer Patient Tobacco Use Status: Former Tobacco user Tobacco use type: Cigarette Years Smoked: 4 e-Cigarette/Vaping Use: Never Used Second Hand Smoke Exposure: No Substance Use Type: Marijuana Advance Directives Date on File: 05/07/23 service: No Current occupational status: employed Current occupation: [employer] Current occupational exposures/hazards: No Cognitive needs: No Hearing needs: No Vision needs: No Questionnaire Thrive Questionnaire Date Thrive assessed: 06/13/24 I am a: Patient What is your living situation today?: I have a steady place to live Within the past 12 months, did the food you bought not last and you didn't have the money to get more?: Sometimes True Within the past 12 months, did you worry whether your food would run out before you got money to buy more?: Sometimes True Do you have trouble paying for medicines?: Yes Do you have trouble getting transportation to medical appointments?: No Do you have trouble paying your heating and electricity bill?: Yes Do you have trouble taking care of your child, family member or friend?: No Do you have trouble with day-to-day activities such as bathing, preparing meals, shopping, managing finances, etc.?: No Are you currently unemployed and looking for a job?: No Are you interested in more education?: I choose not to answer this question Currently or been in a relationship where the following occur: No concerns reported THRIVE Score: 3 UTE-7 AMB Questionnaire UTE-7 Date UTE - 7 assessed: 09/13/24 Source: Developed by Drs. Higinio Rodriguez, Olivia Rayo, Edilberto Freeman and colleagues, with an educational smitha from [employer]. Review of Systems Const Details: Const Denies chills, Denies fatigue, Denies fever(s), Denies headache(s) and Denies weakness ENT Denies dizziness and Denies headache(s) Card Denies chest pain, Denies lightheadedness, Denies dyspnea and Denies other (Palpitations) Resp Denies cough, Denies dyspnea, Denies wheezing and Denies other ( shortness of breath) GI Denies abdominal pain, Denies melena, Denies hematochezia, Denies change in bowel habits, Denies dyspepsia and Denies nausea Denies hematuria and Denies dysuria Musc Denies abnormal gait, Denies myalgias, Denies arthralgias, Denies numbness and Denies tingling Skin/Breast Denies rash, Denies unusual bruising and Denies wounds Neuro Denies abnormal gait, Denies dizziness, Denies headache(s), Denies memory loss, Denies numbness, Denies Sensory deficit (Neuro), Denies tingling and Denies weakness Psych Denies anxiety, Denies depression, Denies memory loss Endo Denies cold intolerance, Denies fatigue, Denies heat intolerance, Denies polydipsia and Denies polyuria Aller/Immun Denies wheezing Physical exam (Primary Care) Vital Signs: Last Vital Signs Temp 97.7 F 01/02/25 09:09 Pulse 67 01/02/25 09:09 Resp 16 01/02/25 09:09 BP 160/74 H 01/02/25 09:09 Pulse Ox 100 01/02/25 09:09 Oxygen Delivery Method Room Air 01/02/25 09:09 BMI result Body Mass Index 36.6 Tobacco/Smoking Status: Tobacco use Status Tobacco use date assessed 01/02/25 01/02/25 09:12 Patient Tobacco Use Status Former Tobacco user 01/02/25 09:06 Tobacco use type Cigarette 01/02/25 09:06 e-Cigarette/Vaping Use Never Used 01/02/25 09:06 Thrive Assessment: Date of Thrive Assessment Date Thrive assessed 06/13/24 01/02/25 09:06 Currently or been in a relationship where the following occur: No concerns reported Const Other: General: no acute distress and well developed Nutritional Appearance: well nourished Orientation/consciousness: patient oriented x3 HENMT Head: Yes normocephalic and Yes atraumatic Eyes General: appearance normal, both eyes and all related structures Pupils: Equal, round and reactive pupils present EOM: EOMs intact bilaterally Resp Effort & Inspection: normal respiratory effort Auscultation: clear to auscultation bilaterally Cardio Rate: regular rate Rhythm: regular rhythm Heart sounds: S1 normal heart sound present, S2 normal heart sound present, no gallops, no murmurs and no rubs GI Palpation (GI): No Abdominal aortic bruit present, Soft to palpation, nontender, No hepatosplenomegaly present and No Rebound tenderness present Auscultation: normal bowel sounds General: Yes no CVA tenderness Back/Spine/Pelvis Back: no CVA tenderness Cervical Spine: cervical ROM normal and No Cervical spine tenderness Thoracic/Lumbar Spine: thoraco-lumbar ROM normal, No pain with thoraco-lumbar ROM, No thoracic spinal tenderness and No lumbar spinal tenderness Extrem General: Yes normal to inspection, No edema and No calf tenderness Skin General: warm and dry. Normal skin color. Normal skin turgor Neuro General: patient oriented x3, gait normal and no focal neuro deficit Cranial nerves: Yes Equal, round and reactive pupils present Cognition (Neuro): normal cognition Gait exam (Neuro): Normal gait present Sensory Exam: No Sensory deficit (Neuro) Psych Appearance: grossly normal Affect: normal affect Attitude: cooperative Thought process: Normal thought process present Coding Level of Care Code Est Pt Level 3 (86426) Diagnoses Uncontrolled hypertension I10 Assessment & Plan Assessment & Plan (1) Uncontrolled hypertension: Code(s): I10 - Essential (primary) hypertension Category: Medical Plan: Resting blood pressure is 140/60, above goal of less than 130/80. Continue current treatment regimen. Low-sodium diet encouraged. Advised to check his blood pressure 2-3 times weekly in the morning and evening, record readings, and bring to next appointment. Follow-up in 1 month for hypertension and diabetes. Return sooner with symptoms or concerns. Verbalized understanding and agreed with the plan. Medications: Changed From atorvastatin (Lipitor) 40 mg PO BEDTIME To atorvastatin (Lipitor) 40 mg PO BEDTIME 90 tabs 2RF 90 days Patient Instructions: Advised to resume taking atorvastatin as prescribed, tonight. Verbalized understanding and agreed with the plan.
[2025-01-02 09:09] VITALS: BP 160/74; PULSE 67; RESP 16; TEMP 36.5; O2SAT 100; BMI 36.6
[2025-01-02 09:56] VITALS: BP 140/60
--- OUTSIDE RECORDS SUMMARY | 2025-01-02 10:12 | XMS_ITS | Patient Health Record ---
Author Organization [facility] Address [address] [place] [address] Care Team Providers Care Woods Laborer Name Role Phone Quique Tatum N.P. Primary Care Provider Higinio Mcmahon Unavailable [phone] Velia Siddiqui Unavailable Unavailable Allergies No Known Allergies Results Component Value Reference Range Notes Glucose, Whole Blood Reviewed date:01/25/2024 06:13:15 PM Interpretation: Performing Lab:[facility], [address] [place] [id number] Notes/Report: Glucose, Whole Blood 162 60-115 mg/dL METER # : [id number] Pathology (Not yet reviewed by provider) Interpretation: Performing Lab:[facility], [address] [place] [phone] Notes/Report: Reason For Referral No Information Medications [...] Calcium 40 MG Oral for 90 Active [place] 3 Active Basaglar KwikPen 100 UNIT/ML Subcutaneous [...] Status Risk Notes Problem Colon cancer screening (015569735) Colon cancer screening (Z12.11) Active confirmed Problem Pre-procedure evaluation check (439629102) Encounter for other preprocedural examination (Z01.818) Active confirmed Problem Diverticular disease of colon (562301466) Diverticulosis of large intestine without perforation or abscess without bleeding (K57.30) Active confirmed Encounters Encounter Location Date Provider Diagnosis [facility] [place] [facility] [address] [place] [id number] 01/25/2024 Higinio Zhang Colon cancer scree shanthi [...] Start Date Coverage End Date ALEX WAITE [id number] LOLA BONNER [id number] JORGE FONSECA Self - patient is the insured Medical (General) History Medical History History ICD Code Sleep apnea - CPAP machine 09/2023 DM Hypertension CKD stage 3 Anemia Hypercholesterolemia Denies [place],CVA,Lung disease Surgical History Surgery Date(Month/Year) [place] teeth [facility]irectal abscess [facility] Val[facility]de[facility]
== END 2025-01-02 09:56 | disposition home or self-care (01) ==
LOC: HO.HMCFM 09:01
PROVIDERS: PCP Nurse Practitioner Family; Visit Provider Nurse Practitioner Family
DX: I10 Essential (primary) hypertension (principal)

== ENCOUNTER 2025-01-02 12:43 | Outpatient (REF) | payer OTHER, SELFPAY ==
--- NOTE | ~2025-01-02 | IR_ITS ---
Examination: Removal of right lower injectable [place] catheter. CLINICAL INDICATION: Weston not needed anymore. PROCEDURE/FINDINGS: The area around the skin incision was cleaned in a sterile manner. The sutures were dissected and removed. 1% lidocaine was injected along the incision site and blunt dissection around the catheter was performed and the catheter was gently removed without any immediate bleeding or complications. Postprocedure sterile dressing applied. Patient tolerated procedure extremely well. 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 Electronically signed by: Samir Bright MD 01/03/2025 07:11 AM EDT
== END 2025-01-02 12:44 | disposition home or self-care (01) ==
LOC: HO.RADIR 12:43
PROVIDERS: Visit Provider Internal Medicine
DX: I10 Essential (primary) hypertension (principal); M86.9 Osteomyelitis, unspecified
CPT/HCPCS: 36589; J2003

== ENCOUNTER → 2025-01-02 12:44 | Outpatient (BNV) | payer OTHER, SELFPAY | PROVIDERS: Visit Provider Radiology Diagnostic Radiology | DX: Z45.2 Encounter for adjustment and management of vascular access device (principal); M86.9 Osteomyelitis, unspecified | CPT/HCPCS: 36589 ==

== ENCOUNTER 2025-01-02 13:26 | Outpatient (REF) | payer OTHER, SELFPAY ==
[2025-01-02 15:11] LABS: Iron 81 mcg/dL (45-160); Percent Iron Saturation 29 % (15-50); Total Iron Binding Capacity 278 mcg/dL (228-428); Unsaturated Iron Binding 197 ug/dL
== END 2025-01-02 13:27 | disposition home or self-care (01) ==
LOC: HO.LAB 13:26
PROVIDERS: PCP Nurse Practitioner Family; Referring Provider Internal Medicine Medical Oncology; Visit Provider Nurse Practitioner Family
DX: N18.9 Chronic kidney disease, unspecified (principal); D63.1 Anemia in chronic kidney disease; M86.9 Osteomyelitis, unspecified
CPT/HCPCS: 36415; 83540

== ENCOUNTER 2025-01-05 08:38 | Outpatient (AMB) | payer OTHER, SELFPAY ==
--- OUTSIDE RECORDS SUMMARY | 2024-01-25 05:30 | XMS_ITS ---
Author Organization [facility] Address [address] [place] [address] Care Team Providers Care Geothermal Production Manager Name Role Phone Quique Tatum N.P. Primary Care Provider Higinio Mcmahon Unavailable [phone] Velia Siddiqui Unavailable Unavailable REASON FOR VISIT screening Problems Problem Type SNOMED Code ICD Code Onset Dates Problem Status W/U Status Risk Notes Problem Diverticular disease of colon (225093571) Diverticulosis of large intestine without perforation or abscess without bleeding (K57.30) Active confirmed Encounters Encounter Location Date Provider Diagnosis [facility] [address] [place] [phone] 01/25/2024 Higinio Zhang Colon cancer scree shanthi [...] * SOO FONSECA:[birth year] 75 (54 yo M)Acc No.[id number]:01/25/2024 COLON WITH MAC Patient: JORGE DURANT Provider: Nicanor Zhang MD :1970 A ge:53 Y S ex:Male Date:01/25/2024 Address:[address] [place] [address] , [facility] Pcp:Quique Tatum N.P. Subjective: * Chief Complaints: [...] 0 01/25/2024 Generated for Nikkie kelley/Steven/Franciscosmitting on: 01/05/2025 09:41 AM EDT
--- NOTE | 2025-01-05 08:59 | A.OFFVIS_ITS ---
Vital Signs 01/05/25 09:00 Height 5 ft 8 in Weight 240 lb BMI 36.5 Int[place] [facility] [place] US [place]/17/24 Intake Note[place] [facility] [place]/17/24, Pt states wound on Left 3rd toe and has finished IV ABX on 12/28/24, IV port pulled out 01/02/25. Just started going to wound care 1x per week. Accompanied by: Self / Same As Patient Allergies No Known Allergies Allergy (Verified 01/05/25 09:04) HPI H[place] [facility] [place] Art US 11/17/24: Details: The patient is a 54-year-old male presenting with a follow-up evaluation for arterial studies and wound care management. The patient has a history of Charcot foot, which necessitates careful management and appropriate footwear to prevent complications. The patient also has a wound on the left third toe, which was recently evaluated by the [facility]. The wound is clean and healing well, with good blood flow and palpable pulses noted during the examination. The patient completed a course of IV antibiotics and had a port removed recently, indicating resolution of a previous infection. The patient is eager to return to work . [facility] Medical History CKD stage 3 due to type [address] scan, chest Acute on chronic anemia Hyponatremia Severe obstructive sleep apnea Anemia Diabetes Osteomyelitis of third toe of left foot CKD (chronic kidney disease) stage 3, GFR 30-59 ml/min Sleep apnea Chronic heart failure with preserved ejection fraction (HFpEF) Elevated cholesterol Iron deficiency anemia Chronic renal insufficiency Diabetic nephropathy Acute heart failure with preserved ejection fraction (HFpEF) Necrotizing subcutaneous infection Hypertension Type 2 diabetes Surgical History History of pyloromyotomy Status post incision and drainage [place] teeth removed Family History Mother Diabetes Maternal Uncle Diabetes Sister Multiple sclerosis Father Liver failure Kidney failure Social History Household Members: Significant Other and Children Both parents involved: No Caregiver staying overnight: No Housing: House Are you a primary life care planner to a significant other at home: No Do you presently have visiting nurse or other home services: Yes 75 years or older and lives alone: No Alcohol intake: current Alcohol intake frequency: holidays/special occasions only Alcohol type: beer Patient Tobacco Use Status: Former Tobacco user Tobacco use type: Cigarette Years Smoked: 4 e-Cigarette/Vaping Use: Never Used Second Hand Smoke Exposure: No Substance Use Type: Marijuana Advance Directives Date on File: 05/07/23 service: No Current occupational status: employed Current occupation: [employer] Current occupational exposures/hazards: No Cognitive needs: No Hearing needs: No Vision needs: No Review of Systems Const All systems reviewed & are unremarkable except as noted in HPI and below Reports no additional complaints ENT Reports Normal hearing present Card Denies chest pain, Denies chest pain at rest, Denies chest pain with activity and Denies pedal edema Resp Denies cough GI Denies abdominal pain Musc Denies abnormal gait, Denies muscle cramps and Denies radiating pain into limb Skin/Breast Denies skin ulcer and Denies wounds Neuro Reports Normal hearing present and Denies abnormal gait Psych Reports no additional complaints Physical Exam Vital Signs: BMI result Body Mass Index 36.5 Const General: cooperative, healthy appearing and comfortable Orientation/consciousness: oriented to person, oriented to place and oriented to time HEENT Head: Yes normal to inspection Neck Neck: Yes normal visual inspection Carotids: no bruits Chest Chest palpation & inspection: normal inspection of the chest Resp Effort & Inspection: normal respiratory effort and able to speak in complete sentences Auscultation: clear to auscultation bilaterally, no crackles, no rales, no rhonchi and no wheezes Cardio Other: Bilateral palpable dorsalis pedis pulses Rate: regular rate Rhythm: regular rhythm Heart sounds: S1 normal heart sound present and S2 normal heart sound present Bruits: no carotid bruits Peripheral pulses: Peripheral pulses 2+ throughout GI Inspection: Yes normal to inspection Skin Other: Left 3rd toe dorsum clean wound proximally 1 cm in diameter. Wounds: no wounds Hair: normal Neuro General: oriented to person, oriented to place and oriented to time Cranial nerves: Yes CN's II-XII intact bilaterally and Yes Normal hearing present Cognition (Neuro): normal cognition Motor exam (neuro): 5/5 motor strength present throughout Extrem Other: venous exam: No significant superficial varicosities or spider telangiectasias, minimal edema General: No clubbing, No cyanosis and No edema Psych Appearance: grossly normal Mental Status: mental status grossly normal Speech and movement: Normal speech and movement present Results Reviewed Results Reviewed: Noninvasive arterial testing dated 11/17/2024 demonstrates PANCHO on the right of 1.09 and on the left of 1.1. Written report and images were reviewed. Assessment & Plan Assessment & Plan (1) PAD (peripheral artery disease): Code(s): I73.9 - Peripheral vascular disease, unspecified Category: Medical Plan: In short patient has nonhealing left foot wound which appears to be doing sig nificantly better. [facility] I did review the pathophysiology of peripheral vascular disease with the patient. In addition we did discuss routine conservative measures including a healthy diet and the importance of exercise and ambulation. We did discuss risk factor modification. The patient will continue to to follow-up with surveillance follow-up in approximately 6 months. Thank you for allowing us to participate in this patient's care. If there are any questions or concerns please do not hesitate to contact us. Orders: Orders US arterial duplex LE BI 6 Months I73.9 - Peripheral vascular disease, unspecified Coding Level of Care Code Est Pt Level 4 (95586) Complex EM visit Add On G2211 Diagnoses PAD (peripheral artery disease) I73.9
[2025-01-05 09:00] VITALS: BMI 36.5
--- OUTSIDE RECORDS SUMMARY | 2025-01-05 09:42 | XMS_ITS | Patient Health Record ---
Author Organization [facility] Address [address] [place] [address] Care Team Providers Care Licensed Nurse Practitioner Name Role Phone Quique Tatum N.P. Primary Care Provider Higinio Mcmahon Unavailable [phone] Velia Siddiqui Unavailable Unavailable Allergies No Known Allergies Results Component Value Reference Range Notes Glucose, Whole Blood Reviewed date:01/25/2024 06:13:15 PM Interpretation: Performing Lab:[facility], [address] [place] [id number] Notes/Report: Glucose, Whole Blood 162 60-115 mg/dL METER # : [id number] Pathology (Not yet reviewed by provider) Interpretation: Performing Lab:[facility], [address] [place] [id number] Notes/Report: Reason For Referral No Information Medications [...] Calcium 40 MG Oral for 90 Active [place] 3 Active Basaglar KwikPen 100 UNIT/ML Subcutaneous [...] Status Risk Notes Problem Colon cancer screening (017743509) Colon cancer screening (Z12.11) Active confirmed Problem Pre-procedure evaluation check (567132788) Encounter for other preprocedural examination (Z01.818) Active confirmed Problem Diverticular disease of colon (282940156) Diverticulosis of large intestine without perforation or abscess without bleeding (K57.30) Active confirmed Encounters Encounter Location Date Provider Diagnosis [facility] [place] [address] [place] [id number] 01/25/2024 Higinio Zhang Colon cancer scree shanthi [...] Start Date Coverage End Date ALEX WAITE [id number] [place]NER [id number] JORGE FONSECA Self - patient is the insured Medical (General) History Medical History History ICD Code Sleep apnea - CPAP machine 09/2023 DM Hypertension CKD stage 3 Anemia Hypercholesterolemia Denies [place],CVA,Lung disease Surgical History Surgery Date(Month/Year) [place] teeth Perirectal abscess -Dr. Valverde--in [facility] for about a week 02/2022
== END 2025-01-05 09:28 | disposition home or self-care (01) ==
LOC: HO.HVS 08:39
PROVIDERS: PCP Nurse Practitioner Family; Visit Provider Surgery Vascular Surgery
DX: I73.9 Peripheral vascular disease, unspecified (principal)
CPT/HCPCS: 99214

== ENCOUNTER 2025-01-26 08:16 | Outpatient (REF) | payer OTHER, SELFPAY ==
[2025-01-26 08:29] LABS: MANUAL DIFF FLAG NO
[2025-01-26 09:08] LABS: Hematocrit 22.2 % (42.0-52.0); Hemoglobin 7.5 g/dl (14.0-18.0); Imm Gran Abs Auto 0.04 X10*3/uL (0.00-0.03); Imm Gran Pct Auto 0.5 % (0.0-0.4); Lymphocytes Absolute Auto 1.4 X10*3/uL (1.2-4.9); Mean Corpuscular HGB Conc 33.8 g/dl (31.0-36.0); Mean Corpuscular Hemoglobin 29.8 pg (27.0-33.0); Mean Corpuscular Volume 88.1 fL (80.0-98.0); NRBC Abs Auto 0.000 X10*3/uL (0.0-0.012); NRBC Pct Auto 0.0 /100WBC (0.0-0.2); Platelet Count 153 X10*3/uL (160-400); Red Blood Count 2.52 X10*6/uL (4.60-5.80); White Blood Count 8.4 X10*3/uL (4.8-10.8)
[2025-01-26 09:43] LABS: Anion Gap 11 (12-20); Blood Urea Nitrogen 58 mg/dL (9-16); Calcium 8.9 mg/dL (8.4-10.2); Carbon Dioxide 23 mmol/L (22-29); Chloride 108 mmol/L (96-108); Estimated Glomerular Filt Rate 21; Iron 56 mcg/dL (45-160); Percent Iron Saturation 22 % (15-50); Potassium 4.9 mmol/L (3.3-5.1); Sodium 137 mmol/L (135-145); Total Iron Binding Capacity 258 mcg/dL (228-428); Unsaturated Iron Binding 202 ug/dL
[2025-01-26 09:52] LABS: Ferritin 439 ng/mL (20-250)
== END 2025-01-26 08:17 | disposition home or self-care (01) ==
LOC: HO.LAB 08:16
PROVIDERS: PCP Nurse Practitioner Family; Visit Provider Internal Medicine Nephrology
DX: I12.9 Hypertensive chronic kidney disease with stage 1 through stage 4 chronic kidney disease, or unspecified chronic kidney disease (principal); E11.22 Type 2 diabetes mellitus with diabetic chronic kidney disease; E11.21 Type 2 diabetes mellitus with diabetic nephropathy; N18.31 Chronic kidney disease, stage 3a; D63.1 Anemia in chronic kidney disease
CPT/HCPCS: 36415; 80051; 82310; 82565; 82728; 83540; 84520; 85025

== ENCOUNTER 2025-01-27 11:22 | Outpatient (AMB) | payer OTHER, SELFPAY ==
--- OUTSIDE RECORDS SUMMARY | 2024-01-25 05:30 | XMS_ITS ---
Author Organization [facility] Address [address] [place] [address] Care Team Providers Care Merchandising Director Name Role Phone Quique Tatum N.P. Primary Care Provider Higinio Mcmahon Unavailable [phone] Velia Siddiqui Unavailable Unavailable REASON FOR VISIT screening Problems Problem Type SNOMED Code ICD Code Onset Dates Problem Status W/U Status Risk Notes Problem Diverticular disease of colon (787359895) Diverticulosis of large intestine without perforation or abscess without bleeding (K57.30) Active confirmed Encounters Encounter Location Date Provider Diagnosis [facility] Outpatient [address] [place] [phone] 01/25/2024 Higinio Zhang Colon cancer scree shanthi [...] * SOO FONSECA:[birth year] (54 yo M)Acc No.[id number]:01/25/2024 COLON WITH MAC Patient: JORGE DURANT Provider: Nicanor Zhang MD :1970 A ge:53 Y S ex:Male Date:01/25/2024 Address:[address] [place] [address] , [facility] Pcp:Quique Tatum N.P. Subjective: * Chief Complaints: [...] Zhang MD Date: 0 01/25/2024 Generated for Nkikie kelley/Steven/eTransmitting on: 1 12:32 PM EDT
--- NOTE | 2025-01-27 11:43 | HO.NEPHOV_ITS ---
Vital Signs 01/27/25 11:44 Height 5 ft 8 in Weight 236 lb 6 oz BMI 35.9 BP 130/60 Blood Pressure Location Rt brachial Position Sitting Pulse 62 Pulse Source Pulse Oximeter Pulse Oximetry (%) 98 Oxygen Delivery Method Room Air Intake Visit Reasons: 4wk f/u w/labs-[employer]illing [employer] Operator Required: No Accompanied by: Self / Same As Patient Allergies No Known Allergies Allergy (Verified 01/27/25 11:44) HPI Comments Details: River was seen in follow up of his EZRA on CKD . He is diabetic and hypertensive with proteinuria. He recently had EZRA likely secondary to cytokine release from infection and altered regulation in the kidney . His ARB and Jardiance has been put on hold. He denies any active chest pain, shortness of breath, paroxysmal nocturnal dyspnea, orthopnea, joint swellings, epistaxis, sinusitis, skin rashes, history of renal artery stenosis, history of carotid stenosis, large, vomiting, diarrhea, hematuria. His serum creatinine has plateaued . His edema is better with stable renal function [facility] Medical History CKD stage 3 due to type [address] scan, chest Acute on chronic anemia Hyponatremia Severe obstructive sleep apnea Anemia Diabetes Osteomyelitis of third toe of left foot CKD (chronic kidney disease) stage 3, GFR 30-59 ml/min Sleep apnea Chronic heart failure with preserved ejection fraction (HFpEF) Elevated cholesterol Iron deficiency anemia Chronic renal insufficiency Diabetic nephropathy Acute heart failure with preserved ejection fraction (HFpEF) Necrotizing subcutaneous infection Hypertension Type 2 diabetes Surgical History History of pyloromyotomy Status post incision and drainage [place] teeth removed Family History Mother Diabetes Maternal Uncle Diabetes Sister Multiple sclerosis Father Liver failure Kidney failure Social History Household Members: Significant Other and Children Both parents involved: No Caregiver staying overnight: No Housing: House Are you a primary caregiver services home to a significant other at home: No Do you presently have visiting nurse or other home services: Yes 75 years or older and lives alone: No Alcohol intake: current Alcohol intake frequency: holidays/special occasions only Alcohol type: beer Patient Tobacco Use Status: Former Tobacco user Tobacco use type: Cigarette Years Smoked: 4 e-Cigarette/Vaping Use: Never Used Second Hand Smoke Exposure: No Substance Use Type: Marijuana Advance Directives Date on File: 05/07/23 service: No Current occupational status: employed Current occupation: [employer] Current occupational exposures/hazards: No Cognitive needs: No Hearing needs: No Vision needs: No Review of Systems Const All systems reviewed & are unremarkable except as noted in HPI and below Physical Exam Vital Signs: Last Vital Signs Pulse 62 01/27/25 11:44 BP 130/60 01/27/25 11:44 Pulse Ox 98 01/27/25 11:44 Oxygen Delivery Method Room Air 01/27/25 11:44 BMI result Body Mass Index 35.9 Const General: comfortable and no acute distress Orientation/consciousness: patient oriented x3 HEENT Head: Yes normocephalic Mouth: Normal oral and palatal mucosa present Eyes EOM: EOMs intact bilaterally Neck Neck: Yes supple Resp Auscultation: clear to auscultation bilaterally Cardio Jugular venous distension: no JVD Rate: regular rate GI Palpation (GI): Soft to palpation Auscultation: normal bowel sounds General: Yes no CVA tenderness Back/Spine/Pelvis Back: no CVA tenderness Skin General skin exam: no rashes or lesions noted Neuro General: patient oriented x3 and moves all extremities Extrem General: Yes no pedal edema Results Reviewed Nephrology Results: Hgb, (14.0-18.0) 7.5 g/dl L 01/26/25 WBC, (4.8-10.8) 8.4 X10*3/uL 01/26/25 Plt Count, (160-400) 153 X10*3/uL L Δ 01/26/25 Sodium, (135-145) 137 mmol/L 01/26/25 Potassium, (3.3-5.1) 4.9 mmol/L 01/26/25 Chloride, (96-108) 108 mmol/L 01/26/25 Carbon Dioxide, (22-29) 23 mmol/L 01/26/25 BUN, (9-16) 58 mg/dL H 01/26/25 Creatinine, (0.5-1.4) 3.14 mg/dL H 01/26/25 Calcium, (8.4-10.2) 8.9 mg/dL 01/26/25 Renal US 06/04/23 Assessment & Plan Assessment & Plan (1) Diabetic nephropathy: Code(s): E11.21 - Type 2 diabetes mellitus with diabetic nephropathy Category: Medical Qualifiers: Diabetes mellitus type: type 2 Qualified Code(s): E11.21 - Type 2 diabetes mellitus with diabetic nephropathy (2) CKD stage 3 due to type 2 diabetes mellitus: Code(s): E11.22 - Type 2 diabetes mellitus with diabetic chronic kidney disease; N18.30 - Chronic kidney disease, stage 3 unspecified Category: Medical (3) Anemia in chronic kidney disease (CKD): Code(s): N18.9 - Chronic kidney disease, unspecified; D63.1 - Anemia in chronic kidney disease Category: Medical Qualifiers: Chronic kidney disease stage: stage 3 (moderate) Chronic kidney disease stage 3 subtype: stage 3a (GFR 45-59) Qualified Code(s): N18.31 - Chronic kidney disease, stage 3a; D63.1 - Anemia in chronic kidney disease (4) Uncontrolled hypertension: Code(s): I10 - Essential (primary) hypertension Category: Medical Plan River has 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 He has obesity. He has underlying diabetic nephropathy. He has H/O decompensated diastolic heart failure. He developed EZRA which is better/stable . His ARB and Jardiance has been put on hold. His urine output is good. He did not have a renal biopsy yet. He does not need renal replacement now. He was counseled to maintain good blood pressure and good blood sugar control. I am planning to give him Procrit in 2 weeks. All these have been discussed in detail. Further management is pending evolving data. All questions answered. Follow-up appointment given Coding Level of Care Code Est Pt Level 4 (72597) Diagnoses Diabetic nephropathy associated with type 2 diabetes mellitus E11.21 Diabetes mellitus type: type 2 CKD stage 3 due to type 2 diabetes mellitus E11.22; N18.30 Anemia in stage 3a chronic kidney disease N18.31; D63.1 Chronic kidney disease stage: stage 3 (moderate) Chronic kidney disease stage 3 subtype: stage 3a (GFR 45-59) Uncontrolled hypertension I10
[2025-01-27 11:44] VITALS: BP 130/60; PULSE 62; O2SAT 98; BMI 35.9
--- OUTSIDE RECORDS SUMMARY | 2025-01-27 12:33 | XMS_ITS | Patient Health Record ---
Author Organization [facility] Address [address] [place] [id number] Care Team Providers Care Ebay Reseller Name Role Phone Quique Tatum N.P. Primary Care Provider Higinio Mcmahon Unavailable [phone] Velia Siddiqui Unavailable Unavailable Allergies No Known Allergies Reason For Referral No Information Medications Medication SIG (Take, Route, Frequency, Duration) Notes Start Date End Date Status Fluticasone Propionate 93 MCG/ACT 2 sprays (1 spray in each nostril) Nasally Twice a day for 30 day(s) Active Multivitamin Active Vitamin D3 50 MCG (1999 [place]) Oral for 90 Active metFORMIN HCl 1000 MG Oral for 90 Active Atorvastatin Calcium 40 MG Oral for 90 Active [place] 3 Active Basaglar KwikPen 100 UNIT/ML Subcutaneous [...] Status Risk Notes Problem Colon cancer screening (530009423) Colon cancer screening (Z12.11) Active confirmed Problem Pre-procedure evaluation check (856184748) Encounter for other preprocedural examination (Z01.818) Active confirmed Problem Diverticular disease of colon (362358594) Diverticulosis of large intestine without perforation or abscess without bleeding (K57.30) Active confirmed Plan Of Treatment Pending Test Test Name Order Date Pathology 01/25/2024 Future Test Test Name Order Date COLONOSCOPY 10/01/2023 Insurance Providers Payer Name Payer Address Payer Phone Subscriber Number Group Number Insured Name Patient Relationship to Insured Coverage Start Date Coverage End Date [employer] [address] [place] [address] [id number] JORGE FONSECA Self - patient is the insured Medical (General) History Medical History History ICD Code Sleep apnea - CPAP machine 09/2023 DM Hypertension CKD stage 3 Anemia Hypercholesterolemia Denies [place],CVA,Lung disease Surgical History Surgery Date(Month/Year) [place] teeth Perirectal abscess -Dr. Valverde--in [facility] for about a week 02/2022
== END 2025-01-27 11:59 | disposition home or self-care (01) ==
LOC: HO.HKA 11:24
PROVIDERS: PCP Nurse Practitioner Family; Visit Provider Internal Medicine Nephrology
DX: E11.21 Type 2 diabetes mellitus with diabetic nephropathy (principal); E11.22 Type 2 diabetes mellitus with diabetic chronic kidney disease; N18.30 Chronic kidney disease, stage 3 unspecified; N18.31 Chronic kidney disease, stage 3a; D63.1 Anemia in chronic kidney disease; I10 Essential (primary) hypertension
CPT/HCPCS: 99214

== ENCOUNTER 2025-02-03 09:03 | Outpatient (AMB) | payer OTHER, SELFPAY ==
--- OUTSIDE RECORDS SUMMARY | 2024-01-25 05:30 | XMS_ITS ---
Author Organization [facility] Address [address] [place] [address] Care Team Providers Care Internet Marketing Analyst Name Role Phone Quique Tatum N.P. Primary Care Provider Higinio Mcmahon Unavailable [phone] Velia Siddiqui Unavailable Unavailable REASON FOR VISIT screening Problems Problem Type SNOMED Code ICD Code Onset Dates Problem Status W/U Status Risk Notes Problem Diverticular disease of colon (197634426) Diverticulosis of large intestine without perforation or abscess without bleeding (K57.30) Active confirmed Encounters Encounter Location Date Provider Diagnosis [facility] [place] [address] [place] [phone] 01/25/2024 Higinio Zhang Colon cancer scree shanthi [...] * SOO FONSECA:[birth year] (54 yo M)Acc No.[id number]:01/25/2024 COLON WITH MAC Patient: JORGE DURANT Provider: Nicanor Zhang MD :1970 A ge:53 Y S ex:Male Date:01/25/2024 Address:[address] [place] [address] , [facility] Pcp:Quique Tatum N.P. Subjective: * Chief Complaints: [...] 0 01/25/2024 Generated for Nikkie kelley/Steven/eTransmitting on: 1 09:31 AM EDT
--- NOTE | 2025-02-03 09:05 | MHC.PC.OV ---
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 blood-glucose meter (FreeStyle Lite Meter kit) As Directed carvedilol 25 mg See Protocol PO BID cholecalciferol (vitamin D3) 50 mcg PO BEDTIME clonidine HCl 0.2 mg PO TID 90 days comp.stocking,knee,long,medium As directed cyclobenzaprine 10 mg PO TID PRN fenofibrate 54 mg PO DAILY fluticasone propionate 50 mcg/actuation 2 sprays intranasal BID PRN furosemide 40 mg PO BID 90 days hydralazine 50 mg See Protocol PO TID insulin glargine (Basaglar KwikPen U-100 Insulin) 12 units (0.12 mL) subcut DAILY@1700 insulin lispro (Humalog KwikPen (U-100) Insulin) See Protocol sliding scale doses subcut QIDACHS isosorbide mononitrate ER 30 mg See Protocol PO DAILY lancets (FreeStyle Lancets) TEST FOUR TIMES A DAY OR DIRECTED. multivitamin 1 tab PO DAILY omega-3 fatty acids-fish oil 684-1,200 mg 1 cap PO DAILY pen needle, diabetic USE FOUR TIMES A DAY OR DIRECTED. sodium polystyrene sulfonate 30 grams PO QWEEK zinc acetate 25 mg PO DAILY Tobacco use date assessed: 02/03/25 Dental Screening Dental Screen Date: 02/03/25 Did you have a dental visit in the last 12 months?: No Did you have a dental problem in the last 6 months where you did not have access to dental care?: No Was dental information given to patient?: Patient has dentist HPI HPI Comments History of Present Illness Details 54-year-old male presents for hypertension and diabetes follow-up. He admits to taking his medications as prescribed without adverse reactions. He notes he has been making healthy lifestyle changes. He offers no complaints and denies acute symptoms at this time. [facility] Medical History (Updated 02/03/25 @ 09:54 by Quique Tatum CNP) Hypertension Type 2 diabetes CKD stage 3 due to type [address] scan, chest Acute on chronic anemia Hyponatremia Severe obstructive sleep apnea Anemia Diabetes Osteomyelitis of third toe of left foot CKD (chronic kidney disease) stage 3, GFR 30-59 ml/min Sleep apnea Chronic heart failure with preserved ejection fraction (HFpEF) Elevated cholesterol Iron deficiency anemia Chronic renal insufficiency Diabetic nephropathy Acute heart failure with preserved ejection fraction (HFpEF) Necrotizing subcutaneous infection Surgical History History of pyloromyotomy Status post incision and drainage [place] teeth removed Family History Mother Diabetes Maternal Uncle Diabetes Sister Multiple sclerosis Father Liver failure Kidney failure Social History Household Members: Significant Other and Children Both parents involved: No Caregiver staying overnight: No Housing: House Are you a primary patient care specialist to a significant other at home: No Do you presently have visiting nurse or other home services: Yes 75 years or older and lives alone: No Alcohol intake: current Alcohol intake frequency: holidays/special occasions only Alcohol type: beer Patient Tobacco Use Status: Former Tobacco user Tobacco use type: Cigarette Years Smoked: 4 e-Cigarette/Vaping Use: Never Used Second Hand Smoke Exposure: No Substance Use Type: Marijuana Advance Directives Date on File: 05/07/23 service: No Current occupational status: employed Current occupation: [employer] Current occupational exposures/hazards: No Cognitive needs: No Hearing needs: No Vision needs: No Questionnaire Thrive Questionnaire Date Thrive assessed: 06/13/24 I am a: Patient What is your living situation today?: I have a steady place to live Within the past 12 months, did the food you bought not last and you didn't have the money to get more?: Sometimes True Within the past 12 months, did you worry whether your food would run out before you got money to buy more?: Sometimes True Do you have trouble paying for medicines?: Yes Do you have trouble getting transportation to medical appointments?: No Do you have trouble paying your heating and electricity bill?: Yes Do you have trouble taking care of your child, family member or friend?: No Do you have trouble with day-to-day activities such as bathing, preparing meals, shopping, managing finances, etc.?: No Are you currently unemployed and looking for a job?: No Are you interested in more education?: I choose not to answer this question Currently or been in a relationship where the following occur: No concerns reported THRIVE Score: 3 UTE-7 AMB Questionnaire UTE-7 Date UTE - 7 assessed: 09/13/24 Source: Developed by Drs. Higinio Rodriguez, Olivia Rayo, Edilberto Freeman and colleagues, with an educational smitha from [employer]. Review of Systems Const Details: Const Denies chills, Denies fatigue, Denies fever(s), Denies headache(s) and Denies weakness ENT Denies dizziness and Denies headache(s) Card Denies chest pain, Denies lightheadedness, Denies dyspnea and Denies other (Palpitations) Resp Denies cough, Denies dyspnea, Denies wheezing and Denies other ( shortness of breath) GI Denies abdominal pain, Denies melena, Denies hematochezia, Denies change in bowel habits, Denies dyspepsia and Denies nausea Denies hematuria and Denies dysuria Musc Denies abnormal gait, Denies myalgias, Denies arthralgias, Denies numbness and Denies tingling Skin/Breast Denies rash, Denies unusual bruising and Denies wounds Neuro Denies abnormal gait, Denies dizziness, Denies headache(s), Denies memory loss, Denies numbness, Denies Sensory deficit (Neuro), Denies tingling and Denies weakness Psych Denies anxiety, Denies depression, Denies memory loss Endo Denies cold intolerance, Denies fatigue, Denies heat intolerance, Denies polydipsia and Denies polyuria Aller/Immun Denies wheezing Physical exam (Primary Care) Vital Signs: Last Vital Signs Temp 97.4 F 02/03/25 09:09 Pulse 64 02/03/25 09:09 Resp 16 02/03/25 09:09 BP 118/59 L 02/03/25 09:09 Pulse Ox 99 02/03/25 09:09 Oxygen Delivery Method Room Air 02/03/25 09:09 BMI result Body Mass Index 36.5 Tobacco/Smoking Status: Tobacco use Status Tobacco use date assessed 02/03/25 02/03/25 09:14 Patient Tobacco Use Status Former Tobacco user 02/03/25 09:07 Tobacco use type Cigarette 02/03/25 09:07 e-Cigarette/Vaping Use Never Used 02/03/25 09:07 Thrive Assessment: Date of Thrive Assessment Date Thrive assessed 06/13/24 02/03/25 09:07 Currently or been in a relationship where the following occur: No concerns reported Const Other: General: no acute distress and well developed Nutritional Appearance: well nourished Orientation/consciousness: patient oriented x3 HENMT Head: Yes normocephalic and Yes atraumatic Eyes General: appearance normal, both eyes and all related structures Pupils: Equal, round and reactive pupils present EOM: EOMs intact bilaterally Resp Effort & Inspection: normal respiratory effort Auscultation: clear to auscultation bilaterally Cardio Rate: regular rate Rhythm: regular rhythm Heart sounds: S1 normal heart sound present, S2 normal heart sound present, no gallops, no murmurs and no rubs GI Palpation (GI): No Abdominal aortic bruit present, Soft to palpation, nontender, No hepatosplenomegaly present and No Rebound tenderness present Auscultation: normal bowel sounds General: Yes no CVA tenderness Back/Spine/Pelvis Back: no CVA tenderness Cervical Spine: cervical ROM normal and No Cervical spine tenderness Thoracic/Lumbar Spine: thoraco-lumbar ROM normal, No pain with thoraco-lumbar ROM, No thoracic spinal tenderness and No lumbar spinal tenderness Extrem General: Yes normal to inspection, No edema and No calf tenderness Skin General: warm and dry. Normal skin color. Normal skin turgor Neuro General: patient oriented x3, gait normal and no focal neuro deficit Cranial nerves: Yes Equal, round and reactive pupils present Cognition (Neuro): normal cognition Gait exam (Neuro): Normal gait present Sensory Exam: No Sensory deficit (Neuro) Psych Appearance: grossly normal Affect: normal affect Attitude: cooperative Thought process: Normal thought process present Results AMB Hemoglobin A1c AMB Hemoglobin A1c 6.1 % Last Edit by Latasha Blanco MA on 02/03/25 09:53 Coding Level of Care Code Est Pt Level 3 (20895) Diagnoses Type 2 diabetes mellitus without complication, with long-term current use of insulin E11.9; Z79.4 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 use: with longterm use Diabetes mellitus complication status: without complication Primary hypertension I10 Hypertension type: primary hypertension Assessment & Plan Assessment & Plan (1) Type 2 diabetes: Code(s): E11.9 - Type 2 diabetes mellitus without complications Category: Medical Qualifiers: Diabetes mellitus longterm insulin use: with watcher [employer] long goods use Diabetes mellitus complication status: without complication Qualified Code(s): E11.9 - Type 2 diabetes mellitus without complications; Z79.4 - nursing home (current) use of insulin Plan: A1c today 6.1%, within goal of less than 7.0%. Continue current treatment regimen. ADA diet and routine exercise encouraged. Follow-up in 3 months. Return sooner with symptoms or concerns. Verbalized understanding and agreed with the plan. (2) Hypertension: Code(s): I10 - Essential (primary) hypertension Category: Medical Qualifiers: Hypertension type: primary hypertension Qualified Code(s): I10 - Essential (primary) hypertension Plan: Blood pressure is 118/59, within goal of less than 130/80. Continue current treatment regimen. Low-sodium diet encouraged. Follow-up in 3 months. Verbalized understanding and agreed with the plan. Orders: Orders AMB Hemoglobin A1c Today Z13.9 - Encounter for screening, unspecified
[2025-02-03 09:09] VITALS: BP 118/59; PULSE 64; RESP 16; TEMP 36.3; O2SAT 99; BMI 36.5
--- OUTSIDE RECORDS SUMMARY | 2025-02-03 09:31 | XMS_ITS | Patient Health Record ---
Author Organization 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 Primary Care Provider Higinio Mcmahon Unavailable [phone] Velia Siddiqui Unavailable Unavailable Allergies No Known Allergies Reason For Referral No Information Medications Medication SIG (Take, Route, Frequency, Duration) Notes Start Date End Date Status Fluticasone Propionate 93 MCG/ACT 2 sprays (1 spray in each nostril) Nasally Twice a day; Duration: 30 day(s) Active Multivitamin Active Vitamin D3 50 MCG (1999 UT) Oral; Duration: 90 Active metFORMIN HCl 1000 MG Oral; Duration: 90 Active Atorvastatin Calcium 40 MG Oral; Duration: 90 Active [place] 3 Active Basaglar KwikPen 100 UNIT/ML Subcutaneous; Duration: 90 Active Zinc Active Jardiance 10 MG Oral; Duration: 90 Active Carvedilol 12.5 MG Oral; Duration: 90 Active Furosemide 40 MG TAKE 1 TABLET BY MESERET TH EVERY MORNING Oral; Duration: 90 Active Ferrous Sulfate 325 (65 Fe) MG TAKE 1 TABLET BY MOUTH 3 TIMES A DAY FOR 30 DAYS Oral; Duration: 90 Active Valsartan 80 MG Oral; Duration: 90 Active Social History Tobacco Use: Social History [...] Status Risk Notes Problem Colon cancer screening (352152199) Colon cancer screening (Z12.11) Active confirmed Problem Pre-procedure evaluation check (274722090) Encounter for other preprocedural examination (Z01.818) Active confirmed Problem Diverticular disease of colon (693603426) Diverticulosis of large intestine without perforation or abscess without bleeding (K57.30) Active confirmed Plan Of Treatment Pending Test Test Name Order Date Pathology 01/25/2024 Future Test Test Name Order Date COLONOSCOPY 10/01/2023 Insurance Providers Payer Name Payer Address Payer Phone Subscriber Number Group Number Insured Name Patient Relationship to Insured Coverage Start Date Coverage End Date [employer] [address] [place] [address] [id number] JORGE FONSECA Self - patient is the insured Medical (General) History Medical History History ICD Code Sleep apnea - CPAP machine 09/2023 DM Hypertension CKD stage 3 Anemia Hypercholesterolemia Denies AR,CVA,Lung disease Surgical History Surgery Date(Month/Year) Windber teeth Perirectal abscess -Dr. Valverde--[facility] about a [facility] 02/2022
== END 2025-02-03 09:58 | disposition home or self-care (01) ==
LOC: HO.HMCFM 09:04
PROVIDERS: PCP Nurse Practitioner Family; Visit Provider Nurse Practitioner Family
DX: E11.9 Type 2 diabetes mellitus without complications (principal); Z79.4 Long term (current) use of insulin; I10 Essential (primary) hypertension; Z13.9 Encounter for screening, unspecified

== ENCOUNTER → 2025-02-03 09:03 | Outpatient (BNVA) | payer OTHER, SELFPAY | PROVIDERS: PCP Nurse Practitioner Family; Visit Provider Nurse Practitioner Family | DX: E11.9 Type 2 diabetes mellitus without complications (principal); I10 Essential (primary) hypertension; Z79.4 Long term (current) use of insulin | CPT/HCPCS: 83036 ==

== ENCOUNTER 2025-02-24 09:15 | Outpatient (RCR) | payer OTHER, SELFPAY ==
[2025-01-03 09:32] LABS: MANUAL DIFF FLAG NO
[2025-01-03 09:53] LABS: Hematocrit 25.1 % (42.0-52.0); Hemoglobin 8.2 g/dl (14.0-18.0); Imm Gran Abs Auto 0.06 X10*3/uL (0.00-0.03); Imm Gran Pct Auto 0.7 % (0.0-0.4); Lymphocytes Absolute Auto 1.6 X10*3/uL (1.2-4.9); Mean Corpuscular HGB Conc 32.7 g/dl (31.0-36.0); Mean Corpuscular Hemoglobin 29.0 pg (27.0-33.0); Mean Corpuscular Volume 88.7 fL (80.0-98.0); NRBC Abs Auto 0.000 X10*3/uL (0.0-0.012); NRBC Pct Auto 0.0 /100WBC (0.0-0.2); Platelet Count 230 X10*3/uL (160-400); Red Blood Count 2.83 X10*6/uL (4.60-5.80); White Blood Count 8.6 X10*3/uL (4.8-10.8)
[2025-01-03 10:36] LABS: Erythrocyte Sedimentation Rate 104 MM/HR (0-15)
[2025-01-03 11:08] LABS: Procalcitonin 0.07 ng/mL
== END 2025-02-24 16:58 | disposition home or self-care (01) ==
LOC: HO.WCC 09:15
PROVIDERS: Surgery Surgical Oncology; PCP Nurse Practitioner Family; Visit Provider Surgery Vascular Surgery
DX: E11.52 Type 2 diabetes mellitus with diabetic peripheral angiopathy with gangrene (principal); I96 Gangrene, not elsewhere classified; R60.9 Edema, unspecified; M13.872 Other specified arthritis, left ankle and foot; E11.40 Type 2 diabetes mellitus with diabetic neuropathy, unspecified; E11.65 Type 2 diabetes mellitus with hyperglycemia; E11.22 Type 2 diabetes mellitus with diabetic chronic kidney disease; I13.0 Hypertensive heart and chronic kidney disease with heart failure and stage 1 through stage 4 chronic kidney disease, or unspecified chronic kidney disease; I50.30 Unspecified diastolic (congestive) heart failure; N18.30 Chronic kidney disease, stage 3 unspecified; Z79.4 Long term (current) use of insulin; Z79.84 Long term (current) use of oral hypoglycemic drugs; Z87.891 Personal history of nicotine dependence; Z86.31 Personal history of diabetic foot ulcer
CPT/HCPCS: 36415; 84145; 85025; 85652; 86140; 97597; 99212; 99214

== ENCOUNTER 2025-02-24 10:56 | Inpatient (IN) | payer OTHER, SELFPAY ==
--- OUTSIDE RECORDS SUMMARY | 2024-01-25 05:30 | XMS_ITS ---
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 Primary Care Provider Higinio Mcmahon Unavailable [phone] Velia Siddiqui Unavailable Unavailable REASON FOR VISIT screening Problems Problem Type SNOMED Code ICD Code Onset Dates Problem Status W/U Status Risk Notes Problem Diverticular disease of colon (316452980) Diverticulosis of large intestine without perforation or abscess without bleeding (K57.30) Active confirmed Encounters Encounter Location Date Provider Diagnosis [facility] [place] [address] [place] [phone] 01/25/2024 Higinio Zhang Colon cancer scree shanthi [...] * SOO FONSECA:[birth year] (54 yo M)Acc No.[id number]:01/25/2024 COLON WITH MAC Patient: JORGE DURANT Provider: Nicanor Zhang MD :1970 A ge:53 Y S ex:Male Date:01/25/2024 Address:[address] [place] [address] , [facility] Pcp:Quique Tatum N.P. Subjective: * Chief Complaints: [...] 01/25/2024 Generated for Nikkie kelley/Steven/eTransmitting on: 1 01:17 PM EDT
[2025-02-24] VITALS (19 sets, daily range): BP systolic 150–180; BP diastolic 67–87; PULSE 70–87; RESP 13–22; TEMP 36.5–39.3; O2SAT 95–98; BMI 36.8; BMI 35.8
--- NOTE | ~2025-02-24 | XR_ITS ---
EXAMINATION: XR FOOT, RIGHT CLINICAL INFORMATION: NECROTIC RIGHT MIDDLE TOE COMPARISON: None available. TECHNIQUE: AP, lateral, and oblique views of the right foot. FINDINGS: There are erosive changes of the distal tuft of the distal phalanx of the third toe. There is surrounding soft tissue swelling and air in the soft tissues. Appearance is worrisome for osteomyelitis. There is slight collapse of the plantar arch or flattening of the foot. There are degenerative changes at the first MTP joint and midfoot and calcaneal cuboid joints. No fracture or dislocation.. Soft tissue arterial calcification. XR/XR foot RT min 3V IMPRESSION: Soft tissue swelling and air in the soft tissues of the third toe. Erosive changes or bone loss of the distal tuft of the distal phalanx of the third toe worrisome for osteomyelitis. Electronically signed by: Dolores Allen MD 02/24/2025 12:14 PM EDT
--- NOTE | 2025-02-24 11:13 | ED.LOWEXIN ---
HPI - Extremity Injury (Lower) General Chief Complaint: Extremity Problem Stated Complaint: Black Middle Toe on R Foot Sent by WC Time Seen by Provider: 02/24/25 11:29 Source: patient Mode of arrival: ambulatory Limitations: no limitations History of Present Illness ED Provider: Pat Miranda PA-C HPI Narrative: Patient is a 54 year old assigned male at with a history of CKD stage 3, PAD, HTN, DM, and HFpEF presenting to the emergency department today with worsening right 3rd toe wound. Patient states that he was seen at wound care for a right 3rd toe wound and was told to come to the emergency department because the wound is getting worse and is foul smelling. Patient denies any any other complaints at this time. Related Data Home Medications ?Medication ?Instructions ?Recorded ?Confirmed multivitamin 1 tab PO DAILY 03/11/22 02/24/25 omega-3 fatty acids-fish oil 684 1 cap PO DAILY 01/21/24 02/24/25 mg-1,200 mg capsule,delayed release acetaminophen 500 mg tablet 1,000 mg PO BID PRN Pain 11/11/24 02/24/25 cholecalciferol (vitamin D3) 50 50 mcg PO BEDTIME 11/11/24 02/24/25 mcg (2,000 unit) capsule fluticasone propionate 50 2 spray intranasal BID PRN for 11/11/24 02/24/25 mcg/actuation nasal allergies spray,suspension zinc acetate 25 mg (zinc) capsule 25 mg PO DAILY 11/11/24 02/24/25 insulin lispro 100 unit/mL See Protocol subcut QIDACHS 12/05/24 02/24/25 subcutaneous pen (Humalog KwikPen (U-100) Insulin) furosemide 40 mg tablet 40 mg PO BID 02/24/25 02/24/25 sodium polystyrene sulfonate 15 30 g PO MOWEFR@0900 02/24/25 02/24/25 gram oral powder Previous Rx's ?Medication ?Instructions ?Recorded blood-glucose meter (FreeStyle #1 ea 03/11/22 Lite Meter kit) blood sugar diagnostic (FreeStyle #100 ea 07/25/22 Lite Strips) comp.stocking,knee,long,medium #12 ea 04/15/23 lancets 28 gauge (FreeStyle #100 ea 08/27/23 Lancets) fenofibrate 54 mg tablet 54 mg PO DAILY #90 tabs 09/20/24 pen needle, diabetic 32 gauge x #120 ea 09/26/24 cyclobenzaprine 10 mg tablet 10 mg PO TID PRN muscle spasm #15 11/03/24 tabs carvedilol 25 mg tablet 25 mg PO BID #180 tabs 11/22/24 hydralazine 50 mg tablet 50 mg PO TID #360 tabs 11/22/24 insulin glargine 100 unit/mL (3 12 unit (0.12 mL) subcut 11/22/24 mL) subcutaneous pen (Basaglar DAILY@1700 #15 mL KwikPen U-100 Insulin) isosorbide mononitrate 30 mg 30 mg PO DAILY #90 tabs 11/22/24 tablet,extended release 24 hr clonidine HCl 0.2 mg tablet 0.2 mg PO TID 90 days #270 tabs 12/19/24 atorvastatin 40 mg tablet (Lipitor) 40 mg PO BEDTIME 90 days #90 tabs 01/02/25 Allergies Allergy/AdvReac Type Severity Reaction Status Date / Time No Known Allergies Allergy Verified 02/24/25 11:21 Review of Systems Constitutional: Constitutional: Reports as per HPI Eyes: Eyes: Reports as per HPI ENT: Reports as per HPI Cardiovascular: Cardiovascular: Reports as per HPI Respiratory: Respiratory: Reports as per HPI Gastrointestinal: Gastrointestinal: Reports as per HPI Genitourinary: Genitourinary: Reports as per HPI Musculoskeletal: Musculoskeletal: Reports as per HPI Integumentary/Breasts: Skin/Breast: Reports as per HPI Neurologic: Reports as per HPI Psychiatric: Psychiatric: Reports as per HPI Endocrine: Endocrine: Reports as per HPI Hematologic/Lymphatic: Hematologic/Lymphatic: Reports as per HPI Allergic/Immunologic: Allergic/Immunologic: Reports as per HPI [facility] Past Medical History Attestation statement: The following information was validated with the patient. Source: old records reviewed and nursing notes reviewed Medical History Hypertension Type 2 diabetes CKD stage 3 due to type [address] scan, chest Acute on chronic anemia Hyponatremia Severe obstructive sleep apnea Anemia Diabetes Osteomyelitis of third toe of left foot CKD (chronic kidney disease) stage 3, GFR 30-59 ml/min Sleep apnea Chronic heart failure with preserved ejection fraction (HFpEF) Elevated cholesterol Iron deficiency anemia Chronic renal insufficiency Diabetic nephropathy Acute heart failure with preserved ejection fraction (HFpEF) Necrotizing subcutaneous infection Surgical History History of pyloromyotomy Status post incision and drainage [place] teeth removed Family History Family History Mother Diabetes Maternal Uncle Diabetes Sister Multiple sclerosis Father Liver failure Kidney failure Social History Social History Household Members: Significant Other and Children Housing: House Are you a primary career center director to a significant other at home: No Do you presently have visiting nurse or other home services: Yes Alcohol intake: current Alcohol intake frequency: holidays/special occasions only Alcohol type: beer Patient Tobacco Use Status: Current someday Tobacco user Tobacco use type: Cigarette Years Smoked: 4 Smoked in Last 30 Days: No e-Cigarette/Vaping Use: Never Used Second Hand Smoke Exposure: No Use of substances other than those prescribed or required for medical reasons: Yes Substance Use Type: Marijuana Have you been hit, kicked, punched, or otherwise hurt by someone within the past year? If so, by whom?: No Are you DNR?: No Advance Directives: No Advance Directives Information Provided: Yes Advance Directives Date on File: 05/07/23 Do you have a plan to hurt others: No Plan service: No Current occupational status: employed Current occupation: [employer] Current occupational exposures/hazards: No Cognitive needs: No Hearing needs: No Vision needs: No Physical Exam Vital Signs: Vital Signs: Last Vital Signs Temp 98.2 F 02/24/25 15:17 Pulse 75 02/24/25 15:17 Resp 18 02/24/25 15:17 BP 180/78 H 02/24/25 15:17 Pulse Ox 97 02/24/25 15:07 O2 Del Method Room Air 02/24/25 15:07 BMI result Body Mass Index 36.8 Const: General: cooperative, no acute distress, alert and awake Nutritional Appearance: well nourished Orientation/consciousness: patient oriented x3 HEENT: Head: Yes normal to inspection and Yes atraumatic Ears: hearing grossly normal bilaterally and external ears normal General nose exam: Normal external nose present, no nasal discharge noted and no epistaxis Face and sinus: Yes normal facial exam, No abrasion and No laceration Mouth: Normal oral and palatal mucosa present, no drooling and no muffled voice Eyes: General: appearance normal, both eyes and all related structures Periorbital: periorbital findings normal Eyelids: Yes eyelids normal Conjunctivae: conjunctivae normal Pupils: Equal, round and reactive pupils present EOM: EOMs intact bilaterally Neck: Neck: Yes normal visual inspection and Yes full ROM Resp: Effort & Inspection: normal respiratory effort and able to speak in complete sentences Neuro: General: patient oriented x3, moves all extremities and CN's II-XI intact bilaterally Cranial nerves: Yes Equal, round and reactive pupils present Cognition (Neuro): normal cognition Extrem: Other: Psych: Appearance: grossly normal Mental Status: mental status grossly normal Affect: normal affect Attitude: cooperative Thought process: Normal thought process present Thought content: Normal thought content present Insight: Good insight present (Psych) Course Course Course Narrative: This is a Rapid Medical Examination (RME) performed by Maryann Patterson PA-C in triage. Full HPI, ROS, assessment and treatment plan per primary provider in the Main ED. Hx: 54 yo M hx CKD, T2DM here for eval of black toe x2 days. reports black discoloration to his right middle toe. previously followed w/ wound care for wound to L foot. was advised to come back if he had any issues. contacted their office to inform them of this new discoloration, advised to come to the ED. endorses foul smelling discharge from the area. Plan: labs, lactic, BC, xrays Medications Administered Discontinued Medications Generic Name Dose Route Start Last Admin Trade Name Freq PRN Reason Stop Dose Admin Vancomycin HCl 2,000 mg in 500 mls @ 250 mls/hr 02/24/25 12:34 02/24/25 15:12 Vancomycin/Ns IV 02/24/25 14:33 Infused ONCE ONE Infusion Piperacillin Sod/Tazobactam 50 mls @ 100 mls/hr 02/24/25 12:34 02/24/25 13:58 Sod 3.375 gm/ Sodium Chloride IV 02/24/25 13:03 Infused ONCE ONE Infusion Medical Decision Making Medical Decision Making MDM Narrative: Patient is a 54 year old assigned male at with a history of CKD stage 3, PAD, HTN, DM, and HFpEF presenting to the emergency department today with worsening right 3rd toe wound. Patient's physical exam was as noted in the physical exam portion of this note and concerning for acute infection / osteomyelitis of the right 3rd toe. Patient's blood work showed a chronic anemia with hgb of 7.0, chronic kidney disease with a BUN of 63 + CR of 3.47. Patient's alk phos was 135, CRP of 8.95, WBC of 13.5, and ESR >140. Patient's low hemoglobin is consistent with his chronic anemia. He has no evidence of active bleeding or need for transfusion at this time. Patient's right foot x-ray showed soft tissue swelling and air in the soft tissues of the right 3rd toe with erosive changes vs. bone loss of the distal tuft of the right 3rd toe - consistent with osteomyelitis. Patient was given vancomycin + zosyn. Patient's clinical presentation is most consistent with right 3rd digit osteomyelitis without sepsis (@1237) I spoke to the hospitalist team who agreed to admission. I explained my physical exam findings as well as all test results to the patient. I answered all questions asked by the patient. Patient verbalized agreement and understanding with this treatment plan and admission. Differential Diagnosis Differential Diagnoses: The differential diagnosis associated with the presentation includes R 3rd toe osteomyelitis Cellulitis Admission/Observation Consideration of admission/observation: Escalation of care including admission/observation considered Patient admitted as noted in the MDM Rationale portion of this note. Consult Healthcare Provider Management of the patient was discussed with: Hospitalist (agreed to admission as noted in the MDM Rationale portion of this note. ) Lab Data [facility] Lab Attestation statement: I reviewed the patient's lab results. My interpretation of these results are in the MDM Rationale portion of this note. 02/24/25 11:36 02/24/25 11:36 Labs: Lab Results 02/24/25 02/24/25 Range/Units 11:33 11:36 WBC 13.5 H (4.8-10.8) X10*3/uL RBC 2.34 L (4.60-5.80) X10*6/uL Hgb 7.0 L* (14.0-18.0) g/dl Hct 21.2 L (42.0-52.0) % MCV 90.6 (80.0-98.0) fL MCH 29.9 (27.0-33.0) pg MCHC 33.0 (31.0-36.0) g/dl RDW 12.7 (11.0-16.0) % Plt Count 218 D (160-400) X10*3/uL MPV 11.2 (9.4-12.4) fL Immature Gran % (Auto) 0.5 H (0.0-0.4) % Neut % (Auto) 81.3 H (45-73) % Lymph % (Auto) 8.6 L (20-40) % [place] % (Auto) 7.9 (2-11) % Eos % (Auto) 1.4 (0-4) % Baso % (Auto) 0.3 (0-2) % Lymph # (Auto) 1.2 (1.2-4.9) X10*3/uL [place] # (Auto) 1.1 (0.1-1.2) X10*3/uL Eos # (Auto) 0.2 (0.0-0.4) X10*3/uL Baso # (Auto) 0.0 (0.0-0.2) X10*3/uL Abs Immat Gran (auto) 0.07 H (0.00-0.03) X10*3/uL Absolute Neuts (auto) 10.9 H (2.0-8.3) x10*3/uL Absolute Nucleated RBC 0.000 (0.0-0.012) X10*3/uL Nucleated RBC % (auto) 0.0 (0.0-0.2) /100WBC ESR > 140 H (0-15) MM/HR Sodium 137 (135-145) mmol/L Potassium 4.2 (3.3-5.1) mmol/L Chloride 100 (96-108) mmol/L Carbon Dioxide 25 (22-29) mmol/L Anion Gap 16 (12-20) BUN 63 H (9-16) mg/dL Creatinine 3.47 H (0.5-1.4) mg/dL Estim Creat Clear Calc 29.9 Estimated GFR 19 Random Glucose 138 H (60-115) mg/dL Lactic Acid 0.7 (0.5-2.0) mmol/L Calcium 8.9 (8.4-10.2) mg/dL Magnesium 2.3 (1.6-2.6) mg/dL Total Bilirubin 0.4 (0.0-1.0) mg/dL AST 22 (5-37) U/L ALT 10 (0-40) U/L Alkaline Phosphatase 135 H (39-117) U/L C-Reactive Protein 8.95 H (< or = 0.50) mg/dL Total Protein 8.2 H (6.5-8.0) g/dL Albumin 3.9 (3.5-5.0) g/dL Independent Interpretation I performed an independent interpretation of an: Plain X-Ray Interpretation: My interpretation is in agreement with the radiologist's impression of this imaging study. Reason for Exam: NECROTIC RIGHT MIDDLE TOE EXAMINATION: XR FOOT, RIGHT CLINICAL INFORMATION: NECROTIC RIGHT MIDDLE TOE COMPARISON: None available. TECHNIQUE: AP, lateral, and oblique views of the right foot. FINDINGS: There are erosive changes of the distal tuft of the distal phalanx of the third toe. There is surrounding soft tissue swelling and air in the soft tissues. Appearance is worrisome for osteomyelitis. There is slight collapse of the plantar arch or flattening of the foot. There are degenerative changes at the first MTP joint and midfoot and calcaneal cuboid joints. No fracture or dislocation.. Soft tissue arterial calcification. XR/XR foot RT min 3V IMPRESSION: Soft tissue swelling and air in the soft tissues of the third toe. Erosive changes or bone loss of the distal tuft of the distal phalanx of the third toe worrisome for osteomyelitis. Electronically signed by: Dolores Allen MD 02/24/2025 12:14 PM EDT Dictated By: Dolores Allen MD Signed By: Electronically signed by Dolores Allen MD 02/24/25 1214 Radiology Impression Discussion of test interpretation with radiology: I have reviewed the radiologist's reading. External Record Review External record reviewed: Inpatient record Chronic Conditions Patient?s care impacted by: Diabetes Critical Care Time Critical Care Time Critical Care Time: Yes Total Critical Care Time: 38 Attestation: I spent 38 minutes of Critical Care Time with this patient. This does not include time spent on separately reported billable procedures. Discharge Plan Discharge Clinical Impression: Osteomyelitis Patient Disposition: Admitted As Inpatient Interventions: Admission Worksheet (ED) Last Done: 02/24/25 15:01
[2025-02-24 11:44] LABS: MANUAL DIFF FLAG NO
[2025-02-24 11:50] LABS: Hematocrit 21.2 % (42.0-52.0); Imm Gran Abs Auto 0.07 X10*3/uL (0.00-0.03); Imm Gran Pct Auto 0.5 % (0.0-0.4); Lymphocytes Absolute Auto 1.2 X10*3/uL (1.2-4.9); Mean Corpuscular HGB Conc 33.0 g/dl (31.0-36.0); Mean Corpuscular Hemoglobin 29.9 pg (27.0-33.0); Mean Corpuscular Volume 90.6 fL (80.0-98.0); NRBC Abs Auto 0.000 X10*3/uL (0.0-0.012); NRBC Pct Auto 0.0 /100WBC (0.0-0.2); Platelet Count 218 X10*3/uL (160-400); Red Blood Count 2.34 X10*6/uL (4.60-5.80); White Blood Count 13.5 X10*3/uL (4.8-10.8)
[2025-02-24 11:53] LABS: Hemoglobin 7.0 g/dl (14.0-18.0)
[2025-02-24 12:03] LABS: Alanine Aminotransferase 10 U/L (0-40); Albumin Level 3.9 g/dL (3.5-5.0); Alkaline Phosphatase 135 U/L (39-117); Anion Gap 16 (12-20); Aspartate Amino Transferase 22 U/L (5-37); Blood Urea Nitrogen 63 mg/dL (9-16); Calcium 8.9 mg/dL (8.4-10.2); Carbon Dioxide 25 mmol/L (22-29); Chloride 100 mmol/L (96-108); Creatinine Clr Calc Pharmacy 29.9; Estimated Glomerular Filt Rate 19; Magnesium 2.3 mg/dL (1.6-2.6); Potassium 4.2 mmol/L (3.3-5.1); Sodium 137 mmol/L (135-145); Total Protein 8.2 g/dL (6.5-8.0)
[2025-02-24] MEDS: vancomycin/NS 2,000 MG/500 ML PLAST..BAG 250 MG IV (13:04)
--- NOTE | 2025-02-24 13:07 | PM.IMHP ---
History of Present Illness Date of Service: 02/24/25 Attending physician on admission: Ladarius Beard Chief Complaint: right third toe infection This is a 54-year-old male with a history of multiple medical issues including diabetes, CKD who presents to the ED for infection of right 3rd toe. Two days ago he noticed the tip of his foot was black, he scraped off the scab and underneath there was a foul smell and purulent discharge. He called the [facility] who got him in for an appointment today, he was seen in the office and they sent him to the emergency department for evaluation. He denies fever, but has had associated chills. In the emergency department he was noted to have leukocytosis of 13.5, x-ray imaging of the right foot showed erosive changes of the distal tuft of the distal phalanx of the 3rd toe concerning for osteomyelitis of the associated soft tissue swelling and air in the soft tissues. Lactic acid was within normal limits. Inflammatory markers including CRP and ESR were both significantly elevated. Renal function at baseline with creatinine 3.47. H/H was lower then previous at 11/14. Review of Systems Review of Systems: Yes all other systems are reviewed and are negative Constitutional: Constitutional: Denies chills and Denies fever(s) Cardiovascular: Cardiovascular: Denies chest pain, Denies palpitations and Denies dyspnea Respiratory: Respiratory: Denies cough and Denies dyspnea Gastrointestinal: Gastrointestinal: Denies abdominal pain, Denies nausea and Denies vomiting Endocrine: Endocrine: Denies palpitations [facility] Medical History Hypertension Type 2 diabetes CKD stage 3 due to type [address] scan, chest Acute on chronic anemia Hyponatremia Severe obstructive sleep apnea Anemia Diabetes Osteomyelitis of third toe of left foot CKD (chronic kidney disease) stage 3, GFR 30-59 ml/min Sleep apnea Chronic heart failure with preserved ejection fraction (HFpEF) Elevated cholesterol Iron deficiency anemia Chronic renal insufficiency Diabetic nephropathy Acute heart failure with preserved ejection fraction (HFpEF) Necrotizing subcutaneous infection Family History Mother Diabetes Maternal Uncle Diabetes Sister Multiple sclerosis Father Liver failure Kidney failure Surgical History History of pyloromyotomy Status post incision and drainage [place] teeth removed Social History Household Members: Significant Other and Children Housing: House Are you a primary administrator health care facility to a significant other at home: No Do you presently have visiting nurse or other home services: Yes Alcohol intake: current Alcohol intake frequency: holidays/special occasions only Alcohol type: beer Patient Tobacco Use Status: Current someday Tobacco user Tobacco use type: Cigarette Years Smoked: 4 Smoked in Last 30 Days: No e-Cigarette/Vaping Use: Never Used Second Hand Smoke Exposure: No Use of substances other than those prescribed or required for medical reasons: Yes Substance Use Type: Marijuana Have you been hit, kicked, punched, or otherwise hurt by someone within the past year? If so, by whom?: No Are you DNR?: No Advance Directives: No Advance Directives Information Provided: Yes Advance Directives Date on File: 05/07/23 Do you have a plan to hurt others: No Plan service: No Current occupational status: employed Current occupation: [employer] Current occupational exposures/hazards: No Cognitive needs: No Hearing needs: No Vision needs: No Meds Allergies Allergy/AdvReac Type Severity Reaction Status Date / Time No Known Allergies Allergy Verified 02/24/25 11:21 Active Medications: Current Medications Dextrose (Dextrose 50 % 25 Gm/50 Ml Syringe) 25 gm IVPUSH Q15M PRN; Protocol PRN Reason: per Hypoglycemia Standing Ord. Glucose (Glucose Gel 15 Gm Gel..Gram.) 15 gm PO Q15M PRN; Protocol PRN Reason: per Hypoglycemia Standing Ord. Vancomycin HCl (Vancomycin/Ns) 2,000 mg in 500 mls @ 250 mls/hr IV ONCE ONE Stop: 02/24/25 14:33 Last Admin: 02/24/25 13:04 Dose: 250 mls/hr Insulin Human Lispro (Insulin Lispro 100 Unit/Ml 3 Ml Vial) 0 unit SUBCUT QIDACHS NICHOLAS; Protocol Home Medications ?Medication ?Instructions ?Recorded ?Confirmed ?Last Taken ?Type multivitamin 1 tab PO DAILY 03/11/22 02/24/25 02/24/25 History omega-3 fatty acids-fish oil 684 1 cap PO DAILY 01/21/24 02/24/25 02/24/25 History mg-1,200 mg capsule,delayed release acetaminophen 500 mg tablet 1,000 mg PO BID PRN Pain 11/11/24 02/24/25 Unknown History cholecalciferol (vitamin D3) 50 50 mcg PO BEDTIME 11/11/24 02/24/25 02/23/25 History mcg (2,000 unit) capsule fluticasone propionate 50 2 spray intranasal BID PRN for 11/11/24 02/24/25 Unknown History mcg/actuation nasal allergies spray,suspension zinc acetate 25 mg (zinc) capsule 25 mg PO DAILY 11/11/24 02/24/25 02/24/25 History insulin lispro 100 unit/mL See Protocol subcut QIDACHS 12/05/24 02/24/25 02/24/25 History subcutaneous pen (Humalog KwikPen (U-100) Insulin) furosemide 40 mg tablet 40 mg PO BID 02/24/25 02/24/25 02/24/25 History sodium polystyrene sulfonate 15 30 g PO MOWEFR@0900 02/24/25 02/24/25 02/22/25 History gram oral powder Physical Exam Vital Signs and Narrative: Vital Signs: Last Vital Signs Temp 98.0 F 02/24/25 11:20 Pulse 72 02/24/25 12:00 Resp 22 H 02/24/25 12:00 BP 156/72 H 02/24/25 12:00 Pulse Ox 98 02/24/25 12:00 O2 Del Method Room Air 02/24/25 12:00 BMI result Body Mass Index 36.8 Const: General: cooperative, comfortable, alert and awake Nutritional Appearance: obese Orientation/consciousness: patient oriented x3 Resp: Effort & Inspection: normal respiratory effort, able to speak in complete sentences, no respiratory distress and no use of accessory muscles Cardio: Rate: regular rate GI: Palpation (GI): Soft to palpation Skin: Other: Neuro: General: patient oriented x3, moves all extremities and CN's II-XI intact bilaterally Extrem: Other: right lower extremity edema foot to mid [place] Results Labs 02/24/25 11:36 02/24/25 11:36 Labs: Laboratory Results - last 24 hr 02/24/25 02/24/25 11:33 11:36 MCV 90.6 MCH 29.9 MCHC 33.0 RDW 12.7 Plt Count 218 D MPV 11.2 Immature Gran % (Auto) 0.5 H Neut % (Auto) 81.3 H Lymph % (Auto) 8.6 L [place] % (Auto) 7.9 Eos % (Auto) 1.4 Baso % (Auto) 0.3 Lymph # (Auto) 1.2 [place] # (Auto) 1.1 Eos # (Auto) 0.2 Baso # (Auto) 0.0 Abs Immat Gran (auto) 0.07 H Absolute Neuts (auto) 10.9 H Absolute Nucleated RBC 0.000 Nucleated RBC % (auto) 0.0 ESR > 140 H Anion Gap 16 Estim Creat Clear Calc 29.9 Estimated GFR 19 Random Glucose 138 H Lactic Acid 0.7 Calcium 8.9 Magnesium 2.3 Total Bilirubin 0.4 AST 22 ALT 10 Alkaline Phosphatase 135 H C-Reactive Protein 8.95 H Total Protein 8.2 H Albumin 3.9 Imaging Radiologist's Impressions: Impressions Foot X-Ray 02/24/25 11:40 IMPRESSION: Soft tissue swelling and air in the soft tissues of the third toe. Erosive changes or bone loss of the distal tuft of the distal phalanx of the third toe worrisome for osteomyelitis. Electronically signed by: Dolores Allen MD 02/24/2025 12:14 PM EDT RP Assessment and Plan (1) Anemia in chronic kidney disease (CKD): Qualifiers: Chronic kidney disease stage: stage 3 (moderate) Chronic kidney disease stage 3 subtype: stage 3a (GFR 45-59) Qualified Code(s): N18.31 - Chronic kidney disease, stage 3a; D63.1 - Anemia in chronic kidney disease Status: Acute (2) Type 2 diabetes: Qualifiers: Diabetes mellitus complication status: without complication Diabetes mellitus senior living insulin use: with senior living use Qualified Code(s): E11.9 - Type 2 diabetes mellitus without complications; Z79.4 - manager long term care (current) use of insulin Status: Acute (3) Osteomyelitis: Status: Acute Plan This is a 54-year-old male with history of HFpEF, T2DM, HLD, HTN, CKD3, anemia of chronic dz, NANCY on CPAP, h/o of left foot osteo s/p 6 weeks of IV antibiotics who was sent from the wound care clinic for wound infection found to have probable osteomyelitis Right third toe infection due to DM Probable osteomyelitis IV vanc and zosyn ID consultation Follow blood culture results Seen by General surgery, concern for gangrene-plan for amputation today Anemia of chronic disease in CKD Plan for 1 unit RBC follow CBC CKD3 renal function at baseline continue baseline HFpEF continue NANCY continue CPAP DM SSI, POCs, ADA diet hold glargine today for planned procedure, resume tomorrow HTN continue coreg, clonidine, hydralazine, imdur HLD continue statin, fenofibrate morbid obesity BMI 36.8 dvt ppx - heparin Patient will likely require 2 midnight stay in the hospital for management of foot infection with probable osteomyelitis requiring specialist evaluation and possible surgical procedure versus long-term antibiotics Quality Stroke Does the patient have a stroke diagnosis?: No VTE Prior VTE?: No VTE Risk Level:: Medical - moderate - high VTE Device Contraindication: N/A - Device Ordered VTE Drug Contraindication: N/A - Med Ordered
--- OUTSIDE RECORDS SUMMARY | 2025-02-24 13:17 | XMS_ITS | Patient Health Record ---
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 Primary Care Provider Higinio Mcmahon Unavailable [phone] Velia Siddiqui Unavailable Unavailable Allergies No Known [...] Calcium 40 MG Oral; Duration: 90 Active [place] 3 Active Basaglar KwikPen 100 UNIT/ML Subcutaneous; [...] Status Risk Notes Problem Colon cancer screening (867587791) Colon cancer screening (Z12.11) Active confirmed Problem Pre-procedure evaluation check (445779943) Encounter for other preprocedural examination (Z01.818) Active confirmed Problem Diverticular disease of colon (464615820) Diverticulosis of large intestine without perforation or abscess without bleeding (K57.30) Active confirmed Plan Of Treatment Pending Test Test Name Order Date Pathology 01/25/2024 Future Test Test Name Order Date COLONOSCOPY 10/01/2023 Insurance Providers Payer Name Payer Address Payer Phone Subscriber Number Group Number Insured Name Patient Relationship to Insured Coverage Start Date Coverage End Date [employer] [address] [place] [address] [id number] JORGE FONSECA Self - patient is the insured Medical (General) History Medical History History ICD Code Sleep apnea - CPAP machine 09/2023 DM Hypertension CKD stage 3 Anemia Hypercholesterolemia Denies [place],CVA,Lung disease Surgical History Surgery Date(Month/Year) [place] teeth Perirectal abscess -Dr. Valverde--[facility]os [facility] about a [facility] 02/2022
--- NOTE | 2025-02-24 13:48 | P.CONGS_ITS ---
History of Present Illness Consult details Consult date: 02/24/25 <Sal Denis PA-C - Last Filed: 02/24/25 14:17> Reason for consult: other (right 3rd toe wound) <Sal Denis PA-C - Last Filed: 02/24/25 14:17> Requesting physician: Elaina Jarvis <Sal Denis PA-C - Last Filed: 02/24/25 14:17> Narrative: 54 year old male with past medical history significant for HTN, CKD stage 3, T2DM, PAD, HFpEF, who presented to the ED following being seen at the wound care center for his right 3rd toe wound. He states that he noticed the toe was black yesterday, additionally, it began draining pus and blood and has a foul odor. He called the wound care center to be seen and upon evaluation, was told to come to the hospital. He denies fevers, chills. He last at and apple this morning around 10. States his sugars have been pretty well controlled at home, but did not check them today. Workup in the ED showing white count of 13.5, hemoglobin of 7, now recieving blood product. Xray of the foot showed erosive changes to the distal 3rd toe, suspicious for osteomyelitis. he has been started in IV vanco and zosyn. <Sal Denis PA-C - Last Filed: 02/24/25 14:17> Review of Systems 2 Review of Systems: Yes all other systems are reviewed and are negative < Sal Denis PA-C - Last Filed: 02/24/25 14:17> [facility] Past Medical History Medical History: Medical History Toe gangrene Hypertension Type 2 diabetes CKD stage 3 due to type [address] scan, chest Acute on chronic anemia Hyponatremia Severe obstructive sleep apnea Anemia Diabetes Osteomyelitis of third toe of left foot CKD (chronic kidney disease) stage 3, GFR 30-59 ml/min Sleep apnea Chronic heart failure with preserved ejection fraction (HFpEF) Elevated cholesterol Iron deficiency anemia Chronic renal insufficiency Diabetic nephropathy Acute heart failure with preserved ejection fraction (HFpEF) Necrotizing subcutaneous infection <Sal Denis PA-C - Last Filed: 02/24/25 14:17> Family History Family History: Family History Mother Diabetes Maternal Uncle Diabetes Sister Multiple sclerosis Father Liver failure Kidney failure <Sal Denis PA-C - Last Filed: 02/24/25 14:17> Surgical History Surgical History: Surgical History History of pyloromyotomy Status post incision and drainage [place] teeth removed <Sal Denis PA-C - Last Filed: 02/24/25 14:17> Social History Social History: Social History Household Members: Significant Other Housing: House Are you a primary daycare worker to a significant other at home: No Do you presently have visiting nurse or other home services: No Alcohol intake: current Alcohol intake frequency: holidays/special occasions only Alcohol type: beer Patient Tobacco Use Status: Never used Tobacco Tobacco use type: Cigarette Years Smoked: 4 Smoked in Last 30 Days: No e-Cigarette/Vaping Use: Never Used Second Hand Smoke Exposure: No Use of substances other than those prescribed or required for medical reasons: Yes Substance Use Type: Marijuana Currently Displaying Signs/Symptoms of Drug Intoxication Withdrawal: No Have you been hit, kicked, punched, or otherwise hurt by someone within the past year? If so, by whom?: No Do you feel safe in your current relationship?: Yes Is there a partner from a previous relationship who is making you feel unsafe now?: No Are you made to feel afraid or neglected: No Are you DNR?: No Advance Directives: No Advance Directives Information Provided: Yes Advance Directives Date on File: 05/07/23 Do you have a plan to hurt others: No Plan Recently lost weight without trying: No Eating poorly because of decreased appetite: No Nutrition Risks: No Nutritional Risk Poor oral hygiene: No service: No Current occupational status: employed Current occupation: [employer] Current occupational exposures/hazards: No Cognitive needs: No Hearing needs: No Vision needs: No <Sal Denis PA-C - Last Filed: 02/24/25 14:17> Meds Allergies/Adverse reactions: Allergies Allergy/AdvReac Type Severity Reaction Status Date / Time No Known Allergies Allergy Verified 02/24/25 11:21 <Sal Denis PA-C - Last Filed: 02/24/25 14:17> Active Medications: Current Medications Acetaminophen (Acetaminophen 325 Mg Tablet) 650 mg PO Q6H PRN PRN Reason: Pain, Mild 1-3,fever,headache Calcium Carbonate (Calcium Carbonate 750 Mg Tab.Chew) 750 mg PO Q4H PRN PRN Reason: Heartburn Dextrose (Dextrose 50 % 25 Gm/50 Ml Syringe) 25 gm IVPUSH Q15M PRN; Protocol PRN Reason: per Hypoglycemia Standing Ord. Glucose (Glucose Gel 15 Gm Gel..Gram.) 15 gm PO Q15M PRN; Protocol PRN Reason: per Hypoglycemia Standing Ord. Heparin Sodium (Porcine) (Heparin Sodium,Porcine 5,000 Unit/Ml Vial) 5,000 unit SUBCUT Q12H [facility] Vancomycin HCl (Vancomycin/Ns) 2,000 mg in 500 mls @ 250 mls/hr IV ONCE ONE Stop: 02/24/25 14:33 Last Admin: 02/24/25 13:04 Dose: 250 mls/hr Piperacillin Sod/Tazobactam (Sod 2.25 gm/ Sodium Chloride) 50 mls @ 100 mls/hr IV Q6H [facility] Insulin Human Lispro (Insulin Lispro 100 Unit/Ml 3 Ml Vial) 0 unit SUBCUT QIDACHS [facility]ICH[facility]; Protocol Magnesium Hydroxide (Milk Of Magnesia 30 Ml Oral.Susp) 30 ml PO DAILY PRN PRN Reason: Constipation Melatonin (Melatonin 3 Mg Tablet) 6 mg PO BEDTIME PRN PRN Reason: Insomnia Morphine Sulfate (Morphine Sulfate 4 Mg/Ml Cartridge) 2 mg IVPUSH Q4H PRN; Protocol PRN Reason: Pain, Severe (Pain Scale 7-10) Ondansetron HCl (Ondansetron Hcl 4 Mg/2 Ml Vial) 4 mg IVPUSH Q8H PRN PRN Reason: Nausea and Vomiting Oxycodone HCl (Oxycodone Hcl Immed Release 5 Mg Tablet) 5 mg PO Q6H PRN PRN Reason: Pain, Moderate(Pain Scale 4-6) Pharmacy Consult (Consult Rx Vancomycin Dosing) 1 each MISCELLANE DAILY PRN PRN Reason: Consult order Sodium Chloride (0.9 % Sodium Chloride Flush 3 Ml Syringe) 3 ml IVFLUSH QSHIFT [facility] <Sal Denis PA-C - Last Filed: 02/24/25 14:17> Home medications: Home Medications ?Medication ?Instructions ?Recorded ?Confirmed ?Last Taken ?Type multivitamin 1 tab PO DAILY 03/11/2201/2702/24/25 History omega-3 fatty acids-fish oil 684 1 cap PO DAILY 02/24/25 02/24/25 History mg-1,200 mg capsule,delayed release acetaminophen 500 mg tablet 1,000 mg PO BID PRN Pain 0 11/11/24 02/24/25 Unknown History cholecalciferol (vitamin D3) 50 50 mcg PO BEDTIME 10/2502/24/25 02/23/25 History mcg (2,000 unit) capsule fluticasone propionate 50 2 spray intranasal BID PRN f or 11/11/24 02/24/25 Unknown History mcg/actuation nasal allergies spray,suspension zinc acetate 25 mg (zinc) capsule 25 mg PO DAILY 11/1102/24/25 02/24/25 History insulin lispro 100 unit/mL See Protocol subcut QIDACHS 12/05/24 02/24/25 02/24/25 History subcutaneous pen (Humalog KwikPen (U-100) Insulin) furosemide 40 mg tablet 40 mg PO BID 02/24/2502/24/25 History sodium polystyrene sulfonate 15 30 g PO MOWEFR@0900 02/24/25 02/22/25 History gram oral powder <Sal Denis PA-C - Last Filed: 02/24/25 14:17> Physical Exam 2 Vital Signs: Vital Signs: Last Vital Signs Temp 98.0 F 02/24/25 11:20 Pulse 72 02/24/25 12:00 Resp 22 H 02/24/25 12:00 BP 156/72 H 02/24/25 12:00 Pulse Ox 98 02/24/25 12:00 O2 Del Method Room Air 02/24/25 12:00 BMI result Body Mass Index 36.8 <Sal Denis PA-C - Last Filed: 02/24/25 14:17> Const: General: comfortable and no acute distress <Sal Denis PA-C - Last Filed: 02/24/25 14:17> Orientation/consciousness: patient oriented x3 <Sal Denis PA-C - Last Filed: 02/24/25 14:17> Resp: Effort & Inspection: normal respiratory effort and able to speak in complete sentences <JAVI Renteria Last Filed: 02/24/25 14:17> Neuro: General: patient oriented x3 <JAVI Renteria Last Filed: 02/24/25 14:17> Extrem: Other: right third toe: acute gangrenous process, distal necrosis, proximal pallor. malodorous. some cellulitis over the metatarsals. <JAVI Renteria Last Filed: 02/24/25 14:17> Results Labs Result diagrams: 02/26/25 05:24 02/27/25 05:23 <JAVI Renteria Last Filed: 02/24/25 14:17> Labs: Abnormal lab results 02/24/25 Range/Units 11:36 WBC 13.5 H (4.8-10.8) X10*3/uL RBC 2.34 L (4.60-5.80) X10*6/uL Hgb 7.0 L* (14.0-18.0) g/dl Hct 21.2 L (42.0-52.0) % Immature Gran % (Auto) 0.5 H (0.0-0.4) % Neut % (Auto) 81.3 H (45-73) % Lymph % (Auto) 8.6 L (20-40) % Abs Immat Gran (auto) 0.07 H (0.00-0.03) X10*3/uL Absolute Neuts (auto) 10.9 H (2.0-8.3) x10*3/uL ESR > 140 H (0-15) MM/HR BUN 63 H (9-16) mg/dL Creatinine 3.47 H (0.5-1.4) mg/dL Random Glucose 138 H (60-115) mg/dL Alkaline Phosphatase 135 H (39-117) U/L C-Reactive Protein 8.95 H (< or = 0.50) mg/dL Total Protein 8.2 H (6.5-8.0) g/dL Short CBC 02/24/25 Range/Units 11:36 WBC 13.5 H (4.8-10.8) X10*3/uL Hgb 7.0 L* (14.0-18.0) g/dl Hct 21.2 L (42.0-52.0) % Plt Count 218 D (160-400) X10*3/uL BMP 02/24/25 11:36 Sodium 137 Potassium 4.2 Chloride 100 Carbon Dioxide 25 BUN 63 H Creatinine 3.47 H Calcium 8.9 Liver Function 02/24/25 Range/Units 11:36 Total Bilirubin 0.4 (0.0-1.0) mg/dL AST 22 (5-37) U/L ALT 10 (0-40) U/L Alkaline Phosphatase 135 H (39-117) U/L Albumin 3.9 (3.5-5.0) g/dL All other labs normal. <Sal Denis PA-C - Last Filed: 02/24/25 14:17> Assessment and Plan (1) Gangrene of toe of right foot: Status: Acute <Sal Denis PA-C - Last Filed: 02/24/25 14:17> 54-year-old male known diabetic Says that his 3rd toe on the right has been discolored and foul smelling over the past 2 days Has been worsening as well He describes having chills at home Exam shows gangrene of the 3rd toe We will need to undergo toe amputation, 3rd toe on the right I explained to him the technique of this procedure I reviewed the risks including but not limited to bleeding, infections, poor healing, the need for further surgeries He understands the benefits and alternatives He has given consent Plan to do the toe amputation in view of gangrene later today The patient is to be transfused packed RBC in view of low hemoglobin at 7, likely from chronic illness No signs of any active bleeding currently <Yoni Valverde MD - Last Filed: 02/27/25 08:04> 54 year old male with past medical history significant for HTN, CKD stage 3, T2DM, PAD, HFpEF, seen in consult for right 3rd toe wound. Patient was referred to the ED after he presented to the wound care clinic after noticing his toe was black. There was no inciting event, he states he just noticed it was black and malodorous yesterday, tried to remove some skin and it began draining pus and blood. He has not experienced fever or chills. ED workup significant for leukocytosis, 13.5, anemia, 7.0, he is receiving a unit of blood currently. Imaging of the foot is highly suspicious for acute osteomyelitis. On exam the toe is an acute gangrenous process, with necrosis of the distal tip. there is significant malodor. There is some cellulitic changes extending up the dorsum of the foot. he is currently on IV vanco and zosyn. He will need urgent amputation of the toe due to this acute gangrenous process. Patient agreeable to this plan. Amputation of R 3rd toe continue IV abx transfusion as needed for anemia <Sal Denis PA-C - Last Filed: 02/24/25 14:17> Procedures Date of Service Date of Service: 02/24/25 <Sal Denis PA-C - Last Filed: 02/24/25 14:17> 02/27/25 <Yoni Valverde MD - Last Filed: 02/27/25 08:04>
--- NOTE | 2025-02-24 13:48 | PHA.MEDREC ---
Addendum entered by Hailee Farncis RPh 02/24/25 14:11: [facility] reviewed Original Note: Pharmacy Consult ? Medication Reconciliation Pharmacy has completed the medication reconciliation. Patient was able to confirm all of his medications. Patient confirmed Basaglar KwikPen 12 units at bedtime, Insulin Lispro is per sliding scale QID, and Sodium [id number] gm powder ever Thursday, Thursday and Thursday, last dose was 02/22/25 Patient stats he takes Furosemide 40 mg BID, even though claims has Furosemide 40 mg daily. Patient had all his morning medications today.
--- NOTE | 2025-02-24 14:00 | PHA.PROG ---
Admission Date/Time: February 24, 2025 12:53 Indication: Skin (possible Osteo?) Weight in k.8 kg Adjusted body weight in Kg: [place] body weight in Kg: Obesity Dosing Indication % IBW: Serum Creatinine - Last 168 Hours 02/24/25 11:36 Creatinine 3.47 H Estimated CrCl and GFR - Last 168 Hours 02/24/25 11:36 Estim Creat Clear Calc 29.9 Estimated GFR 19 Vancomycin Loading Dose: 2000mg Current Vancomycin Dosing Regimen: 750mg q24h Vancomycin Monitoring using AUC goal of 400 - 600 range with trough as surrogate marker: 414 mg/L*hr Date and Time for next Vancomycin Level to be drawn:02/26/25 @1100 Pharmacist Comments on Vancomycin Plan: Vancomycin dosing will take advantage of [employer] as a clinical decision support tool that uses Bayesian modeling to calculate individual patient's pharmacokinetic parameters and forecast the patient's drug concentration time course with the target goal AUC 24 range of 400 - 600 mg/L/hr.
--- NOTE | 2025-02-24 14:02 | HO.ANESPROP2 ---
HPI - Anesthesia Eval Consult details Narrative: 54 yr old male for 3rd toe amputationchronic kidney disease from diabetic hypertensive renal disease Chronic kidney disease from diabetic hypertensive renal disea H/O decompensated diastolic heart failure: Jardiance on hold, see echo from 11/2024 below. PMFSH Active Problems Active Problems: All Active Problems Gangrene of toe of right foot (Acute) Osteomyelitis (Acute) Hypertension (Acute) Type 2 diabetes (Acute) CKD stage 3 due to type 2 diabetes mellitus (Acute) Diarrhea (Acute) Fatigue (Acute) Weakness (Acute) PAD (peripheral artery disease) (Acute) Septic arthritis (Acute) Diabetic infection of left foot (Acute) Toe osteomyelitis, left (Acute) Acute left-sided low back pain (Acute) Dizziness (Acute) Anemia in chronic kidney disease (CKD) (Acute) Nocturnal hypoxemia (Acute) Charcot foot due to diabetes mellitus (Acute) Varicose veins of left lower extremity with inflammation (Acute) Vaccine counseling (Acute) Normal physical examination, routine (Acute) Preop examination (Acute) Shift work sleep disorder (Acute) Metabolic acidosis (Acute) Diabetic nephropathy (Acute) Hospital discharge follow-up (Acute) Hypersomnia (Acute) Hyperalbuminemia (Acute) Kidney disease (Acute) Uncontrolled hypertension (Acute) Morbid obesity with BMI of 40.0-44.9, adult (Acute) Wound, open, toe (Acute) Iron deficiency anemia (Acute) Abnormal chest x-ray (Acute) Snoring (Acute) Edema of both feet (Acute) SOB (shortness of breath) (Acute) Obesity (BMI 30-39.9) (Acute) Bilateral swelling of feet and ankles (Acute) Elevated cholesterol with high triglycerides (Acute) Colon cancer screening (Acute) BMI 38.0-38.9,adult (Acute) Strain of right hip and thigh (Acute) Mild anemia (Acute) Postoperative visit (Acute) High potassium (Acute) Normal physical exam (Acute) Sary-rectal abscess (Acute) Poorly controlled type 2 diabetes mellitus (Acute) Chronic heart failure with preserved ejection fraction (HFpEF) (Acute) Past Medical History Medical History Hypertension Type 2 diabetes CKD stage 3 due to type [address] scan, chest Acute on chronic anemia Hyponatremia Severe obstructive sleep apnea Anemia Diabetes Osteomyelitis of third toe of left foot CKD (chronic kidney disease) stage 3, GFR 30-59 ml/min Sleep apnea Chronic heart failure with preserved ejection fraction (HFpEF) Elevated cholesterol Iron deficiency anemia Chronic renal insufficiency Diabetic nephropathy Acute heart failure with preserved ejection fraction (HFpEF) Necrotizing subcutaneous infection Family History Family History Mother Diabetes Maternal Uncle Diabetes Sister Multiple sclerosis Father Liver failure Kidney failure Family history of problems with anesthesia: No Surgical History Surgical History History of pyloromyotomy Status post incision and drainage [place] teeth removed History of Problems with Anesthesia: No Social History Social History Household Members: Significant Other and Children Housing: House Are you a primary urgent care nurse practitioner to a significant other at home: No Do you presently have visiting nurse or other home services: Yes Alcohol intake: current Alcohol intake frequency: a few times a week Alcohol type: beer Patient Tobacco Use Status: Former Tobacco user Tobacco use type: Cigarette Years Smoked: 4 Smoked in Last 30 Days: No e-Cigarette/Vaping Use: Never Used Second Hand Smoke Exposure: No Use of substances other than those prescribed or required for medical reasons: Yes Substance Use Type: Marijuana Advance Directives: No Advance Directives Information Provided: Yes Advance Directives Date on File: 05/07/23 Do you have a plan to hurt others: No Plan service: No Current occupational status: employed Current occupation: [employer] Current occupational exposures/hazards: No Cognitive needs: No Hearing needs: No Vision needs: No Meds Allergies Allergy/AdvReac Type Severity Reaction Status Date / Time No Known Allergies Allergy Verified 02/24/25 11:21 Active Medications: Current Medications Acetaminophen (Acetaminophen 325 Mg Tablet) 650 mg PO Q6H PRN PRN Reason: Pain, Mild 1-3,fever,headache Calcium Carbonate (Calcium Carbonate 750 Mg Tab.Chew) 750 mg PO Q4H PRN PRN Reason: Heartburn Dextrose (Dextrose 50 % 25 Gm/50 Ml Syringe) 25 gm IVPUSH Q15M PRN; Protocol PRN Reason: per Hypoglycemia Standing Ord. Glucose (Glucose Gel 15 Gm Gel..Gram.) 15 gm PO Q15M PRN; Protocol PRN Reason: per Hypoglycemia Standing Ord. Heparin Sodium (Porcine) (Heparin Sodium,Porcine 5,000 Unit/Ml Vial) 5,000 unit SUBCUT Q12H [facility] Vancomycin HCl (Vancomycin/Ns) 2,000 mg in 500 mls @ 250 mls/hr IV ONCE ONE Stop: 02/24/25 14:33 Last Admin: 02/24/25 13:04 Dose: 250 mls/hr Piperacillin Sod/Tazobactam (Sod 2.25 gm/ Sodium Chloride) 50 mls @ 100 mls/hr IV Q6H [facility] Vancomycin HCl 750 mg/ Sodium (Chloride) 265 mls @ 265 mls/hr IV Q24H [facility] Insulin Human Lispro (Insulin Lispro 100 Unit/Ml 3 Ml Vial) 0 unit SUBCUT QIDACHS [facility]; Protocol Magnesium Hydroxide (Milk Of Magnesia 30 Ml Oral.Susp) 30 ml PO DAILY PRN PRN Reason: Constipation Melatonin (Melatonin 3 Mg Tablet) 6 mg PO BEDTIME PRN PRN Reason: Insomnia Morphine Sulfate (Morphine Sulfate 4 Mg/Ml Cartridge) 2 mg IVPUSH Q4H PRN; Protocol PRN Reason: Pain, Severe (Pain Scale 7-10) Ondansetron HCl (Ondansetron Hcl 4 Mg/2 Ml Vial) 4 mg IVPUSH Q8H PRN PRN Reason: Nausea and Vomiting Oxycodone HCl (Oxycodone Hcl Immed Release 5 Mg Tablet) 5 mg PO Q6H PRN PRN Reason: Pain, Moderate(Pain Scale 4-6) Pharmacy Consult (Consult Rx Vancomycin Dosing) 1 each MISCELLANE DAILY PRN PRN Reason: Consult order Sodium Chloride (0.9 % Sodium Chloride Flush 3 Ml Syringe) [facility] Medications ?Medication ?Instructions ?Recorded ?Confirmed ?Last Taken ?Type multivitamin 1 tab PO DAILY 03/11/22 02/24/25 02/24/25 History omega-3 fatty acids-fish oil 684 1 cap PO DAILY 01/21/24 02/24/25 02/24/25 History mg-1,200 mg capsule,delayed release acetaminophen 500 mg tablet 1,000 mg PO BID PRN Pain 11/11/24 02/24/25 Unknown History cholecalciferol (vitamin D3) 50 50 mcg PO BEDTIME 11/11/24 02/24/25 02/23/25 History mcg (2,000 unit) capsule fluticasone propionate 50 2 spray intranasal BID PRN for 11/11/24 02/24/25 Unknown History mcg/actuation nasal allergies spray,suspension zinc acetate 25 mg (zinc) capsule 25 mg PO DAILY 11/11/24 02/24/25 02/24/25 History insulin lispro 100 unit/mL See Protocol subcut QIDACHS 12/05/24 02/24/25 02/24/25 History subcutaneous pen (Humalog KwikPen (U-100) Insulin) furosemide 40 mg tablet 40 mg PO BID 02/24/25 02/24/25 02/24/25 History sodium polystyrene sulfonate 15 30 g PO MOWEFR 02/24/25 02/24/25 02/22/25 History gram oral powder Exam Height,Weight and Vital Signs: Height 5 ft 8 in Weight 109.8 kg Last Vital Signs Temp 98.0 F 02/24/25 11:20 Pulse 72 02/24/25 12:00 Resp 22 H 02/24/25 12:00 BP 156/72 H 02/24/25 12:00 Pulse Ox 98 02/24/25 12:00 O2 Del Method Room Air 02/24/25 12:00 Pertinent Lab Results Pertinent Lab Results: Laboratory Tests 02/24/25 02/24/25 02/24/25 11:33 11:36 13:45 WBC 13.5 H RBC 2.34 L Hgb 7.0 L* Hct 21.2 L MCV 90.6 MCH 29.9 MCHC 33.0 RDW 12.7 Plt Count 218 D MPV 11.2 Immature Gran % (Auto) 0.5 H Neut % (Auto) 81.3 H Lymph % (Auto) 8.6 L Reynolds % (Auto) 7.9 Eos % (Auto) 1.4 Baso % (Auto) 0.3 Lymph # (Auto) 1.2 Reynolds # (Auto) 1.1 Eos # (Auto) 0.2 Baso # (Auto) 0.0 Abs Immat Gran (auto) 0.07 H Absolute Neuts (auto) 10.9 H Absolute Nucleated RBC 0.000 Nucleated RBC % (auto) 0.0 ESR > 140 H Sodium 137 Potassium 4.2 Chloride 100 Carbon Dioxide 25 Anion Gap 16 BUN 63 H Creatinine 3.47 H Estim Creat Clear Calc 29.9 Estimated GFR 19 Random Glucose 138 H Lactic Acid 0.7 Calcium 8.9 Magnesium 2.3 Total Bilirubin 0.4 AST 22 ALT 10 Alkaline Phosphatase 135 H C-Reactive Protein 8.95 H Total Protein 8.2 H Albumin 3.9 Crossmatch See Detail Narrative Narrative: ECHO 11/2024 Conclusions: - Normal left ventricular size and systolic function. There is mildly increased left ventricular wall thickness. The visually estimated ejection fraction is between 55-60%. - E/E prime ratio is between 8 and 15 consistent with indeterminate filling pressures. - Mildly increased right ventricular cavity size. There is normal right ventricular systolic function. - The left atrium is moderately dilated. The right atrium is moderately dilated. - Significantly elevated right atrial pressure. There is no evidence of pulmonary hypertension. EKG 11/2024 Vent. Rate : 85 BPM Atrial Rate : 85 BPM P-R Int : 154 ms QRS Dur : 80 ms QT Int : 368 ms P-R-T Axes : 34 14 21 degrees QTcB Int : 437 ms Normal sinus rhythm Normal ECG When compared to the previous EKG of No significant changes seen Assessment and Plan Final Anesthetic Review Family History of Problems with Anesthesia: No History of Problems with Anesthesia: No
--- NOTE | 2025-02-24 14:50 | PC.NURSE ---
Report given to OR, or aware patient ate an apple around 10am and has not yet received blood per md order. OR stating they can not give blood and because patient atw at 10am could not go to OR now. OR staff took patient to OR, OR called will be returning patient to the ED
--- NOTE | 2025-02-24 15:44 | PC.NURSE ---
Transported to [facility] with blood infusing, accepting RN to complete 15 minute vitals.
[2025-02-24 16:10] LABS: Glucose, Whole Blood 131 mg/dL (60-115)
--- NOTE | 2025-02-24 17:33 | PC.NURSE ---
1725- patient picked up for surgical procedure by PACU RNs. Blood continues to infuse.
--- NOTE | 2025-02-24 18:32 | HO.ANESPROP2 ---
HPI - Anesthesia Eval Consult details Narrative: Right 3rd toe osteomyelitis PMFSH Active Problems Active Problems: All Active Problems Osteomyelitis (Acute) Gangrene of toe of right foot (Acute) Osteomyelitis (Acute) Hypertension (Acute) Type 2 diabetes (Acute) CKD stage 3 due to type 2 diabetes mellitus (Acute) Diarrhea (Acute) Fatigue (Acute) Weakness (Acute) PAD (peripheral artery disease) (Acute) Septic arthritis (Acute) Diabetic infection of left foot (Acute) Toe osteomyelitis, left (Acute) Acute left-sided low back pain (Acute) Dizziness (Acute) Anemia in chronic kidney disease (CKD) (Acute) Nocturnal hypoxemia (Acute) Charcot foot due to diabetes mellitus (Acute) Varicose veins of left lower extremity with inflammation (Acute) Vaccine counseling (Acute) Normal physical examination, routine (Acute) Preop examination (Acute) Shift work sleep disorder (Acute) Metabolic acidosis (Acute) Diabetic nephropathy (Acute) Hospital discharge follow-up (Acute) Hypersomnia (Acute) Hyperalbuminemia (Acute) Kidney disease (Acute) Uncontrolled hypertension (Acute) Morbid obesity with BMI of 40.0-44.9, adult (Acute) Wound, open, toe (Acute) Iron deficiency anemia (Acute) Abnormal chest x-ray (Acute) Snoring (Acute) Edema of both feet (Acute) SOB (shortness of breath) (Acute) Obesity (BMI 30-39.9) (Acute) Bilateral swelling of feet and ankles (Acute) Elevated cholesterol with high triglycerides (Acute) Colon cancer screening (Acute) BMI 38.0-38.9,adult (Acute) Strain of right hip and thigh (Acute) Mild anemia (Acute) Postoperative visit (Acute) High potassium (Acute) Normal physical exam (Acute) Sary-rectal abscess (Acute) Poorly controlled type 2 diabetes mellitus (Acute) Chronic heart failure with preserved ejection fraction (HFpEF) (Acute) Past Medical History Medical History Hypertension Type 2 diabetes CKD stage 3 due to type [address] scan, chest Acute on chronic anemia Hyponatremia Severe obstructive sleep apnea Anemia Diabetes Osteomyelitis of third toe of left foot CKD (chronic kidney disease) stage 3, GFR 30-59 ml/min Sleep apnea Chronic heart failure with preserved ejection fraction (HFpEF) Elevated cholesterol Iron deficiency anemia Chronic renal insufficiency Diabetic nephropathy Acute heart failure with preserved ejection fraction (HFpEF) Necrotizing subcutaneous infection Family History Family History Mother Diabetes Maternal Uncle Diabetes Sister Multiple sclerosis Father Liver failure Kidney failure Family history of problems with anesthesia: No Surgical History Surgical History History of pyloromyotomy Status post incision and drainage [place] teeth removed History of Problems with Anesthesia: No Social History Social History Household Members: Significant Other Housing: House Are you a primary manager wound care to a significant other at home: No Do you presently have visiting nurse or other home services: No Alcohol intake: current Alcohol intake frequency: holidays/special occasions only Alcohol type: beer Patient Tobacco Use Status: Never used Tobacco Tobacco use type: Cigarette Years Smoked: 4 Smoked in Last 30 Days: No e-Cigarette/Vaping Use: Never Used Second Hand Smoke Exposure: No Use of substances other than those prescribed or required for medical reasons: Yes Substance Use Type: Marijuana Currently Displaying Signs/Symptoms of Drug Intoxication Withdrawal: No Have you been hit, kicked, punched, or otherwise hurt by someone within the past year? If so, by whom?: No Do you feel safe in your current relationship?: Yes Is there a partner from a previous relationship who is making you feel unsafe now?: No Are you made to feel afraid or neglected: No Are you DNR?: No Advance Directives: No Advance Directives Information Provided: Yes Advance Directives Date on File: 05/07/23 Do you have a plan to hurt others: No Plan Recently lost weight without trying: No Eating poorly because of decreased appetite: No Nutrition Risks: No Nutritional Risk Poor oral hygiene: No service: No Current occupational status: employed Current occupation: [employer] Current occupational exposures/hazards: No Cognitive needs: No Hearing needs: No Vision needs: No Meds Allergies Allergy/AdvReac Type Severity Reaction Status Date / Time No Known Allergies Allergy Verified 02/24/25 11:21 Active Medications: Current Medications Acetaminophen (Acetaminophen 325 Mg Tablet) 650 mg PO Q6H PRN PRN Reason: Pain, Mild 1-3,fever,headache Atorvastatin Calcium (Atorvastatin Calcium 40 Mg Tablet) 40 mg PO BEDTIME [facility] Calcium Carbonate (Calcium Carbonate 750 Mg Tab.Chew) 750 mg PO Q4H PRN PRN Reason: Heartburn Carvedilol (Carvedilol 25 Mg Tablet) 25 mg PO BID [facility]; Protocol Clonidine HCl (Clonidine Hcl 0.2 Mg Tablet) 0.2 mg PO TID [facility]; Protocol Dextrose (Dextrose 50 % 25 Gm/50 Ml Syringe) 25 gm IVPUSH Q15M PRN; Protocol PRN Reason: per Hypoglycemia Standing Ord. Fenofibrate (Fenofibrate 54 Mg Tablet) 54 mg PO DAILY [facility] Furosemide (Furosemide 40 Mg Tablet) 40 mg PO BID [facility]; Protocol Glucose (Glucose Gel 15 Gm Gel..Gram.) 15 gm PO Q15M PRN; Protocol PRN Reason: per Hypoglycemia Standing Ord. Heparin Sodium (Porcine) (Heparin Sodium,Porcine 5,000 Unit/Ml Vial) 5,000 unit SUBCUT Q12H [facility] Last Admin: 02/24/25 15:25 Dose: 5,000 unit Hydralazine HCl (Hydralazine Hcl 50 Mg Tablet) 50 mg PO TID [facility]; Protocol Piperacillin Sod/Tazobactam (Sod 2.25 gm/ Sodium Chloride) 50 mls @ 100 mls/hr IV Q6H [facility] Last Infusion: 02/24/25 18:20 Dose: Infused Vancomycin HCl 750 mg/ Sodium (Chloride) 265 mls @ 265 mls/hr IV Q24H [facility] Insulin Glargine (Insulin Glargine,Hum.Rec.Anlog 100 Unit/Ml 10 Ml Vial) 12 unit SUBCUT DAILY@1700 [facility] Insulin Human Lispro (Insulin Lispro 100 Unit/Ml 3 Ml Vial) 0 unit SUBCUT QIDACHS [facility]; Protocol Last Admin: 02/24/25 16:11 Dose: Not Given Isosorbide Mononitrate (Isosorbide Mononitrate 30 Mg Tab.Er.24h) 30 mg PO DAILY [facility]; Protocol Magnesium Hydroxide (Milk Of Magnesia 30 Ml Oral.Susp) 30 ml PO DAILY PRN PRN Reason: Constipation Melatonin (Melatonin 3 Mg Tablet) 6 mg PO BEDTIME PRN PRN Reason: Insomnia Morphine Sulfate (Morphine Sulfate 4 Mg/Ml Cartridge) 2 mg IVPUSH Q4H PRN; Protocol PRN Reason: Pain, Severe (Pain Scale 7-10) Ondansetron HCl (Ondansetron Hcl 4 Mg/2 Ml Vial) 4 mg IVPUSH Q8H PRN PRN Reason: Nausea and Vomiting Oxycodone HCl (Oxycodone Hcl Immed Release 5 Mg Tablet) 5 mg PO Q6H PRN PRN Reason: Pain, Moderate(Pain Scale 4-6) Pharmacy Consult (Consult Rx Vancomycin Dosing) 1 each MISCELLANE DAILY PRN PRN Reason: Consult order Sodium Chloride (0.9 % Sodium Chloride Flush 3 Ml Syringe) 3 ml IVFLUSH QSHIFT [facility] Last Admin: 02/24/25 16:32 Dose: Not Given Sodium Polystyrene Sulfonate (Sodium Polystyrene Sulfon/Sorb 15 Gm/60 Ml Oral.Susp) 30 gm PO MOWEFR@0900 [facility] Vitamin D (Cholecalciferol (Vitamin D3) 25 Mcg Tablet) 50 mcg PO BEDTIME [facility] Home Medications ?Medication ?Instructions ?Recorded ?Confirmed ?Last Taken ?Type multivitamin 1 tab PO DAILY 03/11/22 02/24/25 02/24/25 History omega-3 fatty acids-fish oil 684 1 cap PO DAILY 01/21/24 02/24/25 02/24/25 History mg-1,200 mg capsule,delayed release acetaminophen 500 mg tablet 1,000 mg PO BID PRN Pain 11/11/24 02/24/25 Unknown History cholecalciferol (vitamin D3) 50 50 mcg PO BEDTIME 11/11/24 02/24/25 02/23/25 History mcg (2,000 unit) capsule fluticasone propionate 50 2 spray intranasal BID PRN for 11/11/24 02/24/25 Unknown History mcg/actuation nasal allergies spray,suspension zinc acetate 25 mg (zinc) capsule 25 mg PO DAILY 11/11/24 02/24/25 02/24/25 History insulin lispro 100 unit/mL See Protocol subcut QIDACHS 12/05/24 02/24/25 02/24/25 History subcutaneous pen (Humalog KwikPen (U-100) Insulin) furosemide 40 mg tablet 40 mg PO BID 02/24/25 02/24/25 02/24/25 History sodium polystyrene sulfonate 15 30 g PO MOWEFR@0900 02/24/25 02/24/25 02/22/25 History gram oral powder Exam Height,Weight and Vital Signs: Height 5 ft 8 in Weight 106.7 kg Last Vital Signs Temp 100 F 02/24/25 17:49 Pulse 87 10/31/25 17:49 Resp 14 02/24/25 17:49 BP 170/76 H 02/24/25 17:49 Pulse Ox 97 02/24/25 17:31 O2 Del Method Room Air 02/24/25 17:31 Pertinent Lab Results Pertinent Lab Results: Laboratory Tests 02/24/25 02/24/25 02/24/25 11:33 11:36 13:45 WBC 13.5 H RBC 2.34 L Hgb 7.0 L* Hct 21.2 L MCV 90.6 MCH 29.9 MCHC 33.0 RDW 12.7 Plt Count 218 D MPV 11.2 Immature Gran % (Auto) 0.5 H Neut % (Auto) 81.3 H Lymph % (Auto) 8.6 L [place] % (Auto) 7.9 Eos % (Auto) 1.4 Baso % (Auto) 0.3 Lymph # (Auto) 1.2 [place] # (Auto) 1.1 Eos # (Auto) 0.2 Baso # (Auto) 0.0 Abs Immat Gran (auto) 0.07 H Absolute Neuts (auto) 10.9 H Absolute Nucleated RBC 0.000 Nucleated RBC % (auto) 0.0 ESR > 140 H Sodium 137 Potassium 4.2 Chloride 100 Carbon Dioxide 25 Anion Gap 16 BUN 63 H Creatinine 3.47 H Estim Creat Clear Calc 29.9 Estimated GFR 19 POC Glucose Random Glucose 138 H Lactic Acid 0.7 Calcium 8.9 Magnesium 2.3 Total Bilirubin 0.4 AST 22 ALT 10 Alkaline Phosphatase 135 H C-Reactive Protein 8.95 H Total Protein 8.2 H Albumin 3.9 Blood Type A Positive Antibody Screen NEGATIVE Crossmatch See Detail 02/24/25 15:58 WBC RBC Hgb Hct MCV MCH MCHC RDW Plt Count MPV Immature Gran % (Auto) Neut % (Auto) Lymph % (Auto) [place] % (Auto) Eos % (Auto) Baso % (Auto) Lymph # (Auto) [place] # (Auto) Eos # (Auto) Baso # (Auto) Abs Immat Gran (auto) Absolute Neuts (auto) Absolute Nucleated RBC Nucleated RBC % (auto) ESR Sodium Potassium Chloride Carbon Dioxide Anion Gap BUN Creatinine Estim Creat Clear Calc Estimated GFR POC Glucose 131 H Random Glucose Lactic Acid Calcium Magnesium Total Bilirubin AST ALT Alkaline Phosphatase C-Reactive Protein Total Protein Albumin Blood Type Antibody Screen Crossmatch Airway Mallampati Class: II TM Dist: >3cm Neck ROM: Full Heart: RRR Lungs: CTAB Assessment and Plan Assessment Anesthesia Assessment: Anesthesia Plan Discussed and Chart Reviewed Final Anesthetic Review Family History of Problems with Anesthesia: No History of Problems with Anesthesia: No NPO: Yes ASA Class: III and Emergency Final Preanesthetic Review: No Changes in Pt Med Stat, Meds/Allgs Chart Reviewed, Consent Obtained/Reviewed and Anes Risks/Benef Reviewed Patient Risk: High Procedure Risk: Low Anesthetic Plan Anesthetic Plan: GA Disposition: Standard PACU
--- NOTE | 2025-02-24 19:34 | P.OP_ITS ---
Operative Note Operative Note Date of Service: 02/24/25 Narrative: Preop diagnosis: Gangrene of the 3rd toe, right Postop diagnosis: The same Procedure: Amputation of the 3rd toe right Surgeon: Yoni Valverde MD The patient is a 54-year-old male known diabetic, with note of gangrene of the 3rd toe the right side. He had chills and was starting to have fever up to 102. Therefore recommended for him to undergo a toe amputation. He understood the technique of the planned procedure as was the risks, benefits, and alternatives He was brought to the operating room. He was placed supine under monitored anesthesia care. The right foot was prepped and draped in the usual sterile fashion. A surgical time-out was done. The patient receiving scheduled antibiotics. I infiltrated the planned line of incision with lidocaine 1%. I made the incision using blade 15. This has made circumferentially around the 3rd toe at the plantar aspect towards the dorsal aspect proximally. I carried down this incision with electrocautery through the full-thickness of the skin and sub cutaneous fat to expose the metatarsal head. I used curved Cueto scissors to divide tendons and the rest of the soft tissue connecting the metatarsal head to the proximal phalanx and this was delivered. This was sent as a specimen. I irrigated. I cauterized oozing areas and made sure that we had good hemostasis and all bleeders Once hemostasis was confirmed, I closed the incision with full-thickness nylon 3-0 simple interrupted sutures. The area was infiltrated with Marcaine 0.5% for postop analgesia. Dressings were applied The procedure was completed. The patient tolerated procedure well. There were no immediate complications. Estimated blood loss was about 50 cc. The patient was transferred to recovery room with stable vital signs.
[2025-02-24 21:28] LABS: Glucose, Whole Blood 170 mg/dL (60-115)
--- NOTE | 2025-02-24 21:37 | PC.NURSE ---
When rechecking patient's blood pressure before administering hi BP meds, blood pressure was 179/81 at 2047. Administered his scheduled blood pressure medications and notified Aye Snow. Received orders to reassess blood pressure and patient now has an as needed hydralazine. Patient's blood pressure recheck at 2130 was 154/67.
[2025-02-25] VITALS (8 sets, daily range): BP systolic 134–168; BP diastolic 60–78; PULSE 60–70; RESP 18; TEMP 36.3–37.2; O2SAT 97–99
[2025-02-25 07:17] LABS: MANUAL DIFF FLAG NO
[2025-02-25 07:21] LABS: Glucose, Whole Blood 158 mg/dL (60-115)
[2025-02-25 07:24] LABS: Hematocrit 22.4 % (42.0-52.0); Hemoglobin 7.2 g/dl (14.0-18.0); Imm Gran Abs Auto 0.05 X10*3/uL (0.00-0.03); Imm Gran Pct Auto 0.5 % (0.0-0.4); Lymphocytes Absolute Auto 1.3 X10*3/uL (1.2-4.9); Mean Corpuscular HGB Conc 32.1 g/dl (31.0-36.0); Mean Corpuscular Hemoglobin 29.4 pg (27.0-33.0); Mean Corpuscular Volume 91.4 fL (80.0-98.0); NRBC Abs Auto 0.000 X10*3/uL (0.0-0.012); NRBC Pct Auto 0.0 /100WBC (0.0-0.2); Platelet Count 189 X10*3/uL (160-400); Red Blood Count 2.45 X10*6/uL (4.60-5.80); White Blood Count 9.8 X10*3/uL (4.8-10.8)
[2025-02-25 07:36] LABS: Anion Gap 12 (12-20); Blood Urea Nitrogen 59 mg/dL (9-16); Calcium 8.3 mg/dL (8.4-10.2); Carbon Dioxide 26 mmol/L (22-29); Chloride 104 mmol/L (96-108); Creatinine Clr Calc Pharmacy 29.5; Estimated Glomerular Filt Rate 19; Potassium 4.2 mmol/L (3.3-5.1); Sodium 138 mmol/L (135-145)
[2025-02-25] MEDS: 0.9 % Sodium Chloride Flush 3 ML SYRINGE IVFLUSH ×3 (08:06→21:18)
--- NOTE | 2025-02-25 10:08 | P.PNGS_ITS ---
Subjective Subjective Date of Service: 02/25/25 Interval history: Good pain control No fever overnight Physical Exam 2 Vital Signs: Vital Signs: Last Vital Signs Temp 98.9 F 02/25/25 07:30 Pulse 67 02/25/25 07:30 Resp 18 02/25/25 07:30 BP 166/74 H 02/25/25 07:30 Pulse Ox 99 02/25/25 07:30 O2 Del Method Room Air 02/25/25 07:30 BMI result Body Mass Index 35.8 Const: General: comfortable and no acute distress Resp: Effort & Inspection: normal respiratory effort Extrem: Other: Right foot dressings dry Objective Data Active Medications Acetaminophen (Acetaminophen 325 Mg Tablet) 650 mg PO Q6H PRN PRN Reason: Pain, Mild 1-3,fever,headache Atorvastatin Calcium (Atorvastatin Calcium 40 Mg Tablet) 40 mg PO BEDTIME [facility] Last Admin: 02/24/25 20:47 Dose: 40 mg Documented By: ROSALIND Calcium Carbonate (Calcium Carbonate 750 Mg Tab.Chew) 750 mg PO Q4H PRN PRN Reason: Heartburn Carvedilol (Carvedilol 25 Mg Tablet) 25 mg PO BID [facility]; Protocol Last Admin: 02/25/25 08:03 Dose: 25 mg Documented By: DANAY Clonidine HCl (Clonidine Hcl 0.2 Mg Tablet) 0.2 mg PO TID [facility]; Protocol Last Admin: 02/25/25 08:03 Dose: 0.2 mg Documented By: DANAY Dextrose (Dextrose 50 % 25 Gm/50 Ml Syringe) 25 gm IVPUSH Q15M PRN; Protocol PRN Reason: per Hypoglycemia Standing Ord. Fenofibrate (Fenofibrate 54 Mg Tablet) 54 mg PO DAILY [facility] Last Admin: 02/25/25 08:03 Dose: 54 mg Documented By: DANAY Fluticasone Propionate (Fluticasone Propionate Nasal 16 Gm [place]) 2 spray NOSTRIL-B DAILY [facility] Last Admin: 02/25/25 08:07 Dose: Not Given Documented By: DANAY Non-Admin Reason: Patient Refused Furosemide (Furosemide 40 Mg Tablet) 40 mg PO BID [facility]; Protocol Last Admin: 02/25/25 08:03 Dose: 40 mg Documented By: DANAY Glucose (Glucose Gel 15 Gm Gel..Gram.) 15 gm PO Q15M PRN; Protocol PRN Reason: per Hypoglycemia Standing Ord. Heparin Sodium (Porcine) (Heparin Sodium,Porcine 5,000 Unit/Ml Vial) 5,000 unit SUBCUT Q12H [facility] Last Admin: 02/25/25 02:01 Dose: 5,000 unit Documented By: ROSALIND Hydralazine HCl (Hydralazine Hcl 50 Mg Tablet) 50 mg PO TID [facility]; Protocol Last Admin: 02/25/25 08:03 Dose: 50 mg Documented By: DAANY Hydralazine HCl (Hydralazine Hcl 20 Mg/Ml Vial) 10 mg IVPUSH Q6H PRN; Protocol PRN Reason: SBP > 160 Piperacillin Sod/Tazobactam (Sod 2.25 gm/ Sodium Chloride) 50 mls @ 100 mls/hr IV Q6H [facility] Last Infusion: 02/25/25 06:53 Dose: Infused Documented By: ROSALIND Vancomycin HCl 750 mg/ Sodium (Chloride) 265 mls @ 265 mls/hr IV Q24H [facility] Insulin Glargine (Insulin Glargine,Hum.Rec.Anlog 100 Unit/Ml 10 Ml Vial) 12 unit SUBCUT DAILY@1700 [facility] Insulin Human Lispro (Insulin Lispro 100 Unit/Ml 3 Ml Vial) 0 unit SUBCUT QIDACHS [facility]; Protocol Last Admin: 02/25/25 08:03 Dose: 2 unit Documented By: DANAY Isosorbide Mononitrate (Isosorbide Mononitrate 30 Mg Tab.Er.24h) 30 mg PO DAILY [facility]; Protocol Last Admin: 02/25/25 08:03 Dose: 30 mg Documented By: DANAY Magnesium Hydroxide (Milk Of Magnesia 30 Ml Oral.Susp) 30 ml PO DAILY PRN PRN Reason: Constipation Melatonin (Melatonin 3 Mg Tablet) 6 mg PO BEDTIME PRN PRN Reason: Insomnia Morphine Sulfate (Morphine Sulfate 4 Mg/Ml Cartridge) 2 mg IVPUSH Q4H PRN; Protocol PRN Reason: Pain, Severe (Pain Scale 7-10) Morphine Sulfate (Morphine Sulfate 4 Mg/Ml Cartridge) 3 mg IVPUSH Q4H PRN; Protocol PRN Reason: Pain, Severe (Pain Scale 7-10) Naloxone HCl (Naloxone Hcl 0.4 Mg/Ml Vial) 0.04 mg IVPUSH Q5M PRN PRN Reason: Excessive sedation or RR < 8 Ondansetron HCl (Ondansetron Hcl 4 Mg/2 Ml Vial) 4 mg IVPUSH Q8H PRN PRN Reason: Nausea and Vomiting Oxycodone HCl (Oxycodone Hcl Immed Release 5 Mg Tablet) 5 mg PO Q6H PRN PRN Reason: Pain, Moderate(Pain Scale 4-6) Oxycodone HCl (Oxycodone Hcl Immed Release 5 Mg Tablet) 5 mg PO Q4H PRN PRN Reason: Pain, Moderate(Pain Scale 4-6) Pharmacy Consult (Consult Rx Vancomycin Dosing) 1 each MISCELLANE DAILY PRN PRN Reason: Consult order Sodium Chloride (0.9 % Sodium Chloride Flush 3 Ml Syringe) 3 ml IVFLUSH QSHIFT [facility] Last Admin: 02/25/25 08:06 Dose: 3 ml Documented By: DANAY Sodium Polystyrene Sulfonate (Sodium Polystyrene Sulfon/Sorb 15 Gm/60 Ml Oral.Susp) 30 gm PO MOWEFR@0900 [facility] Vitamin D (Cholecalciferol (Vitamin D3) 25 Mcg Tablet) 50 mcg PO BEDTIME [facility] Last Admin: 02/24/25 20:49 Dose: 50 mcg Documented By: ROSALIND Labs 02/25/25 05:38 02/25/25 05:38 Labs: Laboratory Results - last 24 hr 02/24/25 02/24/25 02/24/25 11:33 11:36 13:45 MCV 90.6 MCH 29.9 MCHC 33.0 RDW 12.7 Plt Count 218 D MPV 11.2 Immature Gran % (Auto) 0.5 H Neut % (Auto) 81.3 H Lymph % (Auto) 8.6 L [place] % (Auto) 7.9 Eos % (Auto) 1.4 Baso % (Auto) 0.3 Lymph # (Auto) 1.2 [place] # (Auto) 1.1 Eos # (Auto) 0.2 Baso # (Auto) 0.0 Abs Immat Gran (auto) 0.07 H Absolute Neuts (auto) 10.9 H Absolute Nucleated RBC 0.000 Nucleated RBC % (auto) 0.0 ESR > 140 H Anion Gap 16 Estim Creat Clear Calc 29.9 Estimated GFR 19 POC Glucose Random Glucose 138 H Lactic Acid 0.7 Calcium 8.9 Magnesium 2.3 Total Bilirubin 0.4 AST 22 ALT 10 Alkaline Phosphatase 135 H C-Reactive Protein 8.95 H Total Protein 8.2 H Albumin 3.9 Blood Type A Positive Antibody Screen NEGATIVE Crossmatch See Detail 02/24/25 02/24/25 02/25/25 15:58 21:24 05:38 MCV 91.4 MCH 29.4 MCHC 32.1 RDW 13.6 Plt Count 189 MPV 11.9 Immature Gran % (Auto) 0.5 H Neut % (Auto) 74.5 H Lymph % (Auto) 13.7 L [place] % (Auto) 8.2 Eos % (Auto) 2.6 Baso % (Auto) 0.5 Lymph # (Auto) 1.3 [place] # (Auto) 0.8 Eos # (Auto) 0.3 Baso # (Auto) 0.1 Abs Immat Gran (auto) 0.05 H Absolute Neuts (auto) 7.3 Absolute Nucleated RBC 0.000 Nucleated RBC % (auto) 0.0 ESR Anion Gap 12 Estim Creat Clear Calc 29.5 Estimated GFR 19 POC Glucose 131 H 170 H Random Glucose 162 H Lactic Acid Calcium 8.3 L D Magnesium Total Bilirubin AST ALT Alkaline Phosphatase C-Reactive Protein Total Protein Albumin Blood Type Antibody Screen Crossmatch 02/25/25 07:18 MCV MCH MCHC RDW Plt Count MPV Immature Gran % (Auto) Neut % (Auto) Lymph % (Auto) [place] % (Auto) Eos % (Auto) Baso % (Auto) Lymph # (Auto) [place] # (Auto) Eos # (Auto) Baso # (Auto) Abs Immat Gran (auto) Absolute Neuts (auto) Absolute Nucleated RBC Nucleated RBC % (auto) ESR Anion Gap Estim Creat Clear Calc Estimated GFR POC Glucose 158 H Random Glucose Lactic Acid Calcium Magnesium Total Bilirubin AST ALT Alkaline Phosphatase C-Reactive Protein Total Protein Albumin Blood Type Antibody Screen Crossmatch Procedures Date of Service Date of Service: 02/25/25 Progress Note: A&P Assessment and plan (1) Toe gangrene: Status: Acute Assessment and Plan: Status post toe amp Dressings dry I looks well No fever overnight - he had a temperature of 102.3 degrees preop We will do a dressing change tomorrow Keep leg elevated Time Spent With Patient Time: Total time managing care of this patient today ____ minutes. Quality Stroke Does the patient have a stroke diagnosis?: No VTE Prior VTE?: No VTE Risk Level:: Medical - moderate - high VTE Device Contraindication: N/A - Device Ordered VTE Drug Contraindication: N/A - Med Ordered
[2025-02-25 10:51] LABS: Glucose, Whole Blood 154 mg/dL (60-115)
--- NOTE | 2025-02-25 15:06 | MHC.CM.PN ---
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
--- NOTE | 2025-02-25 16:14 | HO.POSTANES ---
Post Anesthesia Evaluation Post Anesthesia Evaluation Date of Service: 02/25/25 Vital Signs: Vital Signs Temp Pulse Resp BP Pulse Ox O2 Del Method 02/25/25 15:27 68 18 168/78 H 98 Room Air 02/25/25 10:50 97.4 F 60 18 155/71 H 98 Room Air 02/25/25 07:30 98.9 F 67 18 166/74 H 99 Room Air Anesthesia: TIVA Mental Status: Awake Pain Control: Satisfactory Nausea/Vomiting: None Hydration: Adequate Anesthesia-Related Issues: No Anes. Related Issues
[2025-02-25 16:23] LABS: Glucose, Whole Blood 179 mg/dL (60-115)
--- NOTE | 2025-02-25 16:29 | HO.PM.IMPN ---
Subjective Subjective Date of Service: 02/25/25 Interval History: seen and examined this morning follow up for right third toe gangrene s/p amputation patient awake, alert, feeling well Review of Systems Review of Systems: Yes all other systems are reviewed and are negative Constitutional Constitutional: Denies chills and Denies fever(s) Cardiovascular Cardiovascular: Denies chest pain, Denies palpitations and Denies dyspnea Respiratory Respiratory: Denies cough and Denies dyspnea Gastrointestinal Gastrointestinal: Denies abdominal pain, Denies diarrhea, Denies nausea and Denies vomiting Endocrine Endocrine: Denies palpitations Physical Exam Vital Signs: Vital Signs: Last Vital Signs Temp 97.4 F 02/25/25 10:50 Pulse 68 02/25/25 15:27 Resp 18 02/25/25 15:27 BP 168/78 H 02/25/25 15:27 Pulse Ox 98 02/25/25 15:27 O2 Del Method Room Air 02/25/25 15:27 BMI result Body Mass Index 35.8 Const: General: cooperative, comfortable, alert and awake Nutritional Appearance: obese Orientation/consciousness: patient oriented x3 Resp: Effort & Inspection: normal respiratory effort, able to speak in complete sentences, no respiratory distress and no use of accessory muscles Cardio: Rate: regular rate GI: Palpation (GI): Soft to palpation Skin: Other: right foot wrapped in clean dressing Neuro: General: patient oriented x3, moves all extremities and CN's II-XI intact bilaterally Extrem: Other: right lower extremity edema foot to mid [place] Objective Data Active Medications Acetaminophen (Acetaminophen 325 Mg Tablet) 650 mg PO Q6H PRN PRN Reason: Pain, Mild 1-3,fever,headache Atorvastatin Calcium (Atorvastatin Calcium 40 Mg Tablet) 40 mg PO BEDTIME [facility] Last Admin: 02/24/25 20:47 Dose: 40 mg Documented By: ROSALIND Calcium Carbonate (Calcium Carbonate 750 Mg Tab.Chew) 750 mg PO Q4H PRN PRN Reason: Heartburn Carvedilol (Carvedilol 25 Mg Tablet) 25 mg PO BID [facility]; Protocol Last Admin: 02/25/25 08:03 Dose: 25 mg Documented By: DANAY Clonidine HCl (Clonidine Hcl 0.2 Mg Tablet) 0.2 mg PO TID [facility]; Protocol Last Admin: 02/25/25 08:03 Dose: 0.2 mg Documented By: DANAY Dextrose (Dextrose 50 % 25 Gm/50 Ml Syringe) 25 gm IVPUSH Q15M PRN; Protocol PRN Reason: per Hypoglycemia Standing Ord. Fenofibrate (Fenofibrate 54 Mg Tablet) 54 mg PO DAILY [facility] Last Admin: 02/25/25 08:03 Dose: 54 mg Documented By: DANAY Fluticasone Propionate (Fluticasone Propionate Nasal 16 Gm [place]) 2 spray NOSTRIL-B DAILY [facility] Last Admin: 02/25/25 08:07 Dose: Not Given Documented By: DANAY Non-Admin Reason: Patient Refused Furosemide (Furosemide 40 Mg Tablet) 40 mg PO BID [facility]; Protocol Last Admin: 02/25/25 08:03 Dose: 40 mg Documented By: DANAY Glucose (Glucose Gel 15 Gm Gel..Gram.) 15 gm PO Q15M PRN; Protocol PRN Reason: per Hypoglycemia Standing Ord. Heparin Sodium (Porcine) (Heparin Sodium,Porcine 5,000 Unit/Ml Vial) 5,000 unit SUBCUT Q12H [facility] Last Admin: 02/25/25 16:22 Dose: Not Given Documented By: LYDIA Non-Admin Reason: prior nurse did not administer Hydralazine HCl (Hydralazine Hcl 50 Mg Tablet) 50 mg PO TID [facility]; Protocol Last Admin: 02/25/25 08:03 Dose: 50 mg Documented By: DANAY Hydralazine HCl (Hydralazine Hcl 20 Mg/Ml Vial) 10 mg IVPUSH Q6H PRN; Protocol PRN Reason: SBP > 160 Piperacillin Sod/Tazobactam (Sod 2.25 gm/ Sodium Chloride) 50 mls @ 100 mls/hr IV Q6H [facility] Last Infusion: 02/25/25 11:57 Dose: Infused Documented By: DANAY Vancomycin HCl 750 mg/ Sodium (Chloride) 265 mls @ 265 mls/hr IV Q24H [facility] Last Infusion: 02/25/25 14:37 Dose: Infused Documented By: DANAY Insulin Glargine (Insulin Glargine,Hum.Rec.Anlog 100 Unit/Ml 10 Ml Vial) 12 unit SUBCUT DAILY@1700 [facility] Insulin Human Lispro (Insulin Lispro 100 Unit/Ml 3 Ml Vial) 0 unit SUBCUT QIDACHS [facility]; Protocol Last Admin: 02/25/25 11:19 Dose: 2 unit Documented By: DANAY Isosorbide Mononitrate (Isosorbide Mononitrate 30 Mg Tab.Er.24h) 30 mg PO DAILY [facility]; Protocol Last Admin: 02/25/25 08:03 Dose: 30 mg Documented By: DANAY Magnesium Hydroxide (Milk Of Magnesia 30 Ml Oral.Susp) 30 ml PO DAILY PRN PRN Reason: Constipation Melatonin (Melatonin 3 Mg Tablet) 6 mg PO BEDTIME PRN PRN Reason: Insomnia Morphine Sulfate (Morphine Sulfate 4 Mg/Ml Cartridge) 3 mg IVPUSH Q4H PRN; Protocol PRN Reason: Pain, Severe (Pain Scale 7-10) Naloxone HCl (Naloxone Hcl 0.4 Mg/Ml Vial) 0.04 mg IVPUSH Q5M PRN PRN Reason: Excessive sedation or RR < 8 Ondansetron HCl (Ondansetron Hcl 4 Mg/2 Ml Vial) 4 mg IVPUSH Q8H PRN PRN Reason: Nausea and Vomiting Oxycodone HCl (Oxycodone Hcl Immed Release 5 Mg Tablet) 5 mg PO Q4H PRN PRN Reason: Pain, Moderate(Pain Scale 4-6) Pharmacy Consult (Consult Rx Vancomycin Dosing) 1 each MISCELLANE DAILY PRN PRN Reason: Consult order Sodium Chloride (0.9 % Sodium Chloride Flush 3 Ml Syringe) 3 ml IVFLUSH QSHIFT [facility] Last Admin: 02/25/25 08:06 Dose: 3 ml Documented By: DANAY Sodium Polystyrene Sulfonate (Sodium Polystyrene Sulfon/Sorb 15 Gm/60 Ml Oral.Susp) 30 gm PO MOWEFR@0900 [facility] Vitamin D (Cholecalciferol (Vitamin D3) 25 Mcg Tablet) 50 mcg PO BEDTIME [facility] Last Admin: 02/24/25 20:49 Dose: 50 mcg Documented By: ROSALIND Labs 02/25/25 05:38 02/25/25 05:38 Labs: Laboratory Results - last 24 hr 02/24/25 02/24/25 02/25/25 13:45 21:24 05:38 MCV 91.4 MCH 29.4 MCHC 32.1 RDW 13.6 Plt Count 189 MPV 11.9 Immature Gran % (Auto) 0.5 H Neut % (Auto) 74.5 H Lymph % (Auto) 13.7 L [place] % (Auto) 8.2 Eos % (Auto) 2.6 Baso % (Auto) 0.5 Lymph # (Auto) 1.3 [place] # (Auto) 0.8 Eos # (Auto) 0.3 Baso # (Auto) 0.1 Abs Immat Gran (auto) 0.05 H Absolute Neuts (auto) 7.3 Absolute Nucleated RBC 0.000 Nucleated RBC % (auto) 0.0 Anion Gap 12 Estim Creat Clear Calc 29.5 Estimated GFR 19 POC Glucose 170 H Random Glucose 162 H Calcium 8.3 L D Crossmatch See Detail 02/25/25 02/25/25 02/25/25 07:18 10:45 16:19 MCV MCH MCHC RDW Plt Count MPV Immature Gran % (Auto) Neut % (Auto) Lymph % (Auto) [place] % (Auto) Eos % (Auto) Baso % (Auto) Lymph # (Auto) [place] # (Auto) Eos # (Auto) Baso # (Auto) Abs Immat Gran (auto) Absolute Neuts (auto) Absolute Nucleated RBC Nucleated RBC % (auto) Anion Gap Estim Creat Clear Calc Estimated GFR POC Glucose 158 H 154 H 179 H Random Glucose Calcium Crossmatch Microbiology Microbiology Results: Microbiology 02/24/25 11:36 Blood Culture - Preliminary Blood - Venous No growth after 24 hours. 02/24/25 11:36 Blood Culture - Preliminary Blood - Venous No growth after 24 hours. Assessment and Plan (1) Osteomyelitis: Status: Acute (2) Gangrene of toe of right foot: Status: Acute Plan This is a 54-year-old male with history of HFpEF, T2DM, HLD, HTN, CKD3, anemia of chronic dz, NANCY on CPAP, h/o of left foot osteo s/p 6 weeks of IV antibiotics who was sent from the wound care clinic for wound infection found to have probable osteomyelitis Right third toe infection/gangrene/probable osteomyelitis due to DM POD #1 s/p toe amputation continue IV vanc and zosyn ID consultation Blood cultures negative to date general surgery following Anemia of chronic disease in CKD s/p 1 unit RBC 02/24 H/H similar to yesterday, hold off on further transfer for now as per nephrology CKD3 renal function at baseline continue baseline kayexalate HFpEF continue lasix NANCY continue CPAP DM SSI, POCs, ADA diet continue dose adjusted lantus HTN continue coreg, clonidine, hydralazine, imdur HLD continue statin, fenofibrate morbid obesity weight loss encouraged BMI 36.8 dvt ppx - heparin Requires ongoing inpatient stay for IV abx, post-surgical care Quality Stroke Does the patient have a stroke diagnosis?: No VTE Prior VTE?: No VTE Risk Level:: Medical - moderate - high VTE Device Contraindication: N/A - Device Ordered VTE Drug Contraindication: N/A - Med Ordered
[2025-02-25] MEDS: Insulin Glargine,Hum.rec.anlog 100 UNIT/ML 10 ML VIAL 12 UNIT SUBCUT (16:46)
[2025-02-25 20:24] LABS: Glucose, Whole Blood 181 mg/dL (60-115)
[2025-02-26] VITALS (7 sets, daily range): BP systolic 158–174; BP diastolic 72–80; PULSE 60–63; RESP 17–18; TEMP 36–36.6; O2SAT 99–100
[2025-02-26 06:02] LABS: Hematocrit 22.0 % (42.0-52.0); Hemoglobin 7.1 g/dl (14.0-18.0); Mean Corpuscular HGB Conc 32.3 g/dl (31.0-36.0); Mean Corpuscular Hemoglobin 29.2 pg (27.0-33.0); Mean Corpuscular Volume 90.5 fL (80.0-98.0); NRBC Abs Auto 0.000 X10*3/uL (0.0-0.012); NRBC Pct Auto 0.0 /100WBC (0.0-0.2); Platelet Count 193 X10*3/uL (160-400); Red Blood Count 2.43 X10*6/uL (4.60-5.80); White Blood Count 8.9 X10*3/uL (4.8-10.8)
[2025-02-26 06:14] LABS: Creatinine Clr Calc Pharmacy 32.2; Estimated Glomerular Filt Rate 21
[2025-02-26 07:41] LABS: Glucose, Whole Blood 163 mg/dL (60-115)
--- NOTE | 2025-02-26 08:05 | HO.PM.IMPN ---
Subjective Subjective Date of Service: 02/26/25 Interval History: seen and examined this morning follow up for right third toe gangrene having some pain at the amputation site. no fever/chills Review of Systems Review of Systems: Yes all other systems are reviewed and are negative Constitutional Constitutional: Denies chills and Denies fever(s) Cardiovascular Cardiovascular: Denies chest pain, Denies palpitations and Denies dyspnea Respiratory Respiratory: Denies dyspnea Gastrointestinal Gastrointestinal: Denies abdominal pain, Denies nausea and Denies vomiting Endocrine Endocrine: Denies palpitations Physical Exam Vital Signs: Vital Signs: Last Vital Signs Temp 97.8 F 02/26/25 07:42 Pulse 63 02/26/25 07:42 Resp 18 02/26/25 07:42 BP 174/80 H 02/26/25 07:42 Pulse Ox 99 02/26/25 07:42 O2 Del Method Room Air 02/26/25 07:42 O2 Flow Rate 1 02/26/25 03:26 BMI result Body Mass Index 35.8 Const: General: cooperative, comfortable, alert and awake Nutritional Appearance: obese Orientation/consciousness: patient oriented x3 Resp: Effort & Inspection: normal respiratory effort, able to speak in complete sentences, no respiratory distress and no use of accessory muscles Cardio: Rate: regular rate GI: Palpation (GI): Soft to palpation Skin: Other: right foot wrapped in clean dressing Neuro: General: patient oriented x3, moves all extremities and CN's II-XI intact bilaterally Extrem: Other: right lower extremity edema much improved Objective Data Active Medications Acetaminophen (Acetaminophen 325 Mg Tablet) 650 mg PO Q6H PRN PRN Reason: Pain, Mild 1-3,fever,headache Last Admin: 02/25/25 21:11 Dose: 650 mg Documented By: ROSALIND Atorvastatin Calcium (Atorvastatin Calcium 40 Mg Tablet) 40 mg PO BEDTIME [facility] Last Admin: 02/25/25 21:11 Dose: 40 mg Documented By: ROSALIND Calcium Carbonate (Calcium Carbonate 750 Mg Tab.Chew) 750 mg PO Q4H PRN PRN Reason: Heartburn Carvedilol (Carvedilol 25 Mg Tablet) 25 mg PO BID [facility]; Protocol Last Admin: 02/25/25 21:15 Dose: 25 mg Documented By: ROSALIND Clonidine HCl (Clonidine Hcl 0.2 Mg Tablet) 0.2 mg PO TID [facility]; Protocol Last Admin: 02/25/25 21:14 Dose: 0.2 mg Documented By: ROSALIND Dextrose (Dextrose 50 % 25 Gm/50 Ml Syringe) 25 gm IVPUSH Q15M PRN; Protocol PRN Reason: per Hypoglycemia Standing Ord. Fenofibrate (Fenofibrate 54 Mg Tablet) 54 mg PO DAILY [facility] Last Admin: 02/25/25 08:03 Dose: 54 mg Documented By: DANAY Fluticasone Propionate (Fluticasone Propionate Nasal 16 Gm [place]) 2 spray NOSTRIL-B DAILY [facility] Last Admin: 02/25/25 21:12 Dose: 2 spray Documented By: ROSALIND Furosemide (Furosemide 40 Mg Tablet) 40 mg PO BID [facility]; Protocol Last Admin: 02/25/25 21:15 Dose: 40 mg Documented By: ROSALIND Glucose (Glucose Gel 15 Gm Gel..Gram.) 15 gm PO Q15M PRN; Protocol PRN Reason: per Hypoglycemia Standing Ord. Heparin Sodium (Porcine) (Heparin Sodium,Porcine 5,000 Unit/Ml Vial) 5,000 unit SUBCUT Q12H [facility] Last Admin: 02/26/25 01:29 EST Dose: 5,000 unit Documented By: ROSALIND Hydralazine HCl (Hydralazine Hcl 50 Mg Tablet) 50 mg PO TID [facility]; Protocol Last Admin: 02/25/25 21:16 Dose: 50 mg Documented By: ROSALIND Hydralazine HCl (Hydralazine Hcl 20 Mg/Ml Vial) 10 mg IVPUSH Q6H PRN; Protocol PRN Reason: SBP > 160 Piperacillin Sod/Tazobactam (Sod 2.25 gm/ Sodium Chloride) 50 mls @ 100 mls/hr IV Q6H [facility] Last Infusion: 02/26/25 06:08 Dose: Infused Documented By: ROSALIND Vancomycin HCl 750 mg/ Sodium (Chloride) 265 mls @ 265 mls/hr IV Q24H [facility] Last Infusion: 02/25/25 14:37 Dose: Infused Documented By: DANAY Insulin Glargine (Insulin Glargine,Hum.Rec.Anlog 100 Unit/Ml 10 Ml Vial) 12 unit SUBCUT DAILY@1700 [facility] Last Admin: 02/25/25 16:46 Dose: 12 unit Documented By: LYDIA Insulin Human Lispro (Insulin Lispro 100 Unit/Ml 3 Ml Vial) 0 unit SUBCUT QIDACHS [facility]; Protocol Last Admin: 02/25/25 21:11 Dose: 2 unit Documented By: ROSALIND Isosorbide Mononitrate (Isosorbide Mononitrate 30 Mg Tab.Er.24h) 30 mg PO DAILY [facility]; Protocol Last Admin: 02/25/25 08:03 Dose: 30 mg Documented By: DANAY Magnesium Hydroxide (Milk Of Magnesia 30 Ml Oral.Susp) 30 ml PO DAILY PRN PRN Reason: Constipation Melatonin (Melatonin 3 Mg Tablet) 6 mg PO BEDTIME PRN PRN Reason: Insomnia Morphine Sulfate (Morphine Sulfate 4 Mg/Ml Cartridge) 3 mg IVPUSH Q4H PRN; Protocol PRN Reason: Pain, Severe (Pain Scale 7-10) Naloxone HCl (Naloxone Hcl 0.4 Mg/Ml Vial) 0.04 mg IVPUSH Q5M PRN PRN Reason: Excessive sedation or RR < 8 Ondansetron HCl (Ondansetron Hcl 4 Mg/2 Ml Vial) 4 mg IVPUSH Q8H PRN PRN Reason: Nausea and Vomiting Oxycodone HCl (Oxycodone Hcl Immed Release 5 Mg Tablet) 5 mg PO Q4H PRN PRN Reason: Pain, Moderate(Pain Scale 4-6) Pharmacy Consult (Consult Rx Vancomycin Dosing) 1 each MISCELLANE DAILY PRN PRN Reason: Consult order Sodium Chloride (0.9 % Sodium Chloride Flush 3 Ml Syringe) 3 ml IVFLUSH QSHIFT [facility] Last Admin: 02/25/25 21:18 Dose: 3 ml Documented By: ROSALIND Sodium Polystyrene Sulfonate (Sodium Polystyrene Sulfon/Sorb 15 Gm/60 Ml Oral.Susp) 30 gm PO MOWEFR@0900 [facility] Vitamin D (Cholecalciferol (Vitamin D3) 25 Mcg Tablet) 50 mcg PO BEDTIME [facility] Last Admin: 02/25/25 21:11 Dose: 50 mcg Documented By: ROSALIND Labs 02/26/25 05:24 02/26/25 05:24 Labs: Laboratory Results - last 24 hr 02/25/25 02/25/25 02/25/25 10:45 16:19 20:19 MCV MCH MCHC RDW Plt Count MPV Absolute Nucleated RBC Nucleated RBC % (auto) Estim Creat Clear Calc Estimated GFR POC Glucose 154 H 179 H 181 H 02/26/25 02/26/25 05:24 07:32 MCV 90.5 MCH 29.2 MCHC 32.3 RDW 13.3 Plt Count 193 MPV 11.6 Absolute Nucleated RBC 0.000 Nucleated RBC % (auto) 0.0 Estim Creat Clear Calc 32.2 Estimated GFR 21 POC Glucose 163 H Microbiology Microbiology Results: Microbiology 02/24/25 11:36 Blood Culture - Preliminary Blood - Venous No growth after 24 hours. 02/24/25 11:36 Blood Culture - Preliminary Blood - Venous No growth after 24 hours. Assessment and Plan (1) Type 2 diabetes: Status: Acute (2) Gangrene of toe of right foot: Status: Acute Plan This is a 54-year-old male with history of HFpEF, T2DM, HLD, HTN, CKD3, anemia of chronic dz, NANCY on CPAP, h/o of left foot osteo s/p 6 weeks of IV antibiotics who was sent from the wound care clinic for wound infection found to have probable osteomyelitis Right third toe infection/gangrene/probable osteomyelitis due to DM POD #2 s/p toe amputation continue IV vanc and zosyn ID consultation pending. given source of infection removed not likely to need [facility] IV abx Blood cultures negative to date general surgery following, plan to change dressing today Anemia of chronic disease in CKD s/p 1 unit RBC 02/24 H/H similar to yesterday, hold off on further transfer for now as per nephrology CKD3 renal function at baseline continue baseline kayexalate HFpEF continue lasix NANCY continue CPAP DM SSI, POCs, ADA diet continue lantus HTN continue coreg, clonidine, hydralazine, imdur HLD continue statin, fenofibrate morbid obesity weight loss encouraged BMI 36.8 dvt ppx - heparin Requires ongoing inpatient stay for IV abx, post-surgical care Quality Stroke Does the patient have a stroke diagnosis?: No VTE Prior VTE?: No VTE Risk Level:: Medical - moderate - high VTE Device Contraindication: N/A - Device Ordered VTE Drug Contraindication: N/A - Med Ordered
[2025-02-26] MEDS: 0.9 % Sodium Chloride Flush 3 ML SYRINGE IVFLUSH ×3 (09:17→23:49)
--- NOTE | 2025-02-26 09:21 | PM.PNGS ---
Subjective Subjective Date of Service: 02/26/25 Interval history: No events reported He feels well overall Denies significant pain Physical Exam Vital Signs: Vital Signs: Last Vital Signs Temp 97.8 F 02/26/25 07:42 Pulse 63 02/26/25 07:42 Resp 18 02/26/25 07:42 BP 174/80 H 02/26/25 07:42 Pulse Ox 99 02/26/25 07:42 O2 Del Method Room Air 02/26/25 07:42 O2 Flow Rate 1 02/26/25 03:26 BMI result Body Mass Index 35.8 Const: Other: Ambulating General: comfortable and no acute distress Resp: Effort & Inspection: normal respiratory effort Cardio: Rate: regular rate GI: Palpation (GI): Soft to palpation Extrem: Other: Dressings taken down - amputation site clean, seems to be healing well, sutures intact, no cellulitis Objective Data Active Medications Acetaminophen (Acetaminophen 325 Mg Tablet) 650 mg PO Q6H PRN PRN Reason: Pain, Mild 1-3,fever,headache Last Admin: 02/25/25 21:11 Dose: 650 mg Documented By: ROSALIND Atorvastatin Calcium (Atorvastatin Calcium 40 Mg Tablet) 40 mg PO BEDTIME [facility] Last Admin: 02/25/25 21:11 Dose: 40 mg Documented By: ROSALIND Calcium Carbonate (Calcium Carbonate 750 Mg Tab.Chew) 750 mg PO Q4H PRN PRN Reason: Heartburn Carvedilol (Carvedilol 25 Mg Tablet) 25 mg PO BID [facility]; Protocol Last Admin: 02/25/25 21:15 Dose: 25 mg Documented By: ROSALIND Clonidine HCl (Clonidine Hcl 0.2 Mg Tablet) 0.2 mg PO TID [facility]; Protocol Last Admin: 02/25/25 21:14 Dose: 0.2 mg Documented By: ROSALIND Dextrose (Dextrose 50 % 25 Gm/50 Ml Syringe) 25 gm IVPUSH Q15M PRN; Protocol PRN Reason: per Hypoglycemia Standing Ord. Fenofibrate (Fenofibrate 54 Mg Tablet) 54 mg PO DAILY [facility] Last Admin: 02/25/25 08:03 Dose: 54 mg Documented By: DANAY Fluticasone Propionate (Fluticasone Propionate Nasal 16 Gm [place]) 2 spray NOSTRIL-B DAILY [facility] Last Admin: 02/25/25 21:12 Dose: 2 spray Documented By: ROSALIND Furosemide (Furosemide 40 Mg Tablet) 40 mg PO BID [facility]; Protocol Last Admin: 02/25/25 21:15 Dose: 40 mg Documented By: ROSALIND Glucose (Glucose Gel 15 Gm Gel..Gram.) 15 gm PO Q15M PRN; Protocol PRN Reason: per Hypoglycemia Standing Ord. Heparin Sodium (Porcine) (Heparin Sodium,Porcine 5,000 Unit/Ml Vial) 5,000 unit SUBCUT Q12H [facility] Last Admin: 02/26/25 01:29 EST Dose: 5,000 unit Documented By: ROSALIND Hydralazine HCl (Hydralazine Hcl 50 Mg Tablet) 50 mg PO TID [facility]; Protocol Last Admin: 02/25/25 21:16 Dose: 50 mg Documented By: ROSALIND Hydralazine HCl (Hydralazine Hcl 20 Mg/Ml Vial) 10 mg IVPUSH Q6H PRN; Protocol PRN Reason: SBP > 160 Piperacillin Sod/Tazobactam (Sod 2.25 gm/ Sodium Chloride) 50 mls @ 100 mls/hr IV Q6H [facility] Last Infusion: 02/26/25 06:08 Dose: Infused Documented By: ROSALIND Vancomycin HCl 750 mg/ Sodium (Chloride) 265 mls @ 265 mls/hr IV Q24H [facility] Last Infusion: 02/25/25 14:37 Dose: Infused Documented By: DANAY Insulin Glargine (Insulin Glargine,Hum.Rec.Anlog 100 Unit/Ml 10 Ml Vial) 12 unit SUBCUT DAILY@1700 [facility] Last Admin: 02/25/25 16:46 Dose: 12 unit Documented By: LYDIA Insulin Human Lispro (Insulin Lispro 100 Unit/Ml 3 Ml Vial) 0 unit SUBCUT QIDACHS [facility]; Protocol Last Admin: 02/25/25 21:11 Dose: 2 unit Documented By: ROSALIND Isosorbide Mononitrate (Isosorbide Mononitrate 30 Mg Tab.Er.24h) 30 mg PO DAILY [facility]; Protocol Last Admin: 02/25/25 08:03 Dose: 30 mg Documented By: DANAY Magnesium Hydroxide (Milk Of Magnesia 30 Ml Oral.Susp) 30 ml PO DAILY PRN PRN Reason: Constipation Melatonin (Melatonin 3 Mg Tablet) 6 mg PO BEDTIME PRN PRN Reason: Insomnia Morphine Sulfate (Morphine Sulfate 4 Mg/Ml Cartridge) 3 mg IVPUSH Q4H PRN; Protocol PRN Reason: Pain, Severe (Pain Scale 7-10) Naloxone HCl (Naloxone Hcl 0.4 Mg/Ml Vial) 0.04 mg IVPUSH Q5M PRN PRN Reason: Excessive sedation or RR < 8 Ondansetron HCl (Ondansetron Hcl 4 Mg/2 Ml Vial) 4 mg IVPUSH Q8H PRN PRN Reason: Nausea and Vomiting Oxycodone HCl (Oxycodone Hcl Immed Release 5 Mg Tablet) 5 mg PO Q4H PRN PRN Reason: Pain, Moderate(Pain Scale 4-6) Pharmacy Consult (Consult Rx Vancomycin Dosing) 1 each MISCELLANE DAILY PRN PRN Reason: Consult order Sodium Chloride (0.9 % Sodium Chloride Flush 3 Ml Syringe) 3 ml IVFLUSH QSHIFT [facility] Last Admin: 02/25/25 21:18 Dose: 3 ml Documented By: ROSALIND Sodium Polystyrene Sulfonate (Sodium Polystyrene Sulfon/Sorb 15 Gm/60 Ml Oral.Susp) 30 gm PO MOWEFR@0900 [facility] Vitamin D (Cholecalciferol (Vitamin D3) 25 Mcg Tablet) 50 mcg PO BEDTIME [facility] Last Admin: 02/25/25 21:11 Dose: 50 mcg Documented By: ROSALIND Labs 02/26/25 05:24 02/26/25 05:24 Labs: Laboratory Results - last 24 hr 02/25/25 02/25/25 02/25/25 10:45 16:19 20:19 MCV MCH MCHC RDW Plt Count MPV Absolute Nucleated RBC Nucleated RBC % (auto) Estim Creat Clear Calc Estimated GFR POC Glucose 154 H 179 H 181 H 02/26/25 02/26/25 05:24 07:32 MCV 90.5 MCH 29.2 MCHC 32.3 RDW 13.3 Plt Count 193 MPV 11.6 Absolute Nucleated RBC 0.000 Nucleated RBC % (auto) 0.0 Estim Creat Clear Calc 32.2 Estimated GFR 21 POC Glucose 163 H Microbiology Microbiology Results: Microbiology 02/24/25 11:36 Blood Culture - Preliminary Blood - Venous No growth after 24 hours. 02/24/25 11:36 Blood Culture - Preliminary Blood - Venous No growth after 24 hours. Procedures Date of Service Date of Service: 02/26/25 Progress Note: A&P Assessment and plan (1) Toe gangrene: Status: Acute Assessment and Plan: Status post toe, 3rd toe right Dressings changed Continue antibiotics I explained wound care to the patient which will require just dry dressing changes with gauze, wrapped with Kerlix and Dayne bandage He probably should benefit from a course of oral antibiotics in view of the presence of gangrene on amputated toe, with fever I will see him in the office in 2-3 weeks for removal of sutures He states that he and his should be able to do dressing changes Time Spent With Patient Time: Total time managing care of this patient today ____ minutes. Quality Stroke Does the patient have a stroke diagnosis?: No VTE Prior VTE?: No VTE Risk Level:: Medical - moderate - high VTE Device Contraindication: N/A - Device Ordered VTE Drug Contraindication: N/A - Med Ordered
[2025-02-26 11:37] LABS: Glucose, Whole Blood 143 mg/dL (60-115)
--- NOTE | 2025-02-26 13:18 | HE.PHANOTE ---
RE: VANCO Trough returned at 12.0. Increasing dose to 1000 Q24H with predicted AUC 512 and trough 17.4. Will continue to monitor renal function. Next trough 02/28 @1200.
[2025-02-26 16:04] LABS: Glucose, Whole Blood 186 mg/dL (60-115)
[2025-02-26] MEDS: Insulin Glargine,Hum.rec.anlog 100 UNIT/ML 10 ML VIAL 12 UNIT SUBCUT (16:34)
--- NOTE | 2025-02-26 17:10 | PM.DS ---
DS: Providers Provider Date of Service: 02/27/25 <NAFISA Nichole - Last Filed: 02/26/25 17:18> Date of admission: 02/24/25 12:53 <NAFISA Nichole - Last Filed: 02/26/25 17:18> Date of discharge: 02/27/25 <NAFISA Nichole - Last Filed: 02/26/25 17:18> Primary care physician: NAFISA Sharma <NAFISA Nichole - Last Filed: 02/26/25 17:18> Consults: 02/24/25 13:09 Consult to General Surgery Routine Consulting Provider: [facility] [place] General Surgeons Reason for consultation: right third toe infection Has provider been notified: No 02/24/25 13:12 Consult to Infectious Diseases Routine Consulting Provider: [facility] [place] [facility] Reason for consultation: right third toe infection, concern for osteo Has provider been notified: No <NAFISA Nichole - Last Filed: 02/26/25 17:18> DS: Diagnosis Discharge Diagnosis (1) Toe gangrene: Status: Acute <NAFISA Nichole - Last Filed: 02/26/25 17:18> DS: Summary Hospital Course Hospital Course: From H&P on the day of admission This is a 54-year-old male with a history of multiple medical issues including diabetes, CKD who presents to the ED for infection of right 3rd toe. Two days ago he noticed the tip of his foot was black, he scraped off the scab and underneath there was a foul smell and purulent discharge. [facility] who got him in for an appointment today, he was seen in the office and they sent him to the emergency department for evaluation. He denies fever, but has had associated chills. In the emergency department he was noted to have leukocytosis of 13.5, x-ray imaging of the right foot showed erosive changes of the distal tuft of the distal phalanx of the 3rd toe concerning for osteomyelitis of the associated soft tissue swelling and air in the soft tissues. Lactic acid was within normal limits. Inflammatory markers including CRP and ESR were both significantly elevated. Renal function at baseline with creatinine 3.47. H/H was lower then previous at 7. Sepsis due to Right third toe infection/gangrene/probable acute osteomyelitis due to DM Initial imaging showed concern for osteomyelitis. He was started on IV antibiotics. He was seen by General surgery who felt his foot was gangrenous and required surgical amputation. He developed fever prior to surgery, but did not have any severe features with sepsis. His elevated creatinine is due to chronic kidney disease. He underwent amputation on 02/24 and has had an uneventful postoperative course. He has not had any recurrent fever. 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 Pt was seen and evaluated by Infectious Disease who did not feel any additional IV or oral antibiotics necessary as source of infection -- pt's toe -- has been physically removed. Outpatient follow up with surgery. Anemia of chronic disease in CKD s/p 1 unit RBC 02/24. H/H similar to baseline. patient asymptomatic. Will hold off on further transfusion. Pt seen and evaluated by Nephrology and [place] 70627 units of Procrit prior to discharge. Outpatient follow up with nephrology in office for monitoring of anemia and additional procrit as necessary. <NAFISA Nichole - Last Filed: 02/26/25 17:18> Time Attestation Discharge Coordination Time (in mins): 35 <NAFISA Samayoa - Last Filed: 02/27/25 11:12> Quality: Safe Use of Opioids Does Pt have an Active Cancer Diagnosis on the Problem List?: No <NAFISA Samayoa Last Filed: 02/27/25 11:12> Quality: Stroke Does the patient have a stroke diagnosis?: No <NAFISA Nichole - Last Filed: 02/26/25 17:18> No <NAFISA Samayoa - Last Filed: 02/27/25 11:12> Physical Exam Exam: Exam: General: AOx3, no acute distress Resp: CTA bilaterally CVS: S1, S2, RRR GI: +BS, NT, no distention Skin: Warm, dry Neuro: Cranial nerves II-XII grossly intact bilaterally. Motor grossly intact bilaterally Extremities: 1+ right lower extremity pitting edema. Right foot wrapped in clean and dry bandages. See general surgery progress note for pictures of foot and surgical site at time of discharge. Psych: Appropriate affect <NAFISA Samayoa - Last Filed: 02/27/25 11:12> Vital Signs: Vital Signs: Last Vital Signs Temp 97.1 F 02/26/25 14:31 Pulse 61 02/26/25 14:31 Resp 18 02/26/25 14:31 BP 164/72 H 02/26/25 14:31 Pulse Ox 99 02/26/25 14:31 O2 Del Method Room Air 02/26/25 14:31 O2 Flow Rate 1 02/26/25 03:26 BMI result Body Mass Index 35.8 <NAFISA Nichole - Last Filed: 02/26/25 17:18> DS: Data Data Completed and Pending Completed studies during hospitalization [Text1]: Procedures Excision of Buttock Subcutaneous Tissue and Fascia, Open Approach (03/11/22) Fluoroscopy of Superior Vena Cava, Guidance (11/11/24) Insertion of Infusion Device into Superior Vena Cava, Percutaneous Approach (11/11/24) Insertion of Tunneled Vascular Access Device into Chest Subcutaneous Tissue and Fascia, Percutaneous Approach (11/11/24) Transfusion of Nonautologous Red Blood Cells into Peripheral Vein, Percutaneous Approach (12/05/24) <NAFISA Nichole - Last Filed: 02/26/25 17:18> Pending studies at discharge: Pending at discharge 02/24/25 19:50 Surgical [PTH] Routine <NAFISA Nichole - Last Filed: 02/26/25 17:18> Labs on day of discharge: Laboratory Results - last 24 hr 02/25/25 02/26/25 02/26/25 20:19 05:24 07:32 WBC 8.9 RBC 2.43 L Hgb 7.1 L Hct 22.0 L MCV 90.5 MCH 29.2 MCHC 32.3 RDW 13.3 Plt Count 193 MPV 11.6 Absolute Nucleated RBC 0.000 Nucleated RBC % (auto) 0.0 Creatinine 3.17 H Estim Creat Clear Calc 32.2 Estimated GFR 21 POC Glucose 181 H 163 H Random Vancomycin 02/26/25 02/26/25 02/26/25 11:23 11:44 16:00 WBC RBC Hgb Hct MCV MCH MCHC RDW Plt Count MPV Absolute Nucleated RBC Nucleated RBC % (auto) Creatinine Estim Creat Clear Calc Estimated GFR POC Glucose 143 H 186 H Random Vancomycin 12.0 L Preliminary micro results at discharge 02/24/25 11:36 Blood Culture - Preliminary Blood - Venous No growth after 48 hours. 02/24/25 11:36 Blood Culture - Preliminary Blood - Venous No growth after 48 hours. <NAFISA Nichole - Last Filed: 02/26/25 17:18> Discharge Plan Discharge Anticipated Discharge Date/Time: 02/27/25 11:05 <NAFISA Nichole - Last Filed: 02/26/25 17:18> Patient Disposition: Home, Self-Care <NAFISA Nichole - Last Filed: 02/26/25 17:18> Discharge Diagnosis: gangrene right third toe s/p amputation <NAFISA Nichole - Last Filed: 02/26/25 17:18> gangrene right third toe s/p amputation <NAFISA Samayoa - Last Filed: 02/27/25 11:12> Referrals: Viki Frost PA [Primary Care Provider, Endocrinology] - 1 Week Yoni Valverde MD [Physician, General Surgery] - 2 Weeks <NAFISA Nichole - Last Filed: 02/26/25 17:18> Discharge Medications: Continued (DME) FreeStyle Lite Strips Strip Qty: 100 4RF Rx Instructions: Test four times a day or as directed. (DME) lancets [FreeStyle Lancets] 28 gauge misc See Rx Instructions .ROUTE .COMPLEX Qty: 100 2RF Dose Instruction: TEST FOUR TIMES A DAY OR DIRECTED. Rx Instructions: TEST FOUR TIMES A DAY OR DIRECTED. fenofibrate 54 mg tablet 54 mg PO DAILY Qty: 90 1RF (DME) pen needle, diabetic 32 gauge x 5/32 needle See Rx Instructions .ROUTE .COMPLEX Qty: 120 8RF Dose Instruction: USE FOUR TIMES A DAY OR DIRECTED. Rx Instructions: USE FOUR TIMES A DAY OR DIRECTED. multivitamin Tablet 1 tab PO DAILY (DME) blood-glucose meter [FreeStyle Lite Meter] Kit Qty: 1 0RF Rx Instructions: As Directed omega-3 fatty acids-fish oil 684-1,200 mg Capsule,Delayed Release(Dr/Ec) 1 cap PO DAILY cyclobenzaprine 10 mg tablet 10 mg PO TID PRN (Reason: muscle spasm) Qty: 15 0RF zinc acetate 25 mg (zinc) capsule 25 mg PO DAILY Rx Instructions: substitute of 30 mg capsules ok fluticasone propionate 50 mcg/actuation spray,suspension 2 spray intranasal BID PRN (Reason: for allergies) cholecalciferol (vitamin D3) 50 mcg (2,000 unit) capsule 50 mcg PO BEDTIME acetaminophen 500 mg Tablet 1,000 mg PO BID PRN (Reason: Pain) carvedilol 25 mg Tablet 25 mg PO BID Qty: 180 0RF Protocol: Hold for SBP/HR < HOLD for SBP < : 90 HOLD for HR < : 60 isosorbide mononitrate 30 mg Tablet Extended Release 24 Hr 30 mg PO DAILY Qty: 90 0RF Protocol: Hold for SBP< HOLD for SBP < : 90 hydralazine 50 mg Tablet 50 mg PO TID Qty: 360 0RF Protocol: Hold for SBP< HOLD for SBP < : 90 insulin glargine [Basaglar KwikPen U-100 Insulin] 100 unit/mL (3 mL) insulin pen 12 unit subcut DAILY@1700 Qty: 15 0RF insulin lispro [Humalog KwikPen Insulin] 100 unit/mL insulin pen See Protocol SUBCUT QIDACHS Protocol: Insulin Correction Scale Less than or equal to 110 ---- Give (units): 0 111 to 150 Give (units): 0 151 to 200 Give (units): 2 201 to 250 Give (units): 4 251 to 300 Give (units): 6 301 to 350 Give (units): 8 Greater than 350 Give (units): 10 Call MD if Blood Glucose > : 350 furosemide 40 mg tablet 40 mg PO BID sodium polystyrene sulfonate 15 gram powder 30 g PO MOWEFR@0900 (DME) comp.stocking,knee,long,medium Misc See Rx Instructions .Route Qty: 12 0RF Rx Instructions: As directed clonidine HCl 0.2 mg tablet 0.2 mg PO TID 90 Days Qty: 270 1RF atorvastatin [Lipitor] 40 mg tablet 40 mg PO BEDTIME 90 Days Qty: 90 2RF <NAFISA Nichole - Last Filed: 02/26/25 17:18> Discharge Orders: Discharge Order (Routine); Ordered 02/27/25 Ordered By: Suresh Dawson <NAFISA Nichole - Last Filed: 02/26/25 17:18> Activity on Discharge: As tolerated <NAFISA Nicohle - Last Filed: 02/26/25 17:18> As tolerated <NAFISA Samayoa - Last Filed: 02/27/25 11:12> Stand Alone Forms: Patient Portal Discharge page <NAFISA Nichole - Last Filed: 02/26/25 17:18> Print Language: Czech <NAFISA Nichole - Last Filed: 02/26/25 17:18> Care Plan Goals: see below <NAFISA Nichole - Last Filed: 02/26/25 17:18> Health Concerns: gangrene of right third toe status post amputation <NAFISA Nichole - Last Filed: 02/26/25 17:18> Plan of Treatment: since source of infection has been removed via amputation, you do not need antibiotics upon discharge wound care: dry dressing changes with gauze, wrapped with Kerlix and Dayne bandage elevate leg while sitting or laying down outpatient follow up with surgery in 2-3 weeks for removal of sutures follow up with Dr. Hernandez in Nephrology for anemia and CKD. You received an injection of Procrit prior to discharge. <NAFISA Nichole - Last Filed: 02/26/25 17:18> Assessment: See discharge <NAFISA Nichole - Last Filed: 02/26/25 17:18>
[2025-02-26] MEDS: oxyCODONE HCl Immed Release 5 MG TABLET PO ×2 (18:32→23:51)
[2025-02-26 21:04] LABS: Glucose, Whole Blood 164 mg/dL (60-115)
--- NOTE | 2025-02-26 23:45 | P.CNID_ITS ---
History of Present Illness Data of Consult Service Date: 02/25/25 Requesting physician: Elaina Jarvis Primary Care Provider: NAFISA Sharma HPI Reason for consult: OM right third toe He presents with three days darkened right third toe and odor. He denies any injury. He has had fever at home. He was started on Zosyn and Vancomycin. I had seen him 11/21 and received six weeks Vancomycin for left third toe ulcer which is doing well. He had OM left 3/4 third toe here. He just had amputation on 02/24. Review of Systems 2 Review of Systems: Yes all other systems are reviewed and are negative PMFSH Past Medical History Medical History Toe gangrene Hypertension Type 2 diabetes CKD stage 3 due to type [address] scan, chest Acute on chronic anemia Hyponatremia Severe obstructive sleep apnea Anemia Diabetes Osteomyelitis of third toe of left foot CKD (chronic kidney disease) stage 3, GFR 30-59 ml/min Sleep apnea Chronic heart failure with preserved ejection fraction (HFpEF) Elevated cholesterol Iron deficiency anemia Chronic renal insufficiency Diabetic nephropathy Acute heart failure with preserved ejection fraction (HFpEF) Necrotizing subcutaneous infection Family History Family History Mother Diabetes Maternal Uncle Diabetes Sister Multiple sclerosis Father Liver failure Kidney failure Family history: reviewed and not pertinent Surgical History Surgical History History of pyloromyotomy Status post incision and drainage [place] teeth removed Social History Social History Household Members: Significant Other Housing: House Are you a primary care transition mgr to a significant other at home: No Do you presently have visiting nurse or other home services: No Alcohol intake: current Alcohol intake frequency: holidays/special occasions only Alcohol type: beer Patient Tobacco Use Status: Never used Tobacco Tobacco use type: Cigarette Years Smoked: 4 Smoked in Last 30 Days: No e-Cigarette/Vaping Use: Never Used Second Hand Smoke Exposure: No Use of substances other than those prescribed or required for medical reasons: Yes Substance Use Type: Marijuana Currently Displaying Signs/Symptoms of Drug Intoxication Withdrawal: No Have you been hit, kicked, punched, or otherwise hurt by someone within the past year? If so, by whom?: No Do you feel safe in your current relationship?: Yes Is there a partner from a previous relationship who is making you feel unsafe now?: No Are you made to feel afraid or neglected: No Are you DNR?: No Advance Directives: No Advance Directives Information Provided: Yes Advance Directives Date on File: 05/07/23 Do you have a plan to hurt others: No Plan Recently lost weight without trying: No Eating poorly because of decreased appetite: No Nutrition Risks: No Nutritional Risk Poor oral hygiene: No service: No Current occupational status: employed Current occupation: [employer] Current occupational exposures/hazards: No Cognitive needs: No Hearing needs: No Vision needs: No Meds Allergies Allergy/AdvReac Type Severity Reaction Status Date / Time No Known Allergies Allergy Verified 02/24/25 11:21 Active Medications: Current Medications Acetaminophen (Acetaminophen 325 Mg Tablet) 650 mg PO Q6H PRN PRN Reason: Pain, Mild 1-3,fever,headache Last Admin: 02/26/25 18:32 Dose: 650 mg Atorvastatin Calcium (Atorvastatin Calcium 40 Mg Tablet) 40 mg PO BEDTIME NICHOLAS Last Admin: 02/26/25 20:04 Dose: 40 mg Calcium Carbonate (Calcium Carbonate 750 Mg Tab.Chew) 750 mg PO Q4H PRN PRN Reason: Heartburn Carvedilol (Carvedilol 25 Mg Tablet) 25 mg PO BID NICHOLAS; Protocol Last Admin: 02/26/25 20:04 Dose: 25 mg Clonidine HCl (Clonidine Hcl 0.2 Mg Tablet) 0.2 mg PO TID NICHOLAS; Protocol Last Admin: 02/26/25 20:04 Dose: 0.2 mg Dextrose (Dextrose 50 % 25 Gm/50 Ml Syringe) 25 gm IVPUSH Q15M PRN; Protocol PRN Reason: per Hypoglycemia Standing Ord. Fenofibrate (Fenofibrate 54 Mg Tablet) 54 mg PO DAILY [facility] Last Admin: 02/26/25 09:16 Dose: 54 mg Fluticasone Propionate (Fluticasone Propionate Nasal 16 Gm [place]) 2 spray NOSTRIL-B DAILY NICHOLAS Last Admin: 02/25/25 21:12 Dose: 2 spray Furosemide (Furosemide 40 Mg Tablet) 40 mg PO BID NICHOLAS; Protocol Last Admin: 02/26/25 20:04 Dose: 40 mg Glucose (Glucose Gel 15 Gm Gel..Gram.) 15 gm PO Q15M PRN; Protocol PRN Reason: per Hypoglycemia Standing Ord. Heparin Sodium (Porcine) (Heparin Sodium,Porcine 5,000 Unit/Ml Vial) 5,000 unit SUBCUT Q12H [facility] Last Admin: 02/26/25 14:42 Dose: 5,000 unit Hydralazine HCl (Hydralazine Hcl 50 Mg Tablet) 50 mg PO TID [facility]; Protocol Last Admin: 02/26/25 20:04 Dose: 50 mg Hydralazine HCl (Hydralazine Hcl 20 Mg/Ml Vial) 10 mg IVPUSH Q6H PRN; Protocol PRN Reason: SBP > 160 Piperacillin Sod/Tazobactam (Sod 2.25 gm/ Sodium Chloride) 50 mls @ 100 mls/hr IV Q6H [facility] Last Infusion: 02/26/25 18:23 Dose: Infused Vancomycin HCl 1,000 mg/ (Sodium Chloride) 270 mls @ 270 mls/hr IV Q24H [facility] Last Infusion: 02/26/25 16:12 Dose: Infused Insulin Glargine (Insulin Glargine,Hum.Rec.Anlog 100 Unit/Ml 10 Ml Vial) 12 unit SUBCUT DAILY@1700 [facility] Last Admin: 02/26/25 16:34 Dose: 12 unit Insulin Human Lispro (Insulin Lispro 100 Unit/Ml 3 Ml Vial) 0 unit SUBCUT QIDACHS [facility]; Protocol Last Admin: 02/26/25 21:10 Dose: 2 unit Isosorbide Mononitrate (Isosorbide Mononitrate 30 Mg Tab.Er.24h) 30 mg PO DAILY [facility]; Protocol Last Admin: 02/26/25 09:16 Dose: 30 mg Magnesium Hydroxide (Milk Of Magnesia 30 Ml Oral.Susp) 30 ml PO DAILY PRN PRN Reason: Constipation Melatonin (Melatonin 3 Mg Tablet) 6 mg PO BEDTIME PRN PRN Reason: Insomnia Morphine Sulfate (Morphine Sulfate 4 Mg/Ml Cartridge) 3 mg IVPUSH Q4H PRN; Protocol PRN Reason: Pain, Severe (Pain Scale 7-10) Naloxone HCl (Naloxone Hcl 0.4 Mg/Ml Vial) 0.04 mg IVPUSH Q5M PRN PRN Reason: Excessive sedation or RR < 8 Ondansetron HCl (Ondansetron Hcl 4 Mg/2 Ml Vial) 4 mg IVPUSH Q8H PRN PRN Reason: Nausea and Vomiting Oxycodone HCl (Oxycodone Hcl Immed Release 5 Mg Tablet) 5 mg PO Q4H PRN PRN Reason: Pain, Moderate(Pain Scale 4-6) Last Admin: 02/26/25 18:32 Dose: 5 mg Pharmacy Consult (Consult Rx Vancomycin Dosing) 1 each MISCELLANE DAILY PRN PRN Reason: Consult order Sodium Chloride (0.9 % Sodium Chloride Flush 3 Ml Syringe) [address] [facility] Last Admin: 02/26/25 16:35 Dose: 3 ml Sodium Polystyrene Sulfonate (Sodium Polystyrene Sulfon/Sorb 15 Gm/60 Ml Oral.Susp) 30 gm PO MOWEFR@0900 [facility] Vitamin D (Cholecalciferol (Vitamin D3) 25 Mcg Tablet) 50 mcg PO BEDTIME [facility] Last Admin: 02/26/25 20:05 Dose: 50 mcg Home Medications ?Medication ?Instructions ?Recorded ?Confirmed ?Last Taken ?Type multivitamin 1 tab PO DAILY 03/11/2201/2702/24/25 History omega-3 fatty acids-fish oil 684 1 cap PO DAILY 02/24/25 02/24/25 History mg-1,200 mg capsule,delayed release acetaminophen 500 mg tablet 1,000 mg PO BID PRN Pain 0 11/11/24 02/24/25 Unknown History cholecalciferol (vitamin D3) 50 50 mcg PO BEDTIME 10/2502/24/25 02/23/25 History mcg (2,000 unit) capsule fluticasone propionate 50 2 spray intranasal BID PRN f or 11/11/24 02/24/25 Unknown History mcg/actuation nasal allergies spray,suspension zinc acetate 25 mg (zinc) capsule 25 mg PO DAILY 11/1102/24/25 02/24/25 History insulin lispro 100 unit/mL See Protocol subcut QIDACHS 12/05/24 02/24/25 02/24/25 History subcutaneous pen (Humalog KwikPen (U-100) Insulin) furosemide 40 mg tablet 40 mg PO BID 02/24/2502/24/25 History sodium polystyrene sulfonate 15 30 g PO MOWEFR@0900 02/24/25 02/22/25 History gram oral powder Physical Exam 2 Vital Signs: Vital Signs: Last Vital Signs Temp 96.8 F 02/26/25 19:35 Pulse 63 02/26/25 20:04 Resp 17 02/26/25 20:26 BP 158/80 H 02/26/25 20:04 Pulse Ox 100 02/26/25 19:35 O2 Del Method Room Air 02/26/25 19:35 O2 Flow Rate 1 02/26/25 03:26 BMI result Body Mass Index 35.8 Const: General: cooperative HEENT: Head: Yes normal to inspection Face and sinus: Yes normal facial exam Mouth: Normal oral and palatal mucosa present Teeth and gingiva: d entition normal Eyes: General: appearance normal, both eyes and all related structures P upils: Equal, round and reactive pupils present Resp: Effort & Inspection: normal respiratory effort Cardio: Rate: regular rate Rhythm: regular rhythm GI: Palpation (GI): Soft to palpation and nontender : General: Yes no CVA tenderness Back/Spine/Pelvis: Back: no CVA tenderness Skin: General skin exam: no rashes or lesions noted Neuro: General: moves all extremities Cranial nerves: Yes Equal, round and reactive pupils present Extrem: Other: right third toe surgically absent General: Yes normal to inspection Psych: Appearance: grossly normal Results Labs 02/26/25 05:24 02/26/25 05:24 Labs: Short CBC 02/26/25 Range/Units 05:24 WBC 8.9 (4.8-10.8) X10*3/uL Hgb 7.1 L (14.0-18.0) g/dl Hct 22.0 L (42.0-52.0) % Plt Count 193 (160-400) X10*3/uL BMP 02/26/25 05:24 Creatinine 3.17 H Microbiology Microbiology Results: Microbiology 02/24/25 11:36 Blood - Venous Blood Culture - Preliminary No growth after 48 hours. 02/24/25 11:36 Blood - Venous Blood Culture - Preliminary No growth after 48 hours. Assessment and Plan (1) Type 2 diabetes: Qualifiers: Diabetes mellitus intermediate insulin use: with intermediate project manager use Diabetes mellitus complication status: without complication Qualified Code(s): E11.9 - Type 2 diabetes mellitus without complications; Z79.4 - extermination inspector (current) use of insulin Status: Acute (2) Osteomyelitis: Status: Acute Plan Since amputation occured patient doesnt need any fpc IV or oral antibiotics at at all. Follow with Vascular.
[2025-02-27 04:00] VITALS: BP 158/70; PULSE 58; RESP 16; TEMP 36.4; O2SAT 99
[2025-02-27] MEDS: oxyCODONE HCl Immed Release 5 MG TABLET PO ×2 (05:41→12:36)
[2025-02-27 05:52] LABS: Creatinine Clr Calc Pharmacy 30.8; Estimated Glomerular Filt Rate 20
[2025-02-27 07:23] VITALS: BP 174/81; PULSE 64; RESP 18; TEMP 36.3; O2SAT 97
[2025-02-27 07:43] LABS: Glucose, Whole Blood 111 mg/dL (60-115)
--- NOTE | 2025-02-27 07:52 | PM.PNGS ---
Subjective Subjective Date of Service: 02/27/25 <Sal Denis PA-C - Last Filed: 02/27/25 10:29> 02/27/25 <Yoni Valverde MD - Last Filed: 02/27/25 08:03> Interval history: doing okay today, some increased pain in the right foot. denies fevers, chills. <Sal Denis PA-C - Last Filed: 02/27/25 10:29> Physical Exam Vital Signs: Vital Signs: Last Vital Signs Temp 97.3 F 02/27/25 07:23 Pulse 64 02/27/25 07:23 Resp 18 02/27/25 07:23 BP 174/81 H 02/27/25 07:23 Pulse Ox 97 02/27/25 07:23 O2 Del Method Room Air 02/27/25 07:23 O2 Flow Rate 1 02/26/25 03:26 BMI result Body Mass Index 35.8 <Sal Denis PA-C - Last Filed: 02/27/25 10:29> Const: General: comfortable and no acute distress <Sal Denis PA-C - Last Filed: 02/27/25 10:29> Orientation/consciousness: patient oriented x3 <Sal Denis PA-C - Last Filed: 02/27/25 10:29> Resp: Effort & Inspection: normal respiratory effort and able to speak in complete sentences <Sal Denis PA-C - Last Filed: 02/27/25 10:29> Neuro: General: patient oriented x3 <Sal Denis PA-C - Last Filed: 02/27/25 10:29> Extrem: Other: amputation site clean dry intact, no discharge. mild localized edema. no erythema <Sal Denis PA-C - Last Filed: 02/27/25 10:29> Right lower extremity: edema (1+); abnormal to inspection (3rd toe amp) <JAVI Renteria Last Filed: 02/27/25 10:29> Left lower extremity: normal to inspection; no edema <Sal Denis PA-C - Last Filed: 02/27/25 10:29> Objective Data Active Medications Acetaminophen (Acetaminophen 325 Mg Tablet) 650 mg PO Q6H PRN PRN Reason: Pain, Mild 1-3,fever,headache Last Admin: 02/26/25 18:32 Dose: 650 mg Documented By: VICKY Atorvastatin Calcium (Atorvastatin Calcium 40 Mg Tablet) 40 mg PO BEDTIME [facility] Last Admin: 02/26/25 20:04 Dose: 40 mg Documented By: MARYJO Calcium Carbonate (Calcium Carbonate 750 Mg Tab.Chew) 750 mg PO Q4H PRN PRN Reason: Heartburn Carvedilol (Carvedilol 25 Mg Tablet) 25 mg PO BID [facility]; Protocol Last Admin: 02/26/25 20:04 Dose: 25 mg Documented By: MARYJO Clonidine HCl (Clonidine Hcl 0.2 Mg Tablet) 0.2 mg PO TID [facility]; Protocol Last Admin: 02/26/25 20:04 Dose: 0.2 mg Documented By: MARYJO Dextrose (Dextrose 50 % 25 Gm/50 Ml Syringe) 25 gm IVPUSH Q15M PRN; Protocol PRN Reason: per Hypoglycemia Standing Ord. Fenofibrate (Fenofibrate 54 Mg Tablet) 54 mg PO DAILY [facility] Last Admin: 02/26/25 09:16 Dose: 54 mg Documented By: CATRINA Fluticasone Propionate (Fluticasone Propionate Nasal 16 Gm [place]) 2 spray NOSTRIL-B DAILY [facility] Last Admin: 02/25/25 21:12 Dose: 2 spray Documented By: ROSALIND Furosemide (Furosemide 40 Mg Tablet) 40 mg PO BID [facility]; Protocol Last Admin: 02/26/25 20:04 Dose: 40 mg Documented By: MARYJO Glucose (Glucose Gel 15 Gm Gel..Gram.) 15 gm PO Q15M PRN; Protocol PRN Reason: per Hypoglycemia Standing Ord. Heparin Sodium (Porcine) (Heparin Sodium,Porcine 5,000 Unit/Ml Vial) 5,000 unit SUBCUT Q12H [facility] Last Admin: 02/27/25 02:58 Dose: 5,000 unit Documented By: MINAL Hydralazine HCl (Hydralazine Hcl 50 Mg Tablet) 50 mg PO TID [facility]; Protocol Last Admin: 02/26/25 20:04 Dose: 50 mg Documented By: MARYJO Hydralazine HCl (Hydralazine Hcl 20 Mg/Ml Vial) 10 mg IVPUSH Q6H PRN; Protocol PRN Reason: SBP > 160 Piperacillin Sod/Tazobactam (Sod 2.25 gm/ Sodium Chloride) 50 mls @ 100 mls/hr IV Q6H [facility] Last Infusion: 02/27/25 06:14 Dose: Infused Documented By: MINAL Vancomycin HCl 1,000 mg/ (Sodium Chloride) 270 mls @ 270 mls/hr IV Q24H [facility] Last Infusion: 02/26/25 16:12 Dose: Infused Documented By: VICKY Insulin Glargine (Insulin Glargine,Hum.Rec.Anlog 100 Unit/Ml 10 Ml Vial) 12 unit SUBCUT DAILY@1700 [facility] Last Admin: 02/26/25 16:34 Dose: 12 unit Documented By: VICKY Insulin Human Lispro (Insulin Lispro 100 Unit/Ml 3 Ml Vial) 0 unit SUBCUT QIDACHS [facility]; Protocol Last Admin: 02/26/25 21:10 Dose: 2 unit Documented By: MARYJO Isosorbide Mononitrate (Isosorbide Mononitrate 30 Mg Tab.Er.24h) 30 mg PO DAILY [facility]; Protocol Last Admin: 02/26/25 09:16 Dose: 30 mg Documented By: CATRINA Magnesium Hydroxide (Milk Of Magnesia 30 Ml Oral.Susp) 30 ml PO DAILY PRN PRN Reason: Constipation Melatonin (Melatonin 3 Mg Tablet) 6 mg PO BEDTIME PRN PRN Reason: Insomnia Morphine Sulfate (Morphine Sulfate 4 Mg/Ml Cartridge) 3 mg IVPUSH Q4H PRN; Protocol PRN Reason: Pain, Severe (Pain Scale 7-10) Naloxone HCl (Naloxone Hcl 0.4 Mg/Ml Vial) 0.04 mg IVPUSH Q5M PRN PRN Reason: Excessive sedation or RR < 8 Ondansetron HCl (Ondansetron Hcl 4 Mg/2 Ml Vial) 4 mg IVPUSH Q8H PRN PRN Reason: Nausea and Vomiting Oxycodone HCl (Oxycodone Hcl Immed Release 5 Mg Tablet) 5 mg PO Q4H PRN PRN Reason: Pain, Moderate(Pain Scale 4-6) Last Admin: 02/27/25 05:41 Dose: 5 mg Documented By: MINAL Pharmacy Consult (Consult Rx Vancomycin Dosing) 1 each MISCELLANE DAILY PRN PRN Reason: Consult order Sodium Chloride (0.9 % Sodium Chloride Flush 3 Ml Syringe) 3 ml IVFLUSH QSHIFT [facility] Last Admin: 02/26/25 23:49 Dose: 3 ml Documented By: MINAL Sodium Polystyrene Sulfonate (Sodium Polystyrene Sulfon/Sorb 15 Gm/60 Ml Oral.Susp) 30 gm PO MOWEFR@0900 [facility] Vitamin D (Cholecalciferol (Vitamin D3) 25 Mcg Tablet) 50 mcg PO BEDTIME [facility] Last Admin: 02/26/25 20:05 Dose: 50 mcg Documented By: MARYJO <Sal Denis PA-C - Last Filed: 02/27/25 10:29> Labs CBC & Chem 7: 02/26/25 05:24 02/27/25 05:23 <Sal Denis PA-C - Last Filed: 02/27/25 10:29> Labs: Laboratory Results - last 24 hr 02/26/25 02/26/25 02/26/25 11:23 11:44 16:00 Hold Purple Top Estim Creat Clear Calc Estimated GFR POC Glucose 143 H 186 H Random Vancomycin 12.0 L 02/26/25 02/27/25 02/27/25 20:54 05:23 07:28 Hold Purple Top SEE NOTE Estim Creat Clear Calc 30.8 Estimated GFR 20 POC Glucose 164 H 111 Random Vancomycin <Sal Denis PA-C - Last Filed: 02/27/25 10:29> Microbiology Microbiology Results: Microbiology 02/24/25 11:36 Blood Culture - Preliminary Blood - Venous No growth after 48 hours. 02/24/25 11:36 Blood Culture - Preliminary Blood - Venous No growth after 48 hours. <Sal Denis PA-C - Last Filed: 02/27/25 10:29> Procedures Date of Service Date of Service: 02/27/25 <Sal Denis PA-C - Last Filed: 02/27/25 10:29> 02/27/25 <Yoni Valverde MD - Last Filed: 02/27/25 08:03> Progress Note: A&P Assessment and plan (1) Toe gangrene: Status: Acute <Sal Denis PA-C - Last Filed: 02/27/25 10:29> Assessment and Plan: Looks well Dressings changed by NAFISA Denis Okay to discharge home with wound care I will see him in the office in about 2-3 weeks were removal sutures Discharge instructions reinforced with the patient Seen and examined independently <Yoni Valverde MD - Last Filed: 02/27/25 08:03> (2) Status post amputation of toe of right foot: Status: Acute <Sal Denis PA-C - Last Filed: 02/27/25 10:29> Assessment and Plan: 54 year old male POD 3 s/p right 3rd toe amputation for gangrenous toe. Doing okay, some increased pain in the foot. Denies fevers, chills. He looks well. Hypertensive this morning. Amputation site appears to be healing well, some mild edema of the foot and ankle. No fevers, no cellulitic changes of the foot. Sutures in place. ID not recommending further antibiotic treatment after discharge, wants discharge he should follow up in the office in 1-2 weeks for suture removal. Care per medicine Daily dressing changes, gauze, Kerlix, Dayne. Elevation of foot <Sal Denis PA-C - Last Filed: 02/27/25 10:29> Time Spent With Patient Time: Total time managing care of this patient today ____ minutes. <Sal Denis PA-C - Last Filed: 02/27/25 10:29> Quality Stroke Does the patient have a stroke diagnosis?: No <Sal Denis PA-C - Last Filed: 02/27/25 10:29> VTE Prior VTE?: No <Sal Denis PA-C - Last Filed: 02/27/25 10:29> VTE Risk Level:: Medical - moderate - high <Sal Denis PA-C - Last Filed: 02/27/25 10:29> VTE Device Contraindication: N/A - Device Ordered <Sal Denis PA-C - Last Filed: 02/27/25 10:29> VTE Drug Contraindication: N/A - Med Ordered <Sal Denis PA-C - Last Filed: 02/27/25 10:29>
[2025-02-27 08:48] VITALS: BP 166/62
[2025-02-27] MEDS: 0.9 % Sodium Chloride Flush 3 ML SYRINGE IVFLUSH (08:52)
--- NOTE | 2025-02-27 08:58 | P.CDIM_ITS ---
PROVIDER RESPONSE TEXT: To clarify, the appropriate diagnosis supported by the clinical indicators: Amputation of right 3rd toe QUERY TEXT: PHYSICIAN'S DOCUMENTATION REQUEST Date of Query: 02/27/2025 08:36 AM EST Patient Name: River Luque Admit Date: 02/24/2025 Dear Yoni Valverde MD, A review of the medical record indicates additional documentation may be needed. Please review below and update the documentation accordingly. Clinical Indicators: patient admitted with gangrene right middle toe PMH: DM Operative Note 02/24/25 states : Procedure: Amputation of the 2nd toe right Based on the above, could you clarify the appropriate procedure that supports the above abnormalities and additional evaluation, monitoring, and/or treatment rendered: Amputation of right 3rd toe Amputation of right 2nd toe Amputation of both right 2nd and 3rd toe Other (explain) Clinically unable to determine (explain) Thank you, Viki Schmidt RN Use of terms such as suspected, likely, concern for, or probable (associated with a specific diagnosis that is being evaluated, monitored, or treated as if it exists) are acceptable and can be coded in the inpatient setting, when documented at the time of discharge. Please use your independent medical judgment in providing your response. THIS QUERY IS PART OF THE PERMANENT MEDICAL RECORD
--- NOTE | 2025-02-27 11:16 | MHC.CM.PN ---
pt dcd home self care
[2025-02-27 11:36] LABS: Glucose, Whole Blood 197 mg/dL (60-115)
[2025-02-27 12:57] VITALS: PULSE 66; RESP 18; O2SAT 97
== END 2025-02-27 12:58 | disposition home or self-care (01) | DRG 854 ==
LOC: HO.ED 12:37 → HO.EDOVER 12:58 → HO.S3 14:54
PROVIDERS: Physician Assistant Medical; Surgery; Admitting Provider Physician Assistant Medical; Emergency Provider Emergency Medicine; PCP Physician Assistant Medical; Visit Provider Student in an Organized Health Care Education/Training Program
PROC: 0Y6T0Z0 Detachment at Right 3rd Toe, Complete, Open Approach (ICD-10-PCS; principal; 2025-02-24 18:20)
DX: A41.9 Sepsis, unspecified organism (principal); E11.52 Type 2 diabetes mellitus with diabetic peripheral angiopathy with gangrene; M86.671 Other chronic osteomyelitis, right ankle and foot; I50.32 Chronic diastolic (congestive) heart failure; I13.0 Hypertensive heart and chronic kidney disease with heart failure and stage 1 through stage 4 chronic kidney disease, or unspecified chronic kidney disease; E11.69 Type 2 diabetes mellitus with other specified complication; N18.30 Chronic kidney disease, stage 3 unspecified; E11.22 Type 2 diabetes mellitus with diabetic chronic kidney disease; G47.33 Obstructive sleep apnea (adult) (pediatric); E11.621 Type 2 diabetes mellitus with foot ulcer; L97.519 Non-pressure chronic ulcer of other part of right foot with unspecified severity; D63.1 Anemia in chronic kidney disease; E66.01 Morbid (severe) obesity due to excess calories; Z68.36 Body mass index [BMI] 36.0-36.9, adult; Z71.3 Dietary counseling and surveillance; Z79.4 Long term (current) use of insulin; Z79.899 Other long term (current) drug therapy
CPT/HCPCS: 36415; 73630; 80048; 80053; 80202; 82565; 82947; 83605; 83735; 85025; 85027; 85652; 86140; 86850; 86900; 86901; 86923; 87040; 88305; 88311; 99285; J0131; J1644; J2003; J2543; J2704; J2795; J3373; J3374; P9016; Q5106

== ENCOUNTER → 2025-02-24 11:13 | Outpatient (BNV) | payer OTHER, SELFPAY | PROVIDERS: Emergency Provider Emergency Medicine; PCP Physician Assistant Medical; Visit Provider Radiology Diagnostic Radiology | DX: M79.89 Other specified soft tissue disorders (principal) | CPT/HCPCS: 73630 ==

== ENCOUNTER → 2025-02-24 12:53 | Outpatient (BNV) | payer OTHER, SELFPAY | PROVIDERS: Admitting Provider Physician Assistant Medical; Emergency Provider Emergency Medicine; PCP Physician Assistant Medical; Visit Provider Internal Medicine | DX: E11.9 Type 2 diabetes mellitus without complications (principal); Z79.4 Long term (current) use of insulin; M86.9 Osteomyelitis, unspecified | CPT/HCPCS: 99222 ==

== ENCOUNTER → 2025-02-24 12:53 | Outpatient (BNV) | payer OTHER, SELFPAY | PROVIDERS: Admitting Provider Physician Assistant Medical; Emergency Provider Emergency Medicine; PCP Physician Assistant Medical; Visit Provider Physician Assistant Medical | DX: I96 Gangrene, not elsewhere classified (principal) | CPT/HCPCS: 99232; 99239 ==

== ENCOUNTER → 2025-02-24 12:53 | Outpatient (BNV) | payer OTHER, SELFPAY | PROVIDERS: Admitting Provider Physician Assistant Medical; Emergency Provider Emergency Medicine; PCP Physician Assistant Medical; Visit Provider Surgery | DX: I96 Gangrene, not elsewhere classified (principal) | CPT/HCPCS: 28810; 99024; 99223 ==

== ENCOUNTER 2025-03-01 09:55 | Outpatient (AMB) | payer OTHER, SELFPAY ==
--- OUTSIDE RECORDS SUMMARY | 2024-01-25 04:30 | XMS_ITS ---
Author Organization [facility] Address [address] [place] [address] Care Team Providers Care Community Outreach Worker Name Role Phone Quique Tatum N.P. Primary Care Provider Higinio Mcmahon Unavailable [phone] Velia Siddiqui Unavailable Unavailable REASON FOR VISIT screening Problems Problem Type SNOMED Code ICD Code Onset Dates Problem Status W/U Status Risk Notes Problem Diverticular disease of colon (567828849) Diverticulosis of large intestine without perforation or abscess without bleeding (K57.30) Active confirmed Encounters Encounter Location Date Provider Diagnosis [facility] [place] Outpatient [address] [place] [phone] 01/25/2024 Higinio Zhang Colon cancer scree shanthi [...] * SOO FONSECA:[birth year] (54 yo M)Acc No.[id number]:01/25/2024 COLON WITH MAC Patient: JORGE DURANT Provider: Nicanor Zhang MD :1970 A ge:53 Y S ex:Male Date:01/25/2024 Address:[address] [place] [address] , [facility] Pcp:Quique Tatum N.P. Subjective: * Chief Complaints: [...] 0 01/25/2024 Generated for Nikkie kelley/Steven/eTransmitting on: 05/01/2024 11:21 AM EST
--- NOTE | 2025-03-01 09:57 | A.OFFPC_ITS ---
Vital Signs 3 03/01/25 10:01 Height 5 ft 8 in Weight 239 lb 4 oz BMI 36.4 BP 150/80 H Blood Pressure Location Rt brachial Position Sitting Respiration 14 Pulse 46 L Pulse Source Pulse Oximeter Temp 97.4 F Temp Source Oral Pulse Oximetry (%) 100 Oxygen Delivery Method Room Air Intake Visit Reasons: D/C on 02/27 from [facility] Intake Note: DC follow up from [facility] Crusher Operator Required: No Allergies No Known Allergies Allergy (Verified 03/01/25 09:58) Tobacco use date assessed: 03/01/25 Dental Screening Dental Screen Date: 03/01/25 Did you have a dental visit in the last 12 months?: Yes Did you have a dental problem in the last 6 months where you did not have access to dental care?: No Was dental information given to patient?: Patient has dentist HPI HPI Comments 2 History of Present Illness0 Details Here today for a Transitional Care Management Visit Discharge summary reviewed. DS: Summary Hospital Course Hospital Course: From H&P on the day of admission This is a 54-year-old male with a history of multiple medical issues including diabetes, CKD who presents to the ED for infection of right 3rd toe. Two days ago he noticed the tip of his foot was black, he scraped off the scab and underneath there was a foul smell and purulent discharge. [facility] got him in for an appointment today, he was seen in the office and they sent him to the emergency department for evaluation. He denies fever, but has had associated chills. In the emergency department he was noted to have leukocytosis of 13.5, x-ray imaging of the right foot showed erosive changes of the distal tuft of the distal phalanx of the 3rd toe concerning for osteomyelitis of the associated soft tissue swelling and air in the soft tissues. Lactic acid was within normal limits. Inflammatory markers including CRP and ESR were both significantly elevated. Renal function at baseline with creatinine 3.47. H/H was lower then previous at 11/14. Sepsis due to Right third toe infection/gangrene/probable acute osteomyelitis due to DM Initial imaging showed concern for osteomyelitis. He was started on IV antibiotics. He was seen by General surgery who felt his foot was gangrenous and required surgical amputation. He developed fever prior to surgery, but did not have any severe features with sepsis. His elevated creatinine is due to chronic kidney disease. He underwent amputation on 02/24 and has had an uneventful postoperative course. He has not had any recurrent fever. Given source of infection removed will not need longterm IV abx. Pt was seen and evaluated by Infectious Disease who did not feel any additional IV or oral antibiotics necessary as source of infection -- pt's toe -- has been physically removed. Outpatient follow up with surgery. Anemia of chronic disease in CKD s/p 1 unit RBC 02/24. H/H similar to baseline. patient asymptomatic. Will hold off on further transfusion. Pt seen and evaluated by Nephrology and received 28266 units of Procrit prior to discharge. Outpatient follow up with nephrology in office for monitoring of anemia and additional procrit as necessary Admission Date: 02/24/25 Discharge Date: 02/27/25 Hospital: [facility] Date of interactive contact with Nurse Navigator: as documented in chart Pending diagnostic tests/treatments: Pending consults: DME: PT/OT/FILENET ARCHITECT: Home Health Aide/SOLUTION PROFESSIONAL: Community Resources: Asst Living: Home Health: Hospice: Support group: Other: Referrals: Medications reconciled & updated. During todays TCM visit, the d/c summary was reviewed, along with the need for or follow-up on pending diagnostic tests and treatments, as necessary interaction with other health floor care specialist who will assume or reassume care of the beneficiary?s system-specific problems was done or is being worked on, education was provided to the beneficiary, family, guardian, and/or caregiver, referrals to establish or re-establish and arrange needed community resources we completed, assistance in scheduling required follow-up with community providers and services & finally updated medication list given to patient/caregiver History of Present Illness The patient is a 54-year-old male presenting for a hospital discharge follow-up. Sepsis and Gangrene of Right Foot: - The patient was hospitalized at [facility] from February 24 to February 27. - He was admitted with gangrene of his r ight third toe, with imaging suggesting osteomyelitis. - He was diagnosed with sepsis due to th e right third toe infection, a complication of his diabetes. - He underwent amputation of the right t hird toe on 02/24 and had an uneventful postoperative course. - Infectious disease consultation determ ined no additional antibiotics were needed upon discharge. - He was discharged with pain medication only and reports no pain currently. - He has a scheduled follow-up with [facility] surgery (Dr. Valverde) on March 09. Chronic Kidney Disease: - The patient has a history of CKD, and nephrology was consulted during his recent hospitalization. - He was prescribed Procrit prior to dis charge and was advised to follow up with a cemetery keeper. - The patient is currently awaiting an a ppointment with the kidney specialist. Anemia: - He was noted to have anemia in the set ting of CKD during hospitalization. - He received one unit of packed red blo od cells during his admission. Type 2 Diabetes Mellitus: - The patient's morning blood sugar was 136, tested via finger prick. - His prior survey director left the [facility], and he is scheduled to establish care with a new provider, Nida, who specializes in primary care and endocrinology. - His last HbA1c, taken on February 03, was 6.1%. Past Medical History - Type 2 Diabetes Mellitus - Chronic Kidney Disease - Anemia, secondary to CKD - Past sprained wrist - Hospitalization (02/24 to 02/27) for s epsis and gangrene of the right third toe - Amputation of the right third toe on - Blood transfusion (1 unit of PRBCs) [facility] recent hospitalization Review of Systems - Constitutional: Denies fever. - Cardiovascular: Denies chest pain. - Respiratory: Denies shortness of breat h. - Musculoskeletal: Denies pain at the love rgical site at the moment. Physical Exam General: Well developed, well nourished, in no acute distress. Appears stated age. Head: Normocephalic, atraumatic. Eyes: Pupils are equal, round and reactive to light and accommodation. Conjunctivae are clear. Lungs: Clear to auscultation bilaterally. No rales, rhonchi or wheeze noted. Good air flow in all schuler. Heart: Regular rate and rhythm. 2/6 murmur ,No click, rubs or gallops are noted. Pulses: Peripheral pulses are hard to appreciate bilat d/t edema. However tissue appears well profused bilat. Extremities: RLE amp site with intact sutures, well approximated. No odor. He has a new nonblanchable erythematous patch on the dorsum of his foot (see below) it is not warm to touch, it is not painful, there is no drainage. Right lower ext +1 edema, appears increased from photo 02/27/25 in chart. The patch was not present on this photo as well. Psych: Mood and affect appropriate. Results - Labs: HbA1c on 02/03/2023 was 6.1%. - Labs during hospitalization: Hemoglobi n was 7.1 g/dL and hematocrit was 22% on 02/26. - Labs during hospitalization: Creatinin e was 3.32 mg/dL with a GFR of 20 on 02/27. - Imaging during hospitalization: X-ray of the right foot showed erosive changes of the distal phalanx of the third toe concerning for osteomyelitis. Medical Decision Making The patient is a 54-year-old male seen for post-hospitalization follow-up after a right third toe amputation for gangrene and sepsis. While the surgical site is healing well clinically, the physical exam is notable for increased edema and a new pink, indented area on the right foot, which has developed since his hospital discharge. Given the recent surgery, these new findings are concerning for a deep vein thrombosis (DVT), which must be ruled out. Therefore, a stat venous Doppler ultrasound of the right lower extremity is warranted. I will also consult his surgeon, Dr. Valverde, via secure message with photos of the foot for his immediate input. Dr Valverde advised things looked good. His chronic conditions, including type 2 diabetes, stage 4 CKD, and anemia, require ongoing specialist management. His glycemic control appears good with a recent A1c of 6.1%. An urgent referral will be placed to nephrology to expedite that follow-up, and he will establish care with a new PCP/survey director in the coming weeks. Plan 1. Post-Operative Follow-Up For Right Th ird Toe Amputation - The patient's surgical site is healing well, but there is new area on the right foot arousing suspicion - A stat ultrasound of the right leg moon l be ordered to rule out a blood clot. - I have contacted the surgeon, Dr. Jus hernandez, via secure text with a photo of the foot to get his recommendations. 2. Chronic Kidney Disease, Stage 4 - The patient needs to establish follow- up care with a cemetery keeper post- hospitalization. - An urgent referral will be sent to the nephrology group to expedite scheduling. 3. Type 2 Diabetes Mellitus - The patient's glycemic control is good , with a recent A1c of 6.1%. - The patient needs to establish care wi th a new provider for diabetes management. - A follow-up appointment will be schedu led with Nida in 2-3 weeks for ongoing primary care and diabetes management. Patient Instructions - Before you leave today, go to the [facility] t desk and tell them I ordered a stat ultrasound of your right leg. They will schedule this for you. - I will contact you via the patient por everardo later with updates and recommendations - Please also schedule a follow-up appoi ntment with Nida in 2-3 weeks at the [facility]. - You do not need any blood tests today; Consent Patient was informed and verbally consented to the use of an ambient scribe for clinic note documentation during this visit. Total time spent caring for the patient today was 60 minutes. This includes time spent before the visit reviewing the chart, time spent during the visit, and time spent after the visit on documentation, reviewing laboratory results, diagnostic imaging, medications, performing a medically necessary evaluation, counseling on diagnoses, care coordination, ordering appropriate tests, ordering appropriate medications, review of tests performed by other providers, reporting test results with the patient, communication with other healthcare providers. [facility] Medical History Toe gangrene Hypertension Type 2 diabetes CKD stage 3 due to type [address] scan, chest Acute on chronic anemia Hyponatremia Severe obstructive sleep apnea Anemia Diabetes Osteomyelitis of third toe of left foot CKD (chronic kidney disease) stage 3, GFR 30-59 ml/min Sleep apnea Chronic heart failure with preserved ejection fraction (HFpEF) Elevated cholesterol Iron deficiency anemia Chronic renal insufficiency Diabetic nephropathy Acute heart failure with preserved ejection fraction (HFpEF) Necrotizing subcutaneous infection Surgical History History of pyloromyotomy Status post incision and drainage [place] teeth removed Family History Mother Diabetes Maternal Uncle Diabetes Sister Multiple sclerosis Father Liver failure Kidney failure Social History Household Members: Significant Other Housing: House Are you a primary rn complex care to a significant other at home: No Do you presently have visiting nurse or other home services: No Alcohol intake: current Alcohol intake frequency: holidays/special occasions only Alcohol type: beer Patient Tobacco Use Status: Never used Tobacco Tobacco use type: Cigarette Years Smoked: 4 e-Cigarette/Vaping Use: Never Used Second Hand Smoke Exposure: No Substance Use Type: Marijuana Advance Directives Date on File: 05/07/23 service: No Current occupational status: employed Current occupation: [employer] Current occupational exposures/hazards: No Cognitive needs: No Hearing needs: No Vision needs: No Questionnaire PHQ-9 Over the last 2 weeks, how often have you been bothered by any of the following problems? 1. Little interest or pleasure in doing things: not at all 2. Feeling down, depressed, or hopeless: not at all 3. Trouble falling or staying asleep, or sleeping too much: not at all 4. Feeling tired or having little energy: not at all 5. Poor appetite or overeating: not at all 6. Feeling bad about yourself - or that you are a failure or have let yourself or your family down: not at all 7. Trouble concentrating on things, such as reading the newspaper or watching television: not at all 8. Moving or speaking so slowly that other people could have noticed. Or the opposite - being so fidgety or restless that you have been moving around a lot more than usual: not at all 9. Thoughts that you would be better off or of hurting yourself in some way: not at all Total score: 0 Depression Screening Interpretation: Negative Depression Screening Done: Yes 40110 - PHQ-9 Billing: Yes Source: Developed by Drs. Higinio Rodriguez, Olivia Rayo, Edilberto Freeman and colleagues, with an educational smitha from [employer]. Thrive Questionnaire Date Thrive assessed: 03/01/25 I am a: Patient What is your living situation today?: I have a steady place to live Within the past 12 months, did the food you bought not last and you didn't have the money to get more?: Sometimes True Within the past 12 months, did you worry whether your food would run out before you got money to buy more?: Sometimes True Do you have trouble paying for medicines?: Yes Do you have trouble getting transportation to medical appointments?: No Do you have trouble paying your heating and electricity bill?: Yes Do you have trouble taking care of your child, family member or friend?: No Do you have trouble with day-to-day activities such as bathing, preparing meals, shopping, managing finances, etc.?: No Are you currently unemployed and looking for a job?: No Are you interested in more education?: I choose not to answer this question Currently or been in a relationship where the following occur: No concerns reported THRIVE Score: 3 UTE-7 AMB Questionnaire UTE-7 Date UTE - 7 assessed: 03/01/25 Feeling nervous, anxious, or on edge: 0 = Not at all Not being able to stop or control worryin = Not at all Worrying too much about different things: 0 = Not at all Trouble relaxin = Not at all Being so restless that it is hard to sit still: 0 = Not at all Becoming easily annoyed or irritable: 0 = Not at all Feeling afraid as if something awful might happen: 0 = Not at all Total UTE-7 score (0-4 normal; 5-9 mild; 10-14 moderate; 15-21 severe): 0 Source: Developed by Drs. Higinio Rodriguez, Olivia Rayo, Edilberto Freeman and colleagues, with an educational smitha from [employer]. UTE-7 Assessment Billing UTE-7 Assessment Tool: UTE-7 Assessment 09707 Physical exam (Primary Care) Vital Signs: Last Vital Signs Temp 97.4 F 03/01/25 10:01 Pulse 46 L 03/01/25 10:01 Resp 14 03/01/25 10:01 BP 150/80 H 03/01/25 10:01 Pulse Ox 100 03/01/25 10:01 Oxygen Delivery Method Room Air 03/01/25 10:01 BMI result Body Mass Index 36.4 Tobacco/Smoking Status: Tobacco use Status Tobacco use date assessed 03/01/25 03/01/25 10:00 Patient Tobacco Use Status Never used Tobacco 03/01/25 10:00 Tobacco use type Cigarette 03/01/25 10:00 e-Cigarette/Vaping Use Never Used 03/01/25 10:00 PHQ-9: PHQ-9 Score PHQ-9: Total score 0 03/01/25 10:12 Depression Screening Interpretation: Negative Thrive Assessment: Date of Thrive Assessment Date Thrive assessed 03/01/25 03/01/25 10:00 Currently or been in a relationship where the following occur: No concerns reported Coding Level of Care Code TCM High MDM <= 7 Days Complex EM visit Add On G2211 Diagnoses Hospital discharge follow-up Z09 CKD stage 3 due to type 2 diabetes mellitus E11.22; N18.30 Anemia in stage 3a chronic kidney disease N18.31; D63.1 Chronic kidney disease stage: stage 3 (moderate) Chronic kidney disease stage 3 subtype: stage 3a (GFR 45-59) Swelling of right lower extremity M79.89 Status post amputation of toe of right foot Z89.421 Additional Codes UTE-7 Assessment Billing - UTE-7 Assessment Tool: UTE-7 Assessment 07754 ([id number]) PHQ-9 - 06027 - PHQ-9 Billing: Yes ([id number]) Assessment & Plan Assessment & Plan (1) Hospital discharge follow-up: Code(s): Z09 - Encounter for follow-up examination after completed treatment for conditions other than malignant neoplasm Category: Medical (2) CKD stage 3 due to type 2 diabetes mellitus: Code(s): E11.22 - Type 2 diabetes mellitus with diabetic chronic kidney disease; N18.30 - Chronic kidney disease, stage 3 unspecified Category: Medical (3) Anemia in chronic kidney disease (CKD): Code(s): N18.9 - Chronic kidney disease, unspecified; D63.1 - Anemia in chronic kidney disease Category: Medical Qualifiers: Chronic kidney disease stage: stage 3 (moderate) Chronic kidney disease stage 3 subtype: stage 3a (GFR 45-59) Qualified Code(s): N18.31 - Chronic kidney disease, stage 3a; D63.1 - Anemia in chronic kidney disease (4) Swelling of right lower extremity: Code(s): M79.89 - Other specified soft tissue disorders Category: Medical (5) Status post amputation of toe of right foot: Onset Date: ~01/2025 Code(s): Z89.421 - Acquired absence of other right toe(s) Category: Surgical Plan .. Orders: Orders 2 US venous duplex LE RT Today M79.89 - Other specified soft tissue disorders Referrals 2 Nephrology Referral D63.1 - Anemia in chronic kidney disease, E11.22 - Type 2 diabetes mellitus with diabetic chronic kidney disease, N18.30 - Chronic kidney disease, stage 3 unspecified, N18.31 - Chronic kidney disease, stage 3a
[2025-03-01 10:01] VITALS: BP 150/80; PULSE 46; RESP 14; TEMP 36.3; O2SAT 100; BMI 36.4
--- OUTSIDE RECORDS SUMMARY | 2025-03-01 11:21 | XMS_ITS | Patient Health Record ---
Author Organization [facility] Address [address] [place] [id number] Care Team Providers Care Crystal Grinder Name Role Phone Quique Tatum N.P. Primary Care Provider Higinio Mcmahon Unavailable [phone] Velia Siddiqui Unavailable Unavailable Allergies No Known [...] Calcium 40 MG Oral; Duration: 90 Active [place] 3 Active Basaglar KwikPen 100 UNIT/ML Subcutaneous; [...] Status Risk Notes Problem Colon cancer screening (239861716) Colon cancer screening (Z12.11) Active confirmed Problem Pre-procedure evaluation check (528610386) Encounter for other preprocedural examination (Z01.818) Active confirmed Problem Diverticular disease of colon (157454081) Diverticulosis of large intestine without perforation or abscess without bleeding (K57.30) Active confirmed Plan Of Treatment Pending Test Test Name Order Date Pathology 01/25/2024 Future Test Test Name Order Date COLONOSCOPY 10/01/2023 Insurance Providers Payer Name Payer Address Payer Phone Subscriber Number Group Number Insured Name Patient Relationship to Insured Coverage Start Date Coverage End Date [employer] [address] [place] [address] [phone] [id number] JORGE FONSECA Self - patient is the insured Medical (General) History Medical History History ICD Code Sleep apnea - CPAP machine 09/2023 DM Hypertension CKD stage 3 Anemia Hypercholesterolemia Denies DC,CVA,Lung disease Surgical History Surgery Date(Month/Year) [place] teeth Perirectal abscess -Dr. Valverde--[facility]os [facility] for about a week 02/2022
== END 2025-03-01 10:44 | disposition home or self-care (01) ==
LOC: HO.HMCFM 09:56
PROVIDERS: PCP Physician Assistant Medical; Visit Provider Nurse Practitioner Family
DX: E11.22 Type 2 diabetes mellitus with diabetic chronic kidney disease (principal); N18.4 Chronic kidney disease, stage 4 (severe); D63.1 Anemia in chronic kidney disease; L53.9 Erythematous condition, unspecified; R60.0 Localized edema; Z89.421 Acquired absence of other right toe(s); Z09 Encounter for follow-up examination after completed treatment for conditions other than malignant neoplasm

== ENCOUNTER → 2025-03-01 09:55 | Outpatient (BNVA) | payer OTHER, SELFPAY | PROVIDERS: PCP Physician Assistant Medical; Visit Provider Nurse Practitioner Family | DX: E11.22 Type 2 diabetes mellitus with diabetic chronic kidney disease (principal); D63.1 Anemia in chronic kidney disease; N18.4 Chronic kidney disease, stage 4 (severe); M79.89 Other specified soft tissue disorders; Z09 Encounter for follow-up examination after completed treatment for conditions other than malignant neoplasm; Z89.421 Acquired absence of other right toe(s) | CPT/HCPCS: 96127 ==

== ENCOUNTER 2025-03-01 11:25 | Outpatient (REF) | payer OTHER, SELFPAY ==
--- NOTE | ~2025-03-01 | US_ITS ---
EXAMINATION: US LOWER EXTREMITY VEINS LIMITED RIGHT HISTORY: M79.89 - swelling COMPARISON: There are no prior studies available for comparison. TECHNIQUE: Duplex and color Doppler sonographic examination of the deep venous system of the right lower extremity was performed. FINDINGS: The common femoral, superficial femoral, and popliteal veins are patent demonstrating normal compressibility, spontaneous flow, and augmentation. There is a normal color and spectral Doppler waveform appearance of the visualized deep venous system above the knee. The posterior tibial and peroneal veins are patent. US/US venous duplex LE RT IMPRESSION: No evidence of acute DVT in the right lower extremity. Electronically signed by: Higinio Cortes MD 03/01/2025 12:07 PM ANJEL
== END 2025-03-01 11:26 | disposition home or self-care (01) ==
LOC: HO.US 11:25
PROVIDERS: Visit Provider Nurse Practitioner Family
DX: R60.0 Localized edema (principal)
CPT/HCPCS: 93971

== ENCOUNTER → 2025-03-01 11:30 | Outpatient (BNV) | payer OTHER, SELFPAY | PROVIDERS: Visit Provider Radiology Diagnostic Radiology | DX: M79.89 Other specified soft tissue disorders (principal) | CPT/HCPCS: 93971 ==

== ENCOUNTER 2025-03-08 13:54 | Outpatient (AMB) | payer OTHER, SELFPAY ==
--- OUTSIDE RECORDS SUMMARY | 2024-01-25 04:30 | XMS_ITS ---
Author Organization [facility] Address [address] [place] [address] Care Team Providers Care Track Liner Operator Name Role Phone Quique Tatum N.P. Primary Care Provider Higinio Mcmahon Unavailable [phone] Velia Siddiqui Unavailable Unavailable REASON FOR VISIT screening Problems Problem Type SNOMED Code ICD Code Onset Dates Problem Status W/U Status Risk Notes Problem Diverticular disease of colon (017267058) Diverticulosis of large intestine without perforation or abscess without bleeding (K57.30) Active confirmed Encounters Encounter Location Date Provider Diagnosis [facility] [place] Outpatient [address] [place], [place] [phone] 01/25/2024 Higinio Zhang Colon cancer scree shanthi [...] * SOO FONSECA:[birth year] (54 yo M)Acc No.[id number]:01/25/2024 COLON WITH MAC Patient: JORGE DURANT Provider: Nicanor Zhang MD :1970 A ge:53 Y S ex:Male Date:01/25/2024 Address:[address] [place] [address] , [facility] Pcp:Quique Tatum N.P. Subjective: * Chief Complaints: [...] MD Date: 0 01/25/2024 Generated for Nikkie kelley/Steven/Nickransmitting on: 05/08/2024 05:05 PM EST
--- NOTE | 2025-03-08 13:56 | HO.NEPHOV ---
Vital Signs 03/08/25 13:58 Height 5 ft 8 in Weight 233 lb 2 oz BMI 35.4 BP 152/70 H Blood Pressure Location Lt brachial Position Sitting Pulse 58 Pulse Source Pulse Oximeter Pulse Oximetry (%) 99 Oxygen Delivery Method Room Air Intake Visit Reasons: 2 wks f/u r/s 02/24 Nutrition Tech Required: No Accompanied by: Significant Other Allergies No Known Allergies Allergy (Verified 03/08/25 13:58) HPI Comments Details: River was seen in follow up of his advanced CKD . He is diabetic and hypertensive with proteinuria. He underwent toe amputation. His ARB and Jardiance had on hold. He denies any active chest pain, shortness of breath, paroxysmal nocturnal dyspnea, orthopnea, joint swellings, epistaxis, sinusitis, skin rashes, history of renal artery stenosis, history of carotid stenosis, large, vomiting, diarrhea, hematuria. His serum creatinine has plateaued . His renal function is stable. He had PRBC during hospitalization and received Procrit prior to hospital D/C. 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 CKD (chronic kidney disease) stage 3, GFR 30-59 ml/min Sleep apnea Chronic heart failure with preserved ejection fraction (HFpEF) Elevated cholesterol Iron deficiency anemia Chronic renal insufficiency Diabetic nephropathy Acute heart failure with preserved ejection fraction (HFpEF) Necrotizing subcutaneous infection Surgical History Amputated toe of right foot (~02/24/25) History of pyloromyotomy Status post incision and drainage [place] teeth removed Family History Mother Diabetes Maternal Uncle Diabetes Sister Multiple sclerosis Father Liver failure Kidney failure Social History Household Members: Significant Other Both parents involved: No Caregiver staying overnight: No Housing: House Are you a primary grounds caretaker to a significant other at home: No Do you presently have visiting nurse or other home services: No 75 years or older and lives alone: No Alcohol intake: current Alcohol intake frequency: holidays/special occasions only Alcohol type: beer Patient Tobacco Use Status: Never used Tobacco Tobacco use type: Cigarette Years Smoked: 4 e-Cigarette/Vaping Use: Never Used Second Hand Smoke Exposure: No Substance Use Type: Marijuana Advance Directives Date on File: 05/07/23 service: No Current occupational status: employed Current occupation: [employer] Current occupational exposures/hazards: No Cognitive needs: No Hearing needs: No Vision needs: No Review of Systems Const All systems reviewed & are unremarkable except as noted in HPI and below Physical Exam Vital Signs: Last Vital Signs Pulse 58 03/08/25 13:58 BP 152/70 H 03/08/25 13:58 Pulse Ox 99 03/08/25 13:58 Oxygen Delivery Method Room Air 03/08/25 13:58 BMI result Body Mass Index 35.4 Const General: comfortable and no acute distress Orientation/consciousness: patient oriented x3 HEENT Head: Yes normocephalic Mouth: Normal oral and palatal mucosa present Eyes EOM: EOMs intact bilaterally Neck Neck: Yes supple Resp Auscultation: clear to auscultation bilaterally Cardio Jugular venous distension: no JVD Rate: regular rate GI Palpation (GI): Soft to palpation Auscultation: normal bowel sounds General: Yes no CVA tenderness Back/Spine/Pelvis Back: no CVA tenderness Skin General skin exam: no rashes or lesions noted Neuro General: patient oriented x3 and moves all extremities Extrem General: Yes no pedal edema Results Reviewed Nephrology Results: Hgb, (14.0-18.0) 7.1 g/dl L 02/26/25 WBC, (4.8-10.8) 8.9 X10*3/uL 02/26/25 Plt Count, (160-400) 193 X10*3/uL 02/26/25 Sodium, (135-145) 138 mmol/L 02/25/25 Potassium, (3.3-5.1) 4.2 mmol/L 02/25/25 Chloride, (96-108) 104 mmol/L 02/25/25 Carbon Dioxide, (22-29) 26 mmol/L 02/25/25 BUN, (9-16) 59 mg/dL H 02/25/25 Creatinine, (0.5-1.4) 3.32 mg/dL H 02/27/25 Calcium, (8.4-10.2) 8.3 mg/dL L Δ 02/25/25 Renal US 06/04/23 Assessment & Plan Assessment & Plan (1) Hypertension: Code(s): I10 - Essential (primary) hypertension Category: Medical Qualifiers: Hypertension type: primary hypertension Qualified Code(s): I10 - Essential (primary) hypertension (2) Diabetic nephropathy: Code(s): E11.21 - Type 2 diabetes mellitus with diabetic nephropathy Category: Medical Qualifiers: Diabetes mellitus type: type 2 Qualified Code(s): E11.21 - Type 2 diabetes mellitus with diabetic nephropathy (3) CKD stage 4 due to type 2 diabetes mellitus: Code(s): E11.22 - Type 2 diabetes mellitus with diabetic chronic kidney disease; N18.4 - Chronic kidney disease, stage 4 (severe) Category: Medical (4) Anemia in chronic kidney disease (CKD): Code(s): N18.9 - Chronic kidney disease, unspecified; D63.1 - Anemia in chronic kidney disease Category: Medical Qualifiers: Chronic kidney disease stage: stage 3 (moderate) Chronic kidney disease stage 3 subtype: stage 3a (GFR 45-59) Qualified Code(s): N18.31 - Chronic kidney disease, stage 3a; D63.1 - Anemia in chronic kidney disease Plan River has 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 He has obesity. He has underlying diabetic nephropathy. He has H/O decompensated diastolic heart failure. His CKD 4 is stable . His ARB and Jardiance has been put on hold. His urine output is good. He does not need renal replacement now. He was counseled to maintain good blood pressure and good blood sugar control. His anemia is due to advanced CKD. He received one unit of PRBC and 32510 U procrit during recent hospitalization. I am planning to give him Procrit through my office. All these have been discussed in detail. Further management is pending evolving data. All questions answered. Follow-up appointment given Orders: Orders Ferritin 3 Weeks E11.21 - Type 2 diabetes mellitus with diabetic nephropathy, E11.22 - Type 2 diabetes mellitus with diabetic chronic kidney disease, I10 - Essential (primary) hypertension, N18.30 - Chronic kidney disease, stage 3 unspecified IRON PROFILE 3 Weeks E11.21 - Type 2 diabetes mellitus with diabetic nephropathy, E11.22 - Type 2 diabetes mellitus with diabetic chronic kidney disease, I10 - Essential (primary) hypertension, N18.30 - Chronic kidney disease, stage 3 unspecified Electrolytes 3 Weeks E11.21 - Type 2 diabetes mellitus with diabetic nephropathy, E11.22 - Type 2 diabetes mellitus with diabetic chronic kidney disease, I10 - Essential (primary) hypertension, N18.30 - Chronic kidney disease, stage 3 unspecified Complete Blood Count Auto Diff 3 Weeks E11.21 - Type 2 diabetes mellitus with diabetic nephropathy, E11.22 - Type 2 diabetes mellitus with diabetic chronic kidney disease, I10 - Essential (primary) hypertension, N18.30 - Chronic kidney disease, stage 3 unspecified Blood Urea Nitrogen 3 Weeks E11.21 - Type 2 diabetes mellitus with diabetic nephropathy, E11.22 - Type 2 diabetes mellitus with diabetic chronic kidney disease, I10 - Essential (primary) hypertension, N18.30 - Chronic kidney disease, stage 3 unspecified Creatinine 3 Weeks E11. - Type 2 diabetes mellitus with diabetic nephropathy, E11.22 - Type 2 diabetes mellitus with diabetic chronic kidney disease, I10 - Essential (primary) hypertension, N18.30 - Chronic kidney disease, stage 3 unspecified Coding Level of Care Code Est Pt Level 4 (10315) Diagnoses Primary hypertension I10 Hypertension type: primary hypertension Diabetic nephropathy associated with type 2 diabetes mellitus . Diabetes mellitus type: type 2 CKD stage 4 due to type 2 diabetes mellitus E11.; N18.4 Anemia in stage 3a chronic kidney disease N18.31; D63.1 Chronic kidney disease stage: stage 3 (moderate) Chronic kidney disease stage 3 subtype: stage 3a (GFR 45-59)
[2025-03-08 13:58] VITALS: BP 152/70; PULSE 58; O2SAT 99; BMI 35.4
--- OUTSIDE RECORDS SUMMARY | 2025-03-08 17:06 | XMS_ITS | Patient Health Record ---
Author Organization [facility] Address [address] [place] [id number] Care Team Providers Care Gold Charmer Name Role Phone Quique Tatum N.P. Primary Care Provider Higinio Mcmahon Unavailable [phone] Velia Siddiqui Unavailable Unavailable Allergies No Known [...] Calcium 40 MG Oral; Duration: 90 Active [place] 3 Active Basaglar KwikPen 100 UNIT/ML Subcutaneous; [...] Status Risk Notes Problem Colon cancer screening (466752553) Colon cancer screening (Z12.11) Active confirmed Problem Pre-procedure evaluation check (561975338) Encounter for other preprocedural examination (Z01.818) Active confirmed Problem Diverticular disease of colon (425334518) Diverticulosis of large intestine without perforation or abscess without bleeding (K57.30) Active confirmed Plan Of Treatment Pending Test Test Name Order Date Pathology 01/25/2024 Future Test Test Name Order Date COLONOSCOPY 10/01/2023 Insurance Providers Payer Name Payer Address Payer Phone Subscriber Number Group Number Insured Name Patient Relationship to Insured Coverage Start Date Coverage End Date ALEX [address] [place] [address] [id number] JORGE FONSECA Self - patient is the insured Medical (General) History Medical History History ICD Code Sleep apnea - CPAP machine 09/2023 DM Hypertension CKD stage 3 Anemia Hypercholesterolemia Denies SD,CVA,Lung disease Surgical History Surgery Date(Month/Year) [place] teeth Perirectal abscess -Dr. Valverde--[facility]os [facility] about a [facility] 02/2022
== END 2025-03-08 14:19 | disposition home or self-care (01) ==
LOC: HO.HKA 13:55
PROVIDERS: Visit Provider Internal Medicine Nephrology
DX: I12.9 Hypertensive chronic kidney disease with stage 1 through stage 4 chronic kidney disease, or unspecified chronic kidney disease (principal); E11.21 Type 2 diabetes mellitus with diabetic nephropathy; E11.22 Type 2 diabetes mellitus with diabetic chronic kidney disease; N18.4 Chronic kidney disease, stage 4 (severe); N18.31 Chronic kidney disease, stage 3a; D63.1 Anemia in chronic kidney disease
CPT/HCPCS: 99214

== ENCOUNTER 2025-03-09 13:37 | Outpatient (AMB) | payer OTHER, SELFPAY ==
--- OUTSIDE RECORDS SUMMARY | 2024-01-25 04:30 | XMS_ITS ---
Author Organization [facility] Address [address] [place] [phone] Care Team Providers Care Intrusion Analyst Name Role Phone Quique Tatum N.P. Primary Care Provider Higinio Mcmahon Unavailable [phone] Velia Siddiqui Unavailable Unavailable REASON FOR VISIT screening Problems Problem Type SNOMED Code ICD Code Onset Dates Problem Status W/U Status Risk Notes Problem Diverticular disease of colon (821460759) Diverticulosis of large intestine without perforation or abscess without bleeding (K57.30) Active confirmed Encounters Encounter Location Date Provider Diagnosis [facility] [place] [address], [place] [phone] 01/25/2024 Higinio Zhang Colon cancer scree shanthi [...] * SOO FONSECA:[birth year] (54 yo M)Acc No.[id number]:01/25/2024 COLON WITH MAC Patient: JORGE DURANT Provider: Nicanor Zhang MD :1970 A ge:53 Y S ex:Male Date:01/25/2024 Address:[address] [place] [address] , [facility] Pcp:Quique Tatum N.P. Subjective: * Chief Complaints: * 1 . Screening. * Medical History: Objective: * Vitals: Assessment: * Assessment: 1. C olon cancer screening - Z12.11 (Primary) 2 . C olon polyp - K63.5 3 . D iverticulosis of large intestine without perforation or abscess without bleeding - K57.30 4 . O ther hemorrhoids - K64.8 Plan: * Treatment: * Procedure Codes: 4 5385 LESION REMOVAL COLONOSCOPY, Modifiers: 33 * * The named appointment provid er may or may not be the originator of this progress note, and it is not deemed complete until electronically signed by the appointment provider. Sign off status: Pending * Provider: Nicanor Zhang MD Date: 0 01/25/2024 Generated for Nikkie kelley/Steven/eTransmitting on: 05/09/2024 04:56 PM EST
--- NOTE | 2025-03-09 13:58 | A.OFFVIS_ITS ---
Vital Signs 03/09/25 14:05 Height 5 ft 8 in Weight 234 lb BMI 35.6 BP 128/60 Blood Pressure Location Rt brachial Position Sitting Pulse 57 Intake Visit Reasons: gangrene toe amputation Intake Note: Patient presents for post-op assessment status post Amputation of the 3rd toe right. Pt c/o; Child Welfare Worker Required: No Accompanied by: Other Relationship Allergies No Known Allergies Allergy (Verified 03/09/25 14:06) HPI HPI gangrene toe amputation: Details: He underwent amputation with the 3rd toe on the right for gangrene last February 24, 2025. He tolerated the procedure well. He currently denies significant complaints. 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 CKD (chronic kidney disease) stage 3, GFR 30-59 ml/min Sleep apnea Chronic heart failure with preserved ejection fraction (HFpEF) Elevated cholesterol Iron deficiency anemia Chronic renal insufficiency Diabetic nephropathy Acute heart failure with preserved ejection fraction (HFpEF) Necrotizing subcutaneous infection Surgical History Amputated toe of right foot (~02/24/25) History of pyloromyotomy Status post incision and drainage [place] teeth removed Family History Mother Diabetes Maternal Uncle Diabetes Sister Multiple sclerosis Father Liver failure Kidney failure Social History Household Members: Significant Other Both parents involved: No Caregiver staying overnight: No Housing: House Are you a primary behavioral health care coordinator to a significant other at home: No Do you presently have visiting nurse or other home services: No 75 years or older and lives alone: No Alcohol intake: current Alcohol intake frequency: holidays/special occasions only Alcohol type: beer Patient Tobacco Use Status: Never used Tobacco Tobacco use type: Cigarette Years Smoked: 4 e-Cigarette/Vaping Use: Never Used Second Hand Smoke Exposure: No Substance Use Type: Marijuana Advance Directives Date on File: 05/07/23 service: No Current occupational status: employed Current occupation: [employer] Current occupational exposures/hazards: No Cognitive needs: No Hearing needs: No Vision needs: No Review of Systems Const Denies chills and Denies fever(s) Physical Exam Vital Signs: Last Vital Signs Pulse 57 03/09/25 14:05 BP 128/60 03/09/25 14:05 BMI result Body Mass Index 35.6 Const General: comfortable and no acute distress Extrem Other: Amputation site is well healed, sutures in place, no evidence of infection Assessment & Plan Assessment & Plan (1) Toe gangrene: Code(s): I96 - Gangrene, not elsewhere classified Category: Medical Plan: Status post toe amputation, right, for gangrene. The incision is healing well. I removed all his sutures. I wrapped the foot with dry dressings and a Kerlix roll I will see him again for another wound check in about 3-4 weeks. I advised him on the importance of blood sugar control. Coding Level of Care Code Global (36135) Diagnoses Toe gangrene I96
[2025-03-09 14:05] VITALS: BP 128/60; PULSE 57; BMI 35.6
--- OUTSIDE RECORDS SUMMARY | 2025-03-09 16:56 | XMS_ITS | Patient Health Record ---
Author Organization [facility] Address [address] [place] [id number] Care Team Providers Care Home Care Associate Name Role Phone Quique Tatum N.P. Primary Care Provider Higinio Mcmahon Unavailable [phone] Velia Siddiqui Unavailable Unavailable Allergies No Known [...] Calcium 40 MG Oral; Duration: 90 Active [place] 3 Active Basaglar KwikPen 100 UNIT/ML Subcutaneous; [...] Status Risk Notes Problem Colon cancer screening (343737280) Colon cancer screening (Z12.11) Active confirmed Problem Pre-procedure evaluation check (415998309) Encounter for other preprocedural examination (Z01.818) Active confirmed Problem Diverticular disease of colon (422135003) Diverticulosis of large intestine without perforation or abscess without bleeding (K57.30) Active confirmed Plan Of Treatment Pending Test Test Name Order Date Pathology 01/25/2024 Future Test Test Name Order Date COLONOSCOPY 10/01/2023 Insurance Providers Payer Name Payer Address Payer Phone Subscriber Number Group Number Insured Name Patient Relationship to Insured Coverage Start Date Coverage End Date ALEX [address] [place] [address] [phone] [id number] JORGE FONSEAC Self - patient is the insured Medical (General) History Medical History History ICD Code Sleep apnea - CPAP machine 09/2023 DM Hypertension CKD stage 3 Anemia Hypercholesterolemia Denies ID,CVA,Lung disease Surgical History Surgery Date(Month/Year) [place] teeth Perirectal abscess -Dr. Valverde--in hos pital for about a week 02/2022
== END 2025-03-09 14:19 | disposition home or self-care (01) ==
LOC: HO.HGS 13:37
PROVIDERS: PCP Physician Assistant Medical; Visit Provider Surgery
DX: I96 Gangrene, not elsewhere classified (principal)
CPT/HCPCS: 99024

== ENCOUNTER 2025-03-13 13:54 | Outpatient (AMB) | payer OTHER, SELFPAY ==
--- NOTE | 2025-03-13 13:56 | A.OFFPC_ITS ---
Vital Signs 3 03/13/25 13:59 Height 5 ft 8 in Weight 242 lb 4 oz BMI 36.8 BP 159/70 H Blood Pressure Location Lt brachial Position Sitting Respiration 14 Pulse 69 Pulse Source Pulse Oximeter Temp 97.4 F Temp Source Oral Pulse Oximetry (%) 99 Oxygen Delivery Method Room Air Intake Visit Reasons: re-eval of R foot Intake Note: Follow up on Right foot. Dural Mechanic Required: No Allergies No Known Allergies Allergy (Verified 03/13/25 13:57) Medication List - Last Reconciled 03/13/25 by Daisy Mark, BUSINESS SUPPORT ASSOCIATE- acetaminophen 1,000 mg PO BID PRN atorvastatin (Lipitor) 40 mg PO BEDTIME 90 days blood sugar diagnostic (FreeStyle Lite Strips) Test four times a day or as directed. blood-glucose meter (FreeStyle Lite Meter kit) As Directed carvedilol 25 mg See Protocol PO BID cholecalciferol (vitamin D3) 50 mcg PO BEDTIME clonidine HCl 0.2 mg PO TID 90 days comp.stocking,knee,long,medium As directed cyclobenzaprine 10 mg PO TID PRN fenofibrate 54 mg PO DAILY fluticasone propionate 50 mcg/actuation 2 sprays intranasal BID PRN furosemide 40 mg PO BID hydralazine 50 mg See Protocol PO TID insulin glargine (Basaglar KwikPen U-100 Insulin) 12 units (0.12 mL) subcut DAILY@1700 insulin lispro (Humalog KwikPen (U-100) Insulin) See Protocol sliding scale doses subcut QIDACHS isosorbide mononitrate ER 30 mg See Protocol PO DAILY lancets (FreeStyle Lancets) TEST FOUR TIMES A DAY OR DIRECTED. multivitamin 1 tab PO DAILY omega-3 fatty acids-fish oil 684-1,200 mg 1 cap PO DAILY oxycodone 5 mg PO TID PRN pen needle, diabetic USE FOUR TIMES A DAY OR DIRECTED. sodium polystyrene sulfonate 30 grams PO MOWEFR@0900 zinc acetate 25 mg PO DAILY Tobacco use date assessed: 03/13/25 Dental Screening Dental Screen Date: 03/13/25 Did you have a dental visit in the last 12 months?: Yes Did you have a dental problem in the last 6 months where you did not have access to dental care?: No Was dental information given to patient?: Patient has dentist HPI HPI Comments 2 History of Present Illness0 Details History of Present Illness The patient is a 54-year-old male presenting for a close interim follow-up for an evaluation of his foot status post amputation of 3rd toe on R foot At the last OV, an US to r/o DVT of RLe was done. Negative He was given 5 days of doxy for a new nonblanchable area on the dorsum of his right foot, completed this 03/06. He reports no new areas of concern. Denies fever, chills. Taking all meds as directed. Saw renal for fu, note reviewed. Procrit to be admin. Will be seeing heme soon, too. He does not have a customer development manager at the current time and exam is suggestive of charcotte nenita tooth w/ pes planus. He is not aware of this dx. Review of Systems - Constitutional: Denies fever or chills . - Integumentary: Reports a reddish area on his foot that is now an open wound. - Neurological: Reports a history of poo r sensation in his feet. - Musculoskeletal: Reports a history of flat feet. Physical Exam General: Well developed, well nourished, in no acute distress. Appears stated age. Head: Normocephalic, atraumatic. Eyes: Pupils are equal, round and reactive to light and accommodation. Conjunctivae are clear. Lungs: Clear to auscultation bilaterally. No rales, rhonchi or wheeze noted. Good air flow in all schuler. Heart: Regular rate and rhythm. 2/6 murmur ,No click, rubs or gallops are noted. Pulses: Peripheral pulses are hard to appreciate bilat d/t edema. However tissue appears well profused bilat. Extremities: RLE amp site well approximated. No odor. He has a nonblanchable erythematous patch on the dorsum of his foot (see below) it is not warm to touch, it is not painful, there is no drainage. It is now crusted (see below) Right lower ext +1 edema,pes planus bilat, charcotte like deformity bilat feet Psych: Mood and affect appropriate. Picture 03/01/2025 Today: Medical Decision Making The patient is a 54-year-old male with a history of diabetes, status post right 3rd toe amputation, who presents for an interim follow-up on his foot. He has a new area of skin breakdown which, while not appearing infected, is concerning for a developing diabetic foot ulcer. The slow healing process is likely exacerbated by his underlying diabetes. Additionally, the patient's foot morphology and history of poor sensation and flat feet, which predated his diabetes diagnosis, raise suspicion for Kkhvyts-Iktoy-Wtsot syndrome. Given these findings, an expedited referral to podiatry is warranted for expert evaluation of the ulcer and to work up the potential underlying neuropathy. The patient will continue his established care with nephrology and hematology/oncology for anemia management. He will also establish care with a new primary care provider in three weeks, which is an appropriate follow-up interval. Plan 1. Diabetes with complication of amputat ion Right 3rd toe: - A picture of the foot wound was taken for the chart to monitor its progress. - An expedited referral to podiatry will be placed for evaluation and management. - Patient was instructed to continue adeel iding pressure on the foot and to inspect his skin daily. 2. Suspected Dpqguhw-Lsmad-Futnp Syndrom e - The podiatry referral will include a r equest to further evaluate for this condition. 3. 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 4. Primary Care - The patient is scheduled to establish care with a new primary care provider, Nida, on April 13. - Patient was advised to confirm this ap pointment is scheduled before leaving the clinic. Patient Instructions - Continue to avoid any extra pressure o n your foot. - Check the skin on your feet every day to make sure no new areas open up. - We are putting in a referral to a foot doctor (customer development manager). - If you do not receive a call to [facility] an appointment in the next couple of weeks, please call our office or send a message through the patient portal. - Keep your upcoming appointment with sarahi lira new primary care provider, Nida, on April 13. - Before you leave today, please check w ith the front desk officer to make sure that appointment is still on the schedule. Consent Patient was informed and verbally consented to the use of an ambient scribe for clinic note documentation during this visit. Total time spent caring for the patient today was 30 minutes. This includes time spent before the visit reviewing the chart, time spent during the visit, and time spent after the visit on documentation, reviewing laboratory results, diagnostic imaging, medications, performing a medically necessary evaluation, counseling on diagnoses, care coordination, ordering appropriate tests, ordering appropriate medications, review of tests performed by other providers, reporting test results with the patient, communication with other healthcare providers. 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 CKD (chronic kidney disease) stage 3, GFR 30-59 ml/min Sleep apnea Chronic heart failure with preserved ejection fraction (HFpEF) Elevated cholesterol Iron deficiency anemia Chronic renal insufficiency Diabetic nephropathy Acute heart failure with preserved ejection fraction (HFpEF) Necrotizing subcutaneous infection Surgical History Amputated toe of right foot (~02/24/25) History of pyloromyotomy Status post incision and drainage [place] teeth removed Family History Mother Diabetes Maternal Uncle Diabetes Sister Multiple sclerosis Father Liver failure Kidney failure Social History Household Members: Significant Other Both parents involved: No Caregiver staying overnight: No Housing: House Are you a primary cardiac care nurse to a significant other at home: No Do you presently have visiting nurse or other home services: No 75 years or older and lives alone: No Alcohol intake: current Alcohol intake frequency: holidays/special occasions only Alcohol type: beer Patient Tobacco Use Status: Never used Tobacco Tobacco use type: Cigarette Years Smoked: 4 e-Cigarette/Vaping Use: Never Used Second Hand Smoke Exposure: No Substance Use Type: Marijuana Advance Directives Date on File: 05/07/23 service: No Current occupational status: employed Current occupation: [employer] Current occupational exposures/hazards: No Cognitive needs: No Hearing needs: No Vision needs: No Questionnaire Thrive Questionnaire Date Thrive assessed: 06/13/24 I am a: Patient What is your living situation today?: I have a steady place to live Within the past 12 months, did the food you bought not last and you didn't have the money to get more?: Sometimes True Within the past 12 months, did you worry whether your food would run out before you got money to buy more?: Sometimes True Do you have trouble paying for medicines?: Yes Do you have trouble getting transportation to medical appointments?: No Do you have trouble paying your heating and electricity bill?: Yes Do you have trouble taking care of your child, family member or friend?: No Do you have trouble with day-to-day activities such as bathing, preparing meals, shopping, managing finances, etc.?: No Are you currently unemployed and looking for a job?: No Are you interested in more education?: I choose not to answer this question Currently or been in a relationship where the following occur: No concerns reported THRIVE Score: 3 UTE-7 AMB Questionnaire UTE-7 Date UTE - 7 assessed: 03/01/25 Source: Developed by Drs. Higinio Rodriguez, Olivia Rayo, Edilberto Freeman and colleagues, with an educational smitha from [employer]. Physical exam (Primary Care) Vital Signs: Last Vital Signs Temp 97.4 F 03/13/25 13:59 Pulse 69 03/13/25 13:59 Resp 14 03/13/25 13:59 BP 159/70 H 03/13/25 13:59 Pulse Ox 99 03/13/25 13:59 Oxygen Delivery Method Room Air 03/13/25 13:59 BMI result Body Mass Index 36.8 Tobacco/Smoking Status: Tobacco use Status Tobacco use date assessed 03/13/25 03/13/25 13:59 Patient Tobacco Use Status Never used Tobacco 03/13/25 13:59 Tobacco use type Cigarette 03/13/25 13:59 e-Cigarette/Vaping Use Never Used 03/13/25 13:59 Thrive Assessment: Date of Thrive Assessment Date Thrive assessed 06/13/24 03/13/25 13:59 Currently or been in a relationship where the following occur: No concerns reported Coding Level of Care Code Est Pt Level 4 (77683) Complex EM visit Add On G2211 Diagnoses Poorly controlled type 2 diabetes mellitus E11.65 Status post amputation of toe of right foot Z89.421 Charcot foot due to diabetes mellitus E11.610 Pes planus of both feet M21.41; M21.42 Assessment & Plan Assessment & Plan (1) Poorly controlled type 2 diabetes mellitus: Code(s): E11.65 - Type 2 diabetes mellitus with hyperglycemia Category: Medical (2) Status post amputation of toe of right foot: Onset Date: ~01/2025 Code(s): Z89.421 - Acquired absence of other right toe(s) Category: Surgical (3) Charcot foot due to diabetes mellitus: Code(s): E11.610 - Type 2 diabetes mellitus with diabetic neuropathic arthropathy Category: Medical (4) Pes planus of both feet: Code(s): M21.41 - Flat foot [pes planus] (acquired), right foot; M21.42 - Flat foot [pes planus] (acquired), left foot Category: Medical Plan . Orders: Referrals 2 Podiatry Referral E11.610 - Type 2 diabetes mellitus with diabetic neuropathic arthropathy, E11.65 - Type 2 diabetes mellitus with hyperglycemia, M21.41 - Flat foot [pes planus] (acquired), right foot, M21.42 - Flat foot [pes planus] (acquired), left foot, Z89.421 - Acquired absence of other right toe(s) Medications: Discontinued 2 doxycycline hyclate Discontinued Reason: Patient Completed Course 100 mg PO BID 5 days 10 caps 0RF
[2025-03-13 13:59] VITALS: BP 159/70; PULSE 69; RESP 14; TEMP 36.3; O2SAT 99; BMI 36.8
== END 2025-03-13 14:21 | disposition home or self-care (01) ==
LOC: HO.HMCFM 13:55
PROVIDERS: Visit Provider Nurse Practitioner Family
DX: E11.65 Type 2 diabetes mellitus with hyperglycemia (principal); E11.610 Type 2 diabetes mellitus with diabetic neuropathic arthropathy; Q66.51 Congenital pes planus, right foot; Q66.52 Congenital pes planus, left foot; Z89.421 Acquired absence of other right toe(s)

== ENCOUNTER 2025-04-06 06:26 | Emergency (ER) | payer OTHER, SELFPAY ==
--- OUTSIDE RECORDS SUMMARY | 2024-01-25 04:30 | XMS_ITS ---
Author Organization [facility] Address [address] [place] [address] Care Team Providers Care Overhauler Helper Name Role Phone Quique Tatum N.P. Primary Care Provider Higinio Mcmahon Unavailable [phone] Velia Siddiqui Unavailable Unavailable REASON FOR VISIT screening Problems Problem Type SNOMED Code ICD Code Onset Dates Problem Status W/U Status Risk Notes Problem Diverticular disease of colon (579035023) Diverticulosis of large intestine without perforation or abscess without bleeding (K57.30) Active confirmed Encounters Encounter Location Date Provider Diagnosis [facility] [place] Outpatient [address] [place] [phone] 01/25/2024 Higinio Zhang Colon cancer scree shanthi [...] * SOO FONSECA:[birth year] (54 yo M)Acc No.[id number]:01/25/2024 COLON WITH MAC Patient: JORGE DURANT Provider: Nicanor Zhang MD :1970 A ge:53 Y S ex:Male Date:01/25/2024 Address:[address] [place] [address] , [facility] Pcp:Quique Tatum N.P. Subjective: * Chief Complaints: [...] Modifiers: 33 Billing Information: * Procedure Codes: 20871 LESION REMOVAL COLONOSCOPY. Modifiers: 33 * The named appointment provid er may or may not be the originator of this progress note, and it is not deemed complete until electronically signed by the appointment provider. Sign off status: Pending * Provider: Nicanor Zhang MD Date: 0 01/25/2024 Generated for Nikkie kelley/Steven/Franciscosmitting on: 1 06/07/2024 06:49 AM EST
[2025-04-06] VITALS (10 sets, daily range): BP systolic 162–183; BP diastolic 67–86; PULSE 64–71; RESP 16–20; TEMP 36.6–36.7; O2SAT 95–96; BMI 37.2
--- NOTE | ~2025-04-06 | US_ITS ---
EXAMINATION: US TRIPLEX LOWER EXTREMITY, RIGHT CLINICAL INFORMATION: Edema/swelling right lower extremity. Status post surgical procedure. COMPARISON: None available. TECHNIQUE: Color-flow triplex imaging with spectral analysis and compression Doppler were performed on the right lower extremity. FINDINGS: Respiratory variation, normal compression and augmented flow are demonstrated in the interrogated right common femoral vein, superficial femoral vein, profunda femoral vein, popliteal vein and midcalf peroneal and posterior tibial venous segments as well as the left common femoral vein. There is no Tse's cyst. Edema pattern in the soft tissues without fluid collections. Prominent right inguinal lymph node probably reactive. US/US venous duplex LE RT IMPRESSION: No acute deep venous thrombosis interrogated veins, right lower extremity. Negative for DVT. Electronically signed by: Markie Bar MD 04/06/2025 09:19 AM ANJEL
--- NOTE | 2025-04-06 06:42 | ED.GENADULT ---
HPI - General Adult General Chief complaint: Skin/Abscess/Foreign Body Stated complaint: Knee Leg Pain Time Seen by Provider: 04/06/25 06:42 Source: patient Mode of arrival: ambulatory Limitations: no limitations History of Present Illness ED Provider: HPI narrative: 54-year-old male status post right toe amputation for gangrene with Dr. Valverde on 02/24/2025, missed his postop visit yesterday, presenting for right lower extremity swelling that happened to 3 days ago, no shortness of breath no fevers or chills reported, he states he rushed here to go to the emergency department and did not take his medications in the morning, he also rescheduled his appointment to see Dr. Pineda from Cardiology in the next few days. Related Data Home Medications ?Medication ?Instructions ?Recorded ?Confirmed multivitamin 1 tab PO DAILY 03/11/22 03/16/25 omega-3 fatty acids-fish oil 684 1 cap PO DAILY 01/21/24 03/16/25 mg-1,200 mg capsule,delayed release acetaminophen 500 mg tablet 1,000 mg PO BID PRN Pain 11/11/24 03/16/25 cholecalciferol (vitamin D3) 50 50 mcg PO BEDTIME 11/11/24 03/16/25 mcg (2,000 unit) capsule fluticasone propionate 50 2 spray intranasal BID PRN for 11/11/24 03/16/25 mcg/actuation nasal allergies spray,suspension zinc acetate 25 mg (zinc) capsule 25 mg PO DAILY 11/11/24 03/16/25 insulin lispro 100 unit/mL See Protocol subcut QIDACHS 12/05/24 03/16/25 subcutaneous pen (Humalog KwikPen (U-100) Insulin) furosemide 40 mg tablet 40 mg PO BID 02/24/25 03/16/25 sodium polystyrene sulfonate 15 30 g PO MOWEFR@0900 02/24/25 03/16/25 gram oral powder Previous Rx's ?Medication ?Instructions ?Recorded blood-glucose meter (FreeStyle #1 ea 03/11/22 Lite Meter kit) comp.stocking,knee,long,medium #12 ea 04/15/23 lancets 28 gauge (FreeStyle #100 ea 08/27/23 Lancets) pen needle, diabetic 32 gauge x #120 ea 09/26/24 cyclobenzaprine 10 mg tablet 10 mg PO TID PRN muscle spasm #15 11/03/24 tabs insulin glargine 100 unit/mL (3 12 unit (0.12 mL) subcut 11/22/24 mL) subcutaneous pen (Basaglar DAILY@1700 #15 mL KwikPen U-100 Insulin) clonidine HCl 0.2 mg tablet 0.2 mg PO TID 90 days #270 tabs 12/19/24 atorvastatin 40 mg tablet (Lipitor) 40 mg PO BEDTIME 90 days #90 tabs 01/02/25 oxycodone 5 mg tablet 5 mg PO TID PRN pain, severe #12 02/27/25 tabs carvedilol 25 mg tablet 25 mg PO BID #180 tabs 02/28/25 hydralazine 50 mg tablet 50 mg PO TID #360 tabs 02/28/25 isosorbide mononitrate 30 mg 30 mg PO DAILY #90 tabs 02/28/25 tablet,extended release 24 hr fenofibrate 54 mg tablet 54 mg PO DAILY #90 tabs 03/10/25 blood sugar diagnostic (FreeStyle #100 ea 03/13/25 Lite Strips) Allergies Allergy/AdvReac Type Severity Reaction Status Date / Time No Known Allergies Allergy Verified 04/06/25 06:38 Review of Systems Constitutional: Constitutional: Reports as per [facility] Past Medical History Medical History Toe gangrene Hypertension Type 2 diabetes CKD stage 3 due to type [address] scan, chest Acute on chronic anemia Hyponatremia Severe obstructive sleep apnea Anemia Diabetes Osteomyelitis of third toe of left foot CKD (chronic kidney disease) stage 3, GFR 30-59 ml/min Sleep apnea Chronic heart failure with preserved ejection fraction (HFpEF) Elevated cholesterol Iron deficiency anemia Chronic renal insufficiency Diabetic nephropathy Acute heart failure with preserved ejection fraction (HFpEF) Necrotizing subcutaneous infection Surgical History Amputated toe of right foot (~02/24/25) History of pyloromyotomy Status post incision and drainage [place] teeth removed Family History Family History Mother Diabetes Maternal Uncle Diabetes Sister Multiple sclerosis Father Liver failure Kidney failure Social History Social History Household Members: Significant Other Housing: House Are you a primary career representative to a significant other at home: No Do you presently have visiting nurse or other home services: No Alcohol intake: current Alcohol intake frequency: holidays/special occasions only Alcohol type: beer Patient Tobacco Use Status: Never used Tobacco Tobacco use type: Cigarette Years Smoked: 4 Smoked in Last 30 Days: No e-Cigarette/Vaping Use: Never Used Second Hand Smoke Exposure: No Substance Use Type: Marijuana Advance Directives: No Advance Directives Information Provided: Yes Advance Directives Date on File: 05/07/23 service: No Current occupational status: employed Current occupation: [employer] Current occupational exposures/hazards: No Cognitive needs: No Hearing needs: No Vision needs: No Physical Exam ED Exam Exam: Vital Signs: Vital Signs - 24 hr 04/06/25 06:36 04/06/25 07:37 04/06/25 07:38 Temperature 97.8 F Pulse Rate 71 Respiratory Rate 20 Blood Pressure 162/67 H 176/78 H 176/78 H Pulse Oximetry 95 Oxygen Delivery Method Room Air 04/06/25 07:38 Temperature Pulse Rate Respiratory Rate Blood Pressure 176/78 H Pulse Oximetry Oxygen Delivery Method BMI result Body Mass Index 37.2 Const Other: ?General: Looks somewhat older than stated age ?PERRLA, EOMI, MMM, Neck: Supple, no LAD ?CV: RRR, no obvious murmurs appreciated ?Resp: ?No wheezing rales rhonchi no stridor moving air well Abd: ?Bowel sounds are present, no tenderness no rebound no rigidity MSK: Significant calf swelling right lower extremity nonpitting, +1 distal pulses posterior tibial dorsalis pedis, no knee effusion Skin: Appears to have postsurgical dehiscence no drainage ?Neuro: ?Alert and oriented x3, moving upper and lower extremities symmetrically, no obvious facial asymmetry noted, cranial nerves 2-12 intact Medications Administered Discontinued Medications Generic Name Dose Route Start Last Admin Trade Name Freq PRN Reason Stop Dose Admin Clonidine HCl 0.2 mg 04/06/25 07:25 04/06/25 07:38 Clonidine Hcl 0.2 Mg Tablet PO 04/06/25 07:26 0.2 mg ONCE ONE Administration Protocol Furosemide 40 mg 04/06/25 07:25 04/06/25 07:37 Furosemide 40 Mg Tablet PO 04/06/25 07:26 40 mg ONCE ONE Administration Protocol Hydralazine HCl 50 mg 04/06/25 07:25 04/06/25 07:38 Hydralazine Hcl 50 Mg Tablet PO 04/06/25 07:26 50 mg ONCE ONE Administration Protocol Oxycodone HCl 5 mg 04/06/25 07:25 04/06/25 07:38 Oxycodone Hcl Immed Release 5 Mg Tablet PO 04/06/25 07:26 5 mg ONCE ONE Administration Medical Decision Making Medical Decision Making MDM Narrative: 7:30 AM 04/06/2025 (Dr. Donnell Barlow): Presenting with postop wound dehiscence but mainly he is presenting with right lower extremity swelling, concern for DVT we will obtain ultrasound, there was no evidence for arterial insufficiency, he did miss his postop visit with Dr. Valverde see that yesterday before yesterday, we will let surgical team no and send him out with the pictures, there was no evidence of drainage but there is a dehiscence, dressing we will be changed, disposition to be determined there was no evidence for compartment syndrome, septic joint either of the knee or the ankle, and also patient did not take his morning medications I reviewed them, and I will provide medications for pain and for blood pressure control 8:01 AM 04/06/2025 (Dr. Donnell Barlow): Dr. Valverde saw patient in ED, patient will follow up on outpatient basis 9:29 AM 04/06/2025 (Dr. Donnell Barlow): DVT study negative, patient's leg we will be rewrapped, he states he is supposed to use compression stockings but he is not using them 9:41 AM 04/06/2025 (Dr. Donnell Barlow): Blood work revealed that he is anemic, this is ongoing issue, last blood transfusion was around a week ago according to the patient, he is awaiting [employer] authorization for this, no blood loss reported, consent obtained I will transfuse him 1 unit and anticipate discharge otherwise Differential Diagnosis Differential Diagnoses: The differential diagnosis associated with the presentation includes Admission/Observation Consideration of admission/observation: Escalation of care including admission/observation considered Consult Healthcare Provider Management of the patient was 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 04/06/25 09:28 04/06/25 09:28 Labs: Lab Results 04/06/25 Range/Units 07:42 POC Glucose 114 (60-115) mg/dL External Record Review External record reviewed: Office record Prescription Management I considered prescription management with: Pain Medication Chronic Conditions Patient?s care impacted by: Diabetes and Hypertension Critical Care Time Critical Care Time Critical Care Time: Yes Total Critical Care Time: 45 Attestation: Time is exclusive of separately billable procedures. Time includes: direct patient care, patient reassessment, coordination of patient care, interpretation of data (laboratory data, pulse oximetry, arterial blood gases and chest xrays), review of patient's medical records, medical consultation and documentation of patient care. Procedures excluded from critical care time: central intravenous line placement and electrocardiography. Discharge Plan Discharge Clinical Impression: Edema of right lower extremity, Postoperative dehiscence of skin wound, Anemia of chronic illness Additional Instructions: Evaluated with lower extremity swelling on the right side which is your postoperative side, I thought that the surgical site appears somewhat widened but Dr. Valverde evaluated the picture and told me as well as you that everything looks well, and you will have a follow up with the surgeon, please use your compression stockings and keep your foot elevated when not in use, actually you need to use compression stockings to both lower extremities to prevent the swelling Your medications were provided for the day take the rest of the medications as your prescribed, you received furosemide, clonidine, hydralazine, oxycodone Is we also discussed you received 1 unit of red blood cells for anemia of 6.8 Prescriptions: No Action (DME) lancets [FreeStyle Lancets] 28 gauge misc See Rx Instructions .ROUTE .COMPLEX Qty: 100 2RF Dose Instruction: TEST FOUR TIMES A DAY OR DIRECTED. Rx Instructions: TEST FOUR TIMES A DAY OR DIRECTED. (DME) pen needle, diabetic 32 gauge x /32 needle See Rx Instructions .ROUTE .COMPLEX Qty: 120 8RF Dose Instruction: USE FOUR TIMES A DAY OR DIRECTED. Rx Instructions: USE FOUR TIMES A DAY OR DIRECTED. carvedilol 25 mg tablet 25 mg PO BID Qty: 180 0RF Protocol: Hold for SBP/HR < HOLD for SBP < : 90 HOLD for HR < : 60 hydralazine 50 mg tablet 50 mg PO TID Qty: 360 0RF Protocol: Hold for SBP< HOLD for SBP < : 90 isosorbide mononitrate 30 mg tablet extended release 24 hr 30 mg PO DAILY Qty: 90 3RF Protocol: Hold for SBP< HOLD for SBP < : 90 fenofibrate 54 mg tablet 54 mg PO DAILY Qty: 90 1RF (DME) FreeStyle Lite Strips Strip Qty: 100 4RF Rx Instructions: Test four times a day or as directed. multivitamin Tablet 1 tab PO DAILY (DME) blood-glucose meter [FreeStyle Lite Meter] Kit Qty: 1 0RF Rx Instructions: As Directed omega-3 fatty acids-fish oil 684-1,200 mg Capsule,Delayed Release(Dr/Ec) 1 cap PO DAILY cyclobenzaprine 10 mg tablet 10 mg PO TID PRN (Reason: muscle spasm) Qty: 15 0RF zinc acetate 25 mg (zinc) capsule 25 mg PO DAILY Rx Instructions: substitute of 30 mg capsules ok fluticasone propionate 50 mcg/actuation spray,suspension 2 spray intranasal BID PRN (Reason: for allergies) cholecalciferol (vitamin D3) 50 mcg (2,000 unit) capsule 50 mcg PO BEDTIME acetaminophen 500 mg Tablet 1,000 mg PO BID PRN (Reason: Pain) insulin glargine [Basaglar KwikPen U-100 Insulin] 100 unit/mL (3 mL) insulin pen 12 unit subcut DAILY@1700 Qty: 15 0RF insulin lispro [Humalog KwikPen Insulin] 100 unit/mL insulin pen See Protocol SUBCUT QIDACHS Protocol: Insulin Correction Scale Less than or equal to 110 ---- Give (units): 0 111 to 150 Give (units): 0 151 to 200 Give (units): 2 201 to 250 Give (units): 4 251 to 300 Give (units): 6 301 to 350 Give (units): 8 Greater than 350 Give (units): 10 Call MD if Blood Glucose > : 350 furosemide 40 mg tablet 40 mg PO BID sodium polystyrene sulfonate 15 gram powder 30 g PO MOWEFR@0900 oxycodone 5 mg tablet 5 mg PO TID PRN (Reason: pain, severe) Qty: 12 0RF Rx Instructions: Partial Fill upon patient request. (DME) comp.stocking,knee,long,medium Misc See Rx Instructions .Route Qty: 12 0RF Rx Instructions: As directed clonidine HCl 0.2 mg tablet 0.2 mg PO TID 90 Days Qty: 270 1RF atorvastatin [Lipitor] 40 mg tablet 40 mg PO BEDTIME 90 Days Qty: 90 2RF Print Language: Nigerien
--- OUTSIDE RECORDS SUMMARY | 2025-04-06 06:50 | XMS_ITS | Patient Health Record ---
Author Organization [facility] Address [address] [place] [id number] Care Team Providers Care Health Education Coordinator Name Role Phone Quique Tatum N.P. Primary Care Provider Higinio Mcmahon Unavailable [phone] Velia Siddiqui Unavailable Unavailable Allergies No Known Allergies Reason For Referral No Information Medications Medication SIG (Take, Route, Frequency, Duration) Notes Start Date End Date Status Fluticasone Propionate 93 MCG/ACT Exhaler Suspension 2 sprays (1 spray in each nostril) Nasally Twice a day; Duration: 30 day(s) Active Multivitamin Active Vitamin D3 50 MCG (1999) Capsule Oral; Duration: 90 Active metFORMIN HCl 1000 MG Tablet Oral; Duration: 90 Active Atorvastatin Calcium 40 MG Tablet Oral; Duration: 90 Active [place] 3 Active Basaglar KwikPen 100 UNIT/ML Solution Pen-injector Subcutaneous; Duration: 90 Active Zinc Active Jardiance 10 MG Tablet Oral; Duration: 90 Active Carvedilol 12.5 MG Tablet Oral; Duration: 90 Active Furosemide 40 MG Tablet TAKE 1 TABLET BY MOUTH EVERY MORNING Oral; Duration: 90 Active Ferrous Sulfate 325 (65 Fe) MG Tablet TAKE 1 TABLET BY MOUTH 3 TIMES A DAY FOR 30 DAYS Oral; Duration: 90 Active Valsartan 80 MG Tablet Oral; Duration: 90 Active Social History Tobacco Use: Social History Observation Description Date Details (start date - stop date) Never Smoker NA - NA Social History Drugs/Alcohol: Social Info Question Answer Notes Alcohol Screen Did you have a drink containing alcohol in the past year? Yes How often did you have a drink containing alcohol in the past year? 2 to 4 times a month (2 points) How many drinks did you have on a typical day when you were drinking in the past year? 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 Section Notes: Smokes marijuana; occ alcoho l on the weekends Problems Problem Type SNOMED Code ICD Code Onset Dates Problem Status W/U Status Risk Notes Problem Colon cancer screening (258275989) Colon cancer screening (Z12.11) Active confirmed Problem Pre-procedure evaluation check (024461395) Encounter for other preprocedural examination (Z01.818) Active confirmed Problem Diverticular disease of colon (612178483) Diverticulosis of large intestine without perforation or abscess without bleeding (K57.30) Active confirmed Plan Of Treatment Pending Test Test Name Order Date Pathology 01/25/2024 Future Test Test Name Order Date COLONOSCOPY 10/01/2023 Insurance Providers Payer Name Payer Address Payer Phone Subscriber Number Group Number Insured Name Patient Relationship to Insured Coverage Start Date Coverage End Date [employer] [address] [place] [address] [phone] [id number] JORGE FONSECA Self - patient is the insured Medical (General) History Medical History History ICD Code Sleep apnea - CPAP machine 09/2023 DM Hypertension CKD stage 3 Anemia Hypercholesterolemia Denies MO,CVA,Lung disease Surgical History Surgery Date(Month/Year) [place] teeth Perirectal abscess -Dr. Valverde--in [facility] for about a week 02/2022
[2025-04-06] MEDS: oxyCODONE HCl Immed Release 5 MG TABLET PO (07:38)
[2025-04-06 07:46] LABS: Glucose, Whole Blood 114 mg/dL (60-115)
--- NOTE | 2025-04-06 07:53 | PC.NURSE ---
Patient presented to the ED with right leg swelling for couple days . States he has a recent right toe amputation 02/24. Patient missed his postop apt 04/05. Right leg noted to be red and very swollen, with some blisters noted. Patient has some decreased sensation on right leg, +circulation and +movement. VSS.
[2025-04-06 09:32] LABS: MANUAL DIFF FLAG NO
[2025-04-06 09:33] LABS: Imm Gran Abs Auto 0.49 X10*3/uL (0.00-0.03); Imm Gran Pct Auto 4.3 % (0.0-0.4); Lymphocytes Absolute Auto 1.4 X10*3/uL (1.2-4.9); Mean Corpuscular HGB Conc 33.0 g/dl (31.0-36.0); Mean Corpuscular Hemoglobin 30.8 pg (27.0-33.0); Mean Corpuscular Volume 93.2 fL (80.0-98.0); NRBC Abs Auto 0.000 X10*3/uL (0.0-0.012); NRBC Pct Auto 0.0 /100WBC (0.0-0.2); Platelet Count 172 X10*3/uL (160-400); Red Blood Count 2.21 X10*6/uL (4.60-5.80); White Blood Count 11.4 X10*3/uL (4.8-10.8)
[2025-04-06 09:39] LABS: Hemoglobin 6.8 g/dl (14.0-18.0)
[2025-04-06 09:40] LABS: Hematocrit 20.6 % (42.0-52.0)
[2025-04-06 09:53] LABS: Alanine Aminotransferase 23 U/L (0-40); Albumin Level 3.1 g/dL (3.5-5.0); Alkaline Phosphatase 315 U/L (39-117); Anion Gap 11 (12-20); Aspartate Amino Transferase 28 U/L (5-37); Blood Urea Nitrogen 51 mg/dL (9-16); Calcium 8.3 mg/dL (8.4-10.2); Carbon Dioxide 26 mmol/L (22-29); Chloride 107 mmol/L (96-108); Creatinine Clr Calc Pharmacy 36.9; Estimated Glomerular Filt Rate 24; Potassium 4.4 mmol/L (3.3-5.1); Sodium 140 mmol/L (135-145); Total Protein 7.3 g/dL (6.5-8.0)
--- NOTE | 2025-04-06 11:20 | PC.NURSE ---
One unit PRB started per TAR report. VSS remain at baseline. Patient stable.
== END 2025-04-06 14:02 | disposition home or self-care (01) ==
PROVIDERS: Emergency Provider Emergency Medicine; PCP Nurse Practitioner Family
DX: R60.0 Localized edema (principal); M25.561 Pain in right knee; D64.9 Anemia, unspecified; E11.9 Type 2 diabetes mellitus without complications; T81.30XA Disruption of wound, unspecified, initial encounter; Y83.8 Other surgical procedures as the cause of abnormal reaction of the patient, or of later complication, without mention of misadventure at the time of the procedure; Y92.9 Unspecified place or not applicable; Z79.4 Long term (current) use of insulin; Z79.899 Other long term (current) drug therapy
CPT/HCPCS: 36415; 36430; 80053; 82947; 83605; 85025; 86850; 86900; 86901; 86923; 93971; 99284; 99285; P9016

== ENCOUNTER → 2025-04-06 07:25 | Outpatient (BNV) | payer OTHER, SELFPAY | PROVIDERS: Emergency Provider Emergency Medicine; PCP Nurse Practitioner Family; Visit Provider Radiology Diagnostic Radiology | DX: R60.0 Localized edema (principal) | CPT/HCPCS: 93971 ==

== ENCOUNTER 2025-04-10 15:18 | Outpatient (AMB) | payer OTHER, SELFPAY ==
--- OUTSIDE RECORDS SUMMARY | 2024-01-25 04:30 | XMS_ITS ---
Author Organization [facility] Address [address] [place] [phone] Care Team Providers Care Anime Designer Name Role Phone Quique Tatum N.P. Primary Care Provider Higinio Mcmahon Unavailable [phone] Velia Siddiqui Unavailable Unavailable REASON FOR VISIT screening Problems Problem Type SNOMED Code ICD Code Onset Dates Problem Status W/U Status Risk Notes Problem Diverticular disease of colon (599466504) Diverticulosis of large intestine without perforation or abscess without bleeding (K57.30) Active confirmed Encounters Encounter Location Date Provider Diagnosis [facility] [place] [address] [place] [phone] 01/25/2024 Higinio Zhang Colon cancer scree shanthi [...] * SOO FONSECA:[birth year] (54 yo M)Acc No.[id number]:01/25/2024 COLON WITH MAC Patient: JORGE DURANT Provider: Nicanor Zhang MD :1970 A ge:53 Y S ex:Male Date:01/25/2024 Address:[address] [place] [address] , [facility] Pcp:Quique Tatum N.P. Subjective: * Chief Complaints: [...] Modifiers: 33 Billing Information: * Procedure Codes: 42470 LESION REMOVAL COLONOSCOPY. Modifiers: 33 * The named appointment provid er may or may not be the originator of this progress note, and it is not deemed complete until electronically signed by the appointment provider. Sign off status: Pending * Provider: Nicanor Zhang MD Date: 0 01/25/2024 Generated for Nikkie kelley/Steven/Franciscosmitting on: 1 06/11/2024 09:48 PM EST
--- NOTE | 2025-04-10 15:20 | MHC.OFFVIS ---
Vital Signs 04/10/25 15:21 Height 5 ft 8 in Weight 244 lb 11.41 oz BMI 37.2 BP 150/78 H Blood Pressure Location Lt brachial Position Sitting Pulse 66 Intake Visit Reasons: 1 year fu Intake Note: 1 year follow-up with ekg hearts ok c/o low left back pain Page Makeup System Operator Required: No Chief Controller: Chief Controller Present Accompanied by: Spouse Allergies No Known Allergies Allergy (Verified 04/06/25 06:38) Medication List - Last Reconciled 04/10/25 by Jonnathan Pineda MD acetaminophen 1,000 mg PO BID PRN atorvastatin (Lipitor) 40 mg PO BEDTIME 90 days blood sugar diagnostic (FreeStyle Lite Strips) Test four times a day or as directed. blood-glucose meter (FreeStyle Lite Meter kit) As Directed carvedilol 25 mg See Protocol PO BID cholecalciferol (vitamin D3) 50 mcg PO BEDTIME clonidine HCl 0.2 mg PO TID 90 days comp.stocking,knee,long,medium As directed cyclobenzaprine 10 mg PO TID PRN fenofibrate 54 mg PO DAILY fluticasone propionate 50 mcg/actuation 2 sprays intranasal BID PRN furosemide 40 mg PO BID hydralazine 50 mg See Protocol PO TID insulin glargine (Basaglar KwikPen U-100 Insulin) 12 units (0.12 mL) subcut DAILY@1700 insulin lispro (Humalog KwikPen (U-100) Insulin) See Protocol sliding scale doses subcut QIDACHS isosorbide mononitrate ER 30 mg See Protocol PO DAILY lancets (FreeStyle Lancets) TEST FOUR TIMES A DAY OR DIRECTED. multivitamin 1 tab PO DAILY omega-3 fatty acids-fish oil 684-1,200 mg 1 cap PO DAILY oxycodone 5 mg PO TID PRN pen needle, diabetic USE FOUR TIMES A DAY OR DIRECTED. sodium polystyrene sulfonate 30 grams PO MOWEFR@0900 zinc acetate 25 mg PO DAILY HPI Comments Details: River comes for follow up with his significant other. He recently came to the ED with significant swelling in his right lower extremity. Underwent a DVT venous duplex of the right lower extremity without significant DVT noted from thigh downward. No pelvic ultrasound was performed. Continues to have significant swelling in his right lower extremity. No swelling in his left side. He does have prior history of heart failure but that has no significant weight gain or bilateral swelling or abdominal distension. He did have recent surgery in his right toe. COUNT INCLUDES THE [facility] Medical History Toe gangrene Hypertension Type 2 diabetes CKD stage 3 due to type [address] scan, chest Acute on chronic anemia Hyponatremia Severe obstructive sleep apnea Anemia Diabetes Osteomyelitis of third toe of left foot CKD (chronic kidney disease) stage 3, GFR 30-59 ml/min Sleep apnea Chronic heart failure with preserved ejection fraction (HFpEF) Elevated cholesterol Iron deficiency anemia Chronic renal insufficiency Diabetic nephropathy Acute heart failure with preserved ejection fraction (HFpEF) Necrotizing subcutaneous infection Surgical History Amputated toe of right foot (~02/24/25) History of pyloromyotomy Status post incision and drainage [place] teeth removed Family History Mother Diabetes Maternal Uncle Diabetes Sister Multiple sclerosis Father Liver failure Kidney failure Social History Household Members: Significant Other Both parents involved: No Caregiver staying overnight: No Housing: House Are you a primary vocational childcare teacher to a significant other at home: No Do you presently have visiting nurse or other home services: No 75 years or older and lives alone: No Alcohol intake: current Alcohol intake frequency: holidays/special occasions only Alcohol type: beer Patient Tobacco Use Status: Never used Tobacco Tobacco use type: Cigarette Years Smoked: 4 e-Cigarette/Vaping Use: Never Used Second Hand Smoke Exposure: No Substance Use Type: Marijuana Advance Directives Date on File: 05/07/23 service: No Current occupational status: employed Current occupation: [employer] Current occupational exposures/hazards: No Cognitive needs: No Hearing needs: No Vision needs: No Review of Systems Const Denies chills, Denies fatigue, Denies fever(s), Denies frequent falls, Denies weakness, Denies weight gain and Denies weight loss ENT Denies dizziness Card Denies chest pain, Denies leg edema, Denies lightheadedness, Denies palpitations, Denies dyspnea, Denies dyspnea on exertion, Denies orthopnea and Denies other (loss of consciousness) Resp Denies cough, Denies dyspnea and Denies dyspnea on exertion GI Denies hematochezia and Denies change in stool character Musc Denies abnormal gait, Denies muscle weakness, Denies numbness, Denies radiating pain into limb and Denies tingling Neuro Denies abnormal gait, Denies dizziness, Denies frequent falls, Denies numbness, Denies tingling and Denies weakness Endo Denies fatigue and Denies palpitations Physical Exam Vital Signs: Last Vital Signs Pulse 66 04/10/25 15:21 BP 150/78 H 04/10/25 15:21 BMI result Body Mass Index 37.2 Const General: cooperative, healthy appearing, comfortable and no acute distress Orientation/consciousness: patient oriented x3 Neck Neck: Yes normal visual inspection Resp Effort & Inspection: normal respiratory effort Auscultation: clear to auscultation bilaterally, no crackles, no rales, no rhonchi and no wheezes Cardio Jugular venous distension: no JVD Rate: regular rate Rhythm: regular rhythm Heart sounds: S1 normal heart sound present, S2 normal heart sound present, no murmurs and no rubs Neuro General: patient oriented x3 Extrem General: Yes normal to inspection and No no pedal edema Psych Appearance: grossly normal Mental Status: mental status grossly normal Speech and movement: Normal speech and movement present Office Procedures EKG Details: EKGs shows normal sinus rhythm normal EKGs 12399-[id number], Complete Assessment & Plan Assessment & Plan (1) Chronic heart failure with preserved ejection fraction (HFpEF): Code(s): I50.32 - Chronic diastolic (congestive) heart failure Category: Medical Plan: Patient with prior history of heart failure with preserved ejection fraction. Clinically does not appear to be centrally venous congested. He is currently on diuretic dose and I do not think this requires to be increased. He overall as poor prognosis given his significant comorbidities including uncontrolled diabetes, advanced kidney disease, morbid obesity, significant anemia. I would advised him to continue current diuretic dose. Daily weight monitoring avoidance salt loading was discussed. Unlikely that he is in his leg edema has related to heart failure was discussed with him. Continue aggressive blood pressure control and continue current therapy. Overall prognosis is guarded. (2) Swelling of right lower extremity: Code(s): M79.89 - Other specified soft tissue disorders Category: Medical Plan: Patient was significant swelling unilaterally of right lower extremity with pitting edema. He does not have any evidence of DVT from thigh on words downward. Discussed with Radiology for further evaluation and pelvic vein thrombosis is likely especially of right external iliac and common iliac veins. Discussed with Radiology about further diagnostic options especially given that he has advanced renal dysfunction CTA venography or MRI are relatively contraindicated. Will pursue limited ultrasound of the pelvis to detect for thrombosis although given his body habitus this might. Not diagnose sick test. Advised to follow up with vascular surgery. Will follow up in the clinic from cardiac perspective in 1 year's time. Thank you for allowing me to partake in his care Orders: Orders US pelvic limited 04/10/25 M79.89 - Other specified soft tissue disorders Coding Level of Care Code Est Pt Level 4 (85194) Diagnoses Chronic heart failure with preserved ejection fraction (HFpEF) I50.32 Swelling of right lower extremity M79.89 CPT Codes EKG - CPT: 80386-[id number], Complete ([id number])
[2025-04-10 15:21] VITALS: BP 150/78; PULSE 66; BMI 37.2
--- OUTSIDE RECORDS SUMMARY | 2025-04-10 21:49 | XMS_ITS | Patient Health Record ---
Author Organization [facility] Address [address] [place] [id number] Care Team Providers Care Steel Tier Name Role Phone Quique Tatum N.P. 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 Section Notes: Smokes marijuana; occ alcoho l on the weekends Problems Problem Type SNOMED Code ICD Code Onset Dates Problem Status W/U Status Risk Notes Problem Colon cancer screening (758897189) Colon cancer screening (Z12.11) Active confirmed Problem Pre-procedure evaluation check (750682309) Encounter for other preprocedural examination (Z01.818) Active confirmed Problem Diverticular disease of colon (856251936) Diverticulosis of large intestine without perforation or abscess without bleeding (K57.30) Active confirmed Plan Of Treatment Pending Test Test Name Order Date Pathology 01/25/2024 Future Test Test Name Order Date COLONOSCOPY 10/01/2023 Insurance Providers Payer Name Payer Address Payer Phone Subscriber Number Group Number Insured Name Patient Relationship to Insured Coverage Start Date Coverage End Date [employer] [address] [place] [address] [phone] [id number] JORGE FONSECA Self - patient is the insured Medical (General) History Medical History History ICD Code Sleep apnea - CPAP machine 09/2023 DM Hypertension CKD stage 3 Anemia Hypercholesterolemia Denies [place],CVA,Lung disease Surgical History Surgery Date(Month/Year) [place] teeth Perirectal abscess -Dr. Valverde--in [facility] for about a week 02/2022
== END 2025-04-10 15:45 | disposition home or self-care (01) ==
LOC: HO.HCS 15:19
PROVIDERS: PCP Physician Assistant Medical; Visit Provider Internal Medicine Cardiovascular Disease
DX: I50.32 Chronic diastolic (congestive) heart failure (principal); M79.89 Other specified soft tissue disorders
CPT/HCPCS: 93010; 99214

== ENCOUNTER → 2025-04-10 15:18 | Outpatient (BNVA) | payer OTHER, SELFPAY | PROVIDERS: PCP Physician Assistant Medical; Visit Provider Internal Medicine Cardiovascular Disease | DX: I13.0 Hypertensive heart and chronic kidney disease with heart failure and stage 1 through stage 4 chronic kidney disease, or unspecified chronic kidney disease (principal); I50.32 Chronic diastolic (congestive) heart failure; E11.22 Type 2 diabetes mellitus with diabetic chronic kidney disease; N18.30 Chronic kidney disease, stage 3 unspecified; E66.01 Morbid (severe) obesity due to excess calories; D64.9 Anemia, unspecified; M79.89 Other specified soft tissue disorders; Z68.37 Body mass index [BMI] 37.0-37.9, adult; Z79.899 Other long term (current) drug therapy | CPT/HCPCS: 93005 ==

== ENCOUNTER 2025-04-13 10:51 | Outpatient (AMB) | payer OTHER, SELFPAY ==
--- OUTSIDE RECORDS SUMMARY | 2024-01-25 04:30 | XMS_ITS ---
Author Organization [facility] Address [address] [place] [phone] Care Team Providers Care Oracle Erp Architect Name Role Phone Quique Tatum N.P. Primary Care Provider Higinio Mcmahon Unavailable [phone] Velia Siddiqui Unavailable Unavailable REASON FOR VISIT screening Problems Problem Type SNOMED Code ICD Code Onset Dates Problem Status W/U Status Risk Notes Problem Diverticular disease of colon (189110465) Diverticulosis of large intestine without perforation or abscess without bleeding (K57.30) Active confirmed Encounters Encounter Location Date Provider Diagnosis [facility] [place] [address], [place] [phone] 01/25/2024 Higinio Zhang Colon cancer scree shanthi [...] * SOO FONSECA:[birth year] (54 yo M)Acc No.[id number]:01/25/2024 COLON WITH MAC Patient: JORGE DURANT Provider: Nicanor Zhang MD :1970 A ge:53 Y S ex:Male Date:01/25/2024 Address:[address] [place] [address] , [facility] Pcp:Quique Tatum N.P. Subjective: * Chief Complaints: [...] Modifiers: 33 Billing Information: * Procedure Codes: 75997 LESION REMOVAL COLONOSCOPY. Modifiers: 33 * The named appointment provid er may or may not be the originator of this progress note, and it is not deemed complete until electronically signed by the appointment provider. Sign off status: Pending * Provider: Nicanor Zhang MD Date: 0 01/25/2024 Generated for Nikkie kelley/Steven/Franciscosmitting on: 1 06/14/2024 01:58 PM EST
--- NOTE | 2025-04-13 10:56 | A.OFFPC_ITS ---
Vital Signs 04/13/25 11:03 Height 5 ft 8 in Weight 240 lb BMI 36.5 BP 140/60 H Blood Pressure Location Lt brachial Position Sitting Respiration 16 Pulse 66 Pulse Source Pulse Oximeter Temp 98.7 F Temp Source Temporal Artery Scan Pulse Oximetry (%) 96 Oxygen Delivery Method Room Air Intake Visit Reasons: 2-3 weeks with DL Est care/complex fu Intake Note: River presents in the office today to establish care with a new provider. Complex. Farm Consultant Required: No Allergies No Known Allergies Allergy (Verified 04/13/25 11:01) Tobacco use date assessed: 04/13/25 Dental Screening Dental Screen Date: 04/13/25 Did you have a dental visit in the last 12 months?: No Did you have a dental problem in the last 6 months where you did not have access to dental care?: No Was dental information given to patient?: Patient declined HPI HPI Comments History of Present Illness Details This is a 54-year-old male with a past medical history of CKD stage 4, osteomyelitis, amputation of the right middle toe 02/24/2025, hypertension, CAD, anemia of chronic kidney disease, type 2 diabetes, hyperlipidemia and chronic heart failure presenting for ER follow up. This is my 1st time seeing the patient. He is transferring to my panel. The patient was seen at the emergency department at [facility] on 04/06/2025 for right lower extremity swelling that started 3 days prior to the ER visit. Patient's surgeon, Dr. Valverde, evaluated picture from ED and recommended follow up with him. He was also instructed to use compression stockings. Venous duplex was negative for DVT. Patient was found to be critically anemic with H&H of 6.8 and 20.6 and was therefore transfused with 1 unit of red blood cells. He is followed by Hematology. Continues to endorse swelling of the right lower extremity. He is using a cane. Patient saw Dr. Pineda on 04/10/2025. Did not appear to be exacerbation of heart failure and was recommended to continue current dose of Lasix. Dr. Pineda did order pelvic ultrasound to look for thrombosis of the common iliac or external iliac vein. This has not been scheduled yet. No weight gain, interval weight loss 4 lb since 04/10. Type 2 diabetes-taking Basaglar 12 units and Humalog sliding scale. Per CGM glucose is 140 today. Past medications: Metformin and Jardiance. Hemoglobin A1c 6.1% 02/03/2025. Denies hypoglycemia. Patient says he was diagnosed 2 years ago. Patient has used up LA and is planning to schedule appointment with social security office. He has been trying to work, but due to hospitalizations, appointments, chronic pain it has been very difficult. Endorses fatigue. ROS: Constitutional: No fevers, chills or night sweats. Eyes: No vision changes Respiratory: No shortness of breath, cough or sputum production. Cardiovascular: No chest pain Gastrointestinal: No nausea or vomiting Neurologic: No headache, dizziness, syncope Skin: See HPI Endocrine: Denies polyuria or polydipsia Physical exam: Constitutional: Alert, in no distress.. Eyes: Pupils are equal, round and reactive to light. Extraocular muscles intact. Neck: Supple, Full range of motion. No lymphadenopathy. Respiratory: Clear to auscultation in all schuler. Cardiovascular: S1 S2 regular. II/ systolic murmur Neurologic: No focal neurological deficits. Musculoskeletal: No gross deformities. Normal range of motion. Extremities: Significant right lower leg and foot pitting edema, intact dorsalis pedis pulses, the surgical site appears open and stable from the picture in the EMR from the ED visit on 04/06/2025. There is no active discharge or bleeding. There is mild erythema on the top of the mid foot and overlying the 2nd-4th MTP joints which is nontender. [facility] Medical History (Updated 04/14/25 @ 13:58 by NAFISA Sharma) Wound of foot Controlled type 2 diabetes mellitus Toe gangrene Hypertension Type 2 diabetes CKD stage 3 due to type [address] scan, chest Acute on chronic anemia Hyponatremia Severe obstructive sleep apnea Anemia Diabetes Osteomyelitis of third toe of left foot CKD (chronic kidney disease) stage 3, GFR 30-59 ml/min Sleep apnea Chronic heart failure with preserved ejection fraction (HFpEF) Elevated cholesterol Iron deficiency anemia Chronic renal insufficiency Diabetic nephropathy Acute heart failure with preserved ejection fraction (HFpEF) Necrotizing subcutaneous infection Surgical History (Updated 04/14/25 @ 13:58 by NAFISA Sharma) History of amputation of right third toe Amputated toe of right foot (~02/24/25) History of pyloromyotomy Status post incision and drainage [place] teeth removed Family History Mother Diabetes Maternal Uncle Diabetes Sister Multiple sclerosis Father Liver failure Kidney failure Social History (Updated 04/13/25 @ 11:03 by Em Pastrana CMA) Household Members: Significant Other Both parents involved: No Caregiver staying overnight: No Housing: House Are you a primary infant childcare provider to a significant other at home: No Do you presently have visiting nurse or other home services: No 75 years or older and lives alone: No Alcohol intake: current Alcohol intake frequency: holidays/special occasions only Alcohol type: beer Patient Tobacco Use Status: Never used Tobacco Tobacco use type: Cigarette Years Smoked: 4 e-Cigarette/Vaping Use: Never Used Second Hand Smoke Exposure: No Substance Use Type: Marijuana Advance Directives Date on File: 05/07/23 service: No Current occupational status: employed Current occupation: [employer] Current occupational exposures/hazards: No Cognitive needs: No Hearing needs: No Vision needs: No Questionnaire Thrive Questionnaire Date Thrive assessed: 06/13/24 I am a: Patient What is your living situation today?: I have a steady place to live Within the past 12 months, did the food you bought not last and you didn't have the money to get more?: Sometimes True Within the past 12 months, did you worry whether your food would run out before you got money to buy more?: Sometimes True Do you have trouble paying for medicines?: Yes Do you have trouble getting transportation to medical appointments?: No Do you have trouble paying your heating and electricity bill?: Yes Do you have trouble taking care of your child, family member or friend?: No Do you have trouble with day-to-day activities such as bathing, preparing meals, shopping, managing finances, etc.?: No Are you currently unemployed and looking for a job?: No Are you interested in more education?: I choose not to answer this question Currently or been in a relationship where the following occur: No concerns reported THRIVE Score: 3 UTE-7 AMB Questionnaire UTE-7 Date UTE - 7 assessed: 03/01/25 Source: Developed by Drs. Higinio Rodriguez, Olivia Rayo, Edilberto Freeman and colleagues, with an educational smitha from [employer]. Physical exam (Primary Care) Vital Signs: Last Vital Signs Temp 98.7 F 04/13/25 11:03 Pulse 66 04/13/25 11:03 Resp 16 04/13/25 11:03 BP 140/60 H 04/13/25 11:03 Pulse Ox 96 04/13/25 11:03 Oxygen Delivery Method Room Air 04/13/25 11:03 BMI result Body Mass Index 36.5 Tobacco/Smoking Status: Tobacco use Status Tobacco use date assessed 04/13/25 04/13/25 11:06 Patient Tobacco Use Status Never used Tobacco 04/13/25 11:03 Tobacco use type Cigarette 04/13/25 11:03 e-Cigarette/Vaping Use Never Used 04/13/25 11:03 Thrive Assessment: Date of Thrive Assessment Date Thrive assessed 06/13/24 04/13/25 10:58 Currently or been in a relationship where the following occur: No concerns reported Coding Level of Care Code Est Pt Level 5 (10256) Add On Problem Visit Only Diagnoses Wound of foot S91.309A Controlled type 2 diabetes mellitus E11.9 Fatigue R53.83 Chronic heart failure with preserved ejection fraction (HFpEF) I50.32 CKD stage 4 due to type 2 diabetes mellitus E11.22; N18.4 Anemia in stage 3a chronic kidney disease N18.31; D63.1 Chronic kidney disease stage: stage 3 (moderate) Chronic kidney disease stage 3 subtype: stage 3a (GFR 45-59) History of amputation of right third toe Z89.421 Time Spent (min) 57 Comment Direct patient care, completing documentation, chart review Assessment & Plan Assessment & Plan (1) Wound of foot: Code(s): S91.309A - Unspecified open wound, unspecified foot, initial encounter Category: Medical (2) Controlled type 2 diabetes mellitus: Code(s): E11.9 - Type 2 diabetes mellitus without complications Category: Medical (3) Fatigue: Code(s): R53.83 - Other fatigue Category: Medical (4) Chronic heart failure with preserved ejection fraction (HFpEF): Code(s): I50.32 - Chronic diastolic (congestive) heart failure Category: Medical (5) CKD stage 4 due to type 2 diabetes mellitus: Code(s): E11.22 - Type 2 diabetes mellitus with diabetic chronic kidney disease; N18.4 - Chronic kidney disease, stage 4 (severe) Category: Medical (6) Anemia in chronic kidney disease (CKD): Code(s): N18.9 - Chronic kidney disease, unspecified; D63.1 - Anemia in chronic kidney disease Category: Medical Qualifiers: Chronic kidney disease stage: stage 3 (moderate) Chronic kidney disease stage 3 subtype: stage 3a (GFR 45-59) Qualified Code(s): N18.31 - Chronic kidney disease, stage 3a; D63.1 - Anemia in chronic kidney disease (7) History of amputation of right third toe: Code(s): Z89.421 - Acquired absence of other right toe(s) Category: Surgical Plan In summary this is a very complex 54-year-old male who I am seeing for the 1st time today status post ER visit for right lower extremity edema and anemia requiring transfusion. Patient currently afebrile. No discharge from the wound. He does have some mild erythema that has developed on the type of the foot appearing consistent with cellulitis. I ordered doxycycline. Side effects and administration reviewed. I sent pictures of his foot to Dr. Valverde today, and his office will call to schedule a follow up with the patient. I will also refer him urgently to Wound Care. I advised him to go to the emergency room if they redness advances or if he develops increased swelling of the extremity, increased pain, chills, fevers, worsening lethargy. He needs to have his CBC rechecked since he did receive a transfusion at the emergency department. He has a follow up with Nephrology next week. Notes indicate patient will be starting Procrit. Patient says he is aware of this. Continue to use a cane. Fall prevention reviewed. Seen by cardiology following ED. No evidence of heart failure exacerbation. Lower extremity ultrasound was negative for DVT. I will contact scheduling to arrange the pelvic ultrasound that was ordered by Dr. Pineda. Patient will schedule short term follow up with me. Orders: Orders TSH reflex Free T4 04/13/25 E11.22 - Type 2 diabetes mellitus with diabetic chronic kidney disease, I10 - Essential (primary) hypertension, I73.9 - Peripheral vascular disease, unspecified, N18.4 - Chronic kidney disease, stage 4 (severe), R53.83 - Other fatigue Vitamin B12 and Folate 04/13/25 D64.9 - Anemia, unspecified, E11.22 - Type 2 diabetes mellitus with diabetic chronic kidney disease, I10 - Essential (primary) hypertension, I73.9 - Peripheral vascular disease, unspecified, N18.4 - Chronic kidney disease, stage 4 (severe), R53.83 - Other fatigue IRON PROFILE 04/13/25 D64.9 - Anemia, unspecified, E11.22 - Type 2 diabetes mellitus with diabetic chronic kidney disease, I10 - Essential (primary) hypertension, I73.9 - Peripheral vascular disease, unspecified, N18.4 - Chronic kidney disease, stage 4 (severe), R53.83 - Other fatigue Complete Blood Count Auto Diff 04/13/25 E11.22 - Type 2 diabetes mellitus with diabetic chronic kidney disease, I10 - Essential (primary) hypertension, I73.9 - Peripheral vascular disease, unspecified, N18.4 - Chronic kidney disease, stage 4 (severe), R53.83 - Other fatigue Magnesium 04/13/25 E11.22 - Type 2 diabetes mellitus with diabetic chronic kidney disease, I10 - Essential (primary) hypertension, I73.9 - Peripheral vascular disease, unspecified, N18.4 - Chronic kidney disease, stage 4 (severe), R53.83 - Other fatigue Comprehensive Met. Panel 04/13/25 E11.22 - Type 2 diabetes mellitus with diabetic chronic kidney disease, I10 - Essential (primary) hypertension, I73.9 - Peripheral vascular disease, unspecified, N18.4 - Chronic kidney disease, stage 4 (severe), R53.83 - Other fatigue US pelvic limited 04/10/25 M79.89 - Other specified soft tissue disorders Referrals Wound Care Referral S91.309A - Unspecified open wound, unspecified foot, initial encounter, Z89.421 - Acquired absence of other right toe(s) Medications: New doxycycline hyclate 100 mg PO BID 20 tabs 0RF
[2025-04-13 11:03] VITALS: BP 140/60; PULSE 66; RESP 16; TEMP 37.1; O2SAT 96; BMI 36.5
--- OUTSIDE RECORDS SUMMARY | 2025-04-13 13:58 | XMS_ITS | Patient Health Record ---
Author Organization [facility] Address [address] [place] [address] Care Team Providers Care Manager Reliability Name Role Phone Quique Tatum N.P. 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 Section Notes: Smokes marijuana; occ alcoho l on the weekends Problems Problem Type SNOMED Code ICD Code Onset Dates Problem Status W/U Status Risk Notes Problem Colon cancer screening (069879223) Colon cancer screening (Z12.11) Active confirmed Problem Pre-procedure evaluation check (212413231) Encounter for other preprocedural examination (Z01.818) Active confirmed Problem Diverticular disease of colon (060615278) Diverticulosis of large intestine without perforation or abscess without bleeding (K57.30) Active confirmed Plan Of Treatment Pending Test Test Name Order Date Pathology 01/25/2024 Future Test Test Name Order Date COLONOSCOPY 10/01/2023 Insurance Providers Payer Name Payer Address Payer Phone Subscriber Number Group Number Insured Name Patient Relationship to Insured Coverage Start Date Coverage End Date ALEX [address] [place] [address] [id number] JORGE FONSECA Self - patient is the insured Medical (General) History Medical History History ICD Code Sleep apnea - CPAP machine 09/2023 DM Hypertension CKD stage 3 Anemia Hypercholesterolemia Denies [place],CVA,Lung disease Surgical History Surgery Date(Month/Year) [place] teeth Perirectal abscess -Dr. Valverde--[facility] for about a week 02/2022
== END 2025-04-13 12:13 | disposition home or self-care (01) ==
LOC: HO.HMCFM 10:52
PROVIDERS: PCP Physician Assistant Medical; Visit Provider Physician Assistant Medical
DX: E11.22 Type 2 diabetes mellitus with diabetic chronic kidney disease (principal); I50.32 Chronic diastolic (congestive) heart failure; N18.4 Chronic kidney disease, stage 4 (severe); S91.301A Unspecified open wound, right foot, initial encounter; D63.1 Anemia in chronic kidney disease; Z89.421 Acquired absence of other right toe(s)

== ENCOUNTER 2025-04-13 10:51 | Outpatient (REF) | payer OTHER, SELFPAY ==
[2025-04-13 15:12] LABS: MANUAL DIFF FLAG NO
[2025-04-13 15:21] LABS: Hematocrit 24.3 % (42.0-52.0); Hemoglobin 7.7 g/dl (14.0-18.0); Imm Gran Abs Auto 0.08 X10*3/uL (0.00-0.03); Imm Gran Pct Auto 0.7 % (0.0-0.4); Lymphocytes Absolute Auto 1.4 X10*3/uL (1.2-4.9); Mean Corpuscular HGB Conc 31.7 g/dl (31.0-36.0); Mean Corpuscular Hemoglobin 30.0 pg (27.0-33.0); Mean Corpuscular Volume 94.6 fL (80.0-98.0); NRBC Abs Auto 0.000 X10*3/uL (0.0-0.012); NRBC Pct Auto 0.0 /100WBC (0.0-0.2); Platelet Count 229 X10*3/uL (160-400); Red Blood Count 2.57 X10*6/uL (4.60-5.80); White Blood Count 11.1 X10*3/uL (4.8-10.8)
[2025-04-13 16:20] LABS: Alanine Aminotransferase 17 U/L (0-40); Albumin Level 3.4 g/dL (3.5-5.0); Alkaline Phosphatase 252 U/L (39-117); Anion Gap 12 (12-20); Aspartate Amino Transferase 32 U/L (5-37); Blood Urea Nitrogen 39 mg/dL (9-16); Calcium 8.6 mg/dL (8.4-10.2); Carbon Dioxide 19 mmol/L (22-29); Chloride 108 mmol/L (96-108); Estimated Glomerular Filt Rate 22; Ferritin 568 ng/mL (20-250); Iron 17 mcg/dL (45-160); Magnesium 2.4 mg/dL (1.6-2.6); Percent Iron Saturation 8 % (15-50); Potassium 5.2 mmol/L (3.3-5.1); Sodium 134 mmol/L (135-145); Total Iron Binding Capacity 205 mcg/dL (228-428); Total Protein 8.5 g/dL (6.5-8.0); Unsaturated Iron Binding 188 ug/dL
[2025-04-13 16:21] LABS: Folate 10.6 ng/mL (> or = 4.0); Vitamin B12 642 pg/mL (200-900)
== END 2025-04-13 10:52 | disposition home or self-care (01) ==
LOC: HO.WFDLDS 10:51
PROVIDERS: Internal Medicine Nephrology; PCP Physician Assistant Medical; Visit Provider Physician Assistant Medical
DX: E11.22 Type 2 diabetes mellitus with diabetic chronic kidney disease (principal); I13.0 Hypertensive heart and chronic kidney disease with heart failure and stage 1 through stage 4 chronic kidney disease, or unspecified chronic kidney disease; N18.4 Chronic kidney disease, stage 4 (severe); I50.32 Chronic diastolic (congestive) heart failure; E11.21 Type 2 diabetes mellitus with diabetic nephropathy; E11.51 Type 2 diabetes mellitus with diabetic peripheral angiopathy without gangrene; R53.83 Other fatigue; D64.9 Anemia, unspecified; S91.309A Unspecified open wound, unspecified foot, initial encounter; D63.1 Anemia in chronic kidney disease; Z89.421 Acquired absence of other right toe(s)
CPT/HCPCS: 36415; 80053; 82607; 82728; 82746; 83540; 83735; 84443; 85025

== ENCOUNTER 2025-04-21 08:22 | Outpatient (REF) | payer OTHER, SELFPAY ==
--- OUTSIDE RECORDS SUMMARY | 2024-01-25 04:30 | XMS_ITS ---
Author Organization [facility] Address [address] [place] [address] Care Team Providers Care Print Line Inspector Name Role Phone Quique Tatum N.P. Primary Care Provider Higinio Mcmahon Unavailable [phone] Velia Siddiqui Unavailable Unavailable REASON FOR VISIT screening Problems Problem Type SNOMED Code ICD Code Onset Dates Problem Status W/U Status Risk Notes Problem Diverticular disease of colon (156632817) Diverticulosis of large intestine without perforation or abscess without bleeding (K57.30) Active confirmed Encounters Encounter Location Date Provider Diagnosis [facility] [place] Outpatient [address] [place] [phone] 01/25/2024 Higinio Zhang Colon cancer scree shanthi [...] * SOO FONSECA:[birth year] (54 yo M)Acc No.[id number]:01/25/2024 COLON WITH MAC Patient: JORGE DURANT Provider: Nicanor Zhang MD :1970 A ge:53 Y S ex:Male Date:01/25/2024 Address:[address] [place] [address] , [facility] Pcp:Quique Tatum N.P. Subjective: * Chief Complaints: [...] Modifiers: 33 Billing Information: * Procedure Codes: 71675 LESION REMOVAL COLONOSCOPY. Modifiers: 33 * The named appointment provid er may or may not be the originator of this progress note, and it is not deemed complete until electronically signed by the appointment provider. Sign off status: Pending * Provider: Nicanor Zhang MD Date: 0 01/25/2024 Generated for Nikkie kelley/Steven/Franciscosmitting on: 1 06/22/2024 08:26 AM EST
--- OUTSIDE RECORDS SUMMARY | 2025-04-21 08:27 | XMS_ITS | Patient Health Record ---
Author Organization [facility] Address [address] [place] [phone] Care Team Providers Care Plastic Sewer Name Role Phone Quique Tatum N.P. 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: Smokes marijuana; occ alcoho l on the weekends Problems Problem Type SNOMED Code ICD Code Onset Dates Problem Status W/U Status Risk Notes Problem Colon cancer screening (507889264) Colon cancer screening (Z12.11) Active confirmed Problem Pre-procedure evaluation check (787279909) Encounter for other preprocedural examination (Z01.818) Active confirmed Problem Diverticular disease of colon (633254874) Diverticulosis of large intestine without perforation or abscess without bleeding (K57.30) Active confirmed Plan Of Treatment Pending Test Test Name Order Date Pathology 01/25/2024 Future Test Test Name Order Date COLONOSCOPY 10/01/2023 Insurance Providers Payer Name Payer Address Payer Phone Subscriber Number Group Number Insured Name Patient Relationship to Insured Coverage Start Date Coverage End Date ALEX [address] [place] [address] [id number] JORGE FONSECA Self - patient is the insured Medical (General) History Medical History History ICD Code Sleep apnea - CPAP machine 09/2023 DM Hypertension CKD stage 3 Anemia Hypercholesterolemia Denies [place],CVA,Lung disease Surgical History Surgery Date(Month/Year) [place] teeth Perirectal abscess -Dr. Valverde--in [facility] for about a week 02/2022
[2025-04-21 08:38] LABS: MANUAL DIFF FLAG NO
[2025-04-21 09:30] LABS: Hematocrit 24.3 % (42.0-52.0); Hemoglobin 7.9 g/dl (14.0-18.0); Imm Gran Abs Auto 0.10 X10*3/uL (0.00-0.03); Imm Gran Pct Auto 0.8 % (0.0-0.4); Lymphocytes Absolute Auto 1.1 X10*3/uL (1.2-4.9); Mean Corpuscular HGB Conc 32.5 g/dl (31.0-36.0); Mean Corpuscular Hemoglobin 30.0 pg (27.0-33.0); Mean Corpuscular Volume 92.4 fL (80.0-98.0); NRBC Abs Auto 0.000 X10*3/uL (0.0-0.012); NRBC Pct Auto 0.0 /100WBC (0.0-0.2); Platelet Count 300 X10*3/uL (160-400); Red Blood Count 2.63 X10*6/uL (4.60-5.80); White Blood Count 13.3 X10*3/uL (4.8-10.8)
[2025-04-21 10:10] LABS: Anion Gap 11 (12-20); Blood Urea Nitrogen 50 mg/dL (9-16); Calcium 8.7 mg/dL (8.4-10.2); Carbon Dioxide 21 mmol/L (22-29); Chloride 109 mmol/L (96-108); Estimated Glomerular Filt Rate 25; Iron 20 mcg/dL (45-160); Percent Iron Saturation 11 % (15-50); Potassium 4.4 mmol/L (3.3-5.1); Sodium 137 mmol/L (135-145); Total Iron Binding Capacity 179 mcg/dL (228-428); Unsaturated Iron Binding 159 ug/dL
== END 2025-04-21 08:23 | disposition home or self-care (01) ==
LOC: HO.LAB 08:22
PROVIDERS: Absent Provider Internal Medicine Nephrology; PCP Physician Assistant Medical; Visit Provider Physician Assistant Medical
DX: E11.22 Type 2 diabetes mellitus with diabetic chronic kidney disease (principal); E11.21 Type 2 diabetes mellitus with diabetic nephropathy; N18.4 Chronic kidney disease, stage 4 (severe); I12.9 Hypertensive chronic kidney disease with stage 1 through stage 4 chronic kidney disease, or unspecified chronic kidney disease; D63.1 Anemia in chronic kidney disease
CPT/HCPCS: 36415; 80048; 83540; 85025

== ENCOUNTER 2025-04-21 14:56 | Outpatient (AMB) | payer OTHER, SELFPAY ==
--- NOTE | 2025-04-21 14:57 | HO.NEPHOV ---
Vital Signs 04/21/25 15:09 Height 5 ft 8 in Weight 244 lb BMI 37.1 BP 160/70 H Blood Pressure Location Rt brachial Position Sitting Pulse 65 Pulse Source Pulse Oximeter Pulse Oximetry (%) 96 Oxygen Delivery Method Room Air Intake Visit Reasons: 1 mo f/u w/ labs-Conf Apartment House Manager Required: No Accompanied by: Self / Same As Patient Allergies No Known Allergies Allergy (Verified 04/21/25 15:12) HPI Comments Details: River was seen in follow up of his advanced CKD . He is diabetic and hypertensive with proteinuria. His ARB and Jardiance had on hold. He denies any active chest pain, shortness of breath, paroxysmal nocturnal dyspnea, orthopnea, joint swellings, epistaxis, sinusitis, skin rashes, history of renal artery stenosis, history of carotid stenosis, large, vomiting, diarrhea, hematuria. His serum creatinine has plateaued . His renal function is stable. He had PRBC recently and has seen Dr Siddiqui. 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 CKD (chronic kidney disease) stage 3, GFR 30-59 ml/min Sleep apnea Chronic heart failure with preserved ejection fraction (HFpEF) Elevated cholesterol Iron deficiency anemia Chronic renal insufficiency Diabetic nephropathy Acute heart failure with preserved ejection fraction (HFpEF) Necrotizing subcutaneous infection Surgical History History of amputation of right third toe Amputated toe of right foot (~02/24/25) History of pyloromyotomy Status post incision and drainage [place] teeth removed Family History Mother Diabetes Maternal Uncle Diabetes Sister Multiple sclerosis Father Liver failure Kidney failure Social History Household Members: Significant Other Both parents involved: No Caregiver staying overnight: No Housing: House Are you a primary manager long term care to a significant other at home: No Do you presently have visiting nurse or other home services: No 75 years or older and lives alone: No Alcohol intake: current Alcohol intake frequency: holidays/special occasions only Alcohol type: beer Patient Tobacco Use Status: Never used Tobacco Tobacco use type: Cigarette Years Smoked: 4 e-Cigarette/Vaping Use: Never Used Second Hand Smoke Exposure: No Substance Use Type: Marijuana Advance Directives Date on File: 05/07/23 service: No Current occupational status: employed Current occupation: [employer] Current occupational exposures/hazards: No Cognitive needs: No Hearing needs: No Vision needs: No Review of Systems Const All systems reviewed & are unremarkable except as noted in HPI and below Physical Exam Vital Signs: Last Vital Signs Pulse 65 04/21/25 15:09 BP 160/70 H 04/21/25 15:09 Pulse Ox 96 04/21/25 15:09 Oxygen Delivery Method Room Air 04/21/25 15:09 BMI result Body Mass Index 37.1 Const General: comfortable and no acute distress Orientation/consciousness: patient oriented x3 HEENT Head: Yes normocephalic Mouth: Normal oral and palatal mucosa present Eyes EOM: EOMs intact bilaterally Neck Neck: Yes supple Resp Auscultation: clear to auscultation bilaterally Cardio Jugular venous distension: no JVD Rate: regular rate Heart sounds: Murmur heart sound present GI Palpation (GI): Soft to palpation Auscultation: normal bowel sounds General: Yes no CVA tenderness Back/Spine/Pelvis Back: no CVA tenderness Skin General skin exam: no rashes or lesions noted Neuro General: patient oriented x3 and moves all extremities Extrem General: Yes no pedal edema Results Reviewed Nephrology Results: Hgb, (14.0-18.0) 7.9 g/dl L Today WBC, (4.8-10.8) 13.3 X10*3/uL H Today Plt Count, (160-400) 300 X10*3/uL Today Sodium, (135-145) 137 mmol/L Today Potassium, (3.3-5.1) 4.4 mmol/L Today Chloride, (96-108) 109 mmol/L H Today Carbon Dioxide, (22-29) 21 mmol/L L Today BUN, (9-16) 50 mg/dL H Today Creatinine, (0.5-1.4) 2.70 mg/dL H Today Calcium, (8.4-10.2) 8.7 mg/dL Today Renal US 06/04/23 Assessment & Plan Assessment & Plan (1) Hypertension: Code(s): I10 - Essential (primary) hypertension Category: Medical Qualifiers: Hypertension type: primary hypertension Qualified Code(s): I10 - Essential (primary) hypertension (2) CKD stage 4 due to type 2 diabetes mellitus: Code(s): E11.22 - Type 2 diabetes mellitus with diabetic chronic kidney disease; N18.4 - Chronic kidney disease, stage 4 (severe) Category: Medical (3) Diabetic nephropathy: Code(s): E11.21 - Type 2 diabetes mellitus with diabetic nephropathy Category: Medical Qualifiers: Diabetes mellitus type: type 2 Qualified Code(s): E11.21 - Type 2 diabetes mellitus with diabetic nephropathy (4) Anemia in chronic kidney disease (CKD): Code(s): N18.9 - Chronic kidney disease, unspecified; D63.1 - Anemia in chronic kidney disease Category: Medical Qualifiers: Chronic kidney disease stage: stage 3 (moderate) Chronic kidney disease stage 3 subtype: stage 3a (GFR 45-59) Qualified Code(s): N18.31 - Chronic kidney disease, stage 3a; D63.1 - Anemia in chronic kidney disease Plan River has 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 He has obesity. He has underlying diabetic nephropathy. He has H/O decompensated diastolic heart failure. His CKD 4 is stable . His ARB and Jardiance has been put on hold. His urine output is good. He does not need renal replacement now. He was counseled to maintain good blood pressure and good blood sugar control. His anemia is due to advanced CKD. I am planning to give him Procrit through my office but not approved by insurance yet. All these have been discussed in detail. Further management is pending evolving data. All questions answered. Follow-up appointment given Orders: Orders Blood Urea Nitrogen 3 Weeks E11.21 - Type 2 diabetes mellitus with diabetic nephropathy, E11.22 - Type 2 diabetes mellitus with diabetic chronic kidney disease, I10 - Essential (primary) hypertension, N18.4 - Chronic kidney disease, stage 4 (severe) Complete Blood Count Auto Diff 3 Weeks E11.21 - Type 2 diabetes mellitus with diabetic nephropathy, E11.22 - Type 2 diabetes mellitus with diabetic chronic kidney disease, I10 - Essential (primary) hypertension, N18.4 - Chronic kidney disease, stage 4 (severe) Creatinine 3 Weeks E11. - Type 2 diabetes mellitus with diabetic nephropathy, E11. - Type 2 diabetes mellitus with diabetic chronic kidney disease, I10 - Essential (primary) hypertension, N18.4 - Chronic kidney disease, stage 4 (severe) Electrolytes 3 Weeks E11. - Type 2 diabetes mellitus with diabetic nephropathy, E11.22 - Type 2 diabetes mellitus with diabetic chronic kidney disease, I10 - Essential (primary) hypertension, N18.4 - Chronic kidney disease, stage 4 (severe) Coding Level of Care Code Est Pt Level 4 (24723) Diagnoses Primary hypertension I10 Hypertension type: primary hypertension CKD stage 4 due to type 2 diabetes mellitus E11.; N18.4 Diabetic nephropathy associated with type 2 diabetes mellitus E11. Diabetes mellitus type: type 2 Anemia in stage 3a chronic kidney disease N18.31; D63.1 Chronic kidney disease stage: stage 3 (moderate) Chronic kidney disease stage 3 subtype: stage 3a (GFR 45-59)
[2025-04-21 15:09] VITALS: BP 160/70; PULSE 65; O2SAT 96; BMI 37.1
== END 2025-04-21 15:28 | disposition home or self-care (01) ==
LOC: HO.HKA 14:57
PROVIDERS: Visit Provider Internal Medicine Nephrology
DX: I12.9 Hypertensive chronic kidney disease with stage 1 through stage 4 chronic kidney disease, or unspecified chronic kidney disease (principal); E11.22 Type 2 diabetes mellitus with diabetic chronic kidney disease; N18.4 Chronic kidney disease, stage 4 (severe); E11.21 Type 2 diabetes mellitus with diabetic nephropathy; N18.31 Chronic kidney disease, stage 3a; D63.1 Anemia in chronic kidney disease
CPT/HCPCS: 99214

== ENCOUNTER 2025-04-24 13:47 | Outpatient (REF) | payer OTHER, SELFPAY ==
--- OUTSIDE RECORDS SUMMARY | 2024-01-25 04:30 | XMS_ITS ---
Author Organization [facility] Address [address] [place] [id number] Care Team Providers Care Brim Edge Trimmer Name Role Phone Quique Tatum N.P. Primary Care Provider Higinio Mcmahon Unavailable [phone] Velia Siddiqui Unavailable Unavailable REASON FOR VISIT screening Problems Problem Type SNOMED Code ICD Code Onset Dates Problem Status W/U Status Risk Notes Problem Diverticular disease of colon (856113817) Diverticulosis of large intestine without perforation or abscess without bleeding (K57.30) Active confirmed Encounters Encounter Location Date Provider Diagnosis [facility] [place] [address], [place] [phone] 01/25/2024 Higinio Zhang Colon cancer scree shanthi Z12.11 ; Colon polyp K63.5 ; Diverticulosis of large intestine without perforation or abscess without bleeding K57.30 and Other hemorrhoids K64.8 Assessments Encounter Date Diagnosis (ICD Code) Assessment Notes Treatment Notes Treatment Clinical Notes Section Notes 01/25/2024 Colon cancer screening (ICD-10 - Z12.11) 01/25/2024 Colon polyp (ICD-10 - K63.5) 01/25/2024 Diverticulosis of large intestine without perforation or abscess without bleeding (ICD-10 - K57.30) 01/25/2024 Other hemorrhoids (ICD-10 - K64.8) Plan Of Treatment No Information Progress Notes * SOO FONSECA:[birth year] (54 yo M)Acc No.[id number]:01/25/2024 COLON WITH MAC Patient: JORGE DURANT Provider: Nicanor Zhang MD :1970 A ge:53 Y S ex:Male Date:01/25/2024 Address:[address] [place] [address] , [facility] Pcp:Quique Tatum N.P. Subjective: * Chief Complaints: * S creening Assessment: * Assessment: 1. C olon cancer screening - Z12.11 (Primary) 2 . C olon polyp - K63.5 3 . D iverticulosis of large intestine without perforation or abscess without bleeding - K57.30 4 . O ther hemorrhoids - K64.8 Plan: * Procedure Codes: 4 5385 LESION REMOVAL COLONOSCOPY, Modifiers: 33 Billing Information: * Procedure Codes: 56291 LESION REMOVAL COLONOSCOPY. Modifiers: 33 * The named appointment provid er may or may not be the originator of this progress note, and it is not deemed complete until electronically signed by the appointment provider. Sign off status: Pending * Provider: Nicanor Zhang MD Date: 0 01/25/2024 Generated for Nikkie kelley/Steven/Franciscosmitting on: 1 04:05 PM EST
--- NOTE | ~2025-04-24 | US_ITS ---
EXAMINATION: US TRIPLEX LOWER EXTREMITY, RIGHT CLINICAL INFORMATION: Looking for thrombosis of the common iliac or external iliac vein. Pain and swelling. COMPARISON: Previous CT of the abdomen and pelvis October 2024 and right lower extremity venous ultrasound exams most recent April 06, 2025 TECHNIQUE: Color-flow triplex imaging with spectral analysis and compression Doppler were performed on the right lower extremity. Exam is limited due to edema. FINDINGS: Respiratory variation, normal compression and augmented flow are noted throughout the right lower extremity. The visualized common femoral vein, superficial femoral vein, profunda femoral vein, popliteal vein and midcalf posterior tibial venous segments show no evidence of deep venous thrombosis. The peroneal vein is not visualized. The right common iliac vein is not visualized. The right external iliac vein is visualized and appears patent without thrombus. There is no Tse's cyst. US/US venous duplex LE RT IMPRESSION: Limited exam due to edema. No evidence of deep venous thrombosis involving the right lower extremity. The right peroneal vein is not visualized. The right external iliac vein is visualized and appears patent. The right common iliac vein is not visualized. Electronically signed by: Dolores Allen MD 04/24/2025 03:14 PM EST
--- OUTSIDE RECORDS SUMMARY | 2025-04-24 16:05 | XMS_ITS | Patient Health Record ---
Author Organization [facility] Address [address] [place] [phone] Care Team Providers Care Rolling Up Machine Operator Name Role Phone Quique Tatum N.P. 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: Smokes marijuana; occ alcoho l on the weekends Problems Problem Type SNOMED Code ICD Code Onset Dates Problem Status W/U Status Risk Notes Problem Colon cancer screening (154516682) Colon cancer screening (Z12.11) Active confirmed Problem Pre-procedure evaluation check (728244081) Encounter for other preprocedural examination (Z01.818) Active confirmed Problem Diverticular disease of colon (400303265) Diverticulosis of large intestine without perforation or abscess without bleeding (K57.30) Active confirmed Plan Of Treatment Pending Test Test Name Order Date Pathology 01/25/2024 Future Test Test Name Order Date COLONOSCOPY 10/01/2023 Insurance Providers Payer Name Payer Address Payer Phone Subscriber Number Group Number Insured Name Patient Relationship to Insured Coverage Start Date Coverage End Date ALEX [address] [place] [address] [phone] [id number] JORGE FONSECA Self - patient is the insured Medical (General) History Medical History History ICD Code Sleep apnea - CPAP machine 09/2023 DM Hypertension CKD stage 3 Anemia Hypercholesterolemia Denies [place],CVA,Lung disease Surgical History Surgery Date(Month/Year) [place] teeth Perirectal abscess -Dr. Valverde--in [facility] for about a week 02/2022
== END 2025-04-24 13:48 ==
LOC: HO.US 13:47
PROVIDERS: Visit Provider Physician Assistant Medical
DX: M79.89 Other specified soft tissue disorders (principal)
CPT/HCPCS: 93971

== ENCOUNTER → 2025-04-24 13:47 | Outpatient (BNV) | payer OTHER, SELFPAY | PROVIDERS: Visit Provider Radiology Diagnostic Radiology | DX: R22.41 Localized swelling, mass and lump, right lower limb (principal) | CPT/HCPCS: 93971 ==

== ENCOUNTER 2025-04-26 10:46 | Outpatient (AMB) | payer OTHER, SELFPAY ==
--- OUTSIDE RECORDS SUMMARY | 2024-01-25 04:30 | XMS_ITS ---
Author Organization [facility] Address [address] [place] [address] Care Team Providers Care Motorcycle Designer Name Role Phone Quique Tatum N.P. Primary Care Provider Higinio Mcmahon Unavailable [phone] Velia Siddiqui Unavailable Unavailable REASON FOR VISIT screening Problems Problem Type SNOMED Code ICD Code Onset Dates Problem Status W/U Status Risk Notes Problem Diverticular disease of colon (857247363) Diverticulosis of large intestine without perforation or abscess without bleeding (K57.30) Active confirmed Encounters Encounter Location Date Provider Diagnosis [facility] [place] [address], [place] [phone] 01/25/2024 Higinio Zhang Colon cancer scree shanthi [...] * SOO FONSECA:[birth year] (54 yo M)Acc No.[id number]:01/25/2024 COLON WITH MAC Patient: JORGE DURANT Provider: Nicanor Zhang MD :1970 A ge:53 Y S ex:Male Date:01/25/2024 Address:[address] [place] [address] , [facility] Pcp:Quique Tatum N.P. Subjective: * Chief Complaints: [...] Modifiers: 33 Billing Information: * Procedure Codes: 76590 LESION REMOVAL COLONOSCOPY. Modifiers: 33 * The named appointment provid er may or may not be the originator of this progress note, and it is not deemed complete until electronically signed by the appointment provider. Sign off status: Pending * Provider: Nicanor Zhang MD Date: 0 01/25/2024 Generated for Nikkie kelley/Steven/Franciscosmitting on: 1 12:09 PM EST
--- NOTE | 2025-04-26 10:56 | MHC.OFFVIS ---
Vital Signs 04/26/25 11:01 Height 5 ft 8 in Weight 244 lb BMI 37.1 BP 147/67 H Blood Pressure Location Rt brachial Position Sitting Pulse 71 Intake Visit Reasons: Wound check/infected Intake Note: Patient referred by wound care center for ? infection next to Rt toe amputation. Patient c/o: bleeding, oozing yellowish discharge. Finished Doxycycline 100mg course a couple days ago. Patient feeling cold. No fever. Aircraft Manager Required: No Accompanied by: Self / Same As Patient Allergies No Known Allergies Allergy (Verified 04/26/25 11:04) Medication List - Last Reconciled 04/26/25 by Rafiq Ac MD acetaminophen 1,000 mg PO BID PRN atorvastatin (Lipitor) 40 mg PO BEDTIME 90 days blood sugar diagnostic (FreeStyle Lite Strips) Test four times a day or as directed. blood-glucose meter (FreeStyle Lite Meter kit) As Directed carvedilol 25 mg See Protocol PO BID cholecalciferol (vitamin D3) 50 mcg PO BEDTIME clonidine HCl 0.2 mg PO TID 90 days comp.stocking,knee,long,medium As directed cyclobenzaprine 10 mg PO TID PRN fenofibrate 54 mg PO DAILY fluticasone propionate 50 mcg/actuation 2 sprays intranasal BID PRN furosemide 40 mg PO BID hydralazine 50 mg See Protocol PO TID insulin glargine (Basaglar KwikPen U-100 Insulin) 12 units (0.12 mL) subcut DAILY@1700 insulin lispro (Humalog KwikPen (U-100) Insulin) See Protocol sliding scale doses subcut QIDACHS isosorbide mononitrate ER 30 mg See Protocol PO DAILY lancets (FreeStyle Lancets) TEST FOUR TIMES A DAY OR DIRECTED. multivitamin 1 tab PO DAILY omega-3 fatty acids-fish oil 684-1,200 mg 1 cap PO DAILY pen needle, diabetic USE FOUR TIMES A DAY OR DIRECTED. sodium polystyrene sulfonate 30 grams PO MOWEFR@0900 zinc acetate 25 mg PO DAILY HPI Comments Details: 54-year-old diabetic male presents from wound clinic today. He has a history of Charcot foot on the right side in severe peripheral vascular disease secondary to uncontrolled diabetes. In January of this year he underwent a 3rd toe amputation and ?it never healed?. He has had open wound that he has been managing ever since. He finished a course of doxycycline was sent from wound clinic because ?they did not know what to do with the wound?. He reports that he has been feeling systemically ill with fevers and chills at home. He denies any recent sick contacts. He denies any nausea or vomiting. He reports that his blood sugars at home have not been under control. 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 CKD (chronic kidney disease) stage 3, GFR 30-59 ml/min Sleep apnea Chronic heart failure with preserved ejection fraction (HFpEF) Elevated cholesterol Iron deficiency anemia Chronic renal insufficiency Diabetic nephropathy Acute heart failure with preserved ejection fraction (HFpEF) Necrotizing subcutaneous infection Surgical History History of amputation of right third toe Amputated toe of right foot (~02/24/25) History of pyloromyotomy Status post incision and drainage [place] teeth removed Family History Mother Diabetes Maternal Uncle Diabetes Sister Multiple sclerosis Father Liver failure Kidney failure Social History Household Members: Significant Other Housing: House Are you a primary associate director career services to a significant other at home: No Do you presently have visiting nurse or other home services: No Alcohol intake: current Alcohol intake frequency: holidays/special occasions only Alcohol type: beer Patient Tobacco Use Status: Never used Tobacco Tobacco use type: Cigarette Years Smoked: 4 e-Cigarette/Vaping Use: Never Used Second Hand Smoke Exposure: No Substance Use Type: Marijuana Advance Directives Date on File: 05/07/23 service: No Current occupational status: employed Current occupation: [employer] Current occupational exposures/hazards: No Cognitive needs: No Hearing needs: No Vision needs: No Review of Systems Const All systems reviewed & are unremarkable except as noted in HPI and below Physical Exam Vital Signs: Last Vital Signs Pulse 71 04/26/25 11:01 BP 147/67 H 04/26/25 11:01 BMI result Body Mass Index 37.1 Const General: ill appearing acutely, lethargic and tired appearing Nutritional Appearance: obese morbidly obese Orientation/consciousness: lethargic HEENT Head: Yes normal to inspection Neck Neck: Yes normal visual inspection Chest Chest palpation & inspection: normal inspection of the chest Resp Other: Patient appears somewhat short of breath and dyspneic at rest in a chair. Cardio Rate: regular rate Rhythm: regular rhythm GI Inspection: Yes normal to inspection Extrem Other: Open wound where the 3rd toe on his right foot used to be. Fibrinous exudate and pseudo granulation in the wound bed. No active bleeding. Obvious Charcot ankle on the right with microvascular insufficiency. The forefoot feels very warm to the touch. Patient reports that he is insensate below the ankle. This is nothing new for him. Pulses not appreciated but skin and tissues are chronically thickened most likely secondary from a cerula environment. No other evidence of skin breakdown or deficits in the right foot or right lower extremity. Assessment & Plan Assessment & Plan (1) Diabetic foot infection: Code(s): E11.628 - Type 2 diabetes mellitus with other skin complications; L08.9 - Local infection of the skin and subcutaneous tissue, unspecified Category: Medical Plan: I told the patient that I suspected he had a infection involving his right lower extremity and overall that he did not appear well. Recommended that he present himself to the emergency department for evaluation. He may benefit from intravenous antibiotics, aggressive metabolic management and Podiatry consideration. He indicated that he understood and also indicated that he agree with my assessment and said he would follow through with the plan as it was outlined to him. He was escorted down to the emergency department. Coding Level of Care Code New Pt Level 4 (62139) Diagnoses Diabetic foot infection E11.628; L08.9 Time Spent (min) 45 Comment Record review patient visit and coordination of care time
[2025-04-26 11:01] VITALS: BP 147/67; PULSE 71; BMI 37.1
--- OUTSIDE RECORDS SUMMARY | 2025-04-26 12:10 | XMS_ITS | Patient Health Record ---
Author Organization [facility] Address [address] [place] [address] Care Team Providers Care Programmable Logic Controller Assembler Name Role Phone Quique Tatum N.P. 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: Smokes marijuana; occ alcoho l on the weekends Problems Problem Type SNOMED Code ICD Code Onset Dates Problem Status W/U Status Risk Notes Problem Colon cancer screening (933204726) Colon cancer screening (Z12.11) Active confirmed Problem Pre-procedure evaluation check (487206025) Encounter for other preprocedural examination (Z01.818) Active confirmed Problem Diverticular disease of colon (016294926) Diverticulosis of large intestine without perforation or abscess without bleeding (K57.30) Active confirmed Plan Of Treatment Pending Test Test Name Order Date Pathology 01/25/2024 Future Test Test Name Order Date COLONOSCOPY 10/01/2023 Insurance Providers Payer Name Payer Address Payer Phone Subscriber Number Group Number Insured Name Patient Relationship to Insured Coverage Start Date Coverage End Date ALEX [address] [place] [address] [phone] [id number] JORGE FONSECA Self - patient is the insured Medical (General) History Medical History History ICD Code Sleep apnea - CPAP machine 09/2023 DM Hypertension CKD stage 3 Anemia Hypercholesterolemia Denies [place],CVA,Lung disease Surgical History Surgery Date(Month/Year) [place] teeth Perirectal abscess -Dr. Valverde--in [facility] for about a week 02/2022
== END 2025-04-26 11:17 | disposition home or self-care (01) ==
LOC: HO.HGS 10:47
PROVIDERS: Visit Provider Surgery
DX: E11.628 Type 2 diabetes mellitus with other skin complications (principal); L08.9 Local infection of the skin and subcutaneous tissue, unspecified
CPT/HCPCS: 99024

== ENCOUNTER → 2025-04-26 11:50 | Outpatient (BNV) | payer OTHER, SELFPAY | PROVIDERS: PCP Physician Assistant Medical; Visit Provider Radiology Diagnostic Radiology | DX: R06.02 Shortness of breath (principal); M86.171 Other acute osteomyelitis, right ankle and foot | CPT/HCPCS: 71045; 73630 ==

== ENCOUNTER → 2025-04-26 16:35 | Outpatient (BNV) | payer OTHER, SELFPAY | PROVIDERS: Admitting Provider Internal Medicine; Emergency Provider Emergency Medicine Emergency Medical Services; PCP Physician Assistant Medical; Visit Provider Internal Medicine | DX: R06.02 Shortness of breath (principal) | CPT/HCPCS: 93010 ==

== ENCOUNTER → 2025-04-26 17:06 | Outpatient (BNV) | payer OTHER, SELFPAY | PROVIDERS: Admitting Provider Internal Medicine; Emergency Provider Emergency Medicine Emergency Medical Services; PCP Physician Assistant Medical; Visit Provider Internal Medicine | DX: E11.65 Type 2 diabetes mellitus with hyperglycemia (principal); M86.8X7 Other osteomyelitis, ankle and foot | CPT/HCPCS: 99222 ==

== ENCOUNTER → 2025-04-26 17:06 | Outpatient (BNV) | payer OTHER, SELFPAY | PROVIDERS: Admitting Provider Internal Medicine; Emergency Provider Emergency Medicine Emergency Medical Services; PCP Physician Assistant Medical; Visit Provider Internal Medicine | DX: I10 Essential (primary) hypertension (principal) | CPT/HCPCS: 99233 ==

== ENCOUNTER → 2025-04-26 17:06 | Outpatient (BNV) | payer OTHER, SELFPAY | PROVIDERS: Admitting Provider Internal Medicine; Emergency Provider Emergency Medicine Emergency Medical Services; PCP Physician Assistant Medical; Visit Provider Surgery | DX: E11.628 Type 2 diabetes mellitus with other skin complications (principal); L08.9 Local infection of the skin and subcutaneous tissue, unspecified | CPT/HCPCS: 10180; 99024; 99222 ==